=== PATIENT | male | born 1940 | race Caucasian/White ===

== ENCOUNTER 2017-10-12 12:00 | Outpatient (RCR) | payer MEDICARE, SELFPAY ==
--- NOTE | 2017-08-27 09:59 | HP.PTEVAL ---
Patient's Visit Information MAYRA DIETZ is a 77 year old M referred to Physical Therapy by LORENZO Guthrie with a diagnosis of debility, intracranial hemmorhage. Date of Evaluation: 08/27/17 Physical Therapist: Polo Bedolla DPT, OC - Visit Plan Frequency: 3x /Week Duration: 4-6 Weeks Plan: 3x/week for 3-6 weeks for. 1. foam balance and functional weight shift. 2. golf swing. 3. VOR and gait with head movements. 4. turns and bends - Subjective Subjective: Fall and hit L side of head. Operation to drain blood from brain late June, fall was early June. Out of hospital 3 weeks ago going to rehab in hospital and out one week ago. Been home since. No pain, no dizzy, no numbness. 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 Drop stuff with R hand and is R handed. R shoulder is arthritic and weak and hard to lift as it fatigues quickly. Balance is a major problem also. Doesn't trust self without cane. Uses it most of time. Didn't need cane before fall. Fall was in bedroom for unknown reason and was not a recurring problem. Will need speech to get the right word out. No weakness noted in legs but feels tired. Has steps to mancave and can do them with handrail. Enjoys golf and fishing when healthy. Basic ADLS mobility are OK. - Objective has pacemaker and defibrillator. Transfers I chair and bed. Gait is I with cane, somewhat unsteady without cane. Steps are reciprocal and I with rail. reflexes 2/3 patella and achilles. Sensation WNL in LE to gross light touch. Strength 4+/5 in LE. LE AROM WFL. UE AROM WFL except R shoulder ext rotation mildly limited and weak in ext rotation 3/5. coordination LE reciprocal tapping OK and heel to fernandez OK. Hamstring moderately tight. Gastroc min tight. - drop arm and - ext rotation lag test, no pain in shoulder, just very weak in ext rotation. - Balance Scores Functional Gait Assessment Score: 19 % Disability: 36.6700 CATSIB Score (Max score 120 seconds): 82 - Goals Goal 1:: 24/30 FGA to diminish fall risk. Goal Time Frame: 4-6 Weeks Goal 2:: Patient ready to swing golf club without imbalance. Goal Time Frame: 4-6 Weeks Goal 3:: I approp HEP to minimize fall risk. Goal Time Frame: 4-6 Weeks - Rehabilitation Potential Physical Therapy Diagnosis: imbalance. Ko has weakness in shoulder. IN discussion with OT, they will handle this while working on his UE. Rehabilitation Potential: Fair - Anticipated Interventions Patient/Client Instruction: Educate patient on: Condition, Plan of Care, Risk Factors For the Purpose of:: To improve safety with gait Therapeutic Exercise to Include: Balance training, Gait and locomotor training For the Purpose of:: To improve ability of physical actions for home/community/work/leisure, To improve safety Thank you for the opportunity to evaluate your patient. For Medicare and Medicare HMO plans, please review the plan of care and approve it. It will need to be FAXED BACK to us at [phone] for Medicare purposes. Please let me know if there are questions or concerns regarding this plan of care. Physician Signature: Date:
--- NOTE | 2017-08-27 14:00 | HP.OTEVAL_ITS ---
Patient's Visit Information MAYRA DIETZ is a 77 year old M, referred to Occupational Therapy by Krystal Smith , MICHIC,, with a diagnosis of fall-related intracranial hemorrhage s/pcraniotomy. Date of Evaluation: 08/27/17 Occupational Therapist: Ev Rahman - Subjective Subjective: Pt., Mayra, had fall july 03 and he was admitted into [facility]. present for evaluation and noted that while in hospital he has multiple seizures. HE was transferred up to [place] in which craniotomy was preformed to help decrease pressure on brain as is was continuing to swell. While in [place] [facility] after surgery he was intubated due to having a couple more seizures. He has not had seizure since per report and Pt. report. - Pain Right Shoulder 0 Pain Intensity Range: 0 - ROM Shoulder: flexion R 0-134, L 0-137; extentsion R 0-41, L 0-42; Forearm: WFL Wrist: WFL MP: WFL PIP: WFL DIP: WFL ROM Comments: abduction R 0-133, L 0-166 - Strength Shoulder: R 3+/5, L 4/5 Elbow: R 3+/5, L 4/5 Forearm: R 3+/5, L 4/5 Wrist: R 3+/5, L 4/5 Planer Setup Operator: R 75, L 79 Lateral Pinch: R 15, L 13 Tripod Pinch: R unable, L 12 Tip-to-Tip Pinch: R 6, L 8 - Sensation Thumb: R 3.22, L 3.22 Index: R 3.61, L 3.22 Middle: R3.22, L 2.83 Ring: R 3.84, L 3.61 Little: R 3.22, L 3.22 - In-Hand Manipulation Palm to Finger Translation: Severe - Right, Normal - Left, Mild - Left Shift: Moderate - Right, Mild - Left Rotation: Mild - Right, Normal - Left - Stroke Specific Quality of Life Total SS-QOL Score: 55 - DASH-Disabilities of Arm, Shoulder& Hand DASH Sum: 103 - Goals Goal:: Pt. to increase R sustain engineer strength by 15-20 lbs to promote increased strength in R dominant hand for ADl/IADls 4/5 trials 80% of the time by d/c. Goal:: Pt. to increase finger dexterity of R dominant hand through decreased time to that equal to L hand on 9 hole pegbaord test 2/3trials 75%of the time by d/c. Goal:: Pt. to demon understanding and completion of sensory re-integration program for R hand to increase touch sensation to that of L hand 4/5 trials 80% of the time by d/c. Goal:: Pt. to be mod I return to all ADL/IADLs 4/5 trials 8)5 of the time by d/ c. Goal:: Pt. to be mod I to write three sentences of choice to promote increased ( I) and ability to complete handwriting tasks 4/5 traisl 80% of the time by d/c. - Rehabilitation General Assessment: Pt., Mayra Walsh, presents with R UE weakness. He is R hand dominant and notes using R hand for most all tasks. He will recieve OT services to promote increasing B UE strength, sustain engineer and FMC strength, finger dexterity, B hand control and manipulation tasks to promote reutrning to PLOF and all ADl/IADls to increased (I) and safety with all daily tasks. Rehabilitation Potential: Excellent - Anticipated Interventions Anticipated Interventions: A/AAROM/PROM, Strengthening, Joint Protection/Energy Conservation, Ergonomic Education, Dynamic Sitting Balance, Fine Motor Coord/ Filiberto, Neuro Reeducation, Cognitive Skills, ADL Training, Caregiver Training, Home Program - Visit Plan Frequency: 2x /Week Duration: 4-6 Weeks TEXT: Thank you for the opportunity to evaluate your patient. For Medicare and Medicare HMO plans, please review the plan of care and approve it. It will need to be FAXED BACK to us at [phone] for Medicare purposes. Please let me know if there are questions or concerns regarding this plan of care. Physician Signature: Date:
--- NOTE | 2017-08-28 13:15 | HP.SP.AD ---
History - History Date of Eval: 08/27/17 Medical Diagnosis (from RX): debility s/p craniotomy Previous speech therapy: Yes Results: Pt received ST services in [facility] for primarily word finding deficits. Other Relevant Medical History/Diagnoses/Surgery: Pt had a fall which resulted in a craniectomy relieve pressure. Pt was at [facility], then [facility], back to [facility], and back to [facility]. Medications related to this diagnosis: Keppa, Tikosyn, Mexiletine, Atorvastatin, Bumex, Coreg, Isosorbide, Levothyroxine, Magox, Multivitamin, Ranexa, Ropinerole, Probiotic, aspirin, potassium Smoking Status: Never smoker Hx Smoking: No Hx Tobacco Use: No - Pain Is pain an issue with your current prescribed condition?: No - Personal Occupation: retired Right Hearing Abillity: Hard of Hearing Visual Assistive Devices: Glasses Patients Living Arrangements: With Significant Other Patient Allergies - Allergies Allergies amiodarone Allergy (Verified 07/04/17 16:12) Other meperidine [From Demerol] Allergy (Verified 07/04/17 16:12) Low blood pressure spironolactone Allergy (Verified 07/04/17 16:12) Nausea CLQT - CLQT CLQT Administered: Yes CLQT: Cognitive Linguistic Quick Test (CLQT) is a criterion - referenced assessment designed for adults between the ages of 18 and 89 with known or suspected neurological dysfuntions. The CLQT is to assess strength and weaknesses in five cognitive domains. Severity ratings are within normal limits, mild, moderate, severe deficits. The subtests are as follows: Date: 08/28/17 - Memory Memory: WNL - Language Language: WNL - Clock Drawing Severity Rating Clock Drawing Severity Rating: WNL - CLQT Comments Description Pt completed subtests of the assessment and will complete assessment during following session. Pt strengths were symbol cancellation, clock drawing, confrontation naming, personal information, and naming animals. Pt weaknesses were symbol design as pt made self-correction, recall of story, and naming words with /m/. Plan - Plan Plan: ST is warranted due to deficits in cognitive-linguistics specifically at this time memory, word finding, processing, and sequencing with additional deficits possible. - Frequency Frequency: 1x/Week Duration: 3 Months - Prognosis Prognosis: Excellent - Goal #1-5 Goal #1: Pt will use external vs internal memory strategies to address language deficits to enhance processing and recall of information. Prompts: Min Accuracy: 80% # Sessions: 3/4 Goal #2: Pt will utilize strategies (circumlocution) to assist with word finding for specific word or similar word for functional speech and joke telling. Prompts: Min Accuracy: 80% # Sessions: 3/4 Goal #3: Pt will sequence at least 4 steps in activites including joke telling for increased quality of life. Prompts: Min Accuracy: 80% # Sessions: 3/4 Goal #4: Pt will complete additional cognitive-linguistic assessments for goal addition or modification. G Codes - Type of Therapy Type of Therapy: Speech-Language Pathology - Spoken Language Expression Spoken Language Expression Current: CJ - 20-39% Spoken Language Expression Goal: CI - 1-19% Education - Patient has Indicated that the Following Identified Educational Needs: Cognitively Impaired - Patient Instruction Patient Education: Treatment Plan, Goals Person Taught: Patient, Significant Other Teaching Method: Discussion, Demonstration Response to teaching: Verbalize understanding, Has Prior Knowledge
--- NOTE | 2017-09-14 12:26 | HP.PTREVAL_ITS ---
Krystal Smith, CLARI-C, It has been my pleasure to treat MAYRA DIETZ over the last 10 visits for debility, intracranial hemmorhage. Please see the progress note below for an update on the physical therapy plan of care! Subjective: A lot better balance. Able to do things. Lifting utensils easier. No trouble anymore with steps. Basic ADLs are good. Able to swing gently at home a golf club. Activities are close to normal. Walking at home without cane , getting out of chair is still challenging at times. Cane is used stillaout and about as security. Wants to keep going with PT for balance. Stepping over items is still challenging. Objective/Function: foam balance ec still tough at 4 seconds. Golf swing is better but lacks weight shift on backswing adn is slow. FGA is +5 and improving nicely. VOR walking is going the right way. OVERALL MUCH IMPROVED BUT STILLS OME WORK TO DO ON UPPER LEVEL BALANCE AND WEIGHT SHIFTS. Plan Plan: 3x/week for 2-3 for. 1. foam balance. 2. wweight shifts functional with golf swing and step overs as well as narrow VENTURA. Progress to HEP. Continue steps and stand from low surface for balance and strength. Goals Goal 1:: FGA to diminish fall risk. Goal Time Frame: 4-6 Weeks Goal Progress: Goal Met Goal 2:: Patient ready to swing golf club without imbalance. Goal Time Frame: 4-6 Weeks Goal Progress: Progressing Goal 3:: I approp HEP to minimize fall risk. Goal Time Frame: 4-6 Weeks Goal Progress: Goal Met Goal 4:: FGA Goal Time Frame: 2-4 Weeks Goal Progress: NEW GOAL Goal 5:: Swing golf club in basement iwthout hesitation Goal Time Frame: 2-4 Weeks Goal Progress: NEW GOAL Anticipated Interventions Patient/Client Instruction: Educate patient on: Condition, Plan of Care, Risk Factors For the Purpose of:: To improve safety with gait Therapeutic Exercise to Include: Balance training, Gait and locomotor training For the Purpose of:: To improve ability of physical actions for home/community/ work/leisure, To improve safety Please do not hesitate to contact me at [phone] by phone or Fax: if you have questions or concerns regarding this new plan of care! Sincerely, Polo Bedolla, DPT, OC
--- NOTE | 2017-09-21 11:58 | HP.OTDCSUM_ITS ---
HP - OT D/C Summary It has been my pleasure to treat MAYRA DIETZ under orders from LORENZO Guthrie , for the diagnosis of fall-related intracranial hemorrhage s/pcraniotomy for a total of 8 visit(s). Please see the following information for a summary of their discharge status. - Objective Objective/Function: Pt. progressing towards goals. His ROM for shoulder is as follows: flexion R 0-135, L 0-148; extension R 0-48, L 0-60; abduction R 0-135, L 0-155. Pt. complete strength assessment of B UE scoring 4/5 on MMT. Additional strength assessments are as follows: business systems developer R 85, L 75; lateral R 15, L 15; three jaw R 13, L 14; tip pinch R 9, L 10. Sensation testing completed for touch on monofilament test R thumb-5th fingers 3.22; L thumb-5th fingers: 2nd 2.83, 3rd 2.83, and thumb, 4th, and 5th 3.22. He is progressing towards goals and will continue to progress with HEP. - Goals Patient Goals: Regain Mobility, Regain Strength, Improve Fine Motor Skills, Use Hand/Wrist/Arm Normally Again, Increase ROM, Be More Independent in ADLS, Improve Visual/Perceptual Skills, Resume Former Household Responsibilities ( Cooking,Cleaning,Yard, etc.), Resume Hobbies Goal:: Pt. to increase R business systems developer strength by 15-20 lbs to promote increased strength in R dominant hand for ADl/IADls 4/5 trials 80% of the time by d/c. Goal:: Pt. to increase finger dexterity of R dominant hand through decreased time to that equal to L hand on 9 hole pegbaord test 2/3trials 75%of the time by d/c. Goal:: Pt. to demo understanding and completion of sensory re-integration program for R hand to increase touch sensation to that of L hand 4/5 trials 80% of the time by d/c. Goal:: Pt. to be mod I to return to all ADL/IADLs 4/5 trials 80% of the time by d/c. Goal:: Pt. to be mod I to write three sentences of choice to promote increased ( I) and ability to complete handwriting tasks 4/5 traisl 80% of the time by d/c. - Plan Plan: Pt. will be d/c'd today. He is to continue HEP and add in additional exercises for shoulder. He is to call with questions concerns. - D/C Information If there are questions or concerns regarding this patient's occupational therapy , please fell free to call me at [phone]. Thank you for the referral of this patient. Sincerely, Ev Rahman
--- NOTE | 2017-09-24 14:24 | HP.SP.DC ---
ST Discharge Summary - Discharged: Discharge: Dong Ghosh is discharged from outpatient speech-language therapy effective 09/24/2017. Mr. Ghosh attended his initial evaluation followed by four therapy sessions focusing on functional internal and external memory strategies and word-finding strategies. He is able to effectively demonstrate memory and anomia strategies and reports no cognitive-linguistic issues that are affecting his quality of life. Please reconsult as necessary. G-Codes: G9162 CI. G9163 CI. G9164 CI
--- NOTE | 2017-10-12 12:54 | HP.PTDCSUM_ITS ---
HP - PT D/C Summary It has been my pleasure to treat MAYRA DIETZ under orders from MICHI GuthrieC , for the diagnosis of debility, intracranial hemmorhage for a total of 19 visit(s). Discharge Date: 10/12/17 Please see the following information for a summary of their discharge status. - Subjective Subjective: Does not feeling any changes to strength. Moves around the house better without cane 85% of time. No falls, no unsteadiness. Activities are normal. Making golf clubs without a problem. Steps are good. Sleep is good. Doing ex at home daily. - Objective Objective/Function: Met goals and above average on FGA. Walks well and I with HEP. Will also continue in gym here at . - Goals Goal 1:: FGA to diminish fall risk. Goal Progress: Goal Met Goal 2:: Patient ready to swing golf club without imbalance. Goal Progress: Goal Met Goal 3:: I approp HEP to minimize fall risk. Goal Progress: Goal Met Goal 4:: FGA Goal Progress: Goal Met Goal 5:: Swing golf club in basement iwthout hesitation Goal Progress: Goal Met - Plan Plan: D/C - D/C Information Discharge Comments: D/C to HEP, doing well. If there are questions or concerns regarding this patient's physical therapy, please feel free to call me at [phone]. Thank you for the referral of this patient. Sincerely, Polo Bedolla, DPT, OC
== END 2017-10-12 19:00 | disposition home or self-care (01) ==
LOC: PT 12:00
PROVIDERS: Family Provider Internal Medicine; PCP Internal Medicine; Visit Provider Nurse Practitioner Acute Care
DX: R53.81 Other malaise (principal); S06.309D Unspecified focal traumatic brain injury with loss of consciousness of unspecified duration, subsequent encounter; W19.XXXD Unspecified fall, subsequent encounter; Z98.890 Other specified postprocedural states; R47.89 Other speech disturbances
CPT/HCPCS: 92507 ×4; 92523; 97110 ×15; 97116; 97140; 97162; 97166 ×2; 97530 ×9; G8978; G8979; G8980; G8987; G8988; G9162; G9163

== ENCOUNTER 2017-12-24 14:00 | Outpatient (RCR) | payer MEDICARE, SELFPAY ==
--- NOTE | 2017-11-30 10:52 | HP.PTEVAL_ITS ---
Patient's Visit Information MAYRA DIETZ is a 77 year old M referred to Physical Therapy by Anabella ESPAÑA with a diagnosis of h/o subdural hematoma. Date of Evaluation: 11/30/17 Physical Therapist: Polo Bedolla DPT, OC - Visit Plan Frequency: 3x /Week Duration: 2-4 Weeks Plan: has pacemaker. 3x/week for 3-4 weeks for. foam ex. steps for volume. conditioning on Nustep. gait with VOR and bending and narrow VENTURA. - Subjective Subjective: Got flu three weeks ago and got weak. Was doing great prior to that. Now it is hard to go down steps without hanging on to both rails. No pain. Sleep is good. Feels weak on steps and after a simple job at home. Steps wear him out to get to the [employer] Normally works out at [employer] with balance ex. Feels like balance is worse now. Standing in place and is weaving now. Feels like he needs to hold on. No falls. Has to catch himself now. Uses cane away from home now but did not need prior. Used cane after craniotomy last year in June but did not need it regularly. Basic ADLs are OK, they just wear him out. Bending over makes him off balance. activities include working on golf swing and fishing gear but limited volume. - Objective Walks I with cane in r UE, transfers I in and out of chair. Steps require railing and very SOB after two flights. HS and gastroc min tight. reflexes LE 2/3 patella and achilles. Coordination LE min deficitis to reciprocal. Sensation seems diminished distally consistent with neuropathy to gross light touch. Strength is 4+/5 in LE. VOR walking shows mild deficits. Foam stance is hard and ec is 2 seconds. - Balance Scores Functional Gait Assessment Score: 23 % Disability: 23.3400 CATSIB Score (Max score 120 seconds): 82 - Goals Goal 1:: 2 flights steps without SOB Goal Time Frame: 2-4 Weeks Goal 2:: Balance back to 27/30 to minimize fall risk Goal Time Frame: 2-4 Weeks Goal 3:: Pt feel back to normal after sickness with balance. Goal Time Frame: 2-4 Weeks - Rehabilitation Potential Physical Therapy Diagnosis: balance deficits after recent sickness. - Anticipated Interventions Patient/Client Instruction: Educate patient on: Condition For the Purpose of:: To improve ability of physical actions for home/community/ work/leisure Therapeutic Exercise to Include: Endurance training, Balance training For the Purpose of:: To improve balance, To improve safety Thank you for the opportunity to evaluate your patient. For Medicare and Medicare HMO plans, please review the plan of care and approve it. It will need to be FAXED BACK to us at [phone] for Medicare purposes. Please let me know if there are questions or concerns regarding this plan of care. Physician Signature: Date:
--- NOTE | 2017-12-24 14:56 | HP.PTDCSUM_ITS ---
HP - PT D/C Summary It has been my pleasure to treat MAYRA DIETZ under orders from DR.DBONEZ Cassi for the diagnosis of h/o subdural hematoma for a total of 10 visit(s) . Discharge Date: 12/24/17 Please see the following information for a summary of their discharge status. - Subjective Subjective: Ready to be done, Feels good. Can drive and work out on own. Balance is better and no falls lately. Stronger. Has a bad day here and there but otherwise is good. Ready to work out on own. - Overall Improvement % Improvement: 85 - Objective Objective/Function: +2 on FGA. Steps reciprocal with one rail without fatigue after. - Goals Goal 1:: 2 flights steps without SOB Goal Progress: Goal Met Goal 2:: Balance back to to minimize fall risk Goal Progress: Goal Met Goal 3:: Pt feel back to normal after sickness with balance. Goal Progress: Progressing - Plan Plan: D/C to gym ex program. - D/C Information Discharge Comments: Pt doing well and will continue via I gym program. If there are questions or concerns regarding this patient's physical therapy, please feel free to call me at [phone]. Thank you for the referral of this patient. Sincerely, Polo Bedolla, DPT, OC
== END 2017-12-24 19:00 | disposition home or self-care (01) ==
LOC: PT 14:00
PROVIDERS: Family Provider Internal Medicine; PCP Internal Medicine; Visit Provider Internal Medicine
DX: I62.00 Nontraumatic subdural hemorrhage, unspecified (principal)
CPT/HCPCS: 97110; 97161; 97530

== ENCOUNTER 2018-01-03 10:59 | Outpatient (RCR) | payer MEDICARE, SELFPAY ==
--- NOTE | 2018-01-03 11:34 | HP.PTEVAL_ITS ---
Patient's Visit Information MAYRA DIETZ is a 77 year old M referred to Physical Therapy by MICHI Guthrie NP.NEO with a diagnosis of unsteady. Date of Evaluation: 01/03/18 Physical Therapist: Polo Bedolla, LINUS, OC - Visit Plan Plan: Pt doesn not want to undergo further balance or strength at this time as he can and will continue on his own as planned. He has no falls nor does he feel unsteady. 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 He understands doctors office has written a script for that and is awaiting their referral phone call. Otherwise he will continue ex as planned in previous discharge summary. - Subjective Subjective: Dizzyness and balance the same as last week. Not sure why he is here. Saw both doctors last week and said he was fine. Will workout at [employer] adn continue HEP of balance ex as taught to him. Does nto wish to have balance PT. Thought he was having security patrol driver evaluation. No other major changes since d/c last week. No falls, no dizzyness. Feels steady and wishes to wrok on it I as discussed in D/C summary last week. - Objective No dizzyness with oculomotor check. Balance is as it was last week at D/C - Balance Scores Functional Gait Assessment Score: 25 % Disability: 16.6700 CATSIB Score (Max score 120 seconds): 94 - Anticipated Interventions Thank you for the opportunity to evaluate your patient. For Medicare and Medicare HMO plans, please review the plan of care and approve it. It will need to be FAXED BACK to us at [phone] for Medicare purposes. Please let me know if there are questions or concerns regarding this plan of care. Physician Signature: Date:
== END 2018-01-03 19:00 | disposition home or self-care (01) ==
LOC: PT 10:59
PROVIDERS: Family Provider Internal Medicine; PCP Internal Medicine; Visit Provider Nurse Practitioner Acute Care
DX: R42 Dizziness and giddiness (principal); R26.89 Other abnormalities of gait and mobility

== ENCOUNTER → 2018-01-09 11:39 | Outpatient (CLI) | payer MEDICARE, SELFPAY ==
--- NOTE | 2018-01-09 11:42 | RAD_ITS ---
STUDY: X-RAY CHEST REASON FOR EXAM: Male, 77 years old. Shortness of breath. TECHNIQUE: PA and lateral views of the chest. COMPARISON: Comparison is made with prior examination dated November 11, 2017. FINDINGS: Stable mild increased linear markings at the lung bases suggestive of scarring. There is no demonstrated pleural abnormality. Sternal cerclage wires and vascular clips are present from a prior sternotomy and coronary artery bypass graft procedure (CABG). A left-sided ICD is seen. Normal mediastinum and jessy. Normal visualized pulmonary arteries. There is atherosclerotic calcification of the aortic arch with tortuosity. There is demineralization of the osseous structures. Normal visualized ribs, clavicles, and shoulders. There is no demonstrated abnormality of the visualized soft tissue structures of the upper abdomen. RAD/Chest PA and Lateral IMPRESSION: No acute abnormality is seen. Electronically Signed: Louis Leahy MD at 12:59 EDT Tel [phone], Service support ,
== END ==
PROVIDERS: Family Provider Internal Medicine; PCP Internal Medicine; Visit Provider Internal Medicine
DX: R06.02 Shortness of breath (principal)
CPT/HCPCS: 71046

== ENCOUNTER 2018-01-18 11:28 | Observation (INO) | payer MEDICARE, SELFPAY ==
[2018-01-18] VITALS (10 sets, daily range): BP systolic 118–144; BP diastolic 70–87; PULSE 62–81; RESP 16–18; TEMP 36.6–36.8; O2SAT 92–97; BMI 29.2; BMI 29.3; BMI 27.7
--- NOTE | 2018-01-18 12:42 | EKG12_ITS ---
Test Reason : CP Blood Pressure : / mmHG Vent. Rate : 063 BPM Atrial Rate : 258 BPM P-R Int : 172 ms QRS Dur : 170 ms QT Int : 558 ms P-R-T Axes : 079 -70 114 degrees QTc Int : 571 ms AV dual-paced rhythm Biventricular pacemaker detected Abnormal ECG Confirmed by AYO ROGERS, CORRINA ([id number]), gastroenterology technician YANG BARR ([id number]) on 01/22/2018 1:34:54 PM Referred By: AUBREE Confirmed By:CORRINA ROLLINS MD
--- NOTE | 2018-01-18 12:42 | RAD_ITS ---
STUDY: X-RAY CHEST REASON FOR EXAM: Male, 77 years old. CHEST PAIN, DIZZINESS, HIGH BLOOD SUGAR TECHNIQUE: Single AP portable view of the chest. COMPARISON: None. FINDINGS: Pacemaker is seen on the left side. The lungs are clear and expanded. There is no demonstrated pleural abnormality. Normal size heart. Normal mediastinum and jessy. Normal visualized pulmonary arteries. Normal visualized aortic arch and descending thoracic aorta. There are diffuse degenerative changes of the visualized thoracic spine. There is degenerative osteoarthritis of the bilateral shoulders. There is no demonstrated abnormality of the visualized soft tissue structures of the upper abdomen. RAD/Chest 1 View (Portable) IMPRESSION: Degenerative changes, as described above. No demonstrated acute cardiopulmonary process. Electronically Signed: Renae Coleman MD at 13:15 EDT Tel , Service support ,
[2018-01-18] MEDS: Aspirin 81 MG TAB.CHEW 324 MG PO (12:49)
[2018-01-18 12:58] LABS: Absolute Lymphocyte Count 1.11 X10^3/ul (0.83-4.51); Absolute Neutrophil Count 8.1 X10^3/uL (2.0-7.7); Hematocrit 40.4 % (40-54); Hemoglobin 14.1 g/dl (13.0-16.5); Lymphocyte # 1.11 X10^3/ul (4.0); Lymphocyte % 11.5 % (19-41); Mean Corp Hgb Conc 34.9 g/gl (32-36); Mean Corpuscular Hgb 32.6 pg (27.0-32.0); Mean Corpuscular Volume 93.5 fL (80-94); Mean Platelet Vol. 9.2 fl (6.2-12.0); Monocyte# 0.44 X10^3/uL; Monocyte% 4.6 % (0-10); Neutrophil # 8.07 X10^3/uL (2.7-7.7); Neutrophil % 83.4 % (47-70); Platelet Count 158 K/mm3 (150-450); RBC Distribution Width CV 13.7 % (11.6-14.6); RBC Distribution Width SD 46.4 fl (35.1-43.9); Red Blood Count 4.32 M/mm3 (4.6-6.2); White Blood Count 9.7 K/mm3 (4.4-11.0)
[2018-01-18 12:59] LABS: POSITIVE COUNT NO; POSITIVE DIFFERENTIAL NO; POSITIVE MORPHOLOGY NO
[2018-01-18 13:06] LABS: Bedside Glucose 381 mg/dL (70-110)
[2018-01-18 13:14] LABS: Anion Gap 9 (5-15); BUN 36 mg/dL (7-18); BUN/Creat Ratio 21.1 RATIO (10-20); Calcium,Total 8.6 mg/dL (8.5-10.1); Chloride 90 mmol/L (98-107); Creatinine, Serum 1.71 mg/dL (0.70-1.30); EST Glomerular Filtration Rate 41 mL/min (>60); Est Glom Filt Rate - Afr Amer 50 mL/min (>60); Estimated Creatinine Clearance 33.82 ml/min; Glucose 384 mg/dL (74-106); Potassium 3.9 mmol/L (3.5-5.1); Sodium Level 129 mmol/L (136-145)
[2018-01-18 13:24] LABS: BNP,B-Type NATRIURETIC PEPTIDE 386.1 pg/mL (0-100)
--- NOTE | 2018-01-18 14:21 | NURSING ---
CALLED DR NÚÑEZ ABOUT PATIENT FOR DR LEMON
--- NOTE | 2018-01-18 14:44 | NURSING ---
DR NÚÑEZ PAGED PYTHON DJANGO DEVELOPER
--- NOTE | 2018-01-18 14:59 | NURSING ---
DR NÚÑEZ FOR DR LEMON
--- NOTE | 2018-01-18 15:13 | NURSING ---
DR LR CALLED BACK
--- NOTE | 2018-01-18 15:18 | ED.VISSUMM ---
- ER Visit Summary Date of Service: 01/18/18 Chief Complaint: Bronchitis History of Present Illness: The patient is a 77 M with cough and sputum for 3 weeks. His PCP has been managing this and he has been on Cefdinir and doxycycline with minimal improvement. His weights have been fluctuating and they have been adjusting his diuretic. He has a history of CHF. He also has a history of type 2 diabetes and is on oral medication for this. His sugars have been in the upper 400s. He feels weak and tired. Patient has a history of V. tach and has a defibrillator. 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 Physical Examination: Patient is afebrile and vital signs are unremarkable. He appears nontoxic and in no acute distress. Heart is regular. Lungs are clear. Abdomen is soft. Skin appears normal alert and oriented. No focal neurologic abnormalities grossly. Test Results: EKG showed a paced rhythm at a rate of 63. Chest x-ray showed no acute findings. CBC normal. Sodium 129, chloride 90, glucose 384, BUN 36, creatinine 1.71. Troponin normal. BNP 386. Acetone negative. Emergency Department Course and Treatment: Patient has multiple comorbidities. He has bronchitis symptoms. His outpatient management has been difficult Workup shows a sugar of 384. Acetone negative. Cardiac testing appears normal. BNP is stable for him at 386. Creatinine is also stable from at 1.7. Patient will need management of his glucose. He will also likely need fluids. He has a history of CKD and CHF. He will need close monitoring. I spoke with his PCP who said that he could benefit from inpatient care. I spoke with the hospitalist who will admit for observation. Treatment Plan: As above Disposition: Admission Impression: 1. Hyperglycemia 2. CHF 3. CKD This note was generated with [employer] software. It may contain incorrect words, spelling, and punctuation that were not noted in review of the chart prior to signing ED Disposition - Plan for ED Patient: Chief Complaint: Dizziness Referrals: Anabella Lomax MD [Primary Care Provider] -
--- NOTE | 2018-01-18 15:22 | ED.DCSUM_ITS ---
- ER Visit Summary Date of Service: 01/18/18 Chief Complaint: Bronchitis History of Present Illness: The patient is a 77 M with cough and sputum for 3 weeks. His PCP has been managing this and he has been on Cefdinir and doxycycline with minimal improvement. His weights have been fluctuating and they have been adjusting his diuretic. He has a history of CHF. He also has a history of type 2 diabetes and is on oral medication for this. His sugars have been in the upper 400s. He feels weak and tired. Patient has a history of V. tach and has a defibrillator. 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 Physical Examination: Patient is afebrile and vital signs are unremarkable. He appears nontoxic and in no acute distress. Heart is regular. Lungs are clear. Abdomen is soft. Skin appears normal alert and oriented. No focal neurologic abnormalities grossly. Test Results: EKG showed a paced rhythm at a rate of 63. Chest x-ray showed no acute findings. CBC normal. Sodium 129, chloride 90, glucose 384, BUN 36, creatinine 1.71. Troponin normal. BNP 386. Acetone negative. Emergency Department Course and Treatment: Patient has multiple comorbidities. He has bronchitis symptoms. His outpatient management has been difficult Workup shows a sugar of 384. Acetone negative. Cardiac testing appears normal. BNP is stable for him at 386. Creatinine is also stable from at 1.7. Patient will need management of his glucose. He will also likely need fluids. He has a history of CKD and CHF. He will need close monitoring. I spoke with his PCP who said that he could benefit from inpatient care. I spoke with the hospitalist who will admit for observation. Treatment Plan: As above Disposition: Admission Impression: 1. Hyperglycemia 2. CHF 3. CKD This note was generated with [employer] software. It may contain incorrect words, spelling, and punctuation that were not noted in review of the chart prior to signing ED Disposition - Plan for ED Patient: Chief Complaint: Dizziness Referrals: Anabella Lomax MD [Primary Care Provider] -
--- NOTE | 2018-01-18 15:31 | NURSING ---
121 OBS CHF, WEAKNESS [place]
[2018-01-18 17:20] LABS: Bedside Glucose 442 mg/dL (70-110)
--- NOTE | 2018-01-18 18:39 | ECHOCS_ITS ---
Reason For Study: Congenital Heart Disease Procedure This was a 2D Doppler, Color Flow transthoracic echocardiogram. Exam performed portable in patient room. Left Ventricle Severely dilated left ventricle. The estimated ejection fraction is 30 %. Moderately severe segmental systolic dysfunction (see wall motion). Transmitral diastolic flow velocities suggest moderate (stage 2) diastolic dysfunction (pseudonormal pattern). Infero-Basal: Akinetic. Posterior- Basal: Akinetic. There is moderate to severe global hypokinesis of the left ventricle. Mid- Posterior: Akinetic. Mid-Inferior: Akinetic. Right Ventricle Normal RV size. ICD or pacer leads identified within the right ventricle. Normal systolic function. Atria The left atrium is moderately enlarged. Normal right atrium. Mitral Valve Normal mitral valve. Tricuspid Valve Normal tricuspid valve. Mild to moderate (1-2+) tricuspid valve insufficiency. Pulmonary artery systolic pressure is 28 mmHg. Aortic Valve Trisinus/trileaflet aortic valve. Pulmonic Valve Normal pulmonic valve. Great Vessels Normal aortic root. The pulmonary artery is normal size. Normal inferior vena cava. Pericardium/Pleural No pericardial effusion. Medication Definity0.4ml given slow IV push to enhance endocardial definition. MMode/2D Measurements & Calculations LVIDd: 6.3 cm IVSd: 1.1 cm Ao root diam: 3.5 cm LVIDs: 5.4 cm LVPWd: 1.1 cm LA dimension: 5.4 cm RVDd: 3.5 cm FS: 13.5 % LAV(MOD-bp): 77.2 ml LA A4 area: 24.9 cm2 RA A4 area: 14.7 cm2 LAV(MOD-bp) Indexed: 40.9 ml/m2 LAV(MOD-sp2): 75.7 ml LAV(MOD-sp4): 75.2 ml Doppler Measurements & Calculations MV E max wilfredo: 86.7 cm/sec Lat Peak E' Wilfredo: 6.0 cm/sec Med Peak E' Wilfredo: 3.4 cm/sec MV A max wilfredo: 87.7 cm/sec E/E' lat: 14.5 E/E' med: 25.4 MV E/A: 0.99 Ao V2 max: 131.8 cm/sec LV V1 max: 99.8 cm/sec PA V2 max: 101.5 cm/sec Ao max P.0 mmHg LV V1 max P.0 mmHg Ao V2 mean: 97.8 cm/sec Ao mean P.2 mmHg Ao V2 VTI: 27.4 cm TR max wilfredo: 244.5 cm/sec TR max P.9 mmHg Interpretation Summary Severely dilated left ventricle. The estimated ejection fraction is 30 %. Moderately severe segmental systolic dysfunction (see wall motion). Transmitral diastolic flow velocities suggest moderate (stage 2) diastolic dysfunction (pseudonormal pattern). Contrast injection was performed. Compared to prior study, there is no significant change. Ordering Physician: Marcin Franco Referring Physician: Anabella Lomax Performed By: Kristin Pascal, FAWN, RVT
--- NOTE | 2018-01-18 18:41 | HP.PCM_ITS ---
Problem List (1) Subdural hematoma Status: Resolved (2) Angina pectoris Status: Chronic (3) Atherosclerotic heart disease of [place] coronary artery without angina pectoris Status: Chronic Comment: CABG 1988; Reoperation CABG x3 SVG to LAD, SVG to Rt PDA, Radial artery to OM-2 10/08/02; VT ablation @[facility] 01/03/17 C 03/10/2016 (4) CAD (coronary artery disease) Status: Chronic Qualifiers: Coronary Disease-Associated Artery/Lesion type: bypass graft [place] vs. transplanted heart: [place] heart (5) CKD (chronic kidney disease), stage II Status: Chronic (6) Cardiomyopathy, ischemic Status: Chronic History of Present Illness Date of Admission: 01/18/18 Chief Complaint: Cough, Shortness of breath and dizziness The patient is a 77 year old M past medical history of coronary artery disease , XOCHITL, DM type II , CKD and congestive heart failure and presents to the emergency room by the recommendation of his primary care doctor due to cough, shortness of breath and dizziness. The patient has been treated for bronchitis for the past 3 weeks and he is not getting better. He is currently on Omnicef, he has also taken prednisone his blood sugar high up to 400s. He is complaining of dizziness and shortness of breath but did not denies any chest pain palpitations or rapid heartbeat. His chest X-ray did not reveal pneumonia or congestive heart failure. His BNP is mildly elevated. He was to be discharged from the emergency room and follow-up with the primary care doctor but his PCP did not feel comfortable with this patient go home he has failed outpatient management, so we are placing him in the hospital for further management. Past Medical History Past Medical History (Chronic Problems): Chronic Problems (Last Reviewed 11/14/17 @ 11:44 by Ana Cristina Cobos) HLD (hyperlipidemia) (Chronic) Non-ST elevation (NSTEMI) myocardial infarction (Chronic) Angina pectoris (Chronic) CAD (coronary artery disease) (Chronic) Edema (Chronic) Dyspnea (Chronic) Renal disease (Chronic) Fatigue (Chronic) XOCHITL (obstructive sleep apnea) (Chronic) Diabetes mellitus type 2, noninsulin dependent (Chronic) Old myocardial infarction (Chronic) Long-term use of high-risk medication (Chronic) Chronic renal failure (Chronic) Cardiac murmur (Chronic) Hypokalemia (Chronic) Atherosclerotic heart disease of [place] coronary artery without angina pectoris (Chronic) CABG 1988; Reoperation CABG x3 SVG to LAD, SVG to Rt PDA, Radial artery to OM- 2 10/08/02; VT ablation @[facility] 01/03/17 [facility] 03/10/2016 Ventricular tachycardia (paroxysmal) (Chronic) ICD (implantable cardioverter-defibrillator) in place (Chronic ~11/2001) Implant 12/10/2001 ICD replacement 06/10/2009, 06/05/2014, Systolic CHF, chronic (Chronic) Cardiomyopathy, ischemic (Chronic) CKD (chronic kidney disease), stage II (Chronic) Type II diabetes mellitus, uncontrolled (Chronic) Esophageal reflux (Chronic) HLD (hyperlipidemia) (Chronic) HTN (hypertension) (Chronic) Hypothyroidism (Chronic) Sleep apnea (Chronic) Allergies amiodarone Allergy (Verified 01/18/18 11:35) Other meperidine [From Demerol] Allergy (Verified 01/18/18 11:35) Low blood pressure spironolactone Allergy (Verified 01/18/18 11:35) Nausea simvastatin Adverse Reaction (Mild, Verified 01/18/18 11:35) Myalgias Home Medications: Ambulatory Orders Medication Instructions Recorded Isosorbide Mononitrate [Imdur] 60 mg PO BID 06/02/14 Nitroglycerin [Nitrostat] 0.4 mg SUBLINGUAL Q5M PRN 06/02/14 Ranolazine [Ranexa] 1,000 mg PO BID 06/02/14 Atorvastatin Calcium [Lipitor] 10 mg PO DAILY 08/20/14 Multivitamins,Therapeutic 1 tab PO DAILY 08/20/14 [Multivitamin] Dofetilide 250 mcg PO BID 03/14/17 Mexiletine [Mexitil] 150 mg PO BID 03/14/17 Magnesium Oxide [Magnesium] 400 mg PO DAILY 07/28/17 aspirin 81 mg tablet,delayed 81 mg PO DAILY 11/12/17 release bumetanide 1 mg tablet 1 mg PO BID 11/12/17 clonazepam 1 mg tablet 1 mg PO TID PRN 11/12/17 levetiracetam 1,000 mg tablet 1,500 mg PO BID tab 11/12/17 levothyroxine 100 mcg tablet 100 mcg PO DAILY tab 11/12/17 potassium chloride ER 20 mEq 20 meq PO MOWEFR tab 11/12/17 tablet,extended release(part/cryst) ropinirole 1 mg tablet 2 mg PO QHS tab 11/12/17 carvedilol 12.5 mg tablet 18.75 mg PO BID tab 11/14/17 clopidogrel 75 mg tablet 75 mg PO DAILY 11/14/17 metolazone 2.5 mg tablet 2.5 mg PO PRN PRN tab 11/14/17 Cefdinir [Cefdinir] 300 mg PO BID 01/18/18 L.acidoph,Paracasei, B.lactis 1 each PO DAILY 01/18/18 [Probiotic] Sitagliptin Phosphate [Januvia] 50 mg PO DAILY 01/18/18 Surgical History: cholecystectomy, coronary bypass surgery, - - ICD placement Psychiatric History: No pertinent psych hx Smoking Status: Former smoker - *Family History Paternal History Items: Diabetes, Heart Disease VTE Information - Inpt Only VTE Present on Admission: No VTE Mechan Device Prophylaxis: SCD's VTE Pharm Prophylaxis ordered?: Yes - Physical Exam General: Alert, Oriented x3 HEENT: Atraumatic Neck: Supple, No JVD Lungs: Wheezes Cardiovascular: Regular rate, Regular Rhythm, Normal S1, Normal S2 Abdomen: Bowel Sounds Present, Soft Extremities: No edema, Edema Neurological: Cranial nerves II-XII grossly intact, Motor Exam 5/5 strength throughout Vital Signs Temp Pulse Resp BP Pulse Ox 98.2 F 67 16 128/70 H 95 01/18/18 15:51 01/18/18 15:51 01/18/18 15:51 01/18/18 15:51 01/18/18 15:51 Oxygen Flow Rate (L/min) 2 Oxygen Delivery Method Nasal Cannula Weight: 80.3 kg Body Mass Index (BMI) 27.7 POC Glucose 01/18/18 17:12 POC Glucose 442 H Assessment/Plan 1. Acute bronchitis, failed outpatient management, the patient will be placed on IV steroids bronchodilators and will continue on his p.o. Omnicef. 2 chronic heart failure with incipient Acute exacerbation; will obtain echocardiogram the patient will be placed on gentle IV diuretics. 3. Stage III chronic kidney disease; his renal parameters are close to his baseline, will monitor closely and avoid potential nephrotoxic agents. 4. DM 2; Hyperglycemia worsened by steroids, the patient will be started on NovoLog [id number] mix will continue on his Januvia and we will place him on regular insulin sliding scale for glycemic spikes. We will obtain A1c. 5. CAD s/p CABG; continue his cardioprotective medications, he would benefit from further ischemic workup prior to discharge. 6. DVT prophylaxis with SCDs.
[2018-01-18 19:30] LABS: Thyroid Stim Hormone (TSH) 1.46 uIU/mL (0.358-3.74)
[2018-01-18] MEDS: Ranolazine 500 MG Tablet 1000 MG PO (21:46)
[2018-01-18] MEDS: Isosorbide Mononitrate 60 MG Tablet PO (21:46)
[2018-01-18] MEDS: levETIRAcetam 750 MG Tablet 1500 MG PO (21:46)
[2018-01-18] MEDS: Carvedilol 6.25 MG Tablet 18.75 MG PO (21:46)
[2018-01-18] MEDS: Mexiletine 150 MG Capsule PO (21:47)
[2018-01-18] MEDS: Pramipexole Di-HCl 1 MG Tablet PO (21:47)
[2018-01-18] MEDS: Dofetilide 250 MCG Capsule PO (21:47)
[2018-01-18] MEDS: Cefdinir 300 MG Capsule PO (22:20)
[2018-01-18 22:21] LABS: Bedside Glucose 359 mg/dL (70-110)
[2018-01-19] VITALS (13 sets, daily range): BP systolic 128–144; BP diastolic 70–82; PULSE 63–81; RESP 16–18; TEMP 36.5–36.9; O2SAT 90–94
[2018-01-19] MEDS: Ipratropium/Albuterol Sulfate 3 ML AMPUL.NEB INHALATION ×4 (01:04→18:52)
[2018-01-19 06:20] LABS: Absolute Lymphocyte Count 0.74 X10^3/ul (0.83-4.51); Absolute Neutrophil Count 10.5 X10^3/uL (2.0-7.7); Basophil# 0.01 X10^3/uL; Basophil% 0.1 % (0-1); Hematocrit 39.8 % (40-54); Lymphocyte # 0.74 X10^3/ul (4.0); Lymphocyte % 6.5 % (19-41); Mean Corp Hgb Conc 35.2 g/gl (32-36); Mean Corpuscular Hgb 32.9 pg (27.0-32.0); Mean Corpuscular Volume 93.6 fL (80-94); Mean Platelet Vol. 9.3 fl (6.2-12.0); Monocyte# 0.18 X10^3/uL; Monocyte% 1.6 % (0-10); Neutrophil # 10.48 X10^3/uL (2.7-7.7); Neutrophil % 91.4 % (47-70); Platelet Count 201 K/mm3 (150-450); RBC Distribution Width CV 13.3 % (11.6-14.6); RBC Distribution Width SD 44.7 fl (35.1-43.9); Red Blood Count 4.25 M/mm3 (4.6-6.2); White Blood Count 11.5 K/mm3 (4.4-11.0)
[2018-01-19 06:24] LABS: POSITIVE COUNT NO; POSITIVE DIFFERENTIAL NO; POSITIVE MORPHOLOGY NO
[2018-01-19] MEDS: Levothyroxine 100 MCG Tablet PO (06:33)
[2018-01-19 06:53] LABS: Anion Gap 11 (5-15); BUN 40 mg/dL (7-18); BUN/Creat Ratio 23.5 RATIO (10-20); Calcium,Total 8.3 mg/dL (8.5-10.1); Chloride 92 mmol/L (98-107); EST Glomerular Filtration Rate 42 mL/min (>60); Est Glom Filt Rate - Afr Amer 50 mL/min (>60); Estimated Creatinine Clearance 34.02 ml/min; Glucose 341 mg/dL (74-106); Potassium 4.2 mmol/L (3.5-5.1); Sodium Level 134 mmol/L (136-145)
[2018-01-19 06:55] LABS: Bedside Glucose 376 mg/dL (70-110)
[2018-01-19] MEDS: Budesonide Respules 0.5 MG/2 ML AMPUL.NEB. INHALATION ×2 (06:57→18:52)
[2018-01-19] MEDS: Insulin NPH Human 100 UNITS/ML PEN 10 UNITS SC (09:27)
[2018-01-19] MEDS: Aspirin E.C. 81 MG Tablet PO (09:30)
[2018-01-19] MEDS: Magnesium Oxide 400 MG Tablet PO (09:30)
[2018-01-19] MEDS: Furosemide 40 MG/4 ML Vial IV ×2 (09:30→18:22)
[2018-01-19] MEDS: Dofetilide 250 MCG Capsule PO ×2 (09:30→21:16)
[2018-01-19] MEDS: LINAGLIPTIN 5 MG TABLET PO (09:30)
[2018-01-19] MEDS: Clopidogrel Bisulfate 75 MG Tablet PO (09:31)
[2018-01-19] MEDS: Cefdinir 300 MG Capsule PO ×2 (09:31→21:15)
[2018-01-19] MEDS: Isosorbide Mononitrate 60 MG Tablet PO ×2 (09:31→21:12)
[2018-01-19] MEDS: Mexiletine 150 MG Capsule PO ×2 (09:31→21:13)
[2018-01-19] MEDS: levETIRAcetam 750 MG Tablet 1500 MG PO ×2 (09:31→21:12)
[2018-01-19] MEDS: Carvedilol 6.25 MG Tablet 18.75 MG PO ×2 (09:31→21:11)
[2018-01-19] MEDS: Ranolazine 500 MG Tablet 1000 MG PO ×2 (09:33→21:15)
[2018-01-19] MEDS: Atorvastatin Calcium 10 MG Tablet PO (09:40)
--- NOTE | 2018-01-19 11:28 | PN_ITS ---
Vitals/I&O's: Vital Signs Temp Pulse Resp BP Pulse Ox 97.8 F 73 16 144/75 H 92 01/19/18 09:10 01/19/18 09:10 01/19/18 09:10 01/19/18 09:10 01/19/18 09:10 Oxygen Flow Rate (L/min) 2 Oxygen Delivery Method Room Air Weight: 79.9 kg Body Mass Index (BMI) 27.7 Intake and Output for Last 24 Hours 01/17/18 01/18/18 01/19/18 23:59 23:59 23:59 Intake Total 240 / 240 240 / 240 Balance 240 / 240 240 / 240 Laboratory Results 01/18/18 17:12: POC Glucose 442 H 01/18/18 21:39: POC Glucose 359 H 01/19/18 05:55: WBC 11.5 H, RBC 4.25 L, Hgb 14.0, Hct 39.8 L, MCV 93.6, MCH 32.9 H, MCHC 35.2, RDW 13.3, RDW Differential 44.7 H, Plt Count 201, MPV 9.3, Immature Gran % (Auto) 0.400, Neut % (Auto) 91.4 H, Lymph % (Auto) 6.5 L, [place] % (Auto) 1.6, Eos % (Auto) 0.0, Baso % (Auto) 0.1, Absolute Neuts (auto) 10.5 H , Absolute Lymphs (auto) 0.74 L, Total Counted Not Reportable 01/19/18 05:55: Sodium 134 L, Potassium 4.2, Chloride 92 L, Carbon Dioxide 31.0 , Anion Gap 11, BUN 40 H, Creatinine 1.70 H, Estim Creat Clear Calc 34.02, Est GFR (MDRD) Af Amer 50 L, Est GFR (MDRD) Non-Af 42 L, BUN/Creatinine Ratio 23.5 H , Glucose 341 H, Calcium 8.3 L 01/19/18 06:39: POC Glucose 376 H Current Medications Albuterol/Ipratropium (Duoneb) 3 ml INHALATION Q6H.RT [facility] Last Admin: 01/19/18 06:57 Dose: 3 ml Aspirin (Ecotrin) 81 mg PO DAILY@0800 [facility] Last Admin: 01/19/18 09:30 Dose: 81 mg Atorvastatin Calcium (Lipitor) 10 mg PO DAILY [facility] Last Admin: 01/19/18 09:40 Dose: 10 mg Budesonide (Pulmicort Aerosol) 0.5 mg INHALATION Q12H.RT [facility] Last Admin: 01/19/18 06:57 Dose: 0.5 mg Carvedilol (Coreg) 18.75 mg PO BID [facility] Last Admin: 01/19/18 09:31 Dose: 18.75 mg Cefdinir (Omnicef [Equiv]) 300 mg PO BID [facility] Stop: 01/20/18 22:01 Last Admin: 01/19/18 09:31 Dose: 300 mg Clonazepam (Klonopin) 1 mg PO TID PRN PRN PRN Reason: ANXIETY Clopidogrel Bisulfate (Plavix) 75 mg PO DAILY [facility] Last Admin: 01/19/18 09:31 Dose: 75 mg Dofetilide (Tikosyn) 250 mcg PO BID [facility] Last Admin: 01/19/18 09:30 Dose: 250 mcg Furosemide (Lasix) 40 mg IV BIDLX [facility] Last Admin: 01/19/18 09:30 Dose: 40 mg Heparin Sodium (Porcine) (Heparin Na) 5,000 unit SC Q8 [facility] Last Admin: 01/19/18 06:33 Dose: 5,000 u Insulin Aspart (Novolog Flexpen ([facility])) 0 units SC ACHS [facility] PRN Reason: Protocol Last Admin: 01/19/18 09:26 Dose: 10 units Insulin Detemir (Levemir (Bkc)) 20 units SC DAILY [facility] Insulin Human NPH (Humulin N ([facility])) 15 units SC BIDAC [facility] Isosorbide Mononitrate (Imdur) 60 mg PO BID [facility] Last Admin: 01/19/18 09:31 Dose: 60 mg Lactobacillus Acidophilus (Acidophilus) 1 tablet PO DAILY [facility] Last Admin: 01/19/18 09:30 Dose: 1 tablet Levetiracetam (Keppra Tablet) 1,500 mg PO BID [facility] Last Admin: 01/19/18 09:31 Dose: 1,500 mg Levothyroxine Sodium (Synthroid) 100 mcg PO DAILY@0600 [facility] Last Admin: 01/19/18 06:33 Dose: 100 mcg Linagliptin (Tradjenta) 5 mg PO DAILY [facility] Last Admin: 03/24/18 09:30 Dose: 5 mg Magnesium Hydroxide (Milk Of Magnesia) 30 ml PO DAILY PRN PRN Reason: Constipation Magnesium Oxide (Mag-Ox 400) 400 mg PO DAILY [facility] Last Admin: 01/19/18 09:30 Dose: 400 mg Methylprednisolone (Solu-Medrol) 40 mg IV Q8 [facility] Last Admin: 01/19/18 06:33 Dose: 40 mg Metolazone (Zaroxolyn) 2.5 mg PO DAILY PRN PRN PRN Reason: FLUID RETENTION Mexiletine HCl (Mexitil) 150 mg PO BID [facility] Last Admin: 01/19/18 09:31 Dose: 150 mg Multivitamins (Multivitamin) 1 tablet PO DAILY@1200 [facility] Nitroglycerin (Nitrostat) 0.4 mg SUBLINGUAL Q5M PRN PRN Reason: Chest Pain Potassium Chloride (K-Dur) 20 meq PO MoWeFr@0800 [facility] Pramipexole Dihydrochloride (Mirapex) 1 mg PO QHS [facility] Last Admin: 01/18/18 21:47 Dose: 1 mg Ranolazine (Ranexa) 1,000 mg PO BID [facility] Last Admin: 01/19/18 09:33 Dose: 1,000 mg Medical Necessity - Tobacco Use Smoking Status: Former smoker
--- NOTE | 2018-01-19 11:28 | PCM.PN.HOSP ---
Vitals/I&O's: Vital Signs Temp Pulse Resp BP Pulse Ox 97.8 F 73 16 144/75 H 92 01/19/18 09:10 01/19/18 09:10 01/19/18 09:10 01/19/18 09:10 01/19/18 09:10 Oxygen Flow Rate (L/min) 2 Oxygen Delivery Method Room Air Weight: 79.9 kg Body Mass Index (BMI) 27.7 Intake and Output for Last 24 Hours 01/17/18 01/18/18 01/19/18 23:59 23:59 23:59 Intake Total 240 / 240 240 / 240 Balance 240 / 240 240 / 240 Laboratory Results 01/18/18 17:12: POC Glucose 442 H 01/18/18 21:39: POC Glucose 359 H 01/19/18 05:55: WBC 11.5 H, RBC 4.25 L, Hgb 14.0, Hct 39.8 L, MCV 93.6, MCH 32.9 H, MCHC 35.2, RDW 13.3, RDW Differential 44.7 H, Plt Count 201, MPV 9.3, Immature Gran % (Auto) 0.400, Neut % (Auto) 91.4 H, Lymph % (Auto) 6.5 L, [place] % (Auto) 1.6, Eos % (Auto) 0.0, Baso % (Auto) 0.1, Absolute Neuts (auto) 10.5 H, Absolute Lymphs (auto) 0.74 L, Total Counted Not Reportable 01/19/18 05:55: Sodium 134 L, Potassium 4.2, Chloride 92 L, Carbon Dioxide 31.0, Anion Gap 11, BUN 40 H, Creatinine 1.70 H, Estim Creat Clear Calc 34.02, Est GFR (MDRD) Af Amer 50 L, Est GFR (MDRD) Non-Af 42 L, BUN/Creatinine Ratio 23.5 H, Glucose 341 H, Calcium 8.3 L 01/19/18 06:39: POC Glucose 376 H Current Medications Albuterol/Ipratropium (Duoneb) 3 ml INHALATION Q6H.RT [facility] Last Admin: 01/19/18 06:57 Dose: 3 ml Aspirin (Ecotrin) 81 mg PO DAILY@0800 [facility] Last Admin: 01/19/18 09:30 Dose: 81 mg Atorvastatin Calcium (Lipitor) 10 mg PO DAILY [facility] Last Admin: 01/19/18 09:40 Dose: 10 mg Budesonide (Pulmicort Aerosol) 0.5 mg INHALATION Q12H.RT [facility] Last Admin: 01/19/18 06:57 Dose: 0.5 mg Carvedilol (Coreg) 18.75 mg PO BID [facility] Last Admin: 01/19/18 09:31 Dose: 18.75 mg Cefdinir (Omnicef [Equiv]) 300 mg PO BID [facility] Stop: 01/20/18 22:01 Last Admin: 01/19/18 09:31 Dose: 300 mg Clonazepam (Klonopin) 1 mg PO TID PRN PRN PRN Reason: ANXIETY Clopidogrel Bisulfate (Plavix) 75 mg PO DAILY [facility] Last Admin: 01/19/18 09:31 Dose: 75 mg Dofetilide (Tikosyn) 250 mcg PO BID [facility] Last Admin: 01/19/18 09:30 Dose: 250 mcg Furosemide (Lasix) 40 mg IV BIDLX [facility] Last Admin: 01/19/18 09:30 Dose: 40 mg Heparin Sodium (Porcine) (Heparin Na) 5,000 unit SC Q8 [facility] Last Admin: 01/19/18 06:33 Dose: 5,000 u Insulin Aspart (Novolog Flexpen ([facility])) 0 units SC ACHS [facility] PRN Reason: Protocol Last Admin: 01/19/18 09:26 Dose: 10 units Insulin Detemir (Levemir (Bkc)) 20 units SC DAILY [facility] Insulin Human NPH (Humulin N ([facility])) 15 units SC BIDAC [facility] Isosorbide Mononitrate (Imdur) 60 mg PO BID [facility] Last Admin: 01/19/18 09:31 Dose: 60 mg Lactobacillus Acidophilus (Acidophilus) 1 tablet PO DAILY [facility] Last Admin: 01/19/18 09:30 Dose: 1 tablet Levetiracetam (Keppra Tablet) 1,500 mg PO BID [facility] Last Admin: 01/19/18 09:31 Dose: 1,500 mg Levothyroxine Sodium (Synthroid) 100 mcg PO DAILY@0600 [facility] Last Admin: 01/19/18 06:33 Dose: 100 mcg Linagliptin (Tradjenta) 5 mg PO DAILY [facility] Last Admin: 03/24/18 09:30 Dose: 5 mg Magnesium Hydroxide (Milk Of Magnesia) 30 ml PO DAILY PRN PRN Reason: Constipation Magnesium Oxide (Mag-Ox 400) 400 mg PO DAILY [facility] Last Admin: 01/19/18 09:30 Dose: 400 mg Methylprednisolone (Solu-Medrol) 40 mg IV Q8 [facility] Last Admin: 01/19/18 06:33 Dose: 40 mg Metolazone (Zaroxolyn) 2.5 mg PO DAILY PRN PRN PRN Reason: FLUID RETENTION Mexiletine HCl (Mexitil) 150 mg PO BID [facility] Last Admin: 01/19/18 09:31 Dose: 150 mg Multivitamins (Multivitamin) 1 tablet PO DAILY@1200 [facility] Nitroglycerin (Nitrostat) 0.4 mg SUBLINGUAL Q5M PRN PRN Reason: Chest Pain Potassium Chloride (K-Dur) 20 meq PO MoWeFr@0800 [facility] Pramipexole Dihydrochloride (Mirapex) 1 mg PO QHS [facility] Last Admin: 01/18/18 21:47 Dose: 1 mg Ranolazine (Ranexa) 1,000 mg PO BID [facility] Last Admin: 01/19/18 09:33 Dose: 1,000 mg Medical Necessity - Tobacco Use Smoking Status: Former smoker
[2018-01-19] MEDS: Multivitamins,Therapeutic Tablet 1 TABLET PO (11:52)
[2018-01-19 12:04] LABS: Glucose 494 mg/dL (74-106)
[2018-01-19 13:56] LABS: Bedside Glucose > 500 mg/dL (70-110)
[2018-01-19 14:43] LABS: Hemoglobin A1c 8.1 % (4.2-6.3)
--- NOTE | 2018-01-19 14:50 | PCM.PN.HOSP ---
Subjective: CC: Shortness of breath and cough Objective: His breathing has improved, he still has wheezing, he denies any fever chills or purulent cough. Vitals/I&O's: Vital Signs Temp Pulse Resp BP Pulse Ox 97.8 F 77 16 144/75 H 92 01/19/18 09:10 01/19/18 13:20 01/19/18 13:20 01/19/18 09:10 01/19/18 09:10 Oxygen Flow Rate (L/min) 2 Oxygen Delivery Method Room Air Weight: 79.9 kg Body Mass Index (BMI) 27.7 Intake and Output for Last 24 Hours 01/17/18 01/18/18 01/19/18 23:59 23:59 23:59 Intake Total 240 / 240 480 / 480 Balance 240 / 240 480 / 480 General: Alert, Oriented x3 Laboratory Results 01/18/18 17:12: POC Glucose 442 H 01/18/18 21:39: POC Glucose 359 H 01/19/18 05:55: WBC 11.5 H, RBC 4.25 L, Hgb 14.0, Hct 39.8 L, MCV 93.6, MCH 32.9 H, MCHC 35.2, RDW 13.3, RDW Differential 44.7 H, Plt Count 201, MPV 9.3, Immature Gran % (Auto) 0.400, Neut % (Auto) 91.4 H, Lymph % (Auto) 6.5 L, [place] % (Auto) 1.6, Eos % (Auto) 0.0, Baso % (Auto) 0.1, Absolute Neuts (auto) 10.5 H, Absolute Lymphs (auto) 0.74 L, Total Counted Not Reportable 01/19/18 05:55: Sodium 134 L, Potassium 4.2, Chloride 92 L, Carbon Dioxide 31.0, Anion Gap 11, BUN 40 H, Creatinine 1.70 H, Estim Creat Clear Calc 34.02, Est GFR (MDRD) Af Amer 50 L, Est GFR (MDRD) Non-Af 42 L, BUN/Creatinine Ratio 23.5 H, Glucose 341 H, Calcium 8.3 L 01/19/18 05:55: Hemoglobin A1c 8.1 H 01/19/18 06:39: POC Glucose 376 H 01/19/18 11:39: Glucose 494 H* 01/19/18 13:39: POC Glucose > 500 H* Current Medications Albuterol/Ipratropium (Duoneb) 3 ml INHALATION Q6H.RT [facility] Last Admin: 01/19/18 13:20 Dose: 3 ml Aspirin (Ecotrin) 81 mg PO DAILY@0800 [facility] Last Admin: 01/19/18 09:30 Dose: 81 mg Atorvastatin Calcium (Lipitor) 10 mg PO DAILY [facility] Last Admin: 01/19/18 09:40 Dose: 10 mg Budesonide (Pulmicort Aerosol) 0.5 mg INHALATION Q12H.RT [facility] Last Admin: 01/19/18 06:57 Dose: 0.5 mg Carvedilol (Coreg) 18.75 mg PO BID [facility] Last Admin: 01/19/18 09:31 Dose: 18.75 mg Cefdinir (Omnicef [Equiv]) 300 mg PO BID [facility] Stop: 01/20/18 22:01 Last Admin: 01/19/18 09:31 Dose: 300 mg Clonazepam (Klonopin) 1 mg PO TID PRN PRN PRN Reason: ANXIETY Clopidogrel Bisulfate (Plavix) 75 mg PO DAILY [facility] Last Admin: 01/19/18 09:31 Dose: 75 mg Dofetilide (Tikosyn) 250 mcg PO BID [facility] Last Admin: 01/19/18 09:30 Dose: 250 mcg Furosemide (Lasix) 40 mg IV BIDLX [facility] Last Admin: 01/19/18 09:30 Dose: 40 mg Heparin Sodium (Porcine) (Heparin Na) 5,000 unit SC Q8 [facility] Last Admin: 01/19/18 13:43 Dose: 5,000 u Insulin Aspart (Novolog Flexpen (Bkc)) 0 units SC ACHS [facility] PRN Reason: Protocol Last Admin: 01/19/18 11:52 Dose: 15 units Insulin Detemir (Levemir (Bkc)) 20 units SC DAILY [facility] Last Admin: 01/19/18 13:48 Dose: 20 u Insulin Human NPH (Humulin N (Bk)) 15 units SC BIDAC [facility] Isosorbide Mononitrate (Imdur) 60 mg PO BID [facility] Last Admin: 01/19/18 09:31 Dose: 60 mg Lactobacillus Acidophilus (Acidophilus) 1 tablet PO DAILY [facility] Last Admin: 01/19/18 09:30 Dose: 1 tablet Levetiracetam (Keppra Tablet) 1,500 mg PO BID [facility] Last Admin: 01/19/18 09:31 Dose: 1,500 mg Levothyroxine Sodium (Synthroid) 100 mcg PO DAILY@0600 [facility] Last Admin: 01/19/18 06:33 Dose: 100 mcg Linagliptin (Tradjenta) 5 mg PO DAILY [facility] Last Admin: 01/19/18 09:30 Dose: 5 mg Magnesium Hydroxide (Milk Of Magnesia) 30 ml PO DAILY PRN PRN Reason: Constipation Magnesium Oxide (Mag-Ox 400) 400 mg PO DAILY [facility] Last Admin: 01/19/18 09:30 Dose: 400 mg Methylprednisolone (Solu-Medrol) 40 mg IV DAILY [facility] Metolazone (Zaroxolyn) 2.5 mg PO DAILY PRN PRN PRN Reason: FLUID RETENTION Mexiletine HCl (Mexitil) 150 mg PO BID [facility] Last Admin: 01/19/18 09:31 Dose: 150 mg Multivitamins (Multivitamin) 1 tablet PO DAILY@1200 [facility] Last Admin: 01/19/18 11:52 Dose: 1 tablet Nitroglycerin (Nitrostat) 0.4 mg SUBLINGUAL Q5M PRN PRN Reason: Chest Pain Potassium Chloride (K-Dur) 20 meq PO MoWeFr@0800 [facility] Pramipexole Dihydrochloride (Mirapex) 1 mg PO QHS [facility] Last Admin: 01/18/18 21:47 Dose: 1 mg Ranolazine (Ranexa) 1,000 mg PO BID [facility] Last Admin: 01/19/18 09:33 Dose: 1,000 mg Medical Necessity - Tobacco Use Smoking Status: Former smoker Assessment/Plan 1. Acute bronchitis, failed outpatient management, continue bronchodilators, will decrease IV Solu-Medrol to 40 mg daily. 2 chronic heart failure with incipient Acute exacerbation; will continue IV Lasix. 3. cardiomyopathy status post ICD; his echocardiogram today showed an ejection fraction of 30%. 4. Stage III chronic kidney disease; his renal parameters are close to his baseline, will monitor closely and avoid potential nephrotoxic agents. 4. DM 2; Hyperglycemia worsened by steroids, is on Novolin 70/30, Levemir and regular insulin sliding scale for now. 5. CAD s/p CABG; continue his cardioprotective medications, he would benefit from further ischemic workup prior to discharge. 6. DVT prophylaxis with SCDs. Code Visit Inpatient E&M: 48410 Subs Hosp L2
[2018-01-19 15:01] LABS: Bedside Glucose 493 mg/dL (70-110)
--- NOTE | 2018-01-19 15:01 | PN_ITS ---
Subjective: CC: Shortness of breath and cough Objective: His breathing has improved, he still has wheezing, he denies any fever chills or purulent cough. Vitals/I&O's: Vital Signs Temp Pulse Resp BP Pulse Ox 97.8 F 77 16 144/75 H 92 01/19/18 09:10 01/19/18 13:20 01/19/18 13:20 01/19/18 09:10 01/19/18 09:10 Oxygen Flow Rate (L/min) 2 Oxygen Delivery Method Room Air Weight: 79.9 kg Body Mass Index (BMI) 27.7 Intake and Output for Last 24 Hours 01/17/18 01/18/18 01/19/18 23:59 23:59 23:59 Intake Total 240 / 240 480 / 480 Balance 240 / 240 480 / 480 General: Alert, Oriented x3 Laboratory Results 01/18/18 17:12: POC Glucose 442 H 01/18/18 21:39: POC Glucose 359 H 01/19/18 05:55: WBC 11.5 H, RBC 4.25 L, Hgb 14.0, Hct 39.8 L, MCV 93.6, MCH 32.9 H, MCHC 35.2, RDW 13.3, RDW Differential 44.7 H, Plt Count 201, MPV 9.3, Immature Gran % (Auto) 0.400, Neut % (Auto) 91.4 H, Lymph % (Auto) 6.5 L, [place] % (Auto) 1.6, Eos % (Auto) 0.0, Baso % (Auto) 0.1, Absolute Neuts (auto) 10.5 H , Absolute Lymphs (auto) 0.74 L, Total Counted Not Reportable 01/19/18 05:55: Sodium 134 L, Potassium 4.2, Chloride 92 L, Carbon Dioxide 31.0 , Anion Gap 11, BUN 40 H, Creatinine 1.70 H, Estim Creat Clear Calc 34.02, Est GFR (MDRD) Af Amer 50 L, Est GFR (MDRD) Non-Af 42 L, BUN/Creatinine Ratio 23.5 H , Glucose 341 H, Calcium 8.3 L 01/19/18 05:55: Hemoglobin A1c 8.1 H 01/19/18 06:39: POC Glucose 376 H 01/19/18 11:39: Glucose 494 H* 01/19/18 13:39: POC Glucose > 500 H* Current Medications Albuterol/Ipratropium (Duoneb) 3 ml INHALATION Q6H.RT [facility] Last Admin: 01/19/18 13:20 Dose: 3 ml Aspirin (Ecotrin) 81 mg PO DAILY@0800 [facility] Last Admin: 01/19/18 09:30 Dose: 81 mg Atorvastatin Calcium (Lipitor) 10 mg PO DAILY [facility] Last Admin: 01/19/18 09:40 Dose: 10 mg Budesonide (Pulmicort Aerosol) 0.5 mg INHALATION Q12H.RT [facility] Last Admin: 01/19/18 06:57 Dose: 0.5 mg Carvedilol (Coreg) 18.75 mg PO BID [facility] Last Admin: 01/19/18 09:31 Dose: 18.75 mg Cefdinir (Omnicef [Equiv]) 300 mg PO BID [facility] Stop: 01/20/18 22:01 Last Admin: 01/19/18 09:31 Dose: 300 mg Clonazepam (Klonopin) 1 mg PO TID PRN PRN PRN Reason: ANXIETY Clopidogrel Bisulfate (Plavix) 75 mg PO DAILY [facility] Last Admin: 01/19/18 09:31 Dose: 75 mg Dofetilide (Tikosyn) 250 mcg PO BID [facility] Last Admin: 01/19/18 09:30 Dose: 250 mcg Furosemide (Lasix) 40 mg IV BIDLX [facility] Last Admin: 01/19/18 09:30 Dose: 40 mg Heparin Sodium (Porcine) (Heparin Na) 5,000 unit SC Q8 [facility] Last Admin: 01/19/18 13:43 Dose: 5,000 u Insulin Aspart (Novolog Flexpen (Bkc)) 0 units SC ACHS [facility] PRN Reason: Protocol Last Admin: 01/19/18 11:52 Dose: 15 units Insulin Detemir (Levemir (Bkc)) 20 units SC DAILY [facility] Last Admin: 01/19/18 13:48 Dose: 20 u Insulin Human NPH (Humulin N (Bk)) 15 units SC BIDAC [facility] Isosorbide Mononitrate (Imdur) 60 mg PO BID [facility] Last Admin: 01/19/18 09:31 Dose: 60 mg Lactobacillus Acidophilus (Acidophilus) 1 tablet PO DAILY [facility] Last Admin: 01/19/18 09:30 Dose: 1 tablet Levetiracetam (Keppra Tablet) 1,500 mg PO BID [facility] Last Admin: 01/19/18 09:31 Dose: 1,500 mg Levothyroxine Sodium (Synthroid) 100 mcg PO DAILY@0600 [facility] Last Admin: 01/19/18 06:33 Dose: 100 mcg Linagliptin (Tradjenta) 5 mg PO DAILY [facility] Last Admin: 01/19/18 09:30 Dose: 5 mg Magnesium Hydroxide (Milk Of Magnesia) 30 ml PO DAILY PRN PRN Reason: Constipation Magnesium Oxide (Mag-Ox 400) 400 mg PO DAILY [facility] Last Admin: 01/19/18 09:30 Dose: 400 mg Methylprednisolone (Solu-Medrol) 40 mg IV DAILY [facility] Metolazone (Zaroxolyn) 2.5 mg PO DAILY PRN PRN PRN Reason: FLUID RETENTION Mexiletine HCl (Mexitil) 150 mg PO BID [facility] Last Admin: 01/19/18 09:31 Dose: 150 mg Multivitamins (Multivitamin) 1 tablet PO DAILY@1200 [facility] Last Admin: 01/19/18 11:52 Dose: 1 tablet Nitroglycerin (Nitrostat) 0.4 mg SUBLINGUAL Q5M PRN PRN Reason: Chest Pain Potassium Chloride (K-Dur) 20 meq PO MoWeFr@0800 [facility] Pramipexole Dihydrochloride (Mirapex) 1 mg PO QHS [facility] Last Admin: 01/18/18 21:47 Dose: 1 mg Ranolazine (Ranexa) 1,000 mg PO BID [facility] Last Admin: 01/19/18 09:33 Dose: 1,000 mg Medical Necessity - Tobacco Use Smoking Status: Former smoker Assessment/Plan 1. Acute bronchitis, failed outpatient management, continue bronchodilators, will decrease IV Solu-Medrol to 40 mg daily. 2 chronic heart failure with incipient Acute exacerbation; will continue IV Lasix. 3. cardiomyopathy status post ICD; his echocardiogram today showed an ejection fraction of 30%. 4. Stage III chronic kidney disease; his renal parameters are close to his baseline, will monitor closely and avoid potential nephrotoxic agents. 4. DM 2; Hyperglycemia worsened by steroids, is on Novolin 70/30, Levemir and regular insulin sliding scale for now. 5. CAD s/p CABG; continue his cardioprotective medications, he would benefit from further ischemic workup prior to discharge. 6. DVT prophylaxis with SCDs. Code Visit Inpatient E&M: 74784 Subs Hosp L2
[2018-01-19 15:56] LABS: Bedside Glucose 488 mg/dL (70-110)
[2018-01-19 16:05] LABS: Glucose 458 mg/dL (74-106)
[2018-01-19] MEDS: Insulin NPH Human 100 UNITS/ML PEN 15 UNITS SC (16:08)
[2018-01-19 18:35] LABS: Bedside Glucose 423 mg/dL (70-110)
[2018-01-19] MEDS: Pramipexole Di-HCl 1 MG Tablet PO (21:14)
[2018-01-19 21:35] LABS: Bedside Glucose 406 mg/dL (70-110)
[2018-01-20] VITALS (14 sets, daily range): BP systolic 114–139; BP diastolic 67–76; PULSE 70–86; RESP 15–18; TEMP 35.9–37.2; O2SAT 92–98
[2018-01-20] MEDS: Ipratropium/Albuterol Sulfate 3 ML AMPUL.NEB INHALATION ×4 (01:18→19:05)
[2018-01-20 06:33] LABS: Hematocrit 40.7 % (40-54); Mean Corp Hgb Conc 34.4 g/gl (32-36); Mean Corpuscular Hgb 32.4 pg (27.0-32.0); Mean Corpuscular Volume 94.2 fL (80-94); Mean Platelet Vol. 9.5 fl (6.2-12.0); Platelet Count 178 K/mm3 (150-450); RBC Distribution Width CV 13.9 % (11.6-14.6); RBC Distribution Width SD 47.5 fl (35.1-43.9); Red Blood Count 4.32 M/mm3 (4.6-6.2); White Blood Count 16.5 K/mm3 (4.4-11.0)
[2018-01-20] MEDS: Levothyroxine 100 MCG Tablet PO (06:35)
[2018-01-20 06:47] LABS: Scan Indicated on CBC? Y/N NO
[2018-01-20 06:52] LABS: Anion Gap 10 (5-15); BUN 48 mg/dL (7-18); BUN/Creat Ratio 24.9 RATIO (10-20); Calcium,Total 8.6 mg/dL (8.5-10.1); Chloride 89 mmol/L (98-107); Creatinine, Serum 1.93 mg/dL (0.70-1.30); EST Glomerular Filtration Rate 36 mL/min (>60); Est Glom Filt Rate - Afr Amer 44 mL/min (>60); Estimated Creatinine Clearance 29.97 ml/min; Glucose 260 mg/dL (74-106); Potassium 3.3 mmol/L (3.5-5.1); Sodium Level 130 mmol/L (136-145)
[2018-01-20 07:00] LABS: Bedside Glucose > 500 mg/dL (70-110)
[2018-01-20 07:00] LABS: Bedside Glucose > 500 mg/dL (70-110)
[2018-01-20 07:00] LABS: Bedside Glucose 285 mg/dL (70-110)
[2018-01-20] MEDS: Budesonide Respules 0.5 MG/2 ML AMPUL.NEB. INHALATION ×2 (07:18→19:05)
[2018-01-20] MEDS: Insulin NPH Human 100 UNITS/ML PEN 15 UNITS SC ×2 (08:45→17:07)
[2018-01-20] MEDS: Aspirin E.C. 81 MG Tablet PO (08:46)
[2018-01-20] MEDS: Carvedilol 6.25 MG Tablet 18.75 MG PO ×2 (08:47→22:53)
[2018-01-20] MEDS: levETIRAcetam 750 MG Tablet 1500 MG PO ×2 (08:48→22:54)
[2018-01-20] MEDS: Furosemide 40 MG/4 ML Vial IV ×2 (08:48→18:10)
[2018-01-20] MEDS: Isosorbide Mononitrate 60 MG Tablet PO ×2 (08:48→22:54)
[2018-01-20] MEDS: Atorvastatin Calcium 10 MG Tablet PO (08:57)
[2018-01-20] MEDS: Magnesium Oxide 400 MG Tablet PO (08:57)
[2018-01-20] MEDS: Mexiletine 150 MG Capsule PO ×2 (08:58→22:54)
[2018-01-20] MEDS: Clopidogrel Bisulfate 75 MG Tablet PO (08:58)
[2018-01-20] MEDS: Cefdinir 300 MG Capsule PO ×2 (08:58→22:57)
[2018-01-20] MEDS: Ranolazine 500 MG Tablet 1000 MG PO ×2 (08:59→22:57)
[2018-01-20] MEDS: LINAGLIPTIN 5 MG TABLET PO (08:59)
[2018-01-20] MEDS: Dofetilide 250 MCG Capsule PO ×2 (08:59→22:58)
[2018-01-20 11:16] LABS: Bedside Glucose 350 mg/dL (70-110)
--- NOTE | 2018-01-20 11:41 | NURSING ---
RN entered patient's room to see if Dr. Franco was in the room. Patient noted laying in bed with a bath blanket behind him and his underware on. Patient states that when he was in the bathroom he became very dizzy and nauseas. Patient denies dizziness when asked by RN, but reports that he still feels nauseas. Patient doesn't want anything for nausea states I think it will pass. VSS. Dr. Franco returns to PCU and is updated on same.
[2018-01-20] MEDS: Multivitamins,Therapeutic Tablet 1 TABLET PO (12:25)
--- NOTE | 2018-01-20 12:40 | PCM.PN.HOSP ---
Subjective: CC: Shortness of breath and cough Objective: Interval history: The patient is a 77 year old M past medical history of coronary artery disease , XOCHITL, DM type II , CKD and congestive heart failure and presents to the emergency room by the recommendation of his primary care doctor due to cough, shortness of breath and dizziness. He had failed outpatient treatment for bronchitis with antibiotics and steroids. Was placed in the hospital for IV steroids bronchodilator therapy and antibiotics, significant hyperglycemia due to the steroids. He is much improved but he currently reports feels dizziness. Vitals/I&O's: Vital Signs Temp Pulse Resp BP Pulse Ox 97.8 F 70 15 139/67 H 98 01/20/18 11:41 01/20/18 11:41 01/20/18 11:41 01/20/18 11:41 01/20/18 11:41 Oxygen Flow Rate (L/min) 2 Oxygen Delivery Method Room Air Weight: 79.5 kg Body Mass Index (BMI) 27.7 Intake and Output for Last 24 Hours 01/18/18 01/19/18 01/20/18 23:59 23:59 23:59 Intake Total 240 / 240 840 / 840 360 / 360 Output Total 1250 / 1250 950 / 950 Balance 240 / 240 -410 / -410 -590 / -590 General: Alert, Oriented x3 Oral: Moist Mucosa Neck: Supple, No JVD Lungs: Rales Cardiovascular: Normal S1, Normal S2 Abdomen: Bowel Sounds Present, Soft, Non Tender Extremities: No edema Neurological: Deep Tendon Reflexes 2+/4 and Symmetrical, Motor Exam 5/5 strength throughout Laboratory Results 01/19/18 05:55: Hemoglobin A1c 8.1 H 01/19/18 11:16: POC Glucose > 500 H* 01/19/18 11:19: POC Glucose > 500 H* 01/19/18 13:39: POC Glucose > 500 H* 01/19/18 14:53: POC Glucose 493 H* 01/19/18 15:35: Glucose 458 H* 01/19/18 15:47: POC Glucose 488 H* 01/19/18 18:19: POC Glucose 423 H 01/19/18 21:08: POC Glucose 406 H 01/20/18 05:55: WBC 16.5 H, RBC 4.32 L, Hgb 14.0, Hct 40.7, MCV 94.2 H, MCH 32.4 H, MCHC 34.4, RDW 13.9, RDW Differential 47.5 H, Plt Count 178, MPV 9.5 01/20/18 05:55: Sodium 130 L, Potassium 3.3 L, Chloride 89 L, Carbon Dioxide 31.0, Anion Gap 10, BUN 48 H, Creatinine 1.93 H, Estim Creat Clear Calc 29.97, Est GFR (MDRD) Af Amer 44 L, Est GFR (MDRD) Non-Af 36 L, BUN/Creatinine Ratio 24.9 H, Glucose 260 H, Calcium 8.6 01/20/18 06:50: POC Glucose 285 H 01/20/18 11:09: POC Glucose 350 H Current Medications Albuterol/Ipratropium (Duoneb) 3 ml INHALATION Q6H.RT [facility] Last Admin: 01/20/18 07:18 Dose: 3 ml Aspirin (Ecotrin) 81 mg PO DAILY@0800 [facility] Last Admin: 01/20/18 08:46 Dose: 81 mg Atorvastatin Calcium (Lipitor) 10 mg PO DAILY [facility] Last Admin: 01/20/18 08:57 Dose: 10 mg Budesonide (Pulmicort Aerosol) 0.5 mg INHALATION Q12H.RT [facility] Last Admin: 01/20/18 07:18 Dose: 0.5 mg Carvedilol (Coreg) 18.75 mg PO BID [facility] Last Admin: 01/20/18 08:47 Dose: 18.75 mg Cefdinir (Omnicef [Equiv]) 300 mg PO BID [facility] Stop: 01/20/18 22:01 Last Admin: 01/20/18 08:58 Dose: 300 mg Clonazepam (Klonopin) 1 mg PO TID PRN PRN PRN Reason: ANXIETY Clopidogrel Bisulfate (Plavix) 75 mg PO DAILY [facility] Last Admin: 01/20/18 08:58 Dose: 75 mg Dofetilide (Tikosyn) 250 mcg PO BID [facility] Last Admin: 01/20/18 08:59 Dose: 250 mcg Furosemide (Lasix) 40 mg IV BIDLX [facility] Last Admin: 01/20/18 08:48 Dose: 40 mg Heparin Sodium (Porcine) (Heparin Na) 5,000 unit SC Q8 [facility] Last Admin: 01/20/18 06:35 Dose: 5,000 u Insulin Aspart (Novolog Flexpen ([facility])) 0 units SC ACHS [facility] PRN Reason: Protocol Last Admin: 01/20/18 12:26 Dose: 8 units Insulin Detemir (Levemir ([facility])) 20 units SC DAILY [facility] Last Admin: 01/20/18 10:35 Dose: 20 u Insulin Human NPH (Humulin N ([facility])) 15 units SC BIDAC [facility] Last Admin: 01/20/18 08:45 Dose: 15 unit Isosorbide Mononitrate (Imdur) 60 mg PO BID [facility] Last Admin: 01/20/18 08:48 Dose: 60 mg Lactobacillus Acidophilus (Acidophilus) 1 tablet PO DAILY [facility] Last Admin: 01/20/18 08:47 Dose: 1 tablet Levetiracetam (Keppra Tablet) 1,500 mg PO BID [facility] Last Admin: 01/20/18 08:48 Dose: 1,500 mg Levothyroxine Sodium (Synthroid) 100 mcg PO DAILY@0600 [facility] Last Admin: 01/20/18 06:35 Dose: 100 mcg Linagliptin (Tradjenta) 5 mg PO DAILY [facility] Last Admin: 01/20/18 08:59 Dose: 5 mg Magnesium Hydroxide (Milk Of Magnesia) 30 ml PO DAILY PRN PRN Reason: Constipation Magnesium Oxide (Mag-Ox 400) 400 mg PO DAILY [facility] Last Admin: 01/20/18 08:57 Dose: 400 mg Metolazone (Zaroxolyn) 2.5 mg PO DAILY PRN PRN PRN Reason: FLUID RETENTION Mexiletine HCl (Mexitil) 150 mg PO BID [facility] Last Admin: 01/20/18 08:58 Dose: 150 mg Multivitamins (Multivitamin) 1 tablet PO DAILY@1200 [facility] Last Admin: 01/20/18 12:25 Dose: 1 tablet Nitroglycerin (Nitrostat) 0.4 mg SUBLINGUAL Q5M PRN PRN Reason: Chest Pain Potassium Chloride (K-Dur) 20 meq PO MoWeFr@0800 [facility] Pramipexole Dihydrochloride (Mirapex) 1 mg PO QHS [facility] Last Admin: 01/19/18 21:14 Dose: 1 mg Ranolazine (Ranexa) 1,000 mg PO BID [facility] Last Admin: 01/20/18 08:59 Dose: 1,000 mg Medical Necessity - Tobacco Use Smoking Status: Former smoker Assessment/Plan 1. Acute bronchitis, failed outpatient management, continue bronchodilators, we will discontinue IV steroids today, continue on Pulmicort aerosols . 2 chronic systolic heart failure with incipient Acute exacerbation; he has improved with IV Lasix will change to oral Lasix today 3. cardiomyopathy status post ICD; his echocardiogram this admission showed an ejection fraction of 30%. 4. Stage III chronic kidney disease; his renal parameters remain stable, will continue to avoid potential nephrotoxic agents. 4. DM 2; Hyperglycemia worsened by steroids, he is on Novolin 70/30, Levemir and regular insulin sliding scale for now. 5. CAD s/p CABG; he would benefit from further ischemic workup prior to discharge, we consult cardiology. 6. DVT prophylaxis with SCDs.
[2018-01-20 16:30] LABS: Bedside Glucose 453 mg/dL (70-110)
[2018-01-20] MEDS: Furosemide 40 MG Tablet PO (17:05)
[2018-01-20 17:11] LABS: Glucose 395 mg/dL (74-106)
--- NOTE | 2018-01-20 17:46 | PCM.CONS.C ---
Reason for Consult Date of Consultation: 01/20/18 Reason for Consultation: Shortness of breath History of Present Illness: The patient is a 77 year old white male with a past cardiovascular history which is included underlying paroxysmal ventricular tachycardia, ICD placement, CAD, CABG, ischemic mediated cardiomyopathy, chronic systolic CHF, hyperlipidemia, hypertension, superimposed upon diabetes mellitus, thyroid disorder with a history of amiodarone-induced thyroid storm, hypothyroidism, and now a recent subdural hematoma . He presented this time with shortness of breath no chest pain no palpitations was noted to have a bronchitis was put on prednisone and his blood sugars were noted to be elevated. He was admitted and treated for hypoglycemia. He had an echocardiogram performed which demonstrated no change from before with a globally reduced ejection fraction of 25%. This morning he was noted to be somewhat short of breath and his requested cardiology evaluation. He does not recall having any concerning chest discomfort in or around the time of his event. He has not complained of any acute orthopnea or PND or peripheral pitting edema. He has had chronic shortness of breath and dyspnea and chronic waxing and waning peripheral pitting edema. There has been no report of syncope. He has no report of palpitations and states his ICD did not discharge. His ICD was interrogated at [facility] recently and it was functioning appropriately. There was a report that he had 2 episodes of slow ventricular tachycardia . However after EP evaluation, and discussing his case with his primary customer services supervisor Dr. Finch of [facility].He states overall he is feeling better. However he notes that he still does not feel as if he has his balance back. He still requires assistance with being up and ambulating. [] Past Medical History Allergies/Adverse Reactions: Allergies amiodarone Allergy (Verified 01/18/18 11:35) Other meperidine [From Demerol] Allergy (Verified 01/18/18 11:35) Low blood pressure spironolactone Allergy (Verified 01/18/18 11:35) Nausea simvastatin Adverse Reaction (Mild, Verified 01/18/18 11:35) Myalgias Home Medications: Ambulatory Orders Medication Instructions Recorded Isosorbide Mononitrate [Imdur] 60 mg PO BID 06/02/14 Nitroglycerin [Nitrostat] 0.4 mg SUBLINGUAL Q5M PRN 06/02/14 Ranolazine [Ranexa] 1,000 mg PO BID 06/02/14 Atorvastatin Calcium [Lipitor] 10 mg PO DAILY 08/20/14 Multivitamins,Therapeutic 1 tab PO DAILY 08/20/14 [Multivitamin] Dofetilide 250 mcg PO BID 03/14/17 Mexiletine [Mexitil] 150 mg PO BID 03/14/17 Magnesium Oxide [Magnesium] 400 mg PO DAILY 07/28/17 aspirin 81 mg tablet,delayed 81 mg PO DAILY 11/12/17 release bumetanide 1 mg tablet 1 mg PO BID 11/12/17 clonazepam 1 mg tablet 1 mg PO TID PRN 11/12/17 levetiracetam 1,000 mg tablet 1,500 mg PO BID tab 11/12/17 levothyroxine 100 mcg tablet 100 mcg PO DAILY tab 11/12/17 potassium chloride ER 20 mEq 20 meq PO MOWEFR tab 11/12/17 tablet,extended release(part/cryst) ropinirole 1 mg tablet 2 mg PO QHS tab 11/12/17 carvedilol 12.5 mg tablet 18.75 mg PO BID tab 11/14/17 clopidogrel 75 mg tablet 75 mg PO DAILY 11/14/17 metolazone 2.5 mg tablet 2.5 mg PO PRN PRN tab 11/14/17 Cefdinir [Cefdinir] 300 mg PO BID 01/18/18 L.acidoph,Paracasei, B.lactis 1 each PO DAILY 01/18/18 [Probiotic] Sitagliptin Phosphate [Januvia] 50 mg PO DAILY 01/18/18 Past Medical History (Chronic Problems): Chronic Problems (Last Reviewed 11/14/17 @ 11:44 by Ana Cristina Cobos) HLD (hyperlipidemia) (Chronic) Non-ST elevation (NSTEMI) myocardial infarction (Chronic) Angina pectoris (Chronic) CAD (coronary artery disease) (Chronic) Edema (Chronic) Dyspnea (Chronic) Renal disease (Chronic) Fatigue (Chronic) XOCHITL (obstructive sleep apnea) (Chronic) Diabetes mellitus type 2, noninsulin dependent (Chronic) Old myocardial infarction (Chronic) Long-term use of high-risk medication (Chronic) Chronic renal failure (Chronic) Cardiac murmur (Chronic) Hypokalemia (Chronic) Atherosclerotic heart disease of [place] coronary artery without angina pectoris (Chronic) CABG 1988; Reoperation CABG x3 SVG to LAD, SVG to Rt PDA, Radial artery to OM-2 10/08/02; VT ablation @[facility] 01/03/17 [facility] 03/10/2016 Ventricular tachycardia (paroxysmal) (Chronic) ICD (implantable cardioverter-defibrillator) in place (Chronic ~11/2001) Implant 12/10/2001 ICD replacement 06/10/2009, 06/05/2014, Systolic CHF, chronic (Chronic) Cardiomyopathy, ischemic (Chronic) CKD (chronic kidney disease), stage II (Chronic) Type II diabetes mellitus, uncontrolled (Chronic) Esophageal reflux (Chronic) HLD (hyperlipidemia) (Chronic) HTN (hypertension) (Chronic) Hypothyroidism (Chronic) Sleep apnea (Chronic) Surgical History: cholecystectomy, coronary bypass surgery, - - ICD placement Psychiatric History: No pertinent psych hx - *Family History Paternal Family History: Family History (Last Reviewed 11/14/17 @ 11:44 by Ana Cristina Cobos) Father CAD (coronary artery disease) Hypertension Myocardial infarction CHF (congestive heart failure) Mother CAD (coronary artery disease) Myocardial infarction Hypothyroid High cholesterol History Items: Diabetes, Heart Disease Smoking Status: Former smoker Objective: Vital Signs Temp Pulse Resp BP Pulse Ox 98.2 F 72 15 125/71 H 96 01/20/18 15:10 01/20/18 15:10 01/20/18 15:10 01/20/18 15:10 01/20/18 15:10 Oxygen Flow Rate (L/min) 2 Oxygen Delivery Method Room Air Weight: 175 lb 4.28 oz Body Mass Index (BMI) 27.7 Intake and Output for Last 24 Hours 01/18/18 01/19/18 01/20/18 23:59 23:59 23:59 Intake Total 240 / 240 840 / 840 840 / 840 Output Total 1250 / 1250 1300 / 1300 Balance 240 / 240 -410 / -410 -460 / -460 01/20/18 05:55: WBC 16.5 H, RBC 4.32 L, Hgb 14.0, Hct 40.7, MCV 94.2 H, MCH 32.4 H, MCHC 34.4, RDW 13.9, RDW Differential 47.5 H, Plt Count 178, MPV 9.5 01/20/18 05:55: Sodium 130 L, Potassium 3.3 L, Chloride 89 L, Carbon Dioxide 31.0, Anion Gap 10, BUN 48 H, Creatinine 1.93 H, Est GFR (MDRD) Af Amer 44 L, Est GFR (MDRD) Non-Af 36 L, BUN/Creatinine Ratio 24.9 H, Glucose 260 H, Calcium 8.6 01/20/18 16:47: Glucose 395 H Rhythm: EKG: ECHO: Stress Test: Cardiac Cath: PCI: CT Surgery: Holter monitor: EPS: PPM: CXR: Chest CT Scan: Assessment/Plan 1. Congestive heart failure-acute on chronic systolic He presents with shortness of breath and is noted to have an elevated natruretic peptide which has responded somewhat to intravenous Lasix. His echocardiogram demonstrated continued reduction in left ventricular systolic function. He appears to be getting close to baseline but I will suggest that we administer another dose of intravenous Lasix and I suspect that he would feel much better by morning. He may have a component of bronchitis on top of this as well. 2. Coronary artery disease status post carotid bypass surgery. He appears to be doing well with no evidence of angina and at this time there are no plans to perform any cardiac catheterization. He will remain on his nitrates Ranexa beta-jonathan and lipid-lowering therapy. 3. Status post ICD implantation. He had this interrogated recently at [facility] when he was admitted and it was reported to functioning appropriately he has not had any VT or VF episodes of ventricular defibrillator episodes. We will continue to monitor this closely. 4.Hypertension He does have a history of hypertension with his blood pressure being followed at this time he does not need any adjustments and will continue to follow him closely. 5. Ischemic cardiomyopathy He does have a history of ischemic cardiomyopathy with recent congestive heart failure. He also has some renal dysfunction and will continue to monitor him and adjust his diuretics as appropriate. I suspect that he will be stable to be discharged in a.m. on his bumetanide 1 mg twice a day. 6. Hyperlipidemia He will continue on lipid-lowering therapy. I discussed the above with him and his they understand and agreed to proceed with the current therapy. Thank you for allowing me to participate in the care of your patient. Please don't hesitate to call if any issues arise
[2018-01-20 18:59] LABS: Glucose 477 mg/dL (74-106)
--- NOTE | 2018-01-20 19:02 | NURSING ---
Lab phones with critical glucose level of 477. Dr. Franco paged. Returns call and updated on blood sugar levels. New order for Novolog 14 units sq x1 given
[2018-01-20 22:10] LABS: Glucose 397 mg/dL (74-106)
[2018-01-20] MEDS: Pramipexole Di-HCl 1 MG Tablet PO (22:55)
[2018-01-20] MEDS: guaiFENesin 1,200 MG Tablet 1200 MG PO (22:57)
[2018-01-21] VITALS (9 sets, daily range): BP systolic 114–121; BP diastolic 69–73; PULSE 67–78; RESP 12–18; TEMP 36.8–37.1; O2SAT 93–98
[2018-01-21] MEDS: Ipratropium/Albuterol Sulfate 3 ML AMPUL.NEB INHALATION ×2 (00:36→06:54)
[2018-01-21 02:54] LABS: Anion Gap 11 (5-15); BUN 58 mg/dL (7-18); BUN/Creat Ratio 29.1 RATIO (10-20); Calcium,Total 8.6 mg/dL (8.5-10.1); Chloride 93 mmol/L (98-107); Creatinine, Serum 1.99 mg/dL (0.70-1.30); EST Glomerular Filtration Rate 35 mL/min (>60); Est Glom Filt Rate - Afr Amer 42 mL/min (>60); Estimated Creatinine Clearance 29.06 ml/min; Glucose 167 mg/dL (74-106); Potassium 3.4 mmol/L (3.5-5.1); Sodium Level 134 mmol/L (136-145)
[2018-01-21 06:12] LABS: Hematocrit 40.7 % (40-54); Hemoglobin 14.3 g/dl (13.0-16.5); Mean Corp Hgb Conc 35.1 g/gl (32-36); Mean Corpuscular Hgb 32.9 pg (27.0-32.0); Mean Corpuscular Volume 93.8 fL (80-94); Mean Platelet Vol. 9.6 fl (6.2-12.0); Platelet Count 169 K/mm3 (150-450); RBC Distribution Width CV 14.1 % (11.6-14.6); RBC Distribution Width SD 47.9 fl (35.1-43.9); Red Blood Count 4.34 M/mm3 (4.6-6.2); White Blood Count 17.2 K/mm3 (4.4-11.0)
[2018-01-21 06:19] LABS: Anion Gap 9 (5-15); BUN 54 mg/dL (7-18); BUN/Creat Ratio 28.3 RATIO (10-20); Calcium,Total 8.3 mg/dL (8.5-10.1); Chloride 97 mmol/L (98-107); Creatinine, Serum 1.91 mg/dL (0.70-1.30); EST Glomerular Filtration Rate 36 mL/min (>60); Est Glom Filt Rate - Afr Amer 44 mL/min (>60); Estimated Creatinine Clearance 30.28 ml/min; Glucose 114 mg/dL (74-106); Potassium 3.6 mmol/L (3.5-5.1); Sodium Level 135 mmol/L (136-145)
[2018-01-21 06:32] LABS: Scan Indicated on CBC? Y/N NO
--- NOTE | 2018-01-21 06:48 | PCM.PN.CARD ---
Subjectve: Patient seen and evaluated and appears to be breathing much better today. Objective: Vital Signs Temp Pulse Resp BP Pulse Ox 98.7 F 72 18 114/73 98 01/21/18 03:10 01/21/18 03:10 01/21/18 03:10 01/21/18 03:10 01/21/18 03:10 Oxygen Flow Rate (L/min) 2 Oxygen Delivery Method Room Air Weight: 175 lb 14.862 oz Body Mass Index (BMI) 27.7 Intake and Output for Last 24 Hours 01/19/18 01/20/18 01/21/18 23:59 23:59 23:59 Intake Total 840 / 840 840 / 840 Output Total 1250 / 1250 2400 / 2400 Balance -410 / -410 -1560 / -1560 General: Awake, Alert, Oriented x 3 HEENT: PERRL, EOMI, Sclera Non Icteric Neck: Supple, Good ROM, No Lymph Node Enlargement Lungs: Clear to auscultation Cardiovascular: Regular Rhythm, Normal S1, Normal S2, No Murmurs, No Rubs, No Gallops Vascular: No Carotid Bruits, Normal Femoral Pulses, Normal Radial Pulses, Normal Dorsalis Pedal Pulse, Normal Posterior Tibial Pulses Abdomen: Bowel Sounds Present, Soft, Non Tender, No HSM, No Organomegaly Extremities: No Cyanosis, No Clubbing, No edema Neurological: No Focal Motor or Sensory Deficit 01/20/18 05:55: Sodium 130 L, Potassium 3.3 L, Chloride 89 L, Carbon Dioxide 31.0, Anion Gap 10, BUN 48 H, Creatinine 1.93 H, Est GFR (MDRD) Af Amer 44 L, Est GFR (MDRD) Non-Af 36 L, BUN/Creatinine Ratio 24.9 H, Glucose 260 H, Calcium 8.6 01/20/18 16:47: Glucose 395 H 01/20/18 18:35: Glucose 477 H* 01/20/18 21:47: Glucose 397 H 01/21/18 02:10: Sodium 134 L, Potassium 3.4 L, Chloride 93 L, Carbon Dioxide 30.0, Anion Gap 11, BUN 58 H, Creatinine 1.99 H, Est GFR (MDRD) Af Amer 42 L, Est GFR (MDRD) Non-Af 35 L, BUN/Creatinine Ratio 29.1 H, Glucose 167 H, Calcium 8.6 01/21/18 05:30: WBC 17.2 H, RBC 4.34 L, Hgb 14.3, Hct 40.7, MCV 93.8, MCH 32.9 H, MCHC 35.1, RDW 14.1, RDW Differential 47.9 H, Plt Count 169, MPV 9.6 01/21/18 05:30: Sodium 135 L, Potassium 3.6, Chloride 97 L, Carbon Dioxide 29.0, Anion Gap 9, BUN 54 H, Creatinine 1.91 H, Est GFR (MDRD) Af Amer 44 L, Est GFR (MDRD) Non-Af 36 L, BUN/Creatinine Ratio 28.3 H, Glucose 114 H, Calcium 8.3 L Rhythm: EKG: ECHO: Stress Test: Cardiac Cath: PCI: CT Surgery: Holter monitor: EPS: PPM: CXR: Chest CT Scan: Medical Necessity - Tobacco Use Smoking Status: Former smoker Assessment/Plan 1. Congestive heart failure-acute on chronic systolic He presents with shortness of breath and is noted to have an elevated natruretic peptide which has responded very well to intravenous Lasix. His echocardiogram demonstrated continued reduction in left ventricular systolic function. He may have a component of bronchitis on top of this as well. This morning he appears to be much clearer. He can probably be discharged on his bumetanide 1 mg twice daily as well as his metolazone once a week 2. Coronary artery disease status post carotid bypass surgery. He appears to be doing well with no evidence of angina and at this time there are no plans to perform any cardiac catheterization. He will remain on his nitrates Ranexa beta-jonathan and lipid-lowering therapy. 3. Status post ICD implantation. He had this interrogated recently at [facility] when he was admitted and it was reported to functioning appropriately he has not had any VT or VF episodes of ventricular defibrillator episodes. We will continue to monitor this closely. 4.Hypertension He does have a history of hypertension with his blood pressure being followed at this time he does not need any adjustments and will continue to follow him closely. 5. Ischemic cardiomyopathy He does have a history of ischemic cardiomyopathy with recent congestive heart failure. He also has some renal dysfunction and will continue to monitor him and adjust his diuretics as appropriate. 6. Hyperlipidemia He will continue on lipid-lowering therapy. I discussed the above with him and his they understand and agreed to proceed with the current therapy. He probably is stable to be discharged Thank you for allowing me to participate in the care of your patient. Please don't hesitate to call if any issues arise
[2018-01-21] MEDS: Levothyroxine 100 MCG Tablet PO (06:52)
[2018-01-21] MEDS: Budesonide Respules 0.5 MG/2 ML AMPUL.NEB. INHALATION (06:54)
[2018-01-21 07:05] LABS: Bedside Glucose 123 mg/dL (70-110)
[2018-01-21] MEDS: Insulin NPH Human 100 UNITS/ML PEN 15 UNITS SC (07:32)
[2018-01-21] MEDS: Aspirin E.C. 81 MG Tablet PO (07:33)
[2018-01-21] MEDS: Isosorbide Mononitrate 60 MG Tablet PO (09:14)
[2018-01-21] MEDS: levETIRAcetam 750 MG Tablet 1500 MG PO (09:14)
[2018-01-21] MEDS: Carvedilol 6.25 MG Tablet 18.75 MG PO (09:14)
[2018-01-21] MEDS: Atorvastatin Calcium 10 MG Tablet PO (09:15)
[2018-01-21] MEDS: Furosemide 40 MG Tablet PO (09:15)
[2018-01-21] MEDS: Magnesium Oxide 400 MG Tablet PO (09:15)
[2018-01-21] MEDS: Mexiletine 150 MG Capsule PO (09:16)
[2018-01-21] MEDS: guaiFENesin 1,200 MG Tablet 1200 MG PO (09:16)
[2018-01-21] MEDS: Clopidogrel Bisulfate 75 MG Tablet PO (09:16)
[2018-01-21] MEDS: Ranolazine 500 MG Tablet 1000 MG PO (09:17)
[2018-01-21] MEDS: LINAGLIPTIN 5 MG TABLET PO (09:17)
[2018-01-21] MEDS: Dofetilide 250 MCG Capsule PO (09:17)
[2018-01-21] MEDS: Multivitamins,Therapeutic Tablet 1 TABLET PO (11:20)
[2018-01-21 11:35] LABS: Bedside Glucose 232 mg/dL (70-110)
--- NOTE | 2018-01-21 13:29 | PCM.DC ---
You will use the following diet at home:: Calorie/Carbohydrate Controlled (specify 1200, 1400, etc) - 1800 DAWN ADA Your food should be the consistency of: Regular Your liquids should be the consistency of: Regular/Thin Discharge Activity: Return to Normal Activity Weight Bearing Status: Full weight bearing Additional Instructions: CHECK BLOOD SUGARS BEFORE EATING AND AT BEDTIME DAILY- CALL YOUR PHYSICIAN IF BLOOD SUGAR OVER 300 OR UNDER 70 Allergies/Adverse Reactions: Allergies amiodarone Allergy (Verified 01/18/18 11:35) Other meperidine [From Demerol] Allergy (Verified 01/18/18 11:35) Low blood pressure spironolactone Allergy (Verified 01/18/18 11:35) Nausea simvastatin Adverse Reaction (Mild, Verified 01/18/18 11:35) Myalgias Medications to take at Discharge Isosorbide Mononitrate [Imdur] 60 mg PO BID 06/02/14 Nitroglycerin [Nitrostat] 0.4 mg SUBLINGUAL Q5M PRN 06/02/14 Ranolazine [Ranexa] 1,000 mg PO BID 06/02/14 Atorvastatin Calcium [Lipitor] 10 mg PO DAILY 08/20/14 Multivitamins,Therapeutic [Multivitamin] 1 tab PO DAILY 08/20/14 Dofetilide 250 mcg PO BID 03/14/17 Mexiletine [Mexitil] 150 mg PO BID 03/14/17 Magnesium Oxide [Magnesium] 400 mg PO DAILY 07/28/17 aspirin 81 mg tablet,delayed release 81 mg PO DAILY 11/12/17 bumetanide 1 mg tablet 1 mg PO BID 11/12/17 clonazepam 1 mg tablet 1 mg PO TID PRN 11/12/17 levetiracetam 1,000 mg tablet 1,500 mg PO BID tab 11/12/17 levothyroxine 100 mcg tablet 100 mcg PO DAILY tab 11/12/17 potassium chloride ER 20 mEq tablet,extended release(part/cryst) 20 meq PO MOWEFR tab 11/12/17 ropinirole 1 mg tablet 2 mg PO QHS tab 11/12/17 carvedilol 12.5 mg tablet 18.75 mg PO BID tab 11/14/17 clopidogrel 75 mg tablet 75 mg PO DAILY 11/14/17 L.acidoph,Paracasei, B.lactis [Probiotic] 1 each PO DAILY 01/18/18 Sitagliptin Phosphate [Januvia] 50 mg PO DAILY 01/18/18 Budesonide Aerosol [Pulmicort Respules] 0.5 mg INHALATION Q12H.RT #60 ampul.neb. 01/21/18 Insulin Detemir [Levemir FlexPen] 35 units SC DAILY #5 insuln.pen 01/21/18 Ipratropium/Albuterol Sulfate [Duoneb] 3 ml INHALATION 4X/DAY #120 ampul.neb 01/21/18 Metolazone [Zaroxolyn] 2.5 mg PO QWEEK #1 tab 01/21/18 [place], Insulin Disposable [Novofine Autocover 30G Needle] 1 ea MISCELL. UD #1 box 01/21/18 The following prescriptions were given: Budesonide Aerosol [Pulmicort Respules] 0.5 mg INHALATION Q12H.RT #60 ampul.neb. Insulin Detemir [Levemir FlexPen] 35 units SC DAILY #5 insuln.pen Metolazone [Zaroxolyn] 2.5 mg PO QWEEK #1 tab [place], Insulin Disposable [Novofine Autocover 30G Needle] 1 ea MISCELL. UD #1 box Ipratropium/Albuterol Sulfate [Duoneb] 3 ml INHALATION 4X/DAY #120 ampul.neb Primary Care Physician: Anabella Lomax MD [Primary Care Provider] - Please follow up with your Primary Care Physician in: THIS WEEK Please Follow Up With: Mason King MD When: DIRECTED
--- NOTE | 2018-01-21 14:40 | CHAPLAIN ---
Type of Pastoral Visit _x__ Initial Visit ___ Follow-up Visit ___ On-call Visit ___ General Patient Visit ___ Spiritual Assessment ___ Family Conference ___ Bereavement ___ Rapid Response ___ Code Blue ___ Other (describe below) Pastoral Care Referral From _x__ Patient ___ Family ___ Nurse ___ Physician ___ Seo Associate ___ Manager [employer] ___ Other (describe below) Sacrament/Intervention _x__ Active listening ___ Anointing ___ Amish ___ Bereavement ___ Communion _x__ Evelyne exploration ___ _x__ Life review _x__ Prayer ___ Reconciliation ___ Sacrament of Sick ___ Supportive presence ___ Wedding ___ Other (describe below) Pastoral Comments
[2018-01-22 07:15] LABS: Bedside Glucose 452 mg/dL (70-110)
[2018-01-22 07:15] LABS: Bedside Glucose > 500 mg/dL (70-110)
[2018-01-22 07:15] LABS: Bedside Glucose 430 mg/dL (70-110)
[2018-01-22 07:15] LABS: Bedside Glucose 426 mg/dL (70-110)
[2018-01-22 07:15] LABS: Bedside Glucose 488 mg/dL (70-110)
--- NOTE | 2018-01-22 18:53 | PCM.DC.SUM ---
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 #4 tracheobronchitis #5 ischemic cardiomyopathy with reduced ejection fraction 36 hypokalemia - Secondary Discharge Diagnosis Chronic Problems (Last Reviewed 11/14/17 @ 11:44 by Ana Cristina Cobos) HLD (hyperlipidemia) (Chronic) Non-ST elevation (NSTEMI) myocardial infarction (Chronic) Angina pectoris (Chronic) CAD (coronary artery disease) (Chronic) Edema (Chronic) Dyspnea (Chronic) Renal disease (Chronic) Fatigue (Chronic) XOCHITL (obstructive sleep apnea) (Chronic) Diabetes mellitus type 2, noninsulin dependent (Chronic) Old myocardial infarction (Chronic) Long-term use of high-risk medication (Chronic) Chronic renal failure (Chronic) Cardiac murmur (Chronic) Hypokalemia (Chronic) Atherosclerotic heart disease of [place] coronary artery without angina pectoris (Chronic) CABG 1988; Reoperation CABG x3 SVG to LAD, SVG to Rt PDA, Radial artery to OM-2 10/08/02; VT ablation @[facility] 01/03/17 [facility] 03/10/2016 Ventricular tachycardia (paroxysmal) (Chronic) ICD (implantable cardioverter-defibrillator) in place (Chronic ~11/2001) Implant 12/10/2001 ICD replacement 06/10/2009, 06/05/2014, Systolic CHF, chronic (Chronic) Cardiomyopathy, ischemic (Chronic) CKD (chronic kidney disease), stage II (Chronic) Type II diabetes mellitus, uncontrolled (Chronic) Esophageal reflux (Chronic) HLD (hyperlipidemia) (Chronic) HTN (hypertension) (Chronic) Hypothyroidism (Chronic) Sleep apnea (Chronic) Hospital Course and Treatment Operations: None Procedures: 2-D Echocardiogram Summary of Care Provided: The patient is a 77 year old M was seen in the emergency room at [facility] chief complaint cough with yellow sputum production ?3 weeks. Patient had been placed on outpatient antibiotics with minimal improvement. Patient was also taking oral medications for type 2 diabetes, he complained of feeling weak and tired. Workup in the emergency room revealed a blood sugar of 384, beta natruretic peptide was elevated at 386, and he was 1.7, chest x-ray however was read out as no acute findings. EKG showed a paced rhythm at 63. Patient was placed in observation status for tracheobronchitis and acute on chronic systolic CHF, he was treated with IV antibiotics, IV diuretics, bronchodilators, IV steroids, and his blood sugars were controlled using basal insulin and sliding scale insulin. Patient was seen in consultation by cardiology and an echocardiogram was obtained which showed an ejection fraction of 30%. Patient was given potassium supplementation due to low potassium. On 01/21/18, patient was seen and examined felt to be in stable condition for discharge home Discharge Activity: Return to Normal Activity Weight Bearing Status: Full weight bearing Home Medications: Medications to take at Discharge Isosorbide Mononitrate [Imdur] 60 mg PO BID 06/02/14 Nitroglycerin [Nitrostat] 0.4 mg SUBLINGUAL Q5M PRN 06/02/14 Ranolazine [Ranexa] 1,000 mg PO BID 06/02/14 Atorvastatin Calcium [Lipitor] 10 mg PO DAILY 08/20/14 Multivitamins,Therapeutic [Multivitamin] 1 tab PO DAILY 08/20/14 Dofetilide 250 mcg PO BID 03/14/17 Mexiletine [Mexitil] 150 mg PO BID 03/14/17 Magnesium Oxide [Magnesium] 400 mg PO DAILY 07/28/17 aspirin 81 mg tablet,delayed release 81 mg PO DAILY 11/12/17 bumetanide 1 mg tablet 1 mg PO BID 11/12/17 clonazepam 1 mg tablet 1 mg PO TID PRN 11/12/17 levetiracetam 1,000 mg tablet 1,500 mg PO BID tab 11/12/17 levothyroxine 100 mcg tablet 100 mcg PO DAILY tab 11/12/17 potassium chloride ER 20 mEq tablet,extended release(part/cryst) 20 meq PO MOWEFR tab 11/12/17 ropinirole 1 mg tablet 2 mg PO QHS tab 11/12/17 carvedilol 12.5 mg tablet 18.75 mg PO BID tab 11/14/17 clopidogrel 75 mg tablet 75 mg PO DAILY 11/14/17 L.acidoph,Paracasei, B.lactis [Probiotic] 1 each PO DAILY 01/18/18 Sitagliptin Phosphate [Januvia] 50 mg PO DAILY 01/18/18 Budesonide Aerosol [Pulmicort Respules] 0.5 mg INHALATION Q12H.RT #60 ampul.neb. 01/21/18 Insulin Detemir [Levemir FlexPen] 35 units SC DAILY #5 insuln.pen 01/21/18 Ipratropium/Albuterol Sulfate [Duoneb] 3 ml INHALATION 4X/DAY #120 ampul.neb 01/21/18 Metolazone [Zaroxolyn] 2.5 mg PO QWEEK #1 tab 01/21/18 [place], Insulin Disposable [Novofine Autocover 30G Needle] 1 ea MISCELL. UD #1 box 01/21/18 Following Prescrptions Were Given to Patient: Budesonide Aerosol [Pulmicort Respules] 0.5 mg INHALATION Q12H.RT #60 ampul.neb. Insulin Detemir [Levemir FlexPen] 35 units SC DAILY #5 insuln.pen Metolazone [Zaroxolyn] 2.5 mg PO QWEEK #1 tab [place], Insulin Disposable [Novofine Autocover 30G Needle] 1 ea MISCELL. UD #1 box Ipratropium/Albuterol Sulfate [Duoneb] 3 ml INHALATION 4X/DAY #120 ampul.[facility] Primary Care Physician: Anabella Lomax MD [Primary Care Provider] - Please follow up with your Primary Care Physician in: THIS WEEK Please Follow Up With: Mason King MD When: DIRECTED Please Follow Up With: Anabella Lomax MD Disposition: Home Minutes spent on discharge:: 25 Patient Condition:: Stable Medical Necessity - Tobacco Use Smoking Status: Former smoker Meaningful Use Info Meaningful Use Diagnoses (Choose all that apply): CHF - CHF GIOVANNI/ARB ordered at discharge?: No Reason GIOVANNI/ARB not ordered?: Worsening renal disease Documented LVEF (%): 30 Code Visit OBSV E&M: 21475 Observation care discharge
--- NOTE | 2018-01-22 19:01 | DS.PCM_ITS ---
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 #4 tracheobronchitis #5 ischemic cardiomyopathy with reduced ejection fraction 36 hypokalemia - Secondary Discharge Diagnosis Chronic Problems (Last Reviewed 11/14/17 @ 11:44 by Ana Cristina Cobos) HLD (hyperlipidemia) (Chronic) Non-ST elevation (NSTEMI) myocardial infarction (Chronic) Angina pectoris (Chronic) CAD (coronary artery disease) (Chronic) Edema (Chronic) Dyspnea (Chronic) Renal disease (Chronic) Fatigue (Chronic) XOCHITL (obstructive sleep apnea) (Chronic) Diabetes mellitus type 2, noninsulin dependent (Chronic) Old myocardial infarction (Chronic) Long-term use of high-risk medication (Chronic) Chronic renal failure (Chronic) Cardiac murmur (Chronic) Hypokalemia (Chronic) Atherosclerotic heart disease of [place] coronary artery without angina pectoris (Chronic) CABG 1988; Reoperation CABG x3 SVG to LAD, SVG to Rt PDA, Radial artery to OM- 2 10/08/02; VT ablation @[facility] 01/03/17 [facility] 03/10/2016 Ventricular tachycardia (paroxysmal) (Chronic) ICD (implantable cardioverter-defibrillator) in place (Chronic ~11/2001) Implant 12/10/2001 ICD replacement 06/10/2009, 06/05/2014, Systolic CHF, chronic (Chronic) Cardiomyopathy, ischemic (Chronic) CKD (chronic kidney disease), stage II (Chronic) Type II diabetes mellitus, uncontrolled (Chronic) Esophageal reflux (Chronic) HLD (hyperlipidemia) (Chronic) HTN (hypertension) (Chronic) Hypothyroidism (Chronic) Sleep apnea (Chronic) Hospital Course and Treatment Operations: None Procedures: 2-D Echocardiogram Summary of Care Provided: The patient is a 77 year old M was seen in the emergency room at [facility] chief complaint cough with yellow sputum production ?3 weeks. Patient had been placed on outpatient antibiotics with minimal improvement. Patient was also taking oral medications for type 2 diabetes, he complained of feeling weak and tired. Workup in the emergency room revealed a blood sugar of 384, beta natruretic peptide was elevated at 386, and he was 1.7 , chest x-ray however was read out as no acute findings. EKG showed a paced rhythm at 63. Patient was placed in observation status for tracheobronchitis and acute on chronic systolic CHF, he was treated with IV antibiotics, IV diuretics, bronchodilators, IV steroids, and his blood sugars were controlled using basal insulin and sliding scale insulin. Patient was seen in consultation by cardiology and an echocardiogram was obtained which showed an ejection fraction of 30%. Patient was given potassium supplementation due to low potassium. On 01/21/18, patient was seen and examined felt to be in stable condition for discharge home Discharge Activity: Return to Normal Activity Weight Bearing Status: Full weight bearing Home Medications: Medications to take at Discharge Isosorbide Mononitrate [Imdur] 60 mg PO BID 06/02/14 Nitroglycerin [Nitrostat] 0.4 mg SUBLINGUAL Q5M PRN 06/02/14 Ranolazine [Ranexa] 1,000 mg PO BID 06/02/14 Atorvastatin Calcium [Lipitor] 10 mg PO DAILY 08/20/14 Multivitamins,Therapeutic [Multivitamin] 1 tab PO DAILY 08/20/14 Dofetilide 250 mcg PO BID 03/14/17 Mexiletine [Mexitil] 150 mg PO BID 03/14/17 Magnesium Oxide [Magnesium] 400 mg PO DAILY 07/28/17 aspirin 81 mg tablet,delayed release 81 mg PO DAILY 11/12/17 bumetanide 1 mg tablet 1 mg PO BID 11/12/17 clonazepam 1 mg tablet 1 mg PO TID PRN 11/12/17 levetiracetam 1,000 mg tablet 1,500 mg PO BID tab 11/12/17 levothyroxine 100 mcg tablet 100 mcg PO DAILY tab 11/12/17 potassium chloride ER 20 mEq tablet,extended release(part/cryst) 20 meq PO MOWEFR tab 11/12/17 ropinirole 1 mg tablet 2 mg PO QHS tab 11/12/17 carvedilol 12.5 mg tablet 18.75 mg PO BID tab 11/14/17 clopidogrel 75 mg tablet 75 mg PO DAILY 11/14/17 L.acidoph,Paracasei, B.lactis [Probiotic] 1 each PO DAILY 01/18/18 Sitagliptin Phosphate [Januvia] 50 mg PO DAILY 01/18/18 Budesonide Aerosol [Pulmicort Respules] 0.5 mg INHALATION Q12H.RT #60 ampul.neb. 01/21/18 Insulin Detemir [Levemir FlexPen] 35 units SC DAILY #5 insuln.pen 01/21/18 Ipratropium/Albuterol Sulfate [Duoneb] 3 ml INHALATION 4X/DAY #120 ampul.neb Metolazone [Zaroxolyn] 2.5 mg PO QWEEK #1 tab 01/21/18 Dutton, Insulin Disposable [Novofine Autocover 30G Needle] 1 ea MISCELL. UD #1 box 01/21/18 Following Prescrptions Were Given to Patient: Budesonide Aerosol [Pulmicort Respules] 0.5 mg INHALATION Q12H.RT #60 ampul.neb. Insulin Detemir [Levemir FlexPen] 35 units SC DAILY #5 insuln.pen Metolazone [Zaroxolyn] 2.5 mg PO QWEEK #1 tab Dutton, Insulin Disposable [Novofine Autocover 30G Needle] 1 ea MISCELL. UD #1 box Ipratropium/Albuterol Sulfate [Duoneb] 3 ml INHALATION 4X/DAY #120 ampul.[facility] Primary Care Physician: Anabella Lomax MD [Primary Care Provider] - Please follow up with your Primary Care Physician in: THIS WEEK Please Follow Up With: Mason King MD When: DIRECTED Please Follow Up With: Anabella Lomax MD Disposition: Home Minutes spent on discharge:: 25 Patient Condition:: Stable Medical Necessity - Tobacco Use Smoking Status: Former smoker Meaningful Use Info Meaningful Use Diagnoses (Choose all that apply): CHF - CHF GIOVANNI/ARB ordered at discharge?: No Reason GIOVANNI/ARB not ordered?: Worsening renal disease Documented LVEF (%): 30 Code Visit OBSV E&M: 17268 Observation care discharge
== END 2018-01-21 13:31 | disposition home or self-care (01) ==
LOC: ED 12:41 → PCU 15:42
PROVIDERS: Internal Medicine; Admitting Provider Internal Medicine; Emergency Provider Emergency Medicine; Family Provider Internal Medicine; PCP Internal Medicine; Visit Provider Internal Medicine
DX: I13.0 Hypertensive heart and chronic kidney disease with heart failure and stage 1 through stage 4 chronic kidney disease, or unspecified chronic kidney disease (principal); I50.23 Acute on chronic systolic (congestive) heart failure; N18.4 Chronic kidney disease, stage 4 (severe); E11.22 Type 2 diabetes mellitus with diabetic chronic kidney disease; J40 Bronchitis, not specified as acute or chronic; I25.5 Ischemic cardiomyopathy; E87.6 Hypokalemia; E78.5 Hyperlipidemia, unspecified; I25.2 Old myocardial infarction; I25.10 Atherosclerotic heart disease of native coronary artery without angina pectoris; G47.33 Obstructive sleep apnea (adult) (pediatric); E03.9 Hypothyroidism, unspecified; E11.65 Type 2 diabetes mellitus with hyperglycemia; Z87.891 Personal history of nicotine dependence; Z95.810 Presence of automatic (implantable) cardiac defibrillator; Z95.1 Presence of aortocoronary bypass graft; Z79.82 Long term (current) use of aspirin; Z79.02 Long term (current) use of antithrombotics/antiplatelets; Z79.899 Other long term (current) drug therapy; Z79.84 Long term (current) use of oral hypoglycemic drugs
CPT/HCPCS: 36415; 71045; 80048; 80069; 82009; 82947; 82962; 83036; 83880; 84443; 84484; 85025; 85027; 93005; 93306; 94640; 96365; 96366; 96372; 96375; 96376; 99218; 99285; J7040; Q9957; A4216; C8929; G0378; J1940

== ENCOUNTER → 2018-01-18 11:49 | Outpatient (CLI) | payer MEDICARE, SELFPAY ==
[2018-01-18 12:26] LABS: Albumin, Serum 4.1 g/dL (3.2-5.0); BUN 37 mg/dL (7-18); BUN/Creat Ratio 20.9 RATIO (10-20); Calcium,Total 8.7 mg/dL (8.5-10.1); Chloride 89 mmol/L (98-107); Creatinine, Serum 1.77 mg/dL (0.70-1.30); EST Glomerular Filtration Rate 40 mL/min (>60); Est Glom Filt Rate - Afr Amer 48 mL/min (>60); Glucose 398 mg/dL (74-106); Phosphorus 4.5 mg/dL (2.5-4.9); Potassium 4.2 mmol/L (3.5-5.1); Sodium Level 129 mmol/L (136-145)
== END ==
PROVIDERS: Family Provider Internal Medicine; PCP Internal Medicine; Visit Provider Internal Medicine
DX: I50.9 Heart failure, unspecified (principal)
CPT/HCPCS: 80069; 84484

== ENCOUNTER → 2018-02-20 07:44 | Outpatient (CLI) | payer MEDICARE, SELFPAY ==
[2018-02-20 08:57] LABS: AST(SGOT) 29 U/L (15-37); Alanine Aminotransfer ALT/SGPT 25 U/L (16-61); Albumin, Serum 3.5 g/dL (3.2-5.0); Alkaline Phosphatase 104 U/L (45-117); Anion Gap 13 (5-15); BUN 29 mg/dL (7-18); BUN/Creat Ratio 17.2 RATIO (10-20); Bilirubin, Direct 0.16 mg/dL (0.00-0.30); Calcium,Total 8.6 mg/dL (8.5-10.1); Chloride 99 mmol/L (98-107); Cholesterol 139 mg/dL (200); Creatinine, Serum 1.69 mg/dL (0.70-1.30); EST Glomerular Filtration Rate 42 mL/min (>60); Est Glom Filt Rate - Afr Amer 51 mL/min (>60); Glucose 176 mg/dL (74-106); High Density Lipoprotein 61 mg/dL; Potassium 3.9 mmol/L (3.5-5.1); Protein, Total 7.5 g/dL (6.4-8.2); Sodium Level 136 mmol/L (136-145); Triglycerides 203 mg/dL; Very Low Density Lipoprotein 41 mg/dL (5-40)
== END ==
PROVIDERS: Family Provider Internal Medicine; PCP Internal Medicine; Visit Provider Internal Medicine Cardiovascular Disease
DX: E78.5 Hyperlipidemia, unspecified (principal); N28.9 Disorder of kidney and ureter, unspecified
CPT/HCPCS: 36415; 80048; 80061; 80076

== ENCOUNTER → 2018-04-25 12:35 | Outpatient (CLI) | payer MEDICARE, SELFPAY ==
[2018-04-25 13:01] LABS: Absolute Lymphocyte Count 1.07 X10^3/ul (0.83-4.51); Absolute Neutrophil Count 6.1 X10^3/uL (2.0-7.7); Basophil# 0.03 X10^3/uL; Basophil% 0.4 % (0-1); Eosinophil# 0.13 X10^3/uL; Eosinophils% 1.7 % (0-5); Hemoglobin 12.6 g/dl (13.0-16.5); Lymphocyte # 1.07 X10^3/ul (4.0); Lymphocyte % 13.6 % (19-41); Mean Corp Hgb Conc 34.1 g/gl (32-36); Mean Corpuscular Hgb 33.4 pg (27.0-32.0); Mean Corpuscular Volume 98.1 fL (80-94); Mean Platelet Vol. 10.9 fl (6.2-12.0); Monocyte# 0.48 X10^3/uL; Monocyte% 6.1 % (0-10); Neutrophil # 6.14 X10^3/uL (2.7-7.7); Neutrophil % 77.9 % (47-70); POSITIVE COUNT NO; POSITIVE DIFFERENTIAL NO; POSITIVE MORPHOLOGY NO; Platelet Count 98 K/mm3 (150-450); RBC Distribution Width CV 13.4 % (11.6-14.6); Red Blood Count 3.77 M/mm3 (4.6-6.2); White Blood Count 7.9 K/mm3 (4.4-11.0)
[2018-04-25 13:23] LABS: Albumin, Serum 3.6 g/dL (3.2-5.0); BUN 29 mg/dL (7-18); BUN/Creat Ratio 14.6 RATIO (10-20); Calcium,Total 8.8 mg/dL (8.5-10.1); Chloride 97 mmol/L (98-107); Creatinine, Serum 1.98 mg/dL (0.70-1.30); EST Glomerular Filtration Rate 35 mL/min (>60); Est Glom Filt Rate - Afr Amer 42 mL/min (>60); Glucose 255 mg/dL (74-106); Magnesium 1.9 mg/dL (1.6-2.6); Phosphorus 3.4 mg/dL (2.5-4.9); Potassium 4.5 mmol/L (3.5-5.1); Sodium Level 134 mmol/L (136-145); T4 Free Direct 1.08 ng/dL (0.76-1.46); Thyroid Stim Hormone (TSH) 2.08 uIU/mL (0.358-3.74)
== END ==
PROVIDERS: Family Provider Internal Medicine; PCP Internal Medicine; Visit Provider Internal Medicine
DX: I95.1 Orthostatic hypotension (principal); E03.9 Hypothyroidism, unspecified
CPT/HCPCS: 80069; 83735; 84439; 84443; 84484; 85025

== ENCOUNTER → 2018-07-05 11:47 | Outpatient (CLI) | payer MEDICARE, SELFPAY ==
[2018-07-05 13:14] LABS: Anion Gap 12 (5-15); BUN 30 mg/dL (7-18); BUN/Creat Ratio 14.8 RATIO (10-20); Calcium,Total 8.6 mg/dL (8.5-10.1); Chloride 91 mmol/L (98-107); Creatinine, Serum 2.03 mg/dL (0.70-1.30); EST Glomerular Filtration Rate 34 mL/min (>60); Est Glom Filt Rate - Afr Amer 41 mL/min (>60); Glucose 294 mg/dL (74-106); Magnesium 1.8 mg/dL (1.6-2.6); Potassium 3.2 mmol/L (3.5-5.1); Sodium Level 130 mmol/L (136-145)
== END ==
PROVIDERS: Family Provider Internal Medicine; PCP Internal Medicine; Visit Provider Internal Medicine Cardiovascular Disease
DX: I25.10 Atherosclerotic heart disease of native coronary artery without angina pectoris (principal); I11.0 Hypertensive heart disease with heart failure; I50.22 Chronic systolic (congestive) heart failure; I47.2 Ventricular tachycardia; I25.5 Ischemic cardiomyopathy; I25.2 Old myocardial infarction; N28.9 Disorder of kidney and ureter, unspecified; Z95.1 Presence of aortocoronary bypass graft
CPT/HCPCS: 36415; 80048; 83735

== ENCOUNTER → 2018-08-26 10:59 | Outpatient (CLI) | payer MEDICARE, SELFPAY ==
[2018-08-26 12:01] LABS: AST(SGOT) 27 U/L (15-37); Alanine Aminotransfer ALT/SGPT 26 U/L (16-61); Albumin, Serum 3.4 g/dL (3.2-5.0); Alkaline Phosphatase 158 U/L (45-117); Bilirubin, Direct 0.35 mg/dL (0.00-0.30); Cholesterol 144 mg/dL (200); Globulin 4.8 g/dL (2.2-4.2); High Density Lipoprotein 75 mg/dL; Protein, Total 8.2 g/dL (6.4-8.2); Triglycerides 102 mg/dL; Very Low Density Lipoprotein 20 mg/dL (5-40)
== END ==
PROVIDERS: Family Provider Internal Medicine; PCP Internal Medicine; Referring Provider Internal Medicine Cardiovascular Disease; Visit Provider Internal Medicine Cardiovascular Disease
DX: E78.5 Hyperlipidemia, unspecified (principal); Z79.899 Other long term (current) drug therapy
CPT/HCPCS: 36415; 80061; 80076

== ENCOUNTER → 2018-09-17 11:04 | Outpatient (CLI) | payer MEDICARE, SELFPAY ==
[2018-08-30 13:41] VITALS: BMI 29.2
[2018-09-17 11:46] LABS: Hematocrit 36.3 % (40-54); Hemoglobin 12.3 g/dl (13.0-16.5); Mean Corp Hgb Conc 33.9 g/gl (32-36); Mean Corpuscular Hgb 33.6 pg (27.0-32.0); Mean Corpuscular Volume 99.2 fL (80-94); Mean Platelet Vol. 10.4 fl (6.2-12.0); Platelet Count 142 K/mm3 (150-450); RBC Distribution Width CV 13.5 % (11.6-14.6); RBC Distribution Width SD 47.1 fl (35.1-43.9); Red Blood Count 3.66 M/mm3 (4.6-6.2); White Blood Count 7.2 K/mm3 (4.4-11.0)
[2018-09-17 11:47] LABS: Scan Indicated on CBC? Y/N NO
[2018-09-17 12:01] LABS: BNP,B-Type NATRIURETIC PEPTIDE 734.1 pg/mL (0-100)
[2018-09-17 12:04] LABS: ALB/GLOB Ratio 0.9 RATIO (0.9-2.4); AST(SGOT) 27 U/L (15-37); Alanine Aminotransfer ALT/SGPT 25 U/L (16-61); Albumin, Serum 3.6 g/dL (3.2-5.0); Alkaline Phosphatase 136 U/L (45-117); Anion Gap 10 (5-15); BUN 28 mg/dL (7-18); BUN/Creat Ratio 13.1 RATIO (10-20); Calcium,Total 9.2 mg/dL (8.5-10.1); Chloride 94 mmol/L (98-107); Creatinine, Serum 2.14 mg/dL (0.70-1.30); EST Glomerular Filtration Rate 32 mL/min (>60); Est Glom Filt Rate - Afr Amer 39 mL/min (>60); Globulin 4.2 g/dL (2.2-4.2); Glucose 197 mg/dL (74-106); Potassium 4.5 mmol/L (3.5-5.1); Protein, Total 7.8 g/dL (6.4-8.2); Sodium Level 133 mmol/L (136-145); Thyroid Stim Hormone (TSH) 2.73 uIU/mL (0.358-3.74)
== END ==
PROVIDERS: PCP Internal Medicine; Visit Provider Internal Medicine
DX: R56.9 Unspecified convulsions (principal); R55 Syncope and collapse; I49.9 Cardiac arrhythmia, unspecified
CPT/HCPCS: 80053; 80177; 83880; 84443; 84484; 85027

== ENCOUNTER 2018-09-22 04:34 | Inpatient (IN) | payer MEDICARE, SELFPAY ==
[2018-09-22] VITALS (10 sets, daily range): BP systolic 105–141; BP diastolic 60–86; PULSE 59–84; RESP 15–18; TEMP 35.9–36.8; O2SAT 93–99; BMI 29.0; BMI 29.1
--- NOTE | 2018-09-22 04:57 | CT_ITS ---
STUDY: CT ABDOMEN AND PELVIS WITHOUT CONTRAST REASON FOR EXAM: Male, 78 years old. Nausea vomiting and abdominal pain RADIATION DOSAGE (If Supplied By Facility): CTDIvol = ( 20.43 ) mGy, DLP = ( 1023.52 ) mGycm TECHNIQUE: Transaxial images were obtained from the dome of the diaphragm to the symphysis pubis without oral contrast, and without intravenous contrast. Sagittal and coronal images were reconstructed. Individualized dose optimization techniques were used for this CT. COMPARISON: None. FINDINGS: The lung bases are clear. The liver is normal. No dilated intrahepatic biliary radicles. Previous cholecystectomy The spleen is normal. The pancreas is normal. There is a 1.8 cm right adrenal nodule and a curvilinear 2.9 x 1.4 cm density attached to the left adrenal. The kidneys are normal with no masses, calculi or hydronephrosis The stomach is normal. There is no bowel distention, acute appendicitis or diverticulitis. No constricting lesions are seen in large bowel. There is a mild degree of fecal stasis. The abdominal wall is intact with no hernias. There is no ascites or any free intraperitoneal air. There is a 1.0 cm area of epiploic appendagitis in the left lower quadrant. The aorta and iliac vessels are heavily calcified moreno. There is no retrocrural, retroperitoneal or mesenteric adenopathy. A a total right hip replacement The urinary bladder is normal. The prostate is normal--. There is no inguinal or pelvic adenopathy. There is no inguinal hernia. . CT/Abdomen/Pelvis without Cont IMPRESSION: No acute appendicitis or diverticulitis.. A 1 cm left lower quadrant epiploic appendagitis. Mild fecal stasis. Small benign looking adrenal densities Electronically Signed: Vernon Coronel MD at 5:51 EST Tel , Service support ,
[2018-09-22] MEDS: 0.9% Normal Saline 1,000 ML 1000 ML IV (05:03)
[2018-09-22] MEDS: Ondansetron 4 MG/2 ML Vial IV (05:03)
[2018-09-22 05:04] LABS: Absolute Lymphocyte Count 1.74 X10^3/ul (0.83-4.51); Absolute Neutrophil Count 5.1 X10^3/uL (2.0-7.7); Basophil# 0.02 X10^3/uL; Basophil% 0.3 % (0-1); Eosinophil# 0.06 X10^3/uL; Eosinophils% 0.8 % (0-5); Hematocrit 35.8 % (40-54); Hemoglobin 12.6 g/dl (13.0-16.5); Lymphocyte # 1.74 X10^3/ul (4.0); Mean Corp Hgb Conc 35.2 g/gl (32-36); Mean Corpuscular Hgb 33.9 pg (27.0-32.0); Mean Corpuscular Volume 96.2 fL (80-94); Mean Platelet Vol. 9.8 fl (6.2-12.0); Monocyte# 0.69 X10^3/uL; Monocyte% 9.1 % (0-10); Neutrophil # 5.05 X10^3/uL (2.7-7.7); Neutrophil % 66.5 % (47-70); Platelet Count 180 K/mm3 (150-450); RBC Distribution Width CV 13.2 % (11.6-14.6); Red Blood Count 3.72 M/mm3 (4.6-6.2); White Blood Count 7.6 K/mm3 (4.4-11.0)
--- NOTE | 2018-09-22 05:05 | EKG12_ITS ---
Test Reason : NAUSEA/VOMITING Blood Pressure : / mmHG Vent. Rate : 060 BPM Atrial Rate : 060 BPM P-R Int : 178 ms QRS Dur : 180 ms QT Int : 586 ms P-R-T Axes : 077 -50 129 degrees QTc Int : 586 ms AV dual-paced rhythm Biventricular pacemaker detected Abnormal ECG Confirmed by AYO ROGERS, CORRINA ([id number]), makeup editor YVES OLSEN ([id number]) on 09/24/2018 4:16:27 PM Referred By: ADONAY Confirmed By:CORRINA ROLLINS MD
[2018-09-22 05:06] LABS: POSITIVE COUNT NO; POSITIVE DIFFERENTIAL NO; POSITIVE MORPHOLOGY NO
[2018-09-22 05:17] LABS: ALB/GLOB Ratio 0.8 RATIO (0.9-2.4); AST(SGOT) 33 U/L (15-37); Alanine Aminotransfer ALT/SGPT 25 U/L (16-61); Albumin, Serum 3.5 g/dL (3.2-5.0); Alkaline Phosphatase 132 U/L (45-117); Anion Gap 13 (5-15); BUN 28 mg/dL (7-18); BUN/Creat Ratio 12.6 RATIO (10-20); Chloride 88 mmol/L (98-107); Creatinine, Serum 2.23 mg/dL (0.70-1.30); EST Glomerular Filtration Rate 30 mL/min (>60); Est Glom Filt Rate - Afr Amer 37 mL/min (>60); Estimated Creatinine Clearance 25.52 ml/min; Globulin 4.2 g/dL (2.2-4.2); Glucose 149 mg/dL (74-106); Lipase 114 U/L (73-393); Protein, Total 7.7 g/dL (6.4-8.2); Sodium Level 128 mmol/L (136-145)
--- NOTE | 2018-09-22 06:02 | PCM.HP.STD ---
Problem List (1) Epiploic appendagitis Status: Acute (2) CKD (chronic kidney disease) stage 4, GFR 15-29 ml/min Status: Chronic (3) HLD (hyperlipidemia) Status: Chronic Qualifiers: Hyperlipidemia type: unspecified Qualified Code(s): E78.5 - Hyperlipidemia, unspecified (4) Non-ST elevation (NSTEMI) myocardial infarction Status: Chronic (5) CAD (coronary artery disease) Status: Chronic Qualifiers: Coronary Disease-Associated Artery/Lesion type: bypass graft [place] vs. transplanted heart: [place] heart Associated angina: angina presence unspecified Qualified Code(s): I25.810 - Atherosclerosis of coronary artery bypass graft(s) without angina pectoris (6) XOCHITL (obstructive sleep apnea) Status: Chronic (7) Diabetes mellitus type 2, noninsulin dependent Status: Chronic (8) Atherosclerotic heart disease of [place] coronary artery without angina pectoris Status: Chronic Qualifiers: [place] vs. transplanted heart: [place] heart Qualified Code(s): I25.10 - Atherosclerotic heart disease of [place] coronary artery without angina pectoris Comment: CABG 1988; Reoperation CABG x3 SVG to LAD, SVG to Rt PDA, Radial artery to OM-2 10/08/02; VT ablation @[facility] 01/03/17 [facility] 03/10/2016 (9) Ventricular tachycardia (paroxysmal) Status: Chronic (10) ICD (implantable cardioverter-defibrillator) in place Status: Chronic Comment: Implant 12/10/2001 ICD replacement 06/10/2009, 06/05/2014, (11) Systolic CHF, chronic Status: Chronic (12) Cardiomyopathy, ischemic Status: Chronic (13) Subdural hematoma Status: Resolved (14) Esophageal reflux Status: Chronic Qualifiers: Esophagitis presence: esophagitis presence not specified Qualified Code(s): K21.9 - Gastro-esophageal reflux disease without esophagitis (15) HLD (hyperlipidemia) Status: Chronic Qualifiers: Hyperlipidemia type: unspecified Qualified Code(s): E78.5 - Hyperlipidemia, unspecified (16) HTN (hypertension) Status: Chronic Qualifiers: Hypertension type: essential hypertension Qualified Code(s): I10 - Essential (primary) hypertension (17) Hypothyroidism Status: Chronic Qualifiers: Hypothyroidism type: unspecified Qualified Code(s): E03.9 - Hypothyroidism, unspecified History of Present Illness Date of Admission: 09/22/18 Chief Complaint: Nausea, Emesis, Abdominal Pain The patient is a 78 y/o M w/ PMHx: CAD s/p CABG, HTN, HLD, PAF/Ventricular Arrhythmia, Chronic Systolic CHF/Ischemic Cardiomyopathy s/p AICD, Diabetes mellitus type II, XOCHITL who presents to the [facility] ED on 09/22/18 with history of nausea, emesis, inability to tolerate oral intake in addition to intermittent abdominal diffuse cramping x 24 hours, noted to be episode in nature, pain 10/10 severe when present. Work-up in the ED included T 96.7, heart rate 84, BP 141/86, respiratory rate 18, 99% on room air, CBC with WBC 7.6, hemoglobin 12.6, platelets 180 without shift, CMP with sodium 128, chloride 88, BUN/creatinine 28/2.23, glucose 149, lipase 114, CT abdomen pelvis with no acute appendicitis over diverticulitis, 1 cm left lower quadrant epiploic appendagitis, mild fecal stasis, small benign looking adrenal densities. In the ED patient administered normal saline, Zofran. Past Medical History Past Medical History (Chronic Problems): Chronic Problems (Last Reviewed 08/30/18 @ 13:48 by Ana Cristina Cobos) CKD (chronic kidney disease) stage 4, GFR 15-29 ml/min (Chronic) HLD (hyperlipidemia) (Chronic) Non-ST elevation (NSTEMI) myocardial infarction (Chronic) Angina pectoris (Chronic) CAD (coronary artery disease) (Chronic) Edema (Chronic) Dyspnea (Chronic) Renal disease (Chronic) Fatigue (Chronic) XOCHITL (obstructive sleep apnea) (Chronic) Diabetes mellitus type 2, noninsulin dependent (Chronic) Old myocardial infarction (Chronic) Long-term use of high-risk medication (Chronic) Chronic renal failure (Chronic) Cardiac murmur (Chronic) Hypokalemia (Chronic) Atherosclerotic heart disease of [place] coronary artery without angina pectoris (Chronic) CABG 1988; Reoperation CABG x3 SVG to LAD, SVG to Rt PDA, Radial artery to OM-2 10/08/02; VT ablation @[facility] 01/03/17 [facility] 03/10/2016 Ventricular tachycardia (paroxysmal) (Chronic) ICD (implantable cardioverter-defibrillator) in place (Chronic ~11/2001) Implant 12/10/2001 ICD replacement 06/10/2009, 06/05/2014, Systolic CHF, chronic (Chronic) Cardiomyopathy, ischemic (Chronic) CKD (chronic kidney disease), stage II (Chronic) Type II diabetes mellitus, uncontrolled (Chronic) Esophageal reflux (Chronic) HLD (hyperlipidemia) (Chronic) HTN (hypertension) (Chronic) Hypothyroidism (Chronic) Sleep apnea (Chronic) Medical History: Medical History (Last Reviewed 08/30/18 @ 13:48 by Ana Cristina Cobos) HLD (hyperlipidemia) (Chronic) E78.5 Non-ST elevation (NSTEMI) myocardial infarction (Chronic) I21.4 Angina pectoris (Chronic) I20.9 CAD (coronary artery disease) (Chronic) I25.10 Edema (Chronic) R60.9 Dyspnea (Chronic) R06.00 Renal disease (Chronic) N28.9 Fatigue (Chronic) R53.83 XOCHITL (obstructive sleep apnea) (Chronic) G47.33 Diabetes mellitus type 2, noninsulin dependent (Chronic) E11.9 Old myocardial infarction (Chronic) I25.2 Long-term use of high-risk medication (Chronic) Z79.899 Chronic renal failure (Chronic) N18.9 Cardiac murmur (Chronic) R01.1 Hypokalemia (Chronic) E87.6 Atherosclerotic heart disease of [place] coronary artery without angina pectoris (Chronic) I25.10 CABG 1988; Reoperation CABG x3 SVG to LAD, SVG to Rt PDA, Radial artery to OM-2 10/08/02; VT ablation @[facility] 01/03/17 [facility] 03/10/2016 Ventricular tachycardia (paroxysmal) (Chronic) I47.2 ICD (implantable cardioverter-defibrillator) in place (Chronic) Onset Date: ~11/2001 Z95.810 Implant 12/10/2001 ICD replacement 06/10/2009, 06/05/2014, Systolic CHF, chronic (Chronic) I50.22 Cardiomyopathy, ischemic (Chronic) I25.5 Subdural hematoma (Resolved) I62.00 CAD (coronary artery disease) (Inactive) I25.10 CHF (congestive heart failure) (Inactive) I50.9 Visual hallucination (Inactive) R44.1 Allergies amiodarone Allergy (Verified 09/22/18 04:37) Other meperidine [From Demerol] Allergy (Verified 09/22/18 04:37) Low blood pressure spironolactone Allergy (Verified 09/22/18 04:37) Nausea simvastatin Adverse Reaction (Mild, Verified 09/22/18 04:37) Myalgias Home Medications: Ambulatory Orders Medication Instructions Recorded Nitroglycerin [Nitrostat] 0.4 mg SUBLINGUAL Q5M PRN 06/02/14 Ranolazine [Ranexa] 1,000 mg PO BID 06/02/14 Atorvastatin Calcium [Lipitor] 10 mg PO DAILY 08/20/14 Dofetilide 250 mcg PO BID 03/14/17 aspirin 81 mg tablet,delayed 81 mg PO DAILY 11/12/17 release bumetanide 1 mg tablet 1 mg PO BID 11/12/17 levothyroxine 100 mcg tablet 100 mcg PO DAILY tab 11/12/17 carvedilol 12.5 mg tablet 18.75 mg PO BID tab 11/14/17 clopidogrel 75 mg tablet 75 mg PO DAILY 11/14/17 Sitagliptin Phosphate [Januvia] 50 mg PO DAILY 01/18/18 lactobacillus combination no.8 3 3,000 mmu cells PO QDAY 02/22/18 billion cell capsule clonazepam 1 mg tablet 1 mg PO BID PRN 08/30/18 isosorbide mononitrate ER 30 mg 30 mg PO DAILY 08/30/18 tablet,extended release 24 hr levetiracetam 1,000 mg tablet 500 mg PO BID tab 08/30/18 metolazone 2.5 mg tablet 2.5 mg PO .COMPLEX tab 08/30/18 mexiletine 150 mg capsule 150 mg PO TID cap 08/30/18 potassium chloride ER 20 mEq 20 meq PO .3xweek tab 08/30/18 tablet,extended release(part/cryst) ropinirole 1 mg tablet 2 mg PO .COMPLEX tab 08/30/18 Surgical History: Surgical History (Last Reviewed 08/30/18 @ 13:48 by Ana Cristina Cobos) Aortocoronary bypass status (Resolved) Z95.1 CABG 1988; Reoperation CABG x3 SVG to LAD, SVG to Rt PDA, Radial artery to OM-2 10/08/02; VT ablation @[facility] 01/03/17 H/O prior ablation treatment Onset Date: ~01/03/17 Z98.890 VT Ablation @ [facility] History of craniotomy Onset Date: ~06/2017 Z98.890 History of herniorrhaphy Z98.890, Z87.19 History of hip replacement Z96.649 RT History of knee surgery Z98.890 Rt S/P CABG (coronary artery bypass graft) (Inactive) Z95.1 Surgical History: cholecystectomy, coronary bypass surgery, - - ICD placement, CABG x 3, Cholecystectomy, RTHR, RTKR, Cardiac ablation, Craniotomy s/p SDH w/ fall. Psychiatric History: Anxiety, Depression Lives: Spouse/ Significant Other Smoking Status: Former smoker - Quit 1963. Tobacco Use: Non-smoker Alcohol: Rare Drugs: None - *Family History Paternal Family History: Family History (Last Reviewed 08/30/18 @ 13:48 by Ana Cristina Cobos) Father CAD (coronary artery disease) Hypertension Myocardial infarction CHF (congestive heart failure) Mother CAD (coronary artery disease) Myocardial infarction Hypothyroid High cholesterol History Items: Diabetes, Heart Disease, Hypertension Maternal Family History: Family History (Last Reviewed 08/30/18 @ 13:48 by Ana Cristina Cobos) Father CAD (coronary artery disease) Hypertension Myocardial infarction CHF (congestive heart failure) Mother CAD (coronary artery disease) Myocardial infarction Hypothyroid High cholesterol History Items: High Cholesterol, Heart Disease, Hypertension Review of Systems Constitutional: Reports: Anorexia, Malaise, Weakness, Fatigue. Denies: Chills, Fever, Weight Change HEENT: Denies: Head Aches, Sinus Congestion, Sinus Drainage Cardiovascular: Denies: Chest Pain, Palpitations Respiratory: Denies: Cough, Shortness of breath at rest, Sputum production Gastrointestinal: Reports: Abdominal Pain, Nausea, Vomiting Genitourinary: Denies: Dysuria Musculoskeletal: Denies: Joint Pain, Joint Tenderness Skin: Denies: Rash, Wounds Neurological: Denies: Numbness, Tingling, Focal weakness Psychiatric: Reports: Anxiety, Depression. Denies: Homicidal Ideations, Suicidal Ideations Hematologic/ Lymphatic: Reports: Anemia, Easy Bruising, Easy Bleeding VTE Information - Inpt Only VTE Present on Admission: No VTE Mechan Device Prophylaxis: SCD's VTE Pharm Prophylaxis ordered?: Yes Patient Problems: Active and Suspected Problems (Last Reviewed 08/30/18 @ 13:48 by Ana Cristina Cobos) Epiploic appendagitis (Acute) Subjective: Physical Examination: General: awake, alert, oriented x 3 and cooperative, seated upright in the ED bed in no apparent distress, notes stomach pain currently subsided. Skin: normal color, turgor, no icterus, cyanosis. HEENT: AT/NC, EOMI, PERRLA, moderately dry MM, no carotid bruits or JVD noted. Lungs: CTA bilaterally, moderate effort, mild decrease BL bases, no rales, ronchi or wheezing. Heart: Regular rate and rhythm (paced); no gallop, rub audible. Abdomen: soft, NTTP, ND, moderately hyperactive BS, no HSM. Extremities: no cyanosis, clubbing, or edema. Neurological: patient awake, alert, oriented x 3; cognitive function intact; pupils equally reactive to light and accomodation; cranial nerves II-XII grossly normal, moving all 4 extremities, no focal deficits, strength severely globally decreased. Psychiatric: affect appears fatigued, flat, no acute evidence of depressive or anxiety feelings. - Physical Exam Vital Signs Temp Pulse Resp BP Pulse Ox 96.7 F L 84 18 141/86 H 99 09/22/18 04:35 09/22/18 04:35 09/22/18 04:35 09/22/18 04:35 09/22/18 04:35 Weight: 185 lb 10.067 oz Body Mass Index (BMI) 29.0 Finger Stick Blood Glucose 249 Laboratory Tests Past 24 Hrs 09/22/18 09/22/18 04:40 04:40 WBC 7.6 RBC 3.72 L Hgb 12.6 L Hct 35.8 L MCV 96.2 H MCH 33.9 H MCHC 35.2 RDW 13.2 RDW Differential 44.0 H Plt Count 180 MPV 9.8 Immature Gran % (Auto) 0.300 Neut % (Auto) 66.5 Lymph % (Auto) 23.0 [place] % (Auto) 9.1 Eos % (Auto) 0.8 Baso % (Auto) 0.3 Absolute Neuts (auto) 5.1 Absolute Lymphs (auto) 1.74 Total Counted Not Reportable Sodium 128 L Potassium 4.0 Chloride 88 L Carbon Dioxide 27.0 Anion Gap 13 BUN 28 H Creatinine 2.23 H Estim Creat Clear Calc 25.52 Est GFR (MDRD) Af Amer 37 L Est GFR (MDRD) Non-Af 30 L BUN/Creatinine Ratio 12.6 Glucose 149 H Calcium 9.0 Total Bilirubin 0.80 AST 33 ALT 25 Alkaline Phosphatase 132 H Total Protein 7.7 Albumin 3.5 Globulin 4.2 Albumin/Globulin Ratio 0.8 L Lipase 114 Assessment/Plan All Active Problems (Last Reviewed 08/30/18 @ 13:48 by Ana Cristina Cobos) Epiploic appendagitis (Acute) Aortocoronary bypass status (Resolved) Subdural hematoma (Resolved) The patient is a 78 y/o M w/ PMHx: CAD s/p CABG, HTN, HLD, PAF/Ventricular Arrhythmia, Chronic Systolic CHF/Ischemic Cardiomyopathy s/p AICD, Diabetes mellitus type II, XOCHITL who presents to the [facility] ED on 09/22/18 with history of nausea, emesis, inability to tolerate oral intake in addition to intermittent abdominal diffuse cramping x 24 hours, noted to be episode in nature, pain 10/10 severe when present. (1) Acute Abdominal Pain, Nausea, Emesis secondary to epiploic appendagitis: ED included T 96.7, heart rate 84, BP 141/86, respiratory rate 18, 99% on room air, CBC with WBC 7.6, hemoglobin 12.6, platelets 180 without shift, CMP with sodium 128, chloride 88, BUN/creatinine 28/2.23, glucose 149, lipase 114, CT abdomen pelvis with no acute appendicitis over diverticulitis, 1 cm left lower quadrant epiploic appendagitis, mild fecal stasis, small benign looking adrenal densities. Will admit to MS, maintain on IVFs, allow clears and ADAT to ADA if improving, nausea and pain regimen PRN. (2) Hyponatremia, Suspected Hypovolemic, Acute on Chronic: Suspect acute on chronic given recent GI losses. Admission Na 128, baseline 130-135, gently hydrate given CHF history, temporarily hold nephrotoxic regimen, repeat BMP in AM. (3) History of SDH: Prior history of fall with intracranial hemorrhage 06/2017 with keppra seizure prophylaxis. (4) CAD: s/p CABG x 3 2001 [facility], SVG to the LAD; SVG to the PDA; radial artery to OM. Maintain on home regimen asa, plavix, statin, BB, imdur. (5) Hypertension: Maintain on home regimen coreg, imdur, holding metalozone temporarily, PRN hydralazine. (6) Hypothyroidism: Maintain on home synthroid regimen. (7) PAF/Ventricular Tachycardia/Arrhythmia: Maintain on home regimen BB, mexiletine, dofetilide. (8) Chronic Systolic CHF, Ischemic Cardiomyopathy: s/p AICD. Maintain on home regimen coreg, statin, ranexa, not on ACEI/ARB secondary to renal disease, noted spironolactone allergy, holding meolazone and bumex temporarily as noted. 01/18/18 MAGDALENA w/ severely dilated LV, EF 30%, moderate severe segmental systolic dysfunction, transmitral diastolic flow velocities suggestive of moderate stage II diastolic dysfunction. (9) CKD stage IV: Admission BUN/Cr 28/2.23, baseline Cr 1.7-2, near baseline but has steadily been increasing, gently hydrating as noted, repeat BMP in AM. (10) GERD: PPI. (11) Diabetes mellitus type II: Hold oral regimen, clears and ADAT to ADA diet, ISS, accu checks. (12) XOCHITL: CPAP qHS if tolerated recommended. (13) AOCD: Admission Hgb 12.6, baseline 12, stable, repeat CBC in AM. (13) DVT Prophylaxis: SCDs, heparin. Code Visit OBSV E&M: 67647 Initial observation care L3
--- NOTE | 2018-09-22 06:06 | HP.PCM_ITS ---
Problem List (1) Epiploic appendagitis Status: Acute (2) CKD (chronic kidney disease) stage 4, GFR 15-29 ml/min Status: Chronic (3) HLD (hyperlipidemia) Status: Chronic Qualifiers: Hyperlipidemia type: unspecified Qualified Code(s): E78.5 - Hyperlipidemia, unspecified (4) Non-ST elevation (NSTEMI) myocardial infarction Status: Chronic (5) CAD (coronary artery disease) Status: Chronic Qualifiers: Coronary Disease-Associated Artery/Lesion type: bypass graft Samish vs. transplanted heart: hopi heart Associated angina: angina presence unspecified Qualified Code(s): I25.810 - Atherosclerosis of coronary artery bypass graft(s) without angina pectoris (6) XOCHITL (obstructive sleep apnea) Status: Chronic (7) Diabetes mellitus type 2, noninsulin dependent Status: Chronic (8) Atherosclerotic heart disease of hopi coronary artery without angina pectoris Status: Chronic Qualifiers: Samish vs. transplanted heart: hopi heart Qualified Code(s): I25.10 - Atherosclerotic heart disease of hopi coronary artery without angina pectoris Comment: CABG 1988; Reoperation CABG x3 SVG to LAD, SVG to Rt PDA, Radial artery to OM-2 10/08/02; VT ablation @[facility] 01/03/[address] [facility] 03/10/2016 (9) Ventricular tachycardia (paroxysmal) Status: Chronic (10) ICD (implantable cardioverter-defibrillator) in place Status: Chronic Comment: Implant 12/10/2001 ICD replacement 06/10/2009, 06/05/2014, (11) Systolic CHF, chronic Status: Chronic (12) Cardiomyopathy, ischemic Status: Chronic (13) Subdural hematoma Status: Resolved (14) Esophageal reflux Status: Chronic Qualifiers: Esophagitis presence: esophagitis presence not specified Qualified Code(s): K21.9 - Gastro-esophageal reflux disease without esophagitis (15) HLD (hyperlipidemia) Status: Chronic Qualifiers: Hyperlipidemia type: unspecified Qualified Code(s): E78.5 - Hyperlipidemia, unspecified (16) HTN (hypertension) Status: Chronic Qualifiers: Hypertension type: essential hypertension Qualified Code(s): I10 - Essential (primary) hypertension (17) Hypothyroidism Status: Chronic Qualifiers: Hypothyroidism type: unspecified Qualified Code(s): E03.9 - Hypothyroidism, unspecified History of Present Illness Date of Admission: 09/22/18 Chief Complaint: Nausea, Emesis, Abdominal Pain The patient is a 78 y/o M w/ PMHx: CAD s/p CABG, HTN, HLD, PAF/Ventricular Arrhythmia, Chronic Systolic CHF/Ischemic Cardiomyopathy s/p AICD, Diabetes mellitus type II, XOCHITL who presents to the [facility] ED on 09/22/18 with history of nausea, emesis, inability to tolerate oral intake in addition to intermittent abdominal diffuse cramping x 24 hours, noted to be episode in nature, pain 10/10 severe when present. Work-up in the ED included T 96.7, heart rate 84, BP 141/86, respiratory rate 18, 99% on room air, CBC with WBC 7.6, hemoglobin 12.6, platelets 180 without shift, CMP with sodium 128, chloride 88, BUN/creatinine 28/2.23, glucose 149, lipase 114, CT abdomen pelvis with no acute appendicitis over diverticulitis, 1 cm left lower quadrant epiploic appendagitis, mild fecal stasis, small benign looking adrenal densities. In the ED patient administered normal saline, Zofran. Past Medical History Past Medical History (Chronic Problems): Chronic Problems (Last Reviewed 08/30/18 @ 13:48 by Ana Cristina Cobos) CKD (chronic kidney disease) stage 4, GFR 15-29 ml/min (Chronic) HLD (hyperlipidemia) (Chronic) Non-ST elevation (NSTEMI) myocardial infarction (Chronic) Angina pectoris (Chronic) CAD (coronary artery disease) (Chronic) Edema (Chronic) Dyspnea (Chronic) Renal disease (Chronic) Fatigue (Chronic) XOCHITL (obstructive sleep apnea) (Chronic) Diabetes mellitus type 2, noninsulin dependent (Chronic) Old myocardial infarction (Chronic) Long-term use of high-risk medication (Chronic) Chronic renal failure (Chronic) Cardiac murmur (Chronic) Hypokalemia (Chronic) Atherosclerotic heart disease of hopi coronary artery without angina pectoris (Chronic) CABG 1988; Reoperation CABG x3 SVG to LAD, SVG to Rt PDA, Radial artery to OM-2 10/08/02; VT ablation @[facility] 01/03/[address] [facility] 03/10/2016 Ventricular tachycardia (paroxysmal) (Chronic) ICD (implantable cardioverter-defibrillator) in place (Chronic ~11/2001) Implant 12/10/2001 ICD replacement 06/10/2009, 06/05/2014, Systolic CHF, chronic (Chronic) Cardiomyopathy, ischemic (Chronic) CKD (chronic kidney disease), stage II (Chronic) Type II diabetes mellitus, uncontrolled (Chronic) Esophageal reflux (Chronic) HLD (hyperlipidemia) (Chronic) HTN (hypertension) (Chronic) Hypothyroidism (Chronic) Sleep apnea (Chronic) Medical History: Medical History (Last Reviewed 08/30/18 @ 13:48 by Ana Cristina Cobos) HLD (hyperlipidemia) (Chronic) E78.5 Non-ST elevation (NSTEMI) myocardial infarction (Chronic) I21.4 Angina pectoris (Chronic) I20.9 CAD (coronary artery disease) (Chronic) I25.10 Edema (Chronic) R60.9 Dyspnea (Chronic) R06.00 Renal disease (Chronic) N28.9 Fatigue (Chronic) R53.83 XOCHITL (obstructive sleep apnea) (Chronic) G47.33 Diabetes mellitus type 2, noninsulin dependent (Chronic) E11.9 Old myocardial infarction (Chronic) I25.2 Long-term use of high-risk medication (Chronic) Z79.899 Chronic renal failure (Chronic) N18.9 Cardiac murmur (Chronic) R01.1 Hypokalemia (Chronic) E87.6 Atherosclerotic heart disease of hopi coronary artery without angina pectoris (Chronic) I25.10 CABG 1988; Reoperation CABG x3 SVG to LAD, SVG to Rt PDA, Radial artery to OM-2 10/08/02; VT ablation @[facility] 01/03/[address] [facility] 03/10/2016 Ventricular tachycardia (paroxysmal) (Chronic) I47.2 ICD (implantable cardioverter-defibrillator) in place (Chronic) Onset Date: ~11/2001 Z95.810 Implant 12/10/2001 ICD replacement 06/10/2009, 06/05/2014, Systolic CHF, chronic (Chronic) I50.22 Cardiomyopathy, ischemic (Chronic) I25.5 Subdural hematoma (Resolved) I62.00 CAD (coronary artery disease) (Inactive) I25.10 CHF (congestive heart failure) (Inactive) I50.9 Visual hallucination (Inactive) R44.1 Allergies amiodarone Allergy (Verified 09/22/18 04:37) Other meperidine [From Demerol] Allergy (Verified 09/22/18 04:37) Low blood pressure spironolactone Allergy (Verified 09/22/18 04:37) Nausea simvastatin Adverse Reaction (Mild, Verified 09/22/18 04:37) Myalgias Home Medications: Ambulatory Orders Medication Instructions Recorded Nitroglycerin [Nitrostat] 0.4 mg SUBLINGUAL Q5M PRN 06/02/14 Ranolazine [Ranexa] 1,000 mg PO BID 06/02/14 Atorvastatin Calcium [Lipitor] 10 mg PO DAILY 08/20/14 Dofetilide 250 mcg PO BID 03/14/17 aspirin 81 mg tablet,delayed 81 mg PO DAILY 11/12/17 release bumetanide 1 mg tablet 1 mg PO BID 11/12/17 levothyroxine 100 mcg tablet 100 mcg PO DAILY tab 11/12/17 carvedilol 12.5 mg tablet 18.75 mg PO BID tab 11/14/17 clopidogrel 75 mg tablet 75 mg PO DAILY 11/14/17 Sitagliptin Phosphate [Januvia] 50 mg PO DAILY 01/18/18 lactobacillus combination no.8 3 3,000 mmu cells PO QDAY 02/22/18 billion cell capsule clonazepam 1 mg tablet 1 mg PO BID PRN 08/30/18 isosorbide mononitrate ER 30 mg 30 mg PO DAILY 08/30/18 tablet,extended release 24 hr levetiracetam 1,000 mg tablet 500 mg PO BID tab 08/30/18 metolazone 2.5 mg tablet 2.5 mg PO .COMPLEX tab 08/30/18 mexiletine 150 mg capsule 150 mg PO TID cap 08/30/18 potassium chloride ER 20 mEq 20 meq PO .3xweek tab 08/30/18 tablet,extended release(part/cryst) ropinirole 1 mg tablet 2 mg PO .COMPLEX tab 08/30/18 Surgical History: Surgical History (Last Reviewed 08/30/18 @ 13:48 by Ana Cristina Cobos) Aortocoronary bypass status (Resolved) Z95.1 CABG 1988; Reoperation CABG x3 SVG to LAD, SVG to Rt PDA, Radial artery to OM-2 10/08/02; VT ablation @[facility] 01/03/17 H/O prior ablation treatment Onset Date: ~01/03/17 Z98.890 VT Ablation @ [facility] History of craniotomy Onset Date: ~06/2017 Z98.890 History of herniorrhaphy Z98.890, Z87.19 History of hip replacement Z96.649 RT History of knee surgery Z98.890 Rt S/P CABG (coronary artery bypass graft) (Inactive) Z95.1 Surgical History: cholecystectomy, coronary bypass surgery, - - ICD placement, CABG x 3, Cholecystectomy, RTHR, RTKR, Cardiac ablation, Craniotomy s/p SDH w/ fall. Psychiatric History: Anxiety, Depression Lives: Spouse/ Significant Other Smoking Status: Former smoker - Quit 1963. Tobacco Use: Non-smoker Alcohol: Rare Drugs: None - *Family History Paternal Family History: Family History (Last Reviewed 08/30/18 @ 13:48 by Ana Cristina Cobos) Father CAD (coronary artery disease) Hypertension Myocardial infarction CHF (congestive heart failure) Mother CAD (coronary artery disease) Myocardial infarction Hypothyroid High cholesterol History Items: Diabetes, Heart Disease, Hypertension Maternal Family History: Family History (Last Reviewed 08/30/18 @ 13:48 by Ana Cristina Cobos) Father CAD (coronary artery disease) Hypertension Myocardial infarction CHF (congestive heart failure) Mother CAD (coronary artery disease) Myocardial infarction Hypothyroid High cholesterol History Items: High Cholesterol, Heart Disease, Hypertension Review of Systems Constitutional: Reports: Anorexia, Malaise, Weakness, Fatigue. Denies: Chills, Fever, Weight Change HEENT: Denies: Head Aches, Sinus Congestion, Sinus Drainage Cardiovascular: Denies: Chest Pain, Palpitations Respiratory: Denies: Cough, Shortness of breath at rest, Sputum production Gastrointestinal: Reports: Abdominal Pain, Nausea, Vomiting Genitourinary: Denies: Dysuria Musculoskeletal: Denies: Joint Pain, Joint Tenderness Skin: Denies: Rash, Wounds Neurological: Denies: Numbness, Tingling, Focal weakness Psychiatric: Reports: Anxiety, Depression. Denies: Homicidal Ideations, Suicidal Ideations Hematologic/ Lymphatic: Reports: Anemia, Easy Bruising, Easy Bleeding VTE Information - Inpt Only VTE Present on Admission: No VTE Mechan Device Prophylaxis: SCD's VTE Pharm Prophylaxis ordered?: Yes Patient Problems: Active and Suspected Problems (Last Reviewed 08/30/18 @ 13:48 by Ana Cristina Cobos) Epiploic appendagitis (Acute) Subjective: Physical Examination: General: awake, alert, oriented x 3 and cooperative, seated upright in the ED bed in no apparent distress, notes stomach pain currently subsided. Skin: normal color, turgor, no icterus, cyanosis. HEENT: AT/NC, EOMI, PERRLA, moderately dry MM, no carotid bruits or JVD noted. Lungs: CTA bilaterally, moderate effort, mild decrease BL bases, no rales, ronchi or wheezing. Heart: Regular rate and rhythm (paced); no gallop, rub audible. Abdomen: soft, NTTP, ND, moderately hyperactive BS, no HSM. Extremities: no cyanosis, clubbing, or edema. Neurological: patient awake, alert, oriented x 3; cognitive function intact; pupils equally reactive to light and accomodation; cranial nerves II-XII grossly normal, moving all 4 extremities, no focal deficits, strength severely globally decreased. Psychiatric: affect appears fatigued, flat, no acute evidence of depressive or anxiety feelings. - Physical Exam Vital Signs Temp Pulse Resp BP Pulse Ox 96.7 F L 84 18 141/86 H 99 09/22/18 04:35 09/22/18 04:35 09/22/18 04:35 09/22/18 04:35 09/22/18 04:35 Weight: 185 lb 10.067 oz Body Mass Index (BMI) 29.0 Finger Stick Blood Glucose 249 Laboratory Tests Past 24 Hrs 09/22/18 09/22/18 04:40 04:40 WBC 7.6 RBC 3.72 L Hgb 12.6 L Hct 35.8 L MCV 96.2 H MCH 33.9 H MCHC 35.2 RDW 13.2 RDW Differential 44.0 H Plt Count 180 MPV 9.8 Immature Gran % (Auto) 0.300 Neut % (Auto) 66.5 Lymph % (Auto) 23.0 Frio % (Auto) 9.1 Eos % (Auto) 0.8 Baso % (Auto) 0.3 Absolute Neuts (auto) 5.1 Absolute Lymphs (auto) 1.74 Total Counted Not Reportable Sodium 128 L Potassium 4.0 Chloride 88 L Carbon Dioxide 27.0 Anion Gap 13 BUN 28 H Creatinine 2.23 H Estim Creat Clear Calc 25.52 Est GFR (MDRD) Af Amer 37 L Est GFR (MDRD) Non-Af 30 L BUN/Creatinine Ratio 12.6 Glucose 149 H Calcium 9.0 Total Bilirubin 0.80 AST 33 ALT 25 Alkaline Phosphatase 132 H Total Protein 7.7 Albumin 3.5 Globulin 4.2 Albumin/Globulin Ratio 0.8 L Lipase 114 Assessment/Plan All Active Problems (Last Reviewed 08/30/18 @ 13:48 by Ana Cristina Cobos) Epiploic appendagitis (Acute) Aortocoronary bypass status (Resolved) Subdural hematoma (Resolved) The patient is a 78 y/o M w/ PMHx: CAD s/p CABG, HTN, HLD, PAF/Ventricular Arrhythmia, Chronic Systolic CHF/Ischemic Cardiomyopathy s/p AICD, Diabetes mellitus type II, XOCHITL who presents to the [facility] ED on 09/22/18 with history of nausea, emesis, inability to tolerate oral intake in addition to intermittent abdominal diffuse cramping x 24 hours, noted to be episode in nature, pain 10/10 severe when present. (1) Acute Abdominal Pain, Nausea, Emesis secondary to epiploic appendagitis: ED included T 96.7, heart rate 84, BP 141/86, respiratory rate 18, 99% on room air, CBC with WBC 7.6, hemoglobin 12.6, platelets 180 without shift, CMP with sodium 128, chloride 88, BUN/creatinine 28/2.23, glucose 149, lipase 114, CT abdomen pelvis with no acute appendicitis over diverticulitis, 1 cm left lower quadrant epiploic appendagitis, mild fecal stasis, small benign looking adrenal densities. Will admit to MS, maintain on IVFs, allow clears and ADAT to ADA if improving, nausea and pain regimen PRN. (2) Hyponatremia, Suspected Hypovolemic, Acute on Chronic: Suspect acute on chronic given recent GI losses. Admission Na 128, baseline 130-135, gently hydrate given CHF history, temporarily hold nephrotoxic regimen, repeat BMP in AM. (3) History of SDH: Prior history of fall with intracranial hemorrhage 06/2017 with keppra seizure prophylaxis. (4) CAD: s/p CABG x 3 2001 [facility], SVG to the LAD; SVG to the PDA; radial artery to OM. Maintain on home regimen asa, plavix, statin, BB, imdur. (5) Hypertension: Maintain on home regimen coreg, imdur, holding metalozone temporarily, PRN hydralazine. (6) Hypothyroidism: Maintain on home synthroid regimen. (7) PAF/Ventricular Tachycardia/Arrhythmia: Maintain on home regimen BB, mexiletine, dofetilide. (8) Chronic Systolic CHF, Ischemic Cardiomyopathy: s/p AICD. Maintain on home regimen coreg, statin, ranexa, not on ACEI/ARB secondary to renal disease, noted spironolactone allergy, holding meolazone and bumex temporarily as noted. 01/18/18 MAG[place] w/ severely dilated LV, EF 30%, moderate severe segmental systolic dysfunction, transmitral diastolic flow velocities suggestive of moderate stage II diastolic dysfunction. (9) CKD stage IV: Admission BUN/Cr 28/2.23, baseline Cr 1.7-2, near baseline but has steadily been increasing, gently hydrating as noted, repeat BMP in AM. (10) GERD: PPI. (11) Diabetes mellitus type II: Hold oral regimen, clears and ADAT to ADA diet, ISS, accu checks. (12) XOCHITL: CPAP qHS if tolerated recommended. (13) AOCD: Admission Hgb 12.6, baseline 12, stable, repeat CBC in AM. (13) DVT Prophylaxis: SCDs, heparin. Code Visit OBSV E&M: 64951 Initial observation care L3
--- NOTE | 2018-09-22 06:19 | ED.VISSUMM ---
- ER Visit Summary Date of Service: 09/22/18 Chief Complaint: Abdominal pain nausea and vomiting. History of Present Illness: The patient is a 78 M who presents with abdominal pain nausea and vomiting. He initially developed abdominal pain about 12 hours ago. He states it was severe in all across the upper abdomen. He is unable to describe the character of the pain. Currently however his pain is resolved and he is pain-free. He also had nausea and vomiting last night. Had about 8 episodes. His last episode was about 8:30 PM last night. His last bowel movement was 1-1/2 days ago but he continues to have flatus. This morning he was more weak than usual and he was really unable on his own so EMS was called. No fevers. No chest pain or shortness of breath. Physical Examination: Afebrile vitals are unremarkable Moist mucous membranes Heart regular rate and rhythm Lungs are clear Abdomen soft nontender nondistended Alert Test Results: EKG shows an AV paced rhythm at 60. Labs notable for hemoglobin 12.6, BUN 28, creatinine 2.23. Hepatic function unremarkable and lipase normal. CT of the abdomen and pelvis shows epiploic appendagitis. Emergency Department Course and Treatment: Patient was pain-free at the time of my evaluation. Labs are consistent with a component of dehydration. He was treated here with IV fluids and Zofran. Given comorbidities and dehydration patient was discussed with hospitalist and admitted for observation and symptomatic control. Treatment Plan: [] Disposition: Admit Impression: Epiploic appendagitis This note was generated with Kamel[employer] dictation software. It may contain incorrect words, spelling, and punctuation that were not noted in review of the chart prior to signing ED Disposition - Plan for ED Patient: Chief Complaint: Nausea/Vomiting Referrals: Anabella Lomax MD [Primary Care Provider] -
--- NOTE | 2018-09-22 06:36 | NURSING ---
MED SURG N/V/ABD PAIN WHITE
[2018-09-22] MEDS: 0.9% Normal Saline 1,000 ML 100 ML IV ×2 (09:06→20:32)
[2018-09-22 09:16] LABS: Bedside Glucose 131 mg/dL (70-110)
--- NOTE | 2018-09-22 10:51 | PCM.PROGNOTE ---
Patient Problems: Active and Suspected Problems (Last Reviewed 08/30/18 @ 13:48 by Ana Cristina Cobos) Epiploic appendagitis (Acute) Subjective: The patient is a 78-year-old male with a past medical history of diabetes mellitus type 2, obstructive sleep apnea, seizure disorder on Keppra, coronary artery disease, hyperlipidemia chronic renal failure stage IV ventricular tachycardia with ICD placement, chronic systolic congestive heart failure secondary to ischemic cardiomyopathy, GERD, hypertension and hypothyroidism who presented to the emergency department at [facility] on 09/22/2018 complaining of nausea/vomiting and inability to keep any oral intake down. He additionally complained of abdominal cramping for the preceding 24 hours. Temp in the ER was 96.7 and vital signs were unremarkable and within normal limits. White blood cell count was 7.6. Sodium was mildly decreased at 128 and the chloride was 88. Creatinine was 2.23 up from 2.[address] scan of the abdomen and pelvis showed the lungs to be clear to auscultation, normal spleen, normal pancreas. There was a 1.8 cm right adrenal nodule and a 2.9 x 1.4 cm density on the left adrenal. Kidneys were unremarkable as was the stomach. There was no bowel distention, acute appendicitis or diverticulitis. There was fecal stasis present. There was a 1.0 cm area of epiploic appendagitis in the left lower quadrant. He was admitted to the hospital for observation due to inability to tolerate any oral intake and IV fluids were ordered. Antiemetics and pain medication was ordered. Afebrile since admission Heart rate and blood pressure are within normal limits and he is 93-99% saturated on room air. He tells me that recently he had multiple teeth extracted from the maxilla and he has not had the same oral intake. He is currently on a soft diet at home but is still having some pain in his mouth. Denies nausea today and has had no emesis. He denies diarrhea and in fact he states that he has been constipated with hard stool. He uses one spoonful of Metamucil daily and occasionally takes MiraLAX. His last bowel movement was a few days ago and it was hard. He denies abdominal pain today. He had a syncopal episode 7-10 days ago and at that time his pacemaker was interrogated and there was no ventricular tachycardia. He has had no significant ventricular ectopy since taking mexiletine and Tikosyn. - Physical Exam General: Alert, Oriented x3, Cooperative, No apparent distress, Well developed, Well nourished HEENT: Atraumatic, PERRLA Oral: Dry Mucosa Neck: Supple, Trachea Midline Lungs: Clear to auscultation, - - Good air exchange throughout Cardiovascular: Regular rate, Regular Rhythm, Normal S1, Normal S2, No murmurs, No rub noted, No Gallop Abdomen: Non Tender, Non-Distended, Hypoactive Bowel Sounds, - - The abdomen is firm to palpation and he does have some tympany. Extremities: No edema Skin: No rashes, No breakdown Neurological: Cranial nerves II-XII grossly intact, Neuro grossly intact Psych/Mental Status: Appropriate Vital Signs Temp Pulse Resp BP Pulse Ox 98.3 F 62 18 117/62 97 09/22/18 08:09 09/22/18 08:09 09/22/18 08:09 09/22/18 08:09 09/22/18 08:09 Oxygen Delivery Method Room Air Weight: 185 lb 10.067 oz Body Mass Index (BMI) 29.0 Finger Stick Blood Glucose 249 Laboratory Tests Past 24 Hrs 09/22/18 09/22/18 09/22/18 04:40 04:40 04:40 WBC 7.6 RBC 3.72 L Hgb 12.6 L Hct 35.8 L MCV 96.2 H MCH 33.9 H MCHC 35.2 RDW 13.2 RDW Differential 44.0 H Plt Count 180 MPV 9.8 Immature Gran % (Auto) 0.300 Neut % (Auto) 66.5 Lymph % (Auto) 23.0 [place] % (Auto) 9.1 Eos % (Auto) 0.8 Baso % (Auto) 0.3 Absolute Neuts (auto) 5.1 Absolute Lymphs (auto) 1.74 Total Counted Not Reportable Sodium 128 L Potassium 4.0 Chloride 88 L Carbon Dioxide 27.0 Anion Gap 13 BUN 28 H Creatinine 2.23 H Estim Creat Clear Calc 25.52 Est GFR (MDRD) Af Amer 37 L Est GFR (MDRD) Non-Af 30 L BUN/Creatinine Ratio 12.6 Glucose 149 H Calcium 9.0 Magnesium 2.0 Total Bilirubin 0.80 AST 33 ALT 25 Alkaline Phosphatase 132 H Total Protein 7.7 Albumin 3.5 Globulin 4.2 Albumin/Globulin Ratio 0.8 L Lipase 114 POC Glucose 09/22/18 09:01 POC Glucose 131 H Medical Necessity - Tobacco Use Smoking Status: Former smoker Tobacco Use: Non-smoker Assessment/Plan All Active Problems (Last Reviewed 08/30/18 @ 13:48 by Ana Cristina Cobos) Epiploic appendagitis (Acute) Aortocoronary bypass status (Resolved) Subdural hematoma (Resolved) Impressions 1. N/V/abdominal pain - resolved. I suspect this may be related to constipation/fecal stasis due to decreased oral intake since he had his teeth extracted and his mouth has been sore 2. constipation 3. hx of VT - has a pacemaker/AICD and is currently taking mexiletine and Tikosyn with good results 4. CAD 5. XOCHITL 6. History of subdural hematoma with seizures-on Keppra, recent Keppra level within normal limits 7. GERD 8. Diabetes mellitus type 2 9. Epiploic appendagitis - found on the CT scan - no abdominal pain now and the N/V have quickly resolved.......I think this is an incidental finding rather than the etiology of the abdominal pain 10. Hyponatremia 11. Stage IV chronic renal failure Miralax daily ADAT MOM 45 cc now DC normal saline after 2 L have infused Recheck lab in the a.m. Continue to hold metolazone today Discussed with Dr. Lomax on the phone who updated me on his recent history and I do appreciate her input.
[2018-09-22 11:10] LABS: Bedside Glucose 207 mg/dL (70-110)
[2018-09-22] MEDS: Carvedilol 12.5 MG Tablet 18.75 MG PO ×2 (11:26→22:59)
[2018-09-22] MEDS: Aspirin E.C. 81 MG Tablet PO (11:26)
[2018-09-22] MEDS: Ranolazine 500 MG Tablet 1000 MG PO ×2 (11:27→22:58)
[2018-09-22] MEDS: Clopidogrel Bisulfate 75 MG Tablet PO (11:27)
[2018-09-22] MEDS: levETIRAcetam 500 MG Tablet PO ×2 (11:27→22:59)
[2018-09-22] MEDS: Isosorbide Mononitrate 30 MG Tablet PO (11:27)
[2018-09-22] MEDS: Dofetilide 250 MCG Capsule PO ×2 (11:28→22:57)
[2018-09-22] MEDS: Heparin Injection (Vial) 5,000 UNIT/ML VIAL 5000 UNIT SC (11:28)
[2018-09-22] MEDS: Insulin Lispro 100 UNIT/ML INSULN.PEN SC ×3 (12:13→20:27)
[2018-09-22] MEDS: Magnesium Hydroxide 30 ML UDC 45 ML PO (13:41)
[2018-09-22] MEDS: Polyethylene Glycol 3350 17 GM PACKET PO (13:41)
[2018-09-22] MEDS: Mexiletine 150 MG Capsule PO ×2 (13:45→22:59)
[2018-09-22 17:35] LABS: Bedside Glucose 199 mg/dL (70-110)
[2018-09-22] MEDS: Pramipexole Di-HCl 1 MG Tablet PO ×2 (20:26→23:00)
[2018-09-22] MEDS: Magnesium Hydroxide 30 ML UDC PO (20:36)
[2018-09-22 20:45] LABS: Bedside Glucose 231 mg/dL (70-110)
[2018-09-22] MEDS: Menthol/Lanolin/Calamine/Znox 113 GM Tube 1 APPLIC TOPICAL (22:55)
[2018-09-22] MEDS: Atorvastatin Calcium 10 MG Tablet PO (22:59)
[2018-09-23] VITALS (11 sets, daily range): BP systolic 102–133; BP diastolic 65–77; PULSE 60–66; RESP 14–20; TEMP 36.3–36.6; O2SAT 94–100
[2018-09-23] MEDS: Mexiletine 150 MG Capsule PO ×2 (06:48→14:17)
[2018-09-23] MEDS: Levothyroxine 100 MCG Tablet PO (06:48)
[2018-09-23 06:49] LABS: Anion Gap 9 (5-15); BUN 25 mg/dL (7-18); BUN/Creat Ratio 13.8 RATIO (10-20); Calcium,Total 8.1 mg/dL (8.5-10.1); Chloride 94 mmol/L (98-107); Creatinine, Serum 1.81 mg/dL (0.70-1.30); EST Glomerular Filtration Rate 39 mL/min (>60); Est Glom Filt Rate - Afr Amer 47 mL/min (>60); Estimated Creatinine Clearance 31.45 ml/min; Glucose 174 mg/dL (74-106); Potassium 4.2 mmol/L (3.5-5.1); Sodium Level 128 mmol/L (136-145)
[2018-09-23] MEDS: Insulin Lispro 100 UNIT/ML INSULN.PEN SC ×4 (06:55→23:42)
[2018-09-23 06:57] LABS: Absolute Lymphocyte Count 1.23 X10^3/ul (0.83-4.51); Basophil# 0.01 X10^3/uL; Basophil% 0.1 % (0-1); Eosinophil# 0.04 X10^3/uL; Eosinophils% 0.4 % (0-5); Hemoglobin 11.6 g/dl (13.0-16.5); Lymphocyte # 1.23 X10^3/ul (4.0); Lymphocyte % 12.3 % (19-41); Mean Corp Hgb Conc 34.1 g/gl (32-36); Mean Corpuscular Volume 96.6 fL (80-94); Monocyte# 0.74 X10^3/uL; Monocyte% 7.4 % (0-10); Neutrophil # 7.98 X10^3/uL (2.7-7.7); Neutrophil % 79.5 % (47-70); Platelet Count 149 K/mm3 (150-450); RBC Distribution Width CV 13.9 % (11.6-14.6); RBC Distribution Width SD 48.9 fl (35.1-43.9); Red Blood Count 3.52 M/mm3 (4.6-6.2)
[2018-09-23 07:00] LABS: POSITIVE COUNT NO; POSITIVE DIFFERENTIAL NO; POSITIVE MORPHOLOGY NO
[2018-09-23 07:01] LABS: Bedside Glucose 170 mg/dL (70-110)
[2018-09-23] MEDS: Menthol/Lanolin/Calamine/Znox 113 GM Tube 1 APPLIC TOPICAL ×2 (10:57→14:17)
[2018-09-23] MEDS: Ranolazine 500 MG Tablet 1000 MG PO (10:57)
[2018-09-23] MEDS: Aspirin E.C. 81 MG Tablet PO (10:57)
[2018-09-23] MEDS: Dofetilide 250 MCG Capsule PO (10:58)
[2018-09-23] MEDS: levETIRAcetam 500 MG Tablet PO (10:58)
[2018-09-23] MEDS: Clopidogrel Bisulfate 75 MG Tablet PO (10:58)
[2018-09-23] MEDS: Carvedilol 12.5 MG Tablet 18.75 MG PO (10:58)
[2018-09-23] MEDS: Isosorbide Mononitrate 30 MG Tablet PO (10:59)
[2018-09-23] MEDS: Polyethylene Glycol 3350 17 GM PACKET PO (10:59)
[2018-09-23] MEDS: Heparin Injection (Vial) 5,000 UNIT/ML VIAL 5000 UNIT SC ×2 (10:59→23:38)
[2018-09-23 12:40] LABS: Bedside Glucose 178 mg/dL (70-110)
--- NOTE | 2018-09-23 15:13 | CHAPLAIN ---
Type of Pastoral Visit _x__ Initial Visit ___ Follow-up Visit ___ On-call Visit ___ General Patient Visit ___ Spiritual Assessment ___ Family Conference ___ Bereavement ___ Rapid Response ___ Code Blue ___ Other (describe below) Pastoral Care Referral From _x__ Patient _x__ Family ___ Nurse ___ Physician ___ International Account Executive ___ [place] [place] Sewer ___ Other (describe below) Sacrament/Intervention _x__ Active listening ___ Anointing ___ Yarsanism ___ Bereavement ___ Communion _x__ Evelyne exploration ___ _x__ Life review _x__ Prayer ___ Reconciliation ___ Sacrament of Sick _x__ Supportive presence ___ Wedding ___ Other (describe below) Pastoral Comments main concern presented is of answers and reasons for illness and then what to do about it; spouse mentions this and admits to some anxiety in front of patient and then again later in the hallway; pt and spouse both express desire for spiritual support; both express deep evelyne and hope in [place]; pt is of the [employer] evelyne; prayer
--- NOTE | 2018-09-23 15:16 | NURSING ---
This nurse called to room by Juliana ZABALA emergently. Patient is non responsive with Significant other and Juliana MACHINE FORMER at bedside. Patient does not initially respond when this nurse entered room. Juliana and patient's significant other indicate that patient was up to chair and then went suddenly unresponsive. A staff emergency and TEA ROOM MANAGER were called at this time as patient was assessed. He remained unresponsive for a few minutes even to sternal rub. Patient's significant other and Juliana described a jerking motion of the upper extremities. It was also noted at this time that the patient had been incontinent of urine. Additional staff members responded to situation and helped further assess the patient including vital signs, blood sugar, and focussed neurological assessment. See TEA ROOM MANAGER documentation for further elaboration. Dr Don and Dr Wyman also responded as well as Dr Michaud. New orders were provided for ativan, Keppra, and a CT of the head. Patient became more responsive and was able to communicate but was only alert to self. He was able to state month and date but was unable to recite the current year. Patient was transferred back to his bed from the recliner where the incident occurred. Basic hygiene care was provided, new orders initiated, including placing the patient on cardiac monitoring and patient transported to CT scan and will ultimately be transferred to the progressive care unit following CT scan.
--- NOTE | 2018-09-23 15:23 | CT_ITS ---
STUDY: CT BRAIN WITHOUT CONTRAST REASON FOR EXAM: Male, 78 years old. Subdural hematoma. RADIATION DOSAGE (If Supplied By Facility): CTDIvol = ( 60.81 ) mGy, DLP = ( 1089.89 ) mGycm TECHNIQUE: Transaxial CT imaging of the brain was performed without administration of intravenous contrast material. Individualized dose optimization techniques were used for this CT. COMPARISON: None. FINDINGS: Normal soft tissue structures. Surgical changes of left craniotomy. There is mild cerebral atrophy with widening of the extra-axial spaces and ventricular dilatation. There are areas of decreased attenuation within the white matter tracts of the supratentorial brain, consistent with microvascular disease changes. Normal basal ganglia and thalami. Normal brainstem. There is mild cerebellar atrophy. There is no intracranial hemorrhage. There are no findings of an acute ischemic infarction. Normal visualized paranasal sinuses. CT/Brain/Head without Contrast IMPRESSION: Chronic involutional changes of the brain. No definite acute abnormality.. Electronically Signed: Raymond Dawson MD at 16:59 EST , Service support ,
[2018-09-23 15:25] LABS: Bedside Glucose 213 mg/dL (70-110)
--- NOTE | 2018-09-23 15:34 | PCA ---
Patient called out and wanted to get up in chair. Went in and transferred to chair. Got patient to chair and patient was talking. Went to hook patient scds up when patient stopped talking and started to shake. Went out and grabbed help.
[2018-09-23] MEDS: LORazepam 2 MG/ML Syringe 1 MG IV (15:35)
[2018-09-23] MEDS: levETIRAcetam IV 1,000 MG/100 ML BAG 400 MG IV (15:35)
[2018-09-23] MEDS: 0.9% NaCl Peripheral Flush Adult/Peds IV (15:38)
--- NOTE | 2018-09-23 15:52 | PCM.PN.HOSP ---
Patient Problems: Active and Suspected Problems (Last Reviewed 08/30/18 @ 13:48 by Ana Cristina Cobos) Epiploic appendagitis (Acute) Subjective: Patient was seen and examined with by his bedside. He had no complaints and generally felt well. He denied any fever or chills, cough or chest pain, shortness of breath, abdominal pain, diarrhea vomiting. He does complain of constipation which was chronic. His was by his side and mentioned that he had had episodes of hallucinations which he said was usually when he was in the hospital. She had discussed this with his primary care doctor who according to the was not very concerned about it. Shortly after reviewing patient, rapid response was called on account of suspected seizure. Patient had been noted to be unresponsive and subsequently had urinary incontinence with jerking of his upper extremities. His blood sugar was in the 200s and blood pressure was slightly elevated with systolic in the 140s at time of our T. Upon response to the BUREAU DIRECTOR, patient came around and was able to answer questions but said he felt very weak and lethargic. He was noted to have jerking movements of his upper extremities. He was given 1 dose of IV Ativan 1 mg once and given a loading dose of Keppra thousand milligrams. Upon further discussion with his , she said he was on Keppra 500 mg twice daily. He had gotten his dose this morning. However she said his dosage had been reduced over the past few months by his neurologist and he had initially been on the thousand milligram and this was cut down to 750 mg and on thousand 500 mg. She could not give an exact timeline of further duration over which this dosage had been reduced. She said he had been compliant with his medication but she had been concerned because about a week ago, he blacked out in the car and she was worried that he could have had a possible seizure. They therefore had an upcoming appointment with his neurologist but that he was admitted for this current index admission. Patient was transferred to PCU and a stat CT scan of his head without contrast was ordered. Vitals/I&O's: Vital Signs Temp Pulse Resp BP Pulse Ox 97.9 F 60 20 H 102/65 94 09/23/18 14:15 09/23/18 14:15 09/23/18 14:15 09/23/18 14:15 09/23/18 14:15 Oxygen Delivery Method Room Air Weight: 185 lb 10.067 oz Body Mass Index (BMI) 29.0 Finger Stick Blood Glucose 249 Intake and Output for Last 24 Hours 09/21/18 09/22/18 09/23/18 23:59 23:59 23:59 Intake Total 1926 1662 / 1662 Output Total 101 / 101 Balance 1926 1561 / 1561 General: Alert, Confused, Lethargic HEENT: Atraumatic, PERRLA, EOMI, Normocephalic Oral: Moist Mucosa Neck: Supple, No JVD, Negative Carotid Bruits Lungs: Clear to auscultation, Normal air movement, No rhonchi, No wheeze, No rales Cardiovascular: Regular rate, Regular Rhythm, Normal S1, Normal S2, No murmurs Abdomen: Bowel Sounds Present, Soft, Non Tender, Non-Distended, No Hepato-splenomegaly Extremities: No clubbing, No cyanosis, No edema, Capillary Refill Less than 3 Seconds Skin: No rashes, No breakdown Musculoskeletal: No Tenderness to Palpation of Joints or Extremities Lymphatic: No Cervical, Supraclavicular, or Inguinal Adenopathy Neurological: Cranial nerves II-XII grossly intact, - - lethargic; jerky movements of his UEs noted, likely due to seizures. Psych/Mental Status: - - lethargic Microbiology Past 72 Hours 09/22/18 19:10 Stool Stool Occult Blood (DEBORAH) - Final Occult Blood Positive Laboratory Results 09/22/18 17:21: POC Glucose 199 H 09/22/18 20:24: POC Glucose 231 H 09/23/18 06:06: Sodium 128 L, Potassium 4.2, Chloride 94 L, Carbon Dioxide 25.0, Anion Gap 9, BUN 25 H, Creatinine 1.81 H, Estim Creat Clear Calc 31.45, Est GFR (MDRD) Af Amer 47 L, Est GFR (MDRD) Non-Af 39 L, BUN/Creatinine Ratio 13.8, Glucose 174 H, Calcium 8.1 L 09/23/18 06:06: WBC 10.0, RBC 3.52 L, Hgb 11.6 L, Hct 34.0 L, MCV 96.6 H, MCH 33.0 H, MCHC 34.1, RDW 13.9, RDW Differential 48.9 H, Plt Count 149 L, MPV 10.0, Immature Gran % (Auto) 0.300, Neut % (Auto) 79.5 H, Lymph % (Auto) 12.3 L, [place] % (Auto) 7.4, Eos % (Auto) 0.4, Baso % (Auto) 0.1, Absolute Neuts (auto) 8.0 H, Absolute Lymphs (auto) 1.23, Total Counted Not Reportable 09/23/18 06:46: POC Glucose 170 H 09/23/18 12:33: POC Glucose 178 H 09/23/18 15:19: POC Glucose 213 H Diagnostic Data Abdomen/Pelvis CT 09/22/18 04:57 IMPRESSION: No acute appendicitis or diverticulitis.. A 1 cm left lower quadrant epiploic appendagitis. Mild fecal stasis. Small benign looking adrenal densities Electronically Signed: Vernon Coronel MD at 5:51 EST Tel , Service support , Current Medications Acetaminophen (Tylenol) 650 mg PO Q6H PRN PRN PRN Reason: Non-cardiac pain (mod-severe) Hydrocodone Bitart/Acetaminophen ([place] 5mg-325mg) 1 - 2 tablet PO Q6H PRN PRN PRN Reason: Moderate-severe pain Al Hydroxide/Mg Hydroxide (Mylanta Ii) 30 ml PO Q6H PRN PRN PRN Reason: Gastric burning Aspirin (Ecotrin) 81 mg PO DAILY [facility] Last Admin: 09/23/18 10:57 Dose: 81 mg Atorvastatin Calcium (Lipitor) 10 mg PO QHS [facility] Last Admin: 09/22/18 22:59 Dose: 10 mg Calamine/Phenol (Calmoseptine Ointment) 1 applic TOPICAL 4X/DAY [facility]; Protocol Last Admin: 09/23/18 14:17 Dose: 1 applicatio Carvedilol (Coreg) 18.75 mg PO BID [facility] Last Admin: 09/23/18 10:58 Dose: 18.75 mg Clonazepam (Klonopin) 1 mg PO BID PRN PRN Reason: ANXIETY Clopidogrel Bisulfate (Plavix) 75 mg PO DAILY [facility] Last Admin: 09/23/18 10:58 Dose: 75 mg Dofetilide (Tikosyn) 250 mcg PO BID [facility] Last Admin: 09/23/18 10:58 Dose: 250 mcg Heparin Sodium (Porcine) (Heparin Na) 5,000 unit SC Q12 [facility] Last Admin: 09/23/18 10:59 Dose: 5,000 unit Hydralazine HCl (Apresoline Iv) 10 mg IV Q4H PRN PRN PRN Reason: SBP > 160 Insulin Human Lispro (Humalog Kwikpen (Bkc)) 0 unit SC ACHS [facility]; Protocol Last Admin: 09/23/18 12:34 Dose: 1 units Isosorbide Mononitrate (Imdur) 30 mg PO DAILY [facility] Last Admin: 09/23/18 10:59 Dose: 30 mg Levetiracetam (Keppra Tablet) 500 mg PO BID [facility] Last Admin: 09/23/18 10:58 Dose: 500 mg Levothyroxine Sodium (Synthroid) 100 mcg PO DAILY@0600 [facility] Last Admin: 09/23/18 06:48 Dose: 100 mcg Magnesium Hydroxide (Milk Of Magnesia) 30 ml PO DAILY PRN PRN PRN Reason: Constipation Last Admin: 09/22/18 20:36 Dose: 30 ml Mexiletine HCl (Mexitil) 150 mg PO TID [facility] Last Admin: 09/23/18 14:17 Dose: 150 mg Morphine Sulfate () 1 - 2 mg IV Q4H PRN PRN PRN Reason: PAIN Nitroglycerin (Nitrostat) 0.4 mg SUBLINGUAL Q5M PRN PRN Reason: Chest Pain Ondansetron HCl (Zofran) 4 mg IV Q8H PRN PRN PRN Reason: NAUSEA/VOMITING Polyethylene Glycol (Miralax) 17 gm PO DAILY [facility] Last Admin: 09/23/18 10:59 Dose: 17 gm Pramipexole Dihydrochloride (Mirapex) 1 mg PO 2000,2300 [facility] Last Admin: 09/22/18 23:00 Dose: 1 mg Promethazine HCl (Phenergan) 12.5 mg IV Q6H PRN PRN PRN Reason: NAUSEA/VOMITING Ranolazine (Ranexa) 1,000 mg PO BID [facility] Last Admin: 09/23/18 10:57 Dose: 1,000 mg Sodium Chloride () 5 - 30 ml IV UD PRN PRN Reason: SALINE FLUSH Last Admin: 09/23/18 15:38 Dose: 10 ml Medical Necessity - Tobacco Use Smoking Status: Former smoker Tobacco Use: Non-smoker Assessment/Plan All Active Problems (Last Reviewed 08/30/18 @ 13:48 by Ana Cristina Cobos) Epiploic appendagitis (Acute) Aortocoronary bypass status (Resolved) Subdural hematoma (Resolved) 1. Breakthrough seizure in a patient with known seizure disorder had a probable seizure this afternoon, which resulted in rapid response being called. Had associated urinary incontinence, and had post ictal lethargy received dose of Keppra 500mg PO this morning given one dose of IV ativan 1mg once, and IV Keppra loading dose of 1000mg says his dose of keppra has been gradually tapered recently, and he is now on keppra 500mg bid Suspect that he may have had a seizure recently as he blacked out. stat CT head without contrast; urgent neurology consult transfer to PCU for closer monitoring keep NPO for now keppra level ordered on 09.17.18 is pending seizure precautions 2. nausea, vomiting and abdominal pain likely due to constipation resolved. 3. Hyponatremia: Na is 128. Has chronic hyhponatremia, with baseline in 130s. Will hydrate with IVF and monitor 4. History of subdural hematoma: On Keppra. Is under 1. 5. CKD stage IV, stable. Creatinine is 1.8. Will monitor. 6. History of ventricular tachycardia status post pacemaker and ICD. On mexiletine and Tikosyn. 7. GERD: stable 8. CAD: stable. on statin, plavix and carvedilol as well as ranexa DVT prophylaxis; SCDs Code Visit Inpatient E&M: 43476 [facility] Hosp L[facility]
--- NOTE | 2018-09-23 16:04 | PN_ITS ---
Patient Problems: Active and Suspected Problems (Last Reviewed 08/30/18 @ 13:48 by Ana Cristina Cobos) Epiploic appendagitis (Acute) Subjective: Patient was seen and examined with by his bedside. He had no complaints and generally felt well. He denied any fever or chills, cough or chest pain, shortness of breath, abdominal pain, diarrhea vomiting. He does complain of constipation which was chronic. His was by his side and mentioned that he had had episodes of hallucinations which he said was usually when he was in the hospital. She had discussed this with his primary care doctor who according to the was not very concerned about it. Shortly after reviewing patient, rapid response was called on account of s uspected seizure. Patient had been noted to be unresponsive and subsequently had urinary incontinence with jerking of his upper extremities. His blood sugar was in the 200s and blood pressure was slightly elevated with systolic in the 140s at time of our T. Upon response to the WINDER CONTORT OPERATOR, patient came around and was able to answer questions but said he felt very weak and lethargic. He was noted to have jerking movements of his upper extremities. He was given 1 dose of IV Ativan 1 mg once and given a loading dose of Keppra thousand milligrams. Upon further discussion with his , she said he was on Keppra 500 mg twice daily. He had gotten his dose this morning. However she said his dosage had been reduced over the past few months by his neurologist and he had initially been on the thousand milligram and this was cut down to 750 mg and on thousand 500 mg. She could not give an exact timeline of further duration over which this dosage had been reduced. She said he had been compliant with his medication but she had been concerned because about a week ago, he blacked out in the car and she was worried that he could have had a possible seizure. They therefore had an upcoming appointment with his neurologist but that he was admitted for this current index admission. Patient was transferred to PCU and a stat CT scan of his head without contrast was ordered. Vitals/I&O's: Vital Signs Temp Pulse Resp BP Pulse Ox 97.9 F 60 20 H 102/65 94 09/23/18 14:15 09/23/18 14:15 09/23/18 14:15 09/23/18 14:15 09/23/18 14:15 Oxygen Delivery Method Room Air Weight: 185 lb 10.067 oz Body Mass Index (BMI) 29.0 Finger Stick Blood Glucose 249 Intake and Output for Last 24 Hours 09/21/18 09/22/18 09/23/18 23:59 23:59 23:59 Intake Total 1926 1662 / 1662 Output Total 101 / 101 Balance 1926 1561 / 1561 General: Alert, Confused, Lethargic HEENT: Atraumatic, PERRLA, EOMI, Normocephalic Oral: Moist Mucosa Neck: Supple, No JVD, Negative Carotid Bruits Lungs: Clear to auscultation, Normal air movement, No rhonchi, No wheeze, No rales Cardiovascular: Regular rate, Regular Rhythm, Normal S1, Normal S2, No murmurs Abdomen: Bowel Sounds Present, Soft, Non Tender, Non-Distended, No Hepato- splenomegaly Extremities: No clubbing, No cyanosis, No edema, Capillary Refill Less than 3 Seconds Skin: No rashes, No breakdown Musculoskeletal: No Tenderness to Palpation of Joints or Extremities Lymphatic: No Cervical, Supraclavicular, or Inguinal Adenopathy Neurological: Cranial nerves II-XII grossly intact, - - lethargic; jerky movements of his UEs noted, likely due to seizures. Psych/Mental Status: - - lethargic Microbiology Past 72 Hours 09/22/18 19:10 Stool Stool Occult Blood (DEBORAH) - Final Occult Blood Positive Laboratory Results 09/22/18 17:21: POC Glucose 199 H 09/22/18 20:24: POC Glucose 231 H 09/23/18 06:06: Sodium 128 L, Potassium 4.2, Chloride 94 L, Carbon Dioxide 25.0, Anion Gap 9, BUN 25 H, Creatinine 1.81 H, Estim Creat Clear Calc 31.45, Est GFR (MDRD) Af Amer 47 L, Est GFR (MDRD) Non-Af 39 L, BUN/Creatinine Ratio 13.8, Glucose 174 H, Calcium 8.1 L 09/23/18 06:06: WBC 10.0, RBC 3.52 L, Hgb 11.6 L, Hct 34.0 L, MCV 96.6 H, MCH 33.0 H, MCHC 34.1, RDW 13.9, RDW Differential 48.9 H, Plt Count 149 L, MPV 10.0, Immature Gran % (Auto) 0.300, Neut % (Auto) 79.5 H, Lymph % (Auto) 12.3 L, [place] % (Auto) 7.4, Eos % (Auto) 0.4, Baso % (Auto) 0.1, Absolute Neuts (auto) 8.0 H, Absolute Lymphs (auto) 1.23, Total Counted Not Reportable 09/23/18 06:46: POC Glucose 170 H 09/23/18 12:33: POC Glucose 178 H 09/23/18 15:19: POC Glucose 213 H Diagnostic Data Abdomen/Pelvis CT 09/22/18 04:57 IMPRESSION: No acute appendicitis or diverticulitis.. A 1 cm left lower quadrant epiploic appendagitis. Mild fecal stasis. Small benign looking adrenal densities Electronically Signed: Vernon Coronel MD at 5:51 EST Tel , Service support , Current Medications Acetaminophen (Tylenol) 650 mg PO Q6H PRN PRN PRN Reason: Non-cardiac pain (mod-severe) Hydrocodone Bitart/Acetaminophen ([place] 5mg-325mg) 1 - 2 tablet PO Q6H PRN PRN PRN Reason: Moderate-severe pain Al Hydroxide/Mg Hydroxide (Mylanta Ii) 30 ml PO Q6H PRN PRN PRN Reason: Gastric burning Aspirin (Ecotrin) 81 mg PO DAILY [facility] Last Admin: 09/23/18 10:57 Dose: 81 mg Atorvastatin Calcium (Lipitor) 10 mg PO QHS [facility] Last Admin: 09/22/18 22:59 Dose: 10 mg Calamine/Phenol (Calmoseptine Ointment) 1 applic TOPICAL 4X/DAY [facility]; Protocol Last Admin: 09/23/18 14:17 Dose: 1 applicatio Carvedilol (Coreg) 18.75 mg PO BID [facility] Last Admin: 09/23/18 10:58 Dose: 18.75 mg Clonazepam (Klonopin) 1 mg PO BID PRN PRN Reason: ANXIETY Clopidogrel Bisulfate (Plavix) 75 mg PO DAILY [facility] Last Admin: 09/23/18 10:58 Dose: 75 mg Dofetilide (Tikosyn) 250 mcg PO BID [facility] Last Admin: 09/23/18 10:58 Dose: 250 mcg Heparin Sodium (Porcine) (Heparin Na) 5,000 unit SC Q12 [facility] Last Admin: 09/23/18 10:59 Dose: 5,000 unit Hydralazine HCl (Apresoline Iv) 10 mg IV Q4H PRN PRN PRN Reason: SBP > 160 Insulin Human Lispro (Humalog Kwikpen (Bkc)) 0 unit SC ACHS [facility]; Protocol Last Admin: 09/23/18 12:34 Dose: 1 units Isosorbide Mononitrate (Imdur) 30 mg PO DAILY [facility] Last Admin: 09/23/18 10:59 Dose: 30 mg Levetiracetam (Keppra Tablet) 500 mg PO BID [facility] Last Admin: 09/23/18 10:58 Dose: 500 mg Levothyroxine Sodium (Synthroid) 100 mcg PO DAILY@0600 [facility] Last Admin: 09/23/18 06:48 Dose: 100 mcg Magnesium Hydroxide (Milk Of Magnesia) 30 ml PO DAILY PRN PRN PRN Reason: Constipation Last Admin: 09/22/18 20:36 Dose: 30 ml Mexiletine HCl (Mexitil) 150 mg PO TID [facility] Last Admin: 09/23/18 14:17 Dose: 150 mg Morphine Sulfate () 1 - 2 mg IV Q4H PRN PRN PRN Reason: PAIN Nitroglycerin (Nitrostat) 0.4 mg SUBLINGUAL Q5M PRN PRN Reason: Chest Pain Ondansetron HCl (Zofran) 4 mg IV Q8H PRN PRN PRN Reason: NAUSEA/VOMITING Polyethylene Glycol (Miralax) 17 gm PO DAILY [facility] Last Admin: 09/23/18 10:59 Dose: 17 gm Pramipexole Dihydrochloride (Mirapex) 1 mg PO 2000,2300 [facility] Last Admin: 09/22/18 23:00 Dose: 1 mg Promethazine HCl (Phenergan) 12.5 mg IV Q6H PRN PRN PRN Reason: NAUSEA/VOMITING Ranolazine (Ranexa) 1,000 mg PO BID [facility] Last Admin: 09/23/18 10:57 Dose: 1,000 mg Sodium Chloride () 5 - 30 ml IV UD PRN PRN Reason: SALINE FLUSH Last Admin: 09/23/18 15:38 Dose: 10 ml Medical Necessity - Tobacco Use Smoking Status: Former smoker Tobacco Use: Non-smoker Assessment/Plan All Active Problems (Last Reviewed 08/30/18 @ 13:48 by Ana Cristina Cobos) Epiploic appendagitis (Acute) Aortocoronary bypass status (Resolved) Subdural hematoma (Resolved) 1. Breakthrough seizure in a patient with known seizure disorder * had a probable seizure this afternoon, which resulted in rapid response being called. Had associated urinary incontinence, and had post ictal lethargy * received dose of Keppra 500mg PO this morning * given one dose of IV ativan 1mg once, and IV Keppra loading dose of 1000mg * says his dose of keppra has been gradually tapered recently, and he is now on keppra 500mg bid * Suspect that he may have had a seizure recently as he blacked out. * stat CT head without contrast; urgent neurology consult * transfer to PCU for closer monitoring * keep NPO for now * keppra level ordered on 09.17.18 is pending * seizure precautions 2. nausea, vomiting and abdominal pain likely due to constipation * resolved. * 3. Hyponatremia: Na is 128. Has chronic hyhponatremia, with baseline in 130s. Will hydrate with IVF and monitor 4. History of subdural hematoma: On Keppra. Is under 1. 5. CKD stage IV, stable. Creatinine is 1.8. Will monitor. 6. History of ventricular tachycardia status post pacemaker and ICD. * On mexiletine and Tikosyn. * 7. GERD: stable 8. CAD: stable. on statin, plavix and carvedilol as well as ranexa DVT prophylaxis; SCDs Code Visit Inpatient E&M: 45543 [facility] Hosp L3
[2018-09-23 17:00] LABS: Bedside Glucose 231 mg/dL (70-110)
--- NOTE | 2018-09-23 17:04 | CHAPLAIN ---
Type of Pastoral Visit ___ Initial Visit ___ Follow-up Visit ___ On-call Visit ___ General Patient Visit ___ Spiritual Assessment ___ Family Conference ___ Bereavement _x__ Rapid Response ___ Code Blue ___ Other (describe below) Pastoral Care Referral From ___ Patient _x__ Family ___ Nurse ___ Physician ___ Selenium Plant Operator ___ Horseshoer ___ Other (describe below) Sacrament/Intervention _x__ Active listening ___ Anointing ___ Church ___ Bereavement ___ Communion ___ Evelyne exploration ___ _x__ Life review _x__ Prayer ___ Reconciliation ___ Sacrament of Sick _x__ Supportive presence ___ Wedding ___ Other (describe below) Pastoral Comments
[2018-09-23] MEDS: 0.9% Normal Saline 1,000 ML 100 ML IV (19:06)
[2018-09-23 23:35] LABS: Bedside Glucose 169 mg/dL (70-110)
[2018-09-23] MEDS: levETIRAcetam IV 100 ML 400 MG IV (23:49)
[2018-09-24] VITALS (11 sets, daily range): BP systolic 100–119; BP diastolic 62–71; PULSE 60–63; RESP 12–18; TEMP 36.5–36.8; O2SAT 94–100
--- NOTE | 2018-09-24 00:24 | CPS ---
pt has his own cpap from home, bled in 2L o2 and added distilled water. machine is set up and ready to go.
[2018-09-24 00:41] LABS: Bedside Glucose 186 mg/dL (70-110)
[2018-09-24] MEDS: 0.9% Normal Saline 1,000 ML 100 ML IV ×2 (05:34→15:52)
[2018-09-24 05:55] LABS: Bedside Glucose 111 mg/dL (70-110)
[2018-09-24 06:27] LABS: Absolute Neutrophil Count 4.9 X10^3/uL (2.0-7.7); Basophil# 0.01 X10^3/uL; Basophil% 0.1 % (0-1); Eosinophils% 1.4 % (0-5); Hematocrit 34.2 % (40-54); Hemoglobin 11.4 g/dl (13.0-16.5); Lymphocyte % 18.6 % (19-41); Mean Corp Hgb Conc 33.3 g/gl (32-36); Mean Corpuscular Hgb 32.9 pg (27.0-32.0); Mean Corpuscular Volume 98.6 fL (80-94); Mean Platelet Vol. 9.8 fl (6.2-12.0); Monocyte# 0.63 X10^3/uL; Neutrophil # 4.92 X10^3/uL (2.7-7.7); Neutrophil % 70.5 % (47-70); Platelet Count 128 K/mm3 (150-450); RBC Distribution Width SD 50.3 fl (35.1-43.9); Red Blood Count 3.47 M/mm3 (4.6-6.2)
[2018-09-24 06:55] LABS: Anion Gap 12 (5-15); BUN 26 mg/dL (7-18); BUN/Creat Ratio 14.6 RATIO (10-20); Chloride 98 mmol/L (98-107); Creatinine, Serum 1.78 mg/dL (0.70-1.30); EST Glomerular Filtration Rate 39 mL/min (>60); Est Glom Filt Rate - Afr Amer 48 mL/min (>60); Estimated Creatinine Clearance 31.98 ml/min; Glucose 120 mg/dL (74-106); Sodium Level 134 mmol/L (136-145)
[2018-09-24 07:02] LABS: POSITIVE COUNT NO; POSITIVE DIFFERENTIAL NO; POSITIVE MORPHOLOGY NO
--- NOTE | 2018-09-24 09:42 | PCM.CONS.GEN ---
Reason for Consult Date of Consultation: 09/24/18 Reason for Consultation: seizure History of Present Illness: 78 yo white male presents after seizures. reports was feeling off balance and has had two reductions of keppra dosing over the past several months, resulting in improvement of balance however he has had two seizures, one of which was last night. came to hospital yesterday due to weakness, fell at home and couldnt get up but had been vomiting. also had oral surgery about one and one half weeks ago. reports had 6 teeth extracted and felt poorly again. took only one codeine, then tylenol. admits to poor po intake. was on keppra for over a year, doing well until recently. complicated by tooth extraction and gi issue. Per admit H&P: Nausea, Emesis, Abdominal Pain The patient is a 78 y/o M w/ PMHx: CAD s/p CABG, HTN, HLD, PAF/Ventricular Arrhythmia, Chronic Systolic CHF/Ischemic Cardiomyopathy s/p AICD, Diabetes mellitus type II, XOCHITL who presents to the [facility] ED on 09/22/18 with history of nausea, emesis, inability to tolerate oral intake in addition to intermittent abdominal diffuse cramping x 24 hours, noted to be episode in nature, pain 10/10 severe when present. Work-up in the ED included T 96.7, heart rate 84, BP 141/86, respiratory rate 18, 99% on room air, CBC with WBC 7.6, hemoglobin 12.6, platelets 180 without shift, CMP with sodium 128, chloride 88, BUN/creatinine 28/2.23, glucose 149, lipase 114, CT abdomen pelvis with no acute appendicitis over diverticulitis, 1 cm left lower quadrant epiploic appendagitis, mild fecal stasis, small benign looking adrenal densities. In the ED patient administered normal saline, Zofran. Progress note today indicates that the patient had a seizure in the hospital overnight. I discussed the patient yesterday with his primary care physician who indicated that the Keppra levels have been monitored as an outpatient and Keppra doses have written reduced due to untoward side effects as well as elevated levels. Past Medical History Past Medical History (Chronic Problems): Chronic Problems (Last Reviewed 09/24/18 @ 13:39 by Anthony Hyde MD) CKD (chronic kidney disease) stage 4, GFR 15-29 ml/min (Chronic) HLD (hyperlipidemia) (Chronic) Non-ST elevation (NSTEMI) myocardial infarction (Chronic) Angina pectoris (Chronic) CAD (coronary artery disease) (Chronic) Edema (Chronic) Dyspnea (Chronic) Renal disease (Chronic) Fatigue (Chronic) XOCHITL (obstructive sleep apnea) (Chronic) Diabetes mellitus type 2, noninsulin dependent (Chronic) Old myocardial infarction (Chronic) Long-term use of high-risk medication (Chronic) Chronic renal failure (Chronic) Cardiac murmur (Chronic) Hypokalemia (Chronic) Atherosclerotic heart disease of redding coronary artery without angina pectoris (Chronic) CABG 1988; Reoperation CABG x3 SVG to LAD, SVG to Rt PDA, Radial artery to OM-2 10/08/02; VT ablation @[facility] 01/03/17 [facility] 03/10/2016 Ventricular tachycardia (paroxysmal) (Chronic) ICD (implantable cardioverter-defibrillator) in place (Chronic ~11/2001) Implant 12/10/2001 ICD replacement 06/10/2009, 06/05/2014, Systolic CHF, chronic (Chronic) Cardiomyopathy, ischemic (Chronic) CKD (chronic kidney disease), stage II (Chronic) Type II diabetes mellitus, uncontrolled (Chronic) Esophageal reflux (Chronic) HLD (hyperlipidemia) (Chronic) HTN (hypertension) (Chronic) Hypothyroidism (Chronic) Sleep apnea (Chronic) Medical History: Medical History (Last Reviewed 09/24/18 @ 13:39 by Anthony Hyde MD) HLD (hyperlipidemia) (Chronic) E78.5 Non-ST elevation (NSTEMI) myocardial infarction (Chronic) I21.4 Angina pectoris (Chronic) I20.9 CAD (coronary artery disease) (Chronic) I25.10 Edema (Chronic) R60.9 Dyspnea (Chronic) R06.00 Renal disease (Chronic) N28.9 Fatigue (Chronic) R53.83 XOCHITL (obstructive sleep apnea) (Chronic) G47.33 Diabetes mellitus type 2, noninsulin dependent (Chronic) E11.9 Old myocardial infarction (Chronic) I25.2 Long-term use of high-risk medication (Chronic) Z79.899 Chronic renal failure (Chronic) N18.9 Cardiac murmur (Chronic) R01.1 Hypokalemia (Chronic) E87.6 Atherosclerotic heart disease of redding coronary artery without angina pectoris (Chronic) I25.10 CABG 1988; Reoperation CABG x3 SVG to LAD, SVG to Rt PDA, Radial artery to OM-2 10/08/02; VT ablation @[facility] 01/03/17 [facility] 03/10/2016 Ventricular tachycardia (paroxysmal) (Chronic) I47.2 ICD (implantable cardioverter-defibrillator) in place (Chronic) Onset Date: ~11/2001 Z95.810 Implant 12/10/2001 ICD replacement 06/10/2009, 06/05/2014, Systolic CHF, chronic (Chronic) I50.22 Cardiomyopathy, ischemic (Chronic) I25.5 Subdural hematoma (Resolved) I62.00 CAD (coronary artery disease) (Inactive) I25.10 CHF (congestive heart failure) (Inactive) I50.9 Visual hallucination (Inactive) R44.1 Allergies amiodarone Allergy (Verified 09/22/18 04:37) Other meperidine [From Demerol] Allergy (Verified 09/22/18 04:37) Low blood pressure spironolactone Allergy (Verified 09/22/18 04:37) Nausea simvastatin Adverse Reaction (Mild, Verified 09/22/18 04:37) Myalgias Home Medications: Ambulatory Orders Medication Instructions Recorded Nitroglycerin [Nitrostat] 0.4 mg SUBLINGUAL Q5M PRN 06/02/14 Ranolazine [Ranexa] 1,000 mg PO BID 06/02/14 Atorvastatin Calcium [Lipitor] 10 mg PO DAILY 08/20/14 Dofetilide 250 mcg PO BID 03/14/17 aspirin 81 mg tablet,delayed 81 mg PO DAILY 11/12/17 release bumetanide 1 mg tablet 1 mg PO BID 11/12/17 levothyroxine 100 mcg tablet 100 mcg PO DAILY tab 11/12/17 carvedilol 12.5 mg tablet 18.75 mg PO BID tab 11/14/17 clopidogrel 75 mg tablet 75 mg PO DAILY 11/14/17 Sitagliptin Phosphate [Januvia] 50 mg PO DAILY 01/18/18 lactobacillus combination no.8 3 3,000 mmu cells PO QDAY 02/22/18 billion cell capsule clonazepam 1 mg tablet 1 mg PO BID PRN 08/30/18 isosorbide mononitrate ER 30 mg 30 mg PO DAILY 08/30/18 tablet,extended release 24 hr levetiracetam 1,000 mg tablet 500 mg PO BID tab 08/30/18 metolazone 2.5 mg tablet 2.5 mg PO .COMPLEX tab 08/30/18 mexiletine 150 mg capsule 150 mg PO TID cap 08/30/18 potassium chloride ER 20 mEq 20 meq PO .3xweek tab 08/30/18 tablet,extended release(part/cryst) ropinirole 1 mg tablet 2 mg PO .COMPLEX tab 08/30/18 Surgical History: Surgical History (Last Reviewed 09/24/18 @ 13:40 by Anthony Hyde MD) Aortocoronary bypass status (Resolved) Z95.1 CABG 1988; Reoperation CABG x3 SVG to LAD, SVG to Rt PDA, Radial artery to OM-2 10/08/02; VT ablation @[facility] 01/03/17 H/O prior ablation treatment Onset Date: ~01/03/17 Z98.890 VT Ablation @ [facility] History of craniotomy Onset Date: ~06/2017 Z98.890 History of herniorrhaphy Z98.890, Z87.19 History of hip replacement Z96.649 RT History of knee surgery Z98.890 Rt S/P CABG (coronary artery bypass graft) (Inactive) Z95.1 Surgical History: cholecystectomy, coronary bypass surgery, - - ICD placement, CABG x 3, Cholecystectomy, RTHR, RTKR, Cardiac ablation, Craniotomy s/p SDH w/ fall. Psychiatric History: Anxiety, Depression Lives: Spouse/ Significant Other Smoking Status: Former smoker Tobacco Use: Non-smoker Alcohol: Rare Drugs: None - *Family History Paternal Family History: Family History (Last Reviewed 09/24/18 @ 13:40 by Anthony Hyde MD) Father CAD (coronary artery disease) Hypertension Myocardial infarction CHF (congestive heart failure) Mother CAD (coronary artery disease) Myocardial infarction Hypothyroid High cholesterol History Items: Diabetes, Heart Disease, Hypertension Maternal Family History: Family History (Last Reviewed 09/24/18 @ 13:40 by Anthony Hyde MD) Father CAD (coronary artery disease) Hypertension Myocardial infarction CHF (congestive heart failure) Mother CAD (coronary artery disease) Myocardial infarction Hypothyroid High cholesterol History Items: High Cholesterol, Heart Disease, Hypertension Patient Problems: Active and Suspected Problems (Last Reviewed 09/24/18 @ 13:39 by Anthony Hyde MD) Epiploic appendagitis (Acute) - Physical Exam General: Alert, Oriented x3, Cooperative, No apparent distress Neurological: Cranial nerves II-XII grossly intact, Neuro grossly intact Psych/Mental Status: Normal Affect Vital Signs Temp Pulse Resp BP Pulse Ox 36.5 C L 60 13 100/71 97 09/24/18 04:29 09/24/18 07:10 09/24/18 04:29 09/24/18 04:29 09/24/18 07:50 Oxygen Flow Rate (L/min) 2.5 Oxygen Delivery Method Nasal Cannula Weight: 84.2 kg Body Mass Index (BMI) 29.0 Finger Stick Blood Glucose 249 Intake and Output for Last 24 Hours 09/22/18 09/23/18 09/24/18 23:59 23:59 23:59 Intake Total 1926 / 1926 2265 / 2264 479 / 479 Output Total 101 / 101 880 / 880 Balance 1926 / 1926 2164 / 2164 -401 / -401 Microbiology Past 72 Hours 09/22/18 19:10 Stool Occult Blood (DEBORAH) - Final Stool Occult Blood Positive Laboratory Tests Past 24 Hrs 09/24/18 09/24/18 05:35 05:35 WBC 7.0 RBC 3.47 L Hgb 11.4 L Hct 34.2 L MCV 98.6 H MCH 32.9 H MCHC 33.3 RDW 14.0 RDW Differential 50.3 H Plt Count 128 L MPV 9.8 Immature Gran % (Auto) 0.400 Neut % (Auto) 70.5 H Lymph % (Auto) 18.6 L [place] % (Auto) 9.0 Eos % (Auto) 1.4 Baso % (Auto) 0.1 Absolute Neuts (auto) 4.9 Absolute Lymphs (auto) 1.30 Total Counted Not Reportable Sodium 134 L Potassium 4.0 Chloride 98 Carbon Dioxide 24.0 Anion Gap 12 BUN 26 H Creatinine 1.78 H Estim Creat Clear Calc 31.98 Est GFR (MDRD) Af Amer 48 L Est GFR (MDRD) Non-Af 39 L BUN/Creatinine Ratio 14.6 Glucose 120 H Calcium 8.0 L POC Glucose 09/24/18 09/23/18 09/23/18 05:47 23:42 22:38 POC Glucose 111 H 186 H 169 H 09/23/18 09/23/18 09/23/18 16:24 15:19 12:33 POC Glucose 231 H 213 H 178 H mri no acute Assessment/Plan All Active Problems (Last Reviewed 09/24/18 @ 13:39 by Anthony Hyde MD) Epiploic appendagitis (Acute) Aortocoronary bypass status (Resolved) Subdural hematoma (Resolved) seizure disorder, s/p ich about one year ago. seizures have worsened however he has intercurrent gi upset with n/v, likely missed doses of keppra as a result. restart keppra 750mg bid, monitor for dehydration, adjust doses on the basis of seizure and side effects. levels less pertinent
[2018-09-24] MEDS: Carvedilol 12.5 MG Tablet 18.75 MG PO ×2 (10:48→22:28)
[2018-09-24] MEDS: Polyethylene Glycol 3350 17 GM PACKET PO (10:49)
[2018-09-24] MEDS: Heparin Injection (Vial) 5,000 UNIT/ML VIAL 5000 UNIT SC ×2 (10:49→22:29)
[2018-09-24] MEDS: Dofetilide 250 MCG Capsule PO ×2 (10:49→22:31)
[2018-09-24] MEDS: Isosorbide Mononitrate 30 MG Tablet PO (10:50)
[2018-09-24] MEDS: levETIRAcetam IV 100 ML 400 MG IV (11:00)
[2018-09-24 12:01] LABS: Bedside Glucose 138 mg/dL (70-110)
--- NOTE | 2018-09-24 12:54 | CASEMGMT ---
RN RADHA said patient and his may be interested in the rehab unit. SW spoke with Kyra in rehab and she spoke with Dr Hyde who said he would be willing to take patient, but it will be up to insurance. SW to review therapy notes and talk with patient and . Ela RODRÍGUEZ [employer]
--- NOTE | 2018-09-24 14:09 | CASEMGMT ---
TAYLOR spoke with patient and his . Introduced self and role at [facility]. SW let them know that the rehab unit would be willing to take him. However, his insurance would have to approve it. TAYLOR explained if rehab is not approved would they want TCU. They would prefer rehab, but if insurance denies that they will go with TCU. TAYLOR spoke with Fabiola and she would have a bed for patient Sunday. Plan: [facility] 4th floor rehab pending insurance approval and if denied will try for [facility] TCU. Ela RODRÍGUEZ MSW
[2018-09-24] MEDS: Menthol/Lanolin/Calamine/Znox 113 GM Tube 1 APPLIC TOPICAL ×3 (14:39→22:33)
[2018-09-24] MEDS: Mexiletine 150 MG Capsule PO ×2 (14:40→22:31)
--- NOTE | 2018-09-24 17:10 | CASEMGMT ---
Addendum entered by Aleksey Shirley 09/24/18 17:18: Assessment completed @ 3505. Original Note: BEKA GARCIA INITIAL ASSESSMENT D/C PLAN: wishes for pt to go to on d/c. Pt agreeable. TAYLOR notified. Face to Face with patient for initial transition planning/care coordination assessment. BEKA GARCIA introduced self and role at [facility]. Pt resting quietly in bed. Awake/alert/oriented. and friend @ bedside. Pt agreeable to assessment with visitor present in room. All questions answered appropriately. Care providers, pharmacy, and demographics verified. PCP: Dami Shoemaker Pharmacy: [facility], [facility] Retail on day of d/c only Insurance: [employer] [facility] Prescription Benefit: Yes Living Will/HPOA: Has both LW and HCPOAl, who is his , [place]. Both found in e-chart. LNOK: Living Arrangements: Lives with in a 2-story home. Has 16 steps to enter into the home w/handrails. 12 steps to go to the basement where he spends a lot of time. Pt independent with dressing and bathing himself prior to admission. assists with compression socks. does the laundery DME: Pt has rails/grab bars, tub shower w/grab bars, cane, rollator, medical alert button, and CPAP. States does not have a shower chair but that he does not want one at this time. Denies needs for other DME. HHC/SNF: Has been to . states she is nervous about returning home and states she wishes for pt to go to upon discharge. Pt agreeable. Ela VAZQUEZ, notified. CM to follow for any further discharge planning needs that may arise. Brittny SHAVERN BEKA GARCIA
--- NOTE | 2018-09-24 17:16 | CHAPLAIN ---
Type of Pastoral Visit ___ Initial Visit _x__ Follow-up Visit ___ On-call Visit ___ General Patient Visit ___ Spiritual Assessment ___ Family Conference ___ Bereavement ___ Rapid Response ___ Code Blue ___ Other (describe below) Pastoral Care Referral From _x__ Patient _x__ Family ___ Nurse ___ Physician ___ Software Quality Automation Engineer ___ Blocker [employer] Forms ___ Other (describe below) Sacrament/Intervention _x__ Active listening ___ Anointing ___ Mormonism ___ Bereavement ___ Communion ___ Evelyne exploration ___ ___ Life review _x__ Prayer ___ Reconciliation ___ Sacrament of Sick ___ Supportive presence ___ Wedding ___ Other (describe below) Pastoral Comments patient has had a great turn around; pt and spouse are very pleased and express thanks to everyone
[2018-09-24] MEDS: Insulin Lispro 100 UNIT/ML INSULN.PEN SC ×2 (18:21→23:42)
[2018-09-24 18:30] LABS: Bedside Glucose 231 mg/dL (70-110)
--- NOTE | 2018-09-24 19:21 | PN_ITS ---
Patient Problems: Active and Suspected Problems (Last Reviewed 09/24/18 @ 13:39 by Anthony Hyde MD) Epiploic appendagitis (Acute) Subjective: Patient was seen and examined today, he appeared overall weak, I talked at length with his , his would like him to go to the rehab unit at [facility] if possible, if not, she understands he will have to go to a senior care facility for rehab. Patient was seen by neurology today who recommended continuing seizure medications. - Physical Exam General: Alert, Oriented x3, Cooperative, No apparent distress, Well developed, Lethargic HEENT: Atraumatic, PERRLA, EOMI, Normocephalic Oral: Moist Mucosa Neck: Supple, Trachea Midline, Thyroid Normal Size and Texture Lungs: Clear to auscultation, Normal air movement, No rhonchi, No wheeze, No rales Cardiovascular: Regular rate, Regular Rhythm, Normal S1, Normal S2, No murmurs, No Ectopic Activity Abdomen: Bowel Sounds Present, Soft, Non Tender, Non-Distended, No hernias noted Extremities: No clubbing, No cyanosis, No edema, Capillary Refill Less than 3 Seconds Skin: No rashes, No breakdown Musculoskeletal: No Tenderness to Palpation of Joints or Extremities Neurological: Cranial nerves II-XII grossly intact, Neuro grossly intact, Sensory exam intact to light touch and pain Psych/Mental Status: Appropriate, Flat Affect, Alert and oriented to time, place, person, mood and affect Vital Signs Temp Pulse Resp BP Pulse Ox 98.3 F 61 14 106/65 100 09/24/18 16:08 09/24/18 18:47 09/24/18 16:08 09/24/18 16:08 09/24/18 16:08 Oxygen Flow Rate (L/min) 2.5 Oxygen Delivery Method Room Air Weight: 84.2 kg Body Mass Index (BMI) 29.0 Finger Stick Blood Glucose 249 Intake and Output for Last 24 Hours 09/22/18 09/23/18 09/24/18 23:59 23:59 23:59 Intake Total 1926 2265 / 2265 2319 / 2319 Output Total 101 / 101 880 / 880 Balance 1926 / 1926 2164 / 2164 1439 / 1439 Microbiology Past 72 Hours 09/22/18 19:10 Stool Occult Blood (DEBORAH) - Final Stool Occult Blood Positive Laboratory Tests Past 24 Hrs 09/24/18 09/24/18 05:35 05:35 WBC 7.0 RBC 3.47 L Hgb 11.4 L Hct 34.2 L MCV 98.6 H MCH 32.9 H MCHC 33.3 RDW 14.0 RDW Differential 50.3 H Plt Count 128 L MPV 9.8 Immature Gran % (Auto) 0.400 Neut % (Auto) 70.5 H Lymph % (Auto) 18.6 L [place] % (Auto) 9.0 Eos % (Auto) 1.4 Baso % (Auto) 0.1 Absolute Neuts (auto) 4.9 Absolute Lymphs (auto) 1.30 Total Counted Not Reportable Sodium 134 L Potassium 4.0 Chloride 98 Carbon Dioxide 24.0 Anion Gap 12 BUN 26 H Creatinine 1.78 H Estim Creat Clear Calc 31.98 Est GFR (MDRD) Af Amer 48 L Est GFR (MDRD) Non-Af 39 L BUN/Creatinine Ratio 14.6 Glucose 120 H Calcium 8.0 L POC Glucose 09/24/18 09/24/18 09/24/18 18:15 11:08 05:47 POC Glucose 231 H 138 H 111 H 09/23/18 09/23/18 23:42 22:38 POC Glucose 186 H 169 H Medical Necessity - Tobacco Use Smoking Status: Former smoker Tobacco Use: Non-smoker Assessment/Plan All Active Problems (Last Reviewed 09/24/18 @ 13:39 by Anthony Hyde MD) Epiploic appendagitis (Acute) Aortocoronary bypass status (Resolved) Subdural hematoma (Resolved) #1 breakthrough seizures-patient is to remain on his present seizure medications per neurology #2 nausea and vomiting with abdominal pain-likely secondary to epiploic appendagitis, resolving #3 chronic hyponatremia-patient's sodium was 134 today #4 chronic kidney disease stage IV #5 history of ventricular tachycardia-on antiarrhythmics #6 coronary artery disease #7 debility-PT and OT will continue to see the patient, he will likely need temporary placement in a rehab facility or a senior care facility #8 Epiploic appendagitis Code Visit Inpatient E&M: 14906 Subs Hosp L2
[2018-09-24] MEDS: Pramipexole Di-HCl 1 MG Tablet PO (22:28)
[2018-09-24] MEDS: Atorvastatin Calcium 10 MG Tablet PO (22:30)
[2018-09-24] MEDS: levETIRAcetam 750 MG Tablet PO (22:33)
[2018-09-25] VITALS (12 sets, daily range): BP systolic 96–133; BP diastolic 57–76; PULSE 60–67; RESP 14–18; TEMP 36.6–36.8; O2SAT 96–99
[2018-09-25] MEDS: 0.9% Normal Saline 1,000 ML 100 ML IV ×3 (01:00→21:35)
[2018-09-25 02:11] LABS: Bedside Glucose 202 mg/dL (70-110)
--- NOTE | 2018-09-25 04:29 | NURSING ---
Vitals late in VSA as pt was in bathroom from approximately 04:05 to 04:35.
[2018-09-25] MEDS: Mexiletine 150 MG Capsule PO ×3 (06:22→21:39)
[2018-09-25] MEDS: Levothyroxine 100 MCG Tablet PO (06:22)
[2018-09-25 06:59] LABS: Anion Gap 9 (5-15); BUN 26 mg/dL (7-18); BUN/Creat Ratio 15.4 RATIO (10-20); Calcium,Total 7.6 mg/dL (8.5-10.1); Chloride 102 mmol/L (98-107); Creatinine, Serum 1.69 mg/dL (0.70-1.30); EST Glomerular Filtration Rate 42 mL/min (>60); Est Glom Filt Rate - Afr Amer 51 mL/min (>60); Estimated Creatinine Clearance 33.68 ml/min; Glucose 143 mg/dL (74-106); Magnesium 2.4 mg/dL (1.6-2.6); Potassium 3.8 mmol/L (3.5-5.1); Sodium Level 136 mmol/L (136-145)
[2018-09-25 07:11] LABS: Bedside Glucose 126 mg/dL (70-110)
[2018-09-25] MEDS: Carvedilol 12.5 MG Tablet 18.75 MG PO (09:34)
[2018-09-25] MEDS: Heparin Injection (Vial) 5,000 UNIT/ML VIAL 5000 UNIT SC ×2 (09:34→21:37)
[2018-09-25] MEDS: Polyethylene Glycol 3350 17 GM PACKET PO (09:35)
[2018-09-25] MEDS: Isosorbide Mononitrate 30 MG Tablet PO (09:35)
[2018-09-25] MEDS: Menthol/Lanolin/Calamine/Znox 113 GM Tube 1 APPLIC TOPICAL ×3 (09:36→21:36)
[2018-09-25] MEDS: Dofetilide 250 MCG Capsule PO ×2 (09:36→21:38)
[2018-09-25] MEDS: levETIRAcetam 750 MG Tablet PO ×2 (09:36→21:37)
[2018-09-25 11:26] LABS: Bedside Glucose 179 mg/dL (70-110)
[2018-09-25] MEDS: Insulin Lispro 100 UNIT/ML INSULN.PEN SC ×2 (11:31→21:37)
--- NOTE | 2018-09-25 12:57 | PCM.PN.HOSP ---
Patient Problems: Active and Suspected Problems (Last Reviewed 09/24/18 @ 13:39 by Anthony Hyde MD) Epiploic appendagitis (Acute) Subjective: Patient seen and examined. He is alert and has no complaints. He feels well and denies any fever or chills, cough or chest pain, any shortness of breath, abdominal pain, any diarrhea vomiting. Review of systems otherwise negative. Labs and vitals reviewed. His dose of Keppra has been increased to 750 mg twice daily and is awaiting discharge to rehab. Vitals/I&O's: Vital Signs Temp Pulse Resp BP Pulse Ox 98.3 F 60 14 110/66 96 09/25/18 09:30 09/25/18 11:00 09/25/18 09:30 09/25/18 09:30 09/25/18 09:30 Oxygen Flow Rate (L/min) 2 Oxygen Delivery Method Room Air Weight: 185 lb 10.067 oz Body Mass Index (BMI) 29.0 Finger Stick Blood Glucose 249 Intake and Output for Last 24 Hours 09/23/18 09/24/18 09/25/18 23:59 23:59 23:59 Intake Total 2265 / 2265 3456 / 3456 1659 / 1659 Output Total 101 / 101 880 / 880 550 / 550 Balance 2164 / 2164 2576 / 2576 1109 / 1109 General: Alert, Oriented x3, Cooperative, No apparent distress HEENT: Atraumatic, PERRLA, EOMI, Normocephalic Oral: Moist Mucosa Neck: Supple, No JVD, Negative Carotid Bruits Lungs: Clear to auscultation, Normal air movement, No rhonchi, No wheeze, No rales Cardiovascular: Regular rate, Regular Rhythm, Normal S1, Normal S2, No murmurs Abdomen: Bowel Sounds Present, Soft, Non Tender, Non-Distended, No Hepato-splenomegaly Extremities: No clubbing, No cyanosis, No edema, Capillary Refill Less than 3 Seconds Skin: No rashes, No breakdown Musculoskeletal: No Tenderness to Palpation of Joints or Extremities Lymphatic: No Cervical, Supraclavicular, or Inguinal Adenopathy Neurological: Cranial nerves II-XII grossly intact, Neuro grossly intact, Motor Exam 5/5 strength throughout Psych/Mental Status: Normal Affect, Appropriate, Alert and oriented to time, place, person, mood and affect Microbiology Past 72 Hours 09/22/18 19:10 Stool Stool Occult Blood (DEBORAH) - Final Occult Blood Positive Laboratory Results 09/24/18 18:15: POC Glucose 231 H 09/24/18 23:41: POC Glucose 202 H 09/25/18 06:05: Sodium 136, Potassium 3.8, Chloride 102, Carbon Dioxide 25.0, Anion Gap 9, BUN 26 H, Creatinine 1.69 H, Estim Creat Clear Calc 33.68, Est GFR (MDRD) Af Amer 51 L, Est GFR (MDRD) Non-Af 42 L, BUN/Creatinine Ratio 15.4, Glucose 143 H, Calcium 7.6 L, Magnesium 2.4 09/25/18 06:51: POC Glucose 126 H 09/25/18 11:22: POC Glucose 179 H Diagnostic Data Abdomen/Pelvis CT 09/22/18 04:57 IMPRESSION: No acute appendicitis or diverticulitis.. A 1 cm left lower quadrant epiploic appendagitis. Mild fecal stasis. Small benign looking adrenal densities Electronically Signed: Vernon Coronel MD at 5:51 EST Tel , Service support , Brain CT 09/23/18 15:23 IMPRESSION: Chronic involutional changes of the brain. No definite acute abnormality.. Electronically Signed: Raymond Dawson MD at 16:59 EST , Service support , Current Medications Acetaminophen (Tylenol) 650 mg PO Q6H PRN PRN PRN Reason: Non-cardiac pain (mod-severe) Hydrocodone Bitart/Acetaminophen ([place] 5mg-325mg) 1 - 2 tablet PO Q6H PRN PRN PRN Reason: Moderate-severe pain Al Hydroxide/Mg Hydroxide (Mylanta Ii) 30 ml PO Q6H PRN PRN PRN Reason: Gastric burning Atorvastatin Calcium (Lipitor) 10 mg PO QHS [facility] Last Admin: 09/24/18 22:30 Dose: 10 mg Calamine/Phenol (Calmoseptine Ointment) 1 applic TOPICAL 4X/DAY [facility]; Protocol Last Admin: 09/25/18 09:36 Dose: 1 applicatio Carvedilol (Coreg) 18.75 mg PO BID [facility] Last Admin: 09/25/18 09:34 Dose: 18.75 mg Clonazepam (Klonopin) 1 mg PO BID PRN PRN Reason: ANXIETY Dofetilide (Tikosyn) 250 mcg PO BID [facility] Last Admin: 09/25/18 09:36 Dose: 250 mcg Heparin Sodium (Porcine) (Heparin Na) 5,000 unit SC Q12 [facility] Last Admin: 09/25/18 09:34 Dose: 5,000 unit Hydralazine HCl (Apresoline Iv) 10 mg IV Q4H PRN PRN PRN Reason: SBP > 160 Sodium Chloride () 1,000 mls @ 100 mls/hr IV .Q10H [facility] Last Admin: 09/25/18 11:31 Dose: 100 mls/hr Insulin Human Lispro (Humalog Kwikpen (Bkc)) 0 unit SC ACHS [facility]; Protocol Last Admin: 09/25/18 11:31 Dose: 1 units Isosorbide Mononitrate (Imdur) 30 mg PO DAILY [facility] Last Admin: 09/25/18 09:35 Dose: 30 mg Levetiracetam (Keppra Tablet) 750 mg PO BID [facility] Last Admin: 09/25/18 09:36 Dose: 750 mg Levothyroxine Sodium (Synthroid) 100 mcg PO DAILY@0600 [facility] Last Admin: 09/25/18 06:22 Dose: 100 mcg Magnesium Hydroxide (Milk Of Magnesia) 30 ml PO DAILY PRN PRN PRN Reason: Constipation Last Admin: 09/22/18 20:36 Dose: 30 ml Mexiletine HCl (Mexitil) 150 mg PO TID [facility] Last Admin: 09/25/18 06:22 Dose: 150 mg Morphine Sulfate () 1 - 2 mg IV Q4H PRN PRN PRN Reason: PAIN Nitroglycerin (Nitrostat) 0.4 mg SUBLINGUAL Q5M PRN PRN Reason: Chest Pain Ondansetron HCl (Zofran) 4 mg IV Q8H PRN PRN PRN Reason: NAUSEA/VOMITING Polyethylene Glycol (Miralax) 17 gm PO DAILY [facility] Last Admin: 09/25/18 09:35 Dose: 17 gm Pramipexole Dihydrochloride (Mirapex) 1 mg PO 1999,0 [facility] Last Admin: 09/24/18 22:28 Dose: 1 mg Promethazine HCl (Phenergan) 12.5 mg IV Q6H PRN PRN PRN Reason: NAUSEA/VOMITING Sodium Chloride () 5 - 30 ml IV UD PRN PRN Reason: SALINE FLUSH Last Admin: 09/23/18 15:38 Dose: 10 ml Medical Necessity - Tobacco Use Smoking Status: Former smoker Tobacco Use: Non-smoker Assessment/Plan All Active Problems (Last Reviewed 09/24/18 @ 13:39 by Anthony Hyde MD) Epiploic appendagitis (Acute) Aortocoronary bypass status (Resolved) Subdural hematoma (Resolved) 1. Seizure disorder had a breakthrough seizure a couple of days ago; his keppra dose had been reduced neurology on board; now on PO keppra 750mg bid neurology on board seizure precautions 2. Nausea, vomiting and abdominal pain: resolved 3. Hyponatremia: resolved. Na is now 136. Will monitor 4. History of subdural hematoma with seizures: On Keppra. 5. CKD stage IV, stable. Creatinine is 1.69. Will monitor. 6. History of ventricular tachycardia status post pacemaker and ICD. On mexiletine and Tikosyn. 7. GERD: stable 8. CAD: stable. on statin, plavix and carvedilol as well as ranexa 9. Hypothyroidism: on synthroid 10. Hypertension: on carvedilol 11`. Diabetes mellitus: on sitagliptin. ISS. Accuchecks ACHS DVT prophylaxis; heparin Disposition: for placement Code Visit Inpatient E&M: 12598 Subs Hosp L2
--- NOTE | 2018-09-25 13:07 | PN_ITS ---
Patient Problems: Active and Suspected Problems (Last Reviewed 09/24/18 @ 13:39 by Anthony Hyde MD) Epiploic appendagitis (Acute) Subjective: Patient seen and examined. He is alert and has no complaints. He feels well and denies any fever or chills, cough or chest pain, any shortness of breath, abdominal pain, any diarrhea vomiting. Review of systems otherwise negative. Labs and vitals reviewed. His dose of Keppra has been increased to 750 mg twice daily and is awaiting discharge to rehab. Vitals/I&O's: Vital Signs Temp Pulse Resp BP Pulse Ox 98.3 F 60 14 110/66 96 09/25/18 09:30 09/25/18 11:00 09/25/18 09:30 09/25/18 09:30 09/25/18 09:30 Oxygen Flow Rate (L/min) 2 Oxygen Delivery Method Room Air Weight: 185 lb 10.067 oz Body Mass Index (BMI) 29.0 Finger Stick Blood Glucose 249 Intake and Output for Last 24 Hours 09/23/18 09/24/18 09/25/18 23:59 23:59 23:59 Intake Total 2265 / 2265 3456 / 3456 1659 / 1659 Output Total 101 / 101 880 / 880 550 / 550 Balance 2164 / 2164 2576 / 2576 1109 / 1109 General: Alert, Oriented x3, Cooperative, No apparent distress HEENT: Atraumatic, PERRLA, EOMI, Normocephalic Oral: Moist Mucosa Neck: Supple, No JVD, Negative Carotid Bruits Lungs: Clear to auscultation, Normal air movement, No rhonchi, No wheeze, No rales Cardiovascular: Regular rate, Regular Rhythm, Normal S1, Normal S2, No murmurs Abdomen: Bowel Sounds Present, Soft, Non Tender, Non-Distended, No Hepato-splenomegaly Extremities: No clubbing, No cyanosis, No edema, Capillary Refill Less than 3 Seconds Skin: No rashes, No breakdown Musculoskeletal: No Tenderness to Palpation of Joints or Extremities Lymphatic: No Cervical, Supraclavicular, or Inguinal Adenopathy Neurological: Cranial nerves II-XII grossly intact, Neuro grossly intact, Motor Exam 5/5 strength throughout Psych/Mental Status: Normal Affect, Appropriate, Alert and oriented to time, place, person, mood and affect Microbiology Past 72 Hours 09/22/18 19:10 Stool Stool Occult Blood (DEBORAH) - Final Occult Blood Positive Laboratory Results 09/24/18 18:15: POC Glucose 231 H 09/24/18 23:41: POC Glucose 202 H 09/25/18 06:05: Sodium 136, Potassium 3.8, Chloride 102, Carbon Dioxide 25.0, Anion Gap 9, BUN 26 H, Creatinine 1.69 H, Estim Creat Clear Calc 33.68, Est GFR (MDRD) Af Amer 51 L, Est GFR (MDRD) Non-Af 42 L, BUN/Creatinine Ratio 15.4, Glucose 143 H, Calcium 7.6 L, Magnesium 2.4 09/25/18 06:51: POC Glucose 126 H 09/25/18 11:22: POC Glucose 179 H Diagnostic Data Abdomen/Pelvis CT 09/22/18 04:57 IMPRESSION: No acute appendicitis or diverticulitis.. A 1 cm left lower quadrant epiploic appendagitis. Mild fecal stasis. Small benign looking adrenal densities Electronically Signed: Vernon Coronel MD at 5:51 EST Tel , Service support , Brain CT 09/23/18 15:23 IMPRESSION: Chronic involutional changes of the brain. No definite acute abnormality.. Electronically Signed: Raymond Dawson MD at 16:59 EST , Service support , Current Medications Acetaminophen (Tylenol) 650 mg PO Q6H PRN PRN PRN Reason: Non-cardiac pain (mod-severe) Hydrocodone Bitart/Acetaminophen ([place] 5mg-325mg) 1 - 2 tablet PO Q6H PRN PRN PRN Reason: Moderate-severe pain Al Hydroxide/Mg Hydroxide (Mylanta Ii) 30 ml PO Q6H PRN PRN PRN Reason: Gastric burning Atorvastatin Calcium (Lipitor) 10 mg PO QHS SUNG Last Admin: 09/24/18 22:30 Dose: 10 mg Calamine/Phenol (Calmoseptine Ointment) 1 applic TOPICAL 4X/DAY [facility]; Protocol Last Admin: 09/25/18 09:36 Dose: 1 applicatio Carvedilol (Coreg) 18.75 mg PO BID [facility] Last Admin: 09/25/18 09:34 Dose: 18.75 mg Clonazepam (Klonopin) 1 mg PO BID PRN PRN Reason: ANXIETY Dofetilide (Tikosyn) 250 mcg PO BID [facility] Last Admin: 09/25/18 09:36 Dose: 250 mcg Heparin Sodium (Porcine) (Heparin Na) 5,000 unit SC Q12 [facility] Last Admin: 09/25/18 09:34 Dose: 5,000 unit Hydralazine HCl (Apresoline Iv) 10 mg IV Q4H PRN PRN PRN Reason: SBP > 160 Sodium Chloride () 1,000 mls @ 100 mls/hr IV .Q10H [facility] Last Admin: 09/25/18 11:31 Dose: 100 mls/hr Insulin Human Lispro (Humalog Kwikpen (Bkc)) 0 unit SC ACHS [facility]; Protocol Last Admin: 09/25/18 11:31 Dose: 1 units Isosorbide Mononitrate (Imdur) 30 mg PO DAILY [facility] Last Admin: 09/25/18 09:35 Dose: 30 mg Levetiracetam (Keppra Tablet) 750 mg PO BID [facility] Last Admin: 09/25/18 09:36 Dose: 750 mg Levothyroxine Sodium (Synthroid) 100 mcg PO DAILY@0600 [facility] Last Admin: 09/25/18 06:22 Dose: 100 mcg Magnesium Hydroxide (Milk Of Magnesia) 30 ml PO DAILY PRN PRN PRN Reason: Constipation Last Admin: 09/22/18 20:36 Dose: 30 ml Mexiletine HCl (Mexitil) 150 mg PO TID [facility] Last Admin: 09/25/18 06:22 Dose: 150 mg Morphine Sulfate () 1 - 2 mg IV Q4H PRN PRN PRN Reason: PAIN Nitroglycerin (Nitrostat) 0.4 mg SUBLINGUAL Q5M PRN PRN Reason: Chest Pain Ondansetron HCl (Zofran) 4 mg IV Q8H PRN PRN PRN Reason: NAUSEA/VOMITING Polyethylene Glycol (Miralax) 17 gm PO DAILY [facility] Last Admin: 09/25/18 09:35 Dose: 17 gm Pramipexole Dihydrochloride (Mirapex) 1 mg PO 1999,2300 [facility] Last Admin: 09/24/18 22:28 Dose: 1 mg Promethazine HCl (Phenergan) 12.5 mg IV Q6H PRN PRN PRN Reason: NAUSEA/VOMITING Sodium Chloride () 5 - 30 ml IV UD PRN PRN Reason: SALINE FLUSH Last Admin: 09/23/18 15:38 Dose: 10 ml Medical Necessity - Tobacco Use Smoking Status: Former smoker Tobacco Use: Non-smoker Assessment/Plan All Active Problems (Last Reviewed 09/24/18 @ 13:39 by Anthony Hdye MD) Epiploic appendagitis (Acute) Aortocoronary bypass status (Resolved) Subdural hematoma (Resolved) 1. Seizure disorder * had a breakthrough seizure a couple of days ago; his keppra dose had been reduced * neurology on board; now on PO keppra 750mg bid * neurology on board * seizure precautions * 2. Nausea, vomiting and abdominal pain: resolved 3. Hyponatremia: resolved. Na is now 136. Will monitor 4. History of subdural hematoma with seizures: On Keppra. 5. CKD stage IV, stable. Creatinine is 1.69. Will monitor. 6. History of ventricular tachycardia status post pacemaker and ICD. * On mexiletine and Tikosyn. * 7. GERD: stable 8. CAD: stable. on statin, plavix and carvedilol as well as ranexa 9. Hypothyroidism: on synthroid 10. Hypertension: on carvedilol 11`. Diabetes mellitus: on sitagliptin. ISS. Accuchecks ACHS DVT prophylaxis; heparin Disposition: for placement Code Visit Inpatient E&M: 31636 Subs Hosp L2
--- NOTE | 2018-09-25 15:20 | CASEMGMT ---
Patient has been denied for the inpatient rehab unit. SW spoke with patient and his and they decided they do not want to try for TCU. Patient wants to go home with home health. They were okay with [facility]. TAYLOR called Ana Cristina with [facility] and made a referral. TAYLOR anticipates d/c tomorrow. Plan: Home with [facility] Ela LANDAVERDE
[2018-09-25 16:16] LABS: Bedside Glucose 178 mg/dL (70-110)
[2018-09-25] MEDS: Pramipexole Di-HCl 1 MG Tablet PO ×2 (21:36→23:51)
[2018-09-25] MEDS: Atorvastatin Calcium 10 MG Tablet PO (21:39)
[2018-09-25 21:50] LABS: Bedside Glucose 174 mg/dL (70-110)
[2018-09-26] VITALS (7 sets, daily range): BP systolic 109–126; BP diastolic 66–77; PULSE 73–88; RESP 17–18; TEMP 36.4–37; O2SAT 95–98
[2018-09-26 03:33] LABS: Amphetamine Urine VISTA NEGATIVE (<1000 ng/mL); Barbiturate Urine VISTA NEGATIVE (< 200 ng/mL); Benzodiazepine Urine VISTA NEGATIVE (< 200 ng/mL); Cocaine Urine VISTA NEGATIVE (< 300 ng/mL); Ecstacy Urine VISTA NEGATIVE (< 500 ng/mL); Methadone Urine VISTA NEGATIVE (< 300 ng/mL); PCP Urine VISTA NEGATIVE (< 25 ng/mL); THC Urine VISTA NEGATIVE (< 50 ng/mL); Vista UDS pH Range 5
[2018-09-26] MEDS: Levothyroxine 100 MCG Tablet PO (05:16)
[2018-09-26] MEDS: Mexiletine 150 MG Capsule PO ×2 (05:16→14:23)
--- NOTE | 2018-09-26 05:32 | NURSING ---
Patient states he does not want anymore blood sugar checks that his fingers are too sore. Will pass on to dayshift.
[2018-09-26 06:22] LABS: Absolute Lymphocyte Count 1.41 X10^3/ul (0.83-4.51); Absolute Neutrophil Count 4.4 X10^3/uL (2.0-7.7); Basophil# 0.03 X10^3/uL; Basophil% 0.5 % (0-1); Eosinophil# 0.25 X10^3/uL; Eosinophils% 3.8 % (0-5); Hemoglobin 10.6 g/dl (13.0-16.5); Lymphocyte # 1.41 X10^3/ul (4.0); Lymphocyte % 21.4 % (19-41); Mean Corp Hgb Conc 33.1 g/gl (32-36); Mean Corpuscular Hgb 33.7 pg (27.0-32.0); Mean Corpuscular Volume 101.6 fL (80-94); Mean Platelet Vol. 10.4 fl (6.2-12.0); Monocyte# 0.51 X10^3/uL; Monocyte% 7.7 % (0-10); Neutrophil # 4.37 X10^3/uL (2.7-7.7); Neutrophil % 66.1 % (47-70); Platelet Count 103 K/mm3 (150-450); RBC Distribution Width CV 13.6 % (11.6-14.6); RBC Distribution Width SD 48.4 fl (35.1-43.9); Red Blood Count 3.15 M/mm3 (4.6-6.2); White Blood Count 6.6 K/mm3 (4.4-11.0)
[2018-09-26] MEDS: 0.9% Normal Saline 1,000 ML 100 ML IV (06:29)
--- NOTE | 2018-09-26 06:31 | EKG12_ITS ---
Test Reason : Blood Pressure : / mmHG Vent. Rate : 078 BPM Atrial Rate : 065 BPM P-R Int : 000 ms QRS Dur : 160 ms QT Int : 474 ms P-R-T Axes : 000 -15 191 degrees QTc Int : 540 ms Atrial fibrillation with frequent ventricular-paced complexes Left bundle branch block Abnormal ECG Confirmed by PARIS ROGERS, DINORA ([id number]), content editor YANG BARR ([id number] on 10/03/2018 2:45:24 PM Referred By: CRISTOBAL Confirmed By:DINORA TOLEDO MD
[2018-09-26 06:33] LABS: Anion Gap 8 (5-15); BUN 20 mg/dL (7-18); BUN/Creat Ratio 13.5 RATIO (10-20); Calcium,Total 7.3 mg/dL (8.5-10.1); Chloride 105 mmol/L (98-107); Creatinine, Serum 1.48 mg/dL (0.70-1.30); EST Glomerular Filtration Rate 49 mL/min (>60); Est Glom Filt Rate - Afr Amer 59 mL/min (>60); Estimated Creatinine Clearance 38.46 ml/min; Glucose 152 mg/dL (74-106); Potassium 3.8 mmol/L (3.5-5.1); Sodium Level 138 mmol/L (136-145)
[2018-09-26 06:36] LABS: POSITIVE COUNT NO; POSITIVE DIFFERENTIAL NO; POSITIVE MORPHOLOGY NO
[2018-09-26] MEDS: Polyethylene Glycol 3350 17 GM PACKET PO (08:57)
[2018-09-26] MEDS: LINAGLIPTIN 5 MG TABLET PO (08:58)
[2018-09-26] MEDS: Insulin Lispro 100 UNIT/ML INSULN.PEN SC ×2 (08:58→12:06)
[2018-09-26] MEDS: Menthol/Lanolin/Calamine/Znox 113 GM Tube 1 APPLIC TOPICAL ×2 (08:59→14:23)
[2018-09-26] MEDS: Dofetilide 250 MCG Capsule PO (09:02)
[2018-09-26] MEDS: Isosorbide Mononitrate 30 MG Tablet PO (09:02)
[2018-09-26] MEDS: levETIRAcetam 750 MG Tablet PO (09:03)
[2018-09-26] MEDS: Heparin Injection (Vial) 5,000 UNIT/ML VIAL 5000 UNIT SC (09:08)
[2018-09-26 11:40] LABS: Bedside Glucose 160 mg/dL (70-110)
--- NOTE | 2018-09-26 11:51 | PCM.DC ---
- Discharge Diagnoses Current Active Problems: Current Active and Chronic Problems (Last Reviewed 09/24/18 @ 13:39 by Anthony Hyde MD) Epiploic appendagitis (Acute) CKD (chronic kidney disease) stage 4, GFR 15-29 ml/min (Chronic) Reason(s) for Visit for Discharge Instructions: Nausea, weakness You will use the following diet at home:: Calorie/Carbohydrate Controlled (specify 1200, 1400, etc), Cardiac Your food should be the consistency of: Regular Your liquids should be the consistency of: Regular/Thin Discharge Activity: Return to Normal Activity Additional Instructions: Take note of changes to your medications. You need to weigh yoursef everyday and let your doctor know if you gain more than 4 pounds in a couple of days. You will need repeat blood work in 3 days. Follow-up with your primary care doctor and [facility]. Continue to use your compression stockings. Allergies/Adverse Reactions: Allergies amiodarone Allergy (Verified 09/22/18 04:37) Other meperidine [From Demerol] Allergy (Verified 09/22/18 04:37) Low blood pressure spironolactone Allergy (Verified 09/22/18 04:37) Nausea simvastatin Adverse Reaction (Mild, Verified 09/22/18 04:37) Myalgias Medications to take at Discharge Nitroglycerin [Nitrostat] 0.4 mg SUBLINGUAL Q5M PRN 06/02/14 Ranolazine [Ranexa] 1,000 mg PO BID 06/02/14 Atorvastatin Calcium [Lipitor] 10 mg PO DAILY 08/20/14 Dofetilide 250 mcg PO BID 03/14/17 aspirin 81 mg tablet,delayed release 81 mg PO DAILY 11/12/17 bumetanide 1 mg tablet 1 mg PO BID 11/12/17 levothyroxine 100 mcg tablet 100 mcg PO DAILY tab 11/12/17 carvedilol 12.5 mg tablet 18.75 mg PO BID tab 11/14/17 clopidogrel 75 mg tablet 75 mg PO DAILY 11/14/17 Sitagliptin Phosphate [Januvia] 50 mg PO DAILY 01/18/18 clonazepam 1 mg tablet 1 mg PO BID PRN 08/30/18 isosorbide mononitrate ER 30 mg tablet,extended release 24 hr 30 mg PO DAILY 08/30/18 mexiletine 150 mg capsule 150 mg PO TID cap 08/30/18 potassium chloride ER 20 mEq tablet,extended release(part/cryst) 20 meq PO .3xweek tab 08/30/18 ropinirole 1 mg tablet 2 mg PO .COMPLEX tab 08/30/18 Menthol/Lanolin/Calamine/Znox [Calmoseptine Ointment] 1 applic TOPICAL 4X/DAY #1 tube 09/26/18 levETIRAcetam tablet [Keppra tablet] 750 mg PO BID #60 tablet 09/26/18 The following prescriptions were given: levETIRAcetam tablet [Keppra tablet] 750 mg PO BID #60 tablet Menthol/Lanolin/Calamine/Znox [Calmoseptine Ointment] 1 applic TOPICAL 4X/DAY #1 tube Orders to be completed after discharge: Basic Metabolic Profile (BMP) Time Frame: 4 Days, Location: Laboratory Primary Care Physician: Anabella Lomax MD [Primary Care Provider] - Please follow up with your Primary Care Physician in: within 2 weeks Test Results: Test results from this visit will be discussed in further detail at your follow-up appointment, if applicable. Please Follow Up With: Anthony Hyde MD When: as scheduled Please Follow Up With: Amando Hu MD When: within 2 weeks Proposed Discharge Date: 09/26/18
--- NOTE | 2018-09-26 12:02 | PCM.DC.SUM ---
Discharge Date and Diagnosis Date of Admission: 09/22/18 Date of Discharge: 09/26/18 - Primary Discharge Diagnosis Active and Suspected Problems (Last Reviewed 09/24/18 @ 13:39 by Anthony Hyde MD) Breakthrough seizure Hyponatremia, acute JASPER on CKD stage IV Acute Gastroenteritis, unclear etiology Constipation - Secondary Discharge Diagnosis Chronic Problems (Last Reviewed 09/24/18 @ 13:39 by Anthony Hyde MD) CKD (chronic kidney disease) stage 4, GFR 15-29 ml/min (Chronic) HLD (hyperlipidemia) (Chronic) Non-ST elevation (NSTEMI) myocardial infarction (Chronic) Angina pectoris (Chronic) XOCHITL (obstructive sleep apnea) (Chronic) Diabetes mellitus type 2, noninsulin dependent (Chronic) Long-term use of high-risk medication (Chronic) Chronic renal failure (Chronic) Cardiac murmur (Chronic) Atherosclerotic heart disease of [place] coronary artery without angina pectoris (Chronic) CABG 1988; Reoperation CABG x3 SVG to LAD, SVG to Rt PDA, Radial artery to OM-2 10/08/02; VT ablation @[facility] 01/03/17 [facility] 03/10/2016 Ventricular tachycardia (paroxysmal) (Chronic) ICD (implantable cardioverter-defibrillator) in place (Chronic ~11/2001) Implant 12/10/2001 ICD replacement 06/10/2009, 06/05/2014, Systolic CHF, chronic (Chronic) Cardiomyopathy, ischemic (Chronic) Type II diabetes mellitus, uncontrolled (Chronic) Esophageal reflux (Chronic) HTN (hypertension) (Chronic) Hypothyroidism (Chronic) Hospital Course and Treatment Imaging Results: Clinical Impression(s) from Imaging Studies Abdomen/Pelvis CT 09/22/18 04:57 IMPRESSION: No acute appendicitis or diverticulitis.. A 1 cm left lower quadrant epiploic appendagitis. Mild fecal stasis. Small benign looking adrenal densities Electronically Signed: Vernon Coronel MD at 5:51 EST Tel , Service support , Brain CT 09/23/18 15:23 IMPRESSION: Chronic involutional changes of the brain. No definite acute abnormality.. Electronically Signed: Raymond Dawson MD at 16:59 EST , Service support , Neurology Operations: None Procedures: None Summary of Care Provided: The patient is a 78 year old M with multiple comorbidities including CAD status post CABG x 2, type II DM, hypertension, status post pacemaker, CKD stage IV, history of subdural hematoma with seizures who comes seen with complaints of nausea and vomiting as well as abdominal pain. Patient was said to be lethargic prior to admission. Patient was started on IV fluids, his home Bumex and metolazone were held. His admitting creatinine was 2.23. On the second day of admission, a rapid response was called as patient was unresponsive and was noted to have jerking movements of his upper extremities. He was given 1 dose of IV Ativan and loaded with Keppra. Patient was seen by neurology and Keppra increased to [address] twice daily[address] scan of the head was negative for any acute abnormalities. Patient continued to remain stable, his nausea vomiting abdominal pain which he presented with on admission was resolved. He was noted to have hyponatremia on admission and that also resolved with IV fluids. Patient was resumed on his home Bumex but metolazone was held. He was asked to do a BMP in 3 days. He will be followed by home health. Strict CHF education was given. He will need to follow-up with his primary care doctor and cardiology closely to prevent CHF exacerbation. He knows to watch his fluid, weighing himself every day and watch his salt intake. Subjective: On the day of discharge, patient felt well. Has slight dyspnea on exertion. States this is not new. Denied any active chest pain. He had mild chest discomfort earlier at [facility]. No dizziness or palpitation. Discussed the plan of care during this hospitalization in depth with the . - Physical Exam General: Alert, Oriented x3, Cooperative, No apparent distress HEENT: Atraumatic, PERRLA, EOMI, Normocephalic Oral: Moist Mucosa Neck: Supple, No JVD, Negative Carotid Bruits Lungs: Normal air movement, Diminished - Especially the lung bases Cardiovascular: Regular rate, Regular Rhythm, Normal S1, Normal S2, No murmurs Abdomen: Bowel Sounds Present, Soft, Non Tender, Non-Distended, No Hepato-splenomegaly Extremities: Edema - Bilateral leg edema +3, chronic venous stasis dermatitis Skin: No rashes, No breakdown Musculoskeletal: No Tenderness to Palpation of Joints or Extremities Lymphatic: No Cervical, Supraclavicular, or Inguinal Adenopathy Neurological: Cranial nerves II-XII grossly intact, Neuro grossly intact Psych/Mental Status: Normal Affect, Appropriate Vital Signs Temp Pulse Resp BP Pulse Ox 98.3 F 80 18 109/66 95 09/26/18 08:49 09/26/18 11:09 09/26/18 08:49 09/26/18 08:49 09/26/18 08:49 Oxygen Flow Rate (L/min) 2 Oxygen Delivery Method Room Air Weight: 84.2 kg Body Mass Index (BMI) 29.0 Finger Stick Blood Glucose 249 Intake and Output for Last 24 Hours 09/24/18 09/25/18 09/26/18 23:59 23:59 23:59 Intake Total 3456 / 3456 3980 / 3980 1718 / 1718 Output Total 880 / 880 752 / 752 550 / 550 Balance 2576 / 2576 3228 / 3228 1168 / 1168 Laboratory Tests Past 24 Hrs 09/26/18 09/26/18 09/26/18 02:52 05:50 05:50 WBC 6.6 RBC 3.15 L Hgb 10.6 L Hct 32.0 L MCV 101.6 H MCH 33.7 H MCHC 33.1 RDW 13.6 RDW Differential 48.4 H Plt Count 103 L MPV 10.4 Immature Gran % (Auto) 0.500 Neut % (Auto) 66.1 Lymph % (Auto) 21.4 [place] % (Auto) 7.7 Eos % (Auto) 3.8 Baso % (Auto) 0.5 Absolute Neuts (auto) 4.4 Absolute Lymphs (auto) 1.41 Total Counted Not Reportable Sodium 138 Potassium 3.8 Chloride 105 Carbon Dioxide 25.0 Anion Gap 8 BUN 20 H Creatinine 1.48 H Estim Creat Clear Calc 38.46 Est GFR (MDRD) Af Amer 59 L Est GFR (MDRD) Non-Af 49 L BUN/Creatinine Ratio 13.5 Glucose 152 H Calcium 7.3 L Urine Opiates Screen NEGATIVE Urine Methadone Screen NEGATIVE Ur Barbiturates Screen NEGATIVE Ur Phencyclidine Scrn NEGATIVE Ur Amphetamines Screen NEGATIVE U Methamphetamin-MDMA NEGATIVE U Benzodiazepines Scrn NEGATIVE Urine Cocaine Screen NEGATIVE U Cannabinoids Screen NEGATIVE Ur Drug Screen Comment POC Glucose 09/26/18 09/25/18 09/25/18 11:34 21:34 16:12 POC Glucose 160 H 174 H 178 H Discharge Diet: Low fat/ Low Cholesterol, 2000 mg Sodium Diet, Carb Control Diet Discharge Activity: Return to Normal Activity Home Medications: Medications to take at Discharge Nitroglycerin [Nitrostat] 0.4 mg SUBLINGUAL Q5M PRN 06/02/14 Ranolazine [Ranexa] 1,000 mg PO BID 06/02/14 Atorvastatin Calcium [Lipitor] 10 mg PO DAILY 08/20/14 Dofetilide 250 mcg PO BID 03/14/17 aspirin 81 mg tablet,delayed release 81 mg PO DAILY 11/12/17 bumetanide 1 mg tablet 1 mg PO BID 11/12/17 levothyroxine 100 mcg tablet 100 mcg PO DAILY tab 11/12/17 carvedilol 12.5 mg tablet 18.75 mg PO BID tab 11/14/17 clopidogrel 75 mg tablet 75 mg PO DAILY 11/14/17 Sitagliptin Phosphate [Januvia] 50 mg PO DAILY 01/18/18 clonazepam 1 mg tablet 1 mg PO BID PRN 08/30/18 isosorbide mononitrate ER 30 mg tablet,extended release 24 hr 30 mg PO DAILY 08/30/18 mexiletine 150 mg capsule 150 mg PO TID cap 08/30/18 potassium chloride ER 20 mEq tablet,extended release(part/cryst) 20 meq PO .3xweek tab 08/30/18 ropinirole 1 mg tablet 2 mg PO .COMPLEX tab 08/30/18 Menthol/Lanolin/Calamine/Znox [Calmoseptine Ointment] 1 applic TOPICAL 4X/DAY #1 tube 09/26/18 levETIRAcetam tablet [Keppra tablet] 750 mg PO BID #60 tablet 09/26/18 Following Prescrptions Were Given to Patient: levETIRAcetam tablet [Keppra tablet] 750 mg PO BID #60 tablet Menthol/Lanolin/Calamine/Znox [Calmoseptine Ointment] 1 applic TOPICAL 4X/DAY #1 tube Other Amb Orders: Basic Metabolic Profile (BMP) Time Frame: 4 Days, Location: Laboratory Primary Care Physician: Anabella Lomax MD [Primary Care Provider] - Please follow up with your Primary Care Physician in: within 2 weeks Please Follow Up With: Anthony Hyde MD When: as scheduled Please Follow Up With: Amando Hu MD When: within 2 weeks Disposition: Home with Home Health Minutes spent on discharge:: 45 Patient Condition:: Stable Medical Necessity - Tobacco Use Smoking Status: Former smoker Tobacco Use: Non-smoker Meaningful Use Info Meaningful Use Diagnoses (Choose all that apply): None applicable Code Visit Inpatient E&M: 30822 Disch Hosp
--- NOTE | 2018-09-27 17:42 | CASEMGMT ---
RN CM Discharge Follow-up Phone Call: KANWAL: Ashley Strata: 3 Call Date: 09/27/18 Discharge Date: 09/26/18 Time of Call: 1872 Duration: 0 ? Admitting Diagnosis: Breakthrough seizure, gastroenteritis, JASPER, hyponatremia This RN RADHA attempted to contact pt via telephone for discharge follow-up. Voicemail received and message left requesting a return call if pt has questions or concerns. BEKA Barrera
== END 2018-09-26 14:58 | disposition home health service (06) | DRG 101 ==
LOC: ED 06:39 → MS3 07:18 → PCU 09-23 18:26
PROVIDERS: Hospitalist; Internal Medicine; Student in an Organized Health Care Education/Training Program; Admitting Provider Family Medicine; Emergency Provider Emergency Medicine; Family Provider Internal Medicine; PCP Internal Medicine; Visit Provider Internal Medicine
DX: G40.909 Epilepsy, unspecified, not intractable, without status epilepticus (principal); E87.1 Hypo-osmolality and hyponatremia; N17.9 Acute kidney failure, unspecified; N18.4 Chronic kidney disease, stage 4 (severe); I50.22 Chronic systolic (congestive) heart failure; I13.0 Hypertensive heart and chronic kidney disease with heart failure and stage 1 through stage 4 chronic kidney disease, or unspecified chronic kidney disease; K59.00 Constipation, unspecified; I25.10 Atherosclerotic heart disease of native coronary artery without angina pectoris; Z95.810 Presence of automatic (implantable) cardiac defibrillator; K63.89 Other specified diseases of intestine; E03.9 Hypothyroidism, unspecified; K52.9 Noninfective gastroenteritis and colitis, unspecified; G47.33 Obstructive sleep apnea (adult) (pediatric); E78.5 Hyperlipidemia, unspecified; Z79.84 Long term (current) use of oral hypoglycemic drugs; E11.22 Type 2 diabetes mellitus with diabetic chronic kidney disease
CPT/HCPCS: 36415; 70450; 74176; 80048; 80053; 80307; 82274; 82962; 83690; 83735; 85025; 92526; 93005; 97161; 97165; 97168; 97530; 97802; 99285; J7030; A4216; J2405

== ENCOUNTER 2018-09-30 07:04 | Observation (INO) | payer MEDICARE, SELFPAY ==
[2018-09-22 08:09] VITALS: BMI 29.0
[2018-09-30] VITALS (14 sets, daily range): BP systolic 93–138; BP diastolic 64–88; PULSE 65–104; RESP 16–27; TEMP 36.6–36.9; O2SAT 94–99; BMI 33.0; BMI 29.9
--- NOTE | 2018-09-30 07:38 | EKG12_ITS ---
Test Reason : SYNCOPE Blood Pressure : / mmHG Vent. Rate : 109 BPM Atrial Rate : 071 BPM P-R Int : 000 ms QRS Dur : 130 ms QT Int : 424 ms P-R-T Axes : 000 -17 164 degrees QTc Int : 570 ms Wide QRS rhythm with frequent ventricular-paced complexes Left bundle branch block Abnormal ECG Confirmed by PARIS ROGERS, DINORA ([id number]), make up editor YANG BARR ([id number]) on 10/03/2018 1:42:46 PM Referred By: SALLY Confirmed By:DINORA TOLEDO MD
--- NOTE | 2018-09-30 07:38 | RAD_ITS ---
STUDY: X-RAY CHEST REASON FOR EXAM: Male, 78 years old. Chest pain and syncope. TECHNIQUE: Single AP portable view of the chest. COMPARISON: January 18, 2018. FINDINGS: Patient has a sternotomy. Left-sided cardiac pacemaker is present. The lungs are expanded. There is no evidence for airspace consolidation, or pneumothorax. There is no demonstrated pleural abnormality. There is moderate cardiac enlargement. Normal mediastinum and jessy. There is prominence of the pulmonary hilar arteries with peripheral pulmonary vascular congestion. There is atherosclerotic calcification of the aortic arch with tortuosity. There are diffuse degenerative changes of the visualized thoracic spine. Normal visualized ribs, clavicles, and shoulders. There is no demonstrated abnormality of the visualized soft tissue structures of the upper abdomen. RAD/Chest 1 View (Portable) IMPRESSION: Moderate cardiomegaly and postoperative changes appear unchanged since the previous study. Electronically Signed: Nereyda Winter MD at 8:11 EST , Service support ,
--- NOTE | 2018-09-30 07:44 | ED.VISSUMM ---
- ER Visit Summary Date of Service: 09/30/18 Chief Complaint: [] Whole-body weakness trouble ambulating around the house History of Present Illness: The patient is a 78 M [] history of A. fib cardiac defibrillator, apparent CABG, who has had whole body weakness for over a week he was recently been to the hospital per the , discharged on he persisted having whole body weakness he went to bed with complete whole body weakness, he was able to get up this morning go to the bathroom or once he got to the bathroom he could not get back to the room. The states for a brief period of time she seems slightly unresponsive to her, there is no seizure activity no incontinence he simply could not get up and walk back to the room she called paramedics he could not be assisted by EMS he was brought to the hospital He denies fever cough chest pain abdominal pain numbness wounds or paresthesias but just complains of diffuse whole body weakness primarily when he tries to ambulate. He has had no vomiting normal bowel bladder habits no new meds Physical Examination: [] His blood pressure is 180/80 his heart rate is irregular he has paced rhythm part of the time he has a regularity other times his rate is about 100, General, no distress resting comfortably HEENT is generally unremarkable The neck is supple no adenopathy Cardiovascular, irregular as above Lungs, clear bilateral Abdomen, soft nontender Extremities, no clubbing cyanosis or edema Neurologic, awake alert answering questions appropriately moving all 4 extremities, however he cannot stand and bear weight he is able to move all 4 extremities his speech is clear and understandable his cranial nerves are normal the reports that his mental status baseline and his NIH is about 0 Whole body generalized weakness has persisted given all the above screening labs are obtained, his EKG shows a regular rhythm his monitor shows A. fib The patient's lab studies are all generally unremarkable please see those reports, spoke with his primary care providers indicate he is simply not progressing with outpatient management believe he will require admission, spoke with the spoke with the hospitalist service to by to see him shortly for further management he remains hemodynamically stable in the department neurologically normal awake alert answering questions Test Results: [] Emergency Department Course and Treatment: [] Treatment Plan: [] Disposition: [] Stable Impression: [] Generalized weakness unable to walk, A. fib with intermittent RVR, cardiomyopathy with cardiac defibrillator This note was generated with Dragon dictation software. It may contain incorrect words, spelling, and punctuation that were not noted in review of the chart prior to signing ED Disposition - Plan for ED Patient: Chief Complaint: Syncope Referrals: Anabella Lomax MD [Primary Care Provider] -
[2018-09-30 08:00] LABS: Absolute Neutrophil Count 4.9 X10^3/uL (2.0-7.7); Basophil# 0.02 X10^3/uL; Basophil% 0.3 % (0-1); Eosinophil# 0.22 X10^3/uL; Eosinophils% 3.1 % (0-5); Hematocrit 36.7 % (40-54); Hemoglobin 12.3 g/dl (13.0-16.5); Lymphocyte % 19.4 % (19-41); Mean Corp Hgb Conc 33.5 g/gl (32-36); Mean Corpuscular Hgb 33.7 pg (27.0-32.0); Mean Corpuscular Volume 100.5 fL (80-94); Mean Platelet Vol. 10.3 fl (6.2-12.0); Monocyte# 0.66 X10^3/uL; Monocyte% 9.2 % (0-10); Neutrophil # 4.87 X10^3/uL (2.7-7.7); Neutrophil % 67.4 % (47-70); Platelet Count 127 K/mm3 (150-450); RBC Distribution Width CV 14.4 % (11.6-14.6); RBC Distribution Width SD 51.1 fl (35.1-43.9); Red Blood Count 3.65 M/mm3 (4.6-6.2); White Blood Count 7.2 K/mm3 (4.4-11.0)
[2018-09-30 08:01] LABS: Anion Gap 12 (5-15); BUN 18 mg/dL (7-18); BUN/Creat Ratio 10.7 RATIO (10-20); Calcium,Total 8.4 mg/dL (8.5-10.1); Chloride 101 mmol/L (98-107); Creatinine, Serum 1.69 mg/dL (0.70-1.30); EST Glomerular Filtration Rate 42 mL/min (>60); Est Glom Filt Rate - Afr Amer 51 mL/min (>60); Estimated Creatinine Clearance 33.68 ml/min; Glucose 181 mg/dL (74-106); Potassium 4.6 mmol/L (3.5-5.1); Sodium Level 135 mmol/L (136-145)
[2018-09-30 08:22] LABS: POSITIVE COUNT NO; POSITIVE DIFFERENTIAL NO; POSITIVE MORPHOLOGY NO
[2018-09-30 09:12] LABS: Bacteria 0 SEEN /hpf (None Seen); Mucous, Urine 0 SEEN /hpf (<or=2+); Red Blood Cells-Urine 0 SEEN /hpf (0-5)
[2018-09-30 09:23] LABS: Color, Urine Yellow (Yellow); Glucose, Dipstick Normal (Normal); Ketone-Dipstick Negative (Negative); Leukocyte Esterase-Dipstick 25 /ul (Negative); Nitrite-Dipstick Negative (Negative); Occult Blood-Urine Negative /ul (Negative); Protein-Dipstick 30 mg/dl (Negative); Specific Gravity, Urine 1.015 (1.002-1.030); Urine Bilirubin Dipstick Negative (Negative); Urine Clarity Clear (Clear); Urine Urobilinogen Normal (Normal)
[2018-09-30 09:30] LABS: Squamous Epithelial Cells - UA 0-5 SEEN /hpf (0-5); White Blood Cells 0-5 SEEN /hpf (0-5)
--- NOTE | 2018-09-30 10:04 | NURSING ---
DR JON MONTES
--- NOTE | 2018-09-30 10:41 | NURSING ---
DR WEBB IN ER
[2018-09-30 11:23] LABS: BNP,B-Type NATRIURETIC PEPTIDE 665.6 pg/mL (0-100)
[2018-09-30] MEDS: Carvedilol 3.125 MG TABLET PO (14:17)
[2018-09-30] MEDS: Heparin Injection (Vial) 5,000 UNIT/ML VIAL 5000 UNIT SC ×2 (15:28→22:29)
[2018-09-30] MEDS: Mexiletine 150 MG Capsule PO ×2 (15:31→22:27)
--- NOTE | 2018-09-30 17:11 | NURSING ---
Dr. Lomax phones to speak with hospitalist. Informed physician to call back and page Dr. Friedman.
[2018-09-30 18:05] LABS: Bedside Glucose 236 mg/dL (70-110)
[2018-09-30] MEDS: Insulin Lispro 100 UNIT/ML INSULN.PEN SC ×2 (18:07→22:32)
--- NOTE | 2018-09-30 19:09 | PCM.HP.STD ---
Problem List (1) Generalized weakness Status: Acute (2) Episode of syncope Status: Acute Qualifiers: Syncope type: unspecified Qualified Code(s): R55 - Syncope and collapse History of Present Illness Date of Admission: 09/30/18 Chief Complaint: Presyncopal episode, generalized weakness The patient is a 78 year old M who was seen in the emergency room at [facility] after being brought in at the direction of his due to a brief episode of syncope while laying down at his home this morning, also states patient has been progressively weak since he was discharged from the hospital here last week. Patient's denies seeing any seizure activity-patient has a history of seizure disorder and is on medication. Patient denies any fever, chills, shortness of breath, chest pain, or focal weakness. Workup in the emergency room included labs which showed a normal white blood cell count, hemoglobin was slightly low at 12.3, creatinine was elevated at 1.69 which appears to be near the patient's baseline, patient's glucose was 181, beta natruretic peptide was elevated at 665. Patient's urinalysis was unremarkable. Chest x-ray was performed and showed moderate cardiomegaly and postoperative changes which appear to be unchanged since his previous chest x-ray on 01/18/18. Patient's room air pulse ox was 98%. 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 Patient will be placed in observation status on PCU for generalized weakness, it is unclear what caused the patient's brief syncopal episode at home-patient's stated this episode of unresponsiveness only lasted for less than a minute. Will be seen by PT and OT, he will be monitored on telemetry, he may need his pacemaker interrogated. Past Medical History Past Medical History (Chronic Problems): Chronic Problems (Last Reviewed 09/24/18 @ 13:39 by Anthony Hyde MD) CKD (chronic kidney disease) stage 4, GFR 15-29 ml/min (Chronic) HLD (hyperlipidemia) (Chronic) Non-ST elevation (NSTEMI) myocardial infarction (Chronic) Angina pectoris (Chronic) CAD (coronary artery disease) (Chronic) Edema (Chronic) Dyspnea (Chronic) Renal disease (Chronic) Fatigue (Chronic) XOCHITL (obstructive sleep apnea) (Chronic) Diabetes mellitus type 2, noninsulin dependent (Chronic) Old myocardial infarction (Chronic) Long-term use of high-risk medication (Chronic) Chronic renal failure (Chronic) Cardiac murmur (Chronic) Hypokalemia (Chronic) Atherosclerotic heart disease of [place] coronary artery without angina pectoris (Chronic) CABG 1988; Reoperation CABG x3 SVG to LAD, SVG to Rt PDA, Radial artery to OM-2 10/08/02; VT ablation @[facility] 01/03/17 [facility] 03/10/2016 Ventricular tachycardia (paroxysmal) (Chronic) ICD (implantable cardioverter-defibrillator) in place (Chronic ~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) Implant 12/10/2001 ICD replacement 06/10/2009, 06/05/2014, Systolic CHF, chronic (Chronic) Cardiomyopathy, ischemic (Chronic) CKD (chronic kidney disease), stage II (Chronic) Type II diabetes mellitus, uncontrolled (Chronic) Esophageal reflux (Chronic) HLD (hyperlipidemia) (Chronic) HTN (hypertension) (Chronic) Hypothyroidism (Chronic) Sleep apnea (Chronic) Medical History: Medical History (Last Reviewed 09/24/18 @ 13:39 by Anthony Hyde MD) HLD (hyperlipidemia) (Chronic) E78.5 Non-ST elevation (NSTEMI) myocardial infarction (Chronic) I21.4 Angina pectoris (Chronic) I20.9 CAD (coronary artery disease) (Chronic) I25.10 Edema (Chronic) R60.9 Dyspnea (Chronic) R06.00 Renal disease (Chronic) N28.9 Fatigue (Chronic) R53.83 XOCHITL (obstructive sleep apnea) (Chronic) G47.33 Diabetes mellitus type 2, noninsulin dependent (Chronic) E11.9 Old myocardial infarction (Chronic) I25.2 Long-term use of high-risk medication (Chronic) Z79.899 Chronic renal failure (Chronic) N18.9 Cardiac murmur (Chronic) R01.1 Hypokalemia (Chronic) E87.6 Atherosclerotic heart disease of [place] coronary artery without angina pectoris (Chronic) I25.10 CABG 1988; Reoperation CABG x3 SVG to LAD, SVG to Rt PDA, Radial artery to OM-2 10/08/02; VT ablation @[facility] 01/03/17 [facility] 03/10/2016 Ventricular tachycardia (paroxysmal) (Chronic) I47.2 ICD (implantable cardioverter-defibrillator) in place (Chronic) Onset Date: ~11/2001 Z95.810 Implant 12/10/2001 ICD replacement 06/10/2009, 06/05/2014, Systolic CHF, chronic (Chronic) I50.22 Cardiomyopathy, ischemic (Chronic) I25.5 Subdural hematoma (Resolved) I62.00 CAD (coronary artery disease) (Inactive) I25.10 CHF (congestive heart failure) (Inactive) I50.9 Visual hallucination (Inactive) R44.1 Allergies amiodarone Allergy (Verified 09/30/18 07:14) Other meperidine [From Demerol] Allergy (Verified 09/30/18 07:14) Low blood pressure spironolactone Allergy (Verified 09/30/18 07:14) Nausea simvastatin Adverse Reaction (Mild, Verified 09/30/18 07:14) Myalgias Home Medications: Ambulatory Orders Medication Instructions Recorded Nitroglycerin [Nitrostat] 0.4 mg SUBLINGUAL Q5M PRN 06/02/14 Ranolazine [Ranexa] 1,000 mg PO BID 06/02/14 Atorvastatin Calcium [Lipitor] 10 mg PO QHS 08/20/14 Dofetilide 250 mcg PO BID 03/14/17 aspirin 81 mg tablet,delayed 81 mg PO DAILY 11/12/17 release bumetanide 1 mg tablet 1 mg PO BID 11/12/17 levothyroxine 100 mcg tablet 100 mcg PO DAILY@0600 tab 11/12/17 carvedilol 12.5 mg tablet 18.75 mg PO BID tab 11/14/17 clopidogrel 75 mg tablet 75 mg PO DAILY 11/14/17 Sitagliptin Phosphate [Januvia] 50 mg PO DAILY 01/18/18 clonazepam 1 mg tablet 1 mg PO BID PRN 08/30/18 isosorbide mononitrate ER 30 mg 30 mg PO DAILY 08/30/18 tablet,extended release 24 hr mexiletine 150 mg capsule 150 mg PO TID cap 08/30/18 potassium chloride ER 20 mEq 20 meq PO DAILY tab 08/30/18 tablet,extended release(part/cryst) ropinirole 1 mg tablet 2 mg PO .COMPLEX tab 08/30/18 Menthol/Lanolin/Calamine/Znox 1 applic TOPICAL 4X/DAY #1 tube 09/26/18 [Calmoseptine Ointment] levETIRAcetam tablet [Keppra 750 mg PO BID #60 tablet 09/26/18 tablet] Escitalopram Oxalate [Lexapro] 5 mg PO DAILY 09/30/18 Surgical History: Surgical History (Last Reviewed 09/24/18 @ 13:40 by Anthony Hyde MD) Aortocoronary bypass status (Resolved) Z95.1 CABG 1988; Reoperation CABG x3 SVG to LAD, SVG to Rt PDA, Radial artery to OM-2 10/08/02; VT ablation @[facility] 01/03/17 H/O prior ablation treatment Onset Date: ~01/03/17 Z98.890 VT Ablation @ [facility] History of craniotomy Onset Date: ~06/2017 Z98.890 History of herniorrhaphy Z98.890, Z87.19 History of hip replacement Z96.649 RT History of knee surgery Z98.890 Rt S/P CABG (coronary artery bypass graft) (Inactive) Z95.1 Surgical History: cholecystectomy, coronary bypass surgery, - - ICD placement, CABG x 3, Cholecystectomy, RTHR, RTKR, Cardiac ablation, Craniotomy s/p SDH w/ fall. Psychiatric History: Anxiety, Depression Lives: Spouse/ Significant Other Smoking Status: Former smoker Tobacco Use: Non-smoker Alcohol: None Drugs: None - *Family History Paternal Family History: Family History (Last Reviewed 09/24/18 @ 13:40 by Anthony Hyde MD) Father CAD (coronary artery disease) Hypertension Myocardial infarction CHF (congestive heart failure) Mother CAD (coronary artery disease) Myocardial infarction Hypothyroid High cholesterol History Items: Diabetes, Heart Disease, Hypertension Maternal Family History: Family History (Last Reviewed 09/24/18 @ 13:40 by Anthony Hyde MD) Father CAD (coronary artery disease) Hypertension Myocardial infarction CHF (congestive heart failure) Mother CAD (coronary artery disease) Myocardial infarction Hypothyroid High cholesterol History Items: High Cholesterol, Heart Disease, Hypertension Review of Systems Constitutional: Reports: Weakness, Fatigue. Denies: Anorexia, Chills, Fever, Night Sweats, Malaise, Weight Change Eyes: Denies: Blurred vision, Cataracts, Conjunctivae Inflammation, Double vision, Drainage HEENT: Denies: Difficulty Hearing, Difficulty Swallowing, Dysphasia, Ear Pain, Eye Pain, Hearing Changes, Nasal bleeding, Nasal Congestion, Post Nasal Drip Cardiovascular: Reports: Syncope - Brief episode of syncope according to the today at his home, patient has no recollection of event. Denies: Chest Pain, Claudication, Chest Pressure, Chest Tightness, Edema, Heaviness, Palpitations Respiratory: Denies: Cough, Hemoptysis, Pleuritic Pain, Shortness of Breath, Shortness of breath at rest, Shortness of breath upon exertion Gastrointestinal: Denies: Abdominal Pain, Constipation, Diarrhea, Hematemesis, Hematochezia, Nausea, Melena, Vomiting Genitourinary: Denies: Dysuria, Frequency, Hematuria, Hesitancy, Incontinence, Nocturia, Urgency Musculoskeletal: Denies: Back Pain, Foot Pain, Hand Pain, Joint Pain, Joint stiffness, Joint swelling, Joint Tenderness, Leg Pain Skin: Denies: Dryness, Jaundice, Pruritis, Rash Neurological: Reports: Seizures - History of seizures. Denies: Blurred vision, Double vision, Change in Speech, Slurred speech, Difficulty swallowing, Focal weakness, Headaches, Incoordination, Numbness, Tingling Psychiatric: Denies: Anxiety, Depression, Homicidal Ideations, Suicidal Ideations Endocrine: Denies: Change in Body Habitus, Heat/ Cold Intolerance, Polydipsia, Polyuria Hematologic/ Lymphatic: Denies: Adenopathy, Anemia, Easy Bruising, Easy Bleeding, Petechiae, Purpura VTE Information - Inpt Only VTE Present on Admission: No VTE Mechan Device Prophylaxis: None VTE Pharm Prophylaxis ordered?: Yes Patient Problems: Active and Suspected Problems (Last Reviewed 09/24/18 @ 13:39 by Anthony Hyde MD) Generalized weakness (Acute) Episode of syncope (Acute) - Physical Exam General: Alert, Oriented x3, Cooperative, No apparent distress, Lethargic, - - Patient appears weak and unwell HEENT: Atraumatic, PERRLA, EOMI, Normocephalic Oral: Dry Mucosa Neck: Supple, No JVD, Negative Carotid Bruits, No Nuchal Rigidity, Trachea Midline, Thyroid Normal Size and Texture Lungs: Clear to auscultation, Normal air movement, No rhonchi, No wheeze, No rales Cardiovascular: No murmurs, PMI Normal, Irregular Rate, No rub noted Abdomen: Bowel Sounds Present, Soft, Non Tender, Non-Distended, No hernias noted Extremities: No clubbing, No cyanosis, Capillary Refill Less than 3 Seconds Skin: No rashes, No breakdown Musculoskeletal: No Tenderness to Palpation of Joints or Extremities Neurological: Cranial nerves II-XII grossly intact, Neuro grossly intact, Sensory exam intact to light touch and pain Psych/Mental Status: Appropriate, Flat Affect, Alert and oriented to time, place, person, mood and affect Vital Signs Temp Pulse Resp BP Pulse Ox 98.4 F 98 17 132/82 H 99 09/30/18 18:39 09/30/18 18:39 09/30/18 18:39 09/30/18 18:39 09/30/18 18:39 Oxygen Flow Rate (L/min) 2 Oxygen Delivery Method Nasal Cannula Weight: 86.9 kg Body Mass Index (BMI) 29.9 Finger Stick Blood Glucose 249 Intake and Output for Last 24 Hours 09/28/18 09/29/18 09/30/18 23:59 23:59 23:59 Intake Total 240 / 240 Output Total 100 / 100 Balance 140 / 140 Laboratory Tests Past 24 Hrs 09/30/18 09/30/18 09/30/18 07:00 07:13 07:13 WBC 7.2 RBC 3.65 L Hgb 12.3 L Hct 36.7 L MCV 100.5 H MCH 33.7 H MCHC 33.5 RDW 14.4 RDW Differential 51.1 H Plt Count 127 L MPV 10.3 Immature Gran % (Auto) 0.600 Neut % (Auto) 67.4 Lymph % (Auto) 19.4 Ferry % (Auto) 9.2 Eos % (Auto) 3.1 Baso % (Auto) 0.3 Absolute Neuts (auto) 4.9 Absolute Lymphs (auto) 1.40 Total Counted Not Reportable Sodium 135 L Potassium 4.6 Chloride 101 Carbon Dioxide 22.0 Anion Gap 12 BUN 18 Creatinine 1.69 H Estim Creat Clear Calc 33.68 Est GFR (MDRD) Af Amer 51 L Est GFR (MDRD) Non-Af 42 L BUN/Creatinine Ratio 10.7 Glucose 181 H Calcium 8.4 L Troponin I 0.030 B-Natriuretic Peptide Urine Color Yellow Urine Clarity Clear Urine pH 5.0 Ur Specific Emblem 1.015 Urine Protein 30 H Urine Glucose (UA) Normal Urine Ketones Negative Urine Occult Blood Negative Urine Nitrite Negative Urine Bilirubin Negative Urine Urobilinogen Normal Ur Leukocyte Esterase 25 H Urine RBC 0 SEEN Urine WBC 0-5 SEEN Ur Squamous Epith Cells 0-5 SEEN Urine Bacteria 0 SEEN Urine Mucus 0 SEEN 09/30/18 07:13 WBC RBC Hgb Hct MCV MCH MCHC RDW RDW Differential Plt Count MPV Immature Gran % (Auto) Neut % (Auto) Lymph % (Auto) Ferry % (Auto) Eos % (Auto) Baso % (Auto) Absolute Neuts (auto) Absolute Lymphs (auto) Total Counted Sodium Potassium Chloride Carbon Dioxide Anion Gap BUN Creatinine Estim Creat Clear Calc Est GFR (MDRD) Af Amer Est GFR (MDRD) Non-Af BUN/Creatinine Ratio Glucose Calcium Troponin I B-Natriuretic Peptide 665.6 H Urine Color Urine Clarity Urine pH Ur Specific Emblem Urine Protein Urine Glucose (UA) Urine Ketones Urine Occult Blood Urine Nitrite Urine Bilirubin Urine Urobilinogen Ur Leukocyte Esterase Urine RBC Urine WBC Ur Squamous Epith Cells Urine Bacteria Urine Mucus POC Glucose 09/30/18 17:59 POC Glucose 236 H Assessment/Plan All Active Problems (Last Reviewed 09/24/18 @ 13:39 by Anthony Hyde MD) Epiploic appendagitis (Acute) Generalized weakness (Acute) Episode of syncope (Acute) Aortocoronary bypass status (Resolved) Subdural hematoma (Resolved) #1 generalized weakness-probably secondary to underlying ischemic cardiomyopathy and generalized debility, patient will be seen by PT and OT, he will most certainly need short-term placement in a [facility] facility for strengthening #2 presyncopal episode at his home-etiology unclear, possibly secondary to orthostatic hypotension versus cardiac arrhythmia, patient's pacemaker will be interrogated #3 ischemic cardiomyopathy #4 type 2 diabetes-blood sugars will be monitored, sliding scale insulin will be used #5 chronic kidney disease stage III secondary to type 2 diabetes #6 chronic systolic congestive heart failure-patient does not appear to be in acute heart failure at this time, patient's medications will be continued #7 seizure disorder-patient will continue on his home medications #8 obstructive sleep apnea-patient will use his own CPAP machine in the hospital #9 hyperlipidemia #10 atherosclerotic heart disease #11 paroxysmal atrial fibrillation-patient is not a candidate for anticoagulation due to his fall risk and generalized debility #12 hypothyroidism Code Visit OBSV E&M: [id number] Initial observation care L3
[2018-09-30] MEDS: Pramipexole Di-HCl 1 MG Tablet 2 MG PO (22:24)
[2018-09-30] MEDS: Dofetilide 250 MCG Capsule PO (22:26)
[2018-09-30] MEDS: Carvedilol 25 MG Tablet PO (22:26)
[2018-09-30] MEDS: Ranolazine 500 MG Tablet 1000 MG PO (22:26)
[2018-09-30] MEDS: Bumetanide 0.5 MG Tablet 1 MG PO (22:26)
[2018-09-30] MEDS: levETIRAcetam 750 MG Tablet PO (22:28)
[2018-09-30] MEDS: Atorvastatin Calcium 10 MG Tablet PO (22:31)
[2018-09-30 23:31] LABS: Bedside Glucose 199 mg/dL (70-110)
[2018-10-01] VITALS (11 sets, daily range): BP systolic 94–113; BP diastolic 58–80; PULSE 88–99; RESP 14–20; TEMP 36.4–36.8; O2SAT 94–98
[2018-10-01] MEDS: Pramipexole Di-HCl 1 MG Tablet PO ×2 (00:15→22:43)
[2018-10-01] MEDS: Mexiletine 150 MG Capsule PO ×3 (05:27→21:41)
[2018-10-01] MEDS: Heparin Injection (Vial) 5,000 UNIT/ML VIAL 5000 UNIT SC ×3 (05:27→21:41)
[2018-10-01] MEDS: Levothyroxine 100 MCG Tablet PO (05:27)
[2018-10-01 06:20] LABS: Anion Gap 11 (5-15); BUN 20 mg/dL (7-18); BUN/Creat Ratio 10.8 RATIO (10-20); Calcium,Total 8.4 mg/dL (8.5-10.1); Chloride 100 mmol/L (98-107); Creatinine, Serum 1.85 mg/dL (0.70-1.30); EST Glomerular Filtration Rate 38 mL/min (>60); Est Glom Filt Rate - Afr Amer 46 mL/min (>60); Estimated Creatinine Clearance 30.77 ml/min; Glucose 156 mg/dL (74-106); Potassium 4.3 mmol/L (3.5-5.1); Sodium Level 138 mmol/L (136-145)
[2018-10-01 07:10] LABS: Bedside Glucose 180 mg/dL (70-110)
[2018-10-01] MEDS: Insulin Lispro 100 UNIT/ML INSULN.PEN SC ×3 (07:33→21:44)
[2018-10-01] MEDS: Isosorbide Mononitrate 30 MG Tablet PO (09:07)
[2018-10-01] MEDS: Aspirin E.C. 81 MG Tablet PO (09:07)
[2018-10-01] MEDS: Bumetanide 0.5 MG Tablet 1 MG PO ×2 (09:07→21:41)
[2018-10-01] MEDS: Ranolazine 500 MG Tablet 1000 MG PO ×2 (09:08→21:41)
[2018-10-01] MEDS: Clopidogrel Bisulfate 75 MG Tablet PO (09:08)
[2018-10-01] MEDS: levETIRAcetam 750 MG Tablet PO ×2 (09:08→21:44)
[2018-10-01] MEDS: Dofetilide 250 MCG Capsule PO ×2 (09:08→21:41)
--- NOTE | 2018-10-01 10:47 | CASEMGMT ---
TAYLOR spoke with patient and his . Discussed d/c plan and they would like [facility] TCU. TAYLOR spoke with [facility] and they could take patient and she will start the pre-cert. TAYLOR let patient and know this information. Plan: TCU pending insurance approval Ela LANDAVERDE
[2018-10-01] MEDS: Carvedilol 25 MG Tablet PO ×2 (10:55→21:43)
[2018-10-01 11:20] LABS: Bedside Glucose 210 mg/dL (70-110)
[2018-10-01 16:46] LABS: Bedside Glucose 149 mg/dL (70-110)
[2018-10-01] MEDS: 0.9% NaCl Peripheral Flush Adult/Peds IV (20:15)
[2018-10-01] MEDS: Pramipexole Di-HCl 1 MG Tablet 2 MG PO (20:15)
--- NOTE | 2018-10-01 20:16 | PCM.PROGNOTE ---
Patient Problems: Active and Suspected Problems (Last Reviewed 09/24/18 @ 13:39 by Anthony Hyde MD) Generalized weakness (Acute) Episode of syncope (Acute) Subjective: Patient was seen and examined today, his rate appears to be under good control while he is at rest, at times when he is up and around his rate increases. Patient has had no more syncopal episodes. Patient appears more alert today and talkative, I talked at length with his hat former Dr. Hu today, his pacemaker interrogation did not show any episodes of ventricular tachycardia but did show what appeared to be episodes of atrial flutter. For now, patient's rate appears to be adequately controlled on his medications. PT and OT are continuing to work with the patient, we are awaiting approval for patient to go to TCU at this time. Patient's creatinine was more elevated today, I will repeat his BMP tomorrow - Physical Exam General: Alert, Oriented x3, Cooperative, No apparent distress, Well developed HEENT: Atraumatic, PERRLA, EOMI, Normocephalic Oral: Moist Mucosa Neck: Supple, No JVD, No Nuchal Rigidity, Trachea Midline, Thyroid Normal Size and Texture Lungs: Clear to auscultation, Normal air movement, No rhonchi, No wheeze, No rales Cardiovascular: No murmurs, PMI Normal, Irregular Rate, No rub noted Abdomen: Bowel Sounds Present, Soft, Non Tender, Non-Distended, No hernias noted Extremities: No clubbing, No cyanosis, No edema, Capillary Refill Less than 3 Seconds Skin: No rashes, No breakdown Musculoskeletal: No Tenderness to Palpation of Joints or Extremities Neurological: Cranial nerves II-XII grossly intact, Neuro grossly intact, Sensory exam intact to light touch and pain, Coordination normal Psych/Mental Status: Normal Affect, Appropriate, Alert and oriented to time, place, person, mood and affect Vital Signs Temp Pulse Resp BP Pulse Ox 98.2 F 88 20 H 113/80 98 10/01/18 20:12 10/01/18 20:12 10/01/18 20:12 10/01/18 20:12 10/01/18 20:12 Oxygen Flow Rate (L/min) 2 Oxygen Delivery Method Room Air Weight: 86.9 kg Body Mass Index (BMI) 29.9 Finger Stick Blood Glucose 249 Intake and Output for Last 24 Hours 09/29/18 09/30/18 10/01/18 23:59 23:59 23:59 Intake Total 440 / 440 975 / 975 Output Total 475 / 475 1050 / 1050 Balance -35 / -35 -75 / -75 Microbiology Past 72 Hours 09/30/18 07:00 Urine Culture - Preliminary Urine, Clean Catch Culture exhibits no growth. Laboratory Tests Past 24 Hrs 10/01/18 05:45 Sodium 138 Potassium 4.3 Chloride 100 Carbon Dioxide 27.0 Anion Gap 11 BUN 20 H Creatinine 1.85 H Estim Creat Clear Calc 30.77 Est GFR (MDRD) Af Amer 46 L Est GFR (MDRD) Non-Af 38 L BUN/Creatinine Ratio 10.8 Glucose 156 H Calcium 8.4 L POC Glucose 10/01/18 10/01/18 10/01/18 16:29 10:54 07:04 POC Glucose 149 H 210 H 180 H 09/30/18 22:23 POC Glucose 199 H Medical Necessity - Tobacco Use Smoking Status: Former smoker Tobacco Use: Non-smoker Assessment/Plan All Active Problems (Last Reviewed 09/24/18 @ 13:39 by Anthony Hyde MD) Epiploic appendagitis (Acute) Generalized weakness (Acute) Episode of syncope (Acute) Aortocoronary bypass status (Resolved) Subdural hematoma (Resolved) #1 generalized weakness-probably secondary to underlying ischemic cardiomyopathy and generalized debility, patient will continue to be seen by PT and OT, he will most certainly need short-term placement in a senior living facility for strengthening, we are awaiting approval from his insurance carrier for placement in TCU #2 presyncopal episode at his home-etiology unclear, possibly secondary to orthostatic hypotension-interrogation of the patient's pacemaker today did not show any episodic ventricular tachycardia or any malignant arrhythmia that would cause syncope according to cardiology. #3 ischemic cardiomyopathy #4 type 2 diabetes-blood sugars will be monitored, sliding scale insulin will be used #5 chronic kidney disease stage III secondary to type 2 diabetes, BMP will be obtained tomorrow #6 chronic systolic congestive heart failure-patient does not appear to be in acute heart failure at this time, patient's medications will be continued #7 seizure disorder-patient will continue on his home medications #8 obstructive sleep apnea-patient will use his own CPAP machine in the hospital #9 hyperlipidemia #10 atherosclerotic heart disease #11 paroxysmal atrial fibrillation/flutter-patient is not a candidate for anticoagulation due to his fall risk and generalized debility #12 hypothyroidism Code Visit OBSV E&M: [id number] Subsequent observation care L3
[2018-10-01] MEDS: Atorvastatin Calcium 10 MG Tablet PO (21:41)
[2018-10-01 21:56] LABS: Bedside Glucose 173 mg/dL (70-110)
[2018-10-02] VITALS (9 sets, daily range): BP systolic 94–114; BP diastolic 56–74; PULSE 82–99; RESP 12–20; TEMP 36.3–36.9; O2SAT 95–100
[2018-10-02] MEDS: Levothyroxine 100 MCG Tablet PO (06:07)
[2018-10-02] MEDS: Heparin Injection (Vial) 5,000 UNIT/ML VIAL 5000 UNIT SC ×2 (06:07→14:14)
[2018-10-02] MEDS: Mexiletine 150 MG Capsule PO ×2 (06:09→14:14)
[2018-10-02 06:26] LABS: Anion Gap 9 (5-15); BUN 23 mg/dL (7-18); BUN/Creat Ratio 11.5 RATIO (10-20); Calcium,Total 8.2 mg/dL (8.5-10.1); Chloride 100 mmol/L (98-107); EST Glomerular Filtration Rate 35 mL/min (>60); Est Glom Filt Rate - Afr Amer 42 mL/min (>60); Estimated Creatinine Clearance 28.46 ml/min; Glucose 167 mg/dL (74-106); Potassium 3.9 mmol/L (3.5-5.1); Sodium Level 135 mmol/L (136-145)
[2018-10-02 06:41] LABS: Bedside Glucose 161 mg/dL (70-110)
[2018-10-02] MEDS: Insulin Lispro 100 UNIT/ML INSULN.PEN SC ×3 (08:06→16:58)
[2018-10-02] MEDS: Dofetilide 250 MCG Capsule PO (10:03)
[2018-10-02] MEDS: Ranolazine 500 MG Tablet 1000 MG PO (10:03)
[2018-10-02] MEDS: Clopidogrel Bisulfate 75 MG Tablet PO (10:03)
[2018-10-02] MEDS: Isosorbide Mononitrate 30 MG Tablet PO (10:03)
[2018-10-02] MEDS: Bumetanide 0.5 MG Tablet 1 MG PO (10:04)
[2018-10-02] MEDS: Carvedilol 25 MG Tablet PO (10:04)
[2018-10-02] MEDS: levETIRAcetam 750 MG Tablet PO (10:04)
[2018-10-02] MEDS: Aspirin E.C. 81 MG Tablet PO (10:04)
[2018-10-02 11:45] LABS: Bedside Glucose 158 mg/dL (70-110)
--- NOTE | 2018-10-02 13:45 | CASEMGMT ---
Received insurance approval for patient to go to TCU. However, per physician patient may need transferred to another hospital. TAYLOR let Felicitas in TCU know this information. SW also let patient and his know that he was approved for TCU. Ela RODRÍGUEZ MSW
--- NOTE | 2018-10-02 15:03 | CASEMGMT ---
Patient has a healthcare living will on file. He has a General Power of Supervisor Special Services on file, but no healthcare POA. Ela RODRÍGUEZ MSW
[2018-10-02 17:05] LABS: Bedside Glucose 204 mg/dL (70-110)
--- NOTE | 2018-10-02 17:07 | NURSING ---
called report to BEKA Simpson @ [facility]
--- NOTE | 2018-10-03 10:05 | PCM.DC.SUM ---
Discharge Date and Diagnosis Date of Admission: 09/30/18 Date of Discharge: 10/02/18 - Primary Discharge Diagnosis #1 generalized weakness-probably secondary to underlying ischemic cardiomyopathy and generalized debility #2 syncopal episode -etiology unclear #3 ischemic cardiomyopathy #4 type 2 diabetes #5 chronic kidney disease stage III secondary to type 2 diabetes #6 chronic systolic congestive heart failure-patient does not appear to be in acute heart failure #7 seizure disorder #8 obstructive sleep apnea #9 hyperlipidemia #10 atherosclerotic heart disease #11 paroxysmal atrial fibrillation #12 hypothyroidism - Secondary Discharge Diagnosis Chronic Problems (Last Reviewed 09/24/18 @ 13:39 by Anthony Hyde MD) CKD (chronic kidney disease) stage 4, GFR 15-29 ml/min (Chronic) HLD (hyperlipidemia) (Chronic) Non-ST elevation (NSTEMI) myocardial infarction (Chronic) Angina pectoris (Chronic) CAD (coronary artery disease) (Chronic) Edema (Chronic) Dyspnea (Chronic) Renal disease (Chronic) Fatigue (Chronic) XOCHITL (obstructive sleep apnea) (Chronic) Diabetes mellitus type 2, noninsulin dependent (Chronic) Old myocardial infarction (Chronic) Long-term use of high-risk medication (Chronic) Chronic renal failure (Chronic) Cardiac murmur (Chronic) Hypokalemia (Chronic) Atherosclerotic heart disease of [place] coronary artery without angina pectoris (Chronic) CABG 1988; Reoperation CABG x3 SVG to LAD, SVG to Rt PDA, Radial artery to OM-2 10/08/02; VT ablation @[facility] 01/03/17 [facility] 03/10/2016 Ventricular tachycardia (paroxysmal) (Chronic) ICD (implantable cardioverter-defibrillator) in place (Chronic ~11/2001) Implant 12/10/2001 ICD replacement 06/10/2009, 06/05/2014, Systolic CHF, chronic (Chronic) Cardiomyopathy, ischemic (Chronic) CKD (chronic kidney disease), stage II (Chronic) Type II diabetes mellitus, uncontrolled (Chronic) Esophageal reflux (Chronic) HLD (hyperlipidemia) (Chronic) HTN (hypertension) (Chronic) Hypothyroidism (Chronic) Sleep apnea (Chronic) Hospital Course and Treatment Operations: None Procedures: - - Pacemaker interrogation Summary of Care Provided: The patient is a 78 year old M seen in the emergency room at [facility] [place] after having an episode of syncope which was brief-less than a minute at home-according to his . Patient was lying down when this happened and briefly passed out. Patient is also been weak since his last hospitalization at [facility] [place] in August 2018, this is a generalized weakness. Workup in the emergency room included an EKG which appeared to show periods of atrial fibrillation along with paced rhythm, chest x-ray showed no evidence of acute heart failure, labs showed an elevated creatinine which was chronic for the patient, patient's hemoglobin was slightly low at 12.3. Patient was placed in observation status on PCU, his pacemaker was interrogated and showed periods of atrial fib with rates over 100. It showed no evidence of ventricular tachycardia. I had discussions with the patient's helpdesk specialist and his rate limiting medication was increased and his labs are monitored. Creatinine corey slightly during his hospitalization. Patient was seen by PT and OT, there were no more periods of syncope noted during his hospitalization. On 10/02/18, patient was seen and examined: General: Alert, Oriented x3, Cooperative, No apparent distress, Well developed HEENT: Atraumatic, PERRLA, EOMI, Normocephalic Oral: Moist Mucosa Neck: Supple, No JVD, No Nuchal Rigidity, Trachea Midline, Thyroid Normal Size and Texture Lungs: Clear to auscultation, Normal air movement, No rhonchi, No wheeze, No rales Cardiovascular: No murmurs, PMI Normal, Irregular Rate, No rub noted Abdomen: Bowel Sounds Present, Soft, Non Tender, Non-Distended, No hernias noted Extremities: No clubbing, No cyanosis, No edema, Capillary Refill Less than 3 Seconds Skin: No rashes, No breakdown Musculoskeletal: No Tenderness to Palpation of Joints or Extremities Neurological: Cranial nerves II-XII grossly intact, Neuro grossly intact, Sensory exam intact to light touch and pain, Coordination normal Psych/Mental Status: Normal Affect, Appropriate, Alert and oriented to time, place, person, mood and affect Vital Signs as noted in medical record On 10/02/18, patient was ambulated in the [facility] and it was noted that his heart rate croey into the 130s, patient was asymptomatic and this rhythm appeared to be atrial fibrillation. Patient was felt not to be a candidate for anticoagulation due to his intracranial hemorrhage approximately a year ago, discussions were carried out with the patient's and the patient as well as patient's son. Cardiology recommended that the patient be transferred to [facility] on the electrophysiology service for evaluation of his atrial fib, patient, patient's , and patient's son all agreed that that would be the best course and the patient was transferred to [facility] on that date in stable condition. - Physical Exam Vital Signs Temp Pulse Resp BP Pulse Ox 98.0 F 82 12 94/56 L 100 10/02/18 15:35 10/02/18 15:35 10/02/18 15:35 10/02/18 15:35 10/02/18 15:35 Oxygen Flow Rate (L/min) 2 Oxygen Delivery Method Room Air Weight: 86.9 kg Body Mass Index (BMI) 29.9 Finger Stick Blood Glucose 249 Intake and Output for Last 24 Hours 10/01/18 10/02/18 10/03/18 23:59 23:59 23:59 Intake Total 1075 / 1075 550 / 550 Output Total 1375 / 1375 600 / 600 Balance -300 / -300 -50 / -50 Microbiology Past 72 Hours 09/30/18 07:00 Urine Culture - Final Urine, Clean Catch Culture exhibits no growth. POC Glucose 10/02/18 10/02/18 16:57 11:30 POC Glucose 204 H 158 H Home Medications: Medications to take at Discharge Nitroglycerin [Nitrostat] 0.4 mg SUBLINGUAL Q5M PRN 06/02/14 Ranolazine [Ranexa] 1,000 mg PO BID 06/02/14 Atorvastatin Calcium [Lipitor] 10 mg PO QHS 08/20/14 Dofetilide 250 mcg PO BID 03/14/17 aspirin 81 mg tablet,delayed release 81 mg PO DAILY 11/12/17 bumetanide 1 mg tablet 1 mg PO BID 11/12/17 levothyroxine 100 mcg tablet 100 mcg PO DAILY@0600 tab 11/12/17 carvedilol 12.5 mg tablet 18.75 mg PO BID tab 11/14/17 clopidogrel 75 mg tablet 75 mg PO DAILY 11/14/17 Sitagliptin Phosphate [Januvia] 50 mg PO DAILY 01/18/18 clonazepam 1 mg tablet 1 mg PO BID PRN 08/30/18 isosorbide mononitrate ER 30 mg tablet,extended release 24 hr 30 mg PO DAILY 08/30/18 mexiletine 150 mg capsule 150 mg PO TID cap 08/30/18 potassium chloride ER 20 mEq tablet,extended release(part/cryst) 20 meq PO DAILY tab 08/30/18 ropinirole 1 mg tablet 2 mg PO .COMPLEX tab 08/30/18 Menthol/Lanolin/Calamine/Znox [Calmoseptine Ointment] 1 applic TOPICAL 4X/DAY #1 tube 09/26/18 levETIRAcetam tablet [Keppra tablet] 750 mg PO BID #60 tablet 09/26/18 Escitalopram Oxalate [Lexapro] 5 mg PO DAILY 09/30/18 Primary Care Physician: Anabella Lomax MD [Primary Care Provider] - Disposition: Acute care Hospital Minutes spent on discharge:: 32 Patient Condition:: Stable Medical Necessity - Tobacco Use Smoking Status: Former smoker Tobacco Use: Non-smoker Meaningful Use Info Meaningful Use Diagnoses (Choose all that apply): None applicable Code Visit OBSV E&M: 42697 Observation care discharge
--- NOTE | 2018-10-03 10:13 | DS.PCM_ITS ---
Discharge Date and Diagnosis Date of Admission: 09/30/18 Date of Discharge: 10/02/18 - Primary Discharge Diagnosis #1 generalized weakness-probably secondary to underlying ischemic cardiomyopathy and generalized debility #2 syncopal episode -etiology unclear #3 ischemic cardiomyopathy #4 type 2 diabetes #5 chronic kidney disease stage III secondary to type 2 diabetes #6 chronic systolic congestive heart failure-patient does not appear to be in acute heart failure #7 seizure disorder #8 obstructive sleep apnea #9 hyperlipidemia #10 atherosclerotic heart disease #11 paroxysmal atrial fibrillation #12 hypothyroidism - Secondary Discharge Diagnosis Chronic Problems (Last Reviewed 09/24/18 @ 13:39 by Anthony Hyde MD) CKD (chronic kidney disease) stage 4, GFR 15-29 ml/min (Chronic) HLD (hyperlipidemia) (Chronic) Non-ST elevation (NSTEMI) myocardial infarction (Chronic) Angina pectoris (Chronic) CAD (coronary artery disease) (Chronic) Edema (Chronic) Dyspnea (Chronic) Renal disease (Chronic) Fatigue (Chronic) XOCHITL (obstructive sleep apnea) (Chronic) Diabetes mellitus type 2, noninsulin dependent (Chronic) Old myocardial infarction (Chronic) Long-term use of high-risk medication (Chronic) Chronic renal failure (Chronic) Cardiac murmur (Chronic) Hypokalemia (Chronic) Atherosclerotic heart disease of [place] coronary artery without angina pectoris (Chronic) CABG 1988; Reoperation CABG x3 SVG to LAD, SVG to Rt PDA, Radial artery to OM-2 10/08/02; VT ablation @[facility] 01/03/17 [facility] 03/10/2016 Ventricular tachycardia (paroxysmal) (Chronic) ICD (implantable cardioverter-defibrillator) in place (Chronic ~11/2001) Implant 12/10/2001 ICD replacement 06/10/2009, 06/05/2014, Systolic CHF, chronic (Chronic) Cardiomyopathy, ischemic (Chronic) CKD (chronic kidney disease), stage II (Chronic) Type II diabetes mellitus, uncontrolled (Chronic) Esophageal reflux (Chronic) HLD (hyperlipidemia) (Chronic) HTN (hypertension) (Chronic) Hypothyroidism (Chronic) Sleep apnea (Chronic) Hospital Course and Treatment Operations: None Procedures: - - Pacemaker interrogation Summary of Care Provided: The patient is a 78 year old M seen in the emergency room at [facility] after having an episode of syncope which was brief-less than a minute at home-according to his . Patient was lying down when this happened and briefly passed out. Patient is also been weak since his last hospitalization at [facility] in August 2018, this is a generalized weakness. Workup in the emergency room included an EKG which appeared to show periods of atrial fibrillation along with paced rhythm, chest x-ray showed no evidence of acute heart failure, labs showed an elevated creatinine which was chronic for the patient, patient's hemoglobin was slightly low at 12.3. Patient was placed in observation status on PCU, his pacemaker was interrogated and showed periods of atrial fib with rates over 100. It showed no evidence of ventricular tachycardia. I had discussions with the patient's windows application packager and his rate limiting medication was increased and his labs are monitored. Creatinine corey slightly during his hospitalization. Patient was seen by PT and OT, there were no more periods of syncope noted during his hospitalization. On 10/02/18, patient was seen and examined: General: Alert, Oriented x3, Cooperative, No apparent distress, Well developed HEENT: Atraumatic, PERRLA, EOMI, Normocephalic Oral: Moist Mucosa Neck: Supple, No JVD, No Nuchal Rigidity, Trachea Midline, Thyroid Normal Size and Texture Lungs: Clear to auscultation, Normal air movement, No rhonchi, No wheeze, No r ales Cardiovascular: No murmurs, PMI Normal, Irregular Rate, No rub noted Abdomen: Bowel Sounds Present, Soft, Non Tender, Non-Distended, No hernias noted Extremities: No clubbing, No cyanosis, No edema, Capillary Refill Less than 3 Seconds Skin: No rashes, No breakdown Musculoskeletal: No Tenderness to Palpation of Joints or Extremities Neurological: Cranial nerves II-XII grossly intact, Neuro grossly intact, Sensory exam intact to light touch and pain, Coordination normal Psych/Mental Status: Normal Affect, Appropriate, Alert and oriented to time, place, person, mood and affect Vital Signs as noted in medical record On 10/02/18, patient was ambulated in the [facility] and it was noted that his heart rate corey into the 130s, patient was asymptomatic and this rhythm appeared to be atrial fibrillation. Patient was felt not to be a candidate for anticoagulation due to his intracranial hemorrhage approximately a year ago, discussions were carried out with the patient's and the patient as well as patient's son. Cardiology recommended that the patient be transferred to [facility] on the electrophysiology service for evaluation of his atrial fib, patient, patient's , and patient's son all agreed that that would be the best course and the patient was transferred to [facility] on that date in stable condition. - Physical Exam Vital Signs Temp Pulse Resp BP Pulse Ox 98.0 F 82 12 94/56 L 100 10/02/18 15:35 10/02/18 15:35 10/02/18 15:35 10/02/18 15:35 10/02/18 15:35 Oxygen Flow Rate (L/min) 2 Oxygen Delivery Method Room Air Weight: 86.9 kg Body Mass Index (BMI) 29.9 Finger Stick Blood Glucose 249 Intake and Output for Last 24 Hours 10/01/18 10/02/18 10/03/18 23:59 23:59 23:59 Intake Total 1075 / 1075 550 / 550 Output Total 1375 / 1375 600 / 600 Balance -300 / -300 -50 / -50 Microbiology Past 72 Hours 09/30/18 07:00 Urine Culture - Final Urine, Clean Catch Culture exhibits no growth. POC Glucose 10/02/18 10/02/18 16:57 11:30 POC Glucose 204 H 158 H Home Medications: Medications to take at Discharge Nitroglycerin [Nitrostat] 0.4 mg SUBLINGUAL Q5M PRN 06/02/14 Ranolazine [Ranexa] 1,000 mg PO BID 06/02/14 Atorvastatin Calcium [Lipitor] 10 mg PO QHS 08/20/14 Dofetilide 250 mcg PO BID 03/14/17 aspirin 81 mg tablet,delayed release 81 mg PO DAILY 11/12/17 bumetanide 1 mg tablet 1 mg PO BID 11/12/17 levothyroxine 100 mcg tablet 100 mcg PO DAILY@0600 tab 11/12/17 carvedilol 12.5 mg tablet 18.75 mg PO BID tab 11/14/17 clopidogrel 75 mg tablet 75 mg PO DAILY 11/14/17 Sitagliptin Phosphate [Januvia] 50 mg PO DAILY 01/18/18 clonazepam 1 mg tablet 1 mg PO BID PRN 08/30/18 isosorbide mononitrate ER 30 mg tablet,extended release 24 hr 30 mg PO DAILY 08/30/18 mexiletine 150 mg capsule 150 mg PO TID cap 08/30/18 potassium chloride ER 20 mEq tablet,extended release(part/cryst) 20 meq PO DAILY tab 08/30/18 ropinirole 1 mg tablet 2 mg PO .COMPLEX tab 08/30/18 Menthol/Lanolin/Calamine/Znox [Calmoseptine Ointment] 1 applic TOPICAL 4X/DAY #1 tube 09/26/18 levETIRAcetam tablet [Keppra tablet] 750 mg PO BID #60 tablet 09/26/18 Escitalopram Oxalate [Lexapro] 5 mg PO DAILY 09/30/18 Primary Care Physician: Anabella Lomax MD [Primary Care Provider] - Disposition: Acute care Hospital Minutes spent on discharge:: 32 Patient Condition:: Stable Medical Necessity - Tobacco Use Smoking Status: Former smoker Tobacco Use: Non-smoker Meaningful Use Info Meaningful Use Diagnoses (Choose all that apply): None applicable Code Visit OBSV E&M: 15850 Observation care discharge
== END 2018-10-02 17:22 | disposition short-term general hospital (02) ==
LOC: ED 08:16 → PCU 11:13
PROVIDERS: Admitting Provider Internal Medicine; Emergency Provider Emergency Medicine; Family Provider Internal Medicine; PCP Internal Medicine; Visit Provider Internal Medicine
DX: R53.1 Weakness (principal); R55 Syncope and collapse; I13.0 Hypertensive heart and chronic kidney disease with heart failure and stage 1 through stage 4 chronic kidney disease, or unspecified chronic kidney disease; I50.22 Chronic systolic (congestive) heart failure; N18.3 Chronic kidney disease, stage 3 (moderate); E11.22 Type 2 diabetes mellitus with diabetic chronic kidney disease; G40.909 Epilepsy, unspecified, not intractable, without status epilepticus; I25.5 Ischemic cardiomyopathy; G47.33 Obstructive sleep apnea (adult) (pediatric); I48.0 Paroxysmal atrial fibrillation; E03.9 Hypothyroidism, unspecified; E78.5 Hyperlipidemia, unspecified; I25.10 Atherosclerotic heart disease of native coronary artery without angina pectoris; I25.2 Old myocardial infarction; E11.65 Type 2 diabetes mellitus with hyperglycemia; K21.9 Gastro-esophageal reflux disease without esophagitis; Z95.1 Presence of aortocoronary bypass graft; Z79.899 Other long term (current) drug therapy; Z79.82 Long term (current) use of aspirin; Z79.02 Long term (current) use of antithrombotics/antiplatelets; Z95.810 Presence of automatic (implantable) cardiac defibrillator; Z87.891 Personal history of nicotine dependence
CPT/HCPCS: 36415; 71045; 80048; 81001; 82962; 83880; 84484; 85025; 87086; 93005; 97162; 97165; 97530; 97535; 99218; 99285; J7030; A4216; G0378

== ENCOUNTER 2018-10-16 13:03 | Inpatient (IN) | payer MEDICARE, SELFPAY ==
[2018-09-30 12:19] VITALS: BMI 29.9
[2018-10-16] VITALS (15 sets, daily range): BP systolic 103–123; BP diastolic 67–75; PULSE 80–85; RESP 15–28; TEMP 35.7–36.8; O2SAT 94–99; BMI 26.8; BMI 27.3
--- NOTE | 2018-10-16 13:43 | EKG12_ITS ---
Test Reason : SOB Blood Pressure : / mmHG Vent. Rate : 080 BPM Atrial Rate : 080 BPM P-R Int : 000 ms QRS Dur : 194 ms QT Int : 506 ms P-R-T Axes : 000 -80 111 degrees QTc Int : 583 ms Ventricular-paced rhythm Biventricular pacemaker detected Abnormal ECG Confirmed by AYO ROGERS, CORRINA ([id number]), news video editor YANG BARR ([id number]) on 10/18/2018 1:54:38 PM Referred By: ION/AUBREE Confirmed By:CORRINA ROLLINS MD
--- NOTE | 2018-10-16 13:43 | RAD_ITS ---
STUDY: X-RAY CHEST REASON FOR EXAM: Male, 78 years old. Chest pain TECHNIQUE: Single AP portable view of the chest. COMPARISON: 09/30/2018 FINDINGS: Lungs are hypoinflated. Lungs are clear. There is no demonstrated pleural abnormality. Sternal cerclage wires are present from a prior sternotomy. Mild cardiomegaly. Stable left chest wall pacing device. Normal mediastinum and jessy. Normal visualized pulmonary arteries. Normal visualized aortic arch and descending thoracic aorta. Normal visualized thoracic spine. Normal visualized ribs, clavicles, and shoulders. There is no demonstrated abnormality of the visualized soft tissue structures of the upper abdomen. RAD/Chest 1 View (Portable) IMPRESSION: Hypoinflated lungs which are clear. Electronically Signed: Gene Martell DO at 14:35 EST Tel , Service support ,
--- NOTE | 2018-10-16 13:48 | ED.VISSUMM ---
- ER Visit Summary Date of Service: 10/16/18 Chief Complaint: Cough and generalized weakness. History of Present Illness: The patient is a [address] of cardiomyopathy, V. tach, defibrillator, noncemented diabetes, renal insufficiency, CAD with prior double bypass. Recent ablation at [facility]. Prior intracranial bleed with surgical drainage. Patient was recently hospitalized for abnormal heart rhythm. This was ablated. States had a cough over at least 2 weeks. Worsening shortness of breath. Denies fever. Yellowish sputum. No hemoptysis. No significant chest pain. Physical Examination: Older male vital signs are stable. Afebrile. Does not look septic or toxic. H EENT exam unremarkable. Abdomen dry mucous membranes. Neck nontender. No lymphadenopathy. Lungs expiratory wheezing throughout worse in the bases. Cough. Heart paced rhythm at 80. Abdomen soft nontender. Normal bowel sounds no peritoneal signs. Moving all 4 extremities. Calves nontender without edema or cords. Neurologically motor deficits. Test Results: CBC normal white count of 9. Hemoglobin 14. Electrolytes sodium 130. BUN and creatinine 42 and 2.36 consistent with dehydration and worsening renal insufficiency. Troponin normal. EKG is paced rhythm. Portable 1 view chest x-ray shows no acute process. Prior sternotomy. Left-sided defibrillator pacemaker. No obvious pneumonia. Read both by myself and the radiologist. Emergency Department Course and Treatment: Treated with both DuoNeb and albuterol aerosols. A liter of normal saline. Repeat exams patient is doing better. His had significant concern he was discharged twice from [facility] and had to be readmitted. She is is concerned about his overall weakness. We did try to walk the patient and he had significant difficulty with his overall weakness. I will speak to the hospitalist about admission. Treatment Plan: [] Disposition: Observation admission Impression: Acute dyspnea and cough secondary to bronchitis and bronchospasm Mild dehydration renal insufficiency Acute generalized weakness with difficulty walking History of CAD and CABG and cardiomyopathy History of mvl-lhtpvyz-brocnvine diabetes History of renal insufficiency This note was generated with [employer] dictation software. It may contain incorrect words, spelling, and punctuation that were not noted in review of the chart prior to signing ED Disposition - Plan for ED Patient: Chief Complaint: Shortness of Breath Referrals: Anabella Lomax MD [Primary Care Provider] -
--- NOTE | 2018-10-16 13:51 | ED.DCSUM_ITS ---
- ER Visit Summary Date of Service: 10/16/18 Chief Complaint: Cough and generalized weakness. History of Present Illness: The patient is a [address] of cardiomyopathy, V. tach, defibrillator, noncemented diabetes, renal insufficiency, CAD with prior double bypass. Recent ablation at [facility]. Prior intracranial bleed with surgical drainage. Patient was recently hospitalized for abnormal heart rhythm. This was ablated. States had a cough over at least 2 weeks. Worsening shortness of breath. Denies fever. Yellowish sputum. No hemoptysis. No significant chest pain. Physical Examination: Older male vital signs are stable. Afebrile. Does not look septic or toxic. H EENT exam unremarkable. Abdomen dry mucous membranes. Neck nontender. No lymphadenopathy. Lungs expiratory wheezing throughout worse in the bases. Cough. Heart paced rhythm at 80. Abdomen soft nontender. Normal bowel sounds no peritoneal signs. Moving all 4 extremities. Calves nontender without edema or cords. Neurologically motor deficits. Test Results: CBC normal white count of 9. Hemoglobin 14. Electrolytes sodium 130. BUN and creatinine 42 and 2.36 consistent with dehydration and worsening renal insufficiency. Troponin normal. EKG is paced rhythm. Portable 1 view chest x-ray shows no acute process. Prior sternotomy. Left-sided defibrillator pacemaker. No obvious pneumonia. Read both by myself and the radiologist. Emergency Department Course and Treatment: Treated with both DuoNeb and albuterol aerosols. A liter of normal saline. Repeat exams patient is doing better. His had significant concern he was discharged twice from [facility] and had to be readmitted. She is is concerned about his overall weakness. We did try to walk the patient and he had significant difficulty with his overall weakness. I will speak to the hospitalist about admission. Treatment Plan: [] Disposition: Observation admission Impression: Acute dyspnea and cough secondary to bronchitis and bronchospasm Mild dehydration renal insufficiency Acute generalized weakness with difficulty walking History of CAD and CABG and cardiomyopathy History of eel-kkwbfar-omothkjly diabetes History of renal insufficiency This note was generated with [employer] dictation software. It may contain incorrect words, spelling, and punctuation that were not noted in review of the chart prior to signing ED Disposition - Plan for ED Patient: Chief Complaint: Shortness of Breath Referrals: Anabella Lomax MD [Primary Care Provider] -
[2018-10-16] MEDS: Albuterol 2.5 MG/3 ML VIAL.NEB. INHALATION ×2 (13:59→22:05)
[2018-10-16] MEDS: 0.9% Normal Saline 1,000 ML 1000 ML IV (13:59)
[2018-10-16] MEDS: Ipratropium/Albuterol Sulfate 3 ML AMPUL.NEB INHALATION ×2 (13:59→14:29)
[2018-10-16 14:16] LABS: Absolute Lymphocyte Count 1.37 X10^3/ul (0.83-4.51); Absolute Neutrophil Count 6.8 X10^3/uL (2.0-7.7); Basophil# 0.04 X10^3/uL; Basophil% 0.4 % (0-1); Eosinophil# 0.21 X10^3/uL; Eosinophils% 2.2 % (0-5); Hemoglobin 14.2 g/dl (13.0-16.5); Lymphocyte # 1.37 X10^3/ul (4.0); Lymphocyte % 14.6 % (19-41); Mean Corp Hgb Conc 33.8 g/gl (32-36); Mean Corpuscular Hgb 33.2 pg (27.0-32.0); Mean Corpuscular Volume 98.1 fL (80-94); Mean Platelet Vol. 9.7 fl (6.2-12.0); Monocyte# 0.92 X10^3/uL; Monocyte% 9.8 % (0-10); Neutrophil # 6.78 X10^3/uL (2.7-7.7); Neutrophil % 72.6 % (47-70); Platelet Count 192 K/mm3 (150-450); RBC Distribution Width CV 14.2 % (11.6-14.6); RBC Distribution Width SD 50.5 fl (35.1-43.9); Red Blood Count 4.28 M/mm3 (4.6-6.2); White Blood Count 9.4 K/mm3 (4.4-11.0)
[2018-10-16 14:17] LABS: POSITIVE COUNT NO; POSITIVE DIFFERENTIAL NO; POSITIVE MORPHOLOGY NO
[2018-10-16 15:27] LABS: Anion Gap 10 (5-15); BUN 42 mg/dL (7-18); BUN/Creat Ratio 17.8 RATIO (10-20); Calcium,Total 8.4 mg/dL (8.5-10.1); Chloride 94 mmol/L (98-107); Creatinine, Serum 2.36 mg/dL (0.70-1.30); EST Glomerular Filtration Rate 29 mL/min (>60); Est Glom Filt Rate - Afr Amer 34 mL/min (>60); Estimated Creatinine Clearance 24.12 ml/min; Glucose 150 mg/dL (74-106); Magnesium 2.1 mg/dL (1.6-2.6); Potassium 4.8 mmol/L (3.5-5.1); Sodium Level 130 mmol/L (136-145)
[2018-10-16] MEDS: Azithromycin 250 MG Tablet 500 MG PO (16:13)
[2018-10-16] MEDS: predniSONE 20 MG Tablet 40 MG PO (16:14)
--- NOTE | 2018-10-16 16:36 | HP.PCM_ITS ---
Problem List (1) Bronchitis Status: Acute (2) Pacemaker Status: Chronic (3) CKD (chronic kidney disease) stage 4, GFR 15-29 ml/min Status: Chronic (4) HLD (hyperlipidemia) Status: Chronic Qualifiers: (5) CAD (coronary artery disease) Status: Chronic Qualifiers: (6) XOCHITL (obstructive sleep apnea) Status: Chronic (7) Diabetes mellitus type 2, noninsulin dependent Status: Chronic (8) Old myocardial infarction Status: Chronic (9) ICD (implantable cardioverter-defibrillator) in place Status: Chronic Comment: Implant 12/10/2001 ICD replacement 06/10/2009, 06/05/2014, (10) Systolic CHF, chronic Status: Chronic (11) Cardiomyopathy, ischemic Status: Chronic (12) Subdural hematoma Status: Resolved (13) Type II diabetes mellitus, uncontrolled Status: Chronic (14) HLD (hyperlipidemia) Status: Chronic Qualifiers: (15) HTN (hypertension) Status: Chronic Qualifiers: (16) Hypothyroidism Status: Chronic Qualifiers: History of Present Illness Date of Admission: 10/16/18 Chief Complaint: cough The patient is a 78 year old M with pmhx of recent AV node ablation, s/p pacer/defib, pt of Dr. Hu, ischemic CM, systolic CHF, afib, CAD, DMt2, CKDIII, HLD, seizure disorder, who presents tot he ER with worsening of a productive cough that has been ongoing for several weeks. He states that this was going on since his admission at [facility] when he had his AV node ablation but it was not addressed. He has no SOB or hypoxia. He has increasing weakness. He is having frequent cough with yellow sputum. No fever. He is very wheezy. In the ER he has a negative CXR, no fever, no WBC elevation. He was given azithromycin, prednisone, duonebs, and fluids. He thinks the fluids helped significantly. His bumex was increased at [facility]. [] Past Medical History Past Medical History (Chronic Problems): Chronic Problems (Last Reviewed 09/24/18 @ 13:39 by Anthony Hyde MD) CKD (chronic kidney disease) stage 4, GFR 15-29 ml/min (Chronic) Pacemaker (Chronic) HLD (hyperlipidemia) (Chronic) Non-ST elevation (NSTEMI) myocardial infarction (Chronic) Angina pectoris (Chronic) CAD (coronary artery disease) (Chronic) Edema (Chronic) Dyspnea (Chronic) Renal disease (Chronic) Fatigue (Chronic) XOCHITL (obstructive sleep apnea) (Chronic) Diabetes mellitus type 2, noninsulin dependent (Chronic) Old myocardial infarction (Chronic) Long-term use of high-risk medication (Chronic) Chronic renal failure (Chronic) Cardiac murmur (Chronic) Hypokalemia (Chronic) Atherosclerotic heart disease of [place] coronary artery without angina pectoris (Chronic) CABG 1988; Reoperation CABG x3 SVG to LAD, SVG to Rt PDA, Radial artery to OM-2 10/08/02; VT ablation @[facility] 01/03/17 [facility] 03/10/2016 Ventricular tachycardia (paroxysmal) (Chronic) ICD (implantable cardioverter-defibrillator) in place (Chronic ~11/2001) Implant 12/10/2001 ICD replacement 06/10/2009, 06/05/2014, Systolic CHF, chronic (Chronic) Cardiomyopathy, ischemic (Chronic) CKD (chronic kidney disease), stage II (Chronic) Type II diabetes mellitus, uncontrolled (Chronic) Esophageal reflux (Chronic) HLD (hyperlipidemia) (Chronic) HTN (hypertension) (Chronic) Hypothyroidism (Chronic) Sleep apnea (Chronic) Medical History: Medical History (Last Reviewed 09/24/18 @ 13:39 by Anthony Hyde MD) HLD (hyperlipidemia) (Chronic) E78.5 Non-ST elevation (NSTEMI) myocardial infarction (Chronic) I21.4 Angina pectoris (Chronic) I20.9 CAD (coronary artery disease) (Chronic) I25.10 Edema (Chronic) R60.9 Dyspnea (Chronic) R06.00 Renal disease (Chronic) N28.9 Fatigue (Chronic) R53.83 XOCHITL (obstructive sleep apnea) (Chronic) G47.33 Diabetes mellitus type 2, noninsulin dependent (Chronic) E11.9 Old myocardial infarction (Chronic) I25.2 Long-term use of high-risk medication (Chronic) Z79.899 Chronic renal failure (Chronic) N18.9 Cardiac murmur (Chronic) R01.1 Hypokalemia (Chronic) E87.6 Atherosclerotic heart disease of [place] coronary artery without angina pectoris (Chronic) I25.10 CABG 1988; Reoperation CABG x3 SVG to LAD, SVG to Rt PDA, Radial artery to OM-2 10/08/02; VT ablation @[facility] 01/03/17 [facility] 03/10/2016 Ventricular tachycardia (paroxysmal) (Chronic) I47.2 ICD (implantable cardioverter-defibrillator) in place (Chronic) Onset Date: ~11/2001 Z95.810 Implant 12/10/2001 ICD replacement 06/10/2009, 06/05/2014, Systolic CHF, chronic (Chronic) I50.22 Cardiomyopathy, ischemic (Chronic) I25.5 Subdural hematoma (Resolved) I62.00 CAD (coronary artery disease) (Inactive) I25.10 CHF (congestive heart failure) (Inactive) I50.9 Visual hallucination (Inactive) R44.1 Allergies amiodarone Allergy (Verified 10/16/18 13:52) Other meperidine [From Demerol] Allergy (Verified 10/16/18 13:52) Low blood pressure spironolactone Allergy (Verified 10/16/18 13:52) Nausea simvastatin Adverse Reaction (Mild, Verified 10/16/18 13:52) Myalgias Home Medications: Ambulatory Orders Medication Instructions Recorded Nitroglycerin [Nitrostat] 0.4 mg SUBLINGUAL Q5M PRN 06/02/14 Ranolazine [Ranexa] 1,000 mg PO BID 06/02/14 Atorvastatin Calcium [Lipitor] 10 mg PO DAILY 08/20/14 aspirin 81 mg tablet,delayed 81 mg PO DAILY 11/12/17 release Sitagliptin Phosphate [Januvia] 50 mg PO DAILY 01/18/18 mexiletine 150 mg capsule 150 mg PO TID cap 08/30/18 bumetanide 1 mg tablet 1 mg PO QHS 10/14/18 bumetanide 2 mg tablet 2 mg PO DAILY 10/14/18 hydralazine 25 mg tablet 25 mg PO TID 10/14/18 isosorbide mononitrate ER 60 mg 60 mg PO DAILY 10/14/18 tablet,extended release 24 hr levothyroxine 50 mcg tablet 50 mcg PO DAILY 10/14/18 metoprolol succinate ER 25 mg 25 mg PO DAILY 10/14/18 tablet,extended release 24 hr Guaifenesin [Mucinex] 600 mg PO BID 10/16/18 Levetiracetam 1,000 mg PO BID 10/16/18 Magnesium Oxide [Mag-Ox 400] 400 mg PO DAILY 10/16/18 Potassium Chloride [Klor-Con M20] 20 meq PO DAILY 10/16/18 Ropinirole HCl 2 mg PO DAILY 10/16/18 Surgical History: Surgical History (Last Reviewed 09/24/18 @ 13:40 by Anthony Hyde MD) Aortocoronary bypass status (Resolved) Z95.1 CABG 1988; Reoperation CABG x3 SVG to LAD, SVG to Rt PDA, Radial artery to OM-2 10/08/02; VT ablation @[facility] 01/03/17 H/O prior ablation treatment Onset Date: ~01/03/17 Z98.890 VT Ablation @ [facility] History of craniotomy Onset Date: ~06/2017 Z98.890 History of herniorrhaphy Z98.890, Z87.19 History of hip replacement Z96.649 RT History of knee surgery Z98.890 Rt S/P CABG (coronary artery bypass graft) (Inactive) Z95.1 Surgical History: cholecystectomy, coronary bypass surgery, - - ICD placement, CABG x 3, Cholecystectomy, RTHR, RTKR, Cardiac ablation, Craniotomy s/p SDH w/ fall. Psychiatric History: Anxiety, Depression Smoking Status: Former smoker - *Family History Paternal Family History: Family History (Last Reviewed 09/24/18 @ 13:40 by Anthony Hyde MD) Father CAD (coronary artery disease) Hypertension Myocardial infarction CHF (congestive heart failure) Mother CAD (coronary artery disease) Myocardial infarction Hypothyroid High cholesterol History Items: Diabetes, Heart Disease, Hypertension Maternal Family History: Family History (Last Reviewed 09/24/18 @ 13:40 by Anthony Hyde MD) Father CAD (coronary artery disease) Hypertension Myocardial infarction CHF (congestive heart failure) Mother CAD (coronary artery disease) Myocardial infarction Hypothyroid High cholesterol History Items: High Cholesterol, Heart Disease, Hypertension Review of Systems Constitutional: Reports: Weakness, Fatigue. Denies: Chills, Fever, Weight Change HEENT: Denies: Head Aches, Sinus Congestion, Sinus Drainage Cardiovascular: Denies: Chest Pain, Heaviness, Light Headedness, Palpitations Respiratory: Reports: Cough, Sputum production. Denies: Shortness of breath at rest Gastrointestinal: Denies: Abdominal Pain, Nausea, Vomiting Genitourinary: Denies: Dysuria Musculoskeletal: Denies: Joint Pain, Joint Tenderness Skin: Denies: Rash, Wounds Neurological: Denies: Numbness, Tingling, Focal weakness Psychiatric: Denies: Anxiety, Depression, Homicidal Ideations, Suicidal Ideations Hematologic/ Lymphatic: Denies: Easy Bruising, Easy Bleeding VTE Information - Inpt Only VTE Present on Admission: No VTE Mechan Device Prophylaxis: None VTE Pharm Prophylaxis ordered?: Yes Patient Problems: Active and Suspected Problems (Last Reviewed 09/24/18 @ 13:39 by Anthony Hyde MD) Bronchitis (Acute) - Physical Exam General: Alert, Oriented x3, Cooperative HEENT: Atraumatic, PERRLA, EOMI, Normocephalic Neck: Supple, No JVD, Negative Carotid Bruits Lungs: Wheezes - diffuse severe wheezing Cardiovascular: Regular rate, No murmurs Abdomen: Bowel Sounds Present, Soft, Non Tender Extremities: No edema, Capillary Refill Less than 3 Seconds Skin: No rashes, No breakdown Musculoskeletal: No Tenderness to Palpation of Joints or Extremities Neurological: Cranial nerves II-XII grossly intact Psych/Mental Status: Normal Affect, Appropriate, Alert and oriented to time, place, person, mood and affect Vital Signs Temp Pulse Resp BP Pulse Ox 98.2 F 83 17 123/75 H 99 10/16/18 15:00 10/16/18 16:02 10/16/18 16:02 10/16/18 16:02 10/16/18 16:02 Oxygen Flow Rate (L/min) 2 Oxygen Delivery Method Room Air Weight: 171 lb 5.492 oz Body Mass Index (BMI) 26.8 Finger Stick Blood Glucose 249 Laboratory Tests Past 24 Hrs 10/16/18 10/16/18 10/16/18 14:00 14:00 15:00 WBC 9.4 RBC 4.28 L Hgb 14.2 Hct 42.0 MCV 98.1 H MCH 33.2 H MCHC 33.8 RDW 14.2 RDW Differential 50.5 H Plt Count 192 MPV 9.7 Immature Gran % (Auto) 0.400 Neut % (Auto) 72.6 H Lymph % (Auto) 14.6 L [place] % (Auto) 9.8 Eos % (Auto) 2.2 Baso % (Auto) 0.4 Absolute Neuts (auto) 6.8 Absolute Lymphs (auto) 1.37 Total Counted Not Reportable Sodium Cancelled 130 L Potassium Cancelled 4.8 Chloride Cancelled 94 L Carbon Dioxide Cancelled 26.0 Anion Gap Cancelled 10 BUN Cancelled 42 H Creatinine Cancelled 2.36 H Estim Creat Clear Calc Cancelled 24.12 Est GFR (MDRD) Af Amer Cancelled 34 L Est GFR (MDRD) Non-Af Cancelled 29 L BUN/Creatinine Ratio Cancelled 17.8 Glucose Cancelled 150 H Calcium Cancelled 8.4 L Magnesium 2.1 Troponin I Cancelled 0.022 Assessment/Plan All Active Problems (Last Reviewed 09/24/18 @ 13:39 by Anthony Hyde MD) Epiploic appendagitis (Acute) Generalized weakness (Acute) Episode of syncope (Acute) Bronchitis (Acute) Aortocoronary bypass status (Resolved) Subdural hematoma (Resolved) 1. Acute bronchitis - continue azithromycin, steroids, duonebs. Severely wheezing, negative WBC, afebrile, negative CXR. 2. CKDIII - appears dry. Cr somewhat above baseline. Will provide gentle hydration and hold fluids 3. Weakness - PTOT. Previously multiple denials for rehab/SNF. He is now weaker. 4. PAFib - recent AV ablation, V paced. Rate controlled. Not on OAC. Continue mexilitine, metoprolol 5. Chronic Systolic CHF, Ischemic CM - hold bumex. No evidence of acute HF. Cautious fluid administration 6. DMt2 - SSI, januvia 7. Seizure disorder, recent breakthrough seizure - continue keppra 8. Hypothyroidism - synthroid 9. CAD - trop neg. Continue statin, asa, BB, isosorbide, hydralazine, ranexa DVT ppx: heparin DC planning: PTOT This patient was seen by Mayito Cha PA-C under the supervision of Dr. Barraza.
[2018-10-16] MEDS: 0.9% Normal Saline 1,000 ML 75 ML IV (18:16)
[2018-10-16] MEDS: Mexiletine 150 MG Capsule PO ×2 (18:18→22:21)
[2018-10-16] MEDS: hydrALAZINE 25 MG Tablet PO (22:19)
[2018-10-16] MEDS: Heparin Injection (Vial) 5,000 UNIT/ML VIAL 5000 UNIT SC (22:19)
[2018-10-16] MEDS: Ranolazine 500 MG Tablet 1000 MG PO (22:20)
[2018-10-16] MEDS: levETIRAcetam 1,000 MG Tablet 1000 MG PO (22:20)
[2018-10-16] MEDS: guaiFENesin 600 MG Tablet PO (22:21)
[2018-10-16] MEDS: Pramipexole Di-HCl 1 MG Tablet PO (22:21)
[2018-10-16] MEDS: Bumetanide 0.5 MG Tablet 1 MG PO (22:22)
[2018-10-17] VITALS (12 sets, daily range): BP systolic 114–136; BP diastolic 69–93; PULSE 80–89; RESP 16–20; TEMP 36.4–36.7; O2SAT 94–98
[2018-10-17] MEDS: hydrALAZINE 25 MG Tablet PO ×3 (05:20→21:03)
[2018-10-17] MEDS: Heparin Injection (Vial) 5,000 UNIT/ML VIAL 5000 UNIT SC ×3 (05:21→21:04)
[2018-10-17] MEDS: Mexiletine 150 MG Capsule PO ×3 (05:21→21:04)
[2018-10-17] MEDS: Levothyroxine 50 MCG Tablet PO (05:21)
[2018-10-17 06:33] LABS: BUN 45 mg/dL (7-18); BUN/Creat Ratio 16.4 RATIO (10-20); Calcium,Total 8.3 mg/dL (8.5-10.1); Creatinine, Serum 2.75 mg/dL (0.70-1.30); EST Glomerular Filtration Rate 24 mL/min (>60); Est Glom Filt Rate - Afr Amer 29 mL/min (>60); Estimated Creatinine Clearance 19.98 ml/min; Glucose 243 mg/dL (74-106); Potassium 5.2 mmol/L (3.5-5.1); Sodium Level 130 mmol/L (136-145)
[2018-10-17 06:34] LABS: Anion Gap 14 (5-15); Chloride 95 mmol/L (98-107)
[2018-10-17] MEDS: Albuterol 2.5 MG/3 ML VIAL.NEB. INHALATION ×4 (07:26→22:59)
[2018-10-17] MEDS: 0.9% Normal Saline 1,000 ML 75 ML IV ×2 (08:03→21:09)
[2018-10-17] MEDS: Isosorbide Mononitrate 60 MG Tablet PO (08:05)
[2018-10-17] MEDS: Azithromycin 250 MG Tablet 500 MG PO (08:06)
[2018-10-17] MEDS: Aspirin E.C. 81 MG Tablet PO (08:06)
[2018-10-17] MEDS: Ranolazine 500 MG Tablet 1000 MG PO ×2 (08:06→21:09)
[2018-10-17] MEDS: guaiFENesin 600 MG Tablet PO ×2 (08:06→21:09)
[2018-10-17] MEDS: levETIRAcetam 1,000 MG Tablet 1000 MG PO ×2 (08:07→21:04)
[2018-10-17] MEDS: Magnesium Oxide 400 MG Tablet PO (08:07)
[2018-10-17] MEDS: Metoprolol(XL)Succ 25 MG Tablet PO (08:10)
--- NOTE | 2018-10-17 09:34 | PN_ITS ---
Patient Problems: Active and Suspected Problems (Last Reviewed 09/24/18 @ 13:39 by Anthony Hyde MD) Bronchitis (Acute) Subjective: Patient is a 78-year-old gentleman with history of paroxysmal A. fib with recent AV libby ablation at [facility] who presented with progressive shortness of breath and a productive cough and assessment of asthmatic bronchitis made admitted to regular nursing floor for further management Objective: GENERAL: cooperative HEENT: Atraumatic; EYES; Anicteric, Normal Conjunctiva NECK; supple, normal thyroid, RESPIRATORY: Diminished to auscultation bilaterally, CARDIOVASCULAR: Regular S1 S2, GI: soft, non-tender, normoactive bowel sounds, : No Renal angle tenderness; EXTREMITIES: no clubbing, no cyanosis. NEURO: Awake; no lateralizing signs. SKIN: No Rash PSYCH; Normal affect Vitals/I&O's: Vital Signs Temp Pulse Resp BP Pulse Ox 98.0 F 81 20 H 123/80 H 98 10/17/18 08:09 10/17/18 08:10 10/17/18 08:09 10/17/18 05:20 10/17/18 08:09 Oxygen Flow Rate (L/min) 2 Oxygen Delivery Method Room Air Weight: 78.925 kg Body Mass Index (BMI) 27.3 Finger Stick Blood Glucose 249 Intake and Output for Last 24 Hours 10/15/18 10/16/18 10/17/18 23:59 23:59 23:59 Intake Total 428 / 428 409 / 409 Output Total 300 / 300 400 / 400 Balance 128 / 128 9 / 9 Laboratory Results 10/16/18 14:00: WBC 9.4, RBC 4.28 L, Hgb 14.2, Hct 42.0, MCV 98.1 H, MCH 33.2 H, MCHC 33.8, RDW 14.2, RDW Differential 50.5 H, Plt Count 192, MPV 9.7, Immature Gran % (Auto) 0.400, Neut % (Auto) 72.6 H, Lymph % (Auto) 14.6 L, [place] % (Auto) 9.8, Eos % (Auto) 2.2, Baso % (Auto) 0.4, Absolute Neuts (auto) 6.8, Absolute Lymphs (auto) 1.37, Total Counted Not Reportable 10/16/18 14:00: Sodium Cancelled, Potassium Cancelled, Chloride Cancelled, Carbon Dioxide Cancelled, Anion Gap Cancelled, BUN Cancelled, Creatinine Cancelled, Estim Creat Clear Calc Cancelled, Est GFR (MDRD) Af Amer Cancelled, Est GFR (MDRD) Non-Af Cancelled, BUN/Creatinine Ratio Cancelled, Glucose Cancelled, Calcium Cancelled, Troponin I Cancelled 10/16/18 15:00: Sodium 130 L, Potassium 4.8, Chloride 94 L, Carbon Dioxide 26.0, Anion Gap 10, BUN 42 H, Creatinine 2.36 H, Estim Creat Clear Calc 24.12, Est GFR (MDRD) Af Amer 34 L, Est GFR (MDRD) Non-Af 29 L, BUN/Creatinine Ratio 17.8, Glucose 150 H, Calcium 8.4 L, Magnesium 2.1, Troponin I 0.022 10/17/18 05:50: Sodium 130 L, Potassium 5.2 H, Chloride 95 L, Carbon Dioxide 21.0, Anion Gap 14, BUN 45 H, Creatinine 2.75 H, Estim Creat Clear Calc 19.98, Est GFR (MDRD) Af Amer 29 L, Est GFR (MDRD) Non-Af 24 L, BUN/Creatinine Ratio 16.4, Glucose 243 H, Calcium 8.3 L Current Medications Acetaminophen (Tylenol) 650 mg PO Q6H PRN PRN PRN Reason: Mild Pain (1-3)/Temp > 100.7 F Albuterol Sulfate (Ventolin Aerosols) 2.5 mg INHALATION Q8H.RT [facility] Last Admin: 10/17/18 07:26 Dose: 2.5 mg Albuterol Sulfate (Ventolin Aerosols) 2.5 mg INHALATION Q2H PRN PRN PRN Reason: DYSPNEA Aspirin (Ecotrin) 81 mg PO DAILY [facility] Last Admin: 10/17/18 08:06 Dose: 81 mg Atorvastatin Calcium (Lipitor) 10 mg PO QHS [facility] Azithromycin (Zithromax) 500 mg PO Q24 [facility] Stop: 10/19/18 06:00 Last Admin: 10/17/18 08:06 Dose: 500 mg Bumetanide (Bumex) 1 mg PO QHS [facility] Last Admin: 10/16/18 22:22 Dose: 1 mg Guaifenesin (Mucinex) 600 mg PO BID [facility] Last Admin: 10/17/18 08:06 Dose: 600 mg Heparin Sodium (Porcine) (Heparin Na) 5,000 unit SC Q8 [facility] Last Admin: 10/17/18 05:21 Dose: 5,000 unit Hydralazine HCl (Apresoline) 25 mg PO TID [facility] Last Admin: 10/17/18 05:20 Dose: 25 mg Sodium Chloride () 1,000 mls @ 75 mls/hr IV .[id number] [facility] Last Admin: 10/17/18 08:03 Dose: 75 mls/hr Isosorbide Mononitrate (Imdur) 60 mg PO DAILY [facility] Last Admin: 10/17/18 08:05 Dose: 60 mg Levetiracetam (Keppra Tablet) 1,000 mg PO BID [facility] Last Admin: 10/17/18 08:07 Dose: 1,000 mg Levothyroxine Sodium (Synthroid) 50 mcg PO DAILY@0600 [facility] Last Admin: 10/17/18 05:21 Dose: 50 mcg Magnesium Oxide (Mag-Ox 400) 400 mg PO DAILY [facility] Last Admin: 10/17/18 08:07 Dose: 400 mg Methylprednisolone (Solu-Medrol) 40 mg IV Q8 [facility] Last Admin: 10/17/18 05:21 Dose: 40 mg Metoprolol Succinate (Toprol Xl (Beta [place])) 25 mg PO DAILY [facility] Last Admin: 10/17/18 08:10 Dose: 25 mg Mexiletine HCl (Mexitil) 150 mg PO TID [facility] Last Admin: 10/17/18 05:21 Dose: 150 mg Nitroglycerin (Nitrostat) 0.4 mg SUBLINGUAL Q5M PRN PRN Reason: Chest Pain Pramipexole Dihydrochloride (Mirapex) 1 mg PO QHS [facility] Last Admin: 10/16/18 22:21 Dose: 1 mg Ranolazine (Ranexa) 1,000 mg PO BID [facility] Last Admin: 10/17/18 08:06 Dose: 1,000 mg Sodium Chloride () 5 - 15 ml IV UD PRN PRN Reason: SALINE FLUSH Medical Necessity - Tobacco Use Smoking Status: Former smoker Tobacco Use: Cigarettes Assessment/Plan All Active Problems (Last Reviewed 09/24/18 @ 13:39 by Anthony Hyde MD) Epiploic appendagitis (Acute) Generalized weakness (Acute) Episode of syncope (Acute) Bronchitis (Acute) Aortocoronary bypass status (Resolved) Subdural hematoma (Resolved) Patient is a 78-year-old gentleman with history of paroxysmal A. fib with recent AV libby ablation at [facility] who presented with progressive shortness of breath and a productive cough and assessment of asthmatic bronchitis made admitted to regular nursing floor for further management 1. Asthmatic bronchitis admitted to regular nursing floor managed with systemic steroids bronchodilator treatment as well as Zithromax in addition to supplemental oxygenation titrated to keep oxygen sats greater than 90 2. Hyperkalemia patient on supplementation discontinued repeat labs ordered for a.m. 3. Hyponatremia chronic monitoring electrolytes 4. Seizure disorder with recent breakthrough seizure patient is on [facility] seizure precautions 5. Paroxysmal A. fib status post recent AV ablation 6. Conduction system disorder status post pacemaker placement 7. CAD status post CABG patient is followed by Dr. Hu 8. Ischemic cardiomyopathy status post AICD placement 9. Dyslipidemia-patient is on statin therapy, continued at home dose 10. Hypertension-blood pressure controlled, home medications continued with dose adjustment as needed 11. Hypothyroidism-patient is on levothyroxine home dose continued 12 Chronic systolic congestive heart failure 13. Obstructive sleep apnea 14. 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 Chronic kidney disease stage IV secondary to diabetic nephropathy 16. DVT prophylaxis SC heparin Active Medications Acetaminophen (Tylenol) 650 mg PO Q6H PRN PRN PRN Reason: Mild Pain (1-3)/Temp > 100.7 F Albuterol Sulfate (Ventolin Aerosols) 2.5 mg INHALATION Q8H.RT [facility] Last Admin: 10/17/18 14:43 Dose: 2.5 mg Albuterol Sulfate (Ventolin Aerosols) 2.5 mg INHALATION Q2H PRN PRN PRN Reason: DYSPNEA Last Admin: 10/17/18 10:09 Dose: 2.5 mg Aspirin (Ecotrin) 81 mg PO DAILY [facility] Last Admin: 10/17/18 08:06 Dose: 81 mg Atorvastatin Calcium (Lipitor) 10 mg PO QHS [facility] Azithromycin (Zithromax) 500 mg PO Q24 [facility] Stop: 10/19/18 06:00 Last Admin: 10/17/18 08:06 Dose: 500 mg Bumetanide (Bumex) 1 mg PO QHS [facility] Last Admin: 10/16/18 22:22 Dose: 1 mg Guaifenesin (Mucinex) 600 mg PO BID [facility] Last Admin: 10/17/18 08:06 Dose: 600 mg Heparin Sodium (Porcine) (Heparin Na) 5,000 unit SC Q8 [facility] Last Admin: 10/17/18 14:05 Dose: 5,000 unit Hydralazine HCl (Apresoline) 25 mg PO TID [facility] Last Admin: 10/17/18 14:04 Dose: 25 mg Sodium Chloride () 1,000 mls @ 75 mls/hr IV .[id number] [facility] Last Admin: 10/17/18 08:03 Dose: 75 mls/hr Isosorbide Mononitrate (Imdur) 60 mg PO DAILY [facility] Last Admin: 10/17/18 08:05 Dose: 60 mg Levetiracetam (Keppra Tablet) 1,000 mg PO BID [facility] Last Admin: 10/17/18 08:07 Dose: 1,000 mg Levothyroxine Sodium (Synthroid) 50 mcg PO DAILY@0600 [facility] Last Admin: 10/17/18 05:21 Dose: 50 mcg Magnesium Oxide (Mag-Ox 400) 400 mg PO DAILY [facility] Last Admin: 10/17/18 08:07 Dose: 400 mg Methylprednisolone (Solu-Medrol) 40 mg IV Q8 [facility] Last Admin: 10/17/18 14:04 Dose: 40 mg Metoprolol Succinate (Toprol Xl (Beta [place])) 25 mg PO DAILY [facility] Last Admin: 10/17/18 08:10 Dose: 25 mg Mexiletine HCl (Mexitil) 150 mg PO TID [facility] Last Admin: 10/17/18 14:04 Dose: 150 mg Nitroglycerin (Nitrostat) 0.4 mg SUBLINGUAL Q5M PRN PRN Reason: Chest Pain Pramipexole Dihydrochloride (Mirapex) 1 mg PO QHS [facility] Last Admin: 10/16/18 22:21 Dose: 1 mg Ranolazine (Ranexa) 1,000 mg PO BID [facility] Last Admin: 10/17/18 08:06 Dose: 1,000 mg Sodium Chloride () 5 - 15 ml IV UD PRN PRN Reason: SALINE FLUSH Clinical Impression(s) from Imaging Studies Chest X-Ray 10/16/18 13:43 IMPRESSION: Hypoinflated lungs which are clear. Electronically Signed: Gene Martell DO at 14:35 EST Tel , Service support , Code Visit OBSV E&M: [id number] Subsequent observation care L3
--- NOTE | 2018-10-17 11:40 | CASEMGMT ---
BEKA GARCIA Face to Face with patient for initial transition planning/care coordination assessment. RN RADHA introduced self and role at [facility]. Patient lying in bed, alert and oriented. Patient willing to participate in assessment and is able to answer all questions appropriately. Care providers, pharmacy, and demographics verified. Patient wishes to discharge to SNF with [facility] as his first choice. Patient states he has no further needs or concerns at this time. TAYLOR Valladares updated with patients request for placement Disposition Plan: SNF pending precert. Aleta RUSSELL, RN, CM
--- NOTE | 2018-10-17 12:27 | CASEMGMT ---
Social Work Note RN RADHA Olson updated this worker that pt is interested in [facility] at discharge. SW placed a call to Argentina Hughes, quality management, to fax referral to [facility]. Plan: [facility] pending acceptance and pre-cert Aleta Valladares AMBULATORY CARE, LEAD REFINERY SUPERVISOR
--- NOTE | 2018-10-17 12:38 | CASEMGMT ---
Per TAYLOR Zaragoza, referral needs sent to [facility] and facility can start pre-cert if able to accept. Call placed to Shaneka at [facility] informing her of same. Referral faxed, confirmation received. Constanza Hughes LPN Clinical Support
[2018-10-17] MEDS: Bumetanide 0.5 MG Tablet 1 MG PO (21:04)
[2018-10-17] MEDS: Atorvastatin Calcium 10 MG Tablet PO (21:04)
[2018-10-17] MEDS: Pramipexole Di-HCl 1 MG Tablet PO (21:09)
[2018-10-18] VITALS (13 sets, daily range): BP systolic 114–125; BP diastolic 72–86; PULSE 80–99; RESP 16–18; TEMP 36.5–37.1; O2SAT 95–100
[2018-10-18] MEDS: Heparin Injection (Vial) 5,000 UNIT/ML VIAL 5000 UNIT SC ×3 (05:01→21:25)
[2018-10-18] MEDS: hydrALAZINE 25 MG Tablet PO ×3 (05:01→21:24)
[2018-10-18] MEDS: Levothyroxine 50 MCG Tablet PO (05:01)
[2018-10-18] MEDS: Mexiletine 150 MG Capsule PO ×3 (05:01→21:27)
[2018-10-18] MEDS: Albuterol 2.5 MG/3 ML VIAL.NEB. INHALATION ×3 (06:39→22:36)
--- NOTE | 2018-10-18 09:08 | CASEMGMT ---
Addendum entered by Aleta Valladares 10/18/18 12:50: SW faxed updated clinicals to [facility]. Original Note: Addendum entered by Aleta Valladares 10/18/18 09:35: TAYLOR spoke with Shaneka at [facility]. Per Shaneka onsite is no longer needed as ELSY did make mistake regarding SI. Shaneka states she submitted for pre-cert yesterday. Original Note: Social Work Note Argentina Hughes, quality management, updated this worker that [facility] had left her a message stating DON had mentioned pt had suicidal ideations and [facility] was coming to do an onsite today. TAYLOR placed a call to Shaneka at [facility] and left her a message informing her that this worker had not been aware of pt having any suicidal ideations and this worker reviewed notes and didn't see any mention of suicidal ideations. also asked Shaneka if they will also be doing an onsite still with pt. SW waiting for call back. Plan: [facility] pending pre-cert Aleta Valladares CATTLE DEALER, ASSEMBLY LOADER
[2018-10-18] MEDS: 0.9% Normal Saline 1,000 ML 75 ML IV ×2 (10:30→23:30)
[2018-10-18] MEDS: levETIRAcetam 1,000 MG Tablet 1000 MG PO ×2 (10:30→21:26)
[2018-10-18] MEDS: Ranolazine 500 MG Tablet 1000 MG PO ×2 (10:31→21:27)
[2018-10-18] MEDS: Azithromycin 250 MG Tablet 500 MG PO (10:32)
[2018-10-18] MEDS: guaiFENesin 600 MG Tablet PO ×2 (10:32→21:27)
[2018-10-18] MEDS: Aspirin E.C. 81 MG Tablet PO (10:32)
[2018-10-18] MEDS: Magnesium Oxide 400 MG Tablet PO (10:32)
[2018-10-18] MEDS: Metoprolol(XL)Succ 25 MG Tablet PO (10:32)
[2018-10-18] MEDS: Isosorbide Mononitrate 60 MG Tablet PO (10:32)
--- NOTE | 2018-10-18 12:30 | PCM.PN.HOSP ---
Patient Problems: Active and Suspected Problems (Last Reviewed 09/24/18 @ 13:39 by Anthony Hyde MD) Bronchitis (Acute) Subjective: Patient seen admit to significant improvement in his generalized weakness which was present when he first presented to the hospital. Awaiting insurance precertification prior to transfer to a group home facility Objective: GENERAL: cooperative HEENT: Atraumatic; EYES; Anicteric, Normal Conjunctiva NECK; supple, normal thyroid, RESPIRATORY: Diminished to auscultation bilaterally, CARDIOVASCULAR: Regular S1 S2, GI: soft, non-tender, normoactive bowel sounds, : No Renal angle tenderness; EXTREMITIES: no clubbing, no cyanosis. NEURO: Awake; no lateralizing signs. SKIN: No Rash PSYCH; Normal affect Vitals/I&O's: Vital Signs Temp Pulse Resp BP Pulse Ox 98.0 F 80 16 116/84 H 99 10/18/18 10:19 10/18/18 10:32 10/18/18 10:21 10/18/18 10:19 10/18/18 10:19 Oxygen Flow Rate (L/min) 2 Oxygen Delivery Method Room Air Weight: 78.9 kg Body Mass Index (BMI) 27.3 Finger Stick Blood Glucose 249 Intake and Output for Last 24 Hours 10/16/18 10/17/18 10/18/18 23:59 23:59 23:59 Intake Total 428 / 428 2059 / 2059 859 / 859 Output Total 300 / 300 400 / 400 1275 / 1275 Balance 128 / 128 1659 / 1659 -416 / -416 Current Medications Acetaminophen (Tylenol) 650 mg PO Q6H PRN PRN PRN Reason: Mild Pain (1-3)/Temp > 100.7 F Albuterol Sulfate (Ventolin Aerosols) 2.5 mg INHALATION Q8H.RT [facility] Last Admin: 10/18/18 06:39 Dose: 2.5 mg Albuterol Sulfate (Ventolin Aerosols) 2.5 mg INHALATION Q2H PRN PRN PRN Reason: DYSPNEA Last Admin: 10/17/18 10:09 Dose: 2.5 mg Aspirin (Ecotrin) 81 mg PO DAILY [facility] Last Admin: 10/18/18 10:32 Dose: 81 mg Atorvastatin Calcium (Lipitor) 10 mg PO QHS [facility] Last Admin: 10/17/18 21:04 Dose: 10 mg Azithromycin (Zithromax) 500 mg PO Q24 [facility] Stop: 10/19/18 06:00 Last Admin: 10/18/18 10:32 Dose: 500 mg Bumetanide (Bumex) 1 mg PO QHS [facility] Last Admin: 10/17/18 21:04 Dose: 1 mg Guaifenesin (Mucinex) 600 mg PO BID [facility] Last Admin: 10/18/18 10:32 Dose: 600 mg Heparin Sodium (Porcine) (Heparin Na) 5,000 unit SC Q8 [facility] Last Admin: 10/18/18 05:01 Dose: 5,000 unit Hydralazine HCl (Apresoline) 25 mg PO TID [facility] Last Admin: 10/18/18 05:01 Dose: 25 mg Sodium Chloride () 1,000 mls @ 75 mls/hr IV .[id number] [facility] Last Admin: 10/18/18 10:30 Dose: 75 mls/hr Isosorbide Mononitrate (Imdur) 60 mg PO DAILY [facility] Last Admin: 10/18/18 10:32 Dose: 60 mg Levetiracetam (Keppra Tablet) 1,000 mg PO BID [facility] Last Admin: 10/18/18 10:30 Dose: 1,000 mg Levothyroxine Sodium (Synthroid) 50 mcg PO DAILY@0600 [facility] Last Admin: 10/18/18 05:01 Dose: 50 mcg Magnesium Oxide (Mag-Ox 400) 400 mg PO DAILY [facility] Last Admin: 10/18/18 10:32 Dose: 400 mg Methylprednisolone (Solu-Medrol) 40 mg IV Q8 [facility] Last Admin: 10/18/18 05:02 Dose: 40 mg Metoprolol Succinate (Toprol Xl (Beta Mahogany)) 25 mg PO DAILY [facility] Last Admin: 10/18/18 10:32 Dose: 25 mg Mexiletine HCl (Mexitil) 150 mg PO TID [facility] Last Admin: 10/18/18 05:01 Dose: 150 mg Nitroglycerin (Nitrostat) 0.4 mg SUBLINGUAL Q5M PRN PRN Reason: Chest Pain Pramipexole Dihydrochloride (Mirapex) 1 mg PO QHS [facility] Last Admin: 10/17/18 21:09 Dose: 1 mg Promethazine HCl (Phenergan) 12.5 mg IM Q6H PRN PRN PRN Reason: NAUSEA/VOMITING Ranolazine (Ranexa) 1,000 mg PO BID [facility] Last Admin: 10/18/18 10:31 Dose: 1,000 mg Sodium Chloride () 5 - 15 ml IV UD PRN PRN Reason: SALINE FLUSH Medical Necessity - Tobacco Use Smoking Status: Former smoker Tobacco Use: Cigarettes Assessment/Plan All Active Problems (Last Reviewed 09/24/18 @ 13:39 by Anthony Hyde MD) Epiploic appendagitis (Acute) Generalized weakness (Acute) Episode of syncope (Acute) Bronchitis (Acute) Aortocoronary bypass status (Resolved) Subdural hematoma (Resolved) Patient is a 78-year-old gentleman with history of paroxysmal A. fib with recent AV libby ablation at [facility] who presented with progressive shortness of breath and a productive cough and assessment of asthmatic bronchitis made admitted to regular nursing floor for further management 1. Asthmatic bronchitis admitted to regular nursing floor managed with systemic steroids bronchodilator treatment as well as Zithromax in addition to supplemental oxygenation titrated to keep oxygen sats greater than 90 patient improving clinically 2. Hyperkalemia patient on supplementation discontinued repeat labs ordered for a.m. 3. Hyponatremia chronic monitoring electrolytes 4. Seizure disorder with recent breakthrough seizure patient is on [facility] institute seizure precautions 5. Paroxysmal A. fib status post recent AV ablation 6. Conduction system disorder status post pacemaker placement 7. CAD status post CABG patient is followed by Dr. Hu 8. Ischemic cardiomyopathy status post AICD placement 9. Dyslipidemia-patient is on statin therapy, continued at home dose 10. Hypertension-blood pressure controlled, home medications continued with dose adjustment as needed 11. Hypothyroidism-patient is on levothyroxine home dose continued 12 Chronic systolic congestive heart failure 13. Obstructive sleep apnea 14. 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 Chronic kidney disease stage IV secondary to diabetic nephropathy 16. DVT prophylaxis SC heparin Code Visit Inpatient E&M: 07863 Subs Hosp L2
--- NOTE | 2018-10-18 12:33 | PN_ITS ---
Patient Problems: Active and Suspected Problems (Last Reviewed 09/24/18 @ 13:39 by Anthony Hyde MD) Bronchitis (Acute) Subjective: Patient seen admit to significant improvement in his generalized weakness which was present when he first presented to the hospital. Awaiting insurance precertification prior to transfer to a correction facility Objective: GENERAL: cooperative HEENT: Atraumatic; EYES; Anicteric, Normal Conjunctiva NECK; supple, normal thyroid, RESPIRATORY: Diminished to auscultation bilaterally, CARDIOVASCULAR: Regular S1 S2, GI: soft, non-tender, normoactive bowel sounds, : No Renal angle tenderness; EXTREMITIES: no clubbing, no cyanosis. NEURO: Awake; no lateralizing signs. SKIN: No Rash PSYCH; Normal affect Vitals/I&O's: Vital Signs Temp Pulse Resp BP Pulse Ox 98.0 F 80 16 116/84 H 99 10/18/18 10:19 10/18/18 10:32 10/18/18 10:21 10/18/18 10:19 10/18/18 10:19 Oxygen Flow Rate (L/min) 2 Oxygen Delivery Method Room Air Weight: 78.9 kg Body Mass Index (BMI) 27.3 Finger Stick Blood Glucose 249 Intake and Output for Last 24 Hours 10/16/18 10/17/18 10/18/18 23:59 23:59 23:59 Intake Total 428 / 428 2059 / 2059 859 / 859 Output Total 300 / 300 400 / 400 1275 / 1275 Balance 128 / 128 1659 / 1659 -416 / -416 Current Medications Acetaminophen (Tylenol) 650 mg PO Q6H PRN PRN PRN Reason: Mild Pain (1-3)/Temp > 100.7 F Albuterol Sulfate (Ventolin Aerosols) 2.5 mg INHALATION Q8H.RT [facility] Last Admin: 10/18/18 06:39 Dose: 2.5 mg Albuterol Sulfate (Ventolin Aerosols) 2.5 mg INHALATION Q2H PRN PRN PRN Reason: DYSPNEA Last Admin: 10/17/18 10:09 Dose: 2.5 mg Aspirin (Ecotrin) 81 mg PO DAILY [facility] Last Admin: 10/18/18 10:32 Dose: 81 mg Atorvastatin Calcium (Lipitor) 10 mg PO QHS [facility] Last Admin: 10/17/18 21:04 Dose: 10 mg Azithromycin (Zithromax) 500 mg PO Q24 [facility] Stop: 10/19/18 06:00 Last Admin: 10/18/18 10:32 Dose: 500 mg Bumetanide (Bumex) 1 mg PO QHS [facility] Last Admin: 10/17/18 21:04 Dose: 1 mg Guaifenesin (Mucinex) 600 mg PO BID [facility] Last Admin: 10/18/18 10:32 Dose: 600 mg Heparin Sodium (Porcine) (Heparin Na) 5,000 unit SC Q8 [facility] Last Admin: 10/18/18 05:01 Dose: 5,000 unit Hydralazine HCl (Apresoline) 25 mg PO TID [facility] Last Admin: 10/18/18 05:01 Dose: 25 mg Sodium Chloride () 1,000 mls @ 75 mls/hr IV .[id number] [facility] Last Admin: 10/18/18 10:30 Dose: 75 mls/hr Isosorbide Mononitrate (Imdur) 60 mg PO DAILY [facility] Last Admin: 10/18/18 10:32 Dose: 60 mg Levetiracetam (Keppra Tablet) 1,000 mg PO BID [facility] Last Admin: 10/18/18 10:30 Dose: 1,000 mg Levothyroxine Sodium (Synthroid) 50 mcg PO DAILY@0600 [facility] Last Admin: 10/18/18 05:01 Dose: 50 mcg Magnesium Oxide (Mag-Ox 400) 400 mg PO DAILY [facility] Last Admin: 10/18/18 10:32 Dose: 400 mg Methylprednisolone (Solu-Medrol) 40 mg IV Q8 [facility] Last Admin: 10/18/18 05:02 Dose: 40 mg Metoprolol Succinate (Toprol Xl (Beta Mahogany)) 25 mg PO DAILY [facility] Last Admin: 10/18/18 10:32 Dose: 25 mg Mexiletine HCl (Mexitil) 150 mg PO TID [facility] Last Admin: 10/18/18 05:01 Dose: 150 mg Nitroglycerin (Nitrostat) 0.4 mg SUBLINGUAL Q5M PRN PRN Reason: Chest Pain Pramipexole Dihydrochloride (Mirapex) 1 mg PO QHS [facility] Last Admin: 10/17/18 21:09 Dose: 1 mg Promethazine HCl (Phenergan) 12.5 mg IM Q6H PRN PRN PRN Reason: NAUSEA/VOMITING Ranolazine (Ranexa) 1,000 mg PO BID [facility] Last Admin: 10/18/18 10:31 Dose: 1,000 mg Sodium Chloride () 5 - 15 ml IV UD PRN PRN Reason: SALINE FLUSH Medical Necessity - Tobacco Use Smoking Status: Former smoker Tobacco Use: Cigarettes Assessment/Plan All Active Problems (Last Reviewed 09/24/18 @ 13:39 by Anthony Hyde MD) Epiploic appendagitis (Acute) Generalized weakness (Acute) Episode of syncope (Acute) Bronchitis (Acute) Aortocoronary bypass status (Resolved) Subdural hematoma (Resolved) Patient is a 78-year-old gentleman with history of paroxysmal A. fib with recent AV libby ablation at [facility] who presented with progressive shortness of breath and a productive cough and assessment of asthmatic bronchitis made admitted to regular nursing floor for further management 1. Asthmatic bronchitis admitted to regular nursing floor managed with systemic steroids bronchodilator treatment as well as Zithromax in addition to supplem ental oxygenation titrated to keep oxygen sats greater than 90 patient improving clinically 2. Hyperkalemia patient on supplementation discontinued repeat labs ordered for a.m. 3. Hyponatremia chronic monitoring electrolytes 4. Seizure disorder with recent breakthrough seizure patient is on [facility] institute seizure precautions 5. Paroxysmal A. fib status post recent AV ablation 6. Conduction system disorder status post pacemaker placement 7. CAD status post CABG patient is followed by Dr. Hu 8. Ischemic cardiomyopathy status post AICD placement 9. Dyslipidemia-patient is on statin therapy, continued at home dose 10. Hypertension-blood pressure controlled, home medications continued with dose adjustment as needed 11. Hypothyroidism-patient is on levothyroxine home dose continued 12 Chronic systolic congestive heart failure 13. Obstructive sleep apnea 14. 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 Chronic kidney disease stage IV secondary to diabetic nephropathy 16. DVT prophylaxis SC heparin Code Visit Inpatient E&M: 00739 Subs Hosp L2
[2018-10-18 14:00] LABS: Anion Gap 14 (5-15); BUN 53 mg/dL (7-18); BUN/Creat Ratio 22.3 RATIO (10-20); Calcium,Total 7.8 mg/dL (8.5-10.1); Chloride 100 mmol/L (98-107); Creatinine, Serum 2.38 mg/dL (0.70-1.30); EST Glomerular Filtration Rate 28 mL/min (>60); Est Glom Filt Rate - Afr Amer 34 mL/min (>60); Estimated Creatinine Clearance 23.08 ml/min; Glucose 441 mg/dL (74-106); Magnesium 2.3 mg/dL (1.6-2.6); Potassium 3.9 mmol/L (3.5-5.1); Sodium Level 131 mmol/L (136-145)
--- NOTE | 2018-10-18 14:15 | CASEMGMT ---
Addendum entered by Aleta Valladares 10/18/18 15:08: SW met with pt and pt's and updated on acceptance into [facility]. Per pt's , [facility] is there last choice and wanted to know additional choices. SW explained that RN RADHA met with pt yesterday and pt had mentioned that [facility] was his first choice and a referral was sent to [facility]. Pt's states pt was looney yesterday. SW explained that [facility] has already accepted and already submitted for pre-cert yesterday. SW explained that if pre-cert was to get cancelled and resubmitted, pt may get denied. Pt and pt's agreeable with staying with [facility]. SW explained that if pt goes to [facility] and doesn't like it, pt can always go to a different SNF from [facility]. Pt and pt's state understanding. SW explained that pre-cert is needing to be obtained. Original Note: Social Work Note SW spoke with Shaneka at [facility]. Per Sahneka she hasn't heard from pt's insurance yet. Plan: [facility] pending pre-cert Aleta Valladares CALL CENTER TRAINER, [employer]
[2018-10-18] MEDS: Bumetanide 0.5 MG Tablet 1 MG PO (21:25)
[2018-10-18] MEDS: Atorvastatin Calcium 10 MG Tablet PO (21:26)
[2018-10-18] MEDS: Pramipexole Di-HCl 1 MG Tablet PO (21:27)
[2018-10-19] VITALS (12 sets, daily range): BP systolic 118–140; BP diastolic 72–85; PULSE 79–84; RESP 16–26; TEMP 36.4–37.2; O2SAT 94–98
[2018-10-19] MEDS: Mexiletine 150 MG Capsule PO ×3 (05:50→21:46)
[2018-10-19] MEDS: hydrALAZINE 25 MG Tablet PO ×3 (05:50→21:45)
[2018-10-19] MEDS: Levothyroxine 50 MCG Tablet PO (05:50)
[2018-10-19] MEDS: Heparin Injection (Vial) 5,000 UNIT/ML VIAL 5000 UNIT SC ×3 (05:51→21:49)
[2018-10-19] MEDS: Albuterol 2.5 MG/3 ML VIAL.NEB. INHALATION ×4 (07:16→23:52)
--- NOTE | 2018-10-19 07:37 | PCM.PN.HOSP ---
Patient Problems: Active and Suspected Problems (Last Reviewed 09/24/18 @ 13:39 by Anthony Hyde MD) Bronchitis (Acute) Subjective: Patient seen, resting comfortably. His blood sugars markedly elevated. Did adjust patient steroid dose. Was also started on insulin sliding scale Objective: GENERAL: cooperative HEENT: Atraumatic; EYES; Anicteric, Normal Conjunctiva NECK; supple, normal thyroid, RESPIRATORY: Diminished to auscultation bilaterally, CARDIOVASCULAR: Regular S1 S2, GI: soft, non-tender, normoactive bowel sounds, : No Renal angle tenderness; EXTREMITIES: no clubbing, no cyanosis. NEURO: Awake; no lateralizing signs. SKIN: No Rash PSYCH; Normal affect Vitals/I&O's: Vital Signs Temp Pulse Resp BP Pulse Ox 97.8 F 82 16 118/81 H 98 10/19/18 04:20 10/19/18 07:16 10/19/18 07:16 10/19/18 04:20 10/19/18 04:20 Oxygen Flow Rate (L/min) 2 Oxygen Delivery Method CPAP Weight: 78.9 kg Body Mass Index (BMI) 27.3 Finger Stick Blood Glucose 249 Intake and Output for Last 24 Hours 10/17/18 10/18/18 10/19/18 23:59 23:59 23:59 Intake Total 2059 / 2059 859 / 859 2224 / 2224 Output Total 400 / 400 1275 / 1275 1130 / 1130 Balance 1659 / 1659 -416 / -416 1094 / 1094 Laboratory Results 10/18/18 13:23: Sodium 131 L, Potassium 3.9, Chloride 100, Carbon Dioxide 17.0 L, Anion Gap 14, BUN 53 H, Creatinine 2.38 H, Estim Creat Clear Calc 23.08, Est GFR (MDRD) Af Amer 34 L, Est GFR (MDRD) Non-Af 28 L, BUN/Creatinine Ratio 22.3 H, Glucose 441 H, Calcium 7.8 L, Magnesium 2.3 10/19/18 06:42: Sodium Pending, Potassium Pending, Chloride Pending, Carbon Dioxide Pending, Anion Gap Pending, BUN Pending, Creatinine Pending, Est GFR (MDRD) Af Amer Pending, Est GFR (MDRD) Non-Af Pending, BUN/Creatinine Ratio Pending, Glucose Pending, Calcium Pending Current Medications Acetaminophen (Tylenol) 650 mg PO Q6H PRN PRN PRN Reason: Mild Pain (1-3)/Temp > 100.7 F Albuterol Sulfate (Ventolin Aerosols) 2.5 mg INHALATION Q8H.RT COUNTS [facility]CLUDE 234 BEDS AT [facility] Last Admin: 10/19/18 07:16 Dose: 2.5 mg Albuterol Sulfate (Ventolin Aerosols) 2.5 mg INHALATION Q2H PRN PRN PRN Reason: DYSPNEA Last Admin: 10/17/18 10:09 Dose: 2.5 mg Aspirin (Ecotrin) 81 mg PO DAILY [facility] 234 BEDS AT [facility] Last Admin: 10/18/18 10:32 Dose: 81 mg Atorvastatin Calcium (Lipitor) 10 mg PO QHS [facility]S AT [facility] Last Admin: 10/18/18 21:26 Dose: 10 mg Bumetanide (Bumex) 1 mg PO QHS [facility]S [facility] Last Admin: 10/18/18 21:25 Dose: 1 mg Guaifenesin (Mucinex) 600 mg PO BID [facility]S [facility] Last Admin: 10/18/18 21:27 Dose: 600 mg Heparin Sodium (Porcine) (Heparin Na) 5,000 unit SC Q8 [facility]S [facility] Last Admin: 10/19/18 05:51 Dose: 5,000 unit Hydralazine HCl (Apresoline) 25 mg PO TID [facility]S [facility] Last Admin: 10/19/18 05:50 Dose: 25 mg Sodium Chloride () 1,000 mls @ 75 mls/hr IV .[id number] [facility] 234 BEDS [facility] Last Admin: 10/18/18 23:30 Dose: 75 mls/hr Isosorbide Mononitrate (Imdur) 60 mg PO DAILY [facility] 234 B[facility]S [facility] Last Admin: 10/18/18 10:32 Dose: 60 mg Levetiracetam (Keppra Tablet) 1,000 mg PO BID [facility] 234 [facility]S [facility] Last Admin: 10/18/18 21:26 Dose: 1,000 mg Levothyroxine Sodium (Synthroid) 50 mcg PO DAILY@0600 [facility] 234 BEDS AT [facility] Last Admin: 10/19/18 05:50 Dose: 50 mcg Magnesium Oxide (Mag-Ox 400) 400 mg PO DAILY [facility] 234 BEDS AT [facility] Last Admin: 10/18/18 10:32 Dose: 400 mg Metoprolol Succinate (Toprol Xl (Beta Mahogany)) 25 mg PO DAILY [facility] 234 BEDS AT [facility] Last Admin: 10/18/18 10:32 Dose: 25 mg Mexiletine HCl (Mexitil) 150 mg PO TID [facility] 234 BEDS AT [facility] Last Admin: 10/19/18 05:50 Dose: 150 mg Nitroglycerin (Nitrostat) 0.4 mg SUBLINGUAL Q5M PRN PRN Reason: Chest Pain Pramipexole Dihydrochloride (Mirapex) 1 mg PO QHS [facility] 234 BEDS AT [facility] Last Admin: 10/18/18 21:27 Dose: 1 mg Promethazine HCl (Phenergan) 12.5 mg IM Q6H PRN PRN PRN Reason: NAUSEA/VOMITING Ranolazine (Ranexa) 1,000 mg PO BID [facility] 234 BEDS AT [facility] Last Admin: 10/18/18 21:27 Dose: 1,000 mg Sodium Chloride () 5 - 15 ml IV UD PRN PRN Reason: SALINE FLUSH Medical Necessity - Tobacco Use Smoking Status: Former smoker Tobacco Use: Cigarettes Assessment/Plan All Active Problems (Last Reviewed 09/24/18 @ 13:39 by Anthony Hyde MD) Epiploic appendagitis (Acute) Generalized weakness (Acute) Episode of syncope (Acute) Bronchitis (Acute) Aortocoronary bypass status (Resolved) Subdural hematoma (Resolved) Patient is a 78-year-old gentleman with history of paroxysmal A. fib with recent AV libby ablation at [facility] who presented with progressive shortness of breath and a productive cough and assessment of asthmatic bronchitis made admitted to regular nursing floor for further management 1. Asthmatic bronchitis admitted to regular nursing floor managed with systemic steroids bronchodilator treatment as well as Zithromax in addition to supplemental oxygenation titrated to keep oxygen sats greater than 90 patient improving clinically did wean down patient steroid dose 2. 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 Hyponatremia chronic monitoring electrolytes 4. Seizure disorder with recent breakthrough seizure patient is on [facility] institute seizure precautions 5. Paroxysmal A. fib status post recent AV ablation 6. Conduction system disorder status post pacemaker placement 7. CAD status post CABG patient is followed by Dr. Hu 8. Ischemic cardiomyopathy status post AICD placement 9. Dyslipidemia-patient is on statin therapy, continued at home dose 10. Hypertension-blood pressure controlled, home medications continued with dose adjustment as needed 11. Hypothyroidism-patient is on levothyroxine home dose continued 12 Chronic systolic congestive heart failure 13. Obstructive sleep apnea uses CPAP at night 14. Hyperkalemia patient on supplementation discontinued repeat labs ordered for a.m. 15. Chronic kidney disease stage IV secondary to diabetic nephropathy 16. DVT prophylaxis SC heparin Advance planning; did discuss with the patient and family regarding his advanced directives as well as CODE STATUS. Did explain the various modalities involved ( FULL CODE, DNR CCA, DNR CCA with no intubation, and DNR CC ) patient elected to remain full code. Order was placed. Time spent on discussion 20 minutes. Code Visit Inpatient E&M: [id number] Subs Hosp L2 Procedures: 14445 Advncd Care Plan 30 Min
[2018-10-19 07:42] LABS: Anion Gap 13 (5-15); BUN 48 mg/dL (7-18); BUN/Creat Ratio 23.5 RATIO (10-20); Calcium,Total 8.1 mg/dL (8.5-10.1); Chloride 99 mmol/L (98-107); Creatinine, Serum 2.04 mg/dL (0.70-1.30); EST Glomerular Filtration Rate 34 mL/min (>60); Est Glom Filt Rate - Afr Amer 41 mL/min (>60); Estimated Creatinine Clearance 26.93 ml/min; Glucose 422 mg/dL (74-106); Potassium 3.7 mmol/L (3.5-5.1); Sodium Level 132 mmol/L (136-145)
[2018-10-19 09:02] LABS: Hemoglobin A1c 8.1 % (4.2-6.3)
[2018-10-19] MEDS: guaiFENesin 600 MG Tablet PO ×2 (10:18→21:46)
[2018-10-19] MEDS: Metoprolol(XL)Succ 25 MG Tablet PO (10:18)
[2018-10-19] MEDS: Ranolazine 500 MG Tablet 1000 MG PO ×2 (10:18→21:47)
[2018-10-19] MEDS: Isosorbide Mononitrate 60 MG Tablet PO (10:19)
[2018-10-19] MEDS: Magnesium Oxide 400 MG Tablet PO (10:19)
[2018-10-19] MEDS: levETIRAcetam 1,000 MG Tablet 1000 MG PO ×2 (10:20→21:46)
[2018-10-19] MEDS: Aspirin E.C. 81 MG Tablet PO (10:20)
--- NOTE | 2018-10-19 11:25 | NURSING ---
THIS NURSE IN TO GET BLOOD SUGAR PER ORDERS. GLUCOMETER IS READING THE WORDS HI. LAB CALLED FOR LAB BACK UP AND ORDER PUT IN. WAITING ON LAB TO GET HERE.
[2018-10-19] MEDS: predniSONE 20 MG Tablet PO ×2 (11:26→18:27)
[2018-10-19 11:40] LABS: Bedside Glucose > 500 mg/dL (70-110)
[2018-10-19 12:05] LABS: Glucose 602 mg/dL (74-106)
[2018-10-19] MEDS: 0.9% Normal Saline 1,000 ML 75 ML IV (13:18)
[2018-10-19] MEDS: Insulin Lispro 100 UNIT/ML INSULN.PEN 15 UNIT SC (13:19)
--- NOTE | 2018-10-19 15:36 | NURSING ---
Blood Sugar is 528. Will notify Dr. Rodriguez.
[2018-10-19 15:46] LABS: Bedside Glucose > 500 mg/dL (70-110)
--- NOTE | 2018-10-19 16:03 | NURSING ---
Checked Blood sugar and it was 528. Sliding Scale Coverage only goes up to 449. This nurse talked with Dr. Rodriguez and made aware. Order For Novolog 20 units x1 to be given.
[2018-10-19] MEDS: Insulin Lispro 100 UNIT/ML INSULN.PEN 20 UNIT SC (16:17)
[2018-10-19] MEDS: Magnesium Citrate 300 ML PO (18:27)
[2018-10-19] MEDS: Ondansetron 4 MG/2 ML Vial IV (18:27)
[2018-10-19 18:46] LABS: Bedside Glucose 379 mg/dL (70-110)
[2018-10-19] MEDS: Bumetanide 0.5 MG Tablet 1 MG PO (21:45)
[2018-10-19] MEDS: Pramipexole Di-HCl 1 MG Tablet PO (21:46)
[2018-10-19] MEDS: Atorvastatin Calcium 10 MG Tablet PO (21:46)
[2018-10-19] MEDS: Insulin Lispro 100 UNIT/ML INSULN.PEN SQ (21:50)
[2018-10-19 22:01] LABS: Bedside Glucose 277 mg/dL (70-110)
--- NOTE | 2018-10-20 01:05 | PCA ---
this DAY CAMP UNIT LEADER responded to patient's call light. this DAY CAMP UNIT LEADER found patient laying across the middle of the bed on his stomach, staff assist light turned on and this DAY CAMP UNIT LEADER called primer charger Carol. patient states he stood to try to wipe himself and got weak so he laid across the bed and placed his call light on. assisted patient with josette care and helped patient get into bed. patient states he did not fall but that he laid himself down across the bed when he could no longer stand to wipe self.
[2018-10-20] MEDS: 0.9% Normal Saline 1,000 ML 75 ML IV (01:26)
[2018-10-20 01:41] LABS: Bedside Glucose 209 mg/dL (70-110)
[2018-10-20 02:09] VITALS: BP 122/80; PULSE 81; RESP 18; TEMP 36.8; O2SAT 97
[2018-10-20 06:36] VITALS: BP 120/76; PULSE 81; PULSE 86; RESP 18; O2SAT 98
[2018-10-20] MEDS: Albuterol 2.5 MG/3 ML VIAL.NEB. INHALATION ×2 (06:36→11:23)
[2018-10-20 06:40] VITALS: BP 120/76; PULSE 86
[2018-10-20] MEDS: Levothyroxine 50 MCG Tablet PO (06:40)
[2018-10-20] MEDS: Mexiletine 150 MG Capsule PO (06:40)
[2018-10-20] MEDS: hydrALAZINE 25 MG Tablet PO (06:40)
[2018-10-20] MEDS: Insulin Lispro 100 UNIT/ML INSULN.PEN SQ ×2 (06:45→11:27)
[2018-10-20] MEDS: Heparin Injection (Vial) 5,000 UNIT/ML VIAL 5000 UNIT SC (06:47)
[2018-10-20 06:56] LABS: Bedside Glucose 254 mg/dL (70-110)
--- NOTE | 2018-10-20 07:30 | PN_ITS ---
Patient Problems: Active and Suspected Problems (Last Reviewed 09/24/18 @ 13:39 by Anthony Hyde MD) Bronchitis (Acute) Subjective: Patient seen complains of feeling tired. Patient has also not had any bowel movement since admission. Patient was placed on scheduled senna 1 tablet p.o. twice daily he was also administered with magnesium citrate. Creatinine significantly improved to 1.58 this a.m. from a level of 2.36 on admission. Patient however has a persistent cough his hyperglycemia which persisted the day prior has improved. His steroid dose subsequently decreased. Objective: GENERAL: cooperative HEENT: Atraumatic; EYES; Anicteric, Normal Conjunctiva NECK; supple, normal thyroid, RESPIRATORY: Diminished to auscultation bilaterally, occasional rhonchi CARDIOVASCULAR: Regular S1 S2, GI: soft, non-tender, normoactive bowel sounds, : No Renal angle tenderness; EXTREMITIES: no clubbing, no cyanosis. NEURO: Awake; no lateralizing signs. SKIN: No Rash PSYCH; Normal affect Vitals/I&O's: Vital Signs Temp Pulse Resp BP Pulse Ox 98.2 F 86 18 120/76 98 10/20/18 02:09 10/20/18 06:40 10/20/18 06:36 10/20/18 06:40 10/20/18 06:36 Oxygen Flow Rate (L/min) 2 Oxygen Delivery Method Room Air Weight: 78.9 kg Body Mass Index (BMI) 27.3 Finger Stick Blood Glucose 249 Intake and Output for Last 24 Hours 10/18/18 10/19/18 10/20/18 23:59 23:59 23:59 Intake Total 859 / 859 3805 / 3805 509 / 509 Output Total 1275 / 1275 2080 / 2080 200 / 200 Balance -416 / -416 1725 / 1725 309 / 309 Laboratory Results 10/19/18 06:42: Sodium 132 L, Potassium 3.7, Chloride 99, Carbon Dioxide 20.0 L, Anion Gap 13, BUN 48 H, Creatinine 2.04 H, Estim Creat Clear Calc 26.93, Est GFR (MDRD) Af Amer 41 L, Est GFR (MDRD) Non-Af 34 L, BUN/Creatinine Ratio 23.5 H, Glucose 422 H, Calcium 8.1 L 10/19/18 08:35: Hemoglobin A1c 8.1 H 10/19/18 11:23: POC Glucose > 500 H* 10/19/18 11:36: Glucose 602 H* 10/19/18 15:35: POC Glucose > 500 H* 10/19/18 18:30: POC Glucose 379 H 10/19/18 21:39: POC Glucose 277 H 10/20/18 01:32: POC Glucose 209 H 10/20/18 05:35: Sodium Pending, Potassium Pending, Chloride Pending, Carbon Dioxide Pending, Anion Gap Pending, BUN Pending, Creatinine Pending, Est GFR (MDRD) Af Amer Pending, Est GFR (MDRD) Non-Af Pending, BUN/Creatinine Ratio Pending, Glucose Pending, Calcium Pending 10/20/18 06:43: POC Glucose 254 H Current Medications Acetaminophen (Tylenol) 650 mg PO Q6H PRN PRN PRN Reason: Mild Pain (1-3)/Temp > 100.7 F Albuterol Sulfate (Ventolin Aerosols) 2.5 mg INHALATION Q8H.RT [facility] Last Admin: 10/20/18 06:36 Dose: 2.5 mg Albuterol Sulfate (Ventolin Aerosols) 2.5 mg INHALATION Q2H PRN PRN PRN Reason: DYSPNEA Last Admin: 10/19/18 18:41 Dose: 2.5 mg Aspirin (Ecotrin) 81 mg PO DAILY [facility] Last Admin: 10/19/18 10:20 Dose: 81 mg Atorvastatin Calcium (Lipitor) 10 mg PO QHS [facility] Last Admin: 10/19/18 21:46 Dose: 10 mg Bumetanide (Bumex) 1 mg PO QHS [facility] Last Admin: 10/19/18 21:45 Dose: 1 mg Dextrose (D50w Syringe) 0 gm IV X1 PRN; Protocol PRN Reason: Hypoglycemia Glucagon () 1 mg IM .X1 PRN PRN Reason: Hypoglycemia Guaifenesin (Mucinex) 600 mg PO BID [facility] Last Admin: 10/19/18 21:46 Dose: 600 mg Heparin Sodium (Porcine) (Heparin Na) 5,000 unit SC Q8 [facility] Last Admin: 10/20/18 06:47 Dose: 5,000 unit Hydralazine HCl (Apresoline) 25 mg PO TID [facility] Last Admin: 10/20/18 06:40 Dose: 25 mg Sodium Chloride () 1,000 mls @ 75 mls/hr IV .[id number] [facility] Last Admin: 10/20/18 01:26 Dose: 75 mls/hr Insulin Glargine (Lantus (Bk)) 20 units SC DAILY [facility] Insulin Human Lispro (Humalog Kwikpen ([facility])) 0 unit SQ ACHS [facility]; Protocol Last Admin: 10/20/18 06:45 Dose: 4 u Isosorbide Mononitrate (Imdur) 60 mg PO DAILY [facility] Last Admin: 10/19/18 10:19 Dose: 60 mg Levetiracetam (Keppra Tablet) 1,000 mg PO BID [facility] Last Admin: 10/19/18 21:46 Dose: 1,000 mg Levothyroxine Sodium (Synthroid) 50 mcg PO DAILY@0600 [facility] Last Admin: 10/20/18 06:40 Dose: 50 mcg Magnesium Oxide (Mag-Ox 400) 400 mg PO DAILY [facility] Last Admin: 10/19/18 10:19 Dose: 400 mg Metoprolol Succinate (Toprol Xl (Beta [place])) 25 mg PO DAILY [facility] Last Admin: 10/19/18 10:18 Dose: 25 mg Mexiletine HCl (Mexitil) 150 mg PO TID [facility] Last Admin: 10/20/18 06:40 Dose: 150 mg Nitroglycerin (Nitrostat) 0.4 mg SUBLINGUAL Q5M PRN PRN Reason: Chest Pain Pantoprazole Sodium (Protonix) 40 mg PO DAILY [facility] Pramipexole Dihydrochloride (Mirapex) 1 mg PO QHS [facility] Last Admin: 10/19/18 21:46 Dose: 1 mg [facility] () [facility] Last Admin: 10/19/18 18:27 Dose: 20 mg Promethazine HCl (Phenergan) 12.5 mg IM Q6H PRN PRN PRN Reason: NAUSEA/VOMITING Ranolazine (Ranexa) 1,000 mg PO BID [facility] Last Admin: 10/19/18 21:47 Dose: 1,000 mg Sodium Chloride () 5 - 15 ml IV UD PRN PRN Reason: SALINE FLUSH Medical Necessity - Tobacco Use Smoking Status: Former smoker Tobacco Use: Cigarettes Assessment/Plan All Active Problems (Last Reviewed 09/24/18 @ 13:39 by Anthony Hyde MD) Epiploic appendagitis (Acute) Generalized weakness (Acute) Episode of syncope (Acute) Bronchitis (Acute) Aortocoronary bypass status (Resolved) Subdural hematoma (Resolved) Patient is a 78-year-old gentleman with history of paroxysmal A. fib with recent AV libby ablation at [facility] who presented with progressive shortness of breath and a productive cough and assessment of asthmatic bronchitis made admitted to regular nursing floor for further management 1. Asthmatic bronchitis admitted to regular nursing floor managed with systemic steroids bronchodilator treatment as well as Zithromax in addition to supplemental oxygenation titrated to keep oxygen sats greater than 90 patient still has persistent cough however his steroid dose decreased in view of his hyperglycemia 2. 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 Hyponatremia chronic monitoring electrolytes 4. Seizure disorder with recent breakthrough seizure patient is on [facility] institute seizure precautions 5. Paroxysmal A. fib status post recent AV ablation 6. Conduction system disorder status post pacemaker placement 7. CAD status post CABG patient is followed by Dr. Hu 8. Ischemic cardiomyopathy status post AICD placement 9. Dyslipidemia-patient is on statin therapy, continued at home dose 10. Hypertension-blood pressure controlled, home medications continued with dose adjustment as needed 11. Hypothyroidism-patient is on levothyroxine home dose continued 12 Chronic systolic congestive heart failure 13. Obstructive sleep apnea uses CPAP at night 14. Hyperkalemia patient on supplementation discontinued repeat labs ordered for a.m. 15. Chronic kidney disease stage IV secondary to diabetic nephropathy 16. DVT prophylaxis SC heparin Code Visit Inpatient E&M: 94241 Subs Hosp L3
[2018-10-20 07:31] LABS: Anion Gap 11 (5-15); BUN 43 mg/dL (7-18); BUN/Creat Ratio 27.2 RATIO (10-20); Calcium,Total 7.8 mg/dL (8.5-10.1); Chloride 105 mmol/L (98-107); Creatinine, Serum 1.58 mg/dL (0.70-1.30); EST Glomerular Filtration Rate 45 mL/min (>60); Est Glom Filt Rate - Afr Amer 55 mL/min (>60); Estimated Creatinine Clearance 34.77 ml/min; Glucose 213 mg/dL (74-106); Potassium 4.7 mmol/L (3.5-5.1); Sodium Level 136 mmol/L (136-145)
[2018-10-20 08:10] VITALS: BP 138/88; PULSE 81; RESP 20; TEMP 36.8; O2SAT 99
--- NOTE | 2018-10-20 09:51 | NURSING ---
talked w/ admission coordinator from [facility], states they got precert for admission late last night, pt is ok with insurance to be discharged to them. informed.
[2018-10-20] MEDS: predniSONE 20 MG Tablet PO (09:56)
[2018-10-20] MEDS: guaiFENesin 600 MG Tablet PO (09:56)
[2018-10-20] MEDS: Pantoprazole Sodium 40 MG Tablet PO (09:56)
[2018-10-20] MEDS: Aspirin E.C. 81 MG Tablet PO (09:57)
[2018-10-20] MEDS: levETIRAcetam 1,000 MG Tablet 1000 MG PO (09:57)
[2018-10-20 09:59] VITALS: PULSE 81
[2018-10-20] MEDS: Metoprolol(XL)Succ 25 MG Tablet PO (09:59)
[2018-10-20] MEDS: Ranolazine 500 MG Tablet 1000 MG PO (09:59)
[2018-10-20] MEDS: Isosorbide Mononitrate 60 MG Tablet PO (09:59)
[2018-10-20] MEDS: Magnesium Oxide 400 MG Tablet PO (10:00)
--- NOTE | 2018-10-20 10:02 | PCM.TXEXTCAR ---
- Diet 10/16/18 17:14 Diet: Regular Diet Food consistency:: Regular Liquid Consistency:: Regular/Thin - Routine Orders/Code Status Code Status: Full Code - Therapies Physical Therapy: Eval and Treat Occupational Therapy: Eval and Treat Speech Therapy: Eval and Treat - Allergies/Procedures Done in Hospital Allergies/Adverse Reactions: Allergies amiodarone Allergy (Verified 10/16/18 13:52) Other meperidine [From Demerol] Allergy (Verified 10/16/18 13:52) Low blood pressure spironolactone Allergy (Verified 10/16/18 13:52) Nausea simvastatin Adverse Reaction (Mild, Verified 10/16/18 13:52) Myalgias - Type of Care/Length of Stay Estimated LOS: Convalescent Care Less Than 30 days Type of Care Needed: Skilled Rehab Potential: Fair Prognosis: Fair - Additional Orders/Day of Discharge Day of Discharge: 10/20/18 - Dietary and Speech Recommendations Dietitian Recommendations/Changes: Rec diet change to Cardiac/carb controlled diet. - Follow Up Care Primary Care Physician: Anabella Lomax MD [Primary Care Provider] - Please follow up with your Primary Care Physician in: IN 1-2 WEEKS
[2018-10-20] MEDS: Senna Tablet 1 TABLET PO (10:05)
--- NOTE | 2018-10-20 10:05 | PCM.DC.SUM ---
Discharge Date and Diagnosis - Problem List Patient Problems: Active and Suspected Problems (Last Reviewed 09/24/18 @ 13:39 by Anthony Hyde MD) Bronchitis (Acute) Date of Admission: 10/16/18 Date of Discharge: 10/20/18 - Primary Discharge Diagnosis Active and Suspected Problems (Last Reviewed 09/24/18 @ 13:39 by Anthony Hyde MD) Bronchitis (Acute) - Secondary Discharge Diagnosis Chronic Problems (Last Reviewed 09/24/18 @ 13:39 by Anthony Hyde MD) CKD (chronic kidney disease) stage 4, GFR 15-29 ml/min (Chronic) Pacemaker (Chronic) HLD (hyperlipidemia) (Chronic) Non-ST elevation (NSTEMI) myocardial infarction (Chronic) Angina pectoris (Chronic) CAD (coronary artery disease) (Chronic) Edema (Chronic) Dyspnea (Chronic) Renal disease (Chronic) Fatigue (Chronic) XOCHITL (obstructive sleep apnea) (Chronic) Diabetes mellitus type 2, noninsulin dependent (Chronic) Old myocardial infarction (Chronic) Long-term use of high-risk medication (Chronic) Chronic renal failure (Chronic) Cardiac murmur (Chronic) Hypokalemia (Chronic) Atherosclerotic heart disease of [place] coronary artery without angina pectoris (Chronic) CABG 1988; Reoperation CABG x3 SVG to LAD, SVG to Rt PDA, Radial artery to OM-2 10/08/02; VT ablation @[facility] 01/03/17 [facility] 03/10/2016 Ventricular tachycardia (paroxysmal) (Chronic) ICD (implantable cardioverter-defibrillator) in place (Chronic ~11/2001) Implant 12/10/2001 ICD replacement 06/10/2009, 06/05/2014, Systolic CHF, chronic (Chronic) Cardiomyopathy, ischemic (Chronic) CKD (chronic kidney disease), stage II (Chronic) Type II diabetes mellitus, uncontrolled (Chronic) Esophageal reflux (Chronic) HLD (hyperlipidemia) (Chronic) HTN (hypertension) (Chronic) Hypothyroidism (Chronic) Sleep apnea (Chronic) Hospital Course and Treatment Imaging Results: Clinical Impression(s) from Imaging Studies Chest X-Ray 10/16/18 13:43 IMPRESSION: Hypoinflated lungs which are clear. Electronically Signed: Gene Martell DO at 14:35 EST Tel , Service support , Operations: None Summary of Care Provided: Patient is a 78-year-old gentleman with history of paroxysmal A. fib with recent AV libby ablation at [facility] who presented with progressive shortness of breath and a productive cough and assessment of asthmatic bronchitis made admitted to regular nursing floor for further management 1. Asthmatic bronchitis admitted to regular nursing floor managed with systemic steroids bronchodilator treatment as well as Zithromax in addition to supplemental oxygenation titrated to keep oxygen sats greater than 90 patient still has persistent cough however his steroid dose decreased in view of his hyperglycemia 2. 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 Hyponatremia chronic monitoring electrolytes 4. Seizure disorder with recent breakthrough seizure patient is on Keppra did institute seizure precautions 5. Paroxysmal A. fib status post recent AV ablation 6. Conduction system disorder status post pacemaker placement 7. CAD status post CABG patient is followed by Dr. Hu 8. Ischemic cardiomyopathy status post AICD placement 9. Dyslipidemia-patient is on statin therapy, continued at home dose 10. Hypertension-blood pressure controlled, home medications continued with dose adjustment as needed 11. Hypothyroidism-patient is on levothyroxine home dose continued 12 Chronic systolic congestive heart failure 13. Obstructive sleep apnea uses CPAP at night 14. Hyperkalemia patient on supplementation discontinued repeat labs ordered for a.m. 15. Chronic kidney disease stage IV secondary to diabetic nephropathy 16. DVT prophylaxis SC heparin 17. Constipation treated symptomatically Patient Problems: Active and Suspected Problems (Last Reviewed 09/24/18 @ 13:39 by Anthony Hyde MD) Bronchitis (Acute) Objective: GENERAL: cooperative HEENT: Atraumatic; EYES; Anicteric, NECK; supple, normal thyroid, RESPIRATORY: Diminished to auscultation bilaterally, CARDIOVASCULAR: Regular S1 S2, GI: soft, non-tender, normoactive bowel sounds, : No Renal angle tenderness; EXTREMITIES: no clubbing, no cyanosis. NEURO: Awake; no lateralizing signs. SKIN: No Rash PSYCH; Normal affect - Physical Exam Vital Signs Temp Pulse Resp BP Pulse Ox 98.3 F 81 20 H 138/88 H 99 10/20/18 08:10 10/20/18 09:59 10/20/18 08:10 10/20/18 08:10 10/20/18 08:10 Oxygen Flow Rate (L/min) 2 Oxygen Delivery Method Room Air Weight: 78.9 kg Body Mass Index (BMI) 27.3 Finger Stick Blood Glucose 249 Intake and Output for Last 24 Hours 10/18/18 10/19/18 10/20/18 23:59 23:59 23:59 Intake Total 859 / 859 3805 / 3805 509 / 509 Output Total 1275 / 1275 2080 / 2080 200 / 200 Balance -416 / -416 1725 / 1725 309 / 309 Laboratory Tests Past 24 Hrs 10/19/18 10/20/18 11:36 05:35 Sodium 136 Potassium 4.7 Chloride 105 Carbon Dioxide 20.0 L Anion Gap 11 BUN 43 H Creatinine 1.58 H Estim Creat Clear Calc 34.77 Est GFR (MDRD) Af Amer 55 L Est GFR (MDRD) Non-Af 45 L BUN/Creatinine Ratio 27.2 H Glucose 602 H* 213 H Calcium 7.8 L POC Glucose 10/20/18 10/20/18 10/19/18 06:43 01:32 21:39 POC Glucose 254 H 209 H 277 H 10/19/18 10/19/18 10/19/18 18:30 15:35 11:23 POC Glucose 379 H > 500 H* > 500 H* Discharge Diet: 1800 Calorie Control Diet Discharge Activity: No Restrictions Home Medications: Medications to take at Discharge Nitroglycerin [Nitrostat] 0.4 mg SUBLINGUAL Q5M PRN 06/02/14 Ranolazine [Ranexa] 1,000 mg PO BID 06/02/14 Atorvastatin Calcium [Lipitor] 10 mg PO DAILY 08/20/14 aspirin 81 mg tablet,delayed release 81 mg PO DAILY 11/12/17 Sitagliptin Phosphate [Januvia] 50 mg PO DAILY 01/18/18 mexiletine 150 mg capsule 150 mg PO TID cap 08/30/18 bumetanide 1 mg tablet 1 mg PO QHS 10/14/18 hydralazine 25 mg tablet 25 mg PO TID 10/14/18 isosorbide mononitrate ER 60 mg tablet,extended release 24 hr 60 mg PO DAILY 10/14/18 levothyroxine 50 mcg tablet 50 mcg PO DAILY 10/14/18 metoprolol succinate ER 25 mg tablet,extended release 24 hr 25 mg PO DAILY 10/14/18 Guaifenesin [Mucinex] 600 mg PO BID 10/16/18 Levetiracetam 1,000 mg PO BID 10/16/18 Magnesium Oxide [Mag-Ox 400] 400 mg PO DAILY 10/16/18 Ropinirole HCl 2 mg PO DAILY 10/16/18 Acetaminophen [Tylenol Tablet] 650 mg PO Q6H PRN PRN tablet 10/20/18 Albuterol Aerosols [Ventolin Aerosols] 2.5 mg INHALATION Q2H PRN PRN vial.neb. 10/20/18 Insulin Glargine [Lantus SoloStar Pen] 10 units SC DAILY pen 10/20/18 Insulin Lispro [Humalog KwikPen] See Protocol SQ ACHS insuln.pen 10/20/18 Pantoprazole Sodium [Protonix] 40 mg PO DAILY tablet 10/20/18 Senna [Senokot] 1 tablet PO BID tablet 10/20/18 Primary Care Physician: Anabella Lomax MD [Primary Care Provider] - Please follow up with your Primary Care Physician in: IN 1-2 WEEKS Disposition: Intermediate facility Minutes spent on discharge:: 50 Medical Necessity - Tobacco Use Smoking Status: Former smoker Tobacco Use: Cigarettes Meaningful Use Info Meaningful Use Diagnoses (Choose all that apply): None applicable Code Visit Inpatient E&M: 10095 Disch Hosp
[2018-10-20 11:24] VITALS: PULSE 82; RESP 26
--- NOTE | 2018-10-20 11:37 | NURSING ---
Report given to Nanci at [facility] at this time. is aware that pt is being transferred to [facility].
[2018-10-20 12:15] LABS: Bedside Glucose 367 mg/dL (70-110)
== END 2018-10-20 11:41 | disposition skilled nursing facility (03) | DRG 202 ==
LOC: ED 14:06 → MS3 17:02 → ED 10-17 11:58
PROVIDERS: Admitting Provider Internal Medicine; Emergency Provider Emergency Medicine; Family Provider Internal Medicine; PCP Internal Medicine; Visit Provider Internal Medicine
DX: J45.909 Unspecified asthma, uncomplicated (principal); I50.22 Chronic systolic (congestive) heart failure; N18.4 Chronic kidney disease, stage 4 (severe); I13.0 Hypertensive heart and chronic kidney disease with heart failure and stage 1 through stage 4 chronic kidney disease, or unspecified chronic kidney disease; E87.1 Hypo-osmolality and hyponatremia; N17.9 Acute kidney failure, unspecified; E03.9 Hypothyroidism, unspecified; G40.909 Epilepsy, unspecified, not intractable, without status epilepticus; I25.10 Atherosclerotic heart disease of native coronary artery without angina pectoris; G47.33 Obstructive sleep apnea (adult) (pediatric); E11.65 Type 2 diabetes mellitus with hyperglycemia; E78.5 Hyperlipidemia, unspecified; K21.9 Gastro-esophageal reflux disease without esophagitis; I25.5 Ischemic cardiomyopathy; E87.5 Hyperkalemia; E11.22 Type 2 diabetes mellitus with diabetic chronic kidney disease; K59.00 Constipation, unspecified; Z87.891 Personal history of nicotine dependence; E86.0 Dehydration; Z79.899 Other long term (current) drug therapy; I25.2 Old myocardial infarction; Z95.810 Presence of automatic (implantable) cardiac defibrillator; Z95.1 Presence of aortocoronary bypass graft; I48.0 Paroxysmal atrial fibrillation
CPT/HCPCS: 36415; 71045; 80048; 82947; 82962; 83036; 83735; 84484; 85025; 93005; 94640; 97110; 97116; 97162; 97165; 97530; 97802; 99284; J7030; J7040; A4216; J2405

== ENCOUNTER 2018-11-12 20:44 | Observation (INO) | payer MEDICARE, SELFPAY ==
[2018-11-04 16:01] VITALS: BMI 27.3
[2018-11-12 20:45] VITALS: BP 99/76; PULSE 83; RESP 22; TEMP 36.5; O2SAT 97; BMI 30.8
[2018-11-12 20:53] VITALS: PULSE 80; RESP 15; O2SAT 97; O2SAT 98
--- NOTE | 2018-11-12 21:14 | EKG12_ITS ---
Test Reason : SOB Blood Pressure : / mmHG Vent. Rate : 080 BPM Atrial Rate : 082 BPM P-R Int : 000 ms QRS Dur : 194 ms QT Int : 504 ms P-R-T Axes : 000 -77 129 degrees QTc Int : 581 ms Ventricular-paced rhythm Biventricular pacemaker detected Abnormal ECG Reconfirmed by PARIS ROGERS, DINORA ([id number]), society editor YANG BARR ([id number] on 11/20/2018 1:54:31 PM Referred By: ANETTE PATHAK Confirmed By:DINORA TOLEDO MD
--- NOTE | 2018-11-12 21:20 | RAD_ITS ---
STUDY: X-RAY CHEST REASON FOR EXAM: Male, 78 years old. Substernal chest pain TECHNIQUE: Single AP portable view of the chest. COMPARISON: 10/16/2018 FINDINGS: EKG leads overlie the chest, stable appearance of a left subclavian pacemaker The lungs are clear and expanded. There is no demonstrated pleural abnormality. Sternal cerclage wires and vascular clips are present from a prior sternotomy and coronary artery bypass graft procedure (CABG). Normal mediastinum and jessy. Normal visualized pulmonary arteries. Normal visualized aortic arch and descending thoracic aorta. Normal visualized thoracic spine. Normal visualized ribs, clavicles, and shoulders. There is no demonstrated abnormality of the visualized soft tissue structures of the upper abdomen. RAD/Chest 1 View (Portable) IMPRESSION: No acute pulmonary process Electronically Signed: Nahid Caba MD at 21:35 EST , Service support ,
[2018-11-12 21:22] LABS: Absolute Lymphocyte Count 1.03 X10^3/ul (0.83-4.51); Absolute Neutrophil Count 4.5 X10^3/uL (2.0-7.7); Basophil# 0.03 X10^3/uL; Basophil% 0.5 % (0-1); Eosinophil# 0.04 X10^3/uL; Eosinophils% 0.6 % (0-5); Hematocrit 36.7 % (40-54); Hemoglobin 12.2 g/dl (13.0-16.5); Lymphocyte # 1.03 X10^3/ul (4.0); Lymphocyte % 16.3 % (19-41); Mean Corp Hgb Conc 33.2 g/gl (32-36); Mean Corpuscular Hgb 32.9 pg (27.0-32.0); Mean Corpuscular Volume 98.9 fL (80-94); Mean Platelet Vol. 10.2 fl (6.2-12.0); Monocyte# 0.62 X10^3/uL; Monocyte% 9.8 % (0-10); Neutrophil # 4.52 X10^3/uL (2.7-7.7); Neutrophil % 71.8 % (47-70); Platelet Count 166 K/mm3 (150-450); RBC Distribution Width SD 53.1 fl (35.1-43.9); Red Blood Count 3.71 M/mm3 (4.6-6.2); White Blood Count 6.3 K/mm3 (4.4-11.0)
[2018-11-12 21:23] LABS: POSITIVE COUNT NO; POSITIVE DIFFERENTIAL NO; POSITIVE MORPHOLOGY NO
[2018-11-12 21:26] LABS: International Normalized Ratio 1.2; Partial Thromboplast Time 27.4 Seconds (24.1-36.2); Prothrombin Time (Protime)PT. 15.6 SECONDS (11.7-14.9)
[2018-11-12 21:38] LABS: ALB/GLOB Ratio 0.8 RATIO (0.9-2.4); AST(SGOT) 26 U/L (15-37); Alanine Aminotransfer ALT/SGPT 23 U/L (16-61); Albumin, Serum 3.4 g/dL (3.2-5.0); Alkaline Phosphatase 176 U/L (45-117); Anion Gap 11 (5-15); BUN 45 mg/dL (7-18); BUN/Creat Ratio 20.7 RATIO (10-20); Calcium,Total 8.5 mg/dL (8.5-10.1); Chloride 94 mmol/L (98-107); Creatinine, Serum 2.17 mg/dL (0.70-1.30); EST Glomerular Filtration Rate 31 mL/min (>60); Est Glom Filt Rate - Afr Amer 38 mL/min (>60); Estimated Creatinine Clearance 26.23 ml/min; Glucose 214 mg/dL (74-106); Lipase 118 U/L (73-393); Potassium 5.2 mmol/L (3.5-5.1); Protein, Total 7.4 g/dL (6.4-8.2); Sodium Level 127 mmol/L (136-145)
[2018-11-12 21:46] LABS: Lactic Acid 2.3 mmol/L (0.4-2.0)
[2018-11-12 21:52] LABS: BNP,B-Type NATRIURETIC PEPTIDE 542.9 pg/mL (0-100)
[2018-11-12 21:56] LABS: Allen Test POS; Base Excess -3 mmol/L (-2 to +2); Bicarbonate 21.4 mmol/L (22-26); Blood Gas Specimen Type ART; O2 Delivery Device Room Air; PO2 44 mmHG (75-100); SITE R Radial; SO2 80 % (95-99); Time Given 2145; Total Carbon Dioxide 22 mmol/L; pCO2 34.3 mmHg (35-45)
--- NOTE | 2018-11-12 22:20 | CT_ITS ---
STUDY: CT ABDOMEN AND PELVIS WITHOUT CONTRAST REASON FOR EXAM: Male, 78 years old. Abdominal pain and weakness. Constipation. RADIATION DOSAGE (If Supplied By Facility): CTDIvol = ( 18.48 ) mGy, DLP = ( 1020.61 ) mGycm TECHNIQUE: Transaxial images were obtained from the dome of the diaphragm to the symphysis pubis without oral contrast, and without intravenous contrast. Sagittal and coronal images were reconstructed. Individualized dose optimization techniques were used for this CT. COMPARISON: 09/22/2018. FINDINGS: Since prior study patient has developed bilateral small pleural effusions. Liver is small nodular and heterogeneous suspicious for cirrhosis. No gross focal mass. There are surgical clips in the gallbladder fossa consistent with a prior cholecystectomy. Normal spleen. There is diffuse atrophy of the pancreas. Stable appearance of bilaterally enlarged adrenal glands. Normal right kidney. Normal left kidney. Evaluation of the GI tract is limited by absence of oral contrast. Cannot exclude stomach wall thickening. No dilated loops of bowel or evidence for obstruction. Cannot exclude segmental thickening of the [place] of the small or large bowel. Cannot exclude enteritis or colitis. Moderate diffuse fecal retention. Diverticulosis without definite diverticulitis. Appendix within normal limits. There is diffuse atherosclerotic calcification of the abdominal aorta, without a demonstrated aneurysm. Normal inferior vena cava. Normal retroperitoneum. There is a small amount of ascites. Normal urinary bladder. There is enlargement of the prostate gland. Normal abdominal wall. There are diffuse degenerative changes of the visualized lumbar spine. CT/Abdomen/Pelvis without Cont IMPRESSION: No definite acute abnormality in the abdomen or pelvis. Bilateral small pleural effusions which are new since prior study. Electronically Signed: Raymond Dawson MD at 23:23 EST , Service support ,
--- NOTE | 2018-11-12 22:20 | CT_ITS ---
STUDY: CT BRAIN WITHOUT CONTRAST REASON FOR EXAM: Male, 78 years old. Altered mental status. Previous surgery. RADIATION DOSAGE (If Supplied By Facility): CTDIvol = ( 44.99 ) mGy, DLP = ( 829.85 ) mGycm TECHNIQUE: Transaxial CT imaging of the brain was performed without administration of intravenous contrast material. Individualized dose optimization techniques were used for this CT. COMPARISON: None. FINDINGS: Normal soft tissue structures. Surgical changes of left craniotomy. There is mild cerebral atrophy with widening of the extra-axial spaces and ventricular dilatation. There are areas of decreased attenuation within the white matter tracts of the supratentorial brain, consistent with microvascular disease changes. Normal basal ganglia and thalami. Normal brainstem. There is mild cerebellar atrophy. There is no intracranial hemorrhage. There are no findings of an acute ischemic infarction. Since prior exam patient has developed right maxillary sinusitis. CT/Brain/Head without Contrast IMPRESSION: Chronic involutional changes of the brain. No definite acute abnormality.. Electronically Signed: Raymond Dawson MD at 23:18 EST , Service support ,
[2018-11-12 22:24] VITALS: BP 109/83; PULSE 80; RESP 18; O2SAT 100
[2018-11-12] MEDS: 0.9% Normal Saline 1,000 ML 150 ML IV (23:36)
[2018-11-12 23:37] VITALS: BP 118/81; PULSE 80; RESP 16; O2SAT 99
[2018-11-12 23:38] LABS: Bacteria 0 SEEN /hpf (None Seen); Mucous, Urine 0 SEEN /hpf (<or=2+); Squamous Epithelial Cells - UA 0 SEEN /hpf (0-5)
[2018-11-12 23:39] LABS: Color, Urine Amber (Yellow); Glucose, Dipstick Normal (Normal); Ketone-Dipstick Negative (Negative); Leukocyte Esterase-Dipstick 100 /ul (Negative); Nitrite-Dipstick Negative (Negative); Occult Blood-Urine Negative /ul (Negative); Protein-Dipstick 30 mg/dl (Negative); Specific Gravity, Urine 1.025 (1.002-1.030); Urine Clarity Clear (Clear); Urine Urobilinogen 1 mg/dl (Normal)
[2018-11-12 23:40] LABS: Urine Bilirubin Dipstick 1 mg/dL (Negative)
[2018-11-12 23:51] LABS: Hyaline Cast 10-25 SEEN /lpf (0-5); Red Blood Cells-Urine 0-5 SEEN /hpf (0-5); White Blood Cells 0-5 SEEN /hpf (0-5)
[2018-11-13] VITALS (11 sets, daily range): BP systolic 95–123; BP diastolic 65–82; PULSE 76–81; RESP 16–20; TEMP 36.4–36.7; O2SAT 96–99; BMI 29.5; BMI 29.6
--- NOTE | 2018-11-13 00:18 | PCM.HP.STD ---
Problem List (1) Dehydration Status: Acute (2) Acute encephalopathy Status: Acute (3) History of cardiac radiofrequency ablation Status: Resolved Comment: AVN Ablation @ [facility] 10/04/18 (4) Pacemaker Status: Chronic (5) HLD (hyperlipidemia) Status: Chronic Qualifiers: (6) CAD (coronary artery disease) Status: Chronic Qualifiers: Coronary Disease-Associated Artery/Lesion type: unspecified vessel or lesion type [place] vs. transplanted heart: unspecified whether [place] or transplanted heart Associated angina: angina presence unspecified Qualified Code(s): I25.10 - Atherosclerotic heart disease of [place] coronary artery without angina pectoris (7) XOCHITL (obstructive sleep apnea) Status: Chronic (8) Aortocoronary bypass status Status: Resolved Comment: CABG 1988; Reoperation CABG x3 SVG to LAD, SVG to Rt PDA, Radial artery to OM-2 10/08/02; VT ablation @[facility] 01/03/17 (9) Atherosclerotic heart disease of [place] coronary artery without angina pectoris Status: Chronic Qualifiers: [place] vs. transplanted heart: [place] heart Qualified Code(s): I25.10 - Atherosclerotic heart disease of [place] coronary artery without angina pectoris Comment: CABG 1988; Reoperation CABG x3 SVG to LAD, SVG to Rt PDA, Radial artery to OM-2 10/08/02; VT ablation @[facility] 01/03/17 [facility] 03/10/2016 (10) Ventricular tachycardia (paroxysmal) Status: Chronic (11) ICD (implantable cardioverter-defibrillator) in place Status: Chronic Comment: Implant 12/10/2001 ICD replacement 06/10/2009, 06/05/2014, (12) Systolic CHF, chronic Status: Chronic (13) Cardiomyopathy, ischemic Status: Chronic (14) Subdural hematoma Status: Resolved (15) CKD (chronic kidney disease), stage II Status: Chronic (16) Type II diabetes mellitus, uncontrolled Status: Chronic (17) Esophageal reflux Status: Chronic Qualifiers: Esophagitis presence: esophagitis presence not specified Qualified Code(s): K21.9 - Gastro-esophageal reflux disease without esophagitis (18) HLD (hyperlipidemia) Status: Chronic Qualifiers: Hyperlipidemia type: unspecified Qualified Code(s): E78.5 - Hyperlipidemia, unspecified (19) HTN (hypertension) Status: Chronic Qualifiers: Hypertension type: unspecified Qualified Code(s): I10 - Essential (primary) hypertension (20) Hypothyroidism Status: Chronic Qualifiers: (21) Sleep apnea Status: Chronic History of Present Illness Date of Admission: 11/13/18 Chief Complaint: Fatigue, lethargy, weakness, recent poor oral intake, dehydration. The patient is a 78 y/o M w/ PMHx: CAD s/p CABG, HTN, HLD, PAF/Ventricular Arrhythmia status post cardiac ablation, Chronic Systolic CHF/Ischemic Cardiomyopathy s/p AICD, Diabetes mellitus type II, XOCHITL who presents to the [facility] ED on 11/13/18 noted to have recently transition from assisted facility to home and following has had progressively worsened intake, noted to be dehydrated with recent nausea and emesis bout x1 at home prior to ED presentation with additionally worsening weakness, debility, prompting family to return to the ED for patient evaluation. They note that he has been more lethargic, less interactive and confused, worsening over the last 24-48 hours. They deny any recent cough, congestion, dyspnea, diarrhea or abdominal pain. does report that patient has had no bowel movement in the last 2-3 days but he has had minimal intake over these days. In the ED work-up included T 97.7, HR 83, BP 118/81, respiratory rate 15, 98% on room air, CBC with WBC 6.3, heme globin 12.2, platelet 166 with mild left shift, coags with PT 15.6 otherwise not marked, ABG suspected to be venous sample, poor sample, CMP with sodium 127, potassium 5.2, chloride 94, BUN/creatinine 45/2.17, glucose 214, lactic acid 2.3, alk phos 176, troponin 0 0.027, BNP 542.9, lipase 118, urinalysis with no obvious infection with noted elevated specific gravity consistent with dehydration, chest x-ray with no acute cardiopulmonary process, CT abdomen and pelvis with no definitive acute abnormality with bilateral small pleural effusion, P of the brain with chronic changes with no acute intracranial finding. Past Medical History Past Medical History (Chronic Problems): Chronic Problems (Last Reviewed 11/04/18 @ 15:55 by Ana Cristina Cobos) CKD (chronic kidney disease) stage 4, GFR 15-29 ml/min (Chronic) Pacemaker (Chronic) HLD (hyperlipidemia) (Chronic) Non-ST elevation (NSTEMI) myocardial infarction (Chronic) Angina pectoris (Chronic) CAD (coronary artery disease) (Chronic) Edema (Chronic) Dyspnea (Chronic) Renal disease (Chronic) Fatigue (Chronic) XOCHITL (obstructive sleep apnea) (Chronic) Diabetes mellitus type 2, noninsulin dependent (Chronic) Old myocardial infarction (Chronic) Long-term use of high-risk medication (Chronic) Chronic renal failure (Chronic) Cardiac murmur (Chronic) Hypokalemia (Chronic) Atherosclerotic heart disease of [place] coronary artery without angina pectoris (Chronic) CABG 1988; Reoperation CABG x3 SVG to LAD, SVG to Rt PDA, Radial artery to OM-2 10/08/02; VT ablation @[facility] 01/03/17 [facility] 03/10/2016 Ventricular tachycardia (paroxysmal) (Chronic) ICD (implantable cardioverter-defibrillator) in place (Chronic ~11/2001) Implant 12/10/2001 ICD replacement 06/10/2009, 06/05/2014, Systolic CHF, chronic (Chronic) Cardiomyopathy, ischemic (Chronic) CKD (chronic kidney disease), stage II (Chronic) Type II diabetes mellitus, uncontrolled (Chronic) Esophageal reflux (Chronic) HLD (hyperlipidemia) (Chronic) HTN (hypertension) (Chronic) Hypothyroidism (Chronic) Sleep apnea (Chronic) Medical History: Medical History (Last Reviewed 11/04/18 @ 15:55 by Ana Cristina Cobos) HLD (hyperlipidemia) (Chronic) E78.5 Non-ST elevation (NSTEMI) myocardial infarction (Chronic) I21.4 Angina pectoris (Chronic) I20.9 CAD (coronary artery disease) (Chronic) I25.10 Edema (Chronic) R60.9 Dyspnea (Chronic) R06.00 Renal disease (Chronic) N28.9 Fatigue (Chronic) R53.83 XOCHITL (obstructive sleep apnea) (Chronic) G47.33 Diabetes mellitus type 2, noninsulin dependent (Chronic) E11.9 Old myocardial infarction (Chronic) I25.2 Long-term use of high-risk medication (Chronic) Z79.899 Chronic renal failure (Chronic) N18.9 Cardiac murmur (Chronic) R01.1 Hypokalemia (Chronic) E87.6 Atherosclerotic heart disease of [place] coronary artery without angina pectoris (Chronic) I25.10 CABG 1988; Reoperation CABG x3 SVG to LAD, SVG to Rt PDA, Radial artery to OM-2 10/08/02; VT ablation @[facility] 01/03/17 [facility] 03/10/2016 Ventricular tachycardia (paroxysmal) (Chronic) I47.2 ICD (implantable cardioverter-defibrillator) in place (Chronic) Onset Date: ~11/2001 Z95.810 Implant 12/10/2001 ICD replacement 06/10/2009, 06/05/2014, Systolic CHF, chronic (Chronic) I50.22 Cardiomyopathy, ischemic (Chronic) I25.5 Subdural hematoma (Resolved) I62.00 CAD (coronary artery disease) (Inactive) I25.10 CHF (congestive heart failure) (Inactive) I50.9 Visual hallucination (Inactive) R44.1 Allergies amiodarone Allergy (Verified 11/12/18 20:50) Other meperidine [From Demerol] Allergy (Verified 11/12/18 20:50) Low blood pressure spironolactone Allergy (Verified 11/12/18 20:50) Nausea simvastatin Adverse Reaction (Mild, Verified 11/12/18 20:50) Myalgias Home Medications: Ambulatory Orders Medication Instructions Recorded Aspirin [Aspir 81] 81 mg PO DAILY 11/12/18 Atorvastatin Calcium [Lipitor] 10 mg PO QHS 11/12/18 Bumetanide [Bumex] 1 mg PO QHS 11/12/18 Bumetanide [Bumex] 2 mg PO DAILY 11/12/18 Isosorbide Mononitrate [Isosorbide 60 mg PO DAILY 11/12/18 Mononitrate ER] Levetiracetam [Keppra] 1,000 mg PO BID 11/12/18 Levothyroxine [Synthroid] 50 mcg PO DAILY 11/12/18 Magnesium Oxide [Mag-Ox 400] 400 mg PO DAILY 11/12/18 Metoprolol Succinate [Toprol Xl] 25 mg PO DAILY 11/12/18 Mexiletine [Mexitil] 150 mg PO Q8H 11/12/18 Nitroglycerin [Nitrostat] 0.4 mg SL PRN PRN 11/12/18 Potassium Chloride [Klor-Con] 20 meq PO DAILY 11/12/18 Ranolazine [Ranexa] 1,000 mg PO BID 11/12/18 Ropinirole HCl [Requip] 2 mg PO BID 11/12/18 Sitagliptin Phosphate [Januvia] 50 mg PO DAILY 11/12/18 hydrALAZINE [Apresoline] 25 mg PO TID 11/12/18 Surgical History: Surgical History (Last Reviewed 11/04/18 @ 15:55 by Ana Cristina Cobos) History of cardiac radiofrequency ablation (Resolved) Onset Date: ~10/04/18 Z98.890 AVN Ablation @ [facility] 10/04/18 Aortocoronary bypass status (Resolved) Z95.1 CABG 1988; Reoperation CABG x3 SVG to LAD, SVG to Rt PDA, Radial artery to OM-2 10/08/02; VT ablation @[facility] 01/03/17 H/O prior ablation treatment Onset Date: ~01/03/17 Z98.890 VT Ablation @ [facility] History of craniotomy Onset Date: ~06/2017 Z98.890 History of herniorrhaphy Z98.890, Z87.19 History of hip replacement Z96.649 RT History of knee surgery Z98.890 Rt S/P CABG (coronary artery bypass graft) (Inactive) Z95.1 Surgical History: cholecystectomy, coronary bypass surgery, - - ICD placement, CABG x 3, Cholecystectomy, RTHR, RTKR, Cardiac ablation, Craniotomy s/p SDH w/ fall. Psychiatric History: Anxiety, Depression Lives: Spouse/ Significant Other Smoking Status: Former smoker Tobacco Use: Non-smoker Alcohol: None Drugs: None - *Family History Paternal Family History: Family History (Last Reviewed 11/04/18 @ 15:55 by Ana Cristina Cobos) Father CAD (coronary artery disease) Hypertension Myocardial infarction CHF (congestive heart failure) Mother CAD (coronary artery disease) Myocardial infarction Hypothyroid High cholesterol History Items: Diabetes, Heart Disease, Hypertension Maternal Family History: Family History (Last Reviewed 11/04/18 @ 15:55 by Ana Cristina Cobos) Father CAD (coronary artery disease) Hypertension Myocardial infarction CHF (congestive heart failure) Mother CAD (coronary artery disease) Myocardial infarction Hypothyroid High cholesterol History Items: High Cholesterol, Heart Disease, Hypertension Review of Systems Constitutional: Reports: Anorexia, Malaise, Weakness, Fatigue. Denies: Chills, Fever, Weight Change HEENT: Denies: Head Aches, Sinus Congestion, Sinus Drainage Cardiovascular: Denies: Chest Pain, Palpitations Respiratory: Denies: Cough, Shortness of breath at rest, Sputum production Gastrointestinal: Reports: Nausea, Vomiting. Denies: Abdominal Pain Genitourinary: Denies: Dysuria Musculoskeletal: Reports: Back Pain. Denies: Joint Pain, Joint Tenderness Skin: Reports: Skin Changes. Denies: Rash, Wounds Neurological: Reports: Balance problems, Confusion. Denies: Focal weakness, Numbness, Tingling Psychiatric: Denies: Anxiety, Depression, Homicidal Ideations, Suicidal Ideations Hematologic/ Lymphatic: Reports: Anemia. Denies: Easy Bruising, Easy Bleeding VTE Information - Inpt Only VTE Present on Admission: No VTE Mechan Device Prophylaxis: SCD's VTE Pharm Prophylaxis ordered?: Yes Patient Problems: Active and Suspected Problems (Last Reviewed 11/04/18 @ 15:55 by Ana Cristina Cobos) Acute encephalopathy (Acute) Dehydration (Acute) Subjective: Laying in the ED bed, fatigued appearance, intermittently interactive but falling asleep quickly. Objective: Physical Examination: General: awakes currently to stimuli, not alert, not oriented, intermittently cooperative, laying in the ED bed, no acute distress currently. Skin: normal color, turgor, no icterus, cyanosis except occasional extremity ecchymoses very staged. HEENT: AT/NC, EOM unable to be assessed as patient easily falling back asleep, lethargic, PERRLA, dry MM, no carotid bruits or JVD noted. Lungs: Breath sounds bilateral bases, moderate effort, no rales, ronchi or wheezing. Heart: Regular rate and rhythm; no gallop, rub audible. Abdomen: soft, NTTP, ND, normal BS, no HSM. Extremities: no cyanosis, clubbing, bilateral lower extremity ankle to distal fernandez edema, severe. Neurological: awakes currently to stimuli, not alert, not oriented, intermittently cooperative, laying in the ED bed, no acute distress currently; cognitive function not baseline intact; pupils equally reactive to light and accomodation; cranial nerves II-XII grossly normal difficult to assess given lethargy and sedate presentation, moving all 4 extremities, difficult to assess for focal deficit, strength currently appears severely globally decreased. Psychiatric: affect appears lethargic, flat, no acute evidence of depressive or anxiety feelings. - Physical Exam Vital Signs Temp Pulse Resp BP Pulse Ox 97.7 F L 80 16 118/81 H 99 11/12/18 20:45 11/12/18 23:37 11/12/18 23:37 11/12/18 23:37 11/12/18 23:37 Oxygen Flow Rate (L/min) 2 Oxygen Delivery Method Nasal Cannula Weight: 196 lb 10.437 oz Body Mass Index (BMI) 30.8 Finger Stick Blood Glucose 249 Laboratory Tests Past 24 Hrs 11/12/18 11/12/18 11/12/18 21:03 21:03 21:03 WBC 6.3 RBC 3.71 L Hgb 12.2 L Hct 36.7 L MCV 98.9 H MCH 32.9 H MCHC 33.2 RDW 15.0 H RDW Differential 53.1 H Plt Count 166 MPV 10.2 Immature Gran % (Auto) 1.000 H Neut % (Auto) 71.8 H Lymph % (Auto) 16.3 L Mckenzie % (Auto) 9.8 Eos % (Auto) 0.6 Baso % (Auto) 0.5 Absolute Neuts (auto) 4.5 Absolute Lymphs (auto) 1.03 Total Counted Not Reportable PT 15.6 H INR 1.2 APTT 27.4 Specimen Type Sample Site pH Bicarbonate Actual POC Total CO2 Base Excess O2 Saturation ABG pCO2 ABG pO2 Kyle Test O2 Delivery Device Blood Gas Notified Whom Blood Gas Notified Time Sodium 127 L Potassium 5.2 H Chloride 94 L Carbon Dioxide 22.0 Anion Gap 11 BUN 45 H Creatinine 2.17 H Estim Creat Clear Calc 26.23 Est GFR (MDRD) Af Amer 38 L Est GFR (MDRD) Non-Af 31 L BUN/Creatinine Ratio 20.7 H Glucose 214 H Lactic Acid Calcium 8.5 Total Bilirubin 0.70 AST 26 ALT 23 Alkaline Phosphatase 176 H Troponin I 0.027 B-Natriuretic Peptide Total Protein 7.4 Albumin 3.4 Globulin 4.0 Albumin/Globulin Ratio 0.8 L Lipase 118 Urine Color Urine Clarity Urine pH Ur Specific [place] Urine Protein Urine Glucose (UA) Urine Ketones Urine Occult Blood Urine Nitrite Urine Bilirubin Urine Urobilinogen Ur Leukocyte Esterase Urine RBC Urine WBC Ur Squamous Epith Cells Urine Bacteria Hyaline Casts Urine Mucus 11/12/18 11/12/18 11/12/18 21:03 21:03 21:50 WBC RBC Hgb Hct MCV MCH MCHC RDW RDW Differential Plt Count MPV Immature Gran % (Auto) Neut % (Auto) Lymph % (Auto) Mckenzie % (Auto) Eos % (Auto) Baso % (Auto) Absolute Neuts (auto) Absolute Lymphs (auto) Total Counted PT INR APTT Specimen Type ART Sample Site R Radial pH 7.40 Bicarbonate Actual 21.4 L POC Total CO2 22 Base Excess -3 L O2 Saturation 80 L ABG pCO2 34.3 L ABG pO2 44 L Kyle Test POS O2 Delivery Device Room Air Blood Gas Notified Whom ED MD Blood Gas Notified Time 2145 Sodium Potassium Chloride Carbon Dioxide Anion Gap BUN Creatinine Estim Creat Clear Calc Est GFR (MDRD) Af Amer Est GFR (MDRD) Non-Af BUN/Creatinine Ratio Glucose Lactic Acid 2.3 H Calcium Total Bilirubin AST ALT Alkaline Phosphatase Troponin I B-Natriuretic Peptide 542.9 H Total Protein Albumin Globulin Albumin/Globulin Ratio Lipase Urine Color Urine Clarity Urine pH Ur Specific [place] Urine Protein Urine Glucose (UA) Urine Ketones Urine Occult Blood Urine Nitrite Urine Bilirubin Urine Urobilinogen Ur Leukocyte Esterase Urine RBC Urine WBC Ur Squamous Epith Cells Urine Bacteria Hyaline Casts Urine Mucus 11/12/18 23:30 WBC RBC Hgb Hct MCV MCH MCHC RDW RDW Differential Plt Count MPV Immature Gran % (Auto) Neut % (Auto) Lymph % (Auto) Mckenzie % (Auto) Eos % (Auto) Baso % (Auto) Absolute Neuts (auto) Absolute Lymphs (auto) Total Counted PT INR APTT Specimen Type Sample Site pH Bicarbonate Actual POC Total CO2 Base Excess O2 Saturation ABG pCO2 ABG pO2 Kyle Test O2 Delivery Device Blood Gas Notified Whom Blood Gas Notified Time Sodium Potassium Chloride Carbon Dioxide Anion Gap BUN Creatinine Estim Creat Clear Calc Est GFR (MDRD) Af Amer Est GFR (MDRD) Non-Af BUN/Creatinine Ratio Glucose Lactic Acid Calcium Total Bilirubin AST ALT Alkaline Phosphatase Troponin I B-Natriuretic Peptide Total Protein Albumin Globulin Albumin/Globulin Ratio Lipase Urine Color Jessie Urine Clarity Clear Urine pH 5.0 Ur Specific [place] 1.025 Urine Protein 30 H Urine Glucose (UA) Normal Urine Ketones Negative Urine Occult Blood Negative Urine Nitrite Negative Urine Bilirubin 1 H Urine Urobilinogen 1 H Ur Leukocyte Esterase 100 H Urine RBC 0-5 SEEN Urine WBC 0-5 SEEN Ur Squamous Epith Cells 0 SEEN Urine Bacteria 0 SEEN Hyaline Casts 10-25 SEEN Urine Mucus 0 SEEN Assessment/Plan All Active Problems (Last Reviewed 11/04/18 @ 15:55 by Ana Cristina Cobos) Acute encephalopathy (Acute) Dehydration (Acute) History of cardiac radiofrequency ablation (Resolved ~10/04/18) Epiploic appendagitis (Acute) Generalized weakness (Acute) Episode of syncope (Acute) Bronchitis (Acute) Aortocoronary bypass status (Resolved) Subdural hematoma (Resolved) The patient is a 78 y/o M w/ PMHx: CAD s/p CABG, HTN, HLD, PAF/Ventricular Arrhythmia status post cardiac ablation, Chronic Systolic CHF/Ischemic Cardiomyopathy s/p AICD, Diabetes mellitus type II, XOCHITL who presents to the [facility] ED on 11/13/18 noted to have recently transition from assisted facility to home and following has had progressively worsened intake, noted to be dehydrated with recent nausea and emesis bout x1 at home prior to ED presentation with additionally worsening weakness, debility, prompting family to return to the ED for patient evaluation. (1) Encephalopathy, acute, metabolic w/ Weakness, Debility, Adult Failure to Thrive: Patient w/ recent serial admissions with transition to assisted facilities and quick return secondary to debility and weakness. Suspect patient acute presentation secondary to dehydration coupled with poor reserve. Will admit to medical surgical floor, maintain on gentle hydration, maintain n.p.o. status as patient encephalopathic in the ED with fatigue and lethargy, restart oral home medication once improved, PT, OT, case management consultations for discharge planning. Given patient presentation best place likely assisted facility. (2) Hyponatremia, Suspected Hypovolemic, Acute on Chronic: Suspect acute on chronic given recent GI losses and recent poor intake. Admission Na 127, baseline 130-135, gently hydrate given CHF history, temporarily holding oral regimen given encephalopathy and fatigue, repeat BMP in AM. (3) CKD stage IV with insufficiency secondary to dehydration: Admission BUN/Cr 45/2.17, baseline Cr 1.7-2, near baseline, poor intake noted, will gently hydrate, repeat BMP in AM. (4) History of SDH: Prior history of fall with intracranial hemorrhage 06/2017 with keppra seizure prophylaxis, transitioned to IV while more lethargic, transition back to oral regimen once appropriate, ED CT Head without acute findings. (5) CAD: s/p CABG x 3 2001 [facility], SVG to the LAD; SVG to the PDA; radial artery to OM. Temporarily holding oral home regimen given lethargy, encephalopathic, restart once clinically improved. If not improved by a.m. for oral intake of medications will need to initiate MA ASA. (6) Hypertension: Temporarily holding home oral regimen, restart once clinically improved, PRN hydralazine. (7) Hypothyroidism: Temporarily holding home synthroid regimen, restart once clinically improved. (8) PAF/Ventricular Tachycardia/Arrhythmia: Temporarily holding home oral regimen, restart once clinically improved. (9) Chronic Systolic CHF, Ischemic Cardiomyopathy: s/p AICD. Encephalopathic, temporarily holding home oral regimen, restart once clinically improved, likely in a.m. 01/18/18 [place] w/ severely dilated LV, EF 30%, moderate severe segmental systolic dysfunction, transmitral diastolic flow velocities suggestive of moderate stage II diastolic dysfunction. (10) GERD: IV PPI. (11) Diabetes mellitus type II: Hold oral regimen, NPO status given encephalopathy, unsafe intake, ISS, accu checks. (12) XOCHITL: CPAP qHS. (13) AOCD: Admission Hgb 12.2, baseline 12, stable, repeat CBC in AM. (14) DVT Prophylaxis: SCDs, heparin. Code Visit OBSV E&M: 94143 Initial observation care L3
--- NOTE | 2018-11-13 00:23 | HP.PCM_ITS ---
Problem List (1) Dehydration Status: Acute (2) Acute encephalopathy Status: Acute (3) History of cardiac radiofrequency ablation Status: Resolved Comment: AVN Ablation @ [facility] 10/04/18 (4) Pacemaker Status: Chronic (5) HLD (hyperlipidemia) Status: Chronic Qualifiers: (6) CAD (coronary artery disease) Status: Chronic Qualifiers: Coronary Disease-Associated Artery/Lesion type: unspecified vessel or lesion type [place] vs. transplanted heart: unspecified whether three affiliated or transplanted heart Associated angina: angina presence unspecified Qualified Code(s): I25.10 - Atherosclerotic heart disease of three affiliated coronary artery without angina pectoris (7) XOCHTIL (obstructive sleep apnea) Status: Chronic (8) Aortocoronary bypass status Status: Resolved Comment: CABG 1988; Reoperation CABG x3 SVG to LAD, SVG to Rt PDA, Radial artery to OM-2 10/08/02; VT ablation @[facility] 01/03/17 (9) Atherosclerotic heart disease of three affiliated coronary artery without angina pectoris Status: Chronic Qualifiers: [place] vs. transplanted heart: three affiliated heart Qualified Code(s): I25.10 - Atherosclerotic heart disease of three affiliated coronary artery without angina pectoris Comment: CABG 1988; Reoperation CABG x3 SVG to LAD, SVG to Rt PDA, Radial artery to OM-2 10/08/02; VT ablation @[facility] 01/03/17 [facility] [place] 03/10/2016 (10) Ventricular tachycardia (paroxysmal) Status: Chronic (11) ICD (implantable cardioverter-defibrillator) in place Status: Chronic Comment: Implant 12/10/2001 ICD replacement 06/10/2009, 06/05/2014, (12) Systolic CHF, chronic Status: Chronic (13) Cardiomyopathy, ischemic Status: Chronic (14) Subdural hematoma Status: Resolved (15) CKD (chronic kidney disease), stage II Status: Chronic (16) Type II diabetes mellitus, uncontrolled Status: Chronic (17) Esophageal reflux Status: Chronic Qualifiers: Esophagitis presence: esophagitis presence not specified Qualified Code(s): K21.9 - Gastro-esophageal reflux disease without esophagitis (18) HLD (hyperlipidemia) Status: Chronic Qualifiers: Hyperlipidemia type: unspecified Qualified Code(s): E78.5 - Hyperlipidemia, unspecified (19) HTN (hypertension) Status: Chronic Qualifiers: Hypertension type: unspecified Qualified Code(s): I10 - Essential (primary) hypertension (20) Hypothyroidism Status: Chronic Qualifiers: (21) Sleep apnea Status: Chronic History of Present Illness Date of Admission: 11/13/18 Chief Complaint: Fatigue, lethargy, weakness, recent poor oral intake, dehydration. The patient is a 78 y/o M w/ PMHx: CAD s/p CABG, HTN, HLD, PAF/Ventricular Arrhythmia status post cardiac ablation, Chronic Systolic CHF/Ischemic Cardiomyopathy s/p AICD, Diabetes mellitus type II, XOCHITL who presents to the [facility] ED on 11/13/18 noted to have recently transition from senior care facility to home and following has had progressively worsened intake, noted to be dehydrated with recent nausea and emesis bout x1 at home prior to ED presentation with additionally worsening weakness, debility, prompting family to return to the ED for patient evaluation. They note that he has been more lethargic, less interactive and confused, worsening over the last 24-48 hours. They deny any recent cough, congestion, dyspnea, diarrhea or abdominal pain. does report that patient has had no bowel movement in the last 2-3 days but he has had minimal intake over these days. In the ED work-up included T 97.7, HR 83, BP 118/81, respiratory rate 15, 98% on room air, CBC with WBC 6.3, heme globin 12.2, platelet 166 with mild left shift, coags with PT 15.6 otherwise not marked, ABG suspected to be venous sample, poor sample, CMP with sodium 127, potassium 5.2, chloride 94, BUN/creatinine 45/2.17, glucose 214, lactic acid 2.3, alk phos 176, troponin 0 0.027, BNP 542.9, lipase 118, urinalysis with no obvious infection with noted elevated specific gravity consistent with dehydration, chest x-ray with no acute cardiopulmonary process, CT abdomen and pelvis with no definitive acute abnormality with bilateral small pleural effusion, P of the brain with chronic changes with no acute intracranial finding. Past Medical History Past Medical History (Chronic Problems): Chronic Problems (Last Reviewed 11/04/18 @ 15:55 by Ana Cristina Cobos) CKD (chronic kidney disease) stage 4, GFR 15-29 ml/min (Chronic) Pacemaker (Chronic) HLD (hyperlipidemia) (Chronic) Non-ST elevation (NSTEMI) myocardial infarction (Chronic) Angina pectoris (Chronic) CAD (coronary artery disease) (Chronic) Edema (Chronic) Dyspnea (Chronic) Renal disease (Chronic) Fatigue (Chronic) XOCHITL (obstructive sleep apnea) (Chronic) Diabetes mellitus type 2, noninsulin dependent (Chronic) Old myocardial infarction (Chronic) Long-term use of high-risk medication (Chronic) Chronic renal failure (Chronic) Cardiac murmur (Chronic) Hypokalemia (Chronic) Atherosclerotic heart disease of three affiliated coronary artery without angina pectoris (Chronic) CABG 1988; Reoperation CABG x3 SVG to LAD, SVG to Rt PDA, Radial artery to OM-2 10/08/02; VT ablation @[facility] 01/03/17 [facility] 03/10/2016 Ventricular tachycardia (paroxysmal) (Chronic) ICD (implantable cardioverter-defibrillator) in place (Chronic ~11/2001) Implant 12/10/2001 ICD replacement 06/10/2009, 06/05/2014, Systolic CHF, chronic (Chronic) Cardiomyopathy, ischemic (Chronic) CKD (chronic kidney disease), stage II (Chronic) Type II diabetes mellitus, uncontrolled (Chronic) Esophageal reflux (Chronic) HLD (hyperlipidemia) (Chronic) HTN (hypertension) (Chronic) Hypothyroidism (Chronic) Sleep apnea (Chronic) Medical History: Medical History (Last Reviewed 11/04/18 @ 15:55 by Ana Cristina Cobos) HLD (hyperlipidemia) (Chronic) E78.5 Non-ST elevation (NSTEMI) myocardial infarction (Chronic) I21.4 Angina pectoris (Chronic) I20.9 CAD (coronary artery disease) (Chronic) I25.10 Edema (Chronic) R60.9 Dyspnea (Chronic) R06.00 Renal disease (Chronic) N28.9 Fatigue (Chronic) R53.83 XOCHITL (obstructive sleep apnea) (Chronic) G47.33 Diabetes mellitus type 2, noninsulin dependent (Chronic) E11.9 Old myocardial infarction (Chronic) I25.2 Long-term use of high-risk medication (Chronic) Z79.899 Chronic renal failure (Chronic) N18.9 Cardiac murmur (Chronic) R01.1 Hypokalemia (Chronic) E87.6 Atherosclerotic heart disease of three affiliated coronary artery without angina pectoris (Chronic) I25.10 CABG 1988; Reoperation CABG x3 SVG to LAD, SVG to Rt PDA, Radial artery to OM-2 10/08/02; VT ablation @[facility] 01/03/17 [facility] [place] 03/10/2016 Ventricular tachycardia (paroxysmal) (Chronic) I47.2 ICD (implantable cardioverter-defibrillator) in place (Chronic) Onset Date: ~11/2001 Z95.810 Implant 12/10/2001 ICD replacement 06/10/2009, 06/05/2014, Systolic CHF, chronic (Chronic) I50.22 Cardiomyopathy, ischemic (Chronic) I25.5 Subdural hematoma (Resolved) I62.00 CAD (coronary artery disease) (Inactive) I25.10 CHF (congestive heart failure) (Inactive) I50.9 Visual hallucination (Inactive) R44.1 Allergies amiodarone Allergy (Verified 11/12/18 20:50) Other meperidine [From Demerol] Allergy (Verified 11/12/18 20:50) Low blood pressure spironolactone Allergy (Verified 11/12/18 20:50) Nausea simvastatin Adverse Reaction (Mild, Verified 11/12/18 20:50) Myalgias Home Medications: Ambulatory Orders Medication Instructions Recorded Aspirin [Aspir 81] 81 mg PO DAILY 11/12/18 Atorvastatin Calcium [Lipitor] 10 mg PO QHS 11/12/18 Bumetanide [Bumex] 1 mg PO QHS 11/12/18 Bumetanide [Bumex] 2 mg PO DAILY 11/12/18 Isosorbide Mononitrate [Isosorbide 60 mg PO DAILY 11/12/18 Mononitrate ER] Levetiracetam [Keppra] 1,000 mg PO BID 11/12/18 Levothyroxine [Synthroid] 50 mcg PO DAILY 11/12/18 Magnesium Oxide [Mag-Ox 400] 400 mg PO DAILY 11/12/18 Metoprolol Succinate [Toprol Xl] 25 mg PO DAILY 11/12/18 Mexiletine [Mexitil] 150 mg PO Q8H 11/12/18 Nitroglycerin [Nitrostat] 0.4 mg SL PRN PRN 11/12/18 Potassium Chloride [Klor-Con] 20 meq PO DAILY 11/12/18 Ranolazine [Ranexa] 1,000 mg PO BID 11/12/18 Ropinirole HCl [Requip] 2 mg PO BID 11/12/18 Sitagliptin Phosphate [Januvia] 50 mg PO DAILY 11/12/18 hydrALAZINE [Apresoline] 25 mg PO TID 11/12/18 Surgical History: Surgical History (Last Reviewed 11/04/18 @ 15:55 by Ana Cristina Cobos) History of cardiac radiofrequency ablation (Resolved) Onset Date: ~10/04/18 Z98.890 AVN Ablation @ [facility] 10/04/18 Aortocoronary bypass status (Resolved) Z95.1 CABG 1988; Reoperation CABG x3 SVG to LAD, SVG to Rt PDA, Radial artery to OM-2 10/08/02; VT ablation @[facility] 01/03/17 H/O prior ablation treatment Onset Date: ~01/03/17 Z98.890 VT Ablation @ [facility] History of craniotomy Onset Date: ~06/2017 Z98.890 History of herniorrhaphy Z98.890, Z87.19 History of hip replacement Z96.649 RT History of knee surgery Z98.890 Rt S/P CABG (coronary artery bypass graft) (Inactive) Z95.1 Surgical History: cholecystectomy, coronary bypass surgery, - - ICD placement, CABG x 3, Cholecystectomy, RTHR, RTKR, Cardiac ablation, Craniotomy s/p SDH w/ fall. Psychiatric History: Anxiety, Depression Lives: Spouse/ Significant Other Smoking Status: Former smoker Tobacco Use: Non-smoker Alcohol: None Drugs: None - *Family History Paternal Family History: Family History (Last Reviewed 11/04/18 @ 15:55 by Ana Cristina Cobos) Father CAD (coronary artery disease) Hypertension Myocardial infarction CHF (congestive heart failure) Mother CAD (coronary artery disease) Myocardial infarction Hypothyroid High cholesterol History Items: Diabetes, Heart Disease, Hypertension Maternal Family History: Family History (Last Reviewed 11/04/18 @ 15:55 by Ana Cristina Cobos) Father CAD (coronary artery disease) Hypertension Myocardial infarction CHF (congestive heart failure) Mother CAD (coronary artery disease) Myocardial infarction Hypothyroid High cholesterol History Items: High Cholesterol, Heart Disease, Hypertension Review of Systems Constitutional: Reports: Anorexia, Malaise, Weakness, Fatigue. Denies: Chills, Fever, Weight Change HEENT: Denies: Head Aches, Sinus Congestion, Sinus Drainage Cardiovascular: Denies: Chest Pain, Palpitations Respiratory: Denies: Cough, Shortness of breath at rest, Sputum production Gastrointestinal: Reports: Nausea, Vomiting. Denies: Abdominal Pain Genitourinary: Denies: Dysuria Musculoskeletal: Reports: Back Pain. Denies: Joint Pain, Joint Tenderness Skin: Reports: Skin Changes. Denies: Rash, Wounds Neurological: Reports: Balance problems, Confusion. Denies: Focal weakness, Numbness, Tingling Psychiatric: Denies: Anxiety, Depression, Homicidal Ideations, Suicidal Ideations Hematologic/ Lymphatic: Reports: Anemia. Denies: Easy Bruising, Easy Bleeding VTE Information - Inpt Only VTE Present on Admission: No VTE Mechan Device Prophylaxis: SCD's VTE Pharm Prophylaxis ordered?: Yes Patient Problems: Active and Suspected Problems (Last Reviewed 11/04/18 @ 15:55 by Ana Cristina Cobos) Acute encephalopathy (Acute) Dehydration (Acute) Subjective: Laying in the ED bed, fatigued appearance, intermittently interactive but falling asleep quickly. Objective: Physical Examination: General: awakes currently to stimuli, not alert, not oriented, intermittently cooperative, laying in the ED bed, no acute distress currently. Skin: normal color, turgor, no icterus, cyanosis except occasional extremity ecchymoses very staged. HEENT: AT/NC, EOM unable to be assessed as patient easily falling back asleep, lethargic, PERRLA, dry MM, no carotid bruits or JVD noted. Lungs: Breath sounds bilateral bases, moderate effort, no rales, ronchi or wheezing. Heart: Regular rate and rhythm; no gallop, rub audible. Abdomen: soft, NTTP, ND, normal BS, no HSM. Extremities: no cyanosis, clubbing, bilateral lower extremity ankle to distal fernandez edema, severe. Neurological: awakes currently to stimuli, not alert, not oriented, intermittently cooperative, laying in the ED bed, no acute distress currently; cognitive function not baseline intact; pupils equally reactive to light and accomodation; cranial nerves II-XII grossly normal difficult to assess given lethargy and sedate presentation, moving all 4 extremities, difficult to assess for focal deficit, strength currently appears severely globally decreased. Psychiatric: affect appears lethargic, flat, no acute evidence of depressive or anxiety feelings. - Physical Exam Vital Signs Temp Pulse Resp BP Pulse Ox 97.7 F L 80 16 118/81 H 99 11/12/18 20:45 11/12/18 23:37 11/12/18 23:37 11/12/18 23:37 11/12/18 23:37 Oxygen Flow Rate (L/min) 2 Oxygen Delivery Method Nasal Cannula Weight: 196 lb 10.437 oz Body Mass Index (BMI) 30.8 Finger Stick Blood Glucose 249 Laboratory Tests Past 24 Hrs 11/12/18 11/12/18 11/12/18 21:03 21:03 21:03 WBC 6.3 RBC 3.71 L Hgb 12.2 L Hct 36.7 L MCV 98.9 H MCH 32.9 H MCHC 33.2 RDW 15.0 H RDW Differential 53.1 H Plt Count 166 MPV 10.2 Immature Gran % (Auto) 1.000 H Neut % (Auto) 71.8 H Lymph % (Auto) 16.3 L Towner % (Auto) 9.8 Eos % (Auto) 0.6 Baso % (Auto) 0.5 Absolute Neuts (auto) 4.5 Absolute Lymphs (auto) 1.03 Total Counted Not Reportable PT 15.6 H INR 1.2 APTT 27.4 Specimen Type Sample Site pH Bicarbonate Actual POC Total CO2 Base Excess O2 Saturation ABG pCO2 ABG pO2 Kyle Test O2 Delivery Device Blood Gas Notified Whom Blood Gas Notified Time Sodium 127 L Potassium 5.2 H Chloride 94 L Carbon Dioxide 22.0 Anion Gap 11 BUN 45 H Creatinine 2.17 H Estim Creat Clear Calc 26.23 Est GFR (MDRD) Af Amer 38 L Est GFR (MDRD) Non-Af 31 L BUN/Creatinine Ratio 20.7 H Glucose 214 H Lactic Acid Calcium 8.5 Total Bilirubin 0.70 AST 26 ALT 23 Alkaline Phosphatase 176 H Troponin I 0.027 B-Natriuretic Peptide Total Protein 7.4 Albumin 3.4 Globulin 4.0 Albumin/Globulin Ratio 0.8 L Lipase 118 Urine Color Urine Clarity Urine pH Ur Specific Harleigh Urine Protein Urine Glucose (UA) Urine Ketones Urine Occult Blood Urine Nitrite Urine Bilirubin Urine Urobilinogen Ur Leukocyte Esterase Urine RBC Urine WBC Ur Squamous Epith Cells Urine Bacteria Hyaline Casts Urine Mucus 11/12/18 11/12/18 11/12/18 21:03 21:03 21:50 WBC RBC Hgb Hct MCV MCH MCHC RDW RDW Differential Plt Count MPV Immature Gran % (Auto) Neut % (Auto) Lymph % (Auto) Towner % (Auto) Eos % (Auto) Baso % (Auto) Absolute Neuts (auto) Absolute Lymphs (auto) Total Counted PT INR APTT Specimen Type ART Sample Site R Radial pH 7.40 Bicarbonate Actual 21.4 L POC Total CO2 22 Base Excess -3 L O2 Saturation 80 L ABG pCO2 34.3 L ABG pO2 44 L Kyle Test POS O2 Delivery Device Room Air Blood Gas Notified Whom ED MD Blood Gas Notified Time 2145 Sodium Potassium Chloride Carbon Dioxide Anion Gap BUN Creatinine Estim Creat Clear Calc Est GFR (MDRD) Af Amer Est GFR (MDRD) Non-Af BUN/Creatinine Ratio Glucose Lactic Acid 2.3 H Calcium Total Bilirubin AST ALT Alkaline Phosphatase Troponin I B-Natriuretic Peptide 542.9 H Total Protein Albumin Globulin Albumin/Globulin Ratio Lipase Urine Color Urine Clarity Urine pH Ur Specific Harleigh Urine Protein Urine Glucose (UA) Urine Ketones Urine Occult Blood Urine Nitrite Urine Bilirubin Urine Urobilinogen Ur Leukocyte Esterase Urine RBC Urine WBC Ur Squamous Epith Cells Urine Bacteria Hyaline Casts Urine Mucus 11/12/18 23:30 WBC RBC Hgb Hct MCV MCH MCHC RDW RDW Differential Plt Count MPV Immature Gran % (Auto) Neut % (Auto) Lymph % (Auto) Towner % (Auto) Eos % (Auto) Baso % (Auto) Absolute Neuts (auto) Absolute Lymphs (auto) Total Counted PT INR APTT Specimen Type Sample Site pH Bicarbonate Actual POC Total CO2 Base Excess O2 Saturation ABG pCO2 ABG pO2 Kyle Test O2 Delivery Device Blood Gas Notified Whom Blood Gas Notified Time Sodium Potassium Chloride Carbon Dioxide Anion Gap BUN Creatinine Estim Creat Clear Calc Est GFR (MDRD) Af Amer Est GFR (MDRD) Non-Af BUN/Creatinine Ratio Glucose Lactic Acid Calcium Total Bilirubin AST ALT Alkaline Phosphatase Troponin I B-Natriuretic Peptide Total Protein Albumin Globulin Albumin/Globulin Ratio Lipase Urine Color Jessie Urine Clarity Clear Urine pH 5.0 Ur Specific Harleigh 1.025 Urine Protein 30 H Urine Glucose (UA) Normal Urine Ketones Negative Urine Occult Blood Negative Urine Nitrite Negative Urine Bilirubin 1 H Urine Urobilinogen 1 H Ur Leukocyte Esterase 100 H Urine RBC 0-5 SEEN Urine WBC 0-5 SEEN Ur Squamous Epith Cells 0 SEEN Urine Bacteria 0 SEEN Hyaline Casts 10-25 SEEN Urine Mucus 0 SEEN Assessment/Plan All Active Problems (Last Reviewed 11/04/18 @ 15:55 by Ana Cristina Cobos) Acute encephalopathy (Acute) Dehydration (Acute) History of cardiac radiofrequency ablation (Resolved ~10/04/18) Epiploic appendagitis (Acute) Generalized weakness (Acute) Episode of syncope (Acute) Bronchitis (Acute) Aortocoronary bypass status (Resolved) Subdural hematoma (Resolved) The patient is a 78 y/o M w/ PMHx: CAD s/p CABG, HTN, HLD, PAF/Ventricular Arrhythmia status post cardiac ablation, Chronic Systolic CHF/Ischemic Cardiomyopathy s/p AICD, Diabetes mellitus type II, XOCHITL who presents to the [facility] ED on 11/13/18 noted to have recently transition from senior care facility to home and following has had progressively worsened intake, noted to be dehydrated with recent nausea and emesis bout x1 at home prior to ED presentation with additionally worsening weakness, debility, prompting family to return to the ED for patient evaluation. (1) Encephalopathy, acute, metabolic w/ Weakness, Debility, Adult Failure to Thrive: Patient w/ recent serial admissions with transition to senior care facilities and quick return secondary to debility and weakness. Suspect patient acute presentation secondary to dehydration coupled with poor reserve. Will admit to medical surgical floor, maintain on gentle hydration, maintain n.p.o. status as patient encephalopathic in the ED with fatigue and lethargy, restart oral home medication once improved, PT, OT, case management consultations for discharge planning. Given patient presentation best place likely senior care facility. (2) Hyponatremia, Suspected Hypovolemic, Acute on Chronic: Suspect acute on chronic given recent GI losses and recent poor intake. Admission Na 127, baseline 130-135, gently hydrate given CHF history, temporarily holding oral regimen given encephalopathy and fatigue, repeat BMP in AM. (3) CKD stage IV with insufficiency secondary to dehydration: Admission BUN/Cr 45/2.17, baseline Cr 1.7-2, near baseline, poor intake noted, will gently hydrate, repeat BMP in AM. (4) History of SDH: Prior history of fall with intracranial hemorrhage 06/2017 with keppra seizure prophylaxis, transitioned to IV while more lethargic, transition back to oral regimen once appropriate, ED CT Head without acute findings. (5) CAD: s/p CABG x 3 2001 [facility], SVG to the LAD; SVG to the PDA; radial artery to OM. Temporarily holding oral home regimen given lethargy, encephalopathic, restart once clinically improved. If not improved by a.m. for oral intake of medications will need to initiate CA ASA. (6) Hypertension: Temporarily holding home oral regimen, restart once clinically improved, PRN hydralazine. (7) Hypothyroidism: Temporarily holding home synthroid regimen, restart once clinically improved. (8) PAF/Ventricular Tachycardia/Arrhythmia: Temporarily holding home oral regimen, restart once clinically improved. (9) Chronic Systolic CHF, Ischemic Cardiomyopathy: s/p AICD. Encephalopathic, temporarily holding home oral regimen, restart once clinically improved, likely in a.m. 01/18/18 MAGDALENA w/ severely dilated LV, EF 30%, moderate severe segmental systolic dysfunction, transmitral diastolic flow velocities suggestive of moderate stage II diastolic dysfunction. (10) GERD: IV PPI. (11) Diabetes mellitus type II: Hold oral regimen, NPO status given encephalopathy, unsafe intake, ISS, accu checks. (12) XOCHITL: CPAP qHS. (13) AOCD: Admission Hgb 12.2, baseline 12, stable, repeat CBC in AM. (14) DVT Prophylaxis: SCDs, heparin. Code Visit OBSV E&M: [id number] Initial observation care L3
--- NOTE | 2018-11-13 00:39 | ED.VISSUMM ---
- ER Visit Summary Date of Service: 11/13/18 Chief Complaint: Altered mental status History of Present Illness: The patient is a 78 M who 1 week ago was discharged from [facility]. He was there following several stays in the hospital. The patient reportedly over the weekend started to decline and tonight could not even stand to transfer. Had an episode of vomiting at home and when he department. notes last bowel movement was 2-3 days ago. He has had a decreasing appetite. states that typically his weight is 181-183 today at home he weighed 186. The bed weight here in the department is 191. states that he is very lethargic and sometimes this happens when he becomes dehydrated. No reported fevers. Physical Examination: Afebrile vital signs are stable Gen: Well-nourished well-developed Head: Normocephalic atraumatic Eyes: Perrl EOMI ENT: TMs clear no rhinorrhea moist mucous membranes Neck: Supple no lymphadenopathy no JVD nontender CVS: Regular rate rhythm 4 out of 6 systolic murmur Respiratory: No distress clear to auscultation bilaterally chest nontender Abdomen: Soft nontender nondistended normal bowel sounds no masses Back: Nontender Extremity: Nontender stasis changes Skin: Normal color no rash Neuro: Patient is lethargic but will wake up and participate in exam he moves all 4 extremities Test Results: EKG is a paced rhythm. Chest x-ray showed no acute findings. CT the brain was negative for acute and CT the pelvis negative for acute. PH is 7.4 PCO2 normal. PaO2 was low however there was concern that this was a mixed specimen. White blood cell count 6.3 hemoglobin 12.2. Creatinine slightly elevated off its baseline 2.17 to BUN of 45 urinalysis negative. Natruretic peptide 542 lactic acid 2.3. Emergency Department Course and Treatment: Patient received small amounts of IV fluids. Because of his decline over the weekend and inability to function at home plan is admission Impression: 1. Acute kidney injury 2. Weakness 3. Encephalopathy This note was generated with [employer] dictation software. It may contain incorrect words, spelling, and punctuation that were not noted in review of the chart prior to signing ED Disposition - Plan for ED Patient: Chief Complaint: Alt LOC Referrals: Anabella Lomax MD [Primary Care Provider] -
[2018-11-13] MEDS: Pramipexole Di-HCl 1 MG Tablet PO ×3 (01:05→20:57)
[2018-11-13 01:18] LABS: Reflex Lactate? Y
[2018-11-13 02:39] LABS: Magnesium 2.3 mg/dL (1.6-2.6); Thyroid Stim Hormone (TSH) 2.45 uIU/mL (0.358-3.74)
[2018-11-13] MEDS: Heparin Injection (Vial) 5,000 UNIT/ML VIAL 5000 UNIT SC ×3 (05:05→20:58)
[2018-11-13] MEDS: Insulin Lispro 100 UNIT/ML INSULN.PEN SC ×4 (05:05→20:59)
[2018-11-13 05:16] LABS: Bedside Glucose 187 mg/dL (70-110)
[2018-11-13 06:06] LABS: Absolute Lymphocyte Count 1.26 X10^3/ul (0.83-4.51); Absolute Neutrophil Count 4.4 X10^3/uL (2.0-7.7); Basophil# 0.02 X10^3/uL; Basophil% 0.3 % (0-1); Eosinophil# 0.02 X10^3/uL; Eosinophils% 0.3 % (0-5); Hematocrit 34.8 % (40-54); Hemoglobin 11.6 g/dl (13.0-16.5); Lymphocyte # 1.26 X10^3/ul (4.0); Lymphocyte % 19.3 % (19-41); Mean Corp Hgb Conc 33.3 g/gl (32-36); Mean Corpuscular Volume 98.9 fL (80-94); Mean Platelet Vol. 10.2 fl (6.2-12.0); Monocyte# 0.73 X10^3/uL; Monocyte% 11.2 % (0-10); Neutrophil # 4.43 X10^3/uL (2.7-7.7); Neutrophil % 67.8 % (47-70); Platelet Count 148 K/mm3 (150-450); RBC Distribution Width CV 14.7 % (11.6-14.6); RBC Distribution Width SD 50.3 fl (35.1-43.9); Red Blood Count 3.52 M/mm3 (4.6-6.2); White Blood Count 6.5 K/mm3 (4.4-11.0)
[2018-11-13 06:18] LABS: POSITIVE COUNT NO; POSITIVE DIFFERENTIAL NO; POSITIVE MORPHOLOGY NO
[2018-11-13 06:24] LABS: Anion Gap 13 (5-15); BUN 49 mg/dL (7-18); BUN/Creat Ratio 23.8 RATIO (10-20); Calcium,Total 8.5 mg/dL (8.5-10.1); Chloride 97 mmol/L (98-107); Creatinine, Serum 2.06 mg/dL (0.70-1.30); EST Glomerular Filtration Rate 33 mL/min (>60); Est Glom Filt Rate - Afr Amer 40 mL/min (>60); Estimated Creatinine Clearance 27.63 ml/min; Glucose 169 mg/dL (74-106); Sodium Level 130 mmol/L (136-145)
--- NOTE | 2018-11-13 09:07 | NURSING ---
Dr Lomax called for pt update. informed pt that she called
[2018-11-13] MEDS: Lactulose 20 GM/30 ML UDC PO (09:47)
[2018-11-13] MEDS: levETIRAcetam IV 100 ML 400 MG IV (09:48)
--- NOTE | 2018-11-13 11:24 | CASEMGMT ---
Addendum entered by Aleta Valladares 11/13/18 12:16: Fabiola in TCU informed this worker that she has a bed and will review referral. SW updated pt and pt's and son that pt may be able to go TCU pending acceptance. Original Note: Social Work Note Physician informed this worker that pt and pt's family requesting pt go back to [facility] for [facility] if pt is unable to return home. SW attempted to meet with pt, pt soundly sleeping. Pt's [place] and pt's son Darrel present at [facility]. Pt's and son inquire about TCU. SW informed pt's and son that TCU doesn't have any beds at this time. Pt's and son agreeable to [facility] and agreeable to referral being sent. SW informed pt's and son that referral can be stopped if pt and pt's family want pt to return home instead of going to [facility]. Pt and pt's states understanding. TAYLOR placed a call to Shaneka at [facility] and left her a message informing her on referral for pt. SW faxed referral to [facility]. Plan: [facility] pending acceptance and pre-cert Aleta Valladares CLINICAL INFORMATICS SPECIALIST, SURGICAL TECHNICIAN
[2018-11-13 12:10] LABS: Bedside Glucose 165 mg/dL (70-110)
--- NOTE | 2018-11-13 12:20 | CASEMGMT ---
Social Work Note Healthcare Living Will on file, General Power of Supervisor Chlorine Liquefaction on file but no healthcare POA. Aleta Valladares OPEN HEARTH WORKER, PUNCH OPERATOR
[2018-11-13] MEDS: Lactulose 20 GM/30 ML UDC 30 GM PO (13:31)
[2018-11-13] MEDS: Magnesium Oxide 400 MG Tablet PO (13:31)
[2018-11-13] MEDS: Metoprolol(XL)Succ 25 MG Tablet PO (13:31)
[2018-11-13] MEDS: Aspirin E.C. 81 MG Tablet PO (13:31)
[2018-11-13] MEDS: hydrALAZINE 25 MG Tablet PO (13:32)
[2018-11-13] MEDS: Isosorbide Mononitrate 60 MG Tablet PO (13:32)
[2018-11-13] MEDS: Ranolazine 500 MG Tablet 1000 MG PO ×2 (13:32→20:57)
[2018-11-13] MEDS: Mexiletine 150 MG Capsule PO ×2 (13:33→20:57)
--- NOTE | 2018-11-13 14:09 | CHAPLAIN ---
Type of Pastoral Visit _x__ Initial Visit ___ Follow-up Visit ___ On-call Visit ___ General Patient Visit ___ Spiritual Assessment ___ Family Conference ___ Bereavement ___ Rapid Response ___ Code Blue ___ Other (describe below) Pastoral Care Referral From _x__ Patient _x__ Family ___ Nurse ___ Physician ___ Fish Peddler ___ Bilingual Branch Manager ___ Other (describe below) Sacrament/Intervention _x__ Active listening ___ Anointing ___ Confucianist ___ Bereavement ___ Communion _x__ Evelyne exploration ___ ___ Life review _x__ Prayer ___ Reconciliation ___ Sacrament of Sick _x__ Supportive presence ___ Wedding ___ Other (describe below) Pastoral Comments patient, spouse, and son in room; pt has been seen before by this adult crossing guard in previous admissions; spouse requested spiritual support and pt is welcoming of this visit; spouse indicates that they are in need of answers about pt's health and cause of problems; pt talks of his evelyne journey and gratitude for his family; pt asks for prayers; RN brings meds in for pt and time given to care for that; prayer and spiritual support offered
--- NOTE | 2018-11-13 15:54 | CASEMGMT ---
Social Work Note SW spoke with Fabiola in TCU who states she is able to accept pt and has submitted for pre-cert. Plan: TCU pending pre-cert Aleta Valladares AUGER MILL OPERATOR, LABEL PRESS OPERATOR
--- NOTE | 2018-11-13 17:36 | PCM.HOSP.N ---
Hospitalist Note Patient seen and examined briefly today, I talked with his son and who is in the room today, patient is not confused this morning but he appears lethargic. I am not sure what role his minimally elevated ammonia level place in his encephalopathy, I have decided to place him on daily lactulose. Patient will continue with PT and OT, wants the patient to go back to care home for a short period of time, this will have to be approved by his insurance.
[2018-11-13] MEDS: Bumetanide 0.5 MG Tablet 1 MG PO (18:25)
[2018-11-13] MEDS: Glucerna Shake 120 ML LIQUID PO ×2 (18:26→20:57)
[2018-11-13 18:41] LABS: Bedside Glucose 163 mg/dL (70-110)
[2018-11-13] MEDS: levETIRAcetam 1,000 MG Tablet 1000 MG PO (20:56)
[2018-11-13] MEDS: Atorvastatin Calcium 10 MG Tablet PO (20:57)
[2018-11-13] MEDS: Mirtazapine 15 MG Tablet PO (20:57)
[2018-11-13 22:50] LABS: Bedside Glucose 191 mg/dL (70-110)
[2018-11-14] VITALS (10 sets, daily range): BP systolic 97–114; BP diastolic 62–77; PULSE 79–98; RESP 14–17; TEMP 36.4–36.7; O2SAT 97–100
[2018-11-14 06:10] LABS: Absolute Lymphocyte Count 1.31 X10^3/ul (0.83-4.51); Absolute Neutrophil Count 3.7 X10^3/uL (2.0-7.7); Basophil# 0.01 X10^3/uL; Basophil% 0.2 % (0-1); Eosinophil# 0.14 X10^3/uL; Eosinophils% 2.3 % (0-5); Hematocrit 33.9 % (40-54); Hemoglobin 11.1 g/dl (13.0-16.5); Lymphocyte # 1.31 X10^3/ul (4.0); Lymphocyte % 21.9 % (19-41); Mean Corp Hgb Conc 32.7 g/gl (32-36); Mean Corpuscular Hgb 32.6 pg (27.0-32.0); Mean Corpuscular Volume 99.4 fL (80-94); Mean Platelet Vol. 9.6 fl (6.2-12.0); Monocyte# 0.71 X10^3/uL; Monocyte% 11.9 % (0-10); Neutrophil # 3.74 X10^3/uL (2.7-7.7); Neutrophil % 62.5 % (47-70); Platelet Count 131 K/mm3 (150-450); RBC Distribution Width CV 15.3 % (11.6-14.6); RBC Distribution Width SD 54.4 fl (35.1-43.9); Red Blood Count 3.41 M/mm3 (4.6-6.2)
[2018-11-14 06:13] LABS: POSITIVE COUNT NO; POSITIVE DIFFERENTIAL NO; POSITIVE MORPHOLOGY NO
[2018-11-14 06:27] LABS: Anion Gap 12 (5-15); BUN 43 mg/dL (7-18); BUN/Creat Ratio 21.2 RATIO (10-20); Calcium,Total 8.4 mg/dL (8.5-10.1); Chloride 100 mmol/L (98-107); Creatinine, Serum 2.03 mg/dL (0.70-1.30); EST Glomerular Filtration Rate 34 mL/min (>60); Est Glom Filt Rate - Afr Amer 41 mL/min (>60); Estimated Creatinine Clearance 28.04 ml/min; Glucose 132 mg/dL (74-106); Potassium 4.1 mmol/L (3.5-5.1); Sodium Level 134 mmol/L (136-145)
[2018-11-14] MEDS: Mexiletine 150 MG Capsule PO ×3 (06:28→22:05)
[2018-11-14] MEDS: Levothyroxine 50 MCG Tablet PO (06:28)
[2018-11-14] MEDS: Heparin Injection (Vial) 5,000 UNIT/ML VIAL 5000 UNIT SC ×3 (06:29→22:05)
[2018-11-14] MEDS: hydrALAZINE 25 MG Tablet PO ×3 (06:29→22:06)
[2018-11-14 06:45] LABS: Bedside Glucose 130 mg/dL (70-110)
[2018-11-14 07:08] LABS: HEPATITIS B SURFACE AG Negative (Negative); Hepatitis A AB, Total Negative (Negative); Hepatitis A IgM Antibody Negative (Negative); Hepatitis B Core AB IgM Negative (Negative); Hepatitis B Core Ab Total Negative (Negative); Hepatitis C Ab 0.1 s/co ratio (0.0-0.9)
[2018-11-14] MEDS: levETIRAcetam 1,000 MG Tablet 1000 MG PO ×2 (08:39→22:05)
[2018-11-14] MEDS: Aspirin E.C. 81 MG Tablet PO (08:39)
[2018-11-14] MEDS: Pramipexole Di-HCl 1 MG Tablet PO ×2 (08:39→22:06)
[2018-11-14] MEDS: Bumetanide 0.5 MG Tablet 1 MG PO ×2 (08:39→16:41)
[2018-11-14] MEDS: Isosorbide Mononitrate 60 MG Tablet PO (08:39)
[2018-11-14] MEDS: Magnesium Oxide 400 MG Tablet PO (08:39)
[2018-11-14] MEDS: Ranolazine 500 MG Tablet 1000 MG PO ×2 (08:39→22:05)
[2018-11-14] MEDS: Lactulose 20 GM/30 ML UDC PO (08:46)
[2018-11-14 09:39] LABS: Hep B Surface Antibodies Non Reactive (.)
[2018-11-14] MEDS: Metoprolol(XL)Succ 25 MG Tablet PO (10:07)
[2018-11-14] MEDS: 0.9% Normal Saline 1,000 ML 50 ML IV (10:44)
[2018-11-14] MEDS: 0.9% NaCl Peripheral Flush Adult/Peds IV (10:44)
[2018-11-14 12:35] LABS: Bedside Glucose 159 mg/dL (70-110)
--- NOTE | 2018-11-14 13:46 | PCM.PN.HOSP ---
Patient Problems: Active and Suspected Problems (Last Reviewed 11/04/18 @ 15:55 by Ana Cristina Cobos) Acute encephalopathy (Acute) Dehydration (Acute) Subjective: Patient was seen and examined. Much awake. No acute events overnight. at the bedside. Intermittently confused. Denied any complaints. No nausea or vomiting. Has had one bowel movement. Had 3 bowel movements yesterday. Review of systems was negative. Vitals/I&O's: Vital Signs Temp Pulse Resp BP Pulse Ox 97.7 F L 80 16 107/67 97 11/14/18 07:20 11/14/18 10:07 11/14/18 07:20 11/14/18 10:07 11/14/18 07:34 Oxygen Flow Rate (L/min) 2 Oxygen Delivery Method Room Air Weight: 84.9 kg Body Mass Index (BMI) 29.5 Finger Stick Blood Glucose 249 Intake and Output for Last 24 Hours 11/12/18 11/13/18 11/14/18 23:59 23:59 23:59 Intake Total 1744 / 1744 1580 / 1580 Output Total 150 / 150 550 / 550 Balance 1594 / 1594 1030 / 1030 General: Alert, Oriented x3, Cooperative, No apparent distress HEENT: Atraumatic, PERRLA, EOMI, Normocephalic Oral: Moist Mucosa Neck: Supple, No JVD, Negative Carotid Bruits Lungs: Clear to auscultation, Normal air movement Cardiovascular: Regular rate, Regular Rhythm, Normal S1, Normal S2, Murmur - 2/6 holosystolic murmur Abdomen: Bowel Sounds Present, Soft, Non Tender, Non-Distended, No Hepato-splenomegaly Extremities: No edema Skin: No rashes, No breakdown Musculoskeletal: No Tenderness to Palpation of Joints or Extremities Lymphatic: No Cervical, Supraclavicular, or Inguinal Adenopathy Neurological: Cranial nerves II-XII grossly intact, Neuro grossly intact Psych/Mental Status: Normal Affect, Appropriate Laboratory Results 11/13/18 10:45: Hepatitis A IgM Ab Negative, Hepatitis A Ab Total Negative, Hep Bs Antigen Negative, Hep B Core Total Ab Negative, Hep B Core IgM Ab Negative, Hepatitis C Ab Confirm 0.1, Hepatitis C Comment Comment 11/13/18 18:23: POC Glucose 163 H 11/13/18 20:56: POC Glucose 191 H 11/14/18 05:56: Ammonia 38.0 H 11/14/18 05:56: WBC 6.0, RBC 3.41 L, Hgb 11.1 L, Hct 33.9 L, MCV 99.4 H, MCH 32.6 H, MCHC 32.7, RDW 15.3 H, RDW Differential 54.4 H, Plt Count 131 L, MPV 9.6, Immature Gran % (Auto) 1.200 H, Neut % (Auto) 62.5, Lymph % (Auto) 21.9, [place] % (Auto) 11.9 H, Eos % (Auto) 2.3, Baso % (Auto) 0.2, Absolute Neuts (auto) 3.7, Absolute Lymphs (auto) 1.31, Total Counted Not Reportable 11/14/18 05:56: Sodium 134 L, Potassium 4.1, Chloride 100, Carbon Dioxide 22.0, Anion Gap 12, BUN 43 H, Creatinine 2.03 H, Estim Creat Clear Calc 28.04, Est GFR (MDRD) Af Amer 41 L, Est GFR (MDRD) Non-Af 34 L, BUN/Creatinine Ratio 21.2 H, Glucose 132 H, Calcium 8.4 L 11/14/18 06:27: POC Glucose 130 H 11/14/18 12:28: POC Glucose 159 H Current Medications Acetaminophen (Tylenol) 650 mg RECTAL Q4H PRN PRN PRN Reason: fever, pain Aspirin (Ecotrin) 81 mg PO DAILY@0800 [facility] Last Admin: 11/14/18 08:39 Dose: 81 mg Atorvastatin Calcium (Lipitor) 10 mg PO DAILY@2200 [facility] Last Admin: 11/13/18 20:57 Dose: 10 mg Bumetanide (Bumex) 1 mg PO BIDLX [facility] Last Admin: 11/14/18 08:39 Dose: 1 mg Heparin Sodium (Porcine) (Heparin Na) 5,000 unit SC Q8 [facility] Last Admin: 11/14/18 06:29 Dose: 5,000 unit Hydralazine HCl (Apresoline) 25 mg PO TID [facility] Last Admin: 11/14/18 06:29 Dose: 25 mg Sodium Chloride () 1,000 mls @ 50 mls/hr IV .Q20H [facility] Stop: 11/14/18 20:24 Last Admin: 11/14/18 10:44 Dose: 50 mls/hr Insulin Human Lispro (Humalog Kwikpen (Bkc)) 0 unit SC ACHS [facility]; Protocol Last Admin: 11/14/18 06:31 Dose: Not Given Isosorbide Mononitrate (Imdur) 60 mg PO DAILY [facility] Last Admin: 11/14/18 08:39 Dose: 60 mg Lactulose (Chronulac, Cephulac) 20 gm PO DAILY [facility] Last Admin: 11/14/18 08:46 Dose: 20 gm Levetiracetam (Keppra Tablet) 1,000 mg PO BID [facility] Last Admin: 11/14/18 08:39 Dose: 1,000 mg Levothyroxine Sodium (Synthroid) 50 mcg PO DAILY@0600 [facility] Last Admin: 11/14/18 06:28 Dose: 50 mcg Magnesium Hydroxide (Milk Of Magnesia) 30 ml PO DAILY PRN PRN PRN Reason: Constipation [facility]Ox 400) [facility] Last Admin: 11/14/18 08:39 Dose: 400 mg Metoprolol Succinate (Toprol Xl (Beta [place])) 25 mg PO DAILY [facility] Last Admin: 11/14/18 10:07 Dose: 25 mg Mexiletine HCl (Mexitil) 150 mg PO Q8H [facility] Last Admin: 11/14/18 06:28 Dose: 150 mg Mirtazapine (Remeron) 15 mg PO QHS [facility] Last Admin: 11/13/18 20:57 Dose: 15 mg Nitroglycerin (Nitrostat) 0.4 mg SUBLINGUAL Q5M PRN PRN Reason: CHEST PAIN Nutritional Formula (Lactose Free) (Glucerna Shake) 120 ml PO 4X/DAY [facility] Last Admin: 11/14/18 08:44 Dose: Not Given Ondansetron HCl (Zofran) 4 mg IV Q8H PRN PRN PRN Reason: NAUSEA Potassium Chloride (K-Dur) [facility] Last Admin: 11/14/18 08:39 Dose: 20 meq Pramipexole Dihydrochloride (Mirapex) 1 mg PO BID [facility] Last Admin: 11/14/18 08:39 Dose: 1 mg Ranolazine (Ranexa) 1,000 mg PO BID [facility] Last Admin: 11/14/18 08:39 Dose: 1,000 mg Sodium Chloride () 5 - 15 ml IV UD PRN PRN Reason: SALINE FLUSH Last Admin: 11/14/18 10:44 Dose: 10 ml Medical Necessity - Tobacco Use Smoking Status: Former smoker Tobacco Use: Non-smoker Assessment/Plan All Active Problems (Last Reviewed 11/04/18 @ 15:55 by Ana Cristina Cobos) Acute encephalopathy (Acute) Dehydration (Acute) History of cardiac radiofrequency ablation (Resolved ~10/04/18) Epiploic appendagitis (Acute) Generalized weakness (Acute) Episode of syncope (Acute) Bronchitis (Acute) Aortocoronary bypass status (Resolved) Subdural hematoma (Resolved) 78-year-old male with multiple comorbidities admitted with lethargy, poor p.o. intake and confusion. 1. Acute metabolic encephalopathy secondary to dehydration, hyperammonemia, improving, continue to monitor 2. Hyperammonemia, unclear etiology, hepatitis profile is negative, ammonia level decreased to 33 from 58, repeat ammonia in a.m. 3. Hyponatremia, hypovolemic, improving, will continue on gentle fluids, labs in am 4. CKD stage IV, cr is table at 2.03, will continue on fluids 5. Seizure disorder, history of SDH 6. CAD status post CABG, on aspirin and statin and beta-mahogany 7. Hypertension, controlled, on hydralazine, metoprolol 8. PAF/chronic systolic CHF/ischemic cardiomyopathy status post AICD, on aspirin, statin, Bumex, Imdur, metoprolol, hydralazine, no signs of acute exacerbation 9. Type 2 DM, blood sugars are stable, off Januvia, will continue on insulin sliding scale 11. XOCHITL on CPAP 12. DVT PPx- Heparin SC Code Visit Inpatient E&M: 86464 Subs Hosp L2
--- NOTE | 2018-11-14 13:57 | PN_ITS ---
Patient Problems: Active and Suspected Problems (Last Reviewed 11/04/18 @ 15:55 by Ana Cristina Cobos) Acute encephalopathy (Acute) Dehydration (Acute) Subjective: Patient was seen and examined. Much awake. No acute events overnight. at the bedside. Intermittently confused. Denied any complaints. No nausea or vomiting. Has had one bowel movement. Had 3 bowel movements yesterday. Review of systems was negative. Vitals/I&O's: Vital Signs Temp Pulse Resp BP Pulse Ox 97.7 F L 80 16 107/67 97 11/14/18 07:20 11/14/18 10:07 11/14/18 07:20 11/14/18 10:07 11/14/18 07:34 Oxygen Flow Rate (L/min) 2 Oxygen Delivery Method Room Air Weight: 84.9 kg Body Mass Index (BMI) 29.5 Finger Stick Blood Glucose 249 Intake and Output for Last 24 Hours 11/12/18 11/13/18 11/14/18 23:59 23:59 23:59 Intake Total 1744 / 1744 1580 / 1580 Output Total 150 / 150 550 / 550 Balance 1594 / 1594 1030 / 1030 General: Alert, Oriented x3, Cooperative, No apparent distress HEENT: Atraumatic, PERRLA, EOMI, Normocephalic Oral: Moist Mucosa Neck: Supple, No JVD, Negative Carotid Bruits Lungs: Clear to auscultation, Normal air movement Cardiovascular: Regular rate, Regular Rhythm, Normal S1, Normal S2, Murmur - 2/6 holosystolic murmur Abdomen: Bowel Sounds Present, Soft, Non Tender, Non-Distended, No Hepato- splenomegaly Extremities: No edema Skin: No rashes, No breakdown Musculoskeletal: No Tenderness to Palpation of Joints or Extremities Lymphatic: No Cervical, Supraclavicular, or Inguinal Adenopathy Neurological: Cranial nerves II-XII grossly intact, Neuro grossly intact Psych/Mental Status: Normal Affect, Appropriate Laboratory Results 11/13/18 10:45: Hepatitis A IgM Ab Negative, Hepatitis A Ab Total Negative, Hep Bs Antigen Negative, Hep B Core Total Ab Negative, Hep B Core IgM Ab Negative, Hepatitis C Ab Confirm 0.1, Hepatitis C Comment Comment 11/13/18 18:23: POC Glucose 163 H 11/13/18 20:56: POC Glucose 191 H 11/14/18 05:56: Ammonia 38.0 H 11/14/18 05:56: WBC 6.0, RBC 3.41 L, Hgb 11.1 L, Hct 33.9 L, MCV 99.4 H, MCH 32.6 H, MCHC 32.7, RDW 15.3 H, RDW Differential 54.4 H, Plt Count 131 L, MPV 9.6, Immature Gran % (Auto) 1.200 H, Neut % (Auto) 62.5, Lymph % (Auto) 21.9, [place] % (Auto) 11.9 H, Eos % (Auto) 2.3, Baso % (Auto) 0.2, Absolute Neuts (auto) 3.7, Absolute Lymphs (auto) 1.31, Total Counted Not Reportable 11/14/18 05:56: Sodium 134 L, Potassium 4.1, Chloride 100, Carbon Dioxide 22.0, Anion Gap 12, BUN 43 H, Creatinine 2.03 H, Estim Creat Clear Calc 28.04, Est GFR (MDRD) Af Amer 41 L, Est GFR (MDRD) Non-Af 34 L, BUN/Creatinine Ratio 21.2 H, Glucose 132 H, Calcium 8.4 L 11/14/18 06:27: POC Glucose 130 H 11/14/18 12:28: POC Glucose 159 H Current Medications Acetaminophen (Tylenol) 650 mg RECTAL Q4H PRN PRN PRN Reason: fever, pain Aspirin (Ecotrin) 81 mg PO DAILY@0800 [facility] Last Admin: 11/14/18 08:39 Dose: 81 mg Atorvastatin Calcium (Lipitor) 10 mg PO DAILY@2200 [facility] Last Admin: 11/13/18 20:57 Dose: 10 mg Bumetanide (Bumex) 1 mg PO BIDLX [facility] Last Admin: 11/14/18 08:39 Dose: 1 mg Heparin Sodium (Porcine) (Heparin Na) 5,000 unit SC Q8 [facility] Last Admin: 11/14/18 06:29 Dose: 5,000 unit Hydralazine HCl (Apresoline) 25 mg PO TID [facility] Last Admin: 11/14/18 06:29 Dose: 25 mg Sodium Chloride () 1,000 mls @ 50 mls/hr IV .Q20H [facility] Stop: 11/14/18 20:24 Last Admin: 11/14/18 10:44 Dose: 50 mls/hr Insulin Human Lispro (Humalog Kwikpen (Bkc)) 0 unit SC ACHS [facility]; Protocol Last Admin: 11/14/18 06:31 Dose: Not Given Isosorbide Mononitrate (Imdur) 60 mg PO DAILY [facility] Last Admin: 11/14/18 08:39 Dose: 60 mg Lactulose (Chronulac, Cephulac) 20 gm PO DAILY [facility] Last Admin: 11/14/18 08:46 Dose: 20 gm Levetiracetam (Keppra Tablet) 1,000 mg PO BID [facility] Last Admin: 11/14/18 08:39 Dose: 1,000 mg Levothyroxine Sodium (Synthroid) 50 mcg PO DAILY@0600 [facility] Last Admin: 11/14/18 06:28 Dose: 50 mcg Magnesium Hydroxide (Milk Of Magnesia) 30 ml PO DAILY PRN PRN PRN Reason: Constipation [facility] ([facility]Ox 400) [facility] Last Admin: 11/14/18 08:39 Dose: 400 mg Metoprolol Succinate (Toprol Xl (Beta [place])) 25 mg PO DAILY [facility] Last Admin: 11/14/18 10:07 Dose: 25 mg Mexiletine HCl (Mexitil) 150 mg PO Q8H [facility] Last Admin: 11/14/18 06:28 Dose: 150 mg Mirtazapine (Remeron) 15 mg PO QHS [facility] Last Admin: 11/13/18 20:57 Dose: 15 mg Nitroglycerin (Nitrostat) 0.4 mg SUBLINGUAL Q5M PRN PRN Reason: CHEST PAIN Nutritional Formula (Lactose Free) (Glucerna Shake) 120 ml PO 4X/DAY [facility] Last Admin: 11/14/18 08:44 Dose: Not Given Ondansetron HCl (Zofran) 4 mg IV Q8H PRN PRN PRN Reason: NAUSEA Potassium Chloride (K-Dur) [facility]q [facility] Last Admin: 11/14/18 08:39 Dose: 20 meq Pramipexole Dihydrochloride (Mirapex) 1 mg PO BID [facility] Last Admin: 11/14/18 08:39 Dose: 1 mg Ranolazine (Ranexa) 1,000 mg PO BID [facility] Last Admin: 11/14/18 08:39 Dose: 1,000 mg Sodium Chloride () 5 - 15 ml IV UD PRN PRN Reason: SALINE FLUSH Last Admin: 11/14/18 10:44 Dose: 10 ml Medical Necessity - Tobacco Use Smoking Status: Former smoker Tobacco Use: Non-smoker Assessment/Plan All Active Problems (Last Reviewed 11/04/18 @ 15:55 by Ana Cristina Cobos) Acute encephalopathy (Acute) Dehydration (Acute) History of cardiac radiofrequency ablation (Resolved ~10/04/18) Epiploic appendagitis (Acute) Generalized weakness (Acute) Episode of syncope (Acute) Bronchitis (Acute) Aortocoronary bypass status (Resolved) Subdural hematoma (Resolved) 78-year-old male with multiple comorbidities admitted with lethargy, poor p.o. intake and confusion. 1. Acute metabolic encephalopathy secondary to dehydration, hyperammonemia, improving, continue to monitor 2. Hyperammonemia, unclear etiology, hepatitis profile is negative, ammonia level decreased to 33 from 58, repeat ammonia in a.m. 3. Hyponatremia, hypovolemic, improving, will continue on gentle fluids, labs in am 4. CKD stage IV, cr is table at 2.03, will continue on fluids 5. Seizure disorder, history of SDH 6. CAD status post CABG, on aspirin and statin and beta-mahogany 7. Hypertension, controlled, on hydralazine, metoprolol 8. PAF/chronic systolic CHF/ischemic cardiomyopathy status post AICD, on aspirin, statin, Bumex, Imdur, metoprolol, hydralazine, no signs of acute exacerbation 9. Type 2 DM, blood sugars are stable, off Januvia, will continue on insulin sliding scale 11. XOCHITL on CPAP 12. DVT PPx- Heparin SC Code Visit Inpatient E&M: 06156 Subs Hosp L2
[2018-11-14] MEDS: Insulin Lispro 100 UNIT/ML INSULN.PEN SC ×3 (14:06→22:05)
[2018-11-14] MEDS: Glucerna Shake 120 ML LIQUID PO ×3 (14:09→22:04)
[2018-11-14 17:01] LABS: Bedside Glucose 174 mg/dL (70-110)
[2018-11-14] MEDS: Mirtazapine 15 MG Tablet PO (22:06)
[2018-11-14] MEDS: Atorvastatin Calcium 10 MG Tablet PO (22:06)
[2018-11-14 22:20] LABS: Bedside Glucose 168 mg/dL (70-110)
[2018-11-15 05:21] VITALS: BP 109/73; PULSE 79; RESP 14; TEMP 36.6; O2SAT 95
[2018-11-15 05:25] VITALS: PULSE 79
[2018-11-15] MEDS: Mexiletine 150 MG Capsule PO ×2 (05:25→14:30)
[2018-11-15] MEDS: Heparin Injection (Vial) 5,000 UNIT/ML VIAL 5000 UNIT SC ×2 (05:25→14:28)
[2018-11-15] MEDS: hydrALAZINE 25 MG Tablet PO ×2 (05:25→14:28)
[2018-11-15] MEDS: Levothyroxine 50 MCG Tablet PO (05:26)
[2018-11-15 06:21] LABS: Absolute Lymphocyte Count 1.46 X10^3/ul (0.83-4.51); Basophil# 0.04 X10^3/uL; Basophil% 0.5 % (0-1); Eosinophil# 0.18 X10^3/uL; Eosinophils% 2.4 % (0-5); Hematocrit 33.9 % (40-54); Hemoglobin 11.2 g/dl (13.0-16.5); Lymphocyte # 1.46 X10^3/ul (4.0); Lymphocyte % 19.3 % (19-41); Mean Platelet Vol. 10.3 fl (6.2-12.0); Monocyte# 0.78 X10^3/uL; Monocyte% 10.3 % (0-10); Platelet Count 135 K/mm3 (150-450); RBC Distribution Width SD 51.7 fl (35.1-43.9); Red Blood Count 3.39 M/mm3 (4.6-6.2); White Blood Count 7.6 K/mm3 (4.4-11.0)
[2018-11-15 06:28] LABS: POSITIVE COUNT NO; POSITIVE DIFFERENTIAL NO; POSITIVE MORPHOLOGY NO
[2018-11-15 06:41] LABS: ALB/GLOB Ratio 0.9 RATIO (0.9-2.4); AST(SGOT) 19 U/L (15-37); Alanine Aminotransfer ALT/SGPT 21 U/L (16-61); Alkaline Phosphatase 163 U/L (45-117); Anion Gap 10 (5-15); BUN 37 mg/dL (7-18); BUN/Creat Ratio 20.1 RATIO (10-20); Calcium,Total 8.3 mg/dL (8.5-10.1); Chloride 100 mmol/L (98-107); Creatinine, Serum 1.84 mg/dL (0.70-1.30); EST Glomerular Filtration Rate 38 mL/min (>60); Est Glom Filt Rate - Afr Amer 46 mL/min (>60); Estimated Creatinine Clearance 30.93 ml/min; Globulin 3.5 g/dL (2.2-4.2); Glucose 150 mg/dL (74-106); Potassium 4.3 mmol/L (3.5-5.1); Protein, Total 6.5 g/dL (6.4-8.2); Sodium Level 132 mmol/L (136-145)
[2018-11-15] MEDS: Insulin Lispro 100 UNIT/ML INSULN.PEN SC ×2 (06:54→11:40)
[2018-11-15 07:01] LABS: Bedside Glucose 169 mg/dL (70-110)
--- NOTE | 2018-11-15 08:32 | CASEMGMT ---
Addendum entered by Aleta Valladares 11/15/18 10:57: Pt's updated on approval to go to TCU. Plan: TCU today Original Note: Social Work Note SW received message from Fabiola in TCU stating pre-cert has been obtained and pt is able to discharge today. Plan: TCU today Aleta Valladares FRAME TENDER, CRYPTOGRAPHIC CLERK
[2018-11-15] MEDS: Isosorbide Mononitrate 60 MG Tablet PO (10:08)
[2018-11-15 10:09] VITALS: BP 122/73; PULSE 79
[2018-11-15] MEDS: Bumetanide 0.5 MG Tablet 1 MG PO (10:09)
[2018-11-15] MEDS: Glucerna Shake 120 ML LIQUID PO ×2 (10:09→14:27)
[2018-11-15] MEDS: Metoprolol(XL)Succ 25 MG Tablet PO (10:09)
--- NOTE | 2018-11-15 10:09 | PCM.TXEXTCAR ---
- Diet 11/13/18 09:32 Diet: Cardiac: Calorie-Controlled Is pt able to select menu?: Yes Diet Comments: eat when alert How many daily calories?: 1800 calorie - Routine Orders/Code Status Routine Lab Work: CBC - within 3 days, BMP - within 3 days, - - ammonia level daily x 3 days Code Status: Full Code - Wound(s) coccyx Wound Type: Pressure Injury - Therapies Weight Bearing: Weight bearing as tolerated Physical Therapy: Eval and Treat Occupational Therapy: Eval and Treat - Allergies/Procedures Done in Hospital Allergies/Adverse Reactions: Allergies amiodarone Allergy (Verified 11/13/18 01:51) dizziness meperidine [From Demerol] Allergy (Verified 11/12/18 20:50) Low blood pressure spironolactone Allergy (Verified 11/12/18 20:50) Nausea simvastatin Adverse Reaction (Mild, Verified 11/12/18 20:50) Myalgias Procedures: None - Type of Care/Length of Stay Estimated LOS: Convalescent Care Less Than 30 days Type of Care Needed: Skilled Rehab Potential: Good Prognosis: Good - Additional Orders/Day of Discharge Additional Orders: Daily weights, strict I & Os, chronic CHF patient, on Bumex, watch out for weight gain. Day of Discharge: 11/15/18 - Dietary and Speech Recommendations Dietitian Recommendations/Changes: Rec liberalize diet to CHO controlled, low sodium. Will offer Glucerna 120 mL 4x/day w/ medpass for additional calories/protein if consumed. Rec 1 packet Chase BID for wound healing. - Follow Up Care Primary Care Physician: Anabella Lomax MD [Primary Care Provider] - Please follow up with your Primary Care Physician in: within 2 weeks
[2018-11-15] MEDS: levETIRAcetam 1,000 MG Tablet 1000 MG PO (10:10)
[2018-11-15] MEDS: Magnesium Oxide 400 MG Tablet PO (10:10)
[2018-11-15] MEDS: Ranolazine 500 MG Tablet 1000 MG PO (10:10)
[2018-11-15] MEDS: Pramipexole Di-HCl 1 MG Tablet PO (10:11)
[2018-11-15] MEDS: Aspirin E.C. 81 MG Tablet PO (10:11)
[2018-11-15] MEDS: Lactulose 20 GM/30 ML UDC PO (10:11)
--- NOTE | 2018-11-15 10:16 | DS.PCM_ITS ---
Discharge Date and Diagnosis - Problem List Patient Problems: Active and Suspected Problems (Last Reviewed 11/04/18 @ 15:55 by Ana Cristina Cobos) Acute delirium (Acute) Hepatic encephalopathy (Acute) Acute on chronic kidney failure (Acute) Hyperammonemia (Acute) Date of Admission: 11/13/18 Date of Discharge: 11/15/18 - Primary Discharge Diagnosis Active and Suspected Problems (Last Reviewed 11/04/18 @ 15:55 by Ana Cristina Rosas t) Acute metabolic encephalopathy (Acute) Acute hepatric encephalopathy, POA Cirrhosis of liver, POA Dehydration (Acute) Hyperammonemia, POA Hyponatremia, hypovolemic - Secondary Discharge Diagnosis Chronic Problems (Last Reviewed 11/04/18 @ 15:55 by Ana Cristina Cobos) CKD (chronic kidney disease) stage 4, GFR 15-29 ml/min (Chronic) Pacemaker (Chronic) HLD (hyperlipidemia) (Chronic) Non-ST elevation (NSTEMI) myocardial infarction (Chronic) Angina pectoris (Chronic) CAD (coronary artery disease) (Chronic) Edema (Chronic) Dyspnea (Chronic) Renal disease (Chronic) Fatigue (Chronic) XOCHITL (obstructive sleep apnea) (Chronic) Diabetes mellitus type 2, noninsulin dependent (Chronic) Old myocardial infarction (Chronic) Long-term use of high-risk medication (Chronic) Chronic renal failure (Chronic) Cardiac murmur (Chronic) Hypokalemia (Chronic) Atherosclerotic heart disease of [place] coronary artery without angina pectoris (Chronic) CABG 1988; Reoperation CABG x3 SVG to LAD, SVG to Rt PDA, Radial artery to OM-2 10/08/02; VT ablation @[facility] 01/03/17 [facility] 03/10/2016 Ventricular tachycardia (paroxysmal) (Chronic) ICD (implantable cardioverter-defibrillator) in place (Chronic ~11/2001) Implant 12/10/2001 ICD replacement 06/10/2009, 06/05/2014, Systolic CHF, chronic (Chronic) Cardiomyopathy, ischemic (Chronic) CKD (chronic kidney disease), stage II (Chronic) Type II diabetes mellitus, uncontrolled (Chronic) Esophageal reflux (Chronic) HLD (hyperlipidemia) (Chronic) HTN (hypertension) (Chronic) Hypothyroidism (Chronic) Sleep apnea (Chronic) Hospital Course and Treatment Imaging Results: 11/15/18 09:57 US Liver [Liver] [US] Stat None Operations: None Procedures: None Summary of Care Provided: 78-year-old male with multiple comorbidities admitted with lethargy, poor p.o. intake and confusion. His management was as follows: 1. Acute metabolic encephalopathy/hepatic encephalopathy, POA, underlying cirrhosis of liver, POA, improved with lactulose and rifaximin. 2. Hyperammonemia secondary to hepatic encephalopathy, underlying cirrhosis of liver, improved with lactulose and rifaximin 3. Cirrhosis of liver, hepatitis profile is negative, needs to follow-up with button puncher in the outpatient 4. Hyponatremia, hypovolemic, improved with IV fluids. 4. CKD stage IV, stable, managed on fluids 5. Seizure disorder, history of SDH 6. CAD status post CABG, on aspirin and statin and beta-jonathan 7. Hypertension, controlled, on hydralazine, metoprolol 8. PAF/chronic systolic CHF/ischemic cardiomyopathy status post AICD, on aspirin, statin, Bumex, Imdur, metoprolol, hydralazine, no signs of acute exacerbation 9. Type 2 DM, blood sugars are stable, on Januvia, managed also on insulin sliding scale 11. XOCHITL on CPAP Patient Problems: Active and Suspected Problems (Last Reviewed 11/04/18 @ 15:55 by Ana Cristina Cobos) Acute delirium (Acute) Hepatic encephalopathy (Acute) Acute on chronic kidney failure (Acute) Hyperammonemia (Acute) Subjective: Patient was seen and examined on the day of admission. He felt well. No new complains. No acute events overnight previously. Objective: General: Alert, Oriented x3, Cooperative, No apparent distress HEENT: Atraumatic, PERRLA, EOMI, Normocephalic Oral: Moist Mucosa Neck: Supple, No JVD, Negative Carotid Bruits Lungs: Clear to auscultation, Normal air movement Cardiovascular: Regular rate, Regular Rhythm, Normal S1, Normal S2, Murmur - 2/6 holosystolic murmur Abdomen: Bowel Sounds Present, Soft, Non Tender, Non-Distended, No Hepato- splenomegaly Extremities: No edema Skin: No rashes, No breakdown Musculoskeletal: No Tenderness to Palpation of Joints or Extremities Lymphatic: No Cervical, Supraclavicular, or Inguinal Adenopathy Neurological: Cranial nerves II-XII grossly intact, Neuro grossly intact, mild flapping tremors of hands, more in the left hand Psych/Mental Status: Normal Affect, Appropriate - Physical Exam Vital Signs Temp Pulse Resp BP Pulse Ox 97.9 F 79 14 109/73 95 11/15/18 05:21 11/15/18 05:25 11/15/18 05:21 11/15/18 05:21 11/15/18 05:21 Oxygen Flow Rate (L/min) 2 Oxygen Delivery Method Room Air Weight: 86.3 kg Body Mass Index (BMI) 29.5 Finger Stick Blood Glucose 249 Intake and Output for Last 24 Hours 11/13/18 11/14/18 11/15/18 23:59 23:59 23:59 Intake Total 1744 / 1744 1580 / 1580 1130 / 1130 Output Total 150 / 150 550 / 550 900 / 900 Balance 1594 / 1594 1030 / 1030 230 / 230 Laboratory Tests Past 24 Hrs 11/15/18 11/15/18 11/15/18 06:02 06:02 09:04 WBC 7.6 RBC 3.39 L Hgb 11.2 L Hct 33.9 L MCV 100.0 H MCH 33.0 H MCHC 33.0 RDW 15.0 H RDW Differential 51.7 H Plt Count 135 L MPV 10.3 Immature Gran % (Auto) 1.500 H Neut % (Auto) 66.0 Lymph % (Auto) 19.3 Garden % (Auto) 10.3 H Eos % (Auto) 2.4 Baso % (Auto) 0.5 Absolute Neuts (auto) 5.0 Absolute Lymphs (auto) 1.46 Total Counted Not Reportable Sodium 132 L Potassium 4.3 Chloride 100 Carbon Dioxide 22.0 Anion Gap 10 BUN 37 H Creatinine 1.84 H Estim Creat Clear Calc 30.93 Est GFR (MDRD) Af Amer 46 L Est GFR (MDRD) Non-Af 38 L BUN/Creatinine Ratio 20.1 H Glucose 150 H Calcium 8.3 L Total Bilirubin 0.60 AST 19 ALT 21 Alkaline Phosphatase 163 H Ammonia 63.0 H Total Protein 6.5 Albumin 3.0 L Globulin 3.5 Albumin/Globulin Ratio 0.9 POC Glucose 11/15/18 11/14/18 11/14/18 06:53 22:03 16:32 POC Glucose 169 H 168 H 174 H 11/14/18 12:28 POC Glucose 159 H Discharge Diet: Low fat/ Low Cholesterol, 2000 mg Sodium Diet Discharge Activity: Return to Normal Activity Home Medications: Medications to take at Discharge Aspirin [Aspir 81] 81 mg PO DAILY 11/12/18 Atorvastatin Calcium [Lipitor] 10 mg PO DAILY 11/12/18 Bumetanide [Bumex] 1 mg PO BID 11/12/18 Isosorbide Mononitrate [Isosorbide Mononitrate ER] 60 mg PO DAILY 11/12/18 Levetiracetam [Keppra] 1,000 mg PO BID 11/12/18 Levothyroxine [Synthroid] 50 mcg PO DAILY 11/12/18 Magnesium Oxide [Mag-Ox 400] 400 mg PO DAILY 11/12/18 Metoprolol Succinate [Toprol Xl] 25 mg PO DAILY 11/12/18 Mexiletine [Mexitil] 150 mg PO Q8H 11/12/18 Nitroglycerin [Nitrostat] 0.4 mg SL PRN PRN 11/12/18 Potassium Chloride [Klor-Con] 20 meq PO DAILY 11/12/18 Ranolazine [Ranexa] 1,000 mg PO BID 11/12/18 Ropinirole HCl [Requip] 2 mg PO BID 11/12/18 Sitagliptin Phosphate [Januvia] 50 mg PO DAILY 11/12/18 hydrALAZINE [Apresoline] 25 mg PO TID 11/12/18 Glucerna Shake 120 ml PO 4X/DAY 11/15/18 Lactulose [Chronulac] 20 gm PO DAILY 11/15/18 Rifaximin [Xifaxan] 550 mg PO BID 11/15/18 Primary Care Physician: Anabella Lomax MD [Primary Care Provider] - Please follow up with your Primary Care Physician in: within 2 weeks Disposition[facility] Minutes spent on discharge:: 40 Patient Condition:: Stable Medical Necessity - Tobacco Use Smoking Status: Former smoker Tobacco Use: Non-smoker Meaningful Use Info Meaningful Use Diagnoses (Choose all that apply): None applicable Code Visit Inpatient E&M: 62973 Disch Hosp
[2018-11-15 10:18] VITALS: BP 122/73; PULSE 79; RESP 20; TEMP 36.7; O2SAT 96
--- NOTE | 2018-11-15 10:45 | CASEMGMT ---
BEKA GARCIA NOTE: Reviewed BORDEN form with pt and pt's . Questions answered. Form signed by pt. Copy made and placed on chart and pt given original. Pt and also provided with Are You a Hospital Inpatient or Outpatient Medicare information packet. Brittny RUSSELL RN CM
--- NOTE | 2018-11-15 11:22 | NURSING ---
THis nurse called and spoke to Carlie IRELAND in TCU to see when a good time to send pt over would be. States that they are full right now and not sure of the time that a bed will be available. She will call me with a time when she knows.
[2018-11-15 11:36] LABS: Bedside Glucose 214 mg/dL (70-110)
[2018-11-15] MEDS: rifAXIMin 550 MG Tablet PO (11:40)
[2018-11-15 14:28] VITALS: BP 139/102; PULSE 80
[2018-11-15 14:31] VITALS: BP 139/102; PULSE 80; RESP 16; TEMP 36.7; O2SAT 96
--- NOTE | 2018-11-15 15:26 | NURSING ---
Report given to Carlie in TCU at this time.
== END 2018-11-15 14:48 | disposition skilled nursing facility (03) ==
LOC: ED 21:16 → MS3 11-13 00:58
PROVIDERS: Internal Medicine; Admitting Provider Family Medicine; Emergency Provider Emergency Medicine; Family Provider Internal Medicine; PCP Internal Medicine; Visit Provider Internal Medicine
DX: G93.41 Metabolic encephalopathy (principal); K74.60 Unspecified cirrhosis of liver; E86.0 Dehydration; E78.5 Hyperlipidemia, unspecified; I25.10 Atherosclerotic heart disease of native coronary artery without angina pectoris; G47.33 Obstructive sleep apnea (adult) (pediatric); I13.0 Hypertensive heart and chronic kidney disease with heart failure and stage 1 through stage 4 chronic kidney disease, or unspecified chronic kidney disease; I50.22 Chronic systolic (congestive) heart failure; N18.4 Chronic kidney disease, stage 4 (severe); E11.22 Type 2 diabetes mellitus with diabetic chronic kidney disease; E11.65 Type 2 diabetes mellitus with hyperglycemia; K21.9 Gastro-esophageal reflux disease without esophagitis; E03.9 Hypothyroidism, unspecified; I25.2 Old myocardial infarction; F32.9 Major depressive disorder, single episode, unspecified; F41.9 Anxiety disorder, unspecified; I48.0 Paroxysmal atrial fibrillation; D63.8 Anemia in other chronic diseases classified elsewhere; N17.9 Acute kidney failure, unspecified; G40.909 Epilepsy, unspecified, not intractable, without status epilepticus; E72.20 Disorder of urea cycle metabolism, unspecified; E87.1 Hypo-osmolality and hyponatremia; R53.83 Other fatigue; Z95.1 Presence of aortocoronary bypass graft; Z79.899 Other long term (current) drug therapy; Z79.82 Long term (current) use of aspirin; Z95.810 Presence of automatic (implantable) cardiac defibrillator; Z87.891 Personal history of nicotine dependence; I25.5 Ischemic cardiomyopathy; I47.2 Ventricular tachycardia
CPT/HCPCS: 36415; 36600; 70450; 71045; 74176; 80048; 80053; 81001; 82140; 82803; 82962; 83605; 83690; 83735; 83880; 84443; 84484; 85025; 85610; 85730; 86704; 86705; 86706; 86708; 86709; 86803; 87340; 93005; 96361; 96372; 96374; 97162; 97165; 97530; 97535; 97802; 99218; 99285; J7030; J7040; A4216; G0378

== ENCOUNTER 2018-11-15 15:51 | Inpatient (IN) | payer MEDICARE, SELFPAY ==
[2018-11-13 01:39] VITALS: BMI 29.5
[2018-11-15 16:11] VITALS: BP 113/70; PULSE 80; RESP 18; TEMP 36.8; O2SAT 98; BMI 29.8
--- NOTE | 2018-11-15 16:18 | NURSING ---
Pt admitted to room 22 from [facility]3 via wheelchair. Oriented to room and call light system explained.
[2018-11-15] MEDS: Glucerna Shake 120 ML LIQUID PO (18:06)
[2018-11-15] MEDS: Bumetanide 0.5 MG Tablet 1 MG PO (18:10)
[2018-11-15] MEDS: levETIRAcetam 1,000 MG Tablet 1000 MG PO (18:10)
[2018-11-15] MEDS: Pramipexole Di-HCl 1 MG Tablet PO (18:10)
[2018-11-15] MEDS: rifAXIMin 550 MG Tablet PO (18:11)
[2018-11-15] MEDS: Ranolazine 500 MG Tablet 1000 MG PO (18:11)
--- NOTE | 2018-11-15 19:26 | PCM.HP.STD ---
Problem List (1) Acute delirium Status: Acute (2) Hepatic encephalopathy Status: Acute (3) Cirrhosis of liver Status: Chronic (4) Acute on chronic kidney failure Status: Acute (5) Hyperammonemia Status: Acute (6) Ventricular tachycardia Status: Chronic (7) Diabetes mellitus Status: Chronic (8) Seizure disorder Status: Chronic (9) Atrial fibrillation Status: Chronic (10) Dehydration Status: Acute (11) CAD (coronary artery disease) Status: Chronic Qualifiers: (12) Systolic CHF, chronic Status: Chronic (13) Subdural hematoma Status: Chronic (14) Esophageal reflux Status: Chronic Qualifiers: (15) HLD (hyperlipidemia) Status: Chronic Qualifiers: (16) HTN (hypertension) Status: Chronic Qualifiers: (17) Hypothyroidism Status: Chronic Qualifiers: (18) Sleep apnea Status: Chronic History of Present Illness Date of Admission: 11/15/18 Chief Complaint: Here for rehabilitation, strengthening, prior to discharge home with spouse. The patient is a 78 year old Male with below past medical history presented to [facility] Emergency Department 11/13/2018 with altered mental status. 11/12/2018 EKG ventricular paced rhythm. 11/12/2018 Chest X-ray negative. 11/12/2018 CT abdomen/pelvis new bilateral small pleural effusions, cirrhosis of liver. 11/12/2018 CT brain chronic involutional changes of brain. Discharged from [facility] 1 week prior. Could not stand to transfer, vomiting x 1. Last BM 2-3 days ago, appetite decreased. Lethargic. WBC 6.3, Hemoglobin 12.2, Cr 2.17, BUN 45. UA negative, BNP 542, Lactic acid 2.3. IV fluids given. 11/13/2018 Admit to Hospital. Gentle IV hydration, PT/OT. Gentle hydration for sodium 127. Gentle hydration for acute kidney injury. Lactulose added for elevated ammonia, hepatic encephalopathy. 11/14/2018 Encephalopathy secondary to dehydration, elevated ammonia level, stage 4 chronic kidney disease, improved with gentle IV hydration. 11/15/2018 Admit to TCU for rehabilitation, strengthening, prior to discharge home with spouse. I had discussion with resident, and spouse in their room. In 2017, resident fell, hit head, developed subdural hematoma requiring craniotomy, Keppra for seizure prophylaxis. Since then, is mental faculties have deteriorated. More recently, he developed weakness in his legs, thought due to dehydration, but recurrent over multiple hospital admissions. He now is found to have hepatic encephalopathy secondary to liver cirrhosis of unclear origin, he is not heavy alcohol user, hepatitis panel negative, no exposure to heavy metals. Being diabetic, I would think about fatty liver. Past Medical History Past Medical History (Chronic Problems): Chronic Problems (Last Reviewed 11/04/18 @ 15:55 by Ana Cristina Cobos) Cirrhosis of liver (Chronic) Ventricular tachycardia (Chronic) Diabetes mellitus (Chronic) Seizure disorder (Chronic) Atrial fibrillation (Chronic) CKD (chronic kidney disease) stage 4, GFR 15-29 ml/min (Chronic) Pacemaker (Chronic) HLD (hyperlipidemia) (Chronic) Non-ST elevation (NSTEMI) myocardial infarction (Chronic) Angina pectoris (Chronic) CAD (coronary artery disease) (Chronic) Edema (Chronic) Dyspnea (Chronic) Renal disease (Chronic) Fatigue (Chronic) XOCHITL (obstructive sleep apnea) (Chronic) Diabetes mellitus type 2, noninsulin dependent (Chronic) Old myocardial infarction (Chronic) Long-term use of high-risk medication (Chronic) Chronic renal failure (Chronic) Cardiac murmur (Chronic) Hypokalemia (Chronic) Atherosclerotic heart disease of [place] coronary artery without angina pectoris (Chronic) CABG 1988; Reoperation CABG x3 SVG to LAD, SVG to Rt PDA, Radial artery to OM-2 10/08/02; VT ablation @[facility] 01/03/17 [place] 03/10/2016 Ventricular tachycardia (paroxysmal) (Chronic) ICD (implantable cardioverter-defibrillator) in place (Chronic ~11/2001) Implant 12/10/2001 ICD replacement 06/10/2009, 06/05/2014, Systolic CHF, chronic (Chronic) Cardiomyopathy, ischemic (Chronic) Subdural hematoma (Chronic) CKD (chronic kidney disease), stage II (Chronic) Type II diabetes mellitus, uncontrolled (Chronic) Esophageal reflux (Chronic) HLD (hyperlipidemia) (Chronic) HTN (hypertension) (Chronic) Hypothyroidism (Chronic) Sleep apnea (Chronic) Medical History: Medical History (Last Reviewed 11/04/18 @ 15:55 by Ana Cristina Cobos) HLD (hyperlipidemia) (Chronic) E78.5 Non-ST elevation (NSTEMI) myocardial infarction (Chronic) I21.4 Angina pectoris (Chronic) I20.9 CAD (coronary artery disease) (Chronic) I25.10 Edema (Chronic) R60.9 Dyspnea (Chronic) R06.00 Renal disease (Chronic) N28.9 Fatigue (Chronic) R53.83 XOCHITL (obstructive sleep apnea) (Chronic) G47.33 Diabetes mellitus type 2, noninsulin dependent (Chronic) E11.9 Old myocardial infarction (Chronic) I25.2 Long-term use of high-risk medication (Chronic) Z79.899 Chronic renal failure (Chronic) N18.9 Cardiac murmur (Chronic) R01.1 Hypokalemia (Chronic) E87.6 Atherosclerotic heart disease of [place] coronary artery without angina pectoris (Chronic) I25.10 CABG 1988; Reoperation CABG x3 SVG to LAD, SVG to Rt PDA, Radial artery to OM-2 10/08/02; VT ablation @[facility] 01/03/17 [place] 03/10/2016 Ventricular tachycardia (paroxysmal) (Chronic) I47.2 ICD (implantable cardioverter-defibrillator) in place (Chronic) Onset Date: ~11/2001 Z95.810 Implant 12/10/2001 ICD replacement 06/10/2009, 06/05/2014, Systolic CHF, chronic (Chronic) I50.22 Cardiomyopathy, ischemic (Chronic) I25.5 Subdural hematoma (Resolved) I62.00 CAD (coronary artery disease) (Inactive) I25.10 CHF (congestive heart failure) (Inactive) I50.9 Visual hallucination (Inactive) R44.1 Allergies amiodarone Allergy (Verified 11/13/18 01:51) dizziness meperidine [From Demerol] Allergy (Verified 11/12/18 20:50) Low blood pressure spironolactone Allergy (Verified 11/12/18 20:50) Nausea simvastatin Adverse Reaction (Mild, Verified 11/12/18 20:50) Myalgias Home Medications: Ambulatory Orders Medication Instructions Recorded Aspirin [Aspir 81] 81 mg PO DAILY 11/12/18 Atorvastatin Calcium [Lipitor] 10 mg PO DAILY 11/12/18 Bumetanide [Bumex] 1 mg PO BID 11/12/18 Isosorbide Mononitrate [Isosorbide 60 mg PO DAILY 11/12/18 Mononitrate ER] Levetiracetam [Keppra] 1,000 mg PO BID 11/12/18 Levothyroxine [Synthroid] 50 mcg PO DAILY 11/12/18 Magnesium Oxide [Mag-Ox 400] 400 mg PO DAILY 11/12/18 Metoprolol Succinate [Toprol Xl] 25 mg PO DAILY 11/12/18 Mexiletine [Mexitil] 150 mg PO Q8H 11/12/18 Nitroglycerin [Nitrostat] 0.4 mg SL PRN PRN 11/12/18 Potassium Chloride [Klor-Con] 20 meq PO DAILY 11/12/18 Ranolazine [Ranexa] 1,000 mg PO BID 11/12/18 Ropinirole HCl [Requip] 2 mg PO BID 11/12/18 Sitagliptin Phosphate [Januvia] 50 mg PO DAILY 11/12/18 hydrALAZINE [Apresoline] 25 mg PO TID 11/12/18 Glucerna Shake 120 ml PO 4X/DAY 11/15/18 Lactulose [Chronulac] 20 gm PO DAILY 11/15/18 Rifaximin [Xifaxan] 550 mg PO BID 11/15/18 Surgical History: Surgical History (Last Reviewed 11/04/18 @ 15:55 by Ana Cristina Cobos) History of cardiac radiofrequency ablation (Resolved) Onset Date: ~10/04/18 Z98.890 AVN Ablation @ [facility] 10/04/18 Aortocoronary bypass status (Resolved) Z95.1 CABG 1988; Reoperation CABG x3 SVG to LAD, SVG to Rt PDA, Radial artery to OM-2 10/08/02; VT ablation @[facility] 01/03/17 H/O prior ablation treatment Onset Date: ~01/03/17 Z98.890 VT Ablation @ [facility] History of craniotomy Onset Date: ~06/2017 Z98.890 History of herniorrhaphy Z98.890, Z87.19 History of hip replacement Z96.649 RT History of knee surgery Z98.890 Rt S/P CABG (coronary artery bypass graft) (Inactive) Z95.1 Surgical History: cholecystectomy, coronary bypass surgery - x 3., herniorrhaphy, pacemaker implantation, total hip arthroplasty - Right., total knee arthroplasty - Right., - - ICD placement, RFA, Craniotomy s/p SDH w/ fall. Psychiatric History: Anxiety, Depression Lives: Spouse/ Significant Other Smoking Status: Former smoker Tobacco Use: Non-smoker Alcohol: None Drugs: None - *Family History Paternal Family History: Family History (Last Reviewed 11/04/18 @ 15:55 by Ana Cristina Cobos) Father CAD (coronary artery disease) Hypertension Myocardial infarction CHF (congestive heart failure) Mother CAD (coronary artery disease) Myocardial infarction Hypothyroid High cholesterol History Items: Diabetes, Heart Disease, Hypertension Maternal Family History: Family History (Last Reviewed 11/04/18 @ 15:55 by Ana Cristina Cobos) Father CAD (coronary artery disease) Hypertension Myocardial infarction CHF (congestive heart failure) Mother CAD (coronary artery disease) Myocardial infarction Hypothyroid High cholesterol History Items: High Cholesterol, Heart Disease, Hypertension Review of Systems Constitutional: Denies: Chills, Fever, Weight Change HEENT: Denies: Head Aches, Sinus Congestion, Sinus Drainage Cardiovascular: Denies: Chest Pain, Palpitations Respiratory: Denies: Cough, Shortness of breath at rest, Sputum production Gastrointestinal: Denies: Abdominal Pain, Nausea, Vomiting Genitourinary: Denies: Dysuria Musculoskeletal: Denies: Joint Pain, Joint Tenderness Skin: Denies: Rash, Wounds Neurological: Denies: Numbness, Tingling, Focal weakness Psychiatric: Denies: Anxiety, Depression, Homicidal Ideations, Suicidal Ideations Hematologic/ Lymphatic: Denies: Easy Bruising, Easy Bleeding VTE Information - Inpt Only VTE Present on Admission: No VTE Mechan Device Prophylaxis: Knee High GILBERTO Hose VTE Pharm Prophylaxis ordered?: Yes Patient Problems: Active and Suspected Problems (Last Reviewed 11/04/18 @ 15:55 by Ana Cristina Cobos) Acute delirium (Acute) Hepatic encephalopathy (Acute) Acute on chronic kidney failure (Acute) Hyperammonemia (Acute) - Physical Exam General: Alert, Oriented x3, Cooperative HEENT: Atraumatic, PERRLA, EOMI, Normocephalic Neck: Supple, No JVD, Negative Carotid Bruits Lungs: Clear to auscultation, Normal air movement Cardiovascular: Regular rate, No murmurs Abdomen: Bowel Sounds Present, Soft, Non Tender Extremities: No edema, Capillary Refill Less than 3 Seconds Skin: No rashes, No breakdown Musculoskeletal: No Tenderness to Palpation of Joints or Extremities Neurological: Cranial nerves II-XII grossly intact Psych/Mental Status: Normal Affect, Appropriate Vital Signs Temp Pulse Resp BP Pulse Ox 98.2 F 80 18 113/70 98 11/15/18 16:11 11/15/18 16:11 11/15/18 16:11 11/15/18 16:11 11/15/18 16:11 Oxygen Delivery Method Room Air Weight: 86.5 kg Body Mass Index (BMI) 29.8 Finger Stick Blood Glucose 249 Intake and Output for Last 24 Hours 11/13/18 11/14/18 11/15/18 23:59 23:59 23:59 Intake Total 390 / 390 Output Total 400 / 400 Balance - Assessment/Plan All Active Problems (Last Reviewed 11/04/18 @ 15:55 by Ana Cristina Cobos) Acute encephalopathy (Acute) Dehydration (Acute) Acute delirium (Acute) Hepatic encephalopathy (Acute) Acute on chronic kidney failure (Acute) Hyperammonemia (Acute) History of cardiac radiofrequency ablation (Resolved ~10/04/18) Epiploic appendagitis (Acute) Generalized weakness (Acute) Episode of syncope (Acute) Bronchitis (Acute) Aortocoronary bypass status (Resolved) 78 year old male with below past medical history hospitalized for acute delirium secondary to hepatic encephalopathy, complicated by weakness, dehydration, acute on chronic kidney failure, admitted to TCU with debility, here for rehabilitation, strengthening, prior to discharge home with spouse. Debility - PT/OT. Pain - Tylenol 650MG Q6H PRN mild pain. Bowel - Miralax 17GM daily, Senna/colace 1 tablet BID, Dulcolax 10MG po daily PRN. Pneumonia vaccination - Administer Prevnar 13 and/or Pneumovax 23 as necessary. DVT prophylaxis - Lovenox 30MG SC daily. Coronary Artery Disease - Metoprolol succinate 25MG daily, Ranexa 1000MG BID, Isosorbide MN 60MG daily, Aspirin 81MG daily, NTG 0.4MG Q5M PRN. Chronic systolic congestive heart failure - Metoprolol succinate 25MG daily, Isosorbide MN 60MG daily, Hydralazine 25MG TID, Bumex 1MG BID. I offered Entresto as therapeutic option to lower risk of , hospitalization from heart failure, resident and spouse will let me know. Hepatic encephalopathy - Lactulose 20GM daily, Xifaxan 550MG BID, check ammonia level tomorrow. Cirrhosis of liver - order liver ultrasound. Seizure disorder - Keppra 1000MG BID. Hypothyroidism - Levothyroxine 50MCG daily. Diabetes Mellitus II - Tradjenta 5MG daily. Hypomagnesemia - Mag Oxide 400MG daily. Atrial fibrillation - status post RFA, Mexiletine 150MG Q8H, Metoprolol succinate 25MG daily. Nutrition - Glucerna Shake 120ML 4x/day, Chase 1 packet BID. Hypokalemia - K-Dur 20MEQ daily. Restless Leg syndrome - Mirapex 1MG BID.
--- NOTE | 2018-11-15 19:30 | HP.PCM_ITS ---
Problem List (1) Acute delirium Status: Acute (2) Hepatic encephalopathy Status: Acute (3) Cirrhosis of liver Status: Chronic (4) Acute on chronic kidney failure Status: Acute (5) Hyperammonemia Status: Acute (6) Ventricular tachycardia Status: Chronic (7) Diabetes mellitus Status: Chronic (8) Seizure disorder Status: Chronic (9) Atrial fibrillation Status: Chronic (10) Dehydration Status: Acute (11) CAD (coronary artery disease) Status: Chronic Qualifiers: (12) Systolic CHF, chronic Status: Chronic (13) Subdural hematoma Status: Chronic (14) Esophageal reflux Status: Chronic Qualifiers: (15) HLD (hyperlipidemia) Status: Chronic Qualifiers: (16) HTN (hypertension) Status: Chronic Qualifiers: (17) Hypothyroidism Status: Chronic Qualifiers: (18) Sleep apnea Status: Chronic History of Present Illness Date of Admission: 11/15/18 Chief Complaint: Here for rehabilitation, strengthening, prior to discharge home with spouse. The patient is a 78 year old Male with below past medical history presented to [facility] Emergency Department 11/13/2018 with altered mental status. 11/12/2018 EKG ventricular paced rhythm. 11/12/2018 Chest X-ray negative. 11/12/2018 CT abdomen/pelvis new bilateral small pleural effusions, cirrhosis of liver. 11/12/2018 CT brain chronic involutional changes of brain. Discharged from [facility] 1 week prior. Could not stand to transfer, vomiting x 1. Last BM 2-3 days ago, appetite decreased. Lethargic. WBC 6.3, Hemoglobin 12.2, Cr 2.17, BUN 45. UA negative, BNP 542, Lactic acid 2.3. IV fluids given. 11/13/2018 Admit to Hospital. Gentle IV hydration, PT/OT. Gentle hydration for sodium 127. Gentle hydration for acute kidney injury. Lactulose added for elevated ammonia, hepatic encephalopathy. 11/14/2018 Encephalopathy secondary to dehydration, elevated ammonia level, stage 4 chronic kidney disease, improved with gentle IV hydration. 11/15/2018 Admit to TCU for rehabilitation, strengthening, prior to discharge home with spouse. I had discussion with resident, and spouse in their room. In 2017, resident fell, hit head, developed subdural hematoma requiring craniotomy, Keppra for seizure prophylaxis. Since then, is mental faculties have deteriorated. More recently, he developed weakness in his legs, thought due to dehydration, but recurrent over multiple hospital admissions. He now is found to have hepatic encephalopathy secondary to liver cirrhosis of unclear origin, he is not heavy alcohol user, hepatitis panel negative, no exposure to heavy metals. Being diabetic, I would think about fatty liver. Past Medical History Past Medical History (Chronic Problems): Chronic Problems (Last Reviewed 11/04/18 @ 15:55 by Ana Cristina Cobos) Cirrhosis of liver (Chronic) Ventricular tachycardia (Chronic) Diabetes mellitus (Chronic) Seizure disorder (Chronic) Atrial fibrillation (Chronic) CKD (chronic kidney disease) stage 4, GFR 15-29 ml/min (Chronic) Pacemaker (Chronic) HLD (hyperlipidemia) (Chronic) Non-ST elevation (NSTEMI) myocardial infarction (Chronic) Angina pectoris (Chronic) CAD (coronary artery disease) (Chronic) Edema (Chronic) Dyspnea (Chronic) Renal disease (Chronic) Fatigue (Chronic) XOCHITL (obstructive sleep apnea) (Chronic) Diabetes mellitus type 2, noninsulin dependent (Chronic) Old myocardial infarction (Chronic) Long-term use of high-risk medication (Chronic) Chronic renal failure (Chronic) Cardiac murmur (Chronic) Hypokalemia (Chronic) Atherosclerotic heart disease of [place] coronary artery without angina pectoris (Chronic) CABG 1988; Reoperation CABG x3 SVG to LAD, SVG to Rt PDA, Radial artery to OM-2 10/08/02; VT ablation @[facility] 01/03/17 [facility] 03/10/2016 Ventricular tachycardia (paroxysmal) (Chronic) ICD (implantable cardioverter-defibrillator) in place (Chronic ~11/2001) Implant 12/10/2001 ICD replacement 06/10/2009, 06/05/2014, Systolic CHF, chronic (Chronic) Cardiomyopathy, ischemic (Chronic) Subdural hematoma (Chronic) CKD (chronic kidney disease), stage II (Chronic) Type II diabetes mellitus, uncontrolled (Chronic) Esophageal reflux (Chronic) HLD (hyperlipidemia) (Chronic) HTN (hypertension) (Chronic) Hypothyroidism (Chronic) Sleep apnea (Chronic) Medical History: Medical History (Last Reviewed 11/04/18 @ 15:55 by Ana Cristina Cobos) HLD (hyperlipidemia) (Chronic) E78.5 Non-ST elevation (NSTEMI) myocardial infarction (Chronic) I21.4 Angina pectoris (Chronic) I20.9 CAD (coronary artery disease) (Chronic) I25.10 Edema (Chronic) R60.9 Dyspnea (Chronic) R06.00 Renal disease (Chronic) N28.9 Fatigue (Chronic) R53.83 XOCHITL (obstructive sleep apnea) (Chronic) G47.33 Diabetes mellitus type 2, noninsulin dependent (Chronic) E11.9 Old myocardial infarction (Chronic) I25.2 Long-term use of high-risk medication (Chronic) Z79.899 Chronic renal failure (Chronic) N18.9 Cardiac murmur (Chronic) R01.1 Hypokalemia (Chronic) E87.6 Atherosclerotic heart disease of [place] coronary artery without angina pectoris (Chronic) I25.10 CABG 1988; Reoperation CABG x3 SVG to LAD, SVG to Rt PDA, Radial artery to OM-2 10/08/02; VT ablation @[facility] 01/03/17 [facility] 03/10/2016 Ventricular tachycardia (paroxysmal) (Chronic) I47.2 ICD (implantable cardioverter-defibrillator) in place (Chronic) Onset Date: ~11/2001 Z95.810 Implant 12/10/2001 ICD replacement 06/10/2009, 06/05/2014, Systolic CHF, chronic (Chronic) I50.22 Cardiomyopathy, ischemic (Chronic) I25.5 Subdural hematoma (Resolved) I62.00 CAD (coronary artery disease) (Inactive) I25.10 CHF (congestive heart failure) (Inactive) I50.9 Visual hallucination (Inactive) R44.1 Allergies amiodarone Allergy (Verified 11/13/18 01:51) dizziness meperidine [From Demerol] Allergy (Verified 11/12/18 20:50) Low blood pressure spironolactone Allergy (Verified 11/12/18 20:50) Nausea simvastatin Adverse Reaction (Mild, Verified 11/12/18 20:50) Myalgias Home Medications: Ambulatory Orders Medication Instructions Recorded Aspirin [Aspir 81] 81 mg PO DAILY 11/12/18 Atorvastatin Calcium [Lipitor] 10 mg PO DAILY 11/12/18 Bumetanide [Bumex] 1 mg PO BID 11/12/18 Isosorbide Mononitrate [Isosorbide 60 mg PO DAILY 11/12/18 Mononitrate ER] Levetiracetam [Keppra] 1,000 mg PO BID 11/12/18 Levothyroxine [Synthroid] 50 mcg PO DAILY 11/12/18 Magnesium Oxide [Mag-Ox 400] 400 mg PO DAILY 11/12/18 Metoprolol Succinate [Toprol Xl] 25 mg PO DAILY 11/12/18 Mexiletine [Mexitil] 150 mg PO Q8H 11/12/18 Nitroglycerin [Nitrostat] 0.4 mg SL PRN PRN 11/12/18 Potassium Chloride [Klor-Con] 20 meq PO DAILY 11/12/18 Ranolazine [Ranexa] 1,000 mg PO BID 11/12/18 Ropinirole HCl [Requip] 2 mg PO BID 11/12/18 Sitagliptin Phosphate [Januvia] 50 mg PO DAILY 11/12/18 hydrALAZINE [Apresoline] 25 mg PO TID 11/12/18 Glucerna Shake 120 ml PO 4X/DAY 11/15/18 Lactulose [Chronulac] 20 gm PO DAILY 11/15/18 Rifaximin [Xifaxan] 550 mg PO BID 11/15/18 Surgical History: Surgical History (Last Reviewed 11/04/18 @ 15:55 by Ana Cristina Cobos) History of cardiac radiofrequency ablation (Resolved) Onset Date: ~10/04/18 Z98.890 AVN Ablation @ [facility] 10/04/18 Aortocoronary bypass status (Resolved) Z95.1 CABG 1988; Reoperation CABG x3 SVG to LAD, SVG to Rt PDA, Radial artery to OM-2 10/08/02; VT ablation @[facility] 01/03/17 H/O prior ablation treatment Onset Date: ~01/03/17 Z98.890 VT Ablation @ [facility] History of craniotomy Onset Date: ~06/2017 Z98.890 History of herniorrhaphy Z98.890, Z87.19 History of hip replacement Z96.649 RT History of knee surgery Z98.890 Rt S/P CABG (coronary artery bypass graft) (Inactive) Z95.1 Surgical History: cholecystectomy, coronary bypass surgery - x 3., herniorrhaphy, pacemaker implantation, total hip arthroplasty - Right., total knee arthroplasty - Right., - - ICD placement, RFA, Craniotomy s/p SDH w/ fall. Psychiatric History: Anxiety, Depression Lives: Spouse/ Significant Other Smoking Status: Former smoker Tobacco Use: Non-smoker Alcohol: None Drugs: None - *Family History Paternal Family History: Family History (Last Reviewed 11/04/18 @ 15:55 by Ana Cristina Cobos) Father CAD (coronary artery disease) Hypertension Myocardial infarction CHF (congestive heart failure) Mother CAD (coronary artery disease) Myocardial infarction Hypothyroid High cholesterol History Items: Diabetes, Heart Disease, Hypertension Maternal Family History: Family History (Last Reviewed 11/04/18 @ 15:55 by Ana Cristina Cobos) Father CAD (coronary artery disease) Hypertension Myocardial infarction CHF (congestive heart failure) Mother CAD (coronary artery disease) Myocardial infarction Hypothyroid High cholesterol History Items: High Cholesterol, Heart Disease, Hypertension Review of Systems Constitutional: Denies: Chills, Fever, Weight Change HEENT: Denies: Head Aches, Sinus Congestion, Sinus Drainage Cardiovascular: Denies: Chest Pain, Palpitations Respiratory: Denies: Cough, Shortness of breath at rest, Sputum production Gastrointestinal: Denies: Abdominal Pain, Nausea, Vomiting Genitourinary: Denies: Dysuria Musculoskeletal: Denies: Joint Pain, Joint Tenderness Skin: Denies: Rash, Wounds Neurological: Denies: Numbness, Tingling, Focal weakness Psychiatric: Denies: Anxiety, Depression, Homicidal Ideations, Suicidal Ideations Hematologic/ Lymphatic: Denies: Easy Bruising, Easy Bleeding VTE Information - Inpt Only VTE Present on Admission: No VTE Mechan Device Prophylaxis: Knee High GILBERTO Hose VTE Pharm Prophylaxis ordered?: Yes Patient Problems: Active and Suspected Problems (Last Reviewed 11/04/18 @ 15:55 by Ana Cristina Cobos) Acute delirium (Acute) Hepatic encephalopathy (Acute) Acute on chronic kidney failure (Acute) Hyperammonemia (Acute) - Physical Exam General: Alert, Oriented x3, Cooperative HEENT: Atraumatic, PERRLA, EOMI, Normocephalic Neck: Supple, No JVD, Negative Carotid Bruits Lungs: Clear to auscultation, Normal air movement Cardiovascular: Regular rate, No murmurs Abdomen: Bowel Sounds Present, Soft, Non Tender Extremities: No edema, Capillary Refill Less than 3 Seconds Skin: No rashes, No breakdown Musculoskeletal: No Tenderness to Palpation of Joints or Extremities Neurological: Cranial nerves II-XII grossly intact Psych/Mental Status: Normal Affect, Appropriate Vital Signs Temp Pulse Resp BP Pulse Ox 98.2 F 80 18 113/70 98 11/15/18 16:11 11/15/18 16:11 11/15/18 16:11 11/15/18 16:11 11/15/18 16:11 Oxygen Delivery Method Room Air Weight: 86.5 kg Body Mass Index (BMI) 29.8 Finger Stick Blood Glucose 249 Intake and Output for Last 24 Hours 11/13/18 11/14/18 11/15/18 23:59 23:59 23:59 Intake Total 390 / 390 Output Total 400 / 400 Balance - Assessment/Plan All Active Problems (Last Reviewed 11/04/18 @ 15:55 by Ana Cristina Cobos) Acute encephalopathy (Acute) Dehydration (Acute) Acute delirium (Acute) Hepatic encephalopathy (Acute) Acute on chronic kidney failure (Acute) Hyperammonemia (Acute) History of cardiac radiofrequency ablation (Resolved ~10/04/18) Epiploic appendagitis (Acute) Generalized weakness (Acute) Episode of syncope (Acute) Bronchitis (Acute) Aortocoronary bypass status (Resolved) 78 year old male with below past medical history hospitalized for acute delirium secondary to hepatic encephalopathy, complicated by weakness, dehydration, acute on chronic kidney failure, admitted to TCU with debility, here for rehabilitation, strengthening, prior to discharge home with spouse. * Debility - PT/OT. * Pain - Tylenol 650MG Q6H PRN mild pain. * Bowel - Miralax 17GM daily, Senna/colace 1 tablet BID, Dulcolax 10MG po daily PRN. * Pneumonia vaccination - Administer Prevnar 13 and/or Pneumovax 23 as necessary. * DVT prophylaxis - Lovenox 30MG SC daily. * Coronary Artery Disease - Metoprolol succinate 25MG daily, Ranexa 1000MG BID, Isosorbide MN 60MG daily, Aspirin 81MG daily, NTG 0.4MG Q5M PRN. * Chronic systolic congestive heart failure - Metoprolol succinate 25MG daily, Isosorbide MN 60MG daily, Hydralazine 25MG TID, Bumex 1MG BID. I offered Entresto as therapeutic option to lower risk of , hospitalization from heart failure, resident and spouse will let me know. * Hepatic encephalopathy - Lactulose 20GM daily, Xifaxan 550MG BID, check ammonia level tomorrow. * Cirrhosis of liver - order liver ultrasound. * Seizure disorder - Keppra 1000MG BID. * Hypothyroidism - Levothyroxine 50MCG daily. * Diabetes Mellitus II - Tradjenta 5MG daily. * Hypomagnesemia - Mag Oxide 400MG daily. * Atrial fibrillation - status post RFA, Mexiletine 150MG Q8H, Metoprolol succinate 25MG daily. * Nutrition - Glucerna Shake 120ML 4x/day, Chase 1 packet BID. * Hypokalemia - K-Dur 20MEQ daily. * Restless Leg syndrome - Mirapex 1MG BID.
[2018-11-15 21:37] VITALS: BP 119/75; PULSE 80
[2018-11-15] MEDS: Mexiletine 150 MG Capsule PO (21:37)
[2018-11-15] MEDS: Atorvastatin Calcium 10 MG Tablet PO (21:37)
[2018-11-15] MEDS: hydrALAZINE 25 MG Tablet PO (21:37)
[2018-11-15 21:41] LABS: Bedside Glucose 200 mg/dL (70-110)
[2018-11-16 06:31] LABS: Bedside Glucose 172 mg/dL (70-110)
[2018-11-16 07:04] LABS: Absolute Lymphocyte Count 1.13 X10^3/ul (0.83-4.51); Absolute Neutrophil Count 6.3 X10^3/uL (2.0-7.7); Basophil# 0.02 X10^3/uL; Basophil% 0.2 % (0-1); Eosinophil# 0.12 X10^3/uL; Eosinophils% 1.4 % (0-5); Hematocrit 36.5 % (40-54); Hemoglobin 11.9 g/dl (13.0-16.5); Lymphocyte # 1.13 X10^3/ul (4.0); Lymphocyte % 13.3 % (19-41); Mean Corp Hgb Conc 32.6 g/gl (32-36); Mean Corpuscular Hgb 32.8 pg (27.0-32.0); Mean Corpuscular Volume 100.6 fL (80-94); Mean Platelet Vol. 10.1 fl (6.2-12.0); Monocyte% 8.2 % (0-10); Neutrophil # 6.34 X10^3/uL (2.7-7.7); Neutrophil % 74.7 % (47-70); POSITIVE COUNT YES; POSITIVE DIFFERENTIAL NO; POSITIVE MORPHOLOGY YES; Platelet Count 151 K/mm3 (150-450); RBC Distribution Width CV 15.5 % (11.6-14.6); RBC Distribution Width SD 53.6 fl (35.1-43.9); Red Blood Count 3.63 M/mm3 (4.6-6.2); White Blood Count 8.5 K/mm3 (4.4-11.0)
[2018-11-16 07:07] LABS: Anion Gap 10 (5-15); BUN 37 mg/dL (7-18); BUN/Creat Ratio 18.1 RATIO (10-20); Calcium,Total 8.4 mg/dL (8.5-10.1); Chloride 98 mmol/L (98-107); Creatinine, Serum 2.04 mg/dL (0.70-1.30); EST Glomerular Filtration Rate 34 mL/min (>60); Est Glom Filt Rate - Afr Amer 41 mL/min (>60); Glucose 173 mg/dL (74-106); Potassium 4.4 mmol/L (3.5-5.1); Sodium Level 133 mmol/L (136-145)
--- NOTE | 2018-11-16 09:00 | US_ITS ---
STUDY: ABDOMINAL ULTRASOUND - RIGHT UPPER QUADRANT REASON FOR VISIT: Male, 78 years old. Abnormal labs TECHNIQUE: Ultrasound evaluation of the right upper quadrant was performed with real-time and static cortés-scale imaging. TECHNICAL QUALITY: Limited. Examination limited by bowel gas. COMPARISON: None. FINDINGS: Liver: The liver measures 14 cm. There is a heterogeneous echogenicity of the liver. The bile ducts are within normal limits. There is hepatic color flow. The direction of portal flow is hepatopetal. There is no demonstrated mass lesion. Gallbladder: The patient is status post cholecystectomy. Common Bile Duct (C.B.D.): The common bile duct measures 3.4 mm. Pancreas: There is diffuse atrophy of the pancreas. There is increased echogenicity of the pancreas. There is no demonstrated pancreatic mass or cyst. Right Kidney: Normal size of the right kidney. The right kidney measures 9.3 cm. Normal renal cortex. The right cortex measures 2.0 cm. There is no demonstrated renal mass or cyst. There is no right hydronephrosis. US/Liver IMPRESSION: Heterogeneous liver echotexture with lobulation. This could represent cirrhosis. Status post cholecystectomy. Mildly increased echogenicity of the pancreas, nonspecific. Electronically Signed: Gene Martell DO at 13:49 EST Tel , Service support ,
--- NOTE | 2018-11-16 11:05 | NURSING ---
US here to do liver ultrasound this AM, pt has been NPO since MN
[2018-11-16 11:06] LABS: Bedside Glucose 136 mg/dL (70-110)
[2018-11-16 11:37] VITALS: BP 108/66; PULSE 80
[2018-11-16 11:42] VITALS: PULSE 80
[2018-11-16] MEDS: LINAGLIPTIN 5 MG TABLET PO (11:42)
[2018-11-16] MEDS: Magnesium Oxide 400 MG Tablet PO (11:42)
[2018-11-16] MEDS: Aspirin E.C. 81 MG Tablet PO (11:42)
[2018-11-16] MEDS: Lactulose 20 GM/30 ML UDC PO (11:42)
[2018-11-16] MEDS: Ranolazine 500 MG Tablet 1000 MG PO ×2 (11:42→16:45)
[2018-11-16] MEDS: Metoprolol(XL)Succ 25 MG Tablet PO (11:42)
[2018-11-16] MEDS: Polyethylene Glycol 3350 17 GM PACKET PO (11:42)
[2018-11-16] MEDS: Levothyroxine 50 MCG Tablet PO (11:42)
[2018-11-16] MEDS: rifAXIMin 550 MG Tablet PO ×2 (11:42→16:46)
[2018-11-16] MEDS: Senna/Docusate Sodium 1 Tablet PO (11:42)
[2018-11-16 11:43] VITALS: PULSE 80
[2018-11-16] MEDS: Bumetanide 0.5 MG Tablet 1 MG PO ×2 (11:43→16:44)
[2018-11-16] MEDS: Isosorbide Mononitrate 60 MG Tablet PO (11:43)
[2018-11-16] MEDS: hydrALAZINE 25 MG Tablet PO ×3 (11:43→21:33)
[2018-11-16] MEDS: Pramipexole Di-HCl 1 MG Tablet PO ×2 (11:43→16:46)
[2018-11-16] MEDS: Mexiletine 150 MG Capsule PO ×3 (11:43→21:33)
[2018-11-16] MEDS: levETIRAcetam 1,000 MG Tablet 1000 MG PO ×2 (11:43→16:45)
[2018-11-16] MEDS: Enoxaparin 30 MG/0.3 ML Syringe SC (11:43)
[2018-11-16] MEDS: Tuberculin,Purif.prot.deriv. 50 TU/ML Vial 5 ML ID (11:52)
--- NOTE | 2018-11-16 15:37 | NURSING ---
Dr Ray updated on liver US results. new order AFP in AM.
[2018-11-16 16:00] VITALS: BP 101/65; PULSE 82; RESP 16; TEMP 36.3; O2SAT 98
[2018-11-16 16:43] VITALS: BP 101/65; PULSE 82
[2018-11-16] MEDS: Glucerna Shake 120 ML LIQUID PO (16:50)
[2018-11-16 17:01] LABS: Bedside Glucose 147 mg/dL (70-110)
[2018-11-16 20:56] LABS: Bedside Glucose 209 mg/dL (70-110)
[2018-11-16 21:33] VITALS: BP 129/74; PULSE 89
[2018-11-16] MEDS: Atorvastatin Calcium 10 MG Tablet PO (21:33)
[2018-11-17 06:17] VITALS: BP 115/76; PULSE 80
[2018-11-17] MEDS: Pramipexole Di-HCl 1 MG Tablet PO ×2 (06:17→16:59)
[2018-11-17] MEDS: Lactulose 20 GM/30 ML UDC PO (06:17)
[2018-11-17] MEDS: hydrALAZINE 25 MG Tablet PO ×3 (06:17→21:12)
[2018-11-17] MEDS: Bumetanide 0.5 MG Tablet 1 MG PO ×2 (06:17→16:59)
[2018-11-17] MEDS: Polyethylene Glycol 3350 17 GM PACKET PO (06:17)
[2018-11-17] MEDS: rifAXIMin 550 MG Tablet PO ×2 (06:17→16:59)
[2018-11-17] MEDS: Levothyroxine 50 MCG Tablet PO (06:17)
[2018-11-17] MEDS: Mexiletine 150 MG Capsule PO ×3 (06:17→21:12)
[2018-11-17] MEDS: Glucerna Shake 120 ML LIQUID PO ×3 (06:17→16:57)
[2018-11-17] MEDS: Isosorbide Mononitrate 60 MG Tablet PO (06:17)
[2018-11-17] MEDS: Metoprolol(XL)Succ 25 MG Tablet PO (06:17)
[2018-11-17] MEDS: Enoxaparin 30 MG/0.3 ML Syringe SC (06:17)
[2018-11-17] MEDS: LINAGLIPTIN 5 MG TABLET PO (06:17)
[2018-11-17] MEDS: Ranolazine 500 MG Tablet 1000 MG PO ×2 (06:18→16:59)
[2018-11-17] MEDS: levETIRAcetam 1,000 MG Tablet 1000 MG PO ×2 (06:19→16:59)
[2018-11-17 06:45] LABS: Bedside Glucose 128 mg/dL (70-110)
[2018-11-17] MEDS: Aspirin E.C. 81 MG Tablet PO (08:02)
[2018-11-17] MEDS: Magnesium Oxide 400 MG Tablet PO (08:02)
[2018-11-17 11:20] LABS: Bedside Glucose 206 mg/dL (70-110)
[2018-11-17 15:18] VITALS: BP 111/66; PULSE 82
[2018-11-17 15:20] VITALS: BP 111/68; PULSE 68; RESP 18; TEMP 36.7; O2SAT 97
[2018-11-17 16:50] LABS: Bedside Glucose 183 mg/dL (70-110)
--- NOTE | 2018-11-17 17:33 | NURSING ---
pt using call light appropriately, alarm removed. pt reminded to continue to use call light for assist. pt verbalized understanding
[2018-11-17 21:12] VITALS: BP 112/72; PULSE 80
[2018-11-17] MEDS: Atorvastatin Calcium 10 MG Tablet PO (21:12)
[2018-11-17 21:30] LABS: Bedside Glucose 272 mg/dL (70-110)
[2018-11-18 05:41] VITALS: BP 118/71; PULSE 82
[2018-11-18] MEDS: Bumetanide 0.5 MG Tablet 1 MG PO ×2 (05:41→17:56)
[2018-11-18] MEDS: levETIRAcetam 1,000 MG Tablet 1000 MG PO ×2 (05:41→17:56)
[2018-11-18] MEDS: LINAGLIPTIN 5 MG TABLET PO (05:41)
[2018-11-18] MEDS: hydrALAZINE 25 MG Tablet PO ×2 (05:41→15:32)
[2018-11-18] MEDS: Metoprolol(XL)Succ 25 MG Tablet PO (05:41)
[2018-11-18] MEDS: Pramipexole Di-HCl 1 MG Tablet PO ×2 (05:41→17:57)
[2018-11-18] MEDS: Ranolazine 500 MG Tablet 1000 MG PO ×2 (05:41→17:56)
[2018-11-18] MEDS: Isosorbide Mononitrate 60 MG Tablet PO (05:41)
[2018-11-18] MEDS: Levothyroxine 50 MCG Tablet PO (05:41)
[2018-11-18] MEDS: Enoxaparin 30 MG/0.3 ML Syringe SC (05:41)
[2018-11-18] MEDS: Mexiletine 150 MG Capsule PO ×3 (05:42→21:34)
[2018-11-18] MEDS: rifAXIMin 550 MG Tablet PO ×2 (05:42→17:57)
[2018-11-18] MEDS: Lactulose 20 GM/30 ML UDC PO (05:51)
[2018-11-18] MEDS: Aspirin E.C. 81 MG Tablet PO (08:15)
[2018-11-18] MEDS: Magnesium Oxide 400 MG Tablet PO (08:15)
[2018-11-18 09:01] LABS: Bedside Glucose 143 mg/dL (70-110)
[2018-11-18 11:15] LABS: Bedside Glucose 234 mg/dL (70-110)
[2018-11-18] MEDS: Glucerna Shake 120 ML LIQUID PO ×2 (11:50→17:55)
--- NOTE | 2018-11-18 12:05 | PCM.PN.RX ---
<Rajat Doe D - Last Filed: 11/18/18 12:28> Progress Note - Pharmacy Subjective: TCU Admission Objective: Allergies amiodarone Allergy (Verified 11/13/18 01:51) dizziness meperidine [From Demerol] Allergy (Verified 11/12/18 20:50) Low blood pressure spironolactone Allergy (Verified 11/12/18 20:50) Nausea simvastatin Adverse Reaction (Mild, Verified 11/12/18 20:50) Myalgias Current Medications Generic Name Dose Route Start Last Admin Trade Name Freq PRN Reason Stop Dose Admin Acetaminophen 650 mg 11/15/18 20:07 Tylenol PO Q6H PRN PRN MILD PAIN (1-310) Aspirin 81 mg 11/16/18 08:00 11/18/18 08:15 Ecotrin PO 81 mg DAILY@0800 SUNG Administration Atorvastatin Calcium 10 mg 11/15/18 22:00 11/17/18 21:12 Lipitor PO 10 mg DAILY@2200 SUNG Administration Bisacodyl 10 mg 11/15/18 20:08 Dulcolax PO DAILY PRN Constipation Bumetanide 1 mg 11/15/18 18:00 11/18/18 05:41 Bumex PO 1 mg BID SUNG Administration Enoxaparin Sodium 30 mg 11/16/18 06:00 11/18/18 05:41 Lovenox SC 30 mg DAILY@0600 SUNG Administration Hydralazine HCl 25 mg 11/15/18 22:00 11/18/18 05:41 Apresoline PO 25 mg TID SUNG Administration Isosorbide Mononitrate 60 mg 11/16/18 06:00 11/18/18 05:41 Imdur PO 60 mg DAILY SUNG Administration Lactulose 20 gm 11/16/18 06:00 11/18/18 05:51 Chronulac, Cephulac PO 20 gm DAILY SUNG Administration Levetiracetam 1,000 mg 11/15/18 18:00 11/18/18 05:41 Keppra Tablet PO 1,000 mg BID SUNG Administration Levothyroxine Sodium 50 mcg 11/16/18 06:00 11/18/18 05:41 Synthroid PO 50 mcg DAILY SUNG Administration Linagliptin 5 mg 11/16/18 06:00 11/18/18 05:41 Tradjenta PO 5 mg DAILY SUNG Administration Magnesium Oxide 400 mg 11/16/18 08:00 11/18/18 08:15 Mag-Ox 400 PO 400 mg DAILYCM SUNG Administration Metoprolol Succinate 25 mg 11/16/18 06:00 11/18/18 05:41 Toprol Xl (Beta [place]) PO 25 mg DAILY SUNG Administration Mexiletine HCl 150 mg 11/15/18 22:00 11/18/18 05:42 Mexitil PO 150 mg Q8H SUNG Administration Nitroglycerin 0.4 mg 11/15/18 16:29 Nitrostat SUBLINGUAL Q5M PRN CHEST PAIN Nutritional Formula 1 packet 11/15/18 17:00 11/18/18 08:15 Chase - [place] Flavor PO 1 packet BIDCM SUNG Administration Nutritional Formula (Lactose Free) 120 ml 11/15/18 17:00 11/18/18 11:50 Glucerna Shake PO 120 ml 4X/DAY SUNG Administration Polyethylene Glycol 17 gm 11/16/18 06:00 11/18/18 05:50 Miralax PO Not Given DAILY [facility] Potassium Chloride 20 meq 11/16/18 08:00 11/18/18 08:15 K-Dur PO 20 meq DAILYCM [facility] Administration Pramipexole Dihydrochloride 1 mg 11/15/18 18:00 11/18/18 05:41 Mirapex PO 1 mg BID SUNG Administration Ranolazine 1,000 mg 11/15/18 18:00 11/18/18 05:41 Ranexa PO 1,000 mg BID SUNG Administration Rifaximin 550 mg 11/15/18 18:00 11/18/18 05:42 Xifaxan PO 550 mg BID [facility] Administration Senna/Docusate Sodium 1 tablet 11/16/18 06:00 11/18/18 05:51 Senokot-S, Laura-Colace PO Not Given BID [facility] Tuberculin PPD 5 tu 11/23/18 10:00 Tubersol, Aplisol, Ppd ID 11/23/18 10:01 X1 ONE Problem List (Last Reviewed 11/04/18 @ 15:55 by Ana Cristina Cobos) Acute delirium (Acute) Hepatic encephalopathy (Acute) Cirrhosis of liver (Chronic) Acute on chronic kidney failure (Acute) Hyperammonemia (Acute) Ventricular tachycardia (Chronic) Diabetes mellitus (Chronic) Seizure disorder (Chronic) Atrial fibrillation (Chronic) Vital Signs Temp Pulse Resp BP Pulse Ox 98.1 F 82 18 118/71 97 11/17/18 15:20 11/18/18 05:41 11/17/18 15:20 11/18/18 05:41 11/17/18 15:20 Oxygen Delivery Method Room Air Weight: 86.353 kg Body Mass Index (BMI) 29.8 Finger Stick Blood Glucose 249 Sodium 133 mmol/L (136-145) L 11/16/18 06:34 Potassium 4.4 mmol/L (3.5-5.1) 11/16/18 06:34 Chloride 98 mmol/L (98-107) 11/16/18 06:34 Carbon Dioxide 25.0 mmol/L (21.0-32.0) 11/16/18 06:34 Anion Gap 10 (5-15) 11/16/18 06:34 BUN 37 mg/dL (7-18) H 11/16/18 06:34 Creatinine 2.04 mg/dL (0.70-1.30) H 11/16/18 06:34 Est GFR (MDRD) Af Amer 41 mL/min (>60) L 11/16/18 06:34 Est GFR (MDRD) Non-Af 34 mL/min (>60) L 11/16/18 06:34 BUN/Creatinine Ratio 18.1 RATIO (10-20) 11/16/18 06:34 Glucose 173 mg/dL (74-106) H 11/16/18 06:34 Assessment/Plan: 1) Pain APAP for mild pain. Continue to monitor daily pain scores, prn medication use. 2) CAD/AFib/CHF ASA, atorvastatin, ranolazine, metoprolol, bumetanide/KCl, mexiletine, isosorbide, hydralazine, prn ntg. Continue to monitor BP/HR, electrolytes, renal function, lipids, prn medication use, s/s chest pain. 3) DM2 Linagliptin daily. Continue to monitor BGT. 4) RLS Pramipexole. Continue to monitor for restless legs. 5) Seizure Disorder Levetiracetam. Continue to monitor for seizure. 6) Hypothyroidism Levothyroxine daily. Continue to monitor s/s hyper/hypothyroidism. 7) DVT PPx Enoxaparin daily. Continue to monitor for bleeding/clot. 8) Nutrition Chase, Mg, Glucerna. Continue to monitor electrolytes. Psychotropic Medications: None Unnecessary Medications: None Bowel Regimen: * 9) Senna/s, PEG, lactulose/rifaximin, prn bisacodyl. Continue to monitor prn medication use, for constipation/diarrhea. * Patient is having loose stools with lactulose/rifaximin and is refusing senna/s and PEG. Consider dc senna and PEG. Date of Note:: 11/18/18 - Provider Comments Provider responsibility: Provider responsible to enter orders to implement recommendations <Aristeo Ray Chi - Last Filed: 11/18/18 12:56> Progress Note - Pharmacy Subjective: [] Objective: Allergies amiodarone Allergy (Verified 11/13/18 01:51) dizziness meperidine [From Demerol] Allergy (Verified 11/12/18 20:50) Low blood pressure spironolactone Allergy (Verified 11/12/18 20:50) Nausea simvastatin Adverse Reaction (Mild, Verified 11/12/18 20:50) Myalgias Current Medications Generic Name Dose Route Start Last Admin Trade Name Freq PRN Reason Stop Dose Admin Acetaminophen 650 mg 11/15/18 20:07 Tylenol PO Q6H PRN PRN MILD PAIN (1-3/10) Aspirin 81 mg 11/16/18 08:00 11/18/18 08:15 Ecotrin PO 81 mg DAILY@0800 SUNG Administration Atorvastatin Calcium 10 mg 11/15/18 22:00 11/17/18 21:12 Lipitor PO 10 mg DAILY@2200 [facility] Administration Bisacodyl 10 mg 11/15/18 20:08 Dulcolax PO DAILY PRN Constipation Bumetanide 1 mg 11/15/18 18:00 11/18/18 05:41 Bumex PO 1 mg BID SUNG Administration Enoxaparin Sodium 30 mg 11/16/18 06:00 11/18/18 05:41 Lovenox SC 30 mg DAILY@0600 [facility] Administration Hydralazine HCl 25 mg 11/15/18 22:00 11/18/18 05:41 Apresoline PO 25 mg TID SUNG Administration Isosorbide Mononitrate 60 mg 11/16/18 06:00 11/18/18 05:41 Imdur PO 60 mg DAILY SUNG Administration Lactulose 20 gm 11/16/18 06:00 11/18/18 05:51 Chronulac, Cephulac PO 20 gm DAILY SUNG Administration Levetiracetam 1,000 mg 11/15/18 18:00 11/18/18 05:41 Keppra Tablet PO 1,000 mg BID SUNG Administration Levothyroxine Sodium 50 mcg 11/16/18 06:00 11/18/18 05:41 Synthroid PO 50 mcg DAILY SUNG Administration Linagliptin 5 mg 11/16/18 06:00 11/18/18 05:41 Tradjenta PO 5 mg DAILY SUNG Administration Magnesium Oxide 400 mg 11/16/18 08:00 11/18/18 08:15 Mag-Ox 400 PO 400 mg DAILYCM [facility] Administration Metoprolol Succinate 25 mg 11/16/18 06:00 11/18/18 05:41 Toprol Xl (Beta [place]) PO 25 mg DAILY SUNG Administration Mexiletine HCl 150 mg 11/15/18 22:00 11/18/18 05:42 Mexitil PO 150 mg Q8H SUNG Administration Nitroglycerin 0.4 mg 11/15/18 16:29 Nitrostat SUBLINGUAL Q5M PRN CHEST PAIN Nutritional Formula 1 packet 11/15/18 17:00 11/18/18 08:15 Chase - [place] Flavor PO 1 packet BIDCM SUNG Administration Nutritional Formula (Lactose Free) 120 ml 11/15/18 17:00 11/18/18 11:50 Glucerna Shake PO 120 ml 4X/DAY SUNG Administration Polyethylene Glycol 17 gm 11/16/18 06:00 11/18/18 05:50 Miralax PO Not Given DAILY [facility] Potassium Chloride 20 meq 11/16/18 08:00 11/18/18 08:15 K-Dur PO 20 meq DAILYCM [facility] Administration Pramipexole Dihydrochloride 1 mg 11/15/18 18:00 11/18/18 05:41 Mirapex PO 1 mg BID SUNG Administration Ranolazine 1,000 mg 11/15/18 18:00 11/18/18 05:41 Ranexa PO 1,000 mg BID SUNG Administration Rifaximin 550 mg 11/15/18 18:00 11/18/18 05:42 Xifaxan PO 550 mg BID SUNG Administration Senna/Docusate Sodium 1 tablet 11/16/18 06:00 11/18/18 05:51 Senokot-S, Laura-Colace PO Not Given BID [facility]G Tuberculin PPD 5 tu 11/23/18 10:00 Tubersol, Aplisol, Ppd ID 11/23/18 10:01 X1 ONE Problem List (Last Reviewed 11/04/18 @ 15:55 by Ana Cristina Cobos) Acute delirium (Acute) Hepatic encephalopathy (Acute) Cirrhosis of liver (Chronic) Acute on chronic kidney failure (Acute) Hyperammonemia (Acute) Ventricular tachycardia (Chronic) Diabetes mellitus (Chronic) Seizure disorder (Chronic) Atrial fibrillation (Chronic) Vital Signs Temp Pulse Resp BP Pulse Ox 98.1 F 82 18 118/71 97 11/17/18 15:20 11/18/18 05:41 11/17/18 15:20 11/18/18 05:41 11/17/18 15:20 Oxygen Delivery Method Room Air Weight: 86.353 kg Body Mass Index (BMI) 29.8 Finger Stick Blood Glucose 249 Sodium 133 mmol/L (136-145) L 11/16/18 06:34 Potassium 4.4 mmol/L (3.5-5.1) 11/16/18 06:34 Chloride 98 mmol/L (98-107) 11/16/18 06:34 Carbon Dioxide 25.0 mmol/L (21.0-32.0) 11/16/18 06:34 Anion Gap 10 (5-15) 11/16/18 06:34 BUN 37 mg/dL (7-18) H 11/16/18 06:34 Creatinine 2.04 mg/dL (0.70-1.30) H 11/16/18 06:34 Est GFR (MDRD) Af Amer 41 mL/min (>60) L 11/16/18 06:34 Est GFR (MDRD) Non-Af 34 mL/min (>60) L 11/16/18 06:34 BUN/Creatinine Ratio 18.1 RATIO (10-20) 11/16/18 06:34 Glucose 173 mg/dL (74-106) H 11/16/18 06:34 Assessment/Plan: Psychotropic Medications: Unnecessary Medications: Bowel Regimen: - Provider Comments Provider responsibility: Provider responsible to enter orders to implement recommendations Provider Comments to Recommendations by Pharmacy: Agree
--- NOTE | 2018-11-18 12:11 | PHA.CONS_ITS ---
<Rajat Doe D - Last Filed: 11/18/18 12:28> Progress Note - Pharmacy Subjective: TCU Admission Objective: Allergies amiodarone Allergy (Verified 11/13/18 01:51) dizziness meperidine [From Demerol] Allergy (Verified 11/12/18 20:50) Low blood pressure spironolactone Allergy (Verified 11/12/18 20:50) Nausea simvastatin Adverse Reaction (Mild, Verified 11/12/18 20:50) Myalgias Current Medications Generic Name Dose Route Start Last Admin Trade Name Freq PRN Reason Stop Dose Admin Acetaminophen 650 mg 11/15/18 20:07 Tylenol PO Q6H PRN PRN MILD PAIN (1-310) Aspirin 81 mg 11/16/18 08:00 11/18/18 08:15 Ecotrin PO 81 mg DAILY@0800 SUNG Administration Atorvastatin Calcium 10 mg 11/15/18 22:00 11/17/18 21:12 Lipitor PO 10 mg DAILY@2200 SUNG Administration Bisacodyl 10 mg 11/15/18 20:08 Dulcolax PO DAILY PRN Constipation Bumetanide 1 mg 11/15/18 18:00 11/18/18 05:41 Bumex PO 1 mg BID SUNG Administration Enoxaparin Sodium 30 mg 11/16/18 06:00 11/18/18 05:41 Lovenox SC 30 mg DAILY@0600 SUNG Administration Hydralazine HCl 25 mg 11/15/18 22:00 11/18/18 05:41 Apresoline PO 25 mg TID SUNG Administration Isosorbide Mononitrate 60 mg 11/16/18 06:00 11/18/18 05:41 Imdur PO 60 mg DAILY SUNG Administration Lactulose 20 gm 11/16/18 06:00 11/18/18 05:51 Chronulac, Cephulac PO 20 gm DAILY SUNG Administration Levetiracetam 1,000 mg 11/15/18 18:00 11/18/18 05:41 Keppra Tablet PO 1,000 mg BID SUNG Administration Levothyroxine Sodium 50 mcg 11/16/18 06:00 11/18/18 05:41 Synthroid PO 50 mcg DAILY SUNG Administration Linagliptin 5 mg 11/16/18 06:00 11/18/18 05:41 Tradjenta PO 5 mg DAILY SUNG Administration Magnesium Oxide 400 mg 11/16/18 08:00 11/18/18 08:15 Mag-Ox 400 PO 400 mg DAILYCM SUNG Administration Metoprolol Succinate 25 mg 11/16/18 06:00 11/18/18 05:41 Toprol Xl (Beta [place]) PO 25 mg DAILY SUNG Administration Mexiletine HCl 150 mg 11/15/18 22:00 11/18/18 05:42 Mexitil PO 150 mg Q8H SUNG Administration Nitroglycerin 0.4 mg 11/15/18 16:29 Nitrostat SUBLINGUAL Q5M PRN CHEST PAIN Nutritional Formula 1 packet 11/15/18 17:00 11/18/18 08:15 Chase - [place] Flavor PO 1 packet BIDCM SUNG Administration Nutritional Formula (Lactose Free) 120 ml 11/15/18 17:00 11/18/18 11:50 Glucerna Shake PO 120 ml 4X/DAY SUNG Administration Polyethylene Glycol 17 gm 11/16/18 06:00 11/18/18 05:50 Miralax PO Not Given DAILY [facility] Potassium Chloride 20 meq 11/16/18 08:00 11/18/18 08:15 K-Dur PO 20 meq DAILYCM [facility] Administration Pramipexole Dihydrochloride 1 mg 11/15/18 18:00 11/18/18 05:41 Mirapex PO 1 mg BID SUNG Administration Ranolazine 1,000 mg 11/15/18 18:00 11/18/18 05:41 Ranexa PO 1,000 mg BID SUNG Administration Rifaximin 550 mg 11/15/18 18:00 11/18/18 05:42 Xifaxan PO 550 mg BID [facility] Administration Senna/Docusate Sodium 1 tablet 11/16/18 06:00 11/18/18 05:51 Senokot-S, Laura-Colace PO Not Given BID [facility] Tuberculin PPD 5 tu 11/23/18 10:00 Tubersol, Aplisol, Ppd ID 11/23/18 10:01 X1 ONE Problem List (Last Reviewed 11/04/18 @ 15:55 by Ana Cristina Cobos) Acute delirium (Acute) Hepatic encephalopathy (Acute) Cirrhosis of liver (Chronic) Acute on chronic kidney failure (Acute) Hyperammonemia (Acute) Ventricular tachycardia (Chronic) Diabetes mellitus (Chronic) Seizure disorder (Chronic) Atrial fibrillation (Chronic) Vital Signs Temp Pulse Resp BP Pulse Ox 98.1 F 82 18 118/71 97 11/17/18 15:20 11/18/18 05:41 11/17/18 15:20 11/18/18 05:41 11/17/18 15:20 Oxygen Delivery Method Room Air Weight: 86.353 kg Body Mass Index (BMI) 29.8 Finger Stick Blood Glucose 249 Sodium 133 mmol/L (136-145) L 11/16/18 06:34 Potassium 4.4 mmol/L (3.5-5.1) 11/16/18 06:34 Chloride 98 mmol/L (98-107) 11/16/18 06:34 Carbon Dioxide 25.0 mmol/L (21.0-32.0) 11/16/18 06:34 Anion Gap 10 (5-15) 11/16/18 06:34 BUN 37 mg/dL (7-18) H 11/16/18 06:34 Creatinine 2.04 mg/dL (0.70-1.30) H 11/16/18 06:34 Est GFR (MDRD) Af Amer 41 mL/min (>60) L 11/16/18 06:34 Est GFR (MDRD) Non-Af 34 mL/min (>60) L 11/16/18 06:34 BUN/Creatinine Ratio 18.1 RATIO (10-20) 11/16/18 06:34 Glucose 173 mg/dL (74-106) H 11/16/18 06:34 Assessment/Plan: 1) Pain APAP for mild pain. Continue to monitor daily pain scores, prn medication use. 2) CAD/AFib/CHF ASA, atorvastatin, ranolazine, metoprolol, bumetanide/KCl, mexiletine, isosorbide, hydralazine, prn ntg. Continue to monitor BP/HR, electrolytes, renal function, lipids, prn medication use, s/s chest pain. 3) DM2 Linagliptin daily. Continue to monitor BGT. 4) RLS Pramipexole. Continue to monitor for restless legs. 5) Seizure Disorder Levetiracetam. Continue to monitor for seizure. 6) Hypothyroidism Levothyroxine daily. Continue to monitor s/s hyper/hypothyroidism. 7) DVT PPx Enoxaparin daily. Continue to monitor for bleeding/clot. 8) Nutrition Chase, Mg, Glucerna. Continue to monitor electrolytes. Psychotropic Medications: None Unnecessary Medications: None Bowel Regimen: * 9) Senna/s, PEG, lactulose/rifaximin, prn bisacodyl. Continue to monitor prn medication use, for constipation/diarrhea. * Patient is having loose stools with lactulose/rifaximin and is refusing senna/s and PEG. Consider dc senna and PEG. Date of Note:: 11/18/18 - Provider Comments Provider responsibility: Provider responsible to enter orders to implement recommendations <Aristeo Ray Chi - Last Filed: 11/18/18 12:56> Progress Note - Pharmacy Subjective: [] Objective: Allergies amiodarone Allergy (Verified 11/13/18 01:51) dizziness meperidine [From Demerol] Allergy (Verified 11/12/18 20:50) Low blood pressure spironolactone Allergy (Verified 11/12/18 20:50) Nausea simvastatin Adverse Reaction (Mild, Verified 11/12/18 20:50) Myalgias Current Medications Generic Name Dose Route Start Last Admin Trade Name Freq PRN Reason Stop Dose Admin Acetaminophen 650 mg 11/15/18 20:07 Tylenol PO Q6H PRN PRN MILD PAIN (1-3/10) Aspirin 81 mg 11/16/18 08:00 11/18/18 08:15 Ecotrin PO 81 mg DAILY@0800 SUNG Administration Atorvastatin Calcium 10 mg 11/15/18 22:00 11/17/18 21:12 Lipitor PO 10 mg DAILY@2200 [facility] Administration Bisacodyl 10 mg 11/15/18 20:08 Dulcolax PO DAILY PRN Constipation Bumetanide 1 mg 11/15/18 18:00 11/18/18 05:41 Bumex PO 1 mg BID SUNG Administration Enoxaparin Sodium 30 mg 11/16/18 06:00 11/18/18 05:41 Lovenox SC 30 mg DAILY@0600 [facility] Administration Hydralazine HCl 25 mg 11/15/18 22:00 11/18/18 05:41 Apresoline PO 25 mg TID SUNG Administration Isosorbide Mononitrate 60 mg 11/16/18 06:00 11/18/18 05:41 Imdur PO 60 mg DAILY SUNG Administration Lactulose 20 gm 11/16/18 06:00 11/18/18 05:51 Chronulac, Cephulac PO 20 gm DAILY SUNG Administration Levetiracetam 1,000 mg 11/15/18 18:00 11/18/18 05:41 Keppra Tablet PO 1,000 mg BID SUNG Administration Levothyroxine Sodium 50 mcg 11/16/18 06:00 11/18/18 05:41 Synthroid PO 50 mcg DAILY SUNG Administration Linagliptin 5 mg 11/16/18 06:00 11/18/18 05:41 Tradjenta PO 5 mg DAILY SUNG Administration Magnesium Oxide 400 mg 11/16/18 08:00 11/18/18 08:15 Mag-Ox 400 PO 400 mg DAILYCM [facility] Administration Metoprolol Succinate 25 mg 11/16/18 06:00 11/18/18 05:41 Toprol Xl (Beta [place]) PO 25 mg DAILY SUNG Administration Mexiletine HCl 150 mg 11/15/18 22:00 11/18/18 05:42 Mexitil PO 150 mg Q8H SUNG Administration Nitroglycerin 0.4 mg 11/15/18 16:29 Nitrostat SUBLINGUAL Q5M PRN CHEST PAIN Nutritional Formula 1 packet 11/15/18 17:00 11/18/18 08:15 [place] - [place] Flavor PO 1 packet BIDCM SUNG Administration Nutritional Formula (Lactose Free) 120 ml 11/15/18 17:00 11/18/18 11:50 Glucerna Shake PO 120 ml 4X/DAY SUNG Administration Polyethylene Glycol 17 gm 11/16/18 06:00 11/18/18 05:50 Miralax PO Not Given DAILY [facility] Potassium Chloride 20 meq 11/16/18 08:00 11/18/18 08:15 K-Dur PO 20 meq DAILYCM [facility] Administration Pramipexole Dihydrochloride 1 mg 11/15/18 18:00 11/18/18 05:41 Mirapex PO 1 mg BID SUNG Administration Ranolazine 1,000 mg 11/15/18 18:00 11/18/18 05:41 Ranexa PO 1,000 mg BID SUNG Administration Rifaximin 550 mg 11/15/18 18:00 11/18/18 05:42 Xifaxan PO 550 mg BID SUNG Administration Senna/Docusate Sodium 1 tablet 11/16/18 06:00 11/18/18 05:51 Senokot-S, Laura-Colace PO Not Given BID SUNG Tuberculin PPD 5 tu 11/23/18 10:00 Tubersol, Aplisol, Ppd ID 11/23/18 10:01 X1 ONE Problem List (Last Reviewed 11/04/18 @ 15:55 by Ana Cristina Cobos) Acute delirium (Acute) Hepatic encephalopathy (Acute) Cirrhosis of liver (Chronic) Acute on chronic kidney failure (Acute) Hyperammonemia (Acute) Ventricular tachycardia (Chronic) Diabetes mellitus (Chronic) Seizure disorder (Chronic) Atrial fibrillation (Chronic) Vital Signs Temp Pulse Resp BP Pulse Ox 98.1 F 82 18 118/71 97 11/17/18 15:20 11/18/18 05:41 11/17/18 15:20 11/18/18 05:41 11/17/18 15:20 Oxygen Delivery Method Room Air Weight: 86.353 kg Body Mass Index (BMI) 29.8 Finger Stick Blood Glucose 249 Sodium 133 mmol/L (136-145) L 11/16/18 06:34 Potassium 4.4 mmol/L (3.5-5.1) 11/16/18 06:34 Chloride 98 mmol/L (98-107) 11/16/18 06:34 Carbon Dioxide 25.0 mmol/L (21.0-32.0) 11/16/18 06:34 Anion Gap 10 (5-15) 11/16/18 06:34 BUN 37 mg/dL (7-18) H 11/16/18 06:34 Creatinine 2.04 mg/dL (0.70-1.30) H 11/16/18 06:34 Est GFR (MDRD) Af Amer 41 mL/min (>60) L 11/16/18 06:34 Est GFR (MDRD) Non-Af 34 mL/min (>60) L 11/16/18 06:34 BUN/Creatinine Ratio 18.1 RATIO (10-20) 11/16/18 06:34 Glucose 173 mg/dL (74-106) H 11/16/18 06:34 Assessment/Plan: Psychotropic Medications: Unnecessary Medications: Bowel Regimen: - Provider Comments Provider responsibility: Provider responsible to enter orders to implement recommendations Provider Comments to Recommendations by Pharmacy: Agree
[2018-11-18 15:32] VITALS: PULSE 60
[2018-11-18 15:34] VITALS: BP 105/64; PULSE 82; RESP 18; TEMP 35.8; O2SAT 98
[2018-11-18] MEDS: Atorvastatin Calcium 10 MG Tablet PO (21:19)
[2018-11-18 21:28] VITALS: BP 91/46; PULSE 80
--- NOTE | 2018-11-18 21:30 | NURSING ---
Pts BP tonight 97/52, HR 80. Rechecked BP 91/46, HR 80. Dr. Ray aware, and new order to DC hydralazine. Updated pt and will continue to monitor.
[2018-11-19 05:58] VITALS: BP 112/71; PULSE 82
[2018-11-19] MEDS: Metoprolol(XL)Succ 25 MG Tablet PO (05:58)
[2018-11-19] MEDS: LINAGLIPTIN 5 MG TABLET PO (05:58)
[2018-11-19] MEDS: Glucerna Shake 120 ML LIQUID PO ×3 (05:58→17:04)
[2018-11-19] MEDS: Levothyroxine 50 MCG Tablet PO (05:58)
[2018-11-19] MEDS: Enoxaparin 30 MG/0.3 ML Syringe SC (05:58)
[2018-11-19] MEDS: Pramipexole Di-HCl 1 MG Tablet PO ×2 (05:59→16:58)
[2018-11-19] MEDS: Mexiletine 150 MG Capsule PO ×3 (05:59→21:12)
[2018-11-19] MEDS: Isosorbide Mononitrate 60 MG Tablet PO (05:59)
[2018-11-19] MEDS: Lactulose 20 GM/30 ML UDC PO (05:59)
[2018-11-19] MEDS: levETIRAcetam 1,000 MG Tablet 1000 MG PO ×2 (05:59→16:57)
[2018-11-19] MEDS: Bumetanide 0.5 MG Tablet 1 MG PO ×2 (05:59→16:58)
[2018-11-19] MEDS: Ranolazine 500 MG Tablet 1000 MG PO ×2 (05:59→16:57)
[2018-11-19] MEDS: rifAXIMin 550 MG Tablet PO ×2 (05:59→16:59)
[2018-11-19 07:15] LABS: Bedside Glucose 157 mg/dL (70-110)
[2018-11-19] MEDS: Magnesium Oxide 400 MG Tablet PO (08:35)
[2018-11-19] MEDS: Aspirin E.C. 81 MG Tablet PO (08:35)
--- NOTE | 2018-11-19 09:46 | NURSING ---
wound photo: buttocks
[2018-11-19 10:22] LABS: Pathologist Review Reviewed
[2018-11-19 15:23] VITALS: BP 121/77; PULSE 78; RESP 18; TEMP 35.6; O2SAT 98
--- NOTE | 2018-11-19 15:50 | NURSING ---
Dr. Lomax in to see patient today. NNO.
[2018-11-19 16:55] LABS: AFP, Tumor Marker 6.5 ng/mL (0.0-8.3)
[2018-11-19] MEDS: Menthol/Lanolin/Calamine/Znox 113 GM Tube 1 APPLIC TOPICAL (16:58)
--- NOTE | 2018-11-19 17:47 | NURSING ---
Pt noted to have increased confusion, Dr. Ray updated. NO for ammonia level today.
[2018-11-19] MEDS: Atorvastatin Calcium 10 MG Tablet PO (21:12)
[2018-11-20] MEDS: Lactulose 20 GM/30 ML UDC PO (06:12)
[2018-11-20] MEDS: Glucerna Shake 120 ML LIQUID PO ×4 (06:12→21:18)
[2018-11-20 06:13] VITALS: BP 114/76; PULSE 80
[2018-11-20] MEDS: Bumetanide 0.5 MG Tablet 1 MG PO ×2 (06:13→16:39)
[2018-11-20] MEDS: Mexiletine 150 MG Capsule PO ×3 (06:13→21:18)
[2018-11-20] MEDS: Ranolazine 500 MG Tablet 1000 MG PO ×2 (06:13→16:39)
[2018-11-20] MEDS: Enoxaparin 30 MG/0.3 ML Syringe SC (06:13)
[2018-11-20] MEDS: Levothyroxine 50 MCG Tablet PO (06:13)
[2018-11-20] MEDS: levETIRAcetam 1,000 MG Tablet 1000 MG PO ×2 (06:13→16:39)
[2018-11-20] MEDS: rifAXIMin 550 MG Tablet PO ×2 (06:13→16:40)
[2018-11-20] MEDS: LINAGLIPTIN 5 MG TABLET PO (06:13)
[2018-11-20] MEDS: Metoprolol(XL)Succ 25 MG Tablet PO (06:13)
[2018-11-20] MEDS: Pramipexole Di-HCl 1 MG Tablet PO ×2 (06:13→16:39)
[2018-11-20] MEDS: Isosorbide Mononitrate 60 MG Tablet PO (06:13)
[2018-11-20] MEDS: Menthol/Lanolin/Calamine/Znox 113 GM Tube 1 APPLIC TOPICAL (06:24)
[2018-11-20 06:50] LABS: Bedside Glucose 152 mg/dL (70-110)
--- NOTE | 2018-11-20 08:40 | NURSING ---
Dr. Ray reviewed ammonia level, NNO.
[2018-11-20] MEDS: Magnesium Oxide 400 MG Tablet PO (09:46)
[2018-11-20] MEDS: Aspirin E.C. 81 MG Tablet PO (09:46)
--- NOTE | 2018-11-20 11:33 | CASEMGMT ---
Plan of care meeting held. Resident present as well as resident family. No discharge date set at this time. Resident to continue with further care and treatment on the Transitional Care Unit. Resident does have an insurance update due on this day and aware that continued stay approval is not guaranteed. Resident plans to discharge to home with spouse at time of discharge. Support given. Will continue to follow. Freeman RODRÍGUEZ, CAR CARDER
--- NOTE | 2018-11-20 15:01 | NURSING ---
Pt has c/o SOB, respirations labored at rest, oxygen 97% on RA, LSCTA. Denies cough. 1+ edema to BLLE. Weight stable at 190lbs. Dr. Ray updated, NO for albuterol 2.5mg aerosols [id number] PRN.
--- NOTE | 2018-11-20 15:03 | CASEMGMT ---
Insurance Clinical information sent. Pending continued stay approval at this time. Auth#[id number] SAIMA Lal
[2018-11-20 15:17] VITALS: BP 108/70; PULSE 80; RESP 20; TEMP 35.8; O2SAT 97
[2018-11-20 15:31] VITALS: PULSE 85; RESP 20; O2SAT 95
[2018-11-20] MEDS: Albuterol 2.5 MG/3 ML VIAL.NEB. INHALATION (15:31)
[2018-11-20] MEDS: Atorvastatin Calcium 10 MG Tablet PO (21:18)
[2018-11-21] MEDS: Lactulose 20 GM/30 ML UDC PO (05:57)
[2018-11-21] MEDS: Glucerna Shake 120 ML LIQUID PO ×4 (05:57→20:48)
[2018-11-21] MEDS: Bumetanide 0.5 MG Tablet 1 MG PO ×2 (05:57→17:35)
[2018-11-21] MEDS: Menthol/Lanolin/Calamine/Znox 113 GM Tube 1 APPLIC TOPICAL ×2 (05:57→17:39)
[2018-11-21 05:58] VITALS: BP 113/68; PULSE 80
[2018-11-21] MEDS: Pramipexole Di-HCl 1 MG Tablet PO ×2 (05:58→17:35)
[2018-11-21] MEDS: Mexiletine 150 MG Capsule PO ×3 (05:58→20:47)
[2018-11-21] MEDS: Enoxaparin 30 MG/0.3 ML Syringe SC (05:58)
[2018-11-21] MEDS: Ranolazine 500 MG Tablet 1000 MG PO ×2 (05:58→17:34)
[2018-11-21] MEDS: Isosorbide Mononitrate 60 MG Tablet PO (05:58)
[2018-11-21] MEDS: Metoprolol(XL)Succ 25 MG Tablet PO (05:58)
[2018-11-21] MEDS: levETIRAcetam 1,000 MG Tablet 1000 MG PO ×2 (05:58→17:35)
[2018-11-21] MEDS: Levothyroxine 50 MCG Tablet PO (05:58)
[2018-11-21] MEDS: LINAGLIPTIN 5 MG TABLET PO (05:59)
[2018-11-21] MEDS: rifAXIMin 550 MG Tablet PO ×2 (05:59→17:35)
[2018-11-21 06:26] LABS: Bedside Glucose 115 mg/dL (70-110)
[2018-11-21] MEDS: Aspirin E.C. 81 MG Tablet PO (08:37)
[2018-11-21] MEDS: Magnesium Oxide 400 MG Tablet PO (08:37)
--- NOTE | 2018-11-21 12:55 | CASEMGMT ---
Brief interview for mental status (BIMS) and resident mood interview (PHQ-9) completed on this day. BIMS score 15. PHQ-9 score 11/24
--- NOTE | 2018-11-21 13:23 | MDS.RN ---
Pain interview for lakisha 11/22/18 completed.
[2018-11-21 15:34] VITALS: BP 113/65; PULSE 80; RESP 18; TEMP 36.4; O2SAT 99
--- NOTE | 2018-11-21 15:56 | CHAPLAIN ---
Type of Pastoral Visit ___ Initial Visit _x__ Follow-up Visit ___ On-call Visit ___ General Patient Visit ___ Spiritual Assessment ___ Family Conference ___ Bereavement ___ Rapid Response ___ Code Blue ___ Other (describe below) Pastoral Care Referral From _x__ Patient _x__ Family ___ Nurse ___ Physician ___ Counselor Aide ___ Route Salesperson ___ Other (describe below) Sacrament/Intervention _x__ Active listening ___ Anointing ___ Denominational ___ Bereavement ___ Communion _x__ Evelyne exploration ___ ___ Life review _x__ Prayer ___ Reconciliation ___ Sacrament of Sick ___ Supportive presence ___ Wedding ___ Other (describe below) Pastoral Comments talked with spouse of pt and with patient but at different times; pt speaks about cooking today in OT; pt expresses thankfulness to God for improvement; family very open to spiritual support and care as this has been a journey over many weeks at hospital through several admissions
--- NOTE | 2018-11-21 16:38 | CASEMGMT ---
Social Work Spoke with resident and resident spouse. Resident spouse requesting for a referral to be made to Palliative Care, resident agrees. This psychiatric social worker supervisor inquiring appropriateness of Palliative Care referral to Dr. Ray. Dr. Ray reporting that Palliative Care referral is appropriate. Resident spouse requesting for referral to be made to [facility]. Support given. Will continue to follow. SAIMA Lal
--- NOTE | 2018-11-21 16:55 | CASEMGMT ---
Insurance Continued stay approved with next update due on 11/25/18 Auth#[id number] SAIMA Lal
[2018-11-21] MEDS: SACUBITRIL/VALSARTAN 24/26 MG TABLET 1 EACH PO (17:38)
[2018-11-21] MEDS: Atorvastatin Calcium 10 MG Tablet PO (20:47)
[2018-11-22 05:07] VITALS: BP 110/64; PULSE 83
[2018-11-22] MEDS: Lactulose 20 GM/30 ML UDC PO (05:07)
[2018-11-22] MEDS: rifAXIMin 550 MG Tablet PO ×2 (05:07→17:12)
[2018-11-22] MEDS: Enoxaparin 30 MG/0.3 ML Syringe SC (05:07)
[2018-11-22] MEDS: Metoprolol(XL)Succ 25 MG Tablet PO (05:07)
[2018-11-22] MEDS: LINAGLIPTIN 5 MG TABLET PO (05:07)
[2018-11-22] MEDS: levETIRAcetam 1,000 MG Tablet 1000 MG PO ×2 (05:08→17:12)
[2018-11-22] MEDS: Bumetanide 0.5 MG Tablet 1 MG PO ×2 (05:08→17:11)
[2018-11-22] MEDS: Levothyroxine 50 MCG Tablet PO (05:08)
[2018-11-22] MEDS: Isosorbide Mononitrate 60 MG Tablet PO (05:08)
[2018-11-22] MEDS: Pramipexole Di-HCl 1 MG Tablet PO ×2 (05:08→17:12)
[2018-11-22] MEDS: Mexiletine 150 MG Capsule PO ×3 (05:08→21:37)
[2018-11-22] MEDS: Ranolazine 500 MG Tablet 1000 MG PO ×2 (05:08→17:11)
[2018-11-22] MEDS: SACUBITRIL/VALSARTAN 24/26 MG TABLET 1 EACH PO ×2 (05:08→17:12)
[2018-11-22] MEDS: Glucerna Shake 120 ML LIQUID PO ×4 (05:10→21:37)
[2018-11-22] MEDS: Menthol/Lanolin/Calamine/Znox 113 GM Tube 1 APPLIC TOPICAL ×2 (05:14→17:15)
[2018-11-22 05:17] VITALS: O2SAT 96
[2018-11-22 06:51] LABS: Bedside Glucose 120 mg/dL (70-110)
[2018-11-22] MEDS: Aspirin E.C. 81 MG Tablet PO (07:49)
[2018-11-22] MEDS: Magnesium Oxide 400 MG Tablet PO (07:50)
[2018-11-22 16:00] VITALS: BP 92/58; PULSE 67; RESP 20; TEMP 36.7; O2SAT 98
--- NOTE | 2018-11-22 16:27 | NURSING ---
Addendum entered by Daria Matute 11/25/18 11:12: here and updated on BP's. Original Note: PT BP low this evening, Dr Cory razo'simone Imdur.
[2018-11-22] MEDS: Atorvastatin Calcium 10 MG Tablet PO (21:37)
[2018-11-23] MEDS: Enoxaparin 30 MG/0.3 ML Syringe SC (04:39)
[2018-11-23] MEDS: Glucerna Shake 120 ML LIQUID PO ×4 (04:39→21:12)
[2018-11-23] MEDS: Lactulose 20 GM/30 ML UDC PO (04:40)
[2018-11-23] MEDS: LINAGLIPTIN 5 MG TABLET PO (04:40)
[2018-11-23] MEDS: Levothyroxine 50 MCG Tablet PO (04:40)
[2018-11-23] MEDS: levETIRAcetam 1,000 MG Tablet 1000 MG PO ×2 (04:40→17:19)
[2018-11-23] MEDS: Ranolazine 500 MG Tablet 1000 MG PO ×2 (04:40→17:20)
[2018-11-23] MEDS: rifAXIMin 550 MG Tablet PO ×2 (04:40→17:19)
[2018-11-23] MEDS: SACUBITRIL/VALSARTAN 24/26 MG TABLET 1 EACH PO ×2 (04:40→04:43)
[2018-11-23] MEDS: Pramipexole Di-HCl 1 MG Tablet PO ×2 (04:42→17:19)
[2018-11-23] MEDS: Bumetanide 0.5 MG Tablet 1 MG PO ×2 (04:42→17:19)
[2018-11-23] MEDS: Mexiletine 150 MG Capsule PO ×3 (04:43→21:12)
[2018-11-23 04:44] VITALS: BP 115/72; PULSE 89
[2018-11-23] MEDS: Metoprolol(XL)Succ 25 MG Tablet PO (04:44)
[2018-11-23] MEDS: Menthol/Lanolin/Calamine/Znox 113 GM Tube 1 APPLIC TOPICAL ×2 (04:50→17:19)
[2018-11-23 06:51] LABS: Bedside Glucose 106 mg/dL (70-110)
[2018-11-23] MEDS: Magnesium Oxide 400 MG Tablet PO (07:47)
[2018-11-23] MEDS: Aspirin E.C. 81 MG Tablet PO (07:47)
[2018-11-23 07:56] LABS: Absolute Lymphocyte Count 1.66 X10^3/ul (0.83-4.51); Absolute Neutrophil Count 5.8 X10^3/uL (2.0-7.7); Basophil# 0.03 X10^3/uL; Basophil% 0.4 % (0-1); Eosinophils% 1.2 % (0-5); Hematocrit 37.6 % (40-54); Hemoglobin 12.4 g/dl (13.0-16.5); Lymphocyte # 1.66 X10^3/ul (4.0); Mean Corpuscular Hgb 33.4 pg (27.0-32.0); Mean Corpuscular Volume 101.3 fL (80-94); Mean Platelet Vol. 9.7 fl (6.2-12.0); Monocyte# 0.67 X10^3/uL; Monocyte% 8.1 % (0-10); Neutrophil # 5.77 X10^3/uL (2.7-7.7); Neutrophil % 69.7 % (47-70); Platelet Count 184 K/mm3 (150-450); RBC Distribution Width CV 15.5 % (11.6-14.6); Red Blood Count 3.71 M/mm3 (4.6-6.2); White Blood Count 8.3 K/mm3 (4.4-11.0)
[2018-11-23 08:00] LABS: POSITIVE COUNT NO; POSITIVE DIFFERENTIAL NO; POSITIVE MORPHOLOGY NO
[2018-11-23 08:11] LABS: Anion Gap 10 (5-15); BUN 42 mg/dL (7-18); BUN/Creat Ratio 24.6 RATIO (10-20); Calcium,Total 8.9 mg/dL (8.5-10.1); Chloride 100 mmol/L (98-107); Creatinine, Serum 1.71 mg/dL (0.70-1.30); EST Glomerular Filtration Rate 41 mL/min (>60); Est Glom Filt Rate - Afr Amer 50 mL/min (>60); Estimated Creatinine Clearance 33.29 ml/min; Glucose 113 mg/dL (74-106); Potassium 4.3 mmol/L (3.5-5.1); Sodium Level 136 mmol/L (136-145)
[2018-11-23] MEDS: Tuberculin,Purif.prot.deriv. 50 TU/ML Vial 5 ML ID (11:02)
[2018-11-23 15:19] VITALS: BP 114/69; PULSE 80; RESP 18; TEMP 36.1; O2SAT 98
[2018-11-23 20:04] VITALS: PULSE 80; O2SAT 97
[2018-11-23] MEDS: Atorvastatin Calcium 10 MG Tablet PO (21:12)
[2018-11-24] MEDS: Glucerna Shake 120 ML LIQUID PO ×4 (04:51→22:21)
[2018-11-24] MEDS: Menthol/Lanolin/Calamine/Znox 113 GM Tube 1 APPLIC TOPICAL ×2 (04:51→18:14)
[2018-11-24] MEDS: SACUBITRIL/VALSARTAN 24/26 MG TABLET 1 EACH PO ×2 (04:53→18:14)
[2018-11-24] MEDS: Enoxaparin 30 MG/0.3 ML Syringe SC (04:53)
[2018-11-24] MEDS: Bumetanide 0.5 MG Tablet 1 MG PO ×2 (04:53→18:14)
[2018-11-24] MEDS: levETIRAcetam 1,000 MG Tablet 1000 MG PO ×2 (04:53→18:14)
[2018-11-24] MEDS: Lactulose 20 GM/30 ML UDC PO (04:53)
[2018-11-24] MEDS: Mexiletine 150 MG Capsule PO ×3 (04:54→22:21)
[2018-11-24] MEDS: Ranolazine 500 MG Tablet 1000 MG PO ×2 (04:54→18:13)
[2018-11-24] MEDS: Pramipexole Di-HCl 1 MG Tablet PO ×2 (04:54→18:16)
[2018-11-24] MEDS: Levothyroxine 50 MCG Tablet PO (04:54)
[2018-11-24] MEDS: LINAGLIPTIN 5 MG TABLET PO (04:55)
[2018-11-24] MEDS: rifAXIMin 550 MG Tablet PO ×2 (04:55→18:13)
[2018-11-24 07:01] LABS: Bedside Glucose 114 mg/dL (70-110)
[2018-11-24 07:13] VITALS: BP 118/70; PULSE 76
[2018-11-24] MEDS: Aspirin E.C. 81 MG Tablet PO (07:13)
[2018-11-24] MEDS: Metoprolol(XL)Succ 25 MG Tablet PO (07:13)
[2018-11-24] MEDS: Magnesium Oxide 400 MG Tablet PO (07:13)
[2018-11-24 15:40] VITALS: BP 98/50; PULSE 80; RESP 18; TEMP 36.2; O2SAT 97
[2018-11-24] MEDS: Atorvastatin Calcium 10 MG Tablet PO (22:21)
[2018-11-25] MEDS: Glucerna Shake 120 ML LIQUID PO ×4 (04:44→22:09)
[2018-11-25 04:45] VITALS: BP 119/70; PULSE 80
[2018-11-25] MEDS: SACUBITRIL/VALSARTAN 24/26 MG TABLET 1 EACH PO ×2 (04:45→17:32)
[2018-11-25] MEDS: LINAGLIPTIN 5 MG TABLET PO (04:45)
[2018-11-25] MEDS: Pramipexole Di-HCl 1 MG Tablet PO ×2 (04:45→17:33)
[2018-11-25] MEDS: levETIRAcetam 1,000 MG Tablet 1000 MG PO ×2 (04:45→17:33)
[2018-11-25] MEDS: Ranolazine 500 MG Tablet 1000 MG PO ×2 (04:45→17:33)
[2018-11-25] MEDS: Levothyroxine 50 MCG Tablet PO (04:45)
[2018-11-25] MEDS: Metoprolol(XL)Succ 25 MG Tablet PO (04:45)
[2018-11-25] MEDS: Bumetanide 0.5 MG Tablet 1 MG PO ×2 (04:45→17:32)
[2018-11-25] MEDS: Mexiletine 150 MG Capsule PO ×3 (04:45→22:11)
[2018-11-25] MEDS: rifAXIMin 550 MG Tablet PO ×2 (04:46→17:34)
[2018-11-25] MEDS: Lactulose 20 GM/30 ML UDC PO (04:46)
[2018-11-25] MEDS: Menthol/Lanolin/Calamine/Znox 113 GM Tube 1 APPLIC TOPICAL ×2 (04:46→17:32)
[2018-11-25] MEDS: Enoxaparin 30 MG/0.3 ML Syringe SC (04:48)
[2018-11-25 06:45] LABS: Bedside Glucose 144 mg/dL (70-110)
[2018-11-25] MEDS: Aspirin E.C. 81 MG Tablet PO (07:44)
[2018-11-25] MEDS: Magnesium Oxide 400 MG Tablet PO (07:44)
--- NOTE | 2018-11-25 10:57 | CASEMGMT ---
Social Work Palliative Care came and met with resident and resident spouse. Resident signing paperwork for Palliative Care. SAIMA Lal
--- NOTE | 2018-11-25 14:10 | CASEMGMT ---
Insurance Clinical information sent. Pending continued stay approval at this time. Auth#[id number] SAIMA Lal
--- NOTE | 2018-11-25 14:58 | NURSING ---
WOUND PHOTO: BUTTOCKS
[2018-11-25 15:10] VITALS: BP 117/69; PULSE 82; RESP 20; TEMP 36.5; O2SAT 98
[2018-11-25] MEDS: Atorvastatin Calcium 10 MG Tablet PO (22:10)
[2018-11-26] MEDS: SACUBITRIL/VALSARTAN 24/26 MG TABLET 1 EACH PO ×2 (05:56→17:36)
[2018-11-26] MEDS: Bumetanide 0.5 MG Tablet 1 MG PO ×2 (05:56→17:36)
[2018-11-26] MEDS: Lactulose 20 GM/30 ML UDC PO (05:56)
[2018-11-26] MEDS: Mexiletine 150 MG Capsule PO ×3 (05:56→22:15)
[2018-11-26] MEDS: levETIRAcetam 1,000 MG Tablet 1000 MG PO ×2 (05:56→17:36)
[2018-11-26] MEDS: Levothyroxine 50 MCG Tablet PO (05:56)
[2018-11-26 05:57] VITALS: BP 127/58; PULSE 79
[2018-11-26] MEDS: Pramipexole Di-HCl 1 MG Tablet PO ×2 (05:57→17:35)
[2018-11-26] MEDS: Metoprolol(XL)Succ 25 MG Tablet PO (05:57)
[2018-11-26] MEDS: Ranolazine 500 MG Tablet 1000 MG PO ×2 (05:57→17:35)
[2018-11-26] MEDS: LINAGLIPTIN 5 MG TABLET PO (05:57)
[2018-11-26] MEDS: rifAXIMin 550 MG Tablet PO ×2 (05:57→17:35)
[2018-11-26] MEDS: Enoxaparin 30 MG/0.3 ML Syringe SC (05:57)
[2018-11-26] MEDS: Glucerna Shake 120 ML LIQUID PO ×4 (05:57→22:15)
[2018-11-26] MEDS: Menthol/Lanolin/Calamine/Znox 113 GM Tube 1 APPLIC TOPICAL ×2 (06:03→15:15)
[2018-11-26 07:11] LABS: Bedside Glucose 122 mg/dL (70-110)
[2018-11-26] MEDS: Magnesium Oxide 400 MG Tablet PO (08:03)
[2018-11-26] MEDS: Aspirin E.C. 81 MG Tablet PO (08:03)
--- NOTE | 2018-11-26 10:55 | CASEMGMT ---
Insurance Continued stay denied with last cover day begin 11/28/18 and resident to discharge or financial responsibility to begin on 11/29/18. Auth#[id number] SAIMA Lal
--- NOTE | 2018-11-26 12:49 | CASEMGMT ---
Reviewed and approved LAST [employer] student MDS documentation. SAIMA Lal
--- NOTE | 2018-11-26 12:55 | CASEMGMT ---
Addendum entered by Shonna Monk 11/26/18 13:16: Also, resident provided with information about appeal process. Resident has not initiated appeal at this time and wants to speak with spouse first. Social work to continue to follow. Original Note: Addendum entered by Shonna Monk 11/26/18 13:15: Reviewed and approved social work student documentation. Of note: Proposed discharge is: 11/29/18 with plan to discharge to home with spouse and home health care. Freeman RODRÍGUEZ MSW Original Note: Social Work Social work student spoke with patient in room about proposed discharge date. Explained the last covered day being 11/28 with a discharge on 11/29. Patient voicing to wanting to appeal the discharge date. Patient is going to talk with today. Talked with patient about discharge plan in the event he does not win the appeal. Patient will return home with . The team is recommending home PT, OT, and nursing and DME: walker. Patient is agreeable to home therapy with the [facility] and states already owning a walker. Contacted and spoke with Ana Cristina, from the [facility] and set up home therapy. [facility] Second will continue to follow. Proposed discharge date: 11/29 Pending- appeal Discharge plan: Home with spouse Rhys Wheeler social work student
[2018-11-26 15:18] VITALS: BP 97/60; PULSE 80; RESP 18; TEMP 35.8; O2SAT 98
--- NOTE | 2018-11-26 15:59 | CASEMGMT ---
Social Work Spoke with resident and resident spouse in room. Resident is confirming to plan to initiate appeal and family is currently contacting [facility]. Resident also reporting to have a rollaider at home but not a front wheeled walker. Therapy recommending for resident to have a front wheeled walker at time of discharge. Resident is agreeable to recommendation and requesting for walker to be set up through [employer], in the event that the appeal is lost. Support given. Will fax orders to [facility] when obtained. Proposed discharge date: 11/29/18 pending appeal. PLAN: Discharge to home with spouse and home health care, pending appeal. Freeman RODRÍGUEZ, COMMERCIAL CONSTRUCTION ESTIMATOR
--- NOTE | 2018-11-26 17:04 | CASEMGMT ---
Social Work Resident Case I.D. Number for appeal is: [id number]. Processing appeal at this time. SAIMA Lal
[2018-11-26] MEDS: Atorvastatin Calcium 10 MG Tablet PO (22:15)
--- NOTE | 2018-11-26 22:15 | DCINST_ITS ---
- Discharge Diagnoses Current Active Problems: Current Active and Chronic Problems (Last Reviewed 11/04/18 @ 15:55 by Ana Cristina Cobos) Acute delirium (Acute) Hepatic encephalopathy (Acute) Cirrhosis of liver (Chronic) Acute on chronic kidney failure (Acute) Hyperammonemia (Acute) Ventricular tachycardia (Chronic) Diabetes mellitus (Chronic) Seizure disorder (Chronic) Atrial fibrillation (Chronic) You will use the following diet at home:: No restrictions, Regular Your food should be the consistency of: Regular Your liquids should be the consistency of: Regular/Thin Discharge Activity: Return to Normal Activity, May Shower, Use Walker May resume sexual activity in: No Restrictions Weight Bearing Status: Weight bearing as tolerated Call your doctor if you observe: Fever of 101 or Higher, Inability to urinate, Inability to have a bowel movement, Shortness of breath, Chest pain, Uncontrolled pain Allergies/Adverse Reactions: Allergies amiodarone Allergy (Verified 11/13/18 01:51) dizziness meperidine [From Demerol] Allergy (Verified 11/12/18 20:50) Low blood pressure spironolactone Allergy (Verified 11/12/18 20:50) Nausea simvastatin Adverse Reaction (Mild, Verified 11/12/18 20:50) Myalgias Medications to take at Discharge Aspirin [Aspir 81] 81 mg PO DAILY 11/12/18 Atorvastatin Calcium [Lipitor] 10 mg PO DAILY 11/12/18 Bumetanide [Bumex] 1 mg PO BID 11/12/18 Levetiracetam [Keppra] 1,000 mg PO BID 11/12/18 Levothyroxine [Synthroid] 50 mcg PO DAILY 11/12/18 Magnesium Oxide [Mag-Ox 400] 400 mg PO DAILY 11/12/18 Metoprolol Succinate [Toprol Xl] 25 mg PO DAILY 11/12/18 Mexiletine [Mexitil] 150 mg PO Q8H 11/12/18 Nitroglycerin [Nitrostat] 0.4 mg SL PRN PRN 11/12/18 Potassium Chloride [Klor-Con] 20 meq PO DAILY 11/12/18 Ranolazine [Ranexa] 1,000 mg PO BID 11/12/18 Ropinirole HCl [Requip] 2 mg PO BID 11/12/18 Sitagliptin Phosphate [Januvia] 50 mg PO DAILY 11/12/18 Acetaminophen [Tylenol Tablet] 650 mg PO Q6H PRN PRN tablet 11/26/18 Lactulose [Chronulac] 20 gm PO DAILY #900 ml 11/26/18 Menthol/Lanolin/Calamine/Znox [Calmoseptine Ointment] 1 applic TOPICAL BID tube 11/26/18 Mineral Oil/Petrolatum,White [Eucerin] 1 applic TOPICAL 0600,2200 jar 11/26/18 Nutritional Supplement [Chase - ORANGE FLAVOR] 1 packet PO BIDCM #60 packet 11/26/18 Rifaximin [Xifaxan] 550 mg PO BID #60 tab 11/26/18 Sacubitril/Valsartan 24/26 mg [Entresto 24 mg-26 mg Tablet] 1 ea PO BID #28 tab 11/26/18 The following prescriptions were given: Lactulose [Chronulac] 20 gm PO DAILY #900 ml Nutritional Supplement [Chase - [place]ANGE FLAVOR] 1 packet PO BIDCM #60 packet Rifaximin [Xifaxan] 550 mg PO BID #60 tab Sacubitril/Valsartan 24/26 mg [Entresto 24 mg-26 mg Tablet] 1 ea PO BID #28 tab Primary Care Physician: Anabella Lomax MD [Primary Care Provider] - Please follow up with your Primary Care Physician in: 1 week. Test Results: Test results from this visit will be discussed in further detail at your follow- up appointment, if applicable. Please Follow Up With: Anabella Lomax MD When: after discharge Proposed Discharge Date: 11/29/18
--- NOTE | 2018-11-26 22:15 | PCM.DC.SUM ---
Discharge Date and Diagnosis - Problem List Patient Problems: Active and Suspected Problems (Last Reviewed 11/04/18 @ 15:55 by Ana Cristina Cobos) Acute delirium (Acute) Hepatic encephalopathy (Acute) Acute on chronic kidney failure (Acute) Hyperammonemia (Acute) Date of Admission: 11/15/18 Date of Discharge: 11/29/18 - Primary Discharge Diagnosis Active and Suspected Problems (Last Reviewed 11/04/18 @ 15:55 by Ana Cristina Cobos) Acute delirium (Acute) Hepatic encephalopathy (Acute) Acute on chronic kidney failure (Acute) Hyperammonemia (Acute) - Secondary Discharge Diagnosis Chronic Problems (Last Reviewed 11/04/18 @ 15:55 by Ana Cristina Cobos) Cirrhosis of liver (Chronic) Ventricular tachycardia (Chronic) Diabetes mellitus (Chronic) Seizure disorder (Chronic) Atrial fibrillation (Chronic) CKD (chronic kidney disease) stage 4, GFR 15-29 ml/min (Chronic) Pacemaker (Chronic) HLD (hyperlipidemia) (Chronic) Non-ST elevation (NSTEMI) myocardial infarction (Chronic) Angina pectoris (Chronic) CAD (coronary artery disease) (Chronic) Edema (Chronic) Dyspnea (Chronic) Renal disease (Chronic) Fatigue (Chronic) XOCHITL (obstructive sleep apnea) (Chronic) Diabetes mellitus type 2, noninsulin dependent (Chronic) Old myocardial infarction (Chronic) Long-term use of high-risk medication (Chronic) Chronic renal failure (Chronic) Cardiac murmur (Chronic) Hypokalemia (Chronic) Atherosclerotic heart disease of [place] coronary artery without angina pectoris (Chronic) CABG 1988; Reoperation CABG x3 SVG to LAD, SVG to Rt PDA, Radial artery to OM-2 10/08/02; VT ablation @[facility] 01/03/17 [facility] 03/10/2016 Ventricular tachycardia (paroxysmal) (Chronic) ICD (implantable cardioverter-defibrillator) in place (Chronic ~11/2001) Implant 12/10/2001 ICD replacement 06/10/2009, 06/05/2014, Systolic CHF, chronic (Chronic) Cardiomyopathy, ischemic (Chronic) Subdural hematoma (Chronic) CKD (chronic kidney disease), stage II (Chronic) Type II diabetes mellitus, uncontrolled (Chronic) Esophageal reflux (Chronic) HLD (hyperlipidemia) (Chronic) HTN (hypertension) (Chronic) Hypothyroidism (Chronic) Sleep apnea (Chronic) Hospital Course and Treatment Imaging Results: 11/15/18 16:34 Diet: Cardiac/Low Cholesterol Diet Comments: low NA, CHO, 1800 calorie restriction Clinical Impression(s) from Imaging Studies Liver Ultrasound 11/16/18 09:00 IMPRESSION: Heterogeneous liver echotexture with lobulation. This could represent cirrhosis. Status post cholecystectomy. Mildly increased echogenicity of the pancreas, nonspecific. Electronically Signed: Gene AraizaDO riaz at 13:49 EST Tel , Service support , Labs (Last 48 Hours) 11/25/18 11/26/18 06:23 07:06 POC Glucose 144 H 122 H Operations: None Procedures: None Summary of Care Provided: The patient is a 78 year old Male with below past medical history hospitalized for acute delirium secondary to hepatic encephalopathy, complicated by weakness, dehydration, acute on chronic kidney failure, admitted to TCU with debility, here for rehabilitation, strengthening, prior to discharge home with spouse. On TCU, resident started on Entresto 24/26MG twice daily for chronic systolic heart failure, hypotension prevented by stopping Isosorbide, Hydralazine. Recommend increasing Entresto to 49/51MG twice daily on 12/05/2018, then 97/103MG twice daily 2 weeks later. Monitor CBCD, BMP during Entresto titration. Recommend stopping Bumex if resident develops hypotension. Discharge home with spouse, and home health care, pending appeal. Patient Problems: Active and Suspected Problems (Last Reviewed 11/04/18 @ 15:55 by Ana Cristina Cobos) Acute delirium (Acute) Hepatic encephalopathy (Acute) Acute on chronic kidney failure (Acute) Hyperammonemia (Acute) - Physical Exam Vital Signs Temp Pulse Resp BP Pulse Ox 96.4 F L 80 18 97/60 98 11/26/18 15:18 11/26/18 15:18 11/26/18 15:18 11/26/18 15:18 11/26/18 15:18 Oxygen Delivery Method Room Air Weight: 86.324 kg Body Mass Index (BMI) 29.8 Finger Stick Blood Glucose 249 Intake and Output for Last 24 Hours 11/24/18 11/25/18 11/26/18 23:59 23:59 23:59 Intake Total 720 / 720 1120 / 1120 480 / 480 Output Total 350 / 350 900 / 900 Balance 370 / 370 220 / 220 480 / 480 POC Glucose 11/26/18 07:06 POC Glucose 122 H Discharge Diet: No Restrictions Discharge Activity: Return to Normal Activity, May Shower, Use Walker May resume sexual activity in: No Restrictions Weight Bearing Status: Weight bearing as tolerated Call your doctor if you observe: Fever of 101 or Higher, Inability to urinate, Inability to have a bowel movement, Shortness of breath, Chest pain, Uncontrolled pain Home Medications: Medications to take at Discharge Aspirin [Aspir 81] 81 mg PO DAILY 11/12/18 Atorvastatin Calcium [Lipitor] 10 mg PO DAILY 11/12/18 Bumetanide [Bumex] 1 mg PO BID 11/12/18 Levetiracetam [Keppra] 1,000 mg PO BID 11/12/18 Levothyroxine [Synthroid] 50 mcg PO DAILY 11/12/18 Magnesium Oxide [Mag-Ox 400] 400 mg PO DAILY 11/12/18 Metoprolol Succinate [Toprol Xl] 25 mg PO DAILY 11/12/18 Mexiletine [Mexitil] 150 mg PO Q8H 11/12/18 Nitroglycerin [Nitrostat] 0.4 mg SL PRN PRN 11/12/18 Potassium Chloride [Klor-Con] 20 meq PO DAILY 11/12/18 Ranolazine [Ranexa] 1,000 mg PO BID 11/12/18 Ropinirole HCl [Requip] 2 mg PO BID 11/12/18 Sitagliptin Phosphate [Januvia] 50 mg PO DAILY 11/12/18 Acetaminophen [Tylenol Tablet] 650 mg PO Q6H PRN PRN tablet 11/26/18 Lactulose [Chronulac] 20 gm PO DAILY #900 ml 11/26/18 Menthol/Lanolin/Calamine/Znox [Calmoseptine Ointment] 1 applic TOPICAL BID tube 11/26/18 Mineral Oil/Petrolatum,White [Eucerin] 1 applic TOPICAL 0600,2200 jar 11/26/18 Nutritional Supplement [Chase - ORANGE FLAVOR] 1 packet PO BIDCM #60 packet 11/26/18 Rifaximin [Xifaxan] 550 mg PO BID #60 tab 11/26/18 Sacubitril/Valsartan 24/26 mg [Entresto 24 mg-26 mg Tablet] 1 ea PO BID #28 tab 11/26/18 Following Prescrptions Were Given to Patient: Lactulose [Chronulac] 20 gm PO DAILY #900 ml Nutritional Supplement [Chase - ORANGE FLAVOR] 1 packet PO BIDCM #60 packet Rifaximin [Xifaxan] 550 mg PO BID #60 tab Sacubitril/Valsartan 24/26 mg [Entresto 24 mg-26 mg Tablet] 1 ea PO BID #28 tab Primary Care Physician: Anabella Lomax MD [Primary Care Provider] - Please follow up with your Primary Care Physician in: 1 week. Please Follow Up With: Anabella Lomax MD When: after discharge Disposition: Home with Home Health Minutes spent on discharge:: 35 Patient Condition:: Stable Medical Necessity - Tobacco Use Smoking Status: Former smoker Tobacco Use: Non-smoker Meaningful Use Info Meaningful Use Diagnoses (Choose all that apply): None applicable
--- NOTE | 2018-11-26 22:19 | DS.PCM_ITS ---
Discharge Date and Diagnosis - Problem List Patient Problems: Active and Suspected Problems (Last Reviewed 11/04/18 @ 15:55 by Ana Cristina Cobos) Acute delirium (Acute) Hepatic encephalopathy (Acute) Acute on chronic kidney failure (Acute) Hyperammonemia (Acute) Date of Admission: 11/15/18 Date of Discharge: 11/29/18 - Primary Discharge Diagnosis Active and Suspected Problems (Last Reviewed 11/04/18 @ 15:55 by Ana Cristina Rosas t) Acute delirium (Acute) Hepatic encephalopathy (Acute) Acute on chronic kidney failure (Acute) Hyperammonemia (Acute) - Secondary Discharge Diagnosis Chronic Problems (Last Reviewed 11/04/18 @ 15:55 by Ana Cristina Cobos) Cirrhosis of liver (Chronic) Ventricular tachycardia (Chronic) Diabetes mellitus (Chronic) Seizure disorder (Chronic) Atrial fibrillation (Chronic) CKD (chronic kidney disease) stage 4, GFR 15-29 ml/min (Chronic) Pacemaker (Chronic) HLD (hyperlipidemia) (Chronic) Non-ST elevation (NSTEMI) myocardial infarction (Chronic) Angina pectoris (Chronic) CAD (coronary artery disease) (Chronic) Edema (Chronic) Dyspnea (Chronic) Renal disease (Chronic) Fatigue (Chronic) XOCHITL (obstructive sleep apnea) (Chronic) Diabetes mellitus type 2, noninsulin dependent (Chronic) Old myocardial infarction (Chronic) Long-term use of high-risk medication (Chronic) Chronic renal failure (Chronic) Cardiac murmur (Chronic) Hypokalemia (Chronic) Atherosclerotic heart disease of [place] coronary artery without angina pectoris (Chronic) CABG 1988; Reoperation CABG x3 SVG to LAD, SVG to Rt PDA, Radial artery to OM-2 10/08/02; [facility] ablation [facility] 01[facility]17 [facility] 03/10/2016 Ventricular tachycardia (paroxysmal) (Chronic) ICD (implantable cardioverter-defibrillator) in place (Chronic ~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) Implant 12/10/2001 ICD replacement 06/10/2009, 06/05/2014, Systolic CHF, chronic (Chronic) Cardiomyopathy, ischemic (Chronic) Subdural hematoma (Chronic) CKD (chronic kidney disease), stage II (Chronic) Type II diabetes mellitus, uncontrolled (Chronic) Esophageal reflux (Chronic) HLD (hyperlipidemia) (Chronic) HTN (hypertension) (Chronic) Hypothyroidism (Chronic) Sleep apnea (Chronic) Hospital Course and Treatment Imaging Results: 11/15/18 16:34 Diet: Cardiac/Low Cholesterol Diet Comments: low NA, CHO, 1800 calorie restriction Clinical Impression(s) from Imaging Studies Liver Ultrasound 11/16/18 09:00 IMPRESSION: Heterogeneous liver echotexture with lobulation. This could represent cirrhosis. Status post cholecystectomy. Mildly increased echogenicity of the pancreas, nonspecific. Electronically Signed: Gene AraizaDO riaz at 13:49 EST Tel , Service support , Labs (Last 48 Hours) 11/25/18 11/26/18 06:23 07:06 POC Glucose 144 H 122 H Operations: None Procedures: None Summary of Care Provided: The patient is a 78 year old Male with below past medical history hospitalized for acute delirium secondary to hepatic encephalopathy, complicated by weakness, dehydration, acute on chronic kidney failure, admitted to TCU with debility, here for rehabilitation, strengthening, prior to discharge home with spouse. On TCU, resident started on Entresto 24/26MG twice daily for chronic systolic heart failure, hypotension prevented by stopping Isosorbide, Hydralazine. Recommend increasing Entresto to 49/51MG twice daily on 12/05/2018, then 97/103MG twice daily 2 weeks later. Monitor CBCD, BMP during Entresto titration. Recommend stopping Bumex if resident develops hypotension. Discharge home with spouse, and home health care, pending appeal. Patient Problems: Active and Suspected Problems (Last Reviewed 11/04/18 @ 15:55 by Ana Cristina Cobos) Acute delirium (Acute) Hepatic encephalopathy (Acute) Acute on chronic kidney failure (Acute) Hyperammonemia (Acute) - Physical Exam Vital Signs Temp Pulse Resp BP Pulse Ox 96.4 F L 80 18 97/60 98 11/26/18 15:18 11/26/18 15:18 11/26/18 15:18 11/26/18 15:18 11/26/18 15:18 Oxygen Delivery Method Room Air Weight: 86.324 kg Body Mass Index (BMI) 29.8 Finger Stick Blood Glucose 249 Intake and Output for Last 24 Hours 11/24/18 11/25/18 11/26/18 23:59 23:59 23:59 Intake Total 720 / 720 1120 / 1120 480 / 480 Output Total 350 / 350 900 / 900 Balance 370 / 370 220 / 220 480 / 480 POC Glucose 11/26/18 07:06 POC Glucose 122 H Discharge Diet: No Restrictions Discharge Activity: Return to Normal Activity, May Shower, Use Walker May resume sexual activity in: No Restrictions Weight Bearing Status: Weight bearing as tolerated Call your doctor if you observe: Fever of 101 or Higher, Inability to urinate, Inability to have a bowel movement, Shortness of breath, Chest pain, Uncontrolled pain Home Medications: Medications to take at Discharge Aspirin [Aspir 81] 81 mg PO DAILY 11/12/18 Atorvastatin Calcium [Lipitor] 10 mg PO DAILY 11/12/18 Bumetanide [Bumex] 1 mg PO BID 11/12/18 Levetiracetam [Keppra] 1,000 mg PO BID 11/12/18 Levothyroxine [Synthroid] 50 mcg PO DAILY 11/12/18 Magnesium Oxide [Mag-Ox 400] 400 mg PO DAILY 11/12/18 Metoprolol Succinate [Toprol Xl] 25 mg PO DAILY 11/12/18 Mexiletine [Mexitil] 150 mg PO Q8H 11/12/18 Nitroglycerin [Nitrostat] 0.4 mg SL PRN PRN 11/12/18 Potassium Chloride [Klor-Con] 20 meq PO DAILY 11/12/18 Ranolazine [Ranexa] 1,000 mg PO BID 11/12/18 Ropinirole HCl [Requip] 2 mg PO BID 11/12/18 Sitagliptin Phosphate [Januvia] 50 mg PO DAILY 11/12/18 Acetaminophen [Tylenol Tablet] 650 mg PO Q6H PRN PRN tablet 11/26/18 Lactulose [Chronulac] 20 gm PO DAILY #900 ml 11/26/18 Menthol/Lanolin/Calamine/Znox [Calmoseptine Ointment] 1 applic TOPICAL BID tube 11/26/18 Mineral Oil/Petrolatum,White [Eucerin] 1 applic TOPICAL 0600,2200 jar 11/26/18 Nutritional Supplement [Chase - ORANGE FLAVOR] 1 packet PO BIDCM #60 packet 11/26/18 Rifaximin [Xifaxan] 550 mg PO BID #60 tab 11/26/18 Sacubitril/Valsartan 24/26 mg [Entresto 24 mg-26 mg Tablet] 1 ea PO BID #28 tab 11/26/18 Following Prescrptions Were Given to Patient: Lactulose [Chronulac] 20 gm PO DAILY #900 ml Nutritional Supplement [Chase - ORANGE FLAVOR] 1 packet PO BIDCM #60 packet Rifaximin [Xifaxan] 550 mg PO BID #60 tab Sacubitril/Valsartan 24/26 mg [Entresto 24 mg-26 mg Tablet] 1 ea PO BID #28 tab Primary Care Physician: Anabella Lomax MD [Primary Care Provider] - Please follow up with your Primary Care Physician in: 1 week. Please Follow Up With: Anabella Lomax MD When: after discharge Disposition: Home with Home Health Minutes spent on discharge:: 35 Patient Condition:: Stable Medical Necessity - Tobacco Use Smoking Status: Former smoker Tobacco Use: Non-smoker Meaningful Use Info Meaningful Use Diagnoses (Choose all that apply): None applicable
--- NOTE | 2018-11-26 22:20 | HHNOTE_ITS ---
Home Health Note - Plan Overview of reason of hospitalization: The patient is a 78 year old Male with below past medical history hospitalized for acute delirium secondary to hepatic encephalopathy, complicated by weakness, dehydration, acute on chronic kidney failure, admitted to TCU with debility, here for rehabilitation, strengthening, prior to discharge home with spouse. On TCU, resident started on Entresto 24/26MG twice daily for chronic systolic heart failure, hypotension prevented by stopping Isosorbide, Hydralazine. Recommend increasing Entresto to 49/51MG twice daily on 12/05/2018, then 97/103MG twice daily 2 weeks later. Monitor CBCD, BMP during Entresto titration. Recommend stopping Bumex if resident develops hypotension. Discharge home with spouse, and home health care, pending appeal. Problems: Patient was seen for (Last Reviewed 11/04/18 @ 15:55 by Ana Cristina Cobos) Acute delirium (Acute) Hepatic encephalopathy (Acute) Cirrhosis of liver (Chronic) Acute on chronic kidney failure (Acute) Hyperammonemia (Acute) Ventricular tachycardia (Chronic) Diabetes mellitus (Chronic) Seizure disorder (Chronic) Atrial fibrillation (Chronic) Complete List of Medical Problems (Last Reviewed 11/04/18 @ 15:55 by Ana Cristina Cobos) Acute encephalopathy (Acute) Dehydration (Acute) Acute delirium (Acute) Hepatic encephalopathy (Acute) Cirrhosis of liver (Chronic) Acute on chronic kidney failure (Acute) Hyperammonemia (Acute) Ventricular tachycardia (Chronic) Diabetes mellitus (Chronic) Seizure disorder (Chronic) Atrial fibrillation (Chronic) Epiploic appendagitis (Acute) CKD (chronic kidney disease) stage 4, GFR 15-29 ml/min (Chronic) Generalized weakness (Acute) Episode of syncope (Acute) Pacemaker (Chronic) Bronchitis (Acute) HLD (hyperlipidemia) (Chronic) Non-ST elevation (NSTEMI) myocardial infarction (Chronic) Angina pectoris (Chronic) CAD (coronary artery disease) (Chronic) Edema (Chronic) Dyspnea (Chronic) Renal disease (Chronic) Fatigue (Chronic) XOCHITL (obstructive sleep apnea) (Chronic) Diabetes mellitus type 2, noninsulin dependent (Chronic) Old myocardial infarction (Chronic) Long-term use of high-risk medication (Chronic) Chronic renal failure (Chronic) Cardiac murmur (Chronic) Hypokalemia (Chronic) Atherosclerotic heart disease of [place] coronary artery without angina pectoris (Chronic) Ventricular tachycardia (paroxysmal) (Chronic) ICD (implantable cardioverter-defibrillator) in place (Chronic ~11/2001) Systolic CHF, chronic (Chronic) Cardiomyopathy, ischemic (Chronic) Subdural hematoma (Chronic) CKD (chronic kidney disease), stage II (Chronic) Type II diabetes mellitus, uncontrolled (Chronic) Esophageal reflux (Chronic) HLD (hyperlipidemia) (Chronic) HTN (hypertension) (Chronic) Hypothyroidism (Chronic) Sleep apnea (Chronic) - Requirements and Reasons Disciplines Needed/Ordered: Shelter, Physical Therapy Reason for Disciplines: Disease Specific Monitoring/education, Medication Management/Knowledge Deficit, Gait Training, Stair Training, Fall Prevention, Home Safety/Equipment Instruction, Balance and/or Posture Training, Transfer Training Related To: Limited/Poor Endurance, Shortness of Breath with Activity, Unsteady Gait/Balance, Fall Risk Patient is unable to leave the home: Without Aid of Supportive Devices (crutches, cane, wheelchair, walker), Without the assistance of another person - Additional Disciplines Additional Disciplines Needed/Ordered: Occupational Therapy
[2018-11-27 05:39] VITALS: BP 121/74; PULSE 79
[2018-11-27] MEDS: Pramipexole Di-HCl 1 MG Tablet PO ×2 (05:39→16:44)
[2018-11-27] MEDS: LINAGLIPTIN 5 MG TABLET PO (05:39)
[2018-11-27] MEDS: Bumetanide 0.5 MG Tablet 1 MG PO ×2 (05:39→16:44)
[2018-11-27] MEDS: levETIRAcetam 1,000 MG Tablet 1000 MG PO ×2 (05:39→16:44)
[2018-11-27] MEDS: Lactulose 20 GM/30 ML UDC PO (05:39)
[2018-11-27] MEDS: SACUBITRIL/VALSARTAN 24/26 MG TABLET 1 EACH PO ×2 (05:39→16:45)
[2018-11-27] MEDS: Ranolazine 500 MG Tablet 1000 MG PO ×2 (05:39→16:44)
[2018-11-27] MEDS: Metoprolol(XL)Succ 25 MG Tablet PO (05:39)
[2018-11-27] MEDS: Levothyroxine 50 MCG Tablet PO (05:39)
[2018-11-27] MEDS: Mexiletine 150 MG Capsule PO ×3 (05:39→21:10)
[2018-11-27] MEDS: Menthol/Lanolin/Calamine/Znox 113 GM Tube 1 APPLIC TOPICAL ×2 (05:40→16:48)
[2018-11-27] MEDS: Glucerna Shake 120 ML LIQUID PO ×4 (05:40→21:09)
[2018-11-27] MEDS: rifAXIMin 550 MG Tablet PO ×2 (05:40→16:45)
[2018-11-27] MEDS: Enoxaparin 30 MG/0.3 ML Syringe SC (05:41)
[2018-11-27 06:50] LABS: Bedside Glucose 128 mg/dL (70-110)
[2018-11-27] MEDS: Aspirin E.C. 81 MG Tablet PO (07:59)
[2018-11-27] MEDS: Magnesium Oxide 400 MG Tablet PO (07:59)
[2018-11-27 15:48] VITALS: BP 105/60; PULSE 80; RESP 18; TEMP 36.3; O2SAT 96
[2018-11-27] MEDS: Atorvastatin Calcium 10 MG Tablet PO (21:09)
[2018-11-28] MEDS: Glucerna Shake 120 ML LIQUID PO ×4 (04:52→20:37)
[2018-11-28] MEDS: Lactulose 20 GM/30 ML UDC PO (04:52)
[2018-11-28] MEDS: Levothyroxine 50 MCG Tablet PO (04:53)
[2018-11-28] MEDS: Bumetanide 0.5 MG Tablet 1 MG PO ×2 (04:53→17:11)
[2018-11-28] MEDS: SACUBITRIL/VALSARTAN 24/26 MG TABLET 1 EACH PO ×2 (04:53→17:11)
[2018-11-28] MEDS: Ranolazine 500 MG Tablet 1000 MG PO ×2 (04:53→17:11)
[2018-11-28] MEDS: rifAXIMin 550 MG Tablet PO ×2 (04:53→17:11)
[2018-11-28] MEDS: LINAGLIPTIN 5 MG TABLET PO (04:53)
[2018-11-28] MEDS: Pramipexole Di-HCl 1 MG Tablet PO ×2 (04:53→17:11)
[2018-11-28] MEDS: Mexiletine 150 MG Capsule PO ×3 (04:53→20:37)
[2018-11-28] MEDS: Menthol/Lanolin/Calamine/Znox 113 GM Tube 1 APPLIC TOPICAL ×2 (04:54→17:14)
[2018-11-28] MEDS: Enoxaparin 30 MG/0.3 ML Syringe SC (04:55)
[2018-11-28 04:56] VITALS: BP 101/64; PULSE 79
[2018-11-28] MEDS: levETIRAcetam 1,000 MG Tablet 1000 MG PO ×2 (04:56→17:11)
[2018-11-28] MEDS: Metoprolol(XL)Succ 25 MG Tablet PO (04:56)
[2018-11-28 06:50] LABS: Bedside Glucose 116 mg/dL (70-110)
--- NOTE | 2018-11-28 07:52 | MDS.RN ---
Information for the mds was obtained from review of the clinical record, interview of resident, staff, and direct observation of resident's care.
--- NOTE | 2018-11-28 10:22 | CASEMGMT ---
Social Work Continue to be pending appeal. This social work faculty member did fax order for wheeled walker to [facility]. [facility] to deliver walker to resident room prior to resident discharge, if appeal is lost. Proposed discharge date: 11/29/18 pending appeal. PLAN: Discharge to home with spouse and home health care pending appeal. SAIMA Lal
[2018-11-28] MEDS: Aspirin E.C. 81 MG Tablet PO (11:02)
[2018-11-28] MEDS: Magnesium Oxide 400 MG Tablet PO (11:03)
--- NOTE | 2018-11-28 13:26 | CASEMGMT ---
Social Work Telephone call from lucio Cali overturned. Telephone call from Isaac Rouse is not issuing a last cover day of 11/30/18 with discharge or last cover day being 12/01/18. Will follow up with resident in room. SAIMA Lal
--- NOTE | 2018-11-28 14:55 | CASEMGMT ---
Social Work Spoke with resident and resident family in room. This oncology social worker communicating that Last cover day by insurance is now 11/30/18 with resident to discharge or financial responsibility to begin on 12/01/18. Resident and resident family voicing understanding and plan for resident to discharge to home with spouse on 12/01/18 with home health care and a walker as planned prior. Resident not wanting to appeal. Resident family to provide transportation home for resident at time of discharge. Support given. Telephone miguel angel to [facility] Ana Cristina REICH. This oncology social worker updating Ana Cristina on discharge date change. Telephone call to Joanna Brewer. This oncology social worker updated Joanna on discharge date change. Proposed discharge date: 12/01/18 PLAN: Discharge to home with spouse and home health care. SAIMA Lal
[2018-11-28 16:00] VITALS: BP 100/58; PULSE 80; RESP 16; TEMP 36.7; O2SAT 95
[2018-11-28] MEDS: Atorvastatin Calcium 10 MG Tablet PO (20:37)
[2018-11-29] MEDS: Ranolazine 500 MG Tablet 1000 MG PO ×2 (05:50→16:46)
[2018-11-29] MEDS: Lactulose 20 GM/30 ML UDC PO (05:50)
[2018-11-29 05:51] VITALS: BP 108/66; PULSE 80
[2018-11-29] MEDS: levETIRAcetam 1,000 MG Tablet 1000 MG PO ×2 (05:51→16:47)
[2018-11-29] MEDS: LINAGLIPTIN 5 MG TABLET PO (05:51)
[2018-11-29] MEDS: SACUBITRIL/VALSARTAN 24/26 MG TABLET 1 EACH PO ×2 (05:51→16:46)
[2018-11-29] MEDS: rifAXIMin 550 MG Tablet PO ×2 (05:51→16:48)
[2018-11-29] MEDS: Levothyroxine 50 MCG Tablet PO (05:51)
[2018-11-29] MEDS: Metoprolol(XL)Succ 25 MG Tablet PO (05:51)
[2018-11-29] MEDS: Pramipexole Di-HCl 1 MG Tablet PO ×2 (05:51→16:47)
[2018-11-29] MEDS: Enoxaparin 30 MG/0.3 ML Syringe SC (05:51)
[2018-11-29] MEDS: Glucerna Shake 120 ML LIQUID PO ×4 (05:52→21:05)
[2018-11-29] MEDS: Menthol/Lanolin/Calamine/Znox 113 GM Tube 1 APPLIC TOPICAL ×2 (05:52→16:46)
[2018-11-29] MEDS: Mexiletine 150 MG Capsule PO ×3 (05:52→21:05)
[2018-11-29] MEDS: Bumetanide 0.5 MG Tablet 1 MG PO ×2 (06:03→16:47)
[2018-11-29 06:50] LABS: Bedside Glucose 115 mg/dL (70-110)
[2018-11-29] MEDS: Aspirin E.C. 81 MG Tablet PO (08:03)
[2018-11-29] MEDS: Magnesium Oxide 400 MG Tablet PO (08:03)
--- NOTE | 2018-11-29 10:15 | CASEMGMT ---
Brief interview for mental status (BIMS) and resident mood interview (PHQ-9) completed on this day. BIMS score 15. PHQ-9 score 11/24
[2018-11-29 15:56] VITALS: BP 114/73; PULSE 87; RESP 20; TEMP 36.5; O2SAT 98
[2018-11-29] MEDS: Atorvastatin Calcium 10 MG Tablet PO (21:05)
[2018-11-30] MEDS: levETIRAcetam 1,000 MG Tablet 1000 MG PO ×2 (06:34→17:01)
[2018-11-30] MEDS: Levothyroxine 50 MCG Tablet PO (06:34)
[2018-11-30] MEDS: Ranolazine 500 MG Tablet 1000 MG PO ×2 (06:34→17:02)
[2018-11-30] MEDS: Glucerna Shake 120 ML LIQUID PO ×4 (06:34→20:10)
[2018-11-30] MEDS: LINAGLIPTIN 5 MG TABLET PO (06:34)
[2018-11-30] MEDS: Lactulose 20 GM/30 ML UDC PO ×2 (06:34→11:13)
[2018-11-30] MEDS: SACUBITRIL/VALSARTAN 24/26 MG TABLET 1 EACH PO ×2 (06:34→17:02)
[2018-11-30] MEDS: Pramipexole Di-HCl 1 MG Tablet PO ×2 (06:34→17:02)
[2018-11-30] MEDS: Enoxaparin 30 MG/0.3 ML Syringe SC (06:35)
[2018-11-30] MEDS: Menthol/Lanolin/Calamine/Znox 113 GM Tube 1 APPLIC TOPICAL ×2 (06:35→17:04)
[2018-11-30] MEDS: Bumetanide 0.5 MG Tablet 1 MG PO ×2 (06:35→17:01)
[2018-11-30] MEDS: Mexiletine 150 MG Capsule PO ×3 (06:35→20:18)
[2018-11-30] MEDS: rifAXIMin 550 MG Tablet PO ×2 (06:35→17:02)
[2018-11-30 06:36] VITALS: PULSE 76
[2018-11-30] MEDS: Metoprolol(XL)Succ 25 MG Tablet PO (06:36)
[2018-11-30 07:11] LABS: Bedside Glucose 127 mg/dL (70-110)
[2018-11-30 07:43] LABS: Absolute Lymphocyte Count 1.65 X10^3/ul (0.83-4.51); Absolute Neutrophil Count 4.8 X10^3/uL (2.0-7.7); Basophil# 0.03 X10^3/uL; Basophil% 0.4 % (0-1); Eosinophil# 0.18 X10^3/uL; Eosinophils% 2.5 % (0-5); Hematocrit 40.2 % (40-54); Lymphocyte # 1.65 X10^3/ul (4.0); Lymphocyte % 23.1 % (19-41); Mean Corp Hgb Conc 32.3 g/gl (32-36); Mean Corpuscular Hgb 33.2 pg (27.0-32.0); Mean Corpuscular Volume 102.6 fL (80-94); Mean Platelet Vol. 10.4 fl (6.2-12.0); Monocyte# 0.46 X10^3/uL; Monocyte% 6.4 % (0-10); Neutrophil # 4.81 X10^3/uL (2.7-7.7); Neutrophil % 67.3 % (47-70); Platelet Count 174 K/mm3 (150-450); RBC Distribution Width CV 15.8 % (11.6-14.6); RBC Distribution Width SD 58.5 fl (35.1-43.9); Red Blood Count 3.92 M/mm3 (4.6-6.2); White Blood Count 7.2 K/mm3 (4.4-11.0)
[2018-11-30 07:47] LABS: POSITIVE COUNT NO; POSITIVE DIFFERENTIAL NO; POSITIVE MORPHOLOGY NO
[2018-11-30] MEDS: Magnesium Oxide 400 MG Tablet PO (08:13)
[2018-11-30] MEDS: Aspirin E.C. 81 MG Tablet PO (08:13)
[2018-11-30 08:23] LABS: Anion Gap 11 (5-15); BUN 41 mg/dL (7-18); BUN/Creat Ratio 25.8 RATIO (10-20); Calcium,Total 8.8 mg/dL (8.5-10.1); Chloride 103 mmol/L (98-107); Creatinine, Serum 1.59 mg/dL (0.70-1.30); EST Glomerular Filtration Rate 45 mL/min (>60); Est Glom Filt Rate - Afr Amer 54 mL/min (>60); Glucose 133 mg/dL (74-106); Potassium 4.4 mmol/L (3.5-5.1); Sodium Level 139 mmol/L (136-145)
--- NOTE | 2018-11-30 10:22 | NURSING ---
Dr. Ray reviewed labs, NO for lactulose x1 now.
[2018-11-30 15:39] VITALS: BP 119/76; PULSE 81; RESP 20; TEMP 36.4; O2SAT 98
[2018-11-30] MEDS: Atorvastatin Calcium 10 MG Tablet PO (20:12)
[2018-12-01] MEDS: Glucerna Shake 120 ML LIQUID PO (05:29)
[2018-12-01] MEDS: Bumetanide 0.5 MG Tablet 1 MG PO (05:29)
[2018-12-01] MEDS: Lactulose 20 GM/30 ML UDC PO (05:29)
[2018-12-01] MEDS: Enoxaparin 30 MG/0.3 ML Syringe SC (05:29)
[2018-12-01] MEDS: Levothyroxine 50 MCG Tablet PO (05:30)
[2018-12-01] MEDS: SACUBITRIL/VALSARTAN 24/26 MG TABLET 1 EACH PO (05:30)
[2018-12-01] MEDS: Pramipexole Di-HCl 1 MG Tablet PO (05:30)
[2018-12-01] MEDS: LINAGLIPTIN 5 MG TABLET PO (05:30)
[2018-12-01] MEDS: rifAXIMin 550 MG Tablet PO (05:30)
[2018-12-01] MEDS: levETIRAcetam 1,000 MG Tablet 1000 MG PO (05:30)
[2018-12-01] MEDS: Ranolazine 500 MG Tablet 1000 MG PO (05:30)
[2018-12-01] MEDS: Mexiletine 150 MG Capsule PO (05:30)
[2018-12-01 05:39] VITALS: BP 104/65; PULSE 80
[2018-12-01] MEDS: Metoprolol(XL)Succ 25 MG Tablet PO (05:39)
[2018-12-01] MEDS: Menthol/Lanolin/Calamine/Znox 113 GM Tube 1 APPLIC TOPICAL (05:44)
[2018-12-01 07:06] LABS: Bedside Glucose 127 mg/dL (70-110)
[2018-12-01] MEDS: Aspirin E.C. 81 MG Tablet PO (07:49)
[2018-12-01] MEDS: Magnesium Oxide 400 MG Tablet PO (07:49)
--- NOTE | 2018-12-01 10:33 | NURSING ---
Dr. Ray notified on ammonia level, NNO. Ensure patient has f/u appt scheduled with PCP.
[2018-12-01 11:23] VITALS: BP 122/70; PULSE 82; RESP 18; TEMP 36.6; O2SAT 98
--- NOTE | 2018-12-02 12:24 | CASEMGMT ---
Insurance Notified insurance of resident discharge on 12/01/18 to home with spouse and home health care. Auth#[id number] Freeman LANDAVERDE, MARCOS
--- NOTE | 2018-12-12 08:09 | MDS.RN ---
Information for the mds was obtained from review of the clinical record, interview of resident, staff, and direct observation of resident's care.
--- OUTSIDE RECORDS SUMMARY | 2019-01-20 05:48 | XMS RPT_ITS | Summary of Care ---
:1940 Author Organization [facility] Address [address] [place] [address] Phone Care Team Providers Name Role Phone Anabella Lomax MD Primary Care Provider Amando Hu MD Referring 1 Abe Finch MD Referring 2 Reason for Referral Consultation (Routine) Status Reason Specialty Diagnoses / Referred By Referred To Procedures Contact Contact New Request Neurologic Surgery Diagnoses Subdural hematoma Sulma Reese MD [address] [place] [address] MRI/CAT Scan (Routine) Status Reason Specialty Diagnoses / Referred By Referred To Procedures Contact Contact New Request Diagnoses Subdural hematoma Sulma Reese, Procedures CT HEAD WITHOUT CONTRAST WA CT SCAN,HEAD/BRAIN,W/O CONTRAST PATRICIA ROGERS [address] [place] [address] Consultation (Routine) Status Reason Specialty Diagnoses / Referred By Referred To Procedures Contact Contact New Request Palliative Diagnoses Palliative care by specialist Sulma Reese MD [address] [place] [address] Scheduling Instructions Contact the [facility] to schedule the appointment: [facility]: [phone] or [facility]: [phone] (Routine) Status Reason Specialty Diagnoses / Procedures Referred By Contact Referred To Contact Humza Becerra, DO [address] [place] [address] (Routine) Status Reason Specialty Diagnoses / Procedures Referred By Contact Referred To Contact MariamHumza da silva, DO [address] [place] [address] (Routine) Status Reason Specialty Diagnoses / Procedures Referred By Contact Referred To Contact Humza Becerra, DO [address] [place] [address] (Routine) Status Reason Specialty Diagnoses / Procedures Referred By Contact Referred To Contact Humza Becerra, DO [address] [place] [phone] Adjunctive Therapy (Routine) Status Reason Specialty Diagnoses / Referred By Referred To Procedures Contact Contact New Request Cardiac Diagnoses Acute on chronic systolic congestive heart failure Sulma Reese MD [address] [place] [phone] (Routine) Status Reason Specialty Diagnoses / Procedures Referred By Contact Referred To Contact [facility] [address] [place] [phone] (Routine) Status Reason Specialty Diagnoses / Procedures Referred By Contact Referred To Contact [facility] [address] [place] [phone] Transfer of Care (Routine) Status Reason Specialty Diagnoses / Referred By Referred To Procedures Contact Contact New Request Social Work Diagnoses Acute on chronic systolic congestive heart failure Sulma Reese MD [address] [place] [phone] Radiology (Emergency) Status Reason Specialty Diagnoses / Referred By Referred To Procedures Contact Contact New Request Procedures Barrett Calle MD [address] [place] [phone] (Routine) Status Reason Specialty Diagnoses / Procedures Referred By Contact Referred To Contact [facility] [address] [place] [phone] (Routine) Status Reason Specialty Diagnoses / Procedures Referred By Contact Referred To Contact [facility] [address] [place] [phone] (Routine) Status Reason Specialty Diagnoses / Procedures Referred By Contact Referred To Contact [facility] [address] [place] [phone] (Routine) Status Reason Specialty Diagnoses / Procedures Referred By Contact Referred To Contact [facility] [address] [place] [phone] Radiology (Routine) Status Reason Specialty Diagnoses / Referred By Referred To Procedures Contact Contact New Request Procedures Barrett Calle MD [address] [place] [phone] Radiology (Routine) Status Reason Specialty Diagnoses / Referred By Referred To Procedures Contact Contact New Request Procedures Barrett Calle MD [address] [place] [phone] Radiology (Emergency) Status Reason Specialty Diagnoses / Referred By Referred To Procedures Contact Contact New Request Procedures Ema Mar ECG MD [address] [place] [phone] Radiology (Emergency) Status Reason Specialty Diagnoses / Referred By Referred To Procedures Contact Contact New Request Procedures Ema Mar ECG MD [address] [place] [phone] (Routine) Status Reason Specialty Diagnoses / Procedures Referred By Contact Referred To Contact Eren Peña MD [address] [place] [phone] (Routine) Status Reason Specialty Diagnoses / Procedures Referred By Contact Referred To Contact Eren Peña MD [address] [place] [phone] (Routine) Status Reason Specialty Diagnoses / Procedures Referred By Contact Referred To Contact Eren Peña MD [address] [place] [address] (Routine) Status Reason Specialty Diagnoses / Procedures Referred By Contact Referred To Contact Eren Peña MD [address] [place] [address] Radiology (Routine) Status Reason Specialty Diagnoses / Procedures Referred By Referred To Contact Contact New Request Procedures Eren Peña MD PACEMAKER/ICD [address] [place] [address] Radiology (Routine) Status Reason Specialty Diagnoses / Procedures Referred By Referred To Contact Contact New Request Procedures Eren Peña MD PACEMAKER/ICD [address] [place] [address] Radiology (Emergency) Status Reason Specialty Diagnoses / Referred By Referred To Procedures Contact Contact New Request Procedures Ema Mar, ECG MD [address] [phone] (Routine) Status Reason Specialty Diagnoses / Referred By Referred To Procedures Contact Contact New Request Procedures Ema Mar, PLATELET MONITORING PER PROTOCOL [address] [phone] (Routine) Status Reason Specialty Diagnoses / Referred By Referred To Procedures Contact Contact New Request Procedures Ema Mar, DVT/VTE RISK MD ASSESSMENT [address] [address] (Routine) Status Reason Specialty Diagnoses / Referred By Referred To Procedures Contact Contact New Request Procedures Ema Mar, PLATELET MONITORING PER PROTOCOL [address] [phone] (Routine) Status Reason Specialty Diagnoses / Referred By Referred To Procedures Contact Contact New Request Procedures Ema Mar, DVT/VTE RISK MD ASSESSMENT [address] [place] [address] Radiology (Emergency) Status Reason Specialty Diagnoses / Referred By Referred To Procedures Contact Contact New Request Procedures Ema Mar, ECG MD [address] [place] [address] Reason for Visit Auth/Cert Status Reason Specialty Diagnoses / Procedures Referred By Contact Referred To Contact Diagnoses a fib Encounter Details Date Type Department Care Team Description 10/02/2018 - Hospital Encounter H6 Eren Peña MD [address] [place] [phone] Diastolic 10/11/[address] [place] [address] Sulma Reese MD [address] [place] [phone] dysfunction with [place] chronic heart [phone] failure [phone] Allergies Active Allergy Reactions Severity Noted Date Comments Amiodarone 05/18/2014 Thyroid storm Demerol Hypotension 07/13/2011 Spironolactone Dizzy/Vertigo, Dyspepsia 07/06/2016 as of this encounter Medications Prescription Sig. Disp. Refills Start End Date Status Date Ranolazine 1000 MG take 1 Tab by Active PO tab SR mouth 2 times daily. Magnesium Oxide take 1 tablet by Active (MAG-OX 400 PO) mouth daily.. atorvastatin 10 MG take 10 mg by Active Tab mouth daily.. aspirin 81 MG Chew take 1 tablet by Active Tab mouth daily.. 7 rOPINIRole 1 MG take 2 mg by mouth Active Tab 2 times daily.. 8pm and 11pm LevETIRAcetam Take 750 mg by Active (KEPPRA PO) mouth 2 times daily. Verified with and med list from [facility] that dose is 750mg BID sitaGLIPtin 50 MG Take 50 mg by Active Tab tablet mouth daily. levothyroxine 50 Take 100 mcg by Active MCG Tab tablet mouth daily. rOPINIRole 4 MG Take 4 mg by mouth Active Tab at bedtime. At 8pm escitalopram Take 5 mg by mouth Active (LEXAPRO) 5 MG Tab at bedtime. tablet TRIAMCINOLONE Apply topically. Active ACETONIDE, TOP, 0.05 % Ointment mexiletine 150 MG Take 150 mg by Active Cap capsule mouth 3 times daily. potassium chloride Take 20 mEq by Active 20 MEQ Tab CR mouth daily. tablet isosorbide Take 1 tablet by 30 tablet 1 12/11/19 Active mononitrate 60 MG mouth daily. 8 19 Tab SR 24 HR tablet XL mexiletine 150 MG Take 1 capsule by 90 capsule 1 12/10/19 Active Cap capsule mouth every 8 8 19 hours. hydrALAzine 25 MG Take 1 tablet by 90 tablet 1 12/10/19 Active Tab mouth every 8 8 19 hours. metoprolol Take 1 tablet by 30 tablet 1 12/11/19 Active succinate 25 MG mouth daily. 8 19 tablet XL bumetanide 2 MG Take 1 tablet by 30 tablet 1 12/10/19 Active Tab tablet mouth daily every 8 19 morning. bumetanide 1 MG Take 1 tablet by 30 tablet 1 12/10/19 Active Tab mouth every 8 19 evening. levothyroxine 50 Take 1 tablet by 30 tablet 1 12/11/19 Active MCG Tab tablet mouth daily. 8 19 CUSTOM MEDICATION Please draw chem6, 1 Each 0 Active magnesium on 8 approximately 10/16/2018 and have results faxed to heart failure clinic at [phone]. clopidogrel take 1 Tab by 10/08/20 Discontinued (PLAVIX) 75 MG PO mouth daily every 18 TABS morning. nitroGLYCERIN 1 Tab by 10/08/20 Discontinued (NITROSTAT) 0.4 MG Sublingual route 18 SL tablet as needed. levothyroxine 25 Take 100 mcg by 10/08/20 Discontinued MCG PO TABS mouth daily. 18 multivitamin w/ take 1 Tab by 10/08/20 Discontinued minerals PO TABS mouth daily. 18 Lactobacillus take 1 tablet by 10/08/20 Discontinued (PROBIOTIC mouth daily.. 18 ACIDOPHILUS PO) metolazone 2.5 MG take 2.5 mg by 10/11/20 Discontinued Tab mouth as needed 18 (Taking 2-3 times per week alternating with potassium per PCP).. isosorbide Take 30 mg by 10/11/20 Discontinued mononitrate 60 MG mouth daily every 18 Tab SR 24 HR morning. carveDILOL 12.5 MG take 18.75 mg by 10/11/20 Discontinued Tab mouth 2 times 18 daily.. bumetanide 1 MG take 1 mg by mouth 10/11/20 Discontinued TabIndications: 2 times daily.. 18 NSVT (nonsustained ventricular tachycardia) Potassium Chloride take 1 tablet by 10/08/20 Discontinued ER 20 MEQ Tab CR mouth three times 18 a week.. clonazePAM 1 MG take 1 mg by mouth 10/08/20 Discontinued Tab 2 times daily as 18 needed.. dofetilide 250 MCG take 1 capsule by 180 capsule 0 10/11/20 Discontinued capsuleIndications mouth every 12 7 18 : VT (ventricular hours.. If 3 doses tachycardia) are missed, contact the prescribing senior hydrogeologist as soon as possible. mexiletine 150 MG take 1 capsule by 180 capsule 1 10/08/20 Discontinued CapIndications: VT mouth every 12 7 18 (ventricular hours.. tachycardia) as of this encounter Active Problems Problem Noted Date Goals of care, counseling/discussion 10/07/2018 Palliative care by specialist 10/07/2018 Obesity: body mass index of 30.0-34.9 10/02/2018 A-fib 10/02/2018 Diastolic dysfunction with chronic heart failure 10/02/2018 Overview: Added automatically from request for surgery [id number] Persistent atrial fibrillation 10/02/2018 Overview: Added automatically from request for surgery [id number] Dyspnea 01/06/2017 Last Assessment & Plan: Dyspnea improved today. Metolazone given yesterday. Patient takes prn at home up to three times per week if feels fluid accumulation. Pseudoaneurysm following procedure 01/06/2017 Last Assessment & Plan: VT ablation 01/03/17. H/H continues to drop. Bruit right groin. Small hematoma present. Doppler reveals pseudoaneurysm. Vascular surgery consulted. CT abd/pelvis ordered for RP bleed Chronic kidney disease (CKD) 07/07/2016 Last Assessment & Plan: Creat much improved today at 1.60and BUN 41. Back to below baseline. Drinking fluid. Call PCP, most recent creatinine was a couple of weeks ago at 1.85. DCd ramipril after one dose. Held AM dose of Bumex 01/04, continued today. Patient feels like he gets fluid over loaded if misses too many - gave metolazone 01/05 High risk medication use 07/06/2016 Last Assessment & Plan: Antiarrhythmia appointment arranged. Will keep appointment in [address] Finch then as well to see how the VT is on Mexitil and Tikosyn. Type 2 diabetes mellitus without complication 07/06/2016 Last Assessment & Plan: Patient states he is controlled with diet only; no oral agents or insulin A1C monitored by PCP and 6.1 most recently per patient report Carb controlled diet Obstructive sleep apnea 07/06/2016 Last Assessment & Plan: Continue CPAP Acute on chronic systolic congestive heart failure 06/03/2014 Last Assessment & Plan: Transferred from [place] 06/02/14 with increasing GUERIN, LE edema and fatigue EF 30% per echo last month Device upgrade 06/05/2014 from single chamber ICD to HADOOP INFRASTRUCTURE ARCHITECT-D Post procedure CXR demonstrated no pneumothorax. Post procedure device interrogation demonstrated appropriate settings. Continue Lasix, Spironolactone, Coreg and Ramipril Single ICD (implantable cardiac defibrillator) in place 06/02/2014 ICD (implantable cardiac defibrillator) discharge 05/19/2014 VT (ventricular tachycardia) 05/19/2014 Last Assessment & Plan: S/p VT ablation but suspicious for epicardial VT as well. Likelihood for successful epicardial VT secondary to prior CABG. Tikosyn restarted at higher dose of 375 mcg Q 12 hours with reduction of Mexitil to 150 mg BID to prevent GI effects Had about 1 minute of NSVT 01/04 PM with rates in the 120s. Device interrogated 01/05 showing no events but no detection or monitoring set for rates less than 146 BPM. A monitor zone was turned on at 125 BPM. Endo consulted for consideration of ablation before Amio challenge -appreciate input. Had prior thyroid storm on Amio in past back in 2007. Endo felt may consider radioactive iodine. Would not be abl e to be on Amiodarone prior to procedure. Saw again 01/05 but felt that radioactive iodine may not be effective and thyroidectomy may be a better option but also high risk. Had a OH in past after a chol ecystectomy but still may be a better option to prevent possible thyroid storm if Amio needed in the future. 01/06 Creatinine back below baseline, Tikosyn increased to 250 mcg Q 12 hours on 01/05. QT/QTc stable after 5 th dose - 480/500. S/P hip replacement 10/30/2012 Chronic systolic heart failure 11/07/2011 Last Assessment & Plan: Patient with long-standing CHF most recent EF 37% during cath Repeat echo (latest echo 2013) Consult heart failure team for adjustment of diuretics / heart failure regimen while inpatient (currently managed by PCP) Holding GIOVANNI for kidney function Heart failure education Appreciate team recommendations Type II or unspecified type diabetes mellitus without mention of 11/07/2011 complication, not stated as uncontrolled Hypothyroidism 11/07/2011 Last Assessment & Plan: Continue synthroid. Endo following. Risks associated with radioactive iodine and thyroidectomy but after talking with the team and Dr. Bowling who reviewed with Dr. Hu if needed a thyroidectomy may be a better option. Endo recommended an outpatient referral to ENT for possible thyroidectomy just to be prepared in case surgery is needed. Referral is in. Other and unspecified hyperlipidemia 11/07/2011 Anemia 11/07/2011 Last Assessment & Plan: Started on Iron. H/h dropped 2 gm post procedure and having an increase in restless legs. 01/06 - further drop in H/H today. Bruit right groin - doppler ordered Hypertension Last Assessment & Plan: BP stable and well controlled. CAD (coronary artery disease) Last Assessment & Plan: Continue plavix, coreg, asa and lipitor Immunizations Name Dates Previously Given Next Due Influenza Vaccine 07/22/2016 as of this encounter Social History Tobacco Use Types Packs/Day Years Used Date Former Smoker Cigarettes 0.5 5 Quit: 10/29/1963 Smokeless Tobacco: Never Used Alcohol Use Drinks/Week oz/Week Comments Yes 7 Standard drinks or equivalent 3.5 Occasional Sex Assigned at Date Recorded Not on file as of this encounter Last Filed Vital Signs Vital Sign Reading Time Taken Blood Pressure 120/65 10/11/2018 12:13 PM EST Pulse 79 10/11/2018 2:00 PM EST Temperature 36.4 ??C (97.6 ??F) 10/11/2018 12:13 PM EST Respiratory Rate 17 10/11/2018 12:13 PM EST Oxygen Saturation 98% 10/11/2018 12:13 PM EST Inhaled Oxygen Concentration - - Weight 77.9 kg (171 lb 12.8 oz) 10/11/2018 9:50 AM EST Height 170.2 cm (5' 7.01) 10/03/2018 8:01 AM EST Body Mass Index 26.9 10/11/2018 9:50 AM EST in this encounter Functional Status Functional Status Response Date of Assessment Are you deaf or do you have serious difficulty hearing? Yes 10/02/2018 Are you blind or do you have serious difficulty seeing, No 10/02/2018 even when wearing glasses? Do you have serious difficulty walking or climbing stairs No 10/02/2018 (5 years or older)? Do you have difficulty dressing or bathing (5 yrs or No 10/02/2018 older)? Because of a physical, mental, or emotional condition, do No 10/02/2018 you have difficulty doing errands alone such as visiting a doctor's office or shopping (5 yrs or older)? Cognitive Status Response Date of Assessment Because of a physical, mental, or emotional condition, do No 10/02/2018 you have serious difficulty concentrating, remembering, or making decisions (5 yrs or older)? as of this encounter Discharge Summaries Humza Becerra, DO - 10/11/2018 4:18 PM ESTFormatting of this note may be different from the original. Discharge Summary Name: Dong Marcano Age: 78 y.o. Birthday: 1940 Admit Date: 10/02/2018 7:13 PM Discharge Date: 10/11/2018 DISCHARGE LETTER: Dear Doctors, I recently had the opportunity to care for Dong Marcano during his recent hospital stay at [facility] from 10/02/2018 to 10/11/2018. As you may know, Dong Marcano, is a 78 y.o. male with a past medical history significant for HFrEF 2/2 ICM s/p HADOOP INFRASTRUCTURE ARCHITECT-D, Afib with RVR (ASA, clopidogrel), amiodarone-induced thyroiditis, recurrent VT/atrial arrhythmias (S/p mexilitine, sotalol) who presented at the time of admission with acute on chronic decompensated heart failure. The following describes his hospital course. Acute on chronic systolic and diastolic heart failure complicated by WHO type 2 pulmonary hypertension, Afib with RVR: He initially presented with acute heart failure in the setting of atrial fibrillation with rapid ventricular response. He underwent right heart catheterization, which showed RA 15, PA63/33 (46), PCWP 27, and [place] CO/CI 2.6/1.3. He was started on dobutamine for support, and he underwent AVN node ablation with EP (as the atrial fibrillation remained uncontrolled despite his home Tikosyn + mexilitine). Since the AVN ablation, he has remained hemodynamically stable and continuously improving. He was gradually weaned off the dobutamine and diuresed effectively. He was transitioned to Bumex 2 mg qam / 1 mg at bedtime. Other medication changes during this admission included: - Transitioned carvedilol 18.75 mg BID to Toprol XL 25 mg daily with goal of titrating based upon BP. - Stopped dofetilide due to JASPER that improved to 2.0 - Continued mexilitine due to VT history in addition to SVT - Stopped metolazone (Due to cross interaction with AAD - Imdur-XL 30 mg daily to 60 mg daily - Started hydralazine 25 mg TID. - Continue ASA, hold Plavix ?? Complicated cystitis: As he was found to have a dirty UA, he was empirically treated with a 7-day course of Ceftriaxone 1 g every day. ?? Concern for subacute subdural hematoma in setting of seizure history: With a recent history of new-onset seizure discovered by history a week prior to admission, he underwent CT head for further monitoring. He was found to have a subdural hematoma, which was thought most likely nt acute. His aspirin was continued, but his Plavix was held as he has not had any cardiac stents and his last graft was placed ~10 years ago. Active Hospital Problems Diagnosis ??? Diastolic dysfunction with chronic heart failure ??? Goals of care, counseling/discussion ??? Palliative care by specialist ??? Obesity: body mass index of 30.0-34.9 ??? A-fib ??? Persistent atrial fibrillation ??? Acute on chronic systolic congestive heart failure Resolved Hospital Problems Diagnosis Date Resolved No resolved problems to display. Physical Exam on the Date of Discharge: Vitals: 10/11/18 1400 BP: Pulse: 79 Resp: Temp: Wt Readings from Last 1 Encounters: 12/14/18 77.9 kg (171 lb 12.8 oz) General: somewhat tired appearing, but alert, appears stated age, pleasant and cooperative, NAD, sitting in bedside chair HEENT: Normocephalic and atraumatic Neck: Neck with full range of motion Cardio: RRR, + systolic murmur, head best at apex. JVD to clavicle Resp: Lungs clear to ausculation bilaterally, no w/r/r, no increased work of breathing, no use of accessory muscles Abdomen: Soft, non-tender, non-distended Ext: No cyanosis, no clubbing or cyanosis, no peripheral edema, extremities are warm and dry Neuro: A&O, no focal deficits, moving all extremities spontaneously, appropriate responses to questions Skin: No rashes or lesions, no jaundice At the time of discharge the patient's mental status was alert and appropriate. Upon discharge the patient's code status was FULL It has been my pleasure participating in this patient's care. Please contact me with any questions or concerns regarding his hospital stay. Sincerely, Humza Becerra, DO Dictated under attending physician Sulma Reese MD Division of Hospital Medicine p: [phone] f: [phone] CONSULTS DURING ADMISSION: IP CONSULT TO CARDIOLOGY - EP IP CONSULT TO SURGERY - NEURO IP CONSULT TO CARDIOLOGY - HEART FAILURE IP CONSULT TO NEUROLOGY IP CONSULT TO PALLIATIVE MEDICINE IP CONSULT TO PHYSICAL THERAPY IP CONSULT TO PHYSICAL THERAPY IP CONSULT TO OCCUPATIONAL THERAPY IP CONSULT TO OCCUPATIONAL THERAPY IP CONSULT TO WOUND / OSTOMY NURSING TEAM IP CONSULT TO PERIPHERAL IV TEAM IP CONSULT TO CARDIAC REHAB IMAGING / PROCEDURES / RESULTS: CT HEAD WITHOUT CONTRAST Final Result IMPRESSION: No significant interval change from the prior exam. Stable 3-4 mm extra-axial soft tissue thickening/collection underlying the craniotomy site extending along the left frontal convexity. No significant mass effect or midline shift. I personally viewed and interpreted these images and I have reviewed and approved this report. HEAD WITHOUT CONTRAST Final Result IMPRESSION: Small mildly hyperdense extra-axial collection/soft tissue overlying the left anterior frontal lobe. It is unclear whether this represents a small subdural hematoma versus chronic dural thickening. If clinically indicated, short-term follow-up is suggested to ensure stability. Postoperative changes related to prior left-sided craniotomy. No acute intraparenchymal hemorrhage. No significant mass effect or midline shift. Findings communicated to EREN PEÑA on 10/04/2018 at 1:35 PM. CARDIOGRAM Final Result CT HEAD WITHOUT CONTRAST (Results Pending) Should you require further information or copies of results or reports please contact [employer] @ [phone] LABS AT TIME OF DISCHARGE: Lab Results Component Value Date SODIUM 132 (L) 10/11/2018 SODIUM 133 (L) 11/07/2011 POTASSIUM 3.7 10/11/2018 POTASSIUM 3.8 11/07/2011 MAGNESIUM 2.0 10/11/2018 BUN 39 (H) 10/11/2018 CREATSERUM 2.03 (H) 10/11/2018 Lab Results Component Value Date WBC 6.35 10/11/2018 HGB 13.0 (L) 10/11/2018 PLATELET 184 10/11/2018 INR 1.1 10/03/2018 Lab Results Component Value Date HGBA1C 6.7 (H) 11/25/2007 RESULTS / STUDIES PENDING AT DISCHARGE: None FURTHER RECOMMENDATIONS: - WATCHMAN eval as an outpatient with EP - Continue ASA. Stop Plavix. PATIENT'S MEDICAL HOME AT DISCHARGE: Anabella Lomax [address] / [facility] [address] Anabella Lomax MD [address] [address] [facility] [address] Go on 10/30/2018 Your appointment is at 11:30 am Amando Hu MD [address] [facility] [address] [facility] [id number] Go on 10/17/2018 Your cardiology appointment is at 1:30 pm Other [facility]- Pulmonary & Cardiac Re[facility] [address] [address] Go to You have been referred to your local cardiac rehab facility. Please call them if you have not been contacted in the next 3-4 weeks. DREW Harry, RN - ACS/HF Transition Nurse Navigator [phone] Call Call for any questions or concerns related to medications and symptoms of increasing shortness of breath, lower extremity edema, or weight gain related to Heart Failure until you are seen by your Primary Care Provider or Engineering Assistant. [place] PH: [phone] Call [employer] supplying your walker after you discharge from the hospital Dr Calle or EP Partner PH: [phone] The EP Clinic will call and give you a date and time for your clinic appointment in regards to the [facility] Evaluation CT of your head [facility] Location [address], [place] PH: [phone] Go on 11/04/2018 Your appointment is at 1:30pm-PLEASE BE NPO 4 HOURS PRIOR TO YOUR SCAN-You can have liquids in smallamounts Dr [facility] ph: [phone] Go on 11/06/2018 Your appointment is at 3:30 pm [facility] You will discharge to this facility. [facility] will continue wojciech your [facility] agency. Phone - [phone] Fax - [phone] [facility] MEDICATIONS: Medication List START taking these medications CUSTOM MEDICATION Please draw chem6, magnesium on approximately 10/16/2018 and have results faxed to heart failure clinic at [phone]. hydrALAzine 25 MG TABS Commonly known as: APRESOLINE Take 1 tablet by mouth every 8 hours. metoprolol succinate 25 MG tablet XL Commonly known as: TOPROL-XL Take 1 tablet by mouth daily. Start taking on: 10/12/2018 CHANGE how you take these medications * bumetanide 2 MG TABS tablet Commonly known as: BUMEX Take 1 tablet by mouth daily every morning. What changed: ?? medication strength ?? how much to take ?? when to take this * bumetanide 1 MG TABS Commonly known as: BUMEX Take 1 tablet by mouth every evening. What changed: You were already taking a medication with the same name, and this prescription was added. Make sure you understand how and when to take each. isosorbide mononitrate 60 MG tab XL tablet XL Commonly known as: IMDUR Take 1 tablet by mouth daily. Start taking on: 10/12/2018 What changed: ?? how much to take ?? when to take this * levothyroxine 50 MCG TABS tablet Commonly known as: SYNTHROID What changed: Another medication with the same name was changed. Make sure you understand how and when to take each. * levothyroxine 50 MCG TABS tablet Commonly known as: SYNTHROID Take 1 tablet by mouth daily. Start taking on: 10/12/2018 What changed: ?? medication strength ?? how much to take * This list has 4 medication(s) that are the same as other medications prescribed for you. Read the directions carefully, and ask your doctor or other care provider to review them with you. CONTINUE taking these medications aspirin 81 MG CHEW chewable tablet take 1 tablet by mouth daily.. atorvastatin 10 MG TABS tablet Commonly known as: LIPITOR KEPPRA PO LEXAPRO 5 MG TABS tablet Generic drug: escitalopram MAG-OX 400 PO * mexiletine 150 MG CAPS capsule Commonly known as: MEXITIL * mexiletine 150 MG CAPS capsule Commonly known as: MEXITIL Take 1 capsule by mouth every 8 hours. potassium chloride 20 MEQ tab ER tablet Commonly known as: K-DUR, KLOR-CON M20 Ranolazine 1000 MG tab SR tablet Commonly known as: RANEXA * rOPINIRole 1 MG TABS Commonly known as: REQUIP * rOPINIRole 4 MG TABS Commonly known as: REQUIP sitaGLIPtin 50 MG TABS tablet Commonly known as: JANUVIA TRIAMCINOLONE ACETONIDE (TOP) 0.05 % OINT * This list has 4 medication(s) that are the same as other medications prescribed for you. Read the directions carefully, and ask your doctor or other care provider to review them with you. STOP taking these medications carveDILOL 12.5 MG TABS tablet Commonly known as: COREG dofetilide 250 MCG capsule Commonly known as: TIKOSYN metolazone 2.5 MG TABS Commonly known as: ZAROXOLYN Medication Instructions: Medications . ? Your medicines were changed during your hospital stay. Review your list of medicines and only takethose medicines on the list (be aware of the medications you are to STOP taking). Do not take any other medicines unless you first check with your doctor. ? As a person with heart failure, you should avoid taking NSAIDS (Non-Steroidal Anti-Inflammatory) medicines. These include medicine like Ibuprofen, sold under the brand names as Advil or Motrin or Naproxen Sodium, sold as Aleve brand. Contact your doctor's office if you have questions about over the counter medicines and other options for pain relief. Please see your Primary Care Physician or Engineering Assistant for refills for your medications. Where to Get Your Medications These medications were sent to [facility] [phone] - [address] [id number] ?? bumetanide 1 MG TABS ?? bumetanide 2 MG TABS tablet ?? hydrALAzine 25 MG TABS ?? isosorbide mononitrate 60 MG tab XL tablet XL ?? levothyroxine 50 MCG TABS tablet ?? metoprolol succinate 25 MG tablet XL ?? mexiletine 150 MG CAPS capsule You can get these medications from any pharmacy Bring a paper prescription for each of these medications ?? CUSTOM MEDICATION Associated attestation - Sulma Reese MD - 10/11/2018 5:32 PM ESTAttending Physician Note I saw and personally examined the patient today with the resident and fellow on heart failure roundson 10/11/18 at 1000. I discussed the symptoms and exam findings, results of testing and therapeutic plan with the resident. I agree with the history, physical examination, and medical decisions as outlined in the progress note, and I have edited the note in its essential parts to reflect my plan for this patient. Sulma Reese M.D. Professor of Clinical Internal Medicine Advanced Heart Failure and Transplant Program [facility] [email or web address] ph [phone] fax [phone] in this encounter Discharge Instructions Discharge Instr - Wound Care - Ama Hannah RN - 10/08/2018 12:21 PM EST Wound Recommendation: Buttocks: Please apply Critic Aid moisture barrier ointment twice daily and as needed to coccyx and buttocks.Discharge Instr - Notify - Ama Hannah RN - 10/07/2018 6:13 AM ESTNotify Your Doctor or Nurse if you have any of the following: ? Respiratory Changes- Call your doctor or nurse if you have more shortness of breath ? Unrelieved Pain - Call your doctor or nurse if your pain gets worse or is not eased 1 hour after taking your pain medicine. ? Symptoms of Stroke- Call for medical help right away if you have any signs of a stroke such as numbness or muscle weakness, confusion, memory problems or problems speaking. ? Signs of Infection- Call your doctor or nurse if you have a fever, chills, nausea, vomiting or diarrhea. Weight Monitoring ? Weigh yourself every morning wearing similar clothes. Record your weight on the weight calendar found in your Living with Heart Failure binder. Call your healthcare provider if you gain 2 pounds in one day or 5 pounds in one week. Discharge Instr - James - Ama Hannah RN - 10/07/2018 6:13 AM ESTDiet: Your doctor has recommended that you follow these diet instructions at home. Refer to the patient education materials you received during your hospital stay. If you would like more nutrition counseling, ask your doctor about making an appointment with an outpatient dietitian. Heart Healthy Diet to promote heart health. Choose healthy fats and oils such as canola or olive oil. Limit high cholesterol foods. Avoid added salt and caffeine in your foods. ?? Controlled Carbohydrate Diet This diet controls carbohydrate intake to help manage and maintain consistent blood glucose levels.Simple sugars are limited and carbohydrate intake is balanced throughout the day. Avoid adding saltto your food and use heart healthy fats such as canola or olive oil. ? Cardiac-Very Low Sodium -Limit your salt or sodium intake each day to between 1500 and 2000 mg to help manage high blood pressure and limit fluid build up if you have heart failure. Your doctor has recommended that you follow these diet instructions at home. Refer to the patient education materials you received during your hospital stay. If you would like more nutrition counseling, ask your doctor about making an appointment with an outpatient dietitian. ? Continue to maintain a diet low in fat and cholesterol. Fluid Restriction ? Your doctor has ordered a fluid restriction to prevent fluid build up in your body because of heart or kidney problems. You should limit your fluids to no more than 2 liters (2000ml) daily, unless otherwise directed by your Engineering Assistant. Be sure to include all fluids in your daily total. Daily Weights ? Contact your senior hydrogeologist with a weight gain of 2 lbs in a 24 hr period or 5 lbs in one week Discharge Instr - Activity - Ama Hannah RN - 10/07/2018 6:13 AM EST Activity ? Advance your activity as you are able. Space your activities throughout the day and allow for restperiods to limit feeling tired or short of breath. Call your doctor and seek medical help right away if you have chest pain, shortness of breath that gets worse, a cough that gets worse or you cough up blood. ? Follow Cardiac Rehab guidelines for activity progression. We encourage your take part in out-patient cardiac rehab program. Discharge Instr - Meds - Ama Hannah RN - 10/07/2018 6:13 AM EST Medications . ? Your medicines were changed during your hospital stay. Review your list of medicines and only takethose medicines on the list (be aware of the medications you are to STOP taking). Do not take any other medicines unless you first check with your doctor. ? As a person with heart failure, you should avoid taking NSAIDS (Non-Steroidal Anti-Inflammatory) medicines. These include medicine like Ibuprofen, sold under the brand names as Advil or Motrin or Naproxen Sodium, sold as Aleve brand. Contact your doctor's office if you have questions about over the counter medicines and other options for pain relief. Please see your Primary Care Physician or Engineering Assistant for refills for your medications. Ama Hannah RN - 10/07/2018Appointments ? You will find your scheduled appointments within your discharge instructions, it is very importantthat you keep these appointments or reschedule as soon as possible if you are unable to make the appointment that has been scheduled for you. ?? Follow Up Appointment It is your responsibility to check that this appointment is covered by your insurance carrier. If the appointment requires pre-authorization or doctor referral, you must bring that paperwork to your visit. You can verify if the doctor you are scheduled to see is a participant in your insurance plan by calling your carrier. If your insurance will not cover this visit or you have no insurance coverage,you will be required to make a down payment at the time of service. Additional Contacts: Cardiology Service Follow-Up -Please call to schedule or reschedule an appointment or procedure: -Cardiology Central Scheduling at [phone] or [phone] -Please call with questions, concerns, or medical problems: -Cardiology Central Scheduling at [phone] or [phone] Please refer to the information about your follow-up care that was given to you at the hospital. Evening and Weekend Contacts If you have questions or concerns during evening, weekend, or holiday hours, please call: -[facility] locomotive crane operator at [phone]. -[facility] locomotive crane operator at [phone] Ask the locomotive crane operator to page the on-call doctor for HEART 1, the service that was responsible for your care while you were in the hospital. If you having an emergency, call [phone]. Miscellaneous Education ? New Depression Warning Sign - The rate of clinical depression is higher in individuals with a serious medical illness, such as heart disease and stroke, than in the general population. Because of this you should be aware of the warning signs for depression. They include problems concentrating and rem embering details or making decisions, fatigue, decreased energy, feeling guilty, worthless, helpless, pessimistic or hopeless, insomnia, early-morning waking or excessive sleeping, irritability, restlessness, loss of interest in favorite activities or hobbies, loss of libido, overeating or appetite loss, persistent aches or pains, headaches, cramps and/or digestive problems that do not ease with treatment, persistent sad, anxious or empty feelings, thoughts of suicide and suicide attempts. People treated for depression often have improvement in their overall medical condition and have a better quality of life. If you have any of the symptoms above please contact your primary care doctor. ?? Falls Prevention Many falls can be prevented. Here are some things you can do. First, tell your doctor or nurse if you have fallen or nearly fallen. Ask if you could see a physical therapist (PT) to help you improve your strength and balance. Check with your doctor or pharmacist to see if any of the medicines that youtake may increase your risk for falls. Have your vision checked each year. See your doctor if you are dizzy or weak with any illness. Wear comfortable shoes with low, broad heels and soles that grooming salon manager. Drink enough liquid each day. Ask your doctor how much is enough. Consider using an emergency personalmedical alert system. Get up slowly after sitting or lying down. Remove throw rugs, improve lighting, use reflective tape on stairs. If you get a prescription for PT, call the [facility] at [phone] to schedule an appointment. If you don't have a primary doctor, call [phone] or your local hospital to get one. ?? Discharge Instructions You will be given two copies of this discharge instruction. Keep one copy with you. This document has a copy of your current medicines. Take one copy to all of your doctor appointments. If medicines are added or deleted at your doctor visits, update this document. If you are readmitted to the hospitalgive a copy to the admitting doctor so he or she will know your current medicines. Contact Information Sunday ??? Sunday 8 am- 4:30 pm: [facility] Making Department: [phone] Celia Wilson ??? Clinical Nurse Leader: Please call with questions, concerns, medical problems or to reschedule your follow up appointment. Evening, Weekend and Holiday: [phone] Ask the locomotive crane operator to page the on-call doctor for Cardiology, the service that was responsible for your care while you were in the hospital. If you are having an emergency, call [phone]. in this encounter Progress Notes Elvia Watson, RD - 10/11/2018 4:01 PM ESTFormatting of this note may be different from the original. NUTRITION FOLLOW-UP Current Diet Orders Procedures ??? DIET CARDIAC - VERY LOW SODIUM Soft; Carb Controlled Pt with dental appliance, needs soft foods. Standing Status: Standing Number of Occurrences: 1 Order Specific Question: Additional Modifier: Answer: Soft Order Specific Question: Additional Modifier: Answer: Carb Controlled Appetite: good % PO intake: ranges 0-100% and averages 67% over 19 meals documented. Admit wt:89.5 kg Last recorded : Weight: 77.9 kg (171 lb 12.8 oz) (standing) Height: 170.2 cm (5' 7.01) BMI (Calculated): 31 11% wt change since admit 8 days ago noting pt is -11.9L this admit. Wt Readings from Last 3 Encounters: 10/11/18 77.9 kg (171 lb 12.8 oz) 01/30/17 88.5 kg (195 lb) 01/30/17 88.5 kg (195 lb) (Retired/Read Only) Skin (Adult) Skin Color/Characteristics: bruised (ecchymotic) Skin Temperature: warm Skin Moisture: dry Skin Integrity: bruise(s) Sensory Perception: 4-->no impairment Moisture: 4-->rarely moist Activity: 3-->walks occasionally Mobility: 4-->no limitation Nutrition: 3-->adequate Friction and Shear: 3-->no apparent problem Steve Score: 21 Summary : Pt with few nutrition risk factors at this time. Noted pending discharge. Nutrition Plan of Care: 1. Will continue daily meal selections as able. 2. Monitor for significant weight changes outside of fluid removal - met 3. Monitor/encourage po intake with goal to average >50%-met 4. Rate Analyst will continue to follow NGA Rojo Laura, LISWS - 10/11/2018 3:18 PM ESTSW updated by [facility] that patient's precert was denied by his insurance. TAYLOR updated team, met with patient, his , and their son at bedside to provide update. Family state theyneed time to discuss what they would like to do; SW then received call from patient's son inquiring if there was an appeal that could be done or if the family could talk to the insurance company to explain why they feel patient needs SNF placement. TAYLOR contacted [facility] Medicare, transferred to peer to peer line patient access representative who states they recommend our physician complete a peer to peer first. Theystate if the peer to peer is denied, then there is an opportunity for family to submit an appeal or dispute of the claim. TAYLOR submitted information to request peer to peer; [employer] states they have days to complete this and they may call today but also may not call until Sunday or Sunday. SW met with patient/family to provide this update; states she is embarrassed by requesting us to do this and SW provided her reassurance, that this does happen, and we want to ensure she and patient feel comfortable with any discharge plan. appreciative. TAYLOR then received message from patient's stating they have decided to take patient home with thesupport of home health, and their son will be driving them home which has provided them some reassurance. Team and bedside RN aware. Kalli Khanh Magallanes, [phone] Hannah RN - 10/11/2018 1:35 PM ESTPt denied pre-cert to SNF. SW and CM met with patient, and son. very distressed about the denial but I assured her that [facility] can accept them back and can provide nsg, PT and OT services. Team is agreeable to allow patient to discharge home tomorrow so can go home and get things in order. Ama Hannah, BEKA Clinical Hack Saw Operator [place] [id number] Humza Becerra, - 10/11/2018 12:52 PM ESTFormatting of this note may be different from the original. CHF/ACS/HRT1 PROGRESS NOTE IDENTIFYING INFORMATION PATIENT: Dong Marcano ADMIT DATE: 10/02/2018 TIME OF EVALUATION: 10/11/2018 12:52 PM INTERVAL HISTORY Past 24 hours reviewed, RICCARDO events. - Continues to do well. Telling jokes. Unfortunately, was denied precert at SNF today. Family to decide home going plan (either home with [facility] vs self pay SNF). Denies chest pain, dyspnea, fever, chills. PAST MEDICAL, SURGICAL, FAMILY, AND SOCIAL HISTORY Past Medical History: Diagnosis Date ??? Anemia ??? Anemia ??? Arrhythmia ??? Atrial arrhythmia ??? CAD (coronary artery disease) ??? Chronic kidney disease (CKD) 07/07/2016 ??? Congestive heart failure, unspecified (HCC) ??? Diabetes ??? GERD (gastroesophageal reflux disease) ??? Heart attack x 2 ??? Hyperlipidemia ??? Hypertension ??? Hypothyroidism ??? Ischemic cardiomyopathy ??? OA (osteoarthritis) ??? XOCHITL (obstructive sleep apnea) ??? Pacemaker ??? Restless leg syndrome ??? Vascular disease ??? VT (ventricular tachycardia) (HCC) Past Surgical History: Procedure Laterality Date ??? INTERCARDIAC VT ABLATION N/A 01/03/2017 Laterality: N/A; Surgeon: Abe Finch MD; Location: [facility] ??? CARDIAC VEIN ELECTRODE PLACEMENT FOR LV PACING N/A 06/05/2014 Laterality: N/A; Surgeon: Saturnino Oquendo MD; Location: [facility] ??? ICD PLACEMENT N/A 06/05/2014 Laterality: N/A; Surgeon: Saturnino Oquendo MD; Location: [facility] ??? ARTHROPLASTY HIP TOTAL 11/07/2011 Laterality: Right; Surgeon: Sudarshan Carr MD;; Location: [facility] ??? HEART CATHETERIZATION 03/31/2011 ??? AICD, DUAL CHAMBER 2009 ??? CORONARY ARTERY BYPASS GRAFT 2009 ??? CHOLECYSTECTOMY 2008 ??? AICD, DUAL CHAMBER 2004 ??? CORONARY ARTERY BYPASS GRAFT 1988 ??? COLONOSCOPY ??? HEART CATHETERIZATION ??? KNEE CARTILAGE SURGERY ??? KNEE SURGERY medial collteral Family History Problem Relation Age of Onset ??? Myocardial Infarction Mother ??? Hypertension Mother ??? Diabetes Mother ??? Myocardial Infarction Father ??? Hypertension Father ??? Diabetes Maternal Grandmother ??? Anesth Problems Neg Hx Social History Social History ??? Marital status: Spouse name: N/A ??? Number of children: N/A ??? Years of education: N/A Social History Main Topics ??? Smoking status: Former Smoker Packs/day: 0.50 Years: 5.00 Types: Cigarettes Quit date: 10/29/1963 ??? Smokeless tobacco: Never Used ??? Alcohol use 3.5 oz/week 7 Standard drinks or equivalent per week Comment: Occasional ??? Drug use: No ??? Sexual activity: Yes Partners: Female Other Topics Concern ??? Not on file Social History Narrative ??? No narrative on file MEDICATIONS SCHEDULED: aspirin 81 mg Daily atorvastatin 10 mg Daily bumetanide 1 mg Q24H bumetanide 2 mg Daily heparin 5,000 Units Q8H hydrALAzine 25 mg Q8H insulin lispro 4x daily w/meals, HS isosorbide mononitrate 60 mg Daily levetiracetam 1,000 mg Q12H levothyroxine 50 mcg Daily metoprolol succinate 25 mg Daily mexiletine 150 mg Q8H Ranolazine 1,000 mg Q12H rOPINIRole 2 mg QHS FLUIDS/DRIPS: PRNs: dextrose 7.5-25 g As directed PRN And glucose 1-2 Tube As directed PRN docusate 100 mg BID PRN magnesium oxide 800 mg As directed PRN magnesium oxide 800 mg As directed PRN nitroGLYCERIN 0.4 mg PRN ondansetron 4mg/2ml 4 mg Q6H PRN Or ondansetron 4 mg Q6H PRN potassium chloride 40-60 mEq As directed PRN sodium chloride 0.9% 250 mL PRN sodium chloride 0.9% 500 mL As directed PRN ALLERGIES: He is allergic to amiodarone; demerol; and spironolactone. PRIOR TO ARRIVAL MEDS: Prior to Admission Medications Prescriptions Last Dose Informant Patient Reported? Taking? Lactobacillus (PROBIOTIC ACIDOPHILUS PO) More than a month at Unknown time Yes No Sig: take 1 tablet by mouth daily.. LevETIRAcetam (KEPPRA PO) 10/02/2018 at Unknown time Significant Other Yes Yes Sig: Take 750 mg by mouth 2 times daily. Verified with and med list from [facility] that dose is 750mg BID Magnesium Oxide (MAG-OX 400 PO) 10/02/2018 at Unknown time Yes Yes Sig: take 1 tablet by mouth daily.. Potassium Chloride ER 20 MEQ Tab CR 10/02/2018 at Unknown time Yes Yes Sig: take 1 tablet by mouth three times a week.. Ranolazine 1000 MG PO tab SR 10/02/2018 at Unknown time Yes Yes Sig: take 1 Tab by mouth 2 times daily. aspirin 81 MG Chew Tab 10/02/2018 at Unknown time No Yes Sig: take 1 tablet by mouth daily.. atorvastatin 10 MG Tab 10/02/2018 at Unknown time Yes Yes Sig: take 10 mg by mouth daily.. bumetanide 1 MG Tab 10/02/2018 at Unknown time Yes Yes Sig: take 1 mg by mouth 2 times daily.. carveDILOL 12.5 MG Tab 10/02/2018 at Unknown time Yes Yes Sig: take 18.75 mg by mouth 2 times daily.. clonazePAM 1 MG Tab More than a month at Unknown time Yes No Sig: take 1 mg by mouth 2 times daily as needed.. clopidogrel (PLAVIX) 75 MG PO TABS 10/02/2018 at Unknown time Yes Yes Sig: take 1 Tab by mouth daily every morning. dofetilide 250 MCG capsule 10/02/2018 at Unknown time No Yes Sig: take 1 capsule by mouth every 12 hours.. If 3 doses are missed, contact the prescribing senior hydrogeologist as soon as possible. isosorbide mononitrate 60 MG Tab SR 24 HR 10/02/2018 at Unknown time Self Yes Yes Sig: Take 30 mg by mouth daily every morning. levothyroxine 25 MCG PO TABS 10/02/2018 at Unknown time Self Yes Yes Sig: Take 100 mcg by mouth daily. metolazone 2.5 MG Tab Past Week at Unknown time Yes Yes Sig: take 2.5 mg by mouth as needed (Taking 2-3 times per week alternating with potassium per PCP).. mexiletine 150 MG Cap 10/02/2018 at Unknown time No Yes Sig: take 1 capsule by mouth every 12 hours.. Patient taking differently: Take 150 mg by mouth every 8 hours. Verified with med list from [facility] patient that dose is 150mg TID multivitamin w/ minerals PO TABS More than a month at Unknown time Yes No Sig: take 1 Tab by mouth daily. nitroGLYCERIN (NITROSTAT) 0.4 MG SL tablet Unknown at Unknown time Yes No Si Tab by Sublingual route as needed. rOPINIRole 1 MG Tab 10/01/2018 at Unknown time Yes Yes Sig: take 2 mg by mouth 2 times daily.. 8pm and 11pm sitaGLIPtin 50 MG Tab tablet Yes Yes Sig: Take 50 mg by mouth daily. Facility-Administered Medications: None REVIEW OF SYSTEMS ROS As per HPI OBJECTIVE FINDINGS Vital Signs (24hrs): Temp: [97.4 ??F (36.3 ??C)-97.9 ??F (36.6 ??C)] 97.6 ??F (36.4 ??C) Pulse (Heart Rate): [79-85] 80 Resp Rate: [16-19] 17 BP: (105-135)/(58-78) 120/65 O2 Sat (%): [96 %-100 %] 98 % Weight: [77.9 kg (171 lb 12.8 oz)-81.6 kg (179 lb 14.3 oz)] 77.9 kg (171 lb 12.8 oz) Hemodynamic/Invasive Device Data (24 hrs): Pulmonary/Cardiac Hemodynamics Pulse (Heart Rate): 80 Neuro ICP/CPP Monitoring MAP (mmHg): 86 mmHg Neuro ICP/CPP Monitoring 2 MAP (mmHg): 86 mmHg Ventilation/Oxygen Therapy (24hrs): Oxygen Therapy O2 Sat (%): 98 % O2 Device: room air Oxygen Concentration (%): 21 Lines/Drains/Airways/Wounds: Patient Lines/Drains/Airways Status Active Lines, Drains, Airways, & Wound Overview Name: Placement date: Placement time: Site: Days: Peripheral IV Line - Single Lumen 10/04/181944 cephalic vein (lateral side of arm), right 20 gauge;1 1/4 in length 10/04/181944 6 Peripheral IV Line - Single Lumen 10/04/181947 cephalic vein (lateral side of arm), right 20 gauge;1 1/4 in length 10/04/181947 6 Incision 1126 Right hip 1126 Wound 06/05/14 1400 Left shoulder 06/05/14 1400 1588 Wound (Adult, Pediatric) 10/08/18 1101 coccyx dermatitis 10/08/18 1101 3 Fluid Management (24hrs): -Intake/Output last 3 shifts: I/O last 3 completed shifts: In: 740 [P.O.:740] Out: 1625 [Urine:1625] PHYSICAL EXAM General: somewhat tired appearing, but alert, appears stated age, pleasant and cooperative, NAD, sitting in bedside chair HEENT: Normocephalic and atraumatic Neck: Neck with full range of motion Cardio: RRR, + systolic murmur, head best at apex. JVD to clavicle Resp: Lungs clear to ausculation bilaterally, no w/r/r, no increased work of breathing, no use of accessory muscles Abdomen: Soft, non-tender, non-distended Ext: No cyanosis, no clubbing or cyanosis, no peripheral edema, extremities are warm and dry Neuro: A&O, no focal deficits, moving all extremities spontaneously, appropriate responses to questions Skin: No rashes or lesions, no jaundice DIAGNOSTIC RESULTS/PROCEDURES ABGs CBC WBC/Hgb/Hct/Plts: 6.35/13.0/38.6/184 (10/11 455) Chem 7(PMC) Bun/Creat/Cl/CO2/Glucose: 39/2.03/96/24/121 (10/11 455-10/11 611) Na/K+/Phos/Mg/Ca: 132/3.7/--/2.0/-- (10/11 7588) Coags Additional Labs Lab Results Component Value Date BNP 525 (H) 10/03/2018 BNP 109 (H) 07/06/2016 BNP 577 (H) 06/03/2014 Lab Results Component Value Date TROP 0.06 10/04/2018 TROP 0.06 10/03/2018 TROP 0.06 10/02/2018 Lab Results Component Value Date CHOLESTEROL 150 03/30/2011 TRIG 107 03/30/2011 HDL 43 (L) 03/30/[address] head 10/04/2018: Small mildly hyperdense extra-axial collection/soft tissue overlying the left anterior frontal lobe. It is unclear whether this represents a small subdural hematoma versus chronic dural thickening. If clinically indicated, short-term follow-up is suggested to ensure stability. Last echocardiogram (TTE): 10/03/2018: LVEF 30-35%. Grade II diastolic dysfunction. RVSP 49. Mild to mod MR, mild TR. Last ischemic eval: 03/15/2016: Unchanged from prior, widely patent vein grafts to LAD and right PDA ASSESSMENT AND PLAN Dong Marcano is a 78 y.o. 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 Continue hydralazine 25 mg TID - GDMT: - Beta blockade: Continue Toprol-XL 25 mg daily (changing from coreg due to some hypotension). - ACEi / ARB: None - Statin: Atorvastatin 10 mg daily - ASA: 81 mg daily - ICD: HADOOP INFRASTRUCTURE ARCHITECT-D - Etiology workup: - Ischemia: EKG, trops, TTE - Arrhythmia: Pacer interrogation - Cardiac rehab consult - Palliative c/s to help with goals and disease expectations. Appreciate help. Paroxysmal A fib: [id number] 5. - s/p AVN ablation on 10/04/2018 - Consider outpatient WATCHMAN eval per EP - Continue ASA. Hold Plavix for now - Hold dofetilide with worsened renal funciton - Continue mexilitine. Complicated cystitis: Dirty UA in male patient. Pt denies any urinary symptoms and no hematuria on 10/06 after starting therapy. No fevers/chills. - Urine culture pending - Ceftriaxone 1g q24h Acute respiratory insufficiency: Resolved. Suspect due to pulmonary edema. Monitor with diuresis. Concern for subacute subdural hematoma in setting of seizure history: No acute bleeding process, butwill defer further anticoagulation based on NSGY recs. NSGY recommending f/u in clinic in 2 weeks w/repeat CT head if restarting plavix - [id number], but continue holding plavix - Continue keppra - seizure precautions in place JASPER on CKD III c/b hyperkalemia: Suspect due to cardiorenal syndrome, improving with diuresis. - diuresis as above - Avoid nephrotoxins, renally dose meds, trend chem H/o VT: Continue mexilitine Amiodarone-induced hypothyroidism: TSH WNL H/o seizures: Continue Keppra 500 mg BID, seizure precautions HTN: Continue Imdur XL 30 mg daily Echo diagnoses: Mild to mod MR. Mild TR. Mild protein calorie malnutrition: Lab Results Component Value Date ALBUMIN 3.3 (L) 10/03/2018 ASPEN: Decreased muscle mass, decreased subcutaneous tissue FEN/GI: DIET CARDIAC - VERY LOW SODIUM Soft; Carb Controlled PPX: sqh ACCESS: PIV CODE: FULL DISPO: pending SNF placement (denied by insurance but family hopes to appeal). This plan was discussed with the attending director special education for heart failure. Humza Becerra, DO Associated attestation - Sulma Reese MD - 10/11/2018 2:27 PM ESTAttending Physician Note I saw and personally examined the patient today with the resident and fellow on heart failure roundson 10/11/18 at 1000. I discussed the symptoms and exam findings, results of testing and therapeutic plan with the resident. I agree with the history, physical examination, and medical decisions as outlined in the progress note, and I have edited the note in its essential parts to reflect my plan for this patient. Sulma Reese M.D. Professor of Clinical Internal Medicine Advanced Heart Failure and Transplant Program [facility] [email or web address] [phone] fax [phone] Rachell Mansfield - 10/11/2018 10:18 AM ESTFormatting of this note may be different from the original. Inpatient Cardiac Rehab Follow Up Visit AND Activity Session Completed. RN approved, as tolerated, and patient agreeable to visit. Patient reports feeling well this morning, without complaints. Activity/Level of Assistance amb in jennings/SBA/4ww Ambulation Distance (feet) 400-- 1 standing break Symptoms Noted During/After Activity fatigue Positioning Sitting in chair, call light within reach RN notified/aware. Encouraged continued ambulation and discussed appropriate activity progression. Discharge education reviewed with the patient. Patient???s questions/concerns addressed. Rachell Mansfield, MS [phone] IP Cardiopulmonary and Vascular Rehab Segun HayesDARRYN - 10/11/2018 9:48 AM ESTFormatting of this note may be different from the original. Acute Care Physical Therapy Treatment Note Per the supervising therapist, the current therapy frequency and discharge recommendations are as follows: Recommendations: Dong Marcano is safe to return to their prior environment from a mobility aspect with initial increased supervision from spouse and home health PT. ?? Frequency: 5x/wk 10/11/18 0948 Subjective RN Approved Intervention as tolerated Existing Precautions/Restrictions fall Subjective Reports Patient denied pain and agreed to treatment. Reported he just completed walking 400 feet with cardiac rehab. Cognitive Status Examination Orientation Status (Cognition) oriented x 4 Level of Consciousness alert;cooperative Able to Follow Commands (Communication) WNL Personal Safety and Judgment intact Vision corrective lenses needed General Pain Documentation (Adult, OB, Peds) Presence of Pain denies pain/discomfort Objective Therapeutic Interventions Patient seated in chair. Sit to stand with supervision. Ambulated 300 feet with a two wheeled walker and standby assist. No losses of balance or shortness of breath noted.During ambulation, ascended and descended 4 stairs with bilateral handrails and contact guard assist. Used a step to pattern. Upon room entry, stand to sit with supervision. Sit to stand with supervision. Performed standing bilateral lower extremity exercises in all planes x 20 repetitions. Standto sit with supervision. Remained seated in chair with call light in reach. Assessment VTE Prevention/Management (ambulation promoted) Progress toward goals Worked towards progressing sit to stand, ambulation, stair, and exercise goals. Plan Plan for next visit Home exercise program. Charges: Gait x 1 TP x 1 Time in: 48 Time out: 1012 Segun (Rexamrita) TRAE [place] License # [id number] Yen Hobbs LISW-Diana - 10/11/2018 9:36 AM ESTPlacement Plan Expected Discharge Date: 10/11/2018 Referred Level of Care: SNF Barriers: Precert Current Referrals and Status 1. [facility] - Accepted; Awaiting precert - spoke with Zahida in admissions ([phone]) to check on status of precert. Zahida reports they have not yet heard anything and she will contact them after her morning meeting to check on status. CCM updated. will continue to follow. HUMERA Gonzalez (covering for service ) Cardiothoracic Transplant #[id number] Michael Sanders MD - 10/10/2018 9:28 PM BREN plan of care. Patient symptomatic improving as is renal function. Restart Tikosyn when renal function stabilized. Please arrange for outpatient follow up with Dr. Calel or available partners of EP for outpatientconsideration of Watchman (information provider to patient about YARA TOO trial yesterday). Will sign off. Please call with any questions. Michael Sanders MD Fellow, Cardiovascular Medicine Pager: [phone] Humza Becerra, - 10/10/2018 12:37 PM ESTFormatting of this note may be different from the original. CHF/ACS/HRT1 PROGRESS NOTE IDENTIFYING INFORMATION PATIENT: Dong Marcano ADMIT DATE: 10/02/2018 TIME OF EVALUATION: 10/10/2018 12:37 PM INTERVAL HISTORY Past 24 hours reviewed, RICCARDO events. - Continues to do well off dobutamine. Ambulating halls with physical therapy. Feeling great. Denies chest pain, dyspnea, fever, chills. Agreeable to SNF placement, waiting on precert. PAST MEDICAL, SURGICAL, FAMILY, AND SOCIAL HISTORY Past Medical History: Diagnosis Date ??? Anemia ??? Anemia ??? Arrhythmia ??? Atrial arrhythmia ??? CAD (coronary artery disease) ??? Chronic kidney disease (CKD) 07/07/2016 ??? Congestive heart failure, unspecified (HCC) ??? Diabetes ??? GERD (gastroesophageal reflux disease) ??? Heart attack x 2 ??? Hyperlipidemia ??? Hypertension ??? Hypothyroidism ??? Ischemic cardiomyopathy ??? OA (osteoarthritis) ??? XOCHITL (obstructive sleep apnea) ??? Pacemaker ??? Restless leg syndrome ??? Vascular disease ??? VT (ventricular tachycardia) (HCC) Past Surgical History: Procedure Laterality Date ??? INTERCARDIAC VT ABLATION N/A 01/03/2017 Laterality: N/A; Surgeon: Abe Finch MD; Location: [facility] EP ??? CARDIAC VEIN ELECTRODE PLACEMENT FOR LV PACING N/A 06/05/2014 Laterality: N/A; Surgeon: Saturnino Oquendo MD; Location: [facility] ??? ICD PLACEMENT N/A 06/05/2014 Laterality: N/A; Surgeon: Saturnino Oquendo MD; Location: [facility] ??? ARTHROPLASTY HIP TOTAL 11/07/2011 Laterality: Right; Surgeon: Sudarshan Carr MD;; Location: [facility] ??? HEART CATHETERIZATION 03/31/2011 ??? AICD, DUAL CHAMBER 2009 ??? CORONARY ARTERY BYPASS GRAFT 2009 ??? CHOLECYSTECTOMY 2008 ??? AICD, DUAL CHAMBER 2005 ??? CORONARY ARTERY BYPASS GRAFT 1988 ??? COLONOSCOPY ??? HEART CATHETERIZATION ??? KNEE CARTILAGE SURGERY ??? KNEE SURGERY medial collteral Family History Problem Relation Age of Onset ??? Myocardial Infarction Mother ??? Hypertension Mother ??? Diabetes Mother ??? Myocardial Infarction Father ??? Hypertension Father ??? Diabetes Maternal Grandmother ??? Anesth Problems Neg Hx Social History Social History ??? Marital status: Spouse name: N/A ??? Number of children: N/A ??? Years of education: N/A Social History Main Topics ??? Smoking status: Former Smoker Packs/day: 0.50 Years: 5.00 Types: Cigarettes Quit date: 10/29/1963 ??? Smokeless tobacco: Never Used ??? Alcohol use 3.5 oz/week 7 Standard drinks or equivalent per week Comment: Occasional ??? Drug use: No ??? Sexual activity: Yes Partners: Female Other Topics Concern ??? Not on file Social History Narrative ??? No narrative on file MEDICATIONS SCHEDULED: aspirin 81 mg Daily atorvastatin 10 mg Daily bumetanide 1 mg Q24H bumetanide 2 mg Daily cefTRIAXone (ROCEPHIN) IVPB 1 g Q24H heparin 5,000 Units Q8H hydrALAzine 25 mg Q8H insulin lispro 4x daily w/meals, HS isosorbide mononitrate 60 mg Daily levetiracetam 1,000 mg Q12H levothyroxine 50 mcg Daily metoprolol succinate 25 mg Daily mexiletine 150 mg Q8H Ranolazine 1,000 mg Q12H rOPINIRole 2 mg QHS FLUIDS/DRIPS: PRNs: dextrose 7.5-25 g As directed PRN And glucose 1-2 Tube As directed PRN docusate 100 mg BID PRN magnesium oxide 800 mg As directed PRN magnesium oxide 800 mg As directed PRN nitroGLYCERIN 0.4 mg PRN ondansetron 4mg/2ml 4 mg Q6H PRN Or ondansetron 4 mg Q6H PRN potassium chloride 40-60 mEq As directed PRN sodium chloride 0.9% 250 mL PRN sodium chloride 0.9% 500 mL As directed PRN ALLERGIES: He is allergic to amiodarone; demerol; and spironolactone. PRIOR TO ARRIVAL MEDS: Prior to Admission Medications Prescriptions Last Dose Informant Patient Reported? Taking? Lactobacillus (PROBIOTIC ACIDOPHILUS PO) More than a month at Unknown time Yes No Sig: take 1 tablet by mouth daily.. LevETIRAcetam (KEPPRA PO) 10/02/2018 at Unknown time Significant Other Yes Yes Sig: Take 750 mg by mouth 2 times daily. Verified with and med list from [facility] that dose is 750mg BID Magnesium Oxide (MAG-OX 400 PO) 10/02/2018 at Unknown time Yes Yes Sig: take 1 tablet by mouth daily.. Potassium Chloride ER 20 MEQ Tab CR 10/02/2018 at Unknown time Yes Yes Sig: take 1 tablet by mouth three times a week.. Ranolazine 1000 MG PO tab SR 10/02/2018 at Unknown time Yes Yes Sig: take 1 Tab by mouth 2 times daily. aspirin 81 MG Chew Tab 10/02/2018 at Unknown time No Yes Sig: take 1 tablet by mouth daily.. atorvastatin 10 MG Tab 10/02/2018 at Unknown time Yes Yes Sig: take 10 mg by mouth daily.. bumetanide 1 MG Tab 10/02/2018 at Unknown time Yes Yes Sig: take 1 mg by mouth 2 times daily.. carveDILOL 12.5 MG Tab 10/02/2018 at Unknown time Yes Yes Sig: take 18.75 mg by mouth 2 times daily.. clonazePAM 1 MG Tab More than a month at Unknown time Yes No Sig: take 1 mg by mouth 2 times daily as needed.. clopidogrel (PLAVIX) 75 MG PO TABS 10/02/2018 at Unknown time Yes Yes Sig: take 1 Tab by mouth daily every morning. dofetilide 250 MCG capsule 10/02/2018 at Unknown time No Yes Sig: take 1 capsule by mouth every 12 hours.. If 3 doses are missed, contact the prescribing senior hydrogeologist as soon as possible. isosorbide mononitrate 60 MG Tab SR 24 HR 10/02/2018 at Unknown time Self Yes Yes Sig: Take 30 mg by mouth daily every morning. levothyroxine 25 MCG PO TABS 10/02/2018 at Unknown time Self Yes Yes Sig: Take 100 mcg by mouth daily. metolazone 2.5 MG Tab Past Week at Unknown time Yes Yes Sig: take 2.5 mg by mouth as needed (Taking 2-3 times per week alternating with potassium per PCP).. mexiletine 150 MG Cap 10/02/2018 at Unknown time No Yes Sig: take 1 capsule by mouth every 12 hours.. Patient taking differently: Take 150 mg by mouth every 8 hours. Verified with med list from [facility] patient that dose is 150mg TID multivitamin w/ minerals PO TABS More than a month at Unknown time Yes No Sig: take 1 Tab by mouth daily. nitroGLYCERIN (NITROSTAT) 0.4 MG SL tablet Unknown at Unknown time Yes No Si Tab by Sublingual route as needed. rOPINIRole 1 MG Tab 10/01/2018 at Unknown time Yes Yes Sig: take 2 mg by mouth 2 times daily.. 8pm and 11pm sitaGLIPtin 50 MG Tab tablet Yes Yes Sig: Take 50 mg by mouth daily. Facility-Administered Medications: None REVIEW OF SYSTEMS ROS As per HPI OBJECTIVE FINDINGS Vital Signs (24hrs): Temp: [96 ??F (35.6 ??C)-98 ??F (36.7 ??C)] 97.6 ??F (36.4 ??C) Pulse (Heart Rate): [80-82] 80 Resp Rate: [15-20] 16 BP: (108-131)/(57-72) 108/57 O2 Sat (%): [96 %-100 %] 97 % Weight: [79.7 kg (175 lb 9.6 oz)] 79.7 kg (175 lb 9.6 oz) Hemodynamic/Invasive Device Data (24 hrs): Pulmonary/Cardiac Hemodynamics Pulse (Heart Rate): 80 Neuro ICP/CPP Monitoring MAP (mmHg): 74 mmHg Neuro ICP/CPP Monitoring 2 MAP (mmHg): 74 mmHg Ventilation/Oxygen Therapy (24hrs): Oxygen Therapy O2 Sat (%): 97 % O2 Device: CPAP CPAP (cm H2O): (home machine) CPAP/BiPAP Review of Appropriate Use: no contraindications identified Oxygen Concentration (%): 21 Lines/Drains/Airways/Wounds: Patient Lines/Drains/Airways Status Active Lines, Drains, Airways, & Wound Overview Name: Placement date: Placement time: Site: Days: Peripheral IV Line - Single Lumen 10/04/181944 cephalic vein (lateral side of arm), right 20 gauge;1 1/4 in length 10/04/181944 5 Peripheral IV Line - Single Lumen 10/04/181947 cephalic vein (lateral side of arm), right 20 gauge;1 1/4 in length 10/04/181947 5 Incision 1126 Right hip 1126 Wound 06/05/14 1400 Left shoulder 06/05/14 1400 1587 Wound (Adult, Pediatric) 10/08/18 1101 coccyx dermatitis 10/08/18 1101 2 Fluid Management (24hrs): -Intake/Output last 3 shifts: I/O last 3 completed shifts: In: 1460 [P.O.:1460] Out: 1650 [Urine:1650] PHYSICAL EXAM General: somewhat tired appearing, but alert, appears stated age, pleasant and cooperative, NAD, sitting in bedside chair HEENT: Normocephalic and atraumatic Neck: Neck with full range of motion Cardio: RRR, + systolic murmur, head best at apex. JVD to clavicle Resp: Lungs clear to ausculation bilaterally, no w/r/r, no increased work of breathing, no use of accessory muscles Abdomen: Soft, non-tender, non-distended Ext: No cyanosis, no clubbing or cyanosis, no peripheral edema, extremities are warm and dry Neuro: A&O, no focal deficits, moving all extremities spontaneously, appropriate responses to questions Skin: No rashes or lesions, no jaundice DIAGNOSTIC RESULTS/PROCEDURES ABGs CBC WBC/Hgb/Hct/Plts: 7.42/13.3/38.8/176 (10/10 150) Chem 7(PMC) Bun/Creat/Cl/CO2/Glucose: 39/2.26/93/27/230 (10/10 150-10/10 1059) Na/K+/Phos/Mg/Ca: 132/3.9/--/2.3/-- (10/10 150) Coags Additional Labs Lab Results Component Value Date BNP 525 (H) 10/03/2018 BNP 109 (H) 07/06/2016 BNP 577 (H) 06/03/2014 Lab Results Component Value Date TROP 0.06 10/04/2018 TROP 0.06 10/03/2018 TROP 0.06 10/02/2018 Lab Results Component Value Date CHOLESTEROL 150 03/30/2011 TRIG 107 03/30/2011 HDL 43 (L) 03/30/[address] head 10/04/2018: Small mildly hyperdense extra-axial collection/soft tissue overlying the left anterior frontal lobe. It is unclear whether this represents a small subdural hematoma versus chronic dural thickening. If clinically indicated, short-term follow-up is suggested to ensure stability. Last echocardiogram (TTE): 10/03/2018: LVEF 30-35%. Grade II diastolic dysfunction. RVSP 49. Mild to mod MR, mild TR. Last ischemic eval: 03/15/2016: Unchanged from prior, widely patent vein grafts to LAD and right PDA ASSESSMENT AND PLAN Dong Marcano is a 78 y.o. 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 Continue hydralazine 25 mg TID - GDMT: - Beta blockade: Continue Toprol-XL 25 mg daily (changing from coreg due to some hypotension). - ACEi / ARB: None - Statin: Atorvastatin 10 mg daily - ASA: 81 mg daily - ICD: HADOOP INFRASTRUCTURE ARCHITECT-D - Etiology workup: - Ischemia: EKG, trops, TTE - Arrhythmia: Pacer interrogation - Cardiac rehab consult - Palliative c/s to help with goals and disease expectations. Appreciate help. Paroxysmal A fib: [id number] 5. - s/p AVN ablation on 10/04/2018 - Consider outpatient WATCHMAN eval per EP - Continue ASA. Hold Plavix for now - Hold dofetilide with worsened renal funciton - Continue mexilitine. Complicated cystitis: Dirty UA in male patient. Pt denies any urinary symptoms and no hematuria on 10/06 after starting therapy. No fevers/chills. - Urine culture pending - Ceftriaxone 1g q24h Acute respiratory insufficiency: Resolved. Suspect due to pulmonary edema. Monitor with diuresis. Concern for subacute subdural hematoma in setting of seizure history: No acute bleeding process, butwill defer further anticoagulation based on NSGY recs. NSGY recommending f/u in clinic in 2 weeks w/repeat CT head if restarting plavix - [id number], but continue holding plavix - Continue keppra - seizure precautions in place JASPER on CKD III c/b hyperkalemia: Suspect due to cardiorenal syndrome, improving with diuresis. - diuresis as above - Avoid nephrotoxins, renally dose meds, trend chem H/o VT: Continue mexilitine Amiodarone-induced hypothyroidism: TSH WNL H/o seizures: Continue Keppra 500 mg BID, seizure precautions HTN: Continue Imdur XL 30 mg daily Echo diagnoses: Mild to mod MR. Mild TR. Mild protein calorie malnutrition: Lab Results Component Value Date ALBUMIN 3.3 (L) 10/03/2018 ASPEN: Decreased muscle mass, decreased subcutaneous tissue FEN/GI: DIET CARDIAC - VERY LOW SODIUM Soft; Carb Controlled PPX: sqh ACCESS: PIV CODE: FULL DISPO: pending SNF placement This plan was discussed with the attending director special education for heart failure. Humza Becerra, DO Associated attestation - Sulma Reese MD - 10/10/2018 3:43 PM ESTAttending Physician Note I saw and personally examined the patient today with the resident and fellow on heart failure roundson 10/10/18 at 1000. I discussed the symptoms and exam findings, results of testing and therapeutic plan with the resident. I agree with the history, physical examination, and medical decisions as outlined in the progress note, and I have edited the note in its essential parts to reflect my plan for this patient. Sulma Reese M.D. Professor of Clinical Internal Medicine Advanced Heart Failure and Transplant Program [facility] [email or web address] ph [phone] fax [phone] Ama Hannah RN - 10/10/2018 11:01 AM ESTFinal Discharge Planning and Transportation Final Discharge Planning Patient Discharged To: (Facility LOC/Home Service(s): Shelter Facility Community Agency Name(s): [employer] Supplies Name: [place] Plan Patient/Family In Agreement With Plan: yes Plan Comments: Pt plans to discharge to SNF for rehab-PT/OT. and family in agreement. F/U appointments made as indicated by team Transportation Transfer Mode: wheelchair Mode of Transfer: private vehicle Accompanied By: family member Ama Hannah RN Clinical Hack Saw [place] [address] Kalli Cassidy LISWS - 10/10/2018 9:05 AM ESTSW received message from patient's that she has selected [facility] as her first choice for SNF, with [facility] as second choice. SW initiated referral to [facility] ([phone], [phone]) and awaiting response; per team patient likely will be medically ready tomorrow so SW will inform [facility] to start precert (if they can accept). Kalli RODRÍGUEZkadie, [phone] Update 1200: SW received call from [facility], they have accepted patient and will start precert; they are aware patient will likely be medically ready for discharge tomorrow. Update 1400: SW met with patient's and updated her that [facility] has accepted patient and started precert; we discussed the possibility (in all cases) that precert can be denied and if so, a homegoing plan will be devised. Patient's tearful today as patient was experiencing some mental status changes (bedside RN aware and evaluated patient, reported incident to team), and she worries what would happen if patient would have to discharge home (versus SNF). SW provided support and assured her we would develop and safe plan together. Hopefully precert will be obtained and patient will ableto discharge to SNF.Jamar Hung APRN-CNP - 10/09/2018 4:17 PM ESTPalliative Note Dong Willams Davina??is a 78 y.o.??male??with a history of HFrEF (EF 30-35%) 2/2 ICM s/p HADOOP INFRASTRUCTURE ARCHITECT-D; Afib with RVR (s/p AV node ablation); CKD; and seizures secondary to prior L SDH. He is on an inotrope with hope to wean prior to discharge. Palliative Medicine has been consulted for goals of care. Goals were discussed on initial palliative consult on 10/07. Please see note of Dr. Lanier and Dr. Gerardo. Current goals are clearly defined for disease- directed therapy. Recommend follow up in Palliative Cardiology Clinic with Dr. Carlo White for ongoing goals discussion as condition and treatment evolve. Palliative Medicine will sign off case for now. Please reconsult if additional palliative issues come up during this inpatient stay. Case discussed with Palliative Attending Dr. Lanier and with Dr. Christi Todd of 1. JESSICA Madison 10/09/2018 Carmen Gentile 10/09/2018 2:30 PM ESTFormatting of this note may be different from the original. Inpatient Cardiac Rehab Follow Up Visit AND Activity Session Completed. RN approved, as tolerated, and patient agreeable to visit. Patient reports feeling well without complaints. Activity Session: Activity/Level of Assistance amb in jennings/assistX1/gait belt/2ww/chair follow Ambulation Distance (feet) 250 Symptoms Noted During/After Activity none Positioning Sitting in chair, call light within reach RN notified/aware. Encouraged continued ambulation and discussed appropriate activity progression. Discharge education reviewed with the patient. Patient???s questions/concerns addressed. Carmen Gentile, MS IP Cardiovascular and Pulmonary Rehab Donald Tello LISW - 10/09/2018 11:45 AM ESTPalliative SW met patient and family in room for continued support. Patient was eating lunch and wasbeing visited by his spouse, brother in law and sister in law. Patient endorses feeling much better than a week ago and being ready to go to a SNF to build strength. Patient's spouse, Lyly reports being overwhelmed with having to choose a SNF, (although reports an inability to care for patient at home at this moment), especially due to the fact that the facilitiesthat she would normally choose in [facility] are not on list provided by Sw within patient's insurance network. Sw validated her feelings and encouraged soliciting assistance from her family. Lyly states her son will be looking in to SNF's available and SW discussed the subjective nature of the review process and how people are more likely to leave a poor review if they are unhappy than a good review when they are satisfied. Sw encouraged self care and discussed the impact of visitors on patient's rehab and possibly the facilities staff attentiveness. Discussed the different level of care to manage expectations. Lyly has a good support system of family who will continue to be helpful in the future. Family thanked TAYLOR for visit and SW wish all well. SW normalized and validated feelings, provided active listening and emotional support. MARCOS Johnson-S, [phone] duran, PIO - 10/09/2018 11:07 AM EST Formatting of this note may be different from the original. Occupational Therapy Treatment Note Frequency: 5x/week Discharge Recommendations: Dong Willams Davina would benefit from continued OT services with 24 hour supervision needed for self care and safety needs. 10/09/18 1107 Subjective RN Approved Intervention as tolerated Existing Precautions/Restrictions cardiac;fall Subjective Reports Pt agreeable to OT session Cognitive Status Examination Orientation Status (Cognition) oriented x 4 Level of Consciousness alert;cooperative Able to Follow Commands (Communication) WFL Personal Safety and Judgment impaired;other (see comments) (mild safety deficits noted) General Pain Documentation (Adult, OB, Peds) Presence of Pain denies pain/discomfort Balance Skills Assessment, Rehab Eval Sitting Balance: Static good balance Sitting Balance: Dynamic good balance Ags-Py-Zhisf Balance fair balance Standing Balance: Static (fair +) Standing Balance: Dynamic fair balance Bed Mobility Skill: Supine to Sit, Rehab Eval Level of [place]: Supine/Sit stand-by assist Physical Assist/Nonphysical Assist: Supine/Sit 1 person assist Transfer Skill: Sit To Stand, Rehab Eval [place] (Sit-Stand Transfers) (SBA) Physical Assist/Nonphysical Assist: Sit/Stand 1 person assist;set-up required;supervision Bathing Level of [place] contact guard Physical Assist/Nonphysical Assist 1 person assist;supervision;set-up required Grooming [place] Level (Grooming) contact guard assist Physical Assist/Nonphysical Assist 1 person assist;supervision;set-up required Lower Body Dressing Level of [place] stand-by assist Physical Assist/Nonphysical Assist 1 person assist;supervision;set-up required CURRENT -[facility] Daily Activity Inpatient Short Form Putting on/Taking Off Lower Body Clothing 3 - A Little Assistance Bathing 3 - A Little Assistance Toileting 3 - A Little Assistance Putting on/Taking Off Upper Body Clothing 3 - A Little Assistance Grooming 3 - A Little Assistance Eating 4 - No Assistance CURRENT AM-[facility] Activity Raw Score 19 CURRENT AM-[facility] Activity Functional Limitation/Modifier 42.80% Currently Impaired in Daily Activity -CK Assessment VTE Prevention/Management (ambulation promoted) Assessment Narrative Pt making good progress towards goals. Increased activity tolerance with functional mobility this date. Completes self-care regimen with contact guard assist and fair balance this date. Discharge Recommendations OT role, plan of care Clinical Impression Patient Instruction OT role, plan of care Rehab Potential (OT Eval) good, to achieve stated therapy goals Therapy Frequency 5 times a week OT Therapy Completed Yes Today's Treatment Included Pt presents seated agreeable to OT Performed sit to stand transfer with SBA and 2WW plus verbal cues for safety with transfer Pt completed functional mobility task household distance throughout halls to simulate navigating home environment for ADL needs with SBA to contact guard and 2WW. Pt with short standing rest breaks/verbal cues to listen to body. Upon return, transferred to sinkside SBA Performed modified bathing regimen with contact guard assist for tasks challenging dynamic standing balance (reaching, bending) Pt grooms in standing position (oral care, hair washing) with SBA Returned to recliner following session with SBA and 2WW. Cues for safe management of device. Left all needs met call light in reach Continue care plan yes Goals Discussed risk / benefits with patient Therapist Recommendations At Discharge Recommendations OT Services recommended at Discharge Plan Plan Narrative OT to follow [id number] Charges: SCx1, TAx1 Wendy Ninodelorissusana, OTR/L Pager #[phone] License #[id number] Upon discontinuation of Acute Care Occupational Therapy Services or patient discharge from the hospital this note represents the current Occupational Therapy Discharge Summary. Kalli Cassidy LISWS - 10/09/2018 10:53 AM ESTSW met with patient and family in room to discuss SNF placement at discharge; family torn about taking patient home versus SNF and want to know team's recommendation. SW advised family that per teamSNF is indicated to continue medical monitoring as well as improve rehabilitation. Patient states hedoes feel he is below his baseline when it comes to physical conditioning, and appears agreeable to going to SNF. Patient's states the last time they went home it was too soon and he ended up back in the hospital; SW explained going to SNF as a transition may help with preventing readmission. SW provided patient an in network list of SNFs in their area as well as information about our close provider facilities; family are going to review lists and notify SW of their facility choice. Will follow. Kalli ortiz, [phone], - 10/09/2018 9:29 AM ESTFormatting of this note may be different from the original. CHF/ACS/HRT1 PROGRESS NOTE IDENTIFYING INFORMATION PATIENT: Dong Marcano ADMIT DATE: 10/02/2018 TIME OF EVALUATION: 10/09/2018 9:29 AM INTERVAL HISTORY Past 24 hours reviewed, RICCARDO events. - Weaned off dobutamine yesterday, continues to do well. Ambulating halls with physical therapy. Feeling much improved and telling jokes in room. Denies chest pain, dyspnea, fever, chills. Agreeable toSNF placement. PAST MEDICAL, SURGICAL, FAMILY, AND SOCIAL HISTORY Past Medical History: Diagnosis Date ??? Anemia ??? Anemia ??? Arrhythmia ??? Atrial arrhythmia ??? CAD (coronary artery disease) ??? Chronic kidney disease (CKD) 07/07/2016 ??? Congestive heart failure, unspecified (HCC) ??? Diabetes ??? GERD (gastroesophageal reflux disease) ??? Heart attack x 2 ??? Hyperlipidemia ??? Hypertension ??? Hypothyroidism ??? Ischemic cardiomyopathy ??? OA (osteoarthritis) ??? XOCHITL (obstructive sleep apnea) ??? Pacemaker ??? Restless leg syndrome ??? Vascular disease ??? VT (ventricular tachycardia) (HCC) Past Surgical History: Procedure Laterality Date ??? INTERCARDIAC VT ABLATION N/A 01/03/2017 Laterality: N/A; Surgeon: Abe Finch MD; Location: [facility] EP ??? CARDIAC VEIN ELECTRODE PLACEMENT FOR LV PACING N/A 06/05/2014 Laterality: N/A; Surgeon: Saturnino Oquendo MD; Location: [facility] ??? ICD PLACEMENT N/A 06/05/2014 Laterality: N/A; Surgeon: Saturnino Oquendo MD; Location: [facility] ??? ARTHROPLASTY HIP TOTAL 11/07/2011 Laterality: Right; Surgeon: Sudarshan Carr MD;; Location: [facility] ??? HEART CATHETERIZATION 03/31/2011 ??? AICD, DUAL CHAMBER 2009 ??? CORONARY ARTERY BYPASS GRAFT 2009 ??? CHOLECYSTECTOMY 2008 ??? AICD, DUAL CHAMBER 2004 ??? CORONARY ARTERY BYPASS GRAFT 1988 ??? COLONOSCOPY ??? HEART CATHETERIZATION ??? KNEE CARTILAGE SURGERY ??? KNEE SURGERY medial collteral Family History Problem Relation Age of Onset ??? Myocardial Infarction Mother ??? Hypertension Mother ??? Diabetes Mother ??? Myocardial Infarction Father ??? Hypertension Father ??? Diabetes Maternal Grandmother ??? Anesth Problems Neg Hx Social History Social History ??? Marital status: Spouse name: N/A ??? Number of children: N/A ??? Years of education: N/A Social History Main Topics ??? Smoking status: Former Smoker Packs/day: 0.50 Years: 5.00 Types: Cigarettes Quit date: 10/29/1963 ??? Smokeless tobacco: Never Used ??? Alcohol use 3.5 oz/week 7 Standard drinks or equivalent per week Comment: Occasional ??? Drug use: No ??? Sexual activity: Yes Partners: Female Other Topics Concern ??? Not on file Social History Narrative ??? No narrative on file MEDICATIONS SCHEDULED: aspirin 81 mg Daily atorvastatin 10 mg Daily bumetanide 1 mg Daily cefTRIAXone (ROCEPHIN) IVPB 1 g Q24H heparin 5,000 Units Q8H hydrALAzine 25 mg Q8H insulin lispro 4x daily w/meals, HS isosorbide mononitrate 60 mg Daily levetiracetam 1,000 mg Q12H levothyroxine 100 mcg Daily metoprolol succinate 25 mg Daily Ranolazine 1,000 mg Q12H rOPINIRole 2 mg QHS FLUIDS/DRIPS: PRNs: dextrose 7.5-25 g As directed PRN And glucose 1-2 Tube As directed PRN docusate 100 mg BID PRN magnesium oxide 800 mg As directed PRN magnesium oxide 800 mg As directed PRN nitroGLYCERIN 0.4 mg PRN ondansetron 4mg/2ml 4 mg Q6H PRN Or ondansetron 4 mg Q6H PRN potassium chloride 40-60 mEq As directed PRN sodium chloride 0.9% 250 mL PRN sodium chloride 0.9% 500 mL As directed PRN ALLERGIES: He is allergic to amiodarone; demerol; and spironolactone. PRIOR TO ARRIVAL MEDS: Prior to Admission Medications Prescriptions Last Dose Informant Patient Reported? Taking? Lactobacillus (PROBIOTIC ACIDOPHILUS PO) More than a month at Unknown time Yes No Sig: take 1 tablet by mouth daily.. LevETIRAcetam (KEPPRA PO) 10/02/2018 at Unknown time Significant Other Yes Yes Sig: Take 750 mg by mouth 2 times daily. Verified with and med list from [facility] that dose is 750mg BID Magnesium Oxide (MAG-OX 400 PO) 10/02/2018 at Unknown time Yes Yes Sig: take 1 tablet by mouth daily.. Potassium Chloride ER 20 MEQ Tab CR 10/02/2018 at Unknown time Yes Yes Sig: take 1 tablet by mouth three times a week.. Ranolazine 1000 MG PO tab SR 10/02/2018 at Unknown time Yes Yes Sig: take 1 Tab by mouth 2 times daily. aspirin 81 MG Chew Tab 10/02/2018 at Unknown time No Yes Sig: take 1 tablet by mouth daily.. atorvastatin 10 MG Tab 10/02/2018 at Unknown time Yes Yes Sig: take 10 mg by mouth daily.. bumetanide 1 MG Tab 10/02/2018 at Unknown time Yes Yes Sig: take 1 mg by mouth 2 times daily.. carveDILOL 12.5 MG Tab 10/02/2018 at Unknown time Yes Yes Sig: take 18.75 mg by mouth 2 times daily.. clonazePAM 1 MG Tab More than a month at Unknown time Yes No Sig: take 1 mg by mouth 2 times daily as needed.. clopidogrel (PLAVIX) 75 MG PO TABS 10/02/2018 at Unknown time Yes Yes Sig: take 1 Tab by mouth daily every morning. dofetilide 250 MCG capsule 10/02/2018 at Unknown time No Yes Sig: take 1 capsule by mouth every 12 hours.. If 3 doses are missed, contact the prescribing senior hydrogeologist as soon as possible. isosorbide mononitrate 60 MG Tab SR 24 HR 10/02/2018 at Unknown time Self Yes Yes Sig: Take 30 mg by mouth daily every morning. levothyroxine 25 MCG PO TABS 10/02/2018 at Unknown time Self Yes Yes Sig: Take 100 mcg by mouth daily. metolazone 2.5 MG Tab Past Week at Unknown time Yes Yes Sig: take 2.5 mg by mouth as needed (Taking 2-3 times per week alternating with potassium per PCP).. mexiletine 150 MG Cap 10/02/2018 at Unknown time No Yes Sig: take 1 capsule by mouth every 12 hours.. Patient taking differently: Take 150 mg by mouth every 8 hours. Verified with med list from [facility] patient that dose is 150mg TID multivitamin w/ minerals PO TABS More than a month at Unknown time Yes No Sig: take 1 Tab by mouth daily. nitroGLYCERIN (NITROSTAT) 0.4 MG SL tablet Unknown at Unknown time Yes No Si Tab by Sublingual route as needed. rOPINIRole 1 MG Tab 10/01/2018 at Unknown time Yes Yes Sig: take 2 mg by mouth 2 times daily.. 8pm and 11pm sitaGLIPtin 50 MG Tab tablet Yes Yes Sig: Take 50 mg by mouth daily. Facility-Administered Medications: None REVIEW OF SYSTEMS ROS As per HPI OBJECTIVE FINDINGS Vital Signs (24hrs): Temp: [96.4 ??F (35.8 ??C)-97.8 ??F (36.6 ??C)] 96.4 ??F (35.8 ??C) Pulse (Heart Rate): [79-81] 80 Resp Rate: [15-18] 16 BP: (101-125)/(56-66) 112/57 O2 Sat (%): [95 %-98 %] 95 % Weight: [79.3 kg (174 lb 13.2 oz)] 79.3 kg (174 lb 13.2 oz) Hemodynamic/Invasive Device Data (24 hrs): Pulmonary/Cardiac Hemodynamics Pulse (Heart Rate): 80 Neuro ICP/CPP Monitoring MAP (mmHg): 78 mmHg Neuro ICP/CPP Monitoring 2 MAP (mmHg): 78 mmHg Ventilation/Oxygen Therapy (24hrs): Oxygen Therapy O2 Sat (%): 95 % O2 Device: room air Lines/Drains/Airways/Wounds: Patient Lines/Drains/Airways Status Active Lines, Drains, Airways, & Wound Overview Name: Placement date: Placement time: Site: Days: Peripheral IV Line - Single Lumen 10/04/181944 cephalic vein (lateral side of arm), right 20 gauge;1 1/4 in length 10/04/181944 4 Peripheral IV Line - Single Lumen 10/04/181947 cephalic vein (lateral side of arm), right 20 gauge;1 1/4 in length 10/04/181947 4 Incision 1126 Right hip 1126 Wound 06/05/14 1400 Left shoulder 06/05/14 1400 1586 Wound (Adult, Pediatric) 10/08/18 1101 coccyx dermatitis 10/08/18 1101 less than 1 Sheath (CV Access Device) 10/04/18 1713 Venous 8 Fr 11 cm Right femoral Label 1 10/04/18 1713 femoral 4 Fluid Management (24hrs): -Intake/Output last 3 shifts: I/O last 3 completed shifts: In: 1275.3 [P.O.:1180; I.V.:9.9; IV Piggyback:85.4] Out: 875 [Urine:875] PHYSICAL EXAM General: somewhat tired appearing, but alert, appears stated age, pleasant and cooperative, NAD, sitting in bedside chair HEENT: Normocephalic and atraumatic Neck: Neck with full range of motion Cardio: RRR, + systolic murmur, head best at apex. JVD to clavicle Resp: Lungs clear to ausculation bilaterally, no w/r/r, no increased work of breathing, no use of accessory muscles Abdomen: Soft, non-tender, non-distended Ext: No cyanosis, no clubbing or cyanosis, no peripheral edema, extremities are warm and dry Neuro: A&O, no focal deficits, moving all extremities spontaneously, appropriate responses to questions Skin: No rashes or lesions, no jaundice DIAGNOSTIC RESULTS/PROCEDURES ABGs CBC WBC/Hgb/Hct/Plts: 7.05/13.0/37.9/166 (10/08 2302) Chem 7(PMC) Bun/Creat/Cl/CO2/Glucose: 42/2.14/93/28/124 (10/09 443-10/09 615) Na/K+/Phos/Mg/Ca: 131/4.1/--/2.3/-- (10/08 2302-10/09 443) Coags Additional Labs Lab Results Component Value Date BNP 525 (H) 10/03/2018 BNP 109 (H) 07/06/2016 BNP 577 (H) 06/03/2014 Lab Results Component Value Date TROP 0.06 10/04/2018 TROP 0.06 10/03/2018 TROP 0.06 10/02/2018 Lab Results Component Value Date CHOLESTEROL 150 03/30/2011 TRIG 107 03/30/2011 HDL 43 (L) 03/30/[address] head 10/04/2018: Small mildly hyperdense extra-axial collection/soft tissue overlying the left anterior frontal lobe. It is unclear whether this represents a small subdural hematoma versus chronic dural thickening. If clinically indicated, short-term follow-up is suggested to ensure stability. Last echocardiogram (TTE): 10/03/2018: LVEF 30-35%. Grade II diastolic dysfunction. RVSP 49. Mild to mod MR, mild TR. Last ischemic eval: 03/15/2016: Unchanged from prior, widely patent vein grafts to LAD and right PDA ASSESSMENT AND PLAN Dong Marcano is a 78 y.o. male with a history of HFrEF 2/2 ICM s/p HADOOP INFRASTRUCTURE ARCHITECT-D, Afib with RVR (ASA, clopidogrel), amiodarone-induced thyroiditis, recurrent VT/atrial arrhythmias (S/p mexilitine, sotalol) whopresents with the following: Acute on chronic systolic and diastolic heart failure, c/b volume overload: etiology of acute failure: atrial fibrillation; etiology of chronic failure: ICM; volume status: hypervolemic - NYHA FC 4 - ACC Stage C - Diuresis: Bumex 1 mg BID - Inotropes: Off dobutamine - Vasodilation / Afterload reduction: Imdur XL 60 mg daily. Continue hydralazine 25 mg TID - GDMT: - Beta blockade: Start Toprol-XL 25 mg daily (changing from coreg due to some hypotension). - ACEi / ARB: None - Statin: Atorvastatin 10 mg daily - ASA: 81 mg daily - ICD: HADOOP INFRASTRUCTURE ARCHITECT-D - Etiology workup: - Ischemia: EKG, trops, TTE - Arrhythmia: Pacer interrogation - Cardiac rehab consult - Palliative c/s to help with goals and disease expectations. Appreciate help. Paroxysmal A fib: [id number] 5. - s/p AVN ablation on 10/04/2018 - Consider outpatient WATCHMAN eval per EP - Continue ASA. Hold Plavix for now - Hold dofetilide with worsened renal funciton - Continue mexilitine. Complicated cystitis: Dirty UA in male patient. Pt denies any urinary symptoms and no hematuria on 10/06 after starting therapy. No fevers/chills. - Urine culture pending - Ceftriaxone 1g q24h Acute respiratory insufficiency: Resolved. Suspect due to pulmonary edema. Monitor with diuresis. Concern for subacute subdural hematoma in setting of seizure history: No acute bleeding process, butwill defer further anticoagulation based on NSGY recs. NSGY recommending f/u in clinic in 2 weeks w/repeat CT head if restarting plavix - CLC19do, but continue holding plavix - Continue keppra - seizure precautions in place JASPER on CKD III c/b hyperkalemia: Suspect due to cardiorenal syndrome, improving with diuresis. - diuresis as above - Avoid nephrotoxins, renally dose meds, trend chem H/o VT: Continue mexilitine Amiodarone-induced hypothyroidism: TSH WNL H/o seizures: Continue Keppra 500 mg BID, seizure precautions HTN: Continue Imdur XL 30 mg daily Echo diagnoses - Mild to mod MR. Mild TR. Mild protein calorie malnutrition - Lab Results Component Value Date ALBUMIN 3.3 (L) 10/03/2018 ASPEN: Decreased muscle mass, decreased subcutaneous tissue FEN/GI: DIET CARDIAC - VERY LOW SODIUM Soft PPX: sqh ACCESS: PIV CODE: FULL DISPO: pending SNF placement This plan was discussed with the attending director special education for heart failure. Humza Becerra, DO Associated attestation - Sulma Reese MD - 10/09/2018 12:47 PM ESTAttending Physician Note I saw and personally examined the patient today with the resident and fellow on heart failure roundson 10/09/18 at 0900. I discussed the symptoms and exam findings, results of testing and therapeutic plan with the resident. I agree with the history, physical examination, and medical decisions as outlined in the progress note, and I have edited the note in its essential parts to reflect my plan for this patient. Sulma Reese M.D. Professor of Clinical Internal Medicine Advanced Heart Failure and Transplant Program [facility] [email or web address] ph [phone] fax [phone] Gal Posey, PT - 10/09/2018 8:43 AM ESTFormatting of this note may be different from the original. Acute Care Physical Therapy Treatment Note Recommendations: Dong Willams Davina would benefit at this time from continued PT services with 24 hour supervision needed for mobility needs. Frequency: 5x/wk 10/09/18 0843 Subjective RN Approved Intervention as tolerated Existing Precautions/Restrictions cardiac;fall Subjective Reports Pt agreeable to therapy Cognitive Status Examination Orientation Status (Cognition) oriented x 4 Level of Consciousness alert;cooperative Able to Follow Commands (Communication) WFL Personal Safety and Judgment impaired (mild safety deficits) General Pain Documentation (Adult, OB, Peds) Presence of Pain denies pain/discomfort Objective Therapeutic Interventions Pt received supine in bed and agreeable to therapy. Supine to sit with SBA and use of bed features. Pt performed sit to stand with SBA and cueing on hand placement. Pt ambulated 175 ft initially with CGA then progressing to SBA and use of the ww. Initially, pt demonstrated a flexed posture with increased distance from the front of the ww. Following cueing on ww positioning, pt demonstrated improved gait quality and balance but still demonstrates decreased step length.Pt also ascended/descended 4 steps with contact guard assist and use of bilat handrails. Pt ambulated back to the room and sat for a seated rest break. Pt performed sit to stands from the chair with SBA and use of the armrests for LE strengthening and endurance training. Pt performed 7 stands in 30sec and 5x sit to stand test in 19 sec. Sit to stands 5x3 repetitions also performed for strengthening. Concluded session in the chair with call light in reach and all needs met. Balance Skills Assessment, Rehab Eval Sitting Balance: Static good balance Sitting Balance: Dynamic good balance [id number] Balance fair balance Standing Balance: Static (fair +) Standing Balance: Dynamic fair balance Bed Mobility Skill: Supine to Sit, Rehab Eval Level of [place]: Supine/Sit stand-by assist Physical Assist/Nonphysical Assist: Supine/Sit 1 person assist;verbal cues;set- up required Transfer Skill: Sit To Stand, Rehab Eval [place] (Sit-Stand Transfers) (SBA) Physical Assist/Nonphysical Assist: Sit/Stand 1 person assist;verbal cues;set-up required Weight-Bearing Restrictions: Sit/Stand full weight-bearing Gait Skills, PT Eval Level of [place]: Gait stand-by assist Physical Assist/Nonphysical Assist: Gait 1 person assist;verbal cues;set-up required Weight-Bearing Restrictions: Gait full weight-bearing Assistive Device For Transfer: Gait 2 wheeled walker Gait Distance (175 ft) Gait Analysis, PT Eval Gait Pattern Used (step-through) Gait Deviations Identified (Gait) decreased dulce;decreased gait speed;decreased step length;festinating/shuffling;decreased heel strike Impairments Contributing To Gait Deviations impaired balance;decreased strength (decreased endurance) Stair Negotiation Level of [place]: Stair Negotiation contact guard Physical Assist/Nonphysical Assist: Stair Negotiation 1 person assist;verbal cues;set-up required Weight-Bearing Restrictions: Stair Negotiation full weight-bearing Assistive Device for Transfer: Stair Negotiation rails Number of stairs 4 Stair Railings present on both sides CURRENT AM-PAC Basic Mobility Inpatient Short Form Turning over in bed 4 - No Assistance Sitting/standing from chair 3 - A Little Assistance Moving from lying on back to sitting 3 - A Little Assistance Moving to and from bed to chair 3 - A Little Assistance Walk in hospital room 3 - A Little Assistance Climbing 3-5 steps with a railing 3 - A Little Assistance CURRENT [facility] Mobility Raw Score 19 CURRENT [facility] Mobility Functional Limitation/Modifier 41.77% Currently Impaired in Basic Mobility -CK [facility] Functional Limitation/Modifier 0.00% Projected Functional Impairment in Basic Mobility - CH Clinical Impression Criteria for Skilled Therapeutic Interventions Met (PT Eval) yes;treatment indicated PT Therapy Completed Yes Continue care plan yes Today's Treatment Included gait, transfer, and stair training; LE ther ex Assessment VTE Prevention/Management (ambulation promoted) Factors that modified this intervention Impaired dynamic balance, impaired gait quality; functional weakness Progress toward goals Significant improvement in gait distance and activity tolerance Plan Plan for next visit Progress gait quality and distance Maintain frequency yes Charges: Gtx1, TPx1 Time In: 0843 Time Out: 09 Upon discontinuation of Acute Care Physical Therapy Services or patient discharge from the hospitalthis note represents the current Physical Therapy Discharge Summary. Jerome Posey PT, DPT License Number # [id number] Pager # [phone] Ama Hannah RN - 10/09/2018 7:25 AM [id number] Progress Note Anticipated Discharge Plan as of 10/09/2018 7:25 AM Expected Discharge Date: 10/11/2018 Anticipated discharge disposition: Home with Assistance, Shelter Facility (discharge dispo remains undetermined at this time) Barriers to Discharge Barriers to Discharge: Complex Disposition Barriers to Discharge Comment : Medical stability Medical Milestone Medical Milestone : Team plans to re-initiate with Toprol around 10/09/2018 PT/OT recommending 24 hour supervision and PT/OT services 5x/week-will work w/ SW To see if SNF placement is needed. Will continue to follow for any discharge needs as admission progresses. Ama Hannah RN Clinical Hack Saw Operator [place] [address] Gabo Morgan MD - 10/08/2018 11:01 PM ESTBrief Progress Note Notified of asymptomatic runs of VT. Progressively longer and had up to 7-10 beats on last, 3 x while I was on the floor. Patient reports no symptoms. Will draw STAT labs to check electrolytes. Patientwith anaphylaxis to amiodarone. Will consider lidocaine if continues. 11:55 PM K at 3.4. Replacing, monitor clinically. Gabo Morgan MD IM/Peds PGY-2 Pager: [phone] Kalli Cassidy LISWS - 10/08/2018 3:44 PM ESTSW updated by team/immigration case worker patient may need SNF at discharge. Per PT/OT notes, patient requiring 24 hour supervision (which does not always mean SNF placement) at discharge but is also progressing well with goals today. Patient remains on dobutamine (team planning on weaning), so likely will behere a few more days. SW will discuss with team/immigration case worker on rounds tomorrow to determine if patient will need SNF placement. If he does, and patient agreeable to placement, he will require precert through [employer]. Kalli RODRÍGUEZ-diana, [id number], - 10/08/2018 2:10 PM ESTFormatting of this note may be different from the original. CHF/ACS/HRT1 PROGRESS NOTE IDENTIFYING INFORMATION PATIENT: Dong Marcano ADMIT DATE: 10/02/2018 TIME OF EVALUATION: 10/08/2018 2:10 PM INTERVAL HISTORY Past 24 hours reviewed, RICCARDO events. - Had two seizures yesterday evening, loaded with Keppra. Now feels much improved. No dyspnea, chestpain, fever, chills. - NN -2.2 L yesterday on Lasix gtt + dobutamine 2.5 mcg/kg/min. Recorded weights show he has lost 21lbs during admission. Reports his dry weight is around 181- 182 lbs, down to 176 lbs today. PAST MEDICAL, SURGICAL, FAMILY, AND SOCIAL HISTORY Past Medical History: Diagnosis Date ??? Anemia ??? Anemia ??? Arrhythmia ??? Atrial arrhythmia ??? CAD (coronary artery disease) ??? Chronic kidney disease (CKD) 07/07/2016 ??? Congestive heart failure, unspecified (HCC) ??? Diabetes ??? GERD (gastroesophageal reflux disease) ??? Heart attack x 2 ??? Hyperlipidemia ??? Hypertension ??? Hypothyroidism ??? Ischemic cardiomyopathy ??? OA (osteoarthritis) ??? XOCHITL (obstructive sleep apnea) ??? Pacemaker ??? Restless leg syndrome ??? Vascular disease ??? VT (ventricular tachycardia) (HCC) Past Surgical History: Procedure Laterality Date ??? INTERCARDIAC VT ABLATION N/A 01/03/2017 Laterality: N/A; Surgeon: Abe Finch MD; Location: [facility] ??? CARDIAC VEIN ELECTRODE PLACEMENT FOR LV PACING N/A 06/05/2014 Laterality: N/A; Surgeon: Saturnino Oquendo MD; Location: [facility] ??? ICD PLACEMENT N/A 06/05/2014 Laterality: N/A; Surgeon: Saturnino Oquendo MD; Location: [facility] ??? ARTHROPLASTY HIP TOTAL 11/07/2011 Laterality: Right; Surgeon: Sudarshan Carr MD;; Location: [facility] ??? HEART CATHETERIZATION 03/31/2011 ??? AICD, DUAL CHAMBER 2009 ??? CORONARY ARTERY BYPASS GRAFT 2009 ??? CHOLECYSTECTOMY 2008 ??? AICD, DUAL CHAMBER 2005 ??? CORONARY ARTERY BYPASS GRAFT 1988 ??? COLONOSCOPY ??? HEART CATHETERIZATION ??? KNEE CARTILAGE SURGERY ??? KNEE SURGERY medial collteral Family History Problem Relation Age of Onset ??? Myocardial Infarction Mother ??? Hypertension Mother ??? Diabetes Mother ??? Myocardial Infarction Father ??? Hypertension Father ??? Diabetes Maternal Grandmother ??? Anesth Problems Neg Hx Social History Social History ??? Marital status: Spouse name: N/A ??? Number of children: N/A ??? Years of education: N/A Social History Main Topics ??? Smoking status: Former Smoker Packs/day: 0.50 Years: 5.00 Types: Cigarettes Quit date: 10/29/1963 ??? Smokeless tobacco: Never Used ??? Alcohol use 3.5 oz/week 7 Standard drinks or equivalent per week Comment: Occasional ??? Drug use: No ??? Sexual activity: Yes Partners: Female Other Topics Concern ??? Not on file Social History Narrative ??? No narrative on file MEDICATIONS SCHEDULED: aspirin 81 mg Daily atorvastatin 10 mg Daily bumetanide 1 mg Daily cefTRIAXone (ROCEPHIN) IVPB 1 g Q24H heparin 5,000 Units Q8H hydrALAzine 25 mg Q8H isosorbide mononitrate 60 mg Daily levetiracetam 1,000 mg Q12H levothyroxine 100 mcg Daily Ranolazine 1,000 mg Q12H rOPINIRole 2 mg QHS FLUIDS/DRIPS: ??? DOBUTamine (DOBUTREX) Infusion 1 mcg/kg/min (10/08/18 8328) PRNs: docusate 100 mg BID PRN magnesium oxide 800 mg As directed PRN magnesium oxide 800 mg As directed PRN nitroGLYCERIN 0.4 mg PRN ondansetron 4mg/2ml 4 mg Q6H PRN Or ondansetron 4 mg Q6H PRN potassium chloride 40-60 mEq As directed PRN sodium chloride 0.9% 250 mL PRN sodium chloride 0.9% 500 mL As directed PRN ALLERGIES: He is allergic to amiodarone; demerol; meperidine and related; and spironolactone. PRIOR TO ARRIVAL MEDS: Prior to Admission Medications Prescriptions Last Dose Informant Patient Reported? Taking? Lactobacillus (PROBIOTIC ACIDOPHILUS PO) More than a month at Unknown time Yes No Sig: take 1 tablet by mouth daily.. LevETIRAcetam (KEPPRA PO) 10/02/2018 at Unknown time Significant Other Yes Yes Sig: Take 750 mg by mouth 2 times daily. Verified with and med list from [facility] that dose is 750mg BID Magnesium Oxide (MAG-OX 400 PO) 10/02/2018 at Unknown time Yes Yes Sig: take 1 tablet by mouth daily.. Potassium Chloride ER 20 MEQ Tab CR 10/02/2018 at Unknown time Yes Yes Sig: take 1 tablet by mouth three times a week.. Ranolazine 1000 MG PO tab SR 10/02/2018 at Unknown time Yes Yes Sig: take 1 Tab by mouth 2 times daily. aspirin 81 MG Chew Tab 10/02/2018 at Unknown time No Yes Sig: take 1 tablet by mouth daily.. atorvastatin 10 MG Tab 10/02/2018 at Unknown time Yes Yes Sig: take 10 mg by mouth daily.. bumetanide 1 MG Tab 10/02/2018 at Unknown time Yes Yes Sig: take 1 mg by mouth 2 times daily.. carveDILOL 12.5 MG Tab 10/02/2018 at Unknown time Yes Yes Sig: take 18.75 mg by mouth 2 times daily.. clonazePAM 1 MG Tab More than a month at Unknown time Yes No Sig: take 1 mg by mouth 2 times daily as needed.. clopidogrel (PLAVIX) 75 MG PO TABS 10/02/2018 at Unknown time Yes Yes Sig: take 1 Tab by mouth daily every morning. dofetilide 250 MCG capsule 10/02/2018 at Unknown time No Yes Sig: take 1 capsule by mouth every 12 hours.. If 3 doses are missed, contact the prescribing senior hydrogeologist as soon as possible. isosorbide mononitrate 60 MG Tab SR 24 HR 10/02/2018 at Unknown time Self Yes Yes Sig: Take 30 mg by mouth daily every morning. levothyroxine 25 MCG PO TABS 10/02/2018 at Unknown time Self Yes Yes Sig: Take 100 mcg by mouth daily. metolazone 2.5 MG Tab Past Week at Unknown time Yes Yes Sig: take 2.5 mg by mouth as needed (Taking 2-3 times per week alternating with potassium per PCP).. mexiletine 150 MG Cap 10/02/2018 at Unknown time No Yes Sig: take 1 capsule by mouth every 12 hours.. Patient taking differently: Take 150 mg by mouth every 8 hours. Verified with med list from [facility] patient that dose is 150mg TID multivitamin w/ minerals PO TABS More than a month at Unknown time Yes No Sig: take 1 Tab by mouth daily. nitroGLYCERIN (NITROSTAT) 0.4 MG SL tablet Unknown at Unknown time Yes No Si Tab by Sublingual route as needed. rOPINIRole 1 MG Tab 10/01/2018 at Unknown time Yes Yes Sig: take 2 mg by mouth 2 times daily.. 8pm and 11pm sitaGLIPtin 50 MG Tab tablet Yes Yes Sig: Take 50 mg by mouth daily. Facility-Administered Medications: None REVIEW OF SYSTEMS ROS As per HPI OBJECTIVE FINDINGS Vital Signs (24hrs): Temp: [97.5 ??F (36.4 ??C)-98 ??F (36.7 ??C)] 97.6 ??F (36.4 ??C) Pulse (Heart Rate): [80] 80 Resp Rate: [17-20] 18 BP: (101-144)/(59-73) 101/59 O2 Sat (%): [95 %-98 %] 98 % Hemodynamic/Invasive Device Data (24 hrs): Pulmonary/Cardiac Hemodynamics Pulse (Heart Rate): 80 Neuro ICP/CPP Monitoring MAP (mmHg): 75 mmHg Neuro ICP/CPP Monitoring 2 MAP (mmHg): 75 mmHg Ventilation/Oxygen Therapy (24hrs): Oxygen Therapy O2 Sat (%): 98 % O2 Device: room air CPAP/BiPAP Review of Appropriate Use: no contraindications identified Oxygen Concentration (%): 21 Lines/Drains/Airways/Wounds: Patient Lines/Drains/Airways Status Active Lines, Drains, Airways, & Wound Overview Name: Placement date: Placement time: Site: Days: Peripheral IV Line - Single Lumen 10/04/181944 cephalic vein (lateral side of arm), right 20 gauge;1 1/4 in length 10/04/181944 3 Peripheral IV Line - Single Lumen 10/04/181947 cephalic vein (lateral side of arm), right 20 gauge;1 1/4 in length 10/04/181947 3 Incision 1126 Right hip 1126 Wound 06/05/14 1400 Left shoulder 06/05/14 1400 1586 Wound (Adult, Pediatric) 10/08/18 1101 coccyx dermatitis 10/08/18 1101 less than 1 Sheath (CV Access Device) 10/04/18 1713 Venous 8 Fr 11 cm Right femoral Label 1 10/04/18 1713 femoral 3 Fluid Management (24hrs): -Intake/Output last 3 shifts: I/O last 3 completed shifts: In: 909.6 [P.O.:830; I.V.:79.6] Out: 1500 [Urine:1500] PHYSICAL EXAM General: somewhat tired appearing, but alert, appears stated age, pleasant and cooperative, NAD, sitting in bedside chair HEENT: Normocephalic and atraumatic Neck: Neck with full range of motion Cardio: RRR, + systolic murmur, head best at apex. JVD to clavicle Resp: Lungs clear to ausculation bilaterally, no w/r/r, no increased work of breathing, no use of accessory muscles Abdomen: Soft, non-tender, non-distended Ext: No cyanosis, no clubbing or cyanosis, no peripheral edema, extremities are warm and dry Neuro: A&O, no focal deficits, moving all extremities spontaneously, appropriate responses to questions Skin: No rashes or lesions, no jaundice DIAGNOSTIC RESULTS/PROCEDURES ABGs CBC WBC/Hgb/Hct/Plts: 7.53/13.7/40.1/176 (10/08 436) Chem 7(PMC) Bun/Creat/Cl/CO2/Glucose: 44/2.37/89/34/166 (10/08 436-10/08 608) Na/K+/Phos/Mg/Ca: 132/4.1/--/2.2/-- (10/08 436) Coags Additional Labs Lab Results Component Value Date BNP 525 (H) 10/03/2018 BNP 109 (H) 07/06/2016 BNP 577 (H) 06/03/2014 Lab Results Component Value Date TROP 0.06 10/04/2018 TROP 0.06 10/03/2018 TROP 0.06 10/02/2018 Lab Results Component Value Date CHOLESTEROL 150 03/30/2011 TRIG 107 03/30/2011 HDL 43 (L) 03/30/[address] head 10/04/2018: Small mildly hyperdense extra-axial collection/soft tissue overlying the left anterior frontal lobe. It is unclear whether this represents a small subdural hematoma versus chronic dural thickening. If clinically indicated, short-term follow-up is suggested to ensure stability. Last echocardiogram (TTE): 10/03/2018: LVEF 30-35%. Grade II diastolic dysfunction. RVSP 49. Mild to mod MR, mild TR. Last ischemic eval: 03/15/2016: Unchanged from prior, widely patent vein grafts to LAD and right PDA ASSESSMENT AND PLAN Dong Marcano is a 78 y.o. male with a history of HFrEF 2/2 ICM s/p HADOOP INFRASTRUCTURE ARCHITECT-D, Afib with RVR (ASA, clopidogrel), amiodarone-induced thyroiditis, recurrent VT/atrial arrhythmias (S/p mexilitine, sotalol) whopresents with the following: Acute on chronic systolic and diastolic heart failure, c/b volume overload: etiology of acute failure: atrial fibrillation; etiology of chronic failure: ICM; volume status: hypervolemic - NYHA FC 4 - ACC Stage C - Diuresis: Restart Bumex, start at 1 mg qd - Inotropes: Continue Dobutamine at 1 mcg/kg/min, wean as able - Vasodilation / Afterload reduction: Imdur XL 60 mg daily. Continue hydralazine 25 mg TID - GDMT: - Beta blockade: Hold carvedilol while on dobutamine, plan to re-initiate with Toprol around 10/09/2018 - ACEi / ARB: None - Statin: Atorvastatin 10 mg daily - ASA: 81 mg daily - ICD: HADOOP INFRASTRUCTURE ARCHITECT-D - Etiology workup: - Ischemia: EKG, trops, TTE - Arrhythmia: Pacer interrogation - Cardiac rehab consult - Palliative c/s to help with goals and disease expectations. Appreciate help. Paroxysmal A fib: [id number] 5. - s/p AVN ablation on 10/04/2018 - Consider outpatient WATCHMAN eval per EP - Continue ASA. Hold Plavix for now - Hold dofetilide with worsened renal funciton - Continue mexilitine. Complicated cystitis: Dirty UA in male patient. Pt denies any urinary symptoms and no hematuria on 10/06 after starting therapy. No fevers/chills. - Urine culture pending - Ceftriaxone 1g q24h Acute respiratory insufficiency: Resolved. Suspect due to pulmonary edema. Monitor with diuresis. Concern for subacute subdural hematoma in setting of seizure history: No acute bleeding process, butwill defer further anticoagulation based on NSGY recs. NSGY recommending f/u in clinic in 2 weeks w/repeat CT head if restarting plavix - [id number], but continue holding plavix - Continue keppra - seizure precautions in place JASPER on CKD III c/b hyperkalemia: Suspect due to cardiorenal syndrome, improving with diuresis. - diuresis as above - Avoid nephrotoxins, renally dose meds, trend chem H/o VT: Continue mexilitine Amiodarone-induced hypothyroidism: TSH WNL H/o seizures: Continue Keppra 500 mg BID, seizure precautions HTN: Continue Imdur XL 30 mg daily - Hold coreg while on dobut Echo diagnoses - Mild to mod MR. Mild TR. Mild protein calorie malnutrition - Lab Results Component Value Date ALBUMIN 3.3 (L) 10/03/2018 ASPEN: Decreased muscle mass, decreased subcutaneous tissue FEN/GI: DIET CARDIAC - VERY LOW SODIUM Soft PPX: sqh ACCESS: PIV CODE: FULL DISPO: HF1 This plan was discussed with the attending director special education for heart failure. Humza Becerra, DO Associated attestation - Sulma Reese MD - 10/08/2018 2:30 PM ESTAttending Physician Note I saw and personally examined the patient today with the resident and fellow on heart failure roundson 10/08/18 at 1330. I discussed the symptoms and exam findings, results of testing and therapeutic plan with the resident. I agree with the history, physical examination, and medical decisions as outlined in the progress note, and I have edited the note in its essential parts to reflect my plan for this patient. Sulma eRese M.D. Professor of Clinical Internal Medicine Advanced Heart Failure and Transplant Program [facility] [email or web address] ph [phone] fax [phone] Jihan Ham, Pharm Student - 10/08/2018 1:30 PM ESTFormatting of this note may be different from the original. Department of Pharmacy Admission Medication Reconciliation Note Patient: Dong Marcano Room/Bed: 6034/A I have reviewed the patient's home medication list and allergies with the following sources Contacted [facility] pharmacy ( ) and Patient recall without prompting. I have also reviewed this list with the pharmacist. All changes to the home medication list have been updated in [facility]. 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 Verified with and med list from [facility] that dose is 750mg BID Magnesium Oxide (MAG-OX 400 PO) Sig: take 1 tablet by mouth daily.. Ranolazine 1000 MG PO tab SR Sig: take 1 Tab by mouth 2 times daily. TRIAMCINOLONE ACETONIDE, TOP, 0.05 % Ointment Sig: Apply topically. aspirin 81 MG Chew Tab Sig: take 1 tablet by mouth daily.. atorvastatin 10 MG Tab Sig: take 10 mg by mouth daily.. bumetanide 1 MG Tab Sig: take 1 mg by mouth 2 times daily.. carveDILOL 12.5 MG Tab Sig: take 18.75 mg by mouth 2 times daily.. dofetilide 250 MCG capsule Sig: take 1 capsule by mouth every 12 hours.. If 3 doses are missed, contact the prescribing senior hydrogeologist as soon as possible. escitalopram (LEXAPRO) 5 MG Tab tablet Sig: Take 5 mg by mouth at bedtime. isosorbide mononitrate 60 MG Tab SR 24 HR Sig: Take 30 mg by mouth daily every morning. levothyroxine 50 MCG Tab tablet Sig: Take 100 mcg by mouth daily. metolazone 2.5 MG Tab Sig: take 2.5 mg by mouth as needed (Taking 2-3 times per week alternating with potassium per PCP).. mexiletine 150 MG Cap capsule Sig: Take 150 mg by mouth 3 times daily. potassium chloride 20 MEQ Tab CR tablet Sig: Take 20 mEq by mouth daily. rOPINIRole 1 MG Tab Sig: take 2 mg by mouth 2 times daily.. 8pm and 11pm rOPINIRole 4 MG Tab Sig: Take 4 mg by mouth at bedtime. At 8pm sitaGLIPtin 50 MG Tab tablet Sig: Take 50 mg by mouth daily. Facility-Administered Medications: None Added to Home Medications: - Levothyroxine 50 mcg: Take 100 mcg po daily. - Patient reports taking only 1 tablet (50 mcg) daily- has not filled since - Ropinirole 4 mg. Take 1 tablet po at 8 pm. Patient states that he takes 2 mg po twice daily at 8pmand 11pm. However Pharmacy has states that patient filled 4 mg tab in July and directions should 1 tablet daily at 8 pm. - Escitalopram 5mg: Take 1 at bedtime. ( Patient does not recall taking med. Pharmacy states patientfirst filled in August. ) - Triamcinolone Acetonide Top, 0.05% ointment. Deleted from Home Medications: - Clonazepam 1 mg tab: Take 1 mg po BID as needed. - Clopidogrel 75 mg: Take 1 tab po daily - Lactobacillus (Probiotic): Take 1 tablet by mouth daily - Levothyroxine 25 mcg - Multivitamin Tabs - Ropinirole 1 mg: Take 2 mg biy mouth 2 times daily. 8pm and 11 pm. Edits to Home Medications: N/A Other Comments: - Carvedilol 12.5 Mg Tab: Patient states he takes 1 Tab po BID not 1.5 tablets - Levetiracetam 750mg: Dose was recently increased from 500 mg to 750 mg. Pharmacy stated that patient has not picked up new prescription. (Patient is aware of dose increase but currently has 500 mg tablets at home. He plans to waste picker new medication as soon as possible.) - Magnesium Oxide 400 mg. Pt takes 1 tablet 3 times a week. - Mexiletine 150 mg Cap. Verified with pharmacist and patient. Directions should be TID. - Nitroglycerin 0.4 mg sl tablet. Patient has not used in a while. Needs new rx. - Verified Allergies - Entered Preferred Pharmacy Information. - Verified Adherence to medication (patient uses a pill box and has a nurse who stops by to help with refilling medications). Please feel free to contact me with any further questions. Name: Jihan Ham, PharmD Student Preceptor: Flex Nuñez PharmD Phone #: [phone] Date/Time: 10/08/2018 3:27 PM Time Spent: 45 minutes Joel Estrada PTA - 10/08/2018 10:55 AM ESTFormatting of this note may be different from the original. Acute Care Physical Therapy Treatment Note Per the supervising therapist, the current therapy frequency and discharge recommendations are as follows: Dong Willams Davina would benefit at this time from continued PT services with 24 hour supervision needed for mobility needs. ?? Frequency: 5x/wk 10/08/18 1055 Subjective RN Approved Intervention as tolerated Existing Precautions/Restrictions fall;cardiac Subjective Reports Pt up in bedside chair and agreeable to therapy Cognitive Status Examination Orientation Status (Cognition) oriented x 3 Level of Consciousness alert;cooperative Able to Follow Commands (Communication) WFL Personal Safety and Judgment impaired (decreased insight into deficits) General Pain Documentation (Adult, OB, Peds) Presence of Pain denies pain/discomfort Objective Therapeutic Interventions Patient encountered sitting in bedside chair with anti-skid socks donned and agreeable to therapy. Sit to stand from bedside chair to 4ww with stand-by assist and verbal cues for anterior weight shifting. Pt then ambulated 50' with 4ww, contact guard assist, extra time secondary to slow dulce and decreased toe-floor clearance and verbal cues for upright posture. Pt required a seated rest break on 4ww at this time secondary to SOB, fatigue and complaint of dizziness. Stand to sit on 4ww seat with minAx1. Rest break taken. Sit to stand from 4ww seat with Belkis x1. Pt then ambulated an additional 10' with same assist but with increased unsteadiness on feet and lateral LOB that required Belkis x1 from therapist to correct. Pt once more sat on 4ww seat with same assist. Pt taken back to room on 4ww. Pt then performed sit to stand and pivot back to bedside chair with contact guard to Belkis x1 and verbal cues for sequencing. Patient performed seated bilat LE active ROM exercises 1x10 in all available planes to improve strength necessary for ambulation and transfer efficiency. Therapist provided demonstration and verbal cues for technique. Left patient seated in bedside chair with all lines attached and intact, call light and all needs within reach upon PT departure. Notified RN of patient complaints, performance and positioning post session. Balance Skills Assessment, Rehab Eval Sitting Balance: Static good balance Sitting Balance: Dynamic good balance [place]-Hf-Jxe[place] Balance fair balance Standing Balance: Static fair balance (with 4ww) Standing Balance: Dynamic fair balance (with 4ww) Transfer Skill: Sit To Stand, Rehab Eval [place] (Sit-Stand Transfers) (stand-by assist) Physical Assist/Nonphysical Assist: Sit/Stand supervision;verbal cues;1 person assist Weight-Bearing Restrictions: Sit/Stand full weight-bearing Assistive Device For Transfer: Sit/Stand armed chair Transfer Skill: Stand To Sit, Rehab Eval Physical Assist/Nonphysical Assist: Stand/Sit verbal cues;supervision;1 person assist Gait Skills, PT Eval Level of [place]: Gait (contact guard to [place] x1) Physical Assist/Nonphysical Assist: Gait supervision;verbal cues;1 person assist Weight-Bearing Restrictions: Gait full weight-bearing Assistive Device For Transfer: Gait 4 wheeled walker Gait Distance (50 feet + 10 feet) Gait Analysis, PT Eval Gait Pattern Used (step-through) Gait Deviations Identified (Gait) decreased dulce;decreased gait speed;decreased heel strike;decreased step length;decreased stride length;decreased weight shifting;festinating/shuffling Impairments Contributing To Gait Deviations impaired balance;impaired postural control;decreased strength;impaired coordination (decreased endurance, SOB) CURRENT AM-PAC Basic Mobility Inpatient Short Form Turning over in bed 3 - A Little Assistance Sitting/standing from chair 3 - A Little Assistance Moving from lying on back to sitting 3 - A Little Assistance Moving to and from bed to chair 3 - A Little Assistance Walk in hospital room 3 - A Little Assistance Climbing 3-5 steps with a railing 2 - A Lot of Assistance CURRENT AM-[facility] Mobility Raw Score 17 CURRENT AM-[facility] Mobility Functional Limitation/Modifier 50.57% Currently Impaired in Basic Mobility -CK Projected AM-[facility] Mobility Raw Score 24 Projected AM-[facility] Mobility Functional Limitation/Modifier 0.00% Projected Functional Impairment in Basic Mobility - CH Clinical Impression PT Therapy Completed Yes Continue care plan yes Today's Treatment Included transfers, gait training, active ROM Assessment VTE Prevention/Management (ambulated, active ROM) Factors that modified this intervention decreased strength/endurance, impaired balance, dizziness Progress toward goals fair progress toward PT goals Plan Plan for next visit continue per PT plan of care as tolerated Charges: TP x1 GT x1 In: 1055 Out: 1120 Joel Estrada PTA License #[id number] Pager: [phone] Upon discontinuation of Acute Care Physical Therapy Services or patient discharge from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 mg BID FLUIDS/DRIPS: ??? DOBUTamine (DOBUTREX) Infusion 2 mcg/kg/min (10/06/18 0600) ??? furosemide (LASIX) infusion 10 mg/hr (10/06/18 06) PRNs: docusate 100 mg BID PRN magnesium oxide 800 mg As directed PRN magnesium oxide 800 mg As directed PRN metolazone 2.5 mg PRN nitroGLYCERIN 0.4 mg PRN ondansetron 4mg/2ml 4 mg Q6H PRN Or ondansetron 4 mg Q6H PRN potassium chloride 40-60 mEq As directed PRN sodium chloride 0.9% 250 mL PRN sodium chloride 0.9% 500 mL As directed PRN ALLERGIES: He is allergic to amiodarone; demerol; meperidine and related; and spironolactone. PRIOR TO ARRIVAL MEDS: Prior to Admission Medications Prescriptions Last Dose Informant Patient Reported? Taking? Lactobacillus (PROBIOTIC ACIDOPHILUS PO) More than a month at Unknown time Yes No Sig: take 1 tablet by mouth daily.. LevETIRAcetam (KEPPRA PO) 10/02/2018 at Unknown time Significant Other Yes Yes Sig: Take 750 mg by mouth 2 times daily. Verified with and med list from [place] that dose is 750mg BID Magnesium Oxide (MAG-OX 400 PO) 10/02/2018 at Unknown time Yes Yes Sig: take 1 tablet by mouth daily.. Potassium Chloride ER 20 MEQ Tab CR 10/02/2018 at Unknown time Yes Yes Sig: take 1 tablet by mouth three times a week.. Ranolazine 1000 MG PO tab SR 10/02/2018 at Unknown time Yes Yes Sig: take 1 Tab by mouth 2 times daily. aspirin 81 MG Chew Tab 10/02/2018 at Unknown time No Yes Sig: take 1 tablet by mouth daily.. atorvastatin 10 MG Tab 10/02/2018 at Unknown time Yes Yes Sig: take 10 mg by mouth daily.. bumetanide 1 MG Tab 10/02/2018 at Unknown time Yes Yes Sig: take 1 mg by mouth 2 times daily.. carveDILOL 12.5 MG Tab 10/02/2018 at Unknown time Yes Yes Sig: take 18.75 mg by mouth 2 times daily.. clonazePAM 1 MG Tab More than a month at Unknown time Yes No Sig: take 1 mg by mouth 2 times daily as needed.. clopidogrel (PLAVIX) 75 MG PO TABS 10/02/2018 at Unknown time Yes Yes Sig: take 1 Tab by mouth daily every morning. dofetilide 250 MCG capsule 10/02/2018 at Unknown time No Yes Sig: take 1 capsule by mouth every 12 hours.. If 3 doses are missed, contact the prescribing senior hydrogeologist as soon as possible. isosorbide mononitrate 60 MG Tab SR 24 HR 10/02/2018 at Unknown time Self Yes Yes Sig: Take 30 mg by mouth daily every morning. levothyroxine 25 MCG PO TABS 10/02/2018 at Unknown time Self Yes Yes Sig: Take 100 mcg by mouth daily. metolazone 2.5 MG Tab Past Week at Unknown time Yes Yes Sig: take 2.5 mg by mouth as needed (Taking 2-3 times per week alternating with potassium per PCP).. mexiletine 150 MG Cap 10/02/2018 at Unknown time No Yes Sig: take 1 capsule by mouth every 12 hours.. Patient taking differently: Take 150 mg by mouth every 8 hours. Verified with med list from [facility] patient that dose is 150mg TID multivitamin w/ minerals PO TABS More than a month at Unknown time Yes No Sig: take 1 Tab by mouth daily. nitroGLYCERIN (NITROSTAT) 0.4 MG SL tablet Unknown at Unknown time Yes No Si Tab by Sublingual route as needed. rOPINIRole 1 MG Tab 10/01/2018 at Unknown time Yes Yes Sig: take 2 mg by mouth 2 times daily.. 8pm and 11pm sitaGLIPtin 50 MG Tab tablet Yes Yes Sig: Take 50 mg by mouth daily. Facility-Administered Medications: None REVIEW OF SYSTEMS ROS As per HPI OBJECTIVE FINDINGS Vital Signs (24hrs): Temp: [97.5 ??F (36.4 ??C)-98.2 ??F (36.8 ??C)] 97.6 ??F (36.4 ??C) Pulse (Heart Rate): [80-99] 80 Resp Rate: [13-20] 19 BP: (103-136)/(55-76) 115/63 O2 Sat (%): [92 %-98 %] 92 % Weight: [80.9 kg (178 lb 5.6 oz)] 80.9 kg (178 lb 5.6 oz) Hemodynamic/Invasive Device Data (24 hrs): Pulmonary/Cardiac Hemodynamics Pulse (Heart Rate): 80 Neuro ICP/CPP Monitoring MAP (mmHg): 83 mmHg Neuro ICP/CPP Monitoring 2 MAP (mmHg): 83 mmHg Ventilation/Oxygen Therapy (24hrs): Oxygen Therapy O2 Sat (%): 92 % O2 Device: room air Flow (L/min): 2 Lines/Drains/Airways/Wounds: Patient Lines/Drains/Airways Status Active Lines, Drains, Airways, & Wound Overview Name: Placement date: Placement time: Site: Days: Peripheral IV Line - Single Lumen 10/04/181944 cephalic vein (lateral side of arm), right 20 gauge;1 1/4 in length 10/04/181944 1 Peripheral IV Line - Single Lumen 10/04/181947 cephalic vein (lateral side of arm), right 20 gauge;1 1/4 in length 10/04/181947 1 Incision 1126 Right hip 1126 Wound 06/05/14 1400 Left shoulder 06/05/14 1400 1583 Sheath (CV Access Device) 10/04/18 1713 Venous 8 Fr 11 cm Right femoral Label 1 12/07/18 1713 femoral 1 Fluid Management (24hrs): -Intake/Output last 3 shifts: I/O last 3 completed shifts: In: 1171.9 [P.O.:760; I.V.:369.7; IV Piggyback:42.3] Out: 4375 [Urine:4375] PHYSICAL EXAM General: somewhat tired appearing, but alert, appears stated age, pleasant and cooperative, NAD, sitting in bedside chair HEENT: Normocephalic and atraumatic Neck: Neck with full range of motion Cardio: RRR, + systolic murmur, head best at apex. + JVD decreased but still intermittently visible just below jawline Resp: Lungs clear to ausculation bilaterally, no w/r/r, no increased work of breathing, no use of accessory muscles Abdomen: Soft, non-tender, non-distended Ext: No cyanosis, no clubbing or cyanosis, Trace peripheral edema, extremities are warm and dry Neuro: A&O, no focal deficits, moving all extremities spontaneously, appropriate responses to questions Skin: No rashes or lesions, no jaundice DIAGNOSTIC RESULTS/PROCEDURES ABGs CBC WBC/Hgb/Hct/Plts: 9.79/12.4/37.0/135 (10/06 305) Chem 7(PMC) Bun/Creat/Cl/CO2/Glucose: 42/2.41/90/33/183 (10/06 305) Na/K+/Phos/Mg/Ca: 135/3.7/--/1.8/-- (10/06 305) Coags Additional Labs Lab Results Component Value Date BNP 525 (H) 10/03/2018 BNP 109 (H) 07/06/2016 BNP 577 (H) 06/03/2014 Lab Results Component Value Date TROP 0.06 10/04/2018 TROP 0.06 10/03/2018 TROP 0.06 10/02/2018 Lab Results Component Value Date CHOLESTEROL 150 03/30/2011 TRIG 107 03/30/2011 HDL 43 (L) 03/30/[address] head 10/04/2018: Small mildly hyperdense extra-axial collection/soft tissue overlying the left anterior frontal lobe. It is unclear whether this represents a small subdural hematoma versus chronic dural thickening. If clinically indicated, short-term follow-up is suggested to ensure stability. Last echocardiogram (TTE): 10/03/2018: LVEF 30-35%. Grade II diastolic dysfunction. RVSP 49. Mild to mod MR, mild TR. Last ischemic eval: 03/15/2016: Unchanged from prior, widely patent vein grafts to LAD and right PDA ASSESSMENT AND PLAN Dong Marcano is a 78 y.o. male with a history of HFrEF 2/2 ICM s/p HADOOP INFRASTRUCTURE ARCHITECT-D, Afib with RVR (ASA, clopidogrel), amiodarone-induced thyroiditis, recurrent VT/atrial arrhythmias (S/p mexilitine, sotalol) whopresents with the following: Acute on chronic systolic and diastolic heart failure, c/b volume overload: etiology of acute failure: atrial fibrillation; etiology of chronic failure: ICM; volume status: hypervolemic - NYHA FC 4 - ACC Stage C - Diuresis: Continue Lasix 10 mg/hr gtt, bolus as needed, goal net negative 1.5- 2L daily, 2L fluid restriction - Inotropes: Continue Dobutamine at 2 mcg/kg/min, can uptitrate as needed for improved UOP - Vasodilation / Afterload reduction: Imdur XL 30 mg daily, consider hydralazine, but will hold off today - GDMT: - Beta blockade: Hold carvedilol while on dobutamine - ACEi / ARB: None - Statin: Atorvastatin 10 mg daily - ASA: 81 mg daily - ICD: HADOOP INFRASTRUCTURE ARCHITECT-D - Etiology workup: - Ischemia: EKG, trops, TTE - Arrhythmia: Pacer interrogation - Cardiac rehab consult Paroxysmal A fib: [id number]. - s/p AVN ablation on 10/04/2018 - Consider outpatient WATCHMAN eval per EP - Continue ASA. Hold Plavix for now - Hold dofetilide with worsened renal funciton - Continue mexilitine. Complicated cystitis: Dirty UA in male patient. Pt denies any urinary symptoms and no hematuria on 10/06 after starting therapy. No fevers/chills. - Urine culture pending - Ceftriaxone 1g q24h Acute respiratory insufficiency: Resolved. Suspect due to pulmonary edema. Monitor with diuresis. Concern for subacute subdural hematoma in setting of seizure history: No acute bleeding process, butwill defer further anticoagulation based on NSGY recs. NSGY recommending f/u in clinic in 2 weeks w/repeat CT head if restarting plavix - [id number], but continue holding plavix - Continue keppra - seizure precautions in place JASPER on CKD III c/b hyperkalemia: Suspect due to cardiorenal syndrome, improving with diuresis. - diuresis as above - Avoid nephrotoxins, renally dose meds, trend chem H/o VT: Continue mexilitine Amiodarone-induced hypothyroidism: TSH WNL H/o seizures: Continue Keppra 500 mg BID, seizure precautions HTN: Continue Imdur XL 30 mg daily - Hold coreg while on dobut Echo diagnoses - Mild to mod MR. Mild TR. Mild protein calorie malnutrition - Lab Results Component Value Date ALBUMIN 3.3 (L) 10/03/2018 ASPEN: Decreased muscle mass, decreased subcutaneous tissue FEN/GI: DIET CARDIAC - VERY LOW SODIUM Soft PPX: sqh ACCESS: PIV CODE: FULL DISPO: HF1 This plan was discussed with the attending director special education for heart failure. Blayne Cartwright MD Associated attestation - Sulma Reese MD - 10/06/2018 12:50 PM ESTAttending Physician Note I saw and personally examined the patient today with the resident and fellow on heart failure roundson 10/06/18 at 0930. I discussed the symptoms and exam findings, results of testing and therapeutic plan with the resident. I agree with the history, physical examination, and medical decisions as outlined in the progress note, and I have edited the note in its essential parts to reflect my plan for this patient. Sulma Reese M.D. Professor of Clinical Internal Medicine Advanced Heart Failure and Transplant Program [facility] [email or web address] ph [phone] fax [phone] Saleem Snow MD - 10/05/2018 4:11 PM ESTFormatting of this note may be different from the original. EP FOLLOW-UP NOTE IDENTIFYING DATA PATIENT: Dong Marcano ADMIT DATE: 10/02/2018 HOSPITAL STAY: LOS: 3 days SUBJECTIVE Telemetry and ECGs were reviewed and revealed AF with NSVT. Over the last 24 hours the patient stated that he felt much better. Yesterday, he had a RHC that showed low CI, he is now on Dobutamine with improved diuresis. He also underwent AV ablation and appears to be bi-v pacing more. ASSESSMENT AND PLAN Dong Marcano is a 78 y.o. male with a past medical history of ischemic cardiomyopathy, HADOOP INFRASTRUCTURE ARCHITECT-D device,CABG X 2, HTN, ??recurrent heart failure, amiodarone-related thyroiditis, and has had recurrent episodes of VT as well as atrial arrhythmias. He is currently on Mexitil and Tikosyn. He is currently bein g treated for ADHF, EP is following for management of AF. He has the following active issues that are listed below: 1. AF with RVR 2. ADHF ?? Recommendations Overnight patient's creatinine bumped and them improved some and he has diureses 5 liters. He appears to be doing much better with inotrope on board and AV libby ablation. Agree with continued HF management. This consult was discussed with Dr. Calle, the attending physician. If you have any questions orneed any further information, please feel free to contact the EP Consult Service. Thank you for allowing us to participate in the care of Dong Marcano. Saleem Snow MD Electrophysiology Fellow Pager OBJECTIVE DATA Temp: [97.4 ??F (36.3 ??C)-97.8 ??F (36.6 ??C)] 97.6 ??F (36.4 ??C) Pulse (Heart Rate): [48-102] 80 Resp Rate: [13-20] 20 BP: (84-122)/(45-87) 114/60 O2 Sat (%): [95 %-100 %] 98 % Weight: [85.7 kg (188 lb 15 oz)] 85.7 kg (188 lb 15 oz) I/O last 3 completed shifts: In: 1581.3 [P.O.:1240; I.V.:305.7; IV Piggyback:35.7] Out: 6325 [Urine:6325] Oxygen Therapy: Oxygen Therapy O2 Sat (%): 98 % O2 Device: room air CPAP (cm H2O): (Home Settings) Flow (L/min): 2 Oxygen Concentration (%): 21 Physical Exam: General appearance - NAD Mental status - Alert and oriented x 4 Eyes - EOMI; sclera anicteric Mouth - MMM Neck - Supple; no thyromegaly or adenopathy; mild JVD detected Chest - mild crackles in bases Heart - tachycardic; no m/c/g/r; Nl S1 and S2 Abdomen - NT/ND; +BS Neurological - Moves all extremities spontaneously Extremities - 1+ edema Skin - Intact; no rashes or lesions noted LABS AND IMAGING Labs-CBC WBC/Hgb/Hct/Plts: 8.43/11.5/34.4/141 (10/05 1111) Labs-Chem 7 Bun/Creat/Cl/CO2/Glucose: 46/2.69/91/31/263 (10/05 1227) Na/K+/Phos/Mg/Ca: 131/5.1/--/2.1/-- (10/05 1227-10/05 1419) Labs-Liver Lab Results Component Value Date ALT 12 10/03/2018 AST 14 10/03/2018 ALKPHOS 108 10/03/2018 BILITOTAL 0.5 10/03/2018 BILIDIRECT 0.2 10/03/2018 Lab Results Component Value Date INR 1.1 10/03/2018 Associated attestation - Barrett Calle MD - 10/06/2018 7:14 AM EST Attending Physician Note I have personally interviewed and examined this patient with the EP Fellow on 10/05/18. I have reviewed the history and examination and edited these in the note above. I agree with the medical decision and components of the note as edited by me. Patient is alert and oriented and VS stable. He is feeling much better with significant diuresis overnight. The rhythm remains AF with complete AV block. Occasionally, we are observing a regular, accelerated junctional rhythm over the PPM which is likely related to use of dobutamine. When renal dysfunction improved, would resume the Tikosyn and mexiletine. Barrett Calle MD, [facility], [place] Theresa Chen Chair in Cardiac Electrophysiology Deputy Director Of Nursing of Clinical Medicine [phone] Favian Francis MD - 10/05/2018 3:15 PM ESTNeurosurgery Update No further neurosurgical intervention is needed at this time. Please have the patient follow up withDr. Miller in clinic in 2 weeks with a repeat non contrast Head CT prior to appointment if plavix isrestarted. Please feel free to page or call with questions. [facility] Neurosurgery [id number] Becerra, DO - 10/05/2018 11:49 AM ESTFormatting of this note may be different from the original. CHF/ACS/HRT1 PROGRESS NOTE IDENTIFYING INFORMATION PATIENT: Dong Marcano ADMIT DATE: 10/02/2018 TIME OF EVALUATION: 10/05/2018 11:49 AM INTERVAL HISTORY Past 24 hours reviewed. Underwent AVN ablation yesterday, and he has since been feeling much much better. No chest pain, dyspnea, fever, chills. Appetite normal, and he has been sleeping reasonably well. NN -4 L yesterday with dobutamine and Lasix bolus + gtt. Creatinine slightly improving. Will remove jones in setting of complicated UTI PAST MEDICAL, SURGICAL, FAMILY, AND SOCIAL HISTORY Past Medical History: Diagnosis Date ??? Anemia ??? Anemia ??? Arrhythmia ??? Atrial arrhythmia ??? CAD (coronary artery disease) ??? Chronic kidney disease (CKD) 07/07/2016 ??? Congestive heart failure, unspecified (HCC) ??? Diabetes ??? GERD (gastroesophageal reflux disease) ??? Heart attack x 2 ??? Hyperlipidemia ??? Hypertension ??? Hypothyroidism ??? Ischemic cardiomyopathy ??? OA (osteoarthritis) ??? XOCHITL (obstructive sleep apnea) ??? Pacemaker ??? Restless leg syndrome ??? Vascular disease ??? VT (ventricular tachycardia) (HCC) Past Surgical History: Procedure Laterality Date ??? INTERCARDIAC VT ABLATION N/A 01/03/2017 Laterality: N/A; Surgeon: Abe Finch MD; Location: [facility] ??? CARDIAC VEIN ELECTRODE PLACEMENT FOR LV PACING N/A 06/05/2014 Laterality: N/A; Surgeon: Saturnino Oquendo MD; Location: [facility] ??? ICD PLACEMENT N/A 06/05/2014 Laterality: N/A; Surgeon: Saturnino Oquendo MD; Location: [facility] ??? ARTHROPLASTY HIP TOTAL 11/07/2011 Laterality: Right; Surgeon: Sudarshan Carr MD;; Location: [facility] ??? HEART CATHETERIZATION 03/31/2011 ??? AICD, DUAL CHAMBER 2009 ??? CORONARY ARTERY BYPASS GRAFT 2009 ??? CHOLECYSTECTOMY 2008 ??? AICD, DUAL CHAMBER 2004 ??? CORONARY ARTERY BYPASS GRAFT 1988 ??? COLONOSCOPY ??? HEART CATHETERIZATION ??? KNEE CARTILAGE SURGERY ??? KNEE SURGERY medial collteral Family History Problem Relation Age of Onset ??? Myocardial Infarction Mother ??? Hypertension Mother ??? Diabetes Mother ??? Myocardial Infarction Father ??? Hypertension Father ??? Diabetes Maternal Grandmother ??? Anesth Problems Neg Hx Social History Social History ??? Marital status: Spouse name: N/A ??? Number of children: N/A ??? Years of education: N/A Social History Main Topics ??? Smoking status: Former Smoker Packs/day: 0.50 Years: 5.00 Types: Cigarettes Quit date: 10/29/1963 ??? Smokeless tobacco: Never Used ??? Alcohol use 3.5 oz/week 7 Standard drinks or equivalent per week Comment: Occasional ??? Drug use: No ??? Sexual activity: Yes Partners: Female Other Topics Concern ??? Not on file Social History Narrative ??? No narrative on file MEDICATIONS SCHEDULED: aspirin 81 mg Daily atorvastatin 10 mg Daily cefTRIAXone (ROCEPHIN) IVPB 1 g Q24H heparin 5,000 Units Q8H isosorbide mononitrate 30 mg Daily levetiracetam 500 mg Q12H levothyroxine 100 mcg Daily mexiletine 150 mg Q8H Ranolazine 1,000 mg Q12H rOPINIRole 2 mg BID FLUIDS/DRIPS: ??? DOBUTamine (DOBUTREX) Infusion 2 mcg/kg/min (10/05/18 1100) ??? furosemide (LASIX) infusion 10 mg/hr (10/05/18 1100) PRNs: docusate 100 mg BID PRN magnesium oxide 800 mg As directed PRN magnesium oxide 800 mg As directed PRN metolazone 2.5 mg PRN nitroGLYCERIN 0.4 mg PRN ondansetron 4mg/2ml 4 mg Q6H PRN Or ondansetron 4 mg Q6H PRN potassium chloride 40-60 mEq As directed PRN sodium chloride 0.9% 250 mL PRN sodium chloride 0.9% 500 mL As directed PRN ALLERGIES: He is allergic to amiodarone; demerol; meperidine and related; and spironolactone. PRIOR TO ARRIVAL MEDS: Prior to Admission Medications Prescriptions Last Dose Informant Patient Reported? Taking? Lactobacillus (PROBIOTIC ACIDOPHILUS PO) More than a month at Unknown time Yes No Sig: take 1 tablet by mouth daily.. LevETIRAcetam (KEPPRA PO) 10/02/2018 at Unknown time Significant Other Yes Yes Sig: Take 750 mg by mouth 2 times daily. Verified with and med list from [place] that dose is 750mg BID Magnesium Oxide (MAG-OX 400 PO) 10/02/2018 at Unknown time Yes Yes Sig: take 1 tablet by mouth daily.. Potassium Chloride ER 20 MEQ Tab CR 10/02/2018 at Unknown time Yes Yes Sig: take 1 tablet by mouth three times a week.. Ranolazine 1000 MG PO tab SR 10/02/2018 at Unknown time Yes Yes Sig: take 1 Tab by mouth 2 times daily. aspirin 81 MG Chew Tab 10/02/2018 at Unknown time No Yes Sig: take 1 tablet by mouth daily.. atorvastatin 10 MG Tab 10/02/2018 at Unknown time Yes Yes Sig: take 10 mg by mouth daily.. bumetanide 1 MG Tab 10/02/2018 at Unknown time Yes Yes Sig: take 1 mg by mouth 2 times daily.. carveDILOL 12.5 MG Tab 10/02/2018 at Unknown time Yes Yes Sig: take 18.75 mg by mouth 2 times daily.. clonazePAM 1 MG Tab More than a month at Unknown time Yes No Sig: take 1 mg by mouth 2 times daily as needed.. clopidogrel (PLAVIX) 75 MG PO TABS 10/02/2018 at Unknown time Yes Yes Sig: take 1 Tab by mouth daily every morning. dofetilide 250 MCG capsule 10/02/2018 at Unknown time No Yes Sig: take 1 capsule by mouth every 12 hours.. If 3 doses are missed, contact the prescribing senior hydrogeologist as soon as possible. isosorbide mononitrate 60 MG Tab SR 24 HR 10/02/2018 at Unknown time Self Yes Yes Sig: Take 30 mg by mouth daily every morning. levothyroxine 25 MCG PO TABS 10/02/2018 at Unknown time Self Yes Yes Sig: Take 100 mcg by mouth daily. metolazone 2.5 MG Tab Past Week at Unknown time Yes Yes Sig: take 2.5 mg by mouth as needed (Taking 2-3 times per week alternating with potassium per PCP).. mexiletine 150 MG Cap 10/02/2018 at Unknown time No Yes Sig: take 1 capsule by mouth every 12 hours.. Patient taking differently: Take 150 mg by mouth every 8 hours. Verified with med list from [facility] patient that dose is 150mg TID multivitamin w/ minerals PO TABS More than a month at Unknown time Yes No Sig: take 1 Tab by mouth daily. nitroGLYCERIN (NITROSTAT) 0.4 MG SL tablet Unknown at Unknown time Yes No Si Tab by Sublingual route as needed. rOPINIRole 1 MG Tab 10/01/2018 at Unknown time Yes Yes Sig: take 2 mg by mouth 2 times daily.. 8pm and 11pm sitaGLIPtin 50 MG Tab tablet Yes Yes Sig: Take 50 mg by mouth daily. Facility-Administered Medications: None REVIEW OF SYSTEMS ROS As per HPI OBJECTIVE FINDINGS Vital Signs (24hrs): Temp: [97.4 ??F (36.3 ??C)-97.8 ??F (36.6 ??C)] 97.5 ??F (36.4 ??C) Pulse (Heart Rate): [48-205] 82 Resp Rate: [12-25] 20 BP: (84-122)/(45-87) 103/55 O2 Sat (%): [93 %-100 %] 95 % Weight: [85.7 kg (188 lb 15 oz)] 85.7 kg (188 lb 15 oz) Hemodynamic/Invasive Device Data (24 hrs): Pulmonary/Cardiac Hemodynamics Pulse (Heart Rate): 82 Neuro ICP/CPP Monitoring MAP (mmHg): 71 mmHg Neuro ICP/CPP Monitoring 2 MAP (mmHg): 71 mmHg Ventilation/Oxygen Therapy (24hrs): Oxygen Therapy O2 Sat (%): 95 % O2 Device: nasal cannula CPAP (cm H2O): (Home Settings) Flow (L/min): 2 Oxygen Concentration (%): 21 Lines/Drains/Airways/Wounds: Patient Lines/Drains/Airways Status Active Lines, Drains, Airways, & Wound Overview Name: Placement date: Placement time: Site: Days: Peripheral IV Line - Single Lumen 10/04/181944 cephalic vein (lateral side of arm), right 20 gauge;1 1/4 in length 10/04/181944 less than 1 Peripheral IV Line - Single Lumen 10/04/18 194 cephalic vein (lateral side of arm), right 20 gauge;1 1/4 in length 10/04/181947 less than 1 Indwelling Urethral Catheter 10/03/18 1211 100% silicone 16 10/03/18 1211 1 Incision 1126 Right hip 1126 Wound 06/05/14 1400 Left shoulder 06/05/14 1400 1582 Sheath (CV Access Device) 10/04/18 1713 Venous 8 Fr 11 cm Right femoral Label 1 10/04/18 1713 femoral less than 1 Fluid Management (24hrs): -Intake/Output last 3 shifts: I/O last 3 completed shifts: In: 1044 [P.O.:800; I.V.:208.4; IV Piggyback:35.7] Out: 4975 [Urine:4975] PHYSICAL EXAM General: Awake, alert, appears stated age, pleasant and cooperative, NAD HEENT: Normocephalic and atraumatic, clear oropharynx without exudates or erythema Neck: Neck with full range of motion,supple Cardio: V-paced appearing regular rhythm. + systolic murmur, head best at apex. + JVD up to near jawline Resp: Lungs clear to ausculation bilaterally, no w/r/r, no increased work of breathing, no use of accessory muscles Abdomen: Soft, non-tender, non-distended, no pulsatile masses, +BS Ext: No cyanosis, no clubbing or cyanosis, 2+ peripheral edema, extremities are cold and dry Neuro: A&O x4, appropriate responses to questions Skin: No rashes or lesions, no jaundice DIAGNOSTIC RESULTS/PROCEDURES ABGs CBC Chem 7(PMC) Bun/Creat/Cl/CO2/Glucose: 45/2.81/93/29/257 (10/05 309) Na/K+/Phos/Mg/Ca: 134/3.5/--/1.9/-- (10/05 309) Coags Additional Labs Lab Results Component Value Date BNP 525 (H) 10/03/2018 BNP 109 (H) 07/06/2016 BNP 577 (H) 06/03/2014 Lab Results Component Value Date TROP 0.06 10/04/2018 TROP 0.06 10/03/2018 TROP 0.06 10/02/2018 Lab Results Component Value Date CHOLESTEROL 150 03/30/2011 TRIG 107 03/30/2011 HDL 43 (L) 03/30/[address] head 10/04/2018: Small mildly hyperdense extra-axial collection/soft tissue overlying the left anterior frontal lobe. It is unclear whether this represents a small subdural hematoma versus chronic dural thickening. If clinically indicated, short-term follow-up is suggested to ensure stability. Last echocardiogram (TTE): 10/03/2018: LVEF 30-35%. Grade II diastolic dysfunction. RVSP 49. Mild to mod MR, mild TR. Last ischemic eval: 03/15/2016: Unchanged from prior, widely patent vein grafts to LAD and right PDA ASSESSMENT AND PLAN Dong Marcano is a 78 y.o. male with a history of HFrEF 2/2 ICM s/p HADOOP INFRASTRUCTURE ARCHITECT-D, Afib with RVR (ASA, clopidogrel), amiodarone-induced thyroiditis, recurrent VT/atrial arrhythmias (S/p mexilitine, sotalol) whopresents with the following: Acute on chronic systolic and diastolic heart failure, c/b volume overload: etiology of acute failure: atrial fibrillation; etiology of chronic failure: ICM; volume status: hypervolemic - NYHA FC 4 - ACC Stage C - Diuresis: Continue Lasix 10 mg/hr gtt, bolus as needed, goal net negative 1.5- 2L daily, 2L fluid restriction - Inotropes: Dobutamine at 2 mcg/kg/min, can uptitrate as needed for improved UOP - Vasodilation / Afterload reduction: Imdur XL 30 mg daily - GDMT: - Beta blockade: Hold carvedilol while on dobutamine - ACEi / ARB: None - Statin: Atorvastatin 10 mg daily - ASA: 81 mg daily - ICD: HADOOP INFRASTRUCTURE ARCHITECT-D - Etiology workup: - Ischemia: EKG, trops, TTE - Arrhythmia: Pacer interrogation - Cardiac rehab consult Paroxysmal A fib: [id number] 5. - s/p AVN ablation on 10/04/2018 - Consider outpatient WATCHMAN eval per EP - Continue ASA. Hold Plavix for now - Hold dofetilide with worsened renal funciton - Continue mexilitine. Complicated cystitis: Dirty UA in male patient. - Urine culture pending - Ceftriaxone Acute respiratory insufficiency: Suspect due to pulmonary edema. Monitor with diuresis. Concern for subacute subdural hematoma in setting of seizure history: No acute bleeding process, butwill defer further anticoagulation based on NSGY recs. - AC as above - Continue keppra JASPER on CKD III c/b hyperkalemia: Suspect due to cardiorenal syndrome - diuresis as above - Avoid nephrotoxins, renally dose meds, trend chem H/o VT: Continue mexilitine Amiodarone-induced hypothyroidism: TSH WNL H/o seizures: Continue Keppra 500 mg BID HTN: Continue Imdur XL 30 mg daily - Hold coreg while on dobut Echo diagnoses - Mild to mod MR. Mild TR. Mild protein calorie malnutrition - Lab Results Component Value Date ALBUMIN 3.3 (L) 10/03/2018 ASPEN: Decreased muscle mass, decreased subcutaneous tissue FEN/GI: DIET CARDIAC - VERY LOW SODIUM PPX: sqh ACCESS: PIV CODE: FULL DISPO: HF1 This plan was discussed with the attending director special education for heart failure. Humza Becerra, DO Associated attestation - Sulma Reese MD - 10/05/2018 3:17 PM ESTAttending Physician Note I saw and personally examined the patient today with the resident and fellow on heart failure roundson 10/05/18 at 1230. I discussed the symptoms and exam findings, results of testing and therapeutic plan with the resident. I agree with the history, physical examination, and medical decisions as outlined in the progress note, and I have edited the note in its essential parts to reflect my plan for this patient. Sulma Reese M.D. Professor of Clinical Internal Medicine Advanced Heart Failure and Transplant Program [facility] [email or web address] ph [phone] fax [phone] China Linda RN - 10/04/2018 4:15 PM ESTDischarge Note/[id number]: Discussed discharge plan with family; currently has [facility] (for fpc; discussed possibility of transitioning to preferred providers for specialty heart failure management. Family discussing and open to considering closer to discharge. Dobutamine started and planning for AVN RFA today per EP. Will continue to follow for discharge planning needs.Humza Becerra, DO - 10/04/2018 3:57 PM ESTFormatting of this note may be different from the original. CHF/ACS/HRT1 HISTORY AND PHYSICAL IDENTIFYING INFORMATION PATIENT: Dong Marcano ADMIT DATE: 10/02/2018 TIME OF EVALUATION: 10/04/2018 3:58 PM HISTORY OF PRESENT ILLNESS Dong Marcano is a 78 y.o. male with a past medical history of HFrEF 2/2 ICM (CABG 1988, 2001) s/p HADOOP INFRASTRUCTURE ARCHITECT-D, Afib with RVR (ASA, clopidogrel), amiodarone- induced thyroiditis, h/o recurrent VT/atrial arrhythmias (S/p mexilitine, sotalol), HTN, T2DM who presented with uncontrolled atrial fibrillation. He was found to be in acutely decompensated heart failure via physical exam, TTE, and labs. Diuresis initially attempted with Lasix boluses and metolazone. RHC performed to determine volume status, and it showed RA 15, RV 56/13, PA 63/33 (46), PCWP 27. CO/CI via [place] was 2.6/1.3. SVR ~2000. CHF was consulted, and it was recommended he be transitioned to the heart failure service for further management. He was also placed on dobutamine 2.5 mcg/kg/min. Today, he has been hemodynamically stable with SBPs in 90-110s, HR in 90s. Saturating well on 2LNC. Afebrile. He was started on dobutamine 2.5 mcg/kg/min around 3pm. UOP has picked up (no Lasix). UA from 10/04 demonstrates infection, pending culture. Potassium has been improving with diuresis. Generally feeling stable. He reports at baseline he is able to generally perform IADLs. Often ascends and descends ~13 stairs each day to get to and from his man cave. No change in amount of pillows used at night. Has chronicswelling, uses compression stockings. Does not wake up with leg swelling. No nausea, vomiting. HEART FAILURE HISTORY PCP Anabella Lomax Etiology of HF ICM Dry Weight Wt Readings from Last 3 Encounters: 10/04/18 89.6 kg (197 lb 8.5 oz) 01/30/17 88.5 kg (195 lb) 01/30/17 88.5 kg (195 lb) Home GDMT ASA, atorvastatin 10 mg daily, carvedilol 18.75 mg BID, Home Diuresis Bumetanide 1 mg BID, metolazone 2.5 mg PRN Home Vasodilator Imdur 30 mg daily Home Ionotrope None Advanced Therapy None Last Ischemic Eval 03/15/2016: Unchanged from prior, widely patent vein grafts to LAD and right PDA Last RHC 10/04/2018: RA 15, RV 56/13, PA 63/33 (46), PCWP 27. CO/CI via [place] was 2.6/1.3. SVR ~2000. Last Echo/MRI 10/03/2018: LVEF 30-35%. Grade II diastolic dysfunction. RVSP 49. Mild to mod MR, mild TR. Device HADOOP INFRASTRUCTURE ARCHITECT-D PAST MEDICAL, SURGICAL, FAMILY, AND SOCIAL HISTORY Past Medical History: Diagnosis Date ??? Anemia ??? Anemia ??? Arrhythmia ??? Atrial arrhythmia ??? CAD (coronary artery disease) ??? Chronic kidney disease (CKD) 07/07/2016 ??? Congestive heart failure, unspecified (HCC) ??? Diabetes ??? GERD (gastroesophageal reflux disease) ??? Heart attack x 2 ??? Hyperlipidemia ??? Hypertension ??? Hypothyroidism ??? Ischemic cardiomyopathy ??? OA (osteoarthritis) ??? XOCHITL (obstructive sleep apnea) ??? Pacemaker ??? Restless leg syndrome ??? Vascular disease ??? VT (ventricular tachycardia) (HCC) Past Surgical History: Procedure Laterality Date ??? INTERCARDIAC VT ABLATION N/A 01/03/2017 Laterality: N/A; Surgeon: Abe Finch MD; Location: [facility] EP ??? CARDIAC VEIN ELECTRODE PLACEMENT FOR LV PACING N/A 06/05/2014 Laterality: N/A; Surgeon: Saturnino Oquendo MD; Location: [facility] EP ??? ICD PLACEMENT N/A 06/05/2014 Laterality: N/A; Surgeon: Saturnino Oquendo MD; Location: [facility] EP ??? ARTHROPLASTY HIP TOTAL 11/07/2011 Laterality: Right; Surgeon: Sudarshan Carr MD;; Location: [facility] ??? HEART CATHETERIZATION 03/31/2011 ??? AICD, DUAL CHAMBER 2009 ??? CORONARY ARTERY BYPASS GRAFT 2009 ??? CHOLECYSTECTOMY 2008 ??? AICD, DUAL CHAMBER 2004 ??? CORONARY ARTERY BYPASS GRAFT 1988 ??? COLONOSCOPY ??? HEART CATHETERIZATION ??? KNEE CARTILAGE SURGERY ??? KNEE SURGERY medial collteral Family History Problem Relation Age of Onset ??? Myocardial Infarction Mother ??? Hypertension Mother ??? Diabetes Mother ??? Myocardial Infarction Father ??? Hypertension Father ??? Diabetes Maternal Grandmother ??? Anesth Problems Neg Hx Social History Social History ??? Marital status: Spouse name: N/A ??? Number of children: N/A ??? Years of education: N/A Social History Main Topics ??? Smoking status: Former Smoker Packs/day: 0.50 Years: 5.00 Types: Cigarettes Quit date: 10/29/1963 ??? Smokeless tobacco: Never Used ??? Alcohol use 3.5 oz/week 7 Standard drinks or equivalent per week Comment: Occasional ??? Drug use: No ??? Sexual activity: Yes Partners: Female Other Topics Concern ??? Not on file Social History Narrative ??? No narrative on file MEDICATIONS SCHEDULED: aspirin 81 mg Daily atorvastatin 10 mg Daily carveDILOL 18.75 mg BID clopidogrel 75 mg QAM heparin 5,000 Units Q8H isosorbide mononitrate 30 mg Daily levetiracetam 500 mg Q12H levothyroxine 100 mcg Daily mexiletine 150 mg Q8H Ranolazine 1,000 mg Q12H rOPINIRole 2 mg BID FLUIDS/DRIPS: ??? DOBUTamine (DOBUTREX) Infusion 2.5 mcg/kg/min (10/04/18 1552) PRNs: docusate 100 mg BID PRN magnesium oxide 800 mg As directed PRN magnesium oxide 800 mg As directed PRN metolazone 2.5 mg PRN nitroGLYCERIN 0.4 mg PRN ondansetron 4mg/2ml 4 mg Q6H PRN Or ondansetron 4 mg Q6H PRN potassium chloride 40-60 mEq As directed PRN sodium chloride 0.9% 250 mL PRN sodium chloride 0.9% 500 mL As directed PRN ALLERGIES: He is allergic to amiodarone; demerol; meperidine and related; and spironolactone. PRIOR TO ARRIVAL MEDS: Prior to Admission Medications Prescriptions Last Dose Informant Patient Reported? Taking? Lactobacillus (PROBIOTIC ACIDOPHILUS PO) More than a month at Unknown time Yes No Sig: take 1 tablet by mouth daily.. LevETIRAcetam (KEPPRA PO) 10/02/2018 at Unknown time Significant Other Yes Yes Sig: Take 750 mg by mouth 2 times daily. Verified with and med list from [facility] that dose is 750mg BID Magnesium Oxide (MAG-OX 400 PO) 10/02/2018 at Unknown time Yes Yes Sig: take 1 tablet by mouth daily.. Potassium Chloride ER 20 MEQ Tab CR 10/02/2018 at Unknown time Yes Yes Sig: take 1 tablet by mouth three times a week.. Ranolazine 1000 MG PO tab SR 10/02/2018 at Unknown time Yes Yes Sig: take 1 Tab by mouth 2 times daily. aspirin 81 MG Chew Tab 10/02/2018 at Unknown time No Yes Sig: take 1 tablet by mouth daily.. atorvastatin 10 MG Tab 10/02/2018 at Unknown time Yes Yes Sig: take 10 mg by mouth daily.. bumetanide 1 MG Tab 10/02/2018 at Unknown time Yes Yes Sig: take 1 mg by mouth 2 times daily.. carveDILOL 12.5 MG Tab 10/02/2018 at Unknown time Yes Yes Sig: take 18.75 mg by mouth 2 times daily.. clonazePAM 1 MG Tab More than a month at Unknown time Yes No Sig: take 1 mg by mouth 2 times daily as needed.. clopidogrel (PLAVIX) 75 MG PO TABS 10/02/2018 at Unknown time Yes Yes Sig: take 1 Tab by mouth daily every morning. dofetilide 250 MCG capsule 10/02/2018 at Unknown time No Yes Sig: take 1 capsule by mouth every 12 hours.. If 3 doses are missed, contact the prescribing senior hydrogeologist as soon as possible. isosorbide mononitrate 60 MG Tab SR 24 HR 10/02/2018 at Unknown time Self Yes Yes Sig: Take 30 mg by mouth daily every morning. levothyroxine 25 MCG PO TABS 10/02/2018 at Unknown time Self Yes Yes Sig: Take 100 mcg by mouth daily. metolazone 2.5 MG Tab Past Week at Unknown time Yes Yes Sig: take 2.5 mg by mouth as needed (Taking 2-3 times per week alternating with potassium per PCP).. mexiletine 150 MG Cap 10/02/2018 at Unknown time No Yes Sig: take 1 capsule by mouth every 12 hours.. Patient taking differently: Take 150 mg by mouth every 8 hours. Verified with med list from [facility] patient that dose is 150mg TID multivitamin w/ minerals PO TABS More than a month at Unknown time Yes No Sig: take 1 Tab by mouth daily. nitroGLYCERIN (NITROSTAT) 0.4 MG SL tablet Unknown at Unknown time Yes No Si Tab by Sublingual route as needed. rOPINIRole 1 MG Tab 10/01/2018 at Unknown time Yes Yes Sig: take 2 mg by mouth 2 times daily.. 8pm and 11pm sitaGLIPtin 50 MG Tab tablet Yes Yes Sig: Take 50 mg by mouth daily. Facility-Administered Medications: None REVIEW OF SYSTEMS ROS As per HPI OBJECTIVE FINDINGS Vital Signs (24hrs): Temp: [97.2 ??F (36.2 ??C)-98.4 ??F (36.9 ??C)] 98 ??F (36.7 ??C) Pulse (Heart Rate): [78-205] 94 Resp Rate: [12-33] 23 BP: (86-119)/(60-84) 109/72 O2 Sat (%): [93 %-100 %] 99 % Weight: [89.6 kg (197 lb 8.5 oz)] 89.6 kg (197 lb 8.5 oz) Hemodynamic/Invasive Device Data (24 hrs): Pulmonary/Cardiac Hemodynamics Pulse (Heart Rate): 94 Neuro ICP/CPP Monitoring MAP (mmHg): 86 mmHg Neuro ICP/CPP Monitoring 2 MAP (mmHg): 86 mmHg Ventilation/Oxygen Therapy (24hrs): Oxygen Therapy O2 Sat (%): 99 % O2 Device: nasal cannula Flow (L/min): 2 Lines/Drains/Airways/Wounds: Patient Lines/Drains/Airways Status Active Lines, Drains, Airways, & Wound Overview Name: Placement date: Placement time: Site: Days: Peripheral IV Line - Single Lumen 10/02/18 1920 metacarpal vein (top of hand), left 20 gauge 10/02/18 192 1 Peripheral IV Line - Single Lumen 10/04/18 0454 basilic vein (medial side of arm), left 20 gauge;1 1/4 in length 10/04/18 0454 less than 1 Indwelling Urethral Catheter 10/03/18 1211 100% silicone 16 10/03/18 1211 1 Sheath Site Assessment (Wound) Right internal jugular 10/04/18 internal jugular less than 1 Incision 1126 Right hip 1126 Wound 06/05/14 1400 Left shoulder 06/05/14 1400 1582 Fluid Management (24hrs): -Intake/Output last 3 shifts: I/O last 3 completed shifts: In: 577 [P.O.:550; I.V.:27] Out: 950 [Urine:350; Emesis:600] PHYSICAL EXAM General: Awake, alert, appears stated age, pleasant and cooperative, NAD HEENT: Normocephalic and atraumatic, clear oropharynx without exudates or erythema Neck: Neck with full range of motion,supple Cardio: Alternating irregularly irregular rhythm and V-paced appearing regular rhythm. + systolic murmur, head best at apex. + JVD up to near jawline Resp: Lungs clear to ausculation bilaterally, no w/r/r, no increased work of breathing, no use of accessory muscles Abdomen: Soft, non-tender, non-distended, no pulsatile masses, +BS Ext: No cyanosis, no clubbing or cyanosis, 2+ peripheral edema, extremities are cold and dry Neuro: A&O x4, appropriate responses to questions Skin: No rashes or lesions, no jaundice DIAGNOSTIC RESULTS/PROCEDURES ABGs CBC Chem 7(PMC) Bun/Creat/Cl/CO2/Glucose: 36/2.49/98/22/221 (10/04 255) Na/K+/Phos/Mg/Ca: 132/4.6/--/2.0/-- (10/04 0255-10/04 1143) Coags Additional Labs Lab Results Component Value Date BNP 525 (H) 10/03/2018 BNP 109 (H) 07/06/2016 BNP 577 (H) 06/03/2014 Lab Results Component Value Date TROP 0.06 10/04/2018 TROP 0.06 10/03/2018 TROP 0.06 10/02/2018 Lab Results Component Value Date CHOLESTEROL 150 03/30/2011 TRIG 107 03/30/2011 HDL 43 (L) 03/30/[address] head 10/04/2018: Small mildly hyperdense extra-axial collection/soft tissue overlying the left anterior frontal lobe. It is unclear whether this represents a small subdural hematoma versus chronic dural thickening. If clinically indicated, short-term follow-up is suggested to ensure stability. Last echocardiogram (TTE): 10/03/2018: LVEF 30-35%. Grade II diastolic dysfunction. RVSP 49. Mild to mod MR, mild TR. Last ischemic eval: 03/15/2016: Unchanged from prior, widely patent vein grafts to LAD and right PDA ASSESSMENT AND PLAN Dong Marcano is a 78 y.o. male with a history of HFrEF 2/2 ICM s/p HADOOP INFRASTRUCTURE ARCHITECT-D, Afib with RVR (ASA, clopidogrel), amiodarone-induced thyroiditis, recurrent VT/atrial arrhythmias (S/p mexilitine, sotalol) whopresents with the following: Acute on chronic systolic and diastolic heart failure, c/b volume overload: etiology of acute failure: atrial fibrillation; etiology of chronic failure: ICM; volume status: hypervolemic - NYHA FC 4 - ACC Stage C - Diuresis: Lasix 80 mg IV bolus + 10 mg/hr gtt, goal net negative 1.5-2L daily, 2L fluid restriction - Inotropes: None - Vasodilation / Afterload reduction: Imdur XL 30 mg daily - GDMT: - Beta blockade: Hold carvedilol while on dobutamine - ACEi / ARB: None - Statin: Atorvastatin 10 mg daily - ASA: 81 mg daily - ICD: HADOOP INFRASTRUCTURE ARCHITECT-D - Etiology workup: - Ischemia: EKG, trops, TTE - Arrhythmia: Pacer interrogation - Cardiac rehab consult Paroxysmal A fib: [id number]. - EP on board, plan for AVN ablation to avoid anticoagulation (atraumatic SDH noted on CT head. Per NSGY, avoid anticoagulation). - Consider outpatient WATCHMAN eval - Continue ASA. Hold Plavix - Hold dofetilide with worsened renal funciton - Continue mexilitine. Complicated cystitis: Dirty UA in male patient. - Urine culture - Ceftriaxone Acute respiratory insufficiency: Suspect due to pulmonary edema. Monitor with diuresis. Concern for subacute subdural hematoma in setting of seizure history: No acute bleeding process, butwill defer further anticoagulation based on NSGY recs. - Continue ASA - Hold Plavix - Continue keppra JASPER on CKD III c/b hyperkalemia: Suspect due to cardiorenal syndrome - diuresis as above - Avoid nephrotoxins, renally dose meds, trend chem H/o VT: Continue mexilitine Amiodarone-induced hypothyroidism: TSH WNL H/o seizures: Continue Keppra 500 mg BID HTN: Continue Imdur XL 30 mg daily - Hold coreg while on dobut Echo diagnoses - Mild to mod MR. Mild TR. Mild protein calorie malnutrition - Lab Results Component Value Date ALBUMIN 3.3 (L) 10/03/2018 ASPEN: Decreased muscle mass, decreased subcutaneous tissue Class I obesity - Body mass index is 30.93 kg/m??. on admission. Encourage diet/exercise. FEN/GI: DIET NPO with meds PPX: ACCESS: CODE: DISPO: This plan was discussed with the fellow director special education for heart failure. Humza Becerra, DO Associated attestation - Sulma Reese MD - 10/04/2018 8:50 PM ESTAttending Physician Note I saw and personally examined the patient today with the resident and fellow on heart failure roundson 10/04/18 at 1700. I discussed the symptoms and exam findings, results of testing and therapeutic plan with the resident. I agree with the history, physical examination, and medical decisions as outlined in the progress note, and I have edited the note in its essential parts to reflect my plan for this patient. Sulma Reese M.D. Professor of Clinical Internal Medicine Advanced Heart Failure and Transplant Program [facility] [email or web address] ph [phone] fax [phone] Eren Peña MD - 10/04/2018 3:29 PM ESTFormatting of this note may be different from the original. [facility] Medicine Daily Progress Note Patient: Dong Marcano, 1940, [id number] Physician: Eren Peña MD, Attending Physician, Pager #[phone], [place] [facility] Length of stay: 2 days. IMPRESSION/PLAN Principal Problem: Diastolic dysfunction with chronic heart failure Active Problems: Acute on chronic systolic congestive heart failure Obesity: body mass index of 30.0-34.9 A-fib Persistent atrial fibrillation Nico Marcano is a 78 y/o with h/o chronic systolic CHF with HADOOP INFRASTRUCTURE ARCHITECT-D, CABG x 2, CKD stageIII, HTN, amiodarone related thyroiditis, and recurrent VT who presents with atrial flutter and acute systolic CHF ?? # Paroxysmal A fib: EKG appears like atrial fib, per report atrial flutter on device check. Tachycardic today, possibly d/t CHF - continue home medications, - on tele - TTE completed - EP following. Management complicated by prior atraumatic severe SDH (See [facility] notes in care everywhere 07/2017). [facility] here with likely subacute SDH which is not from old SDH on discussion with NSG. EP to discuss with neurosurgery, if AC is prohibitively risky they plan for AV node ablation. NPO pending plan from them - dofetilide held with worsening renal function ?? # Acute on chornic CHF: Hypervolemic here, was very orthopneic and dyspneic /. Had mild diuresisand is far better today symptomatically but now with JASPER - CHF following. - RHC done with low CO and high PCWP. Plan to start 2.5 mcg/kg/min [facility] - coreg, imdur. No GIOVANNI, ARB, or entresto - likely d/t renal failure. - hold on diuresis today # JASPER: d/t cardiorenal syndrome - see above # Hyperkalemia: improved with kayexalate, bicarb, insulin. D/t JASPER - monitoring. # Vomiting: d/t kayexalate ?? # h/o VT: mexiletine ??# Hypothyroidism TSH wnl ?? # Sezizures. Had seizure in last few weeks: cont AED with dose adjustment for renal function ?? #CKD : daily chem, avoid nephrotoxins ?? #HTN ; cont home meds ? DVT prophylaxis with heparin ?? Disposition: 24 hour supervision recommended by PT suspects may progress to going home ?? Code status is full INTERVAL HISTORY/SUBJECTIVE CC: breathing Breathing better today. Able to lay flat today (couldn't yesterday). No chest pain. No headaches. OBJECTIVE Vitals: [range] current Temp: [97.2 ??F (36.2 ??C)-98.4 ??F (36.9 ??C)] 98 ??F (36.7 ??C) Pulse (Heart Rate): [78-205] 92 Resp Rate: [12-33] 25 BP: (86-119)/(60-84) 99/68 O2 Sat (%): [93 %-100 %] 97 % Weight: [89.6 kg (197 lb 8.5 oz)] 89.6 kg (197 lb 8.5 oz) O2 Device: nasal cannula (10/04/18 1500) Flow (L/min): 2 (10/04/18 1408) Intake/Output last 3 shifts: I/O last 3 completed shifts: In: 577 [P.O.:550; I.V.:27] Out: 950 [Urine:350; Emesis:600] Gen: ??Alert, Awake, NAD Resp: ??CTA &??P, normal respiratory effort Cardio: ??Tachycardia , abnormal rhythum, no M/R/G. 2+ANA. GI: ??S/NT/ND, NABS MS: ??No joint effusions or erythema: Skin: No jaundice or rash DATA REVIEW Na/K+/Phos/Mg/Ca: 132/4.6/--/2.0/-- (10/04 255-10/04 114) Bun/Creat/Cl/CO2/Glucose: 36/2.49/98/22/221 (10/04 255) Body mass index is 30.93 kg/m??. Signed, MD Edy Vazquez, Saleem Cunningham MD - 10/04/2018 2:22 PM ESTFormatting of this note may be different from the original. EP FOLLOW-UP NOTE IDENTIFYING DATA PATIENT: Dong Marcano ADMIT DATE: 10/02/2018 HOSPITAL STAY: LOS: 2 days SUBJECTIVE Telemetry and ECGs were reviewed and revealed AF. Over the last 24 hours the patient stated that he felt better. However overnight he vomited about 600 cc of liquid. ASSESSMENT AND PLAN Dong Marcano is a 78 y.o. male with a past medical history of ischemic cardiomyopathy, HADOOP INFRASTRUCTURE ARCHITECT-D device,CABG X 2, HTN, ??recurrent heart failure, amiodarone-related thyroiditis, and has had recurrent episodes of VT as well as atrial arrhythmias. He is currently on Mexitil and Tikosyn. He is currently bein g treated for ADHF, EP is following for management of AF. He has the following active issues that are listed below: 1. AF with RVR 2. ADHF ?? Recommendations Overnight patient's creatinine bumped, unclear if this is due to intravascular depletion with diuresis or the episode of nausea and vomiting or some other cause. Would recommend urine electrolytes (FE urea given on diuretics) to further delineate . HF on board and planning for RHC to assess fluid status. Additionally, the patient had a non-contrasted head CT that showed small mildly hyperdense extra-axial collection/soft tissue overlying the left anterior frontal lobe. It is unclear whether this represents a small subdural hematoma versus chronic dural thickening. After speaking with neurosurgery, they believe this lesion likely represents a subacute hemorrhage and collectively we have decided thebest course of action would be to avoid anticoagulation if possible. Therefore, we will proceed withAVN ablation given that the patient already has a biventricular device. We are also considering bringing him back as an outpatient for WATCHMAN device. This consult was discussed with Dr. Calle, the attending physician. If you have any questions orneed any further information, please feel free to contact the EP Consult Service. Thank you for allowing us to participate in the care of Dong Marcano. Saleem Snow MD Electrophysiology Fellow Pager OBJECTIVE DATA Temp: [97.2 ??F (36.2 ??C)-98.4 ??F (36.9 ??C)] 98 ??F (36.7 ??C) Pulse (Heart Rate): [82-126] 97 Resp Rate: [18-33] 18 BP: (93-116)/(60-77) 93/60 O2 Sat (%): [97 %-100 %] 99 % Weight: [89.6 kg (197 lb 8.5 oz)] 89.6 kg (197 lb 8.5 oz) I/O last 3 completed shifts: In: 577 [P.O.:550; I.V.:27] Out: 1650 [Urine:1050; Emesis:600] Oxygen Therapy: Oxygen Therapy O2 Sat (%): 99 % O2 Device: nasal cannula Flow (L/min): 2 Physical Exam: General appearance - NAD Mental status - Alert and oriented x 4 Eyes - EOMI; sclera anicteric Mouth - MMM Neck - Supple; no thyromegaly or adenopathy; mild JVD detected Chest - mild crackles in bases Heart - tachycardic; no m/c/g/r; Nl S1 and S2 Abdomen - NT/ND; +BS Neurological - Moves all extremities spontaneously Extremities - 2+ edema Skin - Intact; no rashes or lesions noted LABS AND IMAGING Labs-CBC Labs-Chem 7 Bun/Creat/Cl/CO2/Glucose: 36/2.49/98/22/221 (10/04 255) Na/K+/Phos/Mg/Ca: 132/4.6/--/2.0/-- (10/04 255-10/04 114) Labs-Liver Lab Results Component Value Date ALT 12 10/03/2018 AST 14 10/03/2018 ALKPHOS 108 10/03/2018 BILITOTAL 0.5 10/03/2018 BILIDIRECT 0.2 10/03/2018 Lab Results Component Value Date INR 1.1 10/03/2018 Associated attestation - Barrett Calle MD - 10/04/2018 3:04 PM EST Attending Physician Note I have personally interviewed and examined this patient with the EP Fellow on 10/04/18. I have reviewed the history and examination and edited these in the note above. I agree with the medical decision and components of the note as edited by me. Patient is alert and oriented and VS stable. He has had reduced urine output overnight but breathing is significantly better. Await head CT to assess subdural and decide if anticoagulation is an option. We plan MAGDALENA/DCC if able to anticoagulate or AVJ ablation if unable to start anticoagulation. Watchman could be considered later if able to anticoagulate for short term. Barrett Calle MD, [facility], [place] Theresa Chen Chair in Cardiac Electrophysiology Deputy Director Of Nursing of Clinical Medicine [phone] China Linda RN - 10/04/2018 12:03 PM [id number] Progress Note Anticipated Discharge Plan as of 10/04/2018 12:03 PM Expected Discharge Date: 10/07/2018 Anticipated discharge disposition: Home with Assistance, Home with Home Health Barriers to Discharge Barriers to Discharge: Complex Disposition, Physician Decision Barriers to Discharge Comment : a-fib; JASPER (K.8); for possible RFA vs DCCV and Watchman (previous intracranial hemorrhag from fall) Medical Milestone Medical Milestone : RHC today; Leah Knutson - 10/04/2018 11:07 AM ESTFormatting of this note may be different from the original. Acute Care Occupational Therapy Evaluation Note Frequency: 5x per week Discharge Recommendations: Dong Marcano is able to return to prior home environment from an OT perspective with initial supervision and assist in self care and functional mobility PRN. 10/04/18 1107 General Information RN Approved Intervention as tolerated Surgical Procedure PERIOPERATIVE SURGICAL HISTORY AND PHYSICAL UPDATE Pre-op Diagnoses: Diastolic dysfunction with chronic heart failure [I50.32] Procedure(s): Right Heart Catheterization Surgeon(s): Surgeon(s) and Role: * Cath All Ihisschedule - Primary Existing Precautions/Restrictions oxygen therapy device and L/min;fall (hx of seizures (seizure pads in bed); chair alarm; 1.5 L O2) General Pain Documentation (Adult, OB, Peds) Presence of Pain denies pain/discomfort Home Setting Residence Home Lives With spouse (can provide supervision and assist PRN) First floor bed/bathroom yes;walk-in shower;grab bars Second floor bed/bathroom yes (to basement) Number of Stairs to Enter Home 2 (in front) Number of Stairs Within Home 12 (to basement) Equipment Available straight cane;rollator Cognitive Status Examination Orientation Status (Cognition) oriented x 3 Level of Consciousness alert;cooperative Able to Follow Commands (Communication) WFL Personal Safety and Judgment intact Vision (check all that apply) Vision prescription glasses Range of Motion (ROM) Range of Motion Examination bilateral upper extremity ROM was WFL (active ROM of right shoulder flexion 120 degrees) Manual Muscle Testing (MMT) Hand Cripple Chaser, Right strong Hand Cripple Chaser, Left strong Manual Muscle Testing Results no strength deficits were identified Bed Mobility Skill: Supine to Sit, Rehab Eval Level of [place]: Supine/Sit minimum assist (75% patients effort) Physical Assist/Nonphysical Assist: Supine/Sit 1 person assist;supervision Transfer Skill: Sit to Stand, Rehab Eval Level of [place]: Sit/Stand stand-by assist Physical Assist/Nonphysical Assist: Sit/Stand 1 person assist;supervision Assistive Device for Transfer: Sit/Stand (2ww) Transfer Skill: Stand to Sit, Rehab Eval Level of [place]: Stand/Sit (stand by assist) Physical Assist/Nonphysical Assist: Stand/Sit 1 person assist;supervision Balance Skills Assessment, Rehab Eval Sitting Balance: Static good balance Sitting Balance: Dynamic good balance Aiw-Av-Sluni Balance fair balance Standing Balance: Static Fair plus balance Standing Balance: Dynamic fair balance Bathing Level of [place] contact guard Physical Assist/Nonphysical Assist 1 person assist;supervision Upper Body Dressing Level of [place] stand-by assist Physical Assist/Nonphysical Assist 1 person assist;supervision Lower Body Dressing Level of [place] stand-by assist Physical Assist/Nonphysical Assist 1 person assist;supervision Assistive Device local company hazmat driver;sock-aid;long-handled shoe horn (utilizes at home) Toileting Level of [place] contact guard Physical Assist/Nonphysical Assist 1 person assist;supervision Grooming [place] Level (Grooming) (stand by assist) Physical Assist/Nonphysical Assist 1 person assist;supervision General Therapy Interventions Planned Therapy Interventions (OT Eval) ADL retraining;balance training PRIOR LEVEL AM-PAC Activity Inpatient Short Form Putting on/Taking Off Lower Body Clothing 4 - No Assistance Bathing 4 - No Assistance Toileting 4 - No Assistance Putting on/Taking Off Upper Body Clothing 4 - No Assistance Grooming 4 - No Assistance Eating 4 - No Assistance PRIOR LEVEL AM-PAC Activity Raw Score 24 PRIOR LEVEL AM-PAC Activity Functional Limitation/Modifier 0.00% Prior Functional Impairment in Daily Activity - CH CURRENT AM-PAC Daily Activity Inpatient Short Form Putting on/Taking Off Lower Body Clothing 3 - A Little Assistance Bathing 3 - A Little Assistance Toileting 3 - A Little Assistance Putting on/Taking Off Upper Body Clothing 3 - A Little Assistance Grooming 3 - A Little Assistance Eating 4 - No Assistance CURRENT AM-PAC Activity Raw Score 19 CURRENT AM-PAC Activity Functional Limitation/Modifier 42.80% Currently Impaired in Daily Activity -CK PROJECTED AM-PAC Activity Raw Score 22 PROJECTED AM-PAC Activity Functional Limitation/Modifier 25.80% - Assessment VTE Prevention/Management (ambulated) Assessment Narrative This patient???s OT evaluation is of Moderate Complexity due to the following: ? Occupational Profile and Medical History: The pt was admitted to the hospital for diastolic dysfunction with chronic heart failure. Pt has a expanded history relating to the present problem and their occupational profile has changed minimally compared to their baseline. The pt reports utilizing DME such as cane and rollator to ambulate and reports being independent with all ADLs prior to hospitalization. Pt now requires contact guard assist to SBA for ambulation/functional transfers/ADLs/IADLs. ? Assessment of Occupational Performance: Pt has 1-3 performance deficits relating to physical, cognitive, and/or psychosocial skills. These deficits include: -Physical: increased SOB, decreased endurance, and decreased dynamic standing balance ? Clinical Decision Making: In regards to appropriate treatment options available, modifications of tasks required, and co-morbidities present, the pt is considered Moderate complexity. Based on the information above pt is safe to return home at discharge with initial supervision and assist in self-careand functional mobility PRN. ? Clinical Impression Patient Instruction (Role of OT and plan of care) Rehab Potential (OT Eval) good, to achieve stated therapy goals Therapy Frequency 5 times a week OT Therapy Completed Yes Initial Evaluation Completed yes Today's Treatment Included Upon entering the room, pt was lying supine in bed. Pt completed bed mobility onto EOB with minAx1 to push self into an upright position and weight shift forward. Pt dependent for donning socks (utilizes local company hazmat driver/sock aid/shoe horn at home). Pt then completed sit to stand transfer, utilizing a 2ww, with SBA. Pt proceeded to ambulate through hallway with SBA. Upon returning to room, pt completed a stand to sit transfer onto room chair with SBA. Pt left in room chair with family in room, call light in reach, chair alarm on, all needs met. Continue care plan yes Goals Goals For Discharge 1. Pt will perform toileting/bathing ADLs with supervision assist. 2. Pt will perform grooming/upper body dressing/lower body dressing ADLs with supervision assist. 3. Pt will safely complete functional transfers on/off various surfaces with supervision assist in prep for ambulation and performing ADLs/IADLs. 4. Pt will improve activity tolerance by ambulating and performing OOB ADLs/IADLs lasting 4-6 minutes with no more than one rest break. 5. Pt will display fair plus dynamic standing balance when ambulating and performing ADLs/IADLs. Discussed risk / benefits with patient;patient's family Plan Plan Narrative (OT to follow) Time in: 10:36AM Time out: 11:04AM Charges: PIOE Bernabe Shawna Kj Student Occupational Therapist I have read/edited and agree with the above note for Dong Marcano Juliana Valentino, OTR/L License #: [id number] Pager#: [phone] Upon discontinuation of Acute Care Occupational Therapy Services or patient discharge from the hospital this note represents the current Occupational Therapy Discharge Summary. Gal Posey, PT - 10/04/2018 10:36 AM ESTFormatting of this note may be different from the original. Acute Care Physical Therapy Evaluation Recommendations: Dong Marcano would benefit at this time from continued PT services with 24 hour supervision needed for mobility needs. Pt likely to progress to home. Frequency: 5x/wk 10/04/18 1036 General Information RN Approved Intervention as tolerated Diagnosis a fib Surgical Procedure PERIOPERATIVE SURGICAL HISTORY AND PHYSICAL UPDATE Pre-op Diagnoses: Diastolic dysfunction with chronic heart failure [I50.32] Procedure(s): Right Heart Catheterization Surgeon(s): Surgeon(s) and Role: * Cath All Ihisschedule - Primary Past Medical History Past Medical History: Diagnosis Date ??? Anemia ??? Anemia ??? Arrhythmia ??? Atrial arrhythmia ??? CAD (coronary artery disease) ??? Chronic kidney disease (CKD) 07/07/2016 ??? Congestive heart failure, unspecified (HCC) ??? Diabetes ??? GERD (gastroesophageal reflux disease) ??? Heart attack x 2 ??? Hyperlipidemia ??? Hypertension ??? Hypothyroidism ??? Ischemic cardiomyopathy ??? OA (osteoarthritis) ??? XOCHITL (obstructive sleep apnea) ??? Pacemaker ??? Restless leg syndrome ??? Vascular disease ??? VT (ventricular tachycardia) (HCC) Past Surgical History Past Surgical History: Procedure Laterality Date ??? INTERCARDIAC VT ABLATION N/A 01/03/2017 Laterality: N/A; Surgeon: Abe Finch MD; Location: [facility] ??? CARDIAC VEIN ELECTRODE PLACEMENT FOR LV PACING N/A 06/05/2014 Laterality: N/A; Surgeon: Saturnino Oquendo MD; Location: [facility] ??? ICD PLACEMENT N/A 06/05/2014 Laterality: N/A; Surgeon: Saturnino Oquendo MD; Location: [facility] ??? ARTHROPLASTY HIP TOTAL 11/07/2011 Laterality: Right; Surgeon: Sudarshan Carr MD;; Location: [facility] ??? HEART CATHETERIZATION 03/31/2011 ??? AICD, DUAL CHAMBER 2008 ??? CORONARY ARTERY BYPASS GRAFT 2008 ??? CHOLECYSTECTOMY 2007 ??? AICD, DUAL CHAMBER 2004 ??? CORONARY ARTERY BYPASS GRAFT 1988 ??? COLONOSCOPY ??? HEART CATHETERIZATION ??? KNEE CARTILAGE SURGERY ??? KNEE SURGERY medial collteral Existing Precautions/Restrictions cardiac;fall;oxygen therapy device and L/min Left Upper Extremity (Weight Bearing Status) full weight bearing Weight-Bearing Status-RUE full weight-bearing Left Lower Extremity (Weight Bearing Status) full weight bearing Right Lower Extremity (Weight Bearing Status) full weight bearing Home Setting Residence Home (1-story with basement) Lives With spouse (can assist as needed) First floor bed/bathroom yes;walk-in shower;grab bars Second floor bed/bathroom no Number of Stairs to Enter Home (2 from front, 4 from garage) Number of Stairs Within Home (12 to basement - doesn't need to use) Stair Railings at Home with rail Equipment Available straight cane;grab bars;wheeled walker Previous Level of Function Ambulation Skills needs device Assistive Device wheeled Walker - rollator;straight cane (varied use) Level of Ambulation community (recently limited) General Pain Documentation (Adult, OB, Peds) Presence of Pain denies pain/discomfort Cognitive Status Examination Orientation Status (Cognition) oriented x 4 Level of Consciousness alert;cooperative Able to Follow Commands (Communication) WFL Personal Safety and Judgment intact Vision no gross deficit noted;corrective lenses needed Hearing no gross deficit noted Speech no gross deficit noted Range of Motion (ROM) Range of Motion Examination bilateral upper extremity ROM was WFL;bilateral lower extremity ROM was WFL (rigth shoulder flexion limited to 110 deg) Manual Muscle Testing (MMT) Manual Muscle Testing Results bilateral lower extremity MMT was WFL Skin Integrity Skin integrity WFL Edema Edema present (generalized) Bed Mobility Skill: Supine to Sit, Rehab Eval Level of [place]: Supine/Sit minimum assist (75% patients effort) Physical Assist/Nonphysical Assist: Supine/Sit 1 person assist;verbal cues;set- up required Transfer Skill: Sit To Stand, Rehab Eval [place] (Sit-Stand Transfers) (SBA) Physical Assist/Nonphysical Assist: Sit/Stand 1 person assist;verbal cues;set-up required Weight-Bearing Restrictions: Sit/Stand full weight-bearing Assistive Device For Transfer: Sit/Stand 2 wheeled walker Gait Skills, PT Eval Level of [place]: Gait stand-by assist Physical Assist/Nonphysical Assist: Gait 1 person assist;verbal cues;set-up required Weight-Bearing Restrictions: Gait full weight-bearing Assistive Device For Transfer: Gait 2 wheeled walker Gait Distance (125 ft) Gait Analysis, PT Eval Gait Pattern Used (step-through) Gait Deviations Identified (Gait) decreased dulce;decreased gait speed;decreased step length;decreased stride length (shuffling when fatigued) Impairments Contributing To Gait Deviations impaired balance;decreased strength (decreased endurance) Balance Skills Assessment, Rehab Eval Sitting Balance: Static good balance Sitting Balance: Dynamic good balance Mia-Wk-Drpec Balance (fair +) Standing Balance: Static (fair +) Standing Balance: Dynamic fair balance Sensory Examination Sensory Examination (Reports burning at the heels) General Interventions Planned Therapy Interventions balance training;edema control;endurance;gait training;neuromuscular re-education;postural re- education;ROM;strengthening;transfer training PRIOR LEVEL [facility] Basic Mobility Inpatient Short Form Turning over in bed 4 - No Assistance Sitting/standing from chair 4 - No Assistance Moving from lying on back to sitting 4 - No Assistance Moving to and from bed to chair 4 - No Assistance Walk in hospital room 4 - No Assistance Climbing 3-5 steps with a railing 4 - No Assistance PRIOR LEVEL [facility] Mobility Raw Score 24 PRIOR LEVEL [facility] Mobility Functional Limitation/Modifier 0.00% Prior Functional Impairment in Basic Mobility - CH CURRENT [facility] Basic Mobility Inpatient Short Form Turning over in bed 3 - A Little Assistance Sitting/standing from chair 3 - A Little Assistance Moving from lying on back to sitting 3 - A Little Assistance Moving to and from bed to chair 3 - A Little Assistance Walk in hospital room 3 - A Little Assistance Climbing 3-5 steps with a railing 2 - A Lot of Assistance CURRENT [facility] Mobility Raw Score 17 CURRENT [facility] Mobility Functional Limitation/Modifier 50.57% Currently Impaired in Basic Mobility -CK Projected [facility] Mobility Raw Score 24 Projected [facility] Mobility Functional Limitation/Modifier 0.00% Projected Functional Impairment in Basic Mobility - CH Assessment VTE Prevention/Management (ambulation promoted) Assessment Narrative Patient's physical therapy evaluation is moderately complex. History: Patient exhibits 1-2 personal factors and/or comorbidities that impact the plan of care Pt is a 78 y/o male presenting with an admitting diagnosis of a fib . Prior to admission, pt was living with his in a 1-story home with 2-4 TRUPTI. At baseline, pt reports independence with all ADL's, ambulation with use of a cane or rollator, and stair negotiation. Pt reports recently decreased activity tolerance due to weakness, fatigue, and SOB. Pt denies any recent falls - last one, 1 year ago approximately. Examination: included body system(s) using standardized tests and measures addressing 3 or more elements from any of the following: body structures and functions, activity limitations, and/or participation restrictions Pt currently presents with impairments in activity tolerance, dynamic balance, functional strength, and cardiopulmonary endurance. Pt will benefit from skilled PT now and at discharge to address limitations, progress towards goals, and maximize safe functional mobility. Presentation: Evolving clinical presentation with changing clinical characteristics Clinical Decision making: Moderate level- Using standardized assessment. See [facility] Clinical Impression Criteria for Skilled Therapeutic Interventions Met (PT Eval) yes;treatment indicated Impairments Found (PT Eval) aerobic capacity/endurance;gait, locomotion, and balance;motor function;muscle performance;posture;ROM (range of motion) Rehab Potential (PT Eval) good, to achieve stated therapy goals Therapy Frequency 5 times a week PT Therapy Completed Yes PT Therapies Still to Complete 4 Anticipated Equipment Needs at Discharge (PT Eval) (will recommend closer to discharge) Initial Evaluation Completed yes Continue care plan yes Today's Treatment Included Pt ambulated 125 ft with SBA and use of a ww with min cueing on position within the ww. Pt demonstrated a shuffling gait with fatigue. Gait distance limited by weakness andSOB. Concluded session in the chair with call light in reach and all needs met. Goals Risk / Benefits - additional information yes Discussed risk / benefits with patient;patient's family Goals Goal 1 Pt will perform supine<>sit transfer independently Goal 2 Pt will perform all sit<>stand transfers from varying heights and surfaces independently Goal 3 Pt will ambulate 200 ft with modified independence and use of the least restrictive assistivedevice Goal 4 Pt will ascend/descend 2-4 steps with modified independence and use of hand rail as needed Goal 5 Pt will perform and demonstrate compliance with bilat LE/UE strengthening exercises x15 repetitions Therapist Recommendations At Discharge Recommendations PT Services recommended at Discharge Plan Plan Narrative PT will follow and progress as indicated Charges: PT eval - mod Time In: 1036 Time Out: 1101 Upon discontinuation of Acute Care Physical Therapy Services or patient discharge from the hospitalthis note represents the current Physical Therapy Discharge Summary. Jerome Posey, PT, DPT License Number # [id number] Pager # [phone] China Linda RN - 10/03/2018 1:51 PM ESTInitial Assessment Reason for Admission: 78 y.o. male that has been admitted to [facility]; hx of ischemic CMP, s/p HADOOP INFRASTRUCTURE ARCHITECT-D device , CABGx 2 , HTN and recurrent HF , and amio- related thyroiditis, recurrent VT and atrial arrhythmias , admitted to us as transfer from OSH with recurrent uncontrolled Afib Contact Information Hack Saw Operator Name: china linda CM Hack Saw Operator's Information Source Information Source: patient Information Source Name: patient - dong marcano Advanced Care Planning Advanced Directives: living will, HCPOA HCPOA Contact: spouse Legal NOK Contact: same PCP and Specialty Physicians PCP: tomas Date last see: unknown Specialist Physician Name: pcp - tomas Specialist Physician Phone: cardiology - amando finch Medication Management [facility] Prescription Coverage: yes Able to pay for medications: yes Anticoagulation management: plavix Living Environment Lives With: spouse Living Arrangements: house Provides Primary Care For: no one Primary Care Provided By: spouse/significant other Support System: Immediate family Able to Return to Prior Arrangements: other (see comments) (tbd - pending PT/OT recs) Employment/Financial Employed?: Retired Source Of Income: pension/half-way Financial Concerns: none Instrumental ADLs Mental Status Current Mental Status/Cognitive Functioning: no deficits noted Recent Changes in Mental Status/Cognitive Functioning: no changes Values and Beliefs Cultural, Spiritual, Jehovah'S Witness Practices: not indicated (I) Influence Impact: not indicated Patient Coping and Stress Caregiver Coping and Stress Services Prior to Admission Home Care Services (SNATH HANDLE ASSEMBLER): No Additional Home Care Services (SNATH HANDLE ASSEMBLER): no DME (SNATH HANDLE ASSEMBLER): Straight cane, CPAP Medical Supplies (SNATH HANDLE ASSEMBLER): None Intelligence Clerk: na Affiliated Program: na Transportation Transportation Available: car, family or friend will provide Person who will be providing transportation: family Availability: tbd Initial Discharge Planning Anticipated discharge disposition: Home with Assistance, Home with Home Health Readmission Within The Last 30 Days: no previous admission in last 30 days Current Discharge Risk: high risk diagnoses (i.e., CHF, Stroke, DM, chronic pain, abdominal pain, nausea and vomiting), >65 years of age Transportation Available: car, family or friend will provide Concerns to be Addressed Case Management Plan - Problems and Interventions 1. Met with patient to introduce self and role of clinical immigration case worker. Contact information provided on white board. 2. Will assist with scheduling follow up appointments as needed. 3. Will continue to follow for discharge planning and care coordination. 4. Discharge disposition tbd closer to discharge pending medical progression of care; patient fatigued; awaiting PT/OT recs; independent prior without C prior to hospitalization. Eren Peña MD - 10/03/2018 11:01 AM ESTFormatting of this note may be different from the original. [facility] Medicine Daily Progress Note Patient: Dong Marcano, 1940, [id number] Physician: Eren Peña MD, Attending Physician, Pager #[phone], [place] [facility] Length of stay: 1 days. IMPRESSION/PLAN Active Problems: Acute on chronic systolic congestive heart failure Obesity: body mass index of 30.0-34.9 A-fib Nico Marcano is a 78 y/o with h/o chronic systolic CHF with HADOOP INFRASTRUCTURE ARCHITECT-D, CABG x 2, CKD stageIII, HTN, amiodarone related thyroiditis, and recurrent VT who presents with atrial flutter # Paroxysmal A fib: EKG appears like atrial fib, per report atrial flutter on device check. - currently Vss, will cont home meds - on tele - TTE - serial trop - EP consult for possible ablation - not on AC d/t prior intracranial hemorrhage. Neurosurgery consulted to discuss safety of anticoagulation. ?? # Acute on chornic CHF: Seems mildly hypervolemic - will gently diurese - coreg, imdur. No GIOVANNI, ARB, or entresto - likely d/t renal failure. # h/o VT: mexiletine # Hypothyroidism TSH wnl ?? # Sezizures : cont AED ?? #CKD : daily chem, avoid nephrotoxins ?? #HTN ; cont home meds ? DVT prophylaxis with heparin ?? Disposition: PT and OT to see, per patient more weak than baseline ?? Code status is full INTERVAL HISTORY/SUBJECTIVE CC: weakness Weak yesterday leading to admission. In A Fib. Has edema which isn't bad for him. Has been dyspneic. Had recent admit before this in [place] with fall and later seizure. OBJECTIVE Vitals: [range] current Temp: [98 ??F (36.7 ??C)-98.8 ??F (37.1 ??C)] 98 ??F (36.7 ??C) Pulse (Heart Rate): [86-101] 94 Resp Rate: [18] 18 BP: (111-121)/(65-79) 116/78 O2 Sat (%): [95 %-98 %] 98 % Weight: [89.5 kg (197 lb 4.8 oz)-89.6 kg (197 lb 8.5 oz)] 89.6 kg (197 lb 8.5 oz) O2 Device: room air (10/03/18 0727) Intake/Output last 3 shifts: I/O last 3 completed shifts: In: 750 [P.O.:750] Out: 950 [Urine:950] Gen: ??Alert, Awake, NAD Resp: ??CTA & P, normal respiratory effort Cardio: Tachycardia , abnormal rhythum, no M/R/G. 1+ANA. GI: ??S/NT/ND, NABS MS: ??No joint effusions or erythema: Skin: No jaundice or rash DATA REVIEW WBC/Hgb/Hct/Plts: 6.72/11.1/33.1/104 (10/03 307) Na/K+/Phos/Mg/Ca: 134/3.6/3.5/1.7/8.5 (10/02 2124-10/03 307) Bun/Creat/Cl/CO2/Glucose: 23/1.63/100/25/151 (10/03 307) Ptt/Pt/Inr: 33.9/14.6/1.1 (10/03 307) Body mass index is 30.93 kg/m??. Signed, Eren Peña MD in this encounter Plan of Treatment Upcoming Encounters Date Type Specialty Care Team Description 10/23/2018 Office Visit Palliative Medicine Carlo White MD [address] [place] [phone] 10/25/2018 Office Visit Cardiovascular Medicine Anabella Lomax MD [address] [facility] [address] [place] [address] 11/04/2018 Appointment Computerized Tomography Sulma Reese MD Scan [address] [place] [address] 11/11/2018 Office Visit Neurologic Surgery Prachi Miller MD, PhD [address] [place] [address] 02/13/2019 Office Visit Cardiovascular Medicine Sulma Reese MD [address] [place] [address] Scheduled Tests Name Priority Associated Diagnoses Order Schedule ECG STAT Needed until discontinued starting 10/02/2018, 3 completed PLATELET COUNT Routine Every 3 days in the AM Lab until discontinued starting 10/03/2018 POTASSIUM Routine UD PRN until discontinued starting 10/03/2018, 1 completed MAGNESIUM Routine UD PRN until discontinued starting 10/03/2018, 1 completed MAGNESIUM Routine Every morning Lab until discontinued starting 10/04/2018, 6 completed ECG STAT Needed until discontinued starting 10/04/2018 CHEM 7 Routine Every morning Lab until (LYTES,BUN,CREA,GLUC) discontinued starting 10/05/2018, 6 completed CBC,PLATELETS Routine Every morning Lab until discontinued starting 10/06/2018, [address] HEAD WITHOUT CONTRAST Routine Subdural hematoma Expected: 10/23/2018, Expires: 10/10/2019 Scheduled Referrals Name Priority Associated Diagnoses Order Schedule IP CONSULT TO PHYSICAL Routine One Time for 1 THERAPY Occurrences starting 10/03/2018 until 10/03/2018 IP CONSULT TO OCCUPATIONAL Routine One Time for 1 THERAPY Occurrences starting 10/03/2018 until 10/03/2018 IP CONSULT TO WOUND / Routine One Time for 1 OSTOMY NURSING TEAM Occurrences starting 10/04/2018 until 10/04/2018 AMB REFERRAL TO HOME HEALTH Routine Acute on chronic Ordered: 10/08/2018 - INPATIENT DISCHARGE RICHARD systolic congestive heart failure AMB REFERRAL TO CARDIAC Routine Acute on chronic Ordered: 10/08/2018 REHAB systolic congestive heart failure IP CONSULT TO PHYSICAL Routine One Time for 1 THERAPY Occurrences starting 10/08/2018 until 10/08/2018 IP CONSULT TO OCCUPATIONAL Routine One Time for 1 THERAPY Occurrences starting 10/08/2018 until 10/08/2018 AMB REFERRAL TO PALLIATIVE Routine Palliative care by 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: 10/08/2018 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 AMB REFERRAL TO Routine Subdural hematoma Ordered: 10/10/2018 NEUROSURGERY Health Maintenance Due Date Last Done Comments TETANUS 1958 TDAP (ADULT) 1959 COLON CANCER SCREENING DISCUSSION 1990 PNEUMOCOCCAL VACCINE SERIES (1 of 2005 2 - PCV13) TSH 10/03/2019 10/03/2018, 01/04/2017, 07/06/2016, Additional history exists POTASSIUM 10/10/2019 10/10/2018, 10/10/2018, 10/09/2018, Additional history exists INFLUENZA VACCINE Completed 09/02/2018, 07/29/2017, 07/22/2016, Additional history exists as of this encounter Implants Implanted Type Area Counter Top Maker Device Expiration Model / Identifier Date Serial / Lot Leatha Trilogy Cup 58mm Right: LEATHA [id number] / Implanted: Qty: 1 on 11/07/2011 by Sudarshan Carr MD [employer] / [id number] Bone Screw Right: LEATHA [id number] / Implanted: Qty: 1 on 11/07/2011 by Sudarshan Carr MD [employer] / [id number] Leatha Liner Right: LEATHA [id number] / Implanted: Qty: 1 on 11/07/2011 by Sudarshan Carr MD [employer] / [id number] Leatha Versys Epoch Fullcoat Hip Prosthesis Size 16 Right: Femur 03/29/2018 [id number] / Implanted: Qty: 1 on 11/07/2011 by Sudarshan Carr MD / [id number] Leatha Femeral Head +0 Right: Femur LEATHA [id number] / Implanted: Qty: 1 on 11/07/2011 by Sudarshan Carr MD / [id number] Implanted - Type Area Counter Top Maker Device Expiration Date Model / Out of Service Identifier Serial / Lot Lead Pace [facility] [employer] [id number]/75 - [id number] Lead N/A: Heart [employer] 01/26/2017 [id number] / Implanted: Qty: 1 on 06/05/2014 by Saturnino Oquendo MD [id number] / as of this encounter Procedures Procedure Name Priority Date/Time Associated Diagnosis Comments GLUCOSE POC Routine 10/11/2018 12:15 Results for this PM EST procedure are in the results section. GLUCOSE POC Routine 10/11/2018 6:11 Results for this AM EST procedure are in the results section. CBC,PLATELETS Routine 10/11/2018 4:55 Results for this AM EST procedure are in the results section. CHEM 7 Routine 10/11/2018 4:55 Results for this (LYTES,BUN,CREA,GLUC) AM EST procedure are in the results section. MAGNESIUM Routine 10/11/2018 4:55 Results for this AM EST procedure are in the results section. GLUCOSE POC Routine 10/10/2018 8:51 Results for this PM EST procedure are in the results section. CHEM 7 Routine 10/10/2018 3:24 Results for this (LYTES,BUN,CREA,GLUC) PM EST procedure are in the results section. GLUCOSE POC Routine 10/10/2018 10:59 Results for this AM EST procedure are in the results section. GLUCOSE POC Routine 10/10/2018 5:58 Results for this AM EST procedure are in the results section. CBC,PLATELETS Routine 10/10/2018 1:50 Results for this AM EST procedure are in the results section. CHEM 7 Routine 10/10/2018 1:50 Results for this (LYTES,BUN,CREA,GLUC) AM EST procedure are in the results section. MAGNESIUM Routine 10/10/2018 1:50 Results for this AM EST procedure are in the results section. GLUCOSE POC Routine 10/09/2018 9:17 Results for this PM EST procedure are in the results section. GLUCOSE POC Routine 10/09/2018 4:23 Results for this PM EST procedure are in the results section. CHEM 7 Routine 10/09/2018 1:45 Results for this (LYTES,BUN,CREA,GLUC) PM EST procedure are in the results section. GLUCOSE POC Routine 10/09/2018 11:11 Results for this AM EST procedure are in the results section. GLUCOSE POC Routine 10/09/2018 6:15 Results for this AM EST procedure are in the results section. CHEM 7 Routine 10/09/2018 4:43 Results for this (LYTES,BUN,CREA,GLUC) AM EST procedure are in the results section. GLUCOSE POC Routine 10/09/2018 12:25 Results for this AM EST procedure are in the results section. CBC,PLATELETS Routine 10/08/2018 11:02 Results for this PM EST procedure are in the results section. CHEM 7 STAT 10/08/2018 11:02 Results for this (LYTES,BUN,CREA,GLUC) PM EST procedure are in the results section. MAGNESIUM STAT 10/08/2018 11:02 Results for this PM EST procedure are in the results section. GLUCOSE POC Routine 10/08/2018 8:50 Results for this PM EST procedure are in the results section. GLUCOSE POC Routine 10/08/2018 8:43 Results for this PM EST procedure are in the results section. GLUCOSE POC Routine 10/08/2018 4:48 Results for this PM EST procedure are in the results section. CHEM 7 Routine 10/08/2018 4:16 Results for this (LYTES,BUN,CREA,GLUC) PM EST procedure are in the results section. GLUCOSE POC Routine 10/08/2018 11:27 Results for this AM EST procedure are in the results section. GLUCOSE POC Routine 10/08/2018 6:08 Results for this AM EST procedure are in the results section. CBC,PLATELETS Routine 10/08/2018 4:36 Results for this AM EST procedure are in the results section. CHEM 7 Routine 10/08/2018 4:36 Results for this (LYTES,BUN,CREA,GLUC) AM EST procedure are in the results section. MAGNESIUM Routine 10/08/2018 4:36 Results for this AM EST procedure are in the results section. GLUCOSE POC Routine 10/07/2018 9:07 Results for this PM EST procedure are in the results section. GLUCOSE POC Routine 10/07/2018 4:00 Results for this PM EST procedure are in the results section. CHEM 7 Routine 10/07/2018 2:06 Results for this (LYTES,BUN,CREA,GLUC) PM EST procedure are in the results section. GLUCOSE POC Routine 10/07/2018 11:41 Results for this AM EST procedure are in the results section. GLUCOSE POC Routine 10/07/2018 5:46 Results for this AM EST procedure are in the results section. CBC,PLATELETS Routine 10/07/2018 3:57 Results for this AM EST procedure are in the results section. CHEM 7 Routine 10/07/2018 3:57 Results for this (LYTES,BUN,CREA,GLUC) AM EST procedure are in the results section. MAGNESIUM Routine 10/07/2018 3:57 Results for this AM EST procedure are in the results section. CT HEAD WITHOUT STAT 10/06/2018 10:40 Results for this CONTRAST PM EST procedure are in the results section. GLUCOSE POC Routine 10/06/2018 8:16 Results for this PM EST procedure are in the results section. CHEM 7 STAT 10/06/2018 8:13 Results for this (LYTES,BUN,CREA,GLUC) PM EST procedure are in the results section. MAGNESIUM STAT 10/06/2018 8:13 Results for this PM EST procedure are in the results section. CHEM 7 Routine 10/06/2018 1:51 Results for this (LYTES,BUN,CREA,GLUC) PM EST procedure are in the results section. GLUCOSE POC Routine 10/06/2018 12:18 Results for this PM EST procedure are in the results section. CBC,PLATELETS Routine 10/06/2018 3:05 Results for this AM EST procedure are in the results section. CHEM 7 Routine 10/06/2018 3:05 Results for this (LYTES,BUN,CREA,GLUC) AM EST procedure are in the results section. MAGNESIUM Routine 10/06/2018 3:05 Results for this AM EST procedure are in the results section. GLUCOSE POC Routine 10/05/2018 5:25 Results for this PM EST procedure are in the results section. POTASSIUM Routine 10/05/2018 2:19 Results for this PM EST procedure are in the results section. MAGNESIUM Routine 10/05/2018 2:19 Results for this PM EST procedure are in the results section. CHEM 7 Routine 10/05/2018 12:27 Results for this (LYTES,BUN,CREA,GLUC) PM EST procedure are in the results section. MAGNESIUM Routine 10/05/2018 12:27 Results for this PM EST procedure are in the results section. CBC, EDIF, PLATELET Routine 10/05/2018 11:11 Results for this AM EST procedure are in the results section. CHEM 7 Routine 10/05/2018 3:09 Results for this (LYTES,BUN,CREA,GLUC) AM EST procedure are in the results section. MAGNESIUM Routine 10/05/2018 3:09 Results for this AM EST procedure are in the results section. GLUCOSE POC Routine 10/04/2018 6:15 Results for this PM EST procedure are in the results section. CHEM 7 Routine 10/04/2018 6:05 Results for this (LYTES,BUN,CREA,GLUC) PM EST procedure are in the results section. URINE CULTURE Routine 10/04/2018 6:05 Results for this PM EST procedure are in the results section. MAGNESIUM Routine 10/04/2018 6:05 Results for this PM EST procedure are in the results section. AV NODE ABLATION Routine 10/04/2018 5:40 Persistent atrial Results for this PM EST fibrillation procedure are in the results section. GLUCOSE POC Routine 10/04/2018 4:44 Results for this PM EST procedure are in the results section. CASE REQUEST - EP PROC Routine 10/04/2018 2:40 (EPS, ABLATION, DEVICE) PM EST RIGHT HEART Routine 10/04/2018 2:31 Diastolic Results for this CATHETERIZATION PM EST dysfunction with procedure are in chronic heart the results failure section. POTASSIUM Routine 10/04/2018 11:43 Results for this AM EST procedure are in the results section. GLUCOSE POC Routine 10/04/2018 11:27 Results for this AM EST procedure are in the results section. ECG STAT 10/04/2018 11:[address] HEAD WITHOUT Routine 10/04/2018 10:24 Results for this CONTRAST AM EST procedure are in the results section. CASE REQUEST - CARDIAC Routine 10/04/2018 10:08 CATH AM EST GLUCOSE POC Routine 10/04/2018 7:25 Results for this AM EST procedure are in the results section. ECG Routine 10/04/2018 6:08 AM EST POTASSIUM Routine 10/04/2018 5:59 Results for this AM EST procedure are in the results section. U/A WITH MICROSCOPIC Routine 10/04/2018 5:55 Results for this AM EST procedure are in the results section. ECG STAT 10/04/2018 3:26 AM EST CHEM 7 STAT 10/04/2018 2:55 Results for this (LYTES,BUN,CREA,GLUC) AM EST procedure are in the results section. MAGNESIUM STAT 10/04/2018 2:55 Results for this AM EST procedure are in the results section. CHEM 6 (LYTES, BUN Routine 10/04/2018 1:47 Results for this CREA) AM EST procedure are in the results section. TROPONIN Routine 10/04/2018 1:47 Results for this AM EST procedure are in the results section. MAGNESIUM Routine 10/04/2018 1:47 Results for this AM EST procedure are in the results section. GLUCOSE POC Routine 10/03/2018 11:06 Results for this AM EST procedure are in the results section. DEVICE EVALUATION Routine 10/03/2018 11:06 AM EST ECHOCARDIOGRAM W/O 3D Routine 10/03/2018 9:41 Results for this W/CONTRAST AM EST procedure are in the results section. GLUCOSE POC Routine 10/03/2018 7:33 Results for this AM EST procedure are in the results section. PACEMAKER/ICD Routine 10/03/2018 7:05 INTERROGATION AM EST PT,INR,PTT Routine 10/03/2018 3:07 Results for this AM EST procedure are in the results section. CBC,PLATELETS Routine 10/03/2018 3:07 Results for this AM EST procedure are in the results section. CHEM 7 Routine 10/03/2018 3:07 Results for this (LYTES,BUN,CREA,GLUC) AM EST procedure are in the results section. TROPONIN Routine 10/03/2018 3:07 Results for this AM EST procedure are in the results section. TSH Routine 10/03/2018 3:07 Results for this AM EST procedure are in the results section. B-TYPE NATRIURETIC Routine 10/03/2018 3:07 Results for this PEPTIDE (BRAIN) AM EST procedure are in the results section. MAGNESIUM Routine 10/03/2018 3:07 Results for this AM EST procedure are in the results section. HEPATIC FUNCTION PANEL Routine 10/03/2018 3:07 Results for this AM EST procedure are in the results section. LEVETIRACETAM LEVEL Routine 10/02/2018 9:42 Results for this PM EST procedure are in the results section. PT,INR,PTT Routine 10/02/2018 9:24 Results for this PM EST procedure are in the results section. CALCIUM Routine 10/02/2018 9:24 Results for this PM EST procedure are in the results section. CHEM 7 Routine 10/02/2018 9:24 Results for this (LYTES,BUN,CREA,GLUC) PM EST procedure are in the results section. CBC, EDIF, PLATELET Routine 10/02/2018 9:24 Results for this PM EST procedure are in the results section. TROPONIN Routine 10/02/2018 9:24 Results for this PM EST procedure are in the results section. PHOSPHATE, INORGANIC Routine 10/02/2018 9:24 Results for this PM EST procedure are in the results section. MAGNESIUM Routine 10/02/2018 9:24 Results for this PM EST procedure are in the results section. HEPATIC FUNCTION PANEL Routine 10/02/2018 9:24 Results for this PM EST procedure are in the results section. GLUCOSE POC Routine 10/02/2018 7:26 Results for this PM EST procedure are in the results section. ECG STAT 10/02/2018 7:21 PM EST in this encounter Results GLUCOSE POC (10/11/2018 12:15 PM) GLUCOSE, POINT OF CARE 166 (H) 70 - 99 mg/dL LAB, PO Comment: Notified RNread back No BRAVE per RN: PATIENT TYPE sample type for POC testing Capillary Blood LAB, PO Performing Organization Address [facility] [place] LAB, PO LAB, PO Point of Care Testing, Test performed at the address of, the patient encounter GLUCOSE POC (10/11/2018 6:11 AM) GLUCOSE, POINT OF CARE 121 (H) 70 - 99 mg/dL LAB, PO Comment: Notified RNread back No BRAVE per RN: PATIENT TYPE sample type for POC testing Capillary Blood LAB, PO Performing Organization Address [facility] [place] Phone Number LAB, PO LAB, PO Point of Care Testing, Test performed at the address of, the patient encounter MAGNESIUM (10/11/2018 4:55 AM) MAGNESIUM 2.0 1.6 - 2.6 mg/dL LAB, [facility] Performing Organization Address City/[facility] Phone Number LAB, [facility], [address] [place] [address] CBC,PLATELETS (10/11/2018 4:55 AM) WBC (WHITE BLOOD COUNT) 6.35 3.73 - 10.10 K/uL LAB, [facility] RBC 3.95 (L) 4.38 - 5.83 M/uL LAB, [facility] HEMOGLOBIN (HGB) 13.0 (L) 13.4 - 16.8 g/dL LAB, [facility] HEMATOCRIT (HCT) 38.6 (L) 39.6 - 48.8 % LAB, [facility] MEAN CELL VOLUME 97.7 (H) 79.0 - 94.5 fL LAB, [facility] Mean Cell HGB 32.9 26.1 - 33.3 pg LAB, [facility] MEAN CELL HGB CONCENTRATION 33.7 31.9 - 36.5 g/dL LAB, [facility] RBC DISTRIBUTION 13.4 10.9 - 14.3 % LAB, [facility] PLATELET COUNT 184 146 - 337 K/uL LAB, [facility] MEAN PLATELET VOLUME 9.9 8.7 - 12.3 fL LAB, [facility] RBC, NUCLEATED 0.0 0.0 - 0.2 /100 WBC LAB, [facility] Performing Organization Address [facility] [place] LAB, [facility], [address] [place] [address] CHEM 7 (LYTES,BUN,CREA,GLUC) (10/11/2018 4:55 AM) BUN 39 (H) 7 - 22 mg/dL LAB, [facility] SODIUM 132 (L) 133 - 143 mmol/L LAB, [facility] POTASSIUM 3.7 3.5 - 5.0 mmol/L LAB, [facility] CHLORIDE 96 (L) 98 - 108 mmol/L LAB, [facility] CARBON DIOXIDE (CO2) 24 22 - 30 mmol/L LAB, [facility] GLUCOSE 119 (H) 70 - 99 mg/dL LAB, [facility] CREATININE SERUM 2.03 (H) 0.70 - 1.30 mg/dL LAB, [facility] ANION GAP 16 7 - 17 mmol/L LAB, [facility] BUN/CREA RATIO 19 LAB, [facility] OSMOLALITY (CALC) 288 278 - 305 mOsm/kg LAB, [facility] ESTIMATED GFR, NON AMER 32 (L) >60 mL/min/1.73sqM LAB, [facility] ESTIMATED GFR, 39 (L) >60 mL/min/1.73sqM LAB, [facility] Performing Organization Address [facility] [place] LAB, [facility], [address] [place] [address] GLUCOSE POC (10/10/2018 8:51 PM) GLUCOSE, POINT OF CARE 167 (H) 70 - 99 mg/dL LAB, PO Comment: Notified RNread back No BRAVE per RN: PATIENT TYPE sample type for POC testing Capillary Blood LAB, PO Performing Organization Address [facility] [place] Phone Number LAB, PO LAB, PO Point of Care Testing, Test performed at the address of, the patient encounter CHEM 7 (LYTES,BUN,CREA,GLUC) (10/10/2018 3:24 PM) BUN 40 (H) 7 - 22 mg/dL LAB, [facility] SODIUM 131 (L) 133 - 143 mmol/L LAB, [facility] POTASSIUM 4.0 3.5 - 5.0 mmol/L LAB, [facility] CHLORIDE 93 (L) 98 - 108 mmol/L LAB, [facility] CARBON DIOXIDE (CO2) 28 22 - 30 mmol/L LAB, [facility] GLUCOSE 154 (H) 70 - 99 mg/dL LAB, [facility] CREATININE SERUM 2.33 (H) 0.70 - 1.30 mg/dL LAB, [facility] ANION GAP 14 7 - 17 mmol/L LAB, [facility] BUN/CREA RATIO 17 LAB, [facility] OSMOLALITY (CALC) 289 278 - 305 mOsm/kg LAB, [facility] ESTIMATED GFR, NON AMER 27 (L) >60 mL/min/1.73sqM LAB, [facility] ESTIMATED GFR, 33 (L) >60 mL/min/1.73sqM LAB, [facility] Performing Organization Address [facility] [place] Phone [place] LAB, [facility], [address] [place] [address] GLUCOSE POC (10/10/2018 10:59 AM) GLUCOSE, POINT OF CARE 230 (H)Comment: No BRAVE per 70 - 99 mg/dL LAB, PO RN: PATIENT TYPE sample type for POC testing Capillary Blood LAB, PO Performing Organization Address [facility] [place] Phone Number LAB, PO LAB, PO Point of Care Testing, Test performed at the address of, the patient encounter GLUCOSE POC (10/10/2018 5:58 AM) GLUCOSE, POINT OF CARE 139 (H) 70 - 99 mg/dL LAB, PO Comment: Notified RNread back No BRAVE per RN: PATIENT TYPE sample type for POC testing Capillary Blood LAB, PO Performing Organization Address [place]/[facility] [place] Phone Number LAB, PO LAB, PO Point of Care Testing, Test performed at the address of, the patient encounter CBC,PLATELETS (10/10/2018 1:50 AM) WBC (WHITE BLOOD COUNT) 7.42 3.73 - 10.10 K/uL LAB, [facility] RBC 3.96 (L) 4.38 - 5.83 M/uL LAB, [facility] HEMOGLOBIN (HGB) 13.3 (L) 13.4 - 16.8 g/dL LAB, [facility] HEMATOCRIT (HCT) 38.8 (L) 39.6 - 48.8 % LAB, [facility] MEAN CELL VOLUME 98.0 (H) 79.0 - 94.5 fL LAB, [facility] Mean Cell HGB 33.6 (H) 26.1 - 33.3 pg LAB, [facility] MEAN CELL HGB CONCENTRATION 34.3 31.9 - 36.5 g/dL LAB, [facility] RBC DISTRIBUTION 13.4 10.9 - 14.3 % LAB, [facility] PLATELET COUNT 176 146 - 337 K/uL LAB, [facility] MEAN PLATELET VOLUME 9.6 8.7 - 12.3 fL LAB, [facility] RBC, NUCLEATED 0.0 0.0 - 0.2 /100 WBC LAB, [facility] Performing Organization Address City/State/Zipcode Phone Number LAB, [facility], [address] [place] [address] [address] [facility] [address] CHEM 7 (LYTES,BUN,CREA,GLUC) (10/10/2018 1:50 AM) BUN 39 (H) 7 - 22 mg/dL LAB, [facility] SODIUM 132 (L) 133 - 143 mmol/L LAB, [facility] POTASSIUM 3.9 3.5 - 5.0 mmol/L LAB, [facility] CHLORIDE 93 (L) 98 - 108 mmol/L LAB, [facility] CARBON DIOXIDE (CO2) 27 22 - 30 mmol/L LAB, [facility] GLUCOSE 195 (H) 70 - 99 mg/dL LAB, [facility] CREATININE SERUM 2.26 (H) 0.70 - 1.30 mg/dL LAB, [facility] ANION GAP 16 7 - 17 mmol/L LAB, [facility] BUN/CREA RATIO 17 LAB, [facility] OSMOLALITY (CALC) 293 278 - 305 mOsm/kg LAB, [facility] ESTIMATED GFR, NON AMER 28 (L) >60 mL/min/1.73sqM LAB, [facility] ESTIMATED GFR, 34 (L) >60 mL/min/1.73sqM LAB, [facility] Performing Organization Address [facility] [place] LAB, [facility], [address] [place] [address] MAGNESIUM (10/10/2018 1:50 AM) MAGNESIUM 2.3 1.6 - 2.6 mg/dL LAB, [facility] Performing Organization Address [facility] [place] Phone Number LAB, [facility], [address] [place] [address] GLUCOSE POC (10/09/2018 9:17 PM) GLUCOSE, POINT OF CARE 162 (H) 70 - 99 mg/dL LAB, PO Comment: Notified RNread back No BRAVE per RN: PATIENT TYPE sample type for POC testing Capillary Blood LAB, PO Performing Organization Address [facility] [place] LAB, PO LAB, PO Point of Care Testing, Test performed at the address of, the patient encounter GLUCOSE POC (10/09/2018 4:23 PM) GLUCOSE, POINT OF CARE 146 (H)Comment: No BRAVE per 70 - 99 mg/dL LAB, PO RN: PATIENT TYPE sample type for POC testing Capillary Blood LAB, PO Performing Organization Address [facility] [place] [facility] [place] Phone Number LAB, PO LAB, PO Point of Care Testing, Test performed at the address of, the patient encounter CHEM 7 (LYTES,BUN,CREA,GLUC) (10/09/2018 1:45 PM) BUN 41 (H) 7 - 22 mg/dL LAB, [facility] SODIUM 133 133 - 143 mmol/L [facility], [facility] POTASSIUM 3.9 3.5 - 5.0 mmol/L LAB, [facility] CHLORIDE 94 (L) 98 - 108 mmol/L LAB, [facility] CARBON DIOXIDE (CO2) 27 22 - 30 mmol/L LAB, [facility] GLUCOSE 171 (H) 70 - 99 mg/dL LAB, [facility] CREATININE SERUM 2.24 (H) 0.70 - 1.30 mg/dL LAB, [facility] ANION GAP 16 7 - 17 mmol/L LAB, [facility] BUN/CREA RATIO 18 LAB, [facility] OSMOLALITY (CALC) 294 278 - 305 mOsm/kg LAB, [facility] ESTIMATED GFR, NON AMER 28 (L) >60 mL/min/1.73sqM LAB, [facility] ESTIMATED GFR, 34 (L) >60 mL/min/1.73sqM LAB, [facility] Performing Organization Address City/[facility] [place] [facility] [place] Number LAB, [facility], [address] [place] [address] GLUCOSE POC (10/09/2018 11:11 AM) GLUCOSE, POINT OF CARE 250 (H) 70 - 99 mg/dL LAB, PO Comment: Notified RNread back No BRAVE per RN: PATIENT TYPE sample type for POC testing Capillary Blood LAB, PO Performing Organization Address [facility] [place] [facility] [place] Phone Number LAB, PO LAB, PO Point of Care Testing, Test performed at the address of, the patient encounter GLUCOSE POC (10/09/2018 6:15 AM) GLUCOSE, POINT OF CARE 124 (H) 70 - 99 mg/dL LAB, PO Comment: Notified RNread back No BRAVE per RN: PATIENT TYPE sample type for POC testing Capillary Blood LAB, PO Performing Organization Address [facility] [place] [facility] [place] Number LAB, PO LAB, PO Point of Care Testing, Test performed at the address of, the patient encounter CHEM 7 (LYTES,BUN,CREA,GLUC) (10/09/2018 4:43 AM) BUN 42 (H) 7 - 22 mg/dL LAB, [facility] SODIUM 131 (L) 133 - 143 mmol/L LAB, [facility] POTASSIUM 4.1 3.5 - 5.0 mmol/L LAB, [facility] CHLORIDE 93 (L) 98 - 108 mmol/L LAB, [facility] CARBON DIOXIDE (CO2) 28 22 - 30 mmol/L LAB, [facility] GLUCOSE 125 (H) 70 - 99 mg/dL LAB, [facility] CREATININE SERUM 2.14 (H) 0.70 - 1.30 mg/dL LAB, [facility] ANION GAP 14 7 - 17 mmol/L LAB, [facility] BUN/CREA RATIO 20 LAB, [facility] OSMOLALITY (CALC) 288 278 - 305 mOsm/kg LAB, [facility] ESTIMATED GFR, NON AMER 30 (L) >60 mL/min/1.73sqM LAB, [facility] ESTIMATED GFR, 36 (L) >60 mL/min/1.73sqM LAB, [facility] Performing Organization Address [facility] [place] [facility] [place] Phone Number LAB, [facility], [address] [place] [address] GLUCOSE POC (10/09/2018 12:25 AM) GLUCOSE, POINT OF CARE 221 (H) 70 - 99 mg/dL LAB, PO Comment: Notified RNread back No BRAVE per RN: PATIENT TYPE sample type for POC testing Capillary Blood LAB, PO Performing Organization Address [facility] Number LAB, PO LAB, PO Point of Care Testing, Test performed at the address of, the patient encounter MAGNESIUM (10/08/2018 11:02 PM) MAGNESIUM 2.3 1.6 - 2.6 mg/dL LAB, [facility] Performing Organization Address [facility] Number LAB, [facility], [address] [place] [address] CHEM 7 (LYTES,BUN,CREA,GLUC) (10/08/2018 11:02 PM) BUN 44 (H) 7 - 22 mg/dL LAB, [facility] SODIUM 125 (L) 133 - 143 mmol/L LAB, [facility] POTASSIUM 3.4 (L) 3.5 - 5.0 mmol/L LAB, [facility] CHLORIDE 86 (L) 98 - 108 mmol/L LAB, [facility] CARBON DIOXIDE (CO2) 28 22 - 30 mmol/L LAB, [facility] GLUCOSE 289 (H) 70 - 99 mg/dL LAB, [facility] CREATININE SERUM 2.25 (H) 0.70 - 1.30 mg/dL LAB, [facility] ANION GAP 14 7 - 17 mmol/L LAB, [facility] BUN/CREA RATIO 20 LAB, [facility] OSMOLALITY (CALC) 287 278 - 305 mOsm/kg LAB, [facility] ESTIMATED GFR, NON AMER 28 (L) >60 mL/min/1.73sqM LAB, [facility] ESTIMATED GFR, 34 (L) >60 mL/min/1.73sqM LAB, [facility] Performing Organization Address [facility] [place] [facility] [place] Phone Number LAB, [facility], [address] [place] [address] CBC,PLATELETS (10/08/2018 11:02 PM) WBC (WHITE BLOOD COUNT) 7.05 3.73 - 10.10 K/uL LAB, [facility] RBC 3.88 (L) 4.38 - 5.83 M/uL LAB, [facility] HEMOGLOBIN (HGB) 13.0 (L) 13.4 - 16.8 g/dL LAB, [facility] HEMATOCRIT (HCT) 37.9 (L) 39.6 - 48.8 % LAB, [facility] MEAN CELL VOLUME 97.7 (H) 79.0 - 94.5 fL LAB, [facility] Mean Cell HGB 33.5 (H) 26.1 - 33.3 pg LAB, [facility] MEAN CELL HGB CONCENTRATION 34.3 31.9 - 36.5 g/dL LAB, [facility] RBC DISTRIBUTION 13.4 10.9 - 14.3 % LAB, [facility] PLATELET COUNT 166 146 - 337 K/uL LAB, [facility] MEAN PLATELET VOLUME 9.6 8.7 - 12.3 fL LAB, [facility] RBC, NUCLEATED 0.0 0.0 - 0.2 /100 WBC LAB, [facility] Performing Organization Address [facility] [place] [facility] [place] Phone Number LAB, [facility], [address] [place] [address] GLUCOSE POC (10/08/2018 8:50 PM) GLUCOSE, POINT OF CARE 332 (H) 70 - 99 mg/dL LAB, PO Comment: Notified RNread back No BRAVE per RN: PATIENT TYPE sample type for POC testing Capillary Blood LAB, PO Performing Organization Address [facility] LAB, PO LAB, PO Point of Care Testing, Test performed at the address of, the patient encounter GLUCOSE POC (10/08/2018 8:43 PM) GLUCOSE, POINT OF CARE 310 (H) 70 - 99 mg/dL LAB, PO Comment: Notified RNread back No BRAVE per RN: PATIENT TYPE sample type for POC testing Capillary Blood LAB, PO Performing Organization Address [facility] [place] [facility] [place] Phone Number LAB, PO LAB, PO Point of Care Testing, Test performed at the address of, the patient encounter GLUCOSE POC (10/08/2018 4:48 PM) GLUCOSE, POINT OF CARE 192 (H)Comment: No BRAVE per 70 - 99 mg/dL LAB, PO RN: PATIENT TYPE sample type for POC testing Venous LAB, PO Performing Organization Address [facility] [place] [facility] [place] Phone Number LAB, PO LAB, PO Point of Care Testing, Test performed at the address of, the patient encounter CHEM 7 (LYTES,BUN,CREA,GLUC) (10/08/2018 4:16 PM) BUN 46 (H) 7 - 22 mg/dL LAB, [facility] SODIUM 129 (L) 133 - 143 mmol/L LAB, [facility] POTASSIUM 4.4Comment: SLIGHTLY 3.5 - 5.0 mmol/L LAB, [facility] HEMOLYZED CHLORIDE 87 (L) 98 - 108 mmol/L LAB, [facility] CARBON DIOXIDE (CO2) 30 22 - 30 mmol/L LAB, [facility] GLUCOSE 203 (H) 70 - 99 mg/dL LAB, [facility] CREATININE SERUM 2.44 (H) 0.70 - 1.30 mg/dL LAB, [facility] ANION GAP 16 7 - 17 mmol/L LAB, [facility] BUN/CREA RATIO 19 LAB, [facility] OSMOLALITY (CALC) 292 278 - 305 mOsm/kg LAB, [facility] ESTIMATED GFR, NON 26 (L) >60 mL/min/1.73sqM LAB, [facility] AMER ESTIMATED GFR, 31 (L) >60 mL/min/1.73sqM LAB, [facility] MALAYSIAN Performing Organization Address [facility] Number LAB, [facility], [address] [place] [address] GLUCOSE POC (10/08/2018 11:27 AM) GLUCOSE, POINT OF CARE 196 (H)Comment: No BRAVE per 70 - 99 mg/dL LAB, PO RN: PATIENT TYPE sample type for POC testing Capillary Blood LAB, PO Performing Organization Address [facility] [place] [facility] [place] Phone Number LAB, PO LAB, PO Point of Care Testing, Test performed at the address of, the patient encounter GLUCOSE POC (10/08/2018 6:08 AM) GLUCOSE, POINT OF CARE 166 (H) 70 - 99 mg/dL LAB, PO Comment: Notified RNread back No BRAVE per RN: PATIENT TYPE sample type for POC testing Capillary Blood LAB, PO Performing Organization Address [facility] [place] [facility] [place] Phone Number LAB, PO LAB, PO Point of Care Testing, Test performed at the address of, the patient encounter CBC,PLATELETS (10/08/2018 4:36 AM) WBC (WHITE BLOOD COUNT) 7.53 3.73 - 10.10 K/uL LAB, [facility] RBC 4.13 (L) 4.38 - 5.83 M/uL LAB, [facility] HEMOGLOBIN (HGB) 13.7 13.4 - 16.8 g/dL LAB, [facility] HEMATOCRIT (HCT) 40.1 39.6 - 48.8 % LAB, [facility] MEAN CELL VOLUME 97.1 (H) 79.0 - 94.5 fL LAB, [facility] Mean Cell HGB 33.2 26.1 - 33.3 pg LAB, [facility] MEAN CELL HGB CONCENTRATION 34.2 31.9 - 36.5 g/dL LAB, [facility] RBC DISTRIBUTION 13.7 10.9 - 14.3 % LAB, [facility] PLATELET COUNT 176 146 - 337 K/uL LAB, [facility] MEAN PLATELET VOLUME 10.1 8.7 - 12.3 fL LAB, [facility] RBC, NUCLEATED 0.0 0.0 - 0.2 /100 WBC LAB, [facility] Performing Organization Address City/State/Zipcode Phone Number LAB, [facility], [address] [place] [address] CHEM 7 (LYTES,BUN,CREA,GLUC) (10/08/2018 4:36 AM) BUN 44 (H) 7 - 22 mg/dL LAB, [facility] SODIUM 132 (L) 133 - 143 mmol/L LAB, [facility] POTASSIUM 4.1 3.5 - 5.0 mmol/L LAB, [facility] CHLORIDE 89 (L) 98 - 108 mmol/L LAB, [facility] CARBON DIOXIDE (CO2) 34 (H) 22 - 30 mmol/L LAB, [facility] GLUCOSE 157 (H) 70 - 99 mg/dL LAB, [facility] CREATININE SERUM 2.37 (H) 0.70 - 1.30 mg/dL LAB, [facility] ANION GAP 13 7 - 17 mmol/L LAB, [facility] BUN/CREA RATIO 19 LAB, [facility] OSMOLALITY (CALC) 293 278 - 305 mOsm/kg LAB, [facility] ESTIMATED GFR, NON AMER 27 (L) >60 mL/min/1.73sqM LAB, [facility] ESTIMATED GFR, 32 (L) >60 mL/min/1.73sqM LAB, [facility] Performing Organization Address [facility] [place] [facility] [place] Phone Number LAB, [facility], [address] [place] [address] MAGNESIUM (10/08/2018 4:36 AM) MAGNESIUM 2.2 1.6 - 2.6 mg/dL LAB, [facility] Performing Organization Address [facility] [place] [facility] [place] Phone Number LAB, [facility], [address] [place] [address] GLUCOSE POC (10/07/2018 9:07 PM) GLUCOSE, POINT OF CARE 282 (H) 70 - 99 mg/dL LAB, PO Comment: Notified RNread back No BRAVE per RN: PATIENT TYPE sample type for POC testing Capillary Blood LAB, PO Performing Organization Address [facility] [place] [facility] [place] Phone Number LAB, PO LAB, PO Point of Care Testing, Test performed at the address of, the patient encounter GLUCOSE POC (10/07/2018 4:00 PM) GLUCOSE, POINT OF CARE 310 (H)Comment: No BRAVE per 70 - 99 mg/dL LAB, PO RN: PATIENT TYPE sample type for POC testing Capillary Blood LAB, PO Performing Organization Address [facility] [place] [facility] [place] Phone Number LAB, PO LAB, PO Point of Care Testing, Test performed at the address of, the patient encounter CHEM 7 (LYTES,BUN,CREA,GLUC) (10/07/2018 2:06 PM) BUN 47 (H) 7 - 22 mg/dL LAB, [facility] SODIUM 134 133 - 143 mmol/L LAB, [facility] POTASSIUM 4.2 3.5 - 5.0 mmol/L LAB, [facility] CHLORIDE 86 (L) 98 - 108 mmol/L LAB, [facility] CARBON DIOXIDE (CO2) 36 (H) 22 - 30 mmol/L LAB, [facility] GLUCOSE 193 (H) 70 - 99 mg/dL LAB, [facility] CREATININE SERUM 2.71 (H) 0.70 - 1.30 mg/dL LAB, [facility] ANION GAP 16 7 - 17 mmol/L LAB, [facility] BUN/CREA RATIO 17 LAB, [facility] OSMOLALITY (CALC) 300 278 - 305 mOsm/kg LAB, [facility] ESTIMATED GFR, NON AMER 23 (L) >60 mL/min/1.73sqM LAB, [facility] ESTIMATED GFR, 28 (L) >60 mL/min/1.73sqM LAB, [facility] Performing Organization Address [facility] [place] [facility] [place] Phone Number LAB, [facility], [address] [place] [address] GLUCOSE POC (10/07/2018 11:41 AM) GLUCOSE, POINT OF CARE 245 (H)Comment: No BRAVE per 70 - 99 mg/dL LAB, PO RN: PATIENT TYPE sample type for POC testing Capillary Blood LAB, PO Performing Organization Address [facility] [place] [facility] [place] Phone Number LAB, PO LAB, PO Point of Care Testing, Test performed at the address of, the patient encounter GLUCOSE POC (10/07/2018 5:46 AM) GLUCOSE, POINT OF CARE 160 (H)Comment: No BRAVE per 70 - 99 mg/dL LAB, PO RN: PATIENT TYPE sample type for POC testing Capillary Blood LAB, PO Performing Organization Address [facility] Number LAB, PO LAB, PO Point of Care Testing, Test performed at the address of, the patient encounter CBC,PLATELETS (10/07/2018 3:57 AM) WBC (WHITE BLOOD COUNT) 7.95 3.73 - 10.10 K/uL LAB, [facility] RBC 3.95 (L) 4.38 - 5.83 M/uL LAB, [facility] HEMOGLOBIN (HGB) 13.2 (L) 13.4 - 16.8 g/dL LAB, [facility] HEMATOCRIT (HCT) 38.6 (L) 39.6 - 48.8 % LAB, [facility] MEAN CELL VOLUME 97.7 (H) 79.0 - 94.5 fL LAB, [facility] Mean Cell HGB 33.4 (H) 26.1 - 33.3 pg LAB, [facility] MEAN CELL HGB CONCENTRATION 34.2 31.9 - 36.5 g/dL LAB, [facility] RBC DISTRIBUTION 13.5 10.9 - 14.3 % LAB, [facility] PLATELET COUNT 164 146 - 337 K/uL LAB, [facility] MEAN PLATELET VOLUME 9.8 8.7 - 12.3 fL LAB, [facility] RBC, NUCLEATED 0.0 0.0 - 0.2 /100 WBC LAB, [facility] Performing Organization Address [facility] [place] [facility] [place] Phone Number LAB, [facility], [address] [place] [address] CHEM 7 (LYTES,BUN,CREA,GLUC) (10/07/2018 3:57 AM) BUN 45 (H) 7 - 22 mg/dL LAB, [facility] SODIUM 135 133 - 143 mmol/L LAB, [facility] POTASSIUM 3.7 3.5 - 5.0 mmol/L LAB, [facility] CHLORIDE 87 (L) 98 - 108 mmol/L LAB, [facility] CARBON DIOXIDE (CO2) 36 (H) 22 - 30 mmol/L LAB, [facility] GLUCOSE 148 (H) 70 - 99 mg/dL LAB, [facility] CREATININE SERUM 2.66 (H) 0.70 - 1.30 mg/dL LAB, [facility] ANION GAP 16 7 - 17 mmol/L LAB, [facility] BUN/CREA RATIO 17 LAB, [facility] OSMOLALITY (CALC) 298 278 - 305 mOsm/kg LAB, [facility] ESTIMATED GFR, NON AMER 23 (L) >60 mL/min/1.73sqM LAB, [facility] ESTIMATED GFR, 28 (L) >60 mL/min/1.73sqM LAB, [facility] Performing Organization Address City/[facility] [place] [facility] [place] Phone Number LAB, [facility], [address] [place] [address] MAGNESIUM (10/07/2018 3:57 AM) MAGNESIUM 2.3 1.6 - 2.6 mg/dL LAB, [facility] Performing Organization Address City/[facility] [place] [facility] [place] Phone Number LAB, [facility], [address] [place] [address] HEAD WITHOUT CONTRAST (10/06/2018 10:40 PM) Impressions Performed At IMPRESSION: RADIOLOGY No significant interval change from the prior exam. Stable 3-4 mm extra-axial soft tissue thickening/collection underlying the craniotomy site extending along the left frontal convexity. No significant mass effect or midline shift. I personally viewed and interpreted these images and I have reviewed and approved this report. Narrative Performed At EXAM:?CT HEAD WITHOUT CONTRAST, 10/06/2018 10:40 PM RADIOLOGY COMPARISON: CT head, 10/04/2018 CLINICAL INDICATIONS: 78 years Male Breakthrough seizure, known bleed; evaluate; TECHNIQUE: A series of transaxial computerized tomographic images are obtained from base of skull to vertex without intravenous contrast. Axial whole-head and thin section posterior fossa slices are provided. Reformats: Sagittal and coronal. FINDINGS: There are some postsurgical changes consistent with left frontoparietal craniotomy. There is a stable appearing 3 mm extra-axial soft tissue thickening/collection underlying the craniotomy site, extending along the left frontal convexity, previously 3 mm in thickness. There is no significant mass effect or midline shift. There are patchy areas of low attenuation in the periventricular and subcortical white matter, which are nonspecific but compatible with small vessel ischemic disease.?Scattered atherosclerotic calcifications within the intracranial carotid and vertebral arteries at the level of the skull base. Stable mild ex vacuo dilatation of the left lateral ventricle. Posterior fossa is within normal limits. Calvarium and skull base appear otherwise intact.?Visualized sinuses show no air fluid levels. Bilateral cataract surgery. Procedure Note User, Interfaces - 10/07/2018 12:33 PM EST EXAM: CT HEAD WITHOUT CONTRAST, 10/06/2018 10:40 PM COMPARISON: CT head, 10/04/2018 CLINICAL INDICATIONS: 78 years Male Breakthrough seizure, known bleed; evaluate; TECHNIQUE: A series of transaxial computerized tomographic images are obtained from base of skull to vertex without intravenous contrast. Axial whole-head and thin section posterior fossa slices are provided. Reformats: Sagittal and coronal. FINDINGS: There are some postsurgical changes consistent with left frontoparietal craniotomy. There is a stable appearing 3 mm extra-axial soft tissue thickening/collection underlying the craniotomy site, extending along the left frontal convexity, previously 3 mm in thickness. There is no significant mass effect or midline shift. There are patchy areas of low attenuation in the periventricular and subcortical white matter, which are nonspecific but compatible with small vessel ischemic disease. Scattered atherosclerotic calcifications within the intracranial carotid and vertebral arteries at the level of the skull base. Stable mild ex vacuo dilatation of the left lateral ventricle. Posterior fossa is within normal limits. Calvarium and skull base appear otherwise intact. Visualized sinuses show no air fluid levels. Bilateral cataract surgery. IMPRESSION IMPRESSION: No significant interval change from the prior exam. Stable 3-4 mm extra-axial soft tissue thickening/collection underlying the craniotomy site extending along the left frontal convexity. No significant mass effect or midline shift. I personally viewed and interpreted these images and I have reviewed and approved this report. Performing Organization Address City/[facility] Phone Number RADIOLOGY GLUCOSE POC (10/06/2018 8:16 PM) GLUCOSE, POINT OF CARE 238 (H)Comment: No BRAVE per 70 - 99 mg/dL LAB, PO RN: PATIENT TYPE sample type for POC testing Venous LAB, PO Performing Organization Address [facility] Phone Number LAB, PO LAB, PO Point of Care Testing, Test performed at the address of, the patient encounter MAGNESIUM (10/06/2018 8:13 PM) MAGNESIUM 2.1 1.6 - 2.6 mg/dL LAB, [facility] Performing Organization Address City/[facility] Phone Number LAB, [facility], [address] [place] [address] CHEM 7 (LYTES,BUN,CREA,GLUC) (10/06/2018 8:13 PM) BUN 45 (H) 7 - 22 mg/dL LAB, [facility] SODIUM 132 (L) 133 - 143 mmol/L LAB, [facility] POTASSIUM 3.8 3.5 - 5.0 mmol/L LAB, [facility] CHLORIDE 85 (L) 98 - 108 mmol/L LAB, [facility] CARBON DIOXIDE (CO2) 29 22 - 30 mmol/L LAB, [facility] GLUCOSE 248 (H) 70 - 99 mg/dL LAB, [facility] CREATININE SERUM 2.58 (H) 0.70 - 1.30 mg/dL LAB, [facility] ANION GAP 22 (H) 7 - 17 mmol/L LAB, [facility] BUN/CREA RATIO 17 LAB, [facility] OSMOLALITY (CALC) 299 278 - 305 mOsm/kg LAB, [facility] ESTIMATED GFR, NON AMER 24 (L) >60 mL/min/1.73sqM LAB, [facility] ESTIMATED GFR, 29 (L) >60 mL/min/1.73sqM LAB, [facility] Performing Organization Address City/[facility]/Zipcode Phone Number LAB, [facility], [address] [place] [address] CHEM 7 (LYTES,BUN,CREA,GLUC) (10/06/2018 1:51 PM) BUN 46 (H) 7 - 22 mg/dL LAB, [facility] SODIUM 131 (L) 133 - 143 mmol/L LAB, [facility] POTASSIUM 4.0 3.5 - 5.0 mmol/L LAB, [facility] CHLORIDE 86 (L) 98 - 108 mmol/L LAB, [facility] CARBON DIOXIDE (CO2) 35 (H) 22 - 30 mmol/L LAB, [facility] GLUCOSE 260 (H) 70 - 99 mg/dL LAB, [facility] CREATININE SERUM 2.69 (H) 0.70 - 1.30 mg/dL LAB, [facility] ANION GAP 14 7 - 17 mmol/L LAB, [facility] BUN/CREA RATIO 17 LAB, [facility] OSMOLALITY (CALC) 298 278 - 305 mOsm/kg LAB, [facility] ESTIMATED GFR, NON AMER 23 (L) >60 mL/min/1.73sqM LAB, [facility] ESTIMATED GFR, 28 (L) >60 mL/min/1.73sqM LAB, [facility] Performing Organization Address [facility] Number LAB, [facility], [address] [place] [address] GLUCOSE POC (10/06/2018 12:18 PM) GLUCOSE, POINT OF CARE 182 (H)Comment: No BRAVE per 70 - 99 mg/dL LAB, PO RN: PATIENT TYPE sample type for POC testing Capillary Blood LAB, PO Performing Organization Address [facility] Number LAB, PO LAB, PO Point of Care Testing, Test performed at the address of, the patient encounter CBC,PLATELETS (10/06/2018 3:05 AM) WBC (WHITE BLOOD COUNT) 9.79 3.73 - 10.10 K/uL LAB, [facility] RBC 3.75 (L) 4.38 - 5.83 M/uL LAB, [facility] HEMOGLOBIN (HGB) 12.4 (L) 13.4 - 16.8 g/dL LAB, [facility] HEMATOCRIT (HCT) 37.0 (L) 39.6 - 48.8 % LAB, [facility] MEAN CELL VOLUME 98.7 (H) 79.0 - 94.5 fL LAB, [facility] Mean Cell HGB 33.1 26.1 - 33.3 pg LAB, [facility] MEAN CELL HGB CONCENTRATION 33.5 31.9 - 36.5 g/dL LAB, [facility] RBC DISTRIBUTION 13.8 10.9 - 14.3 % LAB, [facility] PLATELET COUNT 135 (L) 146 - 337 K/uL LAB, [facility] MEAN PLATELET VOLUME NOT MEASURED 8.7 - 12.3 fL LAB, [facility] RBC, NUCLEATED 0.0 0.0 - 0.2 /100 WBC LAB, [facility] Performing Organization Address [facility] [place] Phone Number LAB, [facility], [address] [place] [address] CHEM 7 (LYTES,BUN,CREA,GLUC) (10/06/2018 3:05 AM) BUN 42 (H) 7 - 22 mg/dL LAB, [facility] SODIUM 135 133 - 143 mmol/L LAB, [facility] POTASSIUM 3.7 3.5 - 5.0 mmol/L LAB, [facility] CHLORIDE 90 (L) 98 - 108 mmol/L LAB, [facility] CARBON DIOXIDE (CO2) 33 (H) 22 - 30 mmol/L LAB, [facility] GLUCOSE 183 (H) 70 - 99 mg/dL LAB, [facility] CREATININE SERUM 2.41 (H) 0.70 - 1.30 mg/dL LAB, [facility] ANION GAP 16 7 - 17 mmol/L LAB, [facility] BUN/CREA RATIO 17 LAB, [facility] OSMOLALITY (CALC) 299 278 - 305 mOsm/kg LAB, [facility] ESTIMATED GFR, NON AMER 26 (L) >60 mL/min/1.73sqM LAB, [facility] ESTIMATED GFR, 32 (L) >60 mL/min/1.73sqM LAB, [facility] Performing Organization Address [facility] [place] [facility] [place] Phone Number LAB, [facility], [address] [place] [address] MAGNESIUM (10/06/2018 3:05 AM) MAGNESIUM 1.8 1.6 - 2.6 mg/dL LAB, [facility] Performing Organization Address [facility] [place] [facility] [place] Phone [facility], [facility] [facility], [address] [place] [address] GLUCOSE POC (10/05/2018 5:25 PM) GLUCOSE, POINT OF CARE 237 (H)Comment: No BRAVE per 70 - 99 mg/dL LAB, PO RN: PATIENT TYPE sample type for POC testing Capillary Blood LAB, PO Performing Organization Address [facility] [place] Phone Number LAB, PO LAB, PO Point of Care Testing, Test performed at the address of, the patient encounter MAGNESIUM (10/05/2018 2:19 PM) MAGNESIUM 2.1Comment: SLIGHTLY HEMOLYZED 1.6 - 2.6 mg/dL LAB, [facility] Performing Organization Address [facility] [place] Phone Number LAB, [facility], [address] [place] [address] POTASSIUM (10/05/2018 2:19 PM) POTASSIUM 5.1 (H)Comment: SLIGHTLY HEMOLYZED 3.5 - 5.0 mmol/L LAB, [facility] Performing Organization [facility] Number LAB, [facility], [address] [place] [address] MAGNESIUM (10/05/2018 12:27 PM) MAGNESIUM 2.0Comment: MODERATE HEMOLYSIS 1.6 - 2.6 mg/dL LAB, [facility] Performing Organization [facility] Number LAB, [facility], [address] [place] [address] CHEM 7 (LYTES,BUN,CREA,GLUC) (10/05/2018 12:27 PM) BUN 46 (H) 7 - 22 mg/dL LAB, [facility] SODIUM 131 (L) 133 - 143 mmol/L LAB, [facility] POTASSIUM 5.4 (H) 3.5 - 5.0 mmol/L LAB, [facility] Comment: MODERATE HEMOLYSIS Results inconsistent with the patient's previous results CHLORIDE 91 (L) 98 - 108 mmol/L LAB, [facility] CARBON DIOXIDE (CO2) 31 (H) 22 - 30 mmol/L LAB, [facility] GLUCOSE 263 (H) 70 - 99 mg/dL LAB, [facility] CREATININE SERUM 2.69 (H) 0.70 - 1.30 mg/dL LAB, [facility] ANION GAP 14 7 - 17 mmol/L LAB, [facility] BUN/CREA RATIO 17 LAB, [facility] OSMOLALITY (CALC) 301 278 - 305 mOsm/kg LAB, [facility] ESTIMATED GFR, NON 23 (L) >60 mL/min/1.73sqM LAB, [facility] AMER ESTIMATED GFR, 28 (L) >60 mL/min/1.73sqM LAB, [facility] MALAYSIAN Performing Organization Address City/State/Zipcode Phone Number LAB, [facility], [address] [place] [address] CBC, EDIF, PLATELET (10/05/2018 11:11 AM) WBC (WHITE BLOOD COUNT) 8.43 3.73 - 10.10 K/uL LAB, [facility] RBC 3.46 (L) 4.38 - 5.83 M/uL LAB, [facility] HEMOGLOBIN (HGB) 11.5 (L) 13.4 - 16.8 g/dL LAB, [facility] HEMATOCRIT (HCT) 34.4 (L) 39.6 - 48.8 % LAB, [facility] MEAN CELL VOLUME 99.4 (H) 79.0 - 94.5 fL LAB, [facility] Mean Cell HGB 33.2 26.1 - 33.3 pg LAB, [facility] MEAN CELL HGB CONCENTRATION 33.4 31.9 - 36.5 g/dL LAB, [facility] RBC DISTRIBUTION 14.1 10.9 - 14.3 % LAB, [facility] PLATELET COUNT 141 (L) 146 - 337 K/uL LAB, [facility] MEAN PLATELET VOLUME 11.4 8.7 - 12.3 fL LAB, [facility] RBC, NUCLEATED 0.0 0.0 - 0.2 /100 WBC LAB, [facility] DIFFERENTIAL TYPE Electronic Differential LAB, [facility] IMMATURE GRANS% 0.5 % LAB, [facility] NEUTROPHIL SEGMENTED 82.8 % LAB, [facility] LYMPHOCYTES 9.8 % LAB, [facility] MONOCYTE 5.0 % LAB, [facility] EOSINOPHIL 1.4 % LAB, [facility] BASOPHIL 0.5 % LAB, [facility] IMMATURE GRANS ABSOLUTE 0.04 0.00 - 0.07 K/uL LAB, [facility] SEGS + Bands, Absolute 6.98 (H) 1.57 - 6.19 K/uL LAB, [facility] LYMPHOCYTES, ABSOLUTE 0.83 0.83 - 3.57 K/uL LAB, [facility] MONOCYTES, ABSOLUTE 0.42 0.24 - 0.93 K/uL LAB, [facility] EOSINOPHILS, ABSOLUTE 0.12 0.00 - 0.48 K/uL LAB, [facility] BASOPHILS, ABSOLUTE 0.04 0.00 - 0.09 K/uL LAB, [facility] Performing Organization Address [facility] Number LAB, [facility], [address] [place] [address] CHEM 7 (LYTES,BUN,CREA,GLUC) (10/05/2018 3:09 AM) BUN 45 (H) 7 - 22 mg/dL LAB, [facility] SODIUM 134 133 - 143 mmol/L LAB, [facility] POTASSIUM 3.5 3.5 - 5.0 mmol/L LAB, [facility] CHLORIDE 93 (L) 98 - 108 mmol/L LAB, [facility] CARBON DIOXIDE (CO2) 29 22 - 30 mmol/L LAB, [facility] GLUCOSE 257 (H) 70 - 99 mg/dL LAB, [facility] CREATININE SERUM 2.81 (H) 0.70 - 1.30 mg/dL LAB, [facility] ANION GAP 16 7 - 17 mmol/L LAB, [facility] BUN/CREA RATIO 16 LAB, [facility] OSMOLALITY (CALC) 302 278 - 305 mOsm/kg LAB, [facility] ESTIMATED GFR, NON AMER 22 (L) >60 mL/min/1.73sqM LAB, [facility] ESTIMATED GFR, 27 (L) >60 mL/min/1.73sqM LAB, [facility] Performing Organization Address [facility] LAB, [facility], [address] [place] [address] MAGNESIUM (10/05/2018 3:09 AM) MAGNESIUM 1.9 1.6 - 2.6 mg/dL LAB, [facility] Performing Organization Address [facility] Number LAB, [facility], [address] [place] [address] GLUCOSE POC (10/04/2018 6:15 PM) GLUCOSE, POINT OF CARE 182 (H)Comment: No BRAVE per 70 - 99 mg/dL LAB, PO RN: PATIENT TYPE sample type for POC testing Capillary Blood LAB, PO Performing Organization Address [facility] LAB, PO LAB, PO Point of Care Testing, Test performed at the address of, the patient encounter MAGNESIUM (10/04/2018 6:05 PM) MAGNESIUM 1.9 1.6 - 2.6 mg/dL LAB, [facility] Performing Organization Address [facility] [place] Phone Number LAB, [facility], [address] [place] [address] CHEM 7 (LYTES,BUN,CREA,GLUC) (10/04/2018 6:05 PM) BUN 45 (H) 7 - 22 mg/dL LAB, [facility] SODIUM 137 133 - 143 mmol/L LAB, [facility] POTASSIUM 4.2 3.5 - 5.0 mmol/L LAB, [facility] CHLORIDE 98 98 - 108 mmol/L LAB, [facility] CARBON DIOXIDE (CO2) 29 22 - 30 mmol/L LAB, [facility] GLUCOSE 190 (H) 70 - 99 mg/dL LAB, [facility] CREATININE SERUM 2.90 (H) 0.70 - 1.30 mg/dL LAB, [facility] ANION GAP 14 7 - 17 mmol/L LAB, [facility] BUN/CREA RATIO 16 LAB, [facility] OSMOLALITY (CALC) 305 278 - 305 mOsm/kg LAB, [facility] ESTIMATED GFR, NON AMER 21 (L) >60 mL/min/1.73sqM LAB, [facility] ESTIMATED GFR, 26 (L) >60 mL/min/1.73sqM LAB, [facility] Performing Organization Address [facility] [place] Phone Number LAB, [facility], [address] [place] [address] URINE CULTURE (10/04/2018 6:05 PM) MICRO ACCESSION NUMBER [id number] LAB, MICRO SOURCE URINE-CATHETERIZED: [facility] LAB, MICRO RESULT-CULT NO GROWTH LAB, MICRO REPORT STATUS 10/06/2018 FINAL LAB, MICRO Specimen URINE - JONES CATH Performing Organization Address [facility] [place] Phone Number LAB, MICRO LAB, MICRO [facility], [address] [place] [address], Blood Cultures processed at:, [facility], [address], [place] [address] EP PROCEDURE - EPS/ABLATION/DEVICE (10/04/2018 5:40 PM) BSA 2.01 m2 Narrative Performed At ?? Successful AVN RFA 78 y.o. male with PMH significant for HFrEF (EF30-35%) and Permanent Atrial Fibrillation who comes for AVN Ablation Findings: - Access was obtained with US guidance, [address], advanced ablation catheter to the AVN in the RUBINA view, the patient received 2 applications with a total of 120seconds of 55 jain energy delivered at 52C. - Patient had successful ablation with Complete AVB with a baseline HR of 39bpm, and waited a period of 20 minutes to evaluate to any reconnection. - His MDT device was checked and interrogated during and after the procedure and was left on VVIR 80-120. Recommendations: - Right femoral sheath care per protocol - Continue with HR > 80bpm for at least 1 month then decrease progressively since lower heart rates puts him at risk for Polymorphic VT - Return to floor for care per primary and EP consult service - Anticoagulation on hold due to concern for subdural hematoma ? GLUCOSE POC (10/04/2018 4:44 PM) GLUCOSE, POINT OF CARE 196 (H)Comment: No BRAVE per 70 - 99 mg/dL LAB, PO RN: PATIENT TYPE sample type for POC testing Capillary Blood LAB, PO Performing Organization Address City/[facility] [place] Phone Number LAB, PO LAB, PO Point of Care Testing, Test performed at the address of, the patient encounter INVASIVE CARDIOLOGY CATH PROCEDURE (10/04/2018 2:31 PM) BSA 2.01 m2 Narrative Performed At Right Heart Catheterization: 1) Cardiac output/index is 2.4/1.2 by [place] and 2.6/1.3 by thermodilution; pulmonary artery oxygen saturation is 43%. 2) PCWP is severely elevated with mean ~ 27 mmHg. 3) Pulmonary artery pressure is severely elevated at 63/33/46 mmHg. 4) Please see table below for further values. Recommendations: 1) Final recommendations per primary team. POTASSIUM (10/04/2018 11:43 AM) POTASSIUM 4.6 3.5 - 5.0 mmol/L LAB, [facility] Performing Organization Address City/[facility] Phone Number LAB, [facility], [address] [place] [address] GLUCOSE POC (10/04/2018 11:27 AM) GLUCOSE, POINT OF CARE 216 (H) 70 - 99 mg/dL LAB, PO Comment: Notified RNread back No BRAVE per RN: PATIENT TYPE sample type for POC testing Capillary Blood LAB, PO Performing Organization Address City/State/Zipcode Phone Number LAB, PO LAB, PO Point of Care Testing, Test performed at the address of, the patient encounter ECG (10/04/2018 11:24 AM) Performing Organization Address City/State/[facility] Phone Number RADIOLOGY CT HEAD WITHOUT CONTRAST (10/04/2018 10:24 AM) Impressions Performed At IMPRESSION: RADIOLOGY Small mildly hyperdense extra-axial collection/soft tissue overlying the left anterior frontal lobe. It is unclear whether this represents a small subdural hematoma versus chronic dural thickening. If clinically indicated, short-term follow-up is suggested to ensure stability. Postoperative changes related to prior left-sided craniotomy. No acute intraparenchymal hemorrhage. No significant mass effect or midline shift. Findings communicated to EREN PEÑA on 10/04/2018 at 1:35 PM. Narrative Performed At EXAM:?CT HEAD WITHOUT CONTRAST, 10/04/2018 10:24 AM RADIOLOGY COMPARISON: None. CLINICAL INDICATIONS: 78 years Male Head trauma, persistent deficits, follow up; TECHNIQUE: A series of transaxial computerized tomographic images are obtained from base of skull to vertex without intravenous contrast. Axial whole-head and thin section posterior fossa slices are provided. Reformats: Sagittal and coronal. FINDINGS: Motion artifact mildly degrading image quality. The patient status post left-sided craniotomy. There is a small mildly hyperdense soft tissue/collection measuring 4 mm in thickness overlying the left frontal lobe and best seen on image 16 of series 2. A subtle mild hyperdense collection or soft tissue is also noted subjacent to the craniotomy site measuring approximately 3 mm in maximal thickness. No significant mass effect or midline shift. There is overall prominence of the ventricles and cerebral sulci in keeping with residual volume loss. Basal cisterns are patent. No acute intraparenchymal hemorrhage is identified. No obvious CT abnormality involving the posterior fossa structures. There is mild mucosal thickening in the bilateral maxillary sinuses. No air-fluid level is noted. No orbital mass is identified. The mastoids are generally clear with minimal mucosal thickening in the left mastoid tip. Calcified atherosclerotic plaques are noted involving the bilateral cavernous ICAs and intracranial vertebral arteries. Procedure Note User, Interfaces - 10/04/2018 1:39 PM EST EXAM: CT HEAD WITHOUT CONTRAST, 10/04/2018 10:24 AM COMPARISON: None. CLINICAL INDICATIONS: 78 years Male Head trauma, persistent deficits, follow up; TECHNIQUE: A series of transaxial computerized tomographic images are obtained from base of skull to vertex without intravenous contrast. Axial whole-head and thin section posterior fossa slices are provided. Reformats: Sagittal and coronal. FINDINGS: Motion artifact mildly degrading image quality. The patient status post left-sided craniotomy. There is a small mildly hyperdense soft tissue/collection measuring 4 mm in thickness overlying the left frontal lobe and best seen on image 16 of series 2. A subtle mild hyperdense collection or soft tissue is also noted subjacent to the craniotomy site measuring approximately 3 mm in maximal thickness. No significant mass effect or midline shift. There is overall prominence of the ventricles and cerebral sulci in keeping with residual volume loss. Basal cisterns are patent. No acute intraparenchymal hemorrhage is identified. No obvious CT abnormality involving the posterior fossa structures. There is mild mucosal thickening in the bilateral maxillary sinuses. No air-fluid level is noted. No orbital mass is identified. The mastoids are generally clear with minimal mucosal thickening in the left mastoid tip. Calcified atherosclerotic plaques are noted involving the bilateral cavernous ICAs and intracranial vertebral arteries. IMPRESSION IMPRESSION: Small mildly hyperdense extra-axial collection/soft tissue overlying the left anterior frontal lobe. It is unclear whether this represents a small subdural hematoma versus chronic dural thickening. If clinically indicated, short-term follow-up is suggested to ensure stability. Postoperative changes related to prior left-sided craniotomy. No acute intraparenchymal hemorrhage. No significant mass effect or midline shift. Findings communicated to EREN PEÑA on 10/04/2018 at 1:35 PM. Performing Organization Address City/State/Zipcode Phone Number RADIOLOGY GLUCOSE POC (10/04/2018 7:25 AM) GLUCOSE, POINT OF CARE 236 (H) 70 - 99 mg/dL LAB, PO Comment: Notified RNread back No BRAVE per RN: PATIENT TYPE sample type for POC testing Capillary Blood LAB, PO Performing Organization Address [facility] Phone Number LAB, PO LAB, PO Point of Care Testing, Test performed at the address of, the patient encounter ECG (10/04/2018 6:08 AM) Performing Organization Address [facility] [place] Phone Number RADIOLOGY POTASSIUM (10/04/2018 5:59 AM) POTASSIUM 4.9Comment: Results inconsistent with the 3.5 - 5.0 mmol/L LAB, [facility] patient's previous results Performing Organization Address [facility] [place] Phone Number LAB, [facility], [address] [place] [address] U/A WITH MICROSCOPIC (10/04/2018 5:55 AM) APPEARANCE, URINE Cloudy (A) Clear LAB, [facility] SPECIFIC GRAVITY, URINE 1.025 1.001 - 1.035 LAB, [facility] GLUCOSE, URINE 100 (A) Negative mg/dL LAB, [facility] KETONES, URINE Small (A) Negative LAB, [facility] BLOOD, URINE Large (A) Negative LAB, [facility] PH URINE 7.0 5.0 - 7.0 LAB, [facility] PROTEIN, URINE 100 (A) Negative mg/dL LAB, [facility] NITRITES, URINE POSITIVE (A) Negative LAB, [facility] LEUKOCYTE ESTERASE, URINE Moderate (A) Negative LAB, [facility] COLOR, URINE Red - Result of urine Yellow LAB, [facility] dipstick analysis may be inaccurate due to color interference. Clinical correlation is recommended. (A) UROBILINOGEN, URINE 4.0 (H) <2.0 EU/dL LAB, [facility] WBC, URINE 6-9 (A) 0 - 5 /HPF LAB, [facility] RBC, URINE >20 (A) 0 - 2 /HPF LAB, [facility] BACTERIA, URINE Trace (A) Absent LAB, [facility] COMMENT, URINE None LAB, [facility] SQUAMOUS EPITHELIAL CELLS, 1+ /HPF LAB, [facility] URINE AMORPHOUS MATERIAL, URINE Moderate LAB, [facility] Performing Organization Address [facility] Phone Number LAB, [facility], [address] [place] [address] ECG (10/04/2018 3:26 AM) Performing Organization Address [facility] [place] Phone Number RADIOLOGY MAGNESIUM (10/04/2018 2:55 AM) MAGNESIUM 2.0 1.6 - 2.6 mg/dL LAB, [facility] Performing Organization Address [facility] [place] Phone Number LAB, [facility], [address] [place] [address] CHEM 7 (LYTES,BUN,CREA,GLUC) (10/04/2018 2:55 AM) BUN 36 (H) 7 - 22 mg/dL LAB, [facility] SODIUM 132 (L) 133 - 143 mmol/L LAB, [facility] POTASSIUM 6.8 (HH)Comment: Critical 3.5 - 5.0 mmol/L LAB, [facility] K result called to and read back by: BEKA SHI at: 10/04/2018 03:47:29 by : [id number] CHLORIDE 98 98 - 108 mmol/L LAB, [facility] CARBON DIOXIDE (CO2) 22 22 - 30 mmol/L LAB, [facility] GLUCOSE 221 (H) 70 - 99 mg/dL LAB, [facility] CREATININE SERUM 2.49 (H) 0.70 - 1.30 mg/dL LAB[facility] ANION GAP 19 (H) 7 - 17 mmol/L LAB, [facility] BUN/CREA RATIO 14 LAB, [facility] OSMOLALITY (CALC) 299 278 - 305 mOsm/kg LAB, [facility] ESTIMATED GFR, NON 25 (L) >60 mL/min/1.73sqM LAB, [facility] AMER ESTIMATED GFR, 31 (L) >60 mL/min/1.73sqM LAB, [facility] MALAYSIAN Performing Organization Address [facility] [place] Phone Number LAB, [facility], [address] [place] [address] CHEM 6 (LYTES, BUN CREA) (10/04/2018 1:47 AM) BUN 35 (H) 7 - 22 mg/dL LAB, [facility] SODIUM 133 133 - 143 mmol/L LAB, [facility] POTASSIUM 6.6 (HH) 3.5 - 5.0 mmol/L LAB, [facility] Comment: Critical K result called to and read back by: BEKA SHI at: 10/04/2018 02:48:09 by : [id number] Repeated and verified Results inconsistent with the patient's previous results Clinical correlation is recommended. CHLORIDE 99 98 - 108 mmol/L LAB, [facility] CARBON DIOXIDE (CO2) 21 (L) 22 - 30 mmol/L LAB, [facility] CREATININE SERUM 2.43 (H) 0.70 - 1.30 mg/dL LAB, [facility] ANION GAP 20 (H) 7 - 17 mmol/L LAB, [facility] BUN/CREA RATIO 14 LAB, [facility] ESTIMATED GFR, NON 26 (L) >60 mL/min/1.73sqM LAB, [facility] AMER ESTIMATED GFR, 31 (L) >60 mL/min/1.73sqM LAB, [facility]AYSIAN Performing Organization Address [facility] [place] Phone Number LAB, [facility], [address] [place] [address] MAGNESIUM (10/04/2018 1:47 AM) MAGNESIUM 2.0 1.6 - 2.6 mg/dL LAB, [facility] Performing Organization Address [facility] Number LAB, [facility], [address] [place] [address] TROPONIN (10/04/2018 1:47 AM) TROPONIN 0.06 <0.11 ng/mL LAB, [facility] Performing Organization Address [facility] Number LAB, [facility], [address] [place] [address] GLUCOSE POC (10/03/2018 11:06 AM) GLUCOSE, POINT OF CARE 174 (H) 70 - 99 mg/dL LAB, PO Comment: Notified RNread back No BRAVE per RN: PATIENT TYPE sample type for POC testing Capillary Blood LAB, PO Performing Organization Address [facility] [place] Phone Number LAB, PO LAB, PO Point of Care Testing, Test performed at the address of, the patient encounter ECHOCARDIOGRAM (10/03/2018 9:41 AM) BSA 2.01 m2 KATHRYN (continuity Vmax) 2.80 cm2 KATHRYN index (continuity Vmax) 1.39 m/s LA ESV SP 4CH (MOD) 119 mL LA ESV BP (MOD) 130 mL LA ESV SP 2CH (MOD) 134 mL LA ESV BP (MOD) index 65 mL/m2 E/e' lateral ratio 36.00 e' septal pk kat 0.04 m/s e' lateral pk kat 0.04 m/s Average e' pk kat 0.04 m/s TAPSE 0.53 LA AREA 2CH 35.20 cm2 LV RWT 0.35 LV EDV BP 177 mL LV ESV BP 108 mL BP EF 39 % TR pk kat 2.92 m/s MR VTI 98.30 cm MR vol 10 mL PV PK KAT 0.62 m/s RV S' 4.80 cm/s TR pk grad 34 mmHg EST RAP 15.00 mmHg EST RVSP 49 mmHg RVOT peak gradient 1 mmHg Right atrium volume 4 chamber method of disks 102 mL RA vol index 4CH (MOD) 50.75 mL/m2 DI (Vmax) 0.67 E/e' septal ratio 36.00 [facility] ECHO LV BP DIASTOLIC VOLUME INDEX 88.06 mL/m2 [facility] ECHO LV BIPLANE SYSTOLIC VOLUME INDEX 53.73 mL/m2 RV basal diam 5.35 cm LV stroke volume BP (ml) 69 mL LV stroke volume index BP 34.33 mL/m2 LVIDD 5.52 3.5 - 6.0 cm IVS 1.07 0.6 - 1.1 cm PW 0.97 0.6 - 1.1 cm LVIDS 4.89 (A) 2.1 - 4.0 cm IVC ostium 2.45 cm Sinus 3.76 cm STJ 3.69 cm Ascending aorta 3.60 cm LV mass 220.15 g AV Velocity Ratio 0.67 AV LVOT peak gradient 1 mmHg MV vena contracta 0.17 cm PV peak gradient 2 mmHg E wave decelartion time 203.00 msec LVOT diameter 2.30 cm LVOT area 4.15 cm2 LVOT peak kat 0.58 m/s Ao peak kat 0.86 m/s RVOT peak kat 0.50 m/s Vn Nyquist 0.39 m/s Radius 0.40 cm Mr max kat 3.73 m/s AV peak gradient 3 mmHG Avg E/e' ratio 36.00 MV Peak E Kat 1.44 m/s MR PISA EROA 0.11 cm2 LV Mass Index 109.5 g/m2 FS 11 28 - 44 % Narrative Performed At ?? Normal LV size.?Ejection fraction is moderately reduced (30 - 35%). ?? Diastolic function is abnormal consistent with pseudonormalization (grade II). ?? RV not well visualized, likely at least moderate dysfunction. ?? Bi-atrial enlargement. ?? Mild to moderate MR. Mild TR. ?? RVSP 49 mmHg. GLUCOSE POC (10/03/2018 7:33 AM) GLUCOSE, POINT OF CARE 148 (H) 70 - 99 mg/dL LAB, PO Comment: Notified RNread back No BRAVE per RN: PATIENT TYPE sample type for POC testing Capillary Blood LAB, PO Performing Organization Address [facility] Number LAB, PO LAB, PO Point of Care Testing, Test performed at the address of, the patient encounter B-TYPE NATRIURETIC PEPTIDE (BRAIN) (10/03/2018 3:07 AM) BRAIN NATRIURETIC PEPTIDE 525 (H) 0 - 100 pg/mL LAB, [facility] Performing [facility] LAB, [facility], [address] [place] [address] TSH (10/03/2018 3:07 AM) TSH, HIGH-SENSITIVITY 1.796 0.550 - 4.780 uIU/mL LAB, [facility] LAB, [facility], [address] [place] [address] TROPONIN (10/03/2018 3:07 AM) TROPONIN 0.06 <0.11 ng/mL LAB, [facility] Per[facility] LAB, [facility], [address] [place] [address] PT,INR,PTT (10/03/2018 3:07 AM) PT 14.6 (H) 11.9 - 14.2 sec LAB, [facility] INR 1.1 0.9 - 1.1 LAB, [facility] PTT 33.9 24.0 - 34.3 sec LAB, [facility] Performing Organization [facility] Phone Number LAB, [facility], [address] [place] [address] HEPATIC FUNCTION PANEL (10/03/2018 3:07 AM) ALBUMIN 3.3 (L) 3.5 - 5.0 g/dL LAB, [facility] BILIRUBIN, DIRECT 0.2 <0.3 mg/dL LAB, [facility] BILIRUBIN, TOTAL 0.5 <1.5 mg/dL LAB, [facility] ALKALINE PHOSPHATASE 108 32 - 126 U/L LAB, [facility] ALT 12 10 - 52 U/L LAB, [facility] AST 14 14 - 40 U/L LAB, [facility] PROTEIN, TOTAL 6.0 (L) 6.4 - 8.3 g/dL LAB, [facility] Performing Organization Address [facility] Number LAB, [facility], [address] [place] [address] MAGNESIUM (10/03/2018 3:07 AM) MAGNESIUM 1.7 1.6 - 2.6 mg/dL LAB, [facility] Performing Organization Address [facility] Number LAB, [facility], [address] [place] [address] CHEM 7 (LYTES,BUN,CREA,GLUC) (10/03/2018 3:07 AM) BUN 23 (H) 7 - 22 mg/dL LAB, [facility] SODIUM 134 133 - 143 mmol/L LAB, [facility] POTASSIUM 3.6 3.5 - 5.0 mmol/L LAB, [facility] CHLORIDE 100 98 - 108 mmol/L LAB, [facility] CARBON DIOXIDE (CO2) 25 22 - 30 mmol/L LAB, [facility] GLUCOSE 151 (H) 70 - 99 mg/dL LAB, [facility] CREATININE SERUM 1.63 (H) 0.70 - 1.30 mg/dL LAB, [facility] ANION GAP 13 7 - 17 mmol/L LAB, [facility] BUN/CREA RATIO 14 LAB, [facility] OSMOLALITY (CALC) 288 278 - 305 mOsm/kg LAB, [facility] ESTIMATED GFR, NON AMER 41 (L) >60 mL/min/1.73sqM LAB, [facility] ESTIMATED GFR, 50 (L) >60 mL/min/1.73sqM LAB, [facility] Performing Organization Address [facility] [place], [facility], [address] [place] [address] CBC,PLATELETS (10/03/2018 3:07 AM) WBC (WHITE BLOOD COUNT) 6.72 3.73 - 10.10 K/uL LAB, [facility] RBC 3.33 (L) 4.38 - 5.83 M/uL LAB, [facility] HEMOGLOBIN (HGB) 11.1 (L) 13.4 - 16.8 g/dL LAB, [facility] HEMATOCRIT (HCT) 33.1 (L) 39.6 - 48.8 % LAB, [facility] MEAN CELL VOLUME 99.4 (H) 79.0 - 94.5 fL LAB, [facility] Mean Cell HGB 33.3 26.1 - 33.3 pg LAB, [facility] MEAN CELL HGB CONCENTRATION 33.5 31.9 - 36.5 g/dL LAB, [facility] RBC DISTRIBUTION 14.3 10.9 - 14.3 % [facility], [facility] PLATELET COUNT 104 (L) 146 - 337 K/uL LAB, [facility] MEAN PLATELET VOLUME 9.8 8.7 - 12.3 fL LAB, [facility] RBC, NUCLEATED 0.0 0.0 - 0.2 /100 WBC LAB, [facility] Performing Organization Address City/[facility] [place] [facility] [place] Number [place], [facility], [address] [place] [address] LEVETIRACETAM LEVEL (10/02/2018 9:42 PM) LEVETIRACETAM LEVEL 37.1 12.0 - 46.0 mcg/mL LAB, [facility] Comment: (NOTE) ADDITIONAL INFORMATION This test was developed and its performance characteristics determined by [facility] in a manner consistent with CLIA requirements. This test has not been cleared or approved by the U.S. Food and Drug Administration. Test performed by [facility] Dpt of Lab & Pathology^[address]^[place]^[address]^[id number] Performing Organization Address City/[facility] Phone Number LAB, SO LAB, SO Reference lab information reported with result TROPONIN (10/02/2018 9:24 PM) TROPONIN 0.06 <0.11 ng/mL [facility], [facility] Performing Organization Address City/[facility] Phone Number LAB, [facility], [address] [place] [phone] HEPATIC FUNCTION PANEL (10/02/2018 9:24 PM) ALBUMIN 3.6 3.5 - 5.0 g/dL [facility], [facility] BILIRUBIN, DIRECT 0.2 <0.3 mg/dL LAB, [facility] BILIRUBIN, TOTAL 0.6 <1.5 mg/dL LAB, [facility] ALKALINE PHOSPHATASE 122 32 - 126 U/L [facility], [facility] ALT 14 10 - 52 U/L [facility], [facility] AST 15 14 - 40 U/L LAB, [facility] PROTEIN, TOTAL 6.5 6.4 - 8.3 g/dL LAB, [facility] Performing Organization Address City/[facility] Phone Number LAB, [facility], [address] [place] [address] PT,INR,PTT (10/02/2018 9:24 PM) PT 14.3 (H) 11.9 - 14.2 sec [facility], [facility] INR 1.1 0.9 - 1.1 [facility], [facility] PTT 30.1 24.0 - 34.3 sec LAB, [facility] Performing Organization Address City/[facility] Phone Number LAB, [facility], [address] [place] [address] PHOSPHATE, INORGANIC (10/02/2018 9:24 PM) PHOSPHATE, INORGANIC 3.5 2.2 - 4.6 mg/dL [facility], [facility] Performing Organization Address City/[facility] [place] LAB, [facility], [address] [place] [id number] MAGNESIUM (10/02/2018 9:24 PM) MAGNESIUM 1.7 1.6 - 2.6 mg/dL [facility], [facility] Performing Organization Address City/[facility] Phone Number LAB, [facility], [address] [place] [phone] CALCIUM (10/02/2018 9:24 PM) CALCIUM 8.5 (L) 8.6 - 10.5 mg/dL LAB, [facility] Performing Organization Address City/[facility] Phone Number LAB, [facility], [address] [place] [phone] CHEM 7 (LYTES,BUN,CREA,GLUC) (10/02/2018 9:24 PM) BUN 25 (H) 7 - 22 mg/dL [facility], [facility] SODIUM 135 133 - 143 mmol/L [facility], [facility] POTASSIUM 3.8 3.5 - 5.0 mmol/L [facility], [facility] CHLORIDE 100 98 - 108 mmol/L [facility], [facility] CARBON DIOXIDE (CO2) 26 22 - 30 mmol/L [facility], [facility] GLUCOSE 150 (H) 70 - 99 mg/dL [facility], [facility] CREATININE SERUM 1.78 (H) 0.70 - 1.30 mg/dL [facility], [facility] ANION GAP 13 7 - 17 mmol/L [facility], [facility] BUN/CREA RATIO 14 [facility], [facility] OSMOLALITY (CALC) 291 278 - 305 mOsm/kg LAB, [facility] ESTIMATED GFR, NON AMER 37 (L) >60 mL/min/1.73sqM LAB, [facility] ESTIMATED GFR, 45 (L) >60 mL/min/1.73sqM LAB, [facility] Performing Organization Address City/State/Zipcode Phone Number LAB, [facility], [address] [place] [address] CBC, EDIF, PLATELET (10/02/2018 9:24 PM) WBC (WHITE BLOOD COUNT) 7.37 3.73 - 10.10 K/uL LAB, [facility] RBC 3.54 (L) 4.38 - 5.83 M/uL LAB, [facility] HEMOGLOBIN (HGB) 11.7 (L) 13.4 - 16.8 g/dL LAB, [facility] HEMATOCRIT (HCT) 35.5 (L) 39.6 - 48.8 % LAB, [facility] MEAN CELL VOLUME 100.3 (H) 79.0 - 94.5 fL LAB, [facility] Mean Cell HGB 33.1 26.1 - 33.3 pg LAB, [facility] MEAN CELL HGB CONCENTRATION 33.0 31.9 - 36.5 g/dL LAB, [facility] RBC DISTRIBUTION 14.4 (H) 10.9 - 14.3 % LAB, [facility] PLATELET COUNT 110 (L) 146 - 337 K/uL LAB, [facility] MEAN PLATELET VOLUME 10.0 8.7 - 12.3 fL LAB, [facility] RBC, NUCLEATED 0.0 0.0 - 0.2 /100 WBC LAB, [facility] DIFFERENTIAL TYPE Electronic Differential LAB, [facility] IMMATURE GRANS% 0.3 % LAB, [facility] NEUTROPHIL SEGMENTED 73.4 % [facility], [facility] LYMPHOCYTES 14.9 % [facility], [facility] MONOCYTE 7.5 % LAB, [facility] EOSINOPHIL 3.4 % [facility], [facility] BASOPHIL 0.5 % [facility], [facility] IMMATURE GRANS ABSOLUTE <0.04 0.00 - 0.07 K/uL LAB, [facility] SEGS + Bands, Absolute 5.41 1.57 - 6.19 K/uL LAB, [facility] LYMPHOCYTES, ABSOLUTE 1.10 0.83 - 3.57 K/uL LAB, [facility] MONOCYTES, ABSOLUTE 0.55 0.24 - 0.93 K/uL LAB, [facility] EOSINOPHILS, ABSOLUTE 0.25 0.00 - 0.48 K/uL LAB, [facility] BASOPHILS, ABSOLUTE 0.04 0.00 - 0.09 K/uL LAB, [facility] Performing Organization Address City/[facility] Phone Number LAB, [facility], [address] [place] [address] GLUCOSE POC (10/02/2018 7:26 PM) GLUCOSE, POINT OF CARE 162 (H)Comment: No BRAVE per 70 - 99 mg/dL LAB, PO RN: PATIENT TYPE sample type for POC testing Capillary Blood LAB, PO Performing Organization Address City/[facility] Phone Number LAB, PO LAB, PO Point of Care Testing, Test performed at the address of, the patient encounter ECG (10/02/2018 7:21 PM) Performing Organization Address [facility] Phone Number RADIOLOGY in this encounter Visit Diagnoses Diagnosis Diastolic dysfunction with chronic heart failure - Primary Atrial fibrillation, unspecified type Persistent atrial fibrillation Atrial fibrillation Acute on chronic systolic congestive heart failure Acute on chronic systolic heart failure Palliative care by specialist Subdural hematoma Subdural hemorrhage Obesity: body mass index of 30.0-34.9 Obesity, unspecified Goals of care, counseling/discussion Other specified counseling Administered Medications Active Administered Medications - up to 3 most recent administrations Medication Order MAR Action Action Date Dose Rate Site aspirin chewable tablet 81 mg Given 10/09/2018 09:22 EST 81 mg 81 mg, Oral, DAILY, First dose on Vandana 10/03/18 at 0900, Until Discontinued Given 10/10/2018 08:41 EST 81 mg Given 10/11/2018 09:29 EST 81 mg atorvastatin (LIPITOR) tablet 10 mg Given 10/09/2018 09:22 EST 10 mg 10 mg, Oral, DAILY, First dose on Vandana 10/03/18 at 0900, Until Discontinued Given 10/10/2018 08:41 EST 10 mg Given 10/11/2018 09:29 EST 10 mg bumetanide (BUMEX) tablet 1 mg Given 10/10/2018 17:46 EST 1 mg 1 mg, Oral, EVERY 24 HOURS, First dose on Vandana 10/10/18 at 1600, Until Discontinued Given 10/11/2018 17:20 EST 1 mg bumetanide (BUMEX) tablet 2 mg Given 10/10/2018 08:40 EST 2 mg 2 mg, Oral, DAILY, First dose on Vandana 10/10/18 at 0900, Until Discontinued Given 10/11/2018 09:29 EST 2 mg dextrose 50% injection 7.5-25 g 7.5-25 g, Intravenous, ADMINISTER DIRECTED, Starting Sun10/08/18 at 2053, Until Discontinued, Blood glucose <80 mg/dL, For patients who are not alert, are NPO, or are on IV insulin infusion administer as directed per Hypoglycemia in Non- Adults Clinical Practice Guideline. For Blood Glucose: 60-79 mg/dL administer 7.5 gm (15ml); 45-59 mg/dL administer 12.5 gm (25ml); less than 45mg/dL administer 25gm (50ml). docusate (COLACE) capsule 100 mg Given 10/05/2018 21:24 EST 100 mg 100 mg, Oral, 2 TIMES DAILY NEEDED, Starting Sun10/02/18 at 2036, Until Discontinued, Constipation 1st Line glucose (GLUTOSE) 40 % oral gel 1-2 Tube 1-2 Tube, Oral, ADMINISTER DIRECTED, Starting e 10/08/18 at 2053, Until Discontinued, Blood glucose <80 mg/dL, For patients who are alert, able to tolerate PO intake and with intact cognitive status administer as directed per Hypoglycemia in Non- Adults Clinical Practice Guideline. For Blood Glucose: 60-79 mg/dL administer 1 tube; 45-59 mg/dl administer 1.5 tubes; less than 45 mg/dL administer 2 tubes. Each tube of 37.5g delivers 15g of carbohydrate. heparin injection 5,000 Units Given 10/10/2018 17:46 EST 5,000 Units Abdomen 5,000 Units, Subcutaneous, EVERY 8 HOURS (0800/1600/2200), First dose on Sun10/02/18 at 2200, Until Discontinued Given 10/10/2018 21:18 EST 5,000 Units Abdomen Given 10/11/2018 09:29 EST 5,000 Units Abdomen hydrALAzine (APRESOLINE) tablet 25 mg Given 10/10/2018 21:18 EST 25 mg 25 mg, Oral, EVERY 8 HOURS, First dose on Sun10/07/18 at 1045, Until Discontinued Given 10/11/2018 05:53 EST 25 mg Given 10/11/2018 12:46 EST 25 mg insulin lispro (HumaLOG) injection Given 10/10/2018 21:21 EST 3 Units Abdomen Subcutaneous, 4 TIMES DAILY WITH MEALS & AT BEDTIME, First dose on Sun10/08/18 at 2100, Until Discontinued, Insulin to carb ratio: Standard: 10 grams carbs = 1 unit insulin every meal and at bedtime immediately before or after meals and at bedtime Sliding Scale/Correction Factor: 151-200 = 1 unit; 201-250 = 2 units; 251-300 = 3 units; 301-350 = 4 units; 351-400 = 5 units; Kwikpen: Prime pen before each injection; refer to Pen Priming and Care Handout for further details. Given 10/11/2018 09:29 EST 3 Units Left Arm Given 10/11/2018 12:46 EST 3 Units Left Arm isosorbide mononitrate (IMDUR) tablet XL 60 mg Given 10/09/2018 09:22 EST 60 mg 60 mg, Oral, DAILY, First dose on Sun10/08/18 at 0900, Until Discontinued, Do not crush or chew. May be divided in half. Given 10/10/2018 08:41 EST 60 mg Given 10/11/2018 09:29 EST 60 mg levetiracetam (KEPPRA) tablet 1,000 mg Given 10/10/2018 08:40 EST 1,000 mg 1,000 mg, Oral, EVERY 12 HOURS, First dose on Sun10/07/18 at 0900, Until Discontinued Given 10/10/2018 21:18 EST 1,000 mg Given 10/11/2018 09:32 EST 1,000 mg levothyroxine (SYNTHROID) tablet 50 mcg Given 10/10/2018 08:40 EST 50 mcg 50 mcg, Oral, DAILY, First dose on Vandana 10/10/18 at 0900, Until Discontinued Given 10/11/2018 09:29 EST 50 mcg magnesium oxide (MAX-OX) tablet 800 mg Given 10/06/2018 06:26 EST 800 mg 800 mg, Oral, ADMINISTER DIRECTED, Starting Vandana 10/03/18 at 0708, Until Discontinued, See admin instructions, For Magnesium 1.6 - 2.0, give 800 mg of Magnesium oxide. Recheck level in am. NOT APPROPRIATE for Dialysis Patients, those with CrCl <30, weight <50kg; or for renal transplant recipients. magnesium oxide (MAX-OX) tablet 800 mg Given 10/03/2018 08:24 EST 800 mg 800 mg, Oral, ADMINISTER DIRECTED, Starting Vandana 10/03/18 at 0708, Until Discontinued, See admin instructions, Occludes small-bore tubes For Mg < 1.6 give 800 mg every 4 hours x 2 Given 10/05/2018 06:42 EST 800 mg Given 10/11/2018 06:59 EST 800 mg metoprolol succinate (TOPROL-XL) tablet XL 25 mg Given 10/09/2018 09:22 EST 25 mg 25 mg, Oral, DAILY, First dose on Sun10/09/18 at 0900, Until Discontinued, Slow release product.?? Do not crush. Extended release can be cut in half. Given 10/10/2018 08:40 EST 25 mg Given 10/11/2018 09:29 EST 25 mg mexiletine (MEXITIL) capsule 150 mg Given 10/10/2018 21:18 EST 150 mg 150 mg, Oral, EVERY 8 HOURS, First dose on Sun10/09/18 at 1200, Until Discontinued Given 10/11/2018 05:53 EST 150 mg Given 10/11/2018 12:46 EST 150 mg ondansetron (ZOFRAN) tablet 4 mg 4 mg, Oral, EVERY 6 HOURS NEEDED, Starting Sun10/02/18 at 2036, Until Discontinued, Nausea / Vomiting ondansetron 4mg/2ml (ZOFRAN) injection 4 mg Given 10/03/2018 16:20 EST 4 mg 4 mg, Intravenous, EVERY 6 HOURS NEEDED, Starting Sun10/02/18 at 2036, Until Discontinued, Nausea / Vomiting Given 10/03/2018 20:56 EST 4 mg Given 10/04/2018 04:57 EST 4 mg potassium chloride (K-DUR, KLOR-CON M20) tablet Given 10/05/2018 06:42 EST 60 mEq ER 40-60 mEq 40-60 mEq, Oral, ADMINISTER DIRECTED, Starting Vandana 10/03/18 at 0708, Until Discontinued, See admin instructions, 1. For Potassium 3.6-4.0, give 40 mEq Potassium Chloride orally, recheck in AM 2. For Potassium LESS THAN 3.6, give 60mEq Potassium Chloride orally, recheck level in 8 hours. 3. If Potassium is LESS THAN 3.0 give 60mEq Potassium Chloride orally, recheck level in 8 hours. Draw magnesium level and administer magnesium prior to giving potassium, if indicated. NOT APPROPRIATE for Dialysis Patients, those with CrCl <30, weight <50kg; or for renal transplant recipients. Given 10/08/2018 23:44 EST 60 mEq Given 10/11/2018 06:59 EST 40 mEq Ranolazine (RANEXA) tablet SR 1,000 mg Given 10/10/2018 08:41 EST 1,000 mg 1,000 mg, Oral, EVERY 12 HOURS, First dose on Sun10/02/18 at 2215, Until Discontinued, Sustained release dosage form. Swallow tablet whole; do not crush, break, or chew. Given 10/10/2018 21:18 EST 1,000 mg Given 10/11/2018 09:29 EST 1,000 mg rOPINIRole (REQUIP) tablet 2 mg Given 10/08/2018 21:42 EST 2 mg 2 mg, Oral, DAILY AT BEDTIME, First dose on 10/06/18 at 2100, Until Discontinued Given 10/09/2018 21:52 EST 2 mg Given 10/10/2018 21:18 EST 2 mg sodium chloride 0.9% IV solution 500 mL Intravenous, at 10 mL/hr, ADMINISTER DIRECTED, Starting Sun10/04/18 at 1436, Until Discontinued, Per treatment plan, Start the morning of procedure. Inactive Administered Medications - up to 3 most recent administrations Medication Order MAR Action Action Date Dose Rate Site bumetanide (BUMEX) tablet 1 mg Given 10/08/2018 09:36 EST 1 mg 1 mg, Oral, DAILY, First dose on Sun10/08/18 at 0800, Until Discontinued Given 10/09/2018 09:22 EST 1 mg bumetanide (BUMEX) tablet 1 mg Given 10/09/2018 16:35 EST 1 mg 1 mg, Oral, 2 TIMES DAILY BEFORE MEALS, First dose on Sun10/09/18 at 1600, Until Discontinued calcium gluconate 10 % injection 1 g Given 10/04/2018 04:37 EST 1 g 1 g, Intravenous, ONCE, 1 dose, Sun10/04/18 at 0430, Administer no faster than 2 mL/minute carveDILOL (COREG) tablet 18.75 mg Given 10/03/2018 08:23 EST 18.75 mg 18.75 mg, Oral, 2 TIMES DAILY, First dose on Sun10/02/18 at 2130, Until Discontinued Given 10/03/2018 16:56 EST 18.75 mg Given 10/04/2018 09:02 EST 18.75 mg cefTRIAXone (ROCEPHIN) 1 g in dextrose Restarted 10/08/2018 17:00 EST 100 mL/hr 50ml premix IVPB 1 g, Intravenous, Administer over 30 Minutes, EVERY 24 HOURS, 7 doses, First dose on Sun10/04/18 at 1730, Last dose on Sun10/10/18 at 1730 $$New Bag$$ 10/09/2018 16:43 EST 1 g 100 mL/hr $$New Bag$$ 10/10/2018 17:52 EST 1 g 100 mL/hr clopidogrel (PLAVIX) tablet 75 mg Given 10/03/2018 08:23 EST 75 mg 75 mg, Oral, DAILY EVERY MORNING, First dose on Sun10/03/18 at 0900, Until Discontinued Given 10/04/2018 09:02 EST 75 mg dextrose 50% injection 25 g Given 10/04/2018 04:09 EST 25 g 25 g, Intravenous, ONCE, 1 dose, Sun10/04/18 at 0430, With insulin 8u iv DOBUTamine (DOBUTREX) Rate/Dose Verify 10/08/2018 12:00 EST 1 mcg/kg/min 1.3 mL/hr 1,000 mg in sodium chloride 0.9% 250 mL IV infusion 1 mcg/kg/min ? 89.5 kg Dosing weight (1.3425 mL/hr, rounded to 1.3 mL/hr), Intravenous, CONTINUOUS, Starting Sun /9/18 at 1800, Until Sun10/08/18 at 1553, Initiate at ordered dose. Do not titrate. Notify prescriber forSBP less than 80 mmHg or for change in clinical condition. Rate/Dose Verify 10/08/2018 13:00 EST 1 mcg/kg/min 1.3 mL/hr Rate/Dose Verify 10/08/2018 14:00 EST 1 mcg/kg/min 1.3 mL/hr DOBUTamine in dextrose Rate/Dose Verify 10/06/2018 12:00 EST 2 mcg/kg/min 5.4 mL/hr 5% (DOBUTREX) 500 mg/250 ml premix infusion 2 mcg/kg/min ? 89.5 kg Dosing weight (5.37 mL/hr, rounded to 5.4 mL/hr), Intravenous, CONTINUOUS, Starting Sun10/04/18 at 1500, Until Sun10/06/18 at 1758, Initiate at ordered dose. Do not titrate. Notify prescriber forSBP less than 80 mmHg or for change in clinical condition. Rate/Dose Verify 10/06/2018 14:00 EST 2 mcg/kg/min 5.4 mL/hr Rate/Dose Verify 10/06/2018 18:06 EST 2 mcg/kg/min 5.4 mL/hr dofetilide (TIKOSYN) capsule 125 mcg Given 10/03/2018 08:23 EST 125 mcg 125 mcg, Oral, EVERY 12 HOURS NON-STANDARD, First dose on Sun10/02/18 at 2130, Until Discontinued Given 10/03/2018 21:30 EST 125 mcg Given 10/04/2018 09:02 EST 125 mcg furOSEmide (LASIX) 100 mg in Rate/Dose Change 10/07/2018 10:10 EST 10 mg/hr 5 mL/hr sodium chloride 0.9% 100 mL IV infusion 10 mg/hr (10 mL/hr), Intravenous, CONTINUOUS, Starting Sun10/04/18 at 1645, Until 10/07/18 at 1042 Rate/Dose Change 10/07/2018 10:12 EST 10 mg/hr 10 mL/hr $$New Bag$$ 10/07/2018 10:13 EST 10 mg/hr 10 mL/hr furOSEmide (LASIX) injection 40 mg Given 10/03/2018 10:02 EST 40 mg 40 mg, Intravenous, ONCE, 1 dose, Vandana 10/03/18 at 0900, Administer by slow IV push at a rate not exceeding 40mg/min furOSEmide (LASIX) injection 80 mg Given 10/03/2018 12:13 EST 80 mg 80 mg, Intravenous, ONCE, 1 dose, Vandana 10/03/18 at 1230, Administer by slow IV push at a rate not exceeding 40mg/min furOSEmide (LASIX) injection 80 mg Given 10/03/2018 16:50 EST 80 mg 80 mg, Intravenous, ONCE, 1 dose, Vandana 10/03/18 at 1545, Administer by slow IV push at a rate not exceeding 40mg/min furOSEmide (LASIX) injection 80 mg Given 10/04/2018 18:36 EST 80 mg 80 mg, Intravenous, ONCE, 1 dose, Sun10/04/18 at 1715, Administer by slow IV push at a rate not exceeding 40mg/min furOSEmide (LASIX) injection 80 mg Given 10/05/2018 17:21 EST 80 mg 80 mg, Intravenous, ONCE, 1 dose, 10/05/18 at 1700, Administer by slow IV push at a rate not exceeding 40mg/min furOSEmide (LASIX) injection 1 dose, Starting Vandana 10/03/18 at 1155, Until Vandana 10/03/18 at 1213, Created by cabinet override Administer by slow IV push at a rate not exceeding 40mg/min insulin regular (HumuLIN R;NovoLIN R) injection Given 10/04/2018 04:08 EST 8 Units 8 Units 8 Units, Intravenous, ONCE, 1 dose, Sun10/04/18 at 0430, Give before meal or with first bite of food. An initial vial will be sent from the pharmacy without prompting. Replacement vials require a MAR request when needed. Pyxis has a vial for emergent doses only. isosorbide mononitrate (IMDUR) tablet XL 30 mg Given 10/05/2018 08:07 EST 30 mg 30 mg, Oral, DAILY, First dose on Vandana 10/03/18 at 0900, Until Discontinued, Do not crush or chew. May be divided in half. Given 10/06/2018 07:46 EST 30 mg Given 10/07/2018 09:05 EST 30 mg levetiracetam (KEPPRA) 1,500 mg $$New Bag$$ 10/06/2018 22:25 EST 1,500 mg 500 mL/hr in sodium chloride 0.9%, with overfill 125 mL (total volume) IVPB 1,500 mg, Intravenous, at 500 mL/hr, Administer over 15 Minutes, ONCE, 1 dose, 10/06/18 at 2100 Rate/Dose Verify 10/06/2018 22:25 EST 500 mL/hr levetiracetam (KEPPRA) tablet 500 mg Given 10/05/2018 08:07 EST 500 mg 500 mg, Oral, EVERY 12 HOURS, First dose on Sun10/04/18 at 2100, Until Discontinued Given 10/05/2018 21:24 EST 500 mg Given 10/06/2018 07:46 EST 500 mg levetiracetam (KEPPRA) tablet 750 mg Given 10/03/2018 08:23 EST 750 mg 750 mg, Oral, EVERY 12 HOURS, First dose on Vandana 10/03/18 at 0900, Until Discontinued Given 10/03/2018 21:30 EST 750 mg Given 10/04/2018 09:02 EST 750 mg levothyroxine (SYNTHROID) tablet 100 mcg Given 10/07/2018 09:05 EST 100 mcg 100 mcg, Oral, DAILY, First dose on Vandana 10/03/18 at 0900, Until Discontinued Given 10/08/2018 09:36 EST 100 mcg Given 10/09/2018 09:22 EST 100 mcg metolazone (ZAROXOLYN) tablet 2.5 mg Given 10/03/2018 16:17 EST 2.5 mg 2.5 mg, Oral, NEEDED, Starting Sun10/02/18 at 2036, Until Sun10/08/18 at 1022, Taking 2-3 times per week alternating with potassium per PCP Given 10/03/2018 21:30 EST 2.5 mg mexiletine (MEXITIL) capsule 150 mg Given 10/07/2018 05:46 EST 150 mg 150 mg, Oral, EVERY 8 HOURS, First dose on Vandana 10/03/18 at 0000, Until Discontinued Given 10/07/2018 14:13 EST 150 mg Given 10/07/2018 21:59 EST 150 mg Perflutren Lipid Microsphere Given - Radiology 10/03/2018 09:26 EST 2 mL (DEFINITY) 1.5 mL in sodium chloride (PF) 0.9% 8.5 mL 10 mL, Intravenous, ONCE, 1 dose, [facility] 10/03/18 at 1000, Dilute 1.3 mL of Definity with 8.7 mL of 0.9% sodium chloride and draw up in a 10 mL syringe. Administration during procedure as directed by physician. Recorded MAR dose is cumulative amount given during procedure. potassium chloride (K-DUR, KLOR-CON M20) tablet Given 10/07/2018 09:05 EST 40 mEq ER 40 mEq 40 mEq, Oral, ONCE, 1 dose, 10/07/18 at 0730, Swallow tablets whole; do not crush, chew, or suck on tablet. Tablet may also be broken in half and each half swallowed separately. rOPINIRole (REQUIP) tablet 2 mg Given 10/03/2018 16:56 EST 2 mg 2 mg, Oral, 2 TIMES DAILY, First dose on Sun10/02/18 at 2130, Until Discontinued Given 10/04/2018 18:42 EST 2 mg Given 10/05/2018 21:24 EST 2 mg sodium bicarbonate injection 50 mEq Given 10/04/2018 04:16 EST 50 mEq 50 mEq, Intravenous, ONCE, 1 dose, Sun10/04/18 at 0445 sodium polystyrene (KAYEXALATE) oral suspension 45 Given 10/04/2018 04:32 EST 45 g g 45 g, Oral, ONCE, 1 dose, Sun10/04/18 at 0430, Administer first dose without regard to timing of other oral medications. For subsequent doses, separate oral medications by at least 3 hours before or after administration of sodium polystyrene sulfonate. in this encounter
--- OUTSIDE RECORDS SUMMARY | 2019-01-20 05:52 | XMS RPT_ITS | Continuity of Care Document ---
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 they are considering him for watchman but righ tndarrius on asa and plavix wouldhav to do through study. right now no antigcoag until stronger and [facility] neuro clear. Status: Active Autonomic instability (G90.9, 337.9) Status: Active Benign prostatic hypertrophy without lower urinary tract symptoms (N40.0, 600.00) Status: Active BMI 29.0-29.9,adult (Z68.29, V85.25) Status: Active BMI 29.0-29.9,adult (Z68.29, V85.25) Status: Active BMI 30.0-30.9,adult (Z68.30, V85.30) Status: Active Cardiac dysrhythmia (I49.9, 427.9) Comments: see Dr. johnson concepcion. VT is pace terminated. some atrial arrthymias. they put him on max tikosyn and are watching his rhythym and signs and symptoms doing well not need to deal with amio and thryioecto my. will follow up with eladiapaw reviewed with patient specialist's note Status: Active Cardiomyopathy (I42.9, 425.4) Comments: MAGDALENA -16 30% 3-18 30% Status: Active CKD (chronic kidney disease), stage 3 (moderate) (N18.3, 585.3) Comments: crcl 62 at 1.4 on 02-11 had cath - up to 1.9 now trend down 1.8 [facility] stop ACEI while in hospital for tikosyn. help some Status: Active COPD (chronic obstructive pulmonary disease) (J44.9, 496) Comments: he is doing well now. all cleared will now sto the steriod inhaler and will do duoneb bid for one more week. he hadn ot needed any scheduled inhalers prior to getting sick. Status: Active Coronary artery disease (I25.10, 414.00) Comments: cath 14, -16. see cardio Status: Active Current drinker of alcohol (Z78.9, V49.89) Comments: right now drink 3 times a week one mixed drink. Status: Active Debilitated (R53.81, 799.3) Comments: finaly able to get into NH and get rehabbed Status: Active Dental abscess (K04.7, 522.5) Comments: ? 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 grieve loss of what could do. not able to golf. nto able to do as much outside. he will exercis enow at , go with golf buddies. will see how allthis works then in next 1-2 months if not better modd conseling. last resort meds wbc interactions. 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 Status: Active Encounter for health maintenance examination with abnormal findings (Z00.01, V70.0) Comments: 06-16-16 [facility] 02[facility]12 [facility] reviewed with patient all questions. up to date on immunizations, PSA colonoscopy 06-12-17 (rpt 10 years) talk about exercise start on bike 5 days a week 20 min, BMI=30.0, 6CIT=, PHQ-9=1 (minimal depression) dentist and eye exm yearly Status: Active Erectile dysfunction (N52.9, 607.84) Comments: not able to take viagra ask about l arginine. look up literature about in medical journals. look like swiss study that it did help. no side effects gave pt abstract. talk about muse ther apy or penil e implant. only way for viagra is if cardio okays coming off idorbibe Status: Active Generally unsteady (R26.81, 781.2) Comments: ? keppra, ? dry ? hydrocephalus ? new issue like parkinsonison see neuro in next month check labs will increase oral fliuds he gained 5 pounds recently so not want to lower duiretcs. moist mm. if labs and atb treatment for infectio nnow help then image brain for hydrocephalus. keep neuro appt willcall or go to ER if new or worsening neuro signs and symptoms Status: Active History of CHF (congestive heart failure) (Z86.79, V12.59) Comments: systolic and diastolic. EF 30% Status: Active History of tobacco abuse (Z87.891, V15.82) Status: Active Hyperplasia, prostate (N40.0, 600.90) Comments: urination okay Status: Active Hypertension (I10, 401.9) Comments: BP even better with weight loss. Status: Active Hypomagnesemia (E83.42, 275.2) Comments: stable Status: Active Hypothyroid (E03.9, 244.9) Comments: good now Status: Active Itching (L29.9, 698.9) Status: Active Leg weakness (R29.898, 729.89) Comments: better with lower meds. Status: Active Macrocytosis (D75.89, 289.89) Comments: no anemai new over last 6 months. will check vit B12 and reticulocyte folate RDW okay. no etoh. tsh good Status: Active Memory loss (R41.3, 780.93) Comments: stable not notice owrsen. mild pt not get lost able to remember conversation Status: Active Mixed hyperlipidemia (E78.2, 272.2) Comments: reveiwed with patient recent tests and good LDL-p and small LDL and mpo good. trig up some need tighten sugars. Status: Active Nonsmoker (Z78.9, V49.89) Status: Active Obesity (E66.9, 278.00) Comments: starting to get back off. Status: Active Obstructive sleep apnea, adult (G47.33, 327.23) Comments: being good with cpap hard with restless leg Status: Active Peripheral vascular disease (I73.9, 443.9) Status: Active RLS (restless legs syndrome) (G25.81, 333.94) Comments: better after ablatio and with new heart medication mexilitine Status: Active Seizure (R56.9, 780.39) Comments: had another seizure in [facility] seen neuro and javon leslie again. CT scan of head 10-15 no change will see [facility] neurology 02-[address] then Status: Active Sensorineural hearing loss (SNHL) of both ears (H90.3, 389.18) Comments: use hearing aides as need not like irritation Status: Active Shortness of breath (R06.02, 786.05) Comments: more now ? extra fluid. ? related to weakness in legs and overall exercise intolerance. 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: Active Thrombocytopenia (D69.6, 287.5) Status: Active Vitamin D insufficiency (E55.9, 268.9) Status: Active Medications Name Dates Details Aspirin EC 81 MG Oral Tablet Delayed Release [address] daily for 0 days Quantity: 30 {Tablet} Refills: 0 Ordered:13-Mar-2017 Anabella Núñez MD, MD, Dana M Start : 08-Jan-2017 Active Atorvastatin Calcium 10 MG Oral Tablet 1 (one) Tablet qd for 0 days Quantity: 30 {Tablet} Refills: 6 Ordered:08-Feb-2018 Anabella Núñez MD, MD, Dana M Start : 08-Feb-2018 Active Bumex 2 MG Oral Tablet 1 (one) tablet bid for 0 days Quantity: 120 {Tablet} Refills: 0 Ordered:11-Nov-2018 Anabella Núñez MD, MD, Dana M Start : 11-Nov-2018 Active HydrALAZINE HCl 25 MG Oral Tablet tid (25 MG) Active Isosorbide Mononitrate ER 60 MG Oral Tablet Extended Release 24 Hour 1 (one) Tablet in am for 0 days Quantity: 30 {Tablet} Refills: 5 Ordered:28-May-2018 Anabella Núñez MD, MD, Dana M Start : 28-May-2018 Active Januvia 50 MG Oral Tablet 1 Tablet QD for 0 days Quantity: 90 {Tablet} Refills: 3 Ordered:28-Sep-2017 Anabella Núñez MD, MD, Dana M Start : 28-Sep-2017 Active LevETIRAcetam 1000 MG Oral Tablet 1 Tablet bid for 0 days Quantity: 60 {Tablet} Refills: 3 Ordered:08-Oct-2018 Anabella Núñez MD, MD, Dana M Start : 08-Oct-2018 Active Comments:easy open top Levothyroxine Sodium 50 MCG Oral Tablet 1 (one) Tablet daily for 0 days Quantity: 90 {Tablet} Refills: 3 Ordered:17-Aug-2017 Anabella Núñez MD, MD, Dana M Start : 17-Aug-2017 Active Comments:changed from [facility] dc summary MagOx 400 400 (241.3 Mg) MG Oral Tablet 1 (one) Tablet qd for 0 days Quantity: 90 {Tablet} Refills: 3 Ordered:19-Aug-2018 Anabella Núñez MD, MD, Dana M Start : 19-Aug-2018 Active Metoprolol Succinate ER 25 MG Oral Tablet Extended Release 24 Hour in am (25 MG) Active Mexiletine HCl 150 MG Oral Capsule 1 (one) Capsule tid for 0 days Quantity: 90 {Capsule} Refills: 6 Ordered:01-Aug-2018 Anabella Núñez MD, MD, Dana M Start : 01-Aug-2018 Active MiraLax Oral Powder 1 (one) Gram 17 grams in am for 0 days Quantity: 1 {Bottle} Refills: 0 Ordered:11-Nov-2018 Anabella Núñez MD, MD, Dana M Start : 11-Nov-2018 Active NITROSTAT, 0.4MG (Sublingual Tablet Sublingual) 1 (one) Tab Sublingual tid/prn for 0 days Quantity: 30 {Tab_Sublingual} Refills: 4 Ordered:15-Nov-2015 Anabella Núñez MD, MD, Dana M Start : 15-Nov-2015 Active Potassium Chloride Oksana ER 20 MEQ Oral Tablet Extended Release 1 (one) Tablet ER qd for 0 days Quantity: 60 {Tablet} Refills: 6 Ordered:11-Nov-2018 Anabella Núñez MD, MD, Dana M Start : 11-Nov-2018 Active Ranexa 1000 MG Oral Tablet Extended Release 12 Hour 1 Tablet bid for 0 days Quantity: 180 {Tablet} Refills: 3 Ordered:29-May-2018 Anabella Núñez MD, MD, Dana M Start : 29-May-2018 Active Requip 2 MG Oral Tablet 2 (two) Tablet bid for 0 days Quantity: 90 {Tablet} Refills: 3 Ordered:11-Nov-2018 Anabella Núñez MD, MD, Dana M Start : 11-Nov-2018 Active Triamcinolone Acetonide 0.5 % External Cream uad Application apply thin layer to inner portion of lower legs qd for 0 days Quantity: 30 {Gram} Refills: 1 Ordered:11-Nov-2018 Anabella Núñez MD, MD, Dana M Start : 11-Nov-2018 Active Comments:mix with Sarna ACIPHEX, 20MG (Oral Tablet Delayed Release) [address] qd for 0 days Quantity: 30 {Tablet_DR} Refills: 3 Ordered:13-Oct-2010 MATILDA Hernandez Start : 19-Jun-2008 End : 13-Oct-2010 Inactive Altace 10 MG Oral Capsule 1 Capsule qd for 0 days Quantity: 90 {Capsule} Refills: 3 Ordered:10-Jul-2016 MATILDA Hernandez Start : 26-Oct-2015 End : 10-Jul-2016 Inactive AMARYL, 2MG (Oral Tablet) 1 (one) Tablet qhs for 0 days Quantity: 360 {Tablet} Refills: 3 Ordered:02-Nov-2011 MATILDA Hernandez Start : 15-Aug-2011 End : 02-Nov-2011 Inactive AMLODIPINE BESYLATE, 5MG (Oral Tablet) 1 qd for 0 days Refills: 0 Ordered:07-Apr-2011 MATILDA Hernandez End : 07-Apr-2011 Inactive ASPIRIN (325MG) W/ALUM/MAG (PO Tab) 1 qd (325 MG) Inactive Augmentin 875-125 MG Oral Tablet 1 Tablet bid for 14 days Quantity: 28 {Tablet} Refills: 0 Ordered:13-Aug-2018 Dami ROGERS, Anabella Bowie MD, Anabella Miller Start : 13-Aug-2018 End : 27-Aug-2018 Inactive Basaglar KwikPen 100 UNIT/ML Subcutaneous Solution Pen-injector 10 units daily (100 UNIT/ML) Inactive BIAXIN XL, 500MG (Oral Tablet Extended Release 24 Hour) 2 (two) Tablet ER 24HR daily for 0 days Quantity: 20 {Tablet_ER_24HR} Refills: 0 Ordered:16-Jan-2011 MATILDA Hernandez Start : 13-Oct-2010 End : 16-Jan-2011 Inactive Budesonide 0.5 MG/2ML Inhalation Suspension 2 (two) Milliliter Milliliter q 12 hours prn for 0 days Quantity: 1 {Box} Refills: 0 Ordered:22-Feb-2018 MATILDA Hernandez Start : 21-Jan-2018 End : 22-Feb-2018 Inactive Cefdinir 300 MG Oral Capsule 1 (one) Capsule bid for 0 days Quantity: 20 {Capsule} Refills: 0 Ordered:14-Jan-2018 MATILDA Hernandez Start : 10-Jan-2018 End : 14-Jan-2018 Inactive CHERATUSSIN AC, 100-10MG/5ML (Oral Syrup) 1 Teaspoon(s) qhs prn for 0 days Quantity: 6 {Ounce(s)} Refills: 0 Ordered:10-Jul-2013 MATILDA Hernandez Start : 11-Dec-2012 End : 10-Jul-2013 Inactive Comments:six CIPRO, 500MG (Oral Tablet) 1 Tablet bid for 5 days Quantity: 10 {Tablet} Refills: 0 Ordered:12-May-2010 Radha Salgado Start : 09-May-2010 Inactive ClonazePAM 1 MG Oral Tablet 1 (one) Tablet tid prn for 0 days Quantity: 60 {Tablet} Refills: 0 Ordered:31-Jan-2018 MATILDA Hernandez Start : 21-Jan-2018 End : 31-Jan-2018 Inactive CLOTRIMAZOLE, 10MG (Mouth/Throat Juan) 1 (one) Juan 5x daily for 10 days Quantity: 50 {Juan} Refills: 0 Ordered:16-Sep-2015 MATILDA Hernandez Start : 13-Sep-2015 End : 16-Sep-2015 Inactive Coreg 12.5 MG Oral Tablet 1 1/2 Tablet bid for 0 days Quantity: 270 {Tablet} Refills: 3 Ordered:11-Nov-2018 MATILDA Hernandez Start : 31-May-2018 End : 11-Nov-2018 Inactive CRESTOR, 5MG (Oral Tablet) 1 qd (5 MG) Inactive DIFLUCAN, 150MG (Oral Tablet) 1 (one) Tablet in am when done with levaquin for 0 days Quantity: 1 {Tablet} Refills: 0 Ordered:26-Oct-2015 Olesya Mcelroy Start : 21-Sep-2015 End : 26-Oct-2015 Inactive Doxycycline Hyclate 100 MG Oral Capsule 1 Capsule bid for 10 days Quantity: 20 {Capsule} Refills: 0 Ordered:21-Jan-2018 MATILDA Hernandez Start : 14-Jan-2018 End : 21-Jan-2018 Inactive Ferrous Sulfate 325 (65 Fe) MG Oral Tablet Delayed Release 1 (one) Tablet DR Tablet DR qd-bid as directed for 0 days Quantity: 60 {Tablet} Refills: 0 Ordered:11-Jun-2017 Rola Walker Start : 09-Jan-2017 End : 11-Jun-2017 Inactive HumaLOG 100 UNIT/ML Subcutaneous Solution start 150 BS before meals SS (100 UNIT/ML) Inactive Ipratropium-Albuterol 0.5-2.5 (3) MG/3ML Inhalation Solution 3 (three) Milliliter Milliliter qid prn for 0 days Quantity: 2 {Box} Refills: 0 Ordered:22-Feb-2018 MATILDA Hernandez Start : 21-Jan-2018 End : 22-Feb-2018 Inactive K-DUR, 20MEQ (Oral Tablet Extended Release) 1 (one) Tablet ER QD for 0 days Quantity: 30 {Tablet_ER} Refills: 6 Ordered:25-Jun-2008 MATILDA Hernandez Start : 25-Jun-2008 End : 23-Apr-2009 Inactive LASIX, 40MG (Oral Tablet) 1 (one) Tablet daily for 0 days Quantity: 90 {Tablet} Refills: 3 Ordered:17-Mar-2016 MATILDA Hernandez Start : 17-Mar-2016 End : 17-Mar-2016 Inactive Levaquin 500 MG Oral Tablet 1 Tablet Tablet qd for 0 days Quantity: 10 {Tablet} Refills: 0 Ordered:10-Oct-2016 Dami ROGERS, Anabella Bowie MD, Anabella Miller Start : 10-Oct-2016 End : 10-Oct-2016 Inactive Levemir FlexTouch 100 UNIT/ML Subcutaneous Solution Pen-injector 20 Unit Unit SC qd for 0 days Quantity: 1 {Pre-filled_Pen_Syringe} Refills: 0 Ordered:28-May-2018 MATILDA Hernandez Start : 22-Jan-2018 End : 28-May-2018 Inactive LOPRESSOR, 50MG (Oral Tablet) 1 Tablet bid for 0 days Quantity: 60 {Tablet} Refills: 6 Ordered:07-Apr-2011 MATILDA Hernandez Start : 02-Nov-2009 End : 07-Apr-2011 Inactive Milk of Magnesia Concentrate 2400 MG/10ML Oral Suspension 1 (one) Milliliter after 5 days without BM take 30 cc and may repeat in 4 hours for 0 days Quantity: 1 {Milliliter} Refills: 0 Ordered:28-May-2018 MATILDA Hernandez Start : 02-May-2018 End : 28-May-2018 Inactive NASACORT AQ, 55MCG/ACT (Nasal Aerosol Solution) 1 Aerosol Soln spray each nostril daily for 0 days Quantity: 1 {Aerosol_Soln} Refills: 0 Ordered:07-Apr-2011 MATILDA Hernandez Start : 13-Oct-2010 End : 07-Apr-2011 Inactive NYSTATIN, [id number]/GM (External Powder) 1 Powder bid for 0 days Quantity: 1 {Powder} Refills: 0 Ordered:05-Feb-2012 MATILDA Hernandez Start : 24-Nov-2011 End : 05-Feb-2012 Inactive OneTouch Ultra Blue In Vitro Strip 1 (one) Strip test qid for 30 days Quantity: 150 {Strip} Refills: 11 Ordered:28-May-2018 MATILDA Hernandez Start : 03-Apr-2018 End : 28-May-2018 Inactive Comments:E11.22 OneTouch UltraSoft Lancets Miscellaneous 1 (one) Misc Misc test qid for 30 days Quantity: 120 {Each} Refills: 11 Ordered:28-May-2018 MATILDA Hernandez Start : 28-Jan-2018 End : 28-May-2018 Inactive Comments:E11.2 PRAVASTATIN SODIUM, 40MG (Oral Tablet) Tablet QD for 0 days Quantity: 90 {Tablet} Refills: 3 Ordered:03-Feb-2010 MATILDA Hernandez Start : 26-Jul-2009 Inactive PredniSONE 1 MG Oral Tablet 3 (three) Tablet for 3 days 2 for 3 days 1 for 3 days with food for 0 days Quantity: 18 {Tablet} Refills: 0 Ordered:14-Jan-2018 MATILDA Hernandez Start : 10-Jan-2018 End : 14-Jan-2018 Inactive Comments:natalie eievi am PredniSONE 20 MG Oral Tablet 1 Tablet uad for 9 days Refills: 0 Ordered:29-Aug-2016 Dami ROGERS, Anabella Bowie MD, Anabella Miller Start : 29-Aug-2016 End : 07-Sep-2016 Inactive Comments:2 a d for 3 d, 1 a d for 3d, 1/2 a d for 3 d PROAIR HFA, 108 (90 Base)MCG/ACT (Inhalation Aerosol Solution) 1 (one) Aerosol Soln Aerosol Soln 1-2 puffs every 6 horus prn for 0 days Quantity: 1 {Each} Refills: 0 Ordered:17-Mar-2016 MATILDA Hernandez Start : 07-Sep-2015 End : 17-Mar-2016 Inactive PROPYLTHIOURACIL, 50MG (Oral Tablet) 4 tid for 0 days Refills: 0 Ordered:21-Sep-2008 MATILDA Hernandez End : 21-Sep-2008 Inactive PROVENTIL HFA, 108 (90 Base)MCG/ACT (Inhalation Aerosol Solution) 1 (one) Aerosol Soln Aerosol Soln 2 puffs every 6 hrous prn for 0 days Quantity: 1 {Container} Refills: 0 Ordered:16-Oct-2014 MATILDA Hernandez Start : 20-Jan-2014 End : 16-Oct-2014 Inactive PYRIDIUM, 100MG (Oral Tablet) 1 Tablet tid for 2 days Quantity: 6 {Tablet} Refills: 0 Ordered:11-May-2010 Daria Lowe CNP Start : 09-May-2010 End : 11-May-2010 Inactive SCOPOLAMINE BASE, 1.5MG (Transdermal Patch 72 Hour) uad Patch 72HR as directed for 0 days Quantity: 4 {Patch_72HR} Refills: 0 Ordered:23-Apr-2009 MATILDA Hernandez End : 26-Jul-2009 Inactive Comments:apply one patch behind ear atleast 4 hours before travel, remove after 72 hours and repeat if needed SILVADENE, 1% (External Cream) uad Cream bid to affected area(s) for 0 days Quantity: 1 {Cream} Refills: 1 Ordered:06-May-2012 MATILDA Hernandez Start : 20-Feb-2012 End : 06-May-2012 Inactive Comments:dispense large tube if possible Skelaxin 800 MG Oral Tablet 1 (one) Tablet tid prn for 0 days Quantity: 20 {Tablet} Refills: 0 Ordered:10-Jul-2016 MATILDA Hernandez Start : 16-Jun-2016 End : 10-Jul-2016 Inactive TRAMADOL HCL, 50MG (Oral Tablet) 1 Tablet qd/prn for 0 days Quantity: 30 {Tablet} Refills: 2 Ordered:21-Nov-2012 MATILDA Hernandez Start : 26-Jun-2011 End : 21-Nov-2012 Inactive TRILIPIX, 135MG (Oral Capsule Delayed Release) [address] qd for 0 days Quantity: 30 {Capsule_DR} Refills: 0 Ordered:08-Jan-2014 MATILDA Hernandez Start : 15-Aug-2011 End : 08-Jan-2014 Inactive TRILIPIX, 135MG (Oral Capsule Delayed Release) 1 qd for 0 days Refills: 0 Ordered:17-Apr-2011 MATILDA Hernandez End : 17-Apr-2011 Inactive VICODIN ES, 7.5-750MG (Oral Tablet) 1 (one) Tablet 4-6 hrs prn pain for 0 days Quantity: 30 {Tablet} Refills: 0 Ordered:13-Oct-2010 MATILDA Hernandez Start : 09-May-2010 End : 13-Oct-2010 Inactive VICODIN, 5-500MG (Oral Tablet) 1-2 Tablet every 6 hours prn for 0 days Quantity: 30 {Tablet} Refills: 1 Ordered:15-Aug-2011 MATILDA Hernandez Start : 09-Mar-2011 End : 15-Aug-2011 Inactive ZOSTAVAX, 47634XGS/0.65ML (Subcutaneous Solution Reconstituted) 1 For Solution once for 0 days Quantity: 1 {For_Solution} Refills: 0 Ordered:02-Nov-2009 MATILDA Hernandez Start : 07-Sep-2009 Inactive ACTOS, 45MG (Oral Tablet) 1 Daily for 0 days Refills: 0 Ordered:03-Sep-2007 Shonda Tello End : 06-Jul-2006 Discontinued ALBUTEROL SULFATE HFA, 108 (90 Base)MCG/ACT (Inhalation Aerosol Solution) 1 (one) Aerosol Soln QID/PRN for 0 days Quantity: 1 {box} Refills: 1 Ordered:31-Jan-2007 Shonda Tello Start : 31-Jan-2007 End : 18-Feb-2007 Discontinued ALBUTEROL SULFATE HFA, 108MCG/ACT (Inhalation Aerosol Soln) 2 (two) Aerosol Soln qid prn for 0 days Quantity: 1 {Aerosol_Soln} Refills: 2 Ordered:31-Jan-2007 Shonda Tello Start : 31-Jan-2007 End : 03-Sep-2007 Discontinued ALTACE, 10MG (Oral Capsule) 1 Capsule Daily for 0 days Quantity: 90 {Capsule} Refills: 3 Ordered:14-Nov-2006 MATILDA Hernandez Start : 14-Nov-2006 End : 05-Dec-2007 Discontinued ASMANEX 120 METERED DOSES, 220MCG/INH (Inhalation Aerosol Powder Breath Activated) 2 (two) Aero Pow Br Act Daily for 0 days Refills: 0 Ordered:18-Feb-2007 Shonda Tello Start : 18-Feb-2007 End : 03-Sep-2007 Discontinued Comments:rinse mouth after use BYETTA 10 MCG PEN, 10MCG/0.04ML (Subcutaneous Solution) 10 mcg Solution Twice daily for 0 days Quantity: 30 {Solution} Refills: 5 Ordered:03-Jul-2006 Shonda Tello Start : 03-Jul-2006 End : 06-Jul-2006 Discontinued CEFTIN, 500MG (Oral Tablet) 1 (one) Tablet Twice daily for 0 days Quantity: 28 {Tablet} Refills: 0 Ordered:31-Jan-2007 Shonda Tello Start : 31-Jan-2007 End : 18-Feb-2007 Discontinued Clopidogrel Bisulfate 75 MG Oral Tablet 1 Tablet daily for 0 days Quantity: 90 {Tablet} Refills: 3 Ordered:04-Oct-2017 Anabella Núñez MD, MD, Dana M Start : 04-Oct-2017 End : 28-Oct-2018 Discontinued COREG, 25MG (Oral Tablet) 1 Tablet Twice daily for 0 days Quantity: 180 {Tablet} Refills: 3 Ordered:06-May-2007 MATILDA Hernandez Start : 06-May-2007 End : 05-Dec-2007 Discontinued Dofetilide 250 MCG Oral Capsule 1 (one) Capsule Capsule bid for 0 days Quantity: 180 {Capsule} Refills: 3 Ordered:28-Sep-2017 Anabella Núñez MD, MD, Dana M Start : 28-Sep-2017 End : 28-Oct-2018 Discontinued DOXY-CAPS, 100MG (Oral Capsule) 1 (one) Capsule Twice daily for 14 days Quantity: 28 {Capsule} Refills: 0 Ordered:02-Oct-2007 Anabella Núñez MD, MD, Dana M Start : 02-Oct-2007 End : 16-Jan-2011 Discontinued Comments:This order discontinued per [facility]. Escitalopram Oxalate 5 MG Oral Tablet 1 (one) Tablet Tablet qd for 0 days Quantity: 30 {Tablet} Refills: 0 Ordered:28-Oct-2018 Anabella Núñez MD, MD, Dana M Start : 27-Sep-2018 End : 28-Oct-2018 Discontinued FLONASE, 50MCG/ACT (Nasal Suspension) 1 (one) Suspension Suspension 2 sprays each nostril daily for 0 days Quantity: 1 {Container} Refills: 1 Ordered:15-Feb-2016 MATILDA Hernandez Start : 15-Feb-2016 End : 17-Mar-2016 Discontinued Comments:This order discontinued per [facility]. GLUCOPHAGE, 500MG (Oral Tablet) Tablet QD for 0 days Refills: 0 Ordered:03-Sep-2007 Anabella Núñez MD, MD, Dana M Start : 11-Jan-2007 End : 03-Sep-2007 Discontinued HYDRALAZINE HCL, 25MG (Oral Tablet) 1 Twice daily for 0 days Refills: 0 Ordered:06-Jul-2006 Shonda Tello Start : 06-Jul-2006 End : 03-Sep-2007 Discontinued ISOSORBIDE MONONITRATE, 30MG (Oral Tablet Extended Release 24 Hour) 3 Tablet ER 24HR qd for 0 days Quantity: 90 {Tablet_ER_24HR} Refills: 6 Ordered:07-Dec-2008 MATILDA Hernandez Start : 07-Dec-2008 End : 15-Sep-2010 Discontinued Comments:This order discontinued per [facility]. KlonoPIN 1 MG Oral Tablet 1 (one) Tablet Tablet qhs prn for 0 days Quantity: 30 {Tablet} Refills: 2 Ordered:09-Jan-2017 Anabella Núñez MD, MD, Dana M Start : 09-Jan-2017 End : 25-Jun-2017 Discontinued LevETIRAcetam 500 MG Oral Tablet 1 (one) Tablet bid for 0 days Quantity: 60 {Tablet} Refills: 4 Ordered:04-Feb-2018 Anabella Núñez MD, MD, Dana M Start : 04-Feb-2018 End : 02-Apr-2018 Discontinued Comments:easy open top just stoping 04-03-18 MetOLazone 2.5 MG Oral Tablet uad Tablet on sunday will take second does on sunday if weight and ss deem for 0 days Quantity: 30 {Tablet} Refills: 3 Ordered:16-Sep-2018 Anabella Núñez MD, MD, Dana M Start : 16-Sep-2018 End : 28-Oct-2018 Discontinued NEBULIZER (Device) Device for 0 days Refills: 0 Ordered:31-Jan-2007 Shonda Tello Start : 31-Jan-2007 End : 18-Feb-2007 Discontinued Comments:DX Acute Bronchitis NITRO, 2.5MG (PO Cap CR) PRN for 0 days Refills: 0 Ordered:07-Feb-2007 Shonda Tello Start : 07-Feb-2007 End : 07-Feb-2007 Discontinued Comments:This order discontinued per [facility]. NORVASC, 10MG (Oral Tablet) 1 Tablet qd for 0 days Quantity: 180 {Tablet} Refills: 3 Ordered:06-May-2007 MATILDA Hernandez Start : 06-May-2007 End : 05-Dec-2007 Discontinued PACERONE, 200MG (Oral Tablet) 1 Daily for 0 days Refills: 0 Ordered:06-Jul-2006 Rolanda Morse Start : 06-Jul-2006 End : 20-Nov-2007 Discontinued PREDNISONE, 10MG (Oral Tablet) 1 Tablet for 0 days Refills: 0 Ordered:31-Jan-2007 Shonda Tello Start : 31-Jan-2007 End : 18-Feb-2007 Discontinued PROPYLTHIOURACIL, 50MG (Oral Tablet) 4 Tablet tid for 0 days Refills: 0 Ordered:02-Jan-2008 MATILDA Hernandez Start : 02-Jan-2008 End : 02-Jan-2008 Discontinued Tikosyn 250 MCG Oral Capsule 1 (one) Capsule bid for 0 days Quantity: 180 {Capsule} Refills: 3 Ordered:24-Aug-2017 Anabella Núñez MD, MD, Dana M Start : 24-Aug-2017 End : 24-Aug-2017 Discontinued Vitamin D3 High Potency 1000 UNIT Oral Capsule 1 (one) Capsule Capsule in am for 0 days Quantity: 30 {Capsule} Refills: 0 Ordered:11-Nov-2018 MATILDA Hernandez Start : 25-Jun-2017 End : 11-Nov-2018 Discontinued Comments:This order discontinued per [facility]. ZOCOR, 40MG (Oral Tablet) 1 Tablet Daily for 0 days Quantity: 30 {Tablet} Refills: 5 Ordered:26-Jul-2009 Anabella Núñez MD, MD, Dana M Start : 26-Jul-2009 End : 26-Jul-2009 Discontinued Comments:muscle cramps Allergies and Adverse Reactions Name Dates Details Amiodarone HCl *ANTIARRHYTHMICS* (Allergy) Status: Active Comments: Thyroid storm Demerol *ANALGESICS - OPIOID* (Allergy) Status: Active Comments: Rash Spironolactone *DIURETICS* (Allergy) Status: Active Comments: nausea and dry heaves Past Medical History Name Dates Details Abdominal pain, acute, right lower quadrant (R10.31, 789.03) 06-Aug-2012 Comments: had scope, CT scan good. Status: Inactive as of 06-Aug-2012 Abnormal blood chemistry (R79.9, 790.6) Comments: think because sick. bicarb low wbc up will recheck. AG 16 slightly pu not much will just recheck labs first Status: Inactive as of 08-Jan-2014 Acute back pain, unspecified back location, unspecified back pain laterality (M54.9, 724.5) Comments: acute related to unload soil. tylenol rest gentle strecthing add muscle rleaxnat Status: Resolved as of 25-Dec-2017 Acute bacterial bronchitis (J20.8, 466.0) Comments: was in hospital and better quickly with atb, steriods and aerosols. he was given zithromax for 5 days in hospital therefore not dc on any atb. doing better Status: Resolved as of 05-Nov-2018 Acute CHF (I50.9, 428.0) Comments: 06-11 [facility]f and pacemaker discharge with svt Status: Inactive as of 16-Sep-2015 Acute delirium (R41.0, 780.09) Comments: had as was initiating sleep was reall dry at time labs showed not have repeat and better Status: Resolved as of 16-Nov-2017 Acute renal failure, unspecified acute renal failure type (N17.9, 584.9) Status: Inactive as of 26-Jul-2009 Acute sinusitis, unspecified (J01.90, 461.9) 24-Feb-2010 Status: Inactive as of 21-Nov-2012 AMI NEC, SUBSEQUENT EPISODE (410.82) Comments: NSTEMI, 6-11 at [facility]. change ASA at night and higher, change lopressor to coreg, try again statin low dose. cath 6-11 med treatment consider PCI to RPDA Status: Inactive as of 06-Aug-2012 Anemia, unspecified (D64.9, 285.9) Comments: secondary to hip surgery had 3 units prbc. on iron now. will recheck Status: Inactive as of 08-Jan-2017 Anxiety (F41.9, 300.00) Status: Resolved as of 25-May-2018 Asthmatic bronchitis with acute exacerbation (J45.901, 493.92) Comments: better wtih duiresis. CXR good sputum cx good lungs sound good. still residual cough with some yellow. few days ago malaise. urinate alot will check BS. 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) Status: Inactive as of 14-Jul-2010 BMI 28.0-28.9,adult (Z68.28, V85.24) Status: Resolved as of 25-May-2018 BMI 29.0-29.9,adult (Z68.29, V85.25) Status: Resolved as of 19-Aug-2018 BMI 29.0-29.9,adult (Z68.29, V85.25) Status: Resolved as of 10-Jun-2018 BMI 30.0-30.9,adult (Z68.30, V85.30) Comments: 30.38 Status: Resolved as of 28-Sep-2017 BMI 31.0-31.9,adult (Z68.31, V85.31) Status: Resolved as of 25-Dec-2017 Bronchitis (J40, 490) 16-Jan-2011 Status: Resolved as of 25-May-2018 BURN, ABDOMINAL WALL, 2ND DEGREE (942.23) Status: Inactive as of 21-Nov-2012 Calculus of gallbladder with acute cholecystitis, with obstruction (574.01) 06-Aug-2012 Comments: stent [facility] and now planning gb removal Status: Inactive as of 06-Aug-2012 Change in vision (H53.9, 368.9) Comments: spots when dry Status: Resolved as of 25-Dec-2017 Constipation (K59.00, 564.00) Comments: metamusil and prune juice help but stillhard stools will add miralax daily Status: Resolved as of 25-May-2018 Corns and callosities (L84, 700) Comments: in hospital Dr. curiel remove some callous will follow up up with him mona with DM Status: Inactive as of 21-Nov-2012 Cough (R05, 786.2) Comments: wheezing still yellow on cefdininr and prednisone Status: Resolved as of 25-May-2018 Cough (R05, 786.2) 13-Oct-2010 Comments: had bronchitis treated over the phone treated better than was warned may take weeks to get stamina back. Status: Resolved as of 25-Dec-2017 Cramp in limb (R25.2, 729.82) Status: Resolved as of 15-Aug-2011 Cystitis, acute (N30.00, 595.0) Status: Inactive as of 21-Nov-2012 Dehydration (E86.0, 276.51) Status: Resolved as of 25-May-2018 Diabetes mellitus type II, controlled (E11.9, 250.00) Status: Inactive as of 06-Aug-2012 Diabetic nephropathy (E11.21, 250.40) Comments: on altace. creat up some. Status: Inactive as of 16-Sep-2015 DIABETIC NEPHROPATHY (250.4) Comments: stable, mild Status: Inactive as of 16-Sep-2015 Diverticulosis of colon (K57.30, 562.10) Status: Inactive as of 14-Jul-2010 Dizziness (R42, 780.4) Status: Resolved as of 25-May-2018 Dysphagia (R13.10, 787.2) 06-Aug-2012 Status: Inactive as of 06-Aug-2012 Episode of syncope (R55, 780.2) Comments: this episode sound like seizure. willcheck labs. interigate the pacer. flaco parker status looks good. will talk to cardiology now. Status: Resolved as of 05-Nov-2018 GERD (gastroesophageal reflux disease) (K21.9, 530.81) Comments: need to get back on vegan diet. will change diet or get zantac bid Status: Inactive as of 28-Jan-2016 Gum hyperplasia (K06.1, 523.8) Comments: at site of tooth extraction Plan to go back to dentist Status: Inactive as of 22-Feb-2017 Hemorrhoids (K64.9, 455.6) Status: Inactive as of 05-May-2009 HERNIA, UNILATERAL INGUINAL, W/O OBST/GNGR (550.90) Status: Inactive as of 06-Aug-2012 HYDROCELE NOS (603.9) Status: Inactive as of 06-Aug-2012 Hyperthyroidism (E05.90, 242.90) Status: Inactive as of 06-Aug-2012 Hyposmolality and/or hyponatremia (E87.1, 276.1) Status: Inactive as of 06-Aug-2012 Hypotension, postural (I95.1, 458.0) Comments: n ot had alot steriods not think adrenal insuff. ? infection check labs and urine. seem to be overduiresised. will give 250cc IV fliuds see how do and recheck orthostatics. check stat labs Status: Resolved as of 10-Jun-2018 IT band syndrome, right (M76.31, 728.89) Comments: very tight and knots sent through [facility] portial stretches Status: Resolved as of 28-Sep-2017 Leg swelling (M79.89, 729.81) Status: Resolved as of 25-Dec-2017 NH (myocardial infarction) (I21.9, 410.90) Comments: talk about get records. see what cath showed talk about fish oil await doing biomarker sn inflammatory markers ? [place] related since [facility] [place] had rafa st pain radiated down arm, and squad took him to hospital, told had NH, took off lasix, and put on bumex. did cardiac cath, cardio spoke with Dr. 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 will do steriods. will watch BS for increase. Status: Inactive as of 08-Jan-2017 Renal insufficiency (N28.9, 593.9) Comments: up some Status: Inactive as of 16-Sep-2015 Right anterior shoulder pain (M25.511, 719.41) Comments: will give exrecises tylenol. not ehlp in few weeks xray PT adn injections Status: Inactive as of 16-Sep-2015 Right lower lobe pneumonia (J18.1, 486) Comments: improved Status: Resolved as of 25-Dec-2017 Screening for prostate cancer (Z12.5, V76.44) Status: Resolved as of 28-Sep-2017 SOB (shortness of breath) on exertion (R06.02, 786.05) 06-Aug-2012 Comments: will continue bid lasix x 2 more days then back to daily Status: Inactive as of 17-Mar-2016 Sore throat (J02.9, 462) Comments: with yellow sputumand tooth infection will treat with atb. Status: Resolved as of 05-Nov-2018 Subdural hemorrhage (I62.00, 432.1) Status: Resolved as of 28-May-2018 Thrush (B37.0, 112.0) Status: Inactive as of 28-Jan-2016 Thyroid storm 06-Aug-2012 Comments: seeing shewman--off prednisone. still hyper, continue on PTU consider if need surgery remove in 1 year Status: Inactive as of 06-Aug-2012 Uncoordinated movements (R27.0, 781.3) Comments: really seems like he was dehydrated. not sound like thiamine def. not sound like etoh. could stillhave been a small TIA. he is on the asa and plavix willsend a note to Dr. hu about the ? of af ib and anticoagulation. CTA arteries good echo stable. talked to him about adjusting duiretic. Status: Resolved as of 28-Sep-2017 Unspecified bacterial pneumonia (J15.9, 482.9) Status: Inactive as of 10-Jul-2013 Unspecified Diagnosis Status: Inactive as of 21-Nov-2012 Unspecified Diagnosis Status: Resolved as of 25-May-2018 URI (upper respiratory infection) (J06.9, 465.9) Comments: continue levaquin Status: Inactive as of 17-Mar-2016 Well Male Status: Inactive as of 21-Nov-2012 Wheeze (R06.2, 786.07) Status: Inactive as of 17-Mar-2016 Wheezing (R06.2, 786.07) 13-Oct-2010 Status: Inactive as of 21-Nov-2012 Procedures Procedure Dates Details CABG, USING 3 VENOUS GRAFTS (71997) Completed Comments: 1988, 10-08-02 (SVG to to LAD, SVG to right PDA, radial artery to OM-2) CARDIAC ABLATION (08929) Completed Comments: [facility] , [facility]DA [facility] 10-04-18 cholecytectomy 10-04 Completed CRANIOTOMY, EMERGENT, FOR SUBDURAL Completed HEMATOMA EVACUATION (01633) Comments: [facility] Completed Comments: stent 10-04 Left heart cath Completed Comments: [facility] Right and left coronary angiography, Saphenous vein with angiography hemostatsis with Mynx Dr. [id number] Left Heart Cath [facility] DX: moderate to severe elevated LVEDP pacemaker Completed Comments: 2001, ICD, replaced 06-11 Total right hip replacement Completed Comments: [facility] 11-07-11 rec. 3 units PRBC's Date Value Details 04-Nov-2018 Cardiology Visit Report Result: Comments: See Note; NOTES: [facility] [address] [place] [address] OFFICE VISIT Date of Service: 11/04/18 MR#: [id number] Acct: [id number] Name: MAYRA GHOSH Rep #: [id number] : 1940 Provider: Amando Hu MD Age/Sex: 78/M Location: [facility] Status: Signed HPI HPI Details: MAYRA GHOSH, is a 78 M who presents to the office today for outpatient cardiovascular follow-up. He has recently been at [facility] as well as subsequently at [facility]. He had both noncardiac and cardiovascular issues in progress . From a cardiac standpoint there were concerns of atrial fibrillation which she has not been noted to have in the past. This was despite the patient being on dual antiarrhythmic therapy. He was not fel t to be an ideal candidate for anticoagulation based upon his underlying non-Cardiologic issue with respect to concerns of seizures as well as his previous subdural hematoma requiring surgical evacuatio n. He was subsequently transferred to [facility] for further evaluation. There he underwent AV node ablation. He was left with an underlying electronic ventricular paced rhythm from his underlying ICD. His IC D was not upgraded to a biventricular ICD at the time. He then returned to [facility] because of weakness. There were concerns of the need for additional OT/PT. He is now at an extended care facility being prepared to be released home. Overall he states he is much improved. His volume status is come under better control again. He is up with a cane and/or walker with OT and PT. He de nies any ongoing chest discomfort nor has he had any acute orthopnea or PND. His lower extremities are without obvious edema at this time with his support stockings. There is been no near syncope or syn cope or ICD discharge. His medications have been altered. He is no longer on dual antiarrhythmic therapy. He is now on mexiletine alone. He still is without anticoagulant therapy. His ECG today demons trated somatic/motion artifact with an underlying electronic ventricular paced rhythm Intake Vital Signs11/04/18 Body Mass Index (BMI) 27.3 11/04/18 Height 5 ft 7 in 11/04/18 Weight: 180 lb 11/04/18 B apolinar Mass Index (BMI) 28.1 11/04/18 Blood Pressure 118/60 Intake Visit Reasons: post [facility] Allergies amiodarone Allergy (Verified 11/04/18 15:44) Other meperidine [From Demerol] Allergy (Verified 15:44) Low blood pressure spironolactone Allergy (Verified 11/04/18 15:44) Nausea simvastatin Adverse Reaction (Mild, Verified 11/04/18 15:44) Myalgias Medications Nitroglycerin [Nitrostat] 0.4 mg SUBLINGUAL Q5M PRN 06/02/14 [History Confirmed 11/04/18] Ranolazine [Ranexa] 1,000 mg PO BID 06/02/14 [History Confirmed 11/04/18] Atorvastatin Calcium [Lipitor] 10 mg PO DAILY 08/20/14 [History Confir med 11/04/18] aspirin 81 mg tablet,delayed release 81 mg PO DAILY 11/12/17 [History Confirmed 11/04/18] mexiletine 150 mg capsule 150 mg PO TID cap 08/30/18 [History Confirmed 11/04/18] hydralazine 25 m g tablet 25 mg PO TID 10/14/18 [History Confirmed 11/04/18] isosorbide mononitrate ER 60 mg tablet,extended release 24 hr 60 mg PO DAILY 10/14/18 [History Confirmed 11/04/18] levothyroxine 50 mcg tablet 50 mcg PO DAILY 10/14/18 [History Confirmed 11/04/18] metoprolol succinate ER 25 mg tablet,extended release 24 hr 25 mg PO DAILY 10/14/18 [History Confirmed 11/04/18] Guaifenesin [Mucinex] 600 mg PO BI D 10/16/18 [History Confirmed 11/04/18] Magnesium Oxide [Mag-Ox 400] 400 mg PO DAILY 10/16/18 [History Confirmed 11/04/18] Ropinirole HCl 2 mg PO DAILY 10/16/18 [History Confirmed 11/04/18] Acetaminophe n [Tylenol Tablet] 650 mg PO Q6H PRN PRN tab 10/20/18 [Rx Confirmed 11/04/18] Albuterol Aerosols [Ventolin Aerosols] 2.5 mg INHALATION Q2H PRN PRN vial.neb. 10/20/18 [Rx Confirmed 11/04/18] Insulin Glar gine [Lantus SoloStar Pen] 10 units SUBCUT DAILY pen 10/20/18 [Rx Confirmed 11/04/18] Insulin Lispro [Humalog KwikPen] See Protocol SQ ACHS insuln.pen 10/20/18 [Rx Confirmed 11/04/18] Pantoprazole Sodiu m [Protonix] 40 mg PO DAILY tab 10/20/18 [Rx Confirmed 11/04/18] Senna [Senokot] 1 tab PO BID tab 10/20/18 [Rx Confirmed 11/04/18] aluminum-magnesium hydroxide 225 mg-200 mg/5 mL oral suspension 30 ml P O Q4H PRN 11/04/18 [History Confirmed 11/04/18] bisacodyl 10 mg rectal suppository 10 mg RC DAILY PRN 11/04/18 [History Confirmed 11/04/18] bumetanide 1 mg tablet 2 mg PO BID tab 11/04/18 [History Confi rmed 11/04/18] calcium carbonate 600 mg calcium (1,500 mg) tablet 600 mg PO DAILY tab 11/04/18 [History Confirmed 11/04/18] dextrose 40 % oral gel 15 g PO Q15M PRN 11/04/18 [History Confirmed 11/04/18] glucagon (human recombinant) 1 mg/mL solution for injection 1 mg IM ONCE PRN 11/04/18 [History Confirmed 11/04/18] levetiracetam 1,000 mg tablet 1,000 mg PO DAILY tab 11/04/18 [History Confirmed 9] linagliptin 5 mg tablet 5 mg PO DAILY 11/04/18 [History Confirmed 11/04/18] magnesium hydroxide 400 mg/5 mL oral suspension 30 ml PO DAILY PRN ml 11/04/18 [History Confirmed 11/04/18] potassium chlor dulce ER 20 mEq tablet,extended release 20 meq PO BID 11/04/18 [History Confirmed 11/04/18] [facility] Medical History HLD (hyperlipidemia) (Chronic) Non-ST e levation (NSTEMI) myocardial infarction (Chronic) Angina pectoris (Chronic) CAD (coronary artery disease) (Chronic) Edema (Chronic) Dyspnea (Chronic) Renal disease (Chronic) Fatigue (Chronic) XOCHITL (obstr uctive sleep apnea) (Chronic) Diabetes mellitus type 2, noninsulin dependent (Chronic) Old myocardial infarction (Chronic) Long-term use of high-risk medication (Chronic) Chronic renal failure (Chronic) Cardiac murmur (Chronic) Hypokalemia (Chronic) Atherosclerotic heart disease of [place] coronary artery without angina pectoris (Chronic) Ventricular tachycardia (paroxysmal) (Chronic) ICD (implantable cardioverter-defibrillator) in place (Chronic 11/2001) Systolic CHF, chronic (Chronic) Cardiomyopathy, ischemic (Chronic) Subdural hematoma (Resolved) CAD (coronary artery disease) (Inactive) CHF (bing estive heart failure) (Inactive) Visual hallucination (Inactive) Surgical History History of cardiac radiofrequency ablation (Resolved 10/04/18) Aorto coronary bypass status (Resolved) H/O prior ablation treatment (Resolved 01/03/17) History of craniotomy (Resolved 06/2017) History of herniorrhaphy (Resolved) History of hip replacement (Resolved) Hi story of knee surgery (Resolved) S/P CABG (coronary artery bypass graft) (Inactive) Family History Father , age 91 of CHF CAD (coronary art yeni disease) Hypertension Myocardial infarction CHF (congestive heart failure) Mother , age 68 CAD (coronary artery disease) Myocardial infarction Hypothyroid High cholesterol Social Hist ory Smoking Status: Former smoker how long ago did patient quit smokin alcohol intake: current substance use type: does not use diet: diabetic caffeine: Yes seatbelt use: always ROS Const Con st: Positive for fatigue (improving) and weakness (getting strength); negative for weight gain, weight loss, frequent falls or excessive sweating Eyes Eyes: Negative for change in vision, blurry vision or transient loss of vision ENT ENT: Positive for balance problems (ambulating with walker, had PT ); negative for dizziness Cardio Chest Pain: No Palpitations: No Edema: Bilateral (wearing compression stockings) Muscle aches with walking: None Resp Respiratory: Positive for SOB with activity (improving); negative for SOB at rest GI GI: Negative vomiting or vomiting blood/hematemesis : Negative f or hematuria Musc Musc: Positive for balance problems (ambulating with walker, had PT ); negative for muscle aches/ myalgia, muscle weakness or joint pain Skin Skin: Negative non-healing lesions or rash Neuro Neuro: Positive for weakness (getting strength); negative for blurry vision, dizziness, lightheadedness, frequent falls or orthostatic symptoms Prosper Hematologic/Lymphatic: Negative for easy bleed ing Endo Endo: Positive for fatigue (improving); negative for excessive sweating Psych Psych: Negative for anxiety or depression Allergy Allergy/Immunology: Negative for hives, Negative for rash Cardi ology Exam Const Appearance: cooperative, healthy appearing, comfortable, no acute distress, well developed, well groomed and other (Examined in the wheelchair) Nutritional Appearance: overweight [place] ation: alert, awake and oriented x3 Head Head: normal to inspection, normocephalic and atraumatic Ears: hearing grossly normal bilaterally Nose: external nose normal Mouth: oral mucosae normal Teeth and gingiva: fair dentition Eyes Eyelids: eyelids normal Conjunctivae: conjunctivae normal Pupils: PERRL EOM: EOM intact bilaterally Neck Neck: normal visual inspection and full ROM Carotids: normal caroti d upstroke Chest Chest inspection: normal inspection of the chest, symmetric chest movement and Pacemaker/ICD Auscultation: Bilateral: Clear to Auscultation Cardio Palpation: normal PMI Rate: regular ra te Rhythm: regular rhythm Heart sounds: S1 normal and S2 normal Murmur: Grade 2/6, mid systolic, LLSB, LVOT, apex and high pitched GI GI: normal to inspection, soft and bowel sounds present Neuro Genera l: alert, awake, oriented x3 and other (walks with a cane) Skin Skin: no rashes or lesions noted Extremities Pulses: Normal: Right Radial Pulse, Left Radial Pulse Lower Extremity Edema: Trace: Bilateral (Wearing bilateral support) wearing bilateral support stockings Psych Psychological: normal affect Assessment AND Plan 1. Atrial fibrillation I48.91 Plan At the present time he remains in atrial fibr illation. He is not anticoagulated based on the aforementioned concerns. He does have a follow-up at [facility] with respect to a repeat head/brain CT as well as a follow-up with [facility] neurology. Following that evaluation care consideration may be given as to whether or not he may become a candidate for anticoagulant therapy 2. History of cardiac radiofrequency ablation (RFA) Z98.890 AVN Ablation @ [facility] 10/04 Plan He is now undergone AV node ablation. He remains in an underlying electronic ventricular paced rhythm 3. Automatic implantable cardiac defibrillator in situ Z95.810 Implant 12/10/2001 ICD repl acement 06/10/2009, 06/05/2014, Plan He does have an ICD in place. It has been functioning appropriately past. He is due to have it interrogated later this month 4. Coronary artery disease involving eva nary bypass graft of [place] heart, angina presence unspecified I25.10 Plan He does have a history of underlying CAD and is status post CABG. At the moment he appears without ongoing symptoms of angina p ectoris. He will continue combined medical management Orders Orders: 5. Postsurgical aortocoronary bypass status Z95.1 CABG 1988; Reoperation CABG x3 SVG to LAD, SVG to Rt PDA, Radial artery to OM-2 ; VT ablation @[facility] 01/03/17 Plan Again he has a history of CABG and redo CABG. Again he will continue medical therapy Orders Orders: 6. Cardiomyopathy, ischemic I25.5 Plan He does have an under lying ischemic mediated cardiomyopathy. He does not appear with acute on chronic systolic CHF at the time. Once he is home he will need to monitor his volume status and his weights. There is concerned that he could become volume overloaded and may require alteration of his diuretic therapy or potentially volume deplete and hypotensive and may require alteration in his diuretic therapy This was discu ssed at length with the patient and his spouse 7. Paroxysmal ventricular tachycardia I47.2 Plan He does have a history of paroxysmal ventricular tachycardia. He has been on medical management. He is un dergone EPS/RFA for this. He will continue his current medical therapy and follow up. 8. Hyperlipidemia, unspecified hyperlipidemia type E78.5 Plan He will continue medical management and follow-up 9. Hypertension, unspecified type I10 Plan His blood pressure appears to be well controlled at this time. Again he needs to monitor for any fluctuations up or down for further adjustment of medication Pl an Detail Additional Comments He does have follow-up appointments at [facility] with neurology. He also has a follow-up appointment at [facility] with their CHF team. He was advised to keep these appointments for con tinuity of care He will be scheduled for an outpatient cardiovascular follow- up as well locally. Thank you for allowing me to participate in the care of your patient. Please don't hesitate to call if any issues arise. This note was generated using a voice recognition system and there may be incorrect words, spelling or punctuation that were not noted when reviewing the office note prior to saving. Follow Up 3 Months (with PFM) 11/04/18 (copy of [facility] labs) Coding Level of Care Code Off vis,est,level 4 Diagnoses Atrial fibrillation I48.91 History of cardiac radiofrequency ablation (RFA) Z98.890 A utomatic implantable cardiac defibrillator in situ Z95.810 Coronary artery disease involving coronary bypass graft of [place] heart, angina presence unspecified I25.10 Postsurgical aortocoronary bypass s tatus Z95.1 Cardiomyopathy, ischemic I25.5 Paroxysmal ventricular tachycardia I47.2 Hyperlipidemia, unspecified hyperlipidemia type E78.5 Hyperlipidemia type: unspecified Hypertension, unspecified type I10 Hypertension type: unspecified Coding Level of Care Code Off vis,est,level 4 Diagnoses Atrial fibrillation I48.91 History of cardiac radiofrequency ablation (RFA) Z98.890 Automatic implantable ca rdiac defibrillator in situ Z95.810 Coronary artery disease involving coronary bypass graft of [place] heart, angina presence unspecified I25.10 Postsurgical aortocoronary bypass status Z95.1 Cardiomyopa thy, ischemic I25.5 Paroxysmal ventricular tachycardia I47.2 Hyperlipidemia, unspecified hyperlipidemia type E78.5 Hyperlipidemia type: unspecified Hypertension, unspecified type I10 Hypertension type: unspecified Supplemental Info Supplemental Information Labs LDL Cholesterol 49 mg/dL (0-130) 08/26/18 HDL Cholesterol 75 mg/dL (40-) 08/26/18 Triglycerides 102 mg/dL (-199) 08/26/18 VLDL Cholesterol 2 0 mg/dL (5-40) 08/26/18 Diagnostics Electrocardiogram 11/04/18 Echocardiogram 01/18/18 Stress Test Nuclear Medicine 09/02/13 Pacemaker Check 08/14/18 Chest X- Ray 10/16/18 11/04/18 1744 <Elect ronically signed by Amando Hu MD> Date Amando Hu MD Cosigner Signature: Date (if applicable) CC: Anabella Núeñz MD 04-Nov-2018 12 Lead EKG performed [place] [facility] [place] Result: Comments: See Note; NOTES: [facility] [address] [place] [address] 12 Lead EKG performed by [facility] [place] 11/04/18 1605 MR#: [id number] Acct: [id number] Name: MAYRA GHOSH Екатерина Rep #: [id number] : 1940 78 From: Amando Hu MD Attending Dr: Amando Hu MD Status: DEP [facility] Ordering Dr: Amando Hu MD Date: 11/04/18 [place] [facility] [place] C Admitted: O RDER #: [id number] [facility] [place]12 Lead EKG performed by [facility] [place] ECG Report Interpretation Somatic / motion artifactElectronic ventricular pacemakerPacemaker ECG, No further analysis Electro nically signed on 11/04/2018 at 17:50 by Amando Hu Software Version [id number] 11/04/18 1755 Date Amando Hu MD CC: Anabella Núñez MD Da te Dictated: 11/04/18 1605 Date Transcribed: 11/04/181604 Sprinkler Installer: PM Signed 16-Oct-2018 Emergency Department Summary Result: Comments: See Note; NOTES: [facility] Medical Records Department [address] [place] [address] Emergency Department Summary 10/16/18 1348 MR#: [id number] Acct: [id number] Name: MAYRA GHOSH Rep #: [id number] : 1940 78 From: Darrel Bean MD PCP: Anabella Núñez MD Status: REG ER - ER Visit Summary Date of Service: 10/16/18 Chief Complaint: Cough and generalized weakn ess. History of Present Illness: The patient is a [address] of cardiomyopathy, V. tach, defibrillator, noncemented diabetes, renal insufficiency, CAD with prior double bypass. Recent ablation at [facility]. Prior intracranial bleed with surgical drainage. Patient was recently hospitalized for abnormal heart rhythm. This was ablated. States had a cough over at least 2 weeks. Worsening shortness of b reath. Denies fever. Yellowish sputum. No hemoptysis. No significant chest pain. Physical Examination: Older male vital signs are stable. Afebrile. Does not look septic or toxic. H EENT exam unremarkab le. Abdomen dry mucous membranes. Neck nontender. No lymphadenopathy. Lungs expiratory wheezing throughout worse in the bases. Cough. Heart paced rhythm at 80. Abdomen soft nontender. Normal bowel sound s no peritoneal signs. Moving all 4 extremities. Calves nontender without edema or cords. Neurologically motor deficits. Test Results: CBC normal white count of 9. Hemoglobin 14. Electrolytes sodium 13 0. BUN and creatinine 42 and 2.36 consistent with dehydration and worsening renal insufficiency. Troponin normal. EKG is paced rhythm. Portable 1 view chest x- ray shows no acute process. Prior sternotom y. Left-sided defibrillator pacemaker. No obvious pneumonia. Read both by myself and the radiologist. Emergency Department Course and Treatment: Treated with both DuoNeb and albuterol aerosols. A liter of normal saline. Repeat exams patient is doing better. His had significant concern he was discharged twice from [facility] and had to be readmitted. She is is concerned about his overall weakness . We did try to walk the patient and he had significant difficulty with his overall weakness. I will speak to the hospitalist about admission. Treatment Plan: [] Disposition: Observation admission Im pression: Acute dyspnea and cough secondary to bronchitis and bronchospasm Mild dehydration renal insufficiency Acute generalized weakness with difficulty walking History of CAD and CABG and cardiomyopa thy History of wsi-cqnruwn-rmcjheazy diabetes History of renal insufficiency This note was generated with J. Hilburn dictation software. It may contain incorrect words, spelling, and punctuation that wer e not noted in review of the chart prior to signing ED Disposition - Plan for ED Patient: Chief Complaint: Shortness of Breath Referrals: Anabella Núñez MD [Primary Care Provider] - What to do if y ou have Problems For any increased pain, shortness of breath, bleeding, nausea or vomiting, chest pain, or any unexpected problems, contact your Primary Care Provider. Call [facility] ) or report to the closest Emergency Room. Call 911 if necessary. 10/16/18 9717 <Electronically signed by Darrel Bean MD> Date Star Bean MD Cosigner Signature (If Indicated): Date CC: Anabella Núñez MD 16-Oct-2018 Chest 1 View (Portable) Result: Comments: See Note; NOTES: [facility] Imaging Services [address] [place] [address] Chest 1 View (Portable) MR#: [id number] Acct: [id number] Name: MIRELAMAYRA Екатерина Rep #: [id number] : 1940 M 78 From: Gene Jayshree BARFIELD PCP: Anabella Núñez MD Status: REG ER Study: Chest 1 View (Portable) Date of Exam: 10/16/18 Exam# [id number] Ordering Dr: Darrel Bean MD STUDY: X-RAY CHES T REASON FOR EXAM: Male, 78 years old. Chest pain TECHNIQUE: Single AP portable view of the chest. COMPARISON: 09/30/2018 FINDINGS: Lungs are hypoinflated. Lungs are clear. There is no demonstrated pleural abnormality. Sternal cerclage wires are present from a prior sternotomy. Mild cardiomegaly. Stable left chest wall pacing device. Normal mediastinum and jessy . Normal visualized pulmonary arteries. Normal visualized aortic arch and descending thoracic aorta. Normal visualized thoracic spine. Normal visualized ribs, clavicles, and shoulders. There is no dem onstrated abnormality of the visualized soft tissue structures of the upper abdomen. RAD/Chest 1 View (Portable) IMPRESSION: Hypoinflated lungs w hich are clear. Electronically Signed: Gene Martell DO at 14:35 EST Tel , Service support , CC: Anabella Núñez MD; Darrel Bean MD Sprinkler Installer: Signed 30-Sep-2018 Chest 1 View (Portable) Result: Comments: See Note; NOTES: [facility] Imaging Services [address] [place] [address] Chest 1 View (Portable) MR#: [id number] Acct: [id number] Name: MAYRA GHOSH Rep #: [id number] : 1940 78 From: Nereyda Barr MD PCP: Anabella Núñez MD Status: REG ER Study: Chest 1 View (Portable) Date of Exam: 09/30/18 Exam# [id number] Ordering Dr: Jennifer Sibley MD STUDY: X-RAY CHEST REASON FOR EXAM: Male, 78 years old. Chest pain and syncope. TECHNIQUE: Single AP portable view of the chest. COMPARISON: January 18, 2018. FINDINGS: Patient has a sternotomy. Left-sided cardiac pacemaker is present. The lungs are expanded. There is no evidence for airspace consolidation, or pneumothorax. There is no demonstrated pleural abnormality. There is moderate cardiac enlargement. Normal mediastinum and jessy. There is prominence of the pulmonary hilar arteries with peripheral pulmonary vascular congestion. There is atherosclerotic calcification o f the aortic arch with tortuosity. There are diffuse degenerative changes of the visualized thoracic spine. Normal visualized ribs, clavicles, and shoulders. There is no demonstrated abnormality of th e visualized soft tissue structures of the upper abdomen. RAD/Chest 1 View (Portable) IMPRESSION: Moderate cardiomegaly and postoperative changes appear unchanged since the previous study. Electronically Signed: Nereyda Barr MD at 8:11 EST , Service support , CC: MD Zelalem palma; Anabella Núñez MD Sprinkler Installer: Signed 22-Sep-2018 History and Physical Exam Result: Comments: See Note; NOTES: [facility] Medical Records Department [address] [place] [address] History and Physical 09/22/18 0602 MR#: [id number] Acct: [id number] Name: JETHRO GHOSH Rep #: [id number] : 1940 78 From: Etta Grey PCP: Anabella Núñez MD Status: REG ER Y Location: ED Problem List (1) Epiploic appendagitis Status: Acute (2) CKD (chronic kidney disease) stage 4, GFR 15-29 ml/min Status: Chronic (3) HLD (hyperlipidemia) Status: Chronic Qualifiers: Hyperlipidemia type: unspecified Qualified Code(s): E78.5 - Hyperlipidemia, unspecified (4) Non-ST eleva tion (NSTEMI) myocardial infarction Status: Chronic (5) CAD (coronary artery disease) Status: Chronic Qualifiers: Coronary Disease-Associated Artery/Lesion type: bypass graft [place] vs. transplanted he art: [place] heart Associated angina: angina presence unspecified Qualified Code(s): I25.810 - Atherosclerosis of coronary artery bypass graft(s) without angina pectoris (6) XOCHITL (obstructive sleep apnea ) Status: Chronic (7) Diabetes mellitus type 2, noninsulin dependent Status: Chronic (8) Atherosclerotic heart disease of [place] coronary artery without angina pectoris Status: Chronic Qualifiers: [place] vs. transplanted heart: [place] heart Qualified Code(s): I25.10 - Atherosclerotic heart disease of [place] coronary artery without angina pectoris Comment: CABG 1988; Reoperation CABG x3 SVG to LAD, S VG to Rt PDA, Radial artery to OM-2 10/08/02; VT ablation @[facility] 01/03/17 C 03/10/2016 (9) Ventricular tachycardia (paroxysmal) Status: Chronic (10) ICD (implantable cardioverter-defibrillator) in plac e Status: Chronic Comment: Implant 12/10/2001 ICD replacement 06/10/2009, 06/05/2014, (11) Systolic CHF, chronic Status: Chronic (12) Cardiomyopathy, ischemic Status: Chronic (13) Subdural hematoma Statu s: Resolved (14) Esophageal reflux Status: Chronic Qualifiers: Esophagitis presence: esophagitis presence not specified Qualified Code(s): K21.9 - Gastro-esophageal reflux disease without esophagitis (15) HLD (hyperlipidemia) Status: Chronic Qualifiers: Hyperlipidemia type: unspecified Qualified Code(s): E78.5 - Hyperlipidemia, unspecified (16) HTN (hypertension) Status: Chronic Qualifiers: Hyperte nsion type: essential hypertension Qualified Code(s): I10 - Essential (primary) hypertension (17) Hypothyroidism Status: Chronic Qualifiers: Hypothyroidism type: unspecified Qualified Code(s): E03.9 - Hypothyroidism, unspecified History of Present Illness Date of Admission: 09/22/18 Chief Complaint: Nausea, Emesis, Abdominal Pain The patient is a 78 y/o M w/ PMHx: CAD s/p CABG, HTN, HLD, PAF/Ventric ular Arrhythmia, Chronic Systolic CHF/Ischemic Cardiomyopathy s/p AICD, Diabetes mellitus type II, XOCHITL who presents to the [facility] ED on 09/22/18 with history of nausea, emesis, inability to tolerate oral i ntake in addition to intermittent abdominal diffuse cramping x 24 hours, noted to be episode in nature, pain 10/10 severe when present. Work-up in the ED included T 96.7, heart rate 84, BP 141/86, respi ratory rate 18, 99% on room air, CBC with WBC 7.6, hemoglobin 12.6, platelets 180 without shift, CMP with sodium 128, chloride 88, BUN/creatinine 28/2.23, glucose 149, lipase 114, CT abdomen pelvis with no acute appendicitis over diverticulitis, 1 cm left lower quadrant epiploic appendagitis, mild fecal stasis, small benign looking adrenal densities. In the ED patient administered normal saline, Zofra n. Past Medical History Past Medical History (Chronic Problems): Chronic Problems (Last Reviewed 08/30/18 @ 13:48 by Ollie Cobos) CKD (chronic kidney disease) stage 4, GFR 15-29 ml/min (Chronic ) HLD (hyperlipidemia) (Chronic) Non-ST elevation (NSTEMI) myocardial infarction (Chronic) Angina pectoris (Chronic) CAD (coronary artery disease) (Chronic) Edema (Chronic) Dyspnea (Chronic) Renal disea se (Chronic) Fatigue (Chronic) XOCHITL (obstructive sleep apnea) (Chronic) Diabetes mellitus type 2, noninsulin dependent (Chronic) Old myocardial infarction (Chronic) Long-term use of high-risk medication (Chronic) Chronic renal failure (Chronic) Cardiac murmur (Chronic) Hypokalemia (Chronic) Atherosclerotic heart disease of [place] coronary artery without angina pectoris (Chronic) CABG 1988; Reoperation CABG x3 SVG to LAD, SVG to Rt PDA, Radial artery to OM-2 10/08/02; VT ablation @[facility] 01/03/17 [facility] 03/10/2016 Ventricular tachycardia (paroxysmal) (Chronic) ICD (implantable cardioverter-defibrillator) in place (Chronic 11/2001) Implant 12/10/2001 ICD replacement 06/10/2009, 06/05/2014, Systolic CHF, chronic (Chronic) Cardiomyopathy, ischemic (Chronic) CKD (chronic kidney disease), stage II (Chronic) Type I I diabetes mellitus, uncontrolled (Chronic) Esophageal reflux (Chronic) HLD (hyperlipidemia) (Chronic) HTN (hypertension) (Chronic) Hypothyroidism (Chronic) Sleep apnea (Chronic) Medical History: [facility] History (Last Reviewed 08/30/18 @ 13:48 by Ollie Cobos) HLD (hyperlipidemia) (Chronic) E78.5 Non-ST elevation (NSTEMI) myocardial infarction (Chronic) I21.4 Angina pectoris (Chronic) I20.9 CAD (coronary artery disease) (Chronic) I25.10 Edema (Chronic) R60.9 Dyspnea (Chronic) R06.00 Renal disease (Chronic) N28.9 Fatigue (Chronic) R53.83 XOCHITL (obstructive sleep apnea) (Chronic) G47.33 Diabetes m ellitus type 2, noninsulin dependent (Chronic) E11.9 Old myocardial infarction (Chronic) I25.2 Long-term use of high-risk medication (Chronic) Z79.899 Chronic renal failure (Chronic) N18.9 Cardiac murmu r (Chronic) R01.1 Hypokalemia (Chronic) E87.6 Atherosclerotic heart disease of [place] coronary artery without angina pectoris (Chronic) I25.10 CABG 1988; Reoperation CABG x3 SVG to LAD, SVG to Rt PDA, R adial artery to OM-2 10/08/02; [facility] ablation @[facility] 01/03/17 [facility] 03/10/2016 Ventricular tachycardia (paroxysmal) (Chronic) I47.2 ICD (implantable cardioverter- defibrillator) in place (Chronic) Onset Date: 0 11/2001 Z95.810 Implant 12/10/2001 ICD replacement 06/10/2009, 06/05/2014, Systolic CHF, chronic (Chronic) I50.22 Cardiomyopathy, ischemic (Chronic) I25.5 Subdural hematoma (Resolved) I62.00 CAD (coronary ar sebastian disease) (Inactive) I25.10 CHF (congestive heart failure) (Inactive) I50.9 Visual hallucination (Inactive) R44.1 Allergies amiodarone Allergy (Verified 09/22/18 04:37) Other meperidine [From Dem kodi] Allergy (Verified 09/22/18 04:37) Low blood pressure spironolactone Allergy (Verified 09/22/18 04:37) Nausea simvastatin Adverse Reaction (Mild, Verified 09/22/18 04:37) Myalgias Home Medication s: Ambulatory Orders Medication Instructions Recorded Nitroglycerin [Nitrostat] 0.4 mg SUBLINGUAL Q5M PRN 06/02/14 Ranolazine [Ranexa] 1,000 mg PO BID 06/02/14 Atorvastatin Calcium [Lipitor] 10 mg PO D AILY 08/20/14 Surgical History: Surgical History (Last Reviewed 08/30/18 @ 13:48 by Ollie Cobos) Aortocoronary bypass status (Resolved) Z95.1 CABG 1988; Reoperation CABG x3 SVG to LAD, SVG to Rt PDA, Radial artery to OM-2 10/08/02; VT ablation @[facility] 01/03/17 H/O prior ablation treatment Onset Date: 01/03/17 Z98.890 VT Ablation @ [facility] History of craniotomy Onset Date: 06/2017 Z98.890 History of herniorrhaphy Z98.890, Z87.19 History of hip replacement Z96.649 RT History of knee surgery Z98.890 Rt S/P CABG (coronary artery bypass graft) (Inactive) Z95.1 Surgical History: cholecystectomy, coron min bypass surgery, - - ICD placement, CABG x 3, Cholecystectomy, RTHR, RTKR, Cardiac ablation, Craniotomy s/p SDH w/ fall. Psychiatric History: Anxiety, Depression Lives: Spouse/ Significant Other Smok ing Status: Former smoker - Quit 1963. Tobacco Use: Non-smoker Alcohol: Rare Drugs: None - *Family History Paternal Family History: Family History (Last Reviewed 08/30/18 @ 13:48 by Ollie Cobos ) Father CAD (coronary artery disease) Hypertension Myocardial infarction CHF (congestive heart failure) Mother CAD (coronary artery disease) Myocardial infarction Hypothyroid High cho lesterol History Items: Diabetes, Heart Disease, Hypertension Maternal Family History: Family History (Last Reviewed 08/30/18 @ 13:48 by Ollie Cobos) Father CAD (coronary artery dise ase) Hypertension Myocardial infarction CHF (congestive heart failure) Mother CAD (coronary artery disease) Myocardial infarction Hypothyroid High cholesterol History Items: High Cholesterol, Heart Disease, Hypertension Review of Systems Constitutional: Reports: Anorexia, Malaise, Weakness, Fatigue. Denies: Chills, Fever, Weight Change HEENT: Denies: Head Aches, Sinus Congestion, Sinus Taryn inage Cardiovascular: Denies: Chest Pain, Palpitations Respiratory: Denies: Cough, Shortness of breath at rest, Sputum production Gastrointestinal: Reports: Abdominal Pain, Nausea, Vomiting Genitourinar y: Denies: Dysuria Musculoskeletal: Denies: Joint Pain, Joint Tenderness Skin: Denies: Rash, Wounds Neurological: Denies: Numbness, Tingling, Focal weakness Psychiatric: Reports: Anxiety, Depression. De nies: Homicidal Ideations, Suicidal Ideations Hematologic/ Lymphatic: Reports: Anemia, Easy Bruising, Easy Bleeding VTE Information - Inpt Only VTE Present on Admission: No VTE Mechan Device Prophylaxi s: SCD's VTE Pharm Prophylaxis ordered?: Yes Patient Problems: Active and Suspected Problems (Last Reviewed 08/30/18 @ 13:48 by Ollie Cobos) Epiploic appendagitis (Acute) Subjective: Physical E xamination: General: awake, alert, oriented x 3 and cooperative, seated upright in the ED bed in no apparent distress, notes stomach pain currently subsided. Skin: normal color, turgor, no icterus, cyan osis. HEENT: AT/NC, EOMI, PERRLA, moderately dry MM, no carotid bruits or JVD noted. Lungs: CTA bilaterally, moderate effort, mild decrease BL bases, no rales, ronchi or wheezing. Heart: Regular rate an d rhythm (paced); no gallop, rub audible. Abdomen: soft, NTTP, ND, moderately hyperactive BS, no HSM. Extremities: no cyanosis, clubbing, or edema. Neurological: patient awake, alert, oriented x 3; cogn itive function intact; pupils equally reactive to light and accomodation; cranial nerves II-XII grossly normal, moving all 4 extremities, no focal deficits, strength severely globally decreased. Psychia tric: affect appears fatigued, flat, no acute evidence of depressive or anxiety feelings. - Physical Exam Vital Signs Temp Pulse Resp BP Pulse Ox 96.7 F L 84 18 141/86 H 99 09/22/18 04:35 09/22/18 04: 35 09/22/18 04:35 09/22/18 04:35 09/22/18 04:35 Weight: 185 lb 10.067 oz Body Mass Index (BMI) 29.0 Finger Stick Blood Glucose 249 Laboratory Tests Past 24 Hrs WBC 7.6 RBC 3.72 L Hgb 12.6 L Hct 35. 8 L MCV 96.2 H MCH 33.9 H Assessment/Plan All Active Problems (Last Reviewed 08/30/18 @ 13:48 by Ollie Cobos) Epiploic appendagitis (Acute) Aortocoronary bypass status (Resolved) Subdural hemat colleen (Resolved) The patient is a 78 y/o M w/ PMHx: CAD s/p CABG, HTN, HLD, PAF/Ventricular Arrhythmia, Chronic Systolic CHF/Ischemic Cardiomyopathy s/p AICD, Diabetes mellitus type II, XOCHITL who present s to the [facility] ED on 09/22/18 with history of nausea, emesis, inability to tolerate oral intake in addition to intermittent abdominal diffuse cramping x 24 hours, noted to be episode in nature, pain 10/10 severe when present. (1) Acute Abdominal Pain, Nausea, Emesis secondary to epiploic appendagitis: ED included T 96.7, heart rate 84, BP 141/86, respiratory rate 18, 99% on room air, CBC with WBC 7.6, hemoglobin 12.6, platelets 180 without shift, CMP with sodium 128, chloride 88, BUN/creatinine 28/2.23, glucose 149, lipase 114, CT abdomen pelvis with no acute appendicitis over diverticulitis, 1 cm le ft lower quadrant epiploic appendagitis, mild fecal stasis, small benign looking adrenal densities. Will admit to MS, maintain on IVFs, allow clears and ADAT to ADA if improving, nausea and pain regimen PRN. (2) Hyponatremia, Suspected Hypovolemic, Acute on Chronic: Suspect acute on chronic given recent GI losses. Admission Na 128, baseline 130-135, gently hydrate given CHF history, temporarily hold nephrotoxic regimen, repeat BMP in AM. (3) History of SDH: Prior history of fall with intracranial hemorrhage 06/2017 with keppra seizure prophylaxis. (4) CAD: s/p CABG x 3 2001 [facility], SVG to the LAD; SV G to the PDA; radial artery to OM. Maintain on home regimen asa, plavix, statin, BB, imdur. (5) Hypertension: Maintain on home regimen coreg, imdur, holding metalozone temporarily, PRN hydralazine. (6 ) Hypothyroidism: Maintain on home synthroid regimen. (7) PAF/Ventricular Tachycardia/Arrhythmia: Maintain on home regimen BB, mexiletine, dofetilide. (8) Chronic Systolic CHF, Ischemic Cardiomyopathy : s/p AICD. Maintain on home regimen coreg, statin, ranexa, not on ACEI/ARB secondary to renal disease, noted spironolactone allergy, holding meolazone and bumex temporarily as noted. 01/18/18 MAGDALENA w/ sev erely dilated LV, EF 30%, moderate severe segmental systolic dysfunction, transmitral diastolic flow velocities suggestive of moderate stage II diastolic dysfunction. (9) CKD stage IV: Admission BUN/Cr 28/2.23, baseline Cr 1.7-2, near baseline but has steadily been increasing, gently hydrating as noted, repeat BMP in AM. (10) GERD: PPI. (11) Diabetes mellitus type II: Hold oral regimen, clears and ADAT to ADA diet, ISS, accu checks. (12) XOCHITL: CPAP qHS if tolerated recommended. (13) AOCD: Admission Hgb 12.6, baseline 12, stable, repeat CBC in AM. (13) DVT Prophylaxis: SCDs, heparin. Code Visit OBSV E AND M: [id number] Initial observation care L3 09/22/18 0634 <Electronically signed by Etta Grey > Date Etta Grey Cosign er Signature: Date (if applicable) CC: Etta Grey; Anabella Núñez MD Signed 22-Sep-2018 Emergency Department Summary Result: Comments: See Note; NOTES: [facility] Medical Records Department [address] [place] [address] Emergency Department Summary 09/22/18 0619 MR#: [id number] Acct: [id number] Name: MAYRA GHOSH Rep #: [id number] : 1940 78 From: Juan C Winston MD PCP: Anabella Núñez MD Status: REG ER - ER Visit Summary Date of Service: 09/22/18 Chief Complaint: Abdominal pain nausea and v omiting. History of Present Illness: The patient is a 78 M who presents with abdominal pain nausea and vomiting. He initially developed abdominal pain about 12 hours ago. He states it was severe in all across the upper abdomen. He is unable to describe the character of the pain. Currently however his pain is resolved and he is pain-free. He also had nausea and vomiting last night. Had about 8 episode s. His last episode was about 8:30 PM last night. His last bowel movement was 1-1/2 days ago but he continues to have flatus. This morning he was more weak than usual and he was really unable on his own so EMS was called. No fevers. No chest pain or shortness of breath. Physical Examination: Afebrile vitals are unremarkable Moist mucous membranes Heart regular rate and rhythm Lungs are clear Abdomen soft nontender nondistended Alert Test Results: EKG shows an AV paced rhythm at 60. Labs notable for hemoglobin 12.6, BUN 28, creatinine 2.23. Hepatic function unremarkable and lipase normal. CT of the abdomen and pelvis shows epiploic appendagitis. Emergency Department Course and Treatment: Patient was pain-free at the time of my evaluation. Labs are consistent with a component of dehydration. He w as treated here with IV fluids and Zofran. Given comorbidities and dehydration patient was discussed with hospitalist and admitted for observation and symptomatic control. Treatment Plan: [] Dispositi on: Admit Impression: Epiploic appendagitis This note was generated with J. Hilburn dictation software. It may contain incorrect words, spelling, and punctuation that were not noted in review of the [facility] rt prior to signing ED Disposition - Plan for ED Patient: Chief Complaint: Nausea/Vomiting Referrals: Anabella Núñez MD [Primary Care Provider] - What to do if you have Problems For any increased pain, shortness of breath, bleeding, nausea or vomiting, chest pain, or any unexpected problems, contact your Primary Care Provider. Call [facility] ([phone]) or report to the closest Emergen cy Room. Call 911 if necessary. 09/22/18 0621 <Electronically signed by Juan C Winston MD> Date Juan C Bethigner Signpauletteur e (If Indicated): Date CC: Anabella Núñez MD 22-Sep-2018 Abdomen/Pelvis without Cont Result: Comments: See Note; NOTES: [facility] Imaging Services [address] [place] [address] Abdomen/Pelvis without Cont MR#: [id number] Acct: [id number] Name: MAYRA GHOSH Rep #: [id number] : 1940 M 78 From: [place] Coronel MD PCP: Anabella Núñez MD Status: REG ER Study: Abdomen/Pelvis without Cont Date of Exam: 09/22/18 Exam# [id number] Ordering Dr: Juan C Winston MD STUDY: CT ABDOMEN AND PELVIS WITHOUT CONTRAST REASON FOR EXAM: Male, 78 years old. Nausea vomiting and abdominal pain RADIATION DOSAGE (If Supplied By Facility): CTDIvol = ( 20.43 ) mGy, DLP = ( 102 3.52 ) mGycm TECHNIQUE: Transaxial images were obtained from the dome of the diaphragm to the symphysis pubis without oral contrast, and without intravenous contrast. Sagittal and coronal images were r econstructed. Individualized dose optimization techniques were used for this CT. COMPARISON: None. FINDINGS: The lung bases are clear. The liver is normal. No dil ated intrahepatic biliary radicles. Previous cholecystectomy The spleen is normal. The pancreas is normal. There is a 1.8 cm right adrenal nodule and a curvilinear 2.9 x 1.4 cm density attached to the left adrenal. The kidneys are normal with no masses, calculi or hydronephrosis The stomach is normal. There is no bowel distention, acute appendicitis or diverticulitis. No constricting lesions are se en in large bowel. There is a mild degree of fecal stasis. The abdominal wall is intact with no hernias. There is no ascites or any free intraperitoneal air. There is a 1.0 cm area of epiploic appendag itis in the left lower quadrant. The aorta and iliac vessels are heavily calcified moreno. There is no retrocrural, retroperitoneal or mesenteric adenopathy. A a total right hip replacement The urina ry bladder is normal. The prostate is normal--. There is no inguinal or pelvic adenopathy. There is no inguinal hernia. . CT/Abdomen/Pelvis with out Cont IMPRESSION: No acute appendicitis or diverticulitis.. A 1 cm left lower quadrant epiploic appendagitis. Mild fecal stasis. 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 [address] [place] [address] OFFICE VISIT Date of Service: 08/30/18 MR#: [id number] Acct: [id number] Name: MAYRA GHOSH Re p #: [id number] : 1940 Provider: Amando Hu MD Age/Sex: 78/M Location[place] [facility] [place] Status: Signed HPI HPI Details: MAYRA GHOSH, is a 78 M who presents to the office today for outpatient cardiova scular follow-up. Overall he states he is doing reasonably well. He does note that he has some evidence of chronic shortness of breath with exertion and fatigue. He has not been complaining of acute ort hopnea or PND. He has had peripheral edema in the past. He notes based on his medications and his support stockings this appears to be under good control at the moment. On examination, with his support stockings, he does not appear to have any significant lower extremity edema at this time. He has not complained of palpitations or rapid rates. There has been no ICD discharge since his most recent IC D interrogation. There has been no issues with ongoing chest discomfort. He has not had use nitroglycerin sublingual. He states he had laboratory work performed recently for 2 different physicians. He believes a BMP was performed. He had an ECG in the office today. He is in an underlying electronic ventricular paced rhythm. His QT and QTC intervals appear to be within normal ranges. Intake Vital Signs08/30/18 Height 5 ft 7 in 08/30/18 Weight: 187 lb 08/30/18 Body Mass Index (BMI) 29.2 08/30/18 Blood Pressure 122/70 H Intake Visit Reasons: f/up (pt r/s from -) Allergies amiodarone Allergy (Verified 08/30/18 13:42) Other meperidine [From Demerol] Allergy (Verified 08/30/18 13:42) Low blood pressure spironolactone Allergy (Verified 08/30/18 13:42) Nausea simvastatin Adverse Reaction (Mild, Verified 08/30/18 13:42) Myalgias Medications Nitroglycerin [Nitrostat] 0.4 mg SUBLINGUAL Q5M PRN 06/02/14 [History Confirmed 08/30/18] Ranolazine [Ranexa] 1,000 mg PO BID 06/02/14 [History Confirme d 08/30/18] Atorvastatin Calcium [Lipitor] 10 mg PO DAILY 08/20/14 [History Confirmed 08/30/18] Dofetilide 250 mcg PO BID 03/14/17 [History Confirmed 08/30/18] Magnesium Oxide [Magnesium] 400 mg PO NELL Y 07/28/17 [History Confirmed 08/30/18] aspirin 81 mg tablet,delayed release 81 mg PO DAILY 11/12/17 [History Confirmed 08/30/18] bumetanide 1 mg tablet 1 mg PO BID 11/12/17 [History Confirmed 08/30/18] levothyroxine 100 mcg tablet 100 mcg PO DAILY tab 11/12/17 [History Confirmed 08/30/18] carvedilol 12.5 mg tablet 18.75 mg PO BID tab 11/14/17 [History Confirmed 08/30/18] clopidogrel 75 mg tablet 75 m g PO DAILY 11/14/17 [History Confirmed 08/30/18] Sitagliptin Phosphate [Januvia] 50 mg PO DAILY 01/18/18 [History Confirmed 08/30/18] lactobacillus combination no.8 3 billion cell capsule 3,000 mmu cell s PO QDAY 02/22/18 [History Confirmed 08/30/18] clonazepam 1 mg tablet 1 mg PO BID PRN 08/30/18 [History Confirmed 08/30/18] isosorbide mononitrate ER 30 mg tablet,extended release 24 hr 30 mg PO DAILY 08/30/18 [History Confirmed 08/30/18] levetiracetam 1,000 mg tablet 500 mg PO BID tab 08/30/18 [History Confirmed 08/30/18] metolazone 2.5 mg tablet 2.5 mg PO .COMPLEX tab 08/30/18 [History Confirmed ] mexiletine 150 mg capsule 150 mg PO TID cap 08/30/18 [History Confirmed 08/30/18] potassium chloride ER 20 mEq tablet,extended release(part/cryst) 20 meq PO .3xweek tab 08/30/18 [History Confirm ed 08/30/18] ropinirole 1 mg tablet 2 mg PO .COMPLEX tab 08/30/18 [History Confirmed 08/30/18] [facility] Medical History HLD (hyperlipidemia) (Chronic) Non -ST elevation (NSTEMI) myocardial infarction (Chronic) Angina pectoris (Chronic) CAD (coronary artery disease) (Chronic) Edema (Chronic) Dyspnea (Chronic) Renal disease (Chronic) Fatigue (Chronic) XOCHITL ( obstructive sleep apnea) (Chronic) Diabetes mellitus type 2, noninsulin dependent (Chronic) Old myocardial infarction (Chronic) Long-term use of high-risk medication (Chronic) Chronic renal failure (Chr onic) Cardiac murmur (Chronic) Hypokalemia (Chronic) Atherosclerotic heart disease of [place] coronary artery without angina pectoris (Chronic) Ventricular tachycardia (paroxysmal) (Chronic) ICD (implant able cardioverter-defibrillator) in place (Chronic 11/2001) Systolic CHF, chronic (Chronic) Cardiomyopathy, ischemic (Chronic) Subdural hematoma (Resolved) CAD (coronary artery disease) (Inactive) CHF (congestive heart failure) (Inactive) Visual hallucination (Inactive) Surgical History Aortocoronary bypass status (Resolved) H/O prior ablation treatm ent (Resolved 01/03/17) History of craniotomy (Resolved 06/2017) History of herniorrhaphy (Resolved) History of hip replacement (Resolved) History of knee surgery (Resolved) S/P CABG (coronary artery bypass graft) (Inactive) Family History Father , age 91 of CHF CAD (coronary artery disease) Hypertension Myocardial infarction CHF (conges tive heart failure) Mother , age 68 CAD (coronary artery disease) Myocardial infarction Hypothyroid High cholesterol Social History Smoking Status: Former smoker how long ago did patient quit smokin alcohol intake: current substance use type: does not use diet: diabetic caffeine: Yes seatbelt use: always ROS Const Const: Positive for fatigue (increased); negative for weakness , weight gain, weight loss, frequent falls or excessive sweating Eyes Eyes: Negative for change in vision, blurry vision or transient loss of vision ENT ENT: Positive for balance problems (unsteady with ambulation); negative for dizziness Cardio Chest Pain: No Palpitations: No Edema: None (wears compression socks) Muscle aches with walking: None Resp Respiratory: Positive for SOB with activity (increa sed; and when Im outside in the cold air); negative for SOB at rest GI GI: Negative vomiting or vomiting blood/hematemesis : Negative for hematuria Musc Musc: Positive for balanc e problems (unsteady with ambulation) and muscle weakness (i've lost alot of strength"); negative for muscle aches/ myalgia or joint pain Skin Skin: Negative non-healing lesions or rash Neuro Neuro: Negative for weakness, blurry vision, lightheadedness, frequent falls, orthostatic symptoms or dizziness Prosper Hematologic/Lymphatic: Negative for easy bleeding Endo Endo: Positive for fati mariella (increased); negative for excessive sweating Psych Psych: Negative for anxiety or depression Allergy Allergy/Immunology: Negative for hives, Negative for rash Cardiology Exam Const Appearance: 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 coordinator 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, healthy appearing, comfortable, no acute distress, well developed and well groomed Nutritional Appearance: overweight Orientation: alert, awake and oriented x3 Head Head: normal to inspection, normocephalic and atraumatic Ears: hearing grossly normal bilaterally Nose: external nose normal Mouth: oral mucosae normal Teeth and gingiva: fair dentition Eyes General: appearance normal, both eyes and all related structures Eyelids: eyelids normal Conjunctivae: conjunctivae normal Pupils: PERRL EOM: EOM intact bilaterally Neck Neck: normal visual inspection and full ROM Carotids: normal carotid u pstroke Chest Chest inspection: normal inspection of the chest, symmetric chest movement and Pacemaker/ICD Auscultation: Bilateral: Clear to Auscultation Cardio Palpation: normal PMI Rate: regular rate Rhythm: regular rhythm Heart sounds: S1 normal and S2 normal Murmur: Grade 2/6, mid systolic, LLSB, LVOT, apex and high pitched GI GI: normal to inspection, soft, no hepatosplenomegaly and bowel sounds present Neuro General: alert, awake, oriented x3 and other (walks with a cane) Skin Skin: no rashes or lesions noted Extremities Pulses: Normal: Right Radial Pulse, Left Radial Pulse Lower Extremity Shiv ma: Trace: Bilateral (Wearing bilateral support) wearing bilateral support stockings Psych Psychological: normal affect Supplemental Info Transthoracic echocardiogram: 03/15/2017 Interpretation Summar y The study was technically difficult. Contrast injection was [id number]. Mildly dilated left ventricle. Moderately severe segmental systolic dysfunction (see wall motion). The estimated ejection fractio n is3 5 %. The left atrium is moderately enlarged. The right atrium is mildly enlarged. There is mild mitral annular calcification. Moderate (2+) mitral valve insufficiency. Trivial tricuspid valve insu fficiency. Mild focal aortic valve calcification. 8ubble contrast study negative for right to left interatrial shunt. Right ventricular systolic pressure estimated to be 33 mmHg. Transrmitral diastolic flow velocities suggest diastolic dysfunction (pseudonormal pattern). lCD or pacer leads identified within the right atrium lCD or pacer leads identified within the right ventricle. Transthoracic echoc ardiogram: 01/18/2018 Interpretation Summary Severely dilated left ventricle. The estimated ejection fraction is 30 %. Moderately severe segmental systolic dysfunction (see wall motion). Transmitral di astolic flow velocities suggest moderate (stage 2) diastolic dysfunction (pseudonormal pattern). Contrast injection was performed. Compared to prior study, there is no significant change. Stress test: 09/02/2013 The patient underwent pharmacologic (Regadenoson) evaluation with a peak heart rate of 83 beats per minute (56% predicted maximal heart rate) and a peak blood pressure of 116/66 mmHg. The [facility] ECG demonstrated normal sinus rhythm with a left bundle branch block pattern. The peak pharmacologic ECG continued with a left bundle branch block patter. There was a rare PVC in recovery. The pat ient had no complaint of chest discomfort during pharmacologic infusion or recovery. The examination was discontinued secondary to completion of protocol. IMPRESSION: 1. Pharmacologic (Regadenoson) joshua luation. 2 Peak pharmacologic ECG considered indeterminant secondary to underlying left bundle branch block pattern. 3. Rare PVC during recovery. 4. Nuclear images pending. MYOCARDIAL PERFUSION IMAGING STUDY TECHNIQUE: The patient was injected with 11.2 mCi of Technetium-99m Cardiolite. Subsequently rest SPECT cardiac nuclear imaging was obtained in the horizontal long, vertical long and short axis views. The patient underwent pharmacologic (Regadenoson) evaluation with a peak heart rate of 83 beats per minute (56% predicted maximal heart rate) and a peak blood pressure of 116/66 mmHg. The patient was injected with 36.0 mCi of Technetium-99m Cardiolite and subsequently stress SPECT cardiac nuclear imaging was obtained in the horizontal long, vertical long and short axis views. A gated Cardiolite study at peak stress was obtained. INTERPRETATION: Rest and stress SPECT cardiac nuclear imaging demonstrate areas of diminished to absence of myocardial perfusion/tracer uptake in portions of the bas al anteroseptal, basal anterior, basal anterolateral segments extending to the mid anterior and anterolateral segments and the distal lateral/lateral apical segments as well as an area of diminished to absence of tracer uptake in the basal inferolateral segments extending to the mid inferolateral segments. The aforementioned changes appear to be similar at rest and stress with respect to the basal tow lakisha mid inferolateral segments, however, more prominent follovvThg stress as opposed to rest in the basal anteroseptal, basal anterior, basal anterolateral segments extending into the mid anterior and a nterolateral segments as well as the distal lateral and lateral apical segments. There are similar -type changes on the resting and stress polar map images. There is notation of diminished to absence of end-systolic thickening and brightening in portions of the basal anteroseptal, basal anterior, basal anterolateral segments as well as the mid anterior and anterolateral segments and the basal inferola teral segments. The gated Cardiolite study demonstrates diminished myocardial thickening and inward wall motion in portions of the mid anterior segments as well as the basal inferolateral segments. The reported LVEF is 26%, The aforementioned iThdings appear compatible with concerns of previous myocardial injury/infarction involving portions of the basal toward mid inferolateral segments as well as st ress-induced myocardial ischemia involving portions of the basal anteroseptal, basal anterior, basal anterolateral segments extending into the mid anterior and anterolateral segments as well as the dist al lateral and lateral apical segments. IMPRESSION: 1. Rest and stress SPECT cardiac nuclear imaging demonstrate myocardial perfusion changes compatible with previous myocardial injury/infarction invol ving portions of the basal toward mid inferolateral segments and being suggestive of stress-induced myocardial ischemia involving portions of the basal anteroseptal, basal anterior, basal anterolateral segments extending into the mid anterior and anterolateral segments as well as the distal lateral and lateral apical segments. 2. The gated Cardiolite study reports an LVEF of 26%. Cardiac cath: 016: [place], [place] II. SELECTIVE CORONARY ANGIOGRAPHY: A. The left main is severely diseased with a proximal 80% narrowing followed by a total occlusion. B. The left anter ior descending fills via a saphenous vein graft, which appears widely patent with only minimal luminal irregularity. The left anterior descending distal to the insertion point has only minimal luminal i rregularity. Faint collaterals are seen from the left anterior descending filling a very small caliber circumflex marginal vessel. C. The circumflex system is not visualized on [place] left coronary inj ection, but rather faint bridging collaterals from the distal left anterior descending as well as from the distal right coronary is seen to fill a portion of the circumflex. This appears to be small in caliber. D. The right coronary artery is totally occluded in the proximal portion. The saphenous vein graft to the right posterior descending branch is widely patent. Flow is seen both proximal and di stal to the insertion point. The visualized portion of the posterior descending as well as an additional posterolateral branch have only minimal luminal irregularity. III. LEFT VENTRICULAR ANGIOGRAPHY: The left ventricle is mildly enlarged. There is severe hypokinesis of the basal and mid anterior wall as well as the basal and mid inferior wall. The apex is moderately hypokinetic. The overall ejectio n fraction is reduced at 30%. CAB10/08/2002: [facility] Reoperation: Coronary artery bypass x3: SVG to the LAD; SVG to the PDA; radial artery to OM Electrophysiology study: 01/03/2017 Conclusion EPS via R FV and RFA for PMVT Normal SA AV and HV Inducible into AT. Mapped RA and LA with pacing in RA and LA, but not reproducible induction so did not pursue ablation Completed retrograde aortic approach to LV and completed scar map/3D map - very little scar present endocardially. He had recurrent PVC that was RB/IA and was successfully ablated Completed programmed stimulation of ventricle and inducible into sustained but tolerated and self-terminating VT with also RB/IA and quite broad QRS morphology (in the absence of AAD) and is suspicious for epicardial source (broad and multiple morphologies) PLAN - the likelihood for successful epicardial ablation (if indeed the VT is epicardial) is low since access will be limited due to prior sternotomy and CABG - will consider if AAD fails - pt had side effects of amiodarone related to hyperthyroid. 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 CAD in [place] artery I25.10 Plan At the present time he appears without symptoms of ongoing acute coronary syndrome. He will continue risk factor evaluation and care. 2. Postsurgical aortocoronary bypass status Z95.1 CABG 1988; Reoperation CABG x3 SVG to LAD, SVG to Rt PDA, Radial artery to OM-2 10/08/02; VT ablation @[facility] 01/03/17 Plan He has had 2 open heart surgery procedures. He is undergone diagnostic cardiac catheteriza tion as noted above. He has not required additional revascularization therapy. He will continue medical management 3. Cardiomyopathy, ischemic I25.5 Plan He has an underlying ischemic mediated cardiomy opathy with diminished LVEF. He has been on medical therapy, has undergone revascularization, has undergone electrophysiologic evaluation and care including ICD placement. 4. Chronic systolic CHF (bing estive heart failure) I50.22 Plan He has chronic systolic mediated CHF. At the moment he appears to be without any acute symptoms. Thus he will continue his current medical management. 5. Paroxysmal ve ntricular tachycardia I47.2 Plan He does have underlying ventricular ectopy. 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 He appears to be tolerating the medications well. A copy o f his recent BMP would be appreciated to monitor his renal function noting he is on dofetilide therapy. Orders Orders: 6. Automatic implantable cardiac defibrillator in situ Z95.810 Implant 12/10/2001 I CD replacement 06/10/2009, 06/05/2014, Plan His ICD has been interrogated. His been functioning appropriately. He will be followed. 7. Hyperlipidemia, unspecified hyperlipidemia type E78.5 Plan His lipid labs have been reviewed. His labs from 08/26/2018 demonstrated cholesterol 144 with an LDL of 49 and an HDL of 75 and a triglyceride level of 102. His AST and ALT were within normal ranges. He will co ntinue medical management and follow-up. 8. Essential hypertension I10 Plan His blood pressure appears to be within normal range at this time. He will continue his medical therapy 9. Dyspnea R06.00 Pl an He does have chronic dyspnea as well as fatigue. This may be related to his cardiovascular issues with respect to diminished LV systolic function/LVEF. However at the moment he appears to be without acute symptoms or adverse events. Thus he will continue his current medical management and follow-up. 10. Localized edema R60.0 Plan His edema appears to be under reasonably good control at this time w ith his diuretic therapy and his support stockings. Plan Detail Additional Comments Thank you for allowing me to participate in the care of your patient. Please don't hesitate to call if any issues amy se. This note was generated using a voice recognition system and there may be incorrect words, spelling or punctuation that were not noted when reviewing the office note prior to saving. Follow Up 6 Mo nths (PF) 08/30/18 (Copy of BMP from PCP and Nephrology) Coding Level of Care Code Off vis,est,level 4 Diagnoses CAD in [place] artery I25.10 Postsurgical aortocoronary bypass status Z95.1 Cardiomyop athy, ischemic I25.5 Chronic systolic CHF (congestive heart failure) I50.22 Paroxysmal ventricular tachycardia I47.2 Automatic implantable cardiac defibrillator in situ Z95.810 Hyperlipidemia, unspecifi ed hyperlipidemia type E78.5 Hyperlipidemia type: unspecified Essential hypertension I10 Hypertension type: essential hypertension Dyspnea R06.00 Localized edema R60.0 Edema type: localized Coding Lev el of Care Code Off vis,est,level 4 Diagnoses CAD in [place] artery I25.10 Postsurgical aortocoronary bypass status Z95.1 Cardiomyopathy, ischemic I25.5 Chronic systolic CHF (congestive heart failure) I 50.22 Paroxysmal ventricular tachycardia I47.2 Automatic implantable cardiac defibrillator in situ Z95.810 Hyperlipidemia, unspecified hyperlipidemia type E78.5 Hyperlipidemia type: unspecified Essentia l hypertension I10 Hypertension type: essential hypertension Dyspnea R06.00 Localized edema R60.0 Edema type: localized 08/30/18 1513 <Electronically signed by Amando Hu MD> Date Amando Hu MD Cosigner Signature: Date (if applicable) CC: Anabella Núñez MD; Alpesh Murcia M.D. 30-Aug-2018 12 Lead EKG performed [place] [facility] [place] Result: Comments: See Note; NOTES: [facility] [address] [place] [address] 12 Lead EKG performed by [facility] [place] 08/30/18 1425 MR#: [id number] Acct: [id number] Name: MAYAR GHOSH Rep #: [id number] : 1940 78 From: Amando Hu MD Attending Dr: Amando Hu MD Status: DEP AMB Ordering Dr: Amando Hu MD Date: 08/30/18 [place] [facility] [place] M C Admitted: O RDER #: [id number] [facility] [place]12 Lead EKG performed by [facility] [place] ECG Report Interpretation Electronic ventricular pacemaker Pacemaker ECG, No further analysis Electronically signed on 2017 at 15:23 by Amando Hu Software Version [id number] 08/30/18 1524 Date Amando Hu MD CC: Anabella Núñez MD Date Dictated: 08/30/18 Date Transcribed: 08/30/181424 Sprinkler Installer: PM Signed 14-Aug-2018 Pacemaker Check Result: Comments: See Note; NOTES: [facility] [address] [place] [address] Pacemaker Check Date of Service: 08/14/18 162 MR#: [id number] Acct: [id number] Name: CLARE GHOSH W Rep #: [id number] : 1940 From: Kristie Perry Age/Sex: 78/M Location[place] [facility] [place] Status: Signed Billing Codes ICD Device Billing: ICD Dev Interrogate (Rmt) 08/14/18 1623 <Electroni jacque signed by Kristie Perry > Date Kristie Perry 08/14/18 164<Electronically signed by Amando Hu MD> Wei Rodney e: Date (if applicable) Amando Hu MD CC: 30-Jul-2018 Pacemaker Check Result: Comments: See Note; NOTES: [facility] [address] [place] [address] Pacemaker Check Date of Service: 07/30/18 0949 MR#: [id number] Acct: [id number] Name: CLARE GHOSH W Rep #: [id number] : 1940 From: Kristie Perry Age/Sex: 78/M Location: [facility] Status: Signed Billing Codes ICD Device Billing: ICD Dev Interrogate (Rmt) 07/30/18 0951 <Electroni jacque signed by Kristie Perry > Date Kristie Perry 07/30/18 1047<Electronically signed by Amando Hu MD> Wei Signsanaz e: Date (if applicable) Amando Hu MD CC: 07-May-2018 Pacemaker Check Result: Comments: See Note; NOTES: [facility] [address] [place] [address] [address] [place] [address] Pacemaker Check Date of Service: 05/07/181649 MR#: [id number] Acct: [id number] Name: CLARE GHOSH Rep #: [id number] : 1940 From: Kristie Perry Age/Sex: 78/M Location: [facility] Status: Signed Billing Codes ICD Device Billing: ICD Dev Interrogate ([facility]) 05/07/18 1654 <Electroni jacque signed by Kristie Perry > Date Kristie Perry 05/07/18 175<Electronically signed by Amando Hu MD> Wei Signsanaz e: Date (if applicable) Amando Hu MD CC: 22-Feb-2018 Cardiology Visit Report Result: Comments: See Note; NOTES: [facility] [place] [address] OFFICE VISIT Date of Service: 02/22/18 MR#: [id number] Acct: [id number] Name: MAYRA GHOSH Re p #: [id number] : 1940 Provider: Amando Hu MD Age/Sex: 77/M Location: [facility] Status: Signed HPI HPI Details: MAYRA GHOSH, is a 77 M who presents to the office today for for outpatient card iovascular follow-up. He has been hospitalized at [facility] in December of this year for concerns of acute on chronic systolic CHF. According to the patient he states he was being treated for tracheobronchitis which included corticosteroid therapy. He states on corticosteroid therapy his glucose levels elevated and his fluid levels elevated. He was subsequently hospitalized for further e valuation and care. During his hospitalization he was treated with IV diuretics. He underwent evaluation with a transthoracic echocardiogram. At that time his left ventricle was considered severely dil ated with moderately severe segmental left ventricular systolic dysfunction with an estimated LVEF of 30%. Since returning home he states overall he has felt better. He notes no ongoing chest discomfor t. He has not had used nitroglycerin sublingual. He has denied any ongoing issues of obvious CHF or pulmonary edema. This is based on lack of orthopnea PND or at the moment peripheral pitting edema. Luz Elena otto continues to wear his support stockings. He has had no near syncope or syncope. His ICD has not discharged. He states he walks with a cane on occasion. However he does not necessarily need it every day. Intake Vital Signs02/22/18 Height 5 ft 7 in 02/22/18 Weight: 188 lb 02/22/18 Body Mass Index (BMI) 29.4 02/22/18 Blood Pressure 120/68 Intake Visit Reasons: Congestive heart failure Allergies amiodarone Allergy (Verified 02/22/18 11:16) Other meperidine [From Demerol] Allergy (Verified 02/22/18 11:16) Low blood pressure spironolactone Allergy (Verified 02/22/18 11:16) Nausea simvastatin Adve rse Reaction (Mild, Verified 02/22/18 11:16) Myalgias Medications Isosorbide Mononitrate [Imdur] 60 mg PO BID 06/02/14 [History Confirmed 02/22/18] Nitroglycerin [Nitrostat] 0.4 mg SUBLINGUAL Q5M PRN 06/02/14 [History Confirmed 02/22/18] Ranolazine [Ranexa] 1,000 mg PO BID 06/02/14 [History Confirmed 02/22/18] Atorvastatin Calcium [Lipitor] 10 mg PO DAILY 08/20/14 [History Confirmed 02/22/18] Multi vitamins,Therapeutic [Multivitamin] 1 tab PO DAILY 08/20/14 [History Confirmed 02/22/18] Dofetilide 250 mcg PO BID 03/14/17 [History Confirmed 02/22/18] Mexiletine [Mexitil] 150 mg PO BID 03/14/17 [Hist ory Confirmed 02/22/18] Magnesium Oxide [Magnesium] 400 mg PO DAILY 07/28/17 [History Confirmed 02/22/18] aspirin 81 mg tablet,delayed release 81 mg PO DAILY 11/12/17 [History Confirmed 02/22/18] bumeta nide 1 mg tablet 1 mg PO BID 11/12/17 [History Confirmed 02/22/18] levothyroxine 100 mcg tablet 100 mcg PO DAILY tab 11/12/17 [History Confirmed 02/22/18] potassium chloride ER 20 mEq tablet,extended re lease(part/cryst) 20 meq PO MOWEFR tab 11/12/17 [History Confirmed 02/22/18] ropinirole 1 mg tablet 2 mg PO QHS tab 11/12/17 [History Confirmed 02/22/18] carvedilol 12.5 mg tablet 18.75 mg PO BID tab [History Confirmed 02/22/18] clopidogrel 75 mg tablet 75 mg PO DAILY 11/14/17 [History Confirmed 02/22/18] L.acidoph,Paracasei, B.lactis [Probiotic] 1 ea PO DAILY 01/18/18 [History Confirmed 01/28 05/15] Sitagliptin Phosphate [Januvia] 50 mg PO DAILY 01/18/18 [History Confirmed 02/22/18] Budesonide Aerosol [Pulmicort Respules] 0.5 mg INHALATION Q12H.RT #60 ampul.neb. 01/21/18 [Rx Confirmed 8] Ipratropium/Albuterol Sulfate [Duoneb] 3 ml INHALATION 4X/DAY #120 ampul.neb 01/21/18 [Rx Confirmed 02/22/18] lactobacillus combination no.8 3 billion cell capsule 3,000 mmu cells PO QDAY 02/22/18 [H istory Confirmed 02/22/18] levetiracetam 1,000 mg tablet 1,500 mg PO BID tab 02/22/18 [History Confirmed 02/22/18] metolazone 2.5 mg tablet 2.5 mg PO QWEEK PRN tab 02/22/18 [History] [facility] Medical His tory HLD (hyperlipidemia) (Chronic) Non-ST elevation (NSTEMI) myocardial infarction (Chronic) Angina pectoris (Chronic) CAD (coronary artery disease) (Ch ronic) Edema (Chronic) Dyspnea (Chronic) Renal disease (Chronic) Fatigue (Chronic) XOCHITL (obstructive sleep apnea) (Chronic) Diabetes mellitus type 2, noninsulin dependent (Chronic) Old myocardial infarct ion (Chronic) Long-term use of high-risk medication (Chronic) Chronic renal failure (Chronic) Cardiac murmur (Chronic) Hypokalemia (Chronic) Atherosclerotic heart disease of [place] coronary artery witho ut angina pectoris (Chronic) Ventricular tachycardia (paroxysmal) (Chronic) ICD (implantable cardioverter-defibrillator) in place (Chronic 11/2001) Systolic CHF, chronic (Chronic) Cardiomyopathy, ische kalin (Chronic) Subdural hematoma (Resolved) CAD (coronary artery disease) (Inactive) CHF (congestive heart failure) (Inactive) Visual hallucination (Inactive) Surgical History (Reviewed 02/22/18 @ 11:2 2 by Ollie Cobos) Aortocoronary bypass status (Resolved) H/O prior ablation treatment (Resolved 01/03/17) History of craniotomy (Resolved 06/2017) History of herniorrhaphy (Resolved) History of hip replacement (Resolved) History of knee surgery (Resolved) S/P CABG (coronary artery bypass graft) (Inactive) Family History Father , ag e 91 of CHF CAD (coronary artery disease) Hypertension Myocardial infarction CHF (congestive heart failure) Mother , age 68 CAD (coronary artery disease) Myocardial infarction Hypothyroid H igh cholesterol Social History Smoking Status: Former smoker how long ago did patient quit smokin alcohol intake: current substance use type: does not use diet: diabetic caffeine: Yes sea tbelt use: always ROS Const Const: Positive for fatigue (generalized); negative for weakness, weight gain, weight loss, frequent falls or excessive sweating Eyes Eyes: Negative for change in vision , blurry vision or transient loss of vision ENT ENT: Positive for balance problems (occasional); negative for dizziness Cardio Chest Pain: No Edema: Bilateral Muscle aches with walking: None Resp Respir atory: Positive for SOB with activity (breathing at baseline); negative for SOB at rest GI GI: Negative vomiting or vomiting blood/hematemesis : Negative for hematuria Musc Musc: Positive for edbora ce problems (occasional); negative for muscle aches/ myalgia, muscle weakness or joint pain Skin Skin: Negative non-healing lesions or rash Neuro Neuro: Negative for weakness, blurry vision, dizziness, lightheadedness, frequent falls or orthostatic symptoms Prosper Hematologic/Lymphatic: Negative for easy bleeding Endo Endo: Positive for fatigue (generalized); negative for excessive sweating Psych Psych: Negative for anxiety or depression Allergy Allergy/Immunology: Negative for hives, Negative for rash Cardiology Exam Const Appearance: cooperative, healthy appearing, comfortable, no acute distress, well developed and well groomed Nutritional Appearance: overweight Orientation: alert, awake and oriented x3 Head Head: normal to inspection, normocephalic and atraumatic Ears: hearing grossly normal bi laterally Nose: external nose normal Mouth: oral mucosae normal Teeth and gingiva: fair dentition Eyes General: appearance normal, both eyes and all related structures Eyelids: eyelids normal Conjunctiv ae: conjunctivae normal Pupils: PERRL EOM: EOM intact bilaterally Neck Neck: normal visual inspection and full ROM Carotids: normal carotid upstroke Chest Chest inspection: normal inspection of the ches t, symmetric chest movement and Pacemaker/ICD Auscultation: Bilateral: Clear to Auscultation Cardio Palpation: normal PMI Rate: regular rate Rhythm: regular rhythm Heart sounds: S1 normal and S2 normal Murmur: Grade 2/6, mid systolic, LLSB, LVOT and apex GI GI: normal to inspection, soft, no hepatosplenomegaly and bowel sounds present Neuro General: alert, awake, oriented x3 and other (walks with a ca ne) Skin Skin: no rashes or lesions noted Extremities Pulses: Normal: Right Radial Pulse, Left Radial Pulse Lower Extremity Edema: Trace: Bilateral wearing bilateral support stockings Psych Psychologica l: normal affect Assessment AND Plan 1. Systolic CHF, chronic I50.22 Plan At the present time he appears to be doing well with respect to his underlying chronic systolic CHF. He appears to be back tow ards his baseline. His recent exacerbation may have been related to his corticosteroid use and increased volume status. He is going to continue his current medical management. He will continue with hi s metolazone therapy on a as needed basis. He is rates he does use this approximately every 3 days. He recently had a BMP. His BUN and creatinine were somewhat elevated however not necessarily unexpect ed for his cardiovascular condition. He states he will be following up with nephrology to assist in monitoring his underlying renal status. 2. Atherosclerosis of [place] coronary artery of [place] heart without angina pectoris I25.10 CABG 1988; Reoperation CABG x3 SVG to LAD, SVG to Rt PDA, Radial artery to OM-2 10/08/02; VT ablation @[facility] 01/03/17 [facility] 03/10/2016 Plan He does have a long-standing histor y of underage lying CAD. He has gone through 2 separate CABG surgeries. At the moment he is without acute symptoms. He will continue risk factor evaluation and care as deemed appropriate. It was not fe lt he required further cardiac diagnostic studies or therapeutic intervention at this time. 3. Postsurgical aortocoronary bypass status Z95.1 CABG 1988; Reoperation CABG x3 SVG to LAD, SVG to Rt PDA, R adial artery to OM-2 10/08/02; VT ablation @[facility] 01/03/17 Plan Again he has a history of previous CABG 2 separate surgeries. He will continue risk factor modification and medical management. 4. Cardio myopathy, ischemic I25.5 Plan He does have a underlying ischemic mediated cardia myopathy. He has had chronically low LV systolic function. He is undergone extensive noninvasive and invasive evaluation in the past. He has continued medical management. He does have an ICD in place. 5. Paroxysmal ventricular tachycardia I47.2 Plan He does have a history of paroxysmal ventricular tachycardia. He has bee n evaluated by electrophysiology. He has been on medical management and has gone through ablative procedures. He continues on dual antiarrhythmic therapy at this time. 6. Automatic implantable cardiac defibrillator in situ Z95.810 Implant 12/10/2001 ICD replacement 06/10/2009, 06/05/2014, Plan He does have an ICD in place. It has been functioning appropriately. 7. Hyperlipidemia, unspecified hyperlipid emia type E78.5 Plan He will continue risk factor modification and medical management. 8. Essential hypertension I10 Plan His blood pressure appears to be recently well controlled at this time. He will continue medical therapy and follow-up. 9. Diabetes mellitus type 2, noninsulin dependent E11.9 Plan He is continuing to follow with his primary care physician for his diabetes mellitus. 10. Chronic renal failure, unspecified CKD stage N18.9 Plan He does have an upcoming appointment with nephrology to help monitor his underlying chronic renal insufficiency. Plan Detail Other Medications Discontinu ed: insulin detemir (U-100) Discontinued Reason: P35 multiple units (0.35 mL) Sub-Q DAILY t no longer taking Additional Comments He will be scheduled for future outpatient cardiovascular follow-up. He will notify the office or present back to the hospital in the interim as needed. Follow Up 6 Months (PFM) Coding Level of Care Code Off vis,est,level 3 Diagnoses Systolic CHF, chronic I50.22 Atherosc lerosis of [place] coronary artery of [place] heart without angina pectoris I25.10 [place] vs. transplanted heart: [place] heart Postsurgical aortocoronary bypass status Z95.1 Cardiomyopathy, ischemic I25.5 Paroxysmal ventricular tachycardia I47.2 Automatic implantable cardiac defibrillator in situ Z95.810 Hyperlipidemia, unspecified hyperlipidemia type E78.5 Hyperlipidemia type: unspecified Essential hyp ertension I10 Hypertension type: essential hypertension Diabetes mellitus type 2, noninsulin dependent E11.9 Chronic renal failure, unspecified CKD stage N18.9 Chronic kidney disease stage: unspecified stage Coding Level of Care Code Off vis,est,level 3 Diagnoses Systolic CHF, chronic I50.22 Atherosclerosis of [place] coronary artery of [place] heart without angina pectoris I25.10 [place] vs. transpla nted heart: [place] heart Postsurgical aortocoronary bypass status Z95.1 Cardiomyopathy, ischemic I25.5 Paroxysmal ventricular tachycardia I47.2 Automatic implantable cardiac defibrillator in situ Z95.81 0 Hyperlipidemia, unspecified hyperlipidemia type E78.5 Hyperlipidemia type: unspecified Essential hypertension I10 Hypertension type: essential hypertension Diabetes mellitus type 2, noninsulin depende nt E11.9 Chronic renal failure, unspecified CKD stage N18.9 Chronic kidney disease stage: unspecified stage 02/22/18 1221 <Electronically signed by Amando Hu MD> Date Amando Hu MD Cosigner Signature: Date (if applicable) CC: Anabella Núñez MD 12-Feb-2018 Pacemaker Check Result: Comments: See Note; NOTES: [facility] [address] [place] [address] Pacemaker Check Date of Service: 02/11/181907 MR#: [id number] Acct: [id number] Name: CLARE GOHSH Rep #: [id number] : 1940 From: Kristie Perry Age/Sex: 77/M Location: [facility] Status: Signed Comments Summary Comments: Remote Bi-VICD Evaluation: Remote interrogation shows 1 NSVT episode and no AT/AF episodes since 11/09/17. Stored e-gram for NSVT episode shows on 01/30/18 @ 17:22 MVT @ 130 to 150 bpm (AV dissociated) x 12 beats. Presenting rhythm shows P synchronous Bi-Vpaced @ 65 ppm. B i-Vpaced=99.6%. battery longevity approx 4.7 yrs. Lead impedances, sensing and adaptive pace/sense thresholds remain stable. Normal remote Bi-VICD function. Next f/u appt scheduled for in 3 mos. Devic e Device Date Interviewed: 02/01/18 Follow-up Location: remote Interview Reason: scheduled follow up Retail Buyer: [employer] Name: Viva S FAST FOOD SHIFT SUPERVISOR-D Model: [id number] Serial #: [id number] Implant Date: 06/05/14 Year(s): 3 Implant Physician: Dr. Saturnino Oq[facility]undo/[facility] Patient Characteristics Ventricular Indication: Nonsustained VT, Sustaned VT Patient Substrate: Ischemic cardiomyopathy Ejection fraction %: 35 to 39 ( 02/2017) By: Echo Pacemaker Dependent: No Device Characteristics Device: Biventricular Type: Implantable defibrillator Remote Follow-Up: [employer] Leads Lead #1 Retail Buyer Lead 1: [employer] [employer] Model Lead 1: [id number] Serial# Lead 1: [id number] Date Implanted Lead 1: 06/05/14 Position Lead 1: RA Lead #2 Retail Buyer Lead 2: [employer] Model Lead 2: [id number] Serial# Lead 2: [id number] Date Implanted Lead 2: 11/09 Lead #3 Retail Buyer Lead 3: [employer] [place] Model Lead 3: [id number] Serial# Lead 3: [id number] Date Implanted Lead 3: 06/05/14 Position Lead 3: LV Diagnostics Pacing % RA Pacin.4 % RV Pacin.6 % LV Pacin.6 Mode Switching Total # Episodes: 0 % Mode switched: 0 Arrhythmias VF Episodes: 0 Fast VT Episodes: 0 Slow VT Episodes: 0 Non-Sust Episodes: 1 Measurements Battery Voltage (V): 2.98 Charge Time (Sec): 3.9 ROJELIO Voltage: 2.73 Predicted Remaining Longevity (months or years): 4.7 years RA Measurements Signal Amplitude (mV): 4.3 Impedance (Ohms): 513 Threshold Voltage: 0.62 @ PW(ms): 0.4 RV Me asurements Signal Amplitude (mV): 11.1 Impedance (Ohms): 399 Threshold Voltage: 0.75 @ PW(ms): 0.4 Shock Impedance (Ohms): 44 LV Measurements Impedance (Ohms): 1,007 Threshold Voltage: 0.62 @ PW(ms): 0. 4 Tachy Settings VF Therapies VF Therapy Status On On On On On On Energy 35 35 35 35 35 35 Pathway B>AX B>AX AX>B B>AX AX>B B>AX ATP: During charging FVT Therapies FVT Therapy Status Off Off Off Off Off Off VT Therapies FVT Therapy Status On On On On On On Comments: Laz Settings Laz Settings Pacemaker Mode DDDR Output/Sensing V/P W (ms) adaptive1.5/0.4 adaptive2.0/0.4 adaptive1.75/0.4 Sensitivity RA RV LV Comments: Billing Codes ICD Device Billing: ICD Dev Interrogate (Rmt) Assessment AND Plan Problems 1. ICD (implantab le cardioverter-defibrillator) in place Z95.810 Implant 12/10/2001 ICD replacement 06/10/2009, 06/05/2014, 2. Cardiomyopathy, ischemic I25.5 3. Ventricular tachycardia (paroxysmal) I47.2 02/11/18 1941 & amp;#60;Electronically signed by Kristie Perry > Date Kristie Perry 02/12/18 0933<Electronically signed by Amando Hu MD> Cosigner Signature: Date (if applicable) Amando Hu MD CC: 18-Jan-2018 Chest 1 View (Portable) Result: Comments: See Note; NOTES: [facility] Imaging Services [address] [place] [id number] Chest 1 View (Portable) MR#: [id number] Acct: [id number] Name: MAYRA GHOSH Rep #: [id number] : 1940 77 From: Renae Coleman MD PCP: Anabella Núñez MD Status: [facility] ER Study: Chest 1 View (Portable) Date of Exam: 01/18/18 Exam# [id number] Ordering Dr: Bennie Hernandez MD STUDY: X-RAY [facility] REASON FOR EXAM: Male, 77 years old. CHEST PAIN, DIZZINESS, HIGH BLOOD SUGAR TECHNIQUE: Single AP portable view of the chest. COMPARISON: None. FINDINGS: Pacem melonie is seen on the left side. The lungs are clear and expanded. There is no demonstrated pleural abnormality. Normal size heart. Normal mediastinum and jessy. Normal visualized pulmonary arteries. Nor mal visualized aortic arch and descending thoracic aorta. There are diffuse degenerative changes of the visualized thoracic spine. There is degenerative osteoarthritis of the bilateral shoulders. Ther e is no demonstrated abnormality of the visualized soft tissue structures of the upper abdomen. RAD/Chest 1 View (Portable) IMPRESSION: Degenerat mary changes, as described above. No demonstrated acute cardiopulmonary process. Electronically Signed: Renae Coleman MD at 13:15 EDT Tel , Service support , CC: Anabella Núñez MD; Bennie Hernandez MD Sprinkler Installer: Signed 09-Jan-2018 Chest PA and Lateral Result: Comments: See Note; NOTES: [facility] Imaging Services [address] [place] [address] Chest PA and Lateral MR#: [id number] Acct: [id number] Name: MAYRA GHOSH Rep #: [id number] : 1940 [facility] From: Louis Sue MD PCP: Anabella Núñez MD Status: REG CLI Study: Chest PA and Lateral Date of Exam: 01/09/18 Exam# [id number] Ordering Dr: Delisa Gordon DO STUDY: X-RAY CHEST REASON FOR EXAM: Male, 77 years old. Shortness of breath. TECHNIQUE: PA and lateral views of the chest. COMPARISON: Comparison is made with prior examination dated November 11, 2017. FINDINGS: Stable mild increased linear markings at the lung bases suggestive of scarring. There is no demonstrated pleural abnormality. Sternal cerclage wires and vascular clips a re present from a prior sternotomy and coronary artery bypass graft procedure (CABG). A left-sided ICD is seen. Normal mediastinum and jessy. Normal visualized pulmonary arteries. There is atheroscleroti c calcification of the aortic arch with tortuosity. There is demineralization of the osseous structures. Normal visualized ribs, clavicles, and shoulders. There is no demonstrated abnormality of the v isualized soft tissue structures of the upper abdomen. RAD/Chest PA and Lateral IMPRESSION: No acute abnormality is seen. Electronically Signed: Louis Sue MD at 12:59 EDT Tel [phone], Service support , CC: Anabella Núñez MD; Delsia Gordon DO Sprinkler Installer: Signed 07-Jan-2018 Inital Evaluation (1) - PT Result: Comments: See Note; NOTES: [facility] Physical Therapy [facility] [facility] [place], [place] [id number] Fax REHABILITATION SERVICES INITIAL EVALUATION MR#: [id number] Acct: [id number] Name: MAYRA GHOHS Rep #: [id number] : 1940 77 From: Polo Bedolla DPT, OCS, CSCS Referring Dr.: CLARI Smith Status: REG RCR Insurance: [facility] SELF PAY INSURANCE Patient's Visit Information MAYRA GHOSH is a 77 year old M referred to Physical Therapy by Krystal Smith NP-C SPOT FACER.ODY with a diagnosis of unsteady. Date of Evaluation: 01/03/18 P hysical Therapist: Polo Bedolla DPT, OC - Visit Plan Plan: Pt doesn not want to undergo further balance or strength at this time as he can and will continue on his own as planned. He has no falls nor does he feel unsteady. He does wihs to undergo driver/guide evaluation and he understands that we do not do that at [facility] and the closest place to my knowledge is in [place]. He understands doctors offic e has written a script for that and is awaiting their referral phone call. Otherwise he will continue ex as planned in previous discharge summary. - Subjective Subjective: Dizzyness and balance the jagdish e as last week. Not sure why he is here. Saw both doctors last week and said he was fine. Will workout at [facility] I adn continue HEP of balance ex as taught to him. Does nto wish to have balance PT. Thought he was having driver/guide evaluation. No other major changes since d/c last week. No falls, no dizzyness. Feels steady and wishes to wrok on it I as discussed in D/C summary last week. - Objective No dizzyness with oculomotor check. Balance is as it was last week at D/C - Balance Scores Functional Gait Assessment Score: 25 % Disability: 16.6700 CATSIB Score (Max score 120 seconds): 94 - Anticip ated Interventions Thank you for the opportunity to evaluate your patient. For Medicare and Medicare HMO plans, please review the plan of care and approve it. It will need to be FAXED BACK to us at [phone] for Medicare purposes. Please let me know if there are questions or concerns regarding this plan of care. Physician Signature: Date:____ <Electronically signed by Polo Bedolla DPT, JEREMI, CSCS> 01/07/18 0643 CC: CLARI Smiht; Anabella Núñez MD EBG Signed For Medicare only, by signing this I certify the plan of care. Physicians Signature Date 25-Dec-2017 PT D/C Summary (1) Result: Comments: See Note; NOTES: [facility] Physical Therapy [facility] [address] [place] [address] Fax REHABILITATION SERVICES RICARDO CONTRERAS SUMMARY MR#: [id number] Acct: [id number] Name: MAYRA GHOSH Rep #: [id number] : 1940 77 From: Polo Bedolla DPT, OCS, CSCS Referring Dr.: Anabella Núñez MD Status: REG RCR Insurance: [facility] SELF PAY INSURANCE HP - PT D/C Summary It has been my pleasure to treat MAYRA GHOSH under orders from Anabella Núñez, for the diagnosis of h/o subdural hematoma for a total of 10 visit(s). Discharge Date: 12/24/17 Please see the following information for a summary of their discharge status. - Subjective Subjective: Ready to be done, Feels good. Can drive and work out on own. Balance is better and no falls lately. Stronger. Has a bad day here and there but otherwise is good. Ready to work out on own. - Overall Improvement % Improvement: 85 - Objective Objective/Function: +2 on FGA . Steps reciprocal with one rail without fatigue after. - Goals Goal 1:: 2 flights steps without SOB Goal Progress: Goal Met Goal 2:: Balance back to to minimize fall risk Goal Progress: Goal Met Goal 3:: Pt feel back to normal after sickness with balance. Goal Progress: Progressing - Plan Plan: D/C to gym ex program. - D/C Information Discharge Comments: Pt doing well and will continue via I gym program. If there are questions or concerns regarding this patient's physical therapy, please feel free to call me at [phone]. Thank you for the referral of this patient. Sincerely, Polo Jewell am, DPT, OC <Electronically signed by Polo Bedolla DPT, OCS, CSCS> 12/25/17 0906 CC: Anabella Núñez MD EBG Signed 10-Dec-2017 Office Visit Report Result: Comments: See Note; NOTES: [facility] [address] [address] OFFICE VISIT Date of Service: 10/25/17 MR#: [id number] Acct: [id number] Patient: MAYRA GHOSH Rep #: [id number] : 1940 Provider: Kristie Perry Age/Sex: 77/M Location: [facility] Status: Signed Device Device Date Interviewed: 10/25/17 Follow-up Location: remote Interview Reason: scheduled follow up Man ufacturer: Medtronic Name: Viva S FAST FOOD SHIFT SUPERVISOR-D Model: [id number] Serial #: [id number] Implant Date: 06/05/14 Year(s): 3 Implant Physician: Dr. Saturnino Oquendo/[facility] Patient Characteristics Ventricular Indication: Nonsu stained VT, Sustaned VT Patient Substrate: Ischemic cardiomyopathy Ejection fraction %: 35 to 39 (02/2017) By: Echo Underlying rhythm: Sinus rhythm (1st degree AVB and frequent PVC's) Pacemaker Dependen t: No Device Characteristics Device: Biventricular Type: Implantable defibrillator Remote Follow-Up: [employer] Leads Lead #1 Retail Buyer Lead 1: [place] Model Lead 1: [id number] Serial# Lead 1: [id number] Date Implanted Lead 1: 06/05/14 Position Lead 1: RA Lead #2 Retail Buyer Lead 2: Medtronic Model Lead 2: [id number] Serial# Lead 2: [id number] Date Implanted Lead 2: 11/09/01 Lead #3 Retail Buyer Lead 3: [employer] [place] Model Lead 3: [id number] Serial# Lead 3: [id number] Date Implanted Lead 3: 06/05/14 Position Lead 3: LV Diagnostics Pacing % RA Pacin.3 % RV Pacin.6 % LV Pacin.6 Mode Switching Total # Episodes: 0 % Mode switched: 0 Arrhythmias VF Episodes: 0 Fast VT Episodes: 0 Slow VT Episodes: 0 Non-Sust Episodes: 0 Measurements Battery Voltage (V): 2.98 Charge Time (Sec): 3.9 ROJELIO Voltage: 2.73 R A Measurements Signal Amplitude (mV): 3.8 Impedance (Ohms): 475 Threshold Voltage: 0.75 @ PW(ms): 0.4 RV Measurements Signal Amplitude (mV): 9.5 Impedance (Ohms): 361 Threshold Voltage: 0.75 @ PW(ms): 0 .4 Shock Impedance (Ohms): 42 LV Measurements Impedance (Ohms): 1,064 Threshold Voltage: 0.62 @ PW(ms): 0.4 Tachy Settings VF Therapies VF Therapy Status On On On On On On Energy 35 35 35 35 35 35 Pathway B>AX B>AX AX>B B>AX AX>B B>AX ATP: During charging FVT Therapies FVT Therapy Status Off Off Off Off Off Off VT Therapies FVT Therapy Status On On On On On On Comments: Laz Settings Laz Settings Pacemaker Mode DDDR Output/Sensing V/PW (ms) adaptive1.5/0.4 adaptive2.0/0.4 adaptive1.75/0.4 Sensitivity RA RV LV Comments: Co mments Summary Comments: Remote Bi-VICD Evaluation: Remote interrogation shows no VT/VF episodes and no AT/AF episodes since 07/15. Presenting rhythm shows P synchronous Bi-Vpaced @ 84 ppm. Bi-Vpaced=99 .6%. Battery longevity approx. 4.9 yrs. Lead impedances, sensing and adaptive pace/sense thresholds remain stable. Normal remote Bi-VICD function. Pt notified remote transmission received and next f/u a ppt scheduled for in 3 mos. 12/10/17 1306 <Electronically signed by Ollie HERNANDEZ> Date Kristie Bethigner Signature : Date (if applicable) CC: 03-Dec-2017 Inital Evaluation (1) - PT Result: Comments: See Note; NOTES: [facility] [address] [place] [address]. [address] [place], [place] [address] Fax REHABILITATION SERVICES INITIAL EVALUATION MR#: [id number] Acct: [id number] Name: MAYRA GHOSH Rep #: [id number] : 1940 77 From: Polo Bedolla DPT, OCS, CSCS Referring Dr.: Anabella Núñez MD Status: REG R Insurance: [facility] Patient's Visit Information MAYRA GHOSH is a 77 year old M referred to Physical Therapy by Anabella ESPAÑA with a diagnosis of h/o subdural hematoma. Date of Evaluation : 11/30/17 Physical Therapist: Polo Bedolla DPT, OC - Visit Plan Frequency: 3x /Week Duration: 2-4 Weeks Plan: has pacemaker. 3x/week for 3-4 weeks for. foam ex. steps for volume. conditio gareth on Nustep. gait with VOR and bending and narrow VENTURA. - Subjective Subjective: Got flu three weeks ago and got weak. Was doing great prior to that. Now it is hard to go down steps without hanging o n to both rails. No pain. Sleep is good. Feels weak on steps and after a simple job at home. Steps wear him out to get to the [employer]. Normally works out at [employer] with balance ex. Feels like vik jane is worse now. Standing in place and is weaving now. Feels like he needs to hold on. No falls. Has to catch himself now. Uses cane away from home now but did not need prior. Used cane after craniotom y last year in June but did not need it regularly. Basic ADLs are OK, they just wear him out. Bending over makes him off balance. activities include working on golf swing and fishing gear but limit ed volume. - Objective Walks I with cane in r UE, transfers I in and out of chair. Steps require railing and very SOB after two flights. HS and gastroc min tight. reflexes LE 2/3 patella and achilles. Coordination LE min deficitis to reciprocal. Sensation seems diminished distally consistent with neuropathy to gross light touch. Strength is 4+/5 in LE. VOR walking shows mild deficits. Foam stance is hard and ec is 2 seconds. - Balance Scores Functional Gait Assessment Score: 23 % Disability: 23.3400 CATSIB Score (Max score 120 seconds): 82 - Goals Goal 1:: 2 flights steps without SOB Goal Time Fr minerva: 2-4 Weeks Goal 2:: Balance back to 27/30 to minimize fall risk Goal Time Frame: 2-4 Weeks Goal 3:: Pt feel back to normal after sickness with balance. Goal Time Frame: 2-4 Weeks - Rehabilitation P otential Physical Therapy Diagnosis: balance deficits after recent sickness. - Anticipated Interventions Patient/Client Instruction: Educate patient on: Condition For the Purpose of:: To improve abilit y of physical actions for home/community/work/leisure Therapeutic Exercise to Include: Endurance training, Balance training For the Purpose of:: To improve balance, To improve safety Thank you for t he opportunity to evaluate your patient. For Medicare and Medicare HMO plans, please review the plan of care and approve it. It will need to be FAXED BACK to us at [phone] for Medicare purposes. Please let me know if there are questions or concerns regarding this plan of care. Physician Signature: Date: <Electronically sig favian by Polo Bedolla DPT, OCS, CSCS> 12/03/17 0942 CC: Anabella Núñez MD EBG Signed For Medicare only, by signing this I certify the plan of care. Physicians Signature Date 14-Nov-2017 Cardiology Visit Report Result: Comments: See Note; NOTES: [facility] [address] [place] [address] OFFICE VISIT Date of Service: 11/14/17 MR#: [id number] Acct: [id number] Name: MAYRA GHOSH Varsha p #: [id number] : 1940 Provider: Amando Hu MD Age/Sex: 77/M Location: [facility] Status: Signed HPI 3 M FU: Details: MAYRA GHOSH, is a 77 M who presents to the office today for outpatient card iovascular follow-up of his complex cardiovascular disease process. As you recall he has a history of underlying atherosclerotic coronary artery disease status post CABG and redo CABG, ischemic mediated cardiomyopathy, chronic systolic CHF, ventricular tachycardia, ICD placement, hyperlipidemia, hypertension, superimposed upon concerns of underlying diabetes mellitus, thyroid disorder, chronic renal i nsufficiency, and more recently concerns of his [employer] ARC related issues with respect to subdural hematoma eventually requiring craniotomy and hematoma evacuation. At the present time he believes his heart i s doing well. He is not complaining of his angina pectoris or use of nitroglycerin sublingual tablets. He has not had acute CHF with orthopnea or PND. He does have waxing and waning lower extremity josette pheral pitting edema for which she has been evaluated and treated for and still requires intermittent adjustment of his diuretic therapy. He has not been experiencing palpitations. There has been no ICD discharge. More recently he has been evaluated by his primary care physician for an upper respiratory tract related issue. He has denied fevers. He has had cough with yellow sputum production. He is c urrently on antibiotic therapy. During this time his volume status changed as did his diuretic use. He had labs performed recently by his primary care physician. His creatinine level is somewhat elevat ed. It has waxed and waned over time based upon his volume shifts and changes in diuretic therapy. As you recall his last transthoracic echocardiogram was performed on 03/15/2017. At that time his left ventricle was mildly dilated with moderately severe segmental systolic dysfunction with an estimated LVEF of 35% with moderate left atrial enlargement and mild right atrial enlargement. He had mild mitr al calcification with moderate MR and trivial TR. He had mild focal aortic valve calcification. He had a negative agitated saline contrast study for right to left interatrial shunt. His estimated RV sys tolic pressure was 33 mmHg. He had decreased diastolic compliance. His ICD wire was noted in the right atrium and right ventricle. He had a previous pharmacologic stress nuclear imaging study performed at [facility] on 09/02/2013. At that time he had findings compatible with myocardial injury/infarction involving portions of the basal towards mid inferolateral segments and being sugges tive of stress-induced myocardial ischemia involving portions of the basal anteroseptal, basal anterior, basal anterolateral segments extending to the mid anterior and anterolateral segments as well as the distal lateral and lateral apical segments. His gated LVEF was 26%. His last diagnostic cardiac catheterization was performed at [facility] in [place], [place] on 03/08/2016. At that ti me according to the report the left main coronary artery was severely diseased with 80% stenosis and subsequent total occlusion, the LAD was reported as going from an SVG graft. The LCx was not visualiz ed but rather faint bridging collaterals from the distal LAD and the distal RCA system filled a portion of the LCx. The RCA was occluded. The SVG graft to the LAD was patent. The SVG graft to the RCA sy stem was patent. The left ventricle was considered mildly enlarged with severe hypokinesis of the basal mid anterior wall as well as the basal and mid inferior wall and the apex. The overall LVEF was 30 %. His most recent CABG was performed on 10/08/2002 at the [facility]. At that time he had an S to the LAD, and SVG to the RCA, and a radial artery to OM 2. He did have an EP study performed at [facility] on 01/04/20. At that time he had EPS with RF V and RFA for paroxysmal monomorphic ventricular tachycardia. He was reported as having recurrent PVC that was RB/IA and was successfully ablated. He also had program med stimulation of the ventricle with inducible sustained but tolerated and self terminating VT and was suspicious for an epicardial source. The recommendation was for continued medical management. 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 He has been tolerating these medications well thus far. Intake Vital Signs11/14/17 Height 5 ft 7 in 11/14/17 Weight: 188 lb 8 oz 11/14/17 Body Mass Index (BMI) 29.5 11/14/17 Blood Pressure 124/70 Intake Visit Reasons: 3 M FU All ergies amiodarone Allergy (Verified 11/14/17 11:39) Other meperidine [From Demerol] Allergy (Verified 11/14/17 11:39) Low blood pressure spironolactone Allergy (Verified 11/14/17 11:39) Nausea simvasta tin Adverse Reaction (Mild, Verified 11/14/17 11:39) Myalgias Medications Isosorbide Mononitrate [Imdur] 60 mg PO BID 06/02/14 [History Confirmed 11/14/17] Nitroglycerin [Nitrostat] 0.4 mg SUBLINGUAL Q5M PRN 06/02/14 [History Confirmed 11/14/17] Ranolazine [Ranexa] 1,000 mg PO BID 06/02/14 [History Confirmed 11/14/17] Atorvastatin Calcium [Lipitor] 10 mg PO DAILY 08/20/14 [History Confirmed 8] Multivitamins,Therapeutic [Multivitamin] 1 tab PO DAILY 08/20/14 [History Confirmed 11/14/17] Dofetilide 250 mcg PO BID 03/14/17 [History Confirmed 11/14/17] Mexiletine [Mexitil] 150 mg PO BID [History Confirmed 11/14/17] Magnesium Oxide [Magnesium] 400 mg PO DAILY 07/28/17 [History Confirmed 11/14/17] aspirin 81 mg tablet,delayed release 81 mg PO QDAY 11/12/17 [History Confirmed 11/14/17] bumetanide 1 mg tablet 1 mg PO BID 11/12/17 [History Confirmed 11/14/17] clonazepam 1 mg tablet 1 mg PO TID PRN 11/12/17 [History Confirmed 11/14/17] levetiracetam 1,000 mg tablet 1,500 mg PO BID tab 0 11/12/17 [History Confirmed 11/14/17] levothyroxine 100 mcg tablet 100 mcg PO QDAY tab 11/12/17 [History Confirmed 11/14/17] melatonin-pyridoxine HCl (vitamin B6) 3 mg-10 mg tablet See Label Instructions PO QHS ea 11/12/17 [History Confirmed 11/12/17] potassium chloride ER 20 mEq tablet,extended release(part/cryst) 40 meq PO BID tab 11/12/17 [History Confirmed 11/14/17] ropinirole 1 mg tablet 2 mg PO B ID tab 11/12/17 [History Confirmed 11/14/17] carvedilol 12.5 mg tablet 18.75 mg PO BID tab 11/14/17 [History Confirmed 11/14/17] clopidogrel 75 mg tablet 75 mg PO QDAY 11/14/17 [History Confirmed ] lactobacillus combination no.8 3 billion cell capsule 3,000 mmu cells PO QDAY 11/14/17 [History Confirmed 11/14/17] metolazone 2.5 mg tablet 2.5 mg PO .q3days PRN tab 11/14/17 [History Confirmed ] Ejection fraction %: 35 to 39 [facility] Medical History HLD (hyperlipidemia) (Chronic) Non-ST elevation (NSTEMI) myocardial infarction (Chronic) Ang rosi pectoris (Chronic) CAD (coronary artery disease) (Chronic) Edema (Chronic) Dyspnea (Chronic) Renal disease (Chronic) Fatigue (Chronic) XOCHITL (obstructive sleep apnea) (Chronic) Diabetes mellitus type 2, noninsulin dependent (Chronic) Old myocardial infarction (Chronic) Long-term use of high-risk medication (Chronic) Chronic renal failure (Chronic) Cardiac murmur (Chronic) Hypokalemia (Chronic) Ather osclerotic heart disease of [place] coronary artery without angina pectoris (Chronic) Ventricular tachycardia (paroxysmal) (Chronic) ICD (implantable cardioverter- defibrillator) in place (Chronic 2) Systolic CHF, chronic (Chronic) Cardiomyopathy, ischemic (Chronic) Subdural hematoma (Acute) CAD (coronary artery disease) (Inactive) CHF (congestive heart failure) (Inactive) Visual hallucination (I nactive) Surgical History Aortocoronary bypass status (Resolved) H/O prior ablation treatment (Resolved 01/03/17) History of craniotomy (Resolved 2016) History of herniorrhaphy (Resolved) History of hip replacement (Resolved) History of knee surgery (Resolved) S/P CABG (coronary artery bypass graft) (Inactive) Family History Father , age 91 of CHF CAD (coronary artery disease) Hypertension Myocardial infarction CHF (congestive heart failure) Mother , age 68 CAD (coronar y artery disease) Myocardial infarction Hypothyroid High cholesterol Social History Smoking Status: Former smoker how long ago did patient quit smokin alcohol intake: current substance use t ype: does not use diet: diabetic caffeine: Yes seatbelt use: always ROS Const Const: Negative for fatigue, weakness, weight gain, weight loss, frequent falls or excessive sweating Eyes Eyes: Neg ative for change in vision, blurry vision or transient loss of vision ENT ENT: Negative for dizziness, Positive for balance problems (patient ambulating with cane) Cardio Chest Pain: No Palpitations: Po sitive for No Edema: Bilateral (ankle edema, increased metolazone couple days per Dr. Núñez) Muscle aches with walking: None Additional Details: Patient currently has a cold Resp Respiratory: Positive for SOB with activity (due to current cold); negative for SOB at rest Additional Details: Patient currently has a cold and productive cough with yellow green sputum. Currently on ATB GI GI: Negative vo miting or vomiting blood/hematemesis : Negative for hematuria Musc Musc: Positive for balance problems (patient ambulating with cane); negative for muscle aches/ myalgia, muscle weakness or joint p ain Skin Skin: Negative non-healing lesions or rash Neuro Neuro: Negative for weakness, Negative for blurry vision, Negative for dizziness, Negative for lightheadedness, Negative for frequent falls, Neg ative for orthostatic symptoms Prosper Hematologic/Lymphatic: Negative for easy bleeding Endo Endo: Negative for fatigue or excessive sweating Psych Psych: Negative for anxiety or depression Allergy Allerg y/Immunology: Negative for hives, Negative for rash Cardiology Exam Const Appearance: cooperative, healthy appearing, comfortable, no acute distress, well developed and well groomed Nutritional Appear ance: overweight Orientation: alert, awake and oriented x3 Head Head: normal to inspection, normocephalic and atraumatic Ears: hearing grossly normal bilaterally Nose: external nose normal Mouth: oral m ucosae normal Eyes General: appearance normal, both eyes and all related structures Eyelids: eyelids normal Conjunctivae: conjunctivae normal Pupils: PERRL EOM: EOM intact bilaterally Neck Neck: normal visual inspection and full ROM Carotids: normal carotid upstroke Chest Chest inspection: normal inspection of the chest, symmetric chest movement and Pacemaker/ICD Auscultation: Bilateral: Inspiratory W heezes, Expiratory Wheezes, Rhonchi Cardio Palpation: normal PMI Rate: regular rate Rhythm: regular rhythm Heart sounds: S1 normal and S2 normal Murmur: Grade 2/6, mid systolic, LLSB, LVOT and apex GI G I: normal to inspection, soft, no hepatosplenomegaly and bowel sounds present Neuro General: alert, awake, oriented x3 and other (walks with a cane) Skin Skin: no rashes or lesions noted Extremities Pul ses: Normal: Right Radial Pulse, Left Radial Pulse Lower Extremity Edema: +1: Bilateral wearing bilateral support stockings Psych Psychological: normal affect Assessment AND Plan 1. CAD (coronary charles ry disease) I25.10 Plan At the present time he appears to be doing well with respect in no acute symptoms related to his underlying CAD process. He will continue risk factor modification and medical man agement as deemed appropriate. 2. Postsurgical aortocoronary bypass status Z95.1 CABG 1988; Reoperation CABG x3 SVG to LAD, SVG to Rt PDA, Radial artery to OM-2 10/08/02; VT ablation @[facility] 01/03/17 Pl an His history of CABG and redo CABG is as noted above. Again he is continuing medical therapy and follow-up. 3. Cardiomyopathy, ischemic I25.5 Plan He does have a history of ischemic mediated cardiomy opathy. He appears to be without significant clinical change at this time. He will continue combined medical therapy. 4. Chronic systolic CHF (congestive heart failure) I50.22 Plan He does have a histo ry of chronic systolic mediated CHF. He is without acute symptoms at this time. Again he will continue medical management with adjustment as needed. 5. Paroxysmal ventricular tachycardia I47.2 Plan He has not been experiencing any symptomatic ventricular dysrhythmias. He will continue his combined antiarrhythmic therapy. Based upon his antiarrhythmic agents he will have follow-up of his BMP with resp ect to his renal function. Depending upon his future renal function his medications may need to be adjusted. 6. Automatic implantable cardiac defibrillator in situ Z95.810 Implant 12/10/2001 ICD replace ment 06/10/2009, 06/05/2014, Plan He does have an ICD in place. He will continue follow-up of this with respect to his device interrogations. 7. Localized edema R60.0 Plan He does have waxing and waning lower extremity edema. His diuretics have had to be adjusted over time. At the moment he appears to be stable. He will continue his current medical management and follow-up. 8. Hyperlipidemia, unspecif ied hyperlipidemia type E78.5 Plan His lipid labs history is been reviewed. He will be scheduled for future lipid and hepatic profile follow-up. Orders Orders: 9. Essential hypertension I10 Plan His bl ood pressure appears to be stable at this time. He will continue medical management and follow-up. 10. Chronic renal failure, unspecified CKD stage N18.9 Plan His renal function does wax and wane. Agai n he will continue medical management and follow-up. However, depending upon his future renal function, this could impact his medications. Plan Detail Other Orders Orders: Other Medications New: Change d: Discontinued: insulin aspart (Novolog Flexpen) Discontinued Reasliding scale SC QDAY Ollie Cobos son: Pt no longer taking Additional Comments Otherwise she will continue to follow with his [facility] especially with respect to his recent upper respiratory tract related illness. He will be scheduled for future outpatient cardiovascular follow-up and laboratory studies. The above w as discussed with the patient and his spouse. They were agreeable to this approach. Thank you for allowing me to participate in the care of your patient. Please don't hesitate to call if any issues amy se. This note was generated using a voice recognition system and there may be incorrect words, spelling or punctuation that were not noted when reviewing the office note prior to saving. Follow Up 4 Mo nths (PFM) Coding Level of Care Code Off vis,est,level 4 Diagnoses CAD (coronary artery disease) I25.10 Coronary Disease-Associated Artery/Lesion type: bypass graft [place] vs. transplanted heart: justin mary heart Postsurgical aortocoronary bypass status Z95.1 Cardiomyopathy, ischemic I25.5 Chronic systolic CHF (congestive heart failure) I50.22 Paroxysmal ventricular tachycardia I47.2 Automatic implanta ble cardiac defibrillator in situ Z95.810 Localized edema R60.0 Edema type: localized Hyperlipidemia, unspecified hyperlipidemia type E78.5 Hyperlipidemia type: unspecified Essential hypertension I10 Hy pertension type: essential hypertension Chronic renal failure, unspecified CKD stage N18.9 Chronic kidney disease stage: unspecified stage Time Spent (min) 30 11/14/17 1243 <Electronically si gned by Amando Hu MD> Date Amando Hu MD Cosigner Signature: Date (if applicable) CC: Anabella Núñez MD 11-Nov-2017 Chest PA and Lateral Result: Comments: See Note; NOTES: [facility] Imaging Services [address] [place] [address] Chest PA and Lateral MR#: [id number] Acct: [id number] Name: MIRELAMAYRA Willams Rep #: [id number] : 1940 77 From: Nereyda Barr MD PCP: Anabella Núñez MD Status: REG CLI Study: Chest PA and Lateral Date of Exam: 11/11/17 Exam# [id number] Ordering Dr: Anabella Núñez MD STUDY: X-RAY CHEST ALICIA SON FOR EXAM: Male, 77 years old. Wheezing and cough. TECHNIQUE: PA and lateral views of the chest. COMPARISON: November 11, 2017. FINDINGS: Patient has left-sided intracardiac pacemaker. Patient has had a sternotomy. The lungs are expanded. There is interstitial thickening present in both lungs. There is no demonstrated pleural abnormality. There is borderline cardiomegaly. Normal mediastinum and jessy. Normal visualized pulmonary arteries. There is atherosclerotic calcification of the aortic arch with tortuosity. There is demineralization of the osseous stru ctures. There are degenerative changes of both shoulders. There is no demonstrated abnormality of the visualized soft tissue structures of the upper abdomen. RAD/Chest PA and Lateral IMPRESSION: Postoperative changes and borderline cardiomegaly without evidence of acute cardiopulmonary disease. Electronically Signed: Nereyda Barr MD at 11:22 EST , Service support , CC: Anabella Núñez MD Sprinkler Installer: Signed 30-Oct-2017 Office Visit Report Result: Comments: See Note; NOTES: [facility] [address] [place] [address] [place] [address] OFFICE VISIT Date of Service: 10/25/17 MR#: [id number] Acct: [id number] Patient: MAYRA GHOSH Rep #: [id number] : 1940 Provider: Kristie Perry Age/Sex: 77/M [place] [facility] [place] Signed Device Device Date Interviewed: 10/25/17 Follow-up Location: remote Interview Reason: scheduled follow up Man ufacturer: [employer]tronic Name: Viva S FAST FOOD SHIFT SUPERVISOR-D Model: [id number] Serial #: [id number] Implant Date: 06/05/14 Year(s): 3 Implant Physician: Dr. Saturnino Oquendo/OSBrayan Patient Characteristics Ventricular Indication: Nonsu stained VT, Sustaned VT Patient Substrate: Ischemic cardiomyopathy Ejection fraction %: 35 to 39 (02/2017) By: Echo Underlying rhythm: Sinus rhythm (1st degree AVB and frequent PVC's) Pacemaker Dependen t: No Device Characteristics Device: Biventricular Type: Implantable defibrillator Remote Follow-Up: [employer] Leads Lead #1 Retail Buyer Lead 1: [place] Model Lead 1: [id number] Serial# Lead 1: [id number] Date Implanted Lead 1: 06/05/14 Position Lead 1: RA Lead #2 Retail Buyer Lead 2: Xero Model Lead 2: [id number] Serial# Lead 2: [id number] Date Implanted Lead 2: 11/09/01 Lead #3 Retail Buyer Lead 3: [employer] [place] Model Lead 3: [id number] Serial# Lead 3: [id number] Date Implanted Lead 3: 06/05/14 Position Lead 3: LV Diagnostics Pacing % RA Pacin.3 % RV Pacin.6 % LV Pacin.6 Mode Switching Total # Episodes: 0 % Mode switched: 0 Arrhythmias VF Episodes: 0 Fast VT Episodes: 0 Slow VT Episodes: 0 Non-Sust Episodes: 0 Measurements Battery Voltage (V): 2.98 Charge Time (Sec): 3.9 ROJELIO Voltage: 2.73 R A Measurements Signal Amplitude (mV): 3.8 Impedance (Ohms): 475 Threshold Voltage: 0.75 @ PW(ms): 0.4 RV Measurements Signal Amplitude (mV): 9.5 Impedance (Ohms): 361 Threshold Voltage: 0.75 @ PW(ms): 0 .4 Shock Impedance (Ohms): 42 LV Measurements Impedance (Ohms): 1,064 Threshold Voltage: 0.62 @ PW(ms): 0.4 Tachy Settings VF Therapies VF Therapy Status On On On On On On Energy 35 35 35 35 35 35 Pathway B>AX B>AX AX>B B>AX AX>B B>AX ATP: During charging FVT Therapies FVT Therapy Status Off Off Off Off Off Off VT Therapies FVT Therapy Status On On On On On On Comments: Laz Settings Laz Settings Pacemaker Mode DDDR Output/Sensing V/PW (ms) adaptive1.5/0.4 adaptive2.0/0.4 adaptive1.75/0.4 Sensitivity RA RV LV Comments: Co mments Summary Comments: Remote Bi-VICD Evaluation: Remote interrogation shows no VT/VF episodes and no AT/AF episodes since 07/15. Presenting rhythm shows P synchronous Bi-Vpaced @ 84 ppm. Bi-Vpaced=99 .6%. Battery longevity approx. 4.9 yrs. Lead impedances, sensing and adaptive pace/sense thresholds remain stable. Normal remote Bi-VICD function. Pt notified remote transmission received and next f/u a ppt scheduled for in 3 mos. 10/27/17 1050 <Electronically signed by Kristie Perry > Date Kristie Perry 10/30/17 0925<Electr onically signed by Ollie HERNANDEZ> Cosigner Signature: Date (if applicable) Ollie Sanchez CC: 15-Oct-2017 PT D/C Summary (1) Result: Comments: See Note; NOTES: [facility] [address] [place] [address]. [address] [place] [address] Fax REHABILITATION SERVICES DISCHAR SUMMARY MR#: [id number] Acct: [id number] Name: MAYRA GHOSH Rep #: [id number] : 1940 77 From: Polo Bedolla DPT, OCS, CSCS Referring DrDusty: CLARI Smith Status: REG RCR [facility] [place] - PT D/C Summary It has been my pleasure to treat MAYRA GHOSH under orders from Krystal Smith, SPOT FACER-C, for the diagnosis of debility, intracranial hemmorhage for a total of 19 visit(s). Discharge Da te: 10/12/17 Please see the following information for a summary of their discharge status. - Subjective Subjective: Does not feeling any changes to strength. Moves around the house better without can e 85% of time. No falls, no unsteadiness. Activities are normal. Making golf clubs without a problem. Steps are good. Sleep is good. Doing ex at home daily. - Objective Objective/Function: Met goals an d above average on FGA. Walks well and I with HEP. Will also continue in gym here at . - Goals Goal 1:: FGA to diminish fall risk. Goal Progress: Goal Met Goal 2:: Patient ready to swing golf c lub without imbalance. Goal Progress: Goal Met Goal 3:: I approp HEP to minimize fall risk. Goal Progress: Goal Met Goal 4:: FGA Goal Progress: Goal Met Goal 5:: Swing golf club in basement iwthou t hesitation Goal Progress: Goal Met - Plan Plan: D/C - D/C Information Discharge Comments: D/C to HEP, doing well. If there are questions or concerns regarding this patient's physical therapy, please feel free to call me at [phone]. Thank you for the referral of this patient. Sincerely, Polo Bedolla, DPT, OC <Electronically signed by Polo WILSONT, OCS, CSCS> 10/15/17 0645 CC: CLARI Smith; Anabella Núñez MD EBG Signed 24-Sep-2017 D/C Summary- SP Result: Comments: See Note; NOTES: [facility]ology [facility] [address] [place] [address] Rd. [address] [place] [address] Fax REHABILITATION SERVICES DISCHAR GE SUMMARY MR#: [id number] Acct: [id number] Name: MAYRA GHOSH Rep #: [id number] : 1940 77 From: Darlin Wilson M.S., CCC-GROUND INTELLIGENCE OFFICER Referring DrDusty: CLARI Smith Status: REG RCR Insurance: [facility] Discharge Summary - Discharged: Discharge: Mayra Ghosh is discharged from outpatient speech-language therapy effective 09/24/2017. Mr. Ghosh attended his initial evaluation followed by four therapy sessions focusing on functional internal and external memory strategies and word-finding strategies. He is able to effectively demonstrate memory and anomia strategies and reports no cognitive- linguistic issues that are affecting his quality of life. Please reconsult as necessary. G-Codes: G9162 CI. G9163 CI. G9164 CI <Electronically signed by Darlin Wilson M.S., CCC-GROUND INTELLIGENCE OFFICER&#6 2; 09/24/17 1428 CC: CLARI Smith; Anabella Núñez MD MO Signed 21-Sep-2017 OT D/C Summary Result: Comments: See Note; NOTES: [facility] Occupational Therapy [facility] [address] [facility] [place], [place] [address] Fax REHABILITATION SERVICES DIS CHARGE SUMMARY MR#: [id number] Acct: [id number] Name: MAYRA GHOSH Rep #: [id number] : 1940 77 From: Ev Rahman Referring Dr.: CLARI Smith Status: REG RCR Eval Date: Discharge Date : HP - OT D/C Summary It has been my pleasure to treat MAYRA GHOSH under orders from LORENZO Guthrie, for the diagnosis of fall-related intracranial hemorrhage s/pcraniotomy for a total of 8 visit (s). Please see the following information for a summary of their discharge status. - Objective Objective/Function: Pt. progressing towards goals. His ROM for shoulder is as follows: flexion R 0-135, L 0-148; extension R 0-48, L 0-60; abduction R 0-135, L 0-155. Pt. complete strength assessment of B UE scoring 4/5 on MMT. Additional strength assessments are as follows: washateria attendant R 85, L 75; lateral R 15, L 15; three jaw R 13, L 14; tip pinch R 9, L 10. Sensation testing completed for touch on monofilament test R thumb-5th fingers 3.22; L thumb-5th fingers: 2nd 2.83, 3rd 2.83, and thumb, 4th, and 5th 3. 22. He is progressing towards goals and will continue to progress with HEP. - Goals Patient Goals: Regain Mobility, Regain Strength, Improve Fine Motor Skills, Use Hand/Wrist/Arm Normally Again, Increa se ROM, Be More Independent in ADLS, Improve Visual/Perceptual Skills, Resume Former Household Responsibilities (Cooking,Cleaning,Yard, etc.), Resume Hobbies Goal:: Pt. to increase R washateria attendant strength by 15 -20 lbs to promote increased strength in R dominant hand for ADl/IADls 4/5 trials 80% of the time by d/c. Goal:: Pt. to increase finger dexterity of R dominant hand through decreased time to that equal to L hand on 9 hole pegbaord test 2/3trials 75%of the time by d/c. Goal:: Pt. to demo understanding and completion of sensory re-integration program for R hand to increase touch sensation to that of L h and 4/5 trials 80% of the time by d/c. Goal:: Pt. to be mod I to return to all ADL/IADLs 4/5 trials 80% of the time by d/c. Goal:: Pt. to be mod I to write three sentences of choice to promote increased (I) and ability to complete handwriting tasks 4/5 traisl 80% of the time by d/c. - Plan Plan: Pt. will be d/c'd today. He is to continue HEP and add in additional exercises for shoulder. He is to call with questions concerns. - D/C Information If there are questions or concerns regarding this patient's occupational therapy, please fell free to call me at [phone]. Thank you for the referral of this patient. Sincerely, Ev Rahman <Electronically signed by Ev Rahman > 09/21/17 1203 CC: CLARI Smith; Anabella Núñez MD KMB Signed 18-Sep-2017 Re-Evaluation - PT (1) Result: Comments: See Note; NOTES: [facility] [address] [place] [address]. [address] [place] [address] Fax REEVALUATION / MEDICARE RECERTI [facility] PHYSICAL THERAPY MR#: [id number] Acct: [id number] Name: MAYRA GHOSH Rep #: [id number] : 1940 77 From: Polo Bedolla DPT, OCS, CSCS Referring DrDusty: CLARI Smith Status: REG RCR Insura nce: [facility] Krystal Smith, SPOT FACER-C, It has been my pleasure to treat MAYRA GHOSH over the last 10 visits for debility, intracranial hemmorhage. Please see the progress note below for an update on e physical therapy plan of care! Subjective: A lot better balance. Able to do things. Lifting utensils easier. No trouble anymore with steps. Basic ADLs are good. Able to swing gently at home a golf cl ub. Activities are close to normal. Walking at home without cane, getting out of chair is still challenging at times. Cane is used stillaout and about as security. Wants to keep going with PT for balanc e. Stepping over items is still challenging. Objective/Function: foam balance ec still tough at 4 seconds. Golf swing is better but lacks weight shift on backswing adn is slow. FGA is +5 and improving n icely. VOR walking is going the right way. OVERALL MUCH IMPROVED BUT STILLS OME WORK TO DO ON UPPER LEVEL BALANCE AND WEIGHT SHIFTS. Plan Plan: 3x/week for 2- 3 for. 1. foam balance. 2. wweight shifts f unctional with golf swing and step overs as well as narrow VENTURA. Progress to HEP. Continue steps and stand from low surface for balance and strength. Goals Goal 1:: FGA to diminish fall risk. Goal Time Frame: 4-6 Weeks Goal Progress: Goal Met Goal 2:: Patient ready to swing golf club without imbalance. Goal Time Frame: 4-6 Weeks Goal Progress: Progressing Goal 3:: I approp HEP to minimize fall r isk. Goal Time Frame: 4-6 Weeks Goal Progress: Goal Met Goal 4:: FGA Goal Time Frame: 2-4 Weeks Goal Progress: NEW GOAL Goal 5:: Swing golf club in basement iwthout hesitation Goal Time Frame: 2-4 Weeks Goal Progress: NEW GOAL Anticipated Interventions Patient/Client Instruction: Educate patient on: Condition, Plan of Care, Risk Factors For the Purpose of:: To improve safety with gait Therapeut ic Exercise to Include: Balance training, Gait and locomotor training For the Purpose of:: To improve ability of physical actions for home/community/work/leisure, To improve safety Please do not hesitat e to contact me at [phone] by phone or if you have questions or concerns regarding this new plan of care! Sincerely, Polo Bedolla, DPT, OC <Electronically signed by Pk Bedolla DPT, OCS, CSCS> 09/18/17 0922 CC: CLARI Smith; Anabella Núñez MD EBG Signed For Medicare only, by signing this I certify the plan of care. Physicians Signature Date 03-Sep-2017 OT General Evaluation Result: Comments: See Note; NOTES: [facility] [place] [address] Fax REHABILITATION SERVICES IN TIA EVALUATION MR#: [id number] Acct: [id number] Name: MAYRA GHOSH Rep #: [id number] : 1940 77 From: Ev Rahman Referring Dr.: CLARI Smith Status: REG [facility]: Patient's Visit Information MAYRA GHOSH is a 77 year old M, referred to Occupational Therapy by Krystal Smith NP-C,, with a diagnosis of fall-related intracranial hemorrhage s/pcraniotomy. D ate of Evaluation: 08/27/17 Occupational Therapist: Ev Rahman - Subjective Subjective: Pt., Mayra, had fall july 03 and he was admitted into [facility]. present for evaluation and no johnathan that while in hospital he has multiple seizures. HE was transferred up to [place] in which craniotomy was preformed to help decrease pressure on brain as is was continuing to swell. While in [facility] after surgery he was intubated due to having a couple more seizures. He has not had seizure since per report and Pt. report. - Pain Right Shoulder 0 Pain Intensity Range: 0 - R OM Shoulder: flexion R 0-134, L 0-137; extentsion R 0-41, L 0-42; Forearm: WFL Wrist: WFL MP: WFL PIP: WFL DIP: WFL ROM Comments: abduction R 0-133, L 0-166 - Strength Shoulder: R 3+/5, L 4/5 Elbow: R 3+/5, L 4/5 Forearm: R 3+/5, L 4/5 Wrist: R 3+/5, L 4/5 Medical Technical Writer: R 75, L 79 Lateral Pinch: R 15, L 13 Tripod Pinch: R unable, L 12 Tip-to-Tip Pinch: R 6, L 8 - Sensation Thumb: R 3.22, L 3.22 Index: R 3.6 1, L 3.22 Middle: R3.22, L 2.83 Ring: R 3.84, L 3.61 Little: R 3.22, L 3.22 - In-Hand Manipulation Palm to Finger Translation: Severe - Right, Normal - Left, Mild - Left Shift: Moderate - Right, Mild - Left Rotation: Mild - Right, Normal - Left - Stroke Specific Quality of Life Total SS-QOL Score: 55 - DASH-Disabilities of Arm, Shoulder AND Hand DASH Sum: 103 - Goals Goal:: Pt. to increase R washateria attendant strength by 15-20 lbs to promote increased strength in R dominant hand for ADl/IADls 4/5 trials 80% of the time by d/c. Goal:: Pt. to increase finger dexterity of R dominant hand through decreased time to that equal to L hand on 9 hole pegbaord test 2/3trials 75%of the time by d/c. Goal:: Pt. to demon understanding and completion of sensory re-integration program for R hand to increase touch sensation to that of L hand 4/5 trials 80% of the time by d/c. Goal:: Pt. to be mod I return to all ADL/IADLs 4/5 trials 8)5 of the time by d/c. Goal:: Pt. to be mod I to write three sentences of choice to promo te increased (I) and ability to complete handwriting tasks 4/5 traisl 80% of the time by d/c. - Rehabilitation General Assessment: Pt., Mayra or Nico, presents with R UE weakness. He is R hand dominant and notes using R hand for most all tasks. He will recieve OT services to promote increasing B UE strength, washateria attendant and FMC strength, finger dexterity, B hand control and manipulation tasks to promote reut rning to PLOF and all ADl/IADls to increased (I) and safety with all daily tasks. Rehabilitation Potential: Excellent - Anticipated Interventions Anticipated Interventions: A/AAROM/PROM, Strengthening, Joint Protection/Energy Conservation, Ergonomic Education, Dynamic Sitting Balance, Fine Motor Coord/Filiberto, Neuro Reeducation, Cognitive Skills, ADL Training, Caregiver Training, Home Program - Visit Plan Frequency: 2x /Week Duration: 4-6 Weeks TEXT: Thank you for the opportunity to evaluate your patient. For Medicare and Medicare HMO plans, please review the plan of care and approve it. It wi ll need to be FAXED BACK to us at [phone] for Medicare purposes. Please let me know if there are questions or concerns regarding this plan of care. Physician Signature: Date: <Electronically signed by Ev Rahman > 09/03/17 1032 CC: CLARI Smith; Anabella Núñez MD KMWoody Signed For Medicare only, by signing this I certify the plan of care. Physicians Signature Date 29-Aug-2017 Inital Evaluation (1) - PT Result: Comments: See Note; NOTES: [facility] [address] [facility] [place] [address] Fax REHABILITATION SERVICES INITIAL EVALUATION MR#: [id number] Acct: [id number] Name: MAYRA GHOSH Rep #: [id number] : 1940 77 From: Polo Bedolla DPT, OCS, CSCS Referring Dr.: CLARI Smith Status: REG R Insurance: [facility] Patient's Visit Information MAYRA GHOSH is a 77 year old M referred to Physical Therapy by Krystal Smith NP-Vandana with a diagnosis of debility, intracranial hemmorhage. Date of Evaluation: 08/27/17 [facility] sical Therapist: Polo Bedolla, LINUS, OC - Visit Plan Frequency: 3x /Week Duration: 4-6 Weeks Plan: 3x/week for 3-6 weeks for. 1. foam balance and functional weight shift. 2. golf swing. 3. VOR and gait with head movements. 4. turns and bends - Subjective Subjective: Fall and hit L side of head. Operation to drain blood from brain late June, fall was early June. Out of hospital 3 weeks ago g oing to rehab in hospital and out one week ago. Been home since. No pain, no dizzy, no numbness. 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 Drop stuff with R edgar nd and is R handed. R shoulder is arthritic and weak and hard to lift as it fatigues quickly. Balance is a major problem also. Doesn't trust self without cane. Uses it most of time. Didn't need cane bef ore fall. Fall was in bedroom for unknown reason and was not a recurring problem. Will need speech to get the right word out. No weakness noted in legs but feels tired. Has steps to mancave and can do t hem with handrail. Enjoys golf and fishing when healthy. Basic ADLS mobility are OK. - Objective has pacemaker and defibrillator. Transfers I chair and bed. Gait is I with cane, some what unsteady without cane. Steps are reciprocal and I with rail. reflexes 2/3 patella and achilles. Sensation WNL in LE to gross light touch. Strength 4+/5 in LE. LE AROM WFL. UE AROM WFL except R shou lder ext rotation mildly limited and weak in ext rotation 3/5. coordination LE reciprocal tapping OK and heel to fernandez OK. Hamstring moderately tight. Gastroc min tight. - drop arm and - ext rotation lag test, no pain in shoulder, just very weak in ext rotation. - Balance Scores Functional Gait Assessment Score: 19 % Disability: 36.6700 CATSIB Score (Max score 120 seconds): 82 - Goals Goal 1:: FGA to diminish fall risk. Goal Time Frame: 4-6 Weeks Goal 2:: Patient ready to swing golf club without imbalance. Goal Time Frame: 4-6 Weeks Goal 3:: I approp HEP to minimize fall risk. Goal Time Frame : 4-6 Weeks - Rehabilitation Potential Physical Therapy Diagnosis: imbalance. Ko has weakness in shoulder. IN discussion with OT, they will handle this while working on his UE. Rehabilitation Potenti al: Fair - Anticipated Interventions Patient/Client Instruction: Educate patient on: Condition, Plan of Care, Risk Factors For the Purpose of:: To improve safety with gait Therapeutic Exercise to Inclu de: Balance training, Gait and locomotor training For the Purpose of:: To improve ability of physical actions for home/community/work/leisure, To improve safety Thank you for the opportunity to eval uate your patient. For Medicare and Medicare HMO plans, please review the plan of care and approve it. It will need to be FAXED BACK to us at [phone] for Medicare purposes. Please let me know if there are questions or concerns regarding this plan of care. Physician Signature: Date: <Electronically signed by Polo Bedolla DPT , OCS, CSCS> 08/29/17 0735 CC: CLARI Smith; Anabella Núñez MD EBG Signed For Medicare only, by signing this I certify the plan of care. ___ Physicians Signature Date 28-Aug-2017 Adult Evaluation - SP Result: Comments: See Note; NOTES: [facility] Speech [facility]ology [facility] [address] [place] [address] Fax REHABILITATION SERVICES INITIAL EVALUATION MR#: [id number] Acct: [id number] Name: MAYRA GHOSH Rep #: [id number] : 1940 77 From: Tracy Hartman Referring DrDusty: CLARI Smith Status: REG R Insurance: [employer] - History Date of Eval: 08/27/17 Medical Diagnosis (from RX): debility s/p craniotomy Previous speech therapy: Yes Results: Pt received ST services in [facility] for primarily word finding deficits. Oth er Relevant Medical History/Diagnoses/Surgery: Pt had a fall which resulted in a craniectomy relieve pressure. Pt was at [facility], then [facility], back to [facility], and back to [facility]. Medications related to this diagno sis: Keppa, Tikosyn, Mexiletine, Atorvastatin, Bumex, Coreg, Isosorbide, Levothyroxine, Magox, Multivitamin, Ranexa, Ropinerole, Probiotic, aspirin, potassium Smoking Status: Never smoker Hx Smoking: No Hx Tobacco Use: No - Pain Is pain an issue with your current prescribed condition?: No - Personal Occupation: retired Right Hearing Abillity: Hard of Hearing Visual Assistive Devices: Glasses Patient s Living Arrangements: With Significant Other Patient Allergies - Allergies Allergies amiodarone Allergy (Verified 07/04/17 16:12) Other meperidine [From Demerol] Allergy (Verified 07/04/17 16:12) Lo w blood pressure spironolactone Allergy (Verified 07/04/17 16:12) Nausea CLQT - CLQT CLQT Administered: Yes CLQT: Cognitive Linguistic Quick Test (CLQT) is a criterion - referenced assessment design ed for adults between the ages of 18 and 89 with known or suspected neurological dysfuntions. The CLQT is to assess strength and weaknesses in five cognitive domains. Severity ratings are within normal limits, mild, moderate, severe deficits. The subtests are as follows: Date: 08/28/17 - Memory Memory: WNL - Language Language: WNL - Clock Drawing Severity Rating Clock Drawing Severity Rating: WNL - CLQT Comments Description Pt completed subtests of the assessment and will complete assessment during following session. Pt strengths were symbol cancellation, clock drawing, confrontation naming, personal information, and naming animals. Pt weaknesses were symbol design as pt made self-correction, recall of story, and naming words with /m/. Plan - Plan Plan: ST is warranted due to deficits in cognitive-linguistics specifically at this time memory, word finding, processing, and sequencing with additional deficits possible. - Frequency Frequency: 1x/Week Duration: 3 Months - Prognosis Progno sis: Excellent - Goal #1-5 Goal #1: Pt will use external vs internal memory strategies to address language deficits to enhance processing and recall of information. Prompts: Min Accuracy: 80% # Session s: 3/4 Goal #2: Pt will utilize strategies (circumlocution) to assist with word finding for specific word or similar word for functional speech and joke telling. Prompts: Min Accuracy: 80% # Sessions: 3 /4 Goal #3: Pt will sequence at least 4 steps in activites including joke telling for increased quality of life. Prompts: Min Accuracy: 80% # Sessions: 3/4 Goal #4: Pt will complete additional cognitive -linguistic assessments for goal addition or modification. G Codes - Type of Therapy Type of Therapy: Speech-Language Pathology - Spoken Language Expression Spoken Language Expression Current: CJ - 2 0-39% Spoken Language Expression Goal: CI - 1-19% Education - Patient has Indicated that the Following Identified Educational Needs: Cognitively Impaired - Patient Instruction Patient Education: Hansa tan Plan, Goals Person Taught: Patient, Significant Other Teaching Method: Discussion, Demonstration Response to teaching: Verbalize understanding, Has Prior Knowledge <Electronically signed by Tracy Hartman > 08/28/17 1316 CC: CLARI Smith; Anabella Núñez MD ELZBIETA Signed For Medicare only, by signing this I certify the plan of care. Physicians Signature Date 06-Jul-2017 12 Lead Electrocardiogram Result: Comments: See Note; NOTES: [facility] Cardiovascular Services [address] [place] [address] 12 Lead EKG 07/04/171649 MR#: [id number] Acct: [id number] Name: MAYRA GHOSH Rep # : [id number] : 1940 77 From: Bennie Ray MD Attending Dr: Status: DEP ER Ordering Dr: Juan C Winston MD Date: 07/04/17 Location: ED Sex: M C Admitted: Test Reason : Blood Pressure : / mmHG Vent. Rate : 070 BPM Atrial Rate : 070 BPM P-R Int : 152 ms QRS Dur : 170 ms QT Int : 546 ms P-R-T Axes : 087 -74 124 degrees QTc Int : 589 ms Atrial- sensed ventricular-paced rhythm Biventricular pacemaker detected Abnormal ECG Confirmed by BENNIE RAY ([id number]), communications editor YANG BARR ([id number]) on 07/06/2017 10:58:37 AM Referred By: ADONAY Confirmed By:BENINE RAY 07/06/17 1058 Date Bennie Ray MD CC: Anabella Núñez MD Date Dictated: 07/04/171649 Date Transcribed: 07/04/171649 Sprinkler Installer: Signed 04-Jul-2017 Emergency Department Summary Result: Comments: See Note; NOTES: [facility] Medical Records Department [address] [place] [address] Emergency Department Summary 07/04/171655 MR#: [id number] Acct: [id number] Name: MAYRA GHOSH Rep #: [id number] : 1940 77 From: Juan C Winston MD PCP: Anabella Núñez MD Status: REG ER - ER Visit Summary Date of Service: 07/04/17 Chief Complaint: [Syncope versus seizure] H istory of Present Illness: The patient is a 77 M who presents with a syncopal event versus seizure. He had been feeling well. He was unloading the car. states that his head jerked to the left and h e fell to the floor. He had shaking of his arms and legs that lasted very briefly only 10-15 seconds. He was confused afterwards. He did begin to speak and answer some questions after arrival here to [facility] emergency department. notes that he did fall 2 days ago onto a carpeted floor. He is on aspirin and Plavix. She believes that this fall was mechanical as it was early in the morning and he had no other complaints. Further history limited as the patient had a recurrent seizure at the time of taking history. Physical Examination: Initial vitals afebrile vitals stable vitals unremarkable Pupils a re equal round reactive to light Heart regular rate and rhythm Lungs are clear Abdomen soft Initially alert and oriented to person place moving all 4 extremities during history patient began to have gen eralized tonic clonic seizure activity which terminated spontaneously Test Results: EKG shows a paced rhythm at a rate of 70. CT of the head shows a left subdural hemorrhage with midline shift. Sherrie lori studies CT C-spine chest x-ray all pending. Emergency Department Course and Treatment: Patient seized during my history. He did have spontaneous termination of the seizure activity. He was placed o n nasal cannula. He was given IV Ativan. I completed the patient a CT which does show a subdural hemorrhage with midline shift. At this point I spoke to family regarding transfer. Patient will be transf erred to [facility] and was accepted by the emergency physician. They requested IV Keppra over IV Dilantin. At this time the patient's GCS is 11. He is showing some purposeful movement and localizing to pain. He is protecting his airway and gag reflex is intact. He is maintaining oxygen saturation on nasal cannula. However I was concerned for the possibility of decompensation. Patient will be trans ferred via helicopter. Treatment Plan: [] Disposition: Transfer [facility] Impression: Subdural hemorrhage with midline shift Seizures ED Disposition - Plan for ED Patient: Chief Complaint: i taryn Referrals: Anabella Núñez MD [Primary Care Provider] - What to do if you have Problems For any increased pain, shortness of breath, bleeding, nausea or vomiting, chest pain, or any unexpected pr oblems, contact your Primary Care Provider. Call [facility] ([phone]) or report to the closest Emergency Room. Call 911 if necessary. 07/04/17 1700 <Electronically signed by Juan C Winston MD> Date Juan C Winston MD Cosigner Signature (If Indicated): Date CC: Anabella Núñez MD 04-Jul-2017 Brain/Head without Contrast Result: Comments: See Note; NOTES: [facility] Imaging Services [address] [place] [address] Brain/Head without Contrast MR#: [id number] Acct: [id number] Name: MAYRA GHOSH Rep #: [id number] : 1940 [facility] From: Darrel Lopez MD PCP: Anabella Núñez MD Status: DEP ER Study: Brain/Head without Contrast Date of Exam: 07/04/17 Exam# [id number] Ordering Dr: Juan C Winston MD STUDY : CT BRAIN WITHOUT CONTRAST REASON FOR EXAM: Male, 77 years old. Seizures RADIATION DOSAGE (If Supplied By Facility): CTDIvol = ( 44.99 ) mGy, DLP = ( 796.11 ) mGycm TECHNIQUE: Transaxial CT imaging of the brain was performed without administration of intravenous contrast material. Individualized dose optimization techniques were used for this CT. COMPARISON: None. ____ FINDINGS: Normal soft tissue structures. Normal calvarium. Calcification of the cavernous carotids. Mild atrophy and periventricular white matter ischemic changes.. Normal basal ganglia and thalam i. Normal brainstem. Normal cerebellum. Moderate sized acute subdural hematoma in left cerebral hemisphere effacing the cortical sulci of the left frontal and parietal lobes without appreciable mass ef fect upon the lateral ventricles or midline shift.. There are no findings of an acute ischemic infarction. Postop changes are seen involving the orbits Normal visualized paranasal sinuses. CT/Brain/Head without Contrast IMPRESSION: Moderate sized acute subdural hematoma in the left cerebral hemisphere with effacement of the cortical sulci but no mass effect upon the lateral ventricle or midline shift. Electronically Signed: Darrel Lopez MD at 17:03 EDT , Service support , CC : Anabella Núñez MD; Juan C Winston MD Sprinkler Installer: Signed 04-Jul-2017 Chest 1 View (Portable) Result: Comments: See Note; NOTES: [facility] Imaging Services [address] [place] [address] Chest 1 View (Portable) MR#: [id number] Acct: [id number] Name: MAYRA GHOSH Rep #: [id number] : 1940 77 From: Nadira Pedersen MD PCP: Anabella Núñez MD Status: REG ER Study: Chest 1 View (Portable) Date of Exam: 07/04/17 Exam# [id number] Ordering Dr: Juan C Winston MD STUDY: X-RAY CHEST REASON FOR EXAM: Male, 77 years old. Seizure TECHNIQUE: Single frontal view of the chest. COMPARISON: June 06, 2015 FINDINGS: The lungs are under aerated . There is no focal airspace disease. There is stable minimal bibasilar scarring. There is no demonstrated pleural abnormality. There is moderate enlargement of the cardiac silhouette. Sternotomy wires are present. A pacing device is stable in the left chest. Normal mediastinum and jessy. Normal visualized pulmonary arteries. There is atherosclerotic calcification of the aortic arch with tortuosity. There are diffuse degenerative changes of the visualized thoracic spine. Normal visualized ribs, clavicles, and shoulders. There is no demonstrated abnormality of the visualized soft tissue structures of the upper abdomen. RAD/Chest 1 View (Portable) IMPRESSION: No acute cardiopulmonary abnormalities or changes. There is stable moderate enlarg ement of the cardiac silhouette without evidence of edema or effusion. Electronically Signed: Nadira Pedersen MD at 17:14 EDT Tel [phone], Service support , Fax CC: Anabella Núñez MD; Juan C Winsotn MD Sprinkler Installer: Signed 04-Jul-2017 Spine Cervical without Contras Result: Comments: See Note; NOTES: [facility] Imaging Services [address] [place] [address] Spine Cervical without Contras MR#: [id number] Acct: [id number] Name: MAYRA GHOSH Rep #: [id number] : 1940 [facility] From: Nadira Pedersen MD PCP: Anabella Núñez MD Status: REG ER Study: Spine Cervical without Contras Date of Exam: 07/04/17 Exam# [id number] Ordering Dr: Juan C Winston MD STUDY: CT CERVICAL SPINE WITHOUT CONTRAST REASON FOR EXAM: Male, 77 years old. Seizure RADIATION DOSAGE (If Supplied By Facility): CTDIvol = ( 22.74 ) mGy, DLP = ( 934.29 ) mGycm TECHNIQUE: High re solution transaxial imaging was performed without contrast material. Sagittal and coronal images were reconstructed. Individualized dose optimization techniques were used for this CT. COMPARISON: None FINDINGS: Normal craniovertebral junction. There are degenerative changes of the anterior atlantoaxial articulation. Normal odontoid process. Normal cervical lordo sis. Osteophytes are scattered throughout the cervical spine. C2-3: Normal endplates. Normal disc height and morphology. Normal central canal and intervertebral neuroforamina. C3-4: There is mild disc space narrowing. There is mild canal narrowing. There is mild foraminal narrowing bilaterally. C4-5: There is no disc space narrowing or canal narrowing. There is mild foraminal narrowing on the right and moderate narrowing on the left. C5-6: There is mild disc space narrowing. There is no canal narrowing. There is mild foraminal narrowing bilaterally. C6-7: There is mild disc space narrowing. The re is no canal narrowing. There is mild foraminal narrowing bilaterally. C7-T1: Normal endplates. Normal disc height and morphology. Normal central canal and intervertebral neuroforamina. The lung api leonel are clear. There are no acute soft tissue abnormalities. CT/Spine Cervical without Contras IMPRESSION: No acute abnormalities are seen in the cervical spine. There are mild to moderate degenerative changes, described above. Electronically Signed: Nadira Pedersen MD at 17:19 EDT Tel [phone], Service support , Fa x [phone] CC: Anabella Núñez MD; Juan C Winston MD Sprinkler Installer: Signed 12-Jun-2017 Operative Report Result: Comments: See Note; NOTES: [facility] Medical Records Department [address] [place] [address] Operative Report 06/12/17 0804 MR#: [id number] Acct: [id number] Name: MAYRA GHOSH Rep #: [id number] : 1940 77 From: Pool Chávez MD PCP: Anabella Núñez MD Status: REG CLI Y Location: [place] [address] Report of Operation Date of Procedure: 06/12/17 Pre-Operative Diagnosis: Screen ing examination Post-Operative Diagnosis: Quinn-colonic diverticulosis Surgery/Procedure Performed:: Colonoscopy Description of Surgical Findings:: Timeout and informed consent was obtained. 77-year-old gentleman was taken to the endoscopy suite. He was placed on the left of the scope was positioned. I did confirm with Dr. Hu cardiology preintervention that the patient would not require a magnet for his pacemaker defibrillator if electric current was required. The patient received 75 mcg of fentanyl and 3 mg of Versed is intravenous sedation. Digital rectal exam demonstrated grade 2 to grade 3 internal and external hemorrhoids. 2-3+ enlarged prostate but no focal mass. The flexible CF-140, scope inserted in the rectum and with transabdominal pressure it was advanced through the colon. Bowel prep was fair there was still some liquidy stool with some solid component located throughout the colon. The cecum ileocecal valve area was achieved. The scope was carefully withdrawn from the cecum an d ascending colon transverse descending and sigmoid colon. Significant diverticulosis was noted throughout the colon with very concentrated diverticulosis of the sigmoid colon. There is no evidence of a ny inflammatory change. The scope was retroflexed within the rectum and anorectal verge inspected hemorrhoidal changes noted no active bleeding. Excess fluid and air was aspirated free the procedure was completed with the patient tolerating it well. Impression pancolonic diverticulosis. Previous colonoscopy 2006. Next screening examination in 10 years. CC: Dr. Gordon Start time 0748, cecal time 0752 , completion time 0759 06/12/17 0826 <Electronically signed by Pool Chávez MD> Date Pool Chávez MD CC: Anabella Núñez MD; Pool Chávez MD Signed 06-Jun-2017 Chest PA and Lateral Result: Comments: See Note; NOTES: [facility] Imaging Services [address] [place] [address] Chest PA and Lateral MR#: [id number] Acct: [id number] Name: MAYRA GHOSH Rep #: [id number] : 1940 M 77 From: Louis Sue MD PCP: Anabella Núñez MD Status: REG CLI Study: Chest PA and Lateral Date of Exam: 06/06/17 Exam# [id number] Ordering Dr: Delisa Gordon DO STUDY: X-RAY CHEST REASON FOR EXAM: Male, 77 years old. Right lower lobe pneumonia. TECHNIQUE: PA and lateral views of the chest. COMPARISON: Comparison is made with prior study dated March 14, 2017. FINDINGS: No acute infiltration is seen. There is no demonstrated pleural abnormality. Sternal cerclage wires and vascular clips are present from a prior sternotomy and coronary charles ry bypass graft procedure (CABG). A left-sided ICD is seen. Normal mediastinum and jessy. Normal visualized pulmonary arteries. There is atherosclerotic calcification of the aortic arch with tortuosity. There is demineralization of the osseous structures. Normal visualized ribs, clavicles, and shoulders. There is no demonstrated abnormality of the visualized soft tissue structures of the upper abdome n. RAD/Chest PA and Lateral IMPRESSION: No acute abnormality is seen. Electronically Signed: Louis Sue MD at 13:58 EDT Tel [phone], Service support , CC: Anabella Núñez MD; Delisa Gordon DO Sprinkler Installer: Signed 14-Mar-2017 CTA Head W/WO Contrast Result: Comments: See Note; NOTES: [facility] Imaging Services [address] [place] [address] Verda 4d CTA Head W/WO Contrast MR#: [id number] Acct: [id number] Name: MAYRA GHOSH Rep #: [id number] : 1940 [facility] From: Kalli Lowery MD PCP: Anabella Núñez MD Status: REG ER Study: CTA Head W/WO Contrast Date of Exam: 03/14/17 Exam# [id number] Ordering Dr: Gal Glasgow MD [facility] DY: CTA OF THE BRAIN REASON FOR EXAM: Male, 77 years old. DIZZINESS SINCE 8AM HX-HTN,NH,PACER,CABG,CHF RADIATION DOSAGE (If Supplied By Facility): CTDIvol = ( 38.18 ) mGy, DLP = ( 1570.82 ) mGycm GENIE HNIQUE: CT angiography was performed with a multi-detector CT scanner. Data acquisition was obtained from the skull base through the vertex following intravenous administration of ml of . MIP images wer e reconstructed from the axial data set. Post-processing of the angiographic images was performed, with multiplanar reformation and 3D reconstruction. Individualized dose optimization techniques were u sed for this CT. COMPARISON: None. FINDINGS: Normal soft tissue structures. Normal calvarium. There is mild cerebral atrophy with widening of the extra-axial spac es and ventricular dilatation. Normal white matter tracts of the cerebral hemispheres. Normal basal ganglia and thalami. Normal brainstem. Normal cerebellum. There is no intracranial hemorrhage. There are no findings of an acute ischemic infarction. Cavernous carotid artery calcifications noted. Mild mucoperiosteal thickening of the maxillary antra noted. Normal bilateral petrous carotid arteries. There is calcified plaque formation of the right cavernous carotid artery, with a mild stenosis (less than 50%). There is calcified plaque formation of the left cavernous carotid artery, with a mild ajay nosis (less than 50%). Normal right A1 segments of the anterior cerebral artery. Normal left A1 segments of the anterior cerebral artery. Normal intact anterior communicating artery (ACOM). Normal bila teral A2 segments of the anterior cerebral arteries. Normal right M1 and M2 segments of the middle cerebral arteries, with a normal M1 bifurcation. Normal left M1 and M2 segments of the middle cerebral arteries, with a normal M1 bifurcation. There is non-visualization of the right posterior communicating artery (PCOM). There is non-visualization of the left posterior communicating artery (PCOM). Th ere is a a dominant left vertebral artery. Bilateral atherosclerosis noted. Normal basilar artery with a normal basilar bifurcation. The visualized bilateral superior cerebellar (SCA) arteries are jose eduardo l. Normal bilateral P1, P2 and visualized P3 segments of the posterior cerebral arteries. There is no demonstrated aneurysm of the hopi of Donis. There is no demonstrated abnormality of the visuali zed brain. CT/CTA Head W/WO Contrast IMPRESSION: No evidence of significant stenosis or occlusion of the intracranial arteries. See above. Elect ronically Signed: Kalli Lowery MD at 17:56 EDT Tel , Service support , CC: Anabella Núñez MD; Gal Glasgow MD Sprinkler Installer: Signed 14-Mar-2017 CTA Neck W/WO Contrast Result: Comments: See Note; NOTES: [facility] Imaging Services [address] [place] [address] Verdana 4d CTA Neck W/WO Contrast MR#: [id number] Acct: [id number] Name: MAYRA GHOSH Rep #: [id number] : 1940 M 77 From: Kalli Lowery MD PCP: Anabella Núñez MD Status: REG ER Study: CTA Neck W/WO Contrast Date of Exam: 03/14/17 Exam# [id number] Ordering Dr: Gal Glasgow MD DHAVAL DY: CTA NECK WITH CONTRAST REASON FOR EXAM: Male, 77 years old. DIZZINESS SINCE 8AM HX-HTN,NH,PACER,CABG,CHF RADIATION DOSAGE (If Supplied By Facility): CTDIvol = ( 38.18 ) mGy, DLP = ( 1570.82 ) mGyc m TECHNIQUE: CT angiography with multi-detector data acquisition was performed from the aortic arch to the skull base following intravenous administration of 75CC ml of Isovue 370 contrast. MIP images were reconstructed from the axial data set. Post-processing of the angiographic images was performed, with multiplanar reformation and 3D reconstruction. Individualized dose optimization techniques wer e used for this CT. COMPARISON: None. FINDINGS: AORTIC ARCH: Mild atherosclerosis of the aortic arch noted. There is tortuosity of the origin of the left common ca rotid artery. There is mild atherosclerotic plaque in association with the branch arteries originating from the aorta. RIGHT CAROTID ARTERIES: Normal right common carotid artery (CCA). There is mild at herosclerotic plaque formation with minimal narrowing of the right carotid bulb. Normal origin of the right internal carotid (ICA) artery without a hemodynamically significant stenosis. Normal visualiz ed cervical portion of the right internal carotid artery. Normal origin of the right external carotid artery (ECA). LEFT CAROTID ARTERIES: Normal left common carotid artery (CCA). Tortuosity of the or igin of the left common carotid artery noted. There is mild to moderate moderate atherosclerotic plaque formation with mild narrowing of the carotid bulb. Normal origin of the left internal carotid (IC A) artery without a hemodynamically significant stenosis. Normal visualized cervical portion of the left internal carotid artery. Normal origin of the left external carotid artery (ECA). VERTEBRAL ART ERIES: Normal bilateral vertebral arteries. CT/CTA Neck W/WO Contrast IMPRESSION: There is atherosclerosis predominantly associated with the orig ins of the cerebral arteries and in association with the carotid bulbs but no significant stenosis of the carotid arteries or vertebral arteries noted. Less than 50% stenosis of the ICA origins by NASCE T criteria. Electronically Signed: Kalli Lowery MD at 18:00 EDT Tel , Service support , CC: Anabella Núñez MD; Gal Glasgow MD Sprinkler Installer: Signed 14-Mar-2017 Chest PA and Lateral Result: Comments: See Note; NOTES: [facility] Imaging Services [address] [place] [address] Verdana 4d Chest PA and Lateral MR#: [id number] Acct: [id number] Name: MAYRA GHOSH Екатерина Rep #: [id number] : 1940 77 From: Kalli Lowery MD PCP: Anabella Núñez MD Status: REG ER Study: Chest PA and Lateral Date of Exam: 03/14/17 Exam# [id number] Ordering Dr: Gal Glasgow MD STUDY: X-RAY CHEST REASON FOR EXAM: Male, 77 years old. Dizzy, short of breath TECHNIQUE: PA and lateral views of the chest. COMPARISON: September 13, 2015 FINDINGS: Trip le lead pacer defibrillator device present. Cardiac monitoring leads are present. The lungs are clear and expanded. There is no demonstrated pleural abnormality. There is mild cardiac enlargement. The re is been prior thoracic surgery with sternal wire sutures. No sign to suggest mediastinal or hilar adenopathy. Normal visualized pulmonary arteries. There is atherosclerotic tortuosity of the aortic a rch and descending thoracic aorta. There are diffuse degenerative changes of the visualized thoracic spine. Normal visualized ribs, clavicles, and shoulders. There is no demonstrated abnormality of th e visualized soft tissue structures of the upper abdomen. RAD/Chest PA and Lateral IMPRESSION: Chronic mild cardiomegaly and postsurgical changes . No acute failure or focal infiltrate. Electronically Signed: Kalli Lowery MD at 18:36 EDT Tel , Service support , CC: Anabella Núñez MD; Gal Glasgow MD Sprinkler Installer: Signed 02-Nov-2016 Chest PA and Lateral Result: Comments: See Note; NOTES: [facility] Imaging Services [address] [place] [address] Verdana 4d Chest PA and Lateral MR#: [id number] Acct: [id number] Name: MAYRA GHOSH Rep #: [id number] : 1940 M 76 From: Tyshawn Gayle DO PCP: Anabella Núñez MD Status: REG CLI Study: Chest PA and Lateral Date of Exam: 11/02/16 Exam# [id number] Ordering Dr: Amando Hu MD STUDY: X-R AY CHEST REASON FOR EXAM: Male, 76 years old. Sternal bruising after fall. TECHNIQUE: PA and lateral views of the chest. COMPARISON: September 15, 2016. FINDINGS: The lungs are clear and expanded. No infiltrate or mass. There is no pneumothorax. There is no demonstrated pleural abnormality. Sternal cerclage wires are present from a prior sternotomy. The heart r emains mildly enlarged. There is a stable cardiac pacemaker/ICD. Normal mediastinum and jessy. Normal visualized pulmonary arteries. There is atherosclerotic calcification of the aortic arch with tortuos ity. There are diffuse degenerative changes of the visualized thoracic spine. There is degenerative osteoarthritis of the bilateral shoulders. There is no demonstrated abnormality of the visualized so ft tissue structures of the upper abdomen. RAD/Chest PA and Lateral IMPRESSION: No acute cardiopulmonary disease or interval change. Electronica lly Signed: Tyshawn Gayle DO at 12:16 EST Tel [phone], Service support [phone], CC: Anabella Núñez MD; Amando Hu MD Sprinkler Installer: Signed 08-Sep-2016 Kidney and Bladder Result: Comments: See Note; NOTES: [facility] Imaging Services [address] [place] [address] Verdana 4d Kidney and Bladder MR#: [id number] Acct: [id number] Name: MAYRA GHOSH Rep #: [id number] : 1940 76 From: Louis Sue MD PCP: Anabella Núñez MD Status: REG CLI Study: Kidney and Bladder Date of Exam: 09/08/16 Exam# [id number] Ordering Dr: Anabella Núñez MD STUDY: RENAL ULTRASOUND - COMPLETE REASON FOR EXAM: Male, 76 years old. Stage III chronic renal disease. TECHNIQUE: Ultrasound evaluation of the kidneys was performed with real-time and static correa-scale anita ging. COMPARISON: None. FINDINGS: RIGHT KIDNEY: Normal location of the right kidney, which is normal in size. The right kidney measures 10.1 cm x 5.9 cm x 6.6 cm. There is a normal cortex of the right kidney. The renal cortex measures 1.6 cm. There is no right renal mass or cyst. There are no right renal calculi. There is no right hydronephrosis. DISTAL RIGHT UR ETER: There is non-visualization of the distal right ureter. There is no demonstrated right ureterovesical junction calculus. There is a visualized right ureteral jet. LEFT KIDNEY: Normal location of t he left kidney, which is normal in size. The left kidney measures 10.4 cm x 5.1 cm x 5.2 cm. There is a normal cortex of the left kidney. The renal cortex measures 1.2 cm. There is no left renal mass or cyst. There are no left renal calculi. There is no left hydronephrosis. DISTAL LEFT URETER: There is non-visualization of the distal left ureter. There is no demonstrated left ureterovesical junction calculus. There is a visualized left ureteral jet. BLADDER: The distended urinary bladder has a volume of 57 ml. There is a normal wall thickness of the distended urinary bladder. There is no demonstra johnathan mass within the urinary bladder. There are no demonstrated bladder calculi. US/Kidney and Bladder IMPRESSION: Normal ultrasound of the kidne ys and urinary bladder. Electronically Signed: Louis Sue MD at 15:05 EST Tel [phone], Service support [phone], CC: Anabella Núñez MD Sprinkler Installer: Signed 13-Sep-2015 Chest PA and Lateral Result: Comments: See Note; NOTES: [facility] Imaging Services [address] [place] [id number] [address] 4d Chest PA and Lateral MR#: [id number] Acct: [id number] Name: Lula GHOSH Rep #: [id number] : 1940 M 75 From: Louis Sue MD PCP: Anabella Núñez MD Status: REG CLI Study: Chest PA and Lateral Date of Exam: 09/13/15 Exam# [id number] Ordering Dr: Daria Lowe STUDY: X-RAY CHEST REASON FOR EXAM: Male, 75 years old. History of bronchitis. TECHNIQUE: PA and lateral views of the chest. COMPARISON: Comparison is made with prior study dated August 20, 2014. FINDINGS: The lungs are clear and expanded. There is no demonstrated pleural abnormality. Sternal cerclage wires and vascular clips are present from a prior sternotomy and coronary artery bypass graft procedure (CABG). A left- sided ICD is seen. Moderate cardiomegaly. Normal mediastinum and jessy. Normal visualized pulmonary arteries. There is ath erosclerotic calcification of the aortic arch with tortuosity. There are diffuse degenerative changes of the visualized thoracic spine. Normal visualized ribs, clavicles, and shoulders. There is n o demonstrated abnormality of the visualized soft tissue structures of the upper abdomen. IMPRESSION: No acute abnormality is seen. Cardiomegaly. Electronical ly Signed: Louis Sue MD at 12:55 EST Tel [phone], Service support [phone], RAD/Chest PA and Lateral IMPRESSION: No acute abnorma lity is seen. Cardiomegaly. Electronically Signed: Louis Sue MD at 12:55 EST Tel [phone], Service support [phone], CC: Daria Lowe; Anabella Núñez MD Sprinkler Installer: Signed 13-Sep-2015 Spirometry ([id number]) Comments: normal Result: 23-Apr-2014 Echocardiogram Complete Result: Comments: See Note; NOTES: [facility] Cardiovascular Services [address] [place] [address] Echo Complete 04/23/14 0954 MR#: [id number] Acct: [id number] Name: CORNELIA GHOSH Rep #: [id number] : 1940 74 From: Amando Hu MD Attending Dr: Amando Hu MD Status: REG CLI Ordering Dr: Amando Hu MD Date: 04/23/14 Location: [facility] Sex: M C Admitted: Procedure This was a 2D Doppler, Color Flow transthoracic echocardiogram. The exam was of fair technical quality due to body habitus. The study was technically difficult. Exam performed in department . Left Ventricle Mildly dilated left ventricle. Mild concentric left ventricular hypertrophy. Moderate segmental systolic dysfunction (see wall motion). The estimated ejection fraction is 30 % . Tr ansmitral diastolic flow velocities suggest moderate (stage 2) diastolic dysfunction ( pseudonormal pattern). Anterio-Basal: Hypokinetic. Lateral-Basal: Hypokinetic. Posterior-Basal: Akinetic. Infero -Basal: Akinetic. Basal inferoseptal: Akinetic. Basal anteroseptal: Hypokinetic. Mid- Anterior : Hypokinetic. Mid-Lateral : Severely Hypokinetic. Mid- Posterior: Akinetic. Mid-Inferior: Akinetic. Mid- inferoseptal : Akinetic. Mid-anteroseptal : Akinetic. [place] : Hypokinetic. Right Ventricle Normal RV size. ICD or pacer leads identified within the right ventricle. Normal systolic function. Atri a The left atrium is moderately enlarged. The right atrium is mildly enlarged. ICD or pacer leads identified within the right atrium. No doppler evidence for ASD. Mitral Valve There is mild mitral annular calcification. Normal mitral valve. Moderate (2+) mitral valve insufficiency. Tricuspid Valve Normal tricuspid valve. Mild tricuspid valve insufficiency. Right ventricular systolic pressu re estimated to be 52 mmHg. Aortic Valve Trisinus/trileaflet aortic valve. Mild diffuse aortic valve thickening. Mild focal aortic valve calcification. Aortic sclerosis, no stenosis. Pulmonic Va lve The pulmonic valve is not well visualized. Trivial pulmonic valve insufficiency. Great Vessels Normal sized aortic root. Pericardium/Pleural No pericardial effusion. Medication Did not us e Definity RVSP > 50 mm/hg. LVIDd: 5.2 cm IVSd: 1.5 cm Ao root diam: 3.3 cm LAV(MOD-bp): 90.3 ml LVIDs: 4.4 cm LVPWd: 1.4 cm Ao root area: 8.8 cm2 LAV(MOD-bp) Indexed: 45.1 ml/m2 FS: 15.9 % LA dimension: 5.8 cm LAV(MOD-sp2): 73.3 ml LAV(MOD-sp4): 97.3 ml LA A4 area: 29.0 cm2 RA A4 area: 21.1 cm2 M V E max kat: Lat Peak E' Kat: Med Peak E' Kat: Ao V2 max: 128.7 cm/sec 3.5 cm/sec 3.6 cm/sec 118.2 cm/sec MV A max kat: 53.6 cm/sec Ao max P.6 mmHg MV E/A: 2.4 LV V1 max: 84.8 cm/sec PA V2 max: 82.3 cm/sec TR max kat: 344.2 cm/sec E /E' lat: 36.7 LV V1 max P.9 mmHg PA max P.7 mmHg TR max P.4 m [facility] [place] E/E' med: 36.0 Interpretation Summary The study was technically difficult. Mildly dilated left ventricle. M oderate segmental systolic dysfunction (see wall motion). The estimated ejection fraction is 30 %. Mild concentric left ventricular hypertrophy. The left atrium is moderately enlarged. The right atr ium is mildly enlarged. There is mild mitral annular calcification. Moderate (2+) mitral valve insufficiency. Mild tricuspid valve insufficiency. Aortic sclerosis, no stenosis. Trivial pulmonic reji ve insufficiency. Right ventricular systolic pressure estimated to be 52 mmHg. Transmitral diastolic flow velocities suggest diastolic dysfunction ( pseudonormal pattern). ICD or pacer leads identifi ed within the right atrium ICD or pacer leads identified within the right ventricle. Ordering Physician: Amando Hu Referring Physician: Anabella Núñez M.D. Performed By: Rajwinder Aleman, ROMERO : Anabella Núñez MD; Molly Hu MD Date Dictated: 04/23/1454 Date Transcribed: 04/23/142135 Sprinkler Installer: Signed 21-Jan-2014 Chest PA and Lateral Result: Comments: See Note; NOTES: [facility] Imaging Services [address] [place] [address] Radiology Report MR#: [id number] Acct: [id number] Name: MAYRA GHOSH Rep #: [id number] : 1940 M 73 From: Louis Sue MD PCP: Anabella Núñez MD Status: REG CLI Study: Chest PA and Lateral Date of Exam: 01/21/14 Exam# [id number] Ordering Dr: Anabella Núñez MD STUDY: X -RAY CHEST REASON FOR EXAM: Male, 73 years old. 3 week history of bronchitis. TECHNIQUE: PA and lateral views of the chest. COMPARISON: Comparison is made with prior examination dated December 11, 2012. FINDINGS: Hyperinflation. There is blunting of the costophrenic angles posteriorly. Sternal cerclage wires and vascular clips are present from a prior sternotomy and coronary artery bypass graft procedure (CABG). Moderate cardiomegaly. A left-sided ICD is seen. Normal mediastinum and jessy. Normal visualized pulmonary arteries. There is atherosclero tic tortuosity of the aortic arch and descending thoracic aorta. Normal visualized thoracic spine. Normal visualized ribs, clavicles, and shoulders. There is no demonstrated abnormality of the vis ualized soft tissue structures of the upper abdomen. IMPRESSION: Blunting of the costophrenic angles posteriorly. Hyperinflation. Electronically Signed: Daniella Sue M.D. at 15:48 EDT , Service support [phone], CC: Anabella Núñez MD Sprinkler Installer: Signed Immunization Name Dates Details Influenza (3 years and up) on: 26-Jul-2009 Family History Unknown Family Member Name Dates Details Family Members In General Comments: Heart Disease, High Blood Pressure Status: Active Father Comments: CAD start at 60's lived into 90's Status: Active father side all aunts and aunts CAD Status: Active Maternal Grandfather Comments: CAD Status: Active Maternal Grandmother Comments: cancer ? type Status: Active Mother Comments: CAD start at 70's, Status: Active Paternal Grandfather Comments: early ?ause Status: Active Sister 1 Comments: pancreatic cancer 66 yo . 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 Comments: 50 years ago Status: Active Tobacco use: Former smoker. Status: Inactive Smoking Status Name Dates Details Former smoker Vital Signs Date Test Result Details [id number] Temperature 97.6 f Comments: Method: Temporal Pulse 82 /min Comments: Pattern: Regular Respiration Rate 16 /min Comments: Pattern: Unlabored O2 SAT 98 % Comments: Room air BP Systolic 90 mm[Hg] Comments: Patient Position: Sitting; Cuff Location: Left Arm; Cuff Size: Standard BP Diastolic 60 mm[Hg] Comments: Patient Position: Sitting; Cuff Location: Left Arm; Cuff Size: Standard Weight 185 lb Height 67 in Body Mass Index Calculated 28.97 kg/m2 Body Surface Area Calculated 1.96 m2 :12 Comments: BS 136 this am Temperature 98 f Comments: Method: Oral Pulse 79 /min Comments: Pattern: Regular Respiration Rate 16 /min O2 SAT 97 % Comments: Room air BP Systolic 121 mm[Hg] Comments: Patient Position: Sitting BP Diastolic 71 mm[Hg] Comments: Patient Position: Sitting Weight 181 lb :49 Pulse 64 /min Comments: Pattern: Regular BP Systolic 110 mm[Hg] Comments: Patient Position: Standing; Cuff Location: Left Arm; Cuff Size: Standard BP Diastolic 70 mm[Hg] Comments: Patient Position: Standing; Cuff Location: Left Arm; Cuff Size: Standard :49 Pulse 64 /min Comments: Pattern: Regular BP Systolic 114 mm[Hg] Comments: Patient Position: Sitting; Cuff Location: Left Arm; Cuff Size: Standard BP Diastolic 74 mm[Hg] Comments: Patient Position: Sitting; Cuff Location: Left Arm; Cuff Size: Standard :48 Temperature 97.8 f Comments: Method: Temporal Pulse 64 /min Comments: Pattern: Regular Respiration Rate 20 /min Comments: Pattern: Unlabored O2 SAT 97 % Comments: Room air BP Systolic 120 mm[Hg] Comments: Patient Position: Supine; Cuff Location: Left Arm; Cuff Size: Standard BP Diastolic 80 mm[Hg] Comments: Patient Position: Supine; Cuff Location: Left Arm; Cuff Size: Standard Weight 188 lb Height 67 in Body Mass Index Calculated 29.44 kg/m2 Body Surface Area Calculated 1.97 m2 :15 Temperature 97.9 f Comments: Method: Temporal Pulse 72 /min Comments: Pattern: Regular Respiration Rate 20 /min Comments: Pattern: Unlabored O2 SAT 98 % Comments: Room air BP Systolic 90 mm[Hg] Comments: Patient Position: Sitting; Cuff Location: Left Arm; Cuff Size: Standard BP Diastolic 60 mm[Hg] Comments: Patient Position: Sitting; Cuff Location: Left Arm; Cuff Size: Standard Weight 188 lb Height 67 in Body Mass Index Calculated 29.44 kg/m2 Body Surface Area Calculated 1.97 m2 :32 Temperature 97.9 f Comments: Method: Temporal Pulse 80 /min Comments: Pattern: Regular Respiration Rate 24 /min Comments: Pattern: Unlabored O2 SAT 97 % Comments: Room air BP Systolic 94 mm[Hg] Comments: Patient Position: Sitting; Cuff Location: Left Arm; Cuff Size: Standard BP Diastolic 60 mm[Hg] Comments: Patient Position: Sitting; Cuff Location: Left Arm; Cuff Size: Standard Weight 194 lb Height 67 in Body Mass Index Calculated 30.38 kg/m2 Body Surface Area Calculated 2 m2 :18 Temperature 97.7 f Comments: Method: Temporal Pulse 79 /min Comments: Pattern: Regular Respiration Rate 17 /min Comments: Pattern: Unlabored O2 SAT 98 % Comments: Room air BP Systolic 114 mm[Hg] Comments: Patient Position: Sitting; Cuff Location: Left Arm; Cuff Size: Standard BP Diastolic 62 mm[Hg] Comments: Patient Position: Sitting; Cuff Location: Left Arm; Cuff Size: Standard Weight 187.5 lb Height 67 in Body Mass Index Calculated 29.37 kg/m2 Body Surface Area Calculated 1.97 m2 :06 Temperature 98.1 f Comments: Method: Temporal Pulse 82 /min Comments: Pattern: Regular Respiration Rate 16 /min Comments: Pattern: Unlabored O2 SAT 98 % Comments: Room air BP Systolic 106 mm[Hg] Comments: Patient Position: Sitting; Cuff Location: Left Arm; Cuff Size: Standard BP Diastolic 68 mm[Hg] Comments: Patient Position: Sitting; Cuff Location: Left Arm; Cuff Size: Standard Weight 187.5 lb Height 67 in Body Mass Index Calculated 29.37 kg/m2 Body Surface Area Calculated 1.97 m2 :51 Temperature 97.6 f Comments: Method: Temporal Pulse 68 /min Comments: Pattern: Regular Respiration Rate 20 /min Comments: Pattern: Unlabored O2 SAT 98 % Comments: Room air BP Systolic 120 mm[Hg] Comments: Patient Position: Sitting; Cuff Location: Left Arm; Cuff Size: Standard BP Diastolic 80 mm[Hg] Comments: Patient Position: Sitting; Cuff Location: Left Arm; Cuff Size: Standard Weight 192 lb Height 67 in Body Mass Index Calculated 30.07 kg/m2 Body Surface Area Calculated 1.99 m2 :43 Temperature 97.4 f Comments: Method: Oral Pulse 86 /min Comments: Pattern: Regular Respiration Rate 18 /min O2 SAT 98 % Comments: Room air BP Systolic 120 mm[Hg] Comments: Patient Position: Sitting BP Diastolic 68 mm[Hg] Comments: Patient Position: Sitting Weight 192 lb :16 Pulse 70 /min Comments: Pattern: Regular BP Systolic 104 mm[Hg] Comments: Patient Position: Supine; Cuff Location: Left Arm; Cuff Size: Standard BP Diastolic 68 mm[Hg] Comments: Patient Position: Supine; Cuff Location: Left Arm; Cuff Size: Standard :15 Pulse 74 /min Comments: Pattern: Regular BP Systolic 94 mm[Hg] Comments: Patient Position: Sitting; Cuff Location: Left Arm; Cuff Size: Standard BP Diastolic 64 mm[Hg] Comments: Patient Position: Sitting; Cuff Location: Left Arm; Cuff Size: Standard :03 Temperature 97.8 f Comments: Method: Temporal Pulse 68 /min Comments: Pattern: Regular Respiration Rate 26 /min Comments: Pattern: Labored O2 SAT 94 % Comments: Room air BP Systolic 86 mm[Hg] Comments: Patient Position: Standing; Cuff Location: Left Arm; Cuff Size: Standard BP Diastolic 60 mm[Hg] Comments: Patient Position: Standing; Cuff Location: Left Arm; Cuff Size: Standard Weight 195 lb Height 67 in Body Mass Index Calculated 30.54 kg/m2 Body Surface Area Calculated 2 m2 :15 Pulse 64 /min Comments: Pattern: Regular Respiration Rate 16 /min Comments: Pattern: Unlabored O2 SAT 98 % Comments: Room air BP Systolic 122 mm[Hg] Comments: Patient Position: Sitting; Cuff Location: Left Arm; Cuff Size: Standard BP Diastolic 74 mm[Hg] Comments: Patient Position: Sitting; Cuff Location: Left Arm; Cuff Size: Standard Weight 196.375 lb Height 67 in Body Mass Index Calculated 30.76 kg/m2 Body Surface Area Calculated 2.01 m2 :35 Temperature 97.6 f Comments: Method: Temporal Pulse 70 /min Comments: Pattern: Regular Respiration Rate 20 /min Comments: Pattern: Unlabored O2 SAT 99 % Comments: Room air BP Systolic 114 mm[Hg] Comments: Patient Position: Sitting; Cuff Location: Left Arm; Cuff Size: Standard BP Diastolic 74 mm[Hg] Comments: Patient Position: Sitting; Cuff Location: Left Arm; Cuff Size: Standard Weight 183 lb Height 67 in Body Mass Index Calculated 28.66 kg/m2 Body Surface Area Calculated 1.95 m2 :18 Temperature 97.8 f Comments: Method: Temporal Pulse 76 /min Comments: Pattern: Regular Respiration Rate 97 /min Comments: Pattern: Unlabored O2 SAT 97 % Comments: Room air BP Systolic 106 mm[Hg] Comments: Patient Position: Sitting; Cuff Location: Left Arm; Cuff Size: Standard BP Diastolic 74 mm[Hg] Comments: Patient Position: Sitting; Cuff Location: Left Arm; Cuff Size: Standard Weight 178 lb Height 67 in Body Mass Index Calculated 27.88 kg/m2 Body Surface Area Calculated 1.92 m2 :51 Temperature 97.4 f Comments: Method: Temporal Pulse 80 /min Comments: Pattern: Regular Respiration Rate 24 /min Comments: Pattern: Wheezing O2 SAT 98 % Comments: Room air BP Systolic 108 mm[Hg] Comments: Patient Position: Sitting; Cuff Location: Left Arm; Cuff Size: Standard BP Diastolic 76 mm[Hg] Comments: Patient Position: Sitting; Cuff Location: Left Arm; Cuff Size: Standard Weight 194 lb Height 67 in Body Mass Index Calculated 30.38 kg/m2 Body Surface Area Calculated 2 m2 :56 Temperature 98 f Comments: Method: Temporal Pulse 80 /min Comments: Pattern: Regular Respiration Rate 16 /min Comments: Pattern: Unlabored O2 SAT 97 % Comments: Room air BP Systolic 118 mm[Hg] Comments: Patient Position: Sitting; Cuff Location: Left Arm; Cuff Size: Standard BP Diastolic 70 mm[Hg] Comments: Patient Position: Sitting; Cuff Location: Left Arm; Cuff Size: Standard Weight 191 lb Height 67 in Body Mass Index Calculated 29.91 kg/m2 Body Surface Area Calculated 1.98 m2 :07 Temperature 97.6 f Comments: Method: Temporal Pulse 78 /min Comments: Pattern: Regular Respiration Rate 20 /min Comments: Pattern: Unlabored O2 SAT 98 % Comments: Room air BP Systolic 118 mm[Hg] Comments: Patient Position: Sitting; Cuff Location: Left Arm; Cuff Size: Standard BP Diastolic 78 mm[Hg] Comments: Patient Position: Sitting; Cuff Location: Left Arm; Cuff Size: Standard Weight 191 lb Height 67 in Body Mass Index Calculated 29.91 kg/m2 Body Surface Area Calculated 1.98 m2 :36 Temperature 97.9 f Comments: Method: Temporal Pulse 86 /min Comments: Pattern: Regular Respiration Rate 20 /min Comments: Pattern: Unlabored O2 SAT 97 % Comments: Room air BP Systolic 108 mm[Hg] Comments: Patient Position: Sitting; Cuff Location: Left Arm; Cuff Size: Standard BP Diastolic 68 mm[Hg] Comments: Patient Position: Sitting; Cuff Location: Left Arm; Cuff Size: Standard Weight 190 lb Height 67 in Body Mass Index Calculated 29.76 kg/m2 Body Surface Area Calculated 1.98 m2 :34 Temperature 97.6 f Comments: Method: Temporal Pulse 74 /min Comments: Pattern: Regular Respiration Rate 20 /min Comments: Pattern: Unlabored O2 SAT 97 % Comments: Room air BP Systolic 114 mm[Hg] Comments: Patient Position: Sitting; Cuff Location: Left Arm; Cuff Size: Standard BP Diastolic 76 mm[Hg] Comments: Patient Position: Sitting; Cuff Location: Left Arm; Cuff Size: Standard Weight 188 lb Height 67 in Body Mass Index Calculated 29.44 kg/m2 Body Surface Area Calculated 1.97 m2 :06 Temperature 97.2 f Comments: Method: Temporal Pulse 65 /min Comments: Pattern: Regular Respiration Rate 16 /min Comments: Pattern: Unlabored O2 SAT 96 % Comments: Room air BP Systolic 118 mm[Hg] Comments: Patient Position: Sitting; Cuff Location: Left Arm; Cuff Size: Standard BP Diastolic 72 mm[Hg] Comments: Patient Position: Sitting; Cuff Location: Left Arm; Cuff Size: Standard Weight 183 lb Height 67 in Body Mass Index Calculated 28.66 kg/m2 Body Surface Area Calculated 1.95 m2 :13 Temperature 97.6 f Comments: Method: Temporal Pulse 86 /min Comments: Pattern: Regular Respiration Rate 20 /min Comments: Pattern: Unlabored O2 SAT 98 % Comments: Room air BP Systolic 116 mm[Hg] Comments: Patient Position: Sitting; Cuff Location: Left Arm; Cuff Size: Standard BP Diastolic 70 mm[Hg] Comments: Patient Position: Sitting; Cuff Location: Left Arm; Cuff Size: Standard Weight 191 lb Height 67 in Body Mass Index Calculated 29.91 kg/m2 Body Surface Area Calculated 1.98 m2 :23 Temperature 97.8 f Comments: Method: Tympanic Pulse 92 /min Comments: Pattern: Regular Respiration Rate 18 /min Comments: Pattern: Unlabored O2 SAT 98 % Comments: Room air BP Systolic 118 mm[Hg] Comments: Patient Position: Sitting; Cuff Location: Left Arm; Cuff Size: Standard BP Diastolic 68 mm[Hg] Comments: Patient Position: Sitting; Cuff Location: Left Arm; Cuff Size: Standard Weight 192 lb Height 67 in Body Mass Index Calculated 30.07 kg/m2 Body Surface Area Calculated 1.99 m2 :22 Temperature 96.9 f Comments: Method: Temporal Pulse 70 /min Comments: Pattern: Regular Respiration Rate 16 /min Comments: Pattern: Unlabored O2 SAT 97 % Comments: Room air BP Systolic 120 mm[Hg] Comments: Patient Position: Sitting; Cuff Location: Left Arm; Cuff Size: Standard BP Diastolic 74 mm[Hg] Comments: Patient Position: Sitting; Cuff Location: Left Arm; Cuff Size: Standard Weight 190 lb Height 67 in Body Mass Index Calculated 29.76 kg/m2 Body Surface Area Calculated 1.98 m2 :25 Temperature 97.6 f Comments: Method: Temporal Pulse 72 /min Comments: Pattern: Regular Respiration Rate 16 /min Comments: Pattern: Unlabored O2 SAT 98 % Comments: Room air BP Systolic 100 mm[Hg] Comments: Patient Position: Sitting; Cuff Location: Left Arm; Cuff Size: Standard BP Diastolic 52 mm[Hg] Comments: Patient Position: Sitting; Cuff Location: Left Arm; Cuff Size: Standard Weight 196 lb Height 67 in Body Mass Index Calculated 30.7 kg/m2 Body Surface Area Calculated 2 m2 :02 Pulse 66 /min Comments: Pattern: Regular O2 SAT 96 % Comments: Room air BP Systolic 124 mm[Hg] Comments: Patient Position: Sitting; Cuff Location: Left Arm; Cuff Size: Standard BP Diastolic 64 mm[Hg] Comments: Patient Position: Sitting; Cuff Location: Left Arm; Cuff Size: Standard Weight 196 lb Height 67 in Body Mass Index Calculated 30.7 kg/m2 Body Surface Area Calculated 2 m2 :49 Temperature 97.6 f Pulse 84 /min Comments: Pattern: Regular Respiration Rate 18 /min Comments: Pattern: Unlabored O2 SAT 99 % Comments: Room air BP Systolic 120 mm[Hg] Comments: Patient Position: Sitting; Cuff Location: Left Arm; Cuff Size: Standard BP Diastolic 76 mm[Hg] Comments: Patient Position: Sitting; Cuff Location: Left Arm; Cuff Size: Standard Weight 196 lb Height 67 in Body Mass Index Calculated 30.7 kg/m2 Body Surface Area Calculated 2 m2 :38 Temperature 97.6 f Comments: Method: Temporal Pulse 90 /min Comments: Pattern: Regular Respiration Rate 20 /min Comments: Pattern: Unlabored O2 SAT 97 % Comments: Room air BP Systolic 120 mm[Hg] Comments: Patient Position: Sitting; Cuff Location: Left Arm; Cuff Size: Standard BP Diastolic 70 mm[Hg] Comments: Patient Position: Sitting; Cuff Location: Left Arm; Cuff Size: Standard Weight 194 lb Height 67 in Body Mass Index Calculated 30.38 kg/m2 Body Surface Area Calculated 2 m2 :17 Temperature 97.6 f Comments: Method: Temporal Pulse 80 /min Comments: Pattern: Regular Respiration Rate 20 /min Comments: Pattern: Unlabored O2 SAT 98 % Comments: Room air BP Systolic 108 mm[Hg] Comments: Patient Position: Sitting; Cuff Location: Left Arm; Cuff Size: Standard BP Diastolic 70 mm[Hg] Comments: Patient Position: Sitting; Cuff Location: Left Arm; Cuff Size: Standard Weight 186 lb Height 67 in Body Mass Index Calculated 29.13 kg/m2 Body Surface Area Calculated 1.96 m2 :54 Temperature 97.6 f Comments: Method: Temporal Pulse 74 /min Comments: Pattern: Regular Respiration Rate 20 /min Comments: Pattern: Unlabored O2 SAT 98 % Comments: Room air BP Systolic 140 mm[Hg] Comments: Patient Position: Sitting; Cuff Location: Left Arm; Cuff Size: Large BP Diastolic 74 mm[Hg] Comments: Patient Position: Sitting; Cuff Location: Left Arm; Cuff Size: Large Weight 192 lb Height 67 in Body Mass Index Calculated 30.07 kg/m2 Body Surface Area Calculated 1.99 m2 :15 Temperature 97.2 f Comments: Method: Temporal Pulse 70 /min Comments: Pattern: Regular Respiration Rate 20 /min Comments: Pattern: Unlabored O2 SAT 98 % Comments: Room air BP Systolic 110 mm[Hg] Comments: Patient Position: Sitting; Cuff Location: Left Arm; Cuff Size: Standard BP Diastolic 74 mm[Hg] Comments: Patient Position: Sitting; Cuff Location: Left Arm; Cuff Size: Standard Weight 192 lb Height 67 in Body Mass Index Calculated 30.07 kg/m2 Body Surface Area Calculated 1.99 m2 :40 Temperature 97.6 f Comments: Method: Temporal Pulse 64 /min Comments: Pattern: Regular Respiration Rate 20 /min Comments: Pattern: Unlabored O2 SAT 97 % Comments: Room air BP Systolic 120 mm[Hg] Comments: Patient Position: Sitting; Cuff Location: Left Arm; Cuff Size: Standard BP Diastolic 80 mm[Hg] Comments: Patient Position: Sitting; Cuff Location: Left Arm; Cuff Size: Standard Weight 192 lb Height 67 in Body Mass Index Calculated 30.07 kg/m2 Body Surface Area Calculated 1.99 m2 :04 Temperature 97.6 f Comments: Method: Temporal Pulse 84 /min Comments: Pattern: Regular Respiration Rate 20 /min Comments: Pattern: Unlabored O2 SAT 98 % Comments: Room air BP Systolic 116 mm[Hg] Comments: Patient Position: Sitting; Cuff Location: Left Arm; Cuff Size: Standard BP Diastolic 74 mm[Hg] Comments: Patient Position: Sitting; Cuff Location: Left Arm; Cuff Size: Standard Weight 192 lb Height 67 in Body Mass Index Calculated 30.07 kg/m2 Body Surface Area Calculated 1.99 m2 :32 Temperature 97.6 f Pulse 74 /min Comments: Pattern: Regular Respiration Rate 18 /min Comments: Pattern: Unlabored O2 SAT 96 % Comments: Room air BP Systolic 116 mm[Hg] Comments: Patient Position: Sitting; Cuff Location: Left Arm; Cuff Size: Standard BP Diastolic 68 mm[Hg] Comments: Patient Position: Sitting; Cuff Location: Left Arm; Cuff Size: Standard Weight 196.375 lb :02 Weight 199.5 lb :51 Temperature 97.4 f Pulse 77 /min Comments: Pattern: Regular Respiration Rate 18 /min Comments: Pattern: Unlabored O2 SAT 98 % Comments: Room air BP Systolic 122 mm[Hg] Comments: Patient Position: Sitting; Cuff Location: Left Arm; Cuff Size: Standard BP Diastolic 74 mm[Hg] Comments: Patient Position: Sitting; Cuff Location: Left Arm; Cuff Size: Standard Weight 200 lb Height 67 in Body Mass Index Calculated 31.32 kg/m2 Body Surface Area Calculated 2.02 m2 :59 Pulse 74 /min Comments: Pattern: Regular BP Systolic 110 mm[Hg] Comments: Patient Position: Standing; Cuff Location: Left Arm; Cuff Size: Standard BP Diastolic 68 mm[Hg] Comments: Patient Position: Standing; Cuff Location: Left Arm; Cuff Size: Standard :59 Pulse 68 /min Comments: Pattern: Regular BP Systolic 110 mm[Hg] Comments: Patient Position: Sitting; Cuff Location: Left Arm; Cuff Size: Standard BP Diastolic 80 mm[Hg] Comments: Patient Position: Sitting; Cuff Location: Left Arm; Cuff Size: Standard :52 Temperature 97.6 f Comments: Method: Temporal Pulse 74 /min Comments: Pattern: Regular Respiration Rate 20 /min Comments: Pattern: Unlabored O2 SAT 97 % Comments: Room air BP Systolic 120 mm[Hg] Comments: Patient Position: Supine; Cuff Location: Left Arm; Cuff Size: Standard BP Diastolic 74 mm[Hg] Comments: Patient Position: Supine; Cuff Location: Left Arm; Cuff Size: Standard Weight 200 lb Height 67 in Body Mass Index Calculated 31.32 kg/m2 Body Surface Area Calculated 2.02 m2 :03 Pulse 68 /min Comments: Pattern: Regular BP Systolic 112 mm[Hg] Comments: Patient Position: Sitting; Cuff Location: Left Arm; Cuff Size: Standard BP Diastolic 68 mm[Hg] Comments: Patient Position: Sitting; Cuff Location: Left Arm; Cuff Size: Standard :03 Pulse 68 /min Comments: Pattern: Regular BP Systolic 116 mm[Hg] Comments: Patient Position: Sitting; Cuff Location: Left Arm; Cuff Size: Standard BP Diastolic 76 mm[Hg] Comments: Patient Position: Sitting; Cuff Location: Left Arm; Cuff Size: Standard :01 Pulse 81 /min Comments: Pattern: Regular BP Systolic 118 mm[Hg] Comments: Patient Position: Supine; Cuff Location: Left Arm; Cuff Size: Standard BP Diastolic 72 mm[Hg] Comments: Patient Position: Supine; Cuff Location: Left Arm; Cuff Size: Standard :01 Temperature 97.2 f Comments: Method: Oral Pulse 85 /min Comments: Pattern: Regular Respiration Rate 16 /min Comments: Pattern: Unlabored O2 SAT 98 % Comments: Room air BP Systolic 118 mm[Hg] Comments: Patient Position: Sitting; Cuff Location: Left Arm; Cuff Size: Standard BP Diastolic 62 mm[Hg] Comments: Patient Position: Sitting; Cuff Location: Left Arm; Cuff Size: Standard Weight 193.4375 lb Height 67 in Body Mass Index Calculated 30.3 kg/m2 Body Surface Area Calculated 1.99 m2 :07 Temperature 97.1 f Comments: Method: Oral Pulse 89 /min Comments: Pattern: Regular Respiration Rate 16 /min Comments: Pattern: Unlabored O2 SAT 98 % Comments: Room air BP Systolic 120 mm[Hg] Comments: Patient Position: Sitting; Cuff Location: Left Arm; Cuff Size: Standard BP Diastolic 62 mm[Hg] Comments: Patient Position: Sitting; Cuff Location: Left Arm; Cuff Size: Standard Weight 185.4375 lb Height 67 in Body Mass Index Calculated 29.04 kg/m2 Body Surface Area Calculated 1.96 m2 :34 Temperature 97.8 f Comments: Method: Temporal Pulse 82 /min Comments: Pattern: Regular Respiration Rate 20 /min Comments: Pattern: Unlabored O2 SAT 97 % Comments: Room air BP Systolic 126 mm[Hg] Comments: Patient Position: Sitting; Cuff Location: Left Arm; Cuff Size: Standard BP Diastolic 74 mm[Hg] Comments: Patient Position: Sitting; Cuff Location: Left Arm; Cuff Size: Standard Weight 184 lb Height 67 in Body Mass Index Calculated 28.82 kg/m2 Body Surface Area Calculated 1.95 m2 :50 Temperature 97.8 f Pulse 82 /min Comments: Pattern: Regular Respiration Rate 18 /min Comments: Pattern: Unlabored O2 SAT 98 % Comments: Room air BP Systolic 136 mm[Hg] Comments: Patient Position: Sitting; Cuff Location: Left Arm; Cuff Size: Standard BP Diastolic 82 mm[Hg] Comments: Patient Position: Sitting; Cuff Location: Left Arm; Cuff Size: Standard Weight 204 lb Height 67 in Body Mass Index Calculated 31.95 kg/m2 Body Surface Area Calculated 2.04 m2 :13 Temperature 98 f Comments: Method: Oral Pulse 78 /min Comments: Pattern: Regular Respiration Rate 18 /min O2 SAT 98 % Comments: Room air BP Systolic 122 mm[Hg] Comments: Patient Position: Sitting; Cuff Location: Left Arm; Cuff Size: Standard BP Diastolic 70 mm[Hg] Comments: Patient Position: Sitting; Cuff Location: Left Arm; Cuff Size: Standard Weight 204 lb Height 67 in Body Mass Index Calculated 31.95 kg/m2 Body Surface Area Calculated 2.04 m2 :23 Temperature 97.6 f Comments: Method: Temporal Pulse 78 /min Comments: Pattern: Regular Respiration Rate 24 /min Comments: Pattern: Unlabored O2 SAT 98 % Comments: Room air BP Systolic 124 mm[Hg] Comments: Patient Position: Sitting; Cuff Location: Left Arm; Cuff Size: Standard BP Diastolic 78 mm[Hg] Comments: Patient Position: Sitting; Cuff Location: Left Arm; Cuff Size: Standard Weight 204 lb Height 67 in Body Mass Index Calculated 31.95 kg/m2 Body Surface Area Calculated 2.04 m2 :06 Temperature 97.6 f Comments: Method: Temporal Pulse 76 /min Comments: Pattern: Regular Respiration Rate 20 /min Comments: Pattern: Unlabored O2 SAT 98 % Comments: Room air BP Systolic 110 mm[Hg] Comments: Patient Position: Sitting; Cuff Location: Left Arm; Cuff Size: Standard BP Diastolic 70 mm[Hg] Comments: Patient Position: Sitting; Cuff Location: Left Arm; Cuff Size: Standard Weight 199 lb Height 67 in Body Mass Index Calculated 31.17 kg/m2 Body Surface Area Calculated 2.02 m2 :39 Temperature 97.6 f Comments: Method: Temporal Pulse 90 /min Comments: Pattern: Regular Respiration Rate 24 /min Comments: Pattern: Unlabored O2 SAT 98 % Comments: Room air BP Systolic 118 mm[Hg] Comments: Patient Position: Sitting; Cuff Location: Left Arm; Cuff Size: Standard BP Diastolic 76 mm[Hg] Comments: Patient Position: Sitting; Cuff Location: Left Arm; Cuff Size: Standard Weight 203 lb Height 67 in Body Mass Index Calculated 31.79 kg/m2 Body Surface Area Calculated 2.04 m2 :30 Temperature 97.6 f Comments: Method: Temporal Pulse 90 /min Comments: Pattern: Regular Respiration Rate 20 /min Comments: Pattern: Unlabored O2 SAT 99 % Comments: Room air BP Systolic 120 mm[Hg] Comments: Patient Position: Sitting; Cuff Location: Left Arm; Cuff Size: Standard BP Diastolic 74 mm[Hg] Comments: Patient Position: Sitting; Cuff Location: Left Arm; Cuff Size: Standard Weight 202 lb Height 67 in Body Mass Index Calculated 31.64 kg/m2 Body Surface Area Calculated 2.03 m2 :27 Temperature 96.6 f Comments: Method: Temporal Pulse 72 /min Comments: Pattern: Regular Respiration Rate 16 /min Comments: Pattern: Unlabored O2 SAT 97 % Comments: Room air BP Systolic 140 mm[Hg] Comments: Patient Position: Sitting; Cuff Location: Left Arm; Cuff Size: Standard BP Diastolic 76 mm[Hg] Comments: Patient Position: Sitting; Cuff Location: Left Arm; Cuff Size: Standard Weight 192 lb Height 67 in Body Mass Index Calculated 30.07 kg/m2 Body Surface Area Calculated 1.99 m2 :27 Temperature 97.4 f Comments: Method: Temporal Pulse 43 /min Comments: Pattern: Regular Respiration Rate 18 /min Comments: Pattern: Unlabored O2 SAT 98 % Comments: Room air BP Systolic 130 mm[Hg] Comments: Patient Position: Sitting; Cuff Location: Left Arm; Cuff Size: Standard BP Diastolic 62 mm[Hg] Comments: Patient Position: Sitting; Cuff Location: Left Arm; Cuff Size: Standard Weight 200 lb Height 67 in Body Mass Index Calculated 31.32 kg/m2 Body Surface Area Calculated 2.02 m2 :31 Temperature 97.6 f Comments: Method: Oral Pulse 78 /min Comments: Pattern: Regular Respiration Rate 20 /min Comments: Pattern: Unlabored O2 SAT 98 % Comments: Room air BP Systolic 128 mm[Hg] Comments: Patient Position: Sitting; Cuff Location: Left Arm; Cuff Size: Standard BP Diastolic 84 mm[Hg] Comments: Patient Position: Sitting; Cuff Location: Left Arm; Cuff Size: Standard Weight 200 lb Height 67 in Body Mass Index Calculated 31.32 kg/m2 Body Surface Area Calculated 2.02 m2 :36 Temperature 97.6 f Comments: Method: Oral Pulse 62 /min Comments: Pattern: Regular Respiration Rate 20 /min Comments: Pattern: Unlabored BP Systolic 114 mm[Hg] Comments: Patient Position: Sitting; Cuff Location: Left Arm; Cuff Size: Standard BP Diastolic 64 mm[Hg] Comments: Patient Position: Sitting; Cuff Location: Left Arm; Cuff Size: Standard Weight 191 lb Height 67 in Body Mass Index Calculated 29.91 kg/m2 Body Surface Area Calculated 1.98 m2 :51 Temperature 97.9 f Comments: Method: Oral Pulse 64 /min Comments: Pattern: Regular Respiration Rate 16 /min Comments: Pattern: Unlabored BP Systolic 112 mm[Hg] Comments: Patient Position: Sitting; Cuff Location: Left Arm; Cuff Size: Standard BP Diastolic 64 mm[Hg] Comments: Patient Position: Sitting; Cuff Location: Left Arm; Cuff Size: Standard Weight 190 lb Height 67 in Body Mass Index Calculated 29.76 kg/m2 Body Surface Area Calculated 1.98 m2 :55 Temperature 97.8 f Comments: Method: Oral Pulse 68 /min Comments: Pattern: Regular Respiration Rate 18 /min Comments: Pattern: Unlabored BP Systolic 104 mm[Hg] Comments: Patient Position: Sitting; Cuff Location: Left Arm; Cuff Size: Standard BP Diastolic 60 mm[Hg] Comments: Patient Position: Sitting; Cuff Location: Left Arm; Cuff Size: Standard Weight 190 lb Height 67 in Body Mass Index Calculated 29.76 kg/m2 Body Surface Area Calculated 1.98 m2 :17 Temperature 97.8 f Comments: Method: Oral Pulse 80 /min Comments: Pattern: Regular Respiration Rate 18 /min Comments: Pattern: Unlabored BP Systolic 118 mm[Hg] Comments: Patient Position: Sitting; Cuff Location: Right Arm; Cuff Size: Large BP Diastolic 78 mm[Hg] Comments: Patient Position: Sitting; Cuff Location: Right Arm; Cuff Size: Large Weight 183 lb Height 67 in Body Mass Index Calculated 28.66 kg/m2 Body Surface Area Calculated 1.95 m2 :14 Temperature 97.9 f Comments: Method: Oral Pulse 68 /min Comments: Pattern: Regular Respiration Rate 16 /min Comments: Pattern: Unlabored BP Systolic 114 mm[Hg] Comments: Patient Position: Sitting; Cuff Location: Left Arm; Cuff Size: Standard BP Diastolic 66 mm[Hg] Comments: Patient Position: Sitting; Cuff Location: Left Arm; Cuff Size: Standard Weight 183 lb Height 67 in Body Mass Index Calculated 28.66 kg/m2 Body Surface Area Calculated 1.95 m2 :09 Temperature 97.9 f Comments: Method: Oral Pulse 74 /min Comments: Pattern: Regular Respiration Rate 20 /min Comments: Pattern: Unlabored BP Systolic 110 mm[Hg] Comments: Patient Position: Sitting; Cuff Location: Left Arm; Cuff Size: Standard BP Diastolic 70 mm[Hg] Comments: Patient Position: Sitting; Cuff Location: Left Arm; Cuff Size: Standard Weight 177 lb Height 67 in Body Mass Index Calculated 27.72 kg/m2 Body Surface Area Calculated 1.92 m2 :49 Temperature 97.8 f Comments: Method: Oral Pulse 68 /min Comments: Pattern: Regular Respiration Rate 20 /min Comments: Pattern: Unlabored BP Systolic 108 mm[Hg] Comments: Patient Position: Sitting; Cuff Location: Left Arm; Cuff Size: Standard BP Diastolic 70 mm[Hg] Comments: Patient Position: Sitting; Cuff Location: Left Arm; Cuff Size: Standard Weight 175 lb Height 67 in Body Mass Index Calculated 27.41 kg/m2 Body Surface Area Calculated 1.91 m2 :33 Temperature 97.7 f Comments: Method: Oral Pulse 64 /min Comments: Pattern: Regular Respiration Rate 18 /min Comments: Pattern: Unlabored BP Systolic 100 mm[Hg] Comments: Patient Position: Sitting; Cuff Location: Left Arm; Cuff Size: Standard BP Diastolic 60 mm[Hg] Comments: Patient Position: Sitting; Cuff Location: Left Arm; Cuff Size: Standard Weight 175 lb Height 67 in Body Mass Index Calculated 27.41 kg/m2 Body Surface Area Calculated 1.91 m2 :05 Temperature 98.4 f Comments: Method: Oral Pulse 62 /min Comments: Pattern: Regular Respiration Rate 16 /min BP Systolic 102 mm[Hg] Comments: Patient Position: Sitting; Cuff Location: Left Arm; Cuff Size: Standard BP Diastolic 62 mm[Hg] Comments: Patient Position: Sitting; Cuff Location: Left Arm; Cuff Size: Standard Weight 175 lb Height 67 in Body Mass Index Calculated 27.41 kg/m2 Body Surface Area Calculated 1.91 m2 :36 Temperature 97.7 f Comments: Method: Oral Pulse 64 /min Comments: Pattern: Regular Respiration Rate 20 /min Comments: Pattern: Unlabored BP Systolic 94 mm[Hg] Comments: Patient Position: Sitting; Cuff Location: Left Arm; Cuff Size: Standard BP Diastolic 60 mm[Hg] Comments: Patient Position: Sitting; Cuff Location: Left Arm; Cuff Size: Standard Weight 175 lb Height 67 in Body Mass Index Calculated 27.41 kg/m2 Body Surface Area Calculated 1.91 m2 :24 Temperature 97.9 f Comments: Method: Oral Pulse 64 /min Comments: Pattern: Regular Respiration Rate 18 /min Comments: Pattern: Unlabored BP Systolic 102 mm[Hg] Comments: Patient Position: Sitting; Cuff Location: Left Arm; Cuff Size: Standard BP Diastolic 60 mm[Hg] Comments: Patient Position: Sitting; Cuff Location: Left Arm; Cuff Size: Standard Weight 181 lb Height 67 in Body Mass Index Calculated 28.35 kg/m2 Body Surface Area Calculated 1.94 m2 :06 Temperature 97.9 f Comments: Method: Oral Pulse 68 /min Comments: Pattern: Regular Respiration Rate 20 /min Comments: Pattern: Unlabored BP Systolic 110 mm[Hg] Comments: Patient Position: Sitting; Cuff Location: Left Arm; Cuff Size: Standard BP Diastolic 70 mm[Hg] Comments: Patient Position: Sitting; Cuff Location: Left Arm; Cuff Size: Standard Weight 180 lb Height 67 in Body Mass Index Calculated 28.19 kg/m2 Body Surface Area Calculated 1.93 m2 :57 Temperature 96.6 f Comments: Method: Oral Pulse 74 /min Comments: Pattern: Regular Respiration Rate 18 /min O2 SAT 99 % Comments: Room air BP Systolic 100 mm[Hg] Comments: Patient Position: Sitting; Cuff Location: Left Arm; Cuff Size: Standard BP Diastolic 72 mm[Hg] Comments: Patient Position: Sitting; Cuff Location: Left Arm; Cuff Size: Standard Weight 184 lb Height 67 in Body Mass Index Calculated 28.82 kg/m2 Body Surface Area Calculated 1.95 m2 :29 Temperature 97.9 f Comments: Method: Oral Pulse 64 /min Comments: Pattern: Regular Respiration Rate 20 /min Comments: Pattern: Unlabored BP Systolic 98 mm[Hg] Comments: Patient Position: Sitting; Cuff Location: Left Arm; Cuff Size: Standard BP Diastolic 60 mm[Hg] Comments: Patient Position: Sitting; Cuff Location: Left Arm; Cuff Size: Standard Weight 184 lb Height 67 in Body Mass Index Calculated 28.82 kg/m2 Body Surface Area Calculated 1.95 m2 :22 Temperature 97.6 f Comments: Method: Oral Pulse 64 /min Comments: Pattern: Regular Respiration Rate 18 /min Comments: Pattern: Unlabored BP Systolic 118 mm[Hg] Comments: Patient Position: Sitting; Cuff Location: Left Arm; Cuff Size: Standard BP Diastolic 70 mm[Hg] Comments: Patient Position: Sitting; Cuff Location: Left Arm; Cuff Size: Standard Weight 197 lb Height 67 in Body Mass Index Calculated 30.85 kg/m2 Body Surface Area Calculated 2.01 m2 :59 Temperature 98.2 f Comments: Method: Oral Pulse 72 /min Comments: Pattern: Regular Respiration Rate 20 /min Comments: Pattern: Unlabored BP Systolic 122 mm[Hg] Comments: Patient Position: Sitting; Cuff Location: Left Arm; Cuff Size: Large BP Diastolic 62 mm[Hg] Comments: Patient Position: Sitting; Cuff Location: Left Arm; Cuff Size: Large Weight 202.0625 lb Height 67 in Body Mass Index Calculated 31.65 kg/m2 Body Surface Area Calculated 2.03 m2 :14 Temperature 97.6 f Comments: Method: Oral Pulse 64 /min Comments: Pattern: Regular Respiration Rate 18 /min Comments: Pattern: Unlabored BP Systolic 120 mm[Hg] Comments: Patient Position: Sitting; Cuff Location: Left Arm; Cuff Size: Standard BP Diastolic 78 mm[Hg] Comments: Patient Position: Sitting; Cuff Location: Left Arm; Cuff Size: Standard Weight 208 lb Height 67 in Body Mass Index Calculated 32.58 kg/m2 Body Surface Area Calculated 2.06 m2 :31 Temperature 98.1 f Comments: Method: Oral Pulse 68 /min Comments: Pattern: Regular Respiration Rate 20 /min Comments: Pattern: Unlabored BP Systolic 122 mm[Hg] Comments: Patient Position: Sitting; Cuff Location: Left Arm; Cuff Size: Standard BP Diastolic 78 mm[Hg] Comments: Patient Position: Sitting; Cuff Location: Left Arm; Cuff Size: Standard Weight 208 lb Height 67 in Body Mass Index Calculated 32.58 kg/m2 Body Surface Area Calculated 2.06 m2 :49 Temperature 98.2 f Comments: Method: Oral Pulse 64 /min Comments: Pattern: Regular Respiration Rate 18 /min Comments: Pattern: Unlabored BP Systolic 104 mm[Hg] Comments: Patient Position: Sitting; Cuff Location: Left Arm; Cuff Size: Standard BP Diastolic 70 mm[Hg] Comments: Patient Position: Sitting; Cuff Location: Left Arm; Cuff Size: Standard Weight 218 lb Height 67 in Body Mass Index Calculated 34.14 kg/m2 Body Surface Area Calculated 2.1 m2 :16 Temperature 97.9 f Comments: Method: Oral Pulse 68 /min Comments: Pattern: Regular Respiration Rate 20 /min Comments: Pattern: Unlabored BP Systolic 120 mm[Hg] Comments: Patient Position: Sitting; Cuff Location: Left Arm; Cuff Size: Standard BP Diastolic 74 mm[Hg] Comments: Patient Position: Sitting; Cuff Location: Left Arm; Cuff Size: Standard Weight 218 lb Height 67 in Body Mass Index Calculated 34.14 kg/m2 Body Surface Area Calculated 2.1 m2 :31 O2 SAT 96 % Comments: Room air :51 Temperature 97.7 f Comments: Method: Oral Pulse 64 /min Comments: Pattern: Regular Respiration Rate 20 /min Comments: Pattern: Unlabored BP Systolic 118 mm[Hg] Comments: Patient Position: Sitting; Cuff Location: Left Arm; Cuff Size: Standard BP Diastolic 76 mm[Hg] Comments: Patient Position: Sitting; Cuff Location: Left Arm; Cuff Size: Standard Weight 218 lb Height 67 in Body Mass Index Calculated 34.14 kg/m2 Body Surface Area Calculated 2.1 m2 :52 Temperature 98.5 f Pulse 64 /min Comments: Pattern: Regular Respiration Rate 18 /min Comments: Pattern: Unlabored BP Systolic 112 mm[Hg] Comments: Patient Position: Sitting; Cuff Location: Left Arm; Cuff Size: Standard BP Diastolic 62 mm[Hg] Comments: Patient Position: Sitting; Cuff Location: Left Arm; Cuff Size: Standard Weight 212 lb :48 Pulse 60 /min Comments: Pattern: Regular Respiration Rate 18 /min Comments: Pattern: Unlabored BP Systolic 122 mm[Hg] Comments: Patient Position: Sitting; Cuff Location: Left Arm; Cuff Size: Standard BP Diastolic 74 mm[Hg] Comments: Patient Position: Sitting; Cuff Location: Left Arm; Cuff Size: Standard Weight 207 lb :48 Weight 207.25 lb :07 Pulse 80 /min Comments: Pattern: Regular Respiration Rate 18 /min Comments: Pattern: Unlabored BP Systolic 112 mm[Hg] Comments: Patient Position: Sitting; Cuff Location: Right Arm; Cuff Size: Standard BP Diastolic 62 mm[Hg] Comments: Patient Position: Sitting; Cuff Location: Right Arm; Cuff Size: Standard Weight 274 lb :55 Temperature 97.1 f Comments: Method: Oral Pulse 76 /min Comments: Pattern: Regular Respiration Rate 18 /min Comments: Pattern: Unlabored BP Systolic 128 mm[Hg] Comments: Patient Position: Sitting; Cuff Location: Left Arm; Cuff Size: Standard BP Diastolic 84 mm[Hg] Comments: Patient Position: Sitting; Cuff Location: Left Arm; Cuff Size: Standard Weight 219 lb :55 Temperature 98.3 f Comments: Method: Oral Pulse 70 /min Comments: Pattern: Regular Respiration Rate 18 /min Comments: Pattern: Unlabored BP Systolic 134 mm[Hg] Comments: Patient Position: Sitting; Cuff Location: Left Arm; Cuff Size: Standard BP Diastolic 80 mm[Hg] Comments: Patient Position: Sitting; Cuff Location: Left Arm; Cuff Size: Standard :06 Pulse 70 /min Comments: Pattern: Irregular Respiration Rate 18 /min Comments: Pattern: Unlabored BP Systolic 148 mm[Hg] Comments: Patient Position: Sitting; Cuff Location: Left Arm; Cuff Size: Standard BP Diastolic 80 mm[Hg] Comments: Patient Position: Sitting; Cuff Location: Left Arm; Cuff Size: Standard Weight 219 lb :13 Pulse 60 /min Comments: Pattern: Regular Respiration Rate 18 /min Comments: Pattern: Unlabored BP Systolic 116 mm[Hg] Comments: Patient Position: Sitting; Cuff Location: Left Arm; Cuff Size: Standard BP Diastolic 78 mm[Hg] Comments: Patient Position: Sitting; Cuff Location: Left Arm; Cuff Size: Standard Weight 221 lb :36 Pulse 74 /min Comments: Pattern: Regular Respiration Rate 18 /min Comments: Pattern: Unlabored BP Systolic 120 mm[Hg] Comments: Patient Position: Sitting; Cuff Location: Left Arm; Cuff Size: Standard BP Diastolic 76 mm[Hg] Comments: Patient Position: Sitting; Cuff Location: Left Arm; Cuff Size: Standard Weight 211 lb Height 0 in Head Circumference 0.00 cm :02 Pulse 68 /min Comments: Pattern: Regular Respiration Rate 16 /min Comments: Pattern: Unlabored BP Systolic 114 mm[Hg] Comments: Patient Position: Sitting; Cuff Location: Left Arm; Cuff Size: Standard BP Diastolic 78 mm[Hg] Comments: Patient Position: Sitting; Cuff Location: Left Arm; Cuff Size: Standard Weight 209 lb Height 0 in Head Circumference 0.00 cm :09 Temperature 98.2 f Comments: Method: Oral Pulse 74 /min Comments: Pattern: Regular Respiration Rate 16 /min Comments: Pattern: Unlabored BP Systolic 116 mm[Hg] Comments: Patient Position: Sitting; Cuff Location: Left Arm; Cuff Size: Standard BP Diastolic 78 mm[Hg] Comments: Patient Position: Sitting; Cuff Location: Left Arm; Cuff Size: Standard Weight 217.0125 lb Height 0 in Head Circumference 0.00 cm :56 Pulse 66 /min Comments: Pattern: Regular Respiration Rate 16 /min Comments: Pattern: Unlabored BP Systolic 104 mm[Hg] Comments: Patient Position: Sitting; Cuff Location: Left Arm; Cuff Size: Standard BP Diastolic 78 mm[Hg] Comments: Patient Position: Sitting; Cuff Location: Left Arm; Cuff Size: Standard Weight 213.125 lb Height 67 in Body Mass Index Calculated 33.38 kg/m2 Body Surface Area Calculated 2.08 m2 Head Circumference 0.00 cm :17 Temperature 98.2 f Comments: Method: Oral Pulse 60 /min Comments: Pattern: Regular Respiration Rate 18 /min Comments: Pattern: Unlabored BP Systolic 120 mm[Hg] Comments: Patient Position: Sitting; Cuff Location: Left Arm; Cuff Size: Standard BP Diastolic 78 mm[Hg] Comments: Patient Position: Sitting; Cuff Location: Left Arm; Cuff Size: Standard Weight 205 lb Height 0 in Head Circumference 0.00 cm :30 Temperature 98.4 f Comments: Method: Oral Pulse 60 /min Comments: Pattern: Regular Respiration Rate 18 /min Comments: Pattern: Unlabored BP Systolic 110 mm[Hg] Comments: Patient Position: Sitting; Cuff Location: Left Arm; Cuff Size: Standard BP Diastolic 64 mm[Hg] Comments: Patient Position: Sitting; Cuff Location: Left Arm; Cuff Size: Standard Weight 177 lb Height 67 in Body Mass Index Calculated 27.72 kg/m2 Body Surface Area Calculated 1.92 m2 Head Circumference 0.00 cm :09 Pulse 78 /min Comments: Pattern: Regular Respiration Rate 18 /min Comments: Pattern: Unlabored O2 SAT 97 % Comments: Room air BP Systolic 118 mm[Hg] Comments: Patient Position: Sitting; Cuff Location: Left Arm; Cuff Size: Standard BP Diastolic 62 mm[Hg] Comments: Patient Position: Sitting; Cuff Location: Left Arm; Cuff Size: Standard Weight 191.5 lb Height 0 in Head Circumference 0.00 cm :04 Temperature 97.8 f Comments: Method: Oral Pulse 64 /min Comments: Pattern: Regular Respiration Rate 20 /min Comments: Pattern: Unlabored BP Systolic 128 mm[Hg] Comments: Patient Position: Sitting; Cuff Location: Left Arm; Cuff Size: Standard BP Diastolic 68 mm[Hg] Comments: Patient Position: Sitting; Cuff Location: Left Arm; Cuff Size: Standard Weight 214.5 lb Height 0 in Head Circumference 0.00 cm :39 Temperature 97.8 f Comments: Method: Oral Pulse 60 /min Comments: Pattern: Regular Respiration Rate 18 /min Comments: Pattern: Unlabored BP Systolic 122 mm[Hg] Comments: Patient Position: Sitting; Cuff Location: Right Arm; Cuff Size: Large BP Diastolic 56 mm[Hg] Comments: Patient Position: Sitting; Cuff Location: Right Arm; Cuff Size: Large Weight 214.5 lb Height 0 in Head Circumference 0.00 cm :51 Pulse 70 /min Comments: Pattern: Regular Respiration Rate 22 /min Comments: Pattern: Undefined BP Systolic 110 mm[Hg] Comments: Patient Position: Sitting; Cuff Location: Undefined; Cuff Size: Undefined BP Diastolic 70 mm[Hg] Comments: Patient Position: Sitting; Cuff Location: Undefined; Cuff Size: Undefined Weight 0 lb Height 0 in Head Circumference 0.00 cm :01 Temperature 97.9 f Comments: Method: Oral Pulse 57 /min Comments: Pattern: Regular Respiration Rate 17 /min Comments: Pattern: Unlabored O2 SAT 94 % Comments: Room air BP Systolic 118 mm[Hg] Comments: Patient Position: Sitting; Cuff Location: Left Arm; Cuff Size: Standard BP Diastolic 64 mm[Hg] Comments: Patient Position: Sitting; Cuff Location: Left Arm; Cuff Size: Standard Weight 227 lb Height 0 in Head Circumference 0.00 cm :43 Temperature 97.9 f Comments: Method: Oral Pulse 56 /min Comments: Pattern: Regular Respiration Rate 20 /min Comments: Pattern: Unlabored BP Systolic 120 mm[Hg] Comments: Patient Position: Sitting; Cuff Location: Right Arm; Cuff Size: Standard BP Diastolic 64 mm[Hg] Comments: Patient Position: Sitting; Cuff Location: Right Arm; Cuff Size: Standard Weight 0 lb Height 0 in Head Circumference 0.00 cm :10 Temperature 98.6 f Comments: Method: Oral Pulse 60 /min Comments: Pattern: Regular Respiration Rate 22 /min Comments: Pattern: Unlabored O2 SAT 97 % Comments: Room air BP Systolic 120 mm[Hg] Comments: Patient Position: Sitting; Cuff Location: Left Arm; Cuff Size: Standard BP Diastolic 76 mm[Hg] Comments: Patient Position: Sitting; Cuff Location: Left Arm; Cuff Size: Standard Weight 227 lb Height 0 in Head Circumference 0.00 cm :44 Temperature 97.7 f Comments: Method: Oral Pulse 58 /min Comments: Pattern: Regular Respiration Rate 18 /min Comments: Pattern: Unlabored BP Systolic 114 mm[Hg] Comments: Patient Position: Sitting; Cuff Location: Left Arm; Cuff Size: Standard BP Diastolic 62 mm[Hg] Comments: Patient Position: Sitting; Cuff Location: Left Arm; Cuff Size: Standard Weight 226 lb Height 66.5 in Body Mass Index Calculated 35.93 kg/m2 Body Surface Area Calculated 2.12 m2 Head Circumference 0.00 cm :03 Temperature 98.7 f Comments: Method: Oral Pulse 58 /min Comments: Pattern: Regular Respiration Rate 18 /min Comments: Pattern: Unlabored O2 SAT 93 % Comments: Room air BP Systolic 124 mm[Hg] Comments: Patient Position: Sitting; Cuff Location: Left Arm; Cuff Size: Standard BP Diastolic 72 mm[Hg] Comments: Patient Position: Sitting; Cuff Location: Left Arm; Cuff Size: Standard Weight 226 lb Height 66.5 in Body Mass Index Calculated 35.93 kg/m2 Body Surface Area Calculated 2.12 m2 Head Circumference 0.00 cm :43 Temperature 97.1 f Comments: Method: Oral Pulse 60 /min Comments: Pattern: Regular Respiration Rate 20 /min Comments: Pattern: Undefined BP Systolic 110 mm[Hg] Comments: Patient Position: Sitting; Cuff Location: Undefined; Cuff Size: Undefined BP Diastolic 62 mm[Hg] Comments: Patient Position: Sitting; Cuff Location: Undefined; Cuff Size: Undefined Weight 0 lb Height 0 in Head Circumference 0.00 cm :19 Pulse 60 /min Comments: Pattern: Regular Respiration Rate 20 /min Comments: Pattern: Undefined BP Systolic 102 mm[Hg] Comments: Patient Position: Sitting; Cuff Location: Left Arm; Cuff Size: Standard BP Diastolic 66 mm[Hg] Comments: Patient Position: Sitting; Cuff Location: Left Arm; Cuff Size: Standard Weight 226 lb Height 66.5 in Body Mass Index Calculated 35.93 kg/m2 Body Surface Area Calculated 2.12 m2 Head Circumference 0.00 cm :32 Pulse 56 /min Comments: Pattern: Regular Respiration Rate 16 /min Comments: Pattern: Unlabored BP Systolic 104 mm[Hg] Comments: Patient Position: Sitting; Cuff Location: Left Arm; Cuff Size: Standard BP Diastolic 58 mm[Hg] Comments: Patient Position: Sitting; Cuff Location: Left Arm; Cuff Size: Standard Weight 216.4375 lb Height 68 in Body Mass Index Calculated 32.91 kg/m2 Body Surface Area Calculated 2.11 m2 Head Circumference 0.00 cm Results Date Description Value Details [id number] HEPATIC FUNCTION PANEL Comments: PATIENT NOT FASTINGPERFORMED BY: Nimbit Mcupfl6961 [facility] [id number] ([id number]) ALT (SGPT) 14 [iU]/L (Normal) Range: 0-44 AST (SGOT) 22 [iU]/L (Normal) Range: 0-40 Alkaline Phosphatase 158 [iU]/L (Abnormal) Range: 39-117 Bilirubin, Direct 0.35 mg/dL (Normal) Range: 0.00-0.40 Bilirubin, Total 0.7 mg/dL (Normal) Range: 0.0-1.2 Protein, Total 7.0 g/dL (Normal) Range: 6.0-8.5 :09 CBC WITH MANUAL DIFF ([id number]) Comments: standing order q 3 months; PATIENT NOT FASTINGPERFORMED BY: [employer] [id number] [facility] [id number] Hematology Comments: Note: (Normal) Comments: Verified by microscopic examination. Immature Grans (Abs) 0.0 {x10E3/uL} (Normal) Range: 0.0-0.1 Immature Granulocytes 0 % (Normal) Baso (Absolute) 0.0 {x10E3/uL} (Normal) Range: 0.0-0.2 Eos (Absolute) 0.1 {x10E3/uL} (Normal) Range: 0.0-0.4 Monocytes(Absolute) 0.5 {x10E3/uL} (Normal) Range: 0.1-0.9 Lymphs (Absolute) 1.2 {x10E3/uL} (Normal) Range: 0.7-3.1 Neutrophils (Absolute) 3.6 {x10E3/uL} (Normal) Range: 1.4-7.0 Basos 0 % (Normal) Eos 2 % (Normal) Monocytes 10 % (Normal) Lymphs 22 % (Normal) Neutrophils 66 % (Normal) Platelets 180 {x10E3/uL} (Normal) Range: 150-379 RDW 15.1 % (Normal) Range: 12.3-15.4 MCHC 33.4 g/dL (Normal) Range: 31.5-35.7 MCH 32.5 pg (Normal) Range: 26.6-33.0 MCV 97 fL (Normal) Range: 79-97 Hematocrit 36.5 % (Abnormal) Range: 37.5-51.0 Hemoglobin 12.2 g/dL (Abnormal) Range: 13.0-17.7 RBC 3.75 {x10E6/uL} (Abnormal) Range: 4.14-5.80 WBC 5.6 {x10E3/uL} (Normal) Range: 3.4-10.8 26-Fga-324566:09 MAGNESIUM (31072) Comments: standing order q 3 months; PATIENT NOT FASTINGPERFORMED BY: [employer] CommunicationsAstra Health CenterFtxzug2140 [facility] [id number] Magnesium 2.2 mg/dL (Normal) Range: 1.6-2.3 41-Hza-809494:09 Renal function Panel (81210) Comments: standing order q 3 months; PATIENT NOT FASTINGPERFORMED BY: [employer] CommunicationsAstra Health CenterCbimpt4795 [facility] [id number] Albumin 4.0 g/dL (Normal) Range: 3.5-4.8 Phosphorus 3.9 mg/dL (Normal) Range: 2.5-4.5 Calcium 9.1 mg/dL (Normal) Range: 8.6-10.2 Carbon Dioxide, Total 23 mmol/L (Normal) Range: 20-29 Chloride 93 mmol/L (Abnormal) Range: 96-106 Potassium 4.1 mmol/L (Normal) Range: 3.5-5.2 Sodium 134 mmol/L (Normal) Range: 134-144 BUN/Creatinine Ratio 20 (Normal) Range: 10-24 eGFR If Africn Am 35 mL/min/1.73 (Abnormal) eGFR If NonAfricn Am 30 mL/min/1.73 (Abnormal) Creatinine 2.05 mg/dL (Abnormal) Range: 0.76-1.27 BUN 41 mg/dL (Abnormal) Range: 8-27 Glucose 184 mg/dL (Abnormal) Range: 65-99 20-Lle-408559:09 PREALBUMIN (78711) Comments: PATIENT NOT FASTINGPERFORMED BY: [facility] [id number] Patel [facility] [id number] Prealbumin 23 mg/dL (Normal) Range: 9-32 61-Eul-186048:00 Basic Metabolic Profile (BMP) Comments: REDRAW. PREVIOUS SPECIMEN REJECTED DUE TOHEMOLYSIS. 10/16/181430 Cinthia Mcneal.'TROP' Serial specimen #1, #2, #3, or #4: 1[facility] [address] [place], [place], [id number] GAP 10 (Normal) Range: 5-15 CO2 26.0 mmol/L (Normal) Range: 21.0-32.0 CL 94 mmol/L (Abnormal) Range: 98-107 K 4.8 mmol/L (Normal) Range: 3.5-5.1 NA 130 mmol/L (Abnormal) Range: 136-145 CA 8.4 mg/dL (Abnormal) Range: 8.5-10.1 BUN/CRE 17.8 {RATIO} (Normal) Range: 10-20 Estimated CRCL 24.12 ml/min (Normal) EST GFR - AA 34 mL/min (Abnormal) Comments: GFR Calc EST GFR 29 mL/min (Abnormal) Comments: Non- GFR Calc CREAT,SERUM 2.36 mg/dL (Abnormal) Range: 0.70-1.30 Comments: The validity of the calculated GFR AND GFRAA in patients over70 years has not been determined. Clinical correlation isessential. BUN 42 mg/dL (Abnormal) Range: 7-18 GLU 150 mg/dL (Abnormal) Range: 74-106 Comments: Fasting Glucose result greater than or equal to 126 mg/dLsuggests DIABETES MELLITUS per A.D.A. criteria.Please note revised GLUCOSE reference range pxbxynzhw83/02/2018. 13-Cnr-423625:00 Magnesium Comments: REDRAW. PREVIOUS SPECIMEN REJECTED DUE TOHEMOLYSIS. 10/16/181430 Cinthia Mcneal.'TROP' Serial specimen #1, #2, #3, or #4: [address] [place] [address] [id number] [place], [place], [phone]) MG 2.1 mg/dL (Normal) Range: 1.6-2.6 52-Afe-015702:00 Troponin-I Comments: REDRAW. PREVIOUS SPECIMEN REJECTED DUE TOHEMOLYSIS. 10/16/18 1431 Cinthia Mcneal.'TROP' Serial specimen #1, #2, #3, or #4: [address] [place] [address] [id number] [place], [place], [address] TROPONIN-I 0.022 ng/mL (Normal) Comments: TROPONIN-I EXPECTED VALUES <0.045 Negative 0.045 - 0.590 Consistent with Cardiac Damage > OR = 0.600 Critical Value Not every elevated troponin is indicative of NH. T hesevalues should be used with clinical judgement in examiningthe patient's clinical picture for diagnosis. To establisha diagnosis of NH versus myocardial injury, there must be ademonstrated rise and/ or fall in the troponin values, inaddition to ischemic symptoms, EKG changes, new regionalwall motion abnormality, and/or angiographical evidence. PLEASE NOTE: REFERENCE RANGES EDITED 03/11/1816-Oct-201881-Bwl-408699:00 CBC W/Diff, Automated Comments: [facility] [address] [place], [place], [address](352) Absolute Lymph 1.37 {X10_3/ul} (Normal) Range: 0.83-4.51 Absolute Neut 6.8 {X10_3/uL} (Normal) Range: 2.0-7.7 IM GRAN % 0.400 % (Normal) Range: 0.0-0.9 Comments: IG% - Immature Granulocytes (promyelocytes, myelocytes andmetamyelocytes) > 1% indicates that a LEFT SHIFT is Present. BASO% 0.4 % (Normal) Range: 0-1 EO% 2.2 % (Normal) Range: 0-5 MONO% 9.8 % (Normal) Range: 0-10 LY% 14.6 % (Abnormal) Range: 19-41 NEUT% 72.6 % (Abnormal) Range: 47-70 MPV 9.7 fL (Normal) Range: 6.2-12.0 PLT 192 K/mm3 (Normal) Range: 150-450 RDW SD 50.5 fL (Abnormal) Range: 35.1-43.9 RDW CV 14.2 % (Normal) Range: 11.6-14.6 MCHC 33.8 {g/gl} (Normal) Range: 32-36 MCH 33.2 pg (Abnormal) Range: 27.0-32.0 MCV 98.1 fL (Abnormal) Range: 80-94 HCT 42.0 % (Normal) Range: 40-54 HGB 14.2 g/dL (Normal) Range: 13.0-16.5 RBC 4.28 {M/mm3} (Abnormal) Range: 4.6-6.2 WBC 9.4 K/mm3 (Normal) Range: 4.4-11.0 :13 Basic Metabolic Profile (BMP) Comments: [facility] [address] [place], [place], [phone] GAP 12 (Normal) Range: 5-15 CO2 22.0 mmol/L (Normal) Range: 21.0-32.0 CL 101 mmol/L (Normal) Range: 98-107 K 4.6 mmol/L (Normal) Range: 3.5-5.1 NA 135 mmol/L (Abnormal) Range: 136-145 CA 8.4 mg/dL (Abnormal) Range: 8.5-10.1 BUN/CRE 10.7 {RATIO} (Normal) Range: 10-20 Estimated CRCL 33.68 ml/min (Normal) EST GFR - AA 51 mL/min (Abnormal) Comments: GFR Calc EST GFR 42 mL/min (Abnormal) Comments: Non- GFR Calc CREAT,SERUM 1.69 mg/dL (Abnormal) Range: 0.70-1.30 Comments: The validity of the calculated GFR AND GFRAA in patients over70 years has not been determined. Clinical correlation isessential. BUN 18 mg/dL (Normal) Range: 7-18 GLU 181 mg/dL (Abnormal) Range: 74-106 Comments: Fasting Glucose result greater than or equal to 126 mg/dLsuggests DIABETES MELLITUS per A.D.A. criteria.Please note revised GLUCOSE reference range drbxfefnb53/02/2018. :13 CBC W/Diff, Automated Comments: [facility] [address] [place], [address] Absolute Lymph 1.40 {X10_3/ul} (Normal) Range: 0.83-4.51 Absolute Neut 4.9 {X10_3/uL} (Normal) Range: 2.0-7.7 IM GRAN % 0.600 % (Normal) Range: 0.0-0.9 Comments: IG% - Immature Granulocytes (promyelocytes, myelocytes andmetamyelocytes) > 1% indicates that a LEFT SHIFT is Present. BASO% 0.3 % (Normal) Range: 0-1 EO% 3.1 % (Normal) Range: 0-5 MONO% 9.2 % (Normal) Range: 0-10 LY% 19.4 % (Normal) Range: 19-41 NEUT% 67.4 % (Normal) Range: 47-70 MPV 10.3 fL (Normal) Range: 6.2-12.0 PLT 127 K/mm3 (Abnormal) Range: 150-450 RDW SD 51.1 fL (Abnormal) Range: 35.1-43.9 RDW CV 14.4 % (Normal) Range: 11.6-14.6 MCHC 33.5 {g/gl} (Normal) Range: 32-36 MCH 33.7 pg (Abnormal) Range: 27.0-32.0 MCV 100.5 fL (Abnormal) Range: 80-94 HCT 36.7 % (Abnormal) Range: 40-54 HGB 12.3 g/dL (Abnormal) Range: 13.0-16.5 RBC 3.65 {M/mm3} (Abnormal) Range: 4.6-6.2 WBC 7.2 K/mm3 (Normal) Range: 4.4-11.0 :13 Troponin-I Comments: [facility] [address] [place], [address] TROPONIN-I 0.030 ng/mL (Normal) Comments: TROPONIN-I EXPECTED VALUES <0.045 Negative 0.045 - 0.590 Consistent with Cardiac Damage > OR = 0.600 Critical Value Not every elevated troponin is indicative of NH. T hesevalues should be used with clinical judgement in examiningthe patient's clinical picture for diagnosis. To establisha diagnosis of NH versus myocardial injury, there must be ademonstrated rise and/ or fall in the troponin values, inaddition to ischemic symptoms, EKG changes, new regionalwall motion abnormality, and/or angiographical evidence. PLEASE NOTE: REFERENCE RANGES EDITED 03/11/1830-Sep-20187:00 Urinalysis, Complete Comments: Order Date: 09/30/18Has pt arrived? YHow was Urine Obtained? 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 [place], [place], [id number] MUCUS, URINE 0 SEEN {/hpf} (Normal) BACTERIA 0 SEEN {/hpf} (Normal) SQUAM EPI 0-5 SEEN {/hpf} (Normal) Range: 0-5 RBC-UA 0 SEEN {/hpf} (Normal) Range: 0-5 WBC 0-5 SEEN {/hpf} (Normal) Range: 0-5 LEUK ESTERASE 25 /ul (Abnormal) OCCULT BLOOD-UR Negative /ul (Normal) NITRITE UR Negative (Normal) UROBILI Normal mg/dL (Normal) PROT DIPSTX 30 mg/dL (Abnormal) pH UR 5.0 (Normal) Range: 5.0 - 8.0 SP.GR. DIPSTX 1.015 (Normal) Range: 1.002-1.030 KETONE UR Negative mg/dL (Normal) BILIRUBIN URINE Negative mg/dL (Normal) GLUCOSE, UR Normal mg/dL (Normal) CLARITY Clear (Normal) COLOR Yellow (Normal) 03-Iut-97453:40 CBC W/Diff, Automated Comments: [facility] Xvcmxwdtoi1465 [facility] [address] [place], [place], [id number] Absolute Lymph 1.74 {X10_3/ul} (Normal) Range: 0.83-4.51 Absolute Neut 5.1 {X10_3/uL} (Normal) Range: 2.0-7.7 IM GRAN % 0.300 % (Normal) Range: 0.0-0.9 Comments: IG% - Immature Granulocytes (promyelocytes, myelocytes andmetamyelocytes) > 1% indicates that a LEFT SHIFT is Present. BASO% 0.3 % (Normal) Range: 0-1 EO% 0.8 % (Normal) Range: 0-5 MONO% 9.1 % (Normal) Range: 0-10 LY% 23.0 % (Normal) Range: 19-41 NEUT% 66.5 % (Normal) Range: 47-70 MPV 9.8 fL (Normal) Range: 6.2-12.0 PLT 180 K/mm3 (Normal) Range: 150-450 RDW SD 44.0 fL (Abnormal) Range: 35.1-43.9 RDW CV 13.2 % (Normal) Range: 11.6-14.6 MCHC 35.2 {g/gl} (Normal) Range: 32-36 MCH 33.9 pg (Abnormal) Range: 27.0-32.0 MCV 96.2 fL (Abnormal) Range: 80-94 HCT 35.8 % (Abnormal) Range: 40-54 HGB 12.6 g/dL (Abnormal) Range: 13.0-16.5 RBC 3.72 {M/mm3} (Abnormal) Range: 4.6-6.2 WBC 7.6 K/mm3 (Normal) Range: 4.4-11.0 53-Ldc-49732:40 Comprehensive Metabolic Profil Comments: [facility] [address] [place], [place], [phone] GAP 13 (Normal) Range: 5-15 CO2 27.0 mmol/L (Normal) Range: 21.0-32.0 CL 88 mmol/L (Abnormal) Range: 98-107 K 4.0 mmol/L (Normal) Range: 3.5-5.1 NA 128 mmol/L (Abnormal) Range: 136-145 T BILI 0.80 mg/dL (Normal) Range: 0.20-1.00 ALT 25 U/L (Normal) Range: 16-61 ALK P 132 U/L (Abnormal) Range: 45-117 AST 33 U/L (Normal) Range: 15-37 CA 9.0 mg/dL (Normal) Range: 8.5-10.1 A/G 0.8 {RATIO} (Abnormal) Range: 0.9-2.4 GLOB 4.2 g/dL (Normal) Range: 2.2-4.2 ALB 3.5 g/dL (Normal) Range: 3.2-5.0 T PROT 7.7 g/dL (Normal) Range: 6.4-8.2 BUN/CRE 12.6 {RATIO} (Normal) Range: 10-20 Estimated CRCL 25.52 ml/min (Normal) EST GFR - AA 37 mL/min (Abnormal) Comments: GFR Calc EST GFR 30 mL/min (Abnormal) Comments: Non- GFR Calc CREAT,SERUM 2.23 mg/dL (Abnormal) Range: 0.70-1.30 Comments: The validity of the calculated GFR AND GFRAA in patients over70 years has not been determined. Clinical correlation isessential. BUN 28 mg/dL (Abnormal) Range: 7-18 GLU 149 mg/dL (Abnormal) Range: 74-106 Comments: Fasting Glucose result greater than or equal to 126 mg/dLsuggests DIABETES MELLITUS per A.D.A. criteria.Please note revised GLUCOSE reference range fdfvefdus38/02/2018. 76-Stx-11278:40 Lipase Comments: [facility] [address] [place], [place], [address] LIPASE 114 U/L (Normal) Range: 73-393 09-Ffe-666537:18 BNP,B-Type NATRIURETIC PEPTIDE Comments: [facility] [address] [place], [place], [id number] B-TYPE JUSTIN PEP 734.1 pg/mL (Abnormal) Range: 0-100 61-Zqt-183331:18 CBC-Complete Blood Cnt No Diff Comments: [facility] [address] [place], [place], [phone] MPV 10.4 fL (Normal) Range: 6.2-12.0 PLT 142 K/mm3 (Abnormal) Range: 150-450 RDW SD 47.1 fL (Abnormal) Range: 35.1-43.9 RDW CV 13.5 % (Normal) Range: 11.6-14.6 MCHC 33.9 {g/gl} (Normal) Range: 32-36 MCH 33.6 pg (Abnormal) Range: 27.0-32.0 MCV 99.2 fL (Abnormal) Range: 80-94 HCT 36.3 % (Abnormal) Range: 40-54 HGB 12.3 g/dL (Abnormal) Range: 13.0-16.5 RBC 3.66 {M/mm3} (Abnormal) Range: 4.6-6.2 WBC 7.2 K/mm3 (Normal) Range: 4.4-11.0 89-Dxz-788744:18 Comprehensive Metabolic Profil Comments: 'TROP' Serial specimen #1, #2, #3, or #4: [address] [place] [address] [address] [place], [address] GAP 10 (Normal) Range: 5-15 CO2 29.0 mmol/L (Normal) Range: 21.0-32.0 CL 94 mmol/L (Abnormal) Range: 98-107 K 4.5 mmol/L (Normal) Range: 3.5-5.1 NA 133 mmol/L (Abnormal) Range: 136-145 T BILI 0.70 mg/dL (Normal) Range: 0.20-1.00 ALT 25 U/L (Normal) Range: 16-61 ALK P 136 U/L (Abnormal) Range: 45-117 AST 27 U/L (Normal) Range: 15-37 CA 9.2 mg/dL (Normal) Range: 8.5-10.1 A/G 0.9 {RATIO} (Normal) Range: 0.9-2.4 GLOB 4.2 g/dL (Normal) Range: 2.2-4.2 ALB 3.6 g/dL (Normal) Range: 3.2-5.0 T PROT 7.8 g/dL (Normal) Range: 6.4-8.2 BUN/CRE 13.1 {RATIO} (Normal) Range: 10-20 EST GFR - AA 39 mL/min (Abnormal) Comments: GFR Calc EST GFR 32 mL/min (Abnormal) Comments: Non- GFR Calc CREAT,SERUM 2.14 mg/dL (Abnormal) Range: 0.70-1.30 Comments: The validity of the calculated GFR AND GFRAA in patients over70 years has not been determined. Clinical correlation isessential. BUN 28 mg/dL (Abnormal) Range: 7-18 GLU 197 mg/dL (Abnormal) Range: 74-106 Comments: Fasting Glucose result greater than or equal to 126 mg/dLsuggests DIABETES MELLITUS per A.D.A. criteria.Please note revised GLUCOSE reference range mqijhfkgh61/02/2018. 04-Odp-474710:18 KEPPRA (LEVETIRACETAM) Comments: [facility] (refer to report for specific site)refer to report for address and phone number TANNER Comments: TEST RESULT LIMITSLevetiracetam (Keppra), Ulyssesacetam, S 29.6 ug/mL 10.0 - 40.0 TESTING PERFO (Normal) [facility]MED AT [facility]. ORIGINAL REPORT ON FILE IN LAB CONTAINS ADDITIONAL TEST SITE INFORMATION. 02-Jeq-284729:18 Thyroid Stim Hormone (TSH) Comments: 'TROP' Serial specimen #1, #2, #3, or #4: [address] [place] [address] [address] [facility] [place], [address] TSH 2.73 {uIU/mL} (Normal) Range: 0.358-3.74 28-Gxn-315005:18 Troponin-I Comments: 'TROP' Serial specimen #1, #2, #3, or #4: [address] [place] [address] [address] [facility] [place], [place], [phone] TROPONIN-I 0.027 ng/mL (Normal) Comments: TROPONIN-I EXPECTED VALUES <0.045 Negative 0.045 - 0.590 Consistent with Cardiac Damage > OR = 0.600 Critical Value Not every elevated troponin is indicative of NH. T hesevalues should be used with clinical judgement in examiningthe patient's clinical picture for diagnosis. To establisha diagnosis of NH versus myocardial injury, there must be ademonstrated rise and/ or fall in the troponin values, inaddition to ischemic symptoms, EKG changes, new regionalwall motion abnormality, and/or angiographical evidence. PLEASE NOTE: REFERENCE RANGES EDITED 18 91-Rad-615386:59 Metabolic Panel, Basic Comments: PATIENT NOT FASTINGPERFORMED BY: [facility] [id number] [place] [id number] ([id number]) Calcium 9.0 mg/dL (Normal) Range: 8.6-10.2 Carbon Dioxide, Total 23 mmol/L (Normal) Range: 20-29 Chloride 96 mmol/L (Normal) Range: 96-106 Potassium 4.1 mmol/L (Normal) Range: 3.5-5.2 Sodium 137 mmol/L (Normal) Range: 134-144 BUN/Creatinine Ratio 14 (Normal) Range: 10-24 eGFR If Africn Am 45 mL/min/1.73 (Abnormal) eGFR If NonAfricn Am 39 mL/min/1.73 (Abnormal) Creatinine 1.66 mg/dL (Abnormal) Range: 0.76-1.27 BUN 23 mg/dL (Normal) Range: 8-27 Glucose 177 mg/dL (Abnormal) Range: 65-99 52-Qyp-603749:06 Lipid Profile Comments: [facility] [address] [place], [place], [address] VLDL 20 mg/dL (Normal) Range: 5-40 LDL 49 mg/dL (Normal) Range: 0-130 HDL 75 mg/dL (Normal) Comments: The drugs N-Acetylcysteine and Metamizole may falselydepress this assay. Reference Range HDL <40 mg/dL Low HDL Cholesterol HDL >or= 60 mg/dL High HDL Cholesterol TRIG 102 mg/dL (Normal) Comments: The drugs N-Acetylcysteine and Metamizole may falselydepress this assay.Serum Triglycerides Reference Interval Normal <150 mg/dL Borderline high 150 - 199 mg/dL High 200 - 499 mg/dL Very High > or = 500 mg/dL CHOL 144 mg/dL (Normal) Comments: <200 mg/dL Desirable 200-240 mg/dL Borderline >240 mg/dL High Risk 20-Oss-245937:06 Liver Profile Comments: [facility] [address] [place], [place], [address] D BILI 0.35 mg/dL (Abnormal) Range: 0.00-0.30 T BILI 0.90 mg/dL (Normal) Range: 0.20-1.00 ALT 26 U/L (Normal) Range: 16-61 ALK P 158 U/L (Abnormal) Range: 45-117 AST 27 U/L (Normal) Range: 15-37 GLOB 4.8 g/dL (Abnormal) Range: 2.2-4.2 ALB 3.4 g/dL (Normal) Range: 3.2-5.0 T PROT 8.2 g/dL (Normal) Range: 6.4-8.2 :25 Tanner ([id number]) Comments: PATIENT WAS FASTINGPERFORMED BY: [employer] [facility] [id number] BY: [employer] [id number] Levetiracetam, S 41.3 ug/mL (Abnormal) Range: 10.0-40.0 :25 METABOLIC PANEL, BASIC Comments: PATIENT WAS FASTINGPERFORMED BY: [employer] [facility] [id number] BY: [employer] [id number] ([id number]) Calcium 9.0 mg/dL (Normal) Range: 8.6-10.2 Carbon Dioxide, Total 24 mmol/L (Normal) Range: 20-29 Chloride 90 mmol/L (Abnormal) Range: 96-106 Potassium 3.9 mmol/L (Normal) Range: 3.5-5.2 Sodium 133 mmol/L (Abnormal) Range: 134-144 BUN/Creatinine Ratio 17 (Normal) Range: 10-24 eGFR If Africn Am 48 mL/min/1.73 (Abnormal) eGFR If NonAfricn Am 42 mL/min/1.73 (Abnormal) Creatinine 1.56 mg/dL (Abnormal) Range: 0.76-1.27 BUN 26 mg/dL (Normal) Range: 8-27 Glucose 171 mg/dL (Abnormal) Range: 65-99 :25 Platelet Count, Citrated Comments: PATIENT WAS FASTINGPERFORMED BY: [employer] [facility] [id number] BY: [place] [id number] [facility] [id number] ([id number]) Plt Count, Citrated Bld 119 {X10E3/uL} (Abnormal) Range: 150-379 :54 HGB A1C (28408) Comments: PATIENT NOT FASTINGPERFORMED BY: [place] [id number] [facility] [id number] Hemoglobin A1c 9.0 % (Abnormal) Range: 4.8-5.6 Comments: . Prediabetes: 5.7 - 6.4 Diabetes: >6.4 Glycemic control for adults with diabetes: <7.0 :54 T4, FREE (THYROXINE) (01848) Comments: PATIENT NOT FASTINGPERFORMED BY: [facility] [id number] T4,Free(Direct) 1.15 ng/dL (Normal) Range: 0.82-1.77 99-Byn-044610:54 TSH (29677) Comments: PATIENT NOT FASTINGPERFORMED BY: [facility] [id number]; appt 08/19 TSH 2.130 {uIU/mL} (Normal) Range: 0.450-4.500 99-Yir-864852:20 Rapid Strep Test, Office (84531) Rapid Strep Test, Office Negative (Normal) 16-Gwq-818921:46 Metabolic Panel, Basic Comments: PATIENT NOT FASTINGPERFORMED BY: [facility] [place] [id number] [facility] [id number]; fu today DB (25063) Calcium 9.1 mg/dL (Normal) Range: 8.6-10.2 Carbon Dioxide, Total 29 mmol/L (Normal) Range: 20-29 Chloride 90 mmol/L (Abnormal) Range: 96-106 Potassium 3.6 mmol/L (Normal) Range: 3.5-5.2 Sodium 133 mmol/L (Abnormal) Range: 134-144 BUN/Creatinine Ratio 16 (Normal) Range: 10-24 eGFR If Africn Am 38 mL/min/1.73 (Abnormal) eGFR If NonAfricn Am 33 mL/min/1.73 (Abnormal) Creatinine 1.92 mg/dL (Abnormal) Range: 0.76-1.27 BUN 31 mg/dL (Abnormal) Range: 8-27 Glucose 227 mg/dL (Abnormal) Range: 65-99 4-Hlq-466260:53 Basic Metabolic Profile (BMP) Comments: [facility] Nl[address]vpt[address] [place], [place], [id number](025) GAP 12 (Normal) Range: 5-15 CO2 27.0 mmol/L (Normal) Range: 21.0-32.0 CL 91 mmol/L (Abnormal) Range: 98-107 K 3.2 mmol/L (Abnormal) Range: 3.5-5.1 NA 130 mmol/L (Abnormal) Range: 136-145 CA 8.6 mg/dL (Normal) Range: 8.5-10.1 BUN/CRE 14.8 {RATIO} (Normal) Range: 10-20 EST GFR - AA 41 mL/min (Abnormal) Comments: GFR Calc EST GFR 34 mL/min (Abnormal) Comments: Non- GFR Calc CREAT,SERUM 2.03 mg/dL (Abnormal) Range: 0.70-1.30 Comments: The validity of the calculated GFR AND GFRAA in patients over70 years has not been determined. Clinical correlation isessential. BUN 30 mg/dL (Abnormal) Range: 7-18 GLU 294 mg/dL (Abnormal) Range: 74-106 Comments: Glucose result greater than or equal to 200 mg/dLsuggests DIABETES MELLITUS per A.D.A. criteria.Please note revised GLUCOSE reference range mjunxzego45/02/2018. 2-Ryo-188466:53 Magnesium Comments: [facility] Bleovkcshd[address] [place], [place], [address](080) MG 1.8 mg/dL (Normal) Range: 1.6-2.6 13-Fbd-288248:10 Basic Metabolic Panel (8) Comments: PATIENT NOT FASTINGPERFORMED BY: CB [facility] Fttsrj0713 [facility] [id number] BY: BN [facility] [address] [id number] Calcium 9.3 mg/dL (Normal) Range: 8.6-10.2 Carbon Dioxide, Total 26 mmol/L (Normal) Range: 20-29 Chloride 92 mmol/L (Abnormal) Range: 96-106 Potassium 4.3 mmol/L (Normal) Range: 3.5-5.2 Sodium 135 mmol/L (Normal) Range: 134-144 BUN/Creatinine Ratio 14 (Normal) Range: 10-24 eGFR If Africn Am 39 mL/min/1.73 (Abnormal) eGFR If NonAfricn Am 34 mL/min/1.73 (Abnormal) Creatinine 1.85 mg/dL (Abnormal) Range: 0.76-1.27 BUN 26 mg/dL (Normal) Range: 8-27 Glucose 325 mg/dL (Abnormal) Range: 65-99 47-Khp-344076:10 Levetiracetam (Keppra), S Comments: PATIENT NOT FASTINGPERFORMED BY: [employer] [facility] [id number] BY: [address] [id number] Levetiracetam, S 66.3 ug/mL (Abnormal) Range: 10.0-40.0 :10 Platelet Count on Comments: PATIENT NOT FASTINGPERFORMED BY: [employer] [facility] [id number] BY: [address] [id number] Citrated Bld Plt Count, Citrated 85 {X10E3/uL} Range: 150-379 Bld (Abnormal) Comments: Platelet count verified by examination of peripheral blood smear. FDP, Plasma 5 ug/mL (Abnormal) Comments: PATIENT NOT FASTINGPERFORMED BY: [employer] Kraahw7234 [facility] [id number] BY: [address] [id number] :49 LDH 220 [iU]/L (Normal) Comments: PATIENT NOT FASTINGPERFORMED BY: [employer] Zyukff1863 [facility] [id number] BY: [address] [id number] :49 Range: 121-224 3-Geg-491789:49 Methylmalonic Acid, Serum Comments: PATIENT NOT FASTINGPERFORMED BY: [place] 7459470 [facility] [id number] BY: [address] [id number] Disclaimer: SPRCS (Normal) Comments: This test was developed and its performance characteristicsdetermined by [employer]. It has not been cleared or approvedby the Food and Drug Administration. Methylmalonic Acid, Serum 195 nmol/L (Normal) Range: 0-378 2-Oyy-215862:49 Platelet Count on Comments: PATIENT NOT FASTINGPERFORMED BY: [place] [id number] [facility] [id number] BY: [address] [id number] Citrated Bld Plt Count, Citrated 108 {X10E3/uL} Range: 150-379 Bld (Abnormal) Vitamin B12 780 pg/mL (Normal) Comments: PATIENT NOT FASTINGPERFORMED BY: [address] [id number] BY: [address] [id number] :49 Range: 232-1245 7-Eha-847862:49 Renal function Panel Comments: standing order q 3 months; PATIENT NOT FASTINGPERFORMED BY: [place] [id number] [facility] [id number] BY: [address] [id number] ([address]) Albumin 4.3 g/dL (Normal) Range: 3.5-4.8 Phosphorus 2.7 mg/dL (Normal) Range: 2.5-4.5 Calcium 8.9 mg/dL (Normal) Range: 8.6-10.2 Carbon Dioxide, Total 23 mmol/L (Normal) Range: 20-29 Comments: Please note reference interval change Chloride 96 mmol/L (Normal) Range: 96-106 Potassium 4.5 mmol/L (Normal) Range: 3.5-5.2 Sodium 135 mmol/L (Normal) Range: 134-144 BUN/Creatinine Ratio 13 (Normal) Range: 10-24 eGFR If Africn Am 42 mL/min/1.73 (Abnormal) eGFR If NonAfricn Am 36 mL/min/1.73 (Abnormal) Creatinine 1.75 mg/dL (Abnormal) Range: 0.76-1.27 BUN 22 mg/dL (Normal) Range: 8-27 Glucose 244 mg/dL (Abnormal) Range: 65-99 10-Eum-247362:48 Urinalysis, Office (09259) UA - LEUKOCYTE ESTERASE Trace (Normal) UA - NITRITE Negative (Normal) URINE UROBILINGN CASPER TIMED 2 mg/dL (Normal) UA - PROTEIN Trace mg/dL (Normal) UA - PH 6 (Abnormal) UA - BLOOD Negative (Normal) UA - SPECIFIC GRAVITY 1.020 (Normal) UA - KETONES Negative mg/dL (Normal) UA - BILIRUBIN Negative (Normal) UA - GLUCOSE Negative (Normal) 41-Rps-309134:47 CBC W/Diff, Automated Comments: Order Date: 04/25/18Order Info: [id number] - [facility] Bqmznieeof7488 [place], [address] Absolute Lymph 1.07 {X10_3/ul} (Normal) Range: 0.83-4.51 Absolute Neut 6.1 {X10_3/uL} (Normal) Range: 2.0-7.7 IM GRAN % 0.300 % (Normal) Range: 0.0-0.9 Comments: IG% - Immature Granulocytes (promyelocytes, myelocytes andmetamyelocytes) > 1% indicates that a LEFT SHIFT is Present. BASO% 0.4 % (Normal) Range: 0-1 EO% 1.7 % (Normal) Range: 0-5 MONO% 6.1 % (Normal) Range: 0-10 LY% 13.6 % (Abnormal) Range: 19-41 NEUT% 77.9 % (Abnormal) Range: 47-70 MPV 10.9 fL (Normal) Range: 6.2-12.0 PLT 98 K/mm3 (Abnormal) Range: 150-450 RDW SD 46.0 fL (Abnormal) Range: 35.1-43.9 RDW CV 13.4 % (Normal) Range: 11.6-14.6 MCHC 34.1 {g/gl} (Normal) Range: 32-36 MCH 33.4 pg (Abnormal) Range: 27.0-32.0 MCV 98.1 fL (Abnormal) Range: 80-94 HCT 37.0 % (Abnormal) Range: 40-54 HGB 12.6 g/dL (Abnormal) Range: 13.0-16.5 RBC 3.77 {M/mm3} (Abnormal) Range: 4.6-6.2 WBC 7.9 K/mm3 (Normal) Range: 4.4-11.0 59-Qzz-748180:47 Renal Profile Comments: Order Date: 04/25/18Order Info: [id number]- [id number] - RENALOrder Info: [id number] - TROPOrder Info: [id number] - MGOrder Info: [id number] - TSHOrder Info: 3024-7 - T4F'TROP' Serial specimen #1, #2, #3, or #4: 1[facility] Truksbhqkh6494 [address] [place], [place], [id number] CO2 27.0 mmol/L (Normal) Range: 21.0-32.0 CL 97 mmol/L (Abnormal) Range: 98-107 K 4.5 mmol/L (Normal) Range: 3.5-5.1 NA 134 mmol/L (Abnormal) Range: 136-145 PHOS 3.4 mg/dL (Normal) Range: 2.5-4.9 CA 8.8 mg/dL (Normal) Range: 8.5-10.1 ALB 3.6 g/dL (Normal) Range: 3.2-5.0 BUN/CRE 14.6 {RATIO} (Normal) Range: 10-20 EST GFR - AA 42 mL/min (Abnormal) Comments: GFR Calc EST GFR 35 mL/min (Abnormal) Comments: Non- GFR Calc CREAT,SERUM 1.98 mg/dL (Abnormal) Range: 0.70-1.30 Comments: The validity of the calculated GFR AND GFRAA in patients over70 years has not been determined. Clinical correlation isessential. BUN 29 mg/dL (Abnormal) Range: 7-18 GLU 255 mg/dL (Abnormal) Range: 74-106 Comments: Glucose result greater than or equal to 200 mg/dLsuggests DIABETES MELLITUS per A.D.A. criteria.Please note revised GLUCOSE reference range rfkeayuzq79/02/2018. 21-Zsb-753128:47 Thyroid Stim Hormone (TSH) Comments: Order Date: 04/25/18Order Info: 0790- - RENALOrder Info: [id number] - TROPOrder Info: [id number] - MGOrder Info: 6-3 - TSHOrder Info: [id number] - T4F'TROP' Serial specimen #1, #2, #3, or #4: [address] [place] [address] Dlohjjeoom6037 [facility]. [place], [place], [id number] TSH 2.08 {uIU/mL} (Normal) Range: 0.358-3.74 :47 Troponin-I Comments: Order Date: 04/25/18Order Info: [id number]- - RENALOrder Info: [id number] - TROPOrder Info: [id number] - MGOrder Info: 6-3 - TSHOrder Info: 3023-7 - T4F'TROP' Serial specimen #1, #2, #3, or #4: [address] [place] [address] Hgsvptuiec9847 [facility]. [place], [place], [address] TROPONIN-I < 0.015 ng/mL (Normal) Comments: TROPONIN-I EXPECTED VALUES <0.045 Negative 0.045 - 0.590 Consistent with Cardiac Damage > OR = 0.600 Critical Value Not every elevated troponin is indicative of NH. T hesevalues should be used with clinical judgement in examiningthe patient's clinical picture for diagnosis. To establisha diagnosis of NH versus myocardial injury, there must be ademonstrated rise and/ or fall in the troponin values, inaddition to ischemic symptoms, EKG changes, new regionalwall motion abnormality, and/or angiographical evidence. PLEASE NOTE: REFERENCE RANGES EDITED 18:47 T4, FREE (THYROXINE) (31557) Comments: Order Date: 04/25/18Order Info: 0790- - RENALOrder Info: [id number] - TROPOrder Info: [id number] - MGOrder Info: 301-3 - TSHOrder Info: 302-7 - T4F'TROP' Serial specimen #1, #2, #3, or #4: [address] [place] [address] [address] [place], [address] T4 FREE DIRECT 1.08 ng/dL (Normal) Range: 0.76-1.46 13-Kuw-754467:47 Magnesium (94351) Comments: Order Date: 04/25/18Order Info: 0790- - RENALOrder Info: [id number] - TROPOrder Info: [id number] - MGOrder Info: [id number] - TSHOrder Info: 3027 - T4F'TROP' Serial specimen #1, #2, #3, or #4: [address] [place] [address] Cpxt[address] [place], [address] MG 1.9 mg/dL (Normal) Range: 1.6-2.6 34-Org-106840:00 CBC WITH MANUAL DIFF (93009) Comments: standing order q 3 months; PATIENT NOT FASTINGPERFORMED BY: [facility] Ghlbhl4805 [facility] [id number] Immature Grans (Abs) 0.0 {x10E3/uL} (Normal) Range: 0.0-0.1 Immature Granulocytes 0 % (Normal) Baso (Absolute) 0.0 {x10E3/uL} (Normal) Range: 0.0-0.2 Eos (Absolute) 0.2 {x10E3/uL} (Normal) Range: 0.0-0.4 Monocytes(Absolute) 0.6 {x10E3/uL} (Normal) Range: 0.1-0.9 Lymphs (Absolute) 1.3 {x10E3/uL} (Normal) Range: 0.7-3.1 Neutrophils (Absolute) 6.9 {x10E3/uL} (Normal) Range: 1.4-7.0 Basos 0 % (Normal) Eos 2 % (Normal) Monocytes 6 % (Normal) Lymphs 15 % (Normal) Neutrophils 77 % (Normal) Platelets 140 {x10E3/uL} (Abnormal) Range: 150-379 RDW 14.1 % (Normal) Range: 12.3-15.4 MCHC 33.6 g/dL (Normal) Range: 31.5-35.7 MCH 32.9 pg (Normal) Range: 26.6-33.0 MCV 98 fL (Abnormal) Range: 79-97 Hematocrit 36.9 % (Abnormal) Range: 37.5-51.0 Hemoglobin 12.4 g/dL (Abnormal) Range: 13.0-17.7 RBC 3.77 {x10E6/uL} (Abnormal) Range: 4.14-5.80 WBC 9.0 {x10E3/uL} (Normal) Range: 3.4-10.8 28-Rom-984396:00 MAGNESIUM (88153) Comments: standing order q 3 months; PATIENT NOT FASTINGPERFORMED BY: [facility] [place] [id number] Magnesium 1.7 mg/dL (Normal) Range: 1.6-2.3 45-Quf-722774:00 PARATHORMONE (88164) Comments: standing order q 3 months; PATIENT NOT FASTINGPERFORMED BY: [facility] [place] [id number] PTH, Intact 73 pg/mL (Abnormal) Range: 15-65 94-Qxd-628045:00 Renal function Panel (24987) Comments: standing order q 3 months; PATIENT NOT FASTINGPERFORMED BY: [facility] [place] [id number] Albumin 4.1 g/dL (Normal) Range: 3.5-4.8 Phosphorus 2.7 mg/dL (Normal) Range: 2.5-4.5 Calcium 9.0 mg/dL (Normal) Range: 8.6-10.2 Carbon Dioxide, Total 24 mmol/L (Normal) Range: 20-29 Chloride 93 mmol/L (Abnormal) Range: 96-106 Potassium 4.4 mmol/L (Normal) Range: 3.5-5.2 Sodium 132 mmol/L (Abnormal) Range: 134-144 BUN/Creatinine Ratio 13 (Normal) Range: 10-24 eGFR If Africn Am 44 mL/min/1.73 (Abnormal) eGFR If NonAfricn Am 38 mL/min/1.73 (Abnormal) Creatinine 1.69 mg/dL (Abnormal) Range: 0.76-1.27 BUN 22 mg/dL (Normal) Range: 8-27 Glucose 276 mg/dL (Abnormal) Range: 65-99 58-Kgs-591081:29 Renal function Panel (04308) Comments: PATIENT WAS FASTINGPERFORMED BY: [facility] Tdnsjj5710 [facility] [id number]; fu 04-25 Albumin 4.4 g/dL (Normal) Range: 3.5-4.8 Phosphorus 3.7 mg/dL (Normal) Range: 2.5-4.5 Calcium 9.4 mg/dL (Normal) Range: 8.6-10.2 Carbon Dioxide, Total 27 mmol/L (Normal) Range: 20-29 Comments: Please note reference interval change Chloride 96 mmol/L (Normal) Range: 96-106 Potassium 4.3 mmol/L (Normal) Range: 3.5-5.2 Sodium 138 mmol/L (Normal) Range: 134-144 BUN/Creatinine Ratio 15 (Normal) Range: 10-24 eGFR If Africn Am 46 mL/min/1.73 (Abnormal) eGFR If NonAfricn Am 40 mL/min/1.73 (Abnormal) Creatinine 1.62 mg/dL (Abnormal) Range: 0.76-1.27 BUN 24 mg/dL (Normal) Range: 8-27 Glucose 198 mg/dL (Abnormal) Range: 65-99 6-Lrw-129357:18 HgA1C , Office (98081) HgA1C , Office 7.0 % (Normal) Range: 4.6 - 7.1 49-Aox-36923:46 Basic Metabolic Profile Comments: Comments: Renal InsufficiencyComments: [facility]WMer[facility] [address]avxkyzpaj[address] [place], [address] (BMP) GAP 13 (Normal) Range: 5-15 CO2 24.0 mmol/L (Normal) Range: 21.0-32.0 CL 99 mmol/L (Normal) Range: 98-107 K 3.9 mmol/L (Normal) Range: 3.5-5.1 NA 136 mmol/L (Normal) Range: 136-145 CA 8.6 mg/dL (Normal) Range: 8.5-10.1 BUN/CRE 17.2 {RATIO} (Normal) Range: 10-20 EST GFR - AA 51 mL/min (Abnormal) Comments: GFR Calc EST GFR 42 mL/min (Abnormal) Comments: Non- GFR Calc CREAT,SERUM 1.69 mg/dL (Abnormal) Range: 0.70-1.30 Comments: The validity of the calculated GFR AND GFRAA in patients over70 years has not been determined. Clinical correlation isessential. BUN 29 mg/dL (Abnormal) Range: 7-18 GLU 176 mg/dL (Abnormal) Range: 74-106 Comments: Fasting Glucose result greater than or equal to 126 mg/dLsuggests DIABETES MELLITUS per A.D.A. criteria.Please note revised GLUCOSE reference range oltoylcas53/02/2018. 56-Poj-88724:46 Lipid Profile Comments: Comments: Renal InsufficiencyComments: [facility]fficiencyOhio[facility] Xogdfyhqbk4213 [facility] [address]. [place], [place], [id number] VLDL 41 mg/dL (Abnormal) Range: 5-40 LDL 37 mg/dL (Normal) Range: 0-130 HDL 61 mg/dL (Normal) Comments: The drugs N-Acetylcysteine and Metamizole may falselydepress this assay. Reference Range HDL <40 mg/dL Low HDL Cholesterol HDL >or= 60 mg/dL High HDL Cholesterol TRIG 203 mg/dL (Abnormal) Comments: The drugs N-Acetylcysteine and Metamizole may falselydepress this assay.Serum Triglycerides Reference Interval Normal <150 mg/dL Borderline high 150 - 199 mg/dL High 200 - 499 mg/dL Very High > or = 500 mg/dL CHOL 139 mg/dL (Normal) Comments: <200 mg/dL Desirable 200-240 mg/dL Borderline >240 mg/dL High Risk :46 Liver Profile Comments: Comments: Renal InsufficiencyComments: Renal InsufficiencyOhio[facility] Lidblurmqy4711 [address] G[address] [place], [place], [address] D BILI 0.16 mg/dL (Normal) Range: 0.00-0.30 T BILI 0.50 mg/dL (Normal) Range: 0.20-1.00 ALT 25 U/L (Normal) Range: 16-61 ALK P 104 U/L (Normal) Range: 45-117 AST 29 U/L (Normal) Range: 15-37 GLOB 4.0 g/dL (Normal) Range: 2.2-4.2 ALB 3.5 g/dL (Normal) Range: 3.2-5.0 T PROT 7.5 g/dL (Normal) Range: 6.4-8.2 :37 Magnesium (31036) Comments: PATIENT NOT FASTINGPERFORMED BY: [facility] CenterWzmsbx4173 [facility] [id number] Magnesium 2.1 mg/dL (Normal) Range: 1.6-2.3 :37 Metabolic Panel, Basic (07862) Comments: PATIENT NOT FASTINGPERFORMED BY: [facility]CoAstra [facility] CenterSjucwd8160 [facility] [id number] Calcium 9.0 mg/dL (Normal) Range: 8.6-10.2 Carbon Dioxide, Total 25 mmol/L (Normal) Range: 18-29 Chloride 89 mmol/L (Abnormal) Range: 96-106 Potassium 4.5 mmol/L (Normal) Range: 3.5-5.2 Sodium 133 mmol/L (Abnormal) Range: 134-144 BUN/Creatinine Ratio 15 (Normal) Range: 10-24 eGFR If Africn Am 51 mL/min/1.73 (Abnormal) eGFR If NonAfricn Am 44 mL/min/1.73 (Abnormal) Creatinine 1.51 mg/dL (Abnormal) Range: 0.76-1.27 BUN 23 mg/dL (Normal) Range: 8-27 Glucose 284 mg/dL (Abnormal) Range: 65-99 13-Tio-247935:57 Bedside Glucose Comments: [facility] LaboratoryPoint of Rumm[address] [place] [address] BEDSIDE GLU 381 mg/dL (Abnormal) Range: 70-110 Comments: MANAGEMENT OF PATIENT CARE PER NURSING PROTOCOL 85-Ciu-198404:50 Acetone Serum Comments: [facility] Bmiibnfqmq[address] [place], [address] ACETONE SERUM NEGATIVE (Normal) 26-Ztt-255523:50 Basic Metabolic Profile (BMP) Comments: 'TROP' Serial specimen #1, #2, #3, or #4: 1[facility] Ysqycxezqq0628 [address] [place], [address] GAP 9 (Normal) Range: 5-15 CO2 30.0 mmol/L (Normal) Range: 21.0-32.0 CL 90 mmol/L (Abnormal) Range: 98-107 K 3.9 mmol/L (Normal) Range: 3.5-5.1 NA 129 mmol/L (Abnormal) Range: 136-145 CA 8.6 mg/dL (Normal) Range: 8.5-10.1 BUN/CRE 21.1 {RATIO} (Abnormal) Range: 10-20 Estimated CRCL 33.82 ml/min (Normal) EST GFR - AA 50 mL/min (Abnormal) Comments: GFR Calc EST GFR 41 mL/min (Abnormal) Comments: Non- GFR Calc CREAT,SERUM 1.71 mg/dL (Abnormal) Range: 0.70-1.30 Comments: The validity of the calculated GFR AND GFRAA in patients over70 years has not been determined. Clinical correlation isessential. BUN 36 mg/dL (Abnormal) Range: 7-18 GLU 384 mg/dL (Abnormal) Range: 74-106 Comments: Glucose result greater than or equal to 200 mg/dLsuggests DIABETES MELLITUS per A.D.A. criteria.Please note revised GLUCOSE reference range /02/2018. 29-Tqq-691778:50 BNP,B-Type NATRIURETIC PEPTIDE Comments: [facility] Atpsvjixyb2617 [address]. [place], [place], [id number] B-TYPE JUSTIN PEP 386.1 pg/mL (Abnormal) Range: 0-100 97-Hzu-919064:50 CBC W/Diff, Automated Comments: [facility] Fbkdwnfypj63[address] [place], [place], [address] Absolute Lymph 1.11 {X10_3/ul} (Normal) Range: 0.83-4.51 Absolute Neut 8.1 {X10_3/uL} (Abnormal) Range: 2.0-7.7 IM GRAN % 0.500 % (Normal) Range: 0.0-0.9 Comments: IG% - Immature Granulocytes (promyelocytes, myelocytes andmetamyelocytes) > 1% indicates that a LEFT SHIFT is Present. BASO% 0.0 % (Normal) Range: 0-1 EO% 0.0 % (Normal) Range: 0-5 MONO% 4.6 % (Normal) Range: 0-10 LY% 11.5 % (Abnormal) Range: 19-41 NEUT% 83.4 % (Abnormal) Range: 47-70 MPV 9.2 fL (Normal) Range: 6.2-12.0 PLT 158 K/mm3 (Normal) Range: 150-450 RDW SD 46.4 fL (Abnormal) Range: 35.1-43.9 RDW CV 13.7 % (Normal) Range: 11.6-14.6 MCHC 34.9 {g/gl} (Normal) Range: 32-36 MCH 32.6 pg (Abnormal) Range: 27.0-32.0 MCV 93.5 fL (Normal) Range: 80-94 HCT 40.4 % (Normal) Range: 40-54 HGB 14.1 g/dL (Normal) Range: 13.0-16.5 RBC 4.32 {M/mm3} (Abnormal) Range: 4.6-6.2 WBC 9.7 K/mm3 (Normal) Range: 4.4-11.0 95-Xqb-123072:50 Troponin-I Comments: 'TROP' Serial specimen #1, #2, #3, or #4: [address] [place] [address] Sbjddsxsos8818 [facility]. [place], [place], [address] TROPONIN-I 0.03 ng/mL (Normal) Comments: TROPONIN-I EXPECTED VALUES <0.05 NEGATIVE 0.06 - 0.59 AT RISK OF NH > OR = 0.60 SUGGEST NH 40-Fxg-162778:51 Renal Profile Comments: Order Date: 01/18/18Order Info: [id number]- 1 - RENALOrder Info: [id number] - TROP'TROP' Serial specimen #1, #2, #3, or #4: [address] [place] [address] [place], [phone] CO2 29.0 mmol/L (Normal) Range: 21.0-32.0 CL 89 mmol/L (Abnormal) Range: 98-107 K 4.2 mmol/L (Normal) Range: 3.5-5.1 NA 129 mmol/L (Abnormal) Range: 136-145 PHOS 4.5 mg/dL (Normal) Range: 2.5-4.9 CA 8.7 mg/dL (Normal) Range: 8.5-10.1 ALB 4.1 g/dL (Normal) Range: 3.2-5.0 BUN/CRE 20.9 {RATIO} (Abnormal) Range: 10-20 EST GFR - AA 48 mL/min (Abnormal) Comments: GFR Calc EST GFR 40 mL/min (Abnormal) Comments: Non- GFR Calc CREAT,SERUM 1.77 mg/dL (Abnormal) Range: 0.70-1.30 Comments: The validity of the calculated GFR AND GFRAA in patients over70 years has not been determined. Clinical correlation isessential. BUN 37 mg/dL (Abnormal) Range: 7-18 GLU 398 mg/dL (Abnormal) Range: 74-106 Comments: Glucose result greater than or equal to 200 mg/dLsuggests DIABETES MELLITUS per A.D.A. criteria.Please note revised GLUCOSE reference range dcrvknynd93/02/2018. 88-Eef-245224:51 Troponin-I Comments: Order Date: 01/18/18Order Info: [id number] - RENALOrder Info: [id number] - TROP'TROP' Serial specimen #1, #2, #3, or #4: [facility] Hxlkhhrtmr2259 [facility] [place], [phone] TROPONIN-I 0.02 ng/mL (Normal) Comments: TROPONIN-I EXPECTED VALUES <0.05 NEGATIVE 0.06 - 0.59 AT RISK OF NH > OR = 0.60 SUGGEST NH 05-Jzx-576173:16 HgA1C , Office (68087) HgA1C , Office 7.7 % (Abnormal) Range: 4.6 - 7.1 59-Njr-514181:47 Basic Metabolic Profile (BMP) Comments: CALL RESULTS TO [phone] Hardin Memorial Hospital [address]ogabql[address] [place], [address] GAP 8 (Normal) Range: 5-15 CO2 30.0 mmol/L (Normal) Range: 21.0-32.0 CL 95 mmol/L (Abnormal) Range: 98-107 K 4.0 mmol/L (Normal) Range: 3.5-5.1 NA 133 mmol/L (Abnormal) Range: 136-145 CA 8.5 mg/dL (Normal) Range: 8.5-10.1 BUN/CRE 12.7 {RATIO} (Normal) Range: 10-20 EST GFR - AA 41 mL/min (Abnormal) Comments: GFR Calc EST GFR 34 mL/min (Abnormal) Comments: Non- GFR Calc CREAT,SERUM 2.05 mg/dL (Abnormal) Range: 0.70-1.30 Comments: The validity of the calculated GFR AND GFRAA in patients over70 years has not been determined. Clinical correlation isessential. BUN 26 mg/dL (Abnormal) Range: 7-18 GLU 220 mg/dL (Abnormal) Range: 70-110 Comments: Glucose result greater than or equal to 200 mg/dLsuggests DIABETES MELLITUS per A.D.A. criteria. 01-Tkn-362502:47 BNP,B-Type NATRIURETIC PEPTIDE Comments: CALL RESULTS TO [phone] [facility]in [facility] Hospital [address]fudrkwldk4[address] [place], [address] B-TYPE JUSTIN PEP 580.2 pg/mL (Abnormal) Range: 0-100 94-Ksy-851163:47 CBC W/Diff, Automated Comments: CALL RESULTS TO [phone] Hardin Memorial Hospital [address]lhnvtwc[address], [address] Absolute Lymph 0.67 {X10_3/ul} (Abnormal) Range: 0.83-4.51 Absolute Neut 4.0 {X10_3/uL} (Normal) Range: 2.0-7.7 IM GRAN % 0.200 % (Normal) Range: 0.0-0.9 Comments: IG% - Immature Granulocytes (promyelocytes, myelocytes andmetamyelocytes) > 1% indicates that a LEFT SHIFT is Present. BASO% 0.5 % (Normal) Range: 0-1 EO% 5.4 % (Abnormal) Range: 0-5 MONO% 11.1 % (Abnormal) Range: 0-10 LY% 12.0 % (Abnormal) Range: 19-41 NEUT% 70.8 % (Abnormal) Range: 47-70 MPV 9.6 fL (Normal) Range: 6.2-12.0 PLT 100 K/mm3 (Abnormal) Range: 150-450 RDW SD 52.9 fL (Abnormal) Range: 35.1-43.9 RDW CV 15.1 % (Abnormal) Range: 11.6-14.6 MCHC 33.3 {g/gl} (Normal) Range: 32-36 MCH 32.2 pg (Abnormal) Range: 27.0-32.0 MCV 96.7 fL (Abnormal) Range: 80-94 HCT 37.8 % (Abnormal) Range: 40-54 HGB 12.6 g/dL (Abnormal) Range: 13.0-16.5 RBC 3.91 {M/mm3} (Abnormal) Range: 4.6-6.2 WBC 5.6 K/mm3 (Normal) Range: 4.4-11.0 [id number] Thyroid Stim Hormone (TSH) Comments: CALL RESULTS TO [phone] [facility]in [facility] [address] [facility] [place], [address] TSH 2.08 {uIU/mL} (Normal) Range: 0.358-3.74 58-Eux-[id number]:51 CBC, Platelets & Auto Diff Comments: PATIENT WAS FASTINGPERFORMED BY: [facility] [id number] [facility] [id number] ([id number]) Immature Grans (Abs) 0.0 {x10E3/uL} (Normal) Range: 0.0-0.1 Immature Granulocytes 0 % (Normal) Baso (Absolute) 0.0 {x10E3/uL} (Normal) Range: 0.0-0.2 Eos (Absolute) 0.3 {x10E3/uL} (Normal) Range: 0.0-0.4 Monocytes(Absolute) 0.6 {x10E3/uL} (Normal) Range: 0.1-0.9 Lymphs (Absolute) 1.7 {x10E3/uL} (Normal) Range: 0.7-3.1 Neutrophils (Absolute) 5.9 {x10E3/uL} (Normal) Range: 1.4-7.0 Basos 0 % (Normal) Eos 3 % (Normal) Monocytes 7 % (Normal) Lymphs 20 % (Normal) Neutrophils 70 % (Normal) Platelets 130 {x10E3/uL} (Abnormal) Range: 150-379 RDW 14.7 % (Normal) Range: 12.3-15.4 MCHC 32.9 g/dL (Normal) Range: 31.5-35.7 MCH 32.9 pg (Normal) Range: 26.6-33.0 MCV 100 fL (Abnormal) Range: 79-97 Hematocrit 37.7 % (Normal) Range: 37.5-51.0 Hemoglobin 12.4 g/dL (Abnormal) Range: 13.0-17.7 RBC 3.77 {x10E6/uL} (Abnormal) Range: 4.14-5.80 WBC 8.6 {x10E3/uL} (Normal) Range: 3.4-10.8 [id number]-[id number]:51 Metabolic Panel, Comprehensive Comments: PATIENT WAS FASTINGPERFORMED BY: [facility]CoA[facility] CenterSlaygu[facility]2 [facility] [id number] ([id number]) ALT (SGPT) 16 [iU]/L (Normal) Range: 0-44 AST (SGOT) 18 [iU]/L (Normal) Range: 0-40 Alkaline Phosphatase 121 [iU]/L (Abnormal) Range: 39-117 Bilirubin, Total 0.6 mg/dL (Normal) Range: 0.0-1.2 A/G Ratio 1.5 (Normal) Range: 1.2-2.2 Globulin, Total 2.7 g/dL (Normal) Range: 1.5-4.5 Albumin 4.1 g/dL (Normal) Range: 3.5-4.8 Protein, Total 6.8 g/dL (Normal) Range: 6.0-8.5 Calcium 9.1 mg/dL (Normal) Range: 8.6-10.2 Carbon Dioxide, Total 25 mmol/L (Normal) Range: 18-29 Comments: Effective April 08, 2018 Carbon Dioxide, Total reference interval will be changing to: Age Male Female 0 days - 30 days 16 - 29 16 - 29 31 days - 1 year 15 - 25 15 - 25 2 years - 5 years 17 - 26 17 - 26 6 y ears - 12 years 19 - 27 19 - 27 >12 years 20 - 29 20 - 29 Chloride 93 mmol/L (Abnormal) Range: 96-106 Potassium 4.0 mmol/L (Normal) Range: 3.5-5.2 Sodium 138 mmol/L (Normal) Range: 134-144 BUN/Creatinine Ratio 18 (Normal) Range: 10-24 eGFR If Africn Am 44 mL/min/1.73 (Abnormal) eGFR If NonAfricn Am 38 mL/min/1.73 (Abnormal) Creatinine 1.69 mg/dL (Abnormal) Range: 0.76-1.27 BUN 30 mg/dL (Abnormal) Range: 8-27 Glucose 122 mg/dL (Abnormal) Range: 65-99 36-Mqw-40138:51 TSH (60321) Comments: PATIENT WAS FASTINGPERFORMED BY: [facility]E[employer] Messenger Iawtjk9744 [facility] [id number] TSH 5.070 {uIU/mL} (Abnormal) Range: 0.450-4.500 68-Qfa-18469:51 CALCIFIDIOL (81034) VIT D 25 Comments: PATIENT WAS FASTINGPERFORMED BY: [facility] Sjgimc3567 [facility] [id number] Vitamin D, 25-Hydroxy 27.8 ng/mL (Abnormal) Range: 30.0-100.0 Comments: Vitamin D deficiency has been defined by the [place] [facility] and an Endocrine Society practice guideline as alevel of serum 25-OH vitamin D less than 20 ng/mL (1,2).The Endocrine Society went on to further define vitamin Dinsufficiency as a level between 21 and 29 ng/mL (2).1. IOM ([place] of Medicine). 2010. Dietary reference intakes for calcium and D. [place]: The National Academies Press.2. Yanna MF, Maral CALDERON, Xander EDGAR, et al. Evaluation, treatment, and prevention of vitamin D deficiency: an Endocrine Society clinical practice guideline. JCEM. 2010; 96(7):1911-30. 66-Oar-19310:51 Magnesium (50858) Comments: PATIENT WAS FASTINGPERFORMED BY: [facility]6370 [facility] [id number] Magnesium 1.9 mg/dL (Normal) Range: 1.6-2.3 4-Cqr-091406:43 HgA1C , Office (89063) HgA1C , Office 7.3 % (Abnormal) Range: 4.6 - 7.1 :27 MICROALBUMIN: CREATININE Comments: PATIENT NOT FASTINGPERFORMED BY: [facility]Asc[facility]6370 [facility] [id number] Information: NURSE DRAW RATIO (41327) AND (98783) Microalb/Creat Ratio 89.4 {mg/g_creat} (Abnormal) Range: 0.0-30.0 Microalbumin, Urine 142.2 ug/mL (Normal) Creatinine, Urine 159.1 mg/dL (Normal) :27 PARATHORMONE (26689) Comments: PATIENT NOT FASTINGPERFORMED BY: [facility]Asc[facility]6370 [facility] [id number] PTH, Intact 53 pg/mL (Normal) Range: 15-65 12-Ggo-192335:15 TSH (71138) Comments: PATIENT NOT FASTINGPERFORMED BY: LabAsc[facility] Hospital6370 [facility] [id number] TSH 4.310 {uIU/mL} (Normal) Range: 0.450-4.500 90-Zge-860535:15 METABOLIC PANEL, COMPREHENSIVE Comments: PATIENT NOT FASTINGPERFORMED BY: Plures TechnologiesAscension Standish Hospital6370 [facility] [id number] (49009) ALT (SGPT) 17 [iU]/L (Normal) Range: 0-44 AST (SGOT) 22 [iU]/L (Normal) Range: 0-40 Alkaline Phosphatase, S 117 [iU]/L (Normal) Range: 39-117 Bilirubin, Total 0.5 mg/dL (Normal) Range: 0.0-1.2 A/G Ratio 1.3 (Normal) Range: 1.2-2.2 Globulin, Total 3.0 g/dL (Normal) Range: 1.5-4.5 Albumin, Serum 3.9 g/dL (Normal) Range: 3.5-4.8 Protein, Total, Serum 6.9 g/dL (Normal) Range: 6.0-8.5 Calcium, Serum 8.9 mg/dL (Normal) Range: 8.6-10.2 Carbon Dioxide, Total 24 mmol/L (Normal) Range: 18-29 Chloride, Serum 97 mmol/L (Normal) Range: 96-106 Potassium, Serum 4.1 mmol/L (Normal) Range: 3.5-5.2 Sodium, Serum 139 mmol/L (Normal) Range: 134-144 BUN/Creatinine Ratio 10 (Normal) Range: 10-24 eGFR If Africn Am 61 mL/min/1.73 (Normal) eGFR If NonAfricn Am 53 mL/min/1.73 (Abnormal) Creatinine, Serum 1.30 mg/dL (Abnormal) Range: 0.76-1.27 BUN 13 mg/dL (Normal) Range: 8-27 Glucose, Serum 231 mg/dL (Abnormal) Range: 65-99 25-Lwd-985410:15 CBC with auto diff (90378) Comments: PATIENT NOT FASTINGPERFORMED BY: LabCoAstra Health CenterVezmsk0876 [facility] [id number] Immature Grans (Abs) 0.0 {x10E3/uL} (Normal) Range: 0.0-0.1 Immature Granulocytes 0 % (Normal) Baso (Absolute) 0.0 {x10E3/uL} (Normal) Range: 0.0-0.2 Eos (Absolute) 0.3 {x10E3/uL} (Normal) Range: 0.0-0.4 Monocytes(Absolute) 0.5 {x10E3/uL} (Normal) Range: 0.1-0.9 Lymphs (Absolute) 1.8 {x10E3/uL} (Normal) Range: 0.7-3.1 Neutrophils (Absolute) 5.1 {x10E3/uL} (Normal) Range: 1.4-7.0 Basos 0 % (Normal) Eos 3 % (Normal) Monocytes 7 % (Normal) Lymphs 23 % (Normal) Neutrophils 67 % (Normal) Platelets 161 {x10E3/uL} (Normal) Range: 150-379 RDW 15.5 % (Abnormal) Range: 12.3-15.4 MCHC 32.8 g/dL (Normal) Range: 31.5-35.7 MCH 31.6 pg (Normal) Range: 26.6-33.0 MCV 97 fL (Normal) Range: 79-97 Hematocrit 35.4 % (Abnormal) Range: 37.5-51.0 Hemoglobin 11.6 g/dL (Abnormal) Range: 12.6-17.7 RBC 3.67 {x10E6/uL} (Abnormal) Range: 4.14-5.80 WBC 7.7 {x10E3/uL} (Normal) Range: 3.4-10.8 83-Hni-880520:15 CALCIFIDIOL (79905) VIT D 25 Comments: PATIENT NOT FASTINGPERFORMED BY: [facility] Bmjxin6019 [facility] [id number] Vitamin D, 25-Hydroxy 28.8 ng/mL (Abnormal) Range: 30.0-100.0 Comments: Vitamin D deficiency has been defined by the [place] ofMedicine and an Endocrine Society practice guideline as alevel of serum 25-OH vitamin D less than 20 ng/mL (1,2).The Endocrine Society went on to further define vitamin Dinsufficiency as a level between 21 and 29 ng/mL (2).1. IOM ([place] of Medicine). 2010. Dietary reference intakes for calcium and D. [place]: The National Academies Press.2. Yanna MF, Maral NC, Xander EDGAR, et al. Evaluation, treatment, and prevention of vitamin D deficiency: an Endocrine Society clinical practice guideline. JCEM. 2010; 96(7):1911-30. 20-Kvd-183457:34 Blood Glucose , Office (97115) Blood Glucose , Office 221 (Normal) 45-Shy-656190:34 HgA1C , Office (01222) HgA1C , Office 6.3 % (Normal) Range: 4.6 - 7.1 9-Kjy-680637:10 CBC W/Diff, Automated Comments: [facility] [address] [place], [place], [address] Absolute Lymph 1.60 {X10_3/ul} (Normal) Range: 0.83-4.51 Absolute Neut 5.2 {X10_3/uL} (Normal) Range: 2.0-7.7 IM GRAN % 0.300 % (Normal) Range: 0.0-0.9 Comments: IG% - Immature Granulocytes (promyelocytes, myelocytes andmetamyelocytes) > 1% indicates that a LEFT SHIFT is Present. BASO% 0.3 % (Normal) Range: 0-1 EO% 1.7 % (Normal) Range: 0-5 MONO% 7.0 % (Normal) Range: 0-10 LY% 21.4 % (Normal) Range: 19-41 NEUT% 69.3 % (Normal) Range: 47-70 MPV 9.8 fL (Normal) Range: 6.2-12.0 PLT 138 K/mm3 (Abnormal) Range: 150-450 RDW SD 47.1 fL (Abnormal) Range: 35.1-43.9 RDW CV 13.5 % (Normal) Range: 11.6-14.6 MCHC 34.5 {g/gl} (Normal) Range: 32-36 MCH 33.1 pg (Abnormal) Range: 27.0-32.0 MCV 95.8 fL (Abnormal) Range: 80-94 HCT 36.5 % (Abnormal) Range: 40-54 HGB 12.6 g/dL (Abnormal) Range: 13.0-16.5 RBC 3.81 {M/mm3} (Abnormal) Range: 4.6-6.2 WBC 7.5 K/mm3 (Normal) Range: 4.4-11.0 5-Nzl-450919:10 Comprehensive Metabolic Profil Comments: [facility] Xwkiedbenn[address] [place], [place], [id number] GAP 8 (Normal) Range: 5-15 CO2 29.0 mmol/L (Normal) Range: 21.0-32.0 CL 94 mmol/L (Abnormal) Range: 98-107 K 3.9 mmol/L (Normal) Range: 3.5-5.1 Comments: Slight Hemolysis, Result may be falsely increased. NA 131 mmol/L (Abnormal) Range: 136-145 T BILI 0.40 mg/dL (Normal) Range: 0.20-1.00 ALT 28 U/L (Normal) Range: 12-78 ALK P 101 U/L (Normal) Range: 45-117 AST 28 U/L (Normal) Range: 15-37 Comments: Slight Hemolysis, Result may be falsely increased. CA 8.3 mg/dL (Abnormal) Range: 8.5-10.1 A/G 0.9 {RATIO} (Normal) Range: 0.9-2.4 GLOB 4.0 g/dL (Abnormal) Range: 2.3-3.5 ALB 3.5 g/dL (Normal) Range: 3.4-5.0 T PROT 7.5 g/dL (Normal) Range: 6.4-8.2 BUN/CRE 14.9 {RATIO} (Normal) Range: 10-20 Estimated CRCL 27.81 ml/min (Normal) EST GFR - AA 40 mL/min (Abnormal) Comments: GFR Calc EST GFR 33 mL/min (Abnormal) Comments: Non- GFR Calc CREAT,SERUM 2.08 mg/dL (Abnormal) Range: 0.70-1.30 Comments: The validity of the calculated GFR AND GFRAA in patients over70 years has not been determined. Clinical correlation isessential. BUN 31 mg/dL (Abnormal) Range: 7-18 GLU 241 mg/dL (Abnormal) Range: 70-110 Comments: Glucose result greater than or equal to 200 mg/dLsuggests DIABETES MELLITUS per A.D.A. criteria. 4-Zba-244793:10 Prothrombin Time w/INR Comments: [facility] V[address]xrzfng[address] [place], [address] INR 1.0 (Normal) PROTIME 13.1 s (Normal) Range: 11.7-14.9 9-Jjm-978610:09 Bedside Glucose Comments: [facility] LaboratoryPoint of Zuha[address] [place], [place] [address] BEDSIDE GLU 249 mg/dL (Abnormal) Range: 70-110 Comments: MANAGEMENT OF PATIENT CARE PER NURSING PROTOCOL 89-Ryt-63066:55 Magnesium (74716) Comments: PATIENT WAS FASTINGPERFORMED BY: BN [facility] [address] [id number] BY: CB [facility] Mfreqk1991 [facility] [id number] Magnesium, Serum 2.1 mg/dL (Normal) Range: 1.6-2.3 :55 METABOLIC PANEL, Comments: PATIENT WAS FASTINGPERFORMED BY: [employer] [id number] BY: [facility]6370 [facility] [id number] COMPREHENSIVE (25504) ALT (SGPT) 13 [iU]/L (Normal) Range: 0-44 AST (SGOT) 20 [iU]/L (Normal) Range: 0-40 Alkaline Phosphatase, S 141 [iU]/L (Abnormal) Range: 39-117 Bilirubin, Total 0.8 mg/dL (Normal) Range: 0.0-1.2 A/G Ratio 1.5 (Normal) Range: 1.2-2.2 Globulin, Total 2.8 g/dL (Normal) Range: 1.5-4.5 Albumin, Serum 4.3 g/dL (Normal) Range: 3.5-4.8 Protein, Total, Serum 7.1 g/dL (Normal) Range: 6.0-8.5 Calcium, Serum 9.5 mg/dL (Normal) Range: 8.6-10.2 Carbon Dioxide, Total 26 mmol/L (Normal) Range: 18-29 Chloride, Serum 94 mmol/L (Abnormal) Range: 96-106 Potassium, Serum 4.4 mmol/L (Normal) Range: 3.5-5.2 Sodium, Serum 138 mmol/L (Normal) Range: 134-144 BUN/Creatinine Ratio 12 (Normal) Range: 10-24 eGFR If Africn Am 45 mL/min/1.73 (Abnormal) eGFR If NonAfricn Am 39 mL/min/1.73 (Abnormal) Creatinine, Serum 1.68 mg/dL (Abnormal) Range: 0.76-1.27 BUN 20 mg/dL (Normal) Range: 8-27 Glucose, Serum 120 mg/dL (Abnormal) Range: 65-99 :55 LIPOPROTEIN, BLD, BY NMR Comments: PATIENT WAS FASTINGPERFORMED BY: [employer] [id number] BY: Plures TechnologiesAscension Standish Hospital6370 [facility] [id number] (00502) LP-IR Score <25 (Normal) Comments: INSULIN RESISTANCE MARKER <--Insulin Sensitive Insulin Resistant--> Percentile in Reference PopulationInsulin Resistance ScoreLP-IR Score Low 25th 50th 75th High <27 27 45 63 >63LP-IR Score is inaccurate if patient is non-fasting. .The LP-IR score is a laboratory developed i [facility] that has beenassociated with insulin resistance and diabetes risk and should beused as one component of a physician's clinical assessment. TheLP-IR score listed above has not been cleared by the US Food andDrug Administration. Small LDL-P <90 nmol/L (Normal) HDL-P (Total) 28.3 umol/L (Abnormal) Cholesterol, Total 105 mg/dL (Normal) Range: 100-199 Triglycerides 98 mg/dL (Normal) Range: 0-149 HDL-C 50 mg/dL (Normal) LDL-C 35 mg/dL (Normal) Range: 0-99 Comments: . Optimal < 100 Above optimal 100 - 129 Borderline 1 30 - 159 High 160 - 189 Very high > 189 .LDL-C is inaccurate if patient is non-fasting. LDL-P <300 nmol/L (Normal) Comments: Low < 1000 Moderate 1000 - 1299 Borderline-High 1300 - 1599 High 1600 - 2000 Very High > 2000 29-Elz-63194:55 CALCIFIDIOL (64801) VIT D Comments: PATIENT WAS FASTINGPERFORMED BY: [address] [id number] BY: [facility]6370 [facility] [id number] 25 Vitamin D, 25-Hydroxy 35.2 ng/mL (Normal) Range: 30.0-100.0 Comments: Vitamin D deficiency has been defined by the [place] ofMedicine and an Endocrine Society practice guideline as alevel of serum 25-OH vitamin D less than 20 ng/mL (1,2).The Endocrine Society went on to further define vitamin Dinsufficiency as a level between 21 and 29 ng/mL (2).1. IOM ([place] of Medicine). 2010. Dietary reference intakes for calcium and D. [place]: The National Academies Press.2. Yanna MF, Maral NC, Xander EDGAR, et al. Evaluation, treatment, and prevention of vitamin D deficiency: an Endocrine Society clinical practice guideline. JCEM. 2010; 96(7):1911-30. 67-Dux-53324:55 PSA (Prostate Specific Comments: PATIENT WAS FASTINGPERFORMED BY: [employer] [id number] BY: [employer] Zhhbri0795 [facility] [id number] Antigen), Screening (53835) Prostate Specific Ag, 1.2 ng/mL (Normal) Range: 0.0-4.0 Serum Comments: ClickSquaredIA methodology. .According to the [place] U[employer] Association, Serum PSA shoulddecrease and remain at undetectable levels after radicalprostatectomy. The AUA defines biochemical recurrence as an initialPSA value 0.2 ng/mL or greater followed by a subsequent confirmatoryPSA value 0.2 ng/mL or greater.Values obtained with d ifferent assay methods or kits cannot be usedinterchangeably. Results cannot be interpreted as absolute evidenceof the presence or absence of malignant disease. 75-Kpe-704806:38 Blood Glucose , Office (74343) Blood Glucose , Office 160 (Normal) 85-Hzv-644200:00 CBC WITH MANUAL DIFF Comments: PATIENT NOT FASTINGPERFORMED BY: Charter CommunicationsAstra Health CenterXpjhme0355 [facility] [id number] BY: [employer] [id number] Inf ormation: NURSE DRAW (80703) Immature Grans (Abs) 0.0 {x10E3/uL} (Normal) Range: 0.0-0.1 Immature Granulocytes 0 % (Normal) Baso (Absolute) 0.0 {x10E3/uL} (Normal) Range: 0.0-0.2 Eos (Absolute) 0.2 {x10E3/uL} (Normal) Range: 0.0-0.4 Monocytes(Absolute) 0.3 {x10E3/uL} (Normal) Range: 0.1-0.9 Lymphs (Absolute) 1.5 {x10E3/uL} (Normal) Range: 0.7-3.1 Neutrophils (Absolute) 3.8 {x10E3/uL} (Normal) Range: 1.4-7.0 Basos 1 % (Normal) Eos 3 % (Normal) Monocytes 6 % (Normal) Lymphs 25 % (Normal) Neutrophils 65 % (Normal) Platelets 151 {x10E3/uL} (Normal) Range: 150-379 RDW 14.8 % (Normal) Range: 12.3-15.4 MCHC 33.4 g/dL (Normal) Range: 31.5-35.7 MCH 32.7 pg (Normal) Range: 26.6-33.0 MCV 98 fL (Abnormal) Range: 79-97 Hematocrit 38.0 % (Normal) Range: 37.5-51.0 Hemoglobin 12.7 g/dL (Normal) Range: 12.6-17.7 RBC 3.88 {x10E6/uL} (Abnormal) Range: 4.14-5.80 WBC 5.9 {x10E3/uL} (Normal) Range: 3.4-10.8 48-Rsz-428071:00 Vitamin B-12 Comments: PATIENT NOT FASTINGPERFORMED BY: NimbitAstra Health CenterSdpvvt5749 [facility] [id number] BY: [employer] [id number] (cyanocobalamin) (71860) Vitamin B12 529 pg/mL (Normal) Range: 211-946 20-Euk-996691:00 Methymalonic Acid, Serum Comments: PATIENT NOT FASTINGPERFORMED BY: Nimbit[address] [id number] BY: [employer] [id number] (36417) Methylmalonic Acid, Serum 284 nmol/L (Normal) Range: 0-378 11-Sig-573550:59 ANCA-C (ANTI NEUTROPHIL Comments: copy to Dr. [id number] all these now; PATIENT WAS FASTINGPERFORMED BY: [employer] [address] [id number] BY: Plures TechnologiesAscension Standish Hospital6370 [place] [facility] [id number] CYTOPLASMIC ANTIBODY) Atypical pANCA <1:20 {titer} Comments: The atypical pANCA pattern has been observed in a significantpercentage of patients with ulcerative colitis, primary sclerosingcholangitis and autoimmune hepatitis. (Normal) Perinuclear (P-ANCA) <1:20 {titer} Comments: The presence of positive fluorescence exhibiting P-ANCA or C-ANCApatterns alone is not specific for the diagnosis of Santana'sGranulomatosis (WG) or microscopic polyangiitis. Decisions about treatment sh (Normal) ould not be based solely on ANCA IFA results. TheInternational ANCA Group Consensus recommends follow up testing ofpositive sera with both TX-3 and MPO-ANCA enzyme immunoassays. Asmany as 5% serum samp les are positive only by EIA.Ref. AM J Clin Pathol 1999;111:507-513. Cytoplasmic (C-ANCA) <1:20 {titer} (Normal) Antiproteinase 3 (TX-3) Abs <3.5 U/mL (Normal) Range: 0.0-3.5 Antimyeloperoxidase (MPO) Abs <9.0 U/mL (Normal) Range: 0.0-9.0 17-Yjy-637222:59 Renal function Panel Comments: now; PATIENT WAS FASTINGPERFORMED BY: LabEmu MessengerJulie [place]ille 682247 [facility] [id number] BY: [facility]6370 [facility] [id number] (86146) Albumin, Serum 4.1 g/dL (Normal) Range: 3.5-4.8 Phosphorus, Serum 2.9 mg/dL (Normal) Range: 2.5-4.5 Calcium, Serum 8.8 mg/dL (Normal) Range: 8.6-10.2 Carbon Dioxide, Total 23 mmol/L (Normal) Range: 18-29 Chloride, Serum 96 mmol/L (Normal) Range: 96-106 Potassium, Serum 4.0 mmol/L (Normal) Range: 3.5-5.2 Sodium, Serum 138 mmol/L (Normal) Range: 134-144 BUN/Creatinine Ratio 12 (Normal) Range: 10-24 eGFR If Africn Am 54 mL/min/1.73 (Abnormal) eGFR If NonAfricn Am 47 mL/min/1.73 (Abnormal) Creatinine, Serum 1.44 mg/dL (Abnormal) Range: 0.76-1.27 BUN 17 mg/dL (Normal) Range: 8-27 Glucose, Serum 166 mg/dL (Abnormal) Range: 65-99 91-Zcs-052099:59 LIPOPROTEIN, BLD, BY NMR Comments: now; PATIENT WAS FASTINGPERFORMED BY: BN [facility] Vbnlubujyv3940 [facility] [id number] BY: CB [facility] Ycjens6352 [facility] [id number] (33416) LP-IR Score 39 (Normal) Comments: INSULIN RESISTANCE MARKER <--Insulin Sensitive Insulin Resistant--> Percentile in Reference PopulationInsulin Resistance ScoreLP-IR Score Low 25th 50th 75th High <27 27 45 63 >63LP-IR Score is inaccurate if patient is non-fasting. .The LP-IR score is a laboratory developed i [facility] that has beenassociated with insulin resistance and diabetes risk and should beused as one component of a physician's clinical assessment. TheLP-IR score listed above has not been cleared by the US Food andDrug Administration. LDL Size 20.0 nm (Normal) Comments: INTERPRETATIVE INFORMATION PARTICLE CONCENTRATION AND SIZE <--Lower CVD Risk Highe r CVD Risk--> LDL AND HDL PARTICLES Percentile in Reference Population HDL-P (total) High 75th 50th 25th Low >34.9 34.9 30.5 26.7 <26.7 . Small LDL-P Low 25th 50th 75th High <117 117 527 839 >839 . LDL Size <-Large (Pattern A)-> <-Small (Pattern B)-> 23.0 20.6 20.5 19.0 Small LDL-P and LDL Size are associated with CVD risk, but not afterLDL-P is taken into account. .These assays were developed and their performance characteristicsdetermined by [employer]. These assays have not been cleared by [place] Food and Drug Administration. The clinical utility of theselaboratory values have not been fully established. Small LDL-P 213 nmol/L (Normal) HDL-P (Total) 38.8 umol/L (Normal) Cholesterol, Total 127 mg/dL (Normal) Range: 100-199 Triglycerides 104 mg/dL (Normal) Range: 0-149 HDL-C 69 mg/dL (Normal) LDL-C 37 mg/dL (Normal) Range: 0-99 Comments: . Optimal < 100 Above optimal 100 - 129 Borderline 1 30 - 159 High 160 - 189 Very high > 189 .LDL-C is inaccurate if patient is non-fasting. LDL-P 394 nmol/L (Normal) Comments: Low < 1000 Moderate 1000 - 1299 Borderline-High 1300 - 1599 High 1600 - 2000 Very High > 2000 43-Lib-844427:59 TSH (57691) Comments: PATIENT WAS FASTINGPERFORMED BY: Stagend[employer]comrp [address] [id number] BY: [employer] Xqzbxk2705 [facility] [id number] TSH 2.960 {uIU/mL} (Normal) Range: 0.450-4.500 16-Cgg-280056:59 COMPLEMENT C4 (40504) Comments: PATIENT WAS FASTINGPERFORMED BY: [employer] LabEmu Messengerrp [address] [id number] BY: [employer] LabCoVoalte Ibgyko22[address] [facility]in [place] [id number] Complement C4, Serum 32 mg/dL (Normal) Range: 14-44 10-Rxe-799964:59 COMPLEMENT C3 (89170) Comments: PATIENT WAS FASTINGPERFORMED BY: [employer] [facility] [address] [id number] BY: [employer] LabCo Hyoalu6645 [address] [facility] [place] [id number] Complement C3, Serum 137 mg/dL (Normal) Range: 82-167 :59 MICROALBUMIN: CREATININE Comments: PATIENT WAS FASTINGPERFORMED BY: [employer] [id number] BY: Charter CommunicationsAstra Health CenterEvilqq3445 [facility] [id number] RATIO (65312) AND (28956) Microalb/Creat Ratio 118.3 {mg/g_creat} (Abnormal) Range: 0.0-30.0 Microalbumin, Urine 52.3 ug/mL (Normal) Creatinine, Urine 44.2 mg/dL (Normal) :59 SPEP (13191) Comments: PATIENT WAS FASTINGPERFORMED BY: [employer]com[address] [id number] BY: NimbitAstra Health CenterBfklci39[address] [place] [address] [id number] Please note: SPRCS (Normal) Comments: Protein electrophoresis scan will follow via computer, mail, orcourier delivery. A/G Ratio 1.2 (Normal) Range: 0.7-1.7 Globulin, Total 3.1 g/dL (Normal) Range: 2.2-3.9 M-Maxime Not Observed g/dL (Normal) Gamma Globulin 0.9 g/dL (Normal) Range: 0.4-1.8 Beta Globulin 1.1 g/dL (Normal) Range: 0.7-1.3 Easxh-8-Hzbmqfip 0.9 g/dL (Normal) Range: 0.4-1.0 Gjmgo-6-Iajhkknz 0.2 g/dL (Normal) Range: 0.0-0.4 Albumin 3.7 g/dL (Normal) Range: 2.9-4.4 Protein, Total, Serum 6.8 g/dL (Normal) Range: 6.0-8.5 :59 DNA ANTIBODY-NATV/DBL ST Comments: PATIENT WAS FASTINGPERFORMED BY: [employer] [id number] BY: Charter CommunicationsTodd Ville 7347070 [facility] [id number] (04438) test code 183111 Anti-DNA (DS) Ab Qn <1 {IU/mL} (Normal) Range: 0-9 Comments: Negative <5 Equivocal 5 - 9 Positive >9 23-Heg-325920:28 Alcohol, Blood (Medical)-Serum Comments: [facility] [address] [place], [address] SERUM ETOH < 3.0 mg/dL (Normal) Comments: The serum:whole blood ethanol ratio is approximately 1.14and varies slightly with hematocrit.Medical Alcohol reference interval and critical value innon-tolerant individuals; 50 - 100 Impairment 100 Intoxication 100 - 250 Severe Poisoning 250 - 400 Deep/possible fatal coma 19-Gsd-902769:28 CBC W/Diff, Automated Comments: [facility] Wlqxqfkqaj5269 [facility] [address] [place], [place], [id number] Absolute Lymph 1.85 {X10_3/ul} (Normal) Range: 0.83-4.51 Absolute Neut 4.5 {X10_3/uL} (Normal) Range: 2.0-7.7 IM GRAN % 0.100 % (Normal) Range: 0.0-0.9 Comments: IG% - Immature Granulocytes (promyelocytes, myelocytes andmetamyelocytes) > 1% indicates that a LEFT SHIFT is Present. BASO% 0.3 % (Normal) Range: 0-1 EO% 1.4 % (Normal) Range: 0-5 MONO% 7.8 % (Normal) Range: 0-10 LY% 26.2 % (Normal) Range: 19-41 NEUT% 64.2 % (Normal) Range: 47-70 MPV 10.4 fL (Normal) Range: 6.2-12.0 PLT 128 K/mm3 (Abnormal) Range: 150-450 RDW SD 46.4 fL (Abnormal) Range: 35.1-43.9 RDW CV 13.4 % (Normal) Range: 11.6-14.6 MCHC 34.5 {g/gl} (Normal) Range: 32-36 MCH 33.9 pg (Abnormal) Range: 27.0-32.0 MCV 98.2 fL (Abnormal) Range: 80-94 HCT 37.4 % (Abnormal) Range: 40-54 HGB 12.9 g/dL (Abnormal) Range: 13.0-16.5 RBC 3.81 {M/mm3} (Abnormal) Range: 4.6-6.2 WBC 7.1 K/mm3 (Normal) Range: 4.4-11.0 [id number] Comprehensive Metabolic Profil Comments: [facility] [id number] [place], [place], [id number] GAP 10 (Normal) Range: 5-15 CO2 29.0 mmol/L (Normal) Range: 21.0-32.0 CL 95 mmol/L (Abnormal) Range: 98-107 K 3.7 mmol/L (Normal) Range: 3.5-5.1 NA 134 mmol/L (Abnormal) Range: 136-145 T BILI 0.70 mg/dL (Normal) Range: 0.20-1.00 ALT 27 U/L (Normal) Range: 12-78 ALK P 92 U/L (Normal) Range: 45-117 AST 23 U/L (Normal) Range: 15-37 CA 8.4 mg/dL (Abnormal) Range: 8.5-10.1 A/G 1.0 {RATIO} (Normal) Range: 0.9-2.4 GLOB 3.6 g/dL (Abnormal) Range: 2.3-3.5 ALB 3.7 g/dL (Normal) Range: 3.4-5.0 T PROT 7.3 g/dL (Normal) Range: 6.4-8.2 BUN/CRE 14.4 {RATIO} (Normal) Range: 10-20 Estimated CRCL 33.24 ml/min (Normal) EST GFR - AA 49 mL/min (Abnormal) Comments: GFR Calc EST GFR 41 mL/min (Abnormal) Comments: Non- GFR Calc CREAT,SERUM 1.74 mg/dL (Abnormal) Range: 0.70-1.30 Comments: The validity of the calculated GFR AND GFRAA in patients over70 years has not been determined. Clinical correlation isessential. BUN 25 mg/dL (Abnormal) Range: 7-18 GLU 153 mg/dL (Abnormal) Range: 70-110 Comments: Fasting Glucose result greater than or equal to 126 mg/dLsuggests DIABETES MELLITUS per A.D.A. criteria. 40-Pey-259022:28 Troponin-I Comments: 'TROP' Serial specimen #1, #2, #3, or #4: 1[facility] [address] [place], [address] TROPONIN-I 0.03 ng/mL (Normal) Comments: TROPONIN-I EXPECTED VALUES <0.05 NEGATIVE 0.06 - 0.59 AT RISK OF NH > OR = 0.60 SUGGEST NH 46-Xwn-576402:08 HgA1C , Office (23739) HgA1C , Office 6.8 % (Normal) Range: 4.6 - 7.1 :59 Metabolic Panel, Basic (86962) Comments: recheck in one week; PATIENT WAS FASTINGPERFORMED BY: [employer] LabCoRe.MuBzoibq9230 [facility] [id number] Calcium, Serum 8.5 mg/dL (Abnormal) Range: 8.6-10.2 Carbon Dioxide, Total 20 mmol/L (Normal) Range: 18-29 Chloride, Serum 97 mmol/L (Normal) Range: 96-106 Potassium, Serum 4.1 mmol/L (Normal) Range: 3.5-5.2 Sodium, Serum 136 mmol/L (Normal) Range: 134-144 BUN/Creatinine Ratio 10 (Normal) Range: 10-22 eGFR If Africn Am 62 mL/min/1.73 (Normal) eGFR If NonAfricn Am 53 mL/min/1.73 (Abnormal) Creatinine, Serum 1.29 mg/dL (Abnormal) Range: 0.76-1.27 BUN 13 mg/dL (Normal) Range: 8-27 Glucose, Serum 136 mg/dL (Abnormal) Range: 65-99 61-Yjb-726315:20 CBC (Auto) (29211) Comments: PATIENT NOT FASTINGPERFORMED BY: [facility] [id number] Platelets 183 {x10E3/uL} (Normal) Range: 150-379 RDW 13.6 % (Normal) Range: 12.3-15.4 MCHC 34.8 g/dL (Normal) Range: 31.5-35.7 MCH 34.1 pg (Abnormal) Range: 26.6-33.0 MCV 98 fL (Abnormal) Range: 79-97 Hematocrit 40.5 % (Normal) Range: 37.5-51.0 Hemoglobin 14.1 g/dL (Normal) Range: 12.6-17.7 RBC 4.13 {x10E6/uL} (Abnormal) Range: 4.14-5.80 WBC 7.9 {x10E3/uL} (Normal) Range: 3.4-10.8 37-Qmh-115069:20 Magnesium (15757) Comments: PATIENT NOT FASTINGPERFORMED BY: [facility]6370 [facility] [id number] Magnesium, Serum 2.2 mg/dL (Normal) Range: 1.6-2.3 :20 Renal function Panel (49833) Comments: PATIENT NOT FASTINGPERFORMED BY: LabCoAstra Health CenterMtbkav0161 [facility] [id number] Albumin, Serum 4.2 g/dL (Normal) Range: 3.5-4.8 Phosphorus, Serum 4.5 mg/dL (Normal) Range: 2.5-4.5 Calcium, Serum 9.2 mg/dL (Normal) Range: 8.6-10.2 Carbon Dioxide, Total 23 mmol/L (Normal) Range: 18-29 Chloride, Serum 86 mmol/L (Abnormal) Range: 96-106 Potassium, Serum 4.5 mmol/L (Normal) Range: 3.5-5.2 Sodium, Serum 131 mmol/L (Abnormal) Range: 134-144 BUN/Creatinine Ratio 19 (Normal) Range: 10-22 eGFR If Africn Am 30 mL/min/1.73 (Abnormal) eGFR If NonAfricn Am 26 mL/min/1.73 (Abnormal) Creatinine, Serum 2.35 mg/dL (Abnormal) Range: 0.76-1.27 BUN 44 mg/dL (Abnormal) Range: 8-27 Glucose, Serum 266 mg/dL (Abnormal) Range: 65-99 56-Mxg-224080:54 Basic Metabolic Profile (BMP) Comments: Order Date: 12/25/16Order Info: 0667-1 - *BMPOrder Info: 53752-3 - *MagnesiumOrder Date: 12/25/16Order Info: - *MagnesiumComments: Reason:[facility] [address] [place], [place], [phone] GAP 11 (Normal) Range: 5-15 CO2 30.0 mmol/L (Normal) Range: 21.0-32.0 CL 94 mmol/L (Abnormal) Range: 98-107 K 3.9 mmol/L (Normal) Range: 3.5-5.1 NA 135 mmol/L (Abnormal) Range: 136-145 CA 8.9 mg/dL (Normal) Range: 8.5-10.1 BUN/CRE 16.2 {RATIO} (Normal) Range: 10-20 EST GFR - AA 46 mL/min (Abnormal) Comments: GFR Calc EST GFR 38 mL/min (Abnormal) Comments: Non- GFR Calc CREAT,SERUM 1.85 mg/dL (Abnormal) Range: 0.70-1.30 Comments: The validity of the calculated GFR AND GFRAA in patients over70 years has not been determined. Clinical correlation isessential. BUN 30 mg/dL (Abnormal) Range: 7-18 GLU 221 mg/dL (Abnormal) Range: 70-110 Comments: Glucose result greater than or equal to 200 mg/dLsuggests DIABETES MELLITUS per A.D.A. criteria. 88-Pmp-892497:54 Magnesium Comments: Order Date: 12/25/16Order Info: 0667-1 - *BMPOrder Info: - *MagnesiumOrder Date: 12/25/16Order Info: - *MagnesiumComments: Reason:[facility] [address] [place], [place], [address] MG 2.0 mg/dL (Normal) Range: 1.8-2.4 51-Gux-503181:35 Basic Metabolic Profile (BMP) Comments: Order Date: 12/18/16Order Info: 0667-1 - *BMPOrder Info: - *MagnesiumComments: For [place] episodeOrder Info: 3026-2 - *T4 (Total)Comments: Reason: For [place] episoeOrder Info: 3016-3 - *TSHComments: Verner son: For [place] episodeOrder Date: 12/18/16Order Info: 3016-3 - *TSHComments: Reason: For [facility] [address] [place], [address] GAP 12 (Normal) Range: 5-15 CO2 31.0 mmol/L (Normal) Range: 21.0-32.0 CL 89 mmol/L (Abnormal) Range: 98-107 K 3.5 mmol/L (Normal) Range: 3.5-5.1 NA 132 mmol/L (Abnormal) Range: 136-145 CA 8.4 mg/dL (Abnormal) Range: 8.5-10.1 BUN/CRE 15.3 {RATIO} (Normal) Range: 10-20 EST GFR - AA 45 mL/min (Abnormal) Comments: GFR Calc EST GFR 37 mL/min (Abnormal) Comments: Non- GFR Calc CREAT,SERUM 1.89 mg/dL (Abnormal) Range: 0.70-1.30 Comments: The validity of the calculated GFR AND GFRAA in patients over70 years has not been determined. Clinical correlation isessential. BUN 29 mg/dL (Abnormal) Range: 7-18 GLU 200 mg/dL (Abnormal) Range: 70-110 Comments: Glucose result greater than or equal to 200 mg/dLsuggests DIABETES MELLITUS per A.D.A. criteria. 38-Atx-983706:35 CBC-Complete Blood Cnt No Diff Comments: Order Date: 12/18/16Order Info: 3016-3 - *TSHComments: Reason: For [facility] [address] [place], [address] MPV 10.7 fL (Normal) Range: 6.2-12.0 PLT 145 K/mm3 (Abnormal) Range: 150-450 RDW SD 43.8 fL (Normal) Range: 35.1-43.9 RDW CV 12.9 % (Normal) Range: 11.6-14.6 MCHC 35.6 {g/gl} (Normal) Range: 32-36 MCH 34.2 pg (Abnormal) Range: 27.0-32.0 MCV 96.1 fL (Abnormal) Range: 80-94 HCT 39.0 % (Abnormal) Range: 40-54 HGB 13.9 g/dL (Normal) Range: 13.0-16.5 RBC 4.06 {M/mm3} (Abnormal) Range: 4.6-6.2 WBC 8.1 K/mm3 (Normal) Range: 4.4-11.0 30-Rvi-329469:35 Magnesium Comments: Order Date: 12/18/16Order Info: 666-1 - *BMPOrder Info: - *MagnesiumComments: For [place] episodeOrder Info: 3026-2 - *T4 (Total)Comments: Reason: For [place] episoeOrder Info: 3015-3 - *TSHComments: Verner son: For [place] episodeOrder Date: 12/18/16Order Info: 3015-3 - *TSHComments: Reason: For [place] episode[facility] [address] [place], [place], [phone]) MG 2.0 mg/dL (Normal) Range: 1.8-2.4 30-Zzs-628510:35 T4 Total, Thyroxin Comments: Order Date: 12/18/16Order Info: 666-10 - *BMPOrder Info: - *MagnesiumComments: For [place] episodeOrder Info: 3026-2 - *T4 (Total)Comments: Reason: For [place] episoeOrder Info: 3015-3 - *TSHC omments: Alicia son: For [place] episodeOrder Date: 12/18/16Order Info: 301-3 - *TSHComments: Reason: [facility] [place] [facility] [address] [place], [place], [phone] T4 THYROXIN 11.3 ug/dL (Normal) Range: 4.5-12.1 30-Vjy-795661:35 Thyroid Stim Hormone (TSH) Comments: Order Date: 12/18/16Order Info: 666-1 - *BMPOrder Info: - *MagnesiumComments: For [place] episodeOrder Info: 3026-2 - *T4 (Total)Comments: Reason: For [place] episoeOrder Info: 3016-3 - *TSHComments: Verner son: For [place] episodeOrder Date: 12/18/16Order Info: 3 - *TSHComments: Reason: [facility] [place] [facility]WM[facility] [address] [place], [address] TSH 0.86 {uIU/mL} (Normal) Range: 0.358-3.74 4-Hfj-006398:05 PSA (Prostate Specific Comments: PATIENT NOT FASTINGPERFORMED BY: LabCoAstra Health CenterTzzohi0601 [facility] [id number] Information: [id number] NURSE DRAW Antigen), Screening (00383) Prostate Specific Ag, 1.0 ng/mL (Normal) Range: 0.0-4.0 Serum Comments: ClickSquaredIA methodology. .According to the [place] [employer], Serum PSA shoulddecrease and remain at undetectable levels after radicalprostatectomy. The AUA defines biochemical recurrence as an initialPSA value 0.2 ng/mL or greater followed by a subsequent confirmatoryPSA value 0.2 ng/mL or greater.Values obtained with d ifferent assay methods or kits cannot be usedinterchangeably. Results cannot be interpreted as absolute evidenceof the presence or absence of malignant disease. 75-Bka-324166:01 Metabolic Panel, Basic Comments: copy to Dr. hu; PATIENT NOT FASTINGPERFORMED BY: LabCoAstra Health CenterEaxdvd7131 [facility] [id number] Information: [id number] (95040) Calcium, Serum 9.3 mg/dL (Normal) Range: 8.6-10.2 Carbon Dioxide, Total 25 mmol/L (Normal) Range: 18-29 Chloride, Serum 89 mmol/L (Abnormal) Range: 97-108 Potassium, Serum 4.3 mmol/L (Normal) Range: 3.5-5.2 Sodium, Serum 133 mmol/L (Abnormal) Range: 134-144 BUN/Creatinine Ratio 15 (Normal) Range: 10-22 eGFR If Africn Am 37 mL/min/1.73 (Abnormal) eGFR If NonAfricn Am 32 mL/min/1.73 (Abnormal) Creatinine, Serum 1.96 mg/dL (Abnormal) Range: 0.76-1.27 BUN 30 mg/dL (Abnormal) Range: 8-27 Glucose, Serum 192 mg/dL (Abnormal) Range: 65-99 99-Cph-420871:49 BNTP (92521) Comments: PATIENT NOT FASTINGPERFORMED BY: [facility] Yqqfpc4441 [facility] [id number] Information: [id number] B-Type Natriuretic Peptide 273.9 pg/mL (Abnormal) Range: 0.0-100.0 4-Nzn-012726:01 HgA1C , Office (87714) HgA1C , Office 6.1 % (Normal) Range: 4.6 - 7.1 38-Ajo-660882:02 Basic Metabolic Profile (BMP) Comments: [facility] [address] [place], [place], [phone] GAP 6 (Normal) Range: 5-15 CO2 26.0 mmol/L (Normal) Range: 21.0-32.0 CL 106 mmol/L (Normal) Range: 98-107 K 4.5 mmol/L (Normal) Range: 3.5-5.1 NA 138 mmol/L (Normal) Range: 136-145 CA 8.4 mg/dL (Abnormal) Range: 8.5-10.1 BUN/CRE 14.1 {RATIO} (Normal) Range: 10-20 EST GFR - AA 66 mL/min (Normal) Comments: GFR Calc EST GFR 55 mL/min (Abnormal) Comments: Non- GFR Calc CREAT,SERUM 1.35 mg/dL (Abnormal) Range: 0.70-1.30 Comments: The validity of the calculated GFR AND GFRAA in patients over70 years has not been determined. Clinical correlation isessential. BUN 19 mg/dL (Abnormal) Range: 7-18 GLU 157 mg/dL (Abnormal) Range: 70-110 Comments: Fasting Glucose result greater than or equal to 126 mg/dLsuggests DIABETES MELLITUS per A.D.A. criteria. 52-Chh-595396:02 BNP,B-Type NATRIURETIC PEPTIDE Comments: [facility] [address] [place], [place], [address] B-TYPE JUSTIN PEP 261.3 pg/mL (Abnormal) Range: 0-100 26-Nqv-685028:22 TSH (77367) Comments: PATIENT NOT FASTINGPERFORMED BY: [facility] Lozeym7570 [facility] [id number] TSH 3.740 {uIU/mL} (Normal) Range: 0.450-4.500 14-Jts-642052:22 METABOLIC PANEL, COMPREHENSIVE Comments: PATIENT NOT FASTINGPERFORMED BY: Plures TechnologiesAscension Standish Hospital6370 [facility] [id number] (25575) ALT (SGPT) 19 [iU]/L (Normal) Range: 0-44 AST (SGOT) 25 [iU]/L (Normal) Range: 0-40 Alkaline Phosphatase, S 85 [iU]/L (Normal) Range: 39-117 Bilirubin, Total 0.6 mg/dL (Normal) Range: 0.0-1.2 A/G Ratio 1.7 (Normal) Range: 1.1-2.5 Globulin, Total 2.6 g/dL (Normal) Range: 1.5-4.5 Albumin, Serum 4.3 g/dL (Normal) Range: 3.5-4.8 Protein, Total, Serum 6.9 g/dL (Normal) Range: 6.0-8.5 Calcium, Serum 8.8 mg/dL (Normal) Range: 8.6-10.2 Carbon Dioxide, Total 22 mmol/L (Normal) Range: 18-29 Chloride, Serum 93 mmol/L (Abnormal) Range: 97-108 Potassium, Serum 4.0 mmol/L (Normal) Range: 3.5-5.2 Sodium, Serum 136 mmol/L (Normal) Range: 134-144 BUN/Creatinine Ratio 19 (Normal) Range: 10-22 eGFR If Africn Am 56 mL/min/1.73 (Abnormal) eGFR If NonAfricn Am 49 mL/min/1.73 (Abnormal) Creatinine, Serum 1.40 mg/dL (Abnormal) Range: 0.76-1.27 BUN 27 mg/dL (Normal) Range: 8-27 Glucose, Serum 155 mg/dL (Abnormal) Range: 65-99 23-Seu-556494:22 CBC W/AUTO DIFF WBC Comments: PATIENT NOT FASTINGPERFORMED BY: [facility]6370 [facility] [id number] Information: [id number]; [address] (51750) Immature Grans (Abs) 0.0 {x10E3/uL} (Normal) Range: 0.0-0.1 Immature Granulocytes 0 % (Normal) Baso (Absolute) 0.0 {x10E3/uL} (Normal) Range: 0.0-0.2 Eos (Absolute) 0.3 {x10E3/uL} (Normal) Range: 0.0-0.4 Monocytes(Absolute) 0.7 {x10E3/uL} (Normal) Range: 0.1-0.9 Lymphs (Absolute) 1.9 {x10E3/uL} (Normal) Range: 0.7-3.1 Neutrophils (Absolute) 4.7 {x10E3/uL} (Normal) Range: 1.4-7.0 Basos 0 % (Normal) Eos 4 % (Normal) Monocytes 9 % (Normal) Lymphs 25 % (Normal) Neutrophils 62 % (Normal) Platelets 144 {x10E3/uL} (Abnormal) Range: 150-379 RDW 13.3 % (Normal) Range: 12.3-15.4 MCHC 34.1 g/dL (Normal) Range: 31.5-35.7 MCH 32.9 pg (Normal) Range: 26.6-33.0 MCV 97 fL (Normal) Range: 79-97 Hematocrit 41.6 % (Normal) Range: 37.5-51.0 Hemoglobin 14.2 g/dL (Normal) Range: 12.6-17.7 RBC 4.31 {x10E6/uL} (Normal) Range: 4.14-5.80 WBC 7.6 {x10E3/uL} (Normal) Range: 3.4-10.8 :57 HgA1C , Office (38227) HgA1C , Office 7.1 % (Normal) Range: 4.6 - 7.1 :13 Lipid Profile Comments: [facility] [address] [place], [place], [id number] VLDL 78 mg/dL (Abnormal) Range: 5-40 LDL 36 mg/dL (Normal) Range: 0-130 HDL 51 mg/dL (Normal) Comments: Reference Range HDL <40 mg/dL Low HDL Cholesterol HDL >or= 60 mg/dL High HDL Cholesterol TRIG 390 mg/dL (Abnormal) Comments: Serum Triglycerides Reference Interval Normal <150 mg/dL Borderline high 150 - 199 mg/dL High 200 - 499 mg/dL Very High > or = 500 mg/dL CHOL 165 mg/dL (Normal) Comments: <200 mg/dL Desirable 200-240 mg/dL Borderline >240 mg/dL High Risk :13 Liver Profile Comments: [facility] [address] [place], [address] D BILI 0.10 mg/dL (Normal) Range: 0.00-0.30 T BILI 0.40 mg/dL (Normal) Range: 0.20-1.00 ALT 30 U/L (Normal) Range: 12-78 ALK P 99 U/L (Normal) Range: 50-136 AST 23 U/L (Normal) Range: 15-37 GLOB 3.6 g/dL (Abnormal) Range: 2.3-3.5 ALB 3.3 g/dL (Abnormal) Range: 3.4-5.0 T PROT 6.9 g/dL (Normal) Range: 6.4-8.2 01-Aso-261561:33 Blood Glucose , Office (72772) Blood Glucose , Office 184 (Normal) Comments: told to stop juices and tighten diet :25 METABOLIC PANEL, BASIC Comments: PATIENT NOT FASTINGPERFORMED BY: [facility] Tnkulk6967 [facility] [id number] Information: [id number]; apt. 10-26-15 creat stayed same (05442) Calcium, Serum 9.0 mg/dL (Normal) Range: 8.6-10.2 Carbon Dioxide, Total 24 mmol/L (Normal) Range: 18-29 Chloride, Serum 96 mmol/L (Abnormal) Range: 97-108 Potassium, Serum 4.2 mmol/L (Normal) Range: 3.5-5.2 Sodium, Serum 135 mmol/L (Normal) Range: 134-144 BUN/Creatinine Ratio 12 (Normal) Range: 10-22 eGFR If Africn Am 58 mL/min/1.73 (Abnormal) eGFR If NonAfricn Am 50 mL/min/1.73 (Abnormal) Creatinine, Serum 1.37 mg/dL (Abnormal) Range: 0.76-1.27 BUN 17 mg/dL (Normal) Range: 8-27 Glucose, Serum 127 mg/dL (Abnormal) Range: 65-99 29-Jgh-043559:26 Metabolic Panel, Basic Comments: standing order; PATIENT NOT FASTINGPERFORMED BY: [employer] Wearlin6370 [facility] [id number] Information: [id number] (82288) Calcium, Serum 9.1 mg/dL (Normal) Range: 8.6-10.2 Carbon Dioxide, Total 25 mmol/L (Normal) Range: 18-29 Chloride, Serum 84 mmol/L (Abnormal) Range: 97-108 Potassium, Serum 4.4 mmol/L (Normal) Range: 3.5-5.2 Sodium, Serum 129 mmol/L (Abnormal) Range: 134-144 BUN/Creatinine Ratio 27 (Abnormal) Range: 10-22 eGFR If Africn Am 58 mL/min/1.73 (Abnormal) eGFR If NonAfricn Am 50 mL/min/1.73 (Abnormal) Creatinine, Serum 1.37 mg/dL (Abnormal) Range: 0.76-1.27 BUN 37 mg/dL (Abnormal) Range: 8-27 Glucose, Serum 338 mg/dL (Abnormal) Range: 65-99 :36 CULTURE, SPUTUM (76711) Comments: PATIENT NOT FASTINGPERFORMED BY: [employer] Nfeltp7342 [facility] [id number] Information: SRC:[facility] [id number] Result 1 RRF (Normal) Comments: Routine respiratory liu Lower Respiratory Culture Final report (Normal) :31 HgA1C , Office (49552) HgA1C , Office 6.4 % (Normal) Range: 4.6 - 7.1 :31 Blood Glucose , Office (18094) Blood Glucose , Office 282 (Normal) :38 PSA (PROSTATE SPECIFIC Comments: PATIENT NOT FASTINGPERFORMED BY: Charter CommunicationsTodd [place] 7347070 [facility] [id number] ANTIGEN) (V76.44) Prostate Specific Ag, 1.0 ng/mL (Normal) Range: 0.0-4.0 Serum Comments: Erik ECLIA methodology. .According to the [place] [employer], Serum PSA shoulddecrease and remain at undetectable levels after radicalprostatectomy. The AUA defines biochemical recurrence as an initialPSA value 0.2 ng/mL or greater followed by a subsequent confirmatoryPSA value 0.2 ng/mL or greater.Values obtained with d ifferent assay methods or kits cannot be usedinterchangeably. Results cannot be interpreted as absolute evidenceof the presence or absence of malignant disease. :38 TSH (31317) Comments: PATIENT NOT FASTINGPERFORMED BY: [employer] [facility] [address]nsv[address] MoverDublin [place] [id number] TSH 4.310 {uIU/mL} (Normal) Range: 0.450-4.500 :38 Magnesium (12280) Comments: PATIENT NOT FASTINGPERFORMED BY: [employer] [facility] Wmazty57[address] Sweeney RoadDublin [place] [id number] Magnesium, Serum 1.9 mg/dL (Normal) Range: 1.6-2.6 :38 Metabolic Panel, Comments: PATIENT NOT FASTINGPERFORMED BY: [facility] Nxgnpz4696 [address] [facility] [place] [id number] Information: [id number]; [address] [facility] (11415) ALT (SGPT) 28 [iU]/L (Normal) Range: 0-44 AST (SGOT) 26 [iU]/L (Normal) Range: 0-40 Alkaline Phosphatase, S 85 [iU]/L (Normal) Range: 39-117 Bilirubin, Total 0.6 mg/dL (Normal) Range: 0.0-1.2 A/G Ratio 1.6 (Normal) Range: 1.1-2.5 Globulin, Total 2.5 g/dL (Normal) Range: 1.5-4.5 Albumin, Serum 4.1 g/dL (Normal) Range: 3.5-4.8 Protein, Total, Serum 6.6 g/dL (Normal) Range: 6.0-8.5 Calcium, Serum 9.1 mg/dL (Normal) Range: 8.6-10.2 Carbon Dioxide, Total 23 mmol/L (Normal) Range: 18-29 Chloride, Serum 96 mmol/L (Abnormal) Range: 97-108 Potassium, Serum 4.3 mmol/L (Normal) Range: 3.5-5.2 Sodium, Serum 137 mmol/L (Normal) Range: 134-144 BUN/Creatinine Ratio 13 (Normal) Range: 10-22 eGFR If Africn Am 59 mL/min/1.73 (Abnormal) eGFR If NonAfricn Am 51 mL/min/1.73 (Abnormal) Creatinine, Serum 1.35 mg/dL (Abnormal) Range: 0.76-1.27 BUN 18 mg/dL (Normal) Range: 8-27 Glucose, Serum 163 mg/dL (Abnormal) Range: 65-99 :08 HgA1C , Office (79695) HgA1C , Office 6.5 % (Normal) Range: 4.6 - 7.1 :08 Blood Glucose , Office (94035) Blood Glucose , Office 277 (Normal) :52 CBC, Platelet, No Differential Comments: PATIENT WAS FASTINGPERFORMED BY: [employer] [facility] [id number] Platelets 184 {x10E3/uL} (Normal) Range: 150-379 RDW 14.1 % (Normal) Range: 12.3-15.4 MCHC 34.2 g/dL (Normal) Range: 31.5-35.7 MCH 33.7 pg (Abnormal) Range: 26.6-33.0 MCV 99 fL (Abnormal) Range: 79-97 Hematocrit 40.3 % (Normal) Range: 37.5-51.0 Hemoglobin 13.8 g/dL (Normal) Range: 12.6-17.7 RBC 4.09 {x10E6/uL} (Abnormal) Range: 4.14-5.80 WBC 8.2 {x10E3/uL} (Normal) Range: 3.4-10.8 :52 Renal Panel (10) Comments: PATIENT WAS FASTINGPERFORMED BY: NimbitAstra Health CenterYczxgu1829 [facility] [id number] Information: [id number] Albumin, Serum 4.1 g/dL (Normal) Range: 3.5-4.8 Phosphorus, Serum 3.1 mg/dL (Normal) Range: 2.5-4.5 Calcium, Serum 9.2 mg/dL (Normal) Range: 8.6-10.2 Carbon Dioxide, Total 24 mmol/L (Normal) Range: 18-29 Chloride, Serum 92 mmol/L (Abnormal) Range: 97-108 Potassium, Serum 4.2 mmol/L (Normal) Range: 3.5-5.2 Sodium, Serum 135 mmol/L (Normal) Range: 134-144 BUN/Creatinine Ratio 17 (Normal) Range: 10-22 eGFR If Africn Am 48 mL/min/1.73 (Abnormal) eGFR If NonAfricn Am 41 mL/min/1.73 (Abnormal) Creatinine, Serum 1.61 mg/dL (Abnormal) Range: 0.76-1.27 BUN 28 mg/dL (Abnormal) Range: 8-27 Glucose, Serum 153 mg/dL (Abnormal) Range: 65-99 :05 Lipid Profile Comments: Test performed at:[facility] [address] [place], [place] [id number] VLDL 35 mg/dL (Normal) Range: 5-40 LDL 32 mg/dL (Normal) Range: 0-130 HDL 52 mg/dL (Normal) Comments: Reference Range HDL <40 mg/dL Low HDL Cholesterol HDL >or= 60 mg/dL High HDL Cholesterol TRIG 174 mg/dL (Normal) Range: 0-199 Comments: Serum Triglycerides Reference Interval Normal <150 mg/dL Borderline high 150 - 199 mg/dL High 200 - 499 mg/dL Very High > or = 500 mg/dL CHOL 119 mg/dL (Normal) Comments: <200 mg/dL Desirable 200-240 mg/dL Borderline >240 mg/dL High Risk :05 Liver Profile Comments: Test performed at:[facility] Zmdxzkcddh2709 [facility] [address] [place], [place] [address] D BILI 0.20 mg/dL (Normal) Range: 0.00-0.30 T BILI 0.70 mg/dL (Normal) Range: 0.00-4.00 ALT 27 U/L (Normal) Range: 12-78 ALK P 80 U/L (Normal) Range: 50-136 AST 26 U/L (Normal) Range: 15-37 GLOB 3.4 g/dL (Normal) Range: 2.7-4.2 ALB 3.7 g/dL (Normal) Range: 3.4-5.0 T PROT 7.1 g/dL (Normal) Range: 6.4-8.2 67-Eoo-573771:47 Vitamin B-12 Comments: these today; PATIENT NOT FASTINGPERFORMED BY: [employer] Rlnsvp9317 [address] [facility]in [place] [id number] BY: [employer] [id number] (cyanocobalamin) (37225) Vitamin B12 526 pg/mL (Normal) Range: 211-946 73-Nlm-207337:47 RETICULOCYTE COUNT (54392) Comments: PATIENT NOT FASTINGPERFORMED BY: [employer]70 [facility] [id number] BY: [employer] [id number] Reticulocyte Count 2.1 % (Normal) Range: 0.6-2.6 15-Uhu-043477:47 Folic Acid Serum (64945) Comments: PATIENT NOT FASTINGPERFORMED BY: [employer] [address] [facility] [id number] BY: [employer] [id number] Information: [id number] Folate (Folic Acid), Serum >20.0 ng/mL (Normal) Comments: A serum folate concentration of less than 3.1 ng/mL isconsidered to represent clinical deficiency. 10-Ovx-178824:47 Methymalonic Acid, Serum Comments: PATIENT NOT FASTINGPERFORMED BY: [employer]7195 [facility] [id number] BY: [employer] [id number] ([id number]) Methylmalonic Acid, Serum 219 nmol/L (Normal) Range: 0-378 14-Awg-84909:42 HgA1C , Office (27555) HgA1C , Office 6.5 % (Normal) Range: 4.6 - 7.1 :42 Blood Glucose , Office (34270) Blood Glucose , Office 194 (Normal) 84-Cov-101122:13 Basic Metabolic Profile (BMP) Comments: Test performed at:[facility] [id number] [facility] [place] [address] GAP 8 (Normal) Range: 5-15 CO2 28.0 mmol/L (Normal) Range: 21.0-32.0 CL 96 mmol/L (Abnormal) Range: 98-107 K 3.8 mmol/L (Normal) Range: 3.5-5.1 NA 132 mmol/L (Abnormal) Range: 136-145 CA 8.7 mg/dL (Normal) Range: 8.5-10.1 BUN/CRE 13.8 {RATIO} (Normal) Range: 10-20 CREAT,SERUM 1.6 mg/dL (Abnormal) Range: 0.8-1.3 BUN 22 mg/dL (Abnormal) Range: 7-18 GLU 160 mg/dL (Abnormal) Range: 70-110 Comments: Fasting Glucose result greater than or equal to 126 mg/dLsuggests DIABETES MELLITUS per A.D.A. criteria. 43-Unn-19312:22 Basic Metabolic Profile (BMP) Comments: Test performed at:[facility] [id number] [facility] [place] [address] GAP 6 (Normal) Range: 5-15 CO2 29.0 mmol/L (Normal) Range: 21.0-32.0 CL 96 mmol/L (Abnormal) Range: 98-107 K 4.1 mmol/L (Normal) Range: 3.5-5.1 NA 131 mmol/L (Abnormal) Range: 136-145 CA 8.6 mg/dL (Normal) Range: 8.5-10.1 BUN/CRE 15.6 {RATIO} (Normal) Range: 10-20 CREAT,SERUM 1.8 mg/dL (Abnormal) Range: 0.8-1.3 BUN 28 mg/dL (Abnormal) Range: 7-18 GLU 155 mg/dL (Abnormal) Range: 70-110 Comments: Fasting Glucose result greater than or equal to 126 mg/dLsuggests DIABETES MELLITUS per A.D.A. criteria. 50-Bcx-66453:22 BNP,B-Type NATRIURETIC PEPTIDE Comments: Test performed at:[facility] [address] [place], [place] [address] B-TYPE JUSTIN PEP 337.5 pg/mL (Abnormal) Range: 0-100 02-Sla-910217:19 Magnesium (12469) Comments: 2 weeks and in three months (approximately); PATIENT WAS FASTINGPERFORMED BY: [facility] Lsfjez1626 [facility] [id number] Magnesium, Serum 1.9 mg/dL (Normal) Range: 1.6-2.6 56-Sjf-700423:19 Renal function Panel (39882) Comments: 2 weeks; PATIENT WAS FASTINGPERFORMED BY: [facility]CoCarrie [facility]ingley HospitalXdkmyb0909 [facility] [id number] Phosphorus, Serum 3.2 mg/dL (Normal) Range: 2.5-4.5 67-Rdy-093362:19 TSH (66302) Comments: PATIENT WAS FASTINGPERFORMED BY: [facility] Evijxx0179 [facility] [id number] TSH 2.460 {uIU/mL} (Normal) Range: 0.450-4.500 02-Mni-714682:19 METABOLIC PANEL, COMPREHENSIVE Comments: PATIENT WAS FASTINGPERFORMED BY: [facility] Mhtoxu1144 [facility] [id number] (17196) ALT (SGPT) 21 [iU]/L (Normal) Range: 0-44 AST (SGOT) 24 [iU]/L (Normal) Range: 0-40 Alkaline Phosphatase, S 77 [iU]/L (Normal) Range: 39-117 Bilirubin, Total 0.9 mg/dL (Normal) Range: 0.0-1.2 A/G Ratio 1.7 (Normal) Range: 1.1-2.5 Globulin, Total 2.5 g/dL (Normal) Range: 1.5-4.5 Albumin, Serum 4.2 g/dL (Normal) Range: 3.5-4.8 Protein, Total, Serum 6.7 g/dL (Normal) Range: 6.0-8.5 Calcium, Serum 8.5 mg/dL (Abnormal) Range: 8.6-10.2 Carbon Dioxide, Total 24 mmol/L (Normal) Range: 18-29 Chloride, Serum 97 mmol/L (Normal) Range: 97-108 Potassium, Serum 4.3 mmol/L (Normal) Range: 3.5-5.2 Sodium, Serum 138 mmol/L (Normal) Range: 134-144 BUN/Creatinine Ratio 13 (Normal) Range: 10-22 eGFR If Africn Am 49 mL/min/1.73 (Abnormal) eGFR If NonAfricn Am 42 mL/min/1.73 (Abnormal) Creatinine, Serum 1.59 mg/dL (Abnormal) Range: 0.76-1.27 BUN 21 mg/dL (Normal) Range: 8-27 Glucose, Serum 131 mg/dL (Abnormal) Range: 65-99 64-Zzd-170703:19 LIPID PANEL (81680) Comments: PATIENT WAS FASTINGPERFORMED BY: [employer]70 [facility] [id number] LDL/HDL Ratio 0.7 {ratio_units} (Normal) Range: 0.0-3.6 Comments: LDL/HDL Ratio Men Women 1/2 Avg.Risk 1.0 1.5 Av g.Risk 3.6 3.2 2X Avg.Risk 6.2 5.0 3X Avg.Risk 8.0 6.1 LDL Cholesterol Calc 39 mg/dL (Normal) Range: 0-99 VLDL Cholesterol Mike 25 mg/dL (Normal) Range: 5-40 HDL Cholesterol 54 mg/dL (Normal) Comments: According to ATP-III Guidelines, HDL-C >59 mg/dL is considered anegative risk factor for CHD. Triglycerides 123 mg/dL (Normal) Range: 0-149 Cholesterol, Total 118 mg/dL (Normal) Range: 100-199 32-Ayo-899132:19 CBC W/AUTO DIFF WBC Comments: PATIENT WAS FASTINGPERFORMED BY: [employer]70 [facility] [id number] Information: [id number] (17775) Immature Grans (Abs) 0.0 {x10E3/uL} (Normal) Range: 0.0-0.1 Immature Granulocytes 0 % (Normal) Baso (Absolute) 0.0 {x10E3/uL} (Normal) Range: 0.0-0.2 Eos (Absolute) 0.3 {x10E3/uL} (Normal) Range: 0.0-0.4 Monocytes(Absolute) 0.7 {x10E3/uL} (Normal) Range: 0.1-0.9 Lymphs (Absolute) 1.9 {x10E3/uL} (Normal) Range: 0.7-3.1 Neutrophils (Absolute) 5.8 {x10E3/uL} (Normal) Range: 1.4-7.0 Basos 0 % (Normal) Eos 3 % (Normal) Monocytes 8 % (Normal) Lymphs 22 % (Normal) Neutrophils 67 % (Normal) Platelets 159 {x10E3/uL} (Normal) Range: 150-379 RDW 14.5 % (Normal) Range: 12.3-15.4 MCHC 33.4 g/dL (Normal) Range: 31.5-35.7 MCH 33.6 pg (Abnormal) Range: 26.6-33.0 MCV 101 fL (Abnormal) Range: 79-97 Hematocrit 41.6 % (Normal) Range: 37.5-51.0 Hemoglobin 13.9 g/dL (Normal) Range: 12.6-17.7 RBC 4.14 {x10E6/uL} (Normal) Range: 4.14-5.80 WBC 8.7 {x10E3/uL} (Normal) Range: 3.4-10.8 :38 Blood Glucose , Office (75515) Blood Glucose , Office 229 (Normal) :38 HgA1C , Office (37820) HgA1C , Office 6.7 % (Normal) Range: 4.6 - 7.1 :23 Basic Metabolic Profile (BMP) Comments: Test performed at:[facility] [address] [place], [place] [id number] GAP 6 (Normal) Range: 5-15 CO2 28.0 mmol/L (Normal) Range: 21.0-32.0 CL 99 mmol/L (Normal) Range: 98-107 K 4.0 mmol/L (Normal) Range: 3.5-5.1 NA 133 mmol/L (Abnormal) Range: 136-145 CA 8.8 mg/dL (Normal) Range: 8.5-10.1 BUN/CRE 8.0 {RATIO} (Abnormal) Range: 10-20 CREAT,SERUM 1.5 mg/dL (Abnormal) Range: 0.8-1.3 BUN 12 mg/dL (Normal) Range: 7-18 GLU 142 mg/dL (Abnormal) Range: 70-110 Comments: Fasting Glucose result greater than or equal to 126 mg/dLsuggests DIABETES MELLITUS per A.D.A. criteria. 95-Xwp-907707:23 BNP,B-Type NATRIURETIC PEPTIDE Comments: Test performed at:[facility] [address] [place], [place] [id number] B-TYPE JUSTIN PEP 348.7 pg/mL (Abnormal) Range: 0-100 :58 BMP GAP 7 (Normal) Range: 5-15 CO2 28.0 mmol/L (Normal) Range: 21.0-32.0 CL 98 mmol/L (Normal) Range: 98-107 K 4.0 mmol/L (Normal) Range: 3.5-5.1 NA 133 mmol/L (Abnormal) Range: 136-145 CA 9.6 mg/dL (Normal) Range: 8.5-10.1 BC 17.5 {RATIO} (Normal) Range: 10-20 CREAT 1.6 mg/dL (Abnormal) Range: 0.8-1.3 BUN 28 mg/dL (Abnormal) Range: 7-18 GLU 138 mg/dL (Abnormal) Range: 70-110 Comments: Fasting Glucose result greater than or equal to 126 mg/dLsuggests DIABETES MELLITUS per A.D.A. criteria. :58 BTNP 261.6 pg/mL (Abnormal) Range: 0-100 06-Pks-842085:47 CBC (Auto) (44152) Comments: PATIENT NOT FASTINGPERFORMED BY: [facility] Dkinfn1994 [facility] [id number] Platelets 165 {x10E3/uL} (Normal) Range: 150-379 RDW 13.9 % (Normal) Range: 12.3-15.4 MCHC 34.3 g/dL (Normal) Range: 31.5-35.7 MCH 33.8 pg (Abnormal) Range: 26.6-33.0 MCV 99 fL (Abnormal) Range: 79-97 Hematocrit 38.5 % (Normal) Range: 37.5-51.0 Hemoglobin 13.2 g/dL (Normal) Range: 12.6-17.7 RBC 3.91 {x10E6/uL} (Abnormal) Range: 4.14-5.80 WBC 6.7 {x10E3/uL} (Normal) Range: 3.4-10.8 25-Eiq-433202:47 Renal function Panel Comments: PATIENT NOT FASTINGPERFORMED BY: Charter CommunicationsAstra Health CenterSbfcrr5317 [facility] [id number] Information: [id number] (23895) Albumin, Serum 4.0 g/dL (Normal) Range: 3.5-4.8 Phosphorus, Serum 3.6 mg/dL (Normal) Range: 2.5-4.5 Calcium, Serum 8.8 mg/dL (Normal) Range: 8.6-10.2 Carbon Dioxide, Total 22 mmol/L (Normal) Range: 18-29 Chloride, Serum 96 mmol/L (Abnormal) Range: 97-108 Potassium, Serum 4.1 mmol/L (Normal) Range: 3.5-5.2 Sodium, Serum 136 mmol/L (Normal) Range: 134-144 BUN/Creatinine Ratio 9 (Abnormal) Range: 10-22 eGFR If Africn Am 58 mL/min/1.73 (Abnormal) eGFR If NonAfricn Am 50 mL/min/1.73 (Abnormal) Creatinine, Serum 1.38 mg/dL (Abnormal) Range: 0.76-1.27 BUN 12 mg/dL (Normal) Range: 8-27 Glucose, Serum 144 mg/dL (Abnormal) Range: 65-99 99-Bwh-822256:47 MAGNESIUM (28603) Comments: PATIENT NOT FASTINGPERFORMED BY: LabCoAstra Health CenterCpnbhw3040 [facility] [id number] Magnesium, Serum 1.7 mg/dL (Normal) Range: 1.6-2.6 :28 HgA1C , Office (60897) HgA1C , Office 6.6 % (Normal) Range: 4.6 - 7.1 :28 Blood Glucose , Office (62005) Blood Glucose , Office 148 (Normal) :54 CBCD Comments: OLLIE ANDREW ORDERED CBCD TSH T4DR BONEZZI ORDERED PSA TSH CBCD LIPID CMP KATELYN ALC 1.43 {X10_3/ul} (Normal) Range: 0.83-4.51 ANC 4.2 {X10_3/uL} (Normal) Range: 2.0-7.7 IG% 0.200 % (Normal) Range: 0.0-0.9 Comments: IG% - Immature Granulocytes (promyelocytes, myelocytes andmetamyelocytes) > 1% indicates that a LEFT SHIFT is Present. B% 0.5 % (Normal) Range: 0-1 E% 3.3 % (Normal) Range: 0-5 M% 10.3 % (Abnormal) Range: 0-10 L% 21.7 % (Normal) Range: 19-41 N% 64.0 % (Normal) Range: 47-70 MPV 10.0 fL (Normal) Range: 6.2-12.0 PLT 168 K/mm3 (Normal) Range: 150-450 RDWSD 43.0 fL (Normal) Range: 35.1-43.9 RDWCV 12.8 % (Normal) Range: 11.6-14.6 MCHC 34.8 {g/gl} (Normal) Range: 32-36 MCH 32.9 pg (Abnormal) Range: 27.0-32.0 MCV 94.5 fL (Abnormal) Range: 80-94 HCT 41.1 % (Normal) Range: 40-54 HGB 14.3 g/dL (Normal) Range: 13.0-16.5 RBC 4.35 {M/mm3} (Abnormal) Range: 4.6-6.2 WBC 6.6 K/mm3 (Normal) Range: 4.4-11.0 :54 CMP Comments: DR HU ORDERED SHAYY ANDREW ORDERED CBCD TSH T4DR BONEZZI ORDERED PSA TSH CBCD LIPID CMP MIAMAG ADDED PER REQUEST GAP 7 (Normal) Range: 5-15 CO2 27.0 mmol/L (Normal) Range: 21.0-32.0 CL 98 mmol/L (Normal) Range: 98-107 K 4.3 mmol/L (Normal) Range: 3.5-5.1 NA 132 mmol/L (Abnormal) Range: 136-145 BIT 0.60 mg/dL (Normal) Range: 0.00-1.00 ALK 77 U/L (Normal) Range: 45-117 ALT 31 U/L (Normal) Range: 12-78 AST 26 U/L (Normal) Range: 15-37 CA 8.5 mg/dL (Normal) Range: 8.5-10.1 AG 1.1 {RATIO} (Normal) Range: 0.9-2.4 ALB 3.8 g/dL (Normal) Range: 3.4-5.0 GLOB 3.5 g/dL (Normal) Range: 2.7-4.2 TPROT 7.3 g/dL (Normal) Range: 6.4-8.2 BC 15.0 {RATIO} (Normal) Range: 10-20 CREAT 1.6 mg/dL (Abnormal) Range: 0.8-1.3 BUN 24 mg/dL (Abnormal) Range: 7-18 GLU 126 mg/dL (Abnormal) Range: 70-110 Comments: Fasting Glucose result greater than or equal to 126 mg/dLsuggests DIABETES MELLITUS per A.D.A. criteria. :54 LIPID Comments: DR HU ORDERED SHAYY ANDREW ORDERED CBCD TSH T4DR BONEZZI ORDERED PSA TSH CBCD LIPID CMP MIAMAG ADDED PER REQUEST LDL 43 mg/dL (Normal) Range: 0-130 VLDL 25 mg/dL (Normal) Range: 5-40 CHOL 130 mg/dL (Normal) Comments: <200 mg/dL Tifnlmnou827-531 mg/dL Borderline>240 mg/dL High Risk HDL 62 mg/dL (Normal) Comments: Reference RangeHDL <40 mg/dL Low HDL CholesterolHDL >or= 60 mg/dL High HDL Cholesterol TRIG 126 mg/dL (Normal) Range: 0-199 Comments: Serum Triglycerides Reference IntervalNormal <150 mg/dLBorderline high 150 - 199 mg/dLHigh 200 - 499 mg/ dLVery High > or = 500 mg/dL :54 MG 1.9 mg/dL (Normal) Comments: DR HU ORDERED SHAYY ANDREW ORDERED CBCD TSH T4DR BONEZZI ORDERED PSA TSH CBCD LIPID CMP MIAMAG ADDED PER REQUEST Range: 1.8-2.4 :54 MIACRE MIALB 34.3 mg/L (Normal) tMICROCREAT 17.5 {mg/g_CRE} (Normal) CREU 195.6 mg/dL (Normal) :54 PSA 1.30 ng/mL (Normal) Comments: DR HU ORDERED SHAYY ANDREW ORDERED CBCD TSH T4DR BONEZZI ORDERED PSA TSH CBCD LIPID CMP MIAMAG ADDED PER REQUEST Range: 0.00-4.00 Comments: This test was performed using the TPSA assay method for [employer] chemistry system. Values obtained with differentassay methods cannot be used interchangably.When changing PSA assays in the course of monitoring apatient, additional sequential testing should be carriedout to confirm baseline values. :54 T4 8.3 ug/dL (Normal) Comments: DR HU ORDERED SHAYY ANDREW ORDERED CBCD TSH T4DR BONEZZI ORDERED PSA TSH CBCD LIPID CMP MIAMAG ADDED PER REQUEST Range: 4.5-12.1 :54 TSH 2.50 {uIU/mL} (Normal) Comments: DR HU ORDERED SHAYY ANDREW ORDERED CBCD TSH T4DR BONEZZI ORDERED PSA TSH CBCD LIPID CMP MIAMAG ADDED PER REQUEST Range: 0.358-3.74 36-Eiw-117234:13 BMP GAP 7 (Normal) Range: 5-15 CO2 26.0 mmol/L (Normal) Range: 21.0-32.0 CL 100 mmol/L (Normal) Range: 98-107 K 4.2 mmol/L (Normal) Range: 3.5-5.1 NA 133 mmol/L (Abnormal) Range: 136-145 BC 18.2 {RATIO} (Normal) Range: 10-20 CA 9.0 mg/dL (Normal) Range: 8.5-10.1 CREAT 1.7 mg/dL (Abnormal) Range: 0.8-1.3 BUN 31 mg/dL (Abnormal) Range: 7-18 GLU 136 mg/dL (Abnormal) Range: 70-110 Comments: Fasting Glucose result greater than or equal to 126 mg/dLsuggests DIABETES MELLITUS per A.D.A. criteria. 28-Yok-19782:37 Metabolic Panel, Basic Comments: recheck in 1-2 weeks; PATIENT NOT FASTINGPERFORMED BY: [place] [id number] [facility] [id number] Information: [id number] (77993) Calcium, Serum 8.7 mg/dL (Normal) Range: 8.6-10.2 Carbon Dioxide, Total 22 mmol/L (Normal) Range: 19-28 Chloride, Serum 97 mmol/L (Normal) Range: 97-108 Potassium, Serum 4.0 mmol/L (Normal) Range: 3.5-5.2 Sodium, Serum 135 mmol/L (Normal) Range: 134-144 BUN/Creatinine Ratio 17 (Normal) Range: 10-22 eGFR If Africn Am 61 mL/min/1.73 (Normal) eGFR If NonAfricn Am 53 mL/min/1.73 (Abnormal) Creatinine, Serum 1.33 mg/dL (Abnormal) Range: 0.76-1.27 BUN 23 mg/dL (Normal) Range: 8-27 Glucose, Serum 161 mg/dL (Abnormal) Range: 65-99 95-Qtv-694950:00 BNTP (70994) Comments: PATIENT NOT FASTINGPERFORMED BY: [address] [id number] Information: [id number] ORDER NO DRAW F EE B-Type Natriuretic Peptide 899.8 pg/mL (Abnormal) Range: 0.0-100.0 22-Luc-132701:14 CULTURE, SPUTUM (65235) Comments: PATIENT NOT FASTINGPERFORMED BY: [address] [id number] Result 1 RRF (Normal) Comments: Routine respiratory liu Lower Respiratory Culture Final report (Normal) 34-Kdv-152284:00 Metabolic Panel, Basic Comments: PATIENT NOT FASTINGPERFORMED BY: [place] [id number] [facility] [id number] Information: [id number] (29473) Calcium, Serum 8.6 mg/dL (Normal) Range: 8.6-10.2 Carbon Dioxide, Total 23 mmol/L (Normal) Range: 19-28 Chloride, Serum 101 mmol/L (Normal) Range: 97-108 Potassium, Serum 4.2 mmol/L (Normal) Range: 3.5-5.2 BUN/Creatinine Ratio 17 (Normal) Range: 10-22 Sodium, Serum 136 mmol/L (Normal) Range: 134-144 eGFR If Africn Am 79 mL/min/1.73 (Normal) eGFR If NonAfricn Am 68 mL/min/1.73 (Normal) Creatinine, Serum 1.07 mg/dL (Normal) Range: 0.76-1.27 BUN 18 mg/dL (Normal) Range: 8-27 Glucose, Serum 129 mg/dL (Abnormal) Range: 65-99 95-Hje-380450:22 CBC WITH MANUAL DIFF Comments: all copies of labs to Dr. hu; PATIENT WAS FASTINGPERFORMED BY: LabCoAstra [facility] CenterTrxcrp4214 [facility] [id number] Information: [id number] (05557) Immature Grans (Abs) 0.0 {x10E3/uL} (Normal) Range: 0.0-0.1 Immature Granulocytes 0 % (Normal) Range: 0-2 Baso (Absolute) 0.0 {x10E3/uL} (Normal) Range: 0.0-0.2 Eos (Absolute) 0.2 {x10E3/uL} (Normal) Range: 0.0-0.4 Monocytes(Absolute) 0.5 {x10E3/uL} (Normal) Range: 0.1-0.9 Lymphs (Absolute) 1.2 {x10E3/uL} (Normal) Range: 0.7-3.1 Neutrophils (Absolute) 5.8 {x10E3/uL} (Normal) Range: 1.4-7.0 Basos 0 % (Normal) Range: 0-3 Eos 2 % (Normal) Range: 0-5 Monocytes 6 % (Normal) Range: 4-12 Lymphs 16 % (Normal) Range: 14-46 Neutrophils 76 % (Abnormal) Range: 40-74 Platelets 142 {x10E3/uL} (Abnormal) Range: 155-379 RDW 14.6 % (Normal) Range: 12.3-15.4 MCHC 33.5 g/dL (Normal) Range: 31.5-35.7 MCH 32.9 pg (Normal) Range: 26.6-33.0 MCV 98 fL (Abnormal) Range: 79-97 Hematocrit 41.8 % (Normal) Range: 37.5-51.0 Hemoglobin 14.0 g/dL (Normal) Range: 12.6-17.7 RBC 4.25 {x10E6/uL} (Normal) Range: 4.14-5.80 WBC 7.7 {x10E3/uL} (Normal) Range: 3.4-10.8 24-Jwv-079280:22 MICROALBUMIN: CREATININE RATIO Comments: PATIENT WAS FASTINGPERFORMED BY: [facility]bitAstra Health CenterLqpnqg9225 [facility] [id number] (16065) AND (34547) Microalb/Creat Ratio 135.4 {mg/g_creat} (Abnormal) Range: 0.0-30.0 Creatinine, Urine 126.0 mg/dL (Normal) Range: 22.0-328.0 Microalbumin, Urine 170.6 ug/mL (Abnormal) Range: 0.0-17.0 09-Zli-537928:22 METABOLIC PANEL, COMPREHENSIVE Comments: PATIENT WAS FASTINGPERFORMED BY: [facility]bitAstra [facility] CenterPceatx0660 [facility] [id number] (76485) ALT (SGPT) 14 [iU]/L (Normal) Range: 0-44 Alkaline Phosphatase, S 74 [iU]/L (Normal) Range: 39-117 AST (SGOT) 19 [iU]/L (Normal) Range: 0-40 Bilirubin, Total 0.6 mg/dL (Normal) Range: 0.0-1.2 A/G Ratio 1.7 (Normal) Range: 1.1-2.5 Globulin, Total 2.5 g/dL (Normal) Range: 1.5-4.5 Albumin, Serum 4.3 g/dL (Normal) Range: 3.5-4.8 Protein, Total, Serum 6.8 g/dL (Normal) Range: 6.0-8.5 Calcium, Serum 9.3 mg/dL (Normal) Range: 8.6-10.2 Carbon Dioxide, Total 20 mmol/L (Normal) Range: 19-28 Chloride, Serum 101 mmol/L (Normal) Range: 97-108 Potassium, Serum 4.2 mmol/L (Normal) Range: 3.5-5.2 Sodium, Serum 139 mmol/L (Normal) Range: 134-144 BUN/Creatinine Ratio 11 (Normal) Range: 10-22 eGFR If Africn Am 58 mL/min/1.73 (Abnormal) eGFR If NonAfricn Am 50 mL/min/1.73 (Abnormal) Creatinine, Serum 1.38 mg/dL (Abnormal) Range: 0.76-1.27 BUN 15 mg/dL (Normal) Range: 8-27 Glucose, Serum 140 mg/dL (Abnormal) Range: 65-99 :22 LIPID PANEL (58228) Comments: PATIENT WAS FASTINGPERFORMED BY: [employer] [facility] [id number] LDL/HDL Ratio 0.8 {ratio_units} (Normal) Range: 0.0-3.6 LDL Cholesterol Calc 40 mg/dL (Normal) Range: 0-99 VLDL Cholesterol Mike 27 mg/dL (Normal) Range: 5-40 HDL Cholesterol 53 mg/dL (Normal) Comments: According to ATP-III Guidelines, HDL-C >59 mg/dL is considered anegative risk factor for CHD. Triglycerides 134 mg/dL (Normal) Range: 0-149 Cholesterol, Total 120 mg/dL (Normal) Range: 100-199 :22 TSH (51130) Comments: PATIENT WAS FASTINGPERFORMED BY: [employer] [facility] [id number] TSH 3.630 {uIU/mL} (Normal) Range: 0.450-4.500 :34 Blood Glucose , Office (72626) Blood Glucose , Office 164 (Normal) :34 HgA1C , Office (69494) HgA1C , Office 6.4 % (Normal) Range: 4.6 - 7.1 :31 LIPID PANEL (15962) Comments: [facility]; PATIENT WAS FASTINGPERFORMED BY: [employer] [facility] [id number] LDL/HDL Ratio 0.9 {ratio_units} (Normal) Range: 0.0-3.6 LDL Cholesterol Calc 62 mg/dL (Normal) Range: 0-99 VLDL Cholesterol Mike 19 mg/dL (Normal) Range: 5-40 HDL Cholesterol 66 mg/dL (Normal) Comments: According to ATP-III Guidelines, HDL-C >59 mg/dL is considered anegative risk factor for CHD. Triglycerides 97 mg/dL (Normal) Range: 0-149 Cholesterol, Total 147 mg/dL (Normal) Range: 100-199 :31 PSA (PROSTATE SPECIFIC Comments: PATIENT WAS FASTINGPERFORMED BY: [employer]70 [facility] [id number] ANTIGEN) (V76.44) Prostate Specific Ag, 1.3 ng/mL (Normal) Range: 0.0-4.0 Serum Comments: [employer] ECLIA methodology. .According to the [place] [employer], Serum PSA shoulddecrease and remain at undetectable levels after radicalprostatectomy. The AUA defines biochemical recurrence as an initialPSA value 0.2 ng/mL or greater followed by a subsequent confirmatoryPSA value 0.2 ng/mL or greater.Values obtained with d ifferent assay methods or kits cannot be usedinterchangeably. Results cannot be interpreted as absolute evidenceof the presence or absence of malignant disease. :31 TSH (78015) Comments: PATIENT WAS FASTINGPERFORMED BY: [employer]6370 [facility] [id number] TSH 3.240 {uIU/mL} (Normal) Range: 0.450-4.500 :31 MICROALBUMIN: CREATININE RATIO Comments: PATIENT WAS FASTINGPERFORMED BY: [employer] Otelth8348 [facility] [id number] (87922) AND (69371) Microalb/Creat Ratio 51.5 {mg/g_creat} (Abnormal) Range: 0.0-30.0 Microalbumin, Urine 104.3 ug/mL (Abnormal) Range: 0.0-17.0 Creatinine, Urine 202.4 mg/dL (Normal) Range: 22.0-328.0 :31 METABOLIC PANEL, COMPREHENSIVE Comments: PATIENT WAS FASTINGPERFORMED BY: Charter CommunicationsAstra Health CenterSvrnol8497 [facility] [id number] (18317) ALT (SGPT) 13 [iU]/L (Normal) Range: 0-44 AST (SGOT) 21 [iU]/L (Normal) Range: 0-40 Alkaline Phosphatase, S 39 [iU]/L (Abnormal) Range: 44-105 Bilirubin, Total 0.8 mg/dL (Normal) Range: 0.0-1.2 A/G Ratio 1.8 (Normal) Range: 1.1-2.5 Globulin, Total 2.5 g/dL (Normal) Range: 1.5-4.5 Albumin, Serum 4.4 g/dL (Normal) Range: 3.5-4.8 Protein, Total, Serum 6.9 g/dL (Normal) Range: 6.0-8.5 Calcium, Serum 9.0 mg/dL (Normal) Range: 8.6-10.2 Carbon Dioxide, Total 21 mmol/L (Normal) Range: 19-28 Chloride, Serum 99 mmol/L (Normal) Range: 97-108 Potassium, Serum 4.2 mmol/L (Normal) Range: 3.5-5.2 Sodium, Serum 135 mmol/L (Normal) Range: 134-144 BUN/Creatinine Ratio 11 (Normal) Range: 10-22 eGFR If Africn Am 49 mL/min/1.73 (Abnormal) eGFR If NonAfricn Am 43 mL/min/1.73 (Abnormal) Creatinine, Serum 1.58 mg/dL (Abnormal) Range: 0.76-1.27 BUN 18 mg/dL (Normal) Range: 8-27 Glucose, Serum 122 mg/dL (Abnormal) Range: 65-99 :31 CBC WITH MANUAL DIFF Comments: PATIENT WAS FASTINGPERFORMED BY: Charter CommunicationsAstra Health CenterNxyure6570 [facility] [id number] Information: ADD [id number] AND DRAW FEE [id number] (84622) Immature Grans (Abs) 0.0 {x10E3/uL} (Normal) Range: 0.0-0.1 Immature Granulocytes 0 % (Normal) Range: 0-2 Baso (Absolute) 0.0 {x10E3/uL} (Normal) Range: 0.0-0.2 Eos (Absolute) 0.3 {x10E3/uL} (Normal) Range: 0.0-0.4 Comments: Please note reference interval change Monocytes(Absolute) 0.5 {x10E3/uL} (Normal) Range: 0.1-0.9 Comments: Please note reference interval change Lymphs (Absolute) 1.7 {x10E3/uL} (Normal) Range: 0.7-3.1 Comments: Please note reference interval change Neutrophils (Absolute) 4.8 {x10E3/uL} (Normal) Range: 1.4-7.0 Comments: Please note reference interval change Basos 1 % (Normal) Range: 0-3 Eos 5 % (Normal) Range: 0-5 Comments: Please note reference interval change Monocytes 7 % (Normal) Range: 4-12 Comments: Please note reference interval change Lymphs 23 % (Normal) Range: 14-46 Comments: Please note reference interval change Neutrophils 64 % (Normal) Range: 40-74 Comments: Please note reference interval change Platelets 192 {x10E3/uL} (Normal) Range: 155-379 Comments: Please note reference interval change RDW 14.2 % (Normal) Range: 12.3-15.4 MCHC 34.0 g/dL (Normal) Range: 31.5-35.7 MCH 31.8 pg (Normal) Range: 26.6-33.0 MCV 94 fL (Normal) Range: 79-97 Hematocrit 42.9 % (Normal) Range: 37.5-51.0 Hemoglobin 14.6 g/dL (Normal) Range: 12.6-17.7 RBC 4.59 {x10E6/uL} (Normal) Range: 4.14-5.80 WBC 7.5 {x10E3/uL} (Normal) Range: 3.4-10.8 Comments: Please note reference interval change :42 Blood Glucose , Office (61688) Blood Glucose , Office 171 (Normal) :41 HgA1C , Office (59366) HgA1C , Office 6.1 % (Normal) Range: 4.6 - 7.1 95-Vbi-793834:36 CHEST, PA AND LATERAL Radiology Report See Note (Normal) Comments: PROCEDURE: X-RAY CHEST REASON FOR EXAM: Male, 72 years old. Chest congestion and shortness ofbreath. TECHNIQUE: PA and lateral views of the chest. COMPARISON: Comparison is made with prior stud y dated March 30, 2011. FINDINGS: The lungs are expanded. There is no demonstrated parenchymalabnormality.There is no demonstrated pleural abnormality. There is mild cardiac enlargement. 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 Normal mediastinum and jessy. Normal visualized pulmonary arteri es.Thereis atherosclerotic tortuosity of the aortic arch and descending thoracicaorta. There are diffuse degenerative changes of the visualized thoracic spine.Normal visualized ribs, clavicles, and shou lders. There is no demonstrated abnormality of the visualized soft tissuestructures of the upper abdomen. IMPRESSION:Cardiomegaly. Signed:Louis Sue M.D.December 11, 2012 at 4:00:01 PM [id number] Signed GP/GP If you are the referring physician and would like to consult with theradiologist who provided this interpretation, please contact James Trejo at . If this radiologist is unavailable, youwill be directed to another radiologist to assist. If you are a patient with a question regarding this report, pleasecontactyour referring physician directly. Professional Interpretation Provided By: [employer], Phone , These documents contain legally protected and confidential healthinformation intended only for the use of the individual or entity namedabove. If you are not the intended recipient, you are hereby notifiedthatany disclosure, copying, distribution, or other use of these documents isstrictly prohibited. If you edgar ve received this information in error,pleasenotify the sender immediately and arrange for the return or destructionofthese documents. Dictated on 12/11/12 1533 by Tosin ROGERS,Rafyranscribed on 12/11/12 1604 by ITS IMPORTSign by Tosin ROGERS,Louis on 12/11/12 1605 Sign by: Louis Sue MD [id number] CBC, Platelets & Auto Diff Comments: PATIENT NOT FASTINGPERFORMED BY: [facility] [id number] Information: [id number] ([id number]) Immature Grans (Abs) 0.0 {x10E3/uL} (Normal) Range: 0.0-0.1 Immature Granulocytes 0 % (Normal) Range: 0-2 Baso (Absolute) 0.0 {x10E3/uL} (Normal) Range: 0.0-0.2 Eos (Absolute) 0.4 {x10E3/uL} (Normal) Range: 0.0-0.4 Monocytes(Absolute) 0.5 {x10E3/uL} (Normal) Range: 0.1-1.0 Lymphs (Absolute) 1.6 {x10E3/uL} (Normal) Range: 0.7-4.5 Neutrophils (Absolute) 4.3 {x10E3/uL} (Normal) Range: 1.8-7.8 Basos 1 % (Normal) Range: 0-3 Eos 6 % (Normal) Range: 0-7 Monocytes 7 % (Normal) Range: 4-13 Lymphs 23 % (Normal) Range: 14-46 Neutrophils 63 % (Normal) Range: 40-74 Platelets 190 {x10E3/uL} (Normal) Range: 140-415 MCHC 33.8 g/dL (Normal) Range: 31.5-35.7 RDW 13.8 % (Normal) Range: 12.3-15.4 MCH 31.4 pg (Normal) Range: 26.6-33.0 MCV 93 fL (Normal) Range: 79-97 Hematocrit 42.0 % (Normal) Range: 37.5-51.0 Hemoglobin 14.2 g/dL (Normal) Range: 12.6-17.7 RBC 4.52 {x10E6/uL} (Normal) Range: 4.14-5.80 WBC 6.8 {x10E3/uL} (Normal) Range: 4.0-10.5 :56 Metabolic Panel, Basic (26426) Comments: PATIENT NOT FASTINGPERFORMED BY: [facility] [facility] [id number] Calcium, Serum 9.5 mg/dL (Normal) Range: 8.6-10.2 Carbon Dioxide, Total 19 mmol/L (Abnormal) Range: 20-32 Chloride, Serum 100 mmol/L (Normal) Range: 97-108 Potassium, Serum 4.1 mmol/L (Normal) Range: 3.5-5.2 BUN/Creatinine Ratio 10 (Normal) Range: 10-22 Sodium, Serum 136 mmol/L (Normal) Range: 134-144 eGFR If Africn Am 56 mL/min/1.73 (Abnormal) eGFR If NonAfricn Am 49 mL/min/1.73 (Abnormal) Creatinine, Serum 1.43 mg/dL (Abnormal) Range: 0.76-1.27 BUN 15 mg/dL (Normal) Range: 8-27 Glucose, Serum 179 mg/dL (Abnormal) Range: 65-99 :03 Blood Glucose , Office (64961) Blood Glucose , Office 185 (Normal) :03 HgA1C , Office (95014) HgA1C , Office 5.6 % (Normal) Range: 4.6 - 7.1 4-Wtt-158602:36 CBC WITH MANUAL DIFF Comments: send cardiology Dr. hu; PATIENT WAS FASTINGPERFORMED BY: [facility] [facility] [id number] Information: [id number] ([id number]) Immature Grans (Abs) 0.0 {x10E3/uL} (Normal) Range: 0.0-0.1 Immature Granulocytes 0 % (Normal) Range: 0-2 Baso (Absolute) 0.0 {x10E3/uL} (Normal) Range: 0.0-0.2 Eos (Absolute) 0.3 {x10E3/uL} (Normal) Range: 0.0-0.4 Monocytes(Absolute) 0.8 {x10E3/uL} (Normal) Range: 0.1-1.0 Lymphs (Absolute) 1.5 {x10E3/uL} (Normal) Range: 0.7-4.5 Neutrophils (Absolute) 8.1 {x10E3/uL} (Abnormal) Range: 1.8-7.8 Basos 0 % (Normal) Range: 0-3 Eos 3 % (Normal) Range: 0-7 Monocytes 8 % (Normal) Range: 4-13 Lymphs 14 % (Normal) Range: 14-46 Neutrophils 75 % (Abnormal) Range: 40-74 Platelets 179 {x10E3/uL} (Normal) Range: 140-415 RDW 14.1 % (Normal) Range: 12.3-15.4 MCHC 33.4 g/dL (Normal) Range: 31.5-35.7 MCH 31.2 pg (Normal) Range: 26.6-33.0 MCV 93 fL (Normal) Range: 79-97 Hematocrit 41.6 % (Normal) Range: 37.5-51.0 Hemoglobin 13.9 g/dL (Normal) Range: 12.6-17.7 RBC 4.46 {x10E6/uL} (Normal) Range: 4.14-5.80 WBC 10.9 {x10E3/uL} (Abnormal) Range: 4.0-10.5 3-Scs-984150:36 MICROALBUMIN: CREATININE RATIO Comments: PATIENT WAS FASTINGPERFORMED BY: Charter CommunicationsAstra Health CenterZeqcyt9088 [facility] [id number] ([id number]) AND (77853) Microalb/Creat Ratio 37.8 {mg/g_creat} (Abnormal) Range: 0.0-30.0 Creatinine, Urine 138.0 mg/dL (Normal) Range: 22.0-328.0 Microalbumin, Urine 52.1 ug/mL (Abnormal) Range: 0.0-17.0 :36 METABOLIC PANEL, COMPREHENSIVE Comments: PATIENT WAS FASTINGPERFORMED BY: [facility] [id number] ([id number]) ALT (SGPT) 17 [iU]/L (Normal) Range: 0-44 AST (SGOT) 25 [iU]/L (Normal) Range: 0-40 Alkaline Phosphatase, S 50 [iU]/L (Normal) Range: 25-160 Bilirubin, Total 0.8 mg/dL (Normal) Range: 0.0-1.2 A/G Ratio 2.1 (Normal) Range: 1.1-2.5 Globulin, Total 2.1 g/dL (Normal) Range: 1.5-4.5 Albumin, Serum 4.5 g/dL (Normal) Range: 3.5-4.8 Protein, Total, Serum 6.6 g/dL (Normal) Range: 6.0-8.5 Calcium, Serum 8.9 mg/dL (Normal) Range: 8.6-10.2 Carbon Dioxide, Total 18 mmol/L (Abnormal) Range: 20-32 Chloride, Serum 102 mmol/L (Normal) Range: 97-108 Potassium, Serum 4.2 mmol/L (Normal) Range: 3.5-5.2 Sodium, Serum 136 mmol/L (Normal) Range: 134-144 BUN/Creatinine Ratio 10 (Normal) Range: 10-22 eGFR If Africn Am 55 mL/min/1.73 (Abnormal) eGFR If NonAfricn Am 48 mL/min/1.73 (Abnormal) Creatinine, Serum 1.45 mg/dL (Abnormal) Range: 0.76-1.27 BUN 15 mg/dL (Normal) Range: 8-27 Glucose, Serum 109 mg/dL (Abnormal) Range: 65-99 6-Teq-120764:36 LIPID PANEL (76953) Comments: PATIENT WAS FASTINGPERFORMED BY: LabCoAstra Health CenterHddatn3707 [facility] [id number] LDL Cholesterol Calc 52 mg/dL (Normal) Range: 0-99 LDL/HDL Ratio 0.9 {ratio_units} (Normal) Range: 0.0-3.6 HDL Cholesterol 58 mg/dL (Normal) Comments: According to ATP-III Guidelines, HDL-C >59 mg/dL is considered anegative risk factor for CHD. VLDL Cholesterol Mike 21 mg/dL (Normal) Range: 5-40 Cholesterol, Total 131 mg/dL (Normal) Range: 100-199 Triglycerides 103 mg/dL (Normal) Range: 0-149 9-Jgu-680420:14 Blood Glucose , Office (00799) Blood Glucose , Office 171 (Normal) Comments: had toast for breakfast :07 HgA1C , Office (61933) HgA1C , Office 6.0 % (Normal) Range: 4.6 - 7.1 :07 Blood Glucose , Office (17011) Blood Glucose , Office 192 (Normal) :45 MICROALBUMIN: CREATININE RATIO Comments: PATIENT WAS FASTINGPERFORMED BY: Charter CommunicationsCarrie Tingley HospitalHuvbcm0816 [facility] [id number] ([id number]) AND (43573) Microalb/Creat Ratio 218.7 {mg/g_creat} (Abnormal) Range: 0.0-30.0 Microalbumin, Urine 359.3 ug/mL (Abnormal) Range: 0.0-17.0 Creatinine, Urine 164.3 mg/dL (Normal) Range: 22.0-328.0 :45 METABOLIC PANEL, COMPREHENSIVE Comments: PATIENT WAS FASTINGPERFORMED BY: [employer] [facility] [id number] ([id number]) ALT (SGPT) 11 [iU]/L (Normal) Range: 0-55 AST (SGOT) 22 [iU]/L (Normal) Range: 0-40 Alkaline Phosphatase, S 60 [iU]/L (Normal) Range: 25-160 Bilirubin, Total 0.4 mg/dL (Normal) Range: 0.0-1.2 A/G Ratio 1.6 (Normal) Range: 1.1-2.5 Globulin, Total 2.5 g/dL (Normal) Range: 1.5-4.5 Albumin, Serum 4.1 g/dL (Normal) Range: 3.5-4.8 Protein, Total, Serum 6.6 g/dL (Normal) Range: 6.0-8.5 Calcium, Serum 8.9 mg/dL (Normal) Range: 8.6-10.2 Carbon Dioxide, Total 21 mmol/L (Normal) Range: 20-32 Chloride, Serum 103 mmol/L (Normal) Range: 97-108 Potassium, Serum 4.3 mmol/L (Normal) Range: 3.5-5.2 Sodium, Serum 138 mmol/L (Normal) Range: 134-144 BUN/Creatinine Ratio 13 (Normal) Range: 10-22 eGFR If Africn Am 65 mL/min/1.73 (Normal) eGFR If NonAfricn Am 57 mL/min/1.73 (Abnormal) Creatinine, Serum 1.26 mg/dL (Normal) Range: 0.76-1.27 BUN 17 mg/dL (Normal) Range: 8-27 Glucose, Serum 125 mg/dL (Abnormal) Range: 65-99 6-Pmy-210936:45 LIPID PANEL (62574) Comments: PATIENT WAS FASTINGPERFORMED BY: [facility] [facility] [id number] LDL/HDL Ratio 0.6 {ratio_units} (Normal) Range: 0.0-3.6 LDL Cholesterol Calc 40 mg/dL (Normal) Range: 0-99 VLDL Cholesterol Mike 12 mg/dL (Normal) Range: 5-40 HDL Cholesterol 62 mg/dL (Normal) Comments: According to ATP-III Guidelines, HDL-C >59 mg/dL is considered anegative risk factor for CHD. Triglycerides 58 mg/dL (Normal) Range: 0-149 Cholesterol, Total 114 mg/dL (Normal) Range: 100-199 8-Ccj-654529:45 CBC WITH MANUAL DIFF Comments: PATIENT WAS FASTINGPERFORMED BY: [employer] [facility] [id number] Information: [id number] (85978) Immature Grans (Abs) 0.0 {x10E3/uL} (Normal) Range: 0.0-0.1 Immature Granulocytes 0 % (Normal) Range: 0-2 Baso (Absolute) 0.0 {x10E3/uL} (Normal) Range: 0.0-0.2 Eos (Absolute) 0.2 {x10E3/uL} (Normal) Range: 0.0-0.4 Monocytes(Absolute) 0.4 {x10E3/uL} (Normal) Range: 0.1-1.0 Lymphs (Absolute) 1.4 {x10E3/uL} (Normal) Range: 0.7-4.5 Neutrophils (Absolute) 4.1 {x10E3/uL} (Normal) Range: 1.8-7.8 Basos 1 % (Normal) Range: 0-3 Eos 3 % (Normal) Range: 0-7 Monocytes 6 % (Normal) Range: 4-13 Lymphs 23 % (Normal) Range: 14-46 Neutrophils 67 % (Normal) Range: 40-74 Platelets 186 {x10E3/uL} (Normal) Range: 140-415 RDW 14.1 % (Normal) Range: 12.3-15.4 MCHC 33.5 g/dL (Normal) Range: 31.5-35.7 MCH 31.5 pg (Normal) Range: 26.6-33.0 MCV 94 fL (Normal) Range: 79-97 Hematocrit 40.3 % (Normal) Range: 37.5-51.0 Hemoglobin 13.5 g/dL (Normal) Range: 12.6-17.7 RBC 4.29 {x10E6/uL} (Normal) Range: 4.14-5.80 WBC 6.1 {x10E3/uL} (Normal) Range: 4.0-10.5 :41 HgA1C , Office (41406) HgA1C , Office 5.5 % (Normal) Range: 4.6 - 7.1 :41 Blood Glucose , Office (35892) Blood Glucose , Office 148 (Normal) 17-Igu-32102:00 CBC (Auto) (81387) Comments: PATIENT NOT FASTINGPERFORMED BY: [facility] Wbqcrk3447 [facility] [id number] Information: [id number] Platelets 215 {x10E3/uL} (Normal) Range: 140-415 RDW 15.4 % (Abnormal) Range: 11.7-15.0 MCHC 32.3 g/dL (Normal) Range: 32.0-36.0 MCH 30.5 pg (Normal) Range: 27.0-34.0 MCV 94 fL (Normal) Range: 80-98 Hematocrit 39.0 % (Normal) Range: 36.0-50.0 Hemoglobin 12.6 g/dL (Normal) Range: 12.5-17.0 RBC 4.13 {x10E6/uL} (Normal) Range: 4.10-5.60 WBC 7.2 {x10E3/uL} (Normal) Range: 4.0-10.5 :13 HgA1C , Office (76821) HgA1C , Office 5.3 % (Normal) Range: 4.6 - 7.1 :13 Blood Glucose , Office (92076) Blood Glucose , Office 146 (Normal) :12 Microscopic Examination Comments: PATIENT WAS FASTINGPERFORMED BY: [employer]70 [facility].tvFormerly [facility] [id number] Bacteria None seen (Normal) Mucus Threads Present (Normal) Epithelial Cells (non renal) 0-10 {/hpf} (Normal) Range: 0 - 10 RBC 0-3 {/hpf} (Normal) Range: 0 - 3 WBC 0-5 {/hpf} (Normal) Range: 0 - 5 :12 PSA (PROSTATE SPECIFIC Comments: PATIENT WAS FASTINGPERFORMED BY: [employer]70 [facility]tvFormerly [facility] [id number] ANTIGEN) (V76.44) Prostate Specific Ag, 1.0 ng/mL (Normal) Range: 0.0-4.0 Serum Comments: [employer] ECLIA methodology. .According to the [place] [employer], Serum PSA shoulddecrease and remain at undetectable levels after radicalprostatectomy. The AUA defines biochemical recurrence as an initialPSA value 0.2 ng/mL or greater followed by a subsequent confirmatoryPSA value 0.2 ng/mL or greater.Values obtained with d ifferent assay methods or kits cannot be usedinterchangeably. Results cannot be interpreted as absolute evidenceof the presence or absence of malignant disease. :12 URINALYSIS, W/ MICRO (39849) Comments: PATIENT WAS FASTINGPERFORMED BY: [facility]6370 [facility]tvFormerly [facility] [id number] Microscopic Examination See below: (Normal) Microscopic Examination MICRON (Normal) Comments: Microscopic follows if indicated. Nitrite, Urine Negative (Normal) Urobilinogen,Semi-Qn 0.2 mg/dL (Normal) Range: 0.0-1.9 Bilirubin Negative (Normal) Ketones Negative (Normal) Occult Blood Negative (Normal) Glucose Negative (Normal) Protein Negative (Normal) WBC Esterase Negative (Normal) Appearance Clear (Normal) pH 7.5 (Normal) Range: 5.0-7.5 Urine-Color Yellow (Normal) Specific Orange 1.013 (Normal) Range: 1.005-1.030 31-Oct-20119:12 METABOLIC PANEL, COMPREHENSIVE Comments: PATIENT WAS FASTINGPERFORMED BY: LabCoAstra [facility] CenterLemqlj5776 [facility] [id number] ([id number]) ALT (SGPT) 13 [iU]/L (Normal) Range: 0-55 AST (SGOT) 23 [iU]/L (Normal) Range: 0-40 Alkaline Phosphatase, S 43 [iU]/L (Normal) Range: 25-160 Bilirubin, Total 0.5 mg/dL (Normal) Range: 0.0-1.2 A/G Ratio 1.8 (Normal) Range: 1.1-2.5 Globulin, Total 2.2 g/dL (Normal) Range: 1.5-4.5 Albumin, Serum 3.9 g/dL (Normal) Range: 3.5-4.8 Protein, Total, Serum 6.1 g/dL (Normal) Range: 6.0-8.5 Calcium, Serum 8.5 mg/dL (Abnormal) Range: 8.6-10.2 Carbon Dioxide, Total 24 mmol/L (Normal) Range: 20-32 Chloride, Serum 103 mmol/L (Normal) Range: 97-108 Potassium, Serum 4.0 mmol/L (Normal) Range: 3.5-5.2 Sodium, Serum 137 mmol/L (Normal) Range: 134-144 Comments: Please note reference interval change BUN/Creatinine Ratio 7 (Abnormal) Range: 10-22 eGFR If Africn Am 78 mL/min/1.73 (Normal) Comments: Note: A persistent eGFR <60 mL/min/1.73 m2 (3 months or more) mayindicate chronic kidney disease. An eGFR >59 mL/min/1.73 m2 with anelevated urine protein also may indicate chronic kidney disease.Calculated using CKD-EPI formula. eGFR If NonAfricn Am 67 mL/min/1.73 (Normal) Creatinine, Serum 1.10 mg/dL (Normal) Range: 0.76-1.27 BUN 8 mg/dL (Normal) Range: 8-27 Glucose, Serum 102 mg/dL (Abnormal) Range: 65-99 :12 CBC WITH MANUAL DIFF Comments: PATIENT WAS FASTINGPERFORMED BY: Charter CommunicationsAstra Health CenterNfsypb0751 [facility] [id number] Information: [id number] (75040) Immature Grans (Abs) 0.0 {x10E3/uL} (Normal) Range: 0.0-0.1 Immature Granulocytes 0 % (Normal) Range: 0-2 Baso (Absolute) 0.0 {x10E3/uL} (Normal) Range: 0.0-0.2 Eos (Absolute) 0.1 {x10E3/uL} (Normal) Range: 0.0-0.4 Monocytes(Absolute) 0.5 {x10E3/uL} (Normal) Range: 0.1-1.0 Lymphs (Absolute) 1.4 {x10E3/uL} (Normal) Range: 0.7-4.5 Neutrophils (Absolute) 5.1 {x10E3/uL} (Normal) Range: 1.8-7.8 Basos 0 % (Normal) Range: 0-3 Eos 1 % (Normal) Range: 0-7 Monocytes 7 % (Normal) Range: 4-13 Lymphs 19 % (Normal) Range: 14-46 Neutrophils 73 % (Normal) Range: 40-74 Platelets 233 {x10E3/uL} (Normal) Range: 140-415 RDW 13.8 % (Normal) Range: 11.7-15.0 MCHC 33.2 g/dL (Normal) Range: 32.0-36.0 MCH 31.6 pg (Normal) Range: 27.0-34.0 MCV 95 fL (Normal) Range: 80-98 Hematocrit 39.2 % (Normal) Range: 36.0-50.0 Hemoglobin 13.0 g/dL (Normal) Range: 12.5-17.0 RBC 4.11 {x10E6/uL} (Normal) Range: 4.10-5.60 WBC 7.1 {x10E3/uL} (Normal) Range: 4.0-10.5 :12 LIPID PANEL (21585) Comments: PATIENT WAS FASTINGPERFORMED BY: Charter CommunicationsAstra Health CenterHtmcbg8763 [facility] [id number] LDL/HDL Ratio 0.9 {ratio_units} (Normal) Range: 0.0-3.6 LDL Cholesterol Calc 52 mg/dL (Normal) Range: 0-99 VLDL Cholesterol Mike 18 mg/dL (Normal) Range: 5-40 HDL Cholesterol 60 mg/dL (Normal) Comments: According to ATP-III Guidelines, HDL-C >59 mg/dL is considered anegative risk factor for CHD. Cholesterol, Total 130 mg/dL (Normal) Range: 100-199 Triglycerides 92 mg/dL (Normal) Range: 0-149 :32 HgA1C , Office (65006) HgA1C , Office 6.0 % (Normal) Range: 4.6 - 7.1 :32 Blood Glucose , Office (10976) Blood Glucose , Office 128 (Normal) :24 LIPID PANEL (16877) Comments: PATIENT NOT FASTINGPERFORMED BY: [employer] Lskevt6653 [facility] [id number] Information: [id number] LDL Cholesterol Calc 33 mg/dL (Normal) Range: 0-99 LDL/HDL Ratio 0.7 {ratio_units} (Normal) Range: 0.0-3.6 VLDL Cholesterol Mike 38 mg/dL (Normal) Range: 5-40 HDL Cholesterol 45 mg/dL (Normal) Comments: According to ATP-III Guidelines, HDL-C >59 mg/dL is considered anegative risk factor for CHD. Triglycerides 190 mg/dL (Abnormal) Range: 0-149 Cholesterol, Total 116 mg/dL (Normal) Range: 100-199 :56 Metabolic Panel, Basic Comments: PATIENT NOT FASTINGPERFORMED BY: LabCoAstra [facility] CenterSlvjwp5247 [facility] [id number] Information: [id number] (62183) Calcium, Serum 9.0 mg/dL (Normal) Range: 8.6-10.2 Carbon Dioxide, Total 21 mmol/L (Normal) Range: 20-32 Chloride, Serum 100 mmol/L (Normal) Range: 97-108 Potassium, Serum 3.8 mmol/L (Normal) Range: 3.5-5.2 Sodium, Serum 134 mmol/L (Abnormal) Range: 135-145 BUN/Creatinine Ratio 10 (Normal) Range: 10-22 eGFR If Africn Am 47 mL/min/1.73 (Abnormal) Comments: Note: A persistent eGFR <60 mL/min/1.73 m2 (3 months or more) mayindicate chronic kidney disease. An eGFR >59 mL/min/1.73 m2 with anelevated urine protein also may indicate chronic kidney disease.Calculated using CKD-EPI formula. eGFR If NonAfricn Am 40 mL/min/1.73 (Abnormal) Creatinine, Serum 1.68 mg/dL (Abnormal) Range: 0.76-1.27 BUN 17 mg/dL (Normal) Range: 8-27 Glucose, Serum 149 mg/dL (Abnormal) Range: 65-99 :56 Ferritin (23119) Comments: PATIENT NOT FASTINGPERFORMED BY: [facility] Jbwklk2087 [facility] [id number] Ferritin, Serum 221 ng/mL (Normal) Range: 30-400 10-Cjs-59282:19 Blood Glucose , Office (74314) Blood Glucose , Office 134 (Normal) 7-Trp-715267:00 LIPID HDL 61 mg/dL (Normal) Comments: Reference Range HDL <40 mg/dL Low HDL Cholesterol HDL >or= 60 mg/dL High HDL Cholesterol LDL 66 mg/dL (Normal) Range: 0-130 TRIG 82 mg/dL (Normal) Comments: Serum Triglycerides Reference Interval Normal <150 mg/dL Borderline high 150 - 199 mg/dL High 200 - 499 mg/dL Very High > or = 500 mg/dL VLDL 16 mg/dL (Normal) Range: 5-40 CHOL 143 mg/dL (Normal) Comments: <200 mg/dL Desirable 200-240 mg/dL Borderline >240 mg/dL High Risk 8-Cpk-356916:00 LIVER D BILI 0.13 mg/dL (Normal) Range: 0.00-0.30 T BILI 0.40 mg/dL (Normal) Range: 0.00-1.00 ALT 29 U/L (Normal) Range: 12-78 ALK P 43 U/L (Abnormal) Range: 50-136 ALB 4.1 g/dL (Normal) Range: 3.4-5.0 AST 12 U/L (Abnormal) Range: 15-37 T PROT 7.4 g/dL (Normal) Range: 6.4-8.2 3-Ryc-722801:00 BMP CL 102 mmol/L (Normal) Range: 98-107 CO2 25.0 mmol/L (Normal) Range: 21.0-32.0 GAP 10 (Normal) Range: 5-15 K 4.8 mmol/L (Normal) Range: 3.5-5.1 NA 137 mmol/L (Normal) Range: 136-145 BUN/CRE 14.4 {RATIO} (Normal) Range: 10-20 CA 9.5 mg/dL (Normal) Range: 8.5-10.1 BUN 23 mg/dL (Abnormal) Range: 7-18 CREAT,SERUM 1.6 mg/dL (Abnormal) Range: 0.8-1.3 GLU 67 mg/dL (Abnormal) Range: 70-110 22-Zgg-589392:29 HIP, MIN 2 VIEWS Radiology Report See Note (Normal) Comments: CLINICAL:70 year old male with left hip pain. X-RAY EXAMINATION: LEFT HIP TECHNIQUE:Two views of the hip. COMPARISON:None. FINDINGS:There is moderate articular joint space narrowing, subchondral scleros isand osteophytes compatible with degenerative arthrosis. Normal visualized superior and inferior pubic rami and ischialtuberosities. Normal visualized soft tissue structures of the hip. IMPRESSION:Dege nerative changes, as noted above. Dictated on 10/13/10 1038 by Serge Calderónranscribed on 10/13/10 1038 by INTERFACE,MCKESSONSign by King Calderón on 10/14/10 1005 Sign by: King Calderón 72-Yva-028208:28 HIP, MIN 2 VIEWS Radiology Report See Note (Normal) Comments: CLINICAL:70-year-old male with right hip pain X-RAY EXAMINATION: RIGHT HIP TECHNIQUE:Two views of the hip. COMPARISON:None. FINDINGS:There is moderate articular joint space narrowing, with osteophytes a ndsubchondral sclerosis compatible with moderate degenerative arthrosis. Normal visualized superior and inferior pubic rami and ischialtuberosities. Normal visualized soft tissue structures of the hip. There areatherosclerotic vascular calcifications. IMPRESSION:Degenerative changes, as noted above. Dictated on 10/13/10 1028 by Serge Nguyenranscribed on 10/13/10 1028 by Mark COOPER n by King Calderón on 10/14/10 1005 Sign by: King Calderón :01 HgA1C , Office (69641) HgA1C , Office 6.7 % (Normal) Range: 4.6 - 7.1 :01 Blood Glucose , Office (80798) Blood Glucose , Office 163 (Normal) :39 CBCD,SMEAR DIFF RED CELL MORPH SeeNote {NORMAL} (Normal) Comments: Result: NORM C+C EOS 5 % (Normal) Range: 0-5 PLT EST SeeNote (Normal) Comments: Result: ADEQUATE LYMPH 35 % (Normal) Range: 19-41 MONOCYTE 2 % (Normal) Range: 0-10 SEGS 58 % (Normal) Range: 47-70 ABSOLUTE NEUT 4.8 3/uL (Normal) Range: 2.0-7.7 CELLS COUNTED 100 (Normal) MCH 30.8 pg (Normal) Range: 27.0-32.0 MCHC 34.7 g/dL (Normal) Range: 32-36 PLT 251 K/mm3 (Normal) Range: 150-450 RDW 14.0 % (Normal) Range: 11.6-14.6 HCT 43.4 % (Normal) Range: 40-54 HGB 15.1 g/dL (Normal) Range: 14.0-18.0 MCV 88.8 fL (Normal) Range: 80-94 RBC 4.89 {M/mm3} (Normal) Range: 4.6-6.2 WBC 8.4 K/mm3 (Normal) Range: 4.4-11.0 :39 COMP METABOLIC CL 102 mmol/L (Normal) Range: 98-107 CO2 24.0 mmol/L (Normal) Range: 21.0-32.0 GAP 12 (Normal) Range: 5-15 K 4.2 mmol/L (Normal) Range: 3.5-5.1 NA 138 mmol/L (Normal) Range: 136-145 T BILI 0.40 mg/dL (Normal) Range: 0.00-1.00 ALK P 44 U/L (Abnormal) Range: 50-136 ALT 24 U/L (Normal) Range: 12-78 AST 18 U/L (Normal) Range: 15-37 A/G 0.9 {RATIO} (Normal) Range: 0.9-2.4 CA 8.6 mg/dL (Normal) Range: 8.5-10.1 GLOB 4.0 g/dL (Normal) Range: 2.7-4.2 ALB 3.6 g/dL (Normal) Range: 3.4-5.0 T PROT 7.6 g/dL (Normal) Range: 6.4-8.2 BUN/CRE 10.6 {RATIO} (Normal) Range: 10-20 EST GFR 46 mL/min (Abnormal) EST GFR - AA 56 mL/min (Abnormal) CREAT,SERUM 1.6 mg/dL (Abnormal) Range: 0.8-1.3 BUN 17 mg/dL (Normal) Range: 7-18 GLU 114 mg/dL (Abnormal) Range: 70-110 Comments: Fasting Glucose result from 110 to <126 mg/dL suggests IMPAIRED HOMEOSTASIS per A.D.A. criteria. :39 LIPID LDL 69 mg/dL (Normal) Range: 0-130 VLDL 40 mg/dL (Normal) Range: 5-40 HDL 41 mg/dL (Normal) Comments: Reference Range HDL <40 mg/dL Low HDL Cholesterol HDL >or= 60 mg/dL High HDL Cholesterol TRIG 199 mg/dL (Normal) Comments: Serum Triglycerides Reference Interval Normal <150 mg/dL Borderline high 150 - 199 mg/dL High 200 - 499 mg/dL Very High > or = 500 mg/dL CHOL 150 mg/dL (Normal) Comments: <200 mg/dL Desirable 200-240 mg/dL Borderline >240 mg/dL High Risk :57 HgA1C , Office (52542) HgA1C , Office 6.5 % (Normal) Range: 4.6 - 7.1 :57 Blood Glucose , Office (97277) Blood Glucose , Office 155 (Normal) :58 CREAT CLR 24H U Comments: STARTED URINE @8AM NDED URINE @8AM 07/07 CREAT CLEARANCE 62 ml/min (Abnormal) Range: 100-200 EST GFR 46 mL/min (Abnormal) SERUM CREAT 1.6 mg/dL (Abnormal) Range: 0.8-1.3 URINE CREAT 98.2 mg/dL (Normal) UR TOTAL VOLUME 1475 mL (Normal) UR COLLECT TIME 24.0 {HOURS} (Normal) :58 PROU 24HR Comments: STARTED URINE @8AM NDED URINE @8AM 07/07 24hr UR PROTEIN 177 {MG/24HR} (Abnormal) UR COLLECT TIME 24.0 {HOURS} (Normal) UR TOTAL VOLUME 1475 mL (Normal) URINE PROTEIN 12.0 mg/dL (Abnormal) :17 BMP CL 101 mmol/L (Normal) Range: 98-107 CO2 24.0 mmol/L (Normal) Range: 21.0-32.0 GAP 9 (Normal) Range: 5-15 K 3.9 mmol/L (Normal) Range: 3.5-5.1 BUN 20 mg/dL (Abnormal) Range: 7-18 BUN/CRE 12.5 {RATIO} (Normal) Range: 10-20 CA 9.2 mg/dL (Normal) Range: 8.5-10.1 CREAT,SERUM 1.6 mg/dL (Abnormal) Range: 0.8-1.3 EST GFR 46 mL/min (Abnormal) EST GFR - AA 56 mL/min (Abnormal) NA 134 mmol/L (Abnormal) Range: 136-145 GLU 107 mg/dL (Normal) Range: 70-110 :27 BMP CL 97 mmol/L (Abnormal) Range: 98-107 CO2 25.0 mmol/L (Normal) Range: 21.0-32.0 GAP 13 (Normal) Range: 5-15 K 3.7 mmol/L (Normal) Range: 3.5-5.1 BUN 22 mg/dL (Abnormal) Range: 7-18 BUN/CRE 12.2 {RATIO} (Normal) Range: 10-20 CA 8.6 mg/dL (Normal) Range: 8.5-10.1 CREAT,SERUM 1.8 mg/dL (Abnormal) Range: 0.8-1.3 EST GFR 40 mL/min (Abnormal) EST GFR - AA 48 mL/min (Abnormal) NA 135 mmol/L (Abnormal) Range: 136-145 GLU 88 mg/dL (Normal) Range: 70-110 [id number] TESTICULAR (HP) Radiology Report See Note (Normal) Comments: Exam Number: [id number] CLINICAL:This is a 70-year-old male patient with history of right-sidedhydrocele. EXAMINATION:ULTRASOUND OF THE SCROTUM TECHNIQUE:Multiple views of the scrotum were obtained. COMP ARISON:None. FINDINGS:This evidence of a large hydrocele in the right hemiscrotum. Aseptation is seen within it. The testicle is of homogeneousechotexture. No focal abnormality is seen. On Doppler e xamination,there is good blood flow. The left testicle is of homogeneous echotexture. No focal lesion isseen. No significant hydrocele is seen. On Doppler examination,there is normal flow. IMPRESSION :Large right hydrocele. The testicles are unremarkable. Reported By: LOUIS SUE [id number] Urinalysis, Office ([id number]) UA - LEUKOCYTE ESTERASE Negative (Normal) UA - NITRITE Negative (Normal) URINE UROBILINGN CASPER TIMED Normal mg/dL (Normal) UA - PROTEIN 30 mg/dL (Normal) UA - PH 6.0 (Normal) Comments: 5.5 UA - BLOOD Negative (Normal) UA - SPECIFIC GRAVITY 1.025 (Normal) UA - KETONES Negative mg/dL (Normal) UA - BILIRUBIN Negative (Normal) UA - GLUCOSE Negative (Normal) [id number]-Apq-[id number]:10 HgA1C , Office (75260) HgA1C , Office 5.5 % (Normal) Range: 4.6 - 7.1 [id number]:10 Blood Glucose , Office (01390) Blood Glucose , Office 176 (Normal) [id number]-[id number]:38 ABDOMEN/PELVIS WITH CONTRAST Radiology Report See Note (Normal) Comments: Exam Number: [id number] CLINICAL:70-year-old male with abdominal pain CT ABDOMEN AND PELVIS WITH CONTRAST TECHNIQUE:Transaxial images were obtained from the dome of the diaphragm tothe symphysis pubis w ith oral contrast. 100 ml of Isovue-300contrast was administered intravenously. COMPARISON:CT of the abdomen and pelvis dated 07/30/2007 FINDINGS:There is bibasal atelectasis. Normal enhanced liver. The re are surgical clips in the gallbladder fossa consistent with aprior cholecystectomy. Normal enhanced spleen. Normal pancreas. There is an unchanged, indeterminant nodule of the right adrenalgland (ser ies 2 image 39). There is unchanged prominence of thelateral limb of the left adrenal gland (series 2 image 44). Normal size of the right kidney. Normal excretion of contrastmaterial of the right kidn ey. There is no right renal mass. Thereare no right renal calculi. There is no right hydronephrosis.Normal visualized right ureter. Normal size of the left kidney. Normal excretion of contrastmateri al of the left kidney. There is no left renal mass. Thereare no left renal calculi. There is no left hydronephrosis. Normalvisualized left ureter. Normal visualized stomach. Normal small intestine. There aremultiple colonic diverticula consistent with diverticulosis. The region of the appendix is normal. Normal mesentery and peritoneum. There is no free fluid in the abdomen. There is no free ai r in theabdomen. Normal retroperitoneum. There is diffuse atherosclerotic calcification of the abdominalaorta. Normal visualized pelvic arteries. Normal inferior venacava. Normal opacified urinary bl adder. There is no pelvic mass lesion. There is no pelvic fluid. There isno pelvic lymphadenopathy. Normal abdominal wall. There are diffuse degenerative changes ofthe visualized lumbar spine. IMPRES WILIAN:Patient post cholecystectomy. Colonic diverticulosis. Unchanged, indeterminant nodule of the right internal gland. Unchanged prominence of the lateral limb of the left adrenal gland. Reported By: KING CALDERÓN M.D. 11-Adn-[id number]:00 CBCD ABSOLUTE NEUT 7.8 3/uL (Abnormal) Range: 2.0-7.7 BASO% 0.4 % (Normal) Range: 0-1 EO% 2.6 % (Normal) Range: 0-5 HCT 46.5 % (Normal) Range: 40-54 LY% 19.2 % (Normal) Range: 19-41 MCH 30.4 pg (Normal) Range: 27.0-32.0 MCHC 34.0 g/dL (Normal) Range: 32-36 MCV 89.2 fL (Normal) Range: 80-94 MONO% 5.9 % (Normal) Range: 0-10 MPV 7.9 fL (Normal) Range: 6.5-12.0 NEUT% 71.9 % (Abnormal) Range: 47-70 PLT 268 K/mm3 (Normal) Range: 150-450 RDW 14.0 % (Normal) Range: 11.6-14.6 HGB 15.8 g/dL (Normal) Range: 14.0-18.0 RBC 5.22 {M/mm3} (Normal) Range: 4.6-6.2 WBC 10.9 K/mm3 (Normal) Range: 4.4-11.0 66-Qzf-322327:00 COMP METABOLIC ALK P 57 U/L (Normal) Range: 50-136 ALT 27 U/L (Normal) Range: 12-78 CL 97 mmol/L (Abnormal) Range: 98-107 CO2 27.0 mmol/L (Normal) Range: 21.0-32.0 GAP 6 (Normal) Range: 5-15 K 4.3 mmol/L (Normal) Range: 3.5-5.1 NA 130 mmol/L (Abnormal) Range: 136-145 T BILI 0.50 mg/dL (Normal) Range: 0.00-1.00 A/G 1.1 {RATIO} (Normal) Range: 0.9-2.4 ALB 4.3 g/dL (Normal) Range: 3.4-5.0 AST 18 U/L (Normal) Range: 15-37 BUN 20 mg/dL (Abnormal) Range: 7-18 BUN/CRE 11.8 {RATIO} (Normal) Range: 10-20 CA 9.1 mg/dL (Normal) Range: 8.5-10.1 CREAT,SERUM 1.7 mg/dL (Abnormal) Range: 0.8-1.3 EST GFR 43 mL/min (Abnormal) EST GFR - AA 52 mL/min (Abnormal) GLOB 3.8 g/dL (Normal) Range: 2.7-4.2 GLU 174 mg/dL (Abnormal) Range: 70-110 Comments: Fasting Glucose result greater than or equal to 126 mg/dLsuggests DIABETES MELLITUS per A.D.A. criteria. T PROT 8.1 g/dL (Normal) Range: 6.4-8.2 10-Ewz-[id number]:0 VITAMIN B12 541 pg/mL (Normal) Range: 254-1320 0 Comments: There is a low frequency possibility that high titers ofintrinsic blocking antibodies may not be completelyinactivated during the reaction pretreatment stepof this testing method. If test results are in conflictwith the clinical diagnosis, patient should be testedfor the presence of intrinsic factor blocking antibodies. :33 LIPID HDL 37 mg/dL (Normal) Comments: Reference RangeHDL <40 mg/dL Low HDL CholesterolHDL >or= 60 mg/dL High HDL Cholesterol LDL 62 mg/dL (Normal) Range: 0-130 VLDL 42 mg/dL (Abnormal) Range: 5-40 TRIG 208 mg/dL (Abnormal) Comments: Serum Triglycerides Reference IntervalNormal <150 mg/dLBorderline high 150 - 199 mg/dLHigh 200 - 499 mg/ dLVery High > or = 500 mg/dL CHOL 141 mg/dL (Normal) Comments: <200 mg/dL Oohgvcmxl028-537 mg/dL Borderline>240 mg/dL High Risk :33 LIVER ALK P 53 U/L (Normal) Range: 50-136 ALT 25 U/L (Normal) Range: 12-78 D BILI 0.09 mg/dL (Normal) Range: 0.00-0.30 T BILI 0.30 mg/dL (Normal) Range: 0.00-1.00 ALB 3.9 g/dL (Normal) Range: 3.4-5.0 AST 23 U/L (Normal) Range: 15-37 T PROT 7.8 g/dL (Normal) Range: 6.4-8.2 :09 HgA1C , Office (84474) HgA1C , Office 6.6 % (Normal) Range: 4.6 - 7.1 :09 Blood Glucose , Office (94656) Blood Glucose , Office 243 (Normal) :38 BMP Comments: DR HU ORDERED LIPID LIVERDR BONEZZI ORDERED BMP MICROALB CREATININE, CBCMD, PSA BUN 17 mg/dL (Normal) Range: 7-18 BUN/CRE 12.1 {RATIO} (Normal) Range: 10-20 CA 8.0 mg/dL (Abnormal) Range: 8.5-10.1 CL 104 mmol/L (Normal) Range: 98-107 CO2 27.0 mmol/L (Normal) Range: 21.0-32.0 CREAT,SERUM 1.4 mg/dL (Abnormal) Range: 0.8-1.3 EST GFR 53 mL/min (Abnormal) EST GFR - AA 64 mL/min (Normal) GAP 4 (Abnormal) Range: 5-15 K 3.9 mmol/L (Normal) Range: 3.5-5.1 NA 135 mmol/L (Abnormal) Range: 136-145 GLU 135 mg/dL (Abnormal) Range: 70-110 Comments: Fasting Glucose result greater than or equal to 126 mg/dLsuggests DIABETES MELLITUS per A.D.A. criteria. :38 CBCD,SMEAR DIFF Comments: DR HU ORDERED LIPID LIVERDR BONEZZI ORDERED BMP MICROALB CREATININE, CBCMD, PSA PLT EST SeeNote (Normal) Comments: Result: ADEQUATE RED CELL MORPH SeeNote {NORMAL} (Normal) Comments: Result: NORM C+C BAND 1 % (Normal) Range: 0-5 CELLS COUNTED 100 (Normal) EOS 6 % (Abnormal) Range: 0-5 LYMPH 24 % (Normal) Range: 19-41 MONOCYTE 2 % (Normal) Range: 0-10 PLT 175 K/mm3 (Normal) Range: 150-450 RDW 14.2 % (Normal) Range: 11.6-14.6 SEGS 67 % (Normal) Range: 47-70 HCT 45.2 % (Normal) Range: 40-54 HGB 15.2 g/dL (Normal) Range: 14.0-18.0 MCH 30.0 pg (Normal) Range: 27.0-32.0 MCHC 33.5 g/dL (Normal) Range: 32-36 MCV 89.4 fL (Normal) Range: 80-94 RBC 5.06 {M/mm3} (Normal) Range: 4.6-6.2 WBC 9.4 K/mm3 (Normal) Range: 4.4-11.0 :38 LIPID Comments: DR HU ORDERED LIPID LIVERDR BONEZZI ORDERED BMP MICROALB CREATININE, CBCMD, PSA HDL 35 mg/dL (Normal) Comments: Reference RangeHDL <40 mg/dL Low HDL CholesterolHDL >or= 60 mg/dL High HDL Cholesterol LDL <TEST NOT PERFORMED> mg/dL (Normal) Range: 0-130 TRIG 409 mg/dL (Abnormal) Comments: TRIGLYCERIDE IS GREATER THAN 400 mg/dL.LDL RESULT IS INVALID AND WILL NOT BE REPORTED.Serum Triglycerides Reference IntervalNormal <150 mg/dLBorderline high 150 - 199 mg/dLHigh 200 - 499 mg/dLVery High > or = 500 mg/dL VLDL 82 mg/dL (Abnormal) Range: 5-40 CHOL 132 mg/dL (Normal) Comments: <200 mg/dL Iswriutge634-163 mg/dL Borderline>240 mg/dL High Risk :38 LIVER Comments: DR HU ORDERED LIPID LIVERDR BONEZZI ORDERED BMP MICROALB CREATININE, CBCMD, PSA ALK P 90 U/L (Normal) Range: 50-136 ALT 30 U/L (Normal) Range: 12-78 AST 20 U/L (Normal) Range: 15-37 D BILI 0.11 mg/dL (Normal) Range: 0.00-0.30 T BILI 0.50 mg/dL (Normal) Range: 0.00-1.00 ALB 3.8 g/dL (Normal) Range: 3.4-5.0 T PROT 8.1 g/dL (Normal) Range: 6.4-8.2 :38 MICROALB:CRE UR Comments: DR HU ORDERED LIPID LIVERDR BONEZZI ORDERED BMP MICROALB CREATININE, CBCMD, PSA MALB:CREAT 255.2 {mg/g_CRE} (Abnormal) MICROALBUMIN,UR 488.0 mg/L (Normal) UR CREAT 191.2 mg/dL (Normal) :38 PSA, SCREEN 0.6 ng/mL (Normal) Comments: DR HU ORDERED LIPID LIVERDR BONEZZI ORDERED BMP MICROALB CREATININE, CBCMD, PSA Range: 0.0-4.0 :10 HgA1C , Office (26380) HgA1C , Office 6.1 % (Normal) Range: 4.6 - 7.1 :10 Blood Glucose , Office (61552) Blood Glucose , Office 172 (Normal) [id number]:00 LIPID CHOL 150 mg/dL (Normal) Comments: <200 mg/dL Desirable 200-240 mg/dL Borderline >240 mg/dL High Risk HDL 44 mg/dL (Normal) Comments: Reference Range HDL <40 mg/dL Low HDL Cholesterol HDL >or= 60 mg/dL High HDL Cholesterol LDL 48 mg/dL (Normal) Range: 0-130 TRIG 291 mg/dL (Abnormal) Comments: Serum Triglycerides Reference Interval Normal <150 mg/dL Borderline high 150 - 199 mg/dL High 200 - 499 mg/dL Very High > or = 500 mg/dL VLDL 58 mg/dL (Abnormal) Range: 5-40 99-Nok-555778:00 LIVER ALB 4.0 g/dL (Normal) Range: 3.4-5.0 ALK P 50 U/L (Normal) Range: 50-136 ALT 25 U/L (Normal) Range: 12-78 Comments: Please Note: Revised Reference Range effective 09 AST 19 U/L (Normal) Range: 15-37 D BILI 0.12 mg/dL (Normal) Range: 0.00-0.30 T BILI 0.50 mg/dL (Normal) Range: 0.00-1.00 T PROT 7.7 g/dL (Normal) Range: 6.4-8.2 :33 CBCD,SMEAR DIFF Comments: ORDERED CBCMD LIPID CMP MICROCREATRATIO URINE ORDERED LIPID LIVER BAND 1 % (Normal) Range: 0-5 BASOPHIL 1 % (Normal) Range: 0-1 CELLS COUNTED 100 (Normal) EOS 4 % (Normal) Range: 0-5 HCT 44.9 % (Normal) Range: 40-54 HGB 15.3 g/dL (Normal) Range: 14.0-18.0 LYMPH 20 % (Normal) Range: 19-41 MCH 31.2 pg (Normal) Range: 27.0-32.0 MCHC 34.1 g/dL (Normal) Range: 32-36 MCV 91.6 fL (Normal) Range: 80-94 MONOCYTE 4 % (Normal) Range: 0-10 PLT 173 K/mm3 (Normal) Range: 150-450 PLT EST SeeNote (Normal) Comments: Result: ADEQUATE RBC 4.90 {M/mm3} (Normal) Range: 4.6-6.2 RDW 14.3 % (Normal) Range: 11.6-14.6 RED CELL MORPH SeeNote {NORMAL} (Normal) Comments: Result: NORM C+C SEGS 70 % (Normal) Range: 47-70 WBC 9.3 K/mm3 (Normal) Range: 4.4-11.0 :33 COMP METABOLIC Comments: ORDERED CBCMD LIPID CMP MICROCREATRATIO URINE ORDERED LIPID LIVER A/G 0.9 {RATIO} (Normal) Range: 0.9-2.4 ALB 3.4 g/dL (Normal) Range: 3.4-5.0 ALK P 70 U/L (Normal) Range: 50-136 ALT 31 U/L (Normal) Range: 30-65 AST 19 U/L (Normal) Range: 15-37 BUN 17 mg/dL (Normal) Range: 7-18 BUN/CRE 14.2 {RATIO} (Normal) Range: 10-20 CA 8.4 mg/dL (Abnormal) Range: 8.5-10.1 CL 101 mmol/L (Normal) Range: 98-107 CO2 25.0 mmol/L (Normal) Range: 21.0-32.0 CREAT,SERUM 1.2 mg/dL (Normal) Range: 0.8-1.3 EST GFR 64 mL/min (Normal) EST GFR - AA 78 mL/min (Normal) GAP 8 (Normal) Range: 5-15 GLOB 3.9 g/dL (Normal) Range: 2.7-4.2 GLU 143 mg/dL (Abnormal) Range: 70-110 Comments: Fasting Glucose result greater than or equal to 126 mg/dL suggests DIABETES MELLITUS per A.D.A. criteria. K 3.5 mmol/L (Normal) Range: 3.5-5.1 NA 134 mmol/L (Abnormal) Range: 136-145 T BILI 0.80 mg/dL (Normal) Range: 0.00-1.00 T PROT 7.3 g/dL (Normal) Range: 6.4-8.2 :33 D BILI 0.13 mg/dL (Normal) Comments: ORDERED CBCMD LIPID CMP MICROCREATRATIO URINE ORDERED LIPID LIVER Range: 0.00-0.30 :33 LIPID Comments: ORDERED CBCMD LIPID CMP MICROCREATRATIO URINE ORDERED LIPID LIVER CHOL 223 mg/dL (Abnormal) Comments: <200 mg/dL Desirable 200-240 mg/dL Borderline >240 mg/dL High Risk HDL 29 mg/dL (Abnormal) Comments: Reference Range HDL <40 mg/dL Low HDL Cholesterol HDL >or= 60 mg/dL High HDL Cholesterol LDL <TEST NOT PERFORMED> mg/dL (Normal) Range: 0-130 TRIG 709 mg/dL (Abnormal) Comments: TRIGLYCERIDE IS GREATER THAN 400 mg/dL. LDL RESULT IS INVALID AND WILL NOT BE REPORTED.Serum Triglycerides Reference Interval Normal <150 mg/dL Bor derline high 150 - 199 mg/dL High 200 - 499 mg/dL Very High > or = 500 mg/dL VLDL 142 mg/dL (Abnormal) Range: 5-40 :33 MICROALB:CRE UR Comments: ORDERED CBCMD LIPID CMP MICROCREATRATIO URINE ORDERED LIPID LIVER MALB:CREAT 421.7 {mg/g_CRE} (Abnormal) MICROALBUMIN,UR 927.0 mg/L (Normal) UR CREAT 219.8 mg/dL (Normal) [id number]-[id number]:38 Blood Glucose , Office (12702) Blood Glucose , Office 163 (Normal) :38 HgA1C , Office (52921) HgA1C , Office 6.0 % (Normal) Range: 4.6 - 7.1 :47 CBCD,SMEAR DIFF PLT EST SeeNote (Normal) Comments: Result: ADEQUATE RED CELL MORPH SeeNote {NORMAL} (Normal) Comments: Result: NORM C+C BAND 5 % (Normal) Range: 0-5 BASOPHIL 1 % (Normal) Range: 0-1 CELLS COUNTED 100 (Normal) EOS 6 % (Abnormal) Range: 0-5 HCT 42.9 % (Normal) Range: 40-54 HGB 15.0 g/dL (Normal) Range: 14.0-18.0 LYMPH 26 % (Normal) Range: 19-41 MCH 31.4 pg (Normal) Range: 27.0-32.0 MCHC 34.9 g/dL (Normal) Range: 32-36 MCV 90.0 fL (Normal) Range: 80-94 MONOCYTE 5 % (Normal) Range: 0-10 PLT 180 K/mm3 (Normal) Range: 150-450 RBC 4.76 {M/mm3} (Normal) Range: 4.6-6.2 RDW 13.9 % (Normal) Range: 11.6-14.6 SEGS 57 % (Normal) Range: 47-70 WBC 9.4 K/mm3 (Normal) Range: 4.4-11.0 :47 COMP METABOLIC A/G 1.0 {RATIO} (Normal) Range: 0.9-2.4 ALB 3.7 g/dL (Normal) Range: 3.4-5.0 ALK P 99 U/L (Normal) Range: 50-136 ALT 24 U/L (Abnormal) Range: 30-65 AST 18 U/L (Normal) Range: 15-37 BUN 12 mg/dL (Normal) Range: 7-18 BUN/CRE 9.2 {RATIO} (Abnormal) Range: 10-20 CA 8.1 mg/dL (Abnormal) Range: 8.5-10.1 CL 102 mmol/L (Normal) Range: 98-107 CO2 22.0 mmol/L (Normal) Range: 21.0-32.0 CREAT,SERUM 1.3 mg/dL (Normal) Range: 0.8-1.3 EST GFR 58 mL/min (Abnormal) EST GFR - AA 70 mL/min (Normal) GAP 9 (Normal) Range: 5-15 GLOB 3.7 g/dL (Normal) Range: 2.7-4.2 GLU 141 mg/dL (Abnormal) Range: 70-110 Comments: Fasting Glucose result greater than or equal to 126 mg/dL suggests DIABETES MELLITUS per A.D.A. criteria. K 3.7 mmol/L (Normal) Range: 3.5-5.1 NA 133 mmol/L (Abnormal) Range: 136-145 T BILI 0.50 mg/dL (Normal) Range: 0.00-1.00 T PROT 7.4 g/dL (Normal) Range: 6.4-8.2 :47 LIPID CHOL 119 mg/dL (Normal) Comments: <200 mg/dL Desirable 200-240 mg/dL Borderline >240 mg/dL High Risk HDL 31 mg/dL (Abnormal) Comments: Reference Range HDL <40 mg/dL Low HDL Cholesterol HDL >or= 60 mg/dL High HDL Cholesterol LDL <TEST NOT PERFORMED> mg/dL (Normal) Range: 0-130 TRIG 411 mg/dL (Abnormal) Comments: TRIGLYCERIDE IS GREATER THAN 400 mg/dL. LDL RESULT IS INVALID AND WILL NOT BE REPORTED.Serum Triglycerides Reference Interval Normal <150 mg/dL Bor derline high 150 - 199 mg/dL High 200 - 499 mg/dL Very High > or = 500 mg/dL VLDL 82 mg/dL (Abnormal) Range: 5-40 :47 MICROALB:CRE UR MALB:CREAT 114.0 {mg/g_CRE} (Abnormal) MICROALBUMIN,UR 240.0 mg/L (Normal) UR CREAT 210.4 mg/dL (Normal) :47 PSA, SCREEN 0.7 ng/mL (Normal) Range: 0.0-4.0 :06 HgA1C , Office (88131) HgA1C , Office 5.9 % (Normal) Range: 4.6 - 7.1 :06 Blood Glucose , Office (81630) Blood Glucose , Office 157 (Normal) [id number]:50 METABOLIC PANEL, COMPREHENSIVE Comments: PATIENT NOT FASTINGPERFORMED BY: [facility] [id number] [facility] [id number] ([id number]) A/G Ratio 1.6 (Normal) Range: 1.1-2.5 Albumin, Serum 4.6 g/dL (Normal) Range: 3.6-4.8 Alkaline Phosphatase, S 110 [iU]/L (Normal) Range: 25-160 ALT (SGPT) 24 [iU]/L (Normal) Range: 0-55 AST (SGOT) 23 [iU]/L (Normal) Range: 0-40 Bilirubin, Total 0.5 mg/dL (Normal) Range: 0.1-1.2 BUN 17 mg/dL (Normal) Range: 5-26 BUN/Creatinine Ratio 12 (Normal) Range: 8-27 Calcium, Serum 9.3 mg/dL (Normal) Range: 8.5-10.6 Carbon Dioxide, Total 23 mmol/L (Normal) Range: 20-32 Chloride, Serum 105 mmol/L (Normal) Range: 97-108 Creatinine, Serum 1.40 mg/dL (Abnormal) Range: 0.76-1.27 Globulin, Total 2.8 g/dL (Normal) Range: 1.5-4.5 Glom Filt Rate, Est 50 mL/min/1.73 (Abnormal) Glucose, Serum 102 mg/dL (Abnormal) Range: 65-99 If -Brazilian >59 mL/min/1.73 Comments: Note: Persistent reduction for 3 months or more in an eGFR<60 mL/min/1.73 m2 defines CKD. Patients with eGFR values>/=60 mL/min/1.73 m2 may also have CKD if evidence of persistentproteinur ia is (Normal) present. Additional information may be found [email or web address]. Potassium, Serum 4.0 mmol/L (Normal) Range: 3.5-5.2 Protein, Total, Serum 7.4 g/dL (Normal) Range: 6.0-8.5 Sodium, Serum 143 mmol/L (Normal) Range: 135-145 34-Epo-123651:50 CBC WITH MANUAL DIFF (26884) Comments: PATIENT NOT FASTINGClinical Information: ADD DRAW FEE [id number] ADD J [id number] PERFORMED BY: [facility] [id number] Baso (Absolute) 0.0 {x10E3/uL} (Normal) Range: 0.0-0.2 Basos 0 % (Normal) Range: 0-3 Eos 3 % (Normal) Range: 0-7 Eos (Absolute) 0.3 {x10E3/uL} (Normal) Range: 0.0-0.4 Hematocrit 44.2 % (Normal) Range: 36.0-50.0 Hemoglobin 15.4 g/dL (Normal) Range: 12.5-17.0 Lymphs 27 % (Normal) Range: 14-46 Lymphs (Absolute) 2.7 {x10E3/uL} (Normal) Range: 0.7-4.5 MCH 31.3 pg (Normal) Range: 27.0-34.0 MCHC 34.9 g/dL (Normal) Range: 32.0-36.0 MCV 90 fL (Normal) Range: 80-98 Monocytes 7 % (Normal) Range: 4-13 Monocytes(Absolute) 0.7 {x10E3/uL} (Normal) Range: 0.1-1.0 Neutrophils 63 % (Normal) Range: 40-74 Neutrophils (Absolute) 6.2 {x10E3/uL} (Normal) Range: 1.8-7.8 Platelets 227 {x10E3/uL} (Normal) Range: 140-415 RBC 4.94 {x10E6/uL} (Normal) Range: 4.10-5.60 RDW 14.7 % (Normal) Range: 11.7-15.0 WBC 9.9 {x10E3/uL} (Normal) Range: 4.0-10.5 :11 HgA1C , Office (19758) HgA1C , Office 5.6 % (Normal) Range: 4.6 - 7.1 :11 Blood Glucose , Office (54119) Blood Glucose , Office 101 (Normal) :55 HgA1C , Office (35075) HgA1C , Office 5.9 % (Normal) Range: 4.6 - 7.1 :55 Blood Glucose , Office (31628) Blood Glucose , Office 104 (Normal) :23 Billing Information Required Comments: TEST(S) ORDERED: [id number]-Ilawpqsh-Lzlzuvet Ag, SerumPATIENT NOT FASTINGPERFORMED BY: [facility]Mymphg[facility]10 [facility] [id number] Highest Level of SPRCS Comments: Information Submitted: NOT GIVENPlease Provide: Diagnosis Code, Signs or Symptoms in ICD9 format at the highest level of specificity.Updated/Corrected Information: Specificity (Normal) __Physician/Designee Signature: Date: 7-Hir-059671:23 Billing Information Required Comments: TEST(S) ORDERED: [id number]-Scrshimp-Lawytyuh Ag, SerumPATIENT NOT FASTINGClinical Information: ADD DRAW FEE [id number] ADD J [id number] PERFORMED BY: [employer] [place] [facility] [id number] SPRCS SPRCS (Normal) Comments: To enable [facility] to file an insurance claim on behalf of yourpatient, please provide or update as indicated the required billinginformation listed below. The HIPAA Privacy regulation at 45 VSB170.506 (c) (3) provides that a covered entity (Physician's Office/Referring Provider) may disclose PHI to another covered entity([facility]) for purposes of payment without patient authorization. .Please provide requested information and return via your servicerepresentative or fax to [phone] within 3 days. :23 PSA (PROSTATE SPECIFIC Comments: PATIENT NOT FASTINGClinical Information: ADD DRAW FEE [id number] ADD J [id number] PERFORMED BY: [facility] [id number] [facility] [id number] ANTIGEN) (V76.44) Prostate Specific Ag, Serum 1.1 ng/mL (Normal) Range: 0.0-4.0 Comments: [employer] (formerly [employer]) ICMA methodology. .EFFECTIVE March 30, 2008, PSA will be changing to the Erik ECLIA methodology. R ebaselining will be offered for 90 days using panel [id number]. The second result, provided by the [employer] ICMA methodology will be provided at no charge. [id number]-Hfv-[id number]:19 HgA1C , Office (31744) HgA1C , Office 6.1 % (Normal) Range: 4.6 - 7.1 :19 Blood Glucose , Office (52168) Blood Glucose , Office 248 (Normal) :23 CBCD BASO% 0.6 % (Normal) Range: 0-1 EO% 2.9 % (Normal) Range: 0-5 HCT 41.7 % (Normal) Range: 40-54 HGB 14.3 g/dL (Normal) Range: 14.0-18.0 LY% 23.8 % (Normal) Range: 19-41 MCH 29.3 pg (Normal) Range: 27.0-32.0 MCHC 34.2 g/dL (Normal) Range: 32-36 MCV 85.5 fL (Normal) Range: 80-94 MONO% 12.5 % (Abnormal) Range: 0-10 MPV 7.7 fL (Normal) Range: 6.5-12.0 NEUT% 60.2 % (Normal) Range: 47-70 PLT 221 K/mm3 (Normal) Range: 150-450 RBC 4.88 {M/mm3} (Normal) Range: 4.6-6.2 RDW 15.6 % (Abnormal) Range: 11.6-14.6 WBC 7.1 K/mm3 (Normal) Range: 4.4-11.0 :23 COMP METABOLIC A/G 1.1 {RATIO} (Normal) Range: 0.9-2.4 ALB 3.6 g/dL (Normal) Range: 3.4-5.0 ALK P 83 U/L (Normal) Range: 50-136 ALT 40 [iU]/L (Normal) Range: 30-65 AST 25 U/L (Normal) Range: 15-37 BUN 17 mg/dL (Normal) Range: 7-18 BUN/CRE 13.1 {RATIO} (Normal) Range: 10-20 CA 8.8 mg/dL (Normal) Range: 8.5-10.1 CL 101 mmol/L (Normal) Range: 98-107 CO2 25.4 mmol/L (Normal) Range: 21.0-32.0 CREAT,SERUM 1.3 mg/dL (Normal) Range: 0.8-1.3 GAP 9 (Normal) Range: 5-15 GLOB 3.3 g/dL (Normal) Range: 2.7-4.2 GLU 107 mg/dL (Normal) Range: 70-110 K 3.5 mmol/L (Normal) Range: 3.5-5.1 NA 135 mmol/L (Abnormal) Range: 136-145 T BILI 0.39 mg/dL (Normal) Range: 0.00-1.00 T PROT 6.9 g/dL (Normal) Range: 6.4-8.2 :50 CBCD,SMEAR DIFF CELLS COUNTED 100 (Normal) EOS 3 % (Normal) Range: 0-5 LYMPH 36 % (Normal) Range: 19-41 MCHC 34.3 g/dL (Normal) Range: 32-36 PLT 215 K/mm3 (Normal) Range: 150-450 PLT EST SeeNote (Normal) Comments: Result: ADEQUATE RDW 15.9 % (Abnormal) Range: 11.6-14.6 RED CELL MORPH SeeNote {NORMAL} (Normal) Comments: Result: NORM C+C SEGS 61 % (Normal) Range: 47-70 HCT 43.1 % (Normal) Range: 40-54 HGB 14.8 g/dL (Normal) Range: 14.0-18.0 MCH 29.4 pg (Normal) Range: 27.0-32.0 MCV 85.6 fL (Normal) Range: 80-94 RBC 5.04 {M/mm3} (Normal) Range: 4.6-6.2 WBC 10.9 K/mm3 (Normal) Range: 4.4-11.0 05-Feb-20087:50 COMP METABOLIC A/G 1.0 {RATIO} (Normal) Range: 0.9-2.4 ALB 3.5 g/dL (Normal) Range: 3.4-5.0 ALK P 74 U/L (Normal) Range: 50-136 ALT 51 [iU]/L (Normal) Range: 30-65 AST 22 U/L (Normal) Range: 15-37 BUN 17 mg/dL (Normal) Range: 7-18 BUN/CRE 15.5 {RATIO} (Normal) Range: 10-20 CA 8.2 mg/dL (Abnormal) Range: 8.5-10.1 CL 101 mmol/L (Normal) Range: 98-107 CO2 26.8 mmol/L (Normal) Range: 21.0-32.0 CREAT,SERUM 1.1 mg/dL (Normal) Range: 0.8-1.3 GAP 11 (Normal) Range: 5-15 GLOB 3.4 g/dL (Normal) Range: 2.7-4.2 GLU 95 mg/dL (Normal) Range: 70-110 K 3.4 mmol/L (Abnormal) Range: 3.5-5.1 NA 139 mmol/L (Normal) Range: 136-145 T BILI 0.34 mg/dL (Normal) Range: 0.00-1.00 T PROT 6.9 g/dL (Normal) Range: 6.4-8.2 :50 MICROALB:CRE UR MALB:CREAT 31.6 {mg/g_CRE} (Abnormal) MICROALBUMIN,UR 72.3 mg/L (Normal) UR CREAT 228.3 mg/dL (Normal) :51 HgA1C , Office (57121) HgA1C , Office 5.7 % (Normal) Range: 4.6 - 7.1 Comments: :51 Blood Glucose , Office (88634) Blood Glucose , Office 197 (Normal) Comments: aw :41 TROPONIN-I 0.04 ng/mL (Normal) Comments: TROPONIN-I EXPECTED VALUES < 0.50 NEGATIVE 0.50 - 1.49 INDETERMINANT > OR = 1.50 SUGGEST [place] :40 BMP Comments: COMMENTS: BONEZZIINDICATE CK '1', '2', '3', OR 'R' FOR RANDOM: 1 BUN 23 mg/dL (Abnormal) Range: 7-18 BUN/CRE 16.4 {RATIO} (Normal) Range: 10-20 CA 8.6 mg/dL (Normal) Range: 8.5-10.1 CL 103 mmol/L (Normal) Range: 98-107 CO2 23.0 mmol/L (Normal) Range: 21.0-32.0 Comments: Please Note Reference Interval Change CREAT,SERUM 1.4 mg/dL (Abnormal) Range: 0.8-1.3 GAP 12 (Normal) Range: 5-15 GLU 202 mg/dL (Abnormal) Range: 70-110 Comments: Glucose result greater than or equal to 200 mg/dLsuggests DIABETES MELLITUS per A.D.A. criteria. K 3.7 mmol/L (Normal) Range: 3.5-5.1 NA 138 mmol/L (Normal) Range: 136-145 :40 CBCD Comments: COMMENTS: BONEZZI BASO% 0.3 % (Normal) Range: 0-1 EO% 1.1 % (Normal) Range: 0-5 HCT 41.7 % (Normal) Range: 40-54 HGB 14.4 g/dL (Normal) Range: 14.0-18.0 LY% 11.9 % (Abnormal) Range: 19-41 MCH 29.6 pg (Normal) Range: 27.0-32.0 MCHC 34.5 g/dL (Normal) Range: 32-36 MCV 85.6 fL (Normal) Range: 80-94 MONO% 3.3 % (Normal) Range: 0-10 MPV 8.1 fL (Normal) Range: 6.5-12.0 NEUT% 83.4 % (Abnormal) Range: 47-70 PLT 228 K/mm3 (Normal) Range: 150-450 RBC 4.87 {M/mm3} (Normal) Range: 4.6-6.2 RDW 14.1 % (Normal) Range: 11.6-14.6 WBC 11.2 K/mm3 (Abnormal) Range: 4.4-11.0 :40 CPK TOTAL 97 U/L (Normal) Comments: COMMENTS: BONEZZIINDICATE CK '1', '2', '3', OR 'R' FOR RANDOM: 1 Range: 35-232 :40 CPKMB 0.8 ng/mL (Normal) Comments: COMMENTS: BONEZZIINDICATE CK '1', '2', '3', OR 'R' FOR RANDOM: 1 Range: 0.0-5.0 Comments: CK-MB and RI Interpretation MB Relative Index Non-AMI <or= 5 NA Indeterminate > 5 <or= 4 AMI > 5 > 4 :40 LIPASE 189 U/L (Normal) Range: 114-286 :40 LIVER ALB 4.3 g/dL (Normal) Range: 3.4-5.0 ALK P 128 U/L (Normal) Range: 50-136 ALT 43 [iU]/L (Normal) Range: 30-65 AST 23 U/L (Normal) Range: 15-37 D BILI 0.14 mg/dL (Normal) Range: 0.00-0.30 T BILI 0.54 mg/dL (Normal) Range: 0.00-1.00 T PROT 7.8 g/dL (Normal) Range: 6.4-8.2 :40 PRO TIME Comments: COMMENTS: ADD TO PTT INR 1.1 (Normal) PROTIME 12.5 s (Normal) Range: 10.6-13.2 :40 PTT 24.8 s (Normal) Range: 24.6-36.6 :40 TROPONIN-I 0.08 ng/mL (Normal) Comments: COMMENTS: BONEZZIINDICATE CK '1', '2', '3', OR 'R' FOR RANDOM: 1 Comments: TROPONIN-I EXPECTED VALUES < 0.50 NEGATIVE 0.50 - 1.49 INDETERMINANT > OR = 1.50 SUGGEST [place] :41 BMP BUN 19 mg/dL (Abnormal) Range: 7-18 BUN/CRE 14.6 {RATIO} (Normal) Range: 10-20 CA 8.3 mg/dL (Abnormal) Range: 8.5-10.1 CL 97 mmol/L (Abnormal) Range: 98-107 CO2 28.0 mmol/L (Normal) Range: 21.0-32.0 Comments: Please Note Reference Interval Change CREAT,SERUM 1.3 mg/dL (Normal) Range: 0.8-1.3 GAP 10 (Normal) Range: 5-15 GLU 123 mg/dL (Abnormal) Range: 70-110 Comments: Fasting Glucose result from 110 to <126 mg/dL suggests IMPAIRED HOMEOSTASIS per A.D.A. criteria. K 3.4 mmol/L (Abnormal) Range: 3.5-5.1 NA 135 mmol/L (Abnormal) Range: 136-145 :41 CPK TOTAL 39 U/L (Normal) Comments: INDICATE CK '1', '2', '3', OR 'R' FOR RANDOM: 3 Range: 35-232 :41 CPKMB < 0.5 ng/mL (Normal) Comments: INDICATE CK '1', '2', '3', OR 'R' FOR RANDOM: 3 Range: 0.0-5.0 Comments: CK-MB and RI Interpretation MB Relative Index Non-AMI <or= 5 NA Indeterminate > 5 <or= 4 AMI > 5 > 4 :41 LIPID CHOL 146 mg/dL (Normal) Comments: <200 mg/dL Desirable 200-240 mg/dL Borderline >240 mg/dL High Risk HDL 32 mg/dL (Abnormal) Comments: Reference Range HDL <40 mg/dL Low HDL Cholesterol HDL >or= 60 mg/dL High HDL Cholesterol LDL <TEST NOT PERFORMED> mg/dL (Normal) Range: 0-130 TRIG 403 mg/dL (Abnormal) Comments: TRIGLYCERIDE IS GREATER THAN 400 mg/dL. LDL RESULT IS INVALID AND WILL NOT BE REPORTED.Serum Triglycerides Reference Interval Normal <150 mg/dL Bor derline high 150 - 199 mg/dL High 200 - 499 mg/dL Very High > or = 500 mg/dL VLDL 81 mg/dL (Abnormal) Range: 5-40 :41 LIVER ALB 3.7 g/dL (Normal) Range: 3.4-5.0 ALK P 102 U/L (Normal) Range: 50-136 ALT 39 [iU]/L (Normal) Range: 30-65 AST 22 U/L (Normal) Range: 15-37 D BILI 0.08 mg/dL (Normal) Range: 0.00-0.30 T BILI 0.33 mg/dL (Normal) Range: 0.00-1.00 T PROT 7.4 g/dL (Normal) Range: 6.4-8.2 :41 TROPONIN-I 0.05 ng/mL (Normal) Comments: INDICATE CK '1', '2', '3', OR 'R' FOR RANDOM: 3 Comments: TROPONIN-I EXPECTED VALUES < 0.50 NEGATIVE 0.50 - 1.49 INDETERMINANT > OR = 1.50 SUGGEST [place] :30 PROTEIN,UR.RAN. 22.8 mg/dL (Abnormal) Comments: HOLD IN OE UNTIL SPECIMEN COLLECTED? (Y/N)* N :30 ROUTINE UA Comments: HOLD IN OE UNTIL SPECIMEN COLLECTED? (Y/N)* N BILIRUBIN URINE SeeNote (Normal) Comments: Result: NEGATIVE CLARITY CLEAR (Normal) COLOR YELLOW (Normal) GLUCOSE, UR SeeNote (Normal) Comments: Result: NEGATIVE KETONE UR SeeNote mg/dL (Normal) Comments: Result: NEGATIVE LEUK ESTERASE SeeNote (Normal) Comments: Result: NEGATIVE NITRITE UR SeeNote (Normal) Comments: Result: NEGATIVE OCCULT BLOOD-UR SeeNote (Normal) Comments: Result: NEGATIVE pH UR 6.5 (Normal) Range: 5.0-8.0 PROT DIPSTX SeeNote (Normal) Comments: Result: NEGATIVE SP.GR. DIPSTX 1.020 (Normal) Range: 1.002-1.030 UROBILI 0.2 EU/dl (Normal) Range: 0.2 - 1.0 :30 UR CREAT 158.4 mg/dL (Normal) Comments: HOLD IN OE UNTIL SPECIMEN COLLECTED? (Y/N)* N :10 CPK TOTAL 47 U/L (Normal) Comments: INDICATE CK '1', '2', '3', OR 'R' FOR RANDOM: 2 Range: 35-232 :10 CPKMB < 0.5 ng/mL (Normal) Comments: INDICATE CK '1', '2', '3', OR 'R' FOR RANDOM: 2 Range: 0.0-5.0 Comments: CK-MB and RI Interpretation MB Relative Index Non-AMI <or= 5 NA Indeterminate > 5 <or= 4 AMI > 5 > 4 :10 SPE [id number] A/G RATIO 1.2 (Normal) Range: 0.7-2.0 ALBUMIN 3.8 g/dL (Normal) Range: 3.2-5.6 ALPHA-1 GLOBUL 0.2 g/dL (Normal) Range: 0.1-0.4 ALPHA-2 GLOBUL 1.0 g/dL (Normal) Range: 0.4-1.2 BETA GLOBULIN 1.0 g/dL (Normal) Range: 0.6-1.3 GAMMA GLOBULIN 0.9 g/dL (Normal) Range: 0.5-1.6 GLOBULIN, TOTAL 3.1 g/dL (Normal) Range: 2.0-4.5 INTERPRETATION Comment (Normal) Comments: The SPE pattern appears essentially unremarkable. Evidenceof monoclonal protein is not apparent.Performed At: [facility] [place], [place] [id number] M-SPIKE SeeNote g/dL (Normal) Comments: Result: Not Observed NOTE: Comment (Normal) Comments: Protein electrophoresis scan will follow via mail orcourier. PROTEIN,TOTAL 6.9 g/dL (Normal) Range: 6.0-8.5 :10 TROPONIN-I < 0.04 ng/mL (Normal) Comments: INDICATE CK '1', '2', '3', OR 'R' FOR RANDOM: 2 Comments: TROPONIN-I EXPECTED VALUES < 0.50 NEGATIVE 0.50 - 1.49 INDETERMINANT > OR = 1.50 SUGGEST [place] :50 PRO TIME INR 1.0 (Normal) PROTIME 12.2 s (Normal) Range: 10.6-13.2 :50 TROPONIN-I < 0.04 ng/mL (Normal) Comments: TROPONIN-I EXPECTED VALUES < 0.50 NEGATIVE 0.50 - 1.49 INDETERMINANT > OR = 1.50 SUGGEST NH :08 SHONDA 38 U/L (Normal) Comments: COMMENTS: 6 DR NÚÑEZ Range: 25-115 :08 B-TYPE JUSTIN PEP 143.0 pg/mL (Abnormal) Comments: COMMENTS: 6 DR NÚÑEZ :08 CBCD Comments: COMMENTS: 6 DR NÚÑEZ BASO% 0.4 % (Normal) Range: 0-1 EO% 1.8 % (Normal) Range: 0-5 HCT 45.2 % (Normal) Range: 40-54 HGB 15.7 g/dL (Normal) Range: 14.0-18.0 LY% 16.6 % (Abnormal) Range: 19-41 MCH 29.6 pg (Normal) Range: 27.0-32.0 MCHC 34.8 g/dL (Normal) Range: 32-36 MCV 85.1 fL (Normal) Range: 80-94 MONO% 7.4 % (Normal) Range: 0-10 MPV 8.0 fL (Normal) Range: 6.5-12.0 NEUT% 73.8 % (Abnormal) Range: 47-70 PLT 258 K/mm3 (Normal) Range: 150-450 RBC 5.30 {M/mm3} (Normal) Range: 4.6-6.2 RDW 13.5 % (Normal) Range: 11.6-14.6 WBC 9.7 K/mm3 (Normal) Range: 4.4-11.0 :08 COMP METABOLIC Comments: COMMENTS: 6 DR NÚÑEZ A/G 1.0 {RATIO} (Normal) Range: 0.9-2.4 ALB 4.4 g/dL (Normal) Range: 3.4-5.0 ALK P 127 U/L (Normal) Range: 50-136 ALT 46 [iU]/L (Normal) Range: 30-65 AST 24 U/L (Normal) Range: 15-37 BUN 20 mg/dL (Abnormal) Range: 7-18 BUN/CRE 14.3 {RATIO} (Normal) Range: 10-20 CA 9.3 mg/dL (Normal) Range: 8.5-10.1 CL 95 mmol/L (Abnormal) Range: 98-107 CO2 25.9 mmol/L (Normal) Range: 21.0-32.0 Comments: Please Note Reference Interval Change CREAT,SERUM 1.4 mg/dL (Abnormal) Range: 0.8-1.3 GAP 12 (Normal) Range: 5-15 GLOB 4.3 g/dL (Abnormal) Range: 2.7-4.2 Comments: Please Note Reference Interval Change GLU 148 mg/dL (Abnormal) Range: 70-110 Comments: Fasting Glucose result greater than or equal to 126 mg/dL suggests DIABETES MELLITUS per A.D.A. criteria. K 3.9 mmol/L (Normal) Range: 3.5-5.1 NA 133 mmol/L (Abnormal) Range: 136-145 T BILI 0.44 mg/dL (Normal) Range: 0.00-1.00 T PROT 8.7 g/dL (Abnormal) Range: 6.4-8.2 :08 D BILI 0.10 mg/dL (Normal) Comments: COMMENTS: 6 DR NÚÑEZ Range: 0.00-0.30 :08 LIPASE 205 U/L (Normal) Comments: COMMENTS: 6 DR NÚÑEZ Range: 114-286 :08 TROPONIN-I < 0.04 ng/mL (Normal) Comments: COMMENTS: 6 DR NÚÑEZ Comments: TROPONIN-I EXPECTED VALUES < 0.50 NEGATIVE 0.50 - 1.49 INDETERMINANT > OR = 1.50 SUGGEST NH :30 CHEST WITHOUT CONTRAST Radiology Report See Note (Normal) Comments: Exam Number: [id number] CT HIGH RESOLUTION OF CHEST WITHOUT CONTRAST CLINICAL STATEMENTCough and shortness of breath. COMPARISONChest radiograph of January 29, 2007 High resolution noncontrast enhanced CT o f the chest was performedwith the patient in a prone position. FINDINGSLung parenchyma is clear. There is no evidence for chronicinterstitial pulmonary fibrosis. There is no consolidation,infiltrate o r pleural effusion. There is no bronchiectasis orperipheral honeycombing. The trachea and main bronchi are patent. Evaluation of the mediastinum is limited by lack of contrast. Thepatient is status p ost median sternotomy and cardiac pacer insertion. IMPRESSIONNegative high resolution of the thorax. No evidence for chronicinterstitial lung disease or acute parenchymal consolidation. Reported By: DENISSE URIAS M.D. :13 HgA1C , Office ([id number]) HgA1C , Office 6.5 % (Normal) Range: 4.6 - 7.1 :13 Blood Glucose , Office ([id number]) Blood Glucose , Office 124 (Normal) :59 COMP METABOLIC A/G 1.0 {RATIO} (Normal) Range: 0.9-2.4 ALB 3.9 g/dL (Normal) Range: 3.4-5.0 ALK P 109 U/L (Normal) Range: 50-136 ALT 43 [iU]/L (Normal) Range: 30-65 AST 17 U/L (Normal) Range: 15-37 BUN 28 mg/dL (Abnormal) Range: 7-18 BUN/CRE 21.5 {RATIO} (Abnormal) Range: 10-20 CA 8.9 mg/dL (Normal) Range: 8.5-10.1 CL 102 mmol/L (Normal) Range: 98-107 CO2 21.3 mmol/L (Abnormal) Range: 22.0-29.0 CREAT,SERUM 1.3 mg/dL (Normal) Range: 0.8-1.3 GAP 13 (Normal) Range: 5-15 GLOB 3.9 g/dL (Abnormal) Range: 2.3-3.5 GLU 181 mg/dL (Abnormal) Range: 70-110 Comments: Fasting Glucose result greater than or equal to 126 mg/dL suggests DIABETES MELLITUS per A.D.A. criteria. K 3.8 mmol/L (Normal) Range: 3.5-5.1 NA 136 mmol/L (Normal) Range: 136-145 T BILI 0.38 mg/dL (Normal) Range: 0.00-1.00 T PROT 7.8 g/dL (Normal) Range: 6.4-8.2 :59 LIPID CHOL 125 mg/dL (Normal) Comments: <200 mg/dL Desirable 200-240 mg/dL Borderline >240 mg/dL High Risk HDL 42 mg/dL (Normal) Comments: Reference Range HDL <40 mg/dL Low HDL Cholesterol HDL >or= 60 mg/dL High HDL Cholesterol LDL 66 mg/dL (Normal) Range: 0-130 TRIG 86 mg/dL (Normal) Comments: Serum Triglycerides Reference Interval Normal <150 mg/dL Borderline high 150 - 199 mg/dL High 200 - 499 mg/dL Very High > or = 500 mg/dL VLDL 17 mg/dL (Normal) Range: 5-40 :38 CHEST, PA AND LATERAL Radiology Report See Note (Normal) Comments: Exam Number: [id number] PA AND LATERAL CHEST HISTORY Being done for cough. FINDINGSCardiac configuration is normal. No acute infiltrate, effusion, orpneumothorax is identified. There is a pacema ker noted in the leftanterior chest. No abnormality is noted in the leads as demonstrated. IMPRESSION1. No acute change noted in the lungs. 2. Little if any change from 09/04/06. Reported By: AMANDO NANCE M.D. 0-Zhn-[id number]:00 C DIF See Note (Normal) Comments: C. DIFF TOXINS A&B NEGATIVE :19 LIVER ALB 3.7 g/dL (Normal) Range: 3.4-5.0 ALK P 119 U/L (Normal) Range: 50-136 ALT 43 [iU]/L (Normal) Range: 30-65 AST 26 U/L (Normal) Range: 15-37 D BILI 0.07 mg/dL (Normal) Range: 0.00-0.30 T BILI 0.33 mg/dL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 27-Nov-2018 10:00 [facility] Anabella Núñez MD, MD, Dana M Planned Procedures ELECTROCARDIOGRAM, COMPLETE (ECG) On: 17-Sep-2018 Intent (30956)By: Anabella Núñez MD Comments: see scanned document of test done to see results reviewed today with patient Anabella ROGERS INFUSION OF 0.9% SODIUM CHLORIDE On: 25-Apr-2018 Intent SOLUTION ([id number])By: Anabella Núñez MD Comments: lot:[id number]:IV right anticub dose:250ccgiven by:aaliyah valdovinosERASAD MD, Dana M ELECTROCARDIOGRAM, COMPLETE (ECG) On: 25-Apr-2018 Intent ([id number])By: Anabella Núñez MD Comments: see scanned document of test done to see results reviewed today with patient Anabella ROGERS INFUSION, NORMAL SALINE SOLUTION , On: 18-Jan-2018 Intent 1000 CC (Special Coverage Instructions Comments: lot:[id number]/15rte:IV dose: 500ml sodium chloride given by: aaliyah left fore arm ABN signedER, SOCK TURNER Apply. See MCM: 2049) (J7030)By: Anabella Núñez MD, MD, Dana M Radiology - Chest- PA and LatBy: Fast On: 09-Jan-2018 Delisa Pittman DO Comments: stat call results Spirometry (18931)By: Delisa Gordon DO On: 06-Jun-2017 Intent Lavell Comments: good effort and curve with decrease in small airways Radiology - Chest- PA and LatBy: Fast On: 06-Jun-2017 Delisa Pittman DO Comments: stat call rsutls Ultrasound - RenalBy: Anabella Núñez MD On: 06-Sep-2016 Intent Anabella Tirado MD Aerosol Treatment ([id number])By: Mynor On: 15-Feb-2016 Intent Daria LION Radiology - ChestBy: Daria Lowe CNP On: 13-Sep-2015 Intent Solu -Medrol Injection, 125 mg On: 13-Sep-2015 Intent (J2930)By: Daria Lowe CNP Comments: lot:[id number]:12/2017route:IMdose:125mgsite:R hipDSMA Carmela Aerosol Treatment (77452)By: Mynor On: 13-Sep-2015 Intent Daria LION Comments: patient tolerated well Aerosol Treatment (31746)By: Dami On: 07-Sep-2015 Anabella Pittman MD, MD, Dana M Prevnar 13 (88825)By: Dami ROGERS, On: 16-Oct-2014 Intent Anabella Turcios MD ADMINISTRATION OF INFLUENZA VIRUS On: 04-Aug-2014 Intent VACCINE (G0008)By: Visit, Nurse Comments: Lot #[id number]-L dltd, IMDose prefilled syringegiven by:jmVIS and ABN signed FLU VAC, SPLIT, >3 YEARS, INTRAMUSC On: 04-Aug-2014 Intent (07733)By: Visit, Nurse Radiology - ChestBy: Anabella Núñez MD On: 20-Jan-2014 Anabella Nation MD Aerosol Treatment ([id number])By: Dami On: 20-Jan-2014 Anabella Pittman MD, MD, Dana M Eprescribed prescriptions ([id number])By: On: 20-Jan-2014 Intent Anabella Núñez MD, MD, Dana M FLU VAC, SPLIT, >3 YEARS, INTRAMUSC On: 10-Jul-2013 Intent (84432)By: MATILDA Hernandez Comments: Lot #:[id number] date:6.14Amount given:0.5mlRoute: IMSite given:L DltdGiven by: VIS and ABN signed ADMINISTRATION OF INFLUENZA VIRUS On: 10-Jul-2013 Intent VACCINE (G0008)By: MATILDA Hernandez Eprescribed prescriptions ([id number])By: On: 11-Dec-2012 Intent Delisa Gordon DO Pulse Oximetry (77914)By: Evan BARFIELD, On: 11-Dec-2012 Intent Delisa oMnte Comments: 98 Spirometry (10375)By: Delisa Gordon DO On: 11-Dec-2012 Intent Lavell Comments: good effort and curve normal Radiology - Chest- PA and LatBy: Fast On: 11-Dec-2012 Delisa Pittman DO Comments: call wet read Eprescribed prescriptions (G8553)By: On: 18-Nov-2012 Intent Bonnie La [place]ena TDAP VACCINE >7 IM (80223)By: David, On: 20-Feb-2012 Intent MATILDA Comments: Lot #:[id number] date:21-16-27Ktuqef given:0.5mlRoute: IMSite given:right deltoid Given by: aaliyah mallory Pulse Oximetry (55615)By: Mynor LION, On: 17-Oct-2011 Intent Simona Aerosol Treatment (70607)By: Mynor On: 17-Oct-2011 Intent AYAD Simona FLU VAC, SPLIT, >3 YEARS, INTRAMUSC On: 08-Aug-2011 Intent (19714)By: Diana Caballero RN Comments: Lot #: [id number] date: 04/09Amount given: 0.5 mlRoute: IMSite given: left deltoidGiven by: BEKA Dc ADMINISTRATION OF INFLUENZA VIRUS On: 08-Aug-2011 Intent VACCINE (G0008)By: Diana Caballero RN Radiology - Hip - BilateralBy: Dami On: 13-Oct-2010 Intent Anabella ROGERS MD, Dana M Spirometry (50992)By: Dami ROGERS, On: 13-Oct-2010 Intent Anabella Turcios MD Pulse Oximetry (99000)By: Dami ROGERS, On: 13-Oct-2010 Intent Anabella Turcios MD FLU VAC, SPLIT, >3 YEARS, INTRAMUSC On: 05-Sep-2010 Intent (99201)By: Dasha Ramirez LPN Comments: Lot #[id number]/06site-right deltoidgiven by:[facility] ADMINISTRATION OF INFLUENZA VIRUS On: 05-Sep-2010 Intent VACCINE (G0008)By: Dasha Ramirez LPN Renal DopplerBy: Anabella Núñez MD On: 23-May-2010 Intent Anabella Núñez MD Ultrasound - TesticularBy: Mynor LION, On: 10-May-[address] - Abdomen & Pelvis (IV Contrast On: 09-May-2010 Intent Needed)By: Daria Lowe CNP Comments: today call wet read to [facility] ADMINISTRATION OF INFLUENZA VIRUS On: 26-Jul-2009 Intent VACCINE (G0008)By: Anabella Núñez MD Comments: lot # [id number] 02/20108021dget-ZXLNyuajo-SUyxac- 0.5ML Tolerated well Anabella Da Silva MA, MD FLU VAC, SPLIT, >3 YEARS, INTRAMUSC On: 26-Jul-2009 Intent (28459)By: Anabella Núñez MD, MD, Dana M EKG (67301)By: Gabriela Douglas On: 19-Jun-2008 Intent EsophagramBy: Anabella Núñez MD On: 20-Nov-2007 Intent Anabella Núñez MD Inhaler Demonstration (12689)By: On: 02-Oct-2007 Intent Daria Lowe CNP Pulse Oximetry (07136)By: Mynor LION, On: 02-Oct-2007 Intent Daria Otto Aerosol Treatment (84727)By: Mynor On: 02-Oct-2007 Intent Daria LION Six Minute Walk Assessment (35609)By: On: 27-Feb-2007 Intent Tj Oquendo LPNsie Comments: ABN signed Inhaler Demo (71169)By: Delisa Gordon DO On: 18-Feb-2007 Intent A Pulse Oximetry (53922)By: DILSHAD LION, On: 31-Jan-2007 Intent MARIO Comments: 96% Aerosol Treatment (85623)By: DILSHAD On: 31-Jan-2007 Intent MARIO LION Solu- Medrol Injection, 125mg On: 31-Jan-2007 Intent (J2930)By: MARIO YUNG CNP Aerosol Treatment (37707)By: Evan BARFIELD, On: 28-Jan-2007 Intent Delisa A Inhaler Demo (06872)By: Delisa Gordon DO On: 28-Jan-2007 Intent A Radiology - Chest- PA and LatBy: Evan On: 28-Jan-2007 Delisa Pittman DO Spirometry (41376)By: Delisa Gordon DO On: 28-Jan-2007 Intent A Comments: good effort and curve- mild obstruction Pulse Oximetry (52372)By: Gene, On: 28-Jan-2007 Intent Rolanda Comments: ins waiver initially - after tx was 95 Planned Medications INFUSION, NORMAL SALINE SOLUTION , 1000 CC Ordered: 18-Jan-2018 Pending Dami ROGERS, Anabella Núñez MD, Anabella Miller INJECTION, METHYLPREDNISOLONE SODIUM SUCCINATE, UP TO 125 MG Ordered: 13-Sep-2015 Pending Daria Lowe CNP Instructions Name Dates Details Atrial fibrillation and flutter : How to access health information online Indication: Atrial fibrillation and flutter Atrial fibrillation and flutter : How to access health information online - Detail Indication: Atrial fibrillation and flutter Atrial fibrillation and flutter : Patient Instructions Indication: Atrial fibrillation and flutter BMI 30.0-30.9,adult : How to access health information online Indication: BMI 30.0-30.9,adult BMI 30.0-30.9,adult : How to access health information online - Detail Indication: BMI 30.0-30.9,adult BMI 30.0-30.9,adult : Patient Instructions Indication: BMI 30.0-30.9,adult Nonsmoker : How to access health information online Indication: Nonsmoker Nonsmoker : How to access health information online - Detail Indication: Nonsmoker Nonsmoker : Patient Instructions Indication: Nonsmoker History of CHF (congestive heart failure) : How to access health information online Indication: History of CHF (congestive heart failure) History of CHF (congestive heart failure) : How to access health information online - Detail Indication: History of CHF (congestive heart failure) History of CHF (congestive heart failure) : Patient Instructions Indication: History of CHF (congestive heart failure) BMI 30.0-30.9,adult : How to access health information online Indication: BMI 30.0-30.9,adult BMI 30.0-30.9,adult : How to access health information online - Detail Indication: BMI 30.0-30.9,adult BMI 30.0-30.9,adult : Patient Instructions Indication: BMI 30.0-30.9,adult BMI 30.0-30.9,adult : How to access health information online Indication: BMI 30.0-30.9,adult BMI 30.0-30.9,adult : How to access health information online - Detail Indication: BMI 30.0-30.9,adult BMI 30.0-30.9,adult : Patient Instructions Indication: BMI 30.0-30.9,adult COPD (chronic obstructive pulmonary disease) : How to access health information online Indication: COPD (chronic obstructive pulmonary disease) COPD (chronic obstructive pulmonary disease) : How to access health information online - Detail Indication: COPD (chronic obstructive pulmonary disease) COPD (chronic obstructive pulmonary disease) : Patient Instructions Indication: COPD (chronic obstructive pulmonary disease) BMI 28.0-28.9,adult : How to access health information online Indication: BMI 28.0-28.9,adult BMI 28.0-28.9,adult : How to access health information online - Detail Indication: BMI 28.0-28.9,adult BMI 28.0-28.9,adult : Patient Instructions Indication: BMI 28.0-28.9,adult BMI 29.0-29.9,adult : How to access health information online Indication: BMI 29.0-29.9,adult BMI 29.0-29.9,adult : How to access health information online - Detail Indication: BMI 29.0-29.9,adult BMI 29.0-29.9,adult : Patient Instructions Indication: BMI 29.0-29.9,adult Shortness of breath : How to access health information online Indication: Shortness of breath Shortness of breath : How to access health information online - Detail Indication: Shortness of breath Shortness of breath : Patient Instructions Indication: Shortness of breath BMI 29.0-29.9,adult : How to access health information online Indication: BMI 29.0-29.9,adult BMI 29.0-29.9,adult : How to access health information online - Detail Indication: BMI 29.0-29.9,adult BMI 29.0-29.9,adult : Patient Instructions Indication: BMI 29.0-29.9,adult Cough : How to access health information online Indication: Cough Cough : How to access health information online - Detail Indication: Cough Cough : Patient Instructions Indication: Cough BMI 29.0-29.9,adult : How to access health information online Indication: BMI 29.0-29.9,adult BMI 29.0-29.9,adult : How to access health information online - Detail Indication: BMI 29.0-29.9,adult BMI 29.0-29.9,adult : Patient Instructions Indication: BMI 29.0-29.9,adult BMI 28.0-28.9,adult : How to access health information online Indication: BMI 28.0-28.9,adult BMI 28.0-28.9,adult : How to access health information online - Detail Indication: BMI 28.0-28.9,adult BMI 28.0-28.9,adult : Patient Instructions Indication: BMI 28.0-28.9,adult Right lower lobe pneumonia : Patient Instructions Indication: Right lower lobe pneumonia Right lower lobe pneumonia : How to access health information online Indication: Right lower lobe pneumonia Right lower lobe pneumonia : How to access health information online - Detail Indication: Right lower lobe pneumonia Right lower lobe pneumonia : Patient Instructions Indication: Right lower lobe pneumonia History of tobacco abuse : How to access health information online Indication: History of tobacco abuse History of tobacco abuse : How to access health information online - Detail Indication: History of tobacco abuse History of tobacco abuse : Patient Instructions Indication: History of tobacco abuse Current drinker of alcohol : How to access health information online Indication: Current drinker of alcohol Current drinker of alcohol : How to access health information online - Detail Indication: Current drinker of alcohol Current drinker of alcohol : Patient Instructions Indication: Current drinker of alcohol BMI 30.0-30.9,adult : How to access health information online Indication: BMI 30.0-30.9,adult BMI 30.0-30.9,adult : How to access health information online - Detail Indication: BMI 30.0-30.9,adult BMI 30.0-30.9,adult : Patient Instructions Indication: BMI 30.0-30.9,adult BMI 30.0-30.9,adult : How to access health information online Indication: BMI 30.0-30.9,adult BMI 30.0-30.9,adult : How to access health information online - Detail Indication: BMI 30.0-30.9,adult BMI 30.0-30.9,adult : Patient Instructions Indication: BMI 30.0-30.9,adult BMI 29.0-29.9,adult : How to access health information online Indication: BMI 29.0-29.9,adult BMI 29.0-29.9,adult : How to access health information online - Detail Indication: BMI 29.0-29.9,adult BMI 29.0-29.9,adult : Patient Instructions Indication: BMI 29.0-29.9,adult Acute bacterial bronchitis : How to access health information online - Detail Indication: Acute bacterial bronchitis Acute bacterial bronchitis : Patient Instructions Indication: Acute bacterial bronchitis Rash : How to access health information online Indication: Rash Rash : How to access health information online - Detail Indication: Rash Rash : Patient Instructions Indication: Rash Encounter for health maintenance examination with abnormal findings : How to access health information online Indication: Encounter for health maintenance examination with abnormal findings Encounter for health maintenance examination with abnormal findings : How to access health information online - Detail Indication: Encounter for health maintenance examination with abnormal findings Encounter for health maintenance examination with abnormal findings : Patient Instructions Indication: Encounter for health maintenance examination with abnormal findings NH (myocardial infarction) : How to access health information online Indication: NH (myocardial infarction) NH (myocardial infarction) : How to access health information online - Detail Indication: NH (myocardial infarction) NH (myocardial infarction) : Patient Instructions Indication: NH (myocardial infarction) Allergic rhinitis : Patient Instructions Indication: Allergic rhinitis Diabetes mellitus with chronic kidney disease : How to access health information online Indication: Diabetes mellitus with chronic kidney disease Diabetes mellitus with chronic kidney disease : How to access health information online - Detail Indication: Diabetes mellitus with chronic kidney disease Diabetes mellitus with chronic kidney disease : Patient Instructions Indication: Diabetes mellitus with chronic kidney disease Hypothyroid : How to access health information online Indication: Hypothyroid Hypothyroid : How to access health information online - Detail Indication: Hypothyroid Hypothyroid : Patient Instructions Indication: Hypothyroid Asthmatic bronchitis with acute exacerbation : How to access health information online Indication: Asthmatic bronchitis with acute exacerbation Asthmatic bronchitis with acute exacerbation : How to access health information online - Detail Indication: Asthmatic bronchitis with acute exacerbation Asthmatic bronchitis with acute exacerbation : Patient Instructions Indication: Asthmatic bronchitis with acute exacerbation Asthmatic bronchitis with acute exacerbation : How to access health information online Indication: Asthmatic bronchitis with acute exacerbation Asthmatic bronchitis with acute exacerbation : How to access health information online - Detail Indication: Asthmatic bronchitis with acute exacerbation Asthmatic bronchitis with acute exacerbation : Patient Instructions Indication: Asthmatic bronchitis with acute exacerbation Diabetes mellitus with chronic kidney disease : How to access health information online Indication: Diabetes mellitus with chronic kidney disease Diabetes mellitus with chronic kidney disease : How to access health information online - Detail Indication: Diabetes mellitus with chronic kidney disease Diabetes mellitus with chronic kidney disease : Patient Instructions Indication: Diabetes mellitus with chronic kidney disease Diabetes mellitus with chronic kidney disease : How to access health information online - Detail Indication: Diabetes mellitus with chronic kidney disease Diabetes mellitus with chronic kidney disease : Patient Instructions Indication: Diabetes mellitus with chronic kidney disease Diabetes mellitus with chronic kidney disease : Patient Instructions Indication: Diabetes mellitus with chronic kidney disease Acute bacterial bronchitis : Patient Instructions Indication: Acute bacterial bronchitis Need for prophylactic vaccination and inoculation against influenza : Patient Instructions Indication: Need for prophylactic vaccination and inoculation against influenza Unspecified bacterial pneumonia : Patient Instructions Indication: Unspecified bacterial pneumonia Diabetes mellitus with chronic kidney disease : Patient Instructions Indication: Diabetes mellitus with chronic kidney disease Acute sinusitis, unspecified : Patient Instructions Indication: Acute sinusitis, unspecified Encounters Office Visit On: 11-Nov-2018 12:45 Encounter Reason: Follow up hospital - Reason for ER visit: note: (cardiac issues). The patient feels well with minor complaints and has decreased energy level. Patient has been compliant with instructions. Current medic End: 12-Nov-2018 11:10 ation use: no side effects and compliant with dosing regimen. Patient sleeps 8 hours per night. Impact of disease: emotional impact-moderate. Nutrition: balanced diet and supplemental vitamins.Encounter Diagnosis: BMI 29.0-29.9,adult, History of tobacco abuse, Atrial fibrillation and flutter, Hypertension, Hyperplasia, prostate, Allergic rhinitis, Vitamin D insufficiency, Peripheral vascular disease, RLS (restless legs syndrome), Testicular hypofunction, Coronary artery disease, Hypothyroid, Mixed hyperlipidemia, Obesity, Macrocytosis, COPD (chronic obstructive pulmonary disease), Autonomic instability, Thrombocytopenia, Cardiomyopathy, Erectile dysfunction, Sensorineural hearing loss (SNHL) of both ears, Shortness of breath , Cardiac dysrhythmia, Hypomagnesemia, Generally unsteady, Obstructive sleep apnea, adult, CKD (chronic kidney disease), stage 3 (moderate), Abnormal platelet aggregation, Diabetes mellitus with chronic kidney disease, History of CHF (congestive heart failure), Depression, Debilitated, Leg weakness, Memory loss, Seizure, Nonsmoker, Abnormal laboratory test, Dental abscess, BMI 30.0-30.9,adult, Itching, Anorexia [facility] Phone Encounter On: 05-Nov-2018 17:07 [facility] End: 05-Nov-2018 17:18 Phone Encounter On: 05-Nov-2018 17:00 [facility] End: 05-Nov-2018 17:06 Review On: 01-Nov-2018 12:02 [facility] Office Visit On: 23-Oct-2018 8:09 Encounter Diagnosis: Atrial fibrillation and flutter, Acute bacterial bronchitis, Debilitated, Seizure, Diabetes mellitus with chronic kidney disease, History of CHF (congestive heart failure) End: 28-Oct-2018 13:25 [facility] Phone Encounter On: 27-Sep-2018 13:55 Encounter Diagnosis: Depression End: 27-Sep-2018 13:56 [facility] Office Visit On: 17-Sep-2018 8:35 Encounter Diagnosis: Episode of syncope, Seizure, Cardiac dysrhythmia End: 20-Sep-2018 9:07 [facility] Office Visit On: 16-Sep-2018 13:13 Encounter Reason: Follow up acute care visit - The patient feeling better since last seen and improving. Patient has been compliant with instructions. Current medication use: no side effects and compliant with dosing reg End: 16-Sep-2018 17:01 imen. Patient sleeps 7 hours per night. Impact of disease: emotional impact-mild. Nutrition: balanced diet and supplemental vitamins. The medical issues the patient is following up for include other (dizzy light headed).Encounter Diagnosis: History of CHF (congestive heart failure), Itching, Seizure, Leg weakness [facility] Lab Order On: 10-Sep-2018 10:03 Encounter Diagnosis: CKD (chronic kidney disease), stage 3 (moderate) End: 10-Sep-2018 10:06 [facility] Office Visit On: 19-Aug-2018 11:31 Encounter Reason: Follow up acute care visit - The patient feels the same. Patient has been compliant with instructions. Current medication use: no side effects and compliant with dosing regimen. Patient sleeps 7 hours p End: 19-Aug-2018 12:00 er night. Impact of disease: emotional impact-mild. Nutrition: balanced diet and supplemental vitamins. The medical issues the patient is following up for include URI.Encounter Diagnosis: BMI 30.0-30.9,adult, Shortness of breath, CKD (chronic kidney disease), stage 3 (moderate), History of CHF (congestive heart failure), Seizure [facility] Lab Order On: 13-Aug-2018 12:24 Encounter Diagnosis: CKD (chronic kidney disease), stage 3 (moderate) End: 13-Aug-2018 12:26 [facility] Office Visit On: 13-Aug-2018 11:16 Encounter Diagnosis: BMI 29.0-29.9,adult, Nonsmoker, Sore throat, Generally unsteady, Dental abscess, Diabetes mellitus with chronic kidney disease End: 13-Aug-2018 11:53 [facility] Office Visit On: 09-Jul-2018 11:04 Encounter Reason: Follow up tests - Date: (06/2018 blood work).Encounter Diagnosis: Nonsmoker, BMI 29.0-29.9,adult, History of CHF (congestive heart failure), Leg weakness, Diabetes mellitus with chronic kidney disease, Seizure End: 09-Jul-2018 12:04 [facility] Lab Order On: 08-Jul-2018 10:37 Encounter Diagnosis: CKD (chronic kidney disease), stage 3 (moderate) End: 08-Jul-2018 10:38 [facility] Phone Encounter On: 10-Jun-2018 11:46 Encounter Diagnosis: Autonomic instability, Leg weakness End: 10-Jun-2018 12:05 [facility] Office Visit On: 28-May-2018 14:49 Encounter Reason: Follow up acute care visit - The patient feels the same. Patient has been compliant with instructions. Current medication use: compliant with dosing regimen. Patient sleeps 7 hours per night. Impact of End: 28-May-2018 15:43 disease: emotional impact-mild. Nutrition: balanced diet and supplemental vitamins. The medical issues the patient is following up for include other (RLS, weakness, lower extrem. edema).Encounter Diagnosis: BMI 30.0-30.9,adult, History of tobacco abuse, Generally unsteady, Hyperplasia, prostate, Vitamin D insufficiency, RLS (restless legs syndrome), Testicular hypofunction, Hypertension, Coronary artery disease, Peripheral vascular disease, Obesity, Cardiomyopathy, Diabetes mellitus with chronic kidney disease, Mixed hyperlipidemia, Shortness of breath, Macrocytosis, COPD (chronic obstructive pulmonary disease), Hypothyroid, Allergic rhinitis, Depression, reactive, Hypomagnesemia, Cardiac dysrhythmia, Subdural hemorrhage, Memory loss, Sensorineural hearing loss (SNHL) of both ears, History of CHF (congestive heart failure), Hypotension, postural, Obstructive sleep apnea, adult, Abnormal platelet aggregation, Erectile dysfunction, Seizure, CKD (chronic kidney disease), stage 3 (moderate), BMI 29.0-29.9,adult, Abnormal laboratory test, Nonsmoker, Thrombocytopenia [facility] Phone Encounter On: 25-May-2018 18:55 Encounter Diagnosis: History of tobacco abuse End: 25-May-2018 19:05 [facility] Office Visit On: 02-May-2018 9:34 Encounter Diagnosis: Constipation, Hypotension, postural, History of CHF (congestive heart failure) End: 02-May-2018 9:59 [facility] Office Visit On: 30-Apr-2018 10:15 [facility] End: 03-May-2018 9:19 Annotation/Addendum On: 30-Apr-2018 10:07 Encounter Diagnosis: CKD (chronic kidney disease), stage 3 (moderate) End: 30-Apr-2018 10:09 [facility] Lab Order On: 26-Apr-2018 8:32 Encounter Diagnosis: CKD (chronic kidney disease), stage 3 (moderate) End: 26-Apr-2018 8:35 [facility] Lab Order On: 26-Apr-2018 7:11 Encounter Diagnosis: Abnormal platelet aggregation End: 26-Apr-2018 7:21 [facility] Office Visit On: 25-Apr-2018 11:02 Encounter Diagnosis: BMI 30.0-30.9,adult, History of tobacco abuse, Dizziness, Hypotension, postural, Dehydration End: 26-Apr-2018 7:56 [facility] Lab Order On: 18-Apr-2018 15:19 Encounter Diagnosis: CKD (chronic kidney disease), stage 3 (moderate) End: 18-Apr-2018 15:25 [facility] Office Visit On: 02-Apr-2018 13:12 Encounter Reason: Follow up for chronic medical issues - The patient feels well with minor complaints and has decreased energy level. Patient has been compliant with instructions. Current medication use: no side effects End: 04-Apr-2018 8:53 and compliant with dosing regimen. Patient sleeps 8 hours per night. Impact of disease: emotional impact-mild. Nutrition: balanced diet and supplemental vitamins. The medical issues the patient is follo wing up for include blood sugar issues, cardiac issues, high blood pressure, high cholesterol, hypothyroid, kidney problems, other (RLS, vitamin d def., macrocytosis, XOCHITL, testicular hypofunction, seziu re, hearing loss) and peripheral vascular disease.Encounter Diagnosis: COPD (chronic obstructive pulmonary disease), Cardiomyopathy, Diabetes mellitus with chronic kidney disease, Hypothyroid, Mixed hyperlipidemia, CKD (chronic kidney disease), stage 3 (moderate), History of tobacco abuse, BMI 30.0-30.9,adult, RLS (restless legs syndrome), Macrocytosis, Vitamin D insufficiency, Hyperplasia, prostate, Obesity, Peripheral vascular disease, Testicular hypofunction , Coronary artery disease, Hypertension, Erectile dysfunction, Cardiac dysrhythmia, Hypomagnesemia, Seizure, Memory loss, Obstructive sleep apnea, adult, History of CHF (congestive heart failure), Abnormal laboratory test, NH (myocardial infarction) , Sensorineural hearing loss (SNHL) of both ears, Vasovagal near syncope, Subdural hemorrhage, Anxiety, Nonsmoker, Shortness of breath, Allergic rhinitis, BMI 29.0-29.9,adult, Dehydration, Cough, Depression, reactive [facility] Office Visit On: 31-Jan-2018 12:35 Encounter Reason: Follow up hospital - Reason for ER visit: note: (SOB cough). The patient feels well with minor complaints, has decreased energy level and is sleeping well. Patient has been compliant with instructions. End: 31-Jan-2018 13:30 Current medication use: no side effects and compliant with dosing regimen. Patient sleeps 7 hours per night. Impact of disease: emotional impact-mild. Nutrition: balanced diet and supplemental vitamins.Encounter Diagnosis: BMI 28.0-28.9,adult, History of tobacco abuse, Diabetes mellitus with chronic kidney disease, History of CHF (congestive heart failure), Cardiomyopathy, COPD (chronic obstructive pulmonary disease) [facility] Phone Encounter On: 28-Jan-2018 10:35 Encounter Diagnosis: Unspecified Diagnosis End: 28-Jan-2018 10:38 [facility] Phone Encounter On: 22-Jan-2018 9:35 Encounter Diagnosis: COPD (chronic obstructive pulmonary disease) End: 22-Jan-2018 9:40 [facility] Phone Encounter On: 21-Jan-2018 13:56 Encounter Diagnosis: Diabetes mellitus with chronic kidney disease, Bronchitis, Anxiety End: 21-Jan-2018 14:07 [facility] Office Visit On: 18-Jan-2018 10:17 Encounter Diagnosis: Cough, History of CHF (congestive heart failure), Encounter for health maintenance examination with abnormal findings, Dehydration End: 18-Jan-2018 14:43 [facility] Office Visit On: 14-Jan-2018 12:51 Encounter Reason: Follow up acute care visit - The patient feels the same. Patient has been compliant with instructions. Current medication use: no side effects and compliant with dosing regimen. Patient sleeps 7 hours p End: 14-Jan-2018 21:54 er night. Impact of disease: emotional impact-mild. Nutrition: balanced diet and supplemental vitamins. The medical issues the patient is following up for include URI.Encounter Diagnosis: BMI 29.0-29.9,adult, Cough, History of tobacco abuse [facility] Office Visit On: 09-Jan-2018 10:50 Encounter Reason: Cold Symptoms - Symptoms include nasal congestion, runny nose, sore throat, productive cough (yellow) and facial pressure. Onset was day(s) ago. The patient describes this as worsening. Associated sympt End: 10-Jan-2018 19:29 oms include wheezing and shortness of breath, while associated symptoms do not include ear pain, nausea, vomiting, diarrhea, fever or chills. Current treatment includes non-prescription cold medication. Note for Cold symptoms: symptoms progressing into chest- afraid getting pneumonia- Encounter Diagnosis: Nonsmoker, BMI 29.0-29.9,adult, Cough, Shortness of breath [facility] Office Visit On: 25-Dec-2017 13:07 Encounter Reason: Follow up for chronic medical issues - The patient feels well with minor complaints and has decreased energy level. Patient has been compliant with instructions. Current medication use: no side effects End: 25-Dec-2017 13:52 and compliant with dosing regimen. Patient sleeps 10 hours per night. Impact of disease: emotional impact-mild. Nutrition: balanced diet and supplemental vitamins. The medical issues the patient is foll owing up for include blood sugar issues, cardiac issues, high blood pressure, high cholesterol, hypothyroid, kidney problems, other (RLS, vitamin d def., macrocytosis, XOCHITL, testicular hypofunction, sezi ure, hearing loss) and peripheral vascular disease.Encounter Diagnosis: BMI 29.0- 29.9,adult, History of tobacco abuse, Diabetes mellitus with chronic kidney disease, Macrocytosis, Seizure, Vitamin D insufficiency, Obesity, Coronary artery disease, Hypomagnesemia, Allergic rhinitis (477.9), Hypertension, Allergic rhinitis, Benign prostatic hypertrophy without lower urinary tract symptoms, Hyperplasia, prostate, Testicular hypofunction, Cardiomyopathy, Cardiac dysrhythmia, Mixed hyperlipidemia, Erectile dysfunction, Memory loss, Subdural hemorrhage, Nonsmoker, NH (myocardial infarction), Peripheral vascular disease, CKD (chronic kidney disease), stage 3 (moderate), Vasovagal near syncope, Obstructive sleep apnea, adult, RLS (restless legs syndrome), Sensorineural hearing loss (SNHL) of both ears, Hypothyroid, History of CHF (congestive heart failure), Abnormal laboratory test [facility] Office Visit On: 16-Nov-2017 10:36 Encounter Reason: Follow up acute care visit - The patient feeling better since last seen and improving. Patient has been compliant with instructions. Current medication use: no side effects, compliant with dosing regime End: 16-Nov-2017 11:13 n and considered effective by patient. Patient sleeps 7 hours per night. Impact of disease: emotional impact-moderate. Nutrition: balanced diet and supplemental vitamins. The medical issues the patient is following up for include URI. Encounter Diagnosis: BMI 29.0-29.9,adult, Cough (786.2), Nonsmoker, Acute delirium [facility] Office Visit On: 28-Sep-2017 14:34 Encounter Reason: Follow up for chronic medical issues - The patient feels well with minor complaints and has decreased energy level. Patient has been compliant with instructions. Current medication use: no side effects End: 28-Sep-2017 16:08 and compliant with dosing regimen. Patient sleeps 7 hours per night. Impact of disease: emotional impact-mild. Nutrition: balanced diet and supplemental vitamins. The medical issues the patient is follo wing up for include blood sugar issues, cardiac issues, high blood pressure, high cholesterol, hypothyroid, kidney problems, other (seziure, XOCHITL, hx. prostate cancer) and peripheral vascular disease.Encounter Diagnosis: BMI 29.0-29.9,adult, History of tobacco abuse, Diabetes mellitus with chronic kidney disease, Allergic rhinitis (477.9), Hypomagnesemia, RLS (restless legs syndrome), Obstructive sleep apnea, adult, Coronary artery disease, Mixed hyperlipidemia, IT band syndrome, right, Cardiac dysrhythmia, Cardiomyopathy, Hypertension, Hyperplasia, prostate, Testicular hypofunction, Macrocytosis, Obesity, Vitamin D insufficiency, Seizure, Nonsmoker, CKD (chronic kidney disease), stage 3 (moderate), Subdural hemorrhage, Hypothyroid , History of CHF (congestive heart failure), Sensorineural hearing loss (SNHL) of both ears, Memory loss, Abnormal laboratory test, NH (myocardial infarction), Erectile dysfunction, Peripheral vascular disease, Change in vision, Acute back pain, unspecified back location, unspecified back pain laterality, BMI 31.0-31.9,adult, Leg swelling, BMI 28.0-28.9,adult, Vasovagal near syncope, Right lower lobe pneumonia [facility] Lab Order On: 30-Aug-2017 16:04 Encounter Diagnosis: CKD (chronic kidney disease), stage 3 (moderate) End: 30-Aug-2017 16:06 [facility] Lab Order On: 30-Aug-2017 14:03 Encounter Diagnosis: CKD (chronic kidney disease), stage 3 (moderate) End: 30-Aug-2017 14:41 [facility] Office Visit On: 24-Aug-2017 9:51 Encounter Reason: Transition into care - The patient is transitioning into care from a hospital., [ADDITIONAL REASON] Follow up hospital - Reason for ER visit: note: (brain bleed). The patient feels End: 24-Aug-2017 11:08 well with minor complaints, has decreased energy level and is sleeping well. Patient has been compliant with instructions. Current medication use: no side effects and compliant with dosing regimen. The hospital results of the CT scan of brain and other were Encounter Diagnosis: BMI 28.0-28.9,adult, Nonsmoker, Seizure, Vitamin D insufficiency, Diabetes mellitus with chronic kidney disease, Hypothyroid, Subdural hemorrhage [facility] Phone Encounter On: 17-Aug-2017 14:35 Encounter Diagnosis: Seizure End: 17-Aug-2017 14:59 [facility] Office Visit On: 25-Jun-2017 11:40 Encounter Diagnosis: History of CHF (congestive heart failure), Obstructive sleep apnea, adult, Cardiac dysrhythmia, Cardiomyopathy, Hypertension, History of tobacco abuse, RLS (restless legs syndrome), Allergic rhinitis (477.9), Hypomagnesemia, End: 26-Jun-2017 7:42 Pseudoaneurysm following procedure, Coronary artery disease, Mixed hyperlipidemia, CKD (chronic kidney disease), stage 3 (moderate), Macrocytosis, Peripheral vascular disease, Erectile dysfunction, Hypothyroid, Current drinker of alcohol, Diabetes mellitus with chronic kidney disease, NH (myocardial infarction), Uncoordinated movements, Memory loss, Obesity, Hyperplasia, prostate, Testicular hypofunction, BMI 30.0-30.9,adult, Encounter for health maintenance examination with abnormal findings, Screening for prostate cancer, Abnormal laboratory test, Vitamin D insufficiency, Sensorineural hearing loss (SNHL) of both ears [facility] Office Visit On: 11-Jun-2017 10:17 Encounter Reason: Follow up acute care visit - The patient feels the same. Patient has been compliant with instructions. Current medication use: no side effects and compliant with dosing regimen. Note for Follow up acut End: 11-Jun-2017 10:45 e care visit: he is feeling alot rob coughing less and no fever not sob and hasnt been checking sugars- didnt have any strips- she gave him monitor-Encounter Diagnosis: Right lower lobe pneumonia, Diabetes mellitus with chronic kidney disease [facility] Lab Order On: 08-Jun-2017 11:17 Encounter Diagnosis: Memory loss End: 08-Jun-2017 11:25 [facility] Office Visit On: 06-Jun-2017 10:59 Encounter Reason: Follow up acute care visit - The patient feeling better since last seen (except the cough continues with white to light yellow sputum. Coughs a lot throughout the day. Dr. Thornton doesnt want to do the co End: 06-Jun-2017 11:50 lonoscopy until he is clear of pneumonia.) and has decreased energy level. Patient has been compliant with instructions. Current medication use: no side effects and compliant with dosing regimen. Patien t sleeps 8 hours per night. The medical issues the patient is following up for include All identified problems below and URI. Note for Follow up acute care visit: did improve cough still there- occ ju nk cough- but often white not sob- can feel still something right lower not tight up- no fever - weak and fatigue supposed to have colonosocpy Moniecounter Diagnosis: Right lower lobe pneumonia, BMI 29.0-29.9,adult, History of tobacco abuse [facility] Office Visit On: 02-May-2017 11:22 Encounter Reason: Cough - The onset of the cough has been 3 days ago. The cough is characterized as productive of mucoid sputum and productive of mucopurulent sputum. The amount of sputum produced is scanty. The cough o End: 02-May-2017 11:50 ccurs all the time. The symptoms have been associated with hoarseness, runny nose, sore throat and wheezing, while the symptoms have not been associated with dyspnea, fever or headache. the color of the sputum is clear and yellowish. Note for Cough : he is on pen vk for tooth that infected - cough started sunday - exposed to ??pnemonia- no fever- no change in breathing- wheezing though- cxr noted ok in mayEncounter Diagnosis: BMI 29.0-29.9,adult , History of tobacco abuse, Right lower lobe pneumonia [facility] Historical Summary On: 18-Apr-2017 9:33 Encounter Diagnosis: NH (myocardial infarction) End: 18-Apr-2017 9:36 [facility] Office Visit On: 12-Apr-2017 7:59 Encounter Reason: Follow up acute care visit - The patient feeling better since last seen and improving. Patient has been compliant with instructions. Current medication use: no side effects and compliant with dosing reg End: 12-Apr-2017 8:52 imen. Patient sleeps 8 hours per night. Nutrition: balanced diet.Encounter Diagnosis: BMI 30.0-30.9,adult, Current drinker of alcohol, Cardiac dysrhythmia, Acute back pain, unspecified back location, unspecified back pain laterality, IT band syndrome, right, History of CHF (congestive heart failure), Obstructive sleep apnea, adult, Cardiomyopathy, Vasovagal near syncope, Diabetes mellitus with chronic kidney disease, Hypomagnesemia, Coronary artery disease, Mixed hyperlipidemia, Peripheral vascular disease, CKD (chronic kidney disease), stage 3 (moderate), Benign prostatic hypertrophy without lower urinary tract symptoms, Pseudoaneurysm following procedure, Obesity, Testicular hypofunction, History of tobacco abuse, Change in vision, RLS (restless legs syndrome), Uncoordinated movements, Hyperplasia, prostate, Macrocytosis, Hypertension, NH (myocardial infarction), Hypothyroid, Erectile dysfunction, Allergic rhinitis, BMI 31.0-31.9,adult, BMI 29.0-29.9,adult, Leg swelling, Allergic rhinitis (477.9) [facility] Office Visit On: 22-Mar-2017 8:49 Encounter Reason: Follow up hospital - Reason for ER visit: note: (vertigo ). The patient feels well with minor complaints, has good energy level and is sleeping well. Patient has been compliant with instructions. Curren End: 22-Mar-2017 9:51 t medication use: no side effects, compliant with dosing regimen and considered effective by patient. Patient sleeps 7 hours per night. Impact of disease: emotional impact-mild. Nutrition: balanced diet and supplemental vitamins. Hospital procedures performed were other (echo, CTA ).Encounter Diagnosis: BMI 30.0-30.9,adult, Dizziness, RLS (restless legs syndrome), Change in vision, Uncoordinated movements, Current drinker of alcohol [facility] Office Visit On: 22-Feb-2017 9:38 Encounter Reason: Follow up acute care visit - The patient feeling better since last seen and improving. Patient has been compliant with instructions. Current medication use: no side effects and compliant with dosing reg End: 22-Feb-2017 14:42 imen. Patient sleeps 7 hours per night. Impact of disease: emotional impact-mild. Nutrition: balanced diet and supplemental vitamins. The medical issues the patient is following up for include other (fu after cardiac procedure )., [ADDITIONAL REASON] Annual Medicare Exam - Yes the patient did have () a mini mental status exam done today. The activities of daily living the patient needs help with are none. The patient has dr rossi in past 6 months and put handrails in bathroom, but the patient has not had fecal incontinence, had urinary incontinence, missed or ran out of medications to soon, fallen in the past 6 months, altagracia en lost, has a medalert necklace or bracelet or put area rugs through house. The patient has completed the following preventative measures: PSA testing and colonoscopy (10 years ago). The patient does h ave durable power of director recreation and living will. The patient has noticed thinking most people are better off than them (due to heart concerns) and nothing from the geriatic depression scale. Other provide rs contributing to the patient's care are sewer separation designer (fritz) and other: (Divina, kidney). Encounter Diagnosis: BMI 30.0-30.9,adult, Hyperplasia, prostate, NH (myocardial infarction), Allergic rhinitis, Macrocytosis, Cardiomyopathy, Obstructive sleep apnea, adult, Hypertension, RLS (restless legs syndrome), Pseudoaneurysm following procedure, History of tobacco abuse, Obesity, Erectile dysfunction, Hypothyroid, Testicular hypofunction, History of CHF (congestive heart failure), Vasovagal near syncope, Benign prostatic hypertrophy without lower urinary tract symptoms, CKD (chronic kidney disease), stage 3 (moderate), Cardiac dysrhythmia, Peripheral vascular disease, Mixed hyperlipidemia, Coronary artery disease, Hypomagnesemia, Diabetes mellitus with chronic kidney disease, Leg swelling, BMI 29.0-29.9,adult, Acute back pain, unspecified back location, unspecified back pain laterality, BMI 31.0-31.9,adult, Allergic rhinitis (477.9), IT band syndrome, right, Encounter for health maintenance examination with abnormal findings, Screening for prostate cancer [facility] Lab Order On: 11-Jan-2017 8:17 Encounter Diagnosis: CKD (chronic kidney disease), stage 3 (moderate) End: 11-Jan-2017 8:19 [facility] Office Visit On: 09-Jan-2017 10:15 Encounter Reason: Follow up hospital - Reason for ER visit: note: (irregular heartbeat ). The patient feels well with minor complaints and has decreased energy level. Current medication use: no side effects and compliant End: 09-Jan-2017 11:32 with dosing regimen. Patient sleeps 7 hours per night. Impact of disease: emotional impact-mild. Nutrition: balanced diet and supplemental vitamins. Hospital procedures performed were other (EP study ).Encounter Diagnosis: BMI 29.0-29.9,adult, History of tobacco abuse, Constipation, Pseudoaneurysm following procedure, RLS (restless legs syndrome), Obesity, Testicular hypofunction, Hypothyroid, Erectile dysfunction, Allergic rhinitis, NH (myocardial infarction), Hyperplasia, prostate, Macrocytosis, Gum hyperplasia, CKD (chronic kidney disease), stage 3 (moderate), Hypertension, Obstructive sleep apnea, adult, Cardiomyopathy, History of CHF (congestive heart failure), Coronary artery disease, Mixed hyperlipidemia, Cardiac dysrhythmia, Diabetes mellitus with chronic kidney disease, Hypomagnesemia, Peripheral vascular disease, Benign prostatic hypertrophy without lower urinary tract symptoms, BMI 31.0-31.9,adult, Allergic rhinitis (477.9), Leg swelling, Acute back pain, unspecified back location, unspecified back pain laterality, Vasovagal near syncope [facility] Historical Summary On: 08-Jan-2017 16:08 Encounter Diagnosis: Mixed hyperlipidemia, Anemia, unspecified, Coronary artery disease End: 08-Jan-2017 16:17 [facility] Office Visit On: 09-Oct-2016 13:54 Encounter Reason: Sinusitis/ - The duration of the symptoms are 1 week The course has been gradually worsening. The sinusitis/ has no relieving factors. Associated features include The symptoms have been associated with End: 09-Oct-2016 15:02 cough, nasal discharge/stuffy nose and sinus pain. Note for Sinusitis/: for 10 days using mucinex down into lungs yellow mucous now. sob and some wheeze. use robitussin.Encounter Diagnosis: History of tobacco abuse, Acute bacterial bronchitis [facility] Phone Encounter On: 06-Sep-2016 15:13 Encounter Diagnosis: CKD (chronic kidney disease), stage 3 (moderate) End: 06-Sep-2016 16:07 [facility] Office Visit On: 29-Aug-2016 15:14 Encounter Diagnosis: Rash (782.1), History of tobacco abuse End: 29-Aug-2016 15:36 [facility] Refill Request On: 10-Jul-2016 12:46 Encounter Diagnosis: Cardiomyopathy End: 10-Jul-2016 12:47 [facility] Office Visit On: 16-Jun-2016 7:39 Encounter Diagnosis: Well adult exam, History of tobacco abuse, Mixed hyperlipidemia, Erectile dysfunction, Hypertension, Hyperplasia, prostate, Obstructive sleep apnea, adult, Hypothyroid, Hypomagnesemia, Peripheral vascular disease, End: 19-Jun-2016 8:10 Chronic kidney disease, stage II (mild), Allergic rhinitis, Cardiomyopathy, Cardiac dysrhythmia, Diabetes mellitus with chronic kidney disease, Coronary artery disease, History of CHF (congestive heart failure), Obesity, RLS (restless legs syndrome) , NH (myocardial infarction), Testicular hypofunction, Gum hyperplasia, BMI 31.0- 31.9,adult, Allergic rhinitis (477.9), Vasovagal near syncope, Macrocytosis, Leg swelling, Acute back pain, unspecified back location, unspecified back pain laterality, Benign prostatic hypertrophy without lower urinary tract symptoms [facility] Lab Order On: 29-May-2016 15:11 Encounter Diagnosis: Screening for prostate cancer End: 29-May-2016 15:13 [facility] Phone Encounter On: 21-Mar-2016 16:04 Encounter Diagnosis: Diabetes mellitus with chronic kidney disease End: 21-Mar-2016 16:05 [facility] Office Visit On: 17-Mar-2016 12:04 Encounter Reason: Follow up hospital - Reason for ER visit: note: (had NH in [place] ). The patient feels well with no complaints and has good energy level. Patient has been compliant with instructions. Current medicati End: 17-Mar-2016 13:29 on use: no side effects, compliant with dosing regimen and considered effective by patient. Patient sleeps 7 hours per night. Impact of disease: emotional impact-mild. Nutrition: balanced diet and suppl emental vitamins. Hospital procedures performed were heart catherization.Encounter Diagnosis: NH (myocardial infarction), History of tobacco abuse, Cardiac dysrhythmia, History of CHF (congestive heart failure), Cardiomyopathy, Coronary artery disease, Diabetes mellitus with chronic kidney disease [facility] Office Visit On: 18-Feb-2016 9:20 Encounter Reason: Follow up acute care visit - The patient feeling better since last seen (Does still have cough, but improving. ). Patient has been compliant with instructions. Current medication use: no side effects. P End: 18-Feb-2016 10:00 atient sleeps 8 hours per night.Encounter Diagnosis: SOB (shortness of breath) on exertion, URI (upper respiratory infection) [facility] Office Visit On: 15-Feb-2016 9:43 Encounter Reason: Cough - Symptoms include cough, dyspnea, wheezing and fever. The cough is described as productive (yellow). Cough onset was sudden 2 week(s) ago. There is no known event that preceded symptom onset. The End: 15-Feb-2016 10:46 cough occurs constantly. The episodes last for 14 days. Symptoms are described as moderate in severity and worsening. Symptoms are exacerbated by lying down. Symptoms are not relieved by air conditioni ng, humidified air, warm drinks, warm weather, avoiding irritants, resting, lying down, sitting up, cough drops, cough medicine, acetaminophen, nonsteroidal anti-inflammatory drugs or inhaled bronchodil ator use. Associated symptoms include postnasal drainage. Current treatment includes non-opioid cough medications and mucolytics. By report there is good compliance with treatment and poor symptom contr ol. Pertinent medical history includes congestive heart failure. Risk factors do not include exposure to an ill person, air pollution exposure, passive smoke exposure, smoking, pets in the home, GIOVANNI inh ibitor use, alcohol abuse, drug abuse, impaired immunity or missed immunizations. Previous presentation included a cough, a runny nose and dyspnea.Encounter Diagnosis: Cough (786.2), Wheeze, Gum hyperplasia, Leg swelling, Allergic rhinitis, History of CHF (congestive heart failure) [facility] Office Visit On: 28-Jan-2016 10:52 Encounter Reason: Follow up for chronic medical issues - The patient feels well with minor complaints and has good energy level. Patient has been compliant with instructions. Current medication use: no side effects, comp End: 28-Jan-2016 12:02 liant with dosing regimen and considered effective by patient. Patient sleeps 7 hours per night. Impact of disease: emotional impact-mild. Nutrition: balanced diet and supplemental vitamins. The medical issues the patient is following up for include blood sugar issues, cardiac issues, high blood pressure, high cholesterol, hypothyroid, other (XOCHITL, erectile dysfunction, obesity, RLS, testicular hypofunction ) and peripheral vascular disease. Encounter Diagnosis: Diabetes mellitus with chronic kidney disease, RLS (restless legs syndrome), Allergic rhinitis (477.9), Hypomagnesemia, Hyperplasia, prostate, Macrocytosis, Cardiomyopathy, Coronary artery disease, Hypertension, Hypothyroid, Mixed hyperlipidemia, Chronic kidney disease, stage II (mild), Obesity, Vasovagal near syncope, Peripheral vascular disease, Testicular hypofunction, Cardiac dysrhythmia, History of tobacco abuse, Obstructive sleep apnea, adult, Erectile dysfunction , BMI 31.0-31.9,adult [facility] Office Visit On: 26-Oct-2015 13:56 Encounter Reason: Follow up for chronic medical issues - The patient feels well with minor complaints (edema), has good energy level (improving) and is sleeping well. Patient has been compliant with instructions. Current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 patient feels well with minor complaints, has good energy level and is sleeping well. Patient has been compliant with instructions. Current medication use: no End: 05-Feb-2012 11:17 side effects, compliant with dosing regimen and considered effective by patient. Patient sleeps 7 hours per night. Impact of disease: emotional impact-mild. Nutrition: balanced diet and supplemental vit amins. 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 The patient feels well with minor complaints and has decreased energy level. Patient has been compliant with instructions. Current med End: 24-Nov-2011 15:58 ication use: no side effects, compliant with dosing regimen and considered effective by patient. Patient sleeps 7 hours per night. Impact of disease: emotional impact-mild. Nutrition: balanced diet and supplemental vitamins.Encounter Diagnosis: Anemia(285.9), Constipation(564.00), Diabetes, Type II, controlled (250.00), CORNS AND CALLOSITIES (700.), Rash (782.1) [facility] Office Visit On: 02-Nov-2011 13:05 Encounter Reason: Follow up for chronic medical issues - The patient feels well with minor complaints, has good energy level and is sleeping well. Patient has been compliant with instructions. Current medication use: no End: 02-Nov-2011 13:52 side effects, compliant with dosing regimen and considered effective by patient. Patient sleeps 7 hours per night. Impact of disease: emotional impact-mild. Nutrition: balanced diet and supplemental vit amins. The medical issues the patient is following up for include blood sugar issues, cardiac issues, high blood pressure, high cholesterol, kidney problems and other (XOCHITL, testicular hypofunction, anemia, RLS, hyperthyroidism ).Encounter Diagnosis: Diabetes, Type II, controlled (250.00), Hypertension 401.1 (Renamed from Hypertension (401.0)), Coronary Artery Disease (414.00), Pelvis/Thigh/Hip Pain (719.45), Cardiomyopathies (425.4), GERD (530.81), Chronic Kidney Disease, Stage II (Mild)(585.2) , Well Male Exam (V70.0) [facility] Lab Order On: 31-Oct-2011 9:00 Encounter Diagnosis: Diabetes, Type II, controlled (250.00), Well Male Exam (V70.0) End: 31-Oct-2011 9:02 [facility] Office Visit On: 17-Oct-2011 13:50 Encounter Reason: Sinusitis/ - The duration of the symptoms are 3 days The course has been worsening. The sinusitis/ has no relieving factors. Associated features include The symptoms have been associated with cough (pro End: 17-Oct-2011 14:15 ductive of green sputum), nasal discharge/stuffy nose, sinus pain and sore throat, while the symptoms have not been associated with ear pain, swollen lymph glands or teeth pain. No previous evaluations were reported.Encounter Diagnosis: Cough (786.2), Wheezing (786.07), Acute sinusitis, unspecified (461.9) [facility] Office Visit On: 15-Aug-2011 8:29 Encounter Reason: Follow up for chronic medical issues - The patient feels well with minor complaints, has good energy level and is sleeping well (with cpap ). Patient has been compliant with instructions. Current medica End: 15-Aug-2011 8:59 tion use: no side effects, compliant with dosing regimen and considered effective by patient. Patient sleeps 8 hours per night. Impact of disease: emotional impact-mild. Nutrition: balanced diet and sup plemental vitamins. The medical issues the patient is following up for include blood sugar issues, cardiac issues, high blood pressure, high cholesterol, hypothyroid, kidney problems, other (testicular hypofunction, RLS, XOCHITL ) and peripheral vascular disease.Encounter Diagnosis: Diabetes, Type II, controlled (250.00), Hyperlipidemia, Mixed (272.2), Pelvis/Thigh/Hip Pain (719.45), Coronary Artery Disease (414.00), Cramp in limb (729.82), Hypertension 401.1 (Renamed from Hypertension (401.0)), Well Male Exam (V70.0) [facility] Erroneous Entry On: 09-Aug-2011 8:19 Encounter Diagnosis: Hyperlipidemia, Mixed (272.2) End: 09-Aug-2011 8:24 [facility] Office Visit On: 08-Aug-2011 15:02 Encounter Reason: Injections - The medication the patient is here to receive is other (flu shot).Encounter Diagnosis: Need for prophylactic vaccination and inoculation against influenza (V04.81) End: 10-Aug-2011 14:20 [facility] Office Visit On: 26-Jun-2011 11:21 Encounter Reason: Follow up acute care visit - The patient feeling better since last seen and improving. Patient has been compliant with instructions. Current medication use: no side effects, compliant with dosing regime End: 26-Jun-2011 12:05 n and considered effective by patient. Patient sleeps 8 hours per night. Impact of disease: emotional impact-mild. Nutrition: balanced diet and supplemental vitamins. The medical issues the patient is following up for include blood sugar issues. Encounter Diagnosis: Diabetes, Type II, controlled (250.00) [facility] Office Visit On: 09-Jun-2011 12:59 Encounter Reason: Diabetes Type II, Follow Up - Symptoms include fatigue and change in vision, while symptoms do not include increased appetite. Onset was 7 day(s) ago.Encounter Diagnosis: Unspecified Diagnosis, Diabetes, Type II, controlled (250.00) End: 09-Jun-2011 13:45 , Hyperlipidemia, Mixed (272.2) [facility] Office Visit On: 16-May-2011 8:13 Encounter Diagnosis: Diabetes, Type II, controlled (250.00), Restless legs syndrome (RLS) (333.94), Obstructive sleep apnea (327.23), Hypertension 401.1 (Renamed from Hypertension (401.0)), Cardiomyopathies (425.4) End: 16-May-2011 8:37 [facility] Office Visit On: 07-Apr-2011 8:30 Encounter Reason: Follow up hospital - Reason for ER visit: heart attack. The patient feels well with no complaints, has good energy level and is sleeping well. Patient has been compliant with instructions. Current medic End: 07-Apr-2011 9:11 ation use: no side effects and compliant with dosing regimen. Patient sleeps 7 hours per night. Impact of disease: emotional impact-mild. Nutrition: balanced diet and supplemental vitamins. Hospital procedures performed were heart catherization. Encounter Diagnosis: Coronary Artery Disease (414.00), AMI NEC, SUBSEQUENT EPISODE (410.82), Cardiomyopathies (425.4), Chronic Kidney Disease, Stage II (Mild)(585.2), Diabetes, Type II, controlled (250.00), Pelvis/Thigh/Hip Pain (719.45) [facility] Office Visit On: 09-Mar-2011 11:49 Encounter Reason: Hip Pain - The onset of the hip pain has been gradual and has been occurring in a persistent pattern for 6 months. The course has been gradually worsening. The hip pain is described as a moderate sharp End: 09-Mar-2011 12:54 stabbing (dull ache sometimes also ). The hip pain is described as being located in the groin (right ), hip (right ) and buttocks (right ). The pain is aggravated by any movement. There are no relievi ng factors. The symptoms have been associated with limping, stiffness, decreased range of motion, difficulty arising from chair, difficulty arising from a kneeling position and difficulty donning shoes and socks. Previous diagnostic tests have included plain radiographs.Encounter Diagnosis: Pelvis/Thigh/Hip Pain (719.45), Hyperlipidemia, Mixed (272.2) [facility] Office Visit On: 16-Jan-2011 8:16 Encounter Reason: Cough - The onset of the cough has been acute and has been occurring in a persistent pattern for 4 days. The course has been constant. The cough is characterized as productive of mucoid sputum. The amou End: 16-Jan-2011 8:42 nt of sputum produced is scanty. The cough occurs all the time. The symptoms have been associated with headache, hoarseness and runny nose. Note for Cough: yellow sputum. Encounter Diagnosis: BRONCHITIS, NOT SPECIFIED ACUTE OR CHRONIC (490.) [facility] Annotation/Addendum On: 13-Oct-2010 9:31 [facility] End: 17-Oct-2010 21:25 Office Visit On: 13-Oct-2010 8:50 Encounter Diagnosis: Diabetes, Type II, controlled (250.00), Wheezing (786.07), Allergic rhinitis (477.9), Cough (786.2), Pelvis/Thigh/Hip Pain (719.45) End: 13-Oct-2010 9:29 [facility] Phone Encounter On: 15-Sep-2010 13:32 [facility] End: 15-Sep-2010 13:32 Office Visit On: 05-Sep-2010 9:28 Encounter Reason: Injections - The medication the patient is here to receive is other (flu).Encounter Diagnosis: Need for prophylactic vaccination and inoculation against influenza (V04.81) End: 05-Sep-2010 10:12 [facility] Office Visit On: 14-Jul-2010 8:47 Encounter Reason: Follow up for chronic medical issues - The patient feels well with minor complaints (just a little coughy) and is sleeping poorly (RLS). Patient has been compliant with instructions. Current medicatio End: 14-Jul-2010 9:34 n use: no side effects. Patient sleeps 6 hours per night. Nutrition: balanced diet and supplemental vitamins. The medical issues the patient is following up for include blood sugar issues ,cardiac issue s ,high blood pressure and high cholesterol. blood pressure range : ,evening sugars : and weight :. 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), Diverticulosis (562.10), Hyposmolality and/or hyponatremia (276.1), Peripheral vascular disease (443.9), Cardiac dysrhythmia, unspecified (427.9), GERD (530.81) , Obesity (278.00), Coronary Artery Disease (414.00), HYDROCELE NOS (603.9), Cystitis,Acute (595.0), Cramp in limb (729.82), Other testicular dysfunction (257.8), HERNIA, UNILATERAL INGUINAL, W/O OBST/GNGR (550.90), Well Male, Allergic rhinitis (477.9), Obstructive sleep apnea (327.23), Hyperthyroidism (242.90), Cardiomyopathies (425.4), DIABETIC NEPHROPATHY (250.4), Chronic Kidney Disease, Stage II (Mild)(585.2), Diabetic nephropathy(583.81) [facility] Office Visit On: 23-May-2010 8:48 Encounter Reason: Follow up, Laboratory Test Results - Lab results: abnormal blood chemistry. Date: (05-20-10). Current symptoms/reason for visit include/s Symptoms include other (intermittent testicular pain). Encounter Diagnosis: End: 23-May-2010 9:09 Abdominal Pain,RLQ (789.03), Renal insufficiency (593.9) [facility] Office Visit On: 12-May-2010 9:01 Encounter Reason: Follow up for chronic medical issues - The patient feels well with minor complaints (still problems with the hernia and leg cramps also have hand and foot cramps). Patient has been compliant with instru End: 12-May-2010 10:03 ctions. Current medication use: no side effects. Patient sleeps 6 hours per night. Nutrition: balanced diet. , [ADDITIONAL REASON] Follow up, Diagnostic Procedure Results - Diagnostic tests include CT scan (abd/pelvis). Date: (05/09). , [ADDITIONAL REASON] Follow up, Laboratory Test Results - Date: (05/10). Encounter Diagnosis: Diabetes, Type II, controlled (250.00), HYDROCELE NOS (603.9), Abdominal Pain,RLQ (789.03), Renal insufficiency (593.9) [facility] Annotation/Addendum On: 10-May-2010 16:13 Encounter Diagnosis: HYDROCELE NOS (603.9) End: 10-May-2010 16:17 [facility] Error Encounter On: 09-May-2010 16:26 Encounter Diagnosis: Cystitis,Acute (595.0) End: 09-May-2010 16:43 [facility] Office Visit On: 09-May-2010 11:51 Encounter Reason: Hernia - The onset of the hernia has been sudden and has been occurring in a persistent pattern for 1 days. The course has been increasing. The hernia is described as moderate. Encounter Diagnosis: Abdominal Pain,RLQ (789.03), End: 09-May-2010 12:50 HERNIA, UNILATERAL INGUINAL, W/O OBST/GNGR (550.90), Other testicular dysfunction (257.8), Cramp in limb (729.82) [facility] Office Visit On: 24-Feb-2010 12:55 Encounter Reason: Sinusitis/ - The duration of the symptoms are 3 days The course has been constant. The sinusitis/ has no relieving factors. Associated features include The symptoms have been associated with cough ,nasa End: 24-Feb-2010 13:27 l discharge/stuffy nose and sinus pain. diabetes and heart disease. Encounter Diagnosis: Acute sinusitis, unspecified (461.9) [facility] Office Visit On: 03-Feb-2010 10:06 Encounter Reason: Follow up for chronic medical issues - The patient feels well with minor complaints ,has decreased energy level and is sleeping poorly. Patient has been compliant with instructions. Current medication u End: 03-Feb-2010 10:57 se: no side effects ,compliant with dosing regimen and considered effective by patient. Patient sleeps 5 hours per night. Impact of disease: emotional impact-mild. Nutrition: balanced diet and supplemen fabian vitamins. The medical issues the patient is following up for include blood sugar issues ,cardiac issues ,gastric reflux ,high blood pressure ,high cholesterol ,hypothyroid ,other (XOCHITL, RLS, testicul ar hypofunction) and peripheral vascular disease. 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 Patient has been compliant with instructions. Current medication use: no side effects End: 02-Nov-2009 8:31 ,compliant with dosing regimen and considered effective by patient. Patient sleeps 5 hours per night. Impact of disease: emotional impact-mild. Nutrition: balanced diet and supplemental vitamins. The mn dical issues the patient is following up for include blood sugar issues ,cardiac issues ,gastric reflux ,high blood pressure ,high cholesterol ,hypothyroid ,other (obesity, testicular hypofunction, XOCHITL,RLS) and peripheral vascular disease. 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), Cardiomyopathies (425.4), DIABETIC NEPHROPATHY (250.4), Diverticulosis (562.10), Hyposmolality and/or hyponatremia (276.1), GERD (530.81), Peripheral vascular disease (443.9), Obesity (278.00), Cardiac dysrhythmia, unspecified (427.9), Allergic rhinitis (477.9) [facility] Annotation/Addendum On: 07-Sep-2009 14:00 Encounter Diagnosis: Well Male End: 07-Sep-2009 14:01 [facility] Phone Encounter On: 17-Aug-2009 12:12 [facility] End: 17-Aug-2009 12:12 Office Visit On: 26-Jul-2009 10:34 Encounter Reason: Follow up for chronic medical issues - The patient feels well with minor complaints ,has decreased energy level and is sleeping poorly. Patient has been compliant with instructions. Current medication u End: 27-Jul-2009 20:00 se: experiencing side effects (zocor caused muscle aches ). Patient sleeps 5 hours per night. Impact of disease: emotional impact-mild. Nutrition: balanced diet and supplemental vitamins. The medical is sues the patient is following up for include blood sugar issues ,cardiac issues ,gastric reflux ,high blood pressure ,high cholesterol ,hypothyroid ,other (testicular hypofunction, RLS, obstructive sleep apnea) and peripheral vascular disease. 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), Hyperthyroidism (242.90), Diverticulosis (562.10), Hyposmolality and/or hyponatremia (276.1), GERD (530.81), Peripheral vascular disease (443.9), Obesity (278.00), Cardiac dysrhythmia, unspecified (427.9), Cardiomyopathies (425.4), DIABETIC NEPHROPATHY (250.4), Hyperlipidemia, Mixed (272.2), Coronary Artery Disease (414.00), 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 Patient has been compliant with instructions. Current medication use: no End: 23-Apr-2009 13:36 side effects ,compliant with dosing regimen and considered effective by patient. Patient sleeps 7 hours per night. Impact of disease: emotional impact-mild. Nutrition: balanced diet and supplemental vit amins. The medical issues the patient is following up for include blood sugar issues ,cardiac issues ,gastric reflux ,high blood pressure ,high cholesterol ,hypothyroid ,other (obesity, RLS, testicular hypofunction ) and peripheral vascular disease. 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 Patient has been compliant with instructions. Current medication use: no End: 21-Sep-2008 13:29 side effects ,compliant with dosing regimen and considered effective by patient. Patient sleeps 7 hours per night. Impact of disease: emotional impact-mild. Nutrition: balanced diet. The medical issues the patient is following up for include blood sugar issues ,cardiac issues ,gastric reflux ,high blood pressure ,high cholesterol ,hypothyroid and other (RLS, obstructive sleep apnea ). 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 Patient has been compliant with instructions. Current medication use: no arlene End: 19-Jun-2008 14:15 e effects and compliant with dosing regimen. Patient sleeps 8 hours per night. Nutrition: balanced diet and supplemental vitamins. The medical issues the patient is following up for include All identifi ed problems below and blood sugar issues (diabetes). 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 Patient has been compliant with instru End: 05-Mar-2008 11:18 ctions. Current medication use: no side effects ,compliant with dosing regimen and considered effective by patient. Patient sleeps 6 hours per night. Impact of disease: emotional impact-mild. Nutrition: balanced diet and supplemental vitamins. The medical issues the patient is following up for include blood sugar issues ,cardiac issues ,high blood pressure ,high cholesterol and hypothyroid (hx thyroid storm ). 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), Diverticulosis (562.10), Peripheral vascular disease (443.9), Cardiac dysrhythmia, unspecified (427.9), GERD (530.81), Hyperlipidemia, Mixed (272.2), Hyperthyroidism (242.90), Dysphagia (787.2), Obstructive sleep apnea (327.23), BRONCHITIS, NOT SPECIFIED ACUTE OR CHRONIC (490.), Acute sinusitis, unspecified (461.9), SOB (786.05), Well Male, DIABETIC NEPHROPATHY (250.4), Calculus of gallbladder with acute cholecystitis, with obstruction (574.01) [facility] Nurse Visit (Non-[place]) On: 11-Feb-2008 8:16 Encounter Diagnosis: Hypertension (401.0) End: 11-Feb-2008 8:18 [facility] Phone Encounter On: 02-Jan-2008 6:56 [facility] End: 02-Jan-2008 7:00 Office Visit On: 05-Dec-2007 11:08 Encounter Diagnosis: Diabetes, Type II, controlled (250.00) End: 05-Dec-2007 11:10 [facility] Office Visit On: 05-Dec-2007 10:30 Encounter Reason: Follow up hospital - Reason for ER visit: note: (thyroid storm ). The patient feels well with minor complaints ,has decreased energy level and is sleeping well. Patient has been compliant with instructi End: 05-Dec-2007 10:59 ons. Current medication use: no side effects ,compliant with dosing regimen and considered effective by patient. Patient sleeps 7 hours per night. Impact of disease: emotional impact-mild. Nutrition: ba lanced diet. Note for Follow up hospital: after see him had CP--did thyroid storm--give morphine, swan--toprol and PTU and prednisone. had pulmonary edema. at [facility] release sunday. had chest pain. weak but feel good. breathing better. still on prednisone. sugars 120's. was waiting for ptu to come into pharmacy before start when went into thyroid stormEncounter Diagnosis: Diabetes, Type II, controlled (250.00), Cardiomyopathies (425.4), Acute renal failure, unspecified (584.9), Thyroid storm [facility] Office Visit On: 20-Nov-2007 8:01 Encounter Reason: Follow up hospital - Reason for ER visit: note: (chest pain). The patient does not feel well ,has decreased energy level and is sleeping poorly. Patient has been compliant with instructions. Current med End: 20-Nov-2007 8:42 ication use: no side effects. Patient sleeps 6 hours per night. Impact of disease: no emotional impact. Nutrition: inadequate caloric intake. Hospital procedures performed were heart catherization (norm al, no changes). The hospital results of the chest X-ray and CT scan chest were Note for Follow up hospital: chest pain and hyperthyroidism pt was in and out hospital. hyperthyroid off amiodarone. cat h med only. [address] but distal blockage. in [facility] adjust meds, stress negative. saw shewman yesteray--depending on test iodine uptake if will use methizole vs prednisone or both. having dysphagia --things get stuck up in throat no choke. use acif]phex if reflux not been alot. on nexium in hospital ? help. eating okay less nausea than had but not eating as was. 30 pound lost. no chest pain now. n oe echo ef 30% down fro 55% no chest pain now. sob still. weak with exertion. also note irregular breathing in sleep and note apnea. use cpap at night in hospital. help sleep betterEncounter Diagnosis: Coronary Artery Disease (414.00), Hyperthyroidism (242.90), Dysphagia (787.2), GERD (530.81), Obstructive sleep apnea (327.23), Cardiac dysrhythmia, unspecified (427.9), Diabetes, Type II, controlled (250.00), Cardiomyopathies (425.4) [facility] Office Visit On: 02-Oct-2007 8:03 Encounter Reason: Cough - The onset of the cough has been sudden (4 days ago). The cough is characterized as productive of mucoid sputum. The amount of sputum produced is copious. The cough occurs all the time. The sympt End: 02-Oct-2007 8:43 oms are aggravated by supine posture and particular position, but not by meals. The symptoms have been associated with headache ,hoarseness ,runny nose ,sore throat and wheezing, while the symptoms have not been associated with fever. the color of the sputum is yellowish. Encounter Diagnosis: BRONCHITIS, NOT SPECIFIED ACUTE OR CHRONIC (490.), Acute sinusitis, unspecified (461.9) [facility] Historical Summary On: 23-Sep-2007 11:27 [facility] End: 23-Sep-2007 11:28 Office Visit On: 03-Sep-2007 13:35 Encounter Reason: Follow up for chronic medical issues - The patient feels well with no complaints ,has good energy level and is sleeping well. Patient has been compliant with instructions. Current medication use: no arlene End: 03-Sep-2007 14:14 e effects and compliant with dosing regimen. Patient sleeps 8 hours per night. Impact of disease: no overall impact. Nutrition: balanced diet and no supplemental vitamins & iron. The medical issues the patient is following up for include All identified problems below ,blood sugar issues ,cardiac issues ,gastric reflux ,high blood pressure ,high cholesterol ,other (Diverticulosis) and peripheral va scular disease. fasting blood sugars : (higher than normal--not able take byetta, 140). Note for Follow up for chronic medical issues: admitted to hospital with adb upset--went [facility]--got ERCP into sten t--going to see surgeon up at [facility]--plan gb removal. signs and symptoms better with clearing of duct. echo done.moodispaw cleared surgery, [ADDITIONAL REASON] Follow up, Laboratory Test Results - Date: (07/30/07). 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), HYPERPLASIA OF PROSTATE, UNSPECIFIED, WITHOUT URINARY OBSTRUCTION (600.90), Wheezing (786.07), Bronchitis,Acute (466.0), Well Male, DIABETIC NEPHROPATHY (250.4), Calculus of gallbladder with acute cholecystitis, with obstruction (574.01) [facility] Refill Request On: 06-May-2007 10:40 [facility] End: 06-May-2007 10:46 Office Visit On: 28-Feb-2007 13:38 Encounter Diagnosis: Coronary Artery Disease (414.00), Cough (786.2) End: 28-Feb-2007 13:53 [facility] Office Visit On: 27-Feb-2007 11:58 Encounter Diagnosis: SOB (786.05) End: 28-Feb-2007 13:36 [facility] Office Visit On: 18-Feb-2007 17:43 Encounter Reason: Cough - The onset of the cough has been 3 weeks ago. The cough is characterized as productive of mucoid sputum. The amount of sputum produced is scanty. The cough occurs mainly at night. The symptoms ar End: 18-Feb-2007 18:36 e aggravated by supine posture. The symptoms have been associated with runny nose, while the symptoms have not been associated with dysphagia ,fever ,headache ,hoarseness or sore throat. the color of th e sputum is clear. Note for Cough: got better then almost completely resolved - now back starting agin with cough and congestionEncounter Diagnosis: Cough (786.2), SOB (786.05) [facility] Office Visit On: 07-Feb-2007 8:10 Encounter Reason: Follow up for chronic medical issues - The patient feels well with minor complaints ,has good energy level and is sleeping well. Patient has been compliant with instructions. Current medication use: no End: 07-Feb-2007 8:29 side effects ,compliant with dosing regimen and considered effective by patient. Patient sleeps 7 hours per night. Impact of disease: no overall impact. Nutrition: balanced diet and supplemental vitamin s. The medical issues the patient is following up for include blood sugar issues ,cardiac issues ,gastric reflux ,high blood pressure ,high cholesterol and peripheral vascular disease. fasting blood sug ars : (100-125). 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 The sinusitis/ has no relieving factors. Associated features include The symptoms have been associated with End: 31-Jan-2007 9:28 cough ,nasal discharge/stuffy nose and purulent nasal discharge. diabetes and heart disease. Note for Sinusitis/: Pt was here on Sunday and was instructed to return today if no improvement. States he is 10% better however he still is coughing a lot and can't sleep because of the coughing.Encounter Diagnosis: Bronchitis,Acute (466.0), SOB (786.05), Wheezing (786.07) [facility] Office Visit On: 28-Jan-2007 18:01 Encounter Reason: Sinusitis/ - The duration of the symptoms are 4 days The course has been worsening. The sinusitis/ has no relieving factors. Associated features include The symptoms have been associated with cough ,cem End: 29-Jan-2007 6:43 al discharge/stuffy nose ,sinus pain and sore throat. diabetes and heart disease. Note for Sinusitis/: had pnemonia- in the recent past and got rid of sx- but was exposed to someone last week and now coughing wheezing and sobEncounter Diagnosis: Bronchitis,Acute (466.0), Wheezing (786.07) [facility] Office Visit On: 28-Dec-2006 9:43 [facility] End: 28-Dec-2006 9:44 Historical Summary On: 16-Oct-2006 10:20 Encounter Diagnosis: Unspecified Diagnosis End: 16-Oct-2006 10:21 [facility] Office Visit On: 03-Oct-2006 13:19 Encounter Reason: Follow up for chronic medical issues - The patient feels well with no complaints ,has good energy level and is sleeping well. Patient has been compliant with instructions. Current medication use: not co End: 04-Oct-2006 8:26 nsidered effective by patient (metformin not as effective as actos). Patient sleeps 8 hours per night. Nutrition: balanced diet. The medical issues the patient is following up for include blood sugar is sues ,cardiac issues ,high blood pressure ,high cholesterol ,kidney problems and peripheral vascular disease. fasting blood sugars : (actos 113, now 137, better off actos no swelling, better off). 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 Patient has been compliant with instructions. Current medication use: experiencing side eff End: 06-Jul-2006 14:02 ects (stopped Byetta d/t nausea). Nutrition: balanced diet. fasting blood sugars : (136-144 not as good). , [ADDITIONAL REASON] Follow up Hypertension - The patient has experienced follow up hypertension for years. The symptoms have been associated with family history of hypertension and obesity. blood pressure range : (110/65). 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
--- OUTSIDE RECORDS SUMMARY | 2019-01-20 05:55 | XMS RPT_ITS | Continuity of Care Document ---
:1940 Author Organization [facility] Address [address] [place] [address] Phone Care Team Providers Name Role Phone [...] literature about in medical journals. look like panamanian study that it did help. no side [...] M Start : 17-Aug-2017 Active Comments:changed from [facility] dc summary MagOx 400 400 (241.3 [...] : 13-Oct-2010 End : 07-Apr-2011 Inactive NYSTATIN, [id number] (External Powder) 1 Powder bid for 0 [...] : 09-Mar-2011 End : 15-Aug-2011 Inactive ZOSTAVAX, [id number]/0.65ML (Subcutaneous Solution Reconstituted) 1 For Solution once [...] (M79.89, 729.81) Status: Resolved as of 25-Dec-2017 MA (myocardial infarction) (I21.9, 410.90) Comments: talk about get records. see what cath showed talk about fish oil await doing biomarker sn inflammatory markers ? VT related since cath no blockage. [facility] [place] had rafa st pain radiated down arm, and squad took him to hospital, told had MA, took off lasix, and put on bumex. [...] Dates Details CABG, USING 3 VENOUS GRAFTS (32800) Completed Comments: 1988, 10-08-02 (SVG to to LAD, SVG to right PDA, radial artery to OM-2) CARDIAC ABLATION (32122) Completed Comments: [facility] , [facility] 10-04-18 cholecytectomy 10-04 Completed CRANIOTOMY, EMERGENT, FOR SUBDURAL Completed HEMATOMA EVACUATION (70035) Comments: [facility] Completed Comments: stent 10-04 Left heart cath Completed Comments: [facility] Right and left coronary angiography, Saphenous vein with angiography hemostatsis with Mynx Dr. [id number] Left Heart Cath [facility] DX: moderate to severe elevated LVEDP pacemaker Completed Comments: 2001, ICD, replaced 06-11 Total right hip replacement Completed Comments: [facility] 11-07-11 rec. 3 units PRBC's Date Value Details 04-Nov-2018 Cardiology Visit Report Result: Comments: See Note; NOTES: [facility] [address] [place] [address] OFFICE VISIT Date of Service: 11/04/18 MR#: [id number] Acct: [id number] Name: MAYRA GHOSH Rep #: [id number] : 1940 Provider: Amando Hu MD Age/Sex: 78/M Location: [facility] Status: Signed HPI HPI Details: MAYRA GHOSH, is a 78 M who presents to the office today for outpatient cardiovascular follow-up. He has recently been at [facility] as well as subsequently at [facility]. [...] at the time. He then returned to [facility] because of weakness. There were concerns [...] meq PO BID 11/04/18 [History Confirmed 11/04/18] [facility] Medical History HLD (hyperlipidemia) (Chronic) Non-ST e [...] (Chronic) Hypokalemia (Chronic) Atherosclerotic heart disease of [place] coronary artery without angina pectoris (Chronic) Ventricular [...] (Examined in the wheelchair) Nutritional Appearance: overweight [place] ation: alert, awake and oriented x3 Head [...] disease involving eva nary bypass graft of [place] heart, angina presence unspecified I25.10 Plan He [...] 3 Months (with PFM) 11/04/18 (copy of [facility] labs) Coding Level of Care Code Off vis,est,level 4 Diagnoses Atrial fibrillation I48.91 History of cardiac radiofrequency ablation (RFA) Z98.890 A utomatic implantable cardiac defibrillator in situ Z95.810 Coronary artery disease involving coronary bypass graft of [place] heart, angina presence unspecified I25.10 Postsurgical aortocoronary [...] artery disease involving coronary bypass graft of [place] heart, angina presence unspecified I25.10 Postsurgical aortocoronary [...] Date (if applicable) CC: Anabella Núñez MD 04-Nov-2018 12 Lead EKG performed by [facility] Result: Comments: See Note; NOTES: [facility] [address] [place] [address] 12 Lead EKG performed by [facility] 11/04/18 1605 MR#: [id number] Acct: [id number] Name: MAYRA GHOSH Екатерина Rep #: [id number] : 1940 78 From: Amando Hu MD Attending Dr: Amando Hu MD Status: DEP [facility] Ordering Dr: Amando Hu MD Date: 11/04/18 Location: [facility] Sex: M C Admitted: O RDER #: [id number] [facility]/12 Lead EKG performed by [facility] ECG Report Interpretation Somatic / motion artifactElectronic ventricular pacemakerPacemaker ECG, No further analysis Electro nically signed on 11/04/2018 at 17:50 by Amando Hu Software Version 8610 11/04/18 1755 Date Amando Hu MD CC: Anabella Núñez MD Da te Dictated: 11/04/18 1605 Date Transcribed: 11/04/181604 Asphalt Mixing Machine Operator: PM Signed 16-Oct-2018 Emergency Department Summary Result: Comments: See Note; NOTES: [facility] Medical Records Department [address] [place] [address] Emergency Department Summary 10/16/18 1348 MR#: [id number] Acct: [id number] Name: MAYRA GHOSH Rep #: [id number] : 1940 78 From: Darrel Bean MD PCP: Anabella Núñez MD Status: REG ER - ER Visit Summary Date of Service: 10/16/18 Chief Complaint: Cough and generalized weakn ess. History of Present Illness: The patient is a [address] of cardiomyopathy, V. tach, defibrillator, noncemented diabetes, renal insufficiency, CAD with prior double bypass. Recent ablation at [facility]. Prior intracranial bleed with surgical drainage. [...] significant concern he was discharged twice from [facility] and had to be readmitted. She [...] and CABG and cardiomyopa thy History of tcc-dnhcems-emormbyws diabetes History of renal insufficiency This note was generated with Otelic dictation software. It may contain incorrect words, [...] Emergency Room. Call 911 if necessary. 10/16/18 1867 <Electronically signed by Darrel Bean MD> Date Star Bean MD Cosigner Signature (If Indicated): Date CC: Anabella Núñez MD 16-Oct-2018 Chest 1 View (Portable) Result: Comments: See Note; NOTES: [facility] Imaging Services [address] [place] [address] Chest 1 View (Portable) MR#: [id number] Acct: [id number] Name: MIRELAMAYRA Екатерина Rep #: [id number] : 1940 M 78 From: Gene Jayshree BARFIELD PCP: Anabella Núñez MD Status: REG ER Study: Chest 1 View (Portable) Date of Exam: 10/16/18 Exam# [id number] Ordering Dr: Darrel Bean MD STUDY: X-RAY [...] CC: Anabella Núñez MD; Darrel Bean MD Asphalt Mixing Machine Operator: Signed 30-Sep-2018 Chest 1 View (Portable) Result: Comments: See Note; NOTES: [facility] Imaging Services [address] [place] [address] Chest 1 View (Portable) MR#: [id number] Acct: [id number] Name: MAYRA GHOSH Rep #: [id number] : 1940 78 From: Nereyda Barr MD PCP: Anabella Núñez MD Status: REG ER Study: Chest 1 View (Portable) Date of Exam: 09/30/18 Exam# [id number] Ordering Dr: Jennifer Sibley MD STUDY: X-RAY [...] unchanged since the previous study. Electronically Signed: Neryeda Barr MD at 8:11 EST , Service support , CC: MD Zelalem palma; Anabella Núñez MD Asphalt Mixing Machine Operator: Signed 22-Sep-2018 History and Physical Exam Result: Comments: See Note; NOTES: [facility] Medical Records Department [address] [place] [address] History and Physical 09/22/18 0602 MR#: [id number] Acct: [id number] Name: JETHRO GHOSH Rep #: [id number] : 1940 78 From: Etta Grey PCP: [...] Qualifiers: Coronary Disease-Associated Artery/Lesion type: bypass graft [place] vs. transplanted he art: [place] heart Associated angina: angina presence unspecified Qualified Code(s): I25.810 - Atherosclerosis of coronary artery bypass graft(s) without angina pectoris (6) XOCHITL (obstructive sleep apnea ) Status: Chronic (7) Diabetes mellitus type 2, noninsulin dependent Status: Chronic (8) Atherosclerotic heart disease of [place] coronary artery without angina pectoris Status: Chronic Qualifiers: [place] vs. transplanted heart: [place] heart Qualified Code(s): I25.10 - Atherosclerotic heart disease of [place] coronary artery without angina pectoris Comment: CABG [...] type II, XOCHITL who presents to the [facility] ED on 09/22/18 with history of nausea, [...] (Chronic) Hypokalemia (Chronic) Atherosclerotic heart disease of [place] coronary artery without angina pectoris (Chronic) CABG 1988; Reoperation CABG x3 SVG to LAD, SVG to Rt PDA, Radial artery to OM-2 10/08/02; [place] ablation [facility] 01[facility]17 [facility] 03/10/2016 Ventricular tachycardia (paroxysmal) (Chronic) ICD (implantable cardioverter-defibrillator) in place (Chronic 11/2001) Implant 12/10/2001 ICD replacement 06/10/2009, 06/05/2014, Systolic CHF, chronic (Chronic) Cardiomyopathy, ischemic (Chronic) CKD (chronic kidney disease), stage II (Chronic) Type I I diabetes mellitus, uncontrolled (Chronic) Esophageal reflux (Chronic) HLD (hyperlipidemia) (Chronic) HTN (hypertension) (Chronic) Hypothyroidism (Chronic) Sleep apnea (Chronic) Medical History: [facility] History (Last Reviewed 08/30/18 @ 13:48 [...] Hypokalemia (Chronic) E87.6 Atherosclerotic heart disease of [place] coronary artery without angina pectoris (Chronic) I25.10 CABG 1988; Reoperation CABG x3 SVG to LAD, SVG to Rt PDA, R adial artery to OM-2 10/08/02; VT ablation @[facility] 01/03/17 [facility] 03/10/2016 Ventricular tachycardia (paroxysmal) (Chronic) I47.2 [...] HEENT: Denies: Head Aches, Sinus Congestion, Sinus Tayrn inage Cardiovascular: Denies: Chest Pain, Palpitations Respiratory: [...] II, XOCHITL who present s to the [facility] ED on 09/22/18 with history of nausea, [...] heparin. Code Visit OBSV E AND M: 87594 Initial observation care L3 09/22/18 0634 <Electronically signed by Etta Grey > Date Etta Grey Cosign er Signature: Date (if applicable) CC: Etta Grey; Anabella Núñez MD Signed 22-Sep-2018 Emergency Department Summary Result: Comments: See Note; NOTES: [facility] Medical Records Department [address] [place] [address] Emergency Department Summary 09/22/18 0619 MR#: [id number] Acct: [id number] Name: MAYRA GHOSH Rep #: [id number] : 1940 78 From: Juan C Winston [...] Epiploic appendagitis This note was generated with Otelic dictation software. It may contain incorrect words, spelling, and punctuation that were not noted in review of the [facility] rt prior to signing ED Disposition - Plan for ED Patient: Chief Complaint: Nausea/Vomiting Referrals: Anabella Núñez MD [Primary Care Provider] - What to do if you have Problems For any increased pain, shortness of breath, bleeding, nausea or vomiting, chest pain, or any unexpected problems, contact your Primary Care Provider. Call [facility] ([phone]) or report to the closest Emergen cy Room. Call 911 if necessary. 09/22/18 0621 <Electronically signed by Juan C Winston MD> Date Juan C Bethigner Signpauletteur e (If Indicated): Date CC: Anabella Núñez MD 22-Sep-2018 Abdomen/Pelvis without Cont Result: Comments: See Note; NOTES: [facility] Imaging Services [address] [place] [address] Abdomen/Pelvis without Cont MR#: [id number] Acct: [id number] Name: MAYRA GHOSH Rep #: [id number] : 1940 M 78 From: Vernon Coronel MD PCP: Anabella Núñez MD Status: REG ER Study: Abdomen/Pelvis without Cont Date of Exam: 09/22/18 Exam# [id number] Ordering Dr: Juan C Winston MD STUDY: [...] Anabella Núñez MD; Juan C Winston MD Asphalt Mixing Machine Operator: Signed 30-Aug-2018 Cardiology Visit Report Result: Comments: See Note; NOTES: [facility] [address] [place] [address]. [address] [place] [address] OFFICE VISIT Date of Service: 08/30/18 MR#: [id number] Acct: [id number] Name: MAYRA GHOSH Re p #: [id number] : 1940 Provider: Amando Hu MD Age/Sex: 78/M Location: [facility] Status: Signed HPI HPI Details: MAYRA [...] PO .COMPLEX tab 08/30/18 [History Confirmed 08/30/18] [facility] Medical History HLD (hyperlipidemia) (Chronic) Non -ST [...] (Chronic) Hypokalemia (Chronic) Atherosclerotic heart disease of [place] coronary artery without angina pectoris (Chronic) Ventricular [...] Negative for rash Cardiology Exam Const Appearance: site coordinator perative, healthy appearing, comfortable, no acute [...] study was technically difficult. Contrast injection was [id number]. Mildly dilated left ventricle. Moderately severe segmental [...] peak blood pressure of 116/66 mmHg. The [facility] ECG demonstrated normal sinus rhythm with [...] an LVEF of 26%. Cardiac cath: 016: [place], [place] II. SELECTIVE CORONARY ANGIOGRAPHY: A. The [...] The circumflex system is not visualized on [place] left coronary inj ection, but rather faint [...] add ramipril - lCD programmed ON ICD Auto Service Writer: Grouply Name: Powerphotonica S CRTD Model #: DTBB 1D1 Serial #: [id number] Date Implanted: 06/05/2014 Device Characteristics Device: Biventricular Type: Implantable defibrillator Remote:[facility] Assessment AND Plan 1. CAD in [place] artery I25.10 Plan At the present time [...] is on dual antiarrhythmic therapy per his apple picking supervisor. He appears to be tolerating the medications [...] Code Off vis,est,level 4 Diagnoses CAD in [place] artery I25.10 Postsurgical aortocoronary bypass status Z95.1 [...] Code Off vis,est,level 4 Diagnoses CAD in [place] artery I25.10 Postsurgical aortocoronary bypass status Z95.1 [...] M.D. 30-Aug-2018 12 Lead EKG performed by [facility] Result: Comments: See Note; NOTES: [facility] [address] [place] [address] 12 Lead EKG performed by [facility] 08/30/18 1425 MR#: [id number] Acct: [id number] Name: MAYRA GHOSH Rep #: [id number] : 1940 78 From: Amando Hu MD Attending Dr: Amando Hu MD Status: DEP AMB Ordering Dr: Amando Hu MD Date: 08/30/18 Location: [facility] Sex: M C Admitted: O RDER #: [id number] [facility]/12 Lead EKG performed by [facility] ECG Report Interpretation Electronic ventricular pacemaker Pacemaker ECG, No further analysis Electronically signed on 2017 at 15:23 by Amando Hu Software Version 8610 08/30/18 1524 Date Amando Hu MD CC: Anabella Núñez MD Date Dictated: 08/30/18 Date Transcribed: 08/30/181424 Asphalt Mixing Machine Operator: PM Signed 14-Aug-2018 Pacemaker Check Result: Comments: See Note; NOTES: [facility] [address] [place] [address] Pacemaker Check Date of Service: 08/14/18 162 MR#: [id number] Acct: [id number] Name: CLARE GHOSH W Rep #: [id number] : 1940 From: Kristie Perry Age/Sex: 78/M Location: [facility] Status: Signed Billing Codes ICD Device Billing: ICD Dev Interrogate (Rmt) 08/14/18 1623 <Electroni jacque signed by Kristie Perry > Date Kristie Perry 08/14/18 164<Electronically signed by Amando Hu MD> Wei Rodney e: Date (if applicable) Amando Hu MD CC: 30-Jul-2018 Pacemaker Check Result: Comments: See Note; NOTES: [facility] [address] [place] [address] Pacemaker Check Date of Service: 07/30/18 0949 MR#: [id number] Acct: [id number] Name: CLARE GHOSH W Rep #: [id number] : 1940 From: Kristie Perry Age/Sex: 78/M Location: [facility] Status: Signed Billing Codes ICD Device Billing: ICD Dev Interrogate (Rmt) 07/30/18 0951 <Electroni jacque signed by Kristie Perry > Date Kristie Perry 07/30/18 1047<Electronically signed by Amando Hu MD> Wei Signsanaz e: Date (if applicable) Amando Hu MD CC: 07-May-2018 Pacemaker Check Result: Comments: See Note; NOTES: [facility] [address] [place] [address] Ave[address] [place] [address] Pacemaker Check Date of Service: 05/07/181649 MR#: [id number] Acct: [id number] Name: CLARE GHOSH Rep #: [id number] : 1940 From: Kristie Perry Age/Sex: 78/M Location: [facility] Status: Signed Billing Codes ICD Device Billing: ICD Dev Interrogate ([facility]) 05/07/18 1654 <Electroni jacque signed by Kristie Perry > Date Kristie Perry 05/07/18 175<Electronically signed by Amando Hu MD> Wei Signsanaz e: Date (if applicable) Amando Hu MD CC: 22-Feb-2018 Cardiology Visit Report Result: Comments: See Note; NOTES: [facility] [place] [address] OFFICE VISIT Date of Service: 02/22/18 MR#: [id number] Acct: [id number] Name: MAYRA GHOSH Re p #: [id number] : 1940 Provider: Amando Hu MD Age/Sex: 77/M Location: [facility] Status: Signed HPI HPI Details: MAYRA GHOSH, is a 77 M who presents to the office today for for outpatient card iovascular follow-up. He has been hospitalized at [facility] in December of this year for [...] mg PO QWEEK PRN tab 02/22/18 [History] [facility] Medical His tory HLD (hyperlipidemia) (Chronic) Non-ST [...] (Chronic) Hypokalemia (Chronic) Atherosclerotic heart disease of [place] coronary artery witho ut angina pectoris (Chronic) [...] Negative for hematuria Musc Musc: Positive for debora ce problems (occasional); negative for muscle aches/ [...] his underlying renal status. 2. Atherosclerosis of [place] coronary artery of [place] heart without angina pectoris I25.10 CABG 1988; Reoperation CABG x3 SVG to LAD, SVG to Rt PDA, Radial artery to OM-2 10/08/02; VT ablation [facility] 01/03/17 [facility] 03/10/2016 Plan He does have a [...] Systolic CHF, chronic I50.22 Atherosc lerosis of [place] coronary artery of [place] heart without angina pectoris I25.10 [place] vs. transplanted heart: [place] heart Postsurgical aortocoronary bypass status Z95.1 Cardiomyopathy, [...] Diagnoses Systolic CHF, chronic I50.22 Atherosclerosis of [place] coronary artery of [place] heart without angina pectoris I25.10 [place] vs. transpla nted heart: [place] heart Postsurgical aortocoronary bypass status Z95.1 Cardiomyopathy, [...] Pacemaker Check Result: Comments: See Note; NOTES: [facility] [address] [place] [address] Pacemaker Check Date of Service: 02/11/181907 MR#: [id number] Acct: [id number] Name: CLARE GHOSH Rep #: [id number] : 1940 From: Kristie Perry Age/Sex: 77/M Location: [facility] Status: Signed Comments Summary Comments: Remote [...] Location: remote Interview Reason: scheduled follow up Auto Service Writer: Medtronic Name: Viva S MAIL PROCESSING EQUIPMENT MECHANIC-D Model: [id number] Serial #: [id number] Implant Date: 06/05/14 Year(s): 3 Implant Physician: Dr. Saturnino Oquendo/[facility] Patient Characteristics Ventricular Indication: Nonsustained VT, Sustaned VT Patient Substrate: Ischemic cardiomyopathy Ejection fraction %: 35 to 39 ( 02/2017) By: Echo Pacemaker Dependent: No Device Characteristics Device: Biventricular Type: Implantable defibrillator Remote Follow-Up: [facility] Leads Lead #1 Auto Service Writer Lead 1: [place] Model Lead 1: 2088TC Serial# Lead 1: [id number] Date Implanted Lead 1: 06/05/14 Position Lead 1: RA Lead #2 Auto Service Writer Lead 2: Medtronic Model Lead 2: 6947 Serial# Lead 2: [id number] Date Implanted Lead 2: 11/09 Lead #3 Auto Service Writer Lead 3: [place] Model Lead 3: 1258T Serial# Lead 3: [id number] Date Implanted Lead 3: 06/05/14 Position Lead [...] View (Portable) Result: Comments: See Note; NOTES: [facility] Imaging Services [address] [place] [address] Chest 1 View (Portable) MR#: [id number] Acct: [id number] Name: MAYRA GHOSH Rep #: [id number] : 1940 77 From: Renae Coleman MD PCP: Anabella Núñez MD Status: [facility] ER Study: Chest 1 View (Portable) Date of Exam: 01/18/18 Exam# [id number] Ordering Dr: Bennie Hernandez MD STUDY: X-RAY [facility] REASON FOR EXAM: Male, 77 [...] CC: Anabella Núñez MD; Bennie Hernandez MD Asphalt Mixing Machine Operator: Signed 09-Jan-2018 Chest PA and Lateral Result: Comments: See Note; NOTES: [facility] Imaging Services [address] [place] [address] Chest PA and Lateral MR#: [id number] Acct: [id number] Name: MAYRA GHOSH Rep #: [id number] : [address] [facility] From: Louis Sue MD PCP: Anabella Núñez MD Status: REG CLI Study: Chest PA and Lateral Date of Exam: 01/09/18 Exam# [id number] Ordering Dr: Delisa Gordon DO STUDY: X-RAY [...] Louis Sue MD at 12:59 EDT Tel [phone], Service support , CC: Anabella Núñez MD; Delisa Gordon DO Asphalt Mixing Machine Operator: Signed 07-Jan-2018 Inital Evaluation (1) - PT Result: Comments: See Note; NOTES: [facility] Physical [facility] [facility] [place], [place] [address] Fax REHABILITATION SERVICES INITIAL EVALUATION MR#: [id number] Acct: [id number] Name: MAYRA GHOSH Rep #: [id number] : 1940 77 From: Polo Bedolla DPT, OCS, CSCS Referring Dr.: CLARI Smith Status: REG RCR Insurance: [facility] SELF PAY INSURANCE Patient's Visit Information MAYRA GHOSH is a 77 year old M referred to Physical Therapy by Krystal Smith NP-C SCHOOL AGE PROGRAM TEACHER.ODY with a diagnosis of unsteady. Date of Evaluation: 01/03/18 P hysical Therapist: Polo Bedolla DPT, OC - Visit Plan Plan: Pt doesn not want to undergo further balance or strength at this time as he can and will continue on his own as planned. He has no falls nor does he feel unsteady. 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 He understands doctors offic e has written a script for that and is awaiting their referral phone call. Otherwise he will continue ex as planned in previous discharge summary. - Subjective Subjective: Dizzyness and balance the jagdish e as last week. Not sure why he is here. Saw both doctors last week and said he was fine. Will workout at [facility] I adn continue HEP of balance ex as taught to him. Does nto wish to have balance PT. Thought he was having cement truck driver evaluation. No other major changes since d/c [...] to be FAXED BACK to us at [phone] for Medicare purposes. Please let me know if there are questions or concerns regarding this plan of care. Physician Signature: Date:____ <Electronically signed by Polo Bedolla DPT, JEREMI, CSCS> 01/07/18 0643 CC: CLARI Smith; Anabella Núñez MD EBG Signed For Medicare only, by signing this I certify the plan of care. Physicians Signature Date 25-Dec-2017 PT D/C Summary (1) Result: Comments: See Note; NOTES: [facility] [address] [place] [address] Fax REHABILITATION SERVICES RICARDO CONTRERAS SUMMARY MR#: [id number] Acct: [id number] Name: MAYRA GHOSH Rep #: [id number] : 1940 77 From: Polo Bedolla DPT, OCS, CSCS Referring Dr.: Anabella Núñez MD Status: REG RCR Insurance: [facility] SELF PAY INSURANCE HP - PT [...] please feel free to call me at [phone]. Thank you for the referral of this patient. Sincerely, Polo Jewell am, DPT, OC <Electronically signed by Polo Bedolla DPT, OCS, CSCS> 12/25/17 0906 CC: Anabella Núñez MD EBG Signed 10-Dec-2017 Office Visit Report Result: Comments: See Note; NOTES: [facility] Services [address] [address] OFFICE VISIT Date of Service: 10/25/17 MR#: [id number] Acct: [id number] Patient: MAYRA GHOSH Rep #: [id number] : 1940 Provider: Kristie Perry Age/Sex: 77/M Location: [facility] Status: Signed Device Device Date Interviewed: 10/25/17 Follow-up Location: remote Interview Reason: scheduled follow up Man ufacturer: Medtronic Name: Viva S MAIL PROCESSING EQUIPMENT MECHANIC-D Model: IRYP6P2 Serial #: [id number] Implant Date: 06/05/14 Year(s): 3 Implant Physician: Dr. Saturnino Oquendo/[facility] Patient Characteristics Ventricular Indication: Nonsu stained VT, Sustaned VT Patient Substrate: Ischemic cardiomyopathy Ejection fraction %: 35 to 39 (02/2017) By: Echo Underlying rhythm: Sinus rhythm (1st degree AVB and frequent PVC's) Pacemaker Dependen t: No Device Characteristics Device: Biventricular Type: Implantable defibrillator Remote Follow-Up: Carelink Leads Lead #1 Auto Service Writer Lead 1: [place] Model Lead 1: 2088TC Serial# Lead 1: [id number] Date Implanted Lead 1: 06/05/14 Position Lead 1: RA Lead #2 Auto Service Writer Lead 2: Medtronic Model Lead 2: 6947 Serial# Lead 2: [id number] Date Implanted Lead 2: 11/09/01 Lead #3 Auto Service Writer Lead 3: [place] Model Lead 3: 1258T Serial# Lead 3: [id number] Date Implanted Lead 3: 06/05/14 Position Lead [...] - PT Result: Comments: See Note; NOTES: [facility] [address] [place] [address]. [address] [place], [place] [address] Fax REHABILITATION SERVICES INITIAL EVALUATION MR#: [id number] Acct: [id number] Name: MAYRA GHOSH Rep #: [id number] : 1940 77 From: Polo Bedolla DPT, OCS, CSCS Referring Dr.: Anabella Núñez MD Status: REG R [facility] Patient's Visit [...] wear him out to get to the [employer] Normally works out at [employer] with balance ex. Feels like vik jane [...] to be FAXED BACK to us at [phone] for Medicare purposes. Please let me know if there are questions or concerns regarding this plan of care. Physician Signature: Date: <Electronically sig favian by Polo Bedolla DPT, OCS, CSCS> 12/03/17 0942 CC: Anabella Núñez MD EBG Signed For Medicare only, by signing this I certify the plan of care. Physicians Signature Date 14-Nov-2017 Cardiology Visit Report Result: Comments: See Note; NOTES: [facility] [address] [place] [address] OFFICE VISIT Date of Service: 11/14/17 MR#: [id number] Acct: [id number] Name: MAYRA GHOSH Varsha p #: [id number] : 1940 Provider: Amando Hu MD Age/Sex: 77/M Location: 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 At that time he [...] last diagnostic cardiac catheterization was performed at [facility] in [place], [place] on 03/08/2016. At that ti me [...] CABG was performed on 10/08/2002 at the [facility]. 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 transplanted heart: justin mary heart Postsurgical [...] and Lateral Result: Comments: See Note; NOTES: [facility] Imaging Services [address] [place] [address] Chest PA and Lateral MR#: [id number] Acct: [id number] Name: MIRELAMAYRA Willams Rep #: [id number] : 1940 77 From: Nereyda Barr MD PCP: Anabella Núñez MD Status: REG CLI Study: Chest PA and Lateral Date of Exam: 11/11/17 Exam# [id number] Ordering Dr: Anabella Núñez MD STUDY: X-RAY [...] Service support , CC: Anabella Núñez MD Asphalt Mixing Machine Operator: Signed 30-Oct-2017 Office Visit Report Result: Comments: See Note; NOTES: [facility] Services [address] [place] [address] [place] [address] OFFICE VISIT Date of Service: 10/25/17 MR#: [id number] Acct: [id number] Patient: MAYRA GHOSH Rep #: [id number] : 1940 Provider: Kristie Perry Age/Sex: 77/M Location: [facility] Status: Signed Device Device Date Interviewed: 10/25/17 Follow-up Location: remote Interview Reason: scheduled follow up Man ufacturer: Medtronic Name: Viva S MAIL PROCESSING EQUIPMENT MECHANIC-D Model: FAME9E2 Serial #: [id number] Implant Date: 06/05/14 Year(s): 3 Implant Physician: Dr. Saturnino Oquendo/[facility] Patient Characteristics Ventricular Indication: Nonsu stained VT, Sustaned VT Patient Substrate: Ischemic cardiomyopathy Ejection fraction %: 35 to 39 (02/2017) By: Echo Underlying rhythm: Sinus rhythm (1st degree AVB and frequent PVC's) Pacemaker Dependen t: No Device Characteristics Device: Biventricular Type: Implantable defibrillator Remote Follow-Up: Carelink Leads Lead #1 Auto Service Writer Lead 1: [place] Model Lead 1: 2088TC Serial# Lead 1: [id number] Date Implanted Lead 1: 06/05/14 Position Lead 1: RA Lead #2 Auto Service Writer Lead 2: [employer] Model Lead 2: 6947 Serial# Lead 2: [id number] Date Implanted Lead 2: 11/09/01 Lead #3 Auto Service Writer Lead 3: [place] Model Lead 3: 1258T Serial# Lead 3: [id number] Date Implanted Lead 3: 06/05/14 Position Lead [...] Summary (1) Result: Comments: See Note; NOTES: [facility] [address] [place] [address]. [address] [place] [address] Fax REHABILITATION SERVICES DISCHAR SUMMARY MR#: [id number] Acct: [id number] Name: MAYRA GHOSH Rep #: [id number] : 1940 77 From: Polo Bedolla DPT, OCS, CSCS Referring DrDusty: CLARI Smith Status: REG RCR [facility] PT D/C Summary It has been my pleasure to treat MAYRA GHOSH under orders from Krystal Smith, SCHOOL AGE PROGRAM TEACHER-C, for the diagnosis of debility, intracranial hemmorhage [...] please feel free to call me at [phone]. Thank you for the referral of this patient. Sincerely, Polo Bedolla, DPT, OC <Electronically signed by Polo WILSONT, OCS, CSCS> 10/15/17 0645 CC: CLARI Smith; Anabella Núñez MD EBG Signed 24-Sep-2017 D/C Summary- SP Result: Comments: See Note; NOTES: [facility] Speech [facility]ology [facility] [address] [place] [address] Rd. [address] [place] [address] Fax REHABILITATION SERVICES DISCHAR GE SUMMARY MR#: [id number] Acct: [id number] Name: MAYRA GHOSH Rep #: [id number] : 1940 77 From: Darlin Wilson M.S., CCC-PAINT MIXER HAND Referring DrDusty: CLARI Smith Status: REG RCR Insurance: AET NA [facility] Discharge Summary - Discharged: Discharge: Mayra [...] CI <Electronically signed by Darlin Wilson M.S., CCC-PAINT MIXER HAND&#6 2; 09/24/17 1428 CC: CLARI Smith; Anabella Núñez MD [place] Signed 21-Sep-2017 OT D/C Summary Result: Comments: See Note; NOTES: [facility] Occupational [facility] [address]. [address] [place], [place] [address] Fax REHABILITATION SERVICES DIS CHARGE SUMMARY MR#: [id number] Acct: [id number] Name: MAYRA GHOSH Rep #: [id number] : 1940 77 From: Ev Rahman Referring [...] MMT. Additional strength assessments are as follows: intellectual property counsel R 85, L 75; lateral R 15, [...] Resume Hobbies Goal:: Pt. to increase R intellectual property counsel strength by 15 -20 lbs to promote [...] please fell free to call me at [phone]. Thank you for the referral of this patient. Sincerely, Ev Rahman <Electronically signed by Ev Rahman > 09/21/17 1203 CC: CLARI Smith; Anabella Núñez MD KMB Signed 18-Sep-2017 Re-Evaluation - PT (1) Result: Comments: See Note; NOTES: [facility] [address] [place] [address]. [address] [place] [address] Fax REEVALUATION / MEDICARE RECERTI [facility] PHYSICAL THERAPY MR#: [id number] Acct: [id number] Name: MAYRA GHOSH Rep #: [id number] : 1940 77 From: Polo Bedolla DPT, OCS, CSCS Referring DrDusty: CLARI Smith Status: REG RCR Insura nce: [facility] Krystal Smith, SCHOOL AGE PROGRAM TEACHER-C, It has been my pleasure to treat [...] not hesitat e to contact me at [phone] by phone or if you have questions or concerns regarding this new plan of care! Sincerely, Polo Bedolla, DPT, OC <Electronically signed by Pk Bedolla DPT, OCS, CSCS> 09/18/17 0922 CC: CLARI Smith; Anabella Núñez MD EBG Signed For Medicare only, by signing this I certify the plan of care. Physicians Signature Date 03-Sep-2017 OT General Evaluation Result: Comments: See Note; NOTES: [facility] [place] [address] Fax REHABILITATION SERVICES IN TIA EVALUATION MR#: [id number] Acct: [id number] Name: MAYRA GHOSH Rep #: [id number] : 1940 77 From: Ev Rahman Referring Dr.: CLARI Smith Status: REG [facility] Date: Patient's Visit Information MAYRA GHOSH is a 77 year old M, referred to Occupational Therapy by Krystal Smith NP-C,, with a diagnosis of fall-related intracranial hemorrhage s/pcraniotomy. D ate of Evaluation: 08/27/17 Occupational Therapist: Ev Rahman - Subjective Subjective: Pt., Mayra, had fall july 03 and he was admitted into [facility]. present for evaluation and no johnathan that while in hospital he has multiple seizures. HE was transferred up to [facility] in which craniotomy was preformed to help decrease pressure on brain as is was continuing to swell. While in [facility] after surgery he was intubated due to [...] L 4/5 Wrist: R 3+/5, L 4/5 Project Manager Finance: R 75, L 79 Lateral Pinch: R [...] - Goals Goal:: Pt. to increase R intellectual property counsel strength by 15-20 lbs to promote increased [...] services to promote increasing B UE strength, intellectual property counsel and FMC strength, finger dexterity, B hand [...] to be FAXED BACK to us at [phone] for Medicare purposes. Please let me know if there are questions or concerns regarding this plan of care. Physician Signature: Date: <Electronically signed by Ev Rahman > 09/03/17 1032 CC: CLARI Smith; Anabella Núñez MD KMWoody Signed For Medicare only, by signing this I certify the plan of care. Physicians Signature Date 29-Aug-2017 Inital Evaluation (1) - PT Result: Comments: See Note; NOTES: [facility] [address] [place] [address] Fax REHABILITATION SERVICES INITIAL EVALUATION MR#: [id number] Acct: [id number] Name: MAYRA GHOSH Rep #: [id number] : 1940 77 From: Polo Bedolla DPT, OCS, CSCS Referring Dr.: CLARI Smith Status: REG R Insurance: [facility] Patient's Visit Information MAYRA GHOSH is a 77 year old M referred to Physical Therapy by Krystal Smith NP-Vandana with a diagnosis of debility, intracranial hemmorhage. Date of Evaluation: 08/27/17 [facility] sical Therapist: Polo Bedolla, LINUS, OC [...] to be FAXED BACK to us at [phone] for Medicare purposes. Please let me know [...] - SP Result: Comments: See Note; NOTES: [facility] [address] [place] [address] Fax REHABILITATION SERVICES INITIAL EVALUATION MR#: [id number] Acct: [id number] Name: MAYRA GHOSH Rep #: [id number] : 1940 77 From: Tracy Hartman Referring DrDusty: CLARI Smith Status: REG R Insurance: [employer] Histo ry - History Date of Eval: 08/27/17 Medical Diagnosis (from RX): debility s/p craniotomy Previous speech therapy: Yes Results: Pt received ST services in [facility] for primarily word finding deficits. Oth er Relevant Medical History/Diagnoses/Surgery: Pt had a fall which resulted in a craniectomy relieve pressure. Pt was at [facility], then [facility], back to [facility], and back to [facility]. Medications related to this diagno sis: [place], [...] Lead Electrocardiogram Result: Comments: See Note; NOTES: [facility] Cardiovascular Services [address] [place] [address] 12 Lead EKG 07/04/171649 MR#: [id number] Acct: [id number] Name: MAYRA GHOSH Rep # : [id number] : 1940 77 From: Bennie Ray MD [...] Abnormal ECG Confirmed by BENNIE RAY ([id number]), film editor supervisor YANG BARR ([id number]) on 07/06/2017 10:58:37 AM Referred By: ADONAY Confirmed By:BENNIE RAY 07/06/17 1058 Date Bennie Ray MD CC: Anabella Núñez MD Date Dictated: 07/04/171649 Date Transcribed: 07/04/171649 Asphalt Mixing Machine Operator: Signed 04-Jul-2017 Emergency Department Summary Result: Comments: See Note; NOTES: [facility] Medical Records Department [address] [place] [address] Emergency Department Summary 07/04/171655 MR#: [id number] Acct: [id number] Name: MAYRA GHOSH Rep #: [id number] : 1940 77 From: Juan C Winston [...] answer some questions after arrival here to [facility] emergency department. notes that he did fall [...] transfer. Patient will be transf erred to [facility] and was accepted by the emergency [...] helicopter. Treatment Plan: [] Disposition: [facility] Impression: Subdural hemorrhage with midline shift Seizures ED Disposition - Plan for ED Patient: Chief Complaint: i taryn Referrals: Anabella Núñez MD [Primary Care Provider] - What to do if you have Problems For any increased pain, shortness of breath, bleeding, nausea or vomiting, chest pain, or any unexpected pr oblems, contact your Primary Care Provider. Call [facility] ([phone]) or report to the closest Emergency Room. Call 911 if necessary. 07/04/17 1700 <Electronically signed by Juan C Winston MD> Date Juan C Winston MD Cosigner Signature (If Indicated): Date CC: Anabella Núñez MD 04-Jul-2017 Brain/Head without Contrast Result: Comments: See Note; NOTES: [facility] Imaging Services [address] [place] [address] Brain/Head without Contrast MR#: [id number] Acct: [id number] Name: MAYRA GHOSH Rep #: [id number] : [address] [facility] From: Darrel Lopez MD PCP: Anabella Núñez MD Status: DEP ER Study: Brain/Head without Contrast Date of Exam: 07/04/17 Exam# [id number] Ordering Dr: Juan C Winston MD STUDY [...] Anabella Núñez MD; Juan C Winston MD Asphalt Mixing Machine Operator: Signed 04-Jul-2017 Chest 1 View (Portable) Result: Comments: See Note; NOTES: [facility] Imaging Services [address] [place] [address] Chest 1 View (Portable) MR#: [id number] Acct: [id number] Name: MAYRA GHOSH Rep #: [id number] : 1940 77 From: Nadira Pedersen MD PCP: Anabella Núñez MD Status: REG ER Study: Chest 1 View (Portable) Date of Exam: 07/04/17 Exam# [id number] Ordering Dr: Juan C Winston MD STUDY: [...] Nadira Pedersen MD at 17:14 EDT Tel [phone], Service support , Fax CC: Anabella Núñez MD; Juan C Winston MD Asphalt Mixing Machine Operator: Signed 04-Jul-2017 Spine Cervical without Contras Result: Comments: See Note; NOTES: [facility] Imaging Services [address] [place] [address] Spine Cervical without Contras MR#: [id number] Acct: [id number] Name: MAYRA GHOSH Rep #: [id number] : [address] [facility] From: Nadira Pedersen MD PCP: Anabella Núñez MD Status: REG ER Study: Spine Cervical without Contras Date of Exam: 07/04/17 Exam# [id number] Ordering Dr: Juan C Winston MD STUDY: [...] Nadira Pedersen MD at 17:19 EDT Tel [phone], Service support , Fa x [phone] CC: Anabella Núñez MD; Juan C Winston MD Asphalt Mixing Machine Operator: Signed 12-Jun-2017 Operative Report Result: Comments: See Note; NOTES: [facility] Medical Records Department [address] [place] [address] Operative Report 06/12/17 0804 MR#: [id number] Acct: [id number] Name: MAYRA GHOSH Rep #: [id number] : 1940 77 From: Pool Chávez MD PCP: Anabella Núñez MD Status: REG CLI Y Location: [place] [address] Report of Operation Date of Procedure: 06/12/17 [...] and Lateral Result: Comments: See Note; NOTES: [facility] Imaging Services [address] [place] [address] Chest PA and Lateral MR#: [id number] Acct: [id number] Name: MAYRA GHOSH Rep #: [id number] : 1940 M 77 From: Louis Sue MD PCP: Anabella Núñez MD Status: REG CLI Study: Chest PA and Lateral Date of Exam: 06/06/17 Exam# [id number] Ordering Dr: Delisa Gordon DO STUDY: X-RAY [...] Louis Sue MD at 13:58 EDT Tel [phone], Service support , CC: Anabella Núñez MD; Delisa Gordon DO Asphalt Mixing Machine Operator: Signed 14-Mar-2017 CTA Head W/WO Contrast Result: Comments: See Note; NOTES: [facility] Imaging Services [address] [place] [address] [address] CTA Head W/WO Contrast MR#: [id number] Acct: [id number] Name: MAYRA GHOSH Rep #: [id number] : [address] [facility] From: Kalli Lowery MD PCP: Anabella Núñez MD Status: REG ER Study: CTA Head W/WO Contrast Date of Exam: 03/14/17 Exam# [id number] Ordering Dr: Gal Glasgow MD [facility] DY: CTA OF THE BRAIN REASON FOR EXAM: Male, 77 years old. DIZZINESS SINCE 8AM HX-HTN,MA,PACER,CABG,CHF RADIATION DOSAGE (If Supplied By Facility): CTDIvol [...] There is no demonstrated aneurysm of the [place]. There is no demonstrated abnormality of the visuali zed brain. CT/CTA Head W/WO Contrast IMPRESSION: No evidence of significant stenosis or occlusion of the intracranial arteries. See above. Elect ronically Signed: Kalli Lowery MD at 17:56 EDT Tel , Service support , CC: Anabella Núñez MD; Gal Glasgow MD Asphalt Mixing Machine Operator: Signed 14-Mar-2017 CTA Neck W/WO Contrast Result: Comments: See Note; NOTES: [facility] Imaging Services [address] [place] [address] Verdana 4d CTA Neck W/WO Contrast MR#: [id number] Acct: [id number] Name: MAYRA GHOSH Rep #: [id number] : 1940 M 77 From: Kalli Lowery MD PCP: Anabella Núñez MD Status: REG ER Study: CTA Neck W/WO Contrast Date of Exam: 03/14/17 Exam# [id number] Ordering Dr: Gal Glasgow MD DH[facility] DY: CTA NECK WITH CONTRAST REASON FOR EXAM: Male, 77 years old. DIZZINESS SINCE 8AM HX-HTN,MA,PACER,CABG,CHF RADIATION DOSAGE (If Supplied By Facility): CTDIvol [...] CC: Anabella Núñez MD; Gal Glasgow MD Asphalt Mixing Machine Operator: Signed 14-Mar-2017 Chest PA and Lateral Result: Comments: See Note; NOTES: [facility] Imaging Services [address] [place] [address] [address] 4d Chest PA and Lateral MR#: [id number] Acct: [id number] Name: MAYRA GHOSH Екатерина Rep #: [id number] : 1940 77 From: Kalli Lowery MD PCP: Anabella Núñez MD Status: REG ER Study: Chest PA and Lateral Date of Exam: 03/14/17 Exam# [id number] Ordering Dr: Gal Glasgow MD STUDY: X-RAY [...] CC: Anabella Núñez MD; Gal Glasgow MD Asphalt Mixing Machine Operator: Signed 02-Nov-2016 Chest PA and Lateral Result: Comments: See Note; NOTES: [facility] Imaging Services [address] [place] [address] Ver[address]ana 4d Chest PA and Lateral MR#: [id number] Acct: [id number] Name: MAYRA GHOSH Rep #: [id number] : 1940 M 76 From: Tyshawn Gayle DO PCP: Anabella Núñez MD Status: REG CLI Study: Chest PA and Lateral Date of Exam: 11/02/16 Exam# [id number] Ordering Dr: Amando Hu MD STUDY: X-R [...] Tyshawn Gayle DO at 12:16 EST Tel [phone], Service support [phone], CC: Anabella Núñez MD; Aamndo Hu MD Asphalt Mixing Machine Operator: Signed 08-Sep-2016 Kidney and Bladder Result: Comments: See Note; NOTES: [facility] Imaging Services [address] [place] [address] Verdana 4d Kidney and Bladder MR#: [id number] Acct: [id number] Name: MAYRA GHOSH Rep #: [id number] : 1940 76 From: Louis Sue MD PCP: Anabella Núñez MD Status: REG CLI Study: Kidney and Bladder Date of Exam: 09/08/16 Exam# [id number] Ordering Dr: Anabella Núñez MD STUDY: RENAL [...] Louis Sue MD at 15:05 EST Tel [phone], Service support [phone], CC: Anabella Núñez MD Asphalt Mixing Machine Operator: Signed 13-Sep-2015 Chest PA and Lateral Result: Comments: See Note; NOTES: [facility] Imaging Services [address] [place] [address] Verdana 4d Chest PA and Lateral MR#: [id number] Acct: [id number] Name: Lula GHOSH Rep #: [id number] : 1940 M 75 From: Louis Sue MD PCP: Anabella Núñez MD Status: REG CLI Study: Chest PA and Lateral Date of Exam: 09/13/15 Exam# [id number] Ordering Dr: Daria Lowe STUDY: X-RAY CHEST [...] Louis Sue MD at 12:55 EST Tel [phone], Service support [phone], RAD/Chest PA and Lateral IMPRESSION: No acute abnorma lity is seen. Cardiomegaly. Electronically Signed: Louis Sue MD at 12:55 EST Tel [phone], Service support [phone], CC: Daria Lowe; Anabella Núñez MD Asphalt Mixing Machine Operator: Signed 13-Sep-2015 Spirometry (27794) Comments: normal Result: 23-Apr-2014 Echocardiogram Complete Result: Comments: See Note; NOTES: [facility] Cardiovascular Services [address] [place] [address] Echo Complete 04/23/14 0954 MR#: [id number] Acct: [id number] Name: CORNELIA GHOSH Rep #: [id number] : 1940 74 From: Amando Hu MD Attending Dr: Amando Hu MD Status: REG CLI Ordering Dr: Amando Hu MD Date: 04/23/14 Location: [facility] Sex: M C Admitted: Procedure This was [...] Mid- inferoseptal : Akinetic. Mid-anteroseptal : Akinetic. [place] : Hypokinetic. Right Ventricle Normal RV size. [...] max P.7 mmHg TR max P.4 m [facility] E/E' med: 36.0 Interpretation Summary The study [...] MD Date Dictated: 04/23/1454 Date Transcribed: 04/23/142135 Asphalt Mixing Machine Operator: Signed 21-Jan-2014 Chest PA and Lateral Result: Comments: See Note; NOTES: [facility] Imaging Services [address] [place] [address] Radiology Report MR#: [id number] Acct: [id number] Name: MAYRA GHOSH Rep #: [id number] : 1940 M 73 From: Louis Sue MD PCP: Anabella Núñez MD Status: REG CLI Study: Chest PA and Lateral Date of Exam: 01/21/14 Exam# [id number] Ordering Dr: Anabella Núñez MD STUDY: X [...] M.D. 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 Comments: 50 years ago Status: Active Tobacco use: Former smoker. Status: Inactive Smoking Status Name Dates Details Former smoker Vital Signs Date Test Result Details 60-Fpw-538540:45 Temperature 97.6 f Comments: Method: Temporal Pulse [...] 0.00 cm Results Date Description Value Details 78-Jcu-834680:00 Basic Metabolic Profile (BMP) Comments: REDRAW. PREVIOUS SPECIMEN REJECTED DUE TOHEMOLYSIS. 10/16/181430 Cinthia Mcneal.'TROP' Serial specimen #1, #2, #3, or #4: 1[facility] [address] [place], [place], [address] GAP 10 (Normal) Range: 5-15 CO2 26.0 [...] A.D.A. criteria.Please note revised GLUCOSE reference range xbjalymki46/02/2018. 15-Ewp-430508:00 Magnesium Comments: REDRAW. PREVIOUS SPECIMEN REJECTED DUE TOHEMOLYSIS. 10/16/181430 Cinthia Mcneal.'TROP' Serial specimen #1, #2, #3, or #4: [address] [place] [address] [place], [place], [id number](669) MG 2.1 mg/dL (Normal) Range: 1.6-2.6 37-Jwh-261236:00 Troponin-I Comments: REDRAW. PREVIOUS SPECIMEN REJECTED DUE TOHEMOLYSIS. 10/16/18 1431 Cinthia Mcneal.'TROP' Serial specimen #1, #2, #3, or #4: [address] [place] [address] [place], [place], [address] TROPONIN-I 0.022 ng/mL (Normal) Comments: TROPONIN-I EXPECTED VALUES <0.045 Negative 0.045 - 0.590 Consistent with Cardiac Damage > OR = 0.600 Critical Value Not every elevated troponin is indicative of MA. T hesevalues should be used with clinical judgement in examiningthe patient's clinical picture for diagnosis. To establisha diagnosis of MA versus myocardial injury, there must be ademonstrated rise and/ or fall in the troponin values, inaddition to ischemic symptoms, EKG changes, new regionalwall motion abnormality, and/or angiographical evidence. PLEASE NOTE: REFERENCE RANGES EDITED 03/11/1816-Oct-201829-Xuq-158580:00 CBC W/Diff, Automated Comments: [facility] Tskiugkziq[address] [place], [place], [id number](089) Absolute Lymph 1.37 {X10_3/ul} (Normal) Range: 0.83-4.51 [...] 4.6-6.2 WBC 9.4 K/mm3 (Normal) Range: 4.4-11.0 30-Sep-20187:13 Basic Metabolic Profile (BMP) Comments: [facility] Ilnsdxkifq6[address] [place], [address] GAP 12 (Normal) Range: 5-15 CO2 22.0 [...] A.D.A. criteria.Please note revised GLUCOSE reference range elqhsqiwp50/02/2018. 30-Sep-20187:13 CBC W/Diff, Automated Comments: [facility] Bzyokynkmf2424 [place], [address] Absolute Lymph 1.40 {X10_3/ul} (Normal) [...] K/mm3 (Normal) Range: 4.4-11.0 :13 Troponin-I Comments: [facility] Grnnbgxtea13[address] [place], [address] TROPONIN-I 0.030 ng/mL (Normal) Comments: TROPONIN-I EXPECTED VALUES <0.045 Negative 0.045 - 0.590 Consistent with Cardiac Damage > OR = 0.600 Critical Value Not every elevated troponin is indicative of MA. T hesevalues should be used with clinical judgement in examiningthe patient's clinical picture for diagnosis. To establisha diagnosis of MA versus myocardial injury, there must be ademonstrated rise and/ or fall in the troponin values, inaddition to ischemic symptoms, EKG changes, new regionalwall motion abnormality, and/or angiographical evidence. PLEASE NOTE: REFERENCE RANGES EDITED 03/11/1830-Sep-20187:00 Urinalysis, Complete Comments: Order Date: 09/30/18Has pt arrived? YHow was Urine Obtained? SALVAGE ENGINEERING TECHNICIAN TO SPECIFYGal[facility] Mbxykskdna5[address] [place], [place], [id number] MUCUS, URINE 0 SEEN {/hpf} (Normal) BACTERIA [...] (Normal) CLARITY Clear (Normal) COLOR Yellow (Normal) :40 CBC W/Diff, Automated Comments: [facility] Gmahdjzuqy6360 [facility] Marlyn. [place], [place], [address] Absolute Lymph 1.74 {X10_3/ul} (Normal) Range: 0.83-4.51 [...] 4.6-6.2 WBC 7.6 K/mm3 (Normal) Range: 4.4-11.0 50-Ixa-06318:40 Comprehensive Metabolic Profil Comments: [facility] Awatpsyful[address] [place], [place], [address] GAP 13 (Normal) Range: 5-15 CO2 27.0 [...] A.D.A. criteria.Please note revised GLUCOSE reference range lbwoijbcg13/02/2018. 36-Gta-57151:40 Lipase Comments: [facility] Jtudfagwpp6633 [facility] Gabriel. [place], [place], [address] LIPASE 114 U/L (Normal) Range: 73-393 57-Zhf-591936:18 BNP,B-Type NATRIURETIC PEPTIDE Comments: [facility] Kmvesrzdhn1986 [facility] [address]. [place], [place], [address] B-TYPE JUSTIN PEP 734.1 pg/mL (Abnormal) Range: 0-100 77-Mmy-357148:18 CBC-Complete Blood Cnt No Diff Comments: [facility] Fvbfubojar4326 [facility] [address]. [place], [place], [address] MPV 10.4 fL (Normal) Range: 6.2-12.0 PLT [...] 4.6-6.2 WBC 7.2 K/mm3 (Normal) Range: 4.4-11.0 31-Twu-736972:18 Comprehensive Metabolic Profil Comments: 'TROP' Serial specimen #1, #2, #3, or #4: 1[facility] Zhcopbzcbx0607 [place], [address] GAP 10 (Normal) Range: 5-15 CO2 29.0 [...] A.D.A. criteria.Please note revised GLUCOSE reference range uhhsefzxe26/02/2018. 27-Kgs-596199:18 KEPPRA (LEVETIRACETAM) Comments: [facility] (refer to report for specific site)refer to report for address and phone number TANNER Comments: TEST RESULT LIMITSLevetiracetam (Keppra), SLevetiracetam, S 29.6 ug/mL 10.0 - 40.0 TESTING PERFO (Normal) [facility] AT [facility]. ORIGINAL REPORT ON FILE IN LAB CONTAINS ADDITIONAL TEST SITE INFORMATION. 83-Znf-280922:18 Thyroid Stim Hormone (TSH) Comments: 'TROP' Serial specimen #1, #2, #3, or #4: [address] [place] [address] Gmhlujxyhg5693 [facility] [place], [address] TSH 2.73 {uIU/mL} (Normal) Range: 0.358-3.74 37-Qka-917581:18 Troponin-I Comments: 'TROP' Serial specimen #1, #2, #3, or #4: [address] [place] [address] Bwpkhsdvfq1014 [facility]. [place], [place], [address] TROPONIN-I 0.027 ng/mL (Normal) Comments: TROPONIN-I EXPECTED VALUES <0.045 Negative 0.045 - 0.590 Consistent with Cardiac Damage > OR = 0.600 Critical Value Not every elevated troponin is indicative of MA. T hesevalues should be used with clinical judgement in examiningthe patient's clinical picture for diagnosis. To establisha diagnosis of MA versus myocardial injury, there must be ademonstrated rise and/ or fall in the troponin values, inaddition to ischemic symptoms, EKG changes, new regionalwall motion abnormality, and/or angiographical evidence. PLEASE NOTE: REFERENCE RANGES EDITED 03/11/1810-Sep-201853-Ebo-801331:59 Metabolic Panel, Basic Comments: PATIENT NOT FASTINGPERFORMED BY: [facility] Khjqex9289 [address] [place] [id number] (67400) Calcium 9.0 mg/dL (Normal) Range: 8.6-10.2 Carbon [...] 8-27 Glucose 177 mg/dL (Abnormal) Range: 65-99 89-Kao-283157:06 Lipid Profile Comments: [facility] [address]xn[address] [place], [place], [address] VLDL 20 mg/dL (Normal) Range: 5-40 LDL [...] 200-240 mg/dL Borderline >240 mg/dL High Risk 80-Wih-776668:06 Liver Profile Comments: [facility] Zeqt[address]og[address] [place], [place], [address] D BILI 0.35 mg/dL (Abnormal) Range: 0.00-0.30 T BILI 0.90 mg/dL (Normal) Range: 0.20-1.00 ALT 26 U/L (Normal) Range: 16-61 ALK P 158 U/L (Abnormal) Range: 45-117 AST 27 U/L (Normal) Range: 15-37 GLOB 4.8 g/dL (Abnormal) Range: 2.2-4.2 ALB 3.4 g/dL (Normal) Range: 3.2-5.0 T PROT 8.2 g/dL (Normal) Range: 6.4-8.2 :25 Tanner (62067) Comments: PATIENT WAS FASTINGPERFORMED BY: [facility]Mlmoxc[address] [place] [address] [id number] BY: [employer] [id number] Levetiracetam, S 41.3 ug/mL (Abnormal) Range: 10.0-40.0 :25 METABOLIC PANEL, BASIC Comments: PATIENT WAS FASTINGPERFORMED BY: [employer] [place] [address] [id number] BY: [employer] [id number] (86706) Calcium 9.0 mg/dL (Normal) Range: 8.6-10.2 Carbon [...] Count, Citrated Comments: PATIENT WAS FASTINGPERFORMED BY: [facility]6370 [facility] [id number] BY: [address] [id number] ([address]) Plt Count, Citrated Bld 119 {X10E3/uL} (Abnormal) Range: 150-379 80-Piy-690422:54 HGB A1C (84449) Comments: PATIENT NOT FASTINGPERFORMED BY: [place] 7783570 [facility] [id number] Hemoglobin A1c 9.0 % (Abnormal) Range: 4.8-5.6 Comments: . Prediabetes: 5.7 - 6.4 Diabetes: >6.4 Glycemic control for adults with diabetes: <7.0 :54 T4, FREE (THYROXINE) (67035) Comments: PATIENT NOT FASTINGPERFORMED BY: [place] 7783570 [facility] [id number] T4,Free(Direct) 1.15 ng/dL (Normal) Range: 0.82-1.77 25-Gtn-496289:54 TSH (93577) Comments: PATIENT NOT FASTINGPERFORMED BY: [place] 7783570 [facility] [id number]; appt 08/19 TSH 2.130 {uIU/mL} (Normal) Range: 0.450-4.500 02-Ywo-925127:20 Rapid Strep Test, Office (68768) Rapid Strep Test, Office Negative (Normal) 64-Xko-354649:46 Metabolic Panel, Basic Comments: PATIENT NOT FASTINGPERFORMED BY: [place] 7783570 [facility] [id number]; fu today DB (91207) Calcium 9.1 mg/dL (Normal) Range: 8.6-10.2 Carbon [...] 8-27 Glucose 227 mg/dL (Abnormal) Range: 65-99 9-Rwe-683874:53 Basic Metabolic Profile (BMP) Comments: [facility] Bgxbyzdcjk13[address]. [place], [address](014) GAP 12 (Normal) Range: 5-15 CO2 27.0 [...] A.D.A. criteria.Please note revised GLUCOSE reference range soagrbxjh23/02/2018. 5-Otn-372440:53 Magnesium Comments: [facility] Uwzmviepsb4[address] [place], [place], [address](706) MG 1.8 mg/dL (Normal) Range: 1.6-2.6 75-Jzj-352457:10 Basic Metabolic Panel (8) Comments: PATIENT NOT FASTINGPERFORMED BY: CB [facility] Hhfkke4563 [facility] [id number] BY: BN [facility] [address] [id number] Calcium 9.3 mg/dL (Normal) Range: 8.6-10.2 Carbon [...] 8-27 Glucose 325 mg/dL (Abnormal) Range: 65-99 52-Syk-947455:10 Levetiracetam (Keppra), S Comments: PATIENT NOT FASTINGPERFORMED BY: [employer] [facility] [id number] BY: CIDCO[address] [id number] Levetiracetam, S 66.3 ug/mL (Abnormal) Range: 10.0-40.0 70-Gvv-867427:10 Platelet Count on Comments: PATIENT NOT FASTINGPERFORMED BY: [employer] [facility] [id number] BY: [employer] [id number] Citrated Bld Plt Count, Citrated 85 {X10E3/uL} Range: 150-379 Bld (Abnormal) Comments: Platelet count verified by examination of peripheral blood smear. FDP, Plasma 5 ug/mL (Abnormal) Comments: PATIENT NOT FASTINGPERFORMED BY: [employer] [facility] [id number] BY: [address] [id number] :49 LDH 220 [iU]/L (Normal) Comments: PATIENT NOT FASTINGPERFORMED BY: [employer] Linweq8798 [facility] [id number] BY: [address] [id number] :49 Range: 121-224 4-Par-047072:49 Methylmalonic Acid, Serum Comments: PATIENT NOT FASTINGPERFORMED BY: [place] 7783570 [facility] [id number] BY: [address] [id number] Disclaimer: [facility] (Normal) Comments: This test was developed and its performance characteristicsdetermined by [employer]. It has not been cleared or approvedby the Food and Drug Administration. Methylmalonic Acid, Serum 195 nmol/L (Normal) Range: 0-378 2-Vrj-524189:49 Platelet Count on Comments: PATIENT NOT FASTINGPERFORMED BY: [facility] SystemHostel RocketDonald V[place] 3241270 [facility] [id number] BY: [address] [id number] Citrated Bld Plt Count, Citrated 108 {X10E3/uL} Range: 150-379 Bld (Abnormal) Vitamin B12 780 pg/mL (Normal) Comments: PATIENT NOT FASTINGPERFORMED BY: Arno TherapeuticsDonald [place] 3241270 [facility] [id number] BY: [address] [id number] :49 Range: 232-1245 4-Pqd-377286:49 Renal function Panel Comments: standing order q 3 months; PATIENT NOT FASTINGPERFORMED BY: Arno TherapeuticsDonald [place] 3241270 [facility] [id number] BY: [address] [id number] (14004) Albumin 4.3 g/dL (Normal) Range: 3.5-4.8 Phosphorus [...] 8-27 Glucose 244 mg/dL (Abnormal) Range: 65-99 09-Uzg-077239:48 Urinalysis, Office (26801) UA - LEUKOCYTE ESTERASE Trace (Normal) UA - NITRITE Negative (Normal) URINE UROBILINGN CASPER TIMED 2 mg/dL (Normal) UA - PROTEIN Trace mg/dL (Normal) UA - PH 6 (Abnormal) UA - BLOOD Negative (Normal) UA - SPECIFIC GRAVITY 1.020 (Normal) UA - KETONES Negative mg/dL (Normal) UA - BILIRUBIN Negative (Normal) UA - GLUCOSE Negative (Normal) 81-Bjs-006979:47 CBC W/Diff, Automated Comments: Order Date: 04/25/18Order Info: [id number] - CBCDWMarietta [facility]opathic Clinic Kprdpoarwe7520 [address] [place], [place], [address] Absolute Lymph 1.07 {X10_3/ul} (Normal) Range: 0.83-4.51 [...] 4.6-6.2 WBC 7.9 K/mm3 (Normal) Range: 4.4-11.0 08-Uao-123940:47 Renal Profile Comments: Order Date: 04/25/18Order Info: 0790- 1 - RENALOrder Info: [id number] - TROPOrder Info: [id number] - MGOrder Info: 3016-3 - TSHOrder Info: 3024-7 - T4F'TROP' Serial specimen #1, #2, #3, or #4: [address] [place] [address] Talfedlwur8401 [place], [place], [address] CO2 27.0 mmol/L (Normal) Range: 21.0-32.0 CL [...] A.D.A. criteria.Please note revised GLUCOSE reference range ygjmyocrl74/02/2018. 21-Zji-704450:47 Thyroid Stim Hormone (TSH) Comments: Order Date: 04/25/18Order Info: [id number] - RENALOrder Info: [id number] - TROPOrder Info: [id number] - MGOrder Info: 3016-3 - TSHOrder Info: 3024-7 - T4F'TROP' Serial specimen #1, #2, #3, or #4: [address] [place] [address] Brlam[address]ieql[address]. [place], [place], [address] TSH 2.08 {uIU/mL} (Normal) Range: 0.358-3.74 :47 Troponin-I Comments: Order Date: 04/25/18Order Info: [id number] - RENALOrder Info: [id number] - TROPOrder Info: 14739-1 - MGOrder Info: 3016-3 - TSHOrder Info: 3024-7 - T4F'TROP' Serial specimen #1, #2, #3, or #4: [address] [place] [address] [place], [place], [address] TROPONIN-I < 0.015 ng/mL (Normal) Comments: TROPONIN-I EXPECTED VALUES <0.045 Negative 0.045 - 0.590 Consistent with Cardiac Damage > OR = 0.600 Critical Value Not every elevated troponin is indicative of MA. T hesevalues should be used with clinical judgement in examiningthe patient's clinical picture for diagnosis. To establisha diagnosis of MA versus myocardial injury, there must be ademonstrated rise and/ or fall in the troponin values, inaddition to ischemic symptoms, EKG changes, new regionalwall motion abnormality, and/or angiographical evidence. PLEASE NOTE: REFERENCE RANGES EDITED 03/11/1825-Apr-201803-Aej-220153:47 T4, FREE (THYROXINE) (83436) Comments: Order Date: 04/25/18Order Info: 0790-1 - RENALOrder Info: [id number] - TROPOrder Info: 32079-0 - MGOrder Info: 301-3 - TSHOrder Info: 302-7 - T4F'TROP' Serial specimen #1, #2, #3, or #4: [address] [address] [place], [address] T4 FREE DIRECT 1.08 ng/dL (Normal) Range: 0.76-1.46 83-Tmc-651285:47 Magnesium (75483) Comments: Order Date: 04/25/18Order Info: 0790- 1 - RENALOrder Info: [id number] - TROPOrder Info: [id number] - MGOrder Info: 3 - TSHOrder Info: 7 - T4F'TROP' Serial specimen #1, #2, #3, or #4: [address] [facility] Z[address]veknjtjx90[address] [place], [address] MG 1.9 mg/dL (Normal) Range: 1.6-2.6 87-Aza-703950:00 CBC WITH MANUAL DIFF (80214) Comments: standing order q 3 months; PATIENT NOT FASTINGPERFORMED BY: [facility] Fvoeqm0008 Patel [facility] [id number] Immature Grans (Abs) 0.0 {x10E3/uL} (Normal) Range: [...] 4.14-5.80 WBC 9.0 {x10E3/uL} (Normal) Range: 3.4-10.8 04-Loi-435047:00 MAGNESIUM (68176) Comments: standing order q 3 months; PATIENT NOT FASTINGPERFORMED BY: Codekko6370 Automatic Agencyin [place] [id number] Magnesium 1.7 mg/dL (Normal) Range: 1.6-2.3 69-Mnr-783046:00 PARATHORMONE (23117) Comments: standing order q 3 months; PATIENT NOT FASTINGPERFORMED BY: Codekko6370 [facility] AgencyBlue [facility] [id number] PTH, Intact 73 pg/mL (Abnormal) Range: 15-65 41-Pjs-433467:00 Renal function Panel (17789) Comments: standing order q 3 months; PATIENT NOT FASTINGPERFORMED BY: Codekko6370 [employer] FinancialCount Includes [facility]in [place] [id number] Albumin 4.1 g/dL (Normal) Range: 3.5-4.8 Phosphorus [...] 8-27 Glucose 276 mg/dL (Abnormal) Range: 65-99 28-Gcd-663736:29 Renal function Panel (54450) Comments: PATIENT WAS FASTINGPERFORMED BY: [facility] Npvzvp4208 [facility] [id number]; fu - Albumin 4.4 g/dL (Normal) Range: 3.5-4.8 Phosphorus [...] 8-27 Glucose 198 mg/dL (Abnormal) Range: 65-99 4-Wns-118713:18 HgA1C , Office (16505) HgA1C , Office 7.0 % (Normal) Range: 4.6 - 7.1 25-Zgv-09519:46 Basic Metabolic Profile Comments: Comments: Renal InsufficiencyComments: Renal InsufficiencyWMarietta Osteopathic Clinic Jmdwmpjcmr6[address] [place], [address] (FDL) GAP 13 (Normal) Range: 5-15 CO2 24.0 [...] A.D.A. criteria.Please note revised GLUCOSE reference range mjqzlcjxy86/02/2018. 41-Opm-58758:46 Lipid Profile Comments: Comments: Renal InsufficiencyComments: [facility] InsufficiencyGal[facility] Hospital Qkognuanfe4362 [facility]. [place], [place], [address] VLDL 41 mg/dL (Abnormal) Range: 5-40 LDL [...] Liver Profile Comments: Comments: Renal InsufficiencyComments: Renal InsufficiencyGalion Hospital Yeuptennmq18[address]. [place], [place], [address] D BILI 0.16 mg/dL (Normal) Range: 0.00-0.30 T BILI 0.50 mg/dL (Normal) Range: 0.20-1.00 ALT 25 U/L (Normal) Range: 16-61 ALK P 104 U/L (Normal) Range: 45-117 AST 29 U/L (Normal) Range: 15-37 GLOB 4.0 g/dL (Normal) Range: 2.2-4.2 ALB 3.5 g/dL (Normal) Range: 3.2-5.0 T PROT 7.5 g/dL (Normal) Range: 6.4-8.2 9-Aex-489831:37 Magnesium (85454) Comments: PATIENT NOT FASTINGPERFORMED BY: [facility]Co[facility])Fzvwcs3306 [facility] [id number] Magnesium 2.1 mg/dL (Normal) Range: 1.6-2.3 0-Ewi-130186:37 Metabolic Panel, Basic (52371) Comments: PATIENT NOT FASTINGPERFORMED BY: [facility])Evftrf6529 [facility] [id number] Calcium 9.0 mg/dL (Normal) Range: 8.6-10.2 Carbon [...] 8-27 Glucose 284 mg/dL (Abnormal) Range: 65-99 85-Txs-228372:57 Bedside Glucose Comments: [facility] LaboratoryPoint of Qaxj7836 [place] [address] BEDSIDE GLU 381 mg/dL (Abnormal) Range: 70-110 Comments: MANAGEMENT OF PATIENT CARE PER NURSING PROTOCOL 41-Tmk-855504:50 Acetone Serum Comments: [facility] Phdkhvkfxc0[address] [place], [address] ACETONE SERUM NEGATIVE (Normal) 08-Ovg-980249:50 Basic Metabolic Profile (BMP) Comments: 'TROP' Serial specimen #1, #2, #3, or #4: 1WMarietta Osteopathic [facility] Kzbnxddbgf4252 [address] [place], [address] GAP 9 (Normal) Range: 5-15 CO2 30.0 [...] A.D.A. criteria.Please note revised GLUCOSE reference range ocbbsdcua17/02/2018. 11-Qmc-686675:50 BNP,B-Type NATRIURETIC PEPTIDE Comments: [facility] Kxtcpsvmce84[address] [place], [place], [address] B-TYPE JUSTIN PEP 386.1 pg/mL (Abnormal) Range: 0-100 80-Elf-924072:50 CBC W/Diff, Automated Comments: [facility] Qrbcmvnjce48[address] [place], [address] Absolute Lymph 1.11 {X10_3/ul} (Normal) Range: 0.83-4.51 [...] 4.6-6.2 WBC 9.7 K/mm3 (Normal) Range: 4.4-11.0 94-Gzc-634873:50 Troponin-I Comments: 'TROP' Serial specimen #1, #2, #3, or #4: [address] [place] [address] Ktwyxbvcso5000 [facility]. [place], [place], [address] TROPONIN-I 0.03 ng/mL (Normal) Comments: TROPONIN-I EXPECTED VALUES <0.05 NEGATIVE 0.06 - 0.59 AT RISK OF MA > OR = 0.60 SUGGEST MA 34-Gik-313926:51 Renal Profile Comments: Order Date: 01/18/18Order Info: 0790- 1 - RENALOrder Info: [id number] - TROP'TROP' Serial specimen #1, #2, #3, or #4: [address] [place] [address] Tcsaezdteg0920 [facility] [place], [phone] CO2 29.0 mmol/L (Normal) Range: 21.0-32.0 CL [...] A.D.A. criteria.Please note revised GLUCOSE reference range uobzgnwgt90/02/2018. 90-Oqu-134982:51 Troponin-I Comments: Order Date: 01/18/18Order Info: [id number] - RENALOrder Info: [id number] - TROP'TROP' Serial specimen #1, #2, #3, or #4: 1[facility] Fgfrniiyiu09[address] [place], [phone] TROPONIN-I 0.02 ng/mL (Normal) Comments: TROPONIN-I EXPECTED VALUES <0.05 NEGATIVE 0.06 - 0.59 AT RISK OF MA > OR = 0.60 SUGGEST MA 35-Lso-519027:16 HgA1C , Office (25471) HgA1C , Office 7.7 % (Abnormal) Range: 4.6 - 7.1 87-Qjl-097332:47 Basic Metabolic Profile (BMP) Comments: CALL RESULTS TO [phone] Hospital Ovjpyelpav0994 [place], [address] GAP 8 (Normal) Range: 5-15 [...] 200 mg/dLsuggests DIABETES MELLITUS per A.D.A. criteria. 66-Gmw-933698:47 BNP,B-Type NATRIURETIC PEPTIDE Comments: CALL RESULTS TO [phone] Hospital Nmmqklsbpl[address] [place] [address], [address] B-TYPE JUSTIN PEP 580.2 pg/mL (Abnormal) Range: 0-100 61-Xwu-066167:47 CBC W/Diff, Automated Comments: CALL RESULTS TO [phone] Hospital Jckxrelunp4353 [place], [address] Absolute Lymph 0.67 {X10_3/ul} (Abnormal) [...] 4.6-6.2 WBC 5.6 K/mm3 (Normal) Range: 4.4-11.0 39-Eyc-759753:47 Thyroid Stim Hormone (TSH) Comments: CALL RESULTS TO [phone] Hospital Ftpglxuyhs119[address] [place] [address], [id number] TSH 2.08 {uIU/mL} (Normal) Range: 0.358-3.74 58-Dxi-32281:51 CBC, Platelets & Auto Diff Comments: PATIENT WAS FASTINGPERFORMED BY: [facility] Bzcttd5124 [facility] [id number] (05960) Immature Grans (Abs) 0.0 {x10E3/uL} (Normal) Range: [...] 4.14-5.80 WBC 8.6 {x10E3/uL} (Normal) Range: 3.4-10.8 96-Gyo-87726:51 Metabolic Panel, Comprehensive Comments: PATIENT WAS FASTINGPERFORMED BY: [facility]CoJeff[facility])Bixiqj3308 [facility] [id number] (60659) ALT (SGPT) 16 [iU]/L (Normal) Range: 0-44 [...] 8-27 Glucose 122 mg/dL (Abnormal) Range: 65-99 35-Klz-10854:51 TSH (62887) Comments: PATIENT WAS FASTINGPERFORMED BY: [facility]CoJeff[facility])Ssbzzg9131 [facility] [id number] TSH 5.070 {uIU/mL} (Abnormal) Range: 0.450-4.500 51-Tji-85058:51 CALCIFIDIOL (23653) VIT D 25 Comments: PATIENT WAS FASTINGPERFORMED BY: [facility] Ttonsb0679 [facility] [id number] Vitamin D, 25-Hydroxy 27.8 ng/mL (Abnormal) Range: 30.0-100.0 Comments: Vitamin D deficiency has been defined by the [place] [facility] and an Endocrine Society practice guideline as alevel of serum 25-OH vitamin D less than 20 ng/mL (1,2).The Endocrine Society went on to further define vitamin Dinsufficiency as a level between 21 and 29 ng/mL (2).1. IOM ([place] of [employer]). 2010. Dietary reference intakes for calcium and D. [place]: The National Academies Press.2. Yanna MF, Maral [place], Xander EDGAR, et al. Evaluation, treatment, and prevention of vitamin D deficiency: an Endocrine Society clinical practice guideline. JCEM. 2010; 96(7):1911-30. :51 Magnesium (06498) Comments: PATIENT WAS FASTINGPERFORMED BY: [facility] Uusnnm5126 [facility] [place] [id number] Magnesium 1.9 mg/dL (Normal) Range: 1.6-2.3 8-Mwb-969818:43 HgA1C , Office (24894) HgA1C , Office 7.3 % (Abnormal) Range: 4.6 - 7.1 :27 MICROALBUMIN: CREATININE Comments: PATIENT NOT FASTINGPERFORMED BY: LabCo Ilslrk2552 [facility] [id number] Information: NURSE DRAW RATIO (49985) AND (05042) Microalb/Creat Ratio 89.4 {mg/g_creat} (Abnormal) Range: 0.0-30.0 Microalbumin, Urine 142.2 ug/mL (Normal) Creatinine, Urine 159.1 mg/dL (Normal) :27 PARATHORMONE (22018) Comments: PATIENT NOT FASTINGPERFORMED BY: [facility] Gqmscr6796 [facility] [id number] PTH, Intact 53 pg/mL (Normal) Range: 15-65 01-Smq-169822:15 TSH (65411) Comments: PATIENT NOT FASTINGPERFORMED BY: [facility] Aytiwv0318 [facility] [id number] TSH 4.310 {uIU/mL} (Normal) Range: 0.450-4.500 53-Gui-547608:15 METABOLIC PANEL, COMPREHENSIVE Comments: PATIENT NOT FASTINGPERFORMED BY: [facility] [id number] [facility] [id number] ([id number]) ALT (SGPT) 17 [iU]/L (Normal) Range: 0-44 [...] Glucose, Serum 231 mg/dL (Abnormal) Range: 65-99 63-Izg-715759:15 CBC with auto diff (19515) Comments: PATIENT NOT FASTINGPERFORMED BY: [facility] [id number] [facility] [id number] Immature Grans (Abs) 0.0 {x10E3/uL} (Normal) Range: [...] 4.14-5.80 WBC 7.7 {x10E3/uL} (Normal) Range: 3.4-10.8 75-Ecp-228660:15 CALCIFIDIOL (94954) VIT D 25 Comments: PATIENT NOT FASTINGPERFORMED BY: [facility] [id number] [facility] [id number] Vitamin D, 25-Hydroxy 28.8 ng/mL (Abnormal) Range: 30.0-100.0 Comments: Vitamin D deficiency has been defined by the [place] of[employer] and an Endocrine Society practice guideline as alevel of serum 25-OH vitamin D less than 20 ng/mL (1,2).The Endocrine Society went on to further define vitamin Dinsufficiency as a level between 21 and 29 ng/mL (2).1. IOM ([place] [employer]). 2010. Dietary reference intakes for calcium and D. [place]: The National Academies Press.2. Yanna MF, Maral NC, Xander EDGAR, et al. Evaluation, treatment, and prevention of vitamin D deficiency: an Endocrine Society clinical practice guideline. JCEM. 2010; 96(7):1911-30. [id number]-Fcx-[id number]:34 Blood Glucose , Office (63382) Blood Glucose , Office 221 (Normal) 66-Sbm-360706:34 HgA1C , Office (38335) HgA1C , Office 6.3 % (Normal) Range: 4.6 - 7.1 0-Qpm-498175:10 CBC W/Diff, Automated Comments: [facility] [address] [place], [place], [address] Absolute Lymph 1.60 {X10_3/ul} (Normal) Range: 0.83-4.51 [...] 4.6-6.2 WBC 7.5 K/mm3 (Normal) Range: 4.4-11.0 6-Hnj-206018:10 Comprehensive Metabolic Profil Comments: [facility] [address]uz[address]aksbw[address] [place], [place], [address] GAP 8 (Normal) Range: 5-15 CO2 29.0 [...] 200 mg/dLsuggests DIABETES MELLITUS per A.D.A. criteria. 4-Dwe-483139:10 Prothrombin Time w/INR Comments: [facility] Lokgzjlzub[address] [place], [address] INR 1.0 (Normal) PROTIME 13.1 s (Normal) Range: 11.7-14.9 9-Wiu-982443:09 Bedside Glucose Comments: [facility] LaboratoryPoint of [address]. [place], [place] [address] BEDSIDE GLU 249 mg/dL (Abnormal) Range: 70-110 Comments: MANAGEMENT OF PATIENT CARE PER NURSING PROTOCOL 20-Bkq-81960:55 Magnesium (81914) Comments: PATIENT WAS FASTINGPERFORMED BY: LabCo[address] [id number] BY: CB LabCoJefferson [facility])Tzslpc6063 [facility] [id number] Magnesium, Serum 2.1 mg/dL (Normal) Range: 1.6-2.3 :55 METABOLIC PANEL, Comments: PATIENT WAS FASTINGPERFORMED BY: [employer] [address] [id number] BY: Arno TherapeuticsJefferson Stratford Hospital ([facility])Plqdia0716 [facility] [id number] COMPREHENSIVE (35528) ALT (SGPT) 13 [iU]/L (Normal) Range: 0-44 [...] BY NMR Comments: PATIENT WAS FASTINGPERFORMED BY: [employer] [id number] BY: [facility]6370 [facility] [id number] (65288) LP-IR Score <25 (Normal) Comments: INSULIN RESISTANCE MARKER <--Insulin Sensitive Insulin Resistant--> Percentile in Reference PopulationInsulin Resistance ScoreLP-IR Score Low 25th 50th 75th High <27 27 45 63 >63LP-IR Score is inaccurate if patient is non-fasting. .The LP-IR score is a laboratory developed i [facility] that has beenassociated with insulin resistance and [...] 1600 - 2000 Very High > 2000 88-Hkv-33517:55 CALCIFIDIOL (19456) VIT D Comments: PATIENT WAS FASTINGPERFORMED BY: [place] 965677 [facility] [id number] BY: [facility]6370 [facility] [id number] 25 Vitamin D, 25-Hydroxy 35.2 ng/mL (Normal) Range: 30.0-100.0 Comments: Vitamin D deficiency has been defined by the [place] ofMedicine and an Endocrine Society practice guideline as alevel of serum 25-OH vitamin D less than 20 ng/mL (1,2).The Endocrine Society went on to further define vitamin Dinsufficiency as a level between 21 and 29 ng/mL (2).1. IOM ([place] of [employer]). 2010. Dietary reference intakes for calcium and D. [place]: The National Academies Press.2. Yanna MF, Marla NC, Xander EDGAR, et al. Evaluation, treatment, and prevention of vitamin D deficiency: an Endocrine Society clinical practice guideline. JCEM. 2010; 96(7):1911-30. 46-Nsb-34135:55 PSA (Prostate Specific Comments: PATIENT WAS FASTINGPERFORMED BY: [employer] [id number] BY: [employer] Wpxevz0695 [facility] [id number] Antigen), Screening (38179) Prostate Specific Ag, 1.2 ng/mL (Normal) Range: 0.0-4.0 Serum Comments: [employer] ECLIA methodology. .According to the [place] Urological Association, Serum PSA shoulddecrease and remain at undetectable levels after radicalprostatectomy. The AUA defines biochemical recurrence as an initialPSA value 0.2 ng/mL or greater followed by a subsequent confirmatoryPSA value 0.2 ng/mL or greater.Values obtained with d ifferent assay methods or kits cannot be usedinterchangeably. Results cannot be interpreted as absolute evidenceof the presence or absence of malignant disease. 50-Knr-527196:38 Blood Glucose , Office (80320) Blood Glucose , Office 160 (Normal) 35-Mfb-353489:00 CBC WITH MANUAL DIFF Comments: PATIENT NOT FASTINGPERFORMED BY: Arno TherapeuticsJefferson Stratford Hospital [facility])Nqfoib9976 [facility] [id number] BY: CIDCO[address] [id number] Inf ormation: NURSE DRAW (81019) Immature Grans (Abs) 0.0 {x10E3/uL} (Normal) Range: [...] 4.14-5.80 WBC 5.9 {x10E3/uL} (Normal) Range: 3.4-10.8 05-Fek-144540:00 Vitamin B-12 Comments: PATIENT NOT FASTINGPERFORMED BY: [employer] [facility] [id number] BY: [employer] [id number] (cyanocobalamin) (35613) Vitamin B12 529 pg/mL (Normal) Range: 211-946 73-Sry-518569:00 Methymalonic Acid, Serum Comments: PATIENT NOT FASTINGPERFORMED BY: BeanJockeyDonald [place] 3241270 [facility] [id number] BY: [employer] [id number] (86108) Methylmalonic Acid, Serum 284 nmol/L (Normal) Range: 0-378 78-Dow-276152:59 ANCA-C (ANTI NEUTROPHIL Comments: copy to Dr. [phone] all these now; PATIENT WAS FASTINGPERFORMED BY: [employer] [id number] BY: LabHostel RocketJefferson Stratford Hospital [facility])Ypmlza4003 [place] [facility] [id number] CYTOPLASMIC ANTIBODY) Atypical pANCA <1:20 {titer} Comments: [...] follow up testing ofpositive sera with both DE-3 and MPO-ANCA enzyme immunoassays. Asmany as 5% serum samp les are positive only by EIA.Ref. AM J Clin Pathol 1999;111:507-513. Cytoplasmic (C-ANCA) <1:20 {titer} (Normal) Antiproteinase 3 (DE-3) Abs <3.5 U/mL (Normal) Range: 0.0-3.5 Antimyeloperoxidase (MPO) Abs <9.0 U/mL (Normal) Range: 0.0-9.0 86-Ern-035076:59 Renal function Panel Comments: now; PATIENT WAS FASTINGPERFORMED BY: LabHostel RocketKindred Hospital at RahwayTpcltxntwp4202 [facility] [id number] BY: LabHostel RocketJefferson Stratford Hospital [facility])Sferpy2755 [facility] [id number] (89573) Albumin, Serum 4.1 g/dL (Normal) Range: 3.5-4.8 [...] Glucose, Serum 166 mg/dL (Abnormal) Range: 65-99 89-Ana-526425:59 LIPOPROTEIN, BLD, BY NMR Comments: now; PATIENT WAS FASTINGPERFORMED BY: BN [facility] Xofussoeze4647 [facility] [id number] BY: CB [facility] Emccsx4759 [facility] [id number] (39781) LP-IR Score 39 (Normal) Comments: INSULIN RESISTANCE MARKER <--Insulin Sensitive Insulin Resistant--> Percentile in Reference PopulationInsulin Resistance ScoreLP-IR Score Low 25th 50th 75th High <27 27 45 63 >63LP-IR Score is inaccurate if patient is non-fasting. .The LP-IR score is a laboratory developed i [facility] that has beenassociated with insulin resistance and [...] were developed and their performance characteristicsdetermined by [employer]. These assays have not been cleared by [...] 1600 - 2000 Very High > 2000 37-Hru-896128:59 TSH (11266) Comments: PATIENT WAS FASTINGPERFORMED BY: Quandorarp Fesfpylhme6375 [facility] [id number] BY: [employer] Bywyqs9999 [facility] [id number] TSH 2.960 {uIU/mL} (Normal) Range: 0.450-4.500 27-Rft-948802:59 COMPLEMENT C4 (65145) Comments: PATIENT WAS FASTINGPERFORMED BY: [employer] [id number] BY: [employer] Communications Tawqjs0537 [address] [facility]in [place] [id number] Complement C4, Serum 32 mg/dL (Normal) Range: 14-44 60-Mrx-103735:59 COMPLEMENT C3 (87780) Comments: PATIENT WAS FASTINGPERFORMED BY: Effector Therapeuticston1447 [facility] [id number] BY: [employer] LabA[employer] Communications Qiynrz2872 [facility] [id number] Complement C3, Serum 137 mg/dL (Normal) Range: 82-167 17-Hfg-237006:59 MICROALBUMIN: CREATININE Comments: PATIENT WAS FASTINGPERFORMED BY: [employer] [id number] BY: Arno TherapeuticsJefferson Stratford Hospital ([facility])Lxtnjl4627 [facility] [id number] RATIO (52681) AND (24963) Microalb/Creat Ratio 118.3 {mg/g_creat} (Abnormal) Range: 0.0-30.0 Microalbumin, Urine 52.3 ug/mL (Normal) Creatinine, Urine 44.2 mg/dL (Normal) 60-Mkc-786997:59 SPEP (07746) Comments: PATIENT WAS FASTINGPERFORMED BY: [employer] [id number] BY: Arno TherapeuticsJefferson Stratford Hospital ([facility])Ivjyng1236 [facility] [id number] Please note: SPRCS (Normal) Comments: Protein electrophoresis scan will follow via computer, mail, orcourier delivery. A/G Ratio 1.2 (Normal) Range: 0.7-1.7 Globulin, Total 3.1 g/dL (Normal) Range: 2.2-3.9 M-Maxime Not Observed g/dL (Normal) Gamma Globulin 0.9 g/dL (Normal) Range: 0.4-1.8 Beta Globulin 1.1 g/dL (Normal) Range: 0.7-1.3 Ztipq-1-Jhcaweyw 0.9 g/dL (Normal) Range: 0.4-1.0 Vkjkc-6-Kxldhyqn 0.2 g/dL (Normal) Range: 0.0-0.4 Albumin 3.7 g/dL (Normal) Range: 2.9-4.4 Protein, Total, Serum 6.8 g/dL (Normal) Range: 6.0-8.5 03-Awx-254216:59 DNA ANTIBODY-NATV/DBL ST Comments: PATIENT WAS FASTINGPERFORMED BY: [employer] [id number] BY: Arno TherapeuticsDonald [place] 3241270 [facility] [id number] (55988) test code 299771 Anti-DNA (DS) Ab Qn <1 {IU/mL} (Normal) Range: 0-9 Comments: Negative <5 Equivocal 5 - 9 Positive >9 05-Nkr-759037:28 Alcohol, Blood (Medical)-Serum Comments: [facility] [address] [place], [address] SERUM ETOH < 3.0 mg/dL (Normal) Comments: The serum:whole blood ethanol ratio is approximately 1.14and varies slightly with hematocrit.Medical Alcohol reference interval and critical value innon-tolerant individuals; 50 - 100 Impairment 100 Intoxication 100 - 250 Severe Poisoning 250 - 400 Deep/possible fatal coma 79-Ngg-094543:28 CBC W/Diff, Automated Comments: [facility] [address] [place], [place], [address] Absolute Lymph 1.85 {X10_3/ul} (Normal) Range: 0.83-4.51 [...] 4.6-6.2 WBC 7.1 K/mm3 (Normal) Range: 4.4-11.0 91-Ixf-424589:28 Comprehensive Metabolic Profil Comments: [facility] Ttgqfvmnld[address] [place], [place], [address] GAP 10 (Normal) Range: 5-15 CO2 29.0 [...] 126 mg/dLsuggests DIABETES MELLITUS per A.D.A. criteria. 26-Mdi-382366:28 Troponin-I Comments: 'TROP' Serial specimen #1, #2, #3, or #4: 1[facility] [address]obv[address] [place], [address] TROPONIN-I 0.03 ng/mL (Normal) Comments: TROPONIN-I EXPECTED VALUES <0.05 NEGATIVE 0.06 - 0.59 AT RISK OF MA > OR = 0.60 SUGGEST MA 51-Jtl-869954:08 HgA1C , Office (58547) HgA1C , Office 6.8 % (Normal) Range: 4.6 - 7.1 :59 Metabolic Panel, Basic (82602) Comments: recheck in one week; PATIENT WAS FASTINGPERFORMED BY: [facility]zzBlue [facility] [id number] Calcium, Serum 8.5 mg/dL (Abnormal) Range: 8.6-10.2 [...] Glucose, Serum 136 mg/dL (Abnormal) Range: 65-99 07-Uah-488946:20 CBC (Auto) (41635) Comments: PATIENT NOT FASTINGPERFORMED BY: [employer] LabCoHot PotatoBlue Ridge Regional Hospital [id number] Platelets 183 {x10E3/uL} (Normal) Range: 150-379 RDW 13.6 % (Normal) Range: 12.3-15.4 MCHC 34.8 g/dL (Normal) Range: 31.5-35.7 MCH 34.1 pg (Abnormal) Range: 26.6-33.0 MCV 98 fL (Abnormal) Range: 79-97 Hematocrit 40.5 % (Normal) Range: 37.5-51.0 Hemoglobin 14.1 g/dL (Normal) Range: 12.6-17.7 RBC 4.13 {x10E6/uL} (Abnormal) Range: 4.14-5.80 WBC 7.9 {x10E3/uL} (Normal) Range: 3.4-10.8 28-Wfd-700448:20 Magnesium (13352) Comments: PATIENT NOT FASTINGPERFORMED BY: LabCoJefferson [facility])Wroryr6180 [facility] [id number] Magnesium, Serum 2.2 mg/dL (Normal) Range: 1.6-2.3 48-Aqn-879944:20 Renal function Panel (64811) Comments: PATIENT NOT FASTINGPERFORMED BY: LabCoJefferson [facility])Ueprgl8048 [facility] [id number] Albumin, Serum 4.2 g/dL (Normal) Range: 3.5-4.8 [...] Glucose, Serum 266 mg/dL (Abnormal) Range: 65-99 51-Zuj-863470:54 Basic Metabolic Profile (BMP) Comments: Order Date: 12/25/16Order Info: 0667-1 - *BMPOrder Info: 51653-3 - *MagnesiumOrder Date: 12/25/16Order Info: - *MagnesiumComments: Reason:[facility] Cxiorfoeum[address] [place], [address] GAP 11 (Normal) Range: 5-15 CO2 30.0 [...] 200 mg/dLsuggests DIABETES MELLITUS per A.D.A. criteria. 43-Ymz-904175:54 Magnesium Comments: Order Date: 12/25/16Order Info: 0667-1 - *BMPOrder Info: - *MagnesiumOrder Date: 12/25/16Order Info: - *MagnesiumComments: Reason:[facility] [address] [place], [address] MG 2.0 mg/dL (Normal) Range: 1.8-2.4 11-Nqw-951093:35 Basic Metabolic Profile (BMP) Comments: Order Date: 12/18/16Order Info: 0667-1 - *BMPOrder Info: - *MagnesiumComments: For [place] episodeOrder Info: 3026-2 - *T4 (Total)Comments: Reason: For [place] episoeOrder Info: 3016-3 - *TSHComments: [place] son: For [place] episodeOrder Date: 02/20/17Order Info: 3016-3 - *TSHComments: Reason: For [facility] [address]rx[address] [place], [address] GAP 12 (Normal) Range: 5-15 [...] 200 mg/dLsuggests DIABETES MELLITUS per A.D.A. criteria. 27-Rbg-864628:35 CBC-Complete Blood Cnt No Diff Comments: Order Date: 12/18/16Order Info: 3016-3 - *TSHComments: Reason: For [facility] [address]uqefnv[address] [place], [place], [address] MPV 10.7 fL (Normal) Range: 6.2-12.0 PLT [...] 4.6-6.2 WBC 8.1 K/mm3 (Normal) Range: 4.4-11.0 15-Nfh-031882:35 Magnesium Comments: Order Date: 12/18/16Order Info: 666-1 - *BMPOrder Info: - *MagnesiumComments: For [place] episodeOrder Info: 3026-2 - *T4 (Total)Comments: Reason: For [place] episoeOrder Info: 301-3 - *TSHComments: [place] son: For [place] episodeOrder Date: 12/18/16Order Info: 3015-3 - *TSHComments: Reason: [facility] [place] episode[facility] [address]fkcpief[address] [place], [place], [address](866) MG 2.0 mg/dL (Normal) Range: 1.8-2.4 93-Szl-716781:35 T4 Total, Thyroxin Comments: Order Date: 12/18/16Order Info: 666- - *BMPOrder Info: - *MagnesiumComments: For [place] episodeOrder Info: 3026-2 - *T4 (Total)Comments: Reason: For [place] episoeOrder Info: 3015-3 - *TSHC omments: [place] son: For [place] episodeOrder Date: 12/18/16Order Info: 3016-3 - *TSHComments: Reason: For [place] episodeWMari[facility] [address]xipstg[address] [place], [place], [address] T4 THYROXIN 11.3 ug/dL (Normal) Range: 4.5-12.1 37-Cgr-653946:35 Thyroid Stim Hormone (TSH) Comments: Order Date: 12/18/16Order Info: 666-1 - *BMPOrder Info: - *MagnesiumComments: For [place] episodeOrder Info: 3026-2 - *T4 (Total)Comments: Reason: For [place] episoeOrder Info: 3016-3 - *TSHComments: [place] son: For [place] episodeOrder Date: 12/18/16Order Info: 3015-3 - *TSHComments: Reason: For [place] episodeWMarietta Oste[facility] [address] [place], [address] TSH 0.86 {uIU/mL} (Normal) Range: 0.358-3.74 6-Hww-611403:05 PSA (Prostate Specific Comments: PATIENT NOT FASTINGPERFORMED BY: LabCoDonald Ville 3241270 [facility] [id number] Information: [id number] NURSE DRAW Antigen), Screening (01748) Prostate Specific Ag, 1.0 ng/mL (Normal) Range: 0.0-4.0 Serum Comments: [employer] ECLIA methodology. .According to the [place] Urological Association, Serum PSA shoulddecrease and remain at undetectable levels after radicalprostatectomy. The AUA defines biochemical recurrence as an initialPSA value 0.2 ng/mL or greater followed by a subsequent confirmatoryPSA value 0.2 ng/mL or greater.Values obtained with d ifferent assay methods or kits cannot be usedinterchangeably. Results cannot be interpreted as absolute evidenceof the presence or absence of malignant disease. 98-Hyl-086354:01 Metabolic Panel, Basic Comments: copy to Dr. hu; PATIENT NOT FASTINGPERFORMED BY: LabHillsdale Hospital6370 [facility] [id number] Information: [id number] (41623) Calcium, Serum 9.3 mg/dL (Normal) Range: 8.6-10.2 [...] Glucose, Serum 192 mg/dL (Abnormal) Range: 65-99 31-Vun-395539:49 BNTP (24359) Comments: PATIENT NOT FASTINGPERFORMED BY: LabCoJefferson [facility])Zzyuoh6829 [facility] [id number] Information: [id number] B-Type Natriuretic Peptide 273.9 pg/mL (Abnormal) Range: 0.0-100.0 8-Nhr-002353:01 HgA1C , Office (38536) HgA1C , Office 6.1 % (Normal) Range: 4.6 - 7.1 11-Kud-624203:02 Basic Metabolic Profile (BMP) Comments: [facility] [address] [place], [address] GAP 6 (Normal) Range: 5-15 CO2 26.0 [...] 126 mg/dLsuggests DIABETES MELLITUS per A.D.A. criteria. :02 BNP,B-Type NATRIURETIC PEPTIDE Comments: [facility] [address] [place], [address] B-TYPE JUSTIN PEP 261.3 pg/mL (Abnormal) Range: 0-100 26-Mil-600240:22 TSH (65180) Comments: PATIENT NOT FASTINGPERFORMED BY: [facility] Dullrz1943 [facility] [id number] TSH 3.740 {uIU/mL} (Normal) Range: 0.450-4.500 06-Ebh-338034:22 METABOLIC PANEL, COMPREHENSIVE Comments: PATIENT NOT FASTINGPERFORMED BY: [facility]6370 [facility] [id number] (78445) ALT (SGPT) 19 [iU]/L (Normal) Range: 0-44 [...] Glucose, Serum 155 mg/dL (Abnormal) Range: 65-99 52-Hqf-654043:22 CBC W/AUTO DIFF WBC Comments: PATIENT NOT FASTINGPERFORMED BY: [facility]6370 [facility] [id number] Information: [id number]; [address] (01893) Immature Grans (Abs) 0.0 {x10E3/uL} (Normal) Range: [...] 4.14-5.80 WBC 7.6 {x10E3/uL} (Normal) Range: 3.4-10.8 14-Duy-974353:57 HgA1C , Office (49908) HgA1C , Office 7.1 % (Normal) Range: 4.6 - 7.1 :13 Lipid Profile Comments: [facility] [address] [place], [place], [address](437) VLDL 78 mg/dL (Abnormal) Range: 5-40 LDL [...] mg/dL High Risk :13 Liver Profile Comments: [facility] [address]sw[address] [place], [address] D BILI 0.10 mg/dL (Normal) Range: 0.00-0.30 T BILI 0.40 mg/dL (Normal) Range: 0.20-1.00 ALT 30 U/L (Normal) Range: 12-78 ALK P 99 U/L (Normal) Range: 50-136 AST 23 U/L (Normal) Range: 15-37 GLOB 3.6 g/dL (Abnormal) Range: 2.3-3.5 ALB 3.3 g/dL (Abnormal) Range: 3.4-5.0 T PROT 6.9 g/dL (Normal) Range: 6.4-8.2 03-Iuo-976279:33 Blood Glucose , Office (75265) Blood Glucose , Office 184 (Normal) Comments: told to stop juices and tighten diet 55-Mgc-75368:25 METABOLIC PANEL, BASIC Comments: PATIENT NOT FASTINGPERFORMED BY: [facility] Covcdw9321 [facility] [id number] Information: [id number]; apt. 10-26-15 creat stayed same (35746) Calcium, Serum 9.0 mg/dL (Normal) Range: 8.6-10.2 [...] Glucose, Serum 127 mg/dL (Abnormal) Range: 65-99 00-Hna-697906:26 Metabolic Panel, Basic Comments: standing order; PATIENT NOT FASTINGPERFORMED BY: [employer]70 [facility] [id number] Information: [id number] (36226) Calcium, Serum 9.1 mg/dL (Normal) Range: 8.6-10.2 [...] Glucose, Serum 338 mg/dL (Abnormal) Range: 65-99 78-Xkd-497030:36 CULTURE, SPUTUM (91423) Comments: PATIENT NOT FASTINGPERFORMED BY: Sava Transmedialin6370 [facility] [id number] Information: SRC:[facility] [id number] Result 1 RRF (Normal) Comments: Routine respiratory liu Lower Respiratory Culture Final report (Normal) :31 HgA1C , Office (07936) HgA1C , Office 6.4 % (Normal) Range: 4.6 - 7.1 :31 Blood Glucose , Office (26090) Blood Glucose , Office 282 (Normal) :38 PSA (PROSTATE SPECIFIC Comments: PATIENT NOT FASTINGPERFORMED BY: Sava Transmedialin6370 [facility] [id number] ANTIGEN) (V76.44) Prostate Specific Ag, 1.0 ng/mL (Normal) Range: 0.0-4.0 Serum Comments: Erik ECLIA methodology. .According to the [place] U[employer] Association, Serum PSA shoulddecrease and remain at undetectable levels after radicalprostatectomy. The AUA defines biochemical recurrence as an initialPSA value 0.2 ng/mL or greater followed by a subsequent confirmatoryPSA value 0.2 ng/mL or greater.Values obtained with d ifferent assay methods or kits cannot be usedinterchangeably. Results cannot be interpreted as absolute evidenceof the presence or absence of malignant disease. :38 TSH (50405) Comments: PATIENT NOT FASTINGPERFORMED BY: [employer] [facility] Blmwri9188 [address] [facility]blin [place] [id number] TSH 4.310 {uIU/mL} (Normal) Range: 0.450-4.500 :38 Magnesium (15295) Comments: PATIENT NOT FASTINGPERFORMED BY: [facility] Bmbapz6037 [address] [facility] HospitalD[facility] [place] [id number] Magnesium, Serum 1.9 mg/dL (Normal) Range: 1.6-2.6 :38 Metabolic Panel, Comments: PATIENT NOT FASTINGPERFORMED BY: [facility] Xqbffc4147 [address] [facility] [place] [id number] Information: [id number]; [address] 07-[address]-15 [facility] (65314) ALT (SGPT) 28 [iU]/L (Normal) Range: 0-44 [...] (Abnormal) Range: 65-99 :08 HgA1C , Office (03705) HgA1C , Office 6.5 % (Normal) Range: 4.6 - 7.1 :08 Blood Glucose , Office (06854) Blood Glucose , Office 277 (Normal) :52 CBC, Platelet, No Differential Comments: PATIENT WAS FASTINGPERFORMED BY: Sava Transmedialin6370 [facility] [id number] Platelets 184 {x10E3/uL} (Normal) Range: 150-379 RDW 14.1 % (Normal) Range: 12.3-15.4 MCHC 34.2 g/dL (Normal) Range: 31.5-35.7 MCH 33.7 pg (Abnormal) Range: 26.6-33.0 MCV 99 fL (Abnormal) Range: 79-97 Hematocrit 40.3 % (Normal) Range: 37.5-51.0 Hemoglobin 13.8 g/dL (Normal) Range: 12.6-17.7 RBC 4.09 {x10E6/uL} (Abnormal) Range: 4.14-5.80 WBC 8.2 {x10E3/uL} (Normal) Range: 3.4-10.8 :52 Renal Panel (10) Comments: PATIENT WAS FASTINGPERFORMED BY: BeanJockeyJefferson [facility])Lwdova8063 [facility] [id number] Information: [id number] Albumin, Serum 4.1 g/dL (Normal) Range: 3.5-4.8 [...] 65-99 :05 Lipid Profile Comments: Test performed at:[facility] [address] [place] [address] [id number] VLDL 35 mg/dL (Normal) Range: 5-40 LDL [...] Risk :05 Liver Profile Comments: Test performed at:[facility] Xqgxiusygf9894 [place], [place] 34[address] D BILI 0.20 mg/dL (Normal) Range: 0.00-0.30 T BILI 0.70 mg/dL (Normal) Range: 0.00-4.00 ALT 27 U/L (Normal) Range: 12-78 ALK P 80 U/L (Normal) Range: 50-136 AST 26 U/L (Normal) Range: 15-37 GLOB 3.4 g/dL (Normal) Range: 2.7-4.2 ALB 3.7 g/dL (Normal) Range: 3.4-5.0 T PROT 7.1 g/dL (Normal) Range: 6.4-8.2 34-Ojn-033186:47 Vitamin B-12 Comments: these today; PATIENT NOT FASTINGPERFORMED BY: [employer] Pmxidl2708 [address] [facility] [id number] BY: [employer] [id number] (cyanocobalamin) (64825) Vitamin B12 526 pg/mL (Normal) Range: 211-946 36-Lxp-973527:47 RETICULOCYTE COUNT (56667) Comments: PATIENT NOT FASTINGPERFORMED BY: R-Squared70 [facility] [id number] BY: [employer] [id number] Reticulocyte Count 2.1 % (Normal) Range: 0.6-2.6 60-Vcy-281608:47 Folic Acid Serum (58455) Comments: PATIENT NOT FASTINGPERFORMED BY: R-Squared70 [facility] [id number] BY: [employer] [id number] Information: [id number] Folate (Folic Acid), Serum >20.0 ng/mL (Normal) Comments: A serum folate concentration of less than 3.1 ng/mL isconsidered to represent clinical deficiency. 74-Zcf-102425:47 Methymalonic Acid, Serum Comments: PATIENT NOT FASTINGPERFORMED BY: [employer] Nkhilx4232 [facility] [id number] BY: [employer] [id number] ([id number]) Methylmalonic Acid, Serum 219 nmol/L (Normal) Range: 0-378 56-Cke-49135:42 HgA1C , Office (01980) HgA1C , Office 6.5 % (Normal) Range: 4.6 - 7.1 :42 Blood Glucose , Office (75003) Blood Glucose , Office 194 (Normal) :13 Basic Metabolic Profile (BMP) Comments: Test performed at:[facility] [id number] [facility] [place] [address] GAP 8 (Normal) Range: 5-15 CO2 28.0 [...] 126 mg/dLsuggests DIABETES MELLITUS per A.D.A. criteria. :22 Basic Metabolic Profile (BMP) Comments: Test performed at:[facility] [id number] [facility]. [place], [place] [address] GAP 6 (Normal) Range: 5-15 CO2 29.0 [...] 126 mg/dLsuggests DIABETES MELLITUS per A.D.A. criteria. :22 BNP,B-Type NATRIURETIC PEPTIDE Comments: Test performed at:[facility] [address] [place] [address] B-TYPE JUSITN PEP 337.5 pg/mL (Abnormal) Range: 0-100 62-Ymj-686774:19 Magnesium (94949) Comments: 2 weeks and in three months (approximately); PATIENT WAS FASTINGPERFORMED BY: [facility] Ocetst5099 [facility] [id number] Magnesium, Serum 1.9 mg/dL (Normal) Range: 1.6-2.6 10-Joa-973870:19 Renal function Panel (94896) Comments: 2 weeks; PATIENT WAS FASTINGPERFORMED BY: [facility] Cqypja3302 [facility] [id number] Phosphorus, Serum 3.2 mg/dL (Normal) Range: 2.5-4.5 60-Dkz-760460:19 TSH (04027) Comments: PATIENT WAS FASTINGPERFORMED BY: [facility] Ohxhrw1480 [facility] [id number] TSH 2.460 {uIU/mL} (Normal) Range: 0.450-4.500 33-Axy-140631:19 METABOLIC PANEL, COMPREHENSIVE Comments: PATIENT WAS FASTINGPERFORMED BY: [facility] Vuykrr4310 [facility] [id number] (66233) ALT (SGPT) 21 [iU]/L (Normal) Range: 0-44 [...] Glucose, Serum 131 mg/dL (Abnormal) Range: 65-99 95-Tho-085131:19 LIPID PANEL (76259) Comments: PATIENT WAS FASTINGPERFORMED BY: [employer] [facility] [id number] LDL/HDL Ratio 0.7 {ratio_units} (Normal) Range: 0.0-3.6 [...] Cholesterol, Total 118 mg/dL (Normal) Range: 100-199 13-Bza-596164:19 CBC W/AUTO DIFF WBC Comments: PATIENT WAS FASTINGPERFORMED BY: R-Squared70 [facility] [id number] Information: [id number] (34396) Immature Grans (Abs) 0.0 {x10E3/uL} (Normal) Range: [...] Range: 3.4-10.8 :38 Blood Glucose , Office (12681) Blood Glucose , Office 229 (Normal) :38 HgA1C , Office (74424) HgA1C , Office 6.7 % (Normal) Range: 4.6 - 7.1 :23 Basic Metabolic Profile (BMP) Comments: Test performed at:[facility] [address]vgw[address]ze[address] [place], [place] [id number] GAP 6 (Normal) Range: 5-15 CO2 28.0 [...] 126 mg/dLsuggests DIABETES MELLITUS per A.D.A. criteria. 79-Qky-689297:23 BNP,B-Type NATRIURETIC PEPTIDE Comments: Test performed at:[facility] [address]abqmlcal[address] [place], [place] [address] B-TYPE JUSTIN PEP 348.7 pg/mL (Abnormal) Range: [...] :58 BTNP 261.6 pg/mL (Abnormal) Range: 0-100 68-Nxb-176946:47 CBC (Auto) (34300) Comments: PATIENT NOT FASTINGPERFORMED BY: [facility] Wutzro9932 [facility] [id number] Platelets 165 {x10E3/uL} (Normal) Range: 150-379 RDW 13.9 % (Normal) Range: 12.3-15.4 MCHC 34.3 g/dL (Normal) Range: 31.5-35.7 MCH 33.8 pg (Abnormal) Range: 26.6-33.0 MCV 99 fL (Abnormal) Range: 79-97 Hematocrit 38.5 % (Normal) Range: 37.5-51.0 Hemoglobin 13.2 g/dL (Normal) Range: 12.6-17.7 RBC 3.91 {x10E6/uL} (Abnormal) Range: 4.14-5.80 WBC 6.7 {x10E3/uL} (Normal) Range: 3.4-10.8 71-Iml-803992:47 Renal function Panel Comments: PATIENT NOT FASTINGPERFORMED BY: [facility]Yktfty3809 [facility] [id number] Information: [id number] (92826) Albumin, Serum 4.0 g/dL (Normal) Range: 3.5-4.8 [...] Glucose, Serum 144 mg/dL (Abnormal) Range: 65-99 28-Vxy-517868:47 MAGNESIUM (66771) Comments: PATIENT NOT FASTINGPERFORMED BY: [facility]Ziypsq5587 [facility] [id number] Magnesium, Serum 1.7 mg/dL (Normal) Range: 1.6-2.6 94-Oea-81213:28 HgA1C , Office (43288) HgA1C , Office 6.6 % (Normal) Range: 4.6 - 7.1 :28 Blood Glucose , Office (29857) Blood Glucose , Office 148 (Normal) :54 [...] CHOL 130 mg/dL (Normal) Comments: <200 mg/dL Lgybdfejn379-175 mg/dL Borderline>240 mg/dL High Risk HDL 62 [...] performed using the TPSA assay method for [employer] chemistry system. Values obtained with differentassay methods [...] CMP MIAMAG ADDED PER REQUEST Range: 0.358-3.74 58-Chu-048565:13 BMP GAP 7 (Normal) Range: 5-15 CO2 [...] 126 mg/dLsuggests DIABETES MELLITUS per A.D.A. criteria. 33-Klq-84453:37 Metabolic Panel, Basic Comments: recheck in 1-2 weeks; PATIENT NOT FASTINGPERFORMED BY: [place] 7783570 [facility] [id number] Information: [id number] (18236) Calcium, Serum 8.7 mg/dL (Normal) Range: 8.6-10.2 [...] Glucose, Serum 161 mg/dL (Abnormal) Range: 65-99 66-Juo-823538:00 BNTP (23335) Comments: PATIENT NOT FASTINGPERFORMED BY: [address] [id number] Information: [id number] ORDER NO DRAW F EE B-Type Natriuretic Peptide 899.8 pg/mL (Abnormal) Range: 0.0-100.0 52-Yfb-337086:14 CULTURE, SPUTUM (61877) Comments: PATIENT NOT FASTINGPERFORMED BY: [address] [id number] Result 1 RRF (Normal) Comments: Routine respiratory liu Lower Respiratory Culture Final report (Normal) 21-Qqy-732396:00 Metabolic Panel, Basic Comments: PATIENT NOT FASTINGPERFORMED BY: [address] [id number] Information: [id number] (97111) Calcium, Serum 8.6 mg/dL (Normal) Range: 8.6-10.2 [...] Glucose, Serum 129 mg/dL (Abnormal) Range: 65-99 15-Pcj-094551:22 CBC WITH MANUAL DIFF Comments: all copies of labs to Dr. hu; PATIENT WAS FASTINGPERFORMED BY: [facility] Zircvz0709 [facility] [id number] Information: [id number] (75314) Immature Grans (Abs) 0.0 {x10E3/uL} (Normal) Range: [...] 4.14-5.80 WBC 7.7 {x10E3/uL} (Normal) Range: 3.4-10.8 99-Bdg-778171:22 MICROALBUMIN: CREATININE RATIO Comments: PATIENT WAS FASTINGPERFORMED BY: [facility] TherapeuticsJeff[facility])Dlntxn2009 [facility] [id number] (00431) AND (23316) Microalb/Creat Ratio 135.4 {mg/g_creat} (Abnormal) Range: 0.0-30.0 Creatinine, Urine 126.0 mg/dL (Normal) Range: 22.0-328.0 Microalbumin, Urine 170.6 ug/mL (Abnormal) Range: 0.0-17.0 16-Qwf-058683:22 METABOLIC PANEL, COMPREHENSIVE Comments: PATIENT WAS FASTINGPERFORMED BY: [facility]Jeff[facility])Dkcgyu5882 [facility] [id number] (24313) ALT (SGPT) 14 [iU]/L (Normal) Range: 0-44 [...] mg/dL (Abnormal) Range: 65-99 :22 LIPID PANEL (11780) Comments: PATIENT WAS FASTINGPERFORMED BY: [employer] [facility] [id number] LDL/HDL Ratio 0.8 {ratio_units} (Normal) Range: 0.0-3.6 LDL Cholesterol Calc 40 mg/dL (Normal) Range: 0-99 VLDL Cholesterol Mike 27 mg/dL (Normal) Range: 5-40 HDL Cholesterol 53 mg/dL (Normal) Comments: According to ATP-III Guidelines, HDL-C >59 mg/dL is considered anegative risk factor for CHD. Triglycerides 134 mg/dL (Normal) Range: 0-149 Cholesterol, Total 120 mg/dL (Normal) Range: 100-199 :22 TSH (14142) Comments: PATIENT WAS FASTINGPERFORMED BY: R-Squared70 [facility] [id number] TSH 3.630 {uIU/mL} (Normal) Range: 0.450-4.500 :34 Blood Glucose , Office (07539) Blood Glucose , Office 164 (Normal) :34 HgA1C , Office (79544) HgA1C , Office 6.4 % (Normal) Range: 4.6 - 7.1 :31 LIPID PANEL (25902) Comments: copy all labs to [facility]; PATIENT WAS FASTINGPERFORMED BY: [employer] Ciefts8905 [facility] [id number] LDL/HDL Ratio 0.9 {ratio_units} (Normal) Range: 0.0-3.6 [...] (PROSTATE SPECIFIC Comments: PATIENT WAS FASTINGPERFORMED BY: R-Squared70 [facility] [id number] ANTIGEN) (V76.44) Prostate Specific Ag, 1.3 ng/mL (Normal) Range: 0.0-4.0 Serum Comments: ShipuIA methodology. .According to the [place] [employer], Serum PSA shoulddecrease and remain at undetectable levels after radicalprostatectomy. The AUA defines biochemical recurrence as an initialPSA value 0.2 ng/mL or greater followed by a subsequent confirmatoryPSA value 0.2 ng/mL or greater.Values obtained with d ifferent assay methods or kits cannot be usedinterchangeably. Results cannot be interpreted as absolute evidenceof the presence or absence of malignant disease. :31 TSH (70006) Comments: PATIENT WAS FASTINGPERFORMED BY: [employer] Dksrus8156 [facility] [id number] TSH 3.240 {uIU/mL} (Normal) Range: 0.450-4.500 :31 MICROALBUMIN: CREATININE RATIO Comments: PATIENT WAS FASTINGPERFORMED BY: [employer] Sxqgsr5467 [facility] [id number] (69092) AND (68685) Microalb/Creat Ratio 51.5 {mg/g_creat} (Abnormal) Range: 0.0-30.0 Microalbumin, Urine 104.3 ug/mL (Abnormal) Range: 0.0-17.0 Creatinine, Urine 202.4 mg/dL (Normal) Range: 22.0-328.0 :31 METABOLIC PANEL, COMPREHENSIVE Comments: PATIENT WAS FASTINGPERFORMED BY: SLAVA [employer] Srjhay2283 [facility] [id number] (67708) ALT (SGPT) 13 [iU]/L (Normal) Range: 0-44 [...] MANUAL DIFF Comments: PATIENT WAS FASTINGPERFORMED BY: [employer] Zrillo5963 [facility] [id number] Information: ADD [id number] AND DRAW FEE 99 6730 (89413) Immature Grans (Abs) 0.0 {x10E3/uL} (Normal) Range: [...] interval change :42 Blood Glucose , Office (40155) Blood Glucose , Office 171 (Normal) 15-Bdh-564426:41 HgA1C , Office (82245) HgA1C , Office 6.1 % (Normal) Range: 4.6 - 7.1 80-Iro-521824:36 CHEST, PA AND LATERAL Radiology Report See [...] Sue M.D.December 11, 2012 at 4:00:01 PM [id number] Signed GP/GP If you are the referring physician and would like to consult with theradiologist who provided this interpretation, please contact James Trejo at . If this radiologist is unavailable, youwill be directed to another radiologist to assist. If you are a patient with a question regarding this report, pleasecontactyour referring physician directly. Professional Interpretation Provided By: [employer], Phone , These documents contain legally protected [...] documents. Dictated on 12/11/12 1533 by Tosin ROGERS,GabrieleTranscribed on 12/11/12 1604 by ITS IMPORTSign by Tosin ROGERS,Louis on 12/11/12 1605 Sign by: Louis Sue MD 24-Hje-85451:56 CBC, Platelets & Auto Diff Comments: PATIENT NOT FASTINGPERFORMED BY: [facility]Ashrfv0971 [facility] [id number] Information: [id number] (55250) Immature Grans (Abs) 0.0 {x10E3/uL} (Normal) Range: [...] (Normal) Range: 4.0-10.5 :56 Metabolic Panel, Basic (59056) Comments: PATIENT NOT FASTINGPERFORMED BY: [facility]6370 [facility] [id number] Calcium, Serum 9.5 mg/dL (Normal) Range: 8.6-10.2 [...] Range: 65-99 :03 Blood Glucose , Office (79594) Blood Glucose , Office 185 (Normal) :03 HgA1C , Office (99483) HgA1C , Office 5.6 % (Normal) Range: 4.6 - 7.1 0-Svq-871993:36 CBC WITH MANUAL DIFF Comments: send cardiology Dr. hu; PATIENT WAS FASTINGPERFORMED BY: [facility])Ymqtzo0698 [facility] [id number] Information: [id number] (78886) Immature Grans (Abs) 0.0 {x10E3/uL} (Normal) Range: [...] 4.14-5.80 WBC 10.9 {x10E3/uL} (Abnormal) Range: 4.0-10.5 4-Gjv-636604:36 MICROALBUMIN: CREATININE RATIO Comments: PATIENT WAS FASTINGPERFORMED BY: [facility])Cescol9092 [facility] [id number] (24749) AND (43863) Microalb/Creat Ratio 37.8 {mg/g_creat} (Abnormal) Range: 0.0-30.0 Creatinine, Urine 138.0 mg/dL (Normal) Range: 22.0-328.0 Microalbumin, Urine 52.1 ug/mL (Abnormal) Range: 0.0-17.0 5-Jhg-749969:36 METABOLIC PANEL, COMPREHENSIVE Comments: PATIENT WAS FASTINGPERFORMED BY: [facility])Zcxjij3112 [facility] [id number] (99990) ALT (SGPT) 17 [iU]/L (Normal) Range: 0-44 [...] Glucose, Serum 109 mg/dL (Abnormal) Range: 65-99 7-Gvr-644943:36 LIPID PANEL (75113) Comments: PATIENT WAS FASTINGPERFORMED BY: [facility]Mvaxkm9846 [facility] [id number] LDL Cholesterol Calc 52 mg/dL (Normal) Range: 0-99 LDL/HDL Ratio 0.9 {ratio_units} (Normal) Range: 0.0-3.6 HDL Cholesterol 58 mg/dL (Normal) Comments: According to ATP-III Guidelines, HDL-C >59 mg/dL is considered anegative risk factor for CHD. VLDL Cholesterol Mike 21 mg/dL (Normal) Range: 5-40 Cholesterol, Total 131 mg/dL (Normal) Range: 100-199 Triglycerides 103 mg/dL (Normal) Range: 0-149 0-Aaq-190503:14 Blood Glucose , Office (94796) Blood Glucose , Office 171 (Normal) Comments: had toast for breakfast :07 HgA1C , Office (20206) HgA1C , Office 6.0 % (Normal) Range: 4.6 - 7.1 4-Iqm-733081:07 Blood Glucose , Office (65057) Blood Glucose , Office 192 (Normal) 7-Uwv-953137:45 MICROALBUMIN: CREATININE RATIO Comments: PATIENT WAS FASTINGPERFORMED BY: R-Squared70 [facility] [id number] (26261) AND (25106) Microalb/Creat Ratio 218.7 {mg/g_creat} (Abnormal) Range: 0.0-30.0 Microalbumin, Urine 359.3 ug/mL (Abnormal) Range: 0.0-17.0 Creatinine, Urine 164.3 mg/dL (Normal) Range: 22.0-328.0 :45 METABOLIC PANEL, COMPREHENSIVE Comments: PATIENT WAS FASTINGPERFORMED BY: R-Squared70 [facility] [id number] (73478) ALT (SGPT) 11 [iU]/L (Normal) Range: 0-55 [...] Glucose, Serum 125 mg/dL (Abnormal) Range: 65-99 6-Yxi-194581:45 LIPID PANEL (44736) Comments: PATIENT WAS FASTINGPERFORMED BY: [employer] Trmqvg6634 [facility] [id number] LDL/HDL Ratio 0.6 {ratio_units} (Normal) Range: 0.0-3.6 LDL Cholesterol Calc 40 mg/dL (Normal) Range: 0-99 VLDL Cholesterol Mike 12 mg/dL (Normal) Range: 5-40 HDL Cholesterol 62 mg/dL (Normal) Comments: According to ATP-III Guidelines, HDL-C >59 mg/dL is considered anegative risk factor for CHD. Triglycerides 58 mg/dL (Normal) Range: 0-149 Cholesterol, Total 114 mg/dL (Normal) Range: 100-199 :45 CBC WITH MANUAL DIFF Comments: PATIENT WAS FASTINGPERFORMED BY: [facility]JockeyJeff[facility])Otwbxf3556 [facility] [id number] Information: [id number] (27187) Immature Grans (Abs) 0.0 {x10E3/uL} (Normal) Range: [...] (Normal) Range: 4.0-10.5 :41 HgA1C , Office (15553) HgA1C , Office 5.5 % (Normal) Range: 4.6 - 7.1 :41 Blood Glucose , Office (48616) Blood Glucose , Office 148 (Normal) 98-Plu-82852:00 CBC (Auto) (15171) Comments: PATIENT NOT FASTINGPERFORMED BY: [facility])Gexhph9126 [facility] [id number] Information: [id number] Platelets 215 {x10E3/uL} (Normal) Range: 140-415 RDW 15.4 % (Abnormal) Range: 11.7-15.0 MCHC 32.3 g/dL (Normal) Range: 32.0-36.0 MCH 30.5 pg (Normal) Range: 27.0-34.0 MCV 94 fL (Normal) Range: 80-98 Hematocrit 39.0 % (Normal) Range: 36.0-50.0 Hemoglobin 12.6 g/dL (Normal) Range: 12.5-17.0 RBC 4.13 {x10E6/uL} (Normal) Range: 4.10-5.60 WBC 7.2 {x10E3/uL} (Normal) Range: 4.0-10.5 :13 HgA1C , Office (60903) HgA1C , Office 5.3 % (Normal) Range: 4.6 - 7.1 :13 Blood Glucose , Office (58794) Blood Glucose , Office 146 (Normal) :12 Microscopic Examination Comments: PATIENT WAS FASTINGPERFORMED BY: Codekko6370 [facility] [id number] Bacteria None seen (Normal) Mucus Threads Present (Normal) Epithelial Cells (non renal) 0-10 {/hpf} (Normal) Range: 0 - 10 RBC 0-3 {/hpf} (Normal) Range: 0 - 3 WBC 0-5 {/hpf} (Normal) Range: 0 - 5 :12 PSA (PROSTATE SPECIFIC Comments: PATIENT WAS FASTINGPERFORMED BY: [facility]zzBlue [facility] [id number] ANTIGEN) (V76.44) Prostate Specific Ag, 1.0 ng/mL (Normal) Range: 0.0-4.0 Serum Comments: Erik ECLIA methodology. .According to the [place] U[employer] Association, Serum PSA shoulddecrease and remain [...] of malignant disease. :12 URINALYSIS, W/ MICRO (17710) Comments: PATIENT WAS FASTINGPERFORMED BY: Codekko6370 [facility] [id number] Microscopic Examination See below: (Normal) Microscopic Examination MICRON (Normal) Comments: Microscopic follows if indicated. Nitrite, Urine Negative (Normal) Urobilinogen,Semi-Qn 0.2 mg/dL (Normal) Range: 0.0-1.9 Bilirubin Negative (Normal) Ketones Negative (Normal) Occult Blood Negative (Normal) Glucose Negative (Normal) Protein Negative (Normal) WBC Esterase Negative (Normal) Appearance Clear (Normal) pH 7.5 (Normal) Range: 5.0-7.5 Urine-Color Yellow (Normal) Specific [place] 1.013 (Normal) Range: 1.005-1.030 31-Oct-20119:12 METABOLIC PANEL, COMPREHENSIVE Comments: PATIENT WAS FASTINGPERFORMED BY: [facility]Uzaxcr1094 [facility] [id number] (88657) ALT (SGPT) 13 [iU]/L (Normal) Range: 0-55 [...] MANUAL DIFF Comments: PATIENT WAS FASTINGPERFORMED BY: [facility] TherapeuticsJeff[facility])Uypdoc1925 [facility] [id number] Information: [id number] (33656) Immature Grans (Abs) 0.0 {x10E3/uL} (Normal) Range: [...] {x10E3/uL} (Normal) Range: 4.0-10.5 :12 LIPID PANEL (72439) Comments: PATIENT WAS FASTINGPERFORMED BY: [facility] TherapeuticsJeff[facility])Hlasta9097 [facility] [id number] LDL/HDL Ratio 0.9 {ratio_units} (Normal) Range: 0.0-3.6 LDL Cholesterol Calc 52 mg/dL (Normal) Range: 0-99 VLDL Cholesterol Mike 18 mg/dL (Normal) Range: 5-40 HDL Cholesterol 60 mg/dL (Normal) Comments: According to ATP-III Guidelines, HDL-C >59 mg/dL is considered anegative risk factor for CHD. Cholesterol, Total 130 mg/dL (Normal) Range: 100-199 Triglycerides 92 mg/dL (Normal) Range: 0-149 :32 HgA1C , Office (78131) HgA1C , Office 6.0 % (Normal) Range: 4.6 - 7.1 :32 Blood Glucose , Office (75102) Blood Glucose , Office 128 (Normal) :24 LIPID PANEL (96662) Comments: PATIENT NOT FASTINGPERFORMED BY: [facility] TherapeuticsJeff[facility])Adcwby6584 [facility] [id number] Information: [id number] LDL Cholesterol Calc 33 mg/dL (Normal) Range: [...] Panel, Basic Comments: PATIENT NOT FASTINGPERFORMED BY: [facility])Xzxocd7737 [facility] [id number] Information: [id number] (48131) Calcium, Serum 9.0 mg/dL (Normal) Range: 8.6-10.2 [...] Glucose, Serum 149 mg/dL (Abnormal) Range: 65-99 39-Mma-76930:56 Ferritin (89125) Comments: PATIENT NOT FASTINGPERFORMED BY: [facility] Lpxxia3818 [facility] [id number] Ferritin, Serum 221 ng/mL (Normal) Range: 30-400 68-Vdz-87232:19 Blood Glucose , Office (22565) Blood Glucose , Office 134 (Normal) 1-Fyb-936844:00 LIPID HDL 61 mg/dL (Normal) Comments: Reference [...] 200-240 mg/dL Borderline >240 mg/dL High Risk 2-Hzv-867341:00 LIVER D BILI 0.13 mg/dL (Normal) Range: 0.00-0.30 T BILI 0.40 mg/dL (Normal) Range: 0.00-1.00 ALT 29 U/L (Normal) Range: 12-78 ALK P 43 U/L (Abnormal) Range: 50-136 ALB 4.1 g/dL (Normal) Range: 3.4-5.0 AST 12 U/L (Abnormal) Range: 15-37 T PROT 7.4 g/dL (Normal) Range: 6.4-8.2 3-Osk-246717:00 BMP CL 102 mmol/L (Normal) Range: 98-107 CO2 25.0 mmol/L (Normal) Range: 21.0-32.0 GAP 10 (Normal) Range: 5-15 K 4.8 mmol/L (Normal) Range: 3.5-5.1 NA 137 mmol/L (Normal) Range: 136-145 BUN/CRE 14.4 {RATIO} (Normal) Range: 10-20 CA 9.5 mg/dL (Normal) Range: 8.5-10.1 BUN 23 mg/dL (Abnormal) Range: 7-18 CREAT,SERUM 1.6 mg/dL (Abnormal) Range: 0.8-1.3 GLU 67 mg/dL (Abnormal) Range: 70-110 57-Fez-977058:29 HIP, MIN 2 VIEWS Radiology Report See [...] by Serge Calderónranscribed on 10/13/10 1038 by TALIA COOPERSONSign by King Calderón on 10/14/10 1005 Sign by: King Calderón 12-Ouh-068514:28 HIP, MIN 2 VIEWS Radiology Report See [...] noted above. Dictated on 10/13/10 1028 by Isabel Nguyenscribed on 10/13/10 1028 by Mark COOPER by King Calderón on 10/14/10 1005 Sign by: King Calderón :01 HgA1C , Office (52397) HgA1C , Office 6.7 % (Normal) Range: 4.6 - 7.1 :01 Blood Glucose , Office (40575) Blood Glucose , Office 163 (Normal) :39 [...] mg/dL High Risk :57 HgA1C , Office (83934) HgA1C , Office 6.5 % (Normal) Range: 4.6 - 7.1 :57 Blood Glucose , Office (27878) Blood Glucose , Office 155 (Normal) :58 CREAT CLR 24H U Comments: STARTED URINE @8AM 9/8ENDED URINE @8AM 07/07 CREAT CLEARANCE 62 ml/min [...] 136-145 GLU 88 mg/dL (Normal) Range: 70-110 62-Zyp-360130:32 TESTICULAR (HP) Radiology Report See Note (Normal) Comments: Exam Number: [id number] CLINICAL:This is a 70-year-old male patient with [...] testicles are unremarkable. Reported By: LOUIS SUE 31-Xxl-490112:00 Urinalysis, Office (02320) UA - LEUKOCYTE ESTERASE Negative (Normal) UA - NITRITE Negative (Normal) URINE UROBILINGN CASPER TIMED Normal mg/dL (Normal) UA - PROTEIN 30 mg/dL (Normal) UA - PH 6.0 (Normal) Comments: 5.5 UA - BLOOD Negative (Normal) UA - SPECIFIC GRAVITY 1.025 (Normal) UA - KETONES Negative mg/dL (Normal) UA - BILIRUBIN Negative (Normal) UA - GLUCOSE Negative (Normal) 67-Qjm-30912:10 HgA1C , Office (27565) HgA1C , Office 5.5 % (Normal) Range: 4.6 - 7.1 15-Zkw-18709:10 Blood Glucose , Office (98419) Blood Glucose , Office 176 (Normal) 93-Tnr-659931:38 ABDOMEN/PELVIS WITH CONTRAST Radiology Report See Note (Normal) Comments: Exam Number: [id number] CLINICAL:70-year-old male with abdominal pain CT ABDOMEN [...] adrenal gland. Reported By: KING CALDERÓN M.D. 13-Vpx-254252:00 CBCD ABSOLUTE NEUT 7.8 3/uL (Abnormal) Range: [...] 4.6-6.2 WBC 10.9 K/mm3 (Normal) Range: 4.4-11.0 00-Kze-580720:00 COMP METABOLIC ALK P 57 U/L (Normal) [...] T PROT 8.1 g/dL (Normal) Range: 6.4-8.2 06-Tgn-821607:0 VITAMIN B12 541 pg/mL (Normal) Range: 254-1320 [...] CHOL 141 mg/dL (Normal) Comments: <200 mg/dL Dlzvdbsgc064-204 mg/dL Borderline>240 mg/dL High Risk :33 LIVER ALK P 53 U/L (Normal) Range: 50-136 ALT 25 U/L (Normal) Range: 12-78 D BILI 0.09 mg/dL (Normal) Range: 0.00-0.30 T BILI 0.30 mg/dL (Normal) Range: 0.00-1.00 ALB 3.9 g/dL (Normal) Range: 3.4-5.0 AST 23 U/L (Normal) Range: 15-37 T PROT 7.8 g/dL (Normal) Range: 6.4-8.2 :09 HgA1C , Office (24193) HgA1C , Office 6.6 % (Normal) Range: 4.6 - 7.1 :09 Blood Glucose , Office (38033) Blood Glucose , Office 243 (Normal) :38 [...] CHOL 132 mg/dL (Normal) Comments: <200 mg/dL Knzahcpnv642-444 mg/dL Borderline>240 mg/dL High Risk :38 LIVER [...] PSA Range: 0.0-4.0 :10 HgA1C , Office (35412) HgA1C , Office 6.1 % (Normal) Range: 4.6 - 7.1 :10 Blood Glucose , Office (14528) Blood Glucose , Office 172 (Normal) 04-Wsl-684437:00 LIPID CHOL 150 mg/dL (Normal) Comments: <200 [...] mg/dL VLDL 58 mg/dL (Abnormal) Range: 5-40 71-Uvu-961532:00 LIVER ALB 4.0 g/dL (Normal) Range: 3.4-5.0 ALK P 50 U/L (Normal) Range: 50-136 ALT 25 U/L (Normal) Range: 12-78 Comments: Please Note: Revised Reference Range effective 09 AST 19 U/L (Normal) Range: 15-37 D BILI 0.12 mg/dL (Normal) Range: 0.00-0.30 T BILI 0.50 mg/dL (Normal) Range: 0.00-1.00 T PROT 7.7 g/dL (Normal) Range: 6.4-8.2 [id number] CBCD,SMEAR DIFF Comments: ORDERED CBCMD LIPID CMP [...] mg/L (Normal) UR CREAT 219.8 mg/dL (Normal) :38 Blood Glucose , Office (84940) Blood Glucose , Office 163 (Normal) :38 HgA1C , Office (55395) HgA1C , Office 6.0 % (Normal) Range: [...] (Normal) Range: 0.0-4.0 :06 HgA1C , Office (25931) HgA1C , Office 5.9 % (Normal) Range: 4.6 - 7.1 :06 Blood Glucose , Office (43798) Blood Glucose , Office 157 (Normal) :50 METABOLIC PANEL, COMPREHENSIVE Comments: PATIENT NOT FASTINGPERFORMED BY: [facility] [id number] [id number] ([id number]) A/G Ratio 1.6 (Normal) Range: 1.1-2.5 Albumin, [...] Serum 102 mg/dL (Abnormal) Range: 65-99 If -Prydeinig >59 mL/min/1.73 Comments: Note: Persistent reduction for [...] Sodium, Serum 143 mmol/L (Normal) Range: 135-145 [id number]:50 CBC WITH MANUAL DIFF (54011) Comments: PATIENT NOT FASTINGClinical Information: ADD DRAW FEE [id number] ADD J [id number] PERFORMED BY: [facility] [id number] Baso (Absolute) 0.0 {x10E3/uL} (Normal) Range: 0.0-0.2 [...] (Normal) Range: 4.0-10.5 :11 HgA1C , Office (12523) HgA1C , Office 5.6 % (Normal) Range: 4.6 - 7.1 :11 Blood Glucose , Office (45419) Blood Glucose , Office 101 (Normal) :55 HgA1C , Office (59797) HgA1C , Office 5.9 % (Normal) Range: 4.6 - 7.1 :55 Blood Glucose , Office (14697) Blood Glucose , Office 104 (Normal) [id number] Billing Information Required Comments: TEST(S) ORDERED: [id number] Ag, SerumPATIENT NOT FASTINGClinical Information: ADD DRAW FEE 204000 ADD J 86843 PERFORMED BY: [facility] [id number] [facility] (Normal) Comments: To enable [facility] to file an insurance claim on behalf of yourpatient, please provide or update as indicated the required billinginformation listed below. The HIPAA Privacy regulation at 45 ISZ401.506 (c) (3) provides that a covered entity (Physician's Office/Referring Provider) may disclose PHI to another covered entity([facility]) for purposes of payment without patient authorization. .Please provide requested information and return via your servicerepresentative or fax to [phone] within 3 days. 3-Wgo-[id number]:23 Billing Information Required Comments: TEST(S) ORDERED: [id number]-Rxfukfoo-Yzjfbggk Ag, SerumPATIENT NOT FASTINGPERFORMED BY: [facility] [facility] [id number] Highest Level of SPRCS Comments: Information Submitted: NOT GIVENPlease Provide: Diagnosis Code, Signs or Symptoms in ICD9 format at the highest level of specificity.Updated/Corrected Information: Specificity (Normal) __Physician/Designee Signature: Date: 9-Bvo-077744:23 PSA (PROSTATE SPECIFIC Comments: PATIENT NOT FASTINGClinical Information: ADD DRAW FEE [id number] ADD J 47006 PERFORMED BY: [facility] [id number] ANTIGEN) (V76.44) Prostate Specific Ag, Serum 1.1 ng/mL (Normal) Range: 0.0-4.0 Comments: [employer] (formerly [employer]) ICMA methodology. .EFFECTIVE March 30, 2008, PSA will be changing to the Erik ECLIA methodology. R ebaselining will be offered for 90 days using panel [id number]. The second result, provided by the [employer] ICMA methodology will be provided at no charge. 0-Dsr-354576:19 HgA1C , Office (87913) HgA1C , Office 6.1 % (Normal) Range: 4.6 - 7.1 :19 Blood Glucose , Office (04132) Blood Glucose , Office 248 (Normal) :23 [...] 4.6-6.2 WBC 10.9 K/mm3 (Normal) Range: 4.4-11.0 :50 COMP METABOLIC A/G 1.0 {RATIO} (Normal) Range: [...] 228.3 mg/dL (Normal) :51 HgA1C , Office (93244) HgA1C , Office 5.7 % (Normal) Range: 4.6 - 7.1 Comments: aw :51 Blood Glucose , Office (15977) Blood Glucose , Office 197 (Normal) Comments: aw :41 TROPONIN-I 0.04 ng/mL (Normal) Comments: TROPONIN-I EXPECTED VALUES < 0.50 NEGATIVE 0.50 - 1.49 INDETERMINANT > OR = 1.50 SUGGEST MA :40 BMP Comments: COMMENTS: BONEZZIINDICATE CK '1', [...] 1.49 INDETERMINANT > OR = 1.50 SUGGEST MA :41 BMP BUN 19 mg/dL (Abnormal) Range: [...] 1.49 INDETERMINANT > OR = 1.50 SUGGEST MA :30 PROTEIN,UR.RAN. 22.8 mg/dL (Abnormal) Comments: HOLD [...] AMI > 5 > 4 :10 SPE [id number] A/G RATIO 1.2 (Normal) Range: 0.7-2.0 ALBUMIN [...] Evidenceof monoclonal protein is not apparent.Performed At: [facility], [place] [id number] M-SPIKE SeeNote g/dL (Normal) Comments: Result: Not Observed NOTE: Comment (Normal) Comments: Protein electrophoresis scan will follow via mail orcourier. PROTEIN,TOTAL 6.9 g/dL (Normal) Range: 6.0-8.5 :10 TROPONIN-I < 0.04 ng/mL (Normal) Comments: INDICATE CK '1', '2', '3', OR 'R' FOR RANDOM: 2 Comments: TROPONIN-I EXPECTED VALUES < 0.50 NEGATIVE 0.50 - 1.49 INDETERMINANT > OR = 1.50 SUGGEST MA :50 PRO TIME INR 1.0 (Normal) PROTIME 12.2 s (Normal) Range: 10.6-13.2 :50 TROPONIN-I < 0.04 ng/mL (Normal) Comments: TROPONIN-I EXPECTED VALUES < 0.50 NEGATIVE 0.50 - 1.49 INDETERMINANT > OR = 1.50 SUGGEST MA :08 SHONDA 38 U/L (Normal) Comments: COMMENTS: [...] Range: 4.4-11.0 :08 COMP METABOLIC Comments: COMMENTS: RM 6 DR NÚÑEZ A/G 1.0 {RATIO} (Normal) [...] 1.49 INDETERMINANT > OR = 1.50 SUGGEST MA :30 CHEST WITHOUT CONTRAST Radiology Report See Note (Normal) Comments: Exam Number: [id number] CT HIGH RESOLUTION OF CHEST WITHOUT CONTRAST [...] DENISSE URIAS M.D. :13 HgA1C , Office (92067) HgA1C , Office 6.5 % (Normal) Range: 4.6 - 7.1 :13 Blood Glucose , Office (38662) Blood Glucose , Office 124 (Normal) :59 [...] Report See Note (Normal) Comments: Exam Number: [id number] PA AND LATERAL CHEST HISTORY Being done for cough. FINDINGSCardiac configuration is normal. No acute infiltrate, effusion, orpneumothorax is identified. There is a pacema ker noted in the leftanterior chest. No abnormality is noted in the leads as demonstrated. IMPRESSION1. No acute change noted in the lungs. 2. Little if any change from 09/04/06. Reported By: AMANDO NANCE M.D. 7-Brl-669784:00 C DIF See Note (Normal) Comments: C. [...] (Normal) Range: 5-40 :35 HgA1C , Office (98847) HgA1C , Office 5.6 % (Normal) Range: [...] - 1.0 :39 Blood Glucose , Office (92279) Blood Glucose , Office 161 (Normal) :39 HgA1C , Office (77232) HgA1C , Office 5.7 % (Normal) Range: [...] swelling : Follow up 3 days with [facility] Indication: Leg swelling RLS (restless legs syndrome) [...] Wheezing Planned Observations CBC WITH MANUAL DIFF (92214)Indication: CKD (chronic kidney disease), stage 3 (moderate) On: 02-Jan-2021 Request Comments: standing order q 3 months MAGNESIUM (28767)Indication: CKD (chronic kidney disease), stage 3 (moderate) On: 02-Jan-2021 Request Comments: standing order q 3 months PARATHORMONE (82376)Indication: CKD (chronic kidney disease), stage 3 (moderate) On: 02-Jan-2021 Request Comments: standing order q 3 months PHOSPHORUS ([id number])Indication: CKD (chronic kidney disease), stage 3 (moderate) On: 02-Jan-2021 Request Comments: standing order q 3 months Renal function Panel (38527)Indication: CKD (chronic kidney disease), stage 3 (moderate) On: 02-Jan-2021 Request Comments: standing order q 3 months CBC WITH MANUAL DIFF ([id number])Indication: CKD (chronic kidney disease), stage 3 (moderate) On: 04-Oct-2020 Request Comments: standing order q 3 months MAGNESIUM ([id number])Indication: CKD (chronic kidney disease), stage 3 (moderate) On: 04-Oct-2020 Request Comments: standing order q 3 months PARATHORMONE ([id number])Indication: CKD (chronic kidney disease), stage 3 (moderate) On: 04-Oct-2020 Request Comments: standing order q 3 months PHOSPHORUS ([id number])Indication: CKD (chronic kidney disease), stage 3 (moderate) On: 04-Oct-2020 Request Comments: standing order q 3 months Renal function Panel ([id number])Indication: CKD (chronic kidney disease), stage 3 (moderate) On: 04-Oct-2020 Request Comments: standing order q 3 months CBC WITH MANUAL DIFF ([id number])Indication: CKD (chronic kidney disease), stage 3 (moderate) On: 06-Jul-2020 Request Comments: standing order q 3 months MAGNESIUM ([id number])Indication: CKD (chronic kidney disease), stage 3 (moderate) On: 06-Jul-2020 Request Comments: standing order q 3 months PARATHORMONE ([id number])Indication: CKD (chronic kidney disease), stage 3 (moderate) On: 06-Jul-2020 Request Comments: standing order q 3 months PHOSPHORUS (52838)Indication: CKD (chronic kidney disease), stage 3 (moderate) On: 06-Jul-2020 Request Comments: standing order q 3 months Renal function Panel (56172)Indication: CKD (chronic kidney disease), stage 3 (moderate) On: 06-Jul-2020 Request Comments: standing order q 3 months CBC WITH MANUAL DIFF ([id number])Indication: CKD (chronic kidney disease), stage 3 (moderate) On: 07-Apr-2020 Request Comments: standing order q 3 months MAGNESIUM (55408)Indication: CKD (chronic kidney disease), stage 3 (moderate) On: 07-Apr-2020 Request Comments: standing order q 3 months PARATHORMONE ([id number])Indication: CKD (chronic kidney disease), stage 3 (moderate) On: 07-Apr-2020 Request Comments: standing order q 3 months PHOSPHORUS ([id number])Indication: CKD (chronic kidney disease), stage 3 (moderate) On: 07-Apr-2020 Request Comments: standing order q 3 months Renal function Panel (60732)Indication: CKD (chronic kidney disease), stage 3 (moderate) On: 07-Apr-2020 Request Comments: standing order q 3 months CBC WITH MANUAL DIFF ([id number])Indication: CKD (chronic kidney disease), stage 3 (moderate) On: 08-Jan-2020 Request Comments: standing order q 3 months MAGNESIUM (81807)Indication: CKD (chronic kidney disease), stage 3 (moderate) On: 08-Jan-2020 Request Comments: standing order q 3 months PARATHORMONE ([id number])Indication: CKD (chronic kidney disease), stage 3 (moderate) On: 08-Jan-2020 Request Comments: standing order q 3 months PHOSPHORUS ([id number])Indication: CKD (chronic kidney disease), stage 3 (moderate) On: 08-Jan-2020 Request Comments: standing order q 3 months Renal function Panel (59758)Indication: CKD (chronic kidney disease), stage 3 (moderate) On: 08-Jan-2020 Request Comments: standing order q 3 months CBC WITH MANUAL DIFF ([id number])Indication: CKD (chronic kidney disease), stage 3 (moderate) On: 10-Oct-2019 Request Comments: standing order q 3 months MAGNESIUM ([id number])Indication: CKD (chronic kidney disease), stage 3 (moderate) On: 10-Oct-2019 Request Comments: standing order q 3 months PARATHORMONE ([id number])Indication: CKD (chronic kidney disease), stage 3 (moderate) On: 10-Oct-2019 Request Comments: standing order q 3 months PHOSPHORUS ([id number])Indication: CKD (chronic kidney disease), stage 3 (moderate) On: 10-Oct-2019 Request Comments: standing order q 3 months Renal function Panel ([id number])Indication: CKD (chronic kidney disease), stage 3 (moderate) On: 10-Oct-2019 Request Comments: standing order q 3 months CBC WITH MANUAL DIFF ([id number])Indication: CKD (chronic kidney disease), stage 3 (moderate) On: 12-Jul-2019 Request Comments: standing order q 3 months MAGNESIUM ([id number])Indication: CKD (chronic kidney disease), stage 3 (moderate) On: 12-Jul-2019 Request Comments: standing order q 3 months PARATHORMONE ([id number])Indication: CKD (chronic kidney disease), stage 3 (moderate) On: 12-Jul-2019 Request Comments: standing order q 3 months PHOSPHORUS ([id number])Indication: CKD (chronic kidney disease), stage 3 (moderate) On: 12-Jul-2019 Request Comments: standing order q 3 months Renal function Panel ([id number])Indication: CKD (chronic kidney disease), stage 3 (moderate) On: 12-Jul-2019 Request Comments: standing order q 3 months CBC WITH MANUAL DIFF ([id number])Indication: CKD (chronic kidney disease), stage 3 (moderate) On: 13-Apr-2019 Request Comments: standing order q 3 months MAGNESIUM ([id number])Indication: CKD (chronic kidney disease), stage 3 (moderate) On: 13-Apr-2019 Request Comments: standing order q 3 months PARATHORMONE ([id number])Indication: CKD (chronic kidney disease), stage 3 (moderate) On: 13-Apr-2019 Request Comments: standing order q 3 months PHOSPHORUS ([id number])Indication: CKD (chronic kidney disease), stage 3 (moderate) On: 13-Apr-2019 Request Comments: standing order q 3 months Renal function Panel ([id number])Indication: CKD (chronic kidney disease), stage 3 (moderate) On: 13-Apr-2019 Request Comments: standing order q 3 months CBC WITH MANUAL DIFF ([id number])Indication: CKD (chronic kidney disease), stage 3 (moderate) On: 13-Jan-2019 Request Comments: standing order q 3 months MAGNESIUM (07652)Indication: CKD (chronic kidney disease), stage 3 (moderate) On: 13-Jan-2019 Request Comments: standing order q 3 months PARATHORMONE (84094)Indication: CKD (chronic kidney disease), stage 3 (moderate) On: 13-Jan-2019 Request Comments: standing order q 3 months PHOSPHORUS (08939)Indication: CKD (chronic kidney disease), stage 3 (moderate) On: 13-Jan-2019 Request Comments: standing order q 3 months HEPATIC FUNCTION PANEL (80943)Indication: Diabetes mellitus with chronic kidney disease On: :40 Request HgA1C , Office (84521)Indication: Diabetes mellitus with chronic kidney disease On: 50-Qmj-242570:37 Request CBC WITH MANUAL DIFF ([id number])Indication: CKD (chronic kidney disease), stage 3 (moderate) On: :36 Request Comments: standing order q 3 months PHOSPHORUS (41220)Indication: CKD (chronic kidney disease), stage 3 (moderate) On: 90-Kym-370681:36 Request Comments: standing order q 3 months MAGNESIUM (44562)Indication: CKD (chronic kidney disease), stage 3 (moderate) On: 42-Juk-802829:36 Request Comments: standing order q 3 months Renal function Panel (77388)Indication: CKD (chronic kidney disease), stage 3 (moderate) On: 25-Eks-050714:36 Request Comments: standing order q 3 months PREALBUMIN (07152)Indication: Anorexia On: 80-Cps-775881:36 Request MAGNESIUM (04548)Indication: CKD (chronic kidney disease), stage 3 (moderate) On: 15-Oct-2018 Request Comments: standing order q 3 months PARATHORMONE ([id number])Indication: CKD (chronic kidney disease), stage 3 (moderate) On: 15-Oct-2018 Request Comments: standing order q 3 months Keppra (77187)Indication: Seizure On: 61-Igr-434093:02 Request Comments: send all labs stat TSH (87112)Indication: Cardiac dysrhythmia On: 82-Alb-36788:40 Request Troponin I (68053)Indication: Episode of syncope On: 30-Iuj-84761:39 Request BNTP (25252)Indication: Episode of syncope On: 86-Cvj-72799:39 Request CBC (Auto) (95811)Indication: Episode of syncope On: 07-Acg-93257:38 Request Metabolic Panel, Comprehensive (87875)Indication: Episode of syncope On: 76-Bri-60576:38 Request Keppra (84550)Indication: Seizure On: 69-Doi-614582:57 Request Comments: all copies to Dr. jung CBC WITH MANUAL DIFF (02968)Indication: CKD (chronic kidney disease), stage 3 (moderate) On: :57 Request Comments: standing order q 3 months PHOSPHORUS (09816)Indication: CKD (chronic kidney disease), stage 3 (moderate) On: 52-Zjb-778025:57 Request Comments: standing order q 3 months PARATHORMONE (79195)Indication: CKD (chronic kidney disease), stage 3 (moderate) On: 34-Lnb-224830:57 Request Comments: standing order q 3 months Renal function Panel (28605)Indication: CKD (chronic kidney disease), stage 3 (moderate) On: :57 Request Comments: standing order q 3 months Metabolic Panel, Basic (32574)Indication: Hypertension On: 53-Ort-562551:34 Request Platelet 96317 (citrate, nonclumping tube)Indication: Thrombocytopenia On: 79-Zhi-974561:25 Request Keppra (89770)Indication: Generally unsteady On: 37-Fyf-580640:20 Request Comments: Dr. Jung copy to him Methymalonic Acid, Serum (60525)Indication: CKD (chronic kidney disease), stage 3 (moderate) On: 33-Zzx-59453:35 Request Vitamin B-12 (cyanocobalamin) (07314)Indication: CKD (chronic kidney disease), stage 3 (moderate) On: :35 Request FIBRIN DEGRAD SLIDE AGGL (87574)Indication: Abnormal platelet aggregation On: :19 Request LDH (LD) (LACTATE DEHYDROGENASE) (21477)Indication: Abnormal platelet aggregation On: :13 Request Platelet Count (00209)Indication: Abnormal platelet aggregation On: :12 Request Comments: PLEASE DRAW IN CITRATE TUBE Renal function Panel (21232)Indication: Hypotension, postural On: :46 Request CBC, Platelets & Auto Diff (84193)Indication: Hypotension, postural On: 94-Gmo-381897:45 Request Troponin I (01643)Indication: Hypotension, postural On: 07-Uev-010121:45 Request TSH (45538)Indication: Hypotension, postural On: 59-Ybu-210725:43 Request PHOSPHORUS (27270)Indication: CKD (chronic kidney disease), stage 3 (moderate) On: 73-Aux-042913:23 Request Comments: standing order q 3 months Troponin I (88483)Indication: History of CHF (congestive heart failure) On: 65-Brt-640241:54 Request Renal function Panel (55217)Indication: History of CHF (congestive heart failure) On: 20-Zrz-337838:54 Request TSH (86204)Indication: Hypothyroid On: 78-Whl-744888:50 Request METABOLIC PANEL, COMPREHENSIVE (60608)Indication: Diabetes mellitus with chronic kidney disease On: 19-Cbe-090407:50 Request MICROALBUMIN: CREATININE RATIO (21077) AND (59086)Indication: CKD (chronic kidney disease), stage 3 (moderate) On: 0-Kuc-367422:41 Request Comments: copy to Dr. Murcia [phone] Parathyroid Hormone-related Peptide (PTH-rP) (61652)Indication: CKD (chronic kidney disease), stage 3 (moderate) On: :41 Request Comments: copy to Dr. Murcia [phone] URINALYSIS, W/ MICRO (73903)Indication: Diabetes mellitus with chronic kidney disease On: :47 Request Comments: 07-15 METABOLIC PANEL, COMPREHENSIVE (01256)Indication: Diabetes mellitus with chronic kidney disease On: :47 Request Comments: 07-15 LIPOPROTEIN, BLD, BY NMR (92610)Indication: Diabetes mellitus with chronic kidney disease On: :46 Request Comments: 07-15 CBC with auto diff (41445)Indication: Diabetes mellitus with chronic kidney disease On: :46 Request Comments: 07-15 ANCA-P (ANTI NEUTROPHIL CYTOPLASMIC ANTIBODY)Indication: CKD (chronic kidney disease), stage 3 (moderate) On: :38 Request PSA (PROSTATE SPECIFIC ANTIGEN) (V76.44)Indication: Screening for prostate cancer On: 98-Cgl-181816:13 Request Comments: 06-14 PARATHORMONE (63550)Indication: CKD (chronic kidney disease), stage 3 (moderate) On: :51 Request Magnesium (98730)Indication: CKD (chronic kidney disease), stage 3 (moderate) On: :51 Request CALCIFIDIOL (70132) VIT D 25Indication: CKD (chronic kidney disease), stage 3 (moderate) On: :51 Request Total Protein,24 Hour Urine (86492)Indication: CKD (chronic kidney disease), stage 3 (moderate) On: :50 Request CREATININE CLEARANCE (59475)Indication: CKD (chronic kidney disease), stage 3 (moderate) On: :50 Request Metabolic Panel, Basic (32356)Indication: Cardiomyopathy On: :30 Request Comments: 2 weeks METABOLIC PANEL, COMPREHENSIVE (59155)Indication: Hypertension On: : Request Comments: in three months (approximately) CBC with auto diff (79774)Indication: Hypertension On: :29 Request Comments: in three months (approximately) METABOLIC PANEL, BASIC (53355)Indication: Diabetes mellitus with chronic kidney disease On: 19-Mwl-529907:05 Request Comments: recheck in 2 wks HGB A1C (28673)Indication: Diabetes mellitus with chronic kidney disease On: 26-Mrk-511208:01 Request MAGNESIUM (21641)Indication: Hypomagnesemia On: :53 Request LIPID PANEL (21189)Indication: Hypertension On: :53 Request Comments: copy to Dr. harmon TSH (61994)Indication: Hypothyroid On: :53 Request METABOLIC PANEL, COMPREHENSIVE (64960)Indication: Hypertension On: :53 Request CBC with auto diff (93156)Indication: Hypertension On: :52 Request CBC (Auto) (54975)Indication: Hypertension On: 79-Mky-008550:44 Request Comments: in three months (approximately) Renal function Panel (09546)Indication: Hypertension On: :44 Request Comments: in three months (approximately) Metabolic Panel, Basic (52797)Indication: Hypertension On: :30 Request METABOLIC PANEL, BASIC (20346)Indication: Hypertension On: :37 Request Comments: Forward to Val Almeida at [facility] at fax [phone] also PSA (PROSTATE SPECIFIC ANTIGEN) (V76.44)Indication: Encounter for health maintenance examination with abnormal findings On: 44-Nnl-478063:11 Request Comments: due 07-12 MICROALBUMIN: CREATININE RATIO (90411) AND (65583)Indication: Diabetic nephropathy On: :39 Request METABOLIC PANEL, COMPREHENSIVE (12556)Indication: Diabetes mellitus type II, controlled On: 7-Npe-054272:39 Request URINALYSIS, W/ MICRO (94624)Indication: Diabetes mellitus type II, controlled On: 81-Mre-01583:56 Request METABOLIC PANEL, COMPREHENSIVE (89630)Indication: Diabetes mellitus type II, controlled On: :56 Request CBC WITH MANUAL DIFF (64232)Indication: Diabetes mellitus type II, controlled On: :56 Request HgA1C , Office (97210)Indication: Diabetes mellitus type II, controlled On: :19 Request Metabolic Panel, Basic (82606)Indication: Cardiomyopathy On: :01 Request LIPID PANEL (57516)Indication: Diabetes mellitus with chronic kidney disease On: :30 Request METABOLIC PANEL, COMPREHENSIVE (43858)Indication: Diabetes mellitus with chronic kidney disease On: :30 Request CBC WITH MANUAL DIFF (56074)Indication: Diabetes mellitus with chronic kidney disease On: :30 Request Comments: copy Dr. hu CREATININE CLEARANCE (59119)Indication: Renal insufficiency On: :06 Request 24 hour urine for Protein (98556)Indication: Renal insufficiency On: :06 Request Metabolic Panel, Basic (25576)Indication: Renal insufficiency On: :05 Request Metabolic Panel, Basic (31940)Indication: Renal insufficiency On: 42-Web-356603:03 Request Urinalysis, Office (57823)Indication: Cystitis, acute On: 66-Otm-111988:37 Request URINE LIBORIO CULTURE-CASPER COL COUNT (46464)Indication: Cystitis, acute On: :37 Request CBC, Platelets & Auto Diff (78515)Indication: Cramp in limb On: :44 Request Vitamin B-12 (cyanocobalamin) (61917)Indication: Cramp in limb On: :44 Request Metabolic Panel, Comprehensive (70170)Indication: Cramp in limb On: :44 Request METABOLIC PANEL, COMPREHENSIVE (52041)Indication: Diabetes mellitus type II, controlled On: 8-Xve-161946:50 Request LIPID PANEL (52322)Indication: Diabetes mellitus type II, controlled On: 7-Awn-850476:50 Request Comments: in three months (approximately) PSA (PROSTATE SPECIFIC ANTIGEN) (V76.44)Indication: Diabetes mellitus type II, controlled On: :30 Request CBC WITH MANUAL DIFF (11224)Indication: Diabetes mellitus type II, controlled On: : Request MICROALBUMIN: CREATININE RATIO (05596) AND (06500)Indication: Diabetes mellitus type II, controlled On: : Request Metabolic Panel, Basic (67751)Indication: Diabetes mellitus type II, controlled On: :29 Request MICROALBUMIN: CREATININE RATIO (27897) AND (14935)Indication: Diabetes mellitus type II, controlled On: 48-Dmf-715690:53 Request METABOLIC PANEL, COMPREHENSIVE (14680)Indication: Diabetes mellitus type II, controlled On: 58-Dce-746809:53 Request LIPID PANEL (36912)Indication: Diabetes mellitus type II, controlled On: 64-Vsl-350273:53 Request CBC WITH MANUAL DIFF (11821)Indication: Diabetes mellitus type II, controlled On: 81-Equ-641197:53 Request Comments: in three months (approximately) PSA (PROSTATE SPECIFIC ANTIGEN) (V76.44)Indication: Well Male On: :32 Request MICROALBUMIN: CREATININE RATIO (40750) AND (21591)Indication: Diabetes mellitus type II, controlled On: :32 Request METABOLIC PANEL, COMPREHENSIVE (37655)Indication: Diabetes mellitus type II, controlled On: :32 Request CBC WITH MANUAL DIFF (75687)Indication: Diabetes mellitus type II, controlled On: :32 Request LIPID PANEL (20764)Indication: Diabetes mellitus type II, controlled On: 20-Tyf-936874:32 Request URINALYSIS W/O MICRO (22046)Indication: Cardiomyopathy On: :22 Request Metabolic Panel, Basic (95780)Indication: Hypertension On: 24-Wkd-752672:12 Request Comments: sept CBC (Auto) (13535)Indication: Diabetes mellitus type II, controlled On: 5-Jiw-168069:10 Request Metabolic Panel, Comprehensive (79106)Indication: Diabetes mellitus type II, controlled On: 4-Ybw-401498:10 Request MICROALBUMIN: CREATININE RATIO (67278) AND (86579)Indication: Diabetes mellitus type II, controlled On: :12 Request CBC WITH MANUAL DIFF (30648)Indication: Diabetes mellitus type II, controlled On: :12 Request Comments: in three months (approximately) METABOLIC PANEL, COMPREHENSIVE (80631)Indication: Diabetes mellitus type II, controlled On: 6-Fij-958084:12 Request LIPID PANEL (46499)Indication: Hypertension On: :08 Request METABOLIC PANEL, COMPREHENSIVE (32861)Indication: Hypertension On: 3-Ikg-635260:08 Request METABOLIC PANEL, BASIC (12168)Indication: Acute renal failure, unspecified acute renal failure type On: :01 Request Comments: with next blood draw PSA (PROSTATE SPECIFIC ANTIGEN) (88951)Indication: Encounter for health maintenance examination with abnormal findings On: 2-Hhp-507800:55 Request Comments: after 09-20-06 MICROALBUMIN 24 HOUR OR RANDOM (68062)Indication: DIABETIC NEPHROPATHY On: :49 Request CREATININE CLEARANCE (25660)Indication: DIABETIC NEPHROPATHY On: 1-Yes-991402:49 Request Planned Encounters Medical; MICHAEL 2 Week FU - On: 27-Nov-2018 10:00 [facility] Dami ROGERS, Anabella Turcios MD Planned Procedures ELECTROCARDIOGRAM, COMPLETE (ECG) On: 17-Sep-2018 Intent (33197)By: Anabella Núñez MD Comments: see scanned document of test done to see results reviewed today with patient Anabella ROGERS INFUSION OF 0.9% SODIUM CHLORIDE On: 25-Apr-2018 Intent SOLUTION (64730)By: Anabella Núñez MD Comments: lot:[id number]:rte:IV right anticub dose:250ccgiven by:aaliyah FRASER signedERASAD MD, Dana M ELECTROCARDIOGRAM, COMPLETE (ECG) On: 25-Apr-2018 Intent (51770)By: Anabella Núñez MD Comments: see scanned document of test done to see results reviewed today with patient Anabella ROGERS INFUSION, NORMAL SALINE SOLUTION , On: 18-Jan-2018 Intent 1000 CC (Special Coverage Instructions Comments: lot:[id number]:01/15rte:IV dose: 500ml sodium chloride given by: aaliyah left fore arm 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 See MCM: 2048) (J7030)By: Anbaella Núñez MD, MD, Dana M Radiology - Chest- PA and LatBy: Fast On: 09-Jan-2018 Intent Delisa BARFIELD Comments: stat call results Spirometry (06784)By: Delisa Gordon DO On: 06-Jun-2017 Intent A Comments: good effort and curve with decrease in small airways Radiology - Chest- PA and LatBy: Fast On: 06-Jun-2017 Delisa Pittman DO Comments: stat call rsutls Ultrasound - RenalBy: Anabella Núñez MD On: 06-Sep-2016 Intent Anabella Tirado MD Aerosol Treatment ([id number])By: Mynor On: 15-Feb-2016 Intent Daria LION Radiology - ChestBy: Daria Lowe CNP On: 13-Sep-2015 Intent Solu -Medrol Injection, 125 mg On: 13-Sep-2015 Intent ([id number])By: Daria Lowe CNP Comments: lot:[id number]:12/2017route:IMdose:125mgsite:SMA Nahomy Aerosol Treatment ([id number])By: Mynor On: 13-Sep-2015 Intent Daria LION Comments: patient tolerated well Aerosol Treatment ([id number])By: Dami On: 07-Sep-2015 Intent Anabella ROGERS MD, Dana M Prevnar 13 ([id number])By: Dami ROGERS, On: 16-Oct-2014 Intent Anabella Turcios MD ADMINISTRATION OF INFLUENZA VIRUS On: 04-Aug-2014 Intent VACCINE (G0008)By: Visit, Nurse Comments: Lot #[id number]-L dltd, IMDose prefilled syringegiven by:Madelaine and ABN signed FLU VAC, SPLIT, >3 YEARS, INTRAMUSC On: 04-Aug-2014 Intent ([id number])By: Visit, Nurse Radiology - ChestBy: Anabella Núñez MD On: 20-Jan-2014 Intent Anabella Tirado MD Aerosol Treatment ([id number])By: Dami On: 20-Jan-2014 Intent Anabella ROGERS MD, Dana M Eprescribed prescriptions ([id number])By: On: 20-Jan-2014 Intent Anabella Núñez MD, MD, Dana M FLU VAC, SPLIT, >3 YEARS, INTRAMUSC On: 10-Jul-2013 Intent ([id number])By: MATILDA Hernandez Comments: Lot #:[id number] date:6.14Amount given:0.5mlRoute: IMSite given:L DltdGiven by: NAS and ABN signed ADMINISTRATION OF INFLUENZA VIRUS On: 10-Jul-2013 Intent VACCINE (G0008)By: MATILDA Hernandez Eprescribed prescriptions ([id number])By: On: 11-Dec-2012 Intent Delisa Gordon DO Pulse Oximetry ([id number])By: Evan BARFIELD, On: 11-Dec-2012 Intent Delisa Monte Comments: 98 Spirometry ([id number])By: Delisa Gordon DO On: 11-Dec-2012 Intent A Comments: good effort and curve normal Radiology - Chest- PA and LatBy: Fast On: 11-Dec-2012 Delisa Pittman DO Comments: call wet read Eprescribed prescriptions ([id number])By: On: 18-Nov-2012 Intent La Nena Nicole DO TDAP VACCINE >7 IM ([id number])By: David On: 20-Feb-2012 Intent MATILDA Comments: Lot #:[id number] date:54-73-42Ufykyz given:0.5mlRoute: IMSite given:right deltoid Given by: aaliyah mallory Pulse Oximetry ([id number])By: Mynor LION, On: 17-Oct-2011 Intent Simona Aerosol Treatment ([id number])By: Mynor On: 17-Oct-2011 Intent Daria LION FLU VAC, SPLIT, >3 YEARS, INTRAMUSC On: 08-Aug-2011 Intent ([id number])By: Diana Caballero RN Comments: Lot #: [id number] date: 04/09Amount given: 0.5 mlRoute: IMSite given: left deltoidGiven by: BEKA Dc ADMINISTRATION OF INFLUENZA VIRUS On: 08-Aug-2011 Intent VACCINE (G0008)By: Diana Caballero RN Radiology - Hip - BilateralBy: Daim On: 13-Oct-2010 Intent Anabella ROGERS MD, Dana M Spirometry ([id number])By: Dami ROGERS, On: 13-Oct-2010 Intent Anabella Turcios MD Pulse Oximetry ([id number])By: Dami ROGERS, On: 13-Oct-2010 Intent Anabella Turcios MD FLU VAC, SPLIT, >3 YEARS, INTRAMUSC On: 05-Sep-2010 Intent ([id number])By: Dasha Ramirez LPN Comments: Lot #[id number]-right deltoidgiven by:[facility] ADMINISTRATION OF INFLUENZA VIRUS On: 05-Sep-2010 Intent VACCINE (G0008)By: Dasha Ramirez LPN Renal DopplerBy: Anabella Núñez MD On: 23-May-2010 Intent Anabella Núñez MD Ultrasound - TesticularBy: Mynor LION, On: 10-May-[address] - Abdomen & Pelvis (IV Contrast On: 09-May-2010 Intent Needed)By: Daria Lowe CNP Comments: today call wet read to [facility] ADMINISTRATION OF INFLUENZA VIRUS On: 26-Jul-2009 Intent VACCINE (G0008)By: Anabella Núñez MD Comments: lot # [id number]- [id number]- 0.5ML Tolerated well Chenderson MA Bonezzi MD, Anabella M FLU VAC, SPLIT, >3 YEARS, INTRAMUSC On: 26-Jul-2009 Intent ([id number])By: Anabella Núñez MD, MD, Dana M EKG ([id number])By: Gabriela Douglas On: 19-Jun-2008 Intent EsophagramBy: Anabella Núñez MD On: 20-Nov-2007 Intent Anabella Núñez MD Inhaler Demonstration ([id number])By: On: 02-Oct-2007 Intent Daria Lowe CNP Pulse Oximetry ([id number])By: Mynor LION, On: 02-Oct-2007 Intent Daria Otto Aerosol Treatment ([id number])By: Mynor On: 02-Oct-2007 Daria Pittman CNP Six Minute Walk Assessment ([id number])By: On: 27-Feb-2007 Intent Dhara Oquendo LPN Comments: ABN signed Inhaler Demo ([id number])By: Delisa Gordon DO On: 18-Feb-2007 Intent A Pulse Oximetry ([id number])By: DILSHAD LION, On: 31-Jan-2007 Intent MARIO Comments: 96% Aerosol Treatment ([id number])By: DILSHAD On: 31-Jan-2007 Intent MARIO LION Solu- Medrol Injection, 125mg On: 31-Jan-2007 Intent ([id number])By: MARIO YUNG CNP Aerosol Treatment ([id number])By: Evan BARFIELD, On: 28-Jan-2007 Intent Delisa Monte Inhaler Demo ([id number])By: Delisa Gordon DO On: 28-Jan-2007 Intent A Radiology - Chest- PA and LatBy: Evan On: 28-Jan-2007 Delisa Pittman DO Spirometry ([id number])By: Delisa Gordon DO On: 28-Jan-2007 Intent A Comments: good effort and curve- mild obstruction Pulse Oximetry ([id number])By: Gene, On: 28-Jan-2007 Intent Rolanda Comments: ins waiver initially - after tx was 95 Planned Medications INFUSION, NORMAL SALINE SOLUTION , 1000 CC Ordered: 18-Jan-2018 Pending Anabella Núñez MD, MD, Dana M INJECTION, METHYLPREDNISOLONE SODIUM SUCCINATE, UP TO 125 [...] for health maintenance examination with abnormal findings MA (myocardial infarction) : How to access health information online Indication: MA (myocardial infarction) MA (myocardial infarction) : How to access health information online - Detail Indication: MA (myocardial infarction) MA (myocardial infarction) : Patient Instructions Indication: MA (myocardial infarction) Allergic rhinitis : Patient Instructions [...] Patient Instructions Indication: Acute sinusitis, unspecified Encounters Review On: 11-Nov-2018 12:45 Encounter Reason: Follow up hospital - Reason for ER visit: note: (cardiac issues). The patient feels well with minor complaints and has decreased energy level. Patient has been compliant with instructions. Current medic ation use: no side effects and compliant [...] CHF (congestive heart failure), Abnormal laboratory test, MA (myocardial infarction) , Sensorineural hearing loss (SNHL) [...] Erectile dysfunction, Memory loss, Subdural hemorrhage, Nonsmoker, MA (myocardial infarction), Peripheral vascular disease, CKD (chronic [...] both ears, Memory loss, Abnormal laboratory test, MA (myocardial infarction), Erectile dysfunction, Peripheral vascular disease, [...] alcohol, Diabetes mellitus with chronic kidney disease, MA (myocardial infarction), Uncoordinated movements, Memory loss, Obesity, [...] side effects and compliant with dosing regimen. Raymond florez sleeps 8 hours per night. The medical issues the patient is following up for include All identified problems below and URI. Note for Follow up acute care visit: did improve cough still there- occ ju nk cough- but often white not sob- can feel still something right lower not tight up- no fever - weak and fatigue supposed to have colonosocpy tueEncounter Diagnosis: Right lower lobe pneumonia, BMI 29.0-29.9,adult, [...] breathing- wheezing though- cxr noted ok in februaryEncounter Diagnosis: BMI 29.0-29.9,adult , History of tobacco abuse, Right lower lobe pneumonia [facility] Historical Summary On: 18-Apr-2017 9:33 Encounter Diagnosis: MA (myocardial infarction) End: 18-Apr-2017 9:36 [facility] [...] syndrome), Uncoordinated movements, Hyperplasia, prostate, Macrocytosis, Hypertension, MA (myocardial infarction), Hypothyroid, Erectile dysfunction, Allergic rhinitis, [...] patient does h ave durable power of patent prosecution attorney and living will. The patient has noticed thinking most people are better off than them (due to heart concerns) and nothing from the geriatic depression scale. 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 Encounter Diagnosis: BMI 30.0-30.9,adult, Hyperplasia, prostate, MA (myocardial infarction), Allergic rhinitis, Macrocytosis, Cardiomyopathy, Obstructive [...] Testicular hypofunction, Hypothyroid, Erectile dysfunction, Allergic rhinitis, MA (myocardial infarction), Hyperplasia, prostate, Macrocytosis, Gum hyperplasia, [...] failure), Obesity, RLS (restless legs syndrome) , MA (myocardial infarction), Testicular hypofunction, Gum hyperplasia, BMI [...] - Reason for ER visit: note: (had MA in [place] ). The patient feels well with no complaints and has good energy level. Patient has been compliant with instructions. Current medicati End: 17-Mar-2016 13:29 on use: no side effects, compliant with dosing regimen and considered effective by patient. Patient sleeps 7 hours per night. Impact of disease: emotional impact-mild. Nutrition: balanced diet and suppl emental vitamins. Hospital procedures performed were heart catherization.Encounter Diagnosis: MA (myocardial infarction), History of tobacco abuse, Cardiac [...] The patient does have durable power of patent prosecution attorney and living will. The patient has noticed lack of energy. Other providers contributing to the patient's care are asphalt still operator (Fritz), gastrologist (Dr. Small ) and other: (Opthalm: Dr. Luna ).Encounter Diagnosis: BMI 31.0-31.9,adult, Diabetes typeII,controlled, renal [...] Nutrition: balanced diet and supplemental vitamins. The ri dical issues the patient is following up [...] night. Impact of disease: emotional impact-mild. Nutrition: sydnee lanced diet. Note for Follow up hospital: [...] in [facility] adjust meds, stress negative. saw melvi yesteray--depending on test iodine uptake if will [...] feels well with minor complaints (related to manish). Patient has been compliant with instructions. Current [...] [facility] End: 03-Jul-2006 11:43 Payers sIaac Pereira/MedicareJAMES KAPP; jose guarantor
--- OUTSIDE RECORDS SUMMARY | 2019-01-20 05:59 | XMS RPT_ITS | Continuity of Care Document ---
:1940 Author Organization [facility] Address [address] [place] [address] Phone Care Team Providers Name Role Phone [...] literature about in medical journals. look like ghanaian study that it did help. no side [...] M Start : 17-Aug-2017 Active Comments:changed from [facility] dc summary MagOx 400 400 (241.3 Mg) [...] : 13-Oct-2010 End : 07-Apr-2011 Inactive NYSTATIN, [id number] (External Powder) 1 Powder bid for 0 [...] : 09-Mar-2011 End : 15-Aug-2011 Inactive ZOSTAVAX, [id number]/0.65ML (Subcutaneous Solution Reconstituted) 1 For Solution once [...] Daily for 0 days Refills: 0 Ordered:18-Feb-2007 Shonad Tello Start : 18-Feb-2007 End : 03-Sep-2007 [...] (M79.89, 729.81) Status: Resolved as of 25-Dec-2017 OR (myocardial infarction) (I21.9, 410.90) Comments: talk about get records. see what cath showed talk about fish oil await doing biomarker sn inflammatory markers ? VT related since cath [facility] blockage. [facility] [place] had rafa [facility] pain radiated down arm, and squad took him to hospital, told had OR, took off lasix, and put on bumex. [...] Dates Details CABG, USING 3 VENOUS GRAFTS (51447) Completed Comments: 1988, 10-08-02 (SVG to to LAD, SVG to right PDA, radial artery to OM-2) CARDIAC ABLATION (91304) Completed Comments: [facility] , [facility] 10-04-18 cholecytectomy 10-04 Completed CRANIOTOMY, EMERGENT, FOR SUBDURAL Completed HEMATOMA EVACUATION (22110) Comments: [facility] Completed Comments: stent 10-04 Left heart cath Completed Comments: [facility] Right and left coronary angiography, Saphenous vein with angiography hemostatsis with Mynx Dr. [id number] Left Heart Cath [facility] DX: moderate to severe elevated LVEDP pacemaker Completed Comments: 2001, ICD, replaced 06-11 Total right hip replacement Completed Comments: [facility] 11-07-11 rec. 3 units PRBC's Date Value Details 04-Nov-2018 Cardiology Visit Report Result: Comments: See Note; NOTES: [facility] [address] [place] [address] OFFICE VISIT Date of Service: 11/04/18 MR#: [id number] Acct: [id number] Name: MAYRA GHOSH Rep #: [id number] : 1940 Provider: Amando Hu MD Age/Sex: 78/M [place] [facility] Status: Signed HPI HPI Details: MAYRA GHOSH, is a 78 M who presents to the office today for outpatient cardiovascular follow-up. He has recently been at [facility] as well as subsequently at [facility]. He [...] at the time. He then returned to [facility] because of weakness. 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) Ventricular [...] (Examined in the wheelchair) Nutritional Appearance: overweight Sabin ation: alert, awake and oriented x3 Head [...] disease involving eva nary bypass graft of nikolski heart, angina presence unspecified I25.10 Plan He [...] 3 Months (with PFM) 11/04/18 (copy of [facility] labs) Coding Level of Care Code Off vis,est,level 4 Diagnoses Atrial fibrillation I48.91 History of cardiac radiofrequency ablation (RFA) Z98.890 A utomatic implantable cardiac defibrillator in situ Z95.810 Coronary artery disease involving coronary bypass graft of nikolski heart, angina presence unspecified I25.10 Postsurgical aortocoronary [...] artery disease involving coronary bypass graft of nikolski heart, angina presence unspecified I25.10 Postsurgical aortocoronary [...] MD 04-Nov-2018 12 Lead EKG performed by [facility] Result: Comments: See Note; NOTES: [facility] [address] [place] [address] 12 Lead EKG performed by [facility] 11/04/18 1605 MR#: [id number] Acct: [id number] Name: MAYRA GHOSH Екатерина Rep #: [id number] : 1940 78 From: Amando Hu MD Attending Dr: Amando Hu MD Status: DEP [facility] Ordering Dr: Amando Hu MD Date: 11/04/18 Location: [facility] Sex: M C Admitted: O RDER #: [id number] [facility] [place]12 Lead EKG performed by [facility] ECG Report Interpretation Somatic / motion artifactElectronic ventricular pacemakerPacemaker ECG, No further analysis Electro nically signed on 11/04/2018 at 17:50 by Amando Hu Software Version 8610 11/04/18 1755 Date Amando Hu MD CC: Anabella Núñez MD Da te Dictated: 11/04/18 1605 Date Transcribed: 11/04/181604 Sanding Machine Tender: PM Signed 16-Oct-2018 Emergency Department Summary Result: Comments: See Note; NOTES: [facility] Medical Records Department [address] [place] [address] Emergency Department Summary 10/16/18 1348 MR#: [id number] Acct: [id number] Name: MAYRA GHOSH Rep #: [id number] : 1940 78 From: Darrel Bean MD PCP: Anabella Núñez MD Status: [facility] ER - ER Visit Summary Date of Service: 10/16/18 Chief Complaint: Cough and generalized weakn ess. History of Present Illness: The patient is a [address] of cardiomyopathy, V. tach, defibrillator, noncemented diabetes, renal insufficiency, CAD with prior double bypass. Recent ablation at [facility]. Prior intracranial bleed with surgical drainage. [...] significant concern he was discharged twice from [facility] and had to be readmitted. She [...] and CABG and cardiomyopa thy History of yzx-erozesf-ctsyvjuxt diabetes History of renal insufficiency This note was generated with [employer] dictation software. It may contain incorrect words, [...] Emergency Room. Call 911 if necessary. 10/16/18 3377 <Electronically signed by Darrel Bean MD> Date Star Bean MD Cosigner Signature (If Indicated): Date CC: Anabella Núñez MD 16-Oct-2018 Chest 1 View (Portable) Result: Comments: See Note; NOTES: [facility] Imaging Services [address] [place] [address] Chest 1 View (Portable) MR#: [id number] Acct: [id number] Name: MIRELAMAYRA Екатерина Rep #: [id number] : 1940 M 78 From: Gene Jayshree BARFIELD PCP: Anabella Núñez MD Status: REG ER Study: Chest 1 View (Portable) Date of Exam: 10/16/18 Exam# [id number] Ordering Dr: Darrel Bean MD STUDY: X-RAY [...] CC: Anabella Núñez MD; Darrel Bean MD Sanding Machine Tender: Signed 30-Sep-2018 Chest 1 View (Portable) Result: Comments: See Note; NOTES: [facility] Imaging Services [address] [place] [address] Chest 1 View (Portable) MR#: [id number] Acct: [id number] Name: MAYRA GHOSH Rep #: [id number] : 1940 78 From: Nereyda Barr MD PCP: Anabella Núñez MD Status: REG ER Study: Chest 1 View (Portable) Date of Exam: 09/30/18 Exam# [id number] Ordering Dr: Jennifer Sibley MD STUDY: X-RAY [...] CC: MD Zelalem palma; Anabella Núñez MD Sanding Machine Tender: Signed 22-Sep-2018 History and Physical Exam Result: Comments: See Note; NOTES: [facility] Medical Records Department [address] [place] [address] History and Physical 09/22/18 0602 MR#: [id number] Acct: [id number] Name: JETHRO GHOSH Rep #: [id number] : 1940 78 From: Etta Grey PCP: [...] Qualifiers: Coronary Disease-Associated Artery/Lesion type: bypass graft [place] vs. 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) CABG 1988; Reoperation CABG x3 SVG to LAD, SVG to Rt PDA, Radial artery to OM-2 10/08/02; [facility] 03/10/2016 Ventricular tachycardia (paroxysmal) (Chronic) ICD (implantable cardioverter-defibrillator) in place (Chronic 11/2001) Implant 12/10/2001 ICD replacement 06/10/2009, 06/05/2014, Systolic CHF, chronic (Chronic) Cardiomyopathy, ischemic (Chronic) CKD (chronic kidney disease), stage II (Chronic) Type I I diabetes mellitus, uncontrolled (Chronic) Esophageal reflux (Chronic) HLD (hyperlipidemia) (Chronic) HTN (hypertension) (Chronic) Hypothyroidism (Chronic) Sleep apnea (Chronic) Medical History: [facility] History (Last Reviewed 08/30/18 @ 13:48 [...] Hypokalemia (Chronic) E87.6 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 Code Visit OBSV E AND M: 60501 Initial observation care L3 09/22/18 0634 <Electronically signed by Etta Grey > Date Etta Grey Cosign er Signature: Date (if applicable) CC: Etta Grey; Anabella Núñez MD Signed 22-Sep-2018 Emergency Department Summary Result: Comments: See Note; NOTES: [facility] Medical Records Department [address] [place] [address] Emergency Department Summary 09/22/18 0619 MR#: [id number] Acct: [id number] Name: MAYRA GHOSH Rep #: [id number] : 1940 78 From: Juan C Winston [...] Epiploic appendagitis This note was generated with Pric[employer] Engine dictation software. It may contain incorrect words, spelling, and punctuation that were not noted in review of the [facility] rt prior to signing ED Disposition - Plan for ED Patient: Chief Complaint: Nausea/Vomiting Referrals: Anabella Núñez MD [Primary Care Provider] - What to do if you have Problems For any increased pain, shortness of breath, bleeding, nausea or vomiting, chest pain, or any unexpected problems, contact your Primary Care Provider. Call [facility] ([phone]) or report to the closest Emergen cy Room. Call 911 if necessary. 09/22/18 0621 <Electronically signed by Juan C Winston MD> Date Juan C Bethigner Signpauletteur e (If Indicated): Date CC: Anabella Núñez MD 22-Sep-2018 Abdomen/Pelvis without Cont Result: Comments: See Note; NOTES: [facility] Imaging Services [address] [place] [address] Abdomen/Pelvis without Cont MR#: [id number] Acct: [id number] Name: MAYRA GHOSH Rep #: [id number] : 1940 M 78 From: Vernon Coronel MD PCP: Anabella Núñez MD Status: REG ER Study: Abdomen/Pelvis without Cont Date of Exam: 09/22/18 Exam# [id number] Ordering Dr: Juan C Winston MD STUDY: [...] Anabella Núñez MD; Juan C Winston MD Sanding Machine Tender: Signed 30-Aug-2018 Cardiology Visit Report Result: Comments: See Note; NOTES: [facility] [address] [place] [address]. [address] [place] [address] OFFICE VISIT Date of Service: 08/30/18 MR#: [id number] Acct: [id number] Name: MAYRA GHOSH Re p #: [id number] : 1940 Provider: Amando Hu MD Age/Sex: 78/M [place] [facility] 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 Contrast injection was metcnr0tu. Mildly dilated left ventricle. Moderately severe segmental [...] peak blood pressure of 116/66 mmHg. The [facility] ECG demonstrated normal sinus rhythm with a [...] an LVEF of 26%. Cardiac cath: 016: [place], [place] II. SELECTIVE CORONARY ANGIOGRAPHY: A. The [...] The circumflex system is not visualized on nikolski left coronary inj ection, but rather faint [...] add ramipril - lCD programmed ON ICD [employer] Principal: [employer] Name: Agilis Systemsa S CRTD Model #: DTBB 1D1 Serial #: [id number] Date Implanted: 06/05/2014 Device Characteristics Device: Biventricular Type: Implantable defibrillator Remote:[facility] Assessment AND Plan 1. CAD in nikolski artery I25.10 Plan At the present time [...] is on dual antiarrhythmic therapy per his maturity checker. He appears to be tolerating the medications [...] Code Off vis,est,level 4 Diagnoses CAD in nikolski artery I25.10 Postsurgical aortocoronary bypass status Z95.1 [...] Code Off vis,est,level 4 Diagnoses CAD in nikolski artery I25.10 Postsurgical aortocoronary bypass status Z95.1 [...] M.D. 30-Aug-2018 12 Lead EKG performed by [facility] Result: Comments: See Note; NOTES: [facility] [address] [place] [address] 12 Lead EKG performed by [facility] 08/30/18 1425 MR#: [id number] Acct: [id number] Name: MAYRA GHOSH Rep #: [id number] : 1940 78 From: Amando Hu MD Attending Dr: Amando Hu MD Status: DEP AMB Ordering Dr: Amando Hu MD Date: 08/30/18 Location: [facility] Sex: M C Admitted: O RDER #: [id number] [facility]12 Lead EKG performed by [facility] ECG Report Interpretation Electronic ventricular pacemaker Pacemaker ECG, No further analysis Electronically signed on 2017 at 15:23 by Amando Hu Software Version 8610 08/30/18 1524 Date Amando Hu MD CC: Anabella Núñez MD Date Dictated: 08/30/18 Date Transcribed: 08/30/181424 Sanding Machine Tender: PM Signed 14-Aug-2018 Pacemaker Check Result: Comments: See Note; NOTES: [facility] [address] [place] [address] Pacemaker Check Date of Service: 08/14/18 162 MR#: [id number] Acct: [id number] Name: CLARE GHOSH W Rep #: [id number] : 1940 From: Kristie Perry Age/Sex: 78/M Location[place] [facility] [place] Status: Signed Billing Codes ICD Device Billing: ICD Dev Interrogate (Rmt) 08/14/18 1623 <Electroni jacque signed by Kristie Perry > Date Kristie Perry 08/14/18 164<Electronically signed by Amando Hu MD> Wei Rodney e: Date (if applicable) Amando Hu MD CC: 30-Jul-2018 Pacemaker Check Result: Comments: See Note; NOTES: [facility] [address] [place] [address] Pacemaker Check Date of Service: 07/30/18 0949 MR#: [id number] Acct: [id number] Name: CLARE GHOSH W Rep #: [id number] : 1940 From: Kristie Perry Age/Sex: 78/M [place] [facility] [place] Status: Signed Billing Codes ICD Device Billing: ICD Dev Interrogate (Rmt) 07/30/18 0951 <Electroni jacque signed by Kristie Perry > Date Kristie Perry 07/30/18 1047<Electronically signed by Amando Hu MD> Wei Signsanaz e: Date (if applicable) Amando Hu MD CC: 07-May-2018 Pacemaker Check Result: Comments: See Note; NOTES: [facility] [address] [place] [address] [address] [place] [address] Pacemaker Check Date of Service: 05/07/181649 MR#: [id number] Acct: [id number] Name: CLARE GHOSH Rep #: [id number] : 1940 From: Kristie Perry Age/Sex: 78/M [place] [facility] [place] Status: Signed Billing Codes ICD Device Billing: ICD Dev Interrogate ([facility]) 05/07/18 1654 <Electroni jacque signed by Kristie Perry > Date Kristie Perry 05/07/18 175<Electronically signed by Amando Hu MD> Wei Signsanaz e: Date (if applicable) Amando Hu MD CC: 22-Feb-2018 Cardiology Visit Report Result: Comments: See Note; NOTES: [facility] [place] [address] OFFICE VISIT Date of Service: 02/22/18 MR#: [id number] Acct: [id number] Name: MAYRA GHOSH Re p #: [id number] : 1940 Provider: Amando Hu MD Age/Sex: 77/M Location[place] [facility] Status: Signed HPI HPI Details: MAYRA GHOSH, is a 77 M who presents to the office today for for outpatient card iovascular follow-up. He has been hospitalized at [facility] in December of this year for concerns [...] mg PO QWEEK PRN tab 02/22/18 [History] [facility] Medical His tory HLD (hyperlipidemia) (Chronic) [...] (Chronic) Hypokalemia (Chronic) Atherosclerotic heart disease of nikolski coronary artery witho ut angina pectoris (Chronic) [...] his underlying renal status. 2. Atherosclerosis of nikolski coronary artery of nikolski heart without angina pectoris I25.10 CABG 1988; Reoperation CABG x3 SVG to LAD, SVG to Rt PDA, Radial artery to OM-2 10/08/02; VT ablation [facility] 01[facility] 03/10/2016 Plan He does have a [...] Systolic CHF, chronic I50.22 Atherosc lerosis of nikolski coronary artery of nikolski heart without angina pectoris I25.10 [place] vs. transplanted heart: nikolski heart Postsurgical aortocoronary bypass status Z95.1 Cardiomyopathy, [...] Diagnoses Systolic CHF, chronic I50.22 Atherosclerosis of nikolski coronary artery of nikolski heart without angina pectoris I25.10 [place] vs. transpla nted heart: nikolski heart Postsurgical aortocoronary bypass status Z95.1 Cardiomyopathy, [...] Pacemaker Check Result: Comments: See Note; NOTES: [facility] [address] [place] [address] Pacemaker Check Date of Service: 02/11/181907 MR#: [id number] Acct: [id number] Name: CLARE GHOSH Rep #: [id number] : 1940 From: Kristie Perry Age/Sex: 77/M [place] [facility] [place] Status: Signed Comments Summary Comments: Remote Bi-VICD [...] Location: remote Interview Reason: scheduled follow up [employer] Principal: [employer] Name: Viva S GLOST KILN PLACER-D Model: UQPO4A6 Serial #: [id number] Implant Date: 06/05/14 Year(s): 3 Implant Physician: Dr. Saturnino Oquendo/[facility] Patient Characteristics Ventricular Indication: Nonsustained VT, Sustaned VT Patient Substrate: Ischemic cardiomyopathy Ejection fraction %: 35 to 39 ( 02/2017) By: Echo Pacemaker Dependent: No Device Characteristics Device: Biventricular Type: Implantable defibrillator Remote Follow-Up: [employer] Leads Lead #1 [employer] Principal Lead 1: [place] Model Lead 1: 2088TC Serial# Lead 1: [id number] Date Implanted Lead 1: 06/05/14 Position Lead 1: RA Lead #2 [employer] Principal Lead 2: [employer] Model Lead 2: 6947 Serial# Lead 2: [id number] Date Implanted Lead 2: 11/09 Lead #3 [employer] Principal Lead 3: [place] Model Lead 3: 1258T Serial# Lead 3: [id number] Date Implanted Lead 3: 06/05/14 Position Lead [...] View (Portable) Result: Comments: See Note; NOTES: [facility] Imaging Services [address] [place] [address] Chest 1 View (Portable) MR#: [id number] Acct: [id number] Name: MAYRA GHOSH Rep #: [id number] : 1940 77 From: Renae Coleman MD PCP: Anabella Núñez MD Status: [facility] ER Study: Chest 1 View (Portable) Date of Exam: 01/18/18 Exam# [id number] Ordering Dr: Bennie Hernandez MD STUDY: X-RAY [facility] REASON FOR EXAM: Male, 77 [...] CC: Anabella Núñez MD; Bennie Hernandez MD Sanding Machine Tender: Signed 09-Jan-2018 Chest PA and Lateral Result: Comments: See Note; NOTES: [facility] Imaging Services [address] [place] [address] Chest PA and Lateral MR#: [id number] Acct: [id number] Name: MAYRA GHOSH Rep #: [id number] : 1940 [facility] From: Louis Sue MD PCP: Anabella Núñez MD Status: REG CLI Study: Chest PA and Lateral Date of Exam: 01/09/18 Exam# [id number] Ordering Dr: Delisa Gordon DO STUDY: X-RAY [...] Louis Sue MD at 12:59 EDT Tel [phone], Service support , CC: Anabella Núñez MD; Delisa Gordon DO Sanding Machine Tender: Signed 07-Jan-2018 Inital Evaluation (1) - PT Result: Comments: See Note; NOTES: [facility] [facility] [place], [place] [address] Fax REHABILITATION SERVICES INITIAL EVALUATION MR#: [id number] Acct: [id number] Name: MAYRA GHOSH Rep #: [id number] : 1940 77 From: Polo Bedolla DPT, OCS, CSCS Referring Dr.: CLARI Smith Status: REG RCR Insurance: [facility] SELF PAY INSURANCE Patient's Visit Information MAYRA GHOSH is a 77 year old M referred to Physical Therapy by Krystal Smith NP-C WOOD FURNITURE ASSEMBLER.ODY with a diagnosis of unsteady. Date of Evaluation: 01/03/18 P hysical Therapist: Polo Bedolla DPT, OC - Visit Plan Plan: Pt doesn not want to undergo further balance or strength at this time as he can and will continue on his own as planned. He has no falls nor does he feel unsteady. He does wihs to undergo short haul driver evaluation and he understands that we do not do that at [facility] and the closest place to my knowledge is in [place]. He understands doctors offic e has written a script for that and is awaiting their referral phone call. Otherwise he will continue ex as planned in previous discharge summary. - Subjective Subjective: Dizzyness and balance the jagdish e as last week. Not sure why he is here. Saw both doctors last week and said he was fine. Will workout at [facility] I adn continue HEP of balance ex as taught to him. Does nto wish to have balance PT. Thought he was having short haul driver evaluation. No other major changes since [...] to be FAXED BACK to us at [phone] for Medicare purposes. Please let me know [...] Summary (1) Result: Comments: See Note; NOTES: [facility] [address] [place] [address] Fax REHABILITATION SERVICES RICARDO CONTRERAS SUMMARY MR#: [id number] Acct: [id number] Name: MAYRA GHOSH Rep #: [id number] : 1940 77 From: Polo Bedolla DPT, OCS, CSCS Referring Dr.: Anabella Núñez MD Status: REG RCR Insurance: [facility] SELF PAY INSURANCE HP - PT [...] please feel free to call me at [phone]. Thank you for the referral of this patient. Sincerely, Polo Jewell am, DPT, OC <Electronically signed by Polo Bedolla DPT, OCS, CSCS> 12/25/17 0906 CC: Anabella Núñez MD EBG Signed 10-Dec-2017 Office Visit Report Result: Comments: See Note; NOTES: [facility] [address] [place] [address] OFFICE VISIT Date of Service: 10/25/17 MR#: [id number] Acct: [id number] Patient: MAYRA GHOSH Rep #: [id number] : 1940 Provider: Kristie Perry Age/Sex: 77/M [place] [facility] [place] Status: Signed Device Device Date Interviewed: 10/25/17 Follow-up Location: remote Interview Reason: scheduled follow up Man ufacturer: Medtronic Name: Viva S GLOST KILN PLACER-D Model: [id number] Serial #: [id number] Implant Date: 06/05/14 Year(s): 3 Implant Physician: Dr. Saturnino Oquendo/[facility] Patient Characteristics Ventricular Indication: Nonsu stained VT, Sustaned VT Patient Substrate: Ischemic cardiomyopathy Ejection fraction %: 35 to 39 (02/2017) By: Echo Underlying rhythm: Sinus rhythm (1st degree AVB and frequent PVC's) Pacemaker Dependen t: No Device Characteristics Device: Biventricular Type: Implantable defibrillator Remote Follow-Up: [employer] Leads Lead #1 [employer] Principal Lead 1: [employer] Model Lead 1: 2088TC Serial# Lead 1: [id number] Date Implanted Lead 1: 06/05/14 Position Lead 1: RA Lead #2 [employer] Principal Lead 2: Medtronic Model Lead 2: 6947 Serial# Lead 2: [id number] Date Implanted Lead 2: 11/09/01 Lead #3 [employer] Principal Lead 3: [employer] Model Lead 3: 1258T Serial# Lead 3: [id number] Date Implanted Lead 3: 06/05/14 Position Lead [...] - PT Result: Comments: See Note; NOTES: [facility] [address] [place] [address]. [address] [place], [place] [address] Fax REHABILITATION SERVICES INITIAL EVALUATION MR#: [id number] Acct: [id number] Name: MAYRA GHOSH Rep #: [id number] : 1940 77 From: Polo Bedolla DPT, OCS, CSCS Referring Dr.: Anabella Núñez MD Status: REG R [facility] Patient's Visit Information MAYRA [...] wear him out to get to the [employer]. Normally works out at [employer] with balance ex. Feels like vik jane [...] to be FAXED BACK to us at [phone] for Medicare purposes. Please let me know if there are questions or concerns regarding this plan of care. Physician Signature: Date: <Electronically sig favian by Polo Bedolla DPT, OCS, CSCS> 12/03/17 0942 CC: Anabella Núñez MD EBG Signed For Medicare only, by signing this I certify the plan of care. Physicians Signature Date 14-Nov-2017 Cardiology Visit Report Result: Comments: See Note; NOTES: [facility] [place] [address] OFFICE VISIT Date of Service: 11/14/17 MR#: [id number] Acct: [id number] Name: MAYRA GHOSH Varsha p #: [id number] : 1940 Provider: Amando Hu MD Age/Sex: 77/M [place] [facility] 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 At that time he had [...] last diagnostic cardiac catheterization was performed at [facility] in [place], [place] on 03/08/2016. At that ti me [...] CABG was performed on 10/08/2002 at the [facility]. 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 transplanted heart: justin mary heart Postsurgical [...] and Lateral Result: Comments: See Note; NOTES: [facility] Imaging Services [address] [place] [address] Chest PA and Lateral MR#: [id number] Acct: [id number] Name: MIRELAMAYRA Willams Rep #: [id number] : 1940 77 From: Nereyda Barr MD PCP: Anabella Núñez MD Status: REG CLI Study: Chest PA and Lateral Date of Exam: 11/11/17 Exam# [id number] Ordering Dr: Anabella Núñez MD STUDY: X-RAY [...] Service support , CC: Anabella Núñez MD Sanding Machine Tender: Signed 30-Oct-2017 Office Visit Report Result: Comments: See Note; NOTES: [facility] Services [address] [place] [address] [place] [address] OFFICE VISIT Date of Service: 10/25/17 MR#: [id number] Acct: [id number] Patient: MAYRA GHOSH Rep #: [id number] : 1940 Provider: Kristie Perry Age/Sex: 77/M Location: [facility] [place] Status: Signed Device Device Date Interviewed: 10/25/17 Follow-up Location: remote Interview Reason: scheduled follow up Man ufacturer: Medtronic Name: Viva S GLOST KILN PLACER-D Model: [id number] Serial #: [id number] Implant Date: 06/05/14 Year(s): 3 Implant Physician: Dr. Saturnino Oquendo/[facility] Patient Characteristics Ventricular Indication: Nonsu stained VT, Sustaned VT Patient Substrate: Ischemic cardiomyopathy Ejection fraction %: 35 to 39 (02/2017) By: Echo Underlying rhythm: Sinus rhythm (1st degree AVB and frequent PVC's) Pacemaker Dependen t: No Device Characteristics Device: Biventricular Type: Implantable defibrillator Remote Follow-Up: [employer] Lead #1 [employer] Principal Lead 1: [employer] Model Lead 1: 2088TC Serial# Lead 1: [id number] Date Implanted Lead 1: 06/05/14 Position Lead 1: RA Lead #2 [employer] Principal Lead 2: [employer] Model Lead 2: 6947 Serial# Lead 2: [id number] Date Implanted Lead 2: 11/09/01 Lead #3 [employer] Principal Lead 3: [employer] Model Lead 3: 1258T Serial# Lead 3: [id number] Date Implanted Lead 3: 06/05/14 Position Lead [...] Summary (1) Result: Comments: See Note; NOTES: [facility] [address] [place] [address]. [address] [place] [address] Fax REHABILITATION SERVICES DISCHAR SUMMARY MR#: [id number] Acct: [id number] Name: MAYRA GHOSH Rep #: [id number] : 1940 77 From: Polo Bedolla DPT, OCS, CSCS Referring DrDusty: CLARI Smith Status: REG RCR [facility] PT D/C Summary It has been my pleasure to treat MAYRA GHOSH under orders from Krystal Smith, WOOD FURNITURE ASSEMBLER-C, for the diagnosis of debility, intracranial hemmorhage [...] please feel free to call me at [phone]. Thank you for the referral of this patient. Sincerely, Polo Bedolla, DPT, OC <Electronically signed by Polo WILSONT, OCS, CSCS> 10/15/17 0645 CC: CLARI Smith; Anabella Núñez MD EBG Signed 24-Sep-2017 D/C Summary- SP Result: Comments: See Note; NOTES: [facility] [address] [place] [address] Rd. [address] [place] [address] Fax REHABILITATION SERVICES DISCHAR GE SUMMARY MR#: [id number] Acct: [id number] Name: MAYRA GHOSH Rep #: [id number] : 1940 77 From: Darlin Wilson M.S., CCC-SUPERVISOR HOT STRIP MILL Referring DrDusty: CLARI Smith Status: REG RCR Insurance: AET NA [facility] Discharge Summary - Discharged: Discharge: Mayra [...] CI <Electronically signed by Darlin Wilson M.S., CCC-SUPERVISOR HOT STRIP MILL&#6 2; 09/24/17 1428 CC: CLARI Smith; Anabella Núñez MD MO Signed 21-Sep-2017 OT D/C Summary Result: Comments: See Note; NOTES: [facility] [address] [facility] [place], [place] [address] Fax REHABILITATION SERVICES DIS CHARGE SUMMARY MR#: [id number] Acct: [id number] Name: MAYRA GHOSH Rep #: [id number] : 1940 77 From: Ev Rahman Referring [...] MMT. Additional strength assessments are as follows: probate paralegal R 85, L 75; lateral R 15, [...] Resume Hobbies Goal:: Pt. to increase R probate paralegal strength by 15 -20 lbs to promote [...] please fell free to call me at [phone]. Thank you for the referral of this patient. Sincerely, Ev Rahman <Electronically signed by Ev Rahman > 09/21/17 1203 CC: CLRAI Smith; Anabella Núñez MD KMB Signed 18-Sep-2017 Re-Evaluation - PT (1) Result: Comments: See Note; NOTES: [facility] [address] [place] [address]. [address] [place] [address] Fax REEVALUATION / MEDICARE RECERTI [facility] PHYSICAL THERAPY MR#: [id number] Acct: [id number] Name: MAYRA GHOSH Rep #: [id number] : 1940 77 From: Polo Bedolla DPT, OCS, CSCS Referring DrDusty: CLARI Smith Status: REG RCR Insura nce: [facility] Krystal Smith, WOOD FURNITURE ASSEMBLER-C, It has been my pleasure to treat [...] not hesitat e to contact me at [phone] by phone or if you have questions or concerns regarding this new plan of care! Sincerely, Polo Bedolla, DPT, OC <Electronically signed by Pk Bedolla DPT, OCS, CSCS> 09/18/17 0922 CC: CLARI Smith; Anabella Núñez MD EBG Signed For Medicare only, by signing this I certify the plan of care. Physicians Signature Date 03-Sep-2017 OT General Evaluation Result: Comments: See Note; NOTES: [facility] [place] [address] Fax REHABILITATION SERVICES IN TIA EVALUATION MR#: [id number] Acct: [id number] Name: MAYRA GHOSH Rep #: [id number] : 1940 77 From: Ev Rahman Referring Dr.: CLARI Smith Status: REG [facility] Date: Patient's Visit Information MAYRA GHOSH is a 77 year old M, referred to Occupational Therapy by Krystal Smith NP-C,, with a diagnosis of fall-related intracranial hemorrhage s/pcraniotomy. D ate of Evaluation: 08/27/17 Occupational Therapist: Ev Rahman - Subjective Subjective: Pt., Mayra, had fall july 03 and he was admitted into [facility]. present for evaluation and no johnathan that while in hospital he has multiple seizures. HE was transferred up to [place] in which craniotomy was preformed to help decrease pressure on brain as is was continuing to swell. While in [facility] after surgery he was intubated due [...] L 4/5 Wrist: R 3+/5, L 4/5 Glue Spreading Machine Operator: R 75, L 79 Lateral Pinch: R [...] - Goals Goal:: Pt. to increase R probate paralegal strength by 15-20 lbs to promote increased [...] services to promote increasing B UE strength, probate paralegal and FMC strength, finger dexterity, B hand [...] to be FAXED BACK to us at [phone] for Medicare purposes. Please let me know if there are questions or concerns regarding this plan of care. Physician Signature: Date: <Electronically signed by Ev Rahman > 09/03/17 1032 CC: CLARI Smith; Anabella Núñez MD KMWoody Signed For Medicare only, by signing this I certify the plan of care. Physicians Signature Date 29-Aug-2017 Inital Evaluation (1) - PT Result: Comments: See Note; NOTES: [facility] [address] [place] [address] Fax REHABILITATION SERVICES INITIAL EVALUATION MR#: [id number] Acct: [id number] Name: MAYRA GHOSH Rep #: [id number] : 1940 77 From: Polo Bedolla DPT, OCS, CSCS Referring Dr.: CLARI Smith Status: REG R Insurance: [facility] Patient's Visit Information MAYRA GHOSH is a 77 year old M referred to Physical Therapy by Krystal Smith NP-Vandana with a diagnosis of debility, intracranial hemmorhage. Date of Evaluation: 08/27/17 [facility] sical Therapist: Polo Bedolla, LINUS, OC - [...] to be FAXED BACK to us at [phone] for Medicare purposes. Please let me know [...] - SP Result: Comments: See Note; NOTES: [facility] [address] [place] [address] Fax REHABILITATION SERVICES INITIAL EVALUATION MR#: [id number] Acct: [id number] Name: MAYRA GHOSH Rep #: [id number] : 1940 77 From: Tracy Hartman Referring DrDusty: CLARI Smith Status: REG R Insurance: [employer] - History Date of Eval: 08/27/17 Medical Diagnosis (from RX): debility s/p craniotomy Previous speech therapy: Yes Results: Pt received ST services in [facility] for primarily word finding deficits. Oth er Relevant Medical History/Diagnoses/Surgery: Pt had a fall which resulted in a craniectomy relieve pressure. Pt was at [facility], then [facility], back to [facility], and back to [facility]. Medications related to this diagno sis: [place], [...] Lead Electrocardiogram Result: Comments: See Note; NOTES: [facility] Cardiovascular Services [address] [place] [address] 12 Lead EKG 07/04/171649 MR#: [id number] Acct: [id number] Name: MAYRA GHOSH Rep # : [id number] : 1940 77 From: Bennie Ray MD [...] Abnormal ECG Confirmed by BENNIE RAY ([id number]), web content editor YANG BARR ([id number]) on 07/06/2017 10:58:37 AM Referred By: ADONAY Confirmed By:BENNIE RAY 07/06/17 1058 Date Bennie Ray MD CC: Anabella Núñez MD Date Dictated: 07/04/171649 Date Transcribed: 07/04/171649 Sanding Machine Tender: Signed 04-Jul-2017 Emergency Department Summary Result: Comments: See Note; NOTES: [facility] Medical Records Department [address] [place] [address] Emergency Department Summary 07/04/171655 MR#: [id number] Acct: [id number] Name: MAYRA GHOSH Rep #: [id number] : 1940 77 From: Juan C Winston [...] answer some questions after arrival here to [facility] emergency department. notes that he did [...] transfer. Patient will be transf erred to [facility] and was accepted by the emergency [...] via helicopter. Treatment Plan: [] Disposition: Transfer [facility] Impression: Subdural hemorrhage with midline shift Seizures ED Disposition - Plan for ED Patient: Chief Complaint: i taryn Referrals: Anabella Núñez MD [Primary Care Provider] - What to do if you have Problems For any increased pain, shortness of breath, bleeding, nausea or vomiting, chest pain, or any unexpected pr oblems, contact your Primary Care Provider. Call [facility] ([phone]) or report to the closest Emergency Room. Call 911 if necessary. 07/04/17 1700 <Electronically signed by Juan C Winston MD> Date Juan C Winston MD Cosigner Signature (If Indicated): Date CC: Anabella Núñez MD 04-Jul-2017 Brain/Head without Contrast Result: Comments: See Note; NOTES: [facility] Imaging Services [address] [place] [address] Brain/Head without Contrast MR#: [id number] Acct: [id number] Name: MAYRA GHOSH Rep #: [id number] : 1940 [facility] From: Darrel Lopez MD PCP: Anabella Núñez MD Status: DEP ER Study: Brain/Head without Contrast Date of Exam: 07/04/17 Exam# [id number] Ordering Dr: Juan C Winston MD STUDY [...] Anabella Núñez MD; Juan C Winston MD Sanding Machine Tender: Signed 04-Jul-2017 Chest 1 View (Portable) Result: Comments: See Note; NOTES: [facility] Imaging Services [address] [place] [address] Chest 1 View (Portable) MR#: [id number] Acct: [id number] Name: MAYRA GHOSH Rep #: [id number] : 1940 77 From: Nadira Pedersen MD PCP: Anabella Núñez MD Status: REG ER Study: Chest 1 View (Portable) Date of Exam: 07/04/17 Exam# [id number] Ordering Dr: Juan C Winston MD STUDY: [...] Nadira Pedersen MD at 17:14 EDT Tel [phone], Service support , Fax CC: Anabella Núñez MD; Juan C Winston MD Sanding Machine Tender: Signed 04-Jul-2017 Spine Cervical without Contras Result: Comments: See Note; NOTES: [facility] Imaging Services [address] [place] [address] Spine Cervical without Contras MR#: [id number] Acct: [id number] Name: MAYRA GHOSH Rep #: [id number] : 1940 [facility] From: Nadira Pedersen MD PCP: Anabella Núñez MD Status: REG ER Study: Spine Cervical without Contras Date of Exam: 07/04/17 Exam# [id number] Ordering Dr: Juan C Winston MD STUDY: [...] Nadira Pedersen MD at 17:19 EDT Tel [phone], Service support , Fa x [phone] CC: Anabella Núñez MD; Juan C Winston MD Sanding Machine Tender: Signed 12-Jun-2017 Operative Report Result: Comments: See Note; NOTES: [facility] Medical Records Department [address] [place] [address] Operative Report 06/12/17 0804 MR#: [id number] Acct: [id number] Name: MAYRA GHOSH Rep #: [id number] : 1940 77 From: Pool Chávez MD PCP: Anabella Núñez MD Status: REG CLI Y Location: [place] [address] Report of Operation Date of Procedure: 06/12/17 [...] and Lateral Result: Comments: See Note; NOTES: [facility] Imaging Services [address] [place] [address] Chest PA and Lateral MR#: [id number] Acct: [id number] Name: MAYRA GHOSH Rep #: [id number] : 1940 M 77 From: Louis Sue MD PCP: Anabella Núñez MD Status: REG CLI Study: Chest PA and Lateral Date of Exam: 06/06/17 Exam# [id number] Ordering Dr: Delisa Gordon DO STUDY: X-RAY [...] Louis Sue MD at 13:58 EDT Tel [phone], Service support , CC: Anabella Núñez MD; Delisa Gordon DO Sanding Machine Tender: Signed 14-Mar-2017 CTA Head W/WO Contrast Result: Comments: See Note; NOTES: [facility] Imaging Services [address] [place] [address] Ver[place] 4d CTA Head W/WO Contrast MR#: [id number] Acct: [id number] Name: MAYRA GHOSH Rep #: [id number] : 1940 [facility] From: Kalli Lowery MD PCP: Anabella Núñez MD Status: REG ER Study: CTA Head W/WO Contrast Date of Exam: 03/14/17 Exam# [id number] Ordering Dr: Gal Glasgow MD [facility] DY: CTA OF THE BRAIN REASON FOR EXAM: Male, 77 years old. DIZZINESS SINCE 8AM HX-HTN,OR,PACER,CABG,CHF RADIATION DOSAGE (If Supplied By Facility): CTDIvol [...] There is no demonstrated aneurysm of the pilot station of [place]. There is no demonstrated abnormality of the visuali zed brain. CT/CTA Head W/WO Contrast IMPRESSION: No evidence of significant stenosis or occlusion of the intracranial arteries. See above. Elect ronically Signed: Kalli Lowery MD at 17:56 EDT Tel , Service support , CC: Anabella Núñez MD; Gal Glasgow MD Sanding Machine Tender: Signed 14-Mar-2017 CTA Neck W/WO Contrast Result: Comments: See Note; NOTES: [facility] Imaging Services [address] [place] [address] Verdana 4d CTA Neck W/WO Contrast MR#: [id number] Acct: [id number] Name: MAYRA GHOSH Rep #: [id number] : 1940 M 77 From: Kalli Lowery MD PCP: Anabella Núñez MD Status: REG ER Study: CTA Neck W/WO Contrast Date of Exam: 03/14/17 Exam# [id number] Ordering Dr: Gal Glasgow MD DHAVAL DY: CTA NECK WITH CONTRAST REASON FOR EXAM: Male, 77 years old. DIZZINESS SINCE 8AM HX-HTN,OR,PACER,CABG,CHF RADIATION DOSAGE (If Supplied By Facility): CTDIvol [...] CC: Anabella Núñez MD; Gal Glasgow MD Sanding Machine Tender: Signed 14-Mar-2017 Chest PA and Lateral Result: Comments: See Note; NOTES: [facility] Imaging Services [address] [place] [address] Verdana 4d Chest PA and Lateral MR#: [id number] Acct: [id number] Name: MAYRA GHOSH Екатерина Rep #: [id number] : 1940 77 From: Kalli Lowery MD PCP: Anabella Núñez MD Status: REG ER Study: Chest PA and Lateral Date of Exam: 03/14/17 Exam# [id number] Ordering Dr: Gal Glasgow MD STUDY: X-RAY [...] CC: Anabella Núñez MD; Gal Glasgow MD Sanding Machine Tender: Signed 02-Nov-2016 Chest PA and Lateral Result: Comments: See Note; NOTES: [facility] Imaging Services [address] [place] [address] Verdana 4d Chest PA and Lateral MR#: [id number] Acct: [id number] Name: MAYRA GHOSH Rep #: [id number] : 1940 M 76 From: Tyshawn Gayle DO PCP: Anabella Núñez MD Status: REG CLI Study: Chest PA and Lateral Date of Exam: 11/02/16 Exam# [id number] Ordering Dr: Amando Hu MD STUDY: X-R [...] Tyshawn Gayle DO at 12:16 EST Tel [phone], Service support [phone], CC: Anabella Núñez MD; Amando Hu MD Sanding Machine Tender: Signed 08-Sep-2016 Kidney and Bladder Result: Comments: See Note; NOTES: [facility] Imaging Services [address] [place] [address] Verdana 4d Kidney and Bladder MR#: [id number] Acct: [id number] Name: MAYRA GHOSH Rep #: [id number] : 1940 76 From: Louis Sue MD PCP: Anabella Núñez MD Status: REG CLI Study: Kidney and Bladder Date of Exam: 09/08/16 Exam# [id number] Ordering Dr: Anabella Núñez MD STUDY: RENAL [...] Louis Sue MD at 15:05 EST Tel [phone], Service support [phone], CC: Anabella Núñez MD Sanding Machine Tender: Signed 13-Sep-2015 Chest PA and Lateral Result: Comments: See Note; NOTES: [facility] Imaging Services [address] [place] [address] Verdana 4d Chest PA and Lateral MR#: [id number] Acct: [id number] Name: Lula GHOSH Rep #: [id number] : 1940 M 75 From: Louis Sue MD PCP: Anabella Núñez MD Status: REG CLI Study: Chest PA and Lateral Date of Exam: 09/13/15 Exam# [id number] Ordering Dr: Daria Lowe STUDY: X-RAY CHEST [...] Louis Sue MD at 12:55 EST Tel [phone], Service support [phone], RAD/Chest PA and Lateral IMPRESSION: No acute abnorma lity is seen. Cardiomegaly. Electronically Signed: Louis Sue MD at 12:55 EST Tel [phone], Service support [phone], CC: Daria Lowe; Anabella Núñez MD Sanding Machine Tender: Signed 13-Sep-2015 Spirometry (94695) Comments: normal Result: 23-Apr-2014 Echocardiogram Complete Result: Comments: See Note; NOTES: [facility] Cardiovascular Services [address] [place] [address] Echo Complete 04/23/14 0954 MR#: [id number] Acct: [id number] Name: CORNELIA GHOSH Rep #: [id number] : 1940 74 From: Amando Hu MD Attending Dr: Amando Hu MD Status: REG CLI Ordering Dr: Amando Hu MD Date: 04/23/14 Location: [facility] Sex: M C Admitted: Procedure [...] Mid- inferoseptal : Akinetic. Mid-anteroseptal : Akinetic. Mills : Hypokinetic. Right Ventricle Normal RV size. [...] max P.7 mmHg TR max P.4 m [facility] E/E' med: 36.0 Interpretation Summary The study [...] MD Date Dictated: 04/23/1454 Date Transcribed: 04/23/142135 Sanding Machine Tender: Signed 21-Jan-2014 Chest PA and Lateral Result: Comments: See Note; NOTES: [facility] Imaging Services [address] [place] [address] Radiology Report MR#: [id number] Acct: [id number] Name: MAYRA GHOSH Rep #: [id number] : 1940 M 73 From: Louis Sue MD PCP: Anabella Núñez MD Status: REG CLI Study: Chest PA and Lateral Date of Exam: 01/21/14 Exam# [id number] Ordering Dr: Anabella Núñez MD STUDY: X [...] M.D. 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 Comments: 50 years ago Status: Active Tobacco use: Former smoker. Status: Inactive Smoking Status Name Dates Details Former smoker Vital Signs Date Test Result Details 13-Fsh-917980:45 Temperature 97.6 f Comments: Method: Temporal Pulse [...] 0.00 cm Results Date Description Value Details 91-Ekb-651352:00 Basic Metabolic Profile (BMP) Comments: REDRAW. PREVIOUS SPECIMEN REJECTED DUE TOHEMOLYSIS. 10/16/181430 Cinthia Mcneal.'TROP' Serial specimen #1, #2, #3, or #4: [facility] [id number] [place], [place], [address] GAP 10 (Normal) Range: 5-15 CO2 26.0 [...] A.D.A. criteria.Please note revised GLUCOSE reference range zzimpncys98/02/2018. 55-Tsp-211456:00 Magnesium Comments: REDRAW. PREVIOUS SPECIMEN REJECTED DUE TOHEMOLYSIS. 10/16/181430 Cinthia Mcneal.'TROP' Serial specimen #1, #2, #3, or #4: [address] [place] [address] [id number] [address] [place], [place], [id number](739) MG 2.1 mg/dL (Normal) Range: 1.6-2.6 23-Dye-883373:00 Troponin-I Comments: REDRAW. PREVIOUS SPECIMEN REJECTED DUE TOHEMOLYSIS. 10/16/18 1431 Cinthia Mcneal.'TROP' Serial specimen #1, #2, #3, or #4: [address] [place] [address] [place], [place], [address] TROPONIN-I 0.022 ng/mL (Normal) Comments: TROPONIN-I EXPECTED VALUES <0.045 Negative 0.045 - 0.590 Consistent with Cardiac Damage > OR = 0.600 Critical Value Not every elevated troponin is indicative of OR. T hesevalues should be used with clinical judgement in examiningthe patient's clinical picture for diagnosis. To establisha diagnosis of OR versus myocardial injury, there must be ademonstrated rise and/ or fall in the troponin values, inaddition to ischemic symptoms, EKG changes, new regionalwall motion abnormality, and/or angiographical evidence. PLEASE NOTE: REFERENCE RANGES EDITED 03/11/1816-Oct-201832-Wtg-876940:00 CBC W/Diff, Automated Comments: [facility] Frwifupbyh9154 [address] [place], [place], [phone](699) Absolute Lymph 1.37 {X10_3/ul} (Normal) Range: 0.83-4.51 [...] 4.4-11.0 30-Sep-20187:13 Basic Metabolic Profile (BMP) Comments: [facility] Biqberkaql1529 [place], [address] GAP 12 (Normal) Range: 5-15 CO2 22.0 [...] criteria.Please note revised GLUCOSE reference range /02/2018. 30-Sep-20187:13 CBC W/Diff, Automated Comments: [facility] Ryptujqvyb5545 [place], [address] Absolute Lymph 1.40 {X10_3/ul} (Normal) [...] K/mm3 (Normal) Range: 4.4-11.0 :13 Troponin-I Comments: [facility] Lqmmpihifm4070 [place], [address] TROPONIN-I 0.030 ng/mL (Normal) Comments: TROPONIN-I EXPECTED VALUES <0.045 Negative 0.045 - 0.590 Consistent with Cardiac Damage > OR = 0.600 Critical Value Not every elevated troponin is indicative of OR. T hesevalues should be used with clinical judgement in examiningthe patient's clinical picture for diagnosis. To establisha diagnosis of OR versus myocardial injury, there must be ademonstrated rise and/ or fall in the troponin values, inaddition to ischemic symptoms, EKG changes, new regionalwall motion abnormality, and/or angiographical evidence. PLEASE NOTE: REFERENCE RANGES EDITED 03/11/1830-Sep-20187:00 Urinalysis, Complete Comments: Order Date: 09/30/18Has pt arrived? YHow was Urine Obtained? [facility] Ivzxdvokyq4[address] [place], [place], [phone] MUCUS, URINE 0 SEEN {/hpf} (Normal) BACTERIA [...] Yellow (Normal) :40 CBC W/Diff, Automated Comments: [facility] Fuplnccdoe7463 [facility] [address]. [place], [place], [address] Absolute Lymph 1.74 {X10_3/ul} (Normal) Range: 0.83-4.51 [...] 4.6-6.2 WBC 7.6 K/mm3 (Normal) Range: 4.4-11.0 84-Gjp-59699:40 Comprehensive Metabolic Profil Comments: [facility] Vyrtkphshx9645 [address] [place], [place], [address] GAP 13 (Normal) Range: 5-15 CO2 27.0 [...] A.D.A. criteria.Please note revised GLUCOSE reference range aqvkpnakt16/02/2018. 44-Csc-77713:40 Lipase Comments: [facility] Bfyjelndln5075 [facility] [address] [place], [place], [address] LIPASE 114 U/L (Normal) Range: 73-393 29-Qfi-689725:18 BNP,B-Type NATRIURETIC PEPTIDE Comments: [facility] Usudfcoyqj9121 [facility] [address] [place], [place], [address]708[address] B-TYPE JUSTIN PEP 734.1 pg/mL (Abnormal) Range: 0-100 47-Gbr-548719:18 CBC-Complete Blood Cnt No Diff Comments: [facility] Qqkixdzylz4611 [facility] [address] [place], [place], [address] MPV 10.4 fL (Normal) Range: 6.2-12.0 PLT [...] 4.6-6.2 WBC 7.2 K/mm3 (Normal) Range: 4.4-11.0 80-Mwz-352350:18 Comprehensive Metabolic Profil Comments: 'TROP' Serial specimen #1, #2, #3, or #4: 1[facility] Wjbpovotwi9947 [place], [address] GAP 10 (Normal) Range: 5-15 CO2 29.0 [...] A.D.A. criteria.Please note revised GLUCOSE reference range fhwsaiigi84/02/2018. 66-Qls-637762:18 KEPPRA (LEVETIRACETAM) Comments: [facility] (refer to report for specific site)refer to report for address and phone number TANNER Comments: TEST RESULT LIMITSLevetiracetam (Keppra), SLevetiracetam, S 29.6 ug/mL 10.0 - 40.0 TESTING PERFO (Normal) [facility] AT [facility]. ORIGINAL REPORT ON FILE IN LAB CONTAINS ADDITIONAL TEST SITE INFORMATION. 58-Vey-027951:18 Thyroid Stim Hormone (TSH) Comments: 'TROP' Serial specimen #1, #2, #3, or #4: [address] [place] [address] Gvkmsqmkad2341 [facility] [place], [address] TSH 2.73 {uIU/mL} (Normal) Range: 0.358-3.74 50-Hdj-566225:18 Troponin-I Comments: 'TROP' Serial specimen #1, #2, #3, or #4: [address] [place] [address] Teoqhsamtm2497 [facility]. [place], [place], [address] TROPONIN-I 0.027 ng/mL (Normal) Comments: TROPONIN-I EXPECTED VALUES <0.045 Negative 0.045 - 0.590 Consistent with Cardiac Damage > OR = 0.600 Critical Value Not every elevated troponin is indicative of OR. T hesevalues should be used with clinical judgement in examiningthe patient's clinical picture for diagnosis. To establisha diagnosis of OR versus myocardial injury, there must be ademonstrated rise and/ or fall in the troponin values, inaddition to ischemic symptoms, EKG changes, new regionalwall motion abnormality, and/or angiographical evidence. PLEASE NOTE: REFERENCE RANGES EDITED 03/11/1810-Sep-201848-Dfm-253995:59 Metabolic Panel, Basic Comments: PATIENT NOT FASTINGPERFORMED BY: [facility] Vehrlo4541 [address] [place] [id number] (08619) Calcium 9.0 mg/dL (Normal) Range: 8.6-10.2 Carbon [...] 8-27 Glucose 177 mg/dL (Abnormal) Range: 65-99 50-Iyv-367614:06 Lipid Profile Comments: [facility] T[address]egfjgqb[address] [place], [place], [address] VLDL 20 mg/dL (Normal) Range: 5-40 LDL [...] 200-240 mg/dL Borderline >240 mg/dL High Risk 93-Xtn-435074:06 Liver Profile Comments: [facility] Ncdeorfope[address] [place], [place], [address] D BILI 0.35 mg/dL (Abnormal) Range: 0.00-0.30 T BILI 0.90 mg/dL (Normal) Range: 0.20-1.00 ALT 26 U/L (Normal) Range: 16-61 ALK P 158 U/L (Abnormal) Range: 45-117 AST 27 U/L (Normal) Range: 15-37 GLOB 4.8 g/dL (Abnormal) Range: 2.2-4.2 ALB 3.4 g/dL (Normal) Range: 3.2-5.0 T PROT 8.2 g/dL (Normal) Range: 6.4-8.2 :25 Tanner (89772) Comments: PATIENT WAS FASTINGPERFORMED BY: PlayFitnessBacharach Institute for RehabilitationXtumfz[address] [place] [address] [id number] BY: Sambazon[address] [id number] Levetiracetam, S 41.3 ug/mL (Abnormal) Range: 10.0-40.0 :25 METABOLIC PANEL, BASIC Comments: PATIENT WAS FASTINGPERFORMED BY: Talkray[address] [place] [address] [id number] BY: Sambazon[address] [id number] (20397) Calcium 9.0 mg/dL (Normal) Range: 8.6-10.2 Carbon [...] Count, Citrated Comments: PATIENT WAS FASTINGPERFORMED BY: [facility]6370 [facility] [id number] BY: [address] [id number] (93331) Plt Count, Citrated Bld 119 {X10E3/uL} (Abnormal) Range: 150-379 28-Qxy-003686:54 HGB A1C (19364) Comments: PATIENT NOT FASTINGPERFORMED BY: [place] [address]20170 [facility] [id number] Hemoglobin A1c 9.0 % (Abnormal) Range: 4.8-5.6 Comments: . Prediabetes: 5.7 - 6.4 Diabetes: >6.4 Glycemic control for adults with diabetes: <7.0 :54 T4, FREE (THYROXINE) (36599) Comments: PATIENT NOT FASTINGPERFORMED BY: [place] 4520170 [facility] [id number] T4,Free(Direct) 1.15 ng/dL (Normal) Range: 0.82-1.77 68-Qlh-653193:54 TSH (10832) Comments: PATIENT NOT FASTINGPERFORMED BY: [place] 4520170 [facility] [id number]; appt 08/19 TSH 2.130 {uIU/mL} (Normal) Range: 0.450-4.500 10-Dhx-009669:20 Rapid Strep Test, Office (65501) Rapid Strep Test, Office Negative (Normal) 58-Fox-166785:46 Metabolic Panel, Basic Comments: PATIENT NOT FASTINGPERFORMED BY: [place] 4520170 [facility] [id number]; fu today DB (43929) Calcium 9.1 mg/dL (Normal) Range: 8.6-10.2 Carbon [...] 8-27 Glucose 227 mg/dL (Abnormal) Range: 65-99 1-Iul-288514:53 Basic Metabolic Profile (BMP) Comments: [facility] Oeasfovxqv5465 [address] [place], [address](541) GAP 12 (Normal) Range: 5-15 CO2 27.0 [...] A.D.A. criteria.Please note revised GLUCOSE reference range sjodxaomn91/02/2018. 8-How-978594:53 Magnesium Comments: [facility] Dbispbjfac2190 [address] [place], [place], [address](715) MG 1.8 mg/dL (Normal) Range: 1.6-2.6 42-Dja-210946:10 Basic Metabolic Panel (8) Comments: PATIENT NOT FASTINGPERFORMED BY: CB [facility] Ujvipl1397 [facility] [id number] BY: BN [facility] [address] [id number] Calcium 9.3 mg/dL (Normal) Range: 8.6-10.2 Carbon [...] 8-27 Glucose 325 mg/dL (Abnormal) Range: 65-99 96-Etk-309749:10 Levetiracetam (Keppra), S Comments: PATIENT NOT FASTINGPERFORMED BY: [employer]s [facility] [id number] BY: [employer] [id number] Levetiracetam, S 66.3 ug/mL (Abnormal) Range: 10.0-40.0 31-Qly-898673:10 Platelet Count on Comments: PATIENT NOT FASTINGPERFORMED BY: [employer] [facility] [id number] BY: Sambazon[address] [id number] Citrated Bld Plt Count, Citrated 85 {X10E3/uL} Range: 150-379 Bld (Abnormal) Comments: Platelet count verified by examination of peripheral blood smear. FDP, Plasma 5 ug/mL (Abnormal) Comments: PATIENT NOT FASTINGPERFORMED BY: [employer] [facility] [id number] BY: [address] [id number] :49 LDH 220 [iU]/L (Normal) Comments: PATIENT NOT FASTINGPERFORMED BY: [employer] Jwctcz6276 [facility] [id number] BY: [address] [id number] :49 Range: 121-224 4-Zwb-507566:49 Methylmalonic Acid, Serum Comments: PATIENT NOT FASTINGPERFORMED BY: [place] 4520170 [facility] [id number] BY: [address] [id number] Disclaimer: [facility] (Normal) Comments: This test was developed and its performance characteristicsdetermined by [employer]. It has not been cleared or approvedby the Food and Drug Administration. Methylmalonic Acid, Serum 195 nmol/L (Normal) Range: 0-378 2-Wlu-523083:49 Platelet Count on Comments: PATIENT NOT FASTINGPERFORMED BY: [facility] AndersonPongrJessica [place] 0740270 [facility] [id number] BY: [address] [id number] Citrated Bld Plt Count, Citrated 108 {X10E3/uL} Range: 150-379 Bld (Abnormal) Vitamin B12 780 pg/mL (Normal) Comments: PATIENT NOT FASTINGPERFORMED BY: [place]Jess[place] 0740270 [facility] [id number] BY: [address] [id number] :49 Range: 232-1245 3-Rlm-492615:49 Renal function Panel Comments: standing order q 3 months; PATIENT NOT FASTINGPERFORMED BY: [place]onJess[place] 0740270 [facility] [id number] BY: [address] [id number] (39920) Albumin 4.3 g/dL (Normal) Range: 3.5-4.8 Phosphorus [...] 8-27 Glucose 244 mg/dL (Abnormal) Range: 65-99 96-Eya-003653:48 Urinalysis, Office (45319) UA - LEUKOCYTE ESTERASE Trace (Normal) UA - NITRITE Negative (Normal) URINE UROBILINGN CASPER TIMED 2 mg/dL (Normal) UA - PROTEIN Trace mg/dL (Normal) UA - PH 6 (Abnormal) UA - BLOOD Negative (Normal) UA - SPECIFIC GRAVITY 1.020 (Normal) UA - KETONES Negative mg/dL (Normal) UA - BILIRUBIN Negative (Normal) UA - GLUCOSE Negative (Normal) 66-Obs-388869:47 CBC W/Diff, Automated Comments: Order Date: 04/25/18Order Info: [id number] - CBCDWAdena [facility] Nkkgpkdbkm2539 [address] [place], [place], [address] Absolute Lymph 1.07 {X10_3/ul} (Normal) Range: 0.83-4.51 [...] 4.6-6.2 WBC 7.9 K/mm3 (Normal) Range: 4.4-11.0 47-Clv-612286:47 Renal Profile Comments: Order Date: 04/25/18Order Info: 0790- 1 - RENALOrder Info: [id number] - TROPOrder Info: [id number] - MGOrder Info: 3016-3 - TSHOrder Info: 3024-7 - T4F'TROP' Serial specimen #1, #2, #3, or #4: [address] [place] [address] Xthbpapelk3181 [place], [place], [address] CO2 27.0 mmol/L (Normal) Range: 21.0-32.0 CL [...] A.D.A. criteria.Please note revised GLUCOSE reference range rztvrmkfe25/02/2018. 36-Fzp-068920:47 Thyroid Stim Hormone (TSH) Comments: Order Date: 04/25/18Order Info: 0790-1 - RENALOrder Info: [id number] - TROPOrder Info: [id number] - MGOrder Info: 3016-3 - TSHOrder Info: 3024-7 - T4F'TROP' Serial specimen #1, #2, #3, or #4: [address] [place] [address] [address] [place], [place], [address] TSH 2.08 {uIU/mL} (Normal) Range: 0.358-3.74 :47 Troponin-I Comments: Order Date: 04/25/18Order Info: 0790-1 - RENALOrder Info: [id number] - TROPOrder Info: [id number] - MGOrder Info: 3016-3 - TSHOrder Info: 3024-7 - T4F'TROP' Serial specimen #1, #2, #3, or #4: [address] [place] [address] [place], [place], [address] TROPONIN-I < 0.015 ng/mL (Normal) Comments: TROPONIN-I EXPECTED VALUES <0.045 Negative 0.045 - 0.590 Consistent with Cardiac Damage > OR = 0.600 Critical Value Not every elevated troponin is indicative of OR. T hesevalues should be used with clinical judgement in examiningthe patient's clinical picture for diagnosis. To establisha diagnosis of OR versus myocardial injury, there must be ademonstrated rise and/ or fall in the troponin values, inaddition to ischemic symptoms, EKG changes, new regionalwall motion abnormality, and/or angiographical evidence. PLEASE NOTE: REFERENCE RANGES EDITED 03/11/1825-Apr-201810-Iph-455443:47 T4, FREE (THYROXINE) (78794) Comments: Order Date: 04/25/18Order Info: 0790-1 - RENALOrder Info: [id number] - TROPOrder Info: [id number] - MGOrder Info: 301-3 - TSHOrder Info: 302-7 - T4F'TROP' Serial specimen #1, #2, #3, or #4: [facility] Afxymtgqcd7682 [place], [address] T4 FREE DIRECT 1.08 ng/dL (Normal) Range: 0.76-1.46 67-Gkg-913072:47 Magnesium (00951) Comments: Order Date: 04/25/18Order Info: 0790- 1 - RENALOrder Info: [id number] - TROPOrder Info: 21205-5 - MGOrder Info: 3 - TSHOrder Info: 7 - T4F'TROP' Serial specimen #1, #2, #3, or #4: [facility] Zmkfvuighv1638 [place], [address] MG 1.9 mg/dL (Normal) Range: 1.6-2.6 53-Ocn-156696:00 CBC WITH MANUAL DIFF (82286) Comments: standing order q 3 months; PATIENT NOT FASTINGPERFORMED BY: [facility] Ioeoog5028 [address] [facility] [id number] Immature Grans (Abs) 0.0 {x10E3/uL} (Normal) Range: [...] 4.14-5.80 WBC 9.0 {x10E3/uL} (Normal) Range: 3.4-10.8 21-Myt-625166:00 MAGNESIUM (62286) Comments: standing order q 3 months; PATIENT NOT FASTINGPERFORMED BY: [employer]6370 [facility] Servicesin [place] [id number] Magnesium 1.7 mg/dL (Normal) Range: 1.6-2.3 12-Dwg-806280:00 PARATHORMONE (68180) Comments: standing order q 3 months; PATIENT NOT FASTINGPERFORMED BY: [employer]6370 [facility] [id number] PTH, Intact 73 pg/mL (Abnormal) Range: 15-65 63-Ywq-061652:00 Renal function Panel (36397) Comments: standing order q 3 months; PATIENT NOT FASTINGPERFORMED BY: [employer]6370 Ceed[facility] TechnologiesUnc Health Johnston Claytonin [place] [id number] Albumin 4.1 g/dL (Normal) Range: 3.5-4.8 Phosphorus [...] 8-27 Glucose 276 mg/dL (Abnormal) Range: 65-99 46-Jye-648253:29 Renal function Panel (49399) Comments: PATIENT WAS FASTINGPERFORMED BY: [facility] Encgoa4703 [facility] [id number]; fu - Albumin 4.4 g/dL (Normal) Range: [...] 8-27 Glucose 198 mg/dL (Abnormal) Range: 65-99 1-Qic-928339:18 HgA1C , Office (38831) HgA1C , Office 7.0 % (Normal) Range: 4.6 - 7.1 77-Oza-99378:46 Basic Metabolic Profile Comments: Comments: Renal InsufficiencyComments: [facility] InsufficiencyWAdena [facility] Dsrryefyyr4663 [address] [place], [address] (SWS) GAP 13 (Normal) Range: 5-15 CO2 24.0 [...] criteria.Please note revised GLUCOSE reference range /02/2018. 06-Kcr-37591:46 Lipid Profile Comments: Comments: Renal InsufficiencyComments: [facility] InsufficiencyReg[facility] Medical Center Dgrvjgtluu6785 [facility]. [place], [place], [address] VLDL 41 mg/dL (Abnormal) Range: 5-40 LDL [...] Liver Profile Comments: Comments: Renal InsufficiencyComments: Ren[facility] InsufficiencyRegional Medical Center Vzfnqsiviq9437 [address] [place], [place], [address] D BILI 0.16 mg/dL (Normal) Range: 0.00-0.30 T BILI 0.50 mg/dL (Normal) Range: 0.20-1.00 ALT 25 U/L (Normal) Range: 16-61 ALK P 104 U/L (Normal) Range: 45-117 AST 29 U/L (Normal) Range: 15-37 GLOB 4.0 g/dL (Normal) Range: 2.2-4.2 ALB 3.5 g/dL (Normal) Range: 3.2-5.0 T PROT 7.5 g/dL (Normal) Range: 6.4-8.2 1-Yez-667876:37 Magnesium (06729) Comments: PATIENT NOT FASTINGPERFORMED BY: LabCoBacharach Institute for RehabilitationOazyvy8063 [facility] [id number] Magnesium 2.1 mg/dL (Normal) Range: 1.6-2.3 8-Dnx-333384:37 Metabolic Panel, Basic (52210) Comments: PATIENT NOT FASTINGPERFORMED BY: LabCoBacharach Institute for RehabilitationZwkqwr9178 [facility] [id number] Calcium 9.0 mg/dL (Normal) Range: 8.6-10.2 Carbon [...] 8-27 Glucose 284 mg/dL (Abnormal) Range: 65-99 56-Cwe-183692:57 Bedside Glucose Comments: [facility] LaboratoryPoint of Bqgc8760 [place] [address] BEDSIDE GLU 381 mg/dL (Abnormal) Range: 70-110 Comments: MANAGEMENT OF PATIENT CARE PER NURSING PROTOCOL 33-Gjn-117485:50 Acetone Serum Comments: [facility] [address]hybqpobrg[address] [place], [address] ACETONE SERUM NEGATIVE (Normal) 42-Ovo-407247:50 Basic Metabolic Profile (BMP) Comments: 'TROP' Serial specimen #1, #2, #3, or #4: 1WAdena [facility] Akhyqzlusx5024 [address], [address] GAP 9 (Normal) Range: 5-15 [...] A.D.A. criteria.Please note revised GLUCOSE reference range lbjwsfluq63/02/2018. 88-Trg-417802:50 BNP,B-Type NATRIURETIC PEPTIDE Comments: [facility] Nxrancolen4745 [address] [place], [place], [address] B-TYPE JUSTIN PEP 386.1 pg/mL (Abnormal) Range: 0-100 18-Ige-840764:50 CBC W/Diff, Automated Comments: [facility] Jkvdmycvlo9205 [place], [address] Absolute Lymph 1.11 {X10_3/ul} (Normal) [...] 4.6-6.2 WBC 9.7 K/mm3 (Normal) Range: 4.4-11.0 19-Wel-272835:50 Troponin-I Comments: 'TROP' Serial specimen #1, #2, #3, or #4: [address] [place] [address] Elegnppldt5557 [facility]. [place], [place], [address] TROPONIN-I 0.03 ng/mL (Normal) Comments: TROPONIN-I EXPECTED VALUES <0.05 NEGATIVE 0.06 - 0.59 AT RISK OF OR > OR = 0.60 SUGGEST OR 59-Vui-655311:51 Renal Profile Comments: Order Date: 01/18/18Order Info: 0790- 1 - RENALOrder Info: [id number] - TROP'TROP' Serial specimen #1, #2, #3, or #4: [address] [place] [address] Rptszspvjc7706 [facility] [place], [phone] CO2 29.0 mmol/L (Normal) Range: 21.0-32.0 [...] A.D.A. criteria.Please note revised GLUCOSE reference range gnbhieybt27/02/2018. 15-Kkc-192046:51 Troponin-I Comments: Order Date: 01/18/18Order Info: [id number] - RENALOrder Info: [id number] - TROP'TROP' Serial specimen #1, #2, #3, or #4: [facility] Pkeaggfghp5638 [place], [phone] TROPONIN-I 0.02 ng/mL (Normal) Comments: TROPONIN-I EXPECTED VALUES <0.05 NEGATIVE 0.06 - 0.59 AT RISK OF OR > OR = 0.60 SUGGEST OR 47-Rsa-070762:16 HgA1C , Office (32167) HgA1C , Office 7.7 % (Abnormal) Range: 4.6 - 7.1 05-Xau-405091:47 Basic Metabolic Profile (BMP) Comments: CALL RESULTS TO [phone] Medical Center Mzygugrlok7414 [place], [address] GAP 8 (Normal) [...] 200 mg/dLsuggests DIABETES MELLITUS per A.D.A. criteria. 25-Laf-461646:47 BNP,B-Type NATRIURETIC PEPTIDE Comments: CALL RESULTS TO [phone] Medical Center Wjimhoraqr7[address] [place] [address], [address] B-TYPE JUSTIN PEP 580.2 pg/mL (Abnormal) Range: 0-100 71-Zgo-391386:47 CBC W/Diff, Automated Comments: CALL RESULTS TO [phone] Medical Center Etyyozckcu9390 [place], [address] Absolute Lymph 0.67 {X10_3/ul} (Abnormal) [...] 4.6-6.2 WBC 5.6 K/mm3 (Normal) Range: 4.4-11.0 67-Owa-718848:47 Thyroid Stim Hormone (TSH) Comments: CALL RESULTS TO [phone] Medical Center Tqxgkkxxaq019[address] [place] [address], [phone] TSH 2.08 {uIU/mL} (Normal) Range: 0.358-3.74 03-Ppo-99417:51 CBC, Platelets & Auto Diff Comments: PATIENT WAS FASTINGPERFORMED BY: [facility] Diucly4179 [facility] [id number] (51612) Immature Grans (Abs) 0.0 {x10E3/uL} (Normal) Range: [...] 4.14-5.80 WBC 8.6 {x10E3/uL} (Normal) Range: 3.4-10.8 39-Khr-01172:51 Metabolic Panel, Comprehensive Comments: PATIENT WAS FASTINGPERFORMED BY: LabCoBacharach Institute for RehabilitationRpzaca0983 [facility] [id number] (48729) ALT (SGPT) 16 [iU]/L (Normal) Range: 0-44 [...] 8-27 Glucose 122 mg/dL (Abnormal) Range: 65-99 76-Nfp-15577:51 TSH (30492) Comments: PATIENT WAS FASTINGPERFORMED BY: LabCoBacharach Institute for RehabilitationUnbazt8288 [facility] [id number] TSH 5.070 {uIU/mL} (Abnormal) Range: 0.450-4.500 29-Bov-79130:51 CALCIFIDIOL (65136) VIT D 25 Comments: PATIENT WAS FASTINGPERFORMED BY: [facility] Owbpwz2381 [facility] [id number] Vitamin D, 25-Hydroxy 27.8 ng/mL (Abnormal) Range: 30.0-100.0 Comments: Vitamin D deficiency has been defined by the [place] of[facility] [place] and an Endocrine Society practice guideline as alevel of serum 25-OH vitamin D less than 20 ng/mL (1,2).The Endocrine Society went on to further define vitamin Dinsufficiency as a level between 21 and 29 ng/mL (2).1. IOM ([place] of Medicine). 2010. Dietary reference intakes for calcium and D. [place]: The National Academies Press.2. Yanna MF, Maral [place], Xander EDGAR, et al. Evaluation, treatment, and prevention of vitamin D deficiency: an Endocrine Society clinical practice guideline. JCEM. 2010; 96(7):1911-30. :51 Magnesium (40139) Comments: PATIENT WAS FASTINGPERFORMED BY: [facility] Mvafvl[address] [facility] [place] [id number] Magnesium 1.9 mg/dL (Normal) Range: 1.6-2.3 8-Lzr-732484:43 HgA1C , Office (69982) HgA1C , Office 7.3 % (Abnormal) Range: 4.6 - 7.1 :27 MICROALBUMIN: CREATININE Comments: PATIENT NOT FASTINGPERFORMED BY: [facility] Mtevai0507 [facility] [id number] Information: NURSE DRAW RATIO (47623) AND (50278) Microalb/Creat Ratio 89.4 {mg/g_creat} (Abnormal) Range: 0.0-30.0 Microalbumin, Urine 142.2 ug/mL (Normal) Creatinine, Urine 159.1 mg/dL (Normal) :27 PARATHORMONE (49385) Comments: PATIENT NOT FASTINGPERFORMED BY: [facility] [id number] [facility] [id number] PTH, Intact 53 pg/mL (Normal) Range: 15-65 52-Oaq-472396:15 TSH (52892) Comments: PATIENT NOT FASTINGPERFORMED BY: [facility] [id number] [facility] [id number] TSH 4.310 {uIU/mL} (Normal) Range: 0.450-4.500 18-Pxh-874054:15 METABOLIC PANEL, COMPREHENSIVE Comments: PATIENT NOT FASTINGPERFORMED BY: [facility] [id number] [facility] [id number] (46498) ALT (SGPT) 17 [iU]/L (Normal) Range: 0-44 [...] Glucose, Serum 231 mg/dL (Abnormal) Range: 65-99 50-Cxf-151319:15 CBC with auto diff (67722) Comments: PATIENT NOT FASTINGPERFORMED BY: [facility] [id number] [facility] [id number] Immature Grans (Abs) 0.0 {x10E3/uL} (Normal) Range: [...] 4.14-5.80 WBC 7.7 {x10E3/uL} (Normal) Range: 3.4-10.8 01-Hem-398280:15 CALCIFIDIOL (12042) VIT D 25 Comments: PATIENT NOT FASTINGPERFORMED BY: [facility] [id number] [facility] [id number] Vitamin D, 25-Hydroxy 28.8 ng/mL (Abnormal) Range: 30.0-100.0 Comments: Vitamin D deficiency has been defined by the [place] of[place]icine and an Endocrine Society practice guideline as alevel of serum 25-OH vitamin D less than 20 ng/mL (1,2).The Endocrine Society went on to further define vitamin Dinsufficiency as a level between 21 and 29 ng/mL (2).1. IOM ([place] of Medicine). 2010. Dietary reference intakes for calcium and D. [place]: The National Academies Press.2. Yanna MF, Maral NC, Xander EDGAR, et al. Evaluation, treatment, and prevention of vitamin D deficiency: an Endocrine Society clinical practice guideline. JCEM. 2010; 96(7):1911-30. 54-Hhh-537292:34 Blood Glucose , Office (12312) Blood Glucose , Office 221 (Normal) 49-Yfm-631291:34 HgA1C , Office (28928) HgA1C , Office 6.3 % (Normal) Range: 4.6 - 7.1 7-Plz-591599:10 CBC W/Diff, Automated Comments: [facility] [address] [place], [place], [address] Absolute Lymph 1.60 {X10_3/ul} (Normal) Range: 0.83-4.51 [...] 4.6-6.2 WBC 7.5 K/mm3 (Normal) Range: 4.4-11.0 6-Wke-636605:10 Comprehensive Metabolic Profil Comments: [facility] [address] [place], [place], [address] GAP 8 (Normal) Range: 5-15 CO2 29.0 [...] 200 mg/dLsuggests DIABETES MELLITUS per A.D.A. criteria. 4-Tos-829159:10 Prothrombin Time w/INR Comments: [facility] Kyjahdjfpm[address] [place], [address] INR 1.0 (Normal) PROTIME 13.1 s (Normal) Range: 11.7-14.9 7-Wcl-309897:09 Bedside Glucose Comments: [facility] LaboratoryPoint of [address]sxq[address]. [place], [place] [address] BEDSIDE GLU 249 mg/dL (Abnormal) Range: 70-110 Comments: MANAGEMENT OF PATIENT CARE PER NURSING PROTOCOL 21-Cax-87328:55 Magnesium (95310) Comments: PATIENT WAS FASTINGPERFORMED BY: LabCo[address] [id number] BY: CB LabCoBacharach Institute for RehabilitationKstbxl5712 [facility] [id number] Magnesium, Serum 2.1 mg/dL (Normal) Range: 1.6-2.3 :55 METABOLIC PANEL, Comments: PATIENT WAS FASTINGPERFORMED BY: Zhihu [address] [id number] BY: SambazonBacharach Institute for RehabilitationYjdqea5843 [facility] [id number] COMPREHENSIVE (68577) ALT (SGPT) 13 [iU]/L (Normal) Range: 0-44 [...] BY NMR Comments: PATIENT WAS FASTINGPERFORMED BY: Sambazon[address] [id number] BY: [facility]6370 [facility] [id number] (62421) LP-IR Score <25 (Normal) Comments: INSULIN RESISTANCE MARKER <--Insulin Sensitive Insulin Resistant--> Percentile in Reference PopulationInsulin Resistance ScoreLP-IR Score Low 25th 50th 75th High <27 27 45 63 >63LP-IR Score is inaccurate if patient is non-fasting. .The LP-IR score is a laboratory developed i [facility] that has beenassociated with insulin resistance [...] 1600 - 2000 Very High > 2000 62-Ujm-98878:55 CALCIFIDIOL (20660) VIT D Comments: PATIENT WAS FASTINGPERFORMED BY: [place] 410757 [facility] [id number] BY: [facility]6370 [facility] [id number] 25 Vitamin D, 25-Hydroxy 35.2 ng/mL (Normal) Range: 30.0-100.0 Comments: Vitamin D deficiency has been defined by the [place] of[place] and an Endocrine Society practice guideline as alevel of serum 25-OH vitamin D less than 20 ng/mL (1,2).The Endocrine Society went on to further define vitamin Dinsufficiency as a level between 21 and 29 ng/mL (2).1. IOM ([place] of [place]). 2010. Dietary reference intakes for calcium and D. [place]: The National Academies Press.2. Yanna MF, Maral NC, Xander EDGAR, et al. Evaluation, treatment, and prevention of vitamin D deficiency: an Endocrine Society clinical practice guideline. JCEM. 2010; 96(7):1911-30. 80-Mfr-50362:55 PSA (Prostate Specific Comments: PATIENT WAS FASTINGPERFORMED BY: Sambazon[address] [id number] BY: Sambazon Opannb2387 [facility] [id number] Antigen), Screening (92492) Prostate Specific Ag, 1.2 ng/mL (Normal) Range: 0.0-4.0 Serum Comments: ProtAb ECLIA methodology. .According to the [place] [employer], Serum PSA shoulddecrease and remain at undetectable levels after radicalprostatectomy. The AUA defines biochemical recurrence as an initialPSA value 0.2 ng/mL or greater followed by a subsequent confirmatoryPSA value 0.2 ng/mL or greater.Values obtained with d ifferent assay methods or kits cannot be usedinterchangeably. Results cannot be interpreted as absolute evidenceof the presence or absence of malignant disease. 38-Eic-534414:38 Blood Glucose , Office (39535) Blood Glucose , Office 160 (Normal) 96-Qqb-322297:00 CBC WITH MANUAL DIFF Comments: PATIENT NOT FASTINGPERFORMED BY: SambazonBacharach Institute for RehabilitationPtawqa9358 [facility] [id number] BY: Celoxica[address] [id number] Inf ormation: NURSE DRAW (92357) Immature Grans (Abs) 0.0 {x10E3/uL} (Normal) Range: [...] 4.14-5.80 WBC 5.9 {x10E3/uL} (Normal) Range: 3.4-10.8 31-Evi-632100:00 Vitamin B-12 Comments: PATIENT NOT FASTINGPERFORMED BY: [employer] ikaSystems [facility] [id number] BY: Sambazon[address] [id number] (cyanocobalamin) (19436) Vitamin B12 529 pg/mL (Normal) Range: 211-946 87-Upb-130317:00 Methymalonic Acid, Serum Comments: PATIENT NOT FASTINGPERFORMED BY: PlayFitnessJessica V[place] 0740270 [facility] [id number] BY: Sambazon[address] [id number] (49130) Methylmalonic Acid, Serum 284 nmol/L (Normal) Range: 0-378 41-Tzy-978692:59 ANCA-C (ANTI NEUTROPHIL Comments: copy to Dr. [phone] all these now; PATIENT WAS FASTINGPERFORMED BY: Sambazon[address] [id number] BY: LabPongrBacharach Institute for RehabilitationFftwkj1800 [place] [address] [facility] [id number] CYTOPLASMIC ANTIBODY) Atypical pANCA <1:20 {titer} Comments: [...] follow up testing ofpositive sera with both MA-3 and MPO-ANCA enzyme immunoassays. Asmany as 5% serum samp les are positive only by EIA.Ref. AM J Clin Pathol 1999;111:507-513. Cytoplasmic (C-ANCA) <1:20 {titer} (Normal) Antiproteinase 3 (MA-3) Abs <3.5 U/mL (Normal) Range: 0.0-3.5 Antimyeloperoxidase (MPO) Abs <9.0 U/mL (Normal) Range: 0.0-9.0 42-Xgc-102034:59 Renal function Panel Comments: now; PATIENT WAS FASTINGPERFORMED BY: LabPongrEssex County HospitalVmfbwlpoma4009 [facility] [id number] BY: LabPongrBacharach Institute for RehabilitationRftgdc5994 [facility] [id number] (55110) Albumin, Serum 4.1 g/dL (Normal) Range: 3.5-4.8 [...] Glucose, Serum 166 mg/dL (Abnormal) Range: 65-99 56-Kzh-436921:59 LIPOPROTEIN, BLD, BY NMR Comments: now; PATIENT WAS FASTINGPERFORMED BY: BN [facility] Dszgymfwtr2499 [facility] [id number] BY: CB [facility] Lkehiv4635 [facility] [id number] (67839) LP-IR Score 39 (Normal) Comments: INSULIN RESISTANCE MARKER <--Insulin Sensitive Insulin Resistant--> Percentile in Reference PopulationInsulin Resistance ScoreLP-IR Score Low 25th 50th 75th High <27 27 45 63 >63LP-IR Score is inaccurate if patient is non-fasting. .The LP-IR score is a laboratory developed i [facility] that has beenassociated with insulin resistance [...] 1600 - 2000 Very High > 2000 24-Yur-804788:59 TSH (69257) Comments: PATIENT WAS FASTINGPERFORMED BY: Jobydurp Hzranqktbx8481 [facility] [id number] BY: Pathgather Bmwgux7981 [facility] [id number] TSH 2.960 {uIU/mL} (Normal) Range: 0.450-4.500 68-Cio-294643:59 COMPLEMENT C4 (49355) Comments: PATIENT WAS FASTINGPERFORMED BY: Sysomos[address] [id number] BY: [employer] LabSynthelis Kymauu6999 [facility]in [place] [id number] Complement C4, Serum 32 mg/dL (Normal) Range: 14-44 26-Swr-851150:59 COMPLEMENT C3 (98444) Comments: PATIENT WAS FASTINGPERFORMED BY: Sysomoston1447 [facility] [id number] BY: [employer] LabSynthelis Wpbiiy3502 [facility] [id number] Complement C3, Serum 137 mg/dL (Normal) Range: 82-167 82-Ogr-978313:59 MICROALBUMIN: CREATININE Comments: PATIENT WAS FASTINGPERFORMED BY: Sambazon[address] [id number] BY: SambazonBacharach Institute for RehabilitationEjhuhg1608 [facility] [id number] RATIO (42735) AND (71273) Microalb/Creat Ratio 118.3 {mg/g_creat} (Abnormal) Range: 0.0-30.0 Microalbumin, Urine 52.3 ug/mL (Normal) Creatinine, Urine 44.2 mg/dL (Normal) 31-Dyb-572005:59 SPEP (88194) Comments: PATIENT WAS FASTINGPERFORMED BY: Sambazon[address] [id number] BY: SambazonBacharach Institute for RehabilitationGjxauu8615 [facility] [id number] Please note: SPRCS (Normal) Comments: Protein electrophoresis scan will follow via computer, mail, orcourier delivery. A/G Ratio 1.2 (Normal) Range: 0.7-1.7 Globulin, Total 3.1 g/dL (Normal) Range: 2.2-3.9 M-Maxime Not Observed g/dL (Normal) Gamma Globulin 0.9 g/dL (Normal) Range: 0.4-1.8 Beta Globulin 1.1 g/dL (Normal) Range: 0.7-1.3 Qbsws-7-Ylbgsevn 0.9 g/dL (Normal) Range: 0.4-1.0 Oppem-4-Wkdzjdrg 0.2 g/dL (Normal) Range: 0.0-0.4 Albumin 3.7 g/dL (Normal) Range: 2.9-4.4 Protein, Total, Serum 6.8 g/dL (Normal) Range: 6.0-8.5 32-Bjr-825392:59 DNA ANTIBODY-NATV/DBL ST Comments: PATIENT WAS FASTINGPERFORMED BY: Sambazon[address] [id number] BY: SambazonJessica V[place] 0740270 [facility] [id number] (06018) test code 594542 Anti-DNA (DS) Ab Qn <1 {IU/mL} (Normal) Range: 0-9 Comments: Negative <5 Equivocal 5 - 9 Positive >9 98-Wci-550164:28 Alcohol, Blood (Medical)-Serum Comments: [facility] [address] [place], [address] SERUM ETOH < 3.0 mg/dL (Normal) Comments: The serum:whole blood ethanol ratio is approximately 1.14and varies slightly with hematocrit.Medical Alcohol reference interval and critical value innon-tolerant individuals; 50 - 100 Impairment 100 Intoxication 100 - 250 Severe Poisoning 250 - 400 Deep/possible fatal coma 84-Oyk-721396:28 CBC W/Diff, Automated Comments: [facility] [address] [place], [place], [id number] Absolute Lymph 1.85 {X10_3/ul} (Normal) Range: 0.83-4.51 [...] 4.6-6.2 WBC 7.1 K/mm3 (Normal) Range: 4.4-11.0 39-Ozu-991568:28 Comprehensive Metabolic Profil Comments: [facility] Rytxhewfus[address] [place], [place], [address] GAP 10 (Normal) Range: 5-15 CO2 29.0 [...] 126 mg/dLsuggests DIABETES MELLITUS per A.D.A. criteria. 74-Iec-907076:28 Troponin-I Comments: 'TROP' Serial specimen #1, #2, #3, or #4: 1[facility] [address]jv[address] [place], [address] TROPONIN-I 0.03 ng/mL (Normal) Comments: TROPONIN-I EXPECTED VALUES <0.05 NEGATIVE 0.06 - 0.59 AT RISK OF OR > OR = 0.60 SUGGEST OR 27-Uru-570238:08 HgA1C , Office (23454) HgA1C , Office 6.8 % (Normal) Range: 4.6 - 7.1 :59 Metabolic Panel, Basic (10713) Comments: recheck in one week; PATIENT WAS FASTINGPERFORMED BY: [employer] InternationalDosher Memorial Hospital [id number] Calcium, Serum 8.5 mg/dL (Abnormal) Range: 8.6-10.2 [...] Glucose, Serum 136 mg/dL (Abnormal) Range: 65-99 76-Txk-591474:20 CBC (Auto) (57599) Comments: PATIENT NOT FASTINGPERFORMED BY: [employer] LabCoMobikon AsiaDosher Memorial Hospital [id number] Platelets 183 {x10E3/uL} (Normal) Range: 150-379 RDW 13.6 % (Normal) Range: 12.3-15.4 MCHC 34.8 g/dL (Normal) Range: 31.5-35.7 MCH 34.1 pg (Abnormal) Range: 26.6-33.0 MCV 98 fL (Abnormal) Range: 79-97 Hematocrit 40.5 % (Normal) Range: 37.5-51.0 Hemoglobin 14.1 g/dL (Normal) Range: 12.6-17.7 RBC 4.13 {x10E6/uL} (Abnormal) Range: 4.14-5.80 WBC 7.9 {x10E3/uL} (Normal) Range: 3.4-10.8 19-Det-621446:20 Magnesium (06557) Comments: PATIENT NOT FASTINGPERFORMED BY: LabCoBacharach Institute for RehabilitationZrslmj6759 [facility] [id number] Magnesium, Serum 2.2 mg/dL (Normal) Range: 1.6-2.3 96-Wdu-530988:20 Renal function Panel (26935) Comments: PATIENT NOT FASTINGPERFORMED BY: LabCoBacharach Institute for RehabilitationBtisli3064 [facility] [id number] Albumin, Serum 4.2 g/dL (Normal) Range: 3.5-4.8 [...] Glucose, Serum 266 mg/dL (Abnormal) Range: 65-99 51-Nem-532789:54 Basic Metabolic Profile (BMP) Comments: Order Date: 12/25/16Order Info: 0667-1 - *BMPOrder Info: 70869-6 - *MagnesiumOrder Date: 12/25/16Order Info: - *MagnesiumComments: Reason:[facility] [address]woigth[address] [place], [address] GAP 11 (Normal) Range: 5-15 CO2 30.0 [...] 200 mg/dLsuggests DIABETES MELLITUS per A.D.A. criteria. 46-Hcd-563149:54 Magnesium Comments: Order Date: 12/25/16Order Info: 0667-1 - *BMPOrder Info: - *MagnesiumOrder Date: 12/25/16Order Info: - *MagnesiumComments: Reason:[facility] [address] [place], [address] MG 2.0 mg/dL (Normal) Range: 1.8-2.4 69-Tzm-056876:35 Basic Metabolic Profile (BMP) Comments: Order Date: 12/18/16Order Info: 0667-1 - *BMPOrder Info: - *MagnesiumComments: For [place] episodeOrder Info: 3026-2 - *T4 (Total)Comments: Reason: For [place] episoeOrder Info: 3016-3 - *TSHComments: Alicia son: For [place] episodeOrder Date: 02/20/17Order Info: 3016-3 - *TSHComments: Reason: For [facility] [address]jcdk[address] [place], [address] GAP 12 (Normal) Range: 5-15 [...] 200 mg/dLsuggests DIABETES MELLITUS per A.D.A. criteria. 86-Tuv-657474:35 CBC-Complete Blood Cnt No Diff Comments: Order Date: 12/18/16Order Info: 3016-3 - *TSHComments: Reason: For [facility] [address]ks[address]hakb[address] [place], [place], [address] MPV 10.7 fL (Normal) Range: 6.2-12.0 PLT [...] 4.6-6.2 WBC 8.1 K/mm3 (Normal) Range: 4.4-11.0 15-Taa-282625:35 Magnesium Comments: Order Date: 12/18/16Order Info: 666-1 - *BMPOrder Info: - *MagnesiumComments: For [place] episodeOrder Info: 3026-2 - *T4 (Total)Comments: Reason: For [place] episoeOrder Info: 301-3 - *TSHComments: Burson son: For [place] episodeOrder Date: 12/18/16Order Info: 3015-3 - *TSHComments: Reason: [facility] [address]vyo[address] [place], [place], [address](269) MG 2.0 mg/dL (Normal) Range: 1.8-2.4 00-Yeg-758394:35 T4 Total, Thyroxin Comments: Order Date: 12/18/16Order Info: 666- - *BMPOrder Info: - *MagnesiumComments: For [place] episodeOrder Info: 3026-2 - *T4 (Total)Comments: Reason: For [place] episoeOrder Info: 3015-3 - *TSHC omments: Alicia son: For [place] episodeOrder Date: 12/18/16Order Info: 3016-3 - *TSHComments: Reason: For [place] episodeWAdena [facility] Vsfncggpec[address] [place], [place], [address] T4 THYROXIN 11.3 ug/dL (Normal) Range: 4.5-12.1 62-Rpg-790917:35 Thyroid Stim Hormone (TSH) Comments: Order Date: 12/18/16Order Info: 666-1 - *BMPOrder Info: - *MagnesiumComments: For [place] episodeOrder Info: 3026-2 - *T4 (Total)Comments: Reason: For [place] episoeOrder Info: 3016-3 - *TSHComments: Burson son: For [place] episodeOrder Date: 12/18/16Order Info: 3015-3 - *TSHComments: Reason: For [place] episodeWAdena [facility] [address]buvxep[address] [place], [address] TSH 0.86 {uIU/mL} (Normal) Range: 0.358-3.74 6-Eml-766865:05 PSA (Prostate Specific Comments: PATIENT NOT FASTINGPERFORMED BY: LabCoJessica Ville 0740270 [facility] [id number] Information: [id number] NURSE DRAW Antigen), Screening (54839) Prostate Specific Ag, 1.0 ng/mL (Normal) Range: 0.0-4.0 Serum Comments: ProtAb ECLIA methodology. .According to the [place] [employer], Serum PSA shoulddecrease and remain at undetectable levels after radicalprostatectomy. The AUA defines biochemical recurrence as an initialPSA value 0.2 ng/mL or greater followed by a subsequent confirmatoryPSA value 0.2 ng/mL or greater.Values obtained with d ifferent assay methods or kits cannot be usedinterchangeably. Results cannot be interpreted as absolute evidenceof the presence or absence of malignant disease. 97-Qpl-475397:01 Metabolic Panel, Basic Comments: copy to Dr. hu; PATIENT NOT FASTINGPERFORMED BY: LabFres[facility]6370 [facility] [id number] Information: [id number] (28809) Calcium, Serum 9.3 mg/dL (Normal) Range: 8.6-10.2 [...] Glucose, Serum 192 mg/dL (Abnormal) Range: 65-99 66-Nds-567004:49 BNTP (89160) Comments: PATIENT NOT FASTINGPERFORMED BY: LabCoBacharach Institute for RehabilitationFvraqe5878 [facility] [id number] Information: [id number],P21627 B-Type Natriuretic Peptide 273.9 pg/mL (Abnormal) Range: 0.0-100.0 4-Prx-379920:01 HgA1C , Office (94312) HgA1C , Office 6.1 % (Normal) Range: 4.6 - 7.1 39-Xtf-103477:02 Basic Metabolic Profile (BMP) Comments: [facility] [address] [place], [address] GAP 6 (Normal) Range: 5-15 [...] A.D.A. criteria. :02 BNP,B-Type NATRIURETIC PEPTIDE Comments: [facility] [address] [place], [address] B-TYPE JUSTIN PEP 261.3 pg/mL (Abnormal) Range: 0-100 83-Lox-850685:22 TSH (87298) Comments: PATIENT NOT FASTINGPERFORMED BY: [facility] Ercous1868 [facility] [id number] TSH 3.740 {uIU/mL} (Normal) Range: 0.450-4.500 09-Bmi-980720:22 METABOLIC PANEL, COMPREHENSIVE Comments: PATIENT NOT FASTINGPERFORMED BY: [facility]6370 [facility] [id number] (91371) ALT (SGPT) 19 [iU]/L (Normal) Range: 0-44 [...] Glucose, Serum 155 mg/dL (Abnormal) Range: 65-99 60-Lfz-110522:22 CBC W/AUTO DIFF WBC Comments: PATIENT NOT FASTINGPERFORMED BY: [facility]6370 [facility] [id number] Information: [id number]; [address] (30717) Immature Grans (Abs) 0.0 {x10E3/uL} (Normal) Range: [...] 4.14-5.80 WBC 7.6 {x10E3/uL} (Normal) Range: 3.4-10.8 95-Cww-204271:57 HgA1C , Office (40959) HgA1C , Office 7.1 % (Normal) Range: 4.6 - 7.1 :13 Lipid Profile Comments: [facility] [address] [place], [place], [id number](895) VLDL 78 mg/dL (Abnormal) Range: 5-40 LDL [...] mg/dL High Risk :13 Liver Profile Comments: [facility] [address]zzp[address] [place], [address] D BILI 0.10 mg/dL (Normal) Range: 0.00-0.30 T BILI 0.40 mg/dL (Normal) Range: 0.20-1.00 ALT 30 U/L (Normal) Range: 12-78 ALK P 99 U/L (Normal) Range: 50-136 AST 23 U/L (Normal) Range: 15-37 GLOB 3.6 g/dL (Abnormal) Range: 2.3-3.5 ALB 3.3 g/dL (Abnormal) Range: 3.4-5.0 T PROT 6.9 g/dL (Normal) Range: 6.4-8.2 90-Ftb-434453:33 Blood Glucose , Office (09252) Blood Glucose , Office 184 (Normal) Comments: told to stop juices and tighten diet 66-Qgv-02595:25 METABOLIC PANEL, BASIC Comments: PATIENT NOT FASTINGPERFORMED BY: [facility] Nwypcq2306 [facility] [id number] Information: [id number],[id number]; [address]. 10-26-15 creat stayed same (67436) Calcium, Serum 9.0 mg/dL (Normal) Range: 8.6-10.2 [...] Glucose, Serum 127 mg/dL (Abnormal) Range: 65-99 60-Pdn-956953:26 Metabolic Panel, Basic Comments: standing order; PATIENT NOT FASTINGPERFORMED BY: Talkray70 [facility] [id number] Information: [id number] (50296) Calcium, Serum 9.1 mg/dL (Normal) Range: 8.6-10.2 [...] Glucose, Serum 338 mg/dL (Abnormal) Range: 65-99 89-Urv-582439:36 CULTURE, SPUTUM (92782) Comments: PATIENT NOT FASTINGPERFORMED BY: SolarReservelin6370 [facility] [id number] Information: SRC:[facility] [id number] Result 1 RRF (Normal) Comments: Routine respiratory liu Lower Respiratory Culture Final report (Normal) :31 HgA1C , Office (58063) HgA1C , Office 6.4 % (Normal) Range: 4.6 - 7.1 :31 Blood Glucose , Office (09627) Blood Glucose , Office 282 (Normal) :38 PSA (PROSTATE SPECIFIC Comments: PATIENT NOT FASTINGPERFORMED BY: SolarReservelin6370 [facility] [id number] ANTIGEN) (V76.44) Prostate Specific Ag, 1.0 ng/mL (Normal) Range: 0.0-4.0 Serum Comments: Erik ECLIA methodology. .According to the [place] [employer], Serum PSA shoulddecrease and remain at undetectable levels after radicalprostatectomy. The AUA defines biochemical recurrence as an initialPSA value 0.2 ng/mL or greater followed by a subsequent confirmatoryPSA value 0.2 ng/mL or greater.Values obtained with d ifferent assay methods or kits cannot be usedinterchangeably. Results cannot be interpreted as absolute evidenceof the presence or absence of malignant disease. :38 TSH (92306) Comments: PATIENT NOT FASTINGPERFORMED BY: [employer] [facility] Inmpkl6745 [facility] [place] [id number] TSH 4.310 {uIU/mL} (Normal) Range: 0.450-4.500 :38 Magnesium (36349) Comments: PATIENT NOT FASTINGPERFORMED BY: [facility] Etrttz9570 [address] [facility] HospitalD[place] [id number] Magnesium, Serum 1.9 mg/dL (Normal) Range: 1.6-2.6 :38 Metabolic Panel, Comments: PATIENT NOT FASTINGPERFORMED BY: [facility] Brszhz4311 [facility] Hospitalin [place] [id number] Information: [id number]; [address] [facility] (14919) ALT (SGPT) 28 [iU]/L (Normal) Range: 0-44 [...] (Abnormal) Range: 65-99 :08 HgA1C , Office (37082) HgA1C , Office 6.5 % (Normal) Range: 4.6 - 7.1 :08 Blood Glucose , Office (35830) Blood Glucose , Office 277 (Normal) :52 CBC, Platelet, No Differential Comments: PATIENT WAS FASTINGPERFORMED BY: SolarReservelin6370 [facility] [id number] Platelets 184 {x10E3/uL} (Normal) Range: 150-379 RDW 14.1 % (Normal) Range: 12.3-15.4 MCHC 34.2 g/dL (Normal) Range: 31.5-35.7 MCH 33.7 pg (Abnormal) Range: 26.6-33.0 MCV 99 fL (Abnormal) Range: 79-97 Hematocrit 40.3 % (Normal) Range: 37.5-51.0 Hemoglobin 13.8 g/dL (Normal) Range: 12.6-17.7 RBC 4.09 {x10E6/uL} (Abnormal) Range: 4.14-5.80 WBC 8.2 {x10E3/uL} (Normal) Range: 3.4-10.8 :52 Renal Panel (10) Comments: PATIENT WAS FASTINGPERFORMED BY: PlayFitnessBacharach Institute for RehabilitationBhgzpn8263 [facility] [id number] Information: [id number] Albumin, Serum 4.1 g/dL (Normal) Range: 3.5-4.8 [...] 65-99 :05 Lipid Profile Comments: Test performed at:[facility] Exv[address] [place] [address] [id number] VLDL 35 mg/dL (Normal) Range: 5-40 LDL [...] Risk :05 Liver Profile Comments: Test performed at:[facility] Heshiifvpv7536 [place], [place] [address] D BILI 0.20 mg/dL (Normal) Range: 0.00-0.30 T BILI 0.70 mg/dL (Normal) Range: 0.00-4.00 ALT 27 U/L (Normal) Range: 12-78 ALK P 80 U/L (Normal) Range: 50-136 AST 26 U/L (Normal) Range: 15-37 GLOB 3.4 g/dL (Normal) Range: 2.7-4.2 ALB 3.7 g/dL (Normal) Range: 3.4-5.0 T PROT 7.1 g/dL (Normal) Range: 6.4-8.2 85-Pfp-458176:47 Vitamin B-12 Comments: these today; PATIENT NOT FASTINGPERFORMED BY: [employer] Nqedfa6236 [address] [facility] [id number] BY: Sambazon[address] [id number] (cyanocobalamin) (00405) Vitamin B12 526 pg/mL (Normal) Range: 211-946 [id number]-Erz-[id number]:47 RETICULOCYTE COUNT (90737) Comments: PATIENT NOT FASTINGPERFORMED BY: [email or web address] [id number] BY: [address] [id number] Reticulocyte Count 2.1 % (Normal) Range: 0.6-2.6 25-Yeq-614699:47 Folic Acid Serum (95732) Comments: PATIENT NOT FASTINGPERFORMED BY: [email or web address] [facility] [id number] BY: [address] [id number] Information: [id number] Folate (Folic Acid), Serum >20.0 ng/mL (Normal) Comments: A serum folate concentration of less than 3.1 ng/mL isconsidered to represent clinical deficiency. 88-Hba-[id number]:47 Methymalonic Acid, Serum Comments: PATIENT NOT FASTINGPERFORMED BY: [employer] [id number] [facility] [id number] BY: [address] [id number] (20516) Methylmalonic Acid, Serum 219 nmol/L (Normal) Range: 0-378 52-Vlh-48065:42 HgA1C , Office (96118) HgA1C , Office 6.5 % (Normal) Range: 4.6 - 7.1 :42 Blood Glucose , Office (31174) Blood Glucose , Office 194 (Normal) :13 Basic Metabolic Profile (BMP) Comments: Test performed at:[facility] Jtcsyywbzg2709 [facility] [place] [address] GAP 8 (Normal) Range: 5-15 CO2 28.0 [...] Basic Metabolic Profile (BMP) Comments: Test performed at:[facility] Svskbrayys5676 [facility]. [place], [place] [address] GAP 6 (Normal) Range: 5-15 CO2 29.0 [...] :22 BNP,B-Type NATRIURETIC PEPTIDE Comments: Test performed at:[facility] Rsjyyukwoh85[address] [place] [address] B-TYPE JUSTIN PEP 337.5 pg/mL (Abnormal) Range: 0-100 89-Snb-397134:19 Magnesium (34288) Comments: 2 weeks and in three months (approximately); PATIENT WAS FASTINGPERFORMED BY: [facility] Nmodrj7614 [facility] [id number] Magnesium, Serum 1.9 mg/dL (Normal) Range: 1.6-2.6 32-Dyd-009117:19 Renal function Panel (87324) Comments: 2 weeks; PATIENT WAS FASTINGPERFORMED BY: [facility] Pcotzc2552 [facility] [id number] Phosphorus, Serum 3.2 mg/dL (Normal) Range: 2.5-4.5 25-Wjp-432209:19 TSH (69456) Comments: PATIENT WAS FASTINGPERFORMED BY: [facility] Wmirsj8935 [facility] [id number] TSH 2.460 {uIU/mL} (Normal) Range: 0.450-4.500 87-Zyy-817952:19 METABOLIC PANEL, COMPREHENSIVE Comments: PATIENT WAS FASTINGPERFORMED BY: [facility] Bchoza2114 [facility] [id number] (05389) ALT (SGPT) 21 [iU]/L (Normal) Range: 0-44 [...] Glucose, Serum 131 mg/dL (Abnormal) Range: 65-99 61-Soz-954326:19 LIPID PANEL (88504) Comments: PATIENT WAS FASTINGPERFORMED BY: [place] [facility] [id number] LDL/HDL Ratio 0.7 {ratio_units} (Normal) Range: 0.0-3.6 [...] Cholesterol, Total 118 mg/dL (Normal) Range: 100-199 28-Hno-200372:19 CBC W/AUTO DIFF WBC Comments: PATIENT WAS FASTINGPERFORMED BY: Talkray70 [facility] [id number] Information: [id number] (98163) Immature Grans (Abs) 0.0 {x10E3/uL} (Normal) Range: [...] Range: 3.4-10.8 :38 Blood Glucose , Office (59438) Blood Glucose , Office 229 (Normal) :38 HgA1C , Office (26494) HgA1C , Office 6.7 % (Normal) Range: 4.6 - 7.1 :23 Basic Metabolic Profile (BMP) Comments: Test performed at:[facility] Bxthoopfbs54[address] [place], [place] [id number] GAP 6 (Normal) Range: 5-15 CO2 28.0 [...] 126 mg/dLsuggests DIABETES MELLITUS per A.D.A. criteria. 62-Dxt-051908:23 BNP,B-Type NATRIURETIC PEPTIDE Comments: Test performed at:[facility] Nwwexgcumv7409 [address]oyal[address] [place], [place] [address] B-TYPE JUSTIN PEP 348.7 pg/mL (Abnormal) Range: [...] :58 BTNP 261.6 pg/mL (Abnormal) Range: 0-100 49-Qdh-761477:47 CBC (Auto) (36387) Comments: PATIENT NOT FASTINGPERFORMED BY: [facility] Ygutlv8807 [facility] [id number] Platelets 165 {x10E3/uL} (Normal) Range: 150-379 RDW 13.9 % (Normal) Range: 12.3-15.4 MCHC 34.3 g/dL (Normal) Range: 31.5-35.7 MCH 33.8 pg (Abnormal) Range: 26.6-33.0 MCV 99 fL (Abnormal) Range: 79-97 Hematocrit 38.5 % (Normal) Range: 37.5-51.0 Hemoglobin 13.2 g/dL (Normal) Range: 12.6-17.7 RBC 3.91 {x10E6/uL} (Abnormal) Range: 4.14-5.80 WBC 6.7 {x10E3/uL} (Normal) Range: 3.4-10.8 86-Mqw-648839:47 Renal function Panel Comments: PATIENT NOT FASTINGPERFORMED BY: LabPongrBacharach Institute for RehabilitationScrkff4796 [facility] [id number] Information: [id number] (77479) Albumin, Serum 4.0 g/dL (Normal) Range: 3.5-4.8 [...] Glucose, Serum 144 mg/dL (Abnormal) Range: 65-99 11-Lrg-982756:47 MAGNESIUM (62373) Comments: PATIENT NOT FASTINGPERFORMED BY: [facility]CoBacharach Institute for RehabilitationJnjrjc9221 [facility] [id number] Magnesium, Serum 1.7 mg/dL (Normal) Range: 1.6-2.6 53-Xrj-78124:28 HgA1C , Office (95817) HgA1C , Office 6.6 % (Normal) Range: 4.6 - 7.1 :28 Blood Glucose , Office (67023) Blood Glucose , Office 148 (Normal) :54 [...] CHOL 130 mg/dL (Normal) Comments: <200 mg/dL Smcvtjqbo039-341 mg/dL Borderline>240 mg/dL High Risk HDL 62 [...] performed using the TPSA assay method for [place] chemistry system. Values obtained with differentassay methods cannot be used interchangably.When changing PSA assays in the course of monitoring apatient, additional sequential testing should be carriedout to confirm baseline values. :54 T4 8.3 ug/dL (Normal) Comments: DR HU ORDERED SHAYY ANRDEW ORDERED CBCD TSH T4DR BONEZZI ORDERED PSA TSH CBCD LIPID CMP MIAMAG ADDED PER REQUEST Range: 4.5-12.1 :54 TSH 2.50 {uIU/mL} (Normal) Comments: DR HU ORDERED SHAYY ANDREW ORDERED CBCD TSH T4DR BONEZZI ORDERED PSA TSH CBCD LIPID CMP MIAMAG ADDED PER REQUEST Range: 0.358-3.74 06-Tjb-782683:13 BMP GAP 7 (Normal) Range: 5-15 CO2 [...] 126 mg/dLsuggests DIABETES MELLITUS per A.D.A. criteria. 96-Kat-53039:37 Metabolic Panel, Basic Comments: recheck in 1-2 weeks; PATIENT NOT FASTINGPERFORMED BY: [place] [id number] [facility] [id number] Information: [id number] (75789) Calcium, Serum 8.7 mg/dL (Normal) Range: 8.6-10.2 [...] Glucose, Serum 161 mg/dL (Abnormal) Range: 65-99 18-Bwt-710881:00 BNTP (11734) Comments: PATIENT NOT FASTINGPERFORMED BY: [address] [id number] Information: [id number] ORDER NO DRAW F EE B-Type Natriuretic Peptide 899.8 pg/mL (Abnormal) Range: 0.0-100.0 65-Hmb-724653:14 CULTURE, SPUTUM (94848) Comments: PATIENT NOT FASTINGPERFORMED BY: [address] [id number] Result 1 RRF (Normal) Comments: Routine respiratory liu Lower Respiratory Culture Final report (Normal) 84-Axx-151118:00 Metabolic Panel, Basic Comments: PATIENT NOT FASTINGPERFORMED BY: [address] [id number] Information: [id number] (70351) Calcium, Serum 8.6 mg/dL (Normal) Range: 8.6-10.2 [...] Glucose, Serum 129 mg/dL (Abnormal) Range: 65-99 97-Doa-422329:22 CBC WITH MANUAL DIFF Comments: all copies of labs to Dr. hu; PATIENT WAS FASTINGPERFORMED BY: [facility] Eobmox5811 [facility] [id number] Information: [id number] (41469) Immature Grans (Abs) 0.0 {x10E3/uL} (Normal) Range: [...] 4.14-5.80 WBC 7.7 {x10E3/uL} (Normal) Range: 3.4-10.8 94-Kjk-717475:22 MICROALBUMIN: CREATININE RATIO Comments: PATIENT WAS FASTINGPERFORMED BY: SambazonBacharach Institute for RehabilitationIyiira1330 [facility] [id number] (09554) AND (60384) Microalb/Creat Ratio 135.4 {mg/g_creat} (Abnormal) Range: 0.0-30.0 Creatinine, Urine 126.0 mg/dL (Normal) Range: 22.0-328.0 Microalbumin, Urine 170.6 ug/mL (Abnormal) Range: 0.0-17.0 80-Vgw-020861:22 METABOLIC PANEL, COMPREHENSIVE Comments: PATIENT WAS FASTINGPERFORMED BY: SambazonBacharach Institute for RehabilitationDxmcbf6785 [facility] [id number] (81514) ALT (SGPT) 14 [iU]/L (Normal) Range: 0-44 [...] mg/dL (Abnormal) Range: 65-99 :22 LIPID PANEL (55535) Comments: PATIENT WAS FASTINGPERFORMED BY: [place] [facility] [id number] LDL/HDL Ratio 0.8 {ratio_units} (Normal) Range: 0.0-3.6 LDL Cholesterol Calc 40 mg/dL (Normal) Range: 0-99 VLDL Cholesterol Mike 27 mg/dL (Normal) Range: 5-40 HDL Cholesterol 53 mg/dL (Normal) Comments: According to ATP-III Guidelines, HDL-C >59 mg/dL is considered anegative risk factor for CHD. Triglycerides 134 mg/dL (Normal) Range: 0-149 Cholesterol, Total 120 mg/dL (Normal) Range: 100-199 :22 TSH (51298) Comments: PATIENT WAS FASTINGPERFORMED BY: Talkray70 [facility] [id number] TSH 3.630 {uIU/mL} (Normal) Range: 0.450-4.500 :34 Blood Glucose , Office (34878) Blood Glucose , Office 164 (Normal) :34 HgA1C , Office (12970) HgA1C , Office 6.4 % (Normal) Range: 4.6 - 7.1 :31 LIPID PANEL (24110) Comments: copy all labs to [facility]; PATIENT WAS FASTINGPERFORMED BY: [employer] Xlfkne9446 [facility] [id number] LDL/HDL Ratio 0.9 {ratio_units} (Normal) Range: 0.0-3.6 [...] (PROSTATE SPECIFIC Comments: PATIENT WAS FASTINGPERFORMED BY: Talkray70 [facility] [id number] ANTIGEN) (V76.44) Prostate Specific Ag, 1.3 ng/mL (Normal) Range: 0.0-4.0 Serum Comments: Shop pirateIA methodology. .According to the [place] [employer], Serum PSA shoulddecrease and remain at undetectable levels after radicalprostatectomy. The AUA defines biochemical recurrence as an initialPSA value 0.2 ng/mL or greater followed by a subsequent confirmatoryPSA value 0.2 ng/mL or greater.Values obtained with d ifferent assay methods or kits cannot be usedinterchangeably. Results cannot be interpreted as absolute evidenceof the presence or absence of malignant disease. :31 TSH (99040) Comments: PATIENT WAS FASTINGPERFORMED BY: [facility] Iqzuip5616 [facility] [id number] TSH 3.240 {uIU/mL} (Normal) Range: 0.450-4.500 :31 MICROALBUMIN: CREATININE RATIO Comments: PATIENT WAS FASTINGPERFORMED BY: [employer] Mtckok8820 [facility] [id number] (74870) AND (50824) Microalb/Creat Ratio 51.5 {mg/g_creat} (Abnormal) Range: 0.0-30.0 Microalbumin, Urine 104.3 ug/mL (Abnormal) Range: 0.0-17.0 Creatinine, Urine 202.4 mg/dL (Normal) Range: 22.0-328.0 :31 METABOLIC PANEL, COMPREHENSIVE Comments: PATIENT WAS FASTINGPERFORMED BY: SLAVA Samb[facility]on Zndzgr6053 [facility] [id number] (68113) ALT (SGPT) 13 [iU]/L (Normal) Range: 0-44 [...] MANUAL DIFF Comments: PATIENT WAS FASTINGPERFORMED BY: [facility] Zfxltn6375 [facility] [id number] Information: ADD [id number] AND DRAW FEE [id number] (98609) Immature Grans (Abs) 0.0 {x10E3/uL} (Normal) Range: [...] interval change :42 Blood Glucose , Office (71057) Blood Glucose , Office 171 (Normal) 45-Jgg-821136:41 HgA1C , Office (14710) HgA1C , Office 6.1 % (Normal) Range: 4.6 - 7.1 43-Boo-172794:36 CHEST, PA AND LATERAL Radiology Report See [...] Sue M.D.December 11, 2012 at 4:00:01 PM [id number] Signed GP/GP If you are the referring physician and would like to consult with theradiologist who provided this interpretation, please contact James Trejo at . If this radiologist is unavailable, youwill be directed to another radiologist to assist. If you are a patient with a question regarding this report, pleasecontactyour referring physician directly. Professional Interpretation Provided By: [employer] Phone , These documents contain legally protected [...] 12/11/12 1605 Sign by: Louis Sue MD 32-Ync-10428:56 CBC, Platelets & Auto Diff Comments: PATIENT NOT FASTINGPERFORMED BY: LabCoBacharach Institute for RehabilitationYotfyk8561 [facility] [id number] Information: [id number] (50650) Immature Grans (Abs) 0.0 {x10E3/uL} (Normal) Range: [...] (Normal) Range: 4.0-10.5 :56 Metabolic Panel, Basic (68809) Comments: PATIENT NOT FASTINGPERFORMED BY: [facility]6370 [facility] [id number] Calcium, Serum 9.5 mg/dL (Normal) Range: 8.6-10.2 [...] Range: 65-99 :03 Blood Glucose , Office (96067) Blood Glucose , Office 185 (Normal) :03 HgA1C , Office (17876) HgA1C , Office 5.6 % (Normal) Range: 4.6 - 7.1 7-Kud-796067:36 CBC WITH MANUAL DIFF Comments: send cardiology Dr. hu; PATIENT WAS FASTINGPERFORMED BY: LabCoBacharach Institute for RehabilitationRwohbv9750 [facility] [id number] Information: [id number] (13906) Immature Grans (Abs) 0.0 {x10E3/uL} (Normal) Range: [...] 4.14-5.80 WBC 10.9 {x10E3/uL} (Abnormal) Range: 4.0-10.5 2-Xrm-323856:36 MICROALBUMIN: CREATININE RATIO Comments: PATIENT WAS FASTINGPERFORMED BY: LabCoBacharach Institute for RehabilitationYjsxlo4322 [facility] [id number] (18403) AND (11494) Microalb/Creat Ratio 37.8 {mg/g_creat} (Abnormal) Range: 0.0-30.0 Creatinine, Urine 138.0 mg/dL (Normal) Range: 22.0-328.0 Microalbumin, Urine 52.1 ug/mL (Abnormal) Range: 0.0-17.0 6-Gjd-574653:36 METABOLIC PANEL, COMPREHENSIVE Comments: PATIENT WAS FASTINGPERFORMED BY: LabCoBacharach Institute for RehabilitationZchpwp8616 [facility] [id number] (28760) ALT (SGPT) 17 [iU]/L (Normal) Range: 0-44 [...] Glucose, Serum 109 mg/dL (Abnormal) Range: 65-99 8-Wxv-073904:36 LIPID PANEL (60862) Comments: PATIENT WAS FASTINGPERFORMED BY: LabCoBacharach Institute for RehabilitationVnmjrp5479 [facility] [id number] LDL Cholesterol Calc 52 mg/dL (Normal) Range: 0-99 LDL/HDL Ratio 0.9 {ratio_units} (Normal) Range: 0.0-3.6 HDL Cholesterol 58 mg/dL (Normal) Comments: According to ATP-III Guidelines, HDL-C >59 mg/dL is considered anegative risk factor for CHD. VLDL Cholesterol Mike 21 mg/dL (Normal) Range: 5-40 Cholesterol, Total 131 mg/dL (Normal) Range: 100-199 Triglycerides 103 mg/dL (Normal) Range: 0-149 9-Ina-125365:14 Blood Glucose , Office (34350) Blood Glucose , Office 171 (Normal) Comments: had toast for breakfast :07 HgA1C , Office (59091) HgA1C , Office 6.0 % (Normal) Range: 4.6 - 7.1 6-Wdp-373718:07 Blood Glucose , Office (70342) Blood Glucose , Office 192 (Normal) 5-Bhj-677785:45 MICROALBUMIN: CREATININE RATIO Comments: PATIENT WAS FASTINGPERFORMED BY: Talkray70 [facility] [id number] (99239) AND (91688) Microalb/Creat Ratio 218.7 {mg/g_creat} (Abnormal) Range: 0.0-30.0 Microalbumin, Urine 359.3 ug/mL (Abnormal) Range: 0.0-17.0 Creatinine, Urine 164.3 mg/dL (Normal) Range: 22.0-328.0 :45 METABOLIC PANEL, COMPREHENSIVE Comments: PATIENT WAS FASTINGPERFORMED BY: Talkray70 [facility] [id number] (89712) ALT (SGPT) 11 [iU]/L (Normal) Range: 0-55 [...] Glucose, Serum 125 mg/dL (Abnormal) Range: 65-99 2-Nik-331981:45 LIPID PANEL (02484) Comments: PATIENT WAS FASTINGPERFORMED BY: [employer] Zbccoz8477 [facility] [id number] LDL/HDL Ratio 0.6 {ratio_units} (Normal) Range: 0.0-3.6 [...] MANUAL DIFF Comments: PATIENT WAS FASTINGPERFORMED BY: PlayFitnessBacharach Institute for RehabilitationHlrzox3989 [facility] [id number] Information: [id number] (36129) Immature Grans (Abs) 0.0 {x10E3/uL} (Normal) Range: [...] (Normal) Range: 4.0-10.5 :41 HgA1C , Office (92461) HgA1C , Office 5.5 % (Normal) Range: 4.6 - 7.1 :41 Blood Glucose , Office (57134) Blood Glucose , Office 148 (Normal) 45-Fzp-25372:00 CBC (Auto) (94477) Comments: PATIENT NOT FASTINGPERFORMED BY: LabCoBacharach Institute for RehabilitationIbqrvf8871 [facility] [id number] Information: [id number] Platelets 215 {x10E3/uL} (Normal) Range: 140-415 RDW 15.4 % (Abnormal) Range: 11.7-15.0 MCHC 32.3 g/dL (Normal) Range: 32.0-36.0 MCH 30.5 pg (Normal) Range: 27.0-34.0 MCV 94 fL (Normal) Range: 80-98 Hematocrit 39.0 % (Normal) Range: 36.0-50.0 Hemoglobin 12.6 g/dL (Normal) Range: 12.5-17.0 RBC 4.13 {x10E6/uL} (Normal) Range: 4.10-5.60 WBC 7.2 {x10E3/uL} (Normal) Range: 4.0-10.5 :13 HgA1C , Office (75411) HgA1C , Office 5.3 % (Normal) Range: 4.6 - 7.1 :13 Blood Glucose , Office (57474) Blood Glucose , Office 146 (Normal) :12 Microscopic Examination Comments: PATIENT WAS FASTINGPERFORMED BY: [employer]6370 [facility] [id number] Bacteria None seen (Normal) Mucus Threads Present (Normal) Epithelial Cells (non renal) 0-10 {/hpf} (Normal) Range: 0 - 10 RBC 0-3 {/hpf} (Normal) Range: 0 - 3 WBC 0-5 {/hpf} (Normal) Range: 0 - 5 :12 PSA (PROSTATE SPECIFIC Comments: PATIENT WAS FASTINGPERFORMED BY: [employer]y[facility] Seafood InternationalDosher Memorial Hospital [id number] ANTIGEN) (V76.44) Prostate Specific Ag, 1.0 ng/mL (Normal) Range: 0.0-4.0 Serum Comments: Erik ECLIA methodology. .According to the [place] [employer], Serum PSA shoulddecrease and remain [...] of malignant disease. :12 URINALYSIS, W/ MICRO (47567) Comments: PATIENT WAS FASTINGPERFORMED BY: [employer]6370 [facility] [id number] Microscopic Examination See below: (Normal) Microscopic Examination MICRON (Normal) Comments: Microscopic follows if indicated. Nitrite, Urine Negative (Normal) Urobilinogen,Semi-Qn 0.2 mg/dL (Normal) Range: 0.0-1.9 Bilirubin Negative (Normal) Ketones Negative (Normal) Occult Blood Negative (Normal) Glucose Negative (Normal) Protein Negative (Normal) WBC Esterase Negative (Normal) Appearance Clear (Normal) pH 7.5 (Normal) Range: 5.0-7.5 Urine-Color Yellow (Normal) Specific [place] 1.013 (Normal) Range: 1.005-1.030 31-Oct-20119:12 METABOLIC PANEL, COMPREHENSIVE Comments: PATIENT WAS FASTINGPERFORMED BY: LabCoBacharach Institute for RehabilitationFgqylx7547 [facility] [id number] (71946) ALT (SGPT) 13 [iU]/L (Normal) Range: 0-55 [...] MANUAL DIFF Comments: PATIENT WAS FASTINGPERFORMED BY: SambazonBacharach Institute for RehabilitationInacry0265 [facility] [id number] Information: [id number] (28216) Immature Grans (Abs) 0.0 {x10E3/uL} (Normal) Range: [...] {x10E3/uL} (Normal) Range: 4.0-10.5 :12 LIPID PANEL (99039) Comments: PATIENT WAS FASTINGPERFORMED BY: SambazonBacharach Institute for RehabilitationEusler1415 [facility] [id number] LDL/HDL Ratio 0.9 {ratio_units} (Normal) Range: 0.0-3.6 LDL Cholesterol Calc 52 mg/dL (Normal) Range: 0-99 VLDL Cholesterol Mike 18 mg/dL (Normal) Range: 5-40 HDL Cholesterol 60 mg/dL (Normal) Comments: According to ATP-III Guidelines, HDL-C >59 mg/dL is considered anegative risk factor for CHD. Cholesterol, Total 130 mg/dL (Normal) Range: 100-199 Triglycerides 92 mg/dL (Normal) Range: 0-149 :32 HgA1C , Office (17176) HgA1C , Office 6.0 % (Normal) Range: 4.6 - 7.1 :32 Blood Glucose , Office (10417) Blood Glucose , Office 128 (Normal) :24 LIPID PANEL (89091) Comments: PATIENT NOT FASTINGPERFORMED BY: SambazonBacharach Institute for RehabilitationTysmvp4673 [facility] [id number] Information: [id number] LDL Cholesterol Calc 33 mg/dL (Normal) Range: [...] Panel, Basic Comments: PATIENT NOT FASTINGPERFORMED BY: LabCoBacharach Institute for RehabilitationZclslh0878 [facility] [id number] Information: [id number] (84798) Calcium, Serum 9.0 mg/dL (Normal) Range: 8.6-10.2 [...] Glucose, Serum 149 mg/dL (Abnormal) Range: 65-99 33-Ysy-03972:56 Ferritin (93982) Comments: PATIENT NOT FASTINGPERFORMED BY: [facility] Afvwhk0289 [facility] [id number] Ferritin, Serum 221 ng/mL (Normal) Range: 30-400 69-Ddj-79897:19 Blood Glucose , Office (49668) Blood Glucose , Office 134 (Normal) 8-Dcs-440794:00 LIPID HDL 61 mg/dL (Normal) Comments: Reference [...] 200-240 mg/dL Borderline >240 mg/dL High Risk 9-Noq-102925:00 LIVER D BILI 0.13 mg/dL (Normal) Range: 0.00-0.30 T BILI 0.40 mg/dL (Normal) Range: 0.00-1.00 ALT 29 U/L (Normal) Range: 12-78 ALK P 43 U/L (Abnormal) Range: 50-136 ALB 4.1 g/dL (Normal) Range: 3.4-5.0 AST 12 U/L (Abnormal) Range: 15-37 T PROT 7.4 g/dL (Normal) Range: 6.4-8.2 2-Pwk-927574:00 BMP CL 102 mmol/L (Normal) Range: 98-107 CO2 25.0 mmol/L (Normal) Range: 21.0-32.0 GAP 10 (Normal) Range: 5-15 K 4.8 mmol/L (Normal) Range: 3.5-5.1 NA 137 mmol/L (Normal) Range: 136-145 BUN/CRE 14.4 {RATIO} (Normal) Range: 10-20 CA 9.5 mg/dL (Normal) Range: 8.5-10.1 BUN 23 mg/dL (Abnormal) Range: 7-18 CREAT,SERUM 1.6 mg/dL (Abnormal) Range: 0.8-1.3 GLU 67 mg/dL (Abnormal) Range: 70-110 51-Gya-398620:29 HIP, MIN 2 VIEWS Radiology Report See [...] on 10/14/10 1005 Sign by: King Calderón 90-Kiq-218250:28 HIP, MIN 2 VIEWS Radiology Report See [...] by: King Calderón :01 HgA1C , Office (05332) HgA1C , Office 6.7 % (Normal) Range: 4.6 - 7.1 :01 Blood Glucose , Office (97150) Blood Glucose , Office 163 (Normal) :39 [...] mg/dL High Risk :57 HgA1C , Office (13155) HgA1C , Office 6.5 % (Normal) Range: 4.6 - 7.1 :57 Blood Glucose , Office (97884) Blood Glucose , Office 155 (Normal) :58 [...] 136-145 GLU 88 mg/dL (Normal) Range: 70-110 34-Agb-331543:32 TESTICULAR (HP) Radiology Report See Note (Normal) Comments: Exam Number: [id number] CLINICAL:This is a 70-year-old male patient with [...] testicles are unremarkable. Reported By: LOUIS SUE 66-Zoj-879497:00 Urinalysis, Office (40145) UA - LEUKOCYTE ESTERASE Negative (Normal) UA - NITRITE Negative (Normal) URINE UROBILINGN CASPER TIMED Normal mg/dL (Normal) UA - PROTEIN 30 mg/dL (Normal) UA - PH 6.0 (Normal) Comments: 5.5 UA - BLOOD Negative (Normal) UA - SPECIFIC GRAVITY 1.025 (Normal) UA - KETONES Negative mg/dL (Normal) UA - BILIRUBIN Negative (Normal) UA - GLUCOSE Negative (Normal) 34-Sou-38687:10 HgA1C , Office (33391) HgA1C , Office 5.5 % (Normal) Range: 4.6 - 7.1 67-Bae-60564:10 Blood Glucose , Office (26775) Blood Glucose , Office 176 (Normal) 54-Aqs-529971:38 ABDOMEN/PELVIS WITH CONTRAST Radiology Report See Note (Normal) Comments: Exam Number: [id number] CLINICAL:70-year-old male with abdominal pain CT ABDOMEN [...] adrenal gland. Reported By: KING CALDERÓN M.D. 64-Mun-773789:00 CBCD ABSOLUTE NEUT 7.8 3/uL (Abnormal) Range: [...] 4.6-6.2 WBC 10.9 K/mm3 (Normal) Range: 4.4-11.0 74-Xeq-234935:00 COMP METABOLIC ALK P 57 U/L (Normal) [...] T PROT 8.1 g/dL (Normal) Range: 6.4-8.2 95-Qvc-216236:0 VITAMIN B12 541 pg/mL (Normal) Range: 254-1320 [...] CHOL 141 mg/dL (Normal) Comments: <200 mg/dL Oiucxlqtn908-614 mg/dL Borderline>240 mg/dL High Risk :33 LIVER ALK P 53 U/L (Normal) Range: 50-136 ALT 25 U/L (Normal) Range: 12-78 D BILI 0.09 mg/dL (Normal) Range: 0.00-0.30 T BILI 0.30 mg/dL (Normal) Range: 0.00-1.00 ALB 3.9 g/dL (Normal) Range: 3.4-5.0 AST 23 U/L (Normal) Range: 15-37 T PROT 7.8 g/dL (Normal) Range: 6.4-8.2 :09 HgA1C , Office (22528) HgA1C , Office 6.6 % (Normal) Range: 4.6 - 7.1 :09 Blood Glucose , Office (31841) Blood Glucose , Office 243 (Normal) :38 [...] CHOL 132 mg/dL (Normal) Comments: <200 mg/dL Bqdpxezna678-415 mg/dL Borderline>240 mg/dL High Risk :38 LIVER [...] PSA Range: 0.0-4.0 :10 HgA1C , Office (93800) HgA1C , Office 6.1 % (Normal) Range: 4.6 - 7.1 :10 Blood Glucose , Office (40823) Blood Glucose , Office 172 (Normal) 30-Rxc-238204:00 LIPID CHOL 150 mg/dL (Normal) Comments: <200 [...] mg/dL VLDL 58 mg/dL (Abnormal) Range: 5-40 18-Lnz-760099:00 LIVER ALB 4.0 g/dL (Normal) Range: 3.4-5.0 ALK P 50 U/L (Normal) Range: 50-136 ALT 25 U/L (Normal) Range: 12-78 Comments: Please Note: Revised Reference Range effective 09 AST 19 U/L (Normal) Range: 15-37 D BILI 0.12 mg/dL (Normal) Range: 0.00-0.30 T BILI 0.50 mg/dL (Normal) Range: 0.00-1.00 T PROT 7.7 g/dL (Normal) Range: 6.4-8.2 [id number] CBCD,SMEAR DIFF Comments: ORDERED CBCMD LIPID CMP [...] mg/dL (Normal) :38 Blood Glucose , Office (72742) Blood Glucose , Office 163 (Normal) :38 HgA1C , Office (56131) HgA1C , Office 6.0 % (Normal) Range: [...] (Normal) Range: 0.0-4.0 :06 HgA1C , Office (50079) HgA1C , Office 5.9 % (Normal) Range: 4.6 - 7.1 :06 Blood Glucose , Office (01526) Blood Glucose , Office 157 (Normal) :50 METABOLIC PANEL, COMPREHENSIVE Comments: PATIENT NOT FASTINGPERFORMED BY: [id number] [id number] ([id number]) A/G Ratio 1.6 (Normal) Range: 1.1-2.5 Albumin, [...] Serum 102 mg/dL (Abnormal) Range: 65-99 If -[place] >59 mL/min/1.73 Comments: Note: Persistent reduction for [...] Sodium, Serum 143 mmol/L (Normal) Range: 135-145 [id number]:50 CBC WITH MANUAL DIFF ([id number]) Comments: PATIENT NOT FASTINGClinical Information: ADD DRAW FEE [id number] ADD J [id number] PERFORMED BY: [facility] [id number] Baso (Absolute) 0.0 {x10E3/uL} (Normal) Range: 0.0-0.2 [...] (Normal) Range: 4.0-10.5 :11 HgA1C , Office (05155) HgA1C , Office 5.6 % (Normal) Range: 4.6 - 7.1 :11 Blood Glucose , Office (00967) Blood Glucose , Office 101 (Normal) :55 HgA1C , Office (86888) HgA1C , Office 5.9 % (Normal) Range: 4.6 - 7.1 :55 Blood Glucose , Office (26927) Blood Glucose , Office 104 (Normal) 2-Roa-918863:23 Billing Information Required Comments: TEST(S) ORDERED: [id number]-Rsjzaggl-Zyyivwqz Ag, SerumPATIENT NOT FASTINGClinical Information: ADD DRAW FEE [id number] ADD J 83601 PERFORMED BY: [facility] [id number] [facility] (Normal) Comments: To enable [facility] to file an insurance claim on behalf of yourpatient, please provide or update as indicated the required billinginformation listed below. The HIPAA Privacy regulation at 45 ZNV412.506 (c) (3) provides that a covered entity (Physician's Office/Referring Provider) may disclose PHI to another covered entity([facility]) for purposes of payment without patient authorization. .Please provide requested information and return via your servicerepresentative or fax to [phone] within 3 days. 5-Ojo-795691:23 Billing Information Required Comments: TEST(S) ORDERED: [id number]-Seeqbwbs-Zkuisvnd Ag, SerumPATIENT NOT FASTINGPERFORMED BY: [facility] [facility] [id number] Highest Level of SPRCS Comments: Information Submitted: NOT GIVENPlease Provide: Diagnosis Code, Signs or Symptoms in ICD9 format at the highest level of specificity.Updated/Corrected Information: Specificity (Normal) __Physician/Designee Signature: Date: 8-Hjv-971731:23 PSA (PROSTATE SPECIFIC Comments: PATIENT NOT FASTINGClinical Information: ADD DRAW FEE 330136 ADD J 21903 [facility]FORMED BY: [facility] [id number] ANTIGEN) (V76.44) Prostate Specific Ag, Serum 1.1 ng/mL (Normal) Range: 0.0-4.0 Comments: [employer] ([employer] ICMA methodology. .EFFECTIVE March 30, 2008, PSA will be changing to the Erik ECLIA methodology. R ebaselining will be offered for 90 days using panel 318723. The second result, provided by the [employer] ICMA methodology will be provided at no charge. 6-Dnj-308687:19 HgA1C , Office (55209) HgA1C , Office 6.1 % (Normal) Range: 4.6 - 7.1 :19 Blood Glucose , Office (87298) Blood Glucose , Office 248 (Normal) :23 [...] 228.3 mg/dL (Normal) :51 HgA1C , Office (85387) HgA1C , Office 5.7 % (Normal) Range: 4.6 - 7.1 Comments: aw :51 Blood Glucose , Office (56930) Blood Glucose , Office 197 (Normal) Comments: aw :41 TROPONIN-I 0.04 ng/mL (Normal) Comments: TROPONIN-I EXPECTED VALUES < 0.50 NEGATIVE 0.50 - 1.49 INDETERMINANT > OR = 1.50 SUGGEST OR :40 BMP Comments: COMMENTS: BONEZZIINDICATE CK '1', [...] 1.49 INDETERMINANT > OR = 1.50 SUGGEST OR :41 BMP BUN 19 mg/dL (Abnormal) Range: [...] 1.49 INDETERMINANT > OR = 1.50 SUGGEST OR :30 PROTEIN,UR.RAN. 22.8 mg/dL (Abnormal) Comments: HOLD [...] AMI > 5 > 4 :10 SPE [id number] A/G RATIO 1.2 (Normal) Range: 0.7-2.0 ALBUMIN [...] Evidenceof monoclonal protein is not apparent.Performed At: [facility] [place], [place] [id number] M-SPIKE SeeNote g/dL (Normal) Comments: Result: Not Observed NOTE: Comment (Normal) Comments: Protein electrophoresis scan will follow via mail orcourier. PROTEIN,TOTAL 6.9 g/dL (Normal) Range: 6.0-8.5 :10 TROPONIN-I < 0.04 ng/mL (Normal) Comments: INDICATE CK '1', '2', '3', OR 'R' FOR RANDOM: 2 Comments: TROPONIN-I EXPECTED VALUES < 0.50 NEGATIVE 0.50 - 1.49 INDETERMINANT > OR = 1.50 SUGGEST OR :50 PRO TIME INR 1.0 (Normal) PROTIME 12.2 s (Normal) Range: 10.6-13.2 :50 TROPONIN-I < 0.04 ng/mL (Normal) Comments: TROPONIN-I EXPECTED VALUES < 0.50 NEGATIVE 0.50 - 1.49 INDETERMINANT > OR = 1.50 SUGGEST OR :08 SHONDA 38 U/L (Normal) Comments: COMMENTS: [...] 1.49 INDETERMINANT > OR = 1.50 SUGGEST OR :30 CHEST WITHOUT CONTRAST Radiology Report See Note (Normal) Comments: Exam Number: [id number] CT HIGH RESOLUTION OF CHEST WITHOUT CONTRAST [...] DENISSE URIAS M.D. :13 HgA1C , Office (49255) HgA1C , Office 6.5 % (Normal) Range: 4.6 - 7.1 :13 Blood Glucose , Office (67826) Blood Glucose , Office 124 (Normal) :59 [...] Report See Note (Normal) Comments: Exam Number: [id number] PA AND LATERAL CHEST HISTORY Being done for cough. FINDINGSCardiac configuration is normal. No acute infiltrate, effusion, orpneumothorax is identified. There is a pacema ker noted in the leftanterior chest. No abnormality is noted in the leads as demonstrated. IMPRESSION1. No acute change noted in the lungs. 2. Little if any change from 09/04/06. Reported By: AMANDO NANCE M.D. 8-Iyv-349632:00 C DIF See Note (Normal) Comments: C. [...] (Normal) Range: 5-40 :35 HgA1C , Office (37219) HgA1C , Office 5.6 % (Normal) Range: [...] - 1.0 :39 Blood Glucose , Office (17630) Blood Glucose , Office 161 (Normal) :39 HgA1C , Office (49200) HgA1C , Office 5.7 % (Normal) Range: [...] swelling : Follow up 3 days with [facility] Indication: Leg swelling RLS (restless legs syndrome) [...] Wheezing Planned Observations CBC WITH MANUAL DIFF (29430)Indication: CKD (chronic kidney disease), stage 3 (moderate) On: 02-Jan-2021 Request Comments: standing order q 3 months MAGNESIUM (35508)Indication: CKD (chronic kidney disease), stage 3 (moderate) On: 02-Jan-2021 Request Comments: standing order q 3 months PARATHORMONE (31231)Indication: CKD (chronic kidney disease), stage 3 (moderate) On: 02-Jan-2021 Request Comments: standing order q 3 months PHOSPHORUS (71557)Indication: CKD (chronic kidney disease), stage 3 (moderate) On: 02-Jan-2021 Request Comments: standing order q 3 months Renal function Panel (24209)Indication: CKD (chronic kidney disease), stage 3 (moderate) On: 02-Jan-2021 Request Comments: standing order q 3 months CBC WITH MANUAL DIFF ([id number])Indication: CKD (chronic kidney disease), stage 3 (moderate) On: 04-Oct-2020 Request Comments: standing order q 3 months MAGNESIUM (52063)Indication: CKD (chronic kidney disease), stage 3 (moderate) On: 04-Oct-2020 Request Comments: standing order q 3 months PARATHORMONE ([id number])Indication: CKD (chronic kidney disease), stage 3 (moderate) On: 04-Oct-2020 Request Comments: standing order q 3 months PHOSPHORUS ([id number])Indication: CKD (chronic kidney disease), stage 3 (moderate) On: 04-Oct-2020 Request Comments: standing order q 3 months Renal function Panel (99502)Indication: CKD (chronic kidney disease), stage 3 (moderate) On: 04-Oct-2020 Request Comments: standing order q 3 months CBC WITH MANUAL DIFF ([id number])Indication: CKD (chronic kidney disease), stage 3 (moderate) On: 06-Jul-2020 Request Comments: standing order q 3 months MAGNESIUM (72606)Indication: CKD (chronic kidney disease), stage 3 (moderate) On: 06-Jul-2020 Request Comments: standing order q 3 months PARATHORMONE ([id number])Indication: CKD (chronic kidney disease), stage 3 (moderate) On: 06-Jul-2020 Request Comments: standing order q 3 months PHOSPHORUS ([id number])Indication: CKD (chronic kidney disease), stage 3 (moderate) On: 06-Jul-2020 Request Comments: standing order q 3 months Renal function Panel (31331)Indication: CKD (chronic kidney disease), stage 3 (moderate) On: 06-Jul-2020 Request Comments: standing order q 3 months CBC WITH MANUAL DIFF (45121)Indication: CKD (chronic kidney disease), stage 3 (moderate) On: 07-Apr-2020 Request Comments: standing order q 3 months MAGNESIUM (88918)Indication: CKD (chronic kidney disease), stage 3 (moderate) On: 07-Apr-2020 Request Comments: standing order q 3 months PARATHORMONE (43805)Indication: CKD (chronic kidney disease), stage 3 (moderate) On: 07-Apr-2020 Request Comments: standing order q 3 months PHOSPHORUS ([id number])Indication: CKD (chronic kidney disease), stage 3 (moderate) On: 07-Apr-2020 Request Comments: standing order q 3 months Renal function Panel ([id number])Indication: CKD (chronic kidney disease), stage 3 (moderate) On: 07-Apr-2020 Request Comments: standing order q 3 months CBC WITH MANUAL DIFF ([id number])Indication: CKD (chronic kidney disease), stage 3 (moderate) On: 08-Jan-2020 Request Comments: standing order q 3 months MAGNESIUM ([id number])Indication: CKD (chronic kidney disease), stage 3 (moderate) On: 08-Jan-2020 Request Comments: standing order q 3 months PARATHORMONE ([id number])Indication: CKD (chronic kidney disease), stage 3 (moderate) On: 08-Jan-2020 Request Comments: standing order q 3 months PHOSPHORUS ([id number])Indication: CKD (chronic kidney disease), stage 3 (moderate) On: 08-Jan-2020 Request Comments: standing order q 3 months Renal function Panel (72098)Indication: CKD (chronic kidney disease), stage 3 (moderate) On: 08-Jan-2020 Request Comments: standing order q 3 months CBC WITH MANUAL DIFF ([id number])Indication: CKD (chronic kidney disease), stage 3 (moderate) On: 10-Oct-2019 Request Comments: standing order q 3 months MAGNESIUM (88474)Indication: CKD (chronic kidney disease), stage 3 (moderate) On: 10-Oct-2019 Request Comments: standing order q 3 months PARATHORMONE ([id number])Indication: CKD (chronic kidney disease), stage 3 (moderate) On: 10-Oct-2019 Request Comments: standing order q 3 months PHOSPHORUS ([id number])Indication: CKD (chronic kidney disease), stage 3 (moderate) On: 10-Oct-2019 Request Comments: standing order q 3 months Renal function Panel ([id number])Indication: CKD (chronic kidney disease), stage 3 (moderate) On: 10-Oct-2019 Request Comments: standing order q 3 months CBC WITH MANUAL DIFF ([id number])Indication: CKD (chronic kidney disease), stage 3 (moderate) On: 12-Jul-2019 Request Comments: standing order q 3 months MAGNESIUM ([id number])Indication: CKD (chronic kidney disease), stage 3 (moderate) On: 12-Jul-2019 Request Comments: standing order q 3 months PARATHORMONE ([id number])Indication: CKD (chronic kidney disease), stage 3 (moderate) On: 12-Jul-2019 Request Comments: standing order q 3 months PHOSPHORUS ([id number])Indication: CKD (chronic kidney disease), stage 3 (moderate) On: 12-Jul-2019 Request Comments: standing order q 3 months Renal function Panel ([id number])Indication: CKD (chronic kidney disease), stage 3 (moderate) On: 12-Jul-2019 Request Comments: standing order q 3 months CBC WITH MANUAL DIFF ([id number])Indication: CKD (chronic kidney disease), stage 3 (moderate) On: 13-Apr-2019 Request Comments: standing order q 3 months MAGNESIUM (34821)Indication: CKD (chronic kidney disease), stage 3 (moderate) On: 13-Apr-2019 Request Comments: standing order q 3 months PARATHORMONE ([id number])Indication: CKD (chronic kidney disease), stage 3 (moderate) On: 13-Apr-2019 Request Comments: standing order q 3 months PHOSPHORUS ([id number])Indication: CKD (chronic kidney disease), stage 3 (moderate) On: 13-Apr-2019 Request Comments: standing order q 3 months Renal function Panel ([id number])Indication: CKD (chronic kidney disease), stage 3 (moderate) On: 13-Apr-2019 Request Comments: standing order q 3 months CBC WITH MANUAL DIFF ([id number])Indication: CKD (chronic kidney disease), stage 3 (moderate) On: 13-Jan-2019 Request Comments: standing order q 3 months MAGNESIUM ([id number])Indication: CKD (chronic kidney disease), stage 3 (moderate) On: 13-Jan-2019 Request Comments: standing order q 3 months PARATHORMONE ([id number])Indication: CKD (chronic kidney disease), stage 3 (moderate) On: 13-Jan-2019 Request Comments: standing order q 3 months PHOSPHORUS ([id number])Indication: CKD (chronic kidney disease), stage 3 (moderate) On: 13-Jan-2019 Request Comments: standing order q 3 months HEPATIC FUNCTION PANEL (98502)Indication: Diabetes mellitus with chronic kidney disease On: :40 Request HgA1C , Office (20360)Indication: Diabetes mellitus with chronic kidney disease On: 11-Pqy-715019:37 Request CBC WITH MANUAL DIFF (40913)Indication: CKD (chronic kidney disease), stage 3 (moderate) On: :36 Request Comments: standing order q 3 months PHOSPHORUS ([id number])Indication: CKD (chronic kidney disease), stage 3 (moderate) On: 55-Kcx-598134:36 Request Comments: standing order q 3 months MAGNESIUM ([id number])Indication: CKD (chronic kidney disease), stage 3 (moderate) On: 68-Kwk-487823:36 Request Comments: standing order q 3 months Renal function Panel (52962)Indication: CKD (chronic kidney disease), stage 3 (moderate) On: 13-Ebu-229028:36 Request Comments: standing order q 3 months PREALBUMIN (05926)Indication: Anorexia On: 01-Mxm-869489:36 Request MAGNESIUM (02272)Indication: CKD (chronic kidney disease), stage 3 (moderate) On: 15-Oct-2018 Request Comments: standing order q 3 months PARATHORMONE ([id number])Indication: CKD (chronic kidney disease), stage 3 (moderate) On: 15-Oct-2018 Request Comments: standing order q 3 months Keppra ([id number])Indication: Seizure On: 23-Rdw-351981:02 Request Comments: send all labs stat TSH ([id number])Indication: Cardiac dysrhythmia On: 20-Jla-05127:40 Request Troponin I (88361)Indication: Episode of syncope On: 49-Jfi-00687:39 Request BNTP (09171)Indication: Episode of syncope On: 94-Ala-90214:39 Request CBC (Auto) (60674)Indication: Episode of syncope On: 91-Ljk-71308:38 Request Metabolic Panel, Comprehensive (34935)Indication: Episode of syncope On: 14-Xvq-15294:38 Request Keppra (32320)Indication: Seizure On: 33-Dbw-038363:57 Request Comments: all copies to Dr. jung CBC WITH MANUAL DIFF (60221)Indication: CKD (chronic kidney disease), stage 3 (moderate) On: :57 Request Comments: standing order q 3 months PHOSPHORUS (15643)Indication: CKD (chronic kidney disease), stage 3 (moderate) On: 06-Xmo-715311:57 Request Comments: standing order q 3 months PARATHORMONE (61942)Indication: CKD (chronic kidney disease), stage 3 (moderate) On: 88-Bph-055611:57 Request Comments: standing order q 3 months Renal function Panel (72250)Indication: CKD (chronic kidney disease), stage 3 (moderate) On: :57 Request Comments: standing order q 3 months Metabolic Panel, Basic (93829)Indication: Hypertension On: 50-Naj-549643:34 Request Platelet 23806 (citrate, nonclumping tube)Indication: Thrombocytopenia On: 59-Lfh-000099:25 Request Keppra (57629)Indication: Generally unsteady On: 89-Fqe-728108:20 Request Comments: Dr. Jung copy to him Methymalonic Acid, Serum (22683)Indication: CKD (chronic kidney disease), stage 3 (moderate) On: 16-Prt-93240:35 Request Vitamin B-12 (cyanocobalamin) (34675)Indication: CKD (chronic kidney disease), stage 3 (moderate) On: :35 Request FIBRIN DEGRAD SLIDE AGGL (56504)Indication: Abnormal platelet aggregation On: :19 Request LDH (LD) (LACTATE DEHYDROGENASE) (36760)Indication: Abnormal platelet aggregation On: :13 Request Platelet Count (02697)Indication: Abnormal platelet aggregation On: :12 Request Comments: PLEASE DRAW IN CITRATE TUBE Renal function Panel (96767)Indication: Hypotension, postural On: :46 Request CBC, Platelets & Auto Diff (42658)Indication: Hypotension, postural On: 85-Hdj-420413:45 Request Troponin I (51146)Indication: Hypotension, postural On: 72-Mhg-882446:45 Request TSH (29724)Indication: Hypotension, postural On: 38-Pxx-093315:43 Request PHOSPHORUS (61964)Indication: CKD (chronic kidney disease), stage 3 (moderate) On: 32-Reg-081592:23 Request Comments: standing order q 3 months Troponin I (16233)Indication: History of CHF (congestive heart failure) On: 31-Kye-799879:54 Request Renal function Panel (58460)Indication: History of CHF (congestive heart failure) On: 86-Fxy-832891:54 Request TSH (30634)Indication: Hypothyroid On: 01-Hwr-956176:50 Request METABOLIC PANEL, COMPREHENSIVE (71817)Indication: Diabetes mellitus with chronic kidney disease On: 18-Nfq-363275:50 Request MICROALBUMIN: CREATININE RATIO (83537) AND (33380)Indication: CKD (chronic kidney disease), stage 3 (moderate) On: 4-Yyb-482088:41 Request Comments: copy to Dr. Murcia [phone] Parathyroid Hormone-related Peptide (PTH-rP) (61234)Indication: CKD (chronic kidney disease), stage 3 (moderate) On: :41 Request Comments: copy to Dr. Murcia [phone] URINALYSIS, W/ MICRO (15174)Indication: Diabetes mellitus with chronic kidney disease On: :47 Request Comments: 07-15 METABOLIC PANEL, COMPREHENSIVE (99472)Indication: Diabetes mellitus with chronic kidney disease On: :47 Request Comments: 07-15 LIPOPROTEIN, BLD, BY NMR (51250)Indication: Diabetes mellitus with chronic kidney disease On: :46 Request Comments: 07-15 CBC with auto diff (12404)Indication: Diabetes mellitus with chronic kidney disease On: :46 Request Comments: 07-15 ANCA-P (ANTI NEUTROPHIL CYTOPLASMIC ANTIBODY)Indication: CKD (chronic kidney disease), stage 3 (moderate) On: :38 Request PSA (PROSTATE SPECIFIC ANTIGEN) (V76.44)Indication: Screening for prostate cancer On: 41-Rzw-492800:13 Request Comments: 06-14 PARATHORMONE (80769)Indication: CKD (chronic kidney disease), stage 3 (moderate) On: :51 Request Magnesium (16577)Indication: CKD (chronic kidney disease), stage 3 (moderate) On: :51 Request CALCIFIDIOL (70077) VIT D 25Indication: CKD (chronic kidney disease), stage 3 (moderate) On: :51 Request Total Protein,24 Hour Urine (11492)Indication: CKD (chronic kidney disease), stage 3 (moderate) On: :50 Request CREATININE CLEARANCE (86486)Indication: CKD (chronic kidney disease), stage 3 (moderate) On: :50 Request Metabolic Panel, Basic (84261)Indication: Cardiomyopathy On: :30 Request Comments: 2 weeks METABOLIC PANEL, COMPREHENSIVE (89857)Indication: Hypertension On: : Request Comments: in three months (approximately) CBC with auto diff (87431)Indication: Hypertension On: :29 Request Comments: in three months (approximately) METABOLIC PANEL, BASIC (31494)Indication: Diabetes mellitus with chronic kidney disease On: 91-Qud-003989:05 Request Comments: recheck in 2 wks HGB A1C (10250)Indication: Diabetes mellitus with chronic kidney disease On: 04-Dyf-497312:01 Request MAGNESIUM (45139)Indication: Hypomagnesemia On: :53 Request LIPID PANEL (07095)Indication: Hypertension On: :53 Request Comments: copy to Dr. harmon TSH (28647)Indication: Hypothyroid On: :53 Request METABOLIC PANEL, COMPREHENSIVE (01862)Indication: Hypertension On: :53 Request CBC with auto diff (95111)Indication: Hypertension On: :52 Request CBC (Auto) (61354)Indication: Hypertension On: 17-Tnd-783169:44 Request Comments: in three months (approximately) Renal function Panel (77568)Indication: Hypertension On: :44 Request Comments: in three months (approximately) Metabolic Panel, Basic (44420)Indication: Hypertension On: :30 Request METABOLIC PANEL, BASIC (46568)Indication: Hypertension On: :37 Request Comments: Forward to Val Almeida at [facility] at fax [phone] also PSA (PROSTATE SPECIFIC ANTIGEN) (V76.44)Indication: Encounter for health maintenance examination with abnormal findings On: 32-Edg-665592:11 Request Comments: due 07-12 MICROALBUMIN: CREATININE RATIO (45709) AND (25478)Indication: Diabetic nephropathy On: :39 Request METABOLIC PANEL, COMPREHENSIVE (50134)Indication: Diabetes mellitus type II, controlled On: 5-Yqw-083498:39 Request URINALYSIS, W/ MICRO (97618)Indication: Diabetes mellitus type II, controlled On: 30-Ebx-71048:56 Request METABOLIC PANEL, COMPREHENSIVE (30214)Indication: Diabetes mellitus type II, controlled On: :56 Request CBC WITH MANUAL DIFF (73978)Indication: Diabetes mellitus type II, controlled On: :56 Request HgA1C , Office (19210)Indication: Diabetes mellitus type II, controlled On: :19 Request Metabolic Panel, Basic (03528)Indication: Cardiomyopathy On: :01 Request LIPID PANEL (83735)Indication: Diabetes mellitus with chronic kidney disease On: :30 Request METABOLIC PANEL, COMPREHENSIVE (56430)Indication: Diabetes mellitus with chronic kidney disease On: :30 Request CBC WITH MANUAL DIFF (63442)Indication: Diabetes mellitus with chronic kidney disease On: :30 Request Comments: copy Dr. hu CREATININE CLEARANCE (26969)Indication: Renal insufficiency On: :06 Request 24 hour urine for Protein (74526)Indication: Renal insufficiency On: :06 Request Metabolic Panel, Basic (93950)Indication: Renal insufficiency On: :05 Request Metabolic Panel, Basic (21617)Indication: Renal insufficiency On: 41-Eeo-090189:03 Request Urinalysis, Office (09924)Indication: Cystitis, acute On: 00-Qkj-243881:37 Request URINE LIBORIO CULTURE-CASPER COL COUNT (07153)Indication: Cystitis, acute On: :37 Request CBC, Platelets & Auto Diff (06397)Indication: Cramp in limb On: :44 Request Vitamin B-12 (cyanocobalamin) (11974)Indication: Cramp in limb On: :44 Request Metabolic Panel, Comprehensive (37386)Indication: Cramp in limb On: :44 Request METABOLIC PANEL, COMPREHENSIVE (34985)Indication: Diabetes mellitus type II, controlled On: 0-Dje-182888:50 Request LIPID PANEL (72306)Indication: Diabetes mellitus type II, controlled On: 6-Qdu-550186:50 Request Comments: in three months (approximately) PSA (PROSTATE SPECIFIC ANTIGEN) (V76.44)Indication: Diabetes mellitus type II, controlled On: :30 Request CBC WITH MANUAL DIFF (01654)Indication: Diabetes mellitus type II, controlled On: : Request MICROALBUMIN: CREATININE RATIO (36454) AND (40041)Indication: Diabetes mellitus type II, controlled On: : Request Metabolic Panel, Basic (87011)Indication: Diabetes mellitus type II, controlled On: :29 Request MICROALBUMIN: CREATININE RATIO (58653) AND (73983)Indication: Diabetes mellitus type II, controlled On: 76-Hnr-289308:53 Request METABOLIC PANEL, COMPREHENSIVE (04629)Indication: Diabetes mellitus type II, controlled On: 52-Ilu-896482:53 Request LIPID PANEL (18778)Indication: Diabetes mellitus type II, controlled On: 10-Lhn-450466:53 Request CBC WITH MANUAL DIFF (78959)Indication: Diabetes mellitus type II, controlled On: 13-Hpe-082440:53 Request Comments: in three months (approximately) PSA (PROSTATE SPECIFIC ANTIGEN) (V76.44)Indication: Well Male On: :32 Request MICROALBUMIN: CREATININE RATIO (96659) AND (32490)Indication: Diabetes mellitus type II, controlled On: :32 Request METABOLIC PANEL, COMPREHENSIVE (88545)Indication: Diabetes mellitus type II, controlled On: :32 Request CBC WITH MANUAL DIFF (54497)Indication: Diabetes mellitus type II, controlled On: :32 Request LIPID PANEL (36550)Indication: Diabetes mellitus type II, controlled On: 74-Xda-503918:32 Request URINALYSIS W/O MICRO (36227)Indication: Cardiomyopathy On: :22 Request Metabolic Panel, Basic (61294)Indication: Hypertension On: 88-Vql-195044:12 Request Comments: sept CBC (Auto) (11751)Indication: Diabetes mellitus type II, controlled On: 3-Hwg-700172:10 Request Metabolic Panel, Comprehensive (86853)Indication: Diabetes mellitus type II, controlled On: 1-Oaa-725655:10 Request MICROALBUMIN: CREATININE RATIO (05091) AND (04692)Indication: Diabetes mellitus type II, controlled On: :12 Request CBC WITH MANUAL DIFF (91391)Indication: Diabetes mellitus type II, controlled On: :12 Request Comments: in three months (approximately) METABOLIC PANEL, COMPREHENSIVE (48537)Indication: Diabetes mellitus type II, controlled On: 7-Ojm-262218:12 Request LIPID PANEL (50594)Indication: Hypertension On: :08 Request METABOLIC PANEL, COMPREHENSIVE (24936)Indication: Hypertension On: 4-Pyq-353029:08 Request METABOLIC PANEL, BASIC (71255)Indication: Acute renal failure, unspecified acute renal failure type On: :01 Request Comments: with next blood draw PSA (PROSTATE SPECIFIC ANTIGEN) (47258)Indication: Encounter for health maintenance examination with abnormal findings On: 2-Nlc-175079:55 Request Comments: after 09-20-06 MICROALBUMIN 24 HOUR OR RANDOM (20450)Indication: DIABETIC NEPHROPATHY On: :49 Request CREATININE CLEARANCE (33396)Indication: DIABETIC NEPHROPATHY On: 6-Pgm-681574:49 Request Planned Encounters Medical; MICHAEL 2 Week FU - On: 27-Nov-2018 10:00 [facility] D[facility] ROGERS, Anabella Turcios MD Planned Procedures ELECTROCARDIOGRAM, COMPLETE (ECG) On: 17-Sep-2018 Intent (77767)By: Anabella Núñez MD Comments: see scanned document of test done to see results reviewed today with patient Anabella ROGERS INFUSION OF 0.9% SODIUM CHLORIDE On: 25-Apr-2018 Intent SOLUTION (90123)By: Anabella Núñez MD Comments: lot:[id number]:rte:IV right anticub dose:250ccgiven by:aaliyah FRASER signedERASAD MD, Dana M ELECTROCARDIOGRAM, COMPLETE (ECG) On: 25-Apr-2018 Intent (57533)By: Anabella Núñez MD Comments: see scanned document of test done to see results reviewed today with patient Anabella ROGERS INFUSION, NORMAL SALINE SOLUTION , On: 18-Jan-2018 Intent 1000 CC (Special Coverage Instructions Comments: lot:[id number]:01/15rte:IV dose: 500ml sodium chloride given by: aaliyah left fore arm ABN signedER, POLYTECH[employer]IC REGISTRAR Apply. See MCM: 2048) ([id number])By: Anabella Núñez MD, MD, Dana M Radiology - Chest- PA and LatBy: Fast On: 09-Jan-2018 Intent Delisa BARFIELD Comments: stat call results Spirometry ([id number])By: Delisa Gordon DO On: 06-Jun-2017 Intent A Comments: good effort and curve with decrease in small airways Radiology - Chest- PA and LatBy: Fast On: 06-Jun-2017 Delisa Pittman DO Comments: stat call rsutls Ultrasound - RenalBy: Anabella Núñez MD On: 06-Sep-2016 Intent Anabella Tirado MD Aerosol Treatment ([id number])By: Mynor On: 15-Feb-2016 Intent Daria LION Radiology - ChestBy: Daria Lowe CNP On: 13-Sep-2015 Intent Solu -Medrol Injection, 125 mg On: 13-Sep-2015 Intent ([id number])By: Daria Lowe CNP Comments: lot:[id number]:12/2017route:IMdose:125mgsite:SMA Nahomy Aerosol Treatment ([id number])By: Mynor On: 13-Sep-2015 Intent Daria LION Comments: patient tolerated well Aerosol Treatment ([id number])By: Dami On: 07-Sep-2015 Intent Anabella ROGERS MD, Dana M Prevnar 13 ([id number])By: Dami ROGERS, On: 16-Oct-2014 Intent Anabella Turcios MD ADMINISTRATION OF INFLUENZA VIRUS On: 04-Aug-2014 Intent VACCINE (G0008)By: Visit, Nurse Comments: Lot #[id number]-L dltd, IMDose prefilled syringegiven by:Madelaine and ABN signed FLU VAC, SPLIT, >3 YEARS, INTRAMUSC On: 04-Aug-2014 Intent ([id number])By: Visit, Nurse Radiology - ChestBy: Anabella Núñez MD On: 20-Jan-2014 Intent Anabella Tirado MD Aerosol Treatment ([id number])By: Dami On: 20-Jan-2014 Intent Anabella ROGERS MD, Dana M Eprescribed prescriptions ([id number])By: On: 20-Jan-2014 Intent Anabella Núñez MD, MD, Dana M FLU VAC, SPLIT, >3 YEARS, INTRAMUSC On: 10-Jul-2013 Intent ([id number])By: MATILDA Hernandez Comments: Lot #:[id number] date:6.14Amount given:0.5mlRoute: IMSite given:L DltdGiven by: NAS and ABN signed ADMINISTRATION OF INFLUENZA VIRUS On: 10-Jul-2013 Intent VACCINE (G0008)By: MATILDA Hernandez Eprescribed prescriptions ([id number])By: On: 11-Dec-2012 Intent Delisa Gordon DO Pulse Oximetry ([id number])By: Evan BARFIELD, On: 11-Dec-2012 Intent Delisa Monte Comments: 98 Spirometry ([id number])By: Delisa Gordon DO On: 11-Dec-2012 Intent A Comments: good effort and curve normal Radiology - Chest- PA and LatBy: Fast On: 11-Dec-2012 Delisa Pittman DO Comments: call wet read Eprescribed prescriptions ([id number])By: On: 18-Nov-2012 Intent La Nena Nicole DO TDAP VACCINE >7 IM ([id number])By: David On: 20-Feb-2012 Intent MATILDA Comments: Lot #:[id number] date:84-53-40Vzapkv given:0.5mlRoute: IMSite given:right deltoid Given by: aaliyah mallory Pulse Oximetry ([id number])By: Mynor LION, On: 17-Oct-2011 Intent Simona Aerosol Treatment ([id number])By: Mynor On: 17-Oct-2011 Intent Daria LION FLU VAC, SPLIT, >3 YEARS, INTRAMUSC On: 08-Aug-2011 Intent ([id number])By: Diana Caballero RN Comments: Lot #: [id number] date: 04/09Amount given: 0.5 mlRoute: IMSite given: left deltoidGiven by: BEKA Dc ADMINISTRATION OF INFLUENZA VIRUS On: 08-Aug-2011 Intent VACCINE (G0008)By: Diana Caballero RN Radiology - Hip - BilateralBy: Dami On: 13-Oct-2010 Intent Anabella ROGERS MD, Dana M Spirometry ([id number])By: Dami ROGERS, On: 13-Oct-2010 Intent Anabella Turcios MD Pulse Oximetry ([id number])By: Dami ROGERS, On: 13-Oct-2010 Intent Anabella Turcios MD FLU VAC, SPLIT, >3 YEARS, INTRAMUSC On: 05-Sep-2010 Intent ([id number])By: Dasha Ramirez LPN Comments: Lot #[id number]/11site-right deltoidgiven by:[facility] ADMINISTRATION OF INFLUENZA VIRUS On: 05-Sep-2010 Intent VACCINE (G0008)By: Dasha Ramirez LPN Renal DopplerBy: Anabella Núñez MD On: 23-May-2010 Intent Anabella Núñez MD Ultrasound - TesticularBy: Mynor LION, On: 10-May-[address] - Abdomen & Pelvis (IV Contrast On: 09-May-2010 Intent Needed)By: Daria Lowe CNP Comments: today call wet read to [facility] ADMINISTRATION OF INFLUENZA VIRUS On: 26-Jul-2009 Intent VACCINE (G0008)By: Anabella Núñez MD Comments: lot # [id number]- 0.5ML Tolerated well Chenderson MA Bonezzi MD, Anabella M FLU VAC, SPLIT, >3 YEARS, INTRAMUSC On: 26-Jul-2009 Intent ([id number])By: Anabella Núñez MD, MD, Dana M EKG ([id number])By: Gabriela Douglas On: 19-Jun-2008 Intent EsophagramBy: Anabella Núñez MD On: 20-Nov-2007 Intent Anabella Núñez MD Inhaler Demonstration ([id number])By: On: 02-Oct-2007 Intent Daria Lowe CNP Pulse Oximetry ([id number])By: Mynor LION, On: 02-Oct-2007 Intent Daria Otto Aerosol Treatment ([id number])By: Mynor On: 02-Oct-2007 Daria Pittman CNP Six Minute Walk Assessment ([id number])By: On: 27-Feb-2007 Intent Dhara Oquendo LPN Comments: ABN signed Inhaler Demo ([id number])By: Delisa Gordon DO On: 18-Feb-2007 Intent A Pulse Oximetry ([id number])By: DILSHAD LION, On: 31-Jan-2007 Intent MARIO Comments: 96% Aerosol Treatment ([id number])By: DILSHAD On: 31-Jan-2007 Intent MARIO LION Solu- Medrol Injection, 125mg On: 31-Jan-2007 Intent ([id number])By: MARIO YUNG CNP Aerosol Treatment ([id number])By: Evan BARFIELD, On: 28-Jan-2007 Intent Delisa Monte Inhaler Demo ([id number])By: Delisa Gordon DO On: 28-Jan-2007 Intent A Radiology - Chest- PA and LatBy: Evan On: 28-Jan-2007 Delisa Pittman DO Spirometry ([id number])By: Delisa Gordon DO On: 28-Jan-2007 Intent A Comments: good effort and curve- mild obstruction Pulse Oximetry ([id number])By: Gene, On: 28-Jan-2007 Intent Rolanda Comments: ins [...] for health maintenance examination with abnormal findings OR (myocardial infarction) : How to access health information online Indication: OR (myocardial infarction) OR (myocardial infarction) : How to access health information online - Detail Indication: OR (myocardial infarction) OR (myocardial infarction) : Patient Instructions Indication: OR (myocardial infarction) Allergic rhinitis : Patient Instructions [...] CHF (congestive heart failure), Abnormal laboratory test, OR (myocardial infarction) , Sensorineural hearing loss (SNHL) [...] Erectile dysfunction, Memory loss, Subdural hemorrhage, Nonsmoker, OR (myocardial infarction), Peripheral vascular disease, CKD (chronic [...] both ears, Memory loss, Abnormal laboratory test, OR (myocardial infarction), Erectile dysfunction, Peripheral vascular disease, [...] alcohol, Diabetes mellitus with chronic kidney disease, OR (myocardial infarction), Uncoordinated movements, Memory loss, Obesity, [...] Historical Summary On: 18-Apr-2017 9:33 Encounter Diagnosis: OR (myocardial infarction) End: 18-Apr-2017 9:36 Comprehensive Internal [...] syndrome), Uncoordinated movements, Hyperplasia, prostate, Macrocytosis, Hypertension, OR (myocardial infarction), Hypothyroid, Erectile dysfunction, Allergic rhinitis, [...] patient does h ave durable power of hand welt butter and living will. The patient has noticed thinking most people are better off than them (due to heart concerns) and nothing from the geriatic depression scale. Other provide rs contributing to the patient's care are logistics team leader (fritz) and other: (Divina, kidney). Encounter Diagnosis: BMI 30.0-30.9,adult, Hyperplasia, prostate, OR (myocardial infarction), Allergic rhinitis, Macrocytosis, Cardiomyopathy, Obstructive [...] Testicular hypofunction, Hypothyroid, Erectile dysfunction, Allergic rhinitis, OR (myocardial infarction), Hyperplasia, prostate, Macrocytosis, Gum hyperplasia, [...] failure), Obesity, RLS (restless legs syndrome) , OR (myocardial infarction), Testicular hypofunction, Gum hyperplasia, BMI [...] - Reason for ER visit: note: (had OR in [place] ). The patient feels well with no complaints and has good energy level. Patient has been compliant with instructions. Current medicati End: 17-Mar-2016 13:29 on use: no side effects, compliant with dosing regimen and considered effective by patient. Patient sleeps 7 hours per night. Impact of disease: emotional impact-mild. Nutrition: balanced diet and suppl emental vitamins. Hospital procedures performed were heart catherization.Encounter Diagnosis: OR (myocardial infarction), History of tobacco abuse, Cardiac [...] The patient does have durable power of hand welt butter and living will. The patient has noticed lack of energy. Other providers contributing to the patient's care are logistics team leader (Fritz), gastrologist (Dr. Small ) and other: [...] Nutrition: balanced diet and supplemental vitamins. The in dical issues the patient is following up [...] Comprehensive Internal Medicine End: 03-Jul-2006 11:43 Payers Isaac Pereira/MedicareJAMES KAPP; jose guarantor
--- OUTSIDE RECORDS SUMMARY | 2019-01-20 06:03 | XMS RPT_ITS | Continuity of Care Document ---
:1940 Author Organization [facility] Address [address] [facility] [facility] [address] [place] [address] Phone Care Team Providers Name Role Phone Anabella Núñez MD Unavailable Sameer Curiel DPM Unavailable Anny BARFIELD Christian Unavailable Olesya Mcelroy Unavailable Unavailable MATILDA Hernandez Unavailable Unavailable Unavailable Unavailable Problems Name Dates Details Abnormal platelet aggregation (D69.1, 287.1) Status: Active Acute bacterial bronchitis (J20.8, 466.0) Comments: was in hospital and better quickly with atb, steriods and aerosols. he was given zithromax for 5 days in hospital therefore not dc on any atb. 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 ornelas [facility]. VT is pace terminated. some atrial arrthymias. they put him on max tikosyn and are watching his rhythym and signs and symptoms doing well not need to deal with amio and thryioecto my. will follow up with fritz reviewed with patient specialist's note Status: Active Cardiomyopathy (I42.9, 425.4) Comments: MAGDALENA 07-14 30% 3-18 30% Status: Active CKD (chronic kidney disease), stage 3 (moderate) (N18.3, 585.3) Comments: crcl 62 at 1.4 on 02-11 had cath 03-13 up to 1.9 now trend down 1.8 [...] Coronary artery disease (I25.10, 414.00) Comments: cath 05-11, 03-13. see cardio Status: Active Current drinker of [...] 5 days a week 20 min, BMI=30.0, 6CIT=16/28, PHQ-9=1 (minimal depression) dentist and eye exm yearly Status: Active Episode of syncope (R55, 780.2) Comments: this episode sound like seizure. willcheck labs. interigate the pacer. fliud vvolume status looks good. will talk to cardiology now. Status: Active Erectile dysfunction (N52.9, 607.84) Comments: not able to take viagra ask about l arginine. look up literature about in medical journals. look like hebrew study that it did help. no side [...] up some need tighten sugars. Status: Active Obesity (E66.9, 278.00) Comments: starting [...] CT scan of head 10-15 no change Status: Active Sensorineural hearing loss (SNHL) of both ears (H90.3, 389.18) Comments: use hearing aides as need not like irritation Status: Active Shortness of breath (R06.02, 786.05) Comments: more now ? extra fluid. ? related to weakness in legs and overall exercise intolerance. rhythm and ischemic heart good Status: Active Sore throat (J02.9, 462) Comments: with yellow sputumand tooth infection will treat with atb. 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: Active Thrombocytopenia (D69.6, 287.5) Status: Active Vitamin D insufficiency (E55.9, 268.9) Status: Active Medications Name Dates Details Aspirin EC 81 MG Oral Tablet Delayed Release [address] daily for 0 days Quantity: 30 {Tablet} Refills: 0 Ordered:08-Jan-2017 Niya ROGERS, Anabella Bowie MD, Anabella Miller Start : 08-Jan-2017 Active Atorvastatin Calcium 10 MG Oral Tablet 1 (one) Tablet qd for 0 days Quantity: 30 {Tablet} Refills: 6 Ordered:08-Feb-2018 Anabella Núñez MD, MD, Dana M Start : 08-Feb-2018 Active Basaglar KwikPen 100 UNIT/ML Subcutaneous Solution Pen-injector 10 units daily (100 UNIT/ML) Active Bumex 1 MG Oral Tablet 1 (one) Tablet bid for 0 days Quantity: 180 {Tablet} Refills: 3 Ordered:14-Jan-2018 Anabella Núñez MD, MD, Dana M Start : 14-Jan-2018 Active Coreg 12.5 MG Oral Tablet 1 1/2 Tablet bid for 0 days Quantity: 270 {Tablet} Refills: 3 Ordered:31-May-2018 Anabella Núñez MD, MD, Dana M Start : 31-May-2018 Active HumaLOG 100 UNIT/ML Subcutaneous Solution start 150 BS before meals SS (100 UNIT/ML) Active HydrALAZINE HCl 25 MG Oral Tablet [...] M Start : 17-Aug-2017 Active Comments:changed from [facility] dc summary MagOx 400 400 (241.3 Mg) MG Oral Tablet 1 (one) Tablet qd for 0 days Quantity: 90 {Tablet} Refills: 3 Ordered:19-Aug-2018 Niya ROGERS, Anabella Carmichael MD Start : 19-Aug-2018 Active Metoprolol Succinate ER 25 MG Oral Tablet Extended Release 24 Hour in am (25 MG) Active Mexiletine HCl 150 MG Oral Capsule 1 (one) Capsule tid for 0 days Quantity: 90 {Capsule} Refills: 6 Ordered:01-Aug-2018 Anabella Núñez MD, MD, Dana M Start : 01-Aug-2018 Active MiraLax Oral Powder 1 (one) Gram i capful in am for 0 days Quantity: 1 {Bottle} Refills: 0 Ordered:02-May-2018 Anabella Núñez MD, MD, Dana M Start : 02-May-2018 Active NITROSTAT, 0.4MG (Sublingual Tablet Sublingual) 1 (one) Tab Sublingual tid/prn for 0 days Quantity: 30 {Tab_Sublingual} Refills: 4 Ordered:15-Nov-2015 Anabella Núñez MD, MD, Dana M Start : 15-Nov-2015 Active Ranexa 1000 MG Oral Tablet Extended Release 12 Hour 1 Tablet bid for 0 days Quantity: 180 {Tablet} Refills: 3 Ordered:29-May-2018 Anabella Núñez MD, MD, Dana M Start : 29-May-2018 Active Requip 1 MG Oral Tablet uad Tablet 2 a day for 0 days Quantity: 90 {Tablet} Refills: 3 Ordered:16-Sep-2018 Anabella Núñez MD, MD, Dana M Start : 16-Sep-2018 Active Triamcinolone Acetonide 0.5 % External Cream 1 (one) Application Application daily on inner lower legs for 0 days Quantity: 1 {Tube} Refills: 0 Ordered:16-Sep-2018 MATILDA Hernandez Start : 16-Sep-2018 Active Comments:mix with Sarna Vitamin D3 High Potency 1000 UNIT Oral Capsule 1 (one) Capsule Capsule in am for 0 days Quantity: 30 {Capsule} Refills: 0 Ordered:24-Aug-2017 Olesya Mcelroy Start : 25-Jun-2017 Active ACIPHEX, 20MG (Oral Tablet Delayed Release) 1 [...] days Quantity: 28 {Tablet} Refills: 0 Ordered:13-Aug-2018 Niya ROGERS, Anabella Bowie MD, Anabella Miller Start : 13-Aug-2018 End : 27-Aug-2018 Inactive BIAXIN XL, 500MG (Oral Tablet Extended [...] Start : 13-Sep-2015 End : 16-Sep-2015 Inactive CRESTOR, 5MG (Oral Tablet) 1 qd [...] Start : 09-Jan-2017 End : 11-Jun-2017 Inactive Ipratropium-Albuterol 0.5-2.5 (3) MG/3ML Inhalation Solution [...] days Quantity: 10 {Tablet} Refills: 0 Ordered:10-Oct-2016 Niya ROGERS, Anabella Bowie MD, Anabella Miller Start [...] : 13-Oct-2010 End : 07-Apr-2011 Inactive NYSTATIN, [id number]/GM (External Powder) 1 Powder bid for 0 [...] : 10-Jan-2018 End : 14-Jan-2018 Inactive Comments:natalie ein am PredniSONE 20 MG Oral Tablet 1 Tablet uad for 9 days Refills: 0 Ordered:29-Aug-2016 Niya ROGERS, Anabella Bowie MD, Anabella Miller Start [...] Ordered:17-Apr-2011 MATILDA Hernandez End : 17-Apr-2011 Inactive TRILIPIX, 135MG (Oral Capsule Delayed Release) [address] qd for 0 days Quantity: 30 {Capsule_DR} Refills: 0 Ordered:08-Jan-2014 MATILDA Hernandez Start : 15-Aug-2011 End : 08-Jan-2014 Inactive VICODIN ES, 7.5-750MG (Oral Tablet) 1 (one) Tablet 4-6 hrs prn pain for 0 days Quantity: 30 {Tablet} Refills: 0 Ordered:13-Oct-2010 MATILDA Hernandez Start : 09-May-2010 End : 13-Oct-2010 Inactive VICODIN, 5-500MG (Oral Tablet) 1-2 Tablet every 6 hours prn for 0 days Quantity: 30 {Tablet} Refills: 1 Ordered:15-Aug-2011 MATILDA Hernandez Start : 09-Mar-2011 End : 15-Aug-2011 Inactive ZOSTAVAX, 58625XMN/0.65ML (Subcutaneous Solution Reconstituted) 1 For Solution once [...] Start : 06-Jul-2006 End : 20-Nov-2007 Discontinued Potassium Chloride Oksana ER 20 MEQ Oral Tablet Extended Release 1 (one) Tablet ER qd for 0 days Quantity: 30 {Tablet} Refills: 6 Ordered:01-Aug-2018 Anabella Núñez MD, MD, Dana M Start : 01-Aug-2018 End : 28-Oct-2018 Discontinued PREDNISONE, 10MG (Oral Tablet) 1 Tablet [...] Start : 24-Aug-2017 End : 24-Aug-2017 Discontinued ZOCOR, 40MG (Oral Tablet) 1 Tablet Daily [...] labs first Status: Inactive as of 08-Jan-2014 Abnormal laboratory test (R89.9, 796.4) Comments: TMAO is eleated with his hx of HF this denotes increase in mortality so we need to start probiotic Status: Resolved as of 19-Aug-2018 Acute back pain, unspecified back location, unspecified back pain laterality (M54.9, 724.5) Comments: acute related to unload soil. tylenol rest gentle strecthing add muscle rleaxnat Status: Resolved as of 25-Dec-2017 Acute CHF (I50.9, 428.0) Comments: 8[facility]14 [facility] chf and pacemaker discharge [...] Inactive as of 21-Nov-2012 Cough (R05, 786.2) 13-Oct-2010 Comments: had bronchitis treated over the phone treated better than was warned may take weeks to get stamina back. Status: Resolved as of 25-Dec-2017 Cough (R05, 786.2) Comments: wheezing still yellow on cefdininr and prednisone Status: Resolved as of 25-May-2018 Cramp in limb (R25.2, 729.82) Status: Resolved [...] 787.2) 06-Aug-2012 Status: Inactive as of 06-Aug-2012 GERD (gastroesophageal reflux disease) (K21.9, 530.81) Comments: [...] (M79.89, 729.81) Status: Resolved as of 25-Dec-2017 LA (myocardial infarction) (I21.9, 410.90) Comments: talk about get records. see what cath showed talk about fish oil await doing biomarker sn inflammatory markers ? VT related since cath [facility] [place] had sonja st pain radiated down arm, and squad took him to hospital, told had LA, took off lasix, and put on bumex. did cardiac cath, cardio spoke with Dr. Hu via phone, no stent needed Status: Resolved as of 25-May-2018 Need for prophylactic vaccination and inoculation against influenza (Z23, V04.81) Status: Inactive as of 16-Oct-2014 Need for vaccination against Streptococcus pneumoniae (Z23, V03.82) Status: Inactive as of 22-Jan-2015 Nonsmoker (Z78.9, V49.89) Status: Resolved as of 17-Sep-2018 Other testicular dysfunction (E29.8, 257.8) Status: Inactive [...] to daily Status: Inactive as of 17-Mar-2016 Subdural hemorrhage (I62.00, 432.1) Status: Resolved as [...] as of 21-Nov-2012 Procedures Procedure Dates Details CARDIAC ABLATION (31557) Completed Comments: [facility] cholecytectomy 10-04 Completed CRANIOTOMY, EMERGENT, FOR SUBDURAL Completed HEMATOMA EVACUATION (14977) Comments: [facility] Completed Comments: stent 10-04 Left heart cath Completed Comments: [facility] Right and left coronary angiography, Saphenous vein with angiography hemostatsis with Mynx Dr. [id number] Left Heart Cath [facility] DX: moderate to severe elevated LVEDP pacemaker Completed Comments: 2001, ICD, replaced 06-11 Total right hip replacement Completed Comments: [facility] 11-07-11 rec. 3 units PRBC's Date Value Details 16-Oct-2018 Emergency Department Summary Result: Comments: See Note; NOTES: [facility] Medical Records Department [address] [place] [address] Emergency Department Summary 10/16/18 1348 MR#: [id number] Acct: [id number] Name: MAYRA GHOSH Rep #: [id number] : 1940 78 From: Darrel Bean MD PCP: Anabella Núñez MD Status: REG ER - ER Visit Summary Date of Service: 10/16/18 Chief Complaint: Cough and generalized weakn ess. History of Present Illness: The patient is a [address] of cardiomyopathy, V. tach, defibrillator, noncemented diabetes, renal insufficiency, CAD with prior double bypass. Recent ablation at [facility]. Prior intracranial bleed with surgical drainage. Patient [...] significant concern he was discharged twice from [facility] and had to be readmitted. She is [...] and CABG and cardiomyopa thy History of vqd-cccmbdw-cuimrtzsc diabetes History of renal insufficiency This note was generated with Adimabation software. It may contain incorrect words, spelling, [...] Emergency Room. Call 911 if necessary. 10/16/18 4967 <Electronically signed by Darrel Bean MD> Date Star Bean MD Cosigner Signature (If Indicated): Date CC: Anabella Núñez MD 16-Oct-2018 Chest 1 View (Portable) Result: Comments: See Note; NOTES: [facility] Imaging Services [address] [place] [address] Chest 1 View (Portable) MR#: [id number] Acct: [id number] Name: MAYRA GHOSH Rep #: [id number] : 1940 78 From: Gene Martell DO PCP: Anabella Núñez MD Status: REG ER Study: Chest 1 View (Portable) Date of Exam: 10/16/18 Exam# [id number] Ordering Dr: Darrel Bean MD STUDY: X-RAY [...] w hich are clear. Electronically Signed: Gene MartellDO at 14:35 EST Tel , Service support , CC: Anabella Núñez MD; Darrel Bean MD Credit Resolution Representative: Signed 30-Sep-2018 Chest 1 View (Portable) Result: Comments: See Note; NOTES: [facility] Imaging Services [address] [place] [address] Chest 1 View (Portable) MR#: [id number] Acct: [id number] Name: MAYRA GHOSH Rep #: [id number] : 1940 [facility] From: Nereyda Barr MD PCP: Anabella Núñez MD Status: REG ER Study: Chest 1 View (Portable) Date of Exam: 09/30/18 Exam# [id number] Ordering Dr: Jennifer Sibley MD STUDY: X-RAY [...] CC: MD Zelalem palma; Anabella Núñez MD Credit Resolution Representative: Signed 22-Sep-2018 History and Physical Exam Result: Comments: See Note; NOTES: [facility] Medical Records Department [address] [place] [address] History and Physical 09/22/18 0602 MR#: [id number] Acct: [id number] Name: JETHRO GHOSH Rep #: [id number] : 1940 78 From: Etta Grey PCP: [...] Qualifiers: Coronary Disease-Associated Artery/Lesion type: bypass graft [place] vs. transplanted he art: [place] heart Associated angina: angina presence unspecified Qualified Code(s): I25.810 - Atherosclerosis of coronary artery bypass graft(s) without angina pectoris (6) XOCHITL (obstructive sleep apnea ) Status: Chronic (7) Diabetes mellitus type 2, noninsulin dependent Status: Chronic (8) Atherosclerotic heart disease of [place] coronary artery without angina pectoris Status: Chronic Qualifiers: [place] vs. transplanted heart: [place] heart Qualified Code(s): I25.10 - Atherosclerotic heart disease of [place] coronary artery without angina pectoris Comment: CABG 1988; Reoperation CABG x3 SVG to LAD, S VG to Rt PDA, Radial artery to OM-2 10/08/02; [place] ablation @[facility] 01/03/17 [facility] 03/10/2016 (9) Ventricular tachycardia (paroxysmal) Status: Chronic [...] type II, XOCHITL who presents to the [facility] ED on 09/22/18 with history of nausea, [...] (Chronic) Hypokalemia (Chronic) Atherosclerotic heart disease of [place] coronary artery without angina pectoris (Chronic) CABG 1988; Reoperation CABG x3 SVG to LAD, SVG to Rt PDA, Radial artery to OM-2 10/08/02; VT ablation @[facility] 01/03/17 [facility] 03/10/2016 Ventricular tachycardia (paroxysmal) (Chronic) ICD (implantable cardioverter-defibrillator) in place (Chronic 11/2001) Implant 12/10/2001 ICD replacement 06/10/2009, 06/05/2014, Systolic CHF, chronic (Chronic) Cardiomyopathy, ischemic (Chronic) CKD (chronic kidney disease), stage II (Chronic) Type I I diabetes mellitus, uncontrolled (Chronic) Esophageal reflux (Chronic) HLD (hyperlipidemia) (Chronic) HTN (hypertension) (Chronic) Hypothyroidism (Chronic) Sleep apnea (Chronic) Medical History: [facility] History (Last Reviewed 08/30/18 @ 13:48 by Olile Cobos) HLD (hyperlipidemia) (Chronic) E78.5 Non-ST elevation [...] Hypokalemia (Chronic) E87.6 Atherosclerotic heart disease of [place] coronary artery without angina pectoris (Chronic) I25.10 CABG 1988; Reoperation CABG x3 SVG to LAD, SVG to Rt PDA, R adial artery to OM-2 10/08/02; VT ablation @[facility] 01/03/17 [facility] 03/10/2016 Ventricular tachycardia (paroxysmal) (Chronic) I47.2 ICD [...] II, XOCHITL who present s to the [facility] ED on 09/22/18 with history of nausea, [...] DVT Prophylaxis: SCDs, heparin. Code Visit OBSV Clarita AND Angela: [id number] Initial observation care L3 09/22/18 0634 <Electronically signed by Etta Grey > Date Etta Grey Cosign er Signature: Date (if applicable) CC: Etta Grey; Anabella Núñez MD Signed 22-Sep-2018 Emergency Department Summary Result: Comments: See Note; NOTES: [facility] Medical Records Department [address] [place] [address] Emergency Department Summary 09/22/18 0619 MR#: [id number] Acct: [id number] Name: MAYRA GHOSH Rep #: [id number] : 1940 78 From: Juan C Winston [...] Epiploic appendagitis This note was generated with Nambii dictation software. It may contain incorrect words, spelling, and punctuation that were not noted in review of the [facility] rt prior to signing ED Disposition - Plan for ED Patient: Chief Complaint: Nausea/Vomiting Referrals: Anabella Núñez MD [Primary Care Provider] - What to do if you have Problems For any increased pain, shortness of breath, bleeding, nausea or vomiting, chest pain, or any unexpected problems, contact your Primary Care Provider. Call [facility] ([phone]) or report to the closest Emergen cy Room. Call 911 if necessary. 09/22/18 0621 <Electronically signed by Juan C Winston MD> Date Juan C Winston MD Cosigner Signatur e (If Indicated): Date CC: Anabella Núñez MD 22-Sep-2018 Abdomen/Pelvis without Cont Result: Comments: See Note; NOTES: [facility] Imaging Services [address] [place] [address] Abdomen/Pelvis without Cont MR#: [id number] Acct: [id number] Name: MAYRA GHOSH Joyce Rep #: [id number] : 1940 M 78 From: Vernon Coronel MD PCP: Anabella Núñez MD Status: REG ER Study: Abdomen/Pelvis without Cont Date of Exam: 09/22/18 Exam# [id number] Ordering Dr: Juan C Winston MD STUDY: [...] Anabella Núñez MD; Juan C Winston MD Credit Resolution Representative: Signed 30-Aug-2018 Cardiology Visit Report Result: Comments: See Note; NOTES: [facility] [address] [place] [address] OFFICE VISIT Date of Service: 08/30/18 MR#: [id number] Acct: [id number] Name: MAYRA GHOSH Re p #: [id number] : 1940 Provider: Amando Hu MD Age/Sex: 78/M Location: [facility] Status: Signed HPI HPI Details: MAYRA GHOSH, [...] Intake Visit Reasons: f/up (pt r/s from 9-24) Allergies amiodarone Allergy (Verified 08/30/18 13:42) Other [...] PO .COMPLEX tab 08/30/18 [History Confirmed 08/30/18] ON LICENSE OF [facility] Medical History HLD (hyperlipidemia) (Chronic) [...] (Chronic) Hypokalemia (Chronic) Atherosclerotic heart disease of [place] coronary artery without angina pectoris (Chronic) Ventricular [...] Negative for rash Cardiology Exam Const Appearance: 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 Contrast injection was [id number]. Mildly dilated left ventricle. Moderately severe segmental [...] peak blood pressure of 116/66 mmHg. [facility] ECG demonstrated normal sinus rhythm with a [...] an LVEF of 26%. Cardiac cath: 016: [place], [place] II. SELECTIVE CORONARY ANGIOGRAPHY: A. 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 CAD in [place] artery I25.10 Plan At the present time [...] is on dual antiarrhythmic therapy per his jig worker. He appears to be tolerating the medications [...] prior to saving. Follow Up 6 Mo nt ([facility]) 08/30/18 (Copy of BMP from PCP and Nephrology) Coding Level of Care Code Off vis,est,level 4 Diagnoses CAD in [place] artery I25.10 Postsurgical aortocoronary bypass status Z95.1 [...] Code Off vis,est,level 4 Diagnoses CAD in [place] artery I25.10 Postsurgical aortocoronary bypass status Z95.1 [...] M.D. 30-Aug-2018 12 Lead EKG performed by [facility] Result: Comments: See Note; NOTES: [facility] [address] [place] [address] 12 Lead EKG performed by [facility] 08/30/18 1425 MR#: [id number] Acct: [id number] Name: MAYRA GHOSH Rep #: [id number] : 1940 78 From: Amando Hu MD Attending Dr: Amando Hu MD Status: DEP AMB Ordering Dr: Amando Hu MD Date: 08/30/18 Location: [facility] Sex: M C Admitted: O RDER #: [id number] [facility]/12 Lead EKG performed by [facility] ECG Report Interpretation Electronic ventricular pacemaker Pacemaker ECG, No further analysis Electronically signed on 2017 at 15:23 by Amando Hu Software Version [id number] 08/30/18 1524 Date Amando Hu MD CC: Anabella Núñez MD Date Dictated: 08/30/18 Date Transcribed: 08/30/18 1425 Credit Resolution Representative: PM Signed 14-Aug-2018 Pacemaker Check Result: Comments: See Note; NOTES: [facility] [address] [place] [address] Pacemaker Check Date of Service: 08/14/18 1620 MR#: [id number] Acct: [id number] Name: CLARE GHOSH W Rep #: [id number] : 1940 From: Kristie Perry Age/Sex: 78/M Location: [facility] Status: Signed Billing Codes ICD Device Billing: ICD Dev Interrogate (Rmt) 08/14/18 1623 <Electroni jacque signed by Kristie Perry > Date Kristie Perry 08/14/18 1646<Electronically signed by Amando Hu MD> Wei Signatstephanie e: Date (if applicable) Amando Hu MD CC: 30-Jul-2018 Pacemaker Check Result: Comments: See Note; NOTES: [facility] [address] [place] [address] Pacemaker Check Date of Service: 07/30/18 0949 MR#: [id number] Acct: [id number] Name: CLARE GHOSH Rep #: [id number] : 1940 From: Kristie Perry Age/Sex: 78/M Location: [facility] Status: Signed Billing Codes ICD Device Billing: ICD Dev Interrogate (Rmt) 07/30/18 0951 <Electroni jacque signed by Kristie Perry > Date Kristie Perry 07/30/18 1047<Electronically signed by Amando Hu MD> Cosigner Signatur e: Date (if applicable) Amando Hu MD CC: 07-May-2018 Pacemaker Check Result: Comments: See Note; NOTES: [facility] [address] [place] [address] Pacemaker Check Date of Service: 05/07/181649 MR#: [id number] Acct: [id number] Name: MIRELACLARE Willams Rep #: [id number] : 1940 From: Kristie Perry Age/Sex: 78/M Location: [facility] Status: Signed Billing Codes ICD Device Billing: ICD Dev Interrogate (Rmt) 05/07/181653 <Electroni jacque signed by Kristie Perry > Date Kristie Perry 05/07/181756<Electronically signed by Amando Hu MD> Wei Signatur e: Date (if applicable) Amando Hu MD CC: 22-Feb-2018 Cardiology Visit Report Result: Comments: See Note; NOTES: [facility] [address] [place] [address] OFFICE VISIT Date of Service: 02/22/18 MR#: [id number] Acct: [id number] Name: MAYRA GHOSH p #: [id number] : 1940 Provider: Amando Hu MD Age/Sex: 77/M Location: [facility] Status: Signed HPI HPI Details: MAYRA MIRELA, is a 77 M who presents to the office today for for outpatient card iovascular follow-up. He has been hospitalized at [facility] in December of this year for [...] mg PO QWEEK PRN tab 02/22/18 [History] ON LICENSE OF [facility] Medical His tory HLD (hyperlipidemia) [...] (Chronic) Hypokalemia (Chronic) Atherosclerotic heart disease of [place] coronary artery witho ut angina pectoris (Chronic) [...] his underlying renal status. 2. Atherosclerosis of [place] coronary artery of [place] heart without angina pectoris I25.10 CABG 1988; Reoperation CABG x3 SVG to LAD, SVG to Rt PDA, Radial artery to OM-2 10/08/02; VT ablation @[facility] 01/03/17 [facility] 03/10/2016 Plan He does have a long-standing [...] Systolic CHF, chronic I50.22 Atherosc lerosis of [place] coronary artery of [place] heart without angina pectoris I25.10 [place] vs. transplanted heart: [place] heart Postsurgical aortocoronary bypass status Z95.1 Cardiomyopathy, [...] Diagnoses Systolic CHF, chronic I50.22 Atherosclerosis of [place] coronary artery of [place] heart without angina pectoris I25.10 Inupiat vs. transpla nted heart: [place] heart Postsurgical aortocoronary bypass status Z95.1 Cardiomyopathy, [...] Pacemaker Check Result: Comments: See Note; NOTES: [facility] 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 Saturnino Oquendo/[facility] Patient Characteristics Ventricular Indication: Nonsustained VT, Sustaned VT Patient Substrate: Ischemic cardiomyopathy Ejection fraction %: 35 to 39 ( 02/2017) By: Echo Pacemaker Dependent: No Device Characteristics Device: Biventricular Type: Implantable defibrillator Remote Follow-Up: [employer] Leads Lead #1 Trash Collector Truck Driver Lead 1: [place] Model Lead 1: 2088TC Serial# Lead 1: [id number] Date Implanted Lead 1: 06/05/14 Position Lead 1: RA Lead #2 Trash Collector Truck Driver Lead 2: Medtronic Model Lead 2: 6947 Serial# Lead 2: [id number] Date Implanted Lead 2: 11/09 Lead #3 Trash Collector Truck Driver Lead 3: [employer] Model Lead 3: 1258T Serial# Lead 3: [id number] Date Implanted Lead 3: 06/05/14 Position Lead [...] 02/12/18 0933<Electronically signed by Amando Hu MD> Wei Signature: Date (if applicable) Amando Hu MD CC: 18-Jan-2018 Chest 1 View (Portable) Result: Comments: See Note; NOTES: [facility] Imaging Services [address] [place] [address] Chest 1 View (Portable) MR#: [id number] Acct: [id number] Name: MAYRA GHOSH Rep #: [id number] : 1940 M 77 From: Renae Coleman MD PCP: Anabella Núñez MD Status: REG ER Study: Chest 1 View (Portable) Date of Exam: 01/18/18 Exam# [id number] Ordering Dr: Bennie Hernandez MD STUDY: X-RAY SONJA REASON FOR EXAM: Male, 77 years old. [...] CC: Anabella Núñez MD; Bennie Hernandez MD Credit Resolution Representative: Signed 09-Jan-2018 Chest PA and Lateral Result: Comments: See Note; NOTES: [facility] Imaging Services [address] [place] [address] Chest PA and Lateral MR#: [id number] Acct: [id number] Name: MAYRA GHOSH Rep #: [id number] : 1940 M 77 From: Louis Leahy MD PCP: Anabella Núñez MD Status: REG CLI Study: Chest PA and Lateral Date of Exam: 01/09/18 Exam# [id number] Ordering Dr: Delisa Gordon DO STUDY: X-RAY [...] acute abnormality is seen. Electronically Signed: Louis Leahy MD at 12:59 EDT Tel [phone], Service support , CC: Anabella Núñez MD; Delisa Gordon DO Credit Resolution Representative: Signed 07-Jan-2018 Inital Evaluation (1) - PT Result: Comments: See Note; NOTES: [facility] Physical Therapy [facility] [address] [place] [address] Fax REHABILITATION SERVICES INITIAL EVALUATION MR#: [id number] Acct: [id number] Name: MAYRA GHOSH Rep #: [id number] : 1940 77 From: Polo Bedolla DPT, OCS, CSCS Referring Dr.: CLARI Smith Status: REG RCR Insurance: [facility] SELF PAY INSURANCE Patient's Visit Information MAYRA GHOSH is a 77 year old M referred to Physical Therapy by Krystal Smith NP-C RAILWAYS ASSISTANT.LCODY with a diagnosis of unsteady. Date of Evaluation: 01/03/18 P hysical Therapist: Polo Bedolla, DPMaricruz, OC - Visit Plan Plan: Pt doesn not want to undergo further balance or strength at this time as he can and will continue on his own as planned. He has no falls nor does he feel unsteady. 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 He understands doctors offic e has written a script for that and is awaiting their referral phone call. Otherwise he will continue ex as planned in previous discharge summary. - Subjective Subjective: Dizzyness and balance the jagdish e as last week. Not sure why he is here. Saw both doctors last week and said he was fine. Will workout at [facility] I adn continue HEP of balance ex as taught to him. Does nto wish to have balance PT. 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 No other major changes [...] to be FAXED BACK to us at [phone] for Medicare purposes. Please let me know if there are questions or concerns regarding this plan of care. Physician Signature: Date:____ <Electronically signed by Polo Bedolla DPT, OCS, CSCS> 01/07/18 0643 CC: CLARI Smith; Anabella Núñez MD EBG Signed For Medicare only, by signing this I certify the plan of care. Physicians Signature Date 25-Dec-2017 PT D/C Summary (1) Result: Comments: See Note; NOTES: [facility] [address] [place] [address]. [address] [place] [address] Fax REHABILITATION SERVICES DISCHAR GE SUMMARY MR#: [id number] Acct: [id number] Name: MAYRA GHOSH Rep #: [id number] : 1940 77 From: Polo Bedolla DPT, OCS, CSCS Referring Dr.: Anabella Núñez MD Status: REG RCR Insurance: [employer] R SELF PAY INSURANCE HP - PT D/C Summary It has been my pleasure to treat MAYRA GHOSH under orders from DR.DBONEZ Cassi for the diagnosis of h/o subdural hematoma [...] please feel free to call me at [phone]. Thank you for the referral of this patient. Sincerely, Polo Jewell am, DPT, OC <Electronically signed by Polo Bedolla DPT, OCS, CSCS> 12/25/17 0906 CC: Anabella Núñez MD EBG Signed 10-Dec-2017 Office Visit Report Result: Comments: See Note; NOTES: [facility] [address] [place] [address] OFFICE VISIT Date of Service: 10/25/17 MR#: [id number] Acct: [id number] Patient: MAYRA GHOSH Rep #: [id number] : 1940 Provider: Kristie Perry Age/Sex: 77/M Location: [facility] Status: Signed Device Device Date Interviewed: 10/25/17 Follow-up Location: remote Interview Reason: scheduled follow up Man ufacturer: Medtronic Name: Viva S MACHINE TRACER-D Model: [id number] Serial #: [id number] Implant Date: 06/05/14 Year(s): 3 Implant Physician: Dr. Saturnino Oquendo/[facility] Patient Characteristics Ventricular Indication: Nonsu stained VT, Sustaned VT Patient Substrate: Ischemic cardiomyopathy Ejection fraction %: 35 to 39 (02/2017) By: Echo Underlying rhythm: Sinus rhythm (1st degree AVB and frequent PVC's) Pacemaker Dependen t: No Device Characteristics Device: Biventricular Type: Implantable defibrillator Remote Follow-Up: [employer] Leads Lead #1 Trash Collector Truck Driver Lead 1: [employer] [place] Model Lead 1: 2088TC Serial# Lead 1: [id number] Date Implanted Lead 1: 06/05/14 Position Lead 1: RA Lead #2 Trash Collector Truck Driver Lead 2: Medtronic Model Lead 2: 6947 Serial# Lead 2: [id number] Date Implanted Lead 2: 11/09/01 Lead #3 Trash Collector Truck Driver Lead 3: [employer] Model Lead 3: 1258T Serial# Lead 3: [id number] Date Implanted Lead 3: 06/05/14 Position Lead [...] ppt scheduled for in 3 mos. 12/10/17 1186 <Electronically signed by Ollie HERNANDEZ> Date Kristie Bethigner Signature : Date (if applicable) CC: 03-Dec-2017 Inital Evaluation (1) - PT Result: Comments: See Note; NOTES: [facility] [address] [place] [address]. [address] [place], [place] [address] Fax REHABILITATION SERVICES INITIAL EVALUATION MR#: [id number] Acct: [id number] Name: MAYRA GHOSH Rep #: [id number] : 1940 77 From: Polo Bedolla DPT, OCS, CSCS Referring Dr.: Anabella Núñez MD Status: REG R Insurance: [facility] SELF PAY INSURANCE Patient's Visit Information MAYRA [...] wear him out to get to the Rule.. Normally works out at [employer] with balance ex. Feels like vik jane [...] to be FAXED BACK to us at [phone] for Medicare purposes. Please let me know if there are questions or concerns regarding this plan of care. Physician Signature: Date: <Electronically sig favian by Polo Bedolla DPT, OCS, CSCS> 12/03/17 0942 CC: Anabella Núñez MD EBG Signed For Medicare only, by signing this I certify the plan of care. Physicians Signature Date 14-Nov-2017 Cardiology Visit Report Result: Comments: See Note; NOTES: [facility] 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 At that time he [...] last diagnostic cardiac catheterization was performed at [facility] in [place], [place] on 03/08/2016. At that ti me [...] CABG was performed on 10/08/2002 at the [facility]. At that time he had an S to the LAD, and SVG to the RCA, and a radial artery to OM 2. He did have an EP study performed at [facility] on 01/04/20 17. 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 transplanted heart: just[place]ary heart Postsurgical [...] and Lateral Result: Comments: See Note; NOTES: [facility] Imaging Services [address] [place] [address] Chest PA and Lateral MR#: [id number] Acct: [id number] Name: MAYRA GHOSH Rep #: [id number] : 1940 M 77 From: Nereyda Barr MD PCP: Anabella Núñez MD Status: REG CLI Study: Chest PA and Lateral Date of Exam: 11/11/17 Exam# [id number] Ordering Dr: Anabella Núñez MD STUDY: X-RAY [...] Service support , CC: Anabella Núñez MD Credit Resolution Representative: Signed 30-Oct-2017 Office Visit Report Result: Comments: See Note; NOTES: [place] [id number] [facility] [place] [address] OFFICE VISIT Date of Service: 10/25/17 MR#: [id number] Acct: [id number] Patient: MAYRA GHOSH Rep #: [id number] : 1940 Provider: Kristie Perry Age/Sex: 77/M Location: [facility] Status: Signed Device Device Date Interviewed: 10/25/17 Follow-up Location: remote Interview Reason: scheduled follow up Man ufacturer: [employer]tronic Name: Viva S MACHINE TRACER-D Model: [id number] Serial #: [id number] Implant Date: 06/05/14 Year(s): 3 Implant Physician: Dr. Saturnino Oquendo/[facility] Patient Characteristics Ventricular Indication: Nonsu stained VT, Sustaned VT Patient Substrate: Ischemic cardiomyopathy Ejection fraction %: 35 to 39 (02/2017) By: Echo Underlying rhythm: Sinus rhythm (1st degree AVB and frequent PVC's) Pacemaker Dependen t: No Device Characteristics Device: Biventricular Type: Implantable defibrillator Remote Follow-Up: [employer] Leads Lead #1 Trash Collector Truck Driver Lead 1: [employer] [place] Model Lead 1: 2088TC Serial# Lead 1: [id number] Date Implanted Lead 1: 06/05/14 Position Lead 1: RA Lead #2 Trash Collector Truck Driver Lead 2: Medtronic Model Lead 2: 6947 Serial# Lead 2: [id number] Date Implanted Lead 2: 11/09/01 Lead #3 Trash Collector Truck Driver Lead 3: [employer] [place] Model Lead 3: 1258T Serial# Lead 3: [id number] Date Implanted Lead 3: 06/05/14 Position Lead [...] Perry 10/30/17 0925<Electr onically signed by Ollie Sanchez PA> Cosigner Signature: Date (if applicable) Ollie Sanchez CC: 15-Oct-2017 PT D/C Summary (1) Result: Comments: See Note; NOTES: [facility] Physical [facility] [address] [place] [address]. [address] [place] [address] Fax REHABILITATION SERVICES DISCHAR GE SUMMARY MR#: [id number] Acct: [id number] Name: MAYRA GHOSH Rep #: [id number] : 1940 77 From: Polo Bedolla DPT, OCS, CSCS Referring Dr.: CLARI Smith Status: REG R Insurance: [facility] - PT D/C Summary It has been my pleasure to treat MAYRA GHOSH under orders from Krystal Smith, CLARI-C, for the diagnosis of debility, intracranial hemmorhage [...] please feel free to call me at [phone]. Thank you for the referral of this patient. Sincerely, Polo Bedolla, DPT, OC <Electronically signed by Polo Bedolla DPT, OCS, CSCS> 10/15/17 0645 CC: CLARI Smith; Anabella Núñez MD EBG Signed 24-Sep-2017 D/C Summary- SP Result: Comments: See Note; NOTES: [facility] Speech Pathology [facility] [address] [place] [address] Fax REHABILITATION SERVICES DISCHAR SUMMARY MR#: [id number] Acct: [id number] Name: MAYRA GHOSH Rep #: [id number] : 1940 77 From: Darlin Wilson M.S., CCC-SITE TECHNICIAN Referring Dr.: CLARI Smith Status: REG RCR Insurance: [facility] Discharge Summary - Discharged: Discharge: Mayra Ghosh [...] CI <Electronically signed by Darlin Wilson M.S., KEN-SITE TECHNICIAN&#6 2; 09/24/17 3898 CC: CLARI Smith; Anabella Núñez MD MO Signed 21-Sep-2017 OT D/C Summary Result: Comments: See Note; NOTES: [facility] Occupational Therapy [facility] [address] [place] [address] Fax REHABILITATION SERVICES DIS CHARGE SUMMARY MR#: [id number] Acct: [id number] Name: MAYRA GHOSH Rep #: [id number] : 1940 77 From: Ev Rahman Referring Dr.: CLARI Smith Status: REG RCR Eval Date: Discharge Date : HP - OT D/C Summary It has been my pleasure to treat MAYRA GHOSH under orders from Krystal Smith, LORENZO, for the diagnosis of fall-related intracranial hemorrhage [...] MMT. Additional strength assessments are as follows: dye winch operator R 85, L 75; lateral R 15, [...] Resume Hobbies Goal:: Pt. to increase R dye winch operator strength by 15 -20 lbs to promote [...] please fell free to call me at [phone]. Thank you for the referral of this patient. Sincerely, Ev Rahman <Electronically signed by Ev Rahman > 09/21/17 1203 CC: CLARI Smith; Anabella Núñez MD KMB Signed 18-Sep-2017 Re-Evaluation - PT (1) Result: Comments: See Note; NOTES: [facility] Physical Therapy [facility] [address] [place] [address]. [address] [place], [place] [address] Fax REEVALUATION / MEDICARE RECERTI FICATION PHYSICAL THERAPY MR#: [id number] Acct: [id number] Name: MAYRA GHOSH Rep #: [id number] : 1940 77 From: Polo Bedolla DPT, OCS, CSCS Referring DrDusty: CLARI Smith Status: REG RCR Insura nce: [employer] TIM Smith, RAILWAYS ASSISTANT-C, It has been my pleasure to treat MAYRA GHOSH over the last 10 visits for debility, intracranial hemmorhage. Please see the progress note below for an update on th e physical therapy plan of care! Subjective: [...] not hesitat e to contact me at [phone] by phone or if you have questions or concerns regarding this new plan of care! Sincerely, Polo Bedolla, DPT, OC <Electronically signed by Pk Bedolla DPT, OCS, CSCS> 09/18/17 0922 CC: CLARI Smith; Anabella Núñez MD EBG Signed For Medicare only, by signing this I certify the plan of care. Physicians Signature Date 03-Sep-2017 OT General Evaluation Result: Comments: See Note; NOTES: [facility] Occupational Therapy [facility] [address] [place] [address] Fax REHABILITATION SERVICES INI TIAL EVALUATION MR#: [id number] Acct: [id number] Name: MAYRA GHOSH Rep #: [id number] : 1940 77 From: Ev Rahman Referring Dr.: CLARI Smith Status: REG R Insurance: [employer] [facility] [employer] Date: Patient's Visit Information MAYRA GHOSH is a 77 year old M, referred to Occupational Therapy by Krystal Smith, RAILWAYS ASSISTANT-C,, with a diagnosis of fall-related intracranial hemorrhage s/pcraniotomy. D ate of Evaluation: 08/27/17 Occupational Therapist: Ev Rahman - Subjective Subjective: Pt., Mayra, had fall july 03 and he was admitted into [facility]. present for evaluation and no johnathan that while in hospital he has multiple seizures. HE was transferred up to [place] in which craniotomy was preformed to help decrease pressure on brain as is was continuing to swell. While in [facility] after surgery he was intubated due [...] L 4/5 Wrist: R 3+/5, L 4/5 Marketing Operations Specialist: R 75, L 79 Lateral Pinch: R [...] - Goals Goal:: Pt. to increase R dye winch operator strength by 15-20 lbs to promote increased [...] d/c. - Rehabilitation General Assessment: Pt., Mayra Walsh, presents with R UE weakness. He is R hand dominant and notes using R hand for most all tasks. He will recieve OT services to promote increasing B UE strength, dye winch operator and FMC strength, finger dexterity, B hand [...] to be FAXED BACK to us at [phone] for Medicare purposes. Please let me know if there are questions or concerns regarding this plan of care. Physician Signature: Date: <Electronically signed by Ev Rahman > 09/03/17 1032 CC: CLARI Smith; Anabella Núñez MD KMB Signed For Medicare only, by signing this I certify the plan of care. Physicians Signature Date 29-Aug-2017 Inital Evaluation (1) - PT Result: Comments: See Note; NOTES: [facility] Physical Therapy [facility] [address] [place] [address]. [address] [place] [address] Fax REHABILITATION SERVICES INITIAL EVALUATION MR#: [id number] Acct: [id number] Name: MAYRA GHOSH Rep #: [id number] : 1940 77 From: Polo Bedolla DPT, OCS, CSCS Referring DrDusty: CLARI Smith Status: REG RCR Insurance: [facility] Patient's Visit Information MAYRA GHOSH is a 77 year old M referred to Physical Therapy by Krystal Smith NP-C with a diagnosis of debility, intracranial hemmorhage. Date of Evaluation: 08/27/17 [facility] Therapist: Polo Bedolla DPT, OC - Visit [...] June. Out of hospital 3 weeks ago stevan gibson to rehab in hospital and out one [...] to be FAXED BACK to us at [phone] for Medicare purposes. Please let me know [...] - SP Result: Comments: See Note; NOTES: [facility] Speech Pathology [facility] [address] [place] [address] Fax REHABILITATION SERVICES INITIAL EVALUATION MR#: [id number] Acct: [id number] Name: MAYRA GHOSH Rep #: [id number] : 1940 77 From: Tracy Hartman Referring DrDusty: CLARI Smith Status: REG R Insurance: [employer] Singh ry - History Date of Eval: 08/27/17 Medical Diagnosis (from RX): debility s/p craniotomy Previous speech therapy: Yes Results: Pt received ST services in [facility] for primarily word finding deficits. Oth er Relevant Medical History/Diagnoses/Surgery: Pt had a fall which resulted in a craniectomy relieve pressure. Pt was at [facility], then [facility], back to [facility], and back to [facility]. Medications related to this diagno sis: [place], [...] Impaired - Patient Instruction Patient Education: Hansa dominick Plan, Goals Person Taught: Patient, Significant Other Teaching Method: Discussion, Demonstration Response to teaching: Verbalize understanding, Has Prior Knowledge <Electronically signed by Tracy Hartman > 08/28/17 1316 CC: CLARI Smith; Anabella Núñez MD ELZBIETA Signed For Medicare only, by signing this I certify the plan of care. Physicians Signature Date 06-Jul-2017 12 Lead Electrocardiogram Result: Comments: See Note; NOTES: [facility] Cardiovascular Services [address] [place] [address] 12 Lead EKG 07/04/17 1650 MR#: [id number] Acct: [id number] Name: MAYRA GHOSH Rep # : [id number] : 1940 77 From: Bennie Ray MD [...] Abnormal ECG Confirmed by BENNIE RAY ([id number]), continuity editor YANG BARR ([id number]) on 07/06/2017 10:58:37 AM Referred By: ADONAY Confirmed By:BENNIE RAY 07/06/17 1058 Date Bennie Ray MD CC: Anabella Núñez MD Date Dictated: 07/04/171649 Date Transcribed: 07/04/171649 Credit Resolution Representative: Signed 04-Jul-2017 Emergency Department Summary Result: Comments: See Note; NOTES: [facility] Medical Records Department [address] [place] [address] Emergency Department Summary 07/04/171655 MR#: [id number] Acct: [id number] Name: MAYRA GHOSH Rep #: [id number] : 1940 77 From: Juan C Winston [...] a left subdural hemorrhage with midline shift. Laborat ory studies CT C-spine chest x-ray all pending. [...] transfer. Patient will be transf erred to [facility] and was accepted by the emergency [...] via helicopter. Treatment Plan: [] Disposition: Transfer [facility] Impression: Subdural hemorrhage with midline shift Seizures ED Disposition - Plan for ED Patient: Chief Complaint: i taryn Referrals: Anabella Núñez MD [Primary Care Provider] - What to do if you have Problems For any increased pain, shortness of breath, bleeding, nausea or vomiting, chest pain, or any unexpected pr oblems, contact your Primary Care Provider. Call [facility] ([phone]) or report to the closest Emergency Room. Call 911 if necessary. 07/04/17 1700 <Electronically signed by Juan C Winston MD> Date Juan C Winston MD Cosigner Signature (If Indicated): Date CC: Anabella Núñez MD 04-Jul-2017 Brain/Head without Contrast Result: Comments: See Note; NOTES: [facility] Imaging Services [address] [place] [address] Brain/Head without Contrast MR#: [id number] Acct: [id number] Name: MAYRA GHOSH Rep #: [id number] : 1940 M 77 From: Darrel Lopez MD PCP: Anabella Núñez MD Status: DEP ER Study: Brain/Head without Contrast Date of Exam: 07/04/17 Exam# [id number] Ordering Dr: Juan C Winston MD STUDY [...] Anabella Núñez MD; Juan C Winston MD Credit Resolution Representative: Signed 04-Jul-2017 Chest 1 View (Portable) Result: Comments: See Note; NOTES: [facility] Imaging Services [address] [place] [address] Chest 1 View (Portable) MR#: [id number] Acct: [id number] Name: MAYRA GHOSH Rep #: [id number] : 1940 M 77 From: Nadira Pedersen MD PCP: Anabella Núñez MD Status: REG ER Study: Chest 1 View (Portable) Date of Exam: 07/04/17 Exam# [id number] Ordering Dr: Juan C Winston MD STUDY: [...] Nadira Pedersen MD at 17:14 EDT Tel [phone], Service support , Fax CC: Anabella Núñez MD; Juan C Winston MD Credit Resolution Representative: Signed 04-Jul-2017 Spine Cervical without Contras Result: Comments: See Note; NOTES: [facility] Imaging Services [address] [place] [address] Spine Cervical without Contras MR#: [id number] Acct: [id number] Name: AMYRA GHOSH Rep #: [id number] : 1940 M 77 From: Nadira Pedersen MD PCP: Anabella Núñez MD Status: REG ER Study: Spine Cervical without Contras Date of Exam: 07/04/17 Exam# [id number] Ordering Dr: Juan C Winston MD STUDY: [...] Nadira Pedersen MD at 17:19 EDT Tel [phone], Service support , Fa x [phone] CC: Anabella Núñez MD; Juan C Winston MD Credit Resolution Representative: Signed 12-Jun-2017 Operative Report Result: Comments: See Note; NOTES: [facility] Medical Records Department [address] [place] [address] Operative Report 06/12/17 0804 MR#: [id number] Acct: [id number] Name: MAYRA GHOSH Rep #: [id number] : 1940 77 From: Pool Chávez MD PCP: Anabella Núñez MD Status: REG CLI Y Location: [place] [address] Report of Operation Date of Procedure: 06/12/17 [...] and Lateral Result: Comments: See Note; NOTES: [facility] Imaging Services [address] [place] [address] Chest PA and Lateral MR#: [id number] Acct: [id number] Name: MAYRA GHOSH Rep #: [id number] : 1940 [facility] From: Louis Leahy MD PCP: Anabella Núñez MD Status: REG CLI Study: Chest PA and Lateral Date of Exam: 06/06/17 Exam# [id number] Ordering Dr: Delisa Gordon DO STUDY: X-RAY [...] acute abnormality is seen. Electronically Signed: Louis Leahy MD at 13:58 EDT Tel [phone], Service support , CC: Anabella Núñez MD; Delisa Gordon DO Credit Resolution Representative: Signed 14-Mar-2017 CTA Head W/WO Contrast Result: Comments: See Note; NOTES: [facility] Imaging Services [address] [place] [address] Verdana 4d CTA Head W/WO Contrast MR#: [id number] Acct: [id number] Name: MAYRA GHOSH Rep #: [id number] : 1940 [facility] From: Kalli Lowery MD PCP: Anabella Núñez MD Status: REG ER Study: CTA Head W/WO Contrast Date of Exam: 03/14/17 Exam# [id number] Ordering Dr: Gal Glasgow MD [facility] DY: CTA OF THE BRAIN REASON FOR EXAM: Male, 77 years old. DIZZINESS SINCE 8AM HX-HTN,LA,PACER,CABG,CHF RADIATION DOSAGE (If Supplied By Facility): CTDIvol [...] There is no demonstrated aneurysm of the inupiat of Don[place]. There is no demonstrated abnormality of the visuali zed brain. CT/CTA Head W/WO Contrast IMPRESSION: No evidence of significant stenosis or occlusion of the intracranial arteries. See above. Elect ronically Signed: Kalli Lowery MD at 17:56 EDT Tel , Service support , CC: Anabella Núñez MD; Gal Glasgow MD Credit Resolution Representative: Signed 14-Mar-2017 CTA Neck W/WO Contrast Result: Comments: See Note; NOTES: [facility] Imaging Services [address] [place] [address] Verdana 4d CTA Neck W/WO Contrast MR#: [id number] Acct: [id number] Name: MAYRA GHOSH Rep #: [id number] : 1940 M 77 From: Kalli Lowery MD PCP: Anabella Núñez MD Status: REG ER Study: CTA Neck W/WO Contrast Date of Exam: 03/14/17 Exam# [id number] Ordering Dr: Gal Glasgow MD [facility] DY: CTA NECK WITH CONTRAST REASON FOR EXAM: Male, 77 years old. DIZZINESS SINCE 8AM HX-HTN,LA,PACER,CABG,CHF RADIATION DOSAGE (If Supplied By Facility): CTDIvol [...] CC: Anabella Núñez MD; Gal Glasgow MD Credit Resolution Representative: Signed 14-Mar-2017 Chest PA and Lateral Result: Comments: See Note; NOTES: [facility] Imaging Services [address] [place] [address] Verdana 4d Chest PA and Lateral MR#: [id number] Acct: [id number] Name: MAYRA GHOSH Rep #: [id number] : 1940 M 77 From: Kalli Lowery MD PCP: Anabella Núñez MD Status: REG ER Study: Chest PA and Lateral Date of Exam: 03/14/17 Exam# [id number] Ordering Dr: Gal Glasgow MD STUDY: X-RAY [...] CC: Anabella Núñez MD; Gal Glasgow MD Credit Resolution Representative: Signed 02-Nov-2016 Chest PA and Lateral Result: Comments: See Note; NOTES: [facility] Imaging Services [address] [place] [address] Verdana 4d Chest PA and Lateral MR#: [id number] Acct: [id number] Name: MAYRA GHOSH Rep #: [id number] : 1940 M 76 From: Tyshawn Gayle DO PCP: Anabella Núñez MD Status: REG CLI Study: Chest PA and Lateral Date of Exam: 11/02/16 Exam# [id number] Ordering Dr: Amando Hu MD STUDY: X-R [...] or interval change. Electronica lly Signed: Tyshawn RodríguezonDO at 12:16 EST Tel [phone], Service support [phone], CC: Anabella Núñez MD; Amando Hu MD Credit Resolution Representative: Signed 08-Sep-2016 Kidney and Bladder Result: Comments: See Note; NOTES: [facility] Imaging Services [address] [place] [address] Verdana 4d Kidney and Bladder MR#: [id number] Acct: [id number] Name: MAYRA GHOSH Rep #: [id number] : 1940 M 76 From: Louis Leahy MD PCP: Anabella Núñez MD Status: REG CLI Study: Kidney and Bladder Date of Exam: 09/08/16 Exam# [id number] Ordering Dr: Anabella Núñez MD STUDY: RENAL [...] ys and urinary bladder. Electronically Signed: Louis Leahy MD at 15:05 EST Tel [phone], Service support [phone], CC: Anabella Núñez MD Credit Resolution Representative: Signed 13-Sep-2015 Chest PA and Lateral Result: Comments: See Note; NOTES: [facility] Imaging Services [address] [place] [address] Verda 4d Chest PA and Lateral MR#: [id number] Acct: [id number] Name: Lula GHOSH Rep #: [id number] : 1940 M 75 From: Louis Leahy MD PCP: Anabella Núñez MD Status: REG CLI Study: Chest PA and Lateral Date of Exam: 09/13/15 Exam# [id number] Ordering Dr: Daria Lowe STUDY: X-RAY CHEST [...] is seen. Cardiomegaly. Electronical ly Signed: Louis Leahy MD at 12:55 EST Tel [phone], Service support [phone], RAD/Chest PA and Lateral IMPRESSION: No acute abnorma lity is seen. Cardiomegaly. Electronically Signed: Louis Leahy MD at 12:55 EST Tel [phone], Service support [phone], CC: Daria Lowe; Anabella Núñez MD Credit Resolution Representative: Signed 13-Sep-2015 Spirometry (61802) Comments: normal Result: 23-Apr-2014 Echocardiogram Complete Result: Comments: See Note; NOTES: [facility] Cardiovascular Services [address] [place] [address] Echo Complete 04/23/14 0954 MR#: [id number] Acct: [id number] Name: CORNELIA GHOSH Rep #: [id number] : 1940 74 From: Amando Hu MD Attending Dr: Amando Hu MD Status: REG CLI Ordering Dr: Amando Hu MD Date: 04/23/14 Location: [facility] Sex: M C Admitted: Procedure This [...] Mid- inferoseptal : Akinetic. Mid-anteroseptal : Akinetic. [place] : Hypokinetic. Right Ventricle Normal RV size. [...] max P.7 mmHg TR max P.4 m [facility] E/E' med: 36.0 Interpretation Summary The study [...] Physician: Anabella Núñez M.D. Performed By: Rajwinder Aleman RDCS : Anabella Núñez MD; Molly Hu MD Date Dictated: 04/23/1454 Date Transcribed: 04/23/142135 Credit Resolution Representative: Signed 21-Jan-2014 Chest PA and Lateral Result: Comments: See Note; NOTES: [facility] Imaging Services [address] [place] [address] Radiology Report MR#: [id number] Acct: [id number] Name: MAYRA GHOSH Rep #: [id number] : 1940 M 73 From: Louis Leahy MD PCP: Anabella Núñez MD Status: REG CLI Study: Chest PA and Lateral Date of Exam: 01/21/14 Exam# [id number] Ordering Dr: Anabella Núñez MD STUDY: X [...] costophrenic angles posteriorly. Hyperinflation. Electronically Signed: Daniella Leahy M.D. 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 Comments: 50 years ago Status: Active Tobacco use: Former smoker. Status: Inactive Smoking Status Name Dates Details Former smoker Vital Signs Date Test Result Details :12 Comments: BS 136 this am Temperature [...] Cuff Location: Left Arm; Cuff Size: Standard : Temperature 97.2 f Comments: Method: Oral Pulse [...] 0.00 cm Results Date Description Value Details 46-Mvf-220610:00 Basic Metabolic Profile (BMP) Comments: REDRAW. PREVIOUS SPECIMEN REJECTED DUE TOHEMOLYSIS. 10/16/18 Sonja Mcneal.'TROP' Serial specimen #1, #2, #3, or #4: [address] [place] [address] Tykprqupbd[address]50 [address] [place], [place], [address] GAP 10 (Normal) Range: 5-15 CO2 26.0 [...] A.D.A. criteria.Please note revised GLUCOSE reference range tcsatygrb06/02/2018. 08-Lzv-551491:00 Magnesium Comments: REDRAW. PREVIOUS SPECIMEN REJECTED DUE TOHEMOLYSIS. 10/16/18 1431 Cinthia Mcneal.'TROP' Serial specimen #1, #2, #3, or #4: [address] [place] [address] Kkilbdkwuf8499 [address] [place], [place], [id number](299) MG 2.1 mg/dL (Normal) Range: 1.6-2.6 30-Fjj-596191:00 Troponin-I Comments: REDRAW. PREVIOUS SPECIMEN REJECTED DUE TOHEMOLYSIS. 10/16/18 1431 Cinthia Mcneal.'TROP' Serial specimen #1, #2, #3, or #4: [address] [place] [address] Vydxmfybdg9470 [address] [place], [place], [address](443) TROPONIN-I 0.022 ng/mL (Normal) Comments: TROPONIN-I EXPECTED VALUES <0.045 Negative 0.045 - 0.590 Consistent with Cardiac Damage > OR = 0.600 Critical Value Not every elevated troponin is indicative of LA. T hesevalues should be used with clinical judgement in examiningthe patient's clinical picture for diagnosis. To establisha diagnosis of LA versus myocardial injury, there must be ademonstrated rise and/ or fall in the troponin values, inaddition to ischemic symptoms, EKG changes, new regionalwall motion abnormality, and/or angiographical evidence. PLEASE NOTE: REFERENCE RANGES EDITED 03/11/1816-Oct-201877-Jdq-070301:00 CBC W/Diff, Automated Comments: [facility] Rcojhtaumv3459 [address] [place], [place], [id number] Absolute Lymph 1.37 {X10_3/ul} (Normal) Range: 0.83-4.51 [...] 4.4-11.0 30-Sep-20187:13 Basic Metabolic Profile (BMP) Comments: [facility] Tknrjomioi6899 [address] [place], [place], [address] GAP 12 (Normal) Range: 5-15 CO2 22.0 [...] A.D.A. criteria.Please note revised GLUCOSE reference range iorjjlmbw77/02/2018. 30-Sep-20187:13 CBC W/Diff, Automated Comments: [facility] Oqxcfzgfig5913 [facility] Gabriel. [place], [place], [address] Absolute Lymph 1.40 {X10_3/ul} (Normal) Range: 0.83-4.51 [...] K/mm3 (Normal) Range: 4.4-11.0 :13 Troponin-I Comments: [address] [place], [place], [id number] TROPONIN-I 0.030 ng/mL (Normal) Comments: TROPONIN-I EXPECTED VALUES <0.045 Negative 0.045 - 0.590 Consistent with Cardiac Damage > OR = 0.600 Critical Value Not every elevated troponin is indicative of LA. T hesevalues should be used with clinical judgement in examiningthe patient's clinical picture for diagnosis. To establisha diagnosis of LA versus myocardial injury, there must be ademonstrated rise and/ or fall in the troponin values, inaddition to ischemic symptoms, EKG changes, new regionalwall motion abnormality, and/or angiographical evidence. PLEASE NOTE: REFERENCE RANGES EDITED 18:00 Urinalysis, Complete Comments: Order Date: 09/30/18Has pt arrived? YHow was Urine Obtained? EQUIPMENT MAINTENANCE TECHNICIAN TO SPECIFYMer[facility] Vbqoyycmsy5206 [place], [address] MUCUS, URINE 0 SEEN {/hpf} (Normal) BACTERIA [...] (Normal) CLARITY Clear (Normal) COLOR Yellow (Normal) 90-Rxs-00374:40 CBC W/Diff, Automated Comments: [facility] Cfmuacnvxi4359 [address] [place], [place], [address] Absolute Lymph 1.74 {X10_3/ul} (Normal) Range: 0.83-4.51 [...] 4.6-6.2 WBC 7.6 K/mm3 (Normal) Range: 4.4-11.0 :40 Comprehensive Metabolic Profil Comments: [facility] Ujybbuhjaa7[address] [place], [address] GAP 13 (Normal) Range: 5-15 CO2 27.0 [...] A.D.A. criteria.Please note revised GLUCOSE reference range ibhomldct88/02/2018. 03-Nzu-48502:40 Lipase Comments: [facility] Kqxebawcll3[address] [place], [place], [address] LIPASE 114 U/L (Normal) Range: 73-393 20-Hoc-195728:18 BNP,B-Type NATRIURETIC PEPTIDE Comments: [facility] Ntxdc[address] [facility] [address] [place], [place], [phone] B-TYPE JUSTIN PEP 734.1 pg/mL (Abnormal) Range: 0-100 64-Zmy-530429:18 CBC-Complete Blood Cnt No Diff Comments: [facility] Jiqovjebud4676 [facility] [address]rie[address]. [place], [place], [address] MPV 10.4 fL (Normal) Range: 6.2-12.0 PLT [...] 4.6-6.2 WBC 7.2 K/mm3 (Normal) Range: 4.4-11.0 19-Exi-410325:18 Comprehensive Metabolic Profil Comments: 'TROP' Serial specimen #1, #2, #3, or #4: [facility] Krteuntdao16[address] [place], [place], [address] GAP 10 (Normal) Range: 5-15 CO2 29.0 [...] A.D.A. criteria.Please note revised GLUCOSE reference range ywohtlpwf85/02/2018. 51-Aat-902378:18 KEPPRA (LEVETIRACETAM) Comments: [facility] (refer to report for specific site)refer to report for address and phone number TANNER Comments: TEST RESULT LIMITSLevetiracetam (Keppra), SLevetiracetam, S 29.6 ug/mL 10.0 - 40.0 TESTING PERFO (Normal) [facility]MED AT [facility]. ORIGINAL REPORT ON FILE IN LAB CONTAINS ADDITIONAL TEST SITE INFORMATION. 48-Rwe-188431:18 Thyroid Stim Hormone (TSH) Comments: 'TROP' Serial specimen #1, #2, #3, or #4: [address] [place] [address] Errpgwcfcb8996 [address] [place], [place], [address] TSH 2.73 {uIU/mL} (Normal) Range: 0.358-3.74 97-Sbq-445217:18 Troponin-I Comments: 'TROP' Serial specimen #1, #2, #3, or #4: [address] [place] [address] Cjjkiijuyu0601 [address]. [place], [place], [address] TROPONIN-I 0.027 ng/mL (Normal) Comments: TROPONIN-I EXPECTED VALUES <0.045 Negative 0.045 - 0.590 Consistent with Cardiac Damage > OR = 0.600 Critical Value Not every elevated troponin is indicative of LA. T hesevalues should be used with clinical judgement in examiningthe patient's clinical picture for diagnosis. To establisha diagnosis of LA versus myocardial injury, there must be ademonstrated rise and/ or fall in the troponin values, inaddition to ischemic symptoms, EKG changes, new regionalwall motion abnormality, and/or angiographical evidence. PLEASE NOTE: REFERENCE RANGES EDITED 03/11/1810-Sep-201869-Jge-999800:59 Metabolic Panel, Basic Comments: PATIENT NOT FASTINGPERFORMED BY: [facility]CoCentraState Healthcare SystemGsythf1051 [facility] [id number] (31412) Calcium 9.0 mg/dL (Normal) Range: 8.6-10.2 Carbon [...] 8-27 Glucose 177 mg/dL (Abnormal) Range: 65-99 26-Yqw-229656:06 Lipid Profile Comments: [facility] Fmstnrkslt4[address] [place], [place], [address] VLDL 20 mg/dL (Normal) Range: 5-40 LDL [...] 200-240 mg/dL Borderline >240 mg/dL High Risk 30-Uic-667533:06 Liver Profile Comments: [facility] Rlmcwwjpob55[address] [place], [address] D BILI 0.35 mg/dL (Abnormal) Range: 0.00-0.30 T BILI 0.90 mg/dL (Normal) Range: 0.20-1.00 ALT 26 U/L (Normal) Range: 16-61 ALK P 158 U/L (Abnormal) Range: 45-117 AST 27 U/L (Normal) Range: 15-37 GLOB 4.8 g/dL (Abnormal) Range: 2.2-4.2 ALB 3.4 g/dL (Normal) Range: 3.2-5.0 T PROT 8.2 g/dL (Normal) Range: 6.4-8.2 09-Ypx-15595:25 Tanner (31404) Comments: PATIENT WAS FASTINGPERFORMED BY: CB [facility] Iazwaa4873 [facility] [id number] BY: [facility] [address] [id number] Levetiracetam, S 41.3 ug/mL (Abnormal) Range: 10.0-40.0 31-Xdu-97450:25 METABOLIC PANEL, BASIC Comments: PATIENT WAS FASTINGPERFORMED BY: [place] 2304870 [facility] [id number] BY: [facility]bird[facility]1447 [facility] [id number] (50258) Calcium 9.0 mg/dL (Normal) Range: 8.6-10.2 Carbon [...] 8-27 Glucose 171 mg/dL (Abnormal) Range: 65-99 81-Mud-21547:25 Platelet Count, Citrated Comments: PATIENT WAS FASTINGPERFORMED BY: [facility] [id number] BY: [facility]bird[facility]1447 [facility] [id number] (05722) Plt Count, Citrated Bld 119 {X10E3/uL} (Abnormal) Range: 150-379 02-Ada-412203:54 HGB A1C (44149) Comments: PATIENT NOT FASTINGPERFORMED BY: [facility] [id number] Hemoglobin A1c 9.0 % (Abnormal) Range: 4.8-5.6 Comments: . Prediabetes: 5.7 - 6.4 Diabetes: >6.4 Glycemic control for adults with diabetes: <7.0 46-Rtb-960256:54 T4, FREE (THYROXINE) (22743) Comments: PATIENT NOT FASTINGPERFORMED BY: [facility] [id number] T4,Free(Direct) 1.15 ng/dL (Normal) Range: 0.82-1.77 99-Txw-072864:54 TSH (64822) Comments: PATIENT NOT FASTINGPERFORMED BY: [facility] Ivibhx3003 [facility] [id number]; appt 08/19 TSH 2.130 {uIU/mL} (Normal) Range: 0.450-4.500 14-Wwo-399879:20 Rapid Strep Test, Office (98151) Rapid Strep Test, Office Negative (Normal) 86-Ktx-884310:46 Metabolic Panel, Basic Comments: PATIENT NOT FASTINGPERFORMED BY: [facility] Gokxhm0957 [facility] [id number]; fu today DB (31501) Calcium 9.1 mg/dL (Normal) Range: 8.6-10.2 Carbon [...] 8-27 Glucose 227 mg/dL (Abnormal) Range: 65-99 4-Mog-357484:53 Basic Metabolic Profile (BMP) Comments: [facility] Ucqgjsxsmt5337 [place], [address] GAP 12 (Normal) Range: 5-15 CO2 27.0 [...] A.D.A. criteria.Please note revised GLUCOSE reference range teayipjif69/02/2018. 9-Fht-049576:53 Magnesium Comments: [facility] Emyzopgdgn4634 [place], [address] MG 1.8 mg/dL (Normal) Range: 1.6-2.6 63-Jld-854643:10 Basic Metabolic Panel (8) Comments: PATIENT NOT FASTINGPERFORMED BY: Secure-2470 [facility] [id number] BY: LabLiveRamp[address] [id number] Calcium 9.3 mg/dL (Normal) Range: 8.6-10.2 Carbon [...] 8-27 Glucose 325 mg/dL (Abnormal) Range: 65-99 50-Gfv-843564:10 Levetiracetam (Keppra), S Comments: PATIENT NOT FASTINGPERFORMED BY: [employer] [facility] [id number] BY: [address] [id number] Levetiracetam, S 66.3 ug/mL (Abnormal) Range: 10.0-40.0 :10 Platelet Count on Comments: PATIENT NOT FASTINGPERFORMED BY: [address] [id number] BY: [address] [id number] Citrated Bld Plt Count, Citrated 85 {X10E3/uL} Range: 150-379 Bld (Abnormal) Comments: Platelet count verified by examination of peripheral blood smear. FDP, Plasma 5 ug/mL (Abnormal) Comments: PATIENT NOT FASTINGPERFORMED BY: [place] [id number] [facility] [id number] BY: [address] [id number] :49 LDH 220 [iU]/L (Normal) Comments: PATIENT NOT FASTINGPERFORMED BY: [place] 3672570 [facility] [id number] BY: [address] [id number] :49 Range: 121-224 :49 Methylmalonic Acid, Serum Comments: PATIENT NOT FASTINGPERFORMED BY: [address] [id number] BY: [address] [id number] Disclaimer: SPR (Normal) Comments: This test was developed and its performance characteristicsdetermined by [facility]. It has not been cleared or approvedby the Food and Drug Administration. Methylmalonic Acid, Serum 195 nmol/L (Normal) Range: 0-378 :49 Platelet Count on Comments: PATIENT NOT FASTINGPERFORMED BY: [address] [id number] BY: [facility] [id number] Citrated Bld Plt Count, Citrated 108 {X10E3/uL} Range: 150-379 Bld (Abnormal) Vitamin B12 780 pg/mL (Normal) Comments: PATIENT NOT FASTINGPERFORMED BY: [facility] Bozite2663 [facility] [id number] BY: [facility] MedicalRachel [place] 668077 [facility] [id number] :49 Range: 232-1245 9-Ebp-710101:49 Renal function Panel Comments: standing order q 3 months; PATIENT NOT FASTINGPERFORMED BY: Secure-2470 [facility] [id number] BY: [facility] [id number] (59319) Albumin 4.3 g/dL (Normal) Range: 3.5-4.8 Phosphorus [...] 8-27 Glucose 244 mg/dL (Abnormal) Range: 65-99 06-Egl-420103:48 Urinalysis, Office (21277) UA - LEUKOCYTE ESTERASE Trace (Normal) UA - NITRITE Negative (Normal) URINE UROBILINGN CASPER TIMED 2 mg/dL (Normal) UA - PROTEIN Trace mg/dL (Normal) UA - PH 6 (Abnormal) UA - BLOOD Negative (Normal) UA - SPECIFIC GRAVITY 1.020 (Normal) UA - KETONES Negative mg/dL (Normal) UA - BILIRUBIN Negative (Normal) UA - GLUCOSE Negative (Normal) :47 CBC W/Diff, Automated Comments: Order Date: 04/25/18Order Info: 0184-1 - [facility] Iforqgqdbr8[address] [place], [place], [address] Absolute Lymph 1.07 {X10_3/ul} (Normal) Range: 0.83-4.51 [...] 4.6-6.2 WBC 7.9 K/mm3 (Normal) Range: 4.4-11.0 14-Sja-241207:47 Renal Profile Comments: Order Date: 04/25/18Order Info: 0790- 1 - RENALOrder Info: 51090-8 - TROPOrder Info: - MGOrder Info: 3015-12 - TSHOrder Info: 3024-04 - T4F'TROP' Serial specimen #1, #2, #3, or #4: [address] [place] [address] [address] [place], [place], [address] CO2 27.0 mmol/L (Normal) Range: 21.0-32.0 CL [...] A.D.A. criteria.Please note revised GLUCOSE reference range okwlifnfg22/02/2018. 23-Azg-572647:47 Thyroid Stim Hormone (TSH) Comments: Order Date: 04/25/18Order Info: 0790-1 - RENALOrder Info: 85081-0 - TROPOrder Info: - MGOrder Info: 3015-12 - TSHOrder Info: 3024-04 - T4F'TROP' Serial specimen #1, #2, #3, or #4: [address] [place] [address] [address] [place], [place], [address] TSH 2.08 {uIU/mL} (Normal) Range: 0.358-3.74 45-Rru-125608:47 Troponin-I Comments: Order Date: 04/25/18Order Info: 0790-1 - RENALOrder Info: 59420-4 - TROPOrder Info: 63153-8 - MGOrder Info: 3 - TSHOrder Info: 3024-7 - T4F'TROP' Serial specimen #1, #2, #3, or #4: [address] [place] [address] O[address]hw02[address] [place], [place], 1969[address](169) TROPONIN-I < 0.015 ng/mL (Normal) Comments: TROPONIN-I EXPECTED VALUES <0.045 Negative 0.045 - 0.590 Consistent with Cardiac Damage > OR = 0.600 Critical Value Not every elevated troponin is indicative of LA. T hesevalues should be used with clinical judgement in examiningthe patient's clinical picture for diagnosis. To establisha diagnosis of LA versus myocardial injury, there must be ademonstrated rise and/ or fall in the troponin values, inaddition to ischemic symptoms, EKG changes, new regionalwall motion abnormality, and/or angiographical evidence. PLEASE NOTE: REFERENCE RANGES EDITED 03/11/1825-Apr-201844-Zxa-869942:47 T4, FREE (THYROXINE) (94984) Comments: Order Date: 04/25/18Order Info: 90 - RENALOrder Info: 65873-6 - TROPOrder Info: 10544-0 - MGOrder Info: 3 - TSHOrder Info: 3024-7 - T4F'TROP' Serial specimen #1, #2, #3, or #4: [address] [place] [address] [place], [place], [address] T4 FREE DIRECT 1.08 ng/dL (Normal) Range: 0.76-1.46 :47 Magnesium (24395) Comments: Order Date: 04/25/18Order Info: 0790- 1 - RENALOrder Info: 64230-1 - TROPOrder Info: 55633-6 - MGOrder Info: 63 - TSHOrder Info: 3024-7 - T4F'TROP' Serial specimen #1, #2, #3, or #4: [address] [place] [address] [address]vvzsq[address]bf2898 [place], [address] MG 1.9 mg/dL (Normal) Range: 1.6-2.6 13-Nsg-595360:00 CBC WITH MANUAL DIFF (52670) Comments: standing order q 3 months; PATIENT NOT FASTINGPERFORMED BY: [facility] Hospitalalex [place] [id number] Immature Grans (Abs) 0.0 {x10E3/uL} (Normal) Range: [...] 4.14-5.80 WBC 9.0 {x10E3/uL} (Normal) Range: 3.4-10.8 29-Zno-100047:00 MAGNESIUM (32165) Comments: standing order q 3 months; PATIENT NOT FASTINGPERFORMED BY: [employer] CoresonicCarepartners Rehabilitation Hospitalin [place] [id number] Magnesium 1.7 mg/dL (Normal) Range: 1.6-2.3 44-Wvi-839429:00 PARATHORMONE (99026) Comments: standing order q 3 months; PATIENT NOT FASTINGPERFORMED BY: [facility] Afxufo9894 Sweeney RoadDublin [place] [id number] PTH, Intact 73 pg/mL (Abnormal) Range: 15-65 64-Rtt-263881:00 Renal function Panel (00239) Comments: standing order q 3 months; PATIENT NOT FASTINGPERFORMED BY: [facility] Xsbzgb4548 [address] [facility] Center[facility] [place] [id number] Albumin 4.1 g/dL (Normal) Range: 3.5-4.8 Phosphorus [...] 8-27 Glucose 276 mg/dL (Abnormal) Range: 65-99 96-Wyn-761377:29 Renal function Panel (34209) Comments: PATIENT WAS FASTINGPERFORMED BY: [facility] Wivkgn0692 [address] [facility]in [place] [id number]; fu 6-28 Albumin 4.4 g/dL (Normal) Range: 3.5-4.8 Phosphorus [...] 8-27 Glucose 198 mg/dL (Abnormal) Range: 65-99 :18 HgA1C , Office (35684) HgA1C , Office 7.0 % (Normal) Range: 4.6 - 7.1 :46 Basic Metabolic Profile Comments: Comments: Renal InsufficiencyComments: [facility]Gen[facility] Abkyyfbtlo5761 [place], [place], [address] (EJL) GAP 13 (Normal) Range: 5-15 CO2 24.0 [...] A.D.A. criteria.Please note revised GLUCOSE reference range mpjwmdsdy74/02/2018. :46 Lipid Profile Comments: Comments: Renal InsufficiencyComments: [facility] Pgdfhawqpn9[address] [place], [place], [address] VLDL 41 mg/dL (Abnormal) Range: 5-40 LDL [...] Liver Profile Comments: Comments: Renal InsufficiencyComments: Renal InsufficiencyMercy Health [facility] [address] [place], [place], [address] D BILI 0.16 mg/dL (Normal) Range: 0.00-0.30 T BILI 0.50 mg/dL (Normal) Range: 0.20-1.00 ALT 25 U/L (Normal) Range: 16-61 ALK P 104 U/L (Normal) Range: 45-117 AST 29 U/L (Normal) Range: 15-37 GLOB 4.0 g/dL (Normal) Range: 2.2-4.2 ALB 3.5 g/dL (Normal) Range: 3.2-5.0 T PROT 7.5 g/dL (Normal) Range: 6.4-8.2 7-Dhs-095993:37 Magnesium (80960) Comments: PATIENT NOT FASTINGPERFORMED BY: SLAVA [employer] Aureliant [facility] [id number] Magnesium 2.1 mg/dL (Normal) Range: 1.6-2.3 6-Aag-465613:37 Metabolic Panel, Basic (47880) Comments: PATIENT NOT FASTINGPERFORMED BY: SLAVA SurfingbirdCorp [facility]izoomCarepartners Rehabilitation Hospitalin [place] [id number] Calcium 9.0 mg/dL (Normal) Range: 8.6-10.2 Carbon [...] 8-27 Glucose 284 mg/dL (Abnormal) Range: 65-99 91-Hgi-331718:57 Bedside Glucose Comments: [facility] LaboratoryPoint of Vzlt[address] [place] [address] BEDSIDE GLU 381 mg/dL (Abnormal) Range: 70-110 Comments: MANAGEMENT OF PATIENT CARE PER NURSING PROTOCOL 81-Uff-953310:50 Acetone Serum Comments: [facility] [address] [place], [address] ACETONE SERUM NEGATIVE (Normal) 41-Oqj-581027:50 Basic Metabolic Profile (BMP) Comments: 'TROP' Serial specimen #1, #2, #3, or #4: [facility] W[address]kmkhvaak[address] [place], [address] GAP 9 (Normal) Range: 5-15 [...] A.D.A. criteria.Please note revised GLUCOSE reference range kmaxjtyxq32/02/2018. 86-Xwl-821965:50 BNP,B-Type NATRIURETIC PEPTIDE Comments: [facility] [address] [place], [place], [address] B-TYPE JUSTIN PEP 386.1 pg/mL (Abnormal) Range: 0-100 60-Vqy-013295:50 CBC W/Diff, Automated Comments: [facility] [address] [place], [place], [address] Absolute Lymph 1.11 {X10_3/ul} (Normal) Range: 0.83-4.51 [...] 4.6-6.2 WBC 9.7 K/mm3 (Normal) Range: 4.4-11.0 42-Lmv-262462:50 Troponin-I Comments: 'TROP' Serial specimen #1, #2, #3, or #4: [address] [place] [address] [address] [place], [address] TROPONIN-I 0.03 ng/mL (Normal) Comments: TROPONIN-I EXPECTED VALUES <0.05 NEGATIVE 0.06 - 0.59 AT RISK OF LA > OR = 0.60 SUGGEST LA 34-Irf-844856:51 Renal Profile Comments: Order Date: 01/18/18Order Info: [id number] - RENALOrder Info: [id number] - TROP'TROP' Serial specimen #1, #2, #3, or #4: [address] [place] [address] Wwoqkknkim3767 [facility] [place], [place], [phone] CO2 29.0 mmol/L (Normal) Range: 21.0-32.0 CL [...] A.D.A. criteria.Please note revised GLUCOSE reference range znxncpjop43/02/2018. 54-Ryv-562677:51 Troponin-I Comments: Order Date: 01/18/18Order Info: [id number] - RENALOrder Info: [id number] - TROP'TROP' Serial specimen #1, #2, #3, or #4: [facility] Arghjjiotf[address] [place], [place], [phone] TROPONIN-I 0.02 ng/mL (Normal) Comments: TROPONIN-I EXPECTED VALUES <0.05 NEGATIVE 0.06 - 0.59 AT RISK OF LA > OR = 0.60 SUGGEST LA 12-Pna-968165:16 HgA1C , Office (90944) HgA1C , Office 7.7 % (Abnormal) Range: 4.6 - 7.1 97-Exp-110412:47 Basic Metabolic Profile (BMP) Comments: CALL RESULTS TO [phone] Health [facility] [address]lp[address] [place], [place], [address] GAP 8 (Normal) Range: 5-15 CO2 30.0 [...] 200 mg/dLsuggests DIABETES MELLITUS per A.D.A. criteria. 09-Nkh-229657:47 BNP,B-Type NATRIURETIC PEPTIDE Comments: CALL RESULTS TO [phone] [address]emglxn[address] [place], [address] B-TYPE JUSTIN PEP 580.2 pg/mL (Abnormal) Range: 0-100 22-Nbx-799988:47 CBC W/Diff, Automated Comments: CALL RESULTS TO [phone] Health [facility] [address]xgusf[address] [place], [address] Absolute Lymph 0.67 {X10_3/ul} (Abnormal) [...] 4.6-6.2 WBC 5.6 K/mm3 (Normal) Range: 4.4-11.0 94-Jqq-509229:47 Thyroid Stim Hormone (TSH) Comments: CALL RESULTS TO [phone] Health [facility] [address]jgdicmdc[address] [place], [place], [address] TSH 2.08 {uIU/mL} (Normal) Range: 0.358-3.74 72-Cxy-10406:51 CBC, Platelets & Auto Diff Comments: PATIENT WAS FASTINGPERFORMED BY: [facility] Iuepdc2951 [facility] [id number] (77665) Immature Grans (Abs) 0.0 {x10E3/uL} (Normal) Range: [...] 4.14-5.80 WBC 8.6 {x10E3/uL} (Normal) Range: 3.4-10.8 68-Ahw-90482:51 Metabolic Panel, Comprehensive Comments: PATIENT WAS FASTINGPERFORMED BY: LabCoCentraState Healthcare SystemItepfe5964 [facility] [id number] (53890) ALT (SGPT) 16 [iU]/L (Normal) Range: 0-44 [...] 8-27 Glucose 122 mg/dL (Abnormal) Range: 65-99 :51 TSH (18311) Comments: PATIENT WAS FASTINGPERFORMED BY: [facility] Wfcrvl1104 [facility] HospitalDublin [place] [id number] TSH 5.070 {uIU/mL} (Abnormal) Range: 0.450-4.500 :51 CALCIFIDIOL (23126) VIT D 25 Comments: PATIENT WAS FASTINGPERFORMED BY: [facility] Utavrl1830 [facility] Centerblin [place] [id number] Vitamin D, 25-Hydroxy 27.8 ng/mL (Abnormal) Range: 30.0-100.0 Comments: Vitamin D deficiency has been defined by the [place] of[facility] Medical Centercine and an Endocrine Society practice guideline as alevel of serum 25-OH vitamin D less than 20 ng/mL (1,2).The Endocrine Society went on to further define vitamin Dinsufficiency as a level between 21 and 29 ng/mL (2).1. IOM ([place] of Medicine). 2010. Dietary reference intakes for calcium and D. [place]: The National Academies Press.2. Yanna MF, Maral NC, Xander EDGAR, et al. Evaluation, treatment, and prevention of vitamin D deficiency: an Endocrine Society clinical practice guideline. JCEM. 2010; 96(7):1911-30. :51 Magnesium (21707) Comments: PATIENT WAS FASTINGPERFORMED BY: [facility] Yktmfy8914 [facility]in [place] [id number] Magnesium 1.9 mg/dL (Normal) Range: 1.6-2.3 6-Nac-749317:43 HgA1C , Office (79421) HgA1C , Office 7.3 % (Abnormal) Range: 4.6 - 7.1 :27 MICROALBUMIN: CREATININE Comments: PATIENT NOT FASTINGPERFORMED BY: [facility] Wrvjkd0099 [facility] Centerbl[facility] [place] [id number] Information: NURSE DRAW RATIO (53851) AND (26345) Microalb/Creat Ratio 89.4 {mg/g_creat} (Abnormal) Range: 0.0-30.0 Microalbumin, Urine 142.2 ug/mL (Normal) Creatinine, Urine 159.1 mg/dL (Normal) :27 PARATHORMONE (23803) Comments: PATIENT NOT FASTINGPERFORMED BY: [employer]6370 [facility] [id number] PTH, Intact 53 pg/mL (Normal) Range: 15-65 31-Rvn-706203:15 TSH (55705) Comments: PATIENT NOT FASTINGPERFORMED BY: Six36370 [facility] [id number] TSH 4.310 {uIU/mL} (Normal) Range: 0.450-4.500 99-Xqj-826587:15 METABOLIC PANEL, COMPREHENSIVE Comments: PATIENT NOT FASTINGPERFORMED BY: Secure-2470 [facility] [id number] (89641) ALT (SGPT) 17 [iU]/L (Normal) Range: 0-44 [...] Glucose, Serum 231 mg/dL (Abnormal) Range: 65-99 08-Ndg-148773:15 CBC with auto diff (44828) Comments: PATIENT NOT FASTINGPERFORMED BY: [facility] Yymynb2886 [facility] [id number] Immature Grans (Abs) 0.0 {x10E3/uL} (Normal) Range: [...] 4.14-5.80 WBC 7.7 {x10E3/uL} (Normal) Range: 3.4-10.8 42-Pth-152476:15 CALCIFIDIOL (24404) VIT D 25 Comments: PATIENT NOT FASTINGPERFORMED BY: Sur[facility]birdHenry [facility] Hospital[address] [place] [address] [id number] Vitamin D, 25-Hydroxy 28.8 ng/mL (Abnormal) Range: 30.0-100.0 Comments: Vitamin D deficiency has been defined by the [place] ofMedicine and an Endocrine Society practice guideline as alevel of serum 25-OH vitamin D less than 20 ng/mL (1,2).The Endocrine Society went on to further define vitamin Dinsufficiency as a level between 21 and 29 ng/mL (2).1. IOM ([place] of Medicine). 2010. Dietary reference intakes for calcium and D. [place]: The National AcademIframe Apps Press.2. Yanna MF, Maral CALDERON, Xander EDGAR, et al. Evaluation, treatment, and prevention of vitamin D deficiency: an Endocrine Society clinical practice guideline. JCEM. 2010; 96(7):1911-30. :34 Blood Glucose , Office (35433) Blood Glucose , Office 221 (Normal) :34 HgA1C , Office (82167) HgA1C , Office 6.3 % (Normal) Range: 4.6 - 7.1 :10 CBC W/Diff, Automated Comments: [facility] [address] [place], [place], [address] Absolute Lymph 1.60 {X10_3/ul} (Normal) Range: 0.83-4.51 [...] 4.6-6.2 WBC 7.5 K/mm3 (Normal) Range: 4.4-11.0 0-Xsb-248388:10 Comprehensive Metabolic Profil Comments: [facility] [address]efs[address] [place], [place], [address] GAP 8 (Normal) Range: 5-15 CO2 29.0 [...] 200 mg/dLsuggests DIABETES MELLITUS per A.D.A. criteria. 2-Eao-863332:10 Prothrombin Time w/INR Comments: [facility] [address] [place], [address] INR 1.0 (Normal) PROTIME 13.1 s (Normal) Range: 11.7-14.9 :09 Bedside Glucose Comments: [facility] LaboratoryPoint of Loay[address] [place], [place] [address] BEDSIDE GLU 249 mg/dL (Abnormal) Range: 70-110 Comments: MANAGEMENT OF PATIENT CARE PER NURSING PROTOCOL :55 Magnesium (11236) Comments: PATIENT WAS FASTINGPERFORMED BY: Imperator [facility] [id number] BY: MICMALI Xrlbwa1709 [facility] [id number] Magnesium, Serum 2.1 mg/dL (Normal) Range: 1.6-2.3 61-Tqp-28879:55 METABOLIC PANEL, Comments: PATIENT WAS FASTINGPERFORMED BY: Imperator [facility] [id number] BY: Ravgenlin6370 [facility] [id number] COMPREHENSIVE (93198) ALT (SGPT) 13 [iU]/L (Normal) Range: 0-44 [...] Glucose, Serum 120 mg/dL (Abnormal) Range: 65-99 54-Rrg-91859:55 LIPOPROTEIN, BLD, BY NMR Comments: PATIENT WAS FASTINGPERFORMED BY: BN [facility] [address] [id number] BY: CB [facility] Crqgcw3322 [facility] [id number] (30478) LP-IR Score <25 (Normal) Comments: INSULIN RESISTANCE MARKER <--Insulin Sensitive Insulin Resistant--> Percentile in Reference PopulationInsulin Resistance ScoreLP-IR Score Low 25th 50th 75th High <27 27 45 63 >63LP-IR Score is inaccurate if patient is non-fasting. .The LP-IR score is a laboratory developed i [facility] that has beenassociated with insulin resistance [...] 1600 - 2000 Very High > 2000 62-Kic-06378:55 CALCIFIDIOL (49928) VIT D Comments: PATIENT WAS FASTINGPERFORMED BY: Argyle Social[address] [id number] BY: Secure-2470 [facility]eyC[facility] County Memorial HospitalBiotie TherapiesCritical access hospital [id number] Vitamin D, 25-Hydroxy 35.2 ng/mL (Normal) Range: 30.0-100.0 Comments: Vitamin D deficiency has been defined by the [place] of[facility] Medical Centercine and an Endocrine Society practice guideline as alevel of serum 25-OH vitamin D less than 20 ng/mL (1,2).The Endocrine Society went on to further define vitamin Dinsufficiency as a level between 21 and 29 ng/mL (2).1. IOM ([place] of Medicine). 2010. Dietary reference intakes for calcium and D. [place]: The National Academies Press.2. Yanna MF, Maral CALDERON, Xander EDGAR, et al. Evaluation, treatment, and prevention of vitamin D deficiency: an Endocrine Society clinical practice guideline. JCEM. 2010; 96(7):1911-30. 85-Xez-10028:55 PSA (Prostate Specific Comments: PATIENT WAS FASTINGPERFORMED BY: Argyle Socialton1447 [facility] [id number] BY: [employer]6370 [facility] [id number] Antigen), Screening (23443) Prostate Specific Ag, 1.2 ng/mL (Normal) Range: 0.0-4.0 Serum Comments: Erik ECLIA methodology. .According to the [place] U[employer] Association, Serum PSA shoulddecrease and remain at undetectable levels after radicalprostatectomy. The AUA defines biochemical recurrence as an initialPSA value 0.2 ng/mL or greater followed by a subsequent confirmatoryPSA value 0.2 ng/mL or greater.Values obtained with d ifferent assay methods or kits cannot be usedinterchangeably. Results cannot be interpreted as absolute evidenceof the presence or absence of malignant disease. 35-May-586213:38 Blood Glucose , Office (10191) Blood Glucose , Office 160 (Normal) 35-Yyp-499666:00 CBC WITH MANUAL DIFF Comments: PATIENT NOT FASTINGPERFORMED BY: CB [facility] Dujrfz2110 [facility] [id number] BY: BN [facility] Gbbgrsmvjg3905 [facility] [id number] Inf ormation: NURSE DRAW (81030) Immature Grans (Abs) 0.0 {x10E3/uL} (Normal) Range: [...] 4.14-5.80 WBC 5.9 {x10E3/uL} (Normal) Range: 3.4-10.8 08-Vcn-638354:00 Vitamin B-12 Comments: PATIENT NOT FASTINGPERFORMED BY: [employer] Ienlwn9216 [facility] [id number] BY: [facility] [id number] (cyanocobalamin) (04312) Vitamin B12 529 pg/mL (Normal) Range: 211-946 52-Jyo-250588:00 Methymalonic Acid, Serum Comments: PATIENT NOT FASTINGPERFORMED BY: Secure-2470 [facility] [id number] BY: Netzoptiker Homiznbjnf[address] [id number] (97573) Methylmalonic Acid, Serum 284 nmol/L (Normal) Range: 0-378 99-Hgo-082299:59 ANCA-C (ANTI NEUTROPHIL Comments: copy to Dr. [phone] all these now; PATIENT WAS FASTINGPERFORMED BY: Xintu Shuju [address] [id number] BY: Ravgenlin6370 [facility] [id number] CYTOPLASMIC ANTIBODY) Atypical pANCA <1:20 {titer} Comments: [...] follow up testing ofpositive sera with both MD-3 and MPO-ANCA enzyme immunoassays. Asmany as 5% serum samp les are positive only by EIA.Ref. AM J Clin Pathol 1999;111:507-513. Cytoplasmic (C-ANCA) <1:20 {titer} (Normal) Antiproteinase 3 (MD-3) Abs <3.5 U/mL (Normal) Range: 0.0-3.5 Antimyeloperoxidase (MPO) Abs <9.0 U/mL (Normal) Range: 0.0-9.0 45-Xvd-294422:59 Renal function Panel Comments: now; PATIENT WAS FASTINGPERFORMED BY: Imperator [facility] [id number] BY: [employer] [facility] [id number] (24649) Albumin, Serum 4.1 g/dL (Normal) Range: 3.5-4.8 [...] Glucose, Serum 166 mg/dL (Abnormal) Range: 65-99 63-Rzc-989774:59 LIPOPROTEIN, BLD, BY NMR Comments: now; PATIENT WAS FASTINGPERFORMED BY: Netzoptiker Mznvvhpfmh3710 [facility] [id number] BY: Hire SpaceCentraState Healthcare SystemWdgbcr2333 [facility] [id number] (12936) LP-IR Score 39 (Normal) Comments: INSULIN RESISTANCE MARKER <--Insulin Sensitive Insulin Resistant--> Percentile in Reference PopulationInsulin Resistance ScoreLP-IR Score Low 25th 50th 75th High <27 27 45 63 >63LP-IR Score is inaccurate if patient is non-fasting. .The LP-IR score is a laboratory developed i [facility] that has beenassociated with insulin resistance [...] 1600 - 2000 Very High > 2000 55-Euj-359417:59 TSH (01023) Comments: PATIENT WAS FASTINGPERFORMED BY: [facility] [id number] BY: [facility] MedicalPresbyterian Española HospitalJpfexd6304 [facility] [id number] TSH 2.960 {uIU/mL} (Normal) Range: 0.450-4.500 74-Rwz-080377:59 COMPLEMENT C4 (36711) Comments: PATIENT WAS FASTINGPERFORMED BY: [facility] [id number] BY: [facility] MedicalPresbyterian Española HospitalOkzcbo9409 [facility] [id number] Complement C4, Serum 32 mg/dL (Normal) Range: 14-44 61-Qno-278602:59 COMPLEMENT C3 (42798) Comments: PATIENT WAS FASTINGPERFORMED BY: [facility] [id number] BY: [facility] MedicalPresbyterian Española HospitalSpizmc5481 [facility] [id number] Complement C3, Serum 137 mg/dL (Normal) Range: 82-167 44-Bqj-824252:59 MICROALBUMIN: CREATININE Comments: PATIENT WAS FASTINGPERFORMED BY: [facility] [id number] BY: [facility] MedicalPresbyterian Española HospitalObrwtk0728 [facility] [id number] RATIO (57049) AND (72386) Microalb/Creat Ratio 118.3 {mg/g_creat} (Abnormal) Range: 0.0-30.0 Microalbumin, Urine 52.3 ug/mL (Normal) Creatinine, Urine 44.2 mg/dL (Normal) 98-Rdm-461512:59 SPEP (19361) Comments: PATIENT WAS FASTINGPERFORMED BY: [facility] [id number] BY: [facility] MedicalCentraState Healthcare SystemIlqaiq1860 [facility] [id number] Please note: SPRCS (Normal) Comments: Protein electrophoresis scan will follow via computer, mail, orcourier delivery. A/G Ratio 1.2 (Normal) Range: 0.7-1.7 Globulin, Total 3.1 g/dL (Normal) Range: 2.2-3.9 M-Maxime Not Observed g/dL (Normal) Gamma Globulin 0.9 g/dL (Normal) Range: 0.4-1.8 Beta Globulin 1.1 g/dL (Normal) Range: 0.7-1.3 Obtrr-8-Ugmfbdwh 0.9 g/dL (Normal) Range: 0.4-1.0 Tkkhl-2-Kjhfcnxw 0.2 g/dL (Normal) Range: 0.0-0.4 Albumin 3.7 g/dL (Normal) Range: 2.9-4.4 Protein, Total, Serum 6.8 g/dL (Normal) Range: 6.0-8.5 97-Zsy-691897:59 DNA ANTIBODY-NATV/DBL ST Comments: PATIENT WAS FASTINGPERFORMED BY: [facility] [id number] BY: [facility] MedicalCentraState Healthcare SystemVzhirc9577 [facility] [id number] (95887) test code 333551 Anti-DNA (DS) Ab Qn <1 {IU/mL} (Normal) Range: 0-9 Comments: Negative <5 Equivocal 5 - 9 Positive >9 22-Nvw-778324:28 Alcohol, Blood (Medical)-Serum Comments: [facility] [address]wlo[address] [place], [place], [address] SERUM ETOH < 3.0 mg/dL (Normal) Comments: The serum:whole blood ethanol ratio is approximately 1.14and varies slightly with hematocrit.Medical Alcohol reference interval and critical value innon-tolerant individuals; 50 - 100 Impairment 100 Intoxication 100 - 250 Severe Poisoning 250 - 400 Deep/possible fatal coma 23-Izy-982485:28 CBC W/Diff, Automated Comments: [facility] [address]qwsulju[address] [place], [address] Absolute Lymph 1.85 {X10_3/ul} (Normal) Range: 0.83-4.51 [...] 4.6-6.2 WBC 7.1 K/mm3 (Normal) Range: 4.4-11.0 97-Wqr-504732:28 Comprehensive Metabolic Profil Comments: [facility] [address]ftmvtok[address] [place], [place], [address] GAP 10 (Normal) Range: 5-15 CO2 29.0 [...] 126 mg/dLsuggests DIABETES MELLITUS per A.D.A. criteria. 15-Syj-125316:28 Troponin-I Comments: 'TROP' Serial specimen #1, #2, #3, or #4: 1[facility] [address]mjfilgmag[address] [place], [place], [address] TROPONIN-I 0.03 ng/mL (Normal) Comments: TROPONIN-I EXPECTED VALUES <0.05 NEGATIVE 0.06 - 0.59 AT RISK OF LA > OR = 0.60 SUGGEST LA 71-Com-624236:08 HgA1C , Office (63705) HgA1C , Office 6.8 % (Normal) Range: 4.6 - 7.1 36-Pud-90240:59 Metabolic Panel, Basic (52760) Comments: recheck in one week; PATIENT WAS FASTINGPERFORMED BY: [facility] Bjlooc0133 [facility] [id number] Calcium, Serum 8.5 mg/dL (Abnormal) Range: 8.6-10.2 [...] Glucose, Serum 136 mg/dL (Abnormal) Range: 65-99 57-Zpe-470912:20 CBC (Auto) (83552) Comments: PATIENT NOT FASTINGPERFORMED BY: [employer] [facility] [id number] Platelets 183 {x10E3/uL} (Normal) Range: 150-379 RDW 13.6 % (Normal) Range: 12.3-15.4 MCHC 34.8 g/dL (Normal) Range: 31.5-35.7 MCH 34.1 pg (Abnormal) Range: 26.6-33.0 MCV 98 fL (Abnormal) Range: 79-97 Hematocrit 40.5 % (Normal) Range: 37.5-51.0 Hemoglobin 14.1 g/dL (Normal) Range: 12.6-17.7 RBC 4.13 {x10E6/uL} (Abnormal) Range: 4.14-5.80 WBC 7.9 {x10E3/uL} (Normal) Range: 3.4-10.8 98-Zbn-076176:20 Magnesium (83944) Comments: PATIENT NOT FASTINGPERFORMED BY: [employer] [facility] [id number] Magnesium, Serum 2.2 mg/dL (Normal) Range: 1.6-2.3 32-Hxn-515250:20 Renal function Panel (57627) Comments: PATIENT NOT FASTINGPERFORMED BY: [employer] [facility] [id number] Albumin, Serum 4.2 g/dL (Normal) Range: 3.5-4.8 [...] Glucose, Serum 266 mg/dL (Abnormal) Range: 65-99 55-Mmk-262839:54 Basic Metabolic Profile (BMP) Comments: Order Date: 12/25/16Order Info: 0667-1 - *BMPOrder Info: 48879-9 - *MagnesiumOrder Date: 12/25/16Order Info: 06859-2 - *MagnesiumComments: Reason:[facility] [address]okqpf[address] [place], [address] GAP 11 (Normal) Range: 5-15 CO2 30.0 [...] 200 mg/dLsuggests DIABETES MELLITUS per A.D.A. criteria. 73-Geh-025577:54 Magnesium Comments: Order Date: 12/25/16Order Info: 0667-1 - *BMPOrder Info: - *MagnesiumOrder Date: 12/25/16Order Info: - *MagnesiumComments: Reason:[facility] [address]ugzpt[address] [place], [place], [address](939) MG 2.0 mg/dL (Normal) Range: 1.8-2.4 17-Fsu-460204:35 Basic Metabolic Profile (BMP) Comments: Order Date: 12/18/16Order Info: 0667-1 - *BMPOrder Info: - *MagnesiumComments: For [place] episodeOrder Info: 3026-2 - *T4 (Total)Comments: Reason: For [place] episoeOrder Info: 3016-3 - *TSHComments: Alicia son: For [place] episodeOrder Date: 12/18/16Order Info: 3016-3 - *TSHComments: Reason: For [place] episodeWGenesis Hospital [address]zguxwovc[address] [place], [place], [address](842) GAP 12 (Normal) Range: 5-15 CO2 31.0 [...] 200 mg/dLsuggests DIABETES MELLITUS per A.D.A. criteria. 84-Tel-374229:35 CBC-Complete Blood Cnt No Diff Comments: Order Date: 12/18/16Order Info: 3016-3 - *TSHComments: Reason: For [place] episodeMer[facility] [address]zxjexl[address] [place], [address](919) MPV 10.7 fL (Normal) Range: 6.2-12.0 PLT [...] 4.6-6.2 WBC 8.1 K/mm3 (Normal) Range: 4.4-11.0 26-Jsp-438409:35 Magnesium Comments: Order Date: 12/18/16Order Info: 0667-1 - *BMPOrder Info: 64578-1 - *MagnesiumComments: For [place] episodeOrder Info: 3026-2 - *T4 (Total)Comments: Reason: For [place] episoeOrder Info: 3016-3 - *TSHComments: Alicia son: For [place] episodeOrder Date: 12/18/16Order Info: 3016-3 - *TSHComments: Reason: For [place] episodeMer[facility] Edfdvgookl[address] [place], [address](355) MG 2.0 mg/dL (Normal) Range: 1.8-2.4 39-Ttp-296581:35 T4 Total, Thyroxin Comments: Order Date: 12/18/16Order Info: 666-1 - *BMPOrder Info: - *MagnesiumComments: For [place] episodeOrder Info: 3026-2 - *T4 (Total)Comments: Reason: For [place] episoeOrder Info: 3016-3 - *TSHC omments: Alicia son: For [place] episodeOrder Date: 12/18/16Order Info: 3016-3 - *TSHComments: Reason: For [place] episodeWGenesis Hospital Jxpbynnqan[address] [place], [place], [phone] T4 THYROXIN 11.3 ug/dL (Normal) Range: 4.5-12.1 82-Kpo-429241:35 Thyroid Stim Hormone (TSH) Comments: Order Date: 12/18/16Order Info: 666-1 - *BMPOrder Info: - *MagnesiumComments: For [place] episodeOrder Info: 3026-2 - *T4 (Total)Comments: Reason: For [place] episoeOrder Info: 3016-3 - *TSHComments: Alicia son: For [place] episodeOrder Date: 12/18/16Order Info: 3016-3 - *TSHComments: Reason: For [place] episodeWGenesis Hospital [address]jbtjofdcz[address] [place], [place], [address] TSH 0.86 {uIU/mL} (Normal) Range: 0.358-3.74 9-Sra-323558:05 PSA (Prostate Specific Comments: PATIENT NOT FASTINGPERFORMED BY: LabCoCent[facility] [id number] [facility] [id number] Information: [id number] NURSE DRAW Antigen), Screening (02239) Prostate Specific Ag, 1.0 ng/mL (Normal) Range: 0.0-4.0 Serum Comments: Milk Mantra ECLIA methodology. .According to the [employer], Serum PSA shoulddecrease and remain at undetectable levels after radicalprostatectomy. The AUA defines biochemical recurrence as an initialPSA value 0.2 ng/mL or greater followed by a subsequent confirmatoryPSA value 0.2 ng/mL or greater.Values obtained with d ifferent assay methods or kits cannot be usedinterchangeably. Results cannot be interpreted as absolute evidenceof the presence or absence of malignant disease. [id number] Metabolic Panel, Basic Comments: copy to Dr. hu; PATIENT NOT FASTINGPERFORMED BY: [facility] Ouzhxc9175 [facility] [id number] Information: [id number] ([id number]) Calcium, Serum 9.3 mg/dL (Normal) Range: 8.6-10.2 [...] Glucose, Serum 192 mg/dL (Abnormal) Range: 65-99 [id number] BNTP (73182) Comments: PATIENT NOT FASTINGPERFORMED BY: [facility] Yfigcu0369 [facility] [id number] Information: [id number] B-Type Natriuretic Peptide 273.9 pg/mL (Abnormal) Range: 0.0-100.0 3-Gvx-686101:01 HgA1C , Office (63591) HgA1C , Office 6.1 % (Normal) Range: 4.6 - 7.1 20-Wov-643546:02 Basic Metabolic Profile (BMP) Comments: [facility] [address] [place], [place], [address] GAP 6 (Normal) Range: 5-15 CO2 26.0 [...] 126 mg/dLsuggests DIABETES MELLITUS per A.D.A. criteria. 53-Uam-504804:02 BNP,B-Type NATRIURETIC PEPTIDE Comments: [facility] [address] [place], [place], [address] B-TYPE JUSTIN PEP 261.3 pg/mL (Abnormal) Range: 0-100 67-Zgm-631295:22 TSH (00390) Comments: PATIENT NOT FASTINGPERFORMED BY: [facility] Jllmyw8090 [facility] [id number] TSH 3.740 {uIU/mL} (Normal) Range: 0.450-4.500 71-Aaq-711249:22 METABOLIC PANEL, COMPREHENSIVE Comments: PATIENT NOT FASTINGPERFORMED BY: [facility] Xdvhmb7237 [facility] [id number] (97995) ALT (SGPT) 19 [iU]/L (Normal) Range: 0-44 [...] Glucose, Serum 155 mg/dL (Abnormal) Range: 65-99 35-Dqw-666064:22 CBC W/AUTO DIFF WBC Comments: PATIENT NOT FASTINGPERFORMED BY: [facility] Uxoeof8851 [facility] [id number] Information: [id number]; [address] (53332) Immature Grans (Abs) 0.0 {x10E3/uL} (Normal) Range: [...] (Normal) Range: 3.4-10.8 :57 HgA1C , Office (91541) HgA1C , Office 7.1 % (Normal) Range: 4.6 - 7.1 :13 Lipid Profile Comments: [facility] [address] [place], [place], [id number] VLDL 78 mg/dL (Abnormal) Range: 5-40 LDL [...] mg/dL High Risk :13 Liver Profile Comments: [facility] Slalwtaeed7266 [facility]. [place], [place], [id number] D BILI 0.10 mg/dL (Normal) Range: 0.00-0.30 T BILI 0.40 mg/dL (Normal) Range: 0.20-1.00 ALT 30 U/L (Normal) Range: 12-78 ALK P 99 U/L (Normal) Range: 50-136 AST 23 U/L (Normal) Range: 15-37 GLOB 3.6 g/dL (Abnormal) Range: 2.3-3.5 ALB 3.3 g/dL (Abnormal) Range: 3.4-5.0 T PROT 6.9 g/dL (Normal) Range: 6.4-8.2 82-Rfh-740034:33 Blood Glucose , Office (60911) Blood Glucose , Office 184 (Normal) Comments: told to stop juices and tighten diet 72-Dlh-38301:25 METABOLIC PANEL, BASIC Comments: PATIENT NOT FASTINGPERFORMED BY: [place] 3672570 [facility] [id number] Information: [id number]; [address]. [address] creat stayed same (42985) Calcium, Serum 9.0 mg/dL (Normal) Range: 8.6-10.2 [...] Glucose, Serum 127 mg/dL (Abnormal) Range: 65-99 24-Obz-769947:26 Metabolic Panel, Basic Comments: standing order; PATIENT NOT FASTINGPERFORMED BY: [facility]6370 [facility] [id number] Information: [id number] (46010) Calcium, Serum 9.1 mg/dL (Normal) Range: 8.6-10.2 [...] mg/dL (Abnormal) Range: 65-99 :36 CULTURE, SPUTUM (96543) Comments: PATIENT NOT FASTINGPERFORMED BY: MedMark ServicesCritical access hospital [id number] Information: SRC:[facility] [id number] Result 1 RRF (Normal) Comments: Routine respiratory liu Lower Respiratory Culture Final report (Normal) :31 HgA1C , Office (37025) HgA1C , Office 6.4 % (Normal) Range: 4.6 - 7.1 :31 Blood Glucose , Office (05324) Blood Glucose , Office 282 (Normal) :38 PSA (PROSTATE SPECIFIC Comments: PATIENT NOT FASTINGPERFORMED BY: [employer]6370 [facility] Cloud CameraAtrium Health Cleveland [id number] ANTIGEN) (V76.44) Prostate Specific Ag, 1.0 ng/mL (Normal) Range: 0.0-4.0 Serum Comments: Erik ECLIA methodology. .According to the [place] [employer], Serum PSA shoulddecrease and remain at undetectable levels after radicalprostatectomy. The AUA defines biochemical recurrence as an initialPSA value 0.2 ng/mL or greater followed by a subsequent confirmatoryPSA value 0.2 ng/mL or greater.Values obtained with d ifferent assay methods or kits cannot be usedinterchangeably. Results cannot be interpreted as absolute evidenceof the presence or absence of malignant disease. :38 TSH (56427) Comments: PATIENT NOT FASTINGPERFORMED BY: [employer]6370 [facility] InstituteCritical access hospital [id number] TSH 4.310 {uIU/mL} (Normal) Range: 0.450-4.500 :38 Magnesium (79079) Comments: PATIENT NOT FASTINGPERFORMED BY: Secure-2470 [facility] [id number] Magnesium, Serum 1.9 mg/dL (Normal) Range: 1.6-2.6 :38 Metabolic Panel, Comments: PATIENT NOT FASTINGPERFORMED BY: SLAVA [facility] Bdvkbx9290 [facility] [id number] Information: [id number]; [address] Comprehensive (99376) ALT (SGPT) 28 [iU]/L (Normal) Range: 0-44 [...] Glucose, Serum 163 mg/dL (Abnormal) Range: 65-99 19-Ayf-350590:08 HgA1C , Office (25156) HgA1C , Office 6.5 % (Normal) Range: 4.6 - 7.1 :08 Blood Glucose , Office (10090) Blood Glucose , Office 277 (Normal) :52 CBC, Platelet, No Differential Comments: PATIENT WAS FASTINGPERFORMED BY: LabLiveRampCentraState Healthcare SystemLjnpdz0417 [facility] [id number] Platelets 184 {x10E3/uL} (Normal) Range: 150-379 RDW 14.1 % (Normal) Range: 12.3-15.4 MCHC 34.2 g/dL (Normal) Range: 31.5-35.7 MCH 33.7 pg (Abnormal) Range: 26.6-33.0 MCV 99 fL (Abnormal) Range: 79-97 Hematocrit 40.3 % (Normal) Range: 37.5-51.0 Hemoglobin 13.8 g/dL (Normal) Range: 12.6-17.7 RBC 4.09 {x10E6/uL} (Abnormal) Range: 4.14-5.80 WBC 8.2 {x10E3/uL} (Normal) Range: 3.4-10.8 :52 Renal Panel (10) Comments: PATIENT WAS FASTINGPERFORMED BY: LabCoCentraState Healthcare SystemYnplrx0294 [facility] [id number] Information: [id number] Albumin, Serum 4.1 g/dL (Normal) Range: 3.5-4.8 [...] 65-99 :05 Lipid Profile Comments: Test performed at:[facility] Dfqhrzhbom3256 [facility] [place] [address] VLDL 35 mg/dL (Normal) Range: 5-40 LDL [...] Risk :05 Liver Profile Comments: Test performed at:[facility] [address] [place], [place] [id number] D BILI 0.20 mg/dL (Normal) Range: 0.00-0.30 T BILI 0.70 mg/dL (Normal) Range: 0.00-4.00 ALT 27 U/L (Normal) Range: 12-78 ALK P 80 U/L (Normal) Range: 50-136 AST 26 U/L (Normal) Range: 15-37 GLOB 3.4 g/dL (Normal) Range: 2.7-4.2 ALB 3.7 g/dL (Normal) Range: 3.4-5.0 T PROT 7.1 g/dL (Normal) Range: 6.4-8.2 79-Vbj-598147:47 Vitamin B-12 Comments: these today; PATIENT NOT FASTINGPERFORMED BY: [facility] Osrlja5501 SweeneyUp My GameAtrium Health Cleveland [id number] BY: LabCo[address] [id number] (cyanocobalamin) (27621) Vitamin B12 526 pg/mL (Normal) Range: 211-946 81-Nzk-308434:47 RETICULOCYTE COUNT (72331) Comments: PATIENT NOT FASTINGPERFORMED BY: [facility] Lpamux6736 [facility] [id number] BY: [place] 819327 [facility] [id number] Reticulocyte Count 2.1 % (Normal) Range: 0.6-2.6 67-Uib-513470:47 Folic Acid Serum (46811) Comments: PATIENT NOT FASTINGPERFORMED BY: [place] MedicalScott Ville 9178770 [facility] [id number] BY: [address] [id number] Information: [id number] Folate (Folic Acid), Serum >20.0 ng/mL (Normal) Comments: A serum folate concentration of less than 3.1 ng/mL isconsidered to represent clinical deficiency. 31-Mxb-473263:47 Methymalonic Acid, Serum Comments: PATIENT NOT FASTINGPERFORMED BY: [facility] MedicalScott V[place] 9178770 [facility] [id number] BY: [facility] [id number] (57238) Methylmalonic Acid, Serum 219 nmol/L (Normal) Range: 0-378 :42 HgA1C , Office (85181) HgA1C , Office 6.5 % (Normal) Range: 4.6 - 7.1 :42 Blood Glucose , Office (73933) Blood Glucose , Office 194 (Normal) 84-Onc-313786:13 Basic Metabolic Profile (BMP) Comments: Test performed at:[facility] [address] [place] [address] GAP 8 (Normal) Range: 5-15 CO2 28.0 [...] Basic Metabolic Profile (BMP) Comments: Test performed at:[facility] [address] [place] [address] GAP 6 (Normal) Range: 5-15 CO2 29.0 [...] :22 BNP,B-Type NATRIURETIC PEPTIDE Comments: Test performed at:[facility] [address] [place] [address] B-TYPE JUSTIN PEP 337.5 pg/mL (Abnormal) Range: 0-100 61-Vor-988923:19 Magnesium (46800) Comments: 2 weeks and in three months (approximately); PATIENT WAS FASTINGPERFORMED BY: [facility] Rxdvwi5704 [facility] [id number] Magnesium, Serum 1.9 mg/dL (Normal) Range: 1.6-2.6 08-Rfs-204358:19 Renal function Panel (87939) Comments: 2 weeks; PATIENT WAS FASTINGPERFORMED BY: [facility] Gnknym1508 [facility] [id number] Phosphorus, Serum 3.2 mg/dL (Normal) Range: 2.5-4.5 :19 TSH (35152) Comments: PATIENT WAS FASTINGPERFORMED BY: MICMALI Xklita2210 [facility] [id number] TSH 2.460 {uIU/mL} (Normal) Range: 0.450-4.500 :19 METABOLIC PANEL, COMPREHENSIVE Comments: PATIENT WAS FASTINGPERFORMED BY: MICMALI Rjhbhn5203 [facility] [id number] (43489) ALT (SGPT) 21 [iU]/L (Normal) Range: 0-44 [...] Glucose, Serum 131 mg/dL (Abnormal) Range: 65-99 94-Gys-085301:19 LIPID PANEL (65764) Comments: PATIENT WAS FASTINGPERFORMED BY: MICMALI Expefx7505 [facility] [id number] LDL/HDL Ratio 0.7 {ratio_units} (Normal) Range: 0.0-3.6 [...] Cholesterol, Total 118 mg/dL (Normal) Range: 100-199 47-Kfc-412861:19 CBC W/AUTO DIFF WBC Comments: PATIENT WAS FASTINGPERFORMED BY: [facility] MedicalCentraState Healthcare SystemXdhkdo5420 [facility] [id number] Information: [id number] (87172) Immature Grans (Abs) 0.0 {x10E3/uL} (Normal) Range: [...] Range: 3.4-10.8 :38 Blood Glucose , Office (82880) Blood Glucose , Office 229 (Normal) :38 HgA1C , Office (58064) HgA1C , Office 6.7 % (Normal) Range: 4.6 - 7.1 82-Vpl-378740:23 Basic Metabolic Profile (BMP) Comments: Test performed at:[facility] [address] [place] [address] GAP 6 (Normal) Range: 5-15 CO2 28.0 [...] 126 mg/dLsuggests DIABETES MELLITUS per A.D.A. criteria. :23 BNP,B-Type NATRIURETIC PEPTIDE Comments: Test performed at:[facility] Uwzhmosxfc0029 [place] [address] B-TYPE JUSTIN PEP 348.7 pg/mL (Abnormal) Range: [...] :58 BTNP 261.6 pg/mL (Abnormal) Range: 0-100 :47 CBC (Auto) (74762) Comments: PATIENT NOT FASTINGPERFORMED BY: [employer]70 [facility]ind[facility] [id number] Platelets 165 {x10E3/uL} (Normal) Range: 150-379 RDW 13.9 % (Normal) Range: 12.3-15.4 MCHC 34.3 g/dL (Normal) Range: 31.5-35.7 MCH 33.8 pg (Abnormal) Range: 26.6-33.0 MCV 99 fL (Abnormal) Range: 79-97 Hematocrit 38.5 % (Normal) Range: 37.5-51.0 Hemoglobin 13.2 g/dL (Normal) Range: 12.6-17.7 RBC 3.91 {x10E6/uL} (Abnormal) Range: 4.14-5.80 WBC 6.7 {x10E3/uL} (Normal) Range: 3.4-10.8 :47 Renal function Panel Comments: PATIENT NOT FASTINGPERFORMED BY: [employer]6370 [facility] [id number] Information: [id number] (66384) Albumin, Serum 4.0 g/dL (Normal) Range: 3.5-4.8 [...] Glucose, Serum 144 mg/dL (Abnormal) Range: 65-99 :47 MAGNESIUM (01646) Comments: PATIENT NOT FASTINGPERFORMED BY: LabCoCentraState Healthcare SystemWefcaw6673 [facility] [id number] Magnesium, Serum 1.7 mg/dL (Normal) Range: 1.6-2.6 :28 HgA1C , Office (75241) HgA1C , Office 6.6 % (Normal) Range: 4.6 - 7.1 :28 Blood Glucose , Office (60041) Blood Glucose , Office 148 (Normal) :54 CBCD Comments: OLLIE ANDREW ORDERED CBCD TSH T4DR BONEZZShun ORDERED PSA TSH CBCD LIPID CMP KATELYN [...] 4.6-6.2 WBC 6.6 K/mm3 (Normal) Range: 4.4-11.0 86-Csu-13651:54 CMP Comments: DR HU ORDERED BMPMICHELLE ANDREW ORDERED CBCD TSH T4DR BONEZZI ORDERED [...] ORDERED SHAYY ANDREW ORDERED CBCD TSH T4DR BONEIMELDA ORDERED PSA TSH CBCD LIPID CMP MIAMAG ADDED PER REQUEST LDL 43 mg/dL (Normal) Range: 0-130 VLDL 25 mg/dL (Normal) Range: 5-40 CHOL 130 mg/dL (Normal) Comments: <200 mg/dL Zamhojedv693-485 mg/dL Borderline>240 mg/dL High Risk HDL 62 [...] ORDERED SHAYY ANDREW ORDERED CBCD TSH T4DR BONEIMELDA ORDERED PSA TSH CBCD LIPID CMP MIAMAG ADDED PER REQUEST Range: 1.8-2.4 :54 MIACRE MIALB 34.3 mg/L (Normal) tMICROCREAT 17.5 {mg/g_CRE} (Normal) CREU 195.6 mg/dL (Normal) :54 PSA 1.30 ng/mL (Normal) Comments: DR HU ORDERED SHAYY ANDREW ORDERED CBCD TSH T4DR BONEIMELDA ORDERED PSA TSH CBCD LIPID CMP MIAMAG ADDED PER REQUEST Range: 0.00-4.00 Comments: This test was performed using the TPSA assay method for the[employer] chemistry system. Values obtained with differentassay methods cannot be used interchangably.When changing PSA assays in the course of monitoring apatient, additional sequential testing should be carriedout to confirm baseline values. :54 T4 8.3 ug/dL (Normal) Comments: DR HU ORDERED RAÚLMICKADI ANDREW ORDERED CBCD TSH T4DR BONEZZI ORDERED PSA TSH CBCD LIPID CMP MIAMAG ADDED PER REQUEST Range: 4.5-12.1 :54 TSH 2.50 {uIU/mL} (Normal) Comments: DR HU ORDERED SHAYY ANDREW ORDERED CBCD TSH T4DR BONEZZI ORDERED PSA TSH CBCD LIPID CMP MIAMAG ADDED PER REQUEST Range: 0.358-3.74 :13 BMP GAP 7 (Normal) Range: 5-15 CO2 [...] 126 mg/dLsuggests DIABETES MELLITUS per A.D.A. criteria. :37 Metabolic Panel, Basic Comments: recheck in 1-2 weeks; PATIENT NOT FASTINGPERFORMED BY: LabCoCentraState Healthcare SystemOmhfjf5508 [facility] [id number] Information: [id number] (04352) Calcium, Serum 8.7 mg/dL (Normal) Range: 8.6-10.2 [...] Glucose, Serum 161 mg/dL (Abnormal) Range: 65-99 74-Ezo-406391:00 BNTP (84526) Comments: PATIENT NOT FASTINGPERFORMED BY: [facility] U[address]jfc[address] [place] [address] [id number] Information: [id number] ORDER NO DRAW F EE B-Type Natriuretic Peptide 899.8 pg/mL (Abnormal) Range: 0.0-100.0 71-Efz-557794:14 CULTURE, SPUTUM (20920) Comments: PATIENT NOT FASTINGPERFORMED BY: [facility] Azcdll[address] [place] [address] [id number] Result 1 RRF (Normal) Comments: Routine respiratory liu Lower Respiratory Culture Final report (Normal) 26-Ing-316690:00 Metabolic Panel, Basic Comments: PATIENT NOT FASTINGPERFORMED BY: [facility] MedicalCentraState Healthcare SystemUypcvb659[address] [place] [address] [id number] Information: [id number] (63292) Calcium, Serum 8.6 mg/dL (Normal) Range: 8.6-10.2 [...] Glucose, Serum 129 mg/dL (Abnormal) Range: 65-99 51-Dom-680080:22 CBC WITH MANUAL DIFF Comments: all copies of labs to Dr. hu; PATIENT WAS FASTINGPERFORMED BY: LabCoCentraState Healthcare SystemWaascg6313 [facility] [id number] Information: [id number] (38692) Immature Grans (Abs) 0.0 {x10E3/uL} (Normal) Range: [...] 4.14-5.80 WBC 7.7 {x10E3/uL} (Normal) Range: 3.4-10.8 22-Xyt-248612:22 MICROALBUMIN: CREATININE RATIO Comments: PATIENT WAS FASTINGPERFORMED BY: [facility] Jloxoi6530 [facility] [id number] (01618) AND (15454) Microalb/Creat Ratio 135.4 {mg/g_creat} (Abnormal) Range: 0.0-30.0 Creatinine, Urine 126.0 mg/dL (Normal) Range: 22.0-328.0 Microalbumin, Urine 170.6 ug/mL (Abnormal) Range: 0.0-17.0 :22 METABOLIC PANEL, COMPREHENSIVE Comments: PATIENT WAS FASTINGPERFORMED BY: [employer]70 [facility] [id number] (30314) ALT (SGPT) 14 [iU]/L (Normal) Range: 0-44 [...] Glucose, Serum 140 mg/dL (Abnormal) Range: 65-99 06-Lho-709491:22 LIPID PANEL (86385) Comments: PATIENT WAS FASTINGPERFORMED BY: [employer]6370 [facility] [id number] LDL/HDL Ratio 0.8 {ratio_units} (Normal) Range: 0.0-3.6 LDL Cholesterol Calc 40 mg/dL (Normal) Range: 0-99 VLDL Cholesterol Mike 27 mg/dL (Normal) Range: 5-40 HDL Cholesterol 53 mg/dL (Normal) Comments: According to ATP-III Guidelines, HDL-C >59 mg/dL is considered anegative risk factor for CHD. Triglycerides 134 mg/dL (Normal) Range: 0-149 Cholesterol, Total 120 mg/dL (Normal) Range: 100-199 56-Zgf-955036:22 TSH (97784) Comments: PATIENT WAS FASTINGPERFORMED BY: [employer] [facility] [id number] TSH 3.630 {uIU/mL} (Normal) Range: 0.450-4.500 :34 Blood Glucose , Office (09113) Blood Glucose , Office 164 (Normal) :34 HgA1C , Office (79302) HgA1C , Office 6.4 % (Normal) Range: 4.6 - 7.1 :31 LIPID PANEL (64974) Comments: copy all labs to [email or web address]; PATIENT WAS FASTINGPERFORMED BY: Secure-2470 [facility] [id number] LDL/HDL Ratio 0.9 {ratio_units} (Normal) Range: 0.0-3.6 [...] (PROSTATE SPECIFIC Comments: PATIENT WAS FASTINGPERFORMED BY: Ravgenlin6370 [facility] [id number] ANTIGEN) (V76.44) Prostate Specific Ag, 1.3 ng/mL (Normal) Range: 0.0-4.0 Serum Comments: Erik ECLIA methodology. .According to the [place] [employer], Serum PSA shoulddecrease and remain at undetectable levels after radicalprostatectomy. The AUA defines biochemical recurrence as an initialPSA value 0.2 ng/mL or greater followed by a subsequent confirmatoryPSA value 0.2 ng/mL or greater.Values obtained with d ifferent assay methods or kits cannot be usedinterchangeably. Results cannot be interpreted as absolute evidenceof the presence or absence of malignant disease. :31 TSH (76553) Comments: PATIENT WAS FASTINGPERFORMED BY: [employer] Mrolme4311 [facility] Cloud CameraAtrium Health Cleveland [id number] TSH 3.240 {uIU/mL} (Normal) Range: 0.450-4.500 : MICROALBUMIN: CREATININE RATIO Comments: PATIENT WAS FASTINGPERFORMED BY: [employer] Aureliant [facility] [id number] (53142) AND (25488) Microalb/Creat Ratio 51.5 {mg/g_creat} (Abnormal) Range: 0.0-30.0 Microalbumin, Urine 104.3 ug/mL (Abnormal) Range: 0.0-17.0 Creatinine, Urine 202.4 mg/dL (Normal) Range: 22.0-328.0 : METABOLIC PANEL, COMPREHENSIVE Comments: PATIENT WAS FASTINGPERFORMED BY: Hire SpacePresbyterian Española HospitalOupfuc8502 [facility] [id number] (44112) ALT (SGPT) 13 [iU]/L (Normal) Range: 0-44 [...] Glucose, Serum 122 mg/dL (Abnormal) Range: 65-99 02-Nch-26398:31 CBC WITH MANUAL DIFF Comments: PATIENT WAS FASTINGPERFORMED BY: LabHenry Ford Hospital6370 [facility] [id number] Information: ADD [id number] AND DRAW FEE [id number] (85583) Immature Grans (Abs) 0.0 {x10E3/uL} (Normal) Range: [...] interval change :42 Blood Glucose , Office (93743) Blood Glucose , Office 171 (Normal) :41 HgA1C , Office (26248) HgA1C , Office 6.1 % (Normal) Range: 4.6 - 7.1 :36 CHEST, PA AND LATERAL Radiology Report See [...] tissuestructures of the upper abdomen. IMPRESSION:Cardiomegaly. Signed:Louis Leahy M.D.December 11, 2012 at 4:00:01 PM [id number] Signed GP/GP If you are the referring physician and would like to consult with theradiologist who provided this interpretation, please contact James Trejo at . If this radiologist is unavailable, youwill be directed to another radiologist to assist. If you are a patient with a question regarding this report, pleasecontactyour referring physician directly. Professional Interpretation Provided By: [employer], Phone , These documents contain legally protected [...] destructionofthese documents. Dictated on 12/11/12 1533 by Rafy Leahy MDranscribed on 12/11/12 1604 by ITS IMPORTSign by Louis Leahy MD on 12/11/12 1605 Sign by: Louis Leahy MD 24-Btq-93400:56 CBC, Platelets & Auto Diff Comments: PATIENT NOT FASTINGPERFORMED BY: LabCoCentraState Healthcare SystemFaxiuf8491 [facility] [id number] Information: [id number] (01541) Immature Grans (Abs) 0.0 {x10E3/uL} (Normal) Range: [...] (Normal) Range: 4.0-10.5 :56 Metabolic Panel, Basic (45114) Comments: PATIENT NOT FASTINGPERFORMED BY: LabCoCentraState Healthcare SystemTbyldm4550 [facility] [id number] Calcium, Serum 9.5 mg/dL (Normal) Range: 8.6-10.2 [...] Range: 65-99 :03 Blood Glucose , Office (64423) Blood Glucose , Office 185 (Normal) :03 HgA1C , Office (74329) HgA1C , Office 5.6 % (Normal) Range: 4.6 - 7.1 :36 CBC WITH MANUAL DIFF Comments: send cardiology Dr. hu; PATIENT WAS FASTINGPERFORMED BY: LabCoCentraState Healthcare SystemTcgfgg4496 [facility] [id number] Information: [id number] (54875) Immature Grans (Abs) 0.0 {x10E3/uL} (Normal) Range: [...] 4.14-5.80 WBC 10.9 {x10E3/uL} (Abnormal) Range: 4.0-10.5 8-Wei-539364:36 MICROALBUMIN: CREATININE RATIO Comments: PATIENT WAS FASTINGPERFORMED BY: [employer] Xspbdl8986 [facility] [id number] (01552) AND (34727) Microalb/Creat Ratio 37.8 {mg/g_creat} (Abnormal) Range: 0.0-30.0 Creatinine, Urine 138.0 mg/dL (Normal) Range: 22.0-328.0 Microalbumin, Urine 52.1 ug/mL (Abnormal) Range: 0.0-17.0 7-Hse-753037:36 METABOLIC PANEL, COMPREHENSIVE Comments: PATIENT WAS FASTINGPERFORMED BY: [employer]6370 [facility] [id number] (68466) ALT (SGPT) 17 [iU]/L (Normal) Range: 0-44 [...] Glucose, Serum 109 mg/dL (Abnormal) Range: 65-99 0-Mot-067230:36 LIPID PANEL (99895) Comments: PATIENT WAS FASTINGPERFORMED BY: Secure-2470 [place] [facility] HospitalBiotie TherapiesCritical access hospital [id number] LDL Cholesterol Calc 52 mg/dL (Normal) Range: 0-99 LDL/HDL Ratio 0.9 {ratio_units} (Normal) Range: 0.0-3.6 HDL Cholesterol 58 mg/dL (Normal) Comments: According to ATP-III Guidelines, HDL-C >59 mg/dL is considered anegative risk factor for CHD. VLDL Cholesterol Mike 21 mg/dL (Normal) Range: 5-40 Cholesterol, Total 131 mg/dL (Normal) Range: 100-199 Triglycerides 103 mg/dL (Normal) Range: 0-149 8-Hdf-552456:14 Blood Glucose , Office (75550) Blood Glucose , Office 171 (Normal) Comments: had toast for breakfast 6-Rum-213289:07 HgA1C , Office (12662) HgA1C , Office 6.0 % (Normal) Range: 4.6 - 7.1 1-Yqv-628465:07 Blood Glucose , Office (79494) Blood Glucose , Office 192 (Normal) 8-Tbv-945076:45 MICROALBUMIN: CREATININE RATIO Comments: PATIENT WAS FASTINGPERFORMED BY: [employer] Bwuoaw0931 [facility] [id number] (19652) AND (68312) Microalb/Creat Ratio 218.7 {mg/g_creat} (Abnormal) Range: 0.0-30.0 Microalbumin, Urine 359.3 ug/mL (Abnormal) Range: 0.0-17.0 Creatinine, Urine 164.3 mg/dL (Normal) Range: 22.0-328.0 9-Alr-156174:45 METABOLIC PANEL, COMPREHENSIVE Comments: PATIENT WAS FASTINGPERFORMED BY: [facility] Vyzbjs5452 [facility] [id number] (43210) ALT (SGPT) 11 [iU]/L (Normal) Range: 0-55 [...] Glucose, Serum 125 mg/dL (Abnormal) Range: 65-99 :45 LIPID PANEL (24934) Comments: PATIENT WAS FASTINGPERFORMED BY: [facility] Mldfsk0116 [facility] [id number] LDL/HDL Ratio 0.6 {ratio_units} (Normal) Range: 0.0-3.6 LDL Cholesterol Calc 40 mg/dL (Normal) Range: 0-99 VLDL Cholesterol Mike 12 mg/dL (Normal) Range: 5-40 HDL Cholesterol 62 mg/dL (Normal) Comments: According to ATP-III Guidelines, HDL-C >59 mg/dL is considered anegative risk factor for CHD. Triglycerides 58 mg/dL (Normal) Range: 0-149 Cholesterol, Total 114 mg/dL (Normal) Range: 100-199 9-Mew-655846:45 CBC WITH MANUAL DIFF Comments: PATIENT WAS FASTINGPERFORMED BY: LabCoCentraState Healthcare [id number] [id number] Information: [id number] ([id number]) Immature Grans (Abs) 0.0 {x10E3/uL} (Normal) Range: [...] 4.14-5.80 WBC 6.1 {x10E3/uL} (Normal) Range: 4.0-10.5 [id number]:41 HgA1C , Office (94236) HgA1C , Office 5.5 % (Normal) Range: 4.6 - 7.1 :41 Blood Glucose , Office (33578) Blood Glucose , Office 148 (Normal) :00 CBC (Auto) (20793) Comments: PATIENT NOT FASTINGPERFORMED BY: [facility]pcxys1891 [facility] [id number] Information: [id number] Platelets 215 {x10E3/uL} (Normal) Range: 140-415 RDW 15.4 % (Abnormal) Range: 11.7-15.0 MCHC 32.3 g/dL (Normal) Range: 32.0-36.0 MCH 30.5 pg (Normal) Range: 27.0-34.0 MCV 94 fL (Normal) Range: 80-98 Hematocrit 39.0 % (Normal) Range: 36.0-50.0 Hemoglobin 12.6 g/dL (Normal) Range: 12.5-17.0 RBC 4.13 {x10E6/uL} (Normal) Range: 4.10-5.60 WBC 7.2 {x10E3/uL} (Normal) Range: 4.0-10.5 :13 HgA1C , Office (98167) HgA1C , Office 5.3 % (Normal) Range: 4.6 - 7.1 :13 Blood Glucose , Office (24887) Blood Glucose , Office 146 (Normal) :12 Microscopic Examination Comments: PATIENT WAS FASTINGPERFORMED BY: [facility] Rbafle9323 [facility] [id number] Bacteria None seen (Normal) Mucus Threads Present (Normal) Epithelial Cells (non renal) 0-10 {/hpf} (Normal) Range: 0 - 10 RBC 0-3 {/hpf} (Normal) Range: 0 - 3 WBC 0-5 {/hpf} (Normal) Range: 0 - 5 :12 PSA (PROSTATE SPECIFIC Comments: PATIENT WAS FASTINGPERFORMED BY: [facility] MedicalPresbyterian Española HospitalZeggkc1499 [facility] [id number] ANTIGEN) (V76.44) Prostate Specific Ag, 1.0 ng/mL (Normal) Range: 0.0-4.0 Serum Comments: Kneo[employer]IA methodology. .According to the [employer], Serum PSA shoulddecrease and remain [...] of malignant disease. :12 URINALYSIS, W/ MICRO (45510) Comments: PATIENT WAS FASTINGPERFORMED BY: [id number] [facility] [id number] Microscopic Examination See below: (Normal) Microscopic Examination MICRON (Normal) Comments: Microscopic follows if indicated. Nitrite, Urine Negative (Normal) Urobilinogen,Semi-Qn 0.2 mg/dL (Normal) Range: 0.0-1.9 Bilirubin Negative (Normal) Ketones Negative (Normal) Occult Blood Negative (Normal) Glucose Negative (Normal) Protein Negative (Normal) WBC Esterase Negative (Normal) Appearance Clear (Normal) pH 7.5 (Normal) Range: 5.0-7.5 Urine-Color Yellow (Normal) Specific [place] 1.013 (Normal) Range: 1.005-1.030 :12 METABOLIC PANEL, COMPREHENSIVE Comments: PATIENT WAS FASTINGPERFORMED BY: [employer]6370 [facility] [id number] (32261) ALT (SGPT) 13 [iU]/L (Normal) Range: 0-55 [...] Glucose, Serum 102 mg/dL (Abnormal) Range: 65-99 31-Oct-20119:12 CBC WITH MANUAL DIFF Comments: PATIENT WAS FASTINGPERFORMED BY: [facility]Henry [facility] Hospital6370 [facility] [id number] Information: [id number] (04077) Immature Grans (Abs) 0.0 {x10E3/uL} (Normal) Range: [...] {x10E3/uL} (Normal) Range: 4.0-10.5 :12 LIPID PANEL (48548) Comments: PATIENT WAS FASTINGPERFORMED BY: [employer] Zisfbe2744 [facility] [id number] LDL/HDL Ratio 0.9 {ratio_units} (Normal) Range: 0.0-3.6 LDL Cholesterol Calc 52 mg/dL (Normal) Range: 0-99 VLDL Cholesterol Mike 18 mg/dL (Normal) Range: 5-40 HDL Cholesterol 60 mg/dL (Normal) Comments: According to ATP-III Guidelines, HDL-C >59 mg/dL is considered anegative risk factor for CHD. Cholesterol, Total 130 mg/dL (Normal) Range: 100-199 Triglycerides 92 mg/dL (Normal) Range: 0-149 :32 HgA1C , Office (01740) HgA1C , Office 6.0 % (Normal) Range: 4.6 - 7.1 :32 Blood Glucose , Office (13163) Blood Glucose , Office 128 (Normal) :24 LIPID PANEL (96014) Comments: PATIENT NOT FASTINGPERFORMED BY: SurfingbirdHenry Ford Hospital6370 [facility] [id number] Information: [id number] LDL Cholesterol Calc 33 mg/dL (Normal) Range: [...] Panel, Basic Comments: PATIENT NOT FASTINGPERFORMED BY: [facility] MedicalPresbyterian Española HospitalNhydgp7228 [facility] [id number] Information: [id number] (02049) Calcium, Serum 9.0 mg/dL (Normal) Range: 8.6-10.2 [...] 149 mg/dL (Abnormal) Range: 65-99 :56 Ferritin (77717) Comments: PATIENT NOT FASTINGPERFORMED BY: SurfingbirdHenry Ford Hospital6370 [facility] [id number] Ferritin, Serum 221 ng/mL (Normal) Range: 30-400 :19 Blood Glucose , Office (10011) Blood Glucose , Office 134 (Normal) :00 LIPID HDL 61 mg/dL (Normal) Comments: Reference [...] 200-240 mg/dL Borderline >240 mg/dL High Risk :00 LIVER D BILI 0.13 mg/dL (Normal) Range: 0.00-0.30 T BILI 0.40 mg/dL (Normal) Range: 0.00-1.00 ALT 29 U/L (Normal) Range: 12-78 ALK P 43 U/L (Abnormal) Range: 50-136 ALB 4.1 g/dL (Normal) Range: 3.4-5.0 AST 12 U/L (Abnormal) Range: 15-37 T PROT 7.4 g/dL (Normal) Range: 6.4-8.2 :00 BMP CL 102 mmol/L (Normal) Range: 98-107 CO2 25.0 mmol/L (Normal) Range: 21.0-32.0 GAP 10 (Normal) Range: 5-15 K 4.8 mmol/L (Normal) Range: 3.5-5.1 NA 137 mmol/L (Normal) Range: 136-145 BUN/CRE 14.4 {RATIO} (Normal) Range: 10-20 CA 9.5 mg/dL (Normal) Range: 8.5-10.1 BUN 23 mg/dL (Abnormal) Range: 7-18 CREAT,SERUM 1.6 mg/dL (Abnormal) Range: 0.8-1.3 GLU 67 mg/dL (Abnormal) Range: 70-110 67-Pii-187002:29 HIP, MIN 2 VIEWS Radiology Report See [...] noted above. Dictated on 10/13/10 1038 by Isabel Calderónscribed on 10/13/10 1038 by ROC COOPERSign by King Calderón on 10/14/10 1005 Sign by: King Calderón 38-Bog-193367:28 HIP, MIN 2 VIEWS Radiology Report See [...] by Isabel Nguyenscribed on 10/13/10 1028 by Halima COOPERg n by King Calderón on 10/14/10 1005 Sign by: King Calderón :01 HgA1C , Office (34130) HgA1C , Office 6.7 % (Normal) Range: 4.6 - 7.1 :01 Blood Glucose , Office (07551) Blood Glucose , Office 163 (Normal) 22-Cfv-007247:39 CBCD,SMEAR DIFF RED CELL MORPH SeeNote {NORMAL} [...] 4.6-6.2 WBC 8.4 K/mm3 (Normal) Range: 4.4-11.0 45-Ywd-584074:39 COMP METABOLIC CL 102 mmol/L (Normal) Range: [...] mg/dL High Risk :57 HgA1C , Office (33362) HgA1C , Office 6.5 % (Normal) Range: 4.6 - 7.1 :57 Blood Glucose , Office (27987) Blood Glucose , Office 155 (Normal) :58 CREAT CLR 24H U Comments: STARTED URINE @8AM 8ENDED URINE @8AM 07/07 CREAT CLEARANCE 62 ml/min (Abnormal) Range: 100-200 EST GFR 46 mL/min (Abnormal) SERUM CREAT 1.6 mg/dL (Abnormal) Range: 0.8-1.3 URINE CREAT 98.2 mg/dL (Normal) UR TOTAL VOLUME 1475 mL (Normal) UR COLLECT TIME 24.0 {HOURS} (Normal) :58 PROU 24HR Comments: STARTED URINE @8AM /8ENDED URINE @8AM 07/07 24hr UR PROTEIN 177 [...] 136-145 GLU 107 mg/dL (Normal) Range: 70-110 28-Ple-36017:27 BMP CL 97 mmol/L (Abnormal) Range: 98-107 [...] 136-145 GLU 88 mg/dL (Normal) Range: 70-110 88-Bwi-913080:32 TESTICULAR (HP) Radiology Report See Note (Normal) Comments: Exam Number: [id number] CLINICAL:This is a 70-year-old male patient with [...] hydrocele. The testicles are unremarkable. Reported By: PEDICELLI,LOUIS 87-Hpg-944376:00 Urinalysis, Office (31455) UA - LEUKOCYTE ESTERASE Negative (Normal) UA - NITRITE Negative (Normal) URINE UROBILINGN CASPER TIMED Normal mg/dL (Normal) UA - PROTEIN 30 mg/dL (Normal) UA - PH 6.0 (Normal) Comments: 5.5 UA - BLOOD Negative (Normal) UA - SPECIFIC GRAVITY 1.025 (Normal) UA - KETONES Negative mg/dL (Normal) UA - BILIRUBIN Negative (Normal) UA - GLUCOSE Negative (Normal) 77-Wqw-57140:10 HgA1C , Office (37559) HgA1C , Office 5.5 % (Normal) Range: 4.6 - 7.1 :10 Blood Glucose , Office (47815) Blood Glucose , Office 176 (Normal) 37-Jhq-201510:38 ABDOMEN/PELVIS WITH CONTRAST Radiology Report See Note (Normal) Comments: Exam Number: [id number] CLINICAL:70-year-old male with abdominal pain CT ABDOMEN [...] adrenal gland. Reported By: KING CALDERÓN M.D. 56-Dgy-602515:00 CBCD ABSOLUTE NEUT 7.8 3/uL (Abnormal) Range: [...] 4.6-6.2 WBC 10.9 K/mm3 (Normal) Range: 4.4-11.0 37-Pnn-903023:00 COMP METABOLIC ALK P 57 U/L (Normal) [...] T PROT 8.1 g/dL (Normal) Range: 6.4-8.2 :0 VITAMIN B12 541 pg/mL (Normal) Range: 254-1320 [...] CHOL 141 mg/dL (Normal) Comments: <200 mg/dL Gtyjuvspn378-061 mg/dL Borderline>240 mg/dL High Risk :33 LIVER ALK P 53 U/L (Normal) Range: 50-136 ALT 25 U/L (Normal) Range: 12-78 D BILI 0.09 mg/dL (Normal) Range: 0.00-0.30 T BILI 0.30 mg/dL (Normal) Range: 0.00-1.00 ALB 3.9 g/dL (Normal) Range: 3.4-5.0 AST 23 U/L (Normal) Range: 15-37 T PROT 7.8 g/dL (Normal) Range: 6.4-8.2 :09 HgA1C , Office (60036) HgA1C , Office 6.6 % (Normal) Range: 4.6 - 7.1 :09 Blood Glucose , Office (43283) Blood Glucose , Office 243 (Normal) :38 [...] (Normal) Range: 4.4-11.0 :38 LIPID Comments: DR [facility] ORDERED LIPID LIVERDR BONEZZI ORDERED BMP MICROALB [...] CHOL 132 mg/dL (Normal) Comments: <200 mg/dL Bkqhbglbc181-871 mg/dL Borderline>240 mg/dL High Risk :38 LIVER [...] PSA Range: 0.0-4.0 :10 HgA1C , Office (36299) HgA1C , Office 6.1 % (Normal) Range: 4.6 - 7.1 :10 Blood Glucose , Office (98510) Blood Glucose , Office 172 (Normal) 88-Gut-119210:00 LIPID CHOL 150 mg/dL (Normal) Comments: <200 [...] mg/dL VLDL 58 mg/dL (Abnormal) Range: 5-40 28-Xzv-661216:00 LIVER ALB 4.0 g/dL (Normal) Range: 3.4-5.0 [...] mg/dL (Normal) :38 Blood Glucose , Office (66509) Blood Glucose , Office 163 (Normal) :38 HgA1C , Office (04918) HgA1C , Office 6.0 % (Normal) Range: [...] (Normal) Range: 0.0-4.0 :06 HgA1C , Office (45655) HgA1C , Office 5.9 % (Normal) Range: 4.6 - 7.1 :06 Blood Glucose , Office (67563) Blood Glucose , Office 157 (Normal) 76-Sfe-825223:50 METABOLIC PANEL, COMPREHENSIVE Comments: PATIENT NOT FASTINGPERFORMED BY: LabCoCentraState Healthcare SystemEnjwys3881 [facility] [id number] (11137) A/G Ratio 1.6 (Normal) Range: 1.1-2.5 Albumin, [...] Serum 102 mg/dL (Abnormal) Range: 65-99 If -Polish >59 mL/min/1.73 Comments: Note: Persistent reduction for [...] Sodium, Serum 143 mmol/L (Normal) Range: 135-145 :50 CBC WITH MANUAL DIFF (75034) Comments: PATIENT NOT FASTINGClinical Information: ADD DRAW FEE 538806 ADD J [id number] PERFORMED BY: SLAVA LabCoCentraState Healthcare SystemJvqcxw9333 [facility] [id number] Baso (Absolute) 0.0 {x10E3/uL} (Normal) Range: 0.0-0.2 [...] (Normal) Range: 4.0-10.5 :11 HgA1C , Office (97585) HgA1C , Office 5.6 % (Normal) Range: 4.6 - 7.1 :11 Blood Glucose , Office (27714) Blood Glucose , Office 101 (Normal) :55 HgA1C , Office (18216) HgA1C , Office 5.9 % (Normal) Range: 4.6 - 7.1 :55 Blood Glucose , Office (40215) Blood Glucose , Office 104 (Normal) 4-Gcw-998259:23 Billing Information Required Comments: TEST(S) ORDERED: 727781-Kcrubmna-Fepvodrb Ag, SerumPATIENT NOT FASTINGPERFORMED BY: SLAVA Carvalho6370 [facility] [id number] Highest Level of SPRCS Comments: Information Submitted: NOT GIVENPlease Provide: Diagnosis Code, Signs or Symptoms in ICD9 format at the highest level of specificity.Updated/Corrected Information: Specificity (Normal) __Physician/Designee Signature: Date: 5-Kfn-307485:23 Billing Information Required Comments: TEST(S) ORDERED: 051540-Qvarlkpe-Rtuvbuwk Ag, SerumPATIENT NOT FASTINGClinical Information: ADD DRAW FEE [id number] ADD J [id number] PERFORMED BY: SLAVA Carvalho6 370 [facility] [id number] SPRCS SPRCS (Normal) Comments: To enable [facility] to file an insurance claim on behalf of yourpatient, please provide or update as indicated the required billinginformation listed below. The HIPAA Privacy regulation at 45 UGI069.506 (c) (3) provides that a covered entity (Physician's Office/Referring Provider) may disclose PHI to another covered entity([facility]) for purposes of payment without patient authorization. .Please provide requested information and return via your servicerepresentative or fax to [phone] within 3 days. 8-Cwy-942009:23 PSA (PROSTATE SPECIFIC Comments: PATIENT NOT FASTINGClinical Information: ADD DRAW FEE [id number] ADD J [id number] PERFORMED BY: SLAVA LabCoCentraState Healthcare SystemRodoaq1624 [facility] [id number] ANTIGEN) (V76.44) Prostate Specific Ag, Serum 1.1 ng/mL (Normal) Range: 0.0-4.0 Comments: [employer] ([employer] ICMA methodology. .EFFECTIVE March 30, 2008, PSA will be changing to the Erik ECLIA methodology. R ebaselining will be offered for 90 days using panel 884281. The second result, provided by the [employer]ail ICMA methodology will be provided at no charge. 2-Lib-790971:19 HgA1C , Office (49896) HgA1C , Office 6.1 % (Normal) Range: 4.6 - 7.1 :19 Blood Glucose , Office (73890) Blood Glucose , Office 248 (Normal) :23 [...] 228.3 mg/dL (Normal) :51 HgA1C , Office (53635) HgA1C , Office 5.7 % (Normal) Range: 4.6 - 7.1 Comments: :51 Blood Glucose , Office (71556) Blood Glucose , Office 197 (Normal) Comments: eriberto :41 TROPONIN-I 0.04 ng/mL (Normal) Comments: TROPONIN-I EXPECTED VALUES < 0.50 NEGATIVE 0.50 - 1.49 INDETERMINANT > OR = 1.50 SUGGEST LA :40 BMP Comments: COMMENTS: BONEZZIINDICATE CK '1', [...] 1.49 INDETERMINANT > OR = 1.50 SUGGEST LA :41 BMP BUN 19 mg/dL (Abnormal) Range: [...] 1.49 INDETERMINANT > OR = 1.50 SUGGEST LA :30 PROTEIN,UR.RAN. 22.8 mg/dL (Abnormal) Comments: HOLD [...] AMI > 5 > 4 :10 SPE [id number] A/G RATIO 1.2 (Normal) Range: 0.7-2.0 ALBUMIN [...] Evidenceof monoclonal protein is not apparent.Performed At: [address] [id number] M-SPIKE SeeNote g/dL (Normal) Comments: Result: Not Observed NOTE: Comment (Normal) Comments: Protein electrophoresis scan will follow via mail orcourier. PROTEIN,TOTAL 6.9 g/dL (Normal) Range: 6.0-8.5 :10 TROPONIN-I < 0.04 ng/mL (Normal) Comments: INDICATE CK '1', '2', '3', OR 'R' FOR RANDOM: 2 Comments: TROPONIN-I EXPECTED VALUES < 0.50 NEGATIVE 0.50 - 1.49 INDETERMINANT > OR = 1.50 SUGGEST LA :50 PRO TIME INR 1.0 (Normal) PROTIME 12.2 s (Normal) Range: 10.6-13.2 :50 TROPONIN-I < 0.04 ng/mL (Normal) Comments: TROPONIN-I EXPECTED VALUES < 0.50 NEGATIVE 0.50 - 1.49 INDETERMINANT > OR = 1.50 SUGGEST LA :08 SHONDA 38 U/L (Normal) Comments: COMMENTS: 6 DR NÚÑEZ Range: 25-115 :08 B-TYPE JUSTIN PEP 143.0 pg/mL (Abnormal) Comments: COMMENTS: 6 DR NÚÑEZ :08 CBCD Comments: COMMENTS: RM Marley CAMPOS NIYA BASO% 0.4 % (Normal) Range: 0-1 EO% [...] :08 COMP METABOLIC Comments: COMMENTS: RM 6 NIYA A/G 1.0 {RATIO} (Normal) Range: 0.9-2.4 ALB [...] D BILI 0.10 mg/dL (Normal) Comments: COMMENTS: Marley DR NÚÑEZ Range: 0.00-0.30 :08 LIPASE 205 U/L (Normal) Comments: COMMENTS: Marley DR NÚÑEZ Range: 114-286 :08 TROPONIN-I < 0.04 ng/mL (Normal) Comments: COMMENTS: Marley DR NÚÑEZ Comments: TROPONIN-I EXPECTED VALUES < 0.50 NEGATIVE 0.50 - 1.49 INDETERMINANT > OR = 1.50 SUGGEST LA :30 CHEST WITHOUT CONTRAST Radiology Report See Note (Normal) Comments: Exam Number: [id number] CT HIGH RESOLUTION OF CHEST WITHOUT CONTRAST [...] DENISSE URIAS M.D. :13 HgA1C , Office (96623) HgA1C , Office 6.5 % (Normal) Range: 4.6 - 7.1 :13 Blood Glucose , Office (91050) Blood Glucose , Office 124 (Normal) :59 [...] Report See Note (Normal) Comments: Exam Number: [id number] PA AND LATERAL CHEST HISTORY Being done for cough. FINDINGSCardiac configuration is normal. No acute infiltrate, effusion, orpneumothorax is identified. There is a pacema ker noted in the leftanterior chest. No abnormality is noted in the leads as demonstrated. IMPRESSION1. No acute change noted in the lungs. 2. Little if any change from 09/04/06. Reported By: AMANDO NANCE M.D. 2-Ufe-595634:00 C DIF See Note (Normal) Comments: C. [...] (Normal) Range: 5-40 :35 HgA1C , Office (67833) HgA1C , Office 5.6 % (Normal) Range: [...] - 1.0 :39 Blood Glucose , Office (69399) Blood Glucose , Office 161 (Normal) :39 HgA1C , Office (13863) HgA1C , Office 5.7 % (Normal) Range: [...] swelling : Follow [facility] with [facility] Indication: Leg swelling RLS (restless legs [...] : Follow up in 2 weeks with [facility] or [facility] Indication: Diabetes mellitus type II, [...] Wheezing Planned Observations CBC WITH MANUAL DIFF (82892)Indication: CKD (chronic kidney disease), stage 3 (moderate) On: 02-Jan-2021 Request Comments: standing order q 3 months MAGNESIUM (78810)Indication: CKD (chronic kidney disease), stage 3 (moderate) On: 02-Jan-2021 Request Comments: standing order q 3 months PARATHORMONE (03826)Indication: CKD (chronic kidney disease), stage 3 (moderate) On: 02-Jan-2021 Request Comments: standing order q 3 months PHOSPHORUS (50279)Indication: CKD (chronic kidney disease), stage 3 (moderate) On: 02-Jan-2021 Request Comments: standing order q 3 months Renal function Panel (27321)Indication: CKD (chronic kidney disease), stage 3 (moderate) On: 02-Jan-2021 Request Comments: standing order q 3 months CBC WITH MANUAL DIFF (39192)Indication: CKD (chronic kidney disease), stage 3 (moderate) On: 04-Oct-2020 Request Comments: standing order q 3 months MAGNESIUM (50131)Indication: CKD (chronic kidney disease), stage 3 (moderate) On: 04-Oct-2020 Request Comments: standing order q 3 months PARATHORMONE (14453)Indication: CKD (chronic kidney disease), stage 3 (moderate) On: 04-Oct-2020 Request Comments: standing order q 3 months PHOSPHORUS (37138)Indication: CKD (chronic kidney disease), stage 3 (moderate) On: 04-Oct-2020 Request Comments: standing order q 3 months Renal function Panel (53832)Indication: CKD (chronic kidney disease), stage 3 (moderate) On: 04-Oct-2020 Request Comments: standing order q 3 months CBC WITH MANUAL DIFF (36257)Indication: CKD (chronic kidney disease), stage 3 (moderate) On: 06-Jul-2020 Request Comments: standing order q 3 months MAGNESIUM (91438)Indication: CKD (chronic kidney disease), stage 3 (moderate) On: 06-Jul-2020 Request Comments: standing order q 3 months PARATHORMONE (10833)Indication: CKD (chronic kidney disease), stage 3 (moderate) On: 06-Jul-2020 Request Comments: standing order q 3 months PHOSPHORUS ([id number])Indication: CKD (chronic kidney disease), stage 3 (moderate) On: 06-Jul-2020 Request Comments: standing order q 3 months Renal function Panel (05650)Indication: CKD (chronic kidney disease), stage 3 (moderate) On: 06-Jul-2020 Request Comments: standing order q 3 months CBC WITH MANUAL DIFF (72164)Indication: CKD (chronic kidney disease), stage 3 (moderate) On: 07-Apr-2020 Request Comments: standing order q 3 months MAGNESIUM (10606)Indication: CKD (chronic kidney disease), stage 3 (moderate) On: 07-Apr-2020 Request Comments: standing order q 3 months PARATHORMONE (51345)Indication: CKD (chronic kidney disease), stage 3 (moderate) On: 07-Apr-2020 Request Comments: standing order q 3 months PHOSPHORUS ([id number])Indication: CKD (chronic kidney disease), stage 3 (moderate) On: 07-Apr-2020 Request Comments: standing order q 3 months Renal function Panel ([id number])Indication: CKD (chronic kidney disease), stage 3 (moderate) On: 07-Apr-2020 Request Comments: standing order q 3 months CBC WITH MANUAL DIFF (29905)Indication: CKD (chronic kidney disease), stage 3 (moderate) On: 08-Jan-2020 Request Comments: standing order q 3 months MAGNESIUM (78704)Indication: CKD (chronic kidney disease), stage 3 (moderate) On: 08-Jan-2020 Request Comments: standing order q 3 months PARATHORMONE (54746)Indication: CKD (chronic kidney disease), stage 3 (moderate) On: 08-Jan-2020 Request Comments: standing order q 3 months PHOSPHORUS ([id number])Indication: CKD (chronic kidney disease), stage 3 (moderate) On: 08-Jan-2020 Request Comments: standing order q 3 months Renal function Panel (70392)Indication: CKD (chronic kidney disease), stage 3 (moderate) On: 08-Jan-2020 Request Comments: standing order q 3 months CBC WITH MANUAL DIFF ([id number])Indication: CKD (chronic kidney disease), stage 3 (moderate) On: 10-Oct-2019 Request Comments: standing order q 3 months MAGNESIUM ([id number])Indication: CKD (chronic kidney disease), stage 3 (moderate) On: 10-Oct-2019 Request Comments: standing order q 3 months PARATHORMONE ([id number])Indication: CKD (chronic kidney disease), stage 3 (moderate) On: 10-Oct-2019 Request Comments: standing order q 3 months PHOSPHORUS ([id number])Indication: CKD (chronic kidney disease), stage 3 (moderate) On: 10-Oct-2019 Request Comments: standing order q 3 months Renal function Panel ([id number])Indication: CKD (chronic kidney disease), stage 3 (moderate) On: 10-Oct-2019 Request Comments: standing order q 3 months CBC WITH MANUAL DIFF ([id number])Indication: CKD (chronic kidney disease), stage 3 (moderate) On: 12-Jul-2019 Request Comments: standing order q 3 months MAGNESIUM ([id number])Indication: CKD (chronic kidney disease), stage 3 (moderate) On: 12-Jul-2019 Request Comments: standing order q 3 months PARATHORMONE (03625)Indication: CKD (chronic kidney disease), stage 3 (moderate) On: 12-Jul-2019 Request Comments: standing order q 3 months PHOSPHORUS (38410)Indication: CKD (chronic kidney disease), stage 3 (moderate) On: 12-Jul-2019 Request Comments: standing order q 3 months Renal function Panel ([id number])Indication: CKD (chronic kidney disease), stage 3 (moderate) On: 12-Jul-2019 Request Comments: standing order q 3 months CBC WITH MANUAL DIFF ([id number])Indication: CKD (chronic kidney disease), stage 3 (moderate) On: 13-Apr-2019 Request Comments: standing order q 3 months MAGNESIUM ([id number])Indication: CKD (chronic kidney disease), stage 3 (moderate) On: 13-Apr-2019 Request Comments: standing order q 3 months PARATHORMONE ([id number])Indication: CKD (chronic kidney disease), stage 3 (moderate) On: 13-Apr-2019 Request Comments: standing order q 3 months PHOSPHORUS ([id number])Indication: CKD (chronic kidney disease), stage 3 (moderate) On: 13-Apr-2019 Request Comments: standing order q 3 months Renal function Panel ([id number])Indication: CKD (chronic kidney disease), stage 3 (moderate) On: 13-Apr-2019 Request Comments: standing order q 3 months CBC WITH MANUAL DIFF ([id number])Indication: CKD (chronic kidney disease), stage 3 (moderate) On: 13-Jan-2019 Request Comments: standing order q 3 months MAGNESIUM ([id number])Indication: CKD (chronic kidney disease), stage 3 (moderate) On: 13-Jan-2019 Request Comments: standing order q 3 months PARATHORMONE ([id number])Indication: CKD (chronic kidney disease), stage 3 (moderate) On: 13-Jan-2019 Request Comments: standing order q 3 months PHOSPHORUS ([id number])Indication: CKD (chronic kidney disease), stage 3 (moderate) On: 13-Jan-2019 Request Comments: standing order q 3 months Renal function Panel ([id number])Indication: CKD (chronic kidney disease), stage 3 (moderate) On: 13-Jan-2019 Request Comments: standing order q 3 months CBC WITH MANUAL DIFF ([id number])Indication: CKD (chronic kidney disease), stage 3 (moderate) On: 15-Oct-2018 Request Comments: standing order q 3 months MAGNESIUM ([id number])Indication: CKD (chronic kidney disease), stage 3 (moderate) On: 15-Oct-2018 Request Comments: standing order q 3 months PARATHORMONE ([id number])Indication: CKD (chronic kidney disease), stage 3 (moderate) On: 15-Oct-2018 Request Comments: standing order q 3 months PHOSPHORUS ([id number])Indication: CKD (chronic kidney disease), stage 3 (moderate) On: 15-Oct-2018 Request Comments: standing order q 3 months Keppra ([id number])Indication: Seizure On: 93-Lug-122124:02 Request Comments: send all labs stat TSH ([id number])Indication: Cardiac dysrhythmia On: 45-Pik-43674:40 Request Troponin I (39311)Indication: Episode of syncope On: 45-Cyb-44161:39 Request BNTP (16617)Indication: Episode of syncope On: 13-Fhg-37082:39 Request CBC (Auto) (03922)Indication: Episode of syncope On: :38 Request Metabolic Panel, Comprehensive (69157)Indication: Episode of syncope On: :38 Request Keppra (46519)Indication: Seizure On: 52-Jdl-591036:57 Request Comments: all copies to Dr. jung CBC WITH MANUAL DIFF ([id number])Indication: CKD (chronic kidney disease), stage 3 (moderate) On: 60-Ril-390025:57 Request Comments: standing order q 3 months PHOSPHORUS (85531)Indication: CKD (chronic kidney disease), stage 3 (moderate) On: 45-Jys-618392:57 Request Comments: standing order q 3 months PARATHORMONE (51910)Indication: CKD (chronic kidney disease), stage 3 (moderate) On: 47-Hiw-901443:57 Request Comments: standing order q 3 months Renal function Panel (44909)Indication: CKD (chronic kidney disease), stage 3 (moderate) On: 01-Cbb-904953:57 Request Comments: standing order q 3 months MAGNESIUM (40131)Indication: CKD (chronic kidney disease), stage 3 (moderate) On: 17-Jul-2018 Request Comments: standing order q 3 months Metabolic Panel, Basic (22599)Indication: Hypertension On: 13-Won-409376:34 Request Platelet 41916 (citrate, nonclumping tube)Indication: Thrombocytopenia On: 45-Zmm-464071:25 Request Keppra (69608)Indication: Generally unsteady On: 67-Ypb-044312:20 Request Comments: Dr. Jung copy to him Methymalonic Acid, Serum (31790)Indication: CKD (chronic kidney disease), stage 3 (moderate) On: 54-Dst-33388:35 Request Vitamin B-12 (cyanocobalamin) (32993)Indication: CKD (chronic kidney disease), stage 3 (moderate) On: :35 Request FIBRIN DEGRAD SLIDE AGGL (42498)Indication: Abnormal platelet aggregation On: :19 Request LDH (LD) (LACTATE DEHYDROGENASE) ([id number])Indication: Abnormal platelet aggregation On: :13 Request Platelet Count (55453)Indication: Abnormal platelet aggregation On: :12 Request Comments: PLEASE DRAW IN CITRATE TUBE Renal function Panel (44408)Indication: Hypotension, postural On: :46 Request CBC, Platelets & Auto Diff (99374)Indication: Hypotension, postural On: :45 Request Troponin I (60812)Indication: Hypotension, postural On: :45 Request TSH (60781)Indication: Hypotension, postural On: :43 Request PHOSPHORUS ([id number])Indication: CKD (chronic kidney disease), stage 3 (moderate) On: 63-Cku-904796:23 Request Comments: standing order q 3 months Troponin I (77147)Indication: History of CHF (congestive heart failure) On: 91-Tlg-931326:54 Request Renal function Panel (96912)Indication: History of CHF (congestive heart failure) On: 00-Okb-399515:54 Request TSH ([id number])Indication: Hypothyroid On: 21-Bee-632375:50 Request METABOLIC PANEL, COMPREHENSIVE (89044)Indication: Diabetes mellitus with chronic kidney disease On: 68-Qbv-906275:50 Request MICROALBUMIN: CREATININE RATIO (70559) AND ([id number])Indication: CKD (chronic kidney disease), stage 3 (moderate) On: :41 Request Comments: copy to Dr. Murcia [phone] Parathyroid Hormone-related Peptide (PTH-rP) (60291)Indication: CKD (chronic kidney disease), stage 3 (moderate) On: :41 Request Comments: copy to Dr. Murcia [phone] URINALYSIS, W/ MICRO ([id number])Indication: Diabetes mellitus with chronic kidney disease On: :47 Request Comments: 07-15 METABOLIC PANEL, COMPREHENSIVE (81207)Indication: Diabetes mellitus with chronic kidney disease On: :47 Request Comments: 07-15 LIPOPROTEIN, BLD, BY NMR ([id number])Indication: Diabetes mellitus with chronic kidney disease On: :46 Request Comments: 07-15 CBC with auto diff (57242)Indication: Diabetes mellitus with chronic kidney disease On: :46 Request Comments: 07-15 ANCA-P (ANTI NEUTROPHIL CYTOPLASMIC ANTIBODY)Indication: CKD (chronic kidney disease), stage 3 (moderate) On: :38 Request PSA (PROSTATE SPECIFIC ANTIGEN) (V76.44)Indication: Screening for prostate cancer On: 19-Yrx-996068:13 Request Comments: 06-14 PARATHORMONE (79894)Indication: CKD (chronic kidney disease), stage 3 (moderate) On: :51 Request Magnesium (35501)Indication: CKD (chronic kidney disease), stage 3 (moderate) On: :51 Request CALCIFIDIOL (66793) VIT D 25Indication: CKD (chronic kidney disease), stage 3 (moderate) On: :51 Request Total Protein,24 Hour Urine (85668)Indication: CKD (chronic kidney disease), stage 3 (moderate) On: :50 Request CREATININE CLEARANCE ([id number])Indication: CKD (chronic kidney disease), stage 3 (moderate) On: :50 Request Metabolic Panel, Basic (33391)Indication: Cardiomyopathy On: :30 Request Comments: 2 weeks METABOLIC PANEL, COMPREHENSIVE (63536)Indication: Hypertension On: :30 Request Comments: in three months (approximately) CBC with auto diff (72932)Indication: Hypertension On: :29 Request Comments: in three months (approximately) METABOLIC PANEL, BASIC (37833)Indication: Diabetes mellitus with chronic kidney disease On: :05 Request Comments: recheck in 2 wks HGB A1C (85636)Indication: Diabetes mellitus with chronic kidney disease On: :01 Request MAGNESIUM (84180)Indication: Hypomagnesemia On: 55-Qdc-72903:53 Request LIPID PANEL (74292)Indication: Hypertension On: :53 Request Comments: copy to Dr. harmon TSH ([id number])Indication: Hypothyroid On: :53 Request METABOLIC PANEL, COMPREHENSIVE ([id number])Indication: Hypertension On: :53 Request CBC with auto diff (58687)Indication: Hypertension On: :52 Request CBC (Auto) ([id number])Indication: Hypertension On: 24-Bxg-712711:44 Request Comments: in three months (approximately) Renal function Panel ([id number])Indication: Hypertension On: 80-Tbm-197224:44 Request Comments: in three months (approximately) Metabolic Panel, Basic (02323)Indication: Hypertension On: 98-Jlz-108262:30 Request METABOLIC PANEL, BASIC (97804)Indication: Hypertension On: 30-Yjv-41756:37 Request Comments: Forward to Val Almeiad at [facility] at fax [phone] also PSA (PROSTATE SPECIFIC ANTIGEN) (V76.44)Indication: Encounter for health maintenance examination with abnormal findings On: 85-Qal-500940:11 Request Comments: due 07-12 MICROALBUMIN: CREATININE RATIO (33203) AND ([id number])Indication: Diabetic nephropathy On: 6-Opn-934893:39 Request METABOLIC PANEL, COMPREHENSIVE ([id number])Indication: Diabetes mellitus type II, controlled On: 9-Ler-250931:39 Request URINALYSIS, W/ MICRO ([id number])Indication: Diabetes mellitus type II, controlled On: :56 Request METABOLIC PANEL, COMPREHENSIVE ([id number])Indication: Diabetes mellitus type II, controlled On: :56 Request CBC WITH MANUAL DIFF ([id number])Indication: Diabetes mellitus type II, controlled On: :56 Request HgA1C , Office ([id number])Indication: Diabetes mellitus type II, controlled On: :19 Request Metabolic Panel, Basic ([id number])Indication: Cardiomyopathy On: :01 Request LIPID PANEL ([id number])Indication: Diabetes mellitus with chronic kidney disease On: :30 Request METABOLIC PANEL, COMPREHENSIVE ([id number])Indication: Diabetes mellitus with chronic kidney disease On: :30 Request CBC WITH MANUAL DIFF (41563)Indication: Diabetes mellitus with chronic kidney disease On: :30 Request Comments: copy Dr. hu CREATININE CLEARANCE (43401)Indication: Renal insufficiency On: :06 Request 24 hour urine for Protein ([id number])Indication: Renal insufficiency On: :06 Request Metabolic Panel, Basic (64098)Indication: Renal insufficiency On: :05 Request Metabolic Panel, Basic ([id number])Indication: Renal insufficiency On: 38-Ghh-826702:03 Request Urinalysis, Office (14137)Indication: Cystitis, acute On: 09-Pdg-193977:37 Request URINE LIBORIO CULTURE-CASPER COL COUNT (66005)Indication: Cystitis, acute On: :37 Request CBC, Platelets & Auto Diff ([id number])Indication: Cramp in limb On: :44 Request Vitamin B-12 (cyanocobalamin) (10598)Indication: Cramp in limb On: :44 Request Metabolic Panel, Comprehensive (13401)Indication: Cramp in limb On: 26-Yun-465290:44 Request METABOLIC PANEL, COMPREHENSIVE ([id number])Indication: Diabetes mellitus type II, controlled On: 0-Lpb-649247:50 Request LIPID PANEL ([id number])Indication: Diabetes mellitus type II, controlled On: 2-Wnq-389666:50 Request Comments: in three months (approximately) PSA (PROSTATE SPECIFIC ANTIGEN) (V76.44)Indication: Diabetes mellitus type II, controlled On: :30 Request CBC WITH MANUAL DIFF ([id number])Indication: Diabetes mellitus type II, controlled On: :29 Request MICROALBUMIN: CREATININE RATIO (63921) AND ([id number])Indication: Diabetes mellitus type II, controlled On: :29 Request Metabolic Panel, Basic ([id number])Indication: Diabetes mellitus type II, controlled On: :29 Request MICROALBUMIN: CREATININE RATIO ([id number]) AND ([id number])Indication: Diabetes mellitus type II, controlled On: 73-Vgo-904687:53 Request METABOLIC PANEL, COMPREHENSIVE (65773)Indication: Diabetes mellitus type II, controlled On: 84-Yje-371671:53 Request LIPID PANEL ([id number])Indication: Diabetes mellitus type II, controlled On: 84-Nhy-396613:53 Request CBC WITH MANUAL DIFF ([id number])Indication: Diabetes mellitus type II, controlled On: 95-Aij-958287:53 Request Comments: in three months (approximately) PSA (PROSTATE SPECIFIC ANTIGEN) (V76.44)Indication: Well Male On: :32 Request MICROALBUMIN: CREATININE RATIO (63740) AND (65174)Indication: Diabetes mellitus type II, controlled On: :32 Request METABOLIC PANEL, COMPREHENSIVE (97887)Indication: Diabetes mellitus type II, controlled On: : Request CBC WITH MANUAL DIFF ([id number])Indication: Diabetes mellitus type II, controlled On: : Request LIPID PANEL ([id number])Indication: Diabetes mellitus type II, controlled On: :32 Request URINALYSIS W/O MICRO ([id number])Indication: Cardiomyopathy On: :22 Request Metabolic Panel, Basic ([id number])Indication: Hypertension On: 04-Fir-427806:12 Request Comments: sept CBC (Auto) ([id number])Indication: Diabetes mellitus type II, controlled On: 1-Lkr-340066:10 Request Metabolic Panel, Comprehensive ([id number])Indication: Diabetes mellitus type II, controlled On: 2-Pgd-835360:10 Request MICROALBUMIN: CREATININE RATIO ([id number]) AND ([id number])Indication: Diabetes mellitus type II, controlled On: :12 Request CBC WITH MANUAL DIFF ([id number])Indication: Diabetes mellitus type II, controlled On: 9-Laq-083262:12 Request Comments: in three months (approximately) METABOLIC PANEL, COMPREHENSIVE (49634)Indication: Diabetes mellitus type II, controlled On: 6-Oep-115086:12 Request LIPID PANEL (91514)Indication: Hypertension On: :08 Request METABOLIC PANEL, COMPREHENSIVE (38339)Indication: Hypertension On: :08 Request METABOLIC PANEL, BASIC (10453)Indication: Acute renal failure, unspecified acute renal failure type On: :01 Request Comments: with next blood draw PSA (PROSTATE SPECIFIC ANTIGEN) (94108)Indication: Encounter for health maintenance examination with abnormal findings On: :55 Request Comments: after 09-20-06 MICROALBUMIN 24 HOUR OR RANDOM ([id number])Indication: DIABETIC NEPHROPATHY On: :49 Request CREATININE CLEARANCE ([id number])Indication: DIABETIC NEPHROPATHY On: :49 Request Planned Encounters Medical; VIJack assisted visit - On: 07-Nov-2018 15:30 [facility] Anabella Núñez MD, MD, Dana M Planned Procedures ELECTROCARDIOGRAM, COMPLETE (ECG) On: 17-Sep-2018 Intent (54345)By: Anabella Núñez MD Comments: see scanned document of test done to see results reviewed today with patient Anabella ROGERS INFUSION OF 0.9% SODIUM CHLORIDE On: 25-Apr-2018 Intent SOLUTION (55886)By: Anabella Núñez MD Comments: lot:[id number]:IV right anticub dose:250ccgiven by:aaliyah KAMARA ABN signedER, METAL WEATHER STRIPPER Anabella Núñez MD ELECTROCARDIOGRAM, COMPLETE (ECG) On: 25-Apr-2018 Intent (62093)By: Anabella Núñez MD Comments: see scanned document of test done to see results reviewed today with patient Anabella ROGERS INFUSION, NORMAL SALINE SOLUTION , On: 18-Jan-2018 Intent 1000 CC (Special Coverage Instructions Comments: lot:[id number]/15rte:IV dose: 500ml sodium chloride given by: aaliyah left fore arm ABN signedER, METAL WEATHER STRIPPER Apply. See [facility]: 2048) (J7030)By: Anabella Núñez MD, MD, Dana M Radiology - Chest- PA and LatBy: Fast On: 09-Jan-2018 Intent Delisa BARFIELD Comments: stat call results Spirometry ([id number])By: Delisa Gordon DO On: 06-Jun-2017 Intent A Comments: good effort and curve with decrease in small airways Radiology - Chest- PA and LatBy: Fast On: 06-Jun-2017 Intent Delisa BARFIELD Comments: stat call rsutls Ultrasound - RenalBy: Anabella Núñez MD On: 06-Sep-2016 Intent Anabella Tirado MD Aerosol Treatment ([id number])By: Mynor On: 15-Feb-2016 Intent AYAD Simona Radiology - ChestBy: Daria Lowe CNP On: 13-Sep-2015 Intent Solu -Medrol Injection, 125 mg On: 13-Sep-2015 Intent (J2930)By: Mynor LION Simona Comments: lot:[id number]:12/2017route:IMdose:125mgsite:R realDSMA Carmela Aerosol Treatment (54658)By: Mynor On: 13-Sep-2015 Intent AYAD Simona Comments: patient tolerated well Aerosol Treatment (29052)By: Niya On: 07-Sep-2015 Intent Anabella ROGERS MD, Dana M Prevnar 13 (35961)By: Niya ROGERS, On: 16-Oct-2014 Intent Anabella Turcios MD ADMINISTRATION OF INFLUENZA VIRUS On: 04-Aug-2014 Intent VACCINE (G0008)By: Visit, Nurse Comments: Lot #[id number]-L dltd, IMDose prefilled syringegiven by:jmVIS and ABN signed FLU VAC, SPLIT, >3 YEARS, INTRAMUSC On: 04-Aug-2014 Intent (79506)By: Visit, Nurse Radiology - ChestBy: Anabella Núñez MD On: 20-Jan-2014 Intent Anabella Tirado MD Aerosol Treatment (04590)By: Niya On: 20-Jan-2014 Intent Anabella ROGERS MD, Dana M Eprescribed prescriptions (G8553)By: On: 20-Jan-2014 Intent Anabella Núñez MD, MD, Dana M FLU VAC, SPLIT, >3 YEARS, INTRAMUSC On: 10-Jul-2013 Intent (26379)By: MATILDA Hernandez Comments: Lot #:[id number] date:04.11Amount given:0.5mlRoute: IMSite given:L DltdGiven by: VIS and ABN signed ADMINISTRATION OF INFLUENZA VIRUS On: 10-Jul-2013 Intent VACCINE (G0008)By: MATILDA Hernandez Eprescribed prescriptions (G8553)By: On: 11-Dec-2012 Intent Delisa Gordon DO Pulse Oximetry (53275)By: Evan BARFIELD, On: 11-Dec-2012 Intent Delisa Monte Comments: 98 Spirometry (67920)By: Delisa Gordon DO On: 11-Dec-2012 Intent Lavell Comments: good effort and curve normal Radiology - Chest- PA and LatBy: Fast On: 11-Dec-2012 Delisa Pittman DO Comments: call wet read Eprescribed prescriptions (G8553)By: On: 18-Nov-2012 Intent La Nena Nicole DO TDAP VACCINE >7 IM (39708)By: David On: 20-Feb-2012 Intent MATILDA Comments: Lot #:[id number] date:72-42-24Iuibtu given:0.5mlRoute: IMSite given:right deltoid Given by: aaliyah kamara Pulse Oximetry (32249)By: Mynor LION, On: 17-Oct-2011 Intent Simona Aerosol Treatment (88560)By: Mynor On: 17-Oct-2011 Intent 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 YARD WORKER Simona FLU VAC, SPLIT, >3 YEARS, INTRAMUSC On: 08-Aug-2011 Intent (44688)By: Diana Caballero RN Comments: Lot #: [id number] date: 04/09Amount given: 0.5 mlRoute: IMSite given: left deltoidGiven by: BEKA Dc ADMINISTRATION OF INFLUENZA VIRUS On: 08-Aug-2011 Intent VACCINE (G0008)By: Diana Caballero RN Radiology - Hip - BilateralBy: Niya On: 13-Oct-2010 Intent Anabella ROGERS MD, Anabella Miller Spirometry (07970)By: Niya ROGERS, On: 13-Oct-2010 Intent Anabella Turcios MD Pulse Oximetry (39958)By: Niya ROGERS, On: 13-Oct-2010 Intent Anabella Turcios MD FLU VAC, SPLIT, >3 YEARS, INTRAMUSC On: 05-Sep-2010 Intent (56247)By: Dasha Ramirez LPN Comments: Lot #[id number]/11site-right deltoidgiven by:[facility] ADMINISTRATION OF INFLUENZA VIRUS On: 05-Sep-2010 Intent VACCINE (G0008)By: Dasha Ramirez LPN Renal DopplerBy: Anabella Núñez MD On: 23-May-2010 Intent Anabella Núñez MD Ultrasound - TesticularBy: Mynor LION, On: 10-May-[address] - Abdomen & Pelvis (IV Contrast On: 09-May-2010 Intent Needed)By: Daria Lowe CNP Comments: today call wet read to [facility] ADMINISTRATION OF INFLUENZA VIRUS On: 26-Jul-2009 Intent VACCINE (G0008)By: Anabella Núñez MD Comments: lot # [id number]- [id number]- 0.5ML Tolerated well Marybalbina Anabella Herndon MD FLU VAC, SPLIT, >3 YEARS, INTRAMUSC On: 26-Jul-2009 Intent (95273)By: Anabella Núñez MD, MD, Dana M EKG (47057)By: Gabriela Douglas On: 19-Jun-2008 Intent EsophagramBy: Anabella Núñez MD On: 20-Nov-2007 Intent Anabella Núñez MD Inhaler Demonstration (83022)By: On: 02-Oct-2007 Intent Daria Lowe CNP Pulse Oximetry (88419)By: Mynor LION, On: 02-Oct-2007 Intent Daria Otto Aerosol Treatment (82510)By: Mynor On: 02-Oct-2007 Intent Daria LION Six Minute Walk Assessment (66441)By: On: 27-Feb-2007 Intent Dhara Oquendo LPN Comments: ABN signed Inhaler Demo (15548)By: Delisa Gordon DO On: 18-Feb-2007 Intent A Pulse Oximetry (74669)By: DILSHAD LION, On: 31-Jan-2007 Intent MARIO Comments: 96% Aerosol Treatment (43059)By: DILSHAD On: 31-Jan-2007 Intent MARIO LION Solu- Medrol Injection, 125mg On: 31-Jan-2007 Intent (J2930)By: MARIO YUNG CNP Aerosol Treatment (63196)By: Evan BARFIELD, On: 28-Jan-2007 Intent Delisa Monte Inhaler Demo (84159)By: Delisa Gordon DO On: 28-Jan-2007 Intent A Radiology - Chest- PA and LatBy: Evan On: 28-Jan-2007 Intent Delisa BARFIELD Spirometry (09444)By: Delisa Gordon DO On: 28-Jan-2007 Intent Lavell Comments: good effort and curve- mild obstruction Pulse Oximetry (87171)By: Gene, On: 28-Jan-2007 Intent Rolanda Comments: ins waiver [id number] initially - after tx was 95 Planned Medications INFUSION, NORMAL SALINE SOLUTION , 1000 CC Ordered: 18-Jan-2018 Pending Niya ROGERS, Anabella Núñez MD, Anabella Miller INJECTION, METHYLPREDNISOLONE SODIUM SUCCINATE, UP TO 125 MG Ordered: 13-Sep-2015 Pending Daria Lowe CNP Instructions Name Dates Details BMI 30.0-30.9,adult : How to access health [...] for health maintenance examination with abnormal findings LA (myocardial infarction) : How to access health information online Indication: LA (myocardial infarction) LA (myocardial infarction) : How to access health information online - Detail Indication: LA (myocardial infarction) LA (myocardial infarction) : Patient Instructions Indication: LA (myocardial infarction) Allergic rhinitis : Patient Instructions [...] Acute sinusitis, unspecified Encounters Office Visit On: 23-Oct-2018 8:09 Encounter Diagnosis: [...] CHF (congestive heart failure), Abnormal laboratory test, LA (myocardial infarction) , Sensorineural hearing loss (SNHL) [...] Erectile dysfunction, Memory loss, Subdural hemorrhage, Nonsmoker, LA (myocardial infarction), Peripheral vascular disease, CKD (chronic [...] both ears, Memory loss, Abnormal laboratory test, LA (myocardial infarction), Erectile dysfunction, Peripheral vascular disease, [...] alcohol, Diabetes mellitus with chronic kidney disease, LA (myocardial infarction), Uncoordinated movements, Memory loss, Obesity, [...] Historical Summary On: 18-Apr-2017 9:33 Encounter Diagnosis: LA (myocardial infarction) End: 18-Apr-2017 9:36 Comprehensive Internal [...] syndrome), Uncoordinated movements, Hyperplasia, prostate, Macrocytosis, Hypertension, LA (myocardial infarction), Hypothyroid, Erectile dysfunction, Allergic rhinitis, [...] patient does h ave 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 The patient has noticed thinking most people are better off than them (due to heart concerns) and nothing from the geriatic depression scale. Other provide rs contributing to the patient's care are metal worker (moodispajoyce) and other: (Divina, kidney). Encounter Diagnosis: BMI 30.0-30.9,adult, Hyperplasia, prostate, LA (myocardial infarction), Allergic rhinitis, Macrocytosis, Cardiomyopathy, Obstructive [...] Testicular hypofunction, Hypothyroid, Erectile dysfunction, Allergic rhinitis, LA (myocardial infarction), Hyperplasia, prostate, Macrocytosis, Gum hyperplasia, [...] failure), Obesity, RLS (restless legs syndrome) , LA (myocardial infarction), Testicular hypofunction, Gum hyperplasia, BMI [...] - Reason for ER visit: note: (had LA in [place] ). The patient feels well with no complaints and has good energy level. Patient has been compliant with instructions. Current medicati End: 17-Mar-2016 13:29 on use: no side effects, compliant with dosing regimen and considered effective by patient. Patient sleeps 7 hours per night. Impact of disease: emotional impact-mild. Nutrition: balanced diet and suppl emental vitamins. 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 The patient has noticed lack of energy. Other providers contributing to the patient's care are metal worker (Fritz), gastrologist (Dr. Small ) and other: [...] Nutrition: balanced diet and supplemental vitamins. The wy dical issues the patient is following up [...] End: 03-Jul-2006 11:43 Payers [employer]/MedicareMAYRA GHOSH; lavell guarantor
--- OUTSIDE RECORDS SUMMARY | 2019-01-20 06:13 | XMS RPT_ITS | Continuity of Care Document ---
:1940 Author Organization [facility] Address [address] [place] [address] Phone Care Team Providers Name Role Phone [...] literature about in medical journals. look like burundian study that it did help. no side [...] M Start : 17-Aug-2017 Active Comments:changed from [facility] dc summary MagOx 400 400 (241.3 [...] : 13-Oct-2010 End : 07-Apr-2011 Inactive NYSTATIN, [id number]/GM (External Powder) 1 Powder bid for 0 [...] : 09-Mar-2011 End : 15-Aug-2011 Inactive ZOSTAVAX, 32079NUM/0.65ML (Subcutaneous Solution Reconstituted) 1 For Solution once [...] Quantity: 180 {Tablet} Refills: 3 Ordered:06-May-2007 MATILDA Hernnadez Start : 06-May-2007 End : 05-Dec-2007 Discontinued [...] for 0 days Refills: 0 Ordered:07-Feb-2007 Shonda eTllo Start : 07-Feb-2007 End : 07-Feb-2007 Discontinued [...] (M79.89, 729.81) Status: Resolved as of 25-Dec-2017 MS (myocardial infarction) (I21.9, 410.90) Comments: talk about get records. see what cath showed talk about fish oil await doing biomarker sn inflammatory markers ? VT related since cath [facility] blockage[facility] [place] had rafa st pain radiated down arm, and squad took him to hospital, told had MS, took off lasix, and put on bumex. [...] Dates Details CABG, USING 3 VENOUS GRAFTS (78728) Completed Comments: 1988, 10-08-02 (SVG to to LAD, SVG to right PDA, radial artery to OM-2) CARDIAC ABLATION (62738) Completed Comments: [facility] , [facility] 10-04-18 cholecytectomy 10-04 Completed CRANIOTOMY, EMERGENT, FOR SUBDURAL Completed HEMATOMA EVACUATION (96808) Comments: [facility] Completed Comments: stent 10-04 Left heart cath Completed Comments: [facility] Right and left coronary angiography, Saphenous vein with angiography hemostatsis with Mynx Dr. EstevesAclfakelmu28-0-64 Left Heart Cath [facility] DX: moderate to severe elevated LVEDP pacemaker Completed Comments: 2001, ICD, replaced 06-11 Total right hip replacement Completed Comments: [facility] 11-07-11 rec. 3 units PRBC's Date Value Details 04-Nov-2018 Cardiology Visit Report Result: Comments: See Note; NOTES: [facility] [address] [place] [address] OFFICE VISIT Date of Service: 11/04/18 MR#: [id number] Acct: [id number] Name: MAYRA GHOSH Rep #: [id number] : 1940 Provider: Amando Hu MD Age/Sex: 78/M Location: [facility] Status: Signed HPI HPI Details: MAYRA GHOSH, is a 78 M who presents to the office today for outpatient cardiovascular follow-up. He has recently been at [facility] as well as subsequently at [facility]. [...] at the time. He then returned to [facility] because of weakness. There were concerns [...] meq PO BID 11/04/18 [History Confirmed 11/04/18] [facility] Medical History HLD (hyperlipidemia) (Chronic) Non-ST e [...] (Chronic) Hypokalemia (Chronic) Atherosclerotic heart disease of [place] coronary artery without angina pectoris (Chronic) Ventricular [...] (Examined in the wheelchair) Nutritional Appearance: overweight Amonate ation: alert, awake and oriented x3 Head [...] disease involving eva nary bypass graft of [place] heart, angina presence unspecified I25.10 Plan He [...] (with PFM) 11/04/18 (copy of [facility] labs) Coding Level of Care Code Off vis,est,level 4 Diagnoses Atrial fibrillation I48.91 History of cardiac radiofrequency ablation (RFA) Z98.890 A utomatic implantable cardiac defibrillator in situ Z95.810 Coronary artery disease involving coronary bypass graft of [place] heart, angina presence unspecified I25.10 Postsurgical aortocoronary [...] artery disease involving coronary bypass graft of [place] heart, angina presence unspecified I25.10 Postsurgical aortocoronary [...] MD 04-Nov-2018 12 Lead EKG performed by [facility] Result: Comments: See Note; NOTES: [facility] [address] [place] [address] 12 Lead EKG performed by [facility] 11/04/18 1605 MR#: [id number] Acct: [id number] Name: MAYRA GHOSH Екатерина Rep #: [id number] : 1940 78 From: Amando Hu MD Attending Dr: Amando Hu MD Status: DEP [facility] Ordering Dr: Amando Hu MD Date: 11/04/18 Location: [facility] Sex: M C Admitted: O RDER #: [id number] [facility]/12 Lead EKG performed by [facility] ECG Report Interpretation Somatic / motion artifactElectronic ventricular pacemakerPacemaker ECG, No further analysis Electro nically signed on 11/04/2018 at 17:50 by Amando Hu Software Version 8610 11/04/18 1755 Date Amando Hu MD CC: Anabella Núñez MD Da te Dictated: 11/04/18 1605 Date Transcribed: 11/04/181604 Case Preparer And Liner: PM Signed 16-Oct-2018 Emergency Department Summary Result: Comments: See Note; NOTES: [facility] Medical Records Department [address] [place] [address] Emergency Department Summary 10/16/18 1348 MR#: [id number] Acct: [id number] Name: MAYRA GHOSH Rep #: [id number] : 1940 78 From: Darrel Bean MD PCP: Anabella Núñez MD Status: REG ER - ER Visit Summary Date of Service: 10/16/18 Chief Complaint: Cough and generalized weakn ess. History of Present Illness: The patient is a [address] of cardiomyopathy, V. tach, defibrillator, noncemented diabetes, renal insufficiency, CAD with prior double bypass. Recent ablation at [facility]. Prior intracranial bleed with surgical drainage. [...] significant concern he was discharged twice from [facility] and had to be readmitted. She [...] and CABG and cardiomyopa thy History of all-nunzrdb-oijjiladb diabetes History of renal insufficiency This note was generated with UPR-Online dictation software. It may contain incorrect words, [...] your Primary Care Provider. Call [facility] ([phone]) or report to the closest Emergency Room. Call 911 if necessary. 10/16/18 6577 <Electronically signed by Darrel Bean MD> Date Star Bean MD Cosigner Signature (If Indicated): Date CC: Anabella Núñez MD 16-Oct-2018 Chest 1 View (Portable) Result: Comments: See Note; NOTES: [facility] Imaging Services [address] [place] [address] Chest 1 View (Portable) MR#: [id number] Acct: [id number] Name: MIRELAMAYRA Екатерина Rep #: [id number] : 1940 M 78 From: Gene Jayshree BARFIELD PCP: Anabella Núñez MD Status: REG ER Study: Chest 1 View (Portable) Date of Exam: 10/16/18 Exam# [id number] Ordering Dr: Darrel Bean MD STUDY: X-RAY [...] CC: Anabella Núñez MD; Darrel Bean MD Case Preparer And Liner: Signed 30-Sep-2018 Chest 1 View (Portable) Result: Comments: See Note; NOTES: [facility] Imaging Services [address] [place] [address] Chest 1 View (Portable) MR#: [id number] Acct: [id number] Name: MAYRA GHOSH Rep #: [id number] : 1940 78 From: Nereyda Barr MD PCP: Anabella Núñez MD Status: REG ER Study: Chest 1 View (Portable) Date of Exam: 09/30/18 Exam# [id number] Ordering Dr: Jennifer Sibley MD STUDY: X-RAY [...] CC: MD Zelalem palma; Anabella Núñez MD Case Preparer And Liner: Signed 22-Sep-2018 History and Physical Exam Result: Comments: See Note; NOTES: [facility] Medical Records Department [address] [place] [address] History and Physical 09/22/18 0602 MR#: [id number] Acct: [id number] Name: JETHRO GHOSH Rep #: [id number] : 1940 78 From: Etta Grey PCP: [...] Qualifiers: Coronary Disease-Associated Artery/Lesion type: bypass graft Resighini vs. transplanted he art: win[place] heart Associated angina: angina presence unspecified Qualified Code(s): I25.810 - Atherosclerosis of coronary artery bypass graft(s) without angina pectoris (6) XOCHITL (obstructive sleep apnea ) Status: Chronic (7) Diabetes mellitus type 2, noninsulin dependent Status: Chronic (8) Atherosclerotic heart disease of [place] coronary artery without angina pectoris Status: Chronic Qualifiers: Justin mary vs. transplanted heart: [place]nebago heart Qualified Code(s): I25.10 - Atherosclerotic heart disease of [place] coronary artery without angina pectoris Comment: CABG [...] type II, XOCHITL who presents to the [facility] ED on 09/22/18 with history of [...] (Chronic) Hypokalemia (Chronic) Atherosclerotic heart disease of [place] coronary artery without angina pectoris (Chronic) CABG 1988; Reoperation CABG x3 SVG to LAD, SVG to Rt PDA, Radial artery to OM-2 10/08/02; VT ablation @[facility] 01/[facility]/17 [facility] 03/10/2016 Ventricular tachycardia (paroxysmal) (Chronic) ICD (implantable cardioverter-defibrillator) in place (Chronic 11/2001) Implant 12/10/2001 ICD replacement 06/10/2009, 06/05/2014, Systolic CHF, chronic (Chronic) Cardiomyopathy, ischemic (Chronic) CKD (chronic kidney disease), stage II (Chronic) Type I I diabetes mellitus, uncontrolled (Chronic) Esophageal reflux (Chronic) HLD (hyperlipidemia) (Chronic) HTN (hypertension) (Chronic) Hypothyroidism (Chronic) Sleep apnea (Chronic) Medical History: [facility] History (Last Reviewed 08/30/18 @ 13:48 [...] Hypokalemia (Chronic) E87.6 Atherosclerotic heart disease of [place] coronary artery without angina pectoris (Chronic) I25.10 CABG 1988; Reoperation CABG x3 SVG to LAD, SVG to Rt PDA, R adial artery to OM-2 10/08/02; VT ablation @[facility] 01/03/17 [facility] 03/10/2016 Ventricular tachycardia (paroxysmal) (Chronic) I47.2 ICD (implantable cardioverter- defibrillator) in place (Chronic) Onset Date: 0 11/2001 Z95.810 Implant 12/10/2001 ICD replacement 06/10/2009, 06/05/2014, Systolic CHF, chronic (Chronic) I50.22 Cardiomyopathy, ischemic (Chronic) I25.5 Subdural hematoma (Resolved) I62.00 CAD (coronary ar seabstian disease) (Inactive) I25.10 CHF (congestive heart failure) [...] II, XOCHITL who present s to the [facility] ED on 09/22/18 with history of [...] heparin. Code Visit OBSV E AND M: 69329 Initial observation care L3 09/22/18 0634 <Electronically signed by Etta Grey > Date Etta Grey Cosign er Signature: Date (if applicable) CC: Etta Grey; Anabella Núñez MD Signed 22-Sep-2018 Emergency Department Summary Result: Comments: See Note; NOTES: [facility] Medical Records Department [address] [place] [address] Emergency Department Summary 09/22/18 0619 MR#: [id number] Acct: [id number] Name: MAYRA GHOSH Rep #: [id number] : 1940 78 From: Juan C Winston [...] Epiploic appendagitis This note was generated with UPR-Online dictation software. It may contain incorrect words, spelling, and punctuation that were not noted in review of the [facility] rt prior to signing ED Disposition - Plan for ED Patient: Chief Complaint: Nausea/Vomiting Referrals: Anabella Núñez MD [Primary Care Provider] - What to do if you have Problems For any increased pain, shortness of breath, bleeding, nausea or vomiting, chest pain, or any unexpected problems, contact your Primary Care Provider. Call [facility] ([phone]) or report to the closest Emergen cy Room. Call 911 if necessary. 09/22/18 0621 <Electronically signed by Juan C Winston MD> Date Juan C Bethigner Signpauletteur e (If Indicated): Date CC: Anabella Núñez MD 22-Sep-2018 Abdomen/Pelvis without Cont Result: Comments: See Note; NOTES: [facility] Imaging Services [address] [place] [address] Abdomen/Pelvis without Cont MR#: [id number] Acct: [id number] Name: MAYRA GHOSH Rep #: [id number] : 1940 M 78 From: Vernon Coronel MD PCP: Anabella Núñez MD Status: REG ER Study: Abdomen/Pelvis without Cont Date of Exam: 09/22/18 Exam# [id number] Ordering Dr: Juan C Winston MD STUDY: [...] Anabella Núñez MD; Juan C Winston MD Case Preparer And Liner: Signed 30-Aug-2018 Cardiology Visit Report Result: Comments: See Note; NOTES: [facility] [address] [place] [address]. [address] [place] [address] OFFICE VISIT Date of Service: 08/30/18 MR#: [id number] Acct: [id number] Name: MAYRA GHOSH Re p #: [id number] : 1940 Provider: Amando Hu MD Age/Sex: 78/M Location: [facility] Status: Signed HPI HPI Details: [...] PO .COMPLEX tab 08/30/18 [History Confirmed 08/30/18] [facility] Medical History HLD (hyperlipidemia) (Chronic) Non -ST [...] (Chronic) Hypokalemia (Chronic) Atherosclerotic heart disease of [place] coronary artery without angina pectoris (Chronic) Ventricular [...] Negative for rash Cardiology Exam Const Appearance: 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 Contrast injection was [id number]. Mildly dilated left ventricle. Moderately severe segmental [...] peak blood pressure of 116/66 mmHg. The [facility] ECG demonstrated normal sinus rhythm with [...] an LVEF of 26%. Cardiac cath: 016: [place], [place] II. SELECTIVE CORONARY ANGIOGRAPHY: A. The [...] The circumflex system is not visualized on [place] left coronary inj ection, but rather faint [...] add ramipril - lCD programmed ON ICD Senior Marketing Analyst: [employer] Name: [employer] S CRTD Model #: DTBB 1D1 Serial #: [id number] Date Implanted: 06/05/2014 Device Characteristics Device: Biventricular Type: Implantable defibrillator Remote:[facility] Assessment AND Plan 1. CAD in [place] artery I25.10 Plan At the present time [...] is on dual antiarrhythmic therapy per his circuit manager. He appears to be tolerating the medications [...] Code Off vis,est,level 4 Diagnoses CAD in [place] artery I25.10 Postsurgical aortocoronary bypass status Z95.1 [...] Code Off vis,est,level 4 Diagnoses CAD in [place] artery I25.10 Postsurgical aortocoronary bypass status Z95.1 [...] M.D. 30-Aug-2018 12 Lead EKG performed by [facility] Result: Comments: See Note; NOTES: [facility] [address] [place] [address] 12 Lead EKG performed by [facility] 08/30/18 1425 MR#: [id number] Acct: [id number] Name: MAYRA GHOSH Rep #: [id number] : 1940 78 From: Amando Hu MD Attending Dr: Amando Hu MD Status: DEP AMB Ordering Dr: Amando Hu MD Date: 08/30/18 Location: [facility] Sex: M C Admitted: O RDER #: [id number] [facility]/12 Lead EKG performed by [facility] ECG Report Interpretation Electronic ventricular pacemaker Pacemaker ECG, No further analysis Electronically signed on 2017 at 15:23 by Amando Hu Software Version 8610 08/30/18 1524 Date Amando Hu MD CC: Anabella Núñez MD Date Dictated: 08/30/18 Date Transcribed: 08/30/181424 Case Preparer And Liner: PM Signed 14-Aug-2018 Pacemaker Check Result: Comments: See Note; NOTES: [facility] [address] [place] [address] Pacemaker Check Date of Service: 08/14/18 162 MR#: [id number] Acct: [id number] Name: CLARE GHOSH W Rep #: [id number] : 1940 From: Kristie Perry Age/Sex: 78/M Location: [facility] Status: Signed Billing Codes ICD Device Billing: ICD Dev Interrogate (Rmt) 08/14/18 1623 <Electroni jacque signed by Kristie Perry > Date Kristie Perry 08/14/18 164<Electronically signed by Amando Hu MD> Wei Rodney e: Date (if applicable) Amando Hu MD CC: 30-Jul-2018 Pacemaker Check Result: Comments: See Note; NOTES: [facility] [address] [place] [address] Pacemaker Check Date of Service: 07/30/18 0949 MR#: [id number] Acct: [id number] Name: CLARE GHOSH W Rep #: [id number] : 1940 From: Kristie Perry Age/Sex: 78/M Location: [facility] Status: Signed Billing Codes ICD Device Billing: ICD Dev Interrogate (Rmt) 07/30/18 0951 <Electroni jacque signed by Kristie Perry > Date Kristie Perry 07/30/18 1047<Electronically signed by Amando Hu MD> Wei Signsanaz e: Date (if applicable) Amando Hu MD CC: 07-May-2018 Pacemaker Check Result: Comments: See Note; NOTES: [facility] [address] [place] [address] Ave. [address] [place] [address] Pacemaker Check Date of Service: 05/07/181649 MR#: [id number] Acct: [id number] Name: CLARE GHOSH Rep #: [id number] : 1940 From: Kristie Perry Age/Sex: 78/M Location: [facility] Status: Signed Billing Codes ICD Device Billing: ICD Dev Interrogate ([facility]) 05/07/18 1654 <Electroni jacque signed by Kristie Perry > Date Kristie Perry 05/07/18 175<Electronically signed by Amando Hu MD> Wei Signsanaz e: Date (if applicable) Amando Hu MD CC: 22-Feb-2018 Cardiology Visit Report Result: Comments: See Note; NOTES: [facility] [place] [address] OFFICE VISIT Date of Service: 02/22/18 MR#: [id number] Acct: [id number] Name: MAYRA GHOSH Re p #: [id number] : 1940 Provider: Amando Hu MD Age/Sex: 77/M Location: [facility] Status: Signed HPI HPI Details: MAYRA GHOSH, is a 77 M who presents to the office today for for outpatient card iovascular follow-up. He has been hospitalized at [facility] in December of this year for [...] mg PO QWEEK PRN tab 02/22/18 [History] [facility] Medical His tory HLD (hyperlipidemia) (Chronic) Non-ST [...] (Chronic) Hypokalemia (Chronic) Atherosclerotic heart disease of [place] coronary artery witho ut angina pectoris (Chronic) [...] his underlying renal status. 2. Atherosclerosis of [place] coronary artery of [place] heart without angina pectoris I25.10 CABG 1988; Reoperation CABG x3 SVG to LAD, SVG to Rt PDA, Radial artery to OM-2 10/08/02; VT ablation @[facility] 01/03/17 [facility] 03/10/2016 Plan He does have a long-standing [...] Systolic CHF, chronic I50.22 Atherosc lerosis of [place] coronary artery of [place] heart without angina pectoris I25.10 Resighini vs. transplanted heart: [place] heart Postsurgical aortocoronary bypass status Z95.1 Cardiomyopathy, [...] Diagnoses Systolic CHF, chronic I50.22 Atherosclerosis of [place] coronary artery of [place] heart without angina pectoris I25.10 Resighini vs. transpla nted heart: [place] heart Postsurgical aortocoronary bypass status Z95.1 Cardiomyopathy, [...] Pacemaker Check Result: Comments: See Note; NOTES: [facility] [address] [place] [address] Pacemaker Check Date of Service: 02/11/181907 MR#: [id number] Acct: [id number] Name: CLARE GHOSH Rep #: [id number] : 1940 From: Kristie Perry Age/Sex: 77/M Location: [facility] Status: Signed Comments Summary Comments: [...] Location: remote Interview Reason: scheduled follow up Senior Marketing Analyst: [employer] Name: Viva S ALMOND PASTE MOLDER-D Model: AVGM3M7 Serial #: [id number] Implant Date: 06/05/14 Year(s): 3 Implant Physician: Dr. Saturnino Oquendo/[facility] Patient Characteristics Ventricular Indication: Nonsustained VT, Sustaned VT Patient Substrate: Ischemic cardiomyopathy Ejection fraction %: 35 to 39 ( 02/2017) By: Echo Pacemaker Dependent: No Device Characteristics Device: Biventricular Type: Implantable defibrillator Remote Follow-Up: [employer] Leads Lead #1 Senior Marketing Analyst Lead 1: [place] Model Lead 1: 2088TC Serial# Lead 1: [id number] Date Implanted Lead 1: 06/05/14 Position Lead 1: RA Lead #2 Senior Marketing Analyst Lead 2: [employer] Model Lead 2: 6947 Serial# Lead 2: [id number] Date Implanted Lead 2: 11/09 Lead #3 Senior Marketing Analyst Lead 3: [place] Model Lead 3: 1258T Serial# Lead 3: [id number] Date Implanted Lead 3: 06/05/14 Position Lead [...] See Note; NOTES: [facility] Imaging Services [address] [place] [address] Chest 1 View (Portable) MR#: [id number] Acct: [id number] Name: MAYRA GHOSH Rep #: [id number] : 1940 77 From: Renae Coleman MD PCP: Anabella Núñez MD Status: [facility] ER Study: Chest 1 View (Portable) Date of Exam: 01/18/18 Exam# [id number] Ordering Dr: Bennie Hernandez MD STUDY: X-RAY [facility] REASON FOR EXAM: Male, 77 [...] CC: Anabella Núñez MD; Bennie Hernandez MD Case Preparer And Liner: Signed 09-Jan-2018 Chest PA and Lateral Result: Comments: See Note; NOTES: [facility] Imaging Services [address] [place] [address] Chest PA and Lateral MR#: [id number] Acct: [id number] Name: MAYRA GHOSH Rep #: [id number] : 1940 [facility] From: Louis Sue MD PCP: Anabella Núñez MD Status: REG CLI Study: Chest PA and Lateral Date of Exam: 01/09/18 Exam# [id number] Ordering Dr: Delisa Gordon DO STUDY: X-RAY [...] Louis Sue MD at 12:59 EDT Tel [phone], Service support , CC: Anabella Núñez MD; Delisa Gordon DO Case Preparer And Liner: Signed 07-Jan-2018 Inital Evaluation (1) - PT Result: Comments: See Note; NOTES: [facility] Physical Therapy [facility] [facility] [place], [place] [address] Fax REHABILITATION SERVICES INITIAL EVALUATION MR#: [id number] Acct: [id number] Name: MAYRA GHOSH Rep #: [id number] : 1940 77 From: Polo Bedolla DPT, OCS, CSCS Referring Dr.: CLARI Smith Status: REG RCR Insurance: [facility] [employer] SELF PAY INSURANCE Patient's Visit Information MAYRA GHOSH is a 77 year old M referred to Physical Therapy by Krystal Smith NP-C FACILITY ATTENDANT.ODY with a diagnosis of unsteady. Date of Evaluation: 01/03/18 P hysical Therapist: Polo Bedolla DPT, OC - Visit Plan Plan: Pt doesn not want to undergo further balance or strength at this time as he can and will continue on his own as planned. He has no falls nor does he feel unsteady. 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 He understands doctors offic e has written a script for that and is awaiting their referral phone call. Otherwise he will continue ex as planned in previous discharge summary. - Subjective Subjective: Dizzyness and balance the jagdish e as last week. Not sure why he is here. Saw both doctors last week and said he was fine. Will workout at [facility] I adn continue HEP of balance ex as taught to him. Does nto wish to have balance PT. 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 No other major changes since d/c [...] to be FAXED BACK to us at [phone] for Medicare purposes. Please let me know [...] Summary (1) Result: Comments: See Note; NOTES: [facility] Physical Therapy [facility] [address] [place] [address] Fax REHABILITATION SERVICES RICARDO CONTRERAS SUMMARY MR#: [id number] Acct: [id number] Name: MAYRA GHOSH Rep #: [id number] : 1940 77 From: Polo Bedolla DPT, OCS, CSCS Referring Dr.: Anabella Núñez MD Status: REG RCR Insurance: [facility] SELF PAY INSURANCE HP [...] please feel free to call me at [phone]. Thank you for the referral of this patient. Sincerely, Polo Jewell am, DPT, OC <Electronically signed by Polo Bedolla DPT, OCS, CSCS> 12/25/17 0906 CC: Anabella Núñez MD EBG Signed 10-Dec-2017 Office Visit Report Result: Comments: See Note; NOTES: [facility] [address] [place] [address] OFFICE VISIT Date of Service: 10/25/17 MR#: [id number] Acct: [id number] Patient: MAYRA GHOSH Rep #: [id number] : 1940 Provider: Kristie Perry Age/Sex: 77/M Location: [facility] Status: Signed Device Device Date Interviewed: 10/25/17 Follow-up Location: remote Interview Reason: scheduled follow up Man ufacturer: [employer] Name: Viva S ALMOND PASTE MOLDER-D Model: [id number] Serial #: [id number] Implant Date: 06/05/14 Year(s): 3 Implant Physician: Dr. Saturnino Oquendo/[facility] Patient Characteristics Ventricular Indication: Nonsu stained VT, Sustaned VT Patient Substrate: Ischemic cardiomyopathy Ejection fraction %: 35 to 39 (02/2017) By: Echo Underlying rhythm: Sinus rhythm (1st degree AVB and frequent PVC's) Pacemaker Dependen t: No Device Characteristics Device: Biventricular Type: Implantable defibrillator Remote Follow-Up: [employer] Leads Lead #1 Senior Marketing Analyst Lead 1: [employer] [place] Model Lead 1: 2088TC Serial# Lead 1: [id number] Date Implanted Lead 1: 06/05/14 Position Lead 1: RA Lead #2 Senior Marketing Analyst Lead 2: Medtronic Model Lead 2: 6947 Serial# Lead 2: [id number] Date Implanted Lead 2: 11/09/01 Lead #3 Senior Marketing Analyst Lead 3: [employer] [place] Model Lead 3: 1258T Serial# Lead 3: [id number] Date Implanted Lead 3: 06/05/14 Position Lead [...] - PT Result: Comments: See Note; NOTES: [facility] [address] [place] [address]. [address] [place], [place] [address] Fax REHABILITATION SERVICES INITIAL EVALUATION MR#: [id number] Acct: [id number] Name: MAYRA GHOSH Rep #: [id number] : 1940 77 From: Polo Bedolla DPT, OCS, CSCS Referring Dr.: Anabella Núñez MD Status: REG R [facility] Patient's Visit Information MAYRA [...] wear him out to get to the [employer]. Normally works out at [employer] with balance ex. Feels like vik jane [...] to be FAXED BACK to us at [phone] for Medicare purposes. Please let me know if there are questions or concerns regarding this plan of care. Physician Signature: Date: <Electronically sig favian by Polo Bedolla DPT, OCS, CSCS> 12/03/17 0942 CC: Anabella Núñez MD EBG Signed For Medicare only, by signing this I certify the plan of care. Physicians Signature Date 14-Nov-2017 Cardiology Visit Report Result: Comments: See Note; NOTES: [facility] 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 At that time he [...] last diagnostic cardiac catheterization was performed at [facility] in [place], [place] on 03/08/2016. At that ti me [...] performed on 10/08/2002 at the [facility]. 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 transplanted heart: justin mary heart Postsurgical [...] NOTES: [facility] Imaging Services [address] [place] [address] Chest PA and Lateral MR#: [id number] Acct: [id number] Name: MIRELAMAYRA Willams Rep #: [id number] : 1940 77 From: Nereyda Barr MD PCP: Anabella Núñez MD Status: REG CLI Study: Chest PA and Lateral Date of Exam: 11/11/17 Exam# [id number] Ordering Dr: Anabella Núñez MD STUDY: X-RAY [...] Service support , CC: Anabella Núñez MD Case Preparer And Liner: Signed 30-Oct-2017 Office Visit Report Result: Comments: See Note; NOTES: [facility] [address] [place] [address] [place] [address] OFFICE VISIT Date of Service: 10/25/17 MR#: [id number] Acct: [id number] Patient: MAYRA GHOSH Rep #: [id number] : 1940 Provider: Kristie Perry Age/Sex: 77/M Location: [facility] Status: Signed Device Device Date Interviewed: 10/25/17 Follow-up Location: remote Interview Reason: scheduled follow up Man ufacturer: Medtronic Name: Viva S ALMOND PASTE MOLDER-D Model: [id number] Serial #: [id number] Implant Date: 06/05/14 Year(s): 3 Implant Physician: Dr. Saturnino Oquendo/OSBrayan Patient Characteristics Ventricular Indication: Nonsu stained VT, Sustaned VT Patient Substrate: Ischemic cardiomyopathy Ejection fraction %: 35 to 39 (02/2017) By: Echo Underlying rhythm: Sinus rhythm (1st degree AVB and frequent PVC's) Pacemaker Dependen t: No Device Characteristics Device: Biventricular Type: Implantable defibrillator Remote Follow-Up: [employer] Leads Lead #1 Senior Marketing Analyst Lead 1: [employer] Model Lead 1: 2088TC Serial# Lead 1: [id number] Date Implanted Lead 1: 06/05/14 Position Lead 1: RA Lead #2 Senior Marketing Analyst Lead 2: [facility] Model Lead 2: 6947 Serial# Lead 2: [id number] Date Implanted Lead 2: 11/09/01 Lead #3 Senior Marketing Analyst Lead 3: [employer] [place] Model Lead 3: 1258T Serial# Lead 3: [id number] Date Implanted Lead 3: 06/05/14 Position Lead [...] Summary (1) Result: Comments: See Note; NOTES: [facility] [address] [place] [address]. [address] [place] [address] Fax REHABILITATION SERVICES DISCHAR SUMMARY MR#: [id number] Acct: [id number] Name: MAYRA GHOSH Rep #: [id number] : 1940 77 From: Polo Bedolla DPT, OCS, CSCS Referring DrDusty: CLARI Smith Status: REG RCR [facility] D/C Summary It has been my pleasure to treat MAYRA GHOSH under orders from Krystal Smith, FACILITY ATTENDANT-C, for the diagnosis of debility, intracranial hemmorhage [...] please feel free to call me at [phone]. Thank you for the referral of this patient. Sincerely, Polo Bedolla, DPT, OC <Electronically signed by Polo WILSONT, OCS, CSCS> 10/15/17 0645 CC: CLARI Smith; Anabella Núñez MD EBG Signed 24-Sep-2017 D/C Summary- SP Result: Comments: See Note; NOTES: [facility] Speech Pathology [facility] [address] [place] [address] Rd. [address] [place] [address] Fax REHABILITATION SERVICES DISCHAR GE SUMMARY MR#: [id number] Acct: [id number] Name: MAYRA GHOSH Rep #: [id number] : 1940 77 From: Darlin Wilson M.S., CCC-TITLE ABSTRACTOR Referring DrDusty: CLARI Smith Status: REG RCR Insurance: AET NA [facility] Discharge Summary - Discharged: Discharge: [...] CI <Electronically signed by Darlin Wilson M.S., CCC-TITLE ABSTRACTOR&#6 2; 09/24/17 1428 CC: CLARI Smith; Anabella Núñez MD MO Signed 21-Sep-2017 OT D/C Summary Result: Comments: See Note; NOTES: [facility] Occupational Therapy [facility] [address] [facility]. [address] [place], [place] [address] Fax REHABILITATION SERVICES DIS CHARGE SUMMARY MR#: [id number] Acct: [id number] Name: MAYRA GHOSH Rep #: [id number] : 1940 77 From: Ev Rahman Referring [...] MMT. Additional strength assessments are as follows: tower climber R 85, L 75; lateral R 15, [...] Resume Hobbies Goal:: Pt. to increase R tower climber strength by 15 -20 lbs to promote [...] please fell free to call me at [phone]. Thank you for the referral of this patient. Sincerely, Ev Rahman <Electronically signed by Ev Rahman > 09/21/17 1203 CC: CLARI Smith; Anabella Núñez MD KMB Signed 18-Sep-2017 Re-Evaluation - PT (1) Result: Comments: See Note; NOTES: [facility] [address] [place] [address]. [address] [place] [address] Fax REEVALUATION / MEDICARE RECERTI [facility] PHYSICAL [facility] MR#: [id number] Acct: [id number] Name: MAYRA GHOSH Rep #: [id number] : 1940 77 From: Polo Bedolla DPT, OCS, CSCS Referring DrDusty: CLARI Smith Status: REG RCR Insura nce: [facility] Krystal Smith, FACILITY ATTENDANT-C, It has been my pleasure to treat [...] not hesitat e to contact me at [phone] by phone or if you have questions or concerns regarding this new plan of care! Sincerely, Polo Bedolla, DPT, OC <Electronically signed by Pk Bedolla DPT, OCS, CSCS> 09/18/17 0922 CC: CLARI Smith; Anabella Núñez MD EBG Signed For Medicare only, by signing this I certify the plan of care. Physicians Signature Date 03-Sep-2017 OT General Evaluation Result: Comments: See Note; NOTES: [facility] Occupational [facility] [place] [address] Fax REHABILITATION SERVICES IN TIA EVALUATION MR#: [id number] Acct: [id number] Name: MAYRA GHOSH Rep #: [id number] : 1940 77 From: Ev Rahman Referring Dr.: CLARI Smith Status: REG [facility] Date: Patient's Visit Information MAYRA GHOSH is a 77 year old M, referred to Occupational Therapy by Krystal Smith NP-C,, with a diagnosis of fall-related intracranial hemorrhage s/pcraniotomy. D ate of Evaluation: 08/27/17 Occupational Therapist: Ev Rahman - Subjective Subjective: Pt., Mayra, had fall july 03 and he was admitted into [facility]. present for evaluation and no johnathan that while in hospital he has multiple seizures. HE was transferred up to [place] in which craniotomy was preformed to help decrease pressure on brain as is was continuing to swell. While in [facility] after surgery he was intubated due [...] L 4/5 Wrist: R 3+/5, L 4/5 Leather Stitcher: R 75, L 79 Lateral Pinch: R [...] - Goals Goal:: Pt. to increase R tower climber strength by 15-20 lbs to promote increased [...] services to promote increasing B UE strength, tower climber and FMC strength, finger dexterity, B hand [...] to be FAXED BACK to us at [phone] for Medicare purposes. Please let me know if there are questions or concerns regarding this plan of care. Physician Signature: Date: <Electronically signed by Ev Rahman > 09/03/17 1032 CC: CLARI Smith; Anabella Núñez MD KMWoody Signed For Medicare only, by signing this I certify the plan of care. Physicians Signature Date 29-Aug-2017 Inital Evaluation (1) - PT Result: Comments: See Note; NOTES: [facility] [address] [facility] [place] [address] Fax REHABILITATION SERVICES INITIAL EVALUATION MR#: [id number] Acct: [id number] Name: MAYRA GHOSH Rep #: [id number] : 1940 77 From: Polo Bedolla DPT, OCS, CSCS Referring Dr.: CLARI Smith Status: REG R Insurance: [facility] Patient's Visit Information MAYRA GHOSH is a 77 year old M referred to Physical Therapy by Krystal Smith NP-Vandana with a diagnosis of debility, intracranial hemmorhage. Date of Evaluation: 08/27/17 [facility] sical Therapist: Polo Bedolla, LINUS, OC - [...] to be FAXED BACK to us at [phone] for Medicare purposes. Please let me know [...] - SP Result: Comments: See Note; NOTES: [facility] Speech Pathology [facility] [address] [place] [address] Fax REHABILITATION SERVICES INITIAL EVALUATION MR#: [id number] Acct: [id number] Name: MAYRA GHOSH Rep #: [id number] : 1940 77 From: Tracy Hartman Referring DrDusty: CLARI Smith Status: REG R Insurance: [employer] - History Date of Eval: 08/27/17 Medical Diagnosis (from RX): debility s/p craniotomy Previous speech therapy: Yes Results: Pt received ST services in [facility] for primarily word finding deficits. Oth er Relevant Medical History/Diagnoses/Surgery: Pt had a fall which resulted in a craniectomy relieve pressure. Pt was at [facility], then [facility], back to [facility], and back to [facility]. Medications related to this diagno sis: [...] NOTES: [facility] Cardiovascular Services [address] [place] [address] 12 Lead EKG 07/04/171649 MR#: [id number] Acct: [id number] Name: MAYRA GHOSH Rep # : [id number] : 1940 77 From: Bennie Ray MD [...] Abnormal ECG Confirmed by BENNIE RAY ([id number]), newspaper managing editor YANG BARR ([id number]) on 07/06/2017 10:58:37 AM Referred By: ADONAY Confirmed By:BENNIE RAY 07/06/17 1058 Date Bennie Ray MD CC: Anabella Núñez MD Date Dictated: 07/04/171649 Date Transcribed: 07/04/171649 Case Preparer And Liner: Signed 04-Jul-2017 Emergency Department Summary Result: Comments: See Note; NOTES: [facility] Medical Records Department [address] [place] [address] Emergency Department Summary 07/04/171655 MR#: [id number] Acct: [id number] Name: MAYRA GHOSH Rep #: [id number] : 1940 77 From: Juan C Winston [...] answer some questions after arrival here to [facility] emergency department. notes that he did [...] transfer. Patient will be transf erred to [facility] and was accepted by the [...] via helicopter. Treatment Plan: [] Disposition: Transfer [facility] Impression: Subdural hemorrhage with midline shift Seizures ED Disposition - Plan for ED Patient: Chief Complaint: i taryn Referrals: Anabella Núñez MD [Primary Care Provider] - What to do if you have Problems For any increased pain, shortness of breath, bleeding, nausea or vomiting, chest pain, or any unexpected pr oblems, contact your Primary Care Provider. Call [facility] ([phone]) or report to the closest Emergency Room. Call 911 if necessary. 07/04/17 1700 <Electronically signed by Juan C Winston MD> Date Juan C Winston MD Cosigner Signature (If Indicated): Date CC: Anabella Núñez MD 04-Jul-2017 Brain/Head without Contrast Result: Comments: See Note; NOTES: [facility] Imaging Services [address] [place] [address] Brain/Head without Contrast MR#: [id number] Acct: [id number] Name: MAYRA GHOSH Rep #: [id number] : 1940 [facility] From: Darrel Lopez MD PCP: Anabella Núñez MD Status: DEP ER Study: Brain/Head without Contrast Date of Exam: 07/04/17 Exam# [id number] Ordering Dr: Juan C Winston MD STUDY [...] Anabella Núñez MD; Juan C Winston MD Case Preparer And Liner: Signed 04-Jul-2017 Chest 1 View (Portable) Result: Comments: See Note; NOTES: [facility] Imaging Services [address] [place] [address] Chest 1 View (Portable) MR#: [id number] Acct: [id number] Name: MAYRA GHOSH Rep #: [id number] : 1940 77 From: Nadira Pedersen MD PCP: Anabella Núñez MD Status: REG ER Study: Chest 1 View (Portable) Date of Exam: 07/04/17 Exam# [id number] Ordering Dr: Juan C Winston MD STUDY: [...] Nadira Pedersen MD at 17:14 EDT Tel [phone], Service support , Fax CC: Anabella Núñez MD; Juan C Winston MD Case Preparer And Liner: Signed 04-Jul-2017 Spine Cervical without Contras Result: Comments: See Note; NOTES: [facility] Imaging Services [address] [place] [address] Spine Cervical without Contras MR#: [id number] Acct: [id number] Name: MAYRA GHOSH Rep #: [id number] : 1940 [facility] From: Nadira Pedersen MD PCP: Anabella Núñez MD Status: REG ER Study: Spine Cervical without Contras Date of Exam: 07/04/17 Exam# [id number] Ordering Dr: Juan C Winston MD STUDY: [...] Nadira Pedersen MD at 17:19 EDT Tel [phone], Service support , Fa x [phone] CC: Anabella Núñez MD; Juan C Winston MD Case Preparer And Liner: Signed 12-Jun-2017 Operative Report Result: Comments: See Note; NOTES: [facility] Medical Records Department [address] [place] [address] Operative Report 06/12/17 0804 MR#: [id number] Acct: [id number] Name: MAYRA GHOSH Rep #: [id number] : 1940 77 From: Pool Chávez MD PCP: Anabella Núñez MD Status: REG CLI Y Location: [place] [address] Report of Operation Date of Procedure: 06/12/17 [...] See Note; NOTES: [facility] Imaging Services [address] [place] [address] Chest PA and Lateral MR#: [id number] Acct: [id number] Name: MAYRA GHOSH Rep #: [id number] : 1940 M 77 From: Louis Sue MD PCP: Anabella Núñez MD Status: REG CLI Study: Chest PA and Lateral Date of Exam: 06/06/17 Exam# [id number] Ordering Dr: Delisa Gordon DO STUDY: X-RAY [...] Louis Sue MD at 13:58 EDT Tel [phone], Service support , CC: Anabella Núñez MD; Delisa Gordon DO Case Preparer And Liner: Signed 14-Mar-2017 CTA Head W/WO Contrast Result: Comments: See Note; NOTES: [facility] Imaging Services [address] [place] [address] Verda 4d CTA Head W/WO Contrast MR#: [id number] Acct: [id number] Name: MAYRA GHOSH Rep #: [id number] : 1940 [facility] From: Kalli Lowery MD PCP: Anabella Núñez MD Status: REG ER Study: CTA Head W/WO Contrast Date of Exam: 03/14/17 Exam# [id number] Ordering Dr: Gal Glasgow MD [facility] DY: CTA OF THE BRAIN REASON FOR EXAM: Male, 77 years old. DIZZINESS SINCE 8AM HX-HTN,MS,PACER,CABG,CHF RADIATION DOSAGE (If Supplied By Facility): CTDIvol [...] There is no demonstrated aneurysm of the [place] of [place]. There is no demonstrated abnormality of the visuali zed brain. CT/CTA Head W/WO Contrast IMPRESSION: No evidence of significant stenosis or occlusion of the intracranial arteries. See above. Elect ronically Signed: Kalli Lowery MD at 17:56 EDT Tel , Service support , CC: Anabella Núñez MD; Gal Glasgow MD Case Preparer And Liner: Signed 14-Mar-2017 CTA Neck W/WO Contrast Result: Comments: See Note; NOTES: [facility] Imaging Services [address] [place] [address] Verdana 4d CTA Neck W/WO Contrast MR#: [id number] Acct: [id number] Name: MAYRA GHOSH Rep #: [id number] : 1940 M 77 From: Kalli Lowery MD PCP: Anabella Núñez MD Status: REG ER Study: CTA Neck W/WO Contrast Date of Exam: 03/14/17 Exam# [id number] Ordering Dr: Gal Glasgow MD [facility] DY: CTA NECK WITH CONTRAST REASON FOR EXAM: Male, 77 years old. DIZZINESS SINCE 8AM HX-HTN,MS,PACER,CABG,CHF RADIATION DOSAGE (If Supplied By Facility): CTDIvol [...] CC: Anabella Núñez MD; Gal Glasgow MD Case Preparer And Liner: Signed 14-Mar-2017 Chest PA and Lateral Result: Comments: See Note; NOTES: [facility] Imaging Services [address] [place] [address] Verdana 4d Chest PA and Lateral MR#: [id number] Acct: [id number] Name: MAYRA GHOSH Екатерина Rep #: [id number] : 1940 77 From: Kalli Lowery MD PCP: Anabella Núñez MD Status: REG ER Study: Chest PA and Lateral Date of Exam: 03/14/17 Exam# [id number] Ordering Dr: Gal Glasgow MD STUDY: X-RAY [...] CC: Anabella Núñez MD; Gal Glasgow MD Case Preparer And Liner: Signed 02-Nov-2016 Chest PA and Lateral Result: Comments: See Note; NOTES: [facility] Imaging Services [address] [place] [address] Verdana 4d Chest PA and Lateral MR#: [id number] Acct: [id number] Name: MAYRA GHOSH Rep #: [id number] : 1940 M 76 From: Tyshawn Gayle DO PCP: Anabella Núñez MD Status: REG CLI Study: Chest PA and Lateral Date of Exam: 11/02/16 Exam# [id number] Ordering Dr: Amando Hu MD STUDY: X-R [...] Tyshawn Gayle DO at 12:16 EST Tel [phone], Service support [phone], CC: Anabella Núñez MD; Amando Hu MD Case Preparer And Liner: Signed 08-Sep-2016 Kidney and Bladder Result: Comments: See Note; NOTES: [facility] Imaging Services [address] [place] [address] Verdana 4d Kidney and Bladder MR#: [id number] Acct: [id number] Name: MAYRA GHOSH Rep #: [id number] : 1940 76 From: Louis Sue MD PCP: Anabella Núñez MD Status: REG CLI Study: Kidney and Bladder Date of Exam: 09/08/16 Exam# [id number] Ordering Dr: Anabella Núñez MD STUDY: RENAL [...] Louis Sue MD at 15:05 EST Tel [phone], Service support [phone], CC: Anabella Núñez MD Case Preparer And Liner: Signed 13-Sep-2015 Chest PA and Lateral Result: Comments: See Note; NOTES: [facility] Imaging Services [address] [place] [address] Verdana 4d Chest PA and Lateral MR#: [id number] Acct: [id number] Name: Lula GHOSH Rep #: [id number] : 1940 M 75 From: Louis Sue MD PCP: Anabella Núñez MD Status: REG CLI Study: Chest PA and Lateral Date of Exam: 09/13/15 Exam# [id number] Ordering Dr: Daria Lowe STUDY: X-RAY CHEST [...] Louis Sue MD at 12:55 EST Tel [phone], Service support [phone], RAD/Chest PA and Lateral IMPRESSION: No acute abnorma lity is seen. Cardiomegaly. Electronically Signed: Louis Sue MD at 12:55 EST Tel [phone], Service support [phone], CC: Daria Lowe; Anabella Núñez MD Case Preparer And Liner: Signed 13-Sep-2015 Spirometry (07585) Comments: normal Result: 23-Apr-2014 Echocardiogram Complete Result: Comments: See Note; NOTES: [facility] Cardiovascular Services [address] [place] [address] Echo Complete 04/23/14 0954 MR#: [id number] Acct: [id number] Name: CORNELIA GHOSH Rep #: [id number] : 1940 74 From: Amando Hu MD Attending Dr: Amando Hu MD Status: REG CLI Ordering Dr: Amando Hu MD Date: 04/23/14 [facility]: [facility] Sex: M C Admitted: Procedure This [...] Mid- inferoseptal : Akinetic. Mid-anteroseptal : Akinetic. [place] : Hypokinetic. Right Ventricle Normal RV size. [...] max P.7 mmHg TR max P.4 m [place] E/E' med: 36.0 Interpretation Summary The study [...] MD Date Dictated: 04/23/1454 Date Transcribed: 04/23/142135 Case Preparer And Liner: Signed 21-Jan-2014 Chest PA and Lateral Result: Comments: See Note; NOTES: [facility] Imaging Services [address] [place] [address] Radiology Report MR#: [id number] Acct: [id number] Name: MAYRA GHOSH Rep #: [id number] : 1940 M 73 From: Louis Sue MD PCP: Anabella Núñez MD Status: REG CLI Study: Chest PA and Lateral Date of Exam: 01/21/14 Exam# [id number] Ordering Dr: Anabella Núñez MD STUDY: X [...] M.D. 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 Comments: 50 years ago Status: Active Tobacco use: Former smoker. Status: Inactive Smoking Status Name Dates Details Former smoker Vital Signs Date Test Result Details 45-Pyi-154789:45 Temperature 97.6 f Comments: Method: Temporal Pulse [...] 0.00 cm Results Date Description Value Details 98-Bqk-746883:00 Basic Metabolic Profile (BMP) Comments: REDRAW. PREVIOUS SPECIMEN REJECTED DUE TOHEMOLYSIS. 10/16/181430 Cinthia Mcneal.'TROP' Serial specimen #1, #2, #3, or #4: 1[facility] [address] [place], [place], [address] GAP 10 (Normal) Range: 5-15 CO2 26.0 [...] A.D.A. criteria.Please note revised GLUCOSE reference range fxfohnwya87/02/2018. 51-Stx-699565:00 Magnesium Comments: REDRAW. PREVIOUS SPECIMEN REJECTED DUE TOHEMOLYSIS. 10/16/181430 Cinthia Mcneal.'TROP' Serial specimen #1, #2, #3, or #4: [address] [place] [address] [place], [place], [id number](449) MG 2.1 mg/dL (Normal) Range: 1.6-2.6 14-Tbe-414839:00 Troponin-I Comments: REDRAW. PREVIOUS SPECIMEN REJECTED DUE TOHEMOLYSIS. 10/16/18 1431 Cinthia Mcneal.'TROP' Serial specimen #1, #2, #3, or #4: [address] [place] [address] [place], [place], [phone] TROPONIN-I 0.022 ng/mL (Normal) Comments: TROPONIN-I EXPECTED VALUES <0.045 Negative 0.045 - 0.590 Consistent with Cardiac Damage > OR = 0.600 Critical Value Not every elevated troponin is indicative of MS. T hesevalues should be used with clinical judgement in examiningthe patient's clinical picture for diagnosis. To establisha diagnosis of MS versus myocardial injury, there must be ademonstrated rise and/ or fall in the troponin values, inaddition to ischemic symptoms, EKG changes, new regionalwall motion abnormality, and/or angiographical evidence. PLEASE NOTE: REFERENCE RANGES EDITED 03/11/1816-Oct-201869-Nel-765461:00 CBC W/Diff, Automated Comments: [facility] [address] [address]. [place], [place], [phone](868) Absolute Lymph 1.37 {X10_3/ul} (Normal) Range: 0.83-4.51 [...] 4.4-11.0 30-Sep-20187:13 Basic Metabolic Profile (BMP) Comments: [facility] Wlbsmdjprg7242 [place], [address] GAP 12 (Normal) Range: 5-15 CO2 22.0 [...] A.D.A. criteria.Please note revised GLUCOSE reference range mafxlagnl33/02/2018. 30-Sep-20187:13 CBC W/Diff, Automated Comments: [facility] Yxctzchaci9590 [place], [address] Absolute Lymph 1.40 {X10_3/ul} (Normal) [...] K/mm3 (Normal) Range: 4.4-11.0 :13 Troponin-I Comments: [facility] Fnaqhuyrdj0702 [place], [address] TROPONIN-I 0.030 ng/mL (Normal) Comments: TROPONIN-I EXPECTED VALUES <0.045 Negative 0.045 - 0.590 Consistent with Cardiac Damage > OR = 0.600 Critical Value Not every elevated troponin is indicative of MS. T hesevalues should be used with clinical judgement in examiningthe patient's clinical picture for diagnosis. To establisha diagnosis of MS versus myocardial injury, there must be ademonstrated rise and/ or fall in the troponin values, inaddition to ischemic symptoms, EKG changes, new regionalwall motion abnormality, and/or angiographical evidence. PLEASE NOTE: REFERENCE RANGES EDITED 03/11/1830-Sep-20187:00 Urinalysis, Complete Comments: Order Date: 09/30/18Has pt arrived? YHow was Urine Obtained? EXTRACTOR FILLER TO [facility] Wwxwcpakkt6318 [address] [place], [place], [id number] MUCUS, URINE 0 SEEN {/hpf} (Normal) BACTERIA [...] Yellow (Normal) :40 CBC W/Diff, Automated Comments: [facility] Qknbpsfpcf2262 [facility] Marlyn. [place], [place], [address] Absolute Lymph 1.74 {X10_3/ul} (Normal) Range: 0.83-4.51 [...] 4.6-6.2 WBC 7.6 K/mm3 (Normal) Range: 4.4-11.0 11-Wmp-88567:40 Comprehensive Metabolic Profil Comments: [facility] Ryyvrcrpnb8857 [address] [place], [place], [address] GAP 13 (Normal) Range: 5-15 CO2 27.0 [...] A.D.A. criteria.Please note revised GLUCOSE reference range beyhyofbj10/02/2018. 63-Prd-80979:40 Lipase Comments: [facility] Jhtoakhokq4667 [facility] [address]. [place], [place], [address] LIPASE 114 U/L (Normal) Range: 73-393 34-Dac-593136:18 BNP,B-Type NATRIURETIC PEPTIDE Comments: [facility] Tekmsafsrb0773 [facility] [address]. [place], [place], [address] B-TYPE JUSTIN PEP 734.1 pg/mL (Abnormal) Range: 0-100 40-Hws-532399:18 CBC-Complete Blood Cnt No Diff Comments: [facility] Fjakwflkci6249 [facility] [address]. [place], [place], [address] MPV 10.4 fL (Normal) Range: 6.2-12.0 PLT [...] 4.6-6.2 WBC 7.2 K/mm3 (Normal) Range: 4.4-11.0 86-Pkb-253614:18 Comprehensive Metabolic Profil Comments: 'TROP' Serial specimen #1, #2, #3, or #4: 1[facility] Mjmgxwnrel5185 [place], [address] GAP 10 (Normal) Range: 5-15 CO2 29.0 [...] criteria.Please note revised GLUCOSE reference range /02/2018. 20-Ism-129210:18 KEPPRA (LEVETIRACETAM) Comments: [facility] (refer to report for specific site)refer to report for address and phone number TANNER Comments: TEST RESULT LIMITSLevetiracetam (Keppra), SLevetiracetam, S 29.6 ug/mL 10.0 - 40.0 TESTING PERFO (Normal) [facility]MED AT [facility]. ORIGINAL REPORT ON FILE IN LAB CONTAINS ADDITIONAL TEST SITE INFORMATION. 83-Zzo-132941:18 Thyroid Stim Hormone (TSH) Comments: 'TROP' Serial specimen #1, #2, #3, or #4: [address] [place] [address] Ptcsvllqen2254 [facility] [place], [address] TSH 2.73 {uIU/mL} (Normal) Range: 0.358-3.74 01-Wpo-542614:18 Troponin-I Comments: 'TROP' Serial specimen #1, #2, #3, or #4: [address] [place] [address] Arxbnyqbhg6820 [facility]. [place], [place], [address] TROPONIN-I 0.027 ng/mL (Normal) Comments: TROPONIN-I EXPECTED VALUES <0.045 Negative 0.045 - 0.590 Consistent with Cardiac Damage > OR = 0.600 Critical Value Not every elevated troponin is indicative of MS. T hesevalues should be used with clinical judgement in examiningthe patient's clinical picture for diagnosis. To establisha diagnosis of MS versus myocardial injury, there must be ademonstrated rise and/ or fall in the troponin values, inaddition to ischemic symptoms, EKG changes, new regionalwall motion abnormality, and/or angiographical evidence. PLEASE NOTE: REFERENCE RANGES EDITED 03/11/1810-Sep-201898-Nqp-036856:59 Metabolic Panel, Basic Comments: PATIENT NOT FASTINGPERFORMED BY: [facility] Vskesb8195 Patel Bow[place] [id number] (11596) Calcium 9.0 mg/dL (Normal) Range: 8.6-10.2 Carbon [...] 8-27 Glucose 177 mg/dL (Abnormal) Range: 65-99 24-Lug-987341:06 Lipid Profile Comments: [facility] Sfcvq[address]uvn[address] [place], [place], [address] VLDL 20 mg/dL (Normal) Range: 5-40 LDL [...] 200-240 mg/dL Borderline >240 mg/dL High Risk 37-Bme-613033:06 Liver Profile Comments: [facility] Gwvxj[address] [place], [place], [address] D BILI 0.35 mg/dL (Abnormal) Range: 0.00-0.30 T BILI 0.90 mg/dL (Normal) Range: 0.20-1.00 ALT 26 U/L (Normal) Range: 16-61 ALK P 158 U/L (Abnormal) Range: 45-117 AST 27 U/L (Normal) Range: 15-37 GLOB 4.8 g/dL (Abnormal) Range: 2.2-4.2 ALB 3.4 g/dL (Normal) Range: 3.2-5.0 T PROT 8.2 g/dL (Normal) Range: 6.4-8.2 :25 Tanner (10329) Comments: PATIENT WAS FASTINGPERFORMED BY: [facility] VinelandMxhrle[address] [place] [address] [id number] BY: ItrybeforeIbuy[address] [id number] Levetiracetam, S 41.3 ug/mL (Abnormal) Range: 10.0-40.0 :25 METABOLIC PANEL, BASIC Comments: PATIENT WAS FASTINGPERFORMED BY: zkipster[address] [place] [address] [id number] BY: ItrybeforeIbuy[address] [id number] (28770) Calcium 9.0 mg/dL (Normal) Range: 8.6-10.2 Carbon [...] Count, Citrated Comments: PATIENT WAS FASTINGPERFORMED BY: [facility]6370 [facility] [id number] BY: [address] [id number] (27524) Plt Count, Citrated Bld 119 {X10E3/uL} (Abnormal) Range: 150-379 25-Bzo-532419:54 HGB A1C (78093) Comments: PATIENT NOT FASTINGPERFORMED BY: [place] 3851470 [facility] [id number] Hemoglobin A1c 9.0 % (Abnormal) Range: 4.8-5.6 Comments: . Prediabetes: 5.7 - 6.4 Diabetes: >6.4 Glycemic control for adults with diabetes: <7.0 :54 T4, FREE (THYROXINE) (09531) Comments: PATIENT NOT FASTINGPERFORMED BY: [place] 3851470 [facility] [id number] T4,Free(Direct) 1.15 ng/dL (Normal) Range: 0.82-1.77 89-Mpf-247476:54 TSH (92614) Comments: PATIENT NOT FASTINGPERFORMED BY: [place] 3851470 [facility] [id number]; appt 08/19 TSH 2.130 {uIU/mL} (Normal) Range: 0.450-4.500 38-Wup-430880:20 Rapid Strep Test, Office (54019) Rapid Strep Test, Office Negative (Normal) 41-Wof-226464:46 Metabolic Panel, Basic Comments: PATIENT NOT FASTINGPERFORMED BY: [place] 3851470 [facility] [id number]; fu today DB (27166) Calcium 9.1 mg/dL (Normal) Range: 8.6-10.2 Carbon [...] 8-27 Glucose 227 mg/dL (Abnormal) Range: 65-99 3-Zbj-222985:53 Basic Metabolic Profile (BMP) Comments: [facility] Doswehcoxy3660 [address] [place], [address](144) GAP 12 (Normal) Range: 5-15 CO2 27.0 [...] A.D.A. criteria.Please note revised GLUCOSE reference range salipzito51/02/2018. 7-Ocu-185628:53 Magnesium Comments: [facility] Qxlkwstftn8086 [address] [place], [place], [address](241) MG 1.8 mg/dL (Normal) Range: 1.6-2.6 17-Wya-633279:10 Basic Metabolic Panel (8) Comments: PATIENT NOT FASTINGPERFORMED BY: CB [facility] Lwnykc2249 [facility] [id number] BY: BN [facility] [address] [id number] Calcium 9.3 mg/dL (Normal) Range: 8.6-10.2 Carbon [...] 8-27 Glucose 325 mg/dL (Abnormal) Range: 65-99 38-Unv-132920:10 Levetiracetam (Keppra), S Comments: PATIENT NOT FASTINGPERFORMED BY: [employer] [facility] [id number] BY: Ininal[address] [id number] Levetiracetam, S 66.3 ug/mL (Abnormal) Range: 10.0-40.0 68-Xow-328947:10 Platelet Count on Comments: PATIENT NOT FASTINGPERFORMED BY: [employer] [facility] [id number] BY: ItrybeforeIbuy[address] [id number] Citrated Bld Plt Count, Citrated 85 {X10E3/uL} Range: 150-379 Bld (Abnormal) Comments: Platelet count verified by examination of peripheral blood smear. FDP, Plasma 5 ug/mL (Abnormal) Comments: PATIENT NOT FASTINGPERFORMED BY: [employer] [facility] [id number] BY: [address] [id number] :49 LDH 220 [iU]/L (Normal) Comments: PATIENT NOT FASTINGPERFORMED BY: Hubbub Xsrufh4895 [facility] [id number] BY: [address] [id number] :49 Range: 121-224 8-Nvs-942247:49 Methylmalonic Acid, Serum Comments: PATIENT NOT FASTINGPERFORMED BY: [place] 3851470 [facility] [id number] BY: [address] [id number] Disclaimer: [facility] (Normal) Comments: This test was developed and its performance characteristicsdetermined by [employer]. It has not been cleared or approvedby the Food and Drug Administration. Methylmalonic Acid, Serum 195 nmol/L (Normal) Range: 0-378 6-Qne-817405:49 Platelet Count on Comments: PATIENT NOT FASTINGPERFORMED BY: [facility] HospitalThetaRayTina Ville 9986270 [facility] [id number] BY: [address] [id number] Citrated Bld Plt Count, Citrated 108 {X10E3/uL} Range: 150-379 Bld (Abnormal) Vitamin B12 780 pg/mL (Normal) Comments: PATIENT NOT FASTINGPERFORMED BY: ItrybeforeIbuyTina [place] 9986270 [facility] [id number] BY: [address] [id number] :49 Range: 232-1245 1-Kcn-701756:49 Renal function Panel Comments: standing order q 3 months; PATIENT NOT FASTINGPERFORMED BY: ItrybeforeIbuyTina [place] 9986270 [facility] [id number] BY: [address] [id number] (62040) Albumin 4.3 g/dL (Normal) Range: 3.5-4.8 Phosphorus [...] 8-27 Glucose 244 mg/dL (Abnormal) Range: 65-99 21-Ffc-746955:48 Urinalysis, Office (59647) UA - LEUKOCYTE ESTERASE Trace (Normal) UA - NITRITE Negative (Normal) URINE UROBILINGN CASPER TIMED 2 mg/dL (Normal) UA - PROTEIN Trace mg/dL (Normal) UA - PH 6 (Abnormal) UA - BLOOD Negative (Normal) UA - SPECIFIC GRAVITY 1.020 (Normal) UA - KETONES Negative mg/dL (Normal) UA - BILIRUBIN Negative (Normal) UA - GLUCOSE Negative (Normal) 51-Ujt-260767:47 CBC W/Diff, Automated Comments: Order Date: 04/25/18Order Info: 0184-1 - [facility]CDWMercy [facility] Sarrwotvah9465 [address] [place], [place], [address] Absolute Lymph 1.07 {X10_3/ul} (Normal) Range: 0.83-4.51 [...] 4.6-6.2 WBC 7.9 K/mm3 (Normal) Range: 4.4-11.0 51-Qeb-016284:47 Renal Profile Comments: Order Date: 04/25/18Order Info: 0790- 1 - RENALOrder Info: [id number] - TROPOrder Info: 10702-2 - MGOrder Info: 3016-3 - TSHOrder Info: 3024-7 - T4F'TROP' Serial specimen #1, #2, #3, or #4: [address] [place] [address] Qmkuquhmqi0313 [place], [place], [address] CO2 27.0 mmol/L (Normal) Range: 21.0-32.0 CL [...] A.D.A. criteria.Please note revised GLUCOSE reference range brobjwanp10/02/2018. 78-Lro-318892:47 Thyroid Stim Hormone (TSH) Comments: Order Date: 04/25/18Order Info: 0790-1 - RENALOrder Info: 38062-2 - TROPOrder Info: 58782-8 - MGOrder Info: 3016-3 - TSHOrder Info: 3024-7 - T4F'TROP' Serial specimen #1, #2, #3, or #4: [address] [place] [address] Nsrhpyaiih4940 [address]. [place], [place], [address] TSH 2.08 {uIU/mL} (Normal) Range: 0.358-3.74 :47 Troponin-I Comments: Order Date: 04/25/18Order Info: 0790-1 - RENALOrder Info: 56292-5 - TROPOrder Info: 25746-1 - MGOrder Info: 3016-3 - TSHOrder Info: 3024-7 - T4F'TROP' Serial specimen #1, #2, #3, or #4: [address] [place] [address] [place], [place], [address] TROPONIN-I < 0.015 ng/mL (Normal) Comments: TROPONIN-I EXPECTED VALUES <0.045 Negative 0.045 - 0.590 Consistent with Cardiac Damage > OR = 0.600 Critical Value Not every elevated troponin is indicative of MS. T hesevalues should be used with clinical judgement in examiningthe patient's clinical picture for diagnosis. To establisha diagnosis of MS versus myocardial injury, there must be ademonstrated rise and/ or fall in the troponin values, inaddition to ischemic symptoms, EKG changes, new regionalwall motion abnormality, and/or angiographical evidence. PLEASE NOTE: REFERENCE RANGES EDITED 03/11/1825-Apr-201830-Iee-634103:47 T4, FREE (THYROXINE) (03921) Comments: Order Date: 04/25/18Order Info: 0790-1 - RENALOrder Info: 24655-2 - TROPOrder Info: 16520-1 - MGOrder Info: 301-3 - TSHOrder Info: 302-7 - T4F'TROP' Serial specimen #1, #2, #3, or #4: [facility] Jpgvdhvbob5903 [place], [address] T4 FREE DIRECT 1.08 ng/dL (Normal) Range: 0.76-1.46 16-Ohk-997199:47 Magnesium (84185) Comments: Order Date: 04/25/18Order Info: 0790- 1 - RENALOrder Info: [id number] - TROPOrder Info: 01076-0 - MGOrder Info: 3 - TSHOrder Info: 7 - T4F'TROP' Serial specimen #1, #2, #3, or #4: 1[facility] Kskgtupauc2300 [place], [address] MG 1.9 mg/dL (Normal) Range: 1.6-2.6 63-Cwp-053502:00 CBC WITH MANUAL DIFF (05924) Comments: standing order q 3 months; PATIENT NOT FASTINGPERFORMED BY: [facility] Lzsmmd2210 Patel [facility] [id number] Immature Grans (Abs) 0.0 {x10E3/uL} (Normal) Range: [...] 4.14-5.80 WBC 9.0 {x10E3/uL} (Normal) Range: 3.4-10.8 57-Pdg-644859:00 MAGNESIUM (40466) Comments: standing order q 3 months; PATIENT NOT FASTINGPERFORMED BY: [facility]ets [facility] family too6370 PharmAthenein [place] [id number] Magnesium 1.7 mg/dL (Normal) Range: 1.6-2.3 67-Goj-908260:00 PARATHORMONE (83783) Comments: standing order q 3 months; PATIENT NOT FASTINGPERFORMED BY: [facility]ets [facility] family too6370 PharmAtheneFormerly [facility] [id number] PTH, Intact 73 pg/mL (Abnormal) Range: 15-65 66-Smo-964034:00 Renal function Panel (14307) Comments: standing order q 3 months; PATIENT NOT FASTINGPERFORMED BY: [facility]ets [facility] family too6370 SMATOOSNovant Health [facility] Medical Centerin [place] [id number] Albumin 4.1 g/dL (Normal) Range: 3.5-4.8 Phosphorus [...] 8-27 Glucose 276 mg/dL (Abnormal) Range: 65-99 63-Moh-700442:29 Renal function Panel (78541) Comments: PATIENT WAS FASTINGPERFORMED BY: [facility] Cjrnva9553 [facility] [id number]; fu - Albumin 4.4 g/dL (Normal) Range: [...] 8-27 Glucose 198 mg/dL (Abnormal) Range: 65-99 9-Qzq-528598:18 HgA1C , Office (15068) HgA1C , Office 7.0 % (Normal) Range: 4.6 - 7.1 38-Rvb-49293:46 Basic Metabolic Profile Comments: Comments: Renal InsufficiencyComments: Renal InsufficiencyWMercy Health [facility] Ytmnpbfsxl4096 [address] [place], [address] (FOC) GAP 13 (Normal) Range: 5-15 CO2 24.0 [...] A.D.A. criteria.Please note revised GLUCOSE reference range jetwjnmxr44/02/2018. 76-Nwe-25398:46 Lipid Profile Comments: Comments: Renal InsufficiencyComments: Ren[facility] InsufficiencyC[facility] Ohwnnmhhzf5592 [facility]. [place], [place], [address] VLDL 41 mg/dL (Abnormal) Range: 5-40 LDL [...] Liver Profile Comments: Comments: Renal InsufficiencyComments: Renal InsufficiencyCincinnati Shriners Hospital Cuzajsqgyf4057 [address]. [place], [place], [address] D BILI 0.16 mg/dL (Normal) Range: 0.00-0.30 T BILI 0.50 mg/dL (Normal) Range: 0.20-1.00 ALT 25 U/L (Normal) Range: 16-61 ALK P 104 U/L (Normal) Range: 45-117 AST 29 U/L (Normal) Range: 15-37 GLOB 4.0 g/dL (Normal) Range: 2.2-4.2 ALB 3.5 g/dL (Normal) Range: 3.2-5.0 T PROT 7.5 g/dL (Normal) Range: 6.4-8.2 2-Tee-037542:37 Magnesium (27141) Comments: PATIENT NOT FASTINGPERFORMED BY: LabCoInsp[facility] Medical Center VinelandUsnakg5262 [facility] [id number] Magnesium 2.1 mg/dL (Normal) Range: 1.6-2.3 3-Fus-861571:37 Metabolic Panel, Basic (02358) Comments: PATIENT NOT FASTINGPERFORMED BY: LabCoInsp[facility] Medical Center VinelandQhirjv0952 [facility] [id number] Calcium 9.0 mg/dL (Normal) Range: 8.6-10.2 Carbon [...] 8-27 Glucose 284 mg/dL (Abnormal) Range: 65-99 95-Xdz-005833:57 Bedside Glucose Comments: [facility] LaboratoryPoint of Ytak9304 [place] [address] BEDSIDE GLU 381 mg/dL (Abnormal) Range: 70-110 Comments: MANAGEMENT OF PATIENT CARE PER NURSING PROTOCOL 77-Hcp-436801:50 Acetone Serum Comments: [facility] Cxnbcmejfz7228 [place], [address] ACETONE SERUM NEGATIVE (Normal) 11-Gwc-050165:50 Basic Metabolic Profile (BMP) Comments: 'TROP' Serial specimen #1, #2, #3, or #4: 1WMer[facility] Ybxrleusxz1259 [address] [place], [address] GAP 9 (Normal) Range: 5-15 [...] criteria.Please note revised GLUCOSE reference range /02/2018. 45-Gjs-998241:50 BNP,B-Type NATRIURETIC PEPTIDE Comments: [facility] Qenqrgphsi5926 [address] [place], [place], [address] B-TYPE JUSTIN PEP 386.1 pg/mL (Abnormal) Range: 0-100 93-Vnu-583096:50 CBC W/Diff, Automated Comments: [facility] Ifkexydxeq9546 [place], [address] Absolute Lymph 1.11 {X10_3/ul} (Normal) [...] 4.6-6.2 WBC 9.7 K/mm3 (Normal) Range: 4.4-11.0 43-Yam-165157:50 Troponin-I Comments: 'TROP' Serial specimen #1, #2, #3, or #4: [address] [place] [address] Wkrijbkgdn4108 [facility]. [place], [place], [address] TROPONIN-I 0.03 ng/mL (Normal) Comments: TROPONIN-I EXPECTED VALUES <0.05 NEGATIVE 0.06 - 0.59 AT RISK OF MS > OR = 0.60 SUGGEST MS 81-Zrd-966180:51 Renal Profile Comments: Order Date: 01/18/18Order Info: 0790- 1 - RENALOrder Info: [id number] - TROP'TROP' Serial specimen #1, #2, #3, or #4: [address] [place] [address] Cyssmfxglx6272 [facility] [place], [phone] CO2 29.0 mmol/L (Normal) Range: 21.0-32.0 [...] A.D.A. criteria.Please note revised GLUCOSE reference range ovqypoqhx78/02/2018. 78-Kcp-477614:51 Troponin-I Comments: Order Date: 01/18/18Order Info: 0790-1 - RENALOrder Info: [id number] - TROP'TROP' Serial specimen #1, #2, #3, or #4: 1[facility] Mhloiotpur0759 [place], [phone] TROPONIN-I 0.02 ng/mL (Normal) Comments: TROPONIN-I EXPECTED VALUES <0.05 NEGATIVE 0.06 - 0.59 AT RISK OF MS > OR = 0.60 SUGGEST MS 30-Zva-099766:16 HgA1C , Office (94861) HgA1C , Office 7.7 % (Abnormal) Range: 4.6 - 7.1 20-Dlz-459509:47 Basic Metabolic Profile (BMP) Comments: CALL RESULTS TO [phone] Shriners Hospital Osjmwbxyvr2963 [place], [address] GAP 8 (Normal) [...] 200 mg/dLsuggests DIABETES MELLITUS per A.D.A. criteria. 51-Ynp-279757:47 BNP,B-Type NATRIURETIC PEPTIDE Comments: CALL RESULTS TO [phone] Shriners Hospital Dizjvkomtt[address] [place] [address], [address] B-TYPE JUSTIN PEP 580.2 pg/mL (Abnormal) Range: 0-100 99-Tli-150866:47 CBC W/Diff, Automated Comments: CALL RESULTS TO [phone] Shriners Hospital Nxdfccodpv2834 [place], [address] Absolute Lymph 0.67 {X10_3/ul} (Abnormal) [...] 4.6-6.2 WBC 5.6 K/mm3 (Normal) Range: 4.4-11.0 65-Tga-261555:47 Thyroid Stim Hormone (TSH) Comments: CALL RESULTS TO [phone] Shriners Hospital Ofcmiydbxd3948[address] [place] [address], [phone] TSH 2.08 {uIU/mL} (Normal) Range: 0.358-3.74 45-Ppl-07029:51 CBC, Platelets & Auto Diff Comments: PATIENT WAS FASTINGPERFORMED BY: [facility] Fhqslu1225 [facility] [id number] (64806) Immature Grans (Abs) 0.0 {x10E3/uL} (Normal) Range: [...] 4.14-5.80 WBC 8.6 {x10E3/uL} (Normal) Range: 3.4-10.8 31-Znb-79336:51 Metabolic Panel, Comprehensive Comments: PATIENT WAS FASTINGPERFORMED BY: LabCoInsp[facility] Medical Center VinelandWmptbk4761 [facility] [id number] (61678) ALT (SGPT) 16 [iU]/L (Normal) Range: 0-44 [...] 8-27 Glucose 122 mg/dL (Abnormal) Range: 65-99 04-Pbo-83911:51 TSH (69474) Comments: PATIENT WAS FASTINGPERFORMED BY: LabCoInspira Medical Center VinelandUioqde9418 [facility] [id number] TSH 5.070 {uIU/mL} (Abnormal) Range: 0.450-4.500 40-Dka-79425:51 CALCIFIDIOL (84264) VIT D 25 Comments: PATIENT WAS FASTINGPERFORMED BY: [facility] Ypqmwp7802 [facility] [id number] Vitamin D, 25-Hydroxy 27.8 ng/mL (Abnormal) Range: 30.0-100.0 Comments: Vitamin D deficiency has been defined by the [place] ofUniversity Hospitals Conneaut Medical Centercine and an Endocrine Society practice guideline as alevel of serum 25-OH vitamin D less than 20 ng/mL (1,2).The Endocrine Society went on to further define vitamin Dinsufficiency as a level between 21 and 29 ng/mL (2).1. IOM ([place] of Medicine). 2010. Dietary reference intakes for calcium and D. [place]: The National Academies Press.2. Yanna MF, Maral NC, Xander EDGAR, et al. Evaluation, treatment, and prevention of vitamin D deficiency: an Endocrine Society clinical practice guideline. JCEM. 2010; 96(7):1911-30. :51 Magnesium (20447) Comments: PATIENT WAS FASTINGPERFORMED BY: [facility] Bqwtwe8680 [facility] [place] [id number] Magnesium 1.9 mg/dL (Normal) Range: 1.6-2.3 8-Heg-052632:43 HgA1C , Office (22595) HgA1C , Office 7.3 % (Abnormal) Range: 4.6 - 7.1 :27 MICROALBUMIN: CREATININE Comments: PATIENT NOT FASTINGPERFORMED BY: [facility] Tvapmd3773 [facility] [id number] Information: NURSE DRAW RATIO (39616) AND (50126) Microalb/Creat Ratio 89.4 {mg/g_creat} (Abnormal) Range: 0.0-30.0 Microalbumin, Urine 142.2 ug/mL (Normal) Creatinine, Urine 159.1 mg/dL (Normal) :27 PARATHORMONE (73494) Comments: PATIENT NOT FASTINGPERFORMED BY: [facility] Ehrsmk9660 [facility] [id number] PTH, Intact 53 pg/mL (Normal) Range: 15-65 92-Ekq-495790:15 TSH (29271) Comments: PATIENT NOT FASTINGPERFORMED BY: [facility] Flzcsi5189 [facility] [id number] TSH 4.310 {uIU/mL} (Normal) Range: 0.450-4.500 51-Ahe-845080:15 METABOLIC PANEL, COMPREHENSIVE Comments: PATIENT NOT FASTINGPERFORMED BY: [facility] Wdxfxf3020 [facility] [id number] (07680) ALT (SGPT) 17 [iU]/L (Normal) Range: 0-44 [...] Glucose, Serum 231 mg/dL (Abnormal) Range: 65-99 10-Kmi-236129:15 CBC with auto diff (76696) Comments: PATIENT NOT FASTINGPERFORMED BY: [facility] [id number] [facility] [id number] Immature Grans (Abs) 0.0 {x10E3/uL} (Normal) Range: [...] 4.14-5.80 WBC 7.7 {x10E3/uL} (Normal) Range: 3.4-10.8 26-Qhk-[id number]:15 CALCIFIDIOL (04031) VIT D 25 Comments: PATIENT NOT FASTINGPERFORMED BY: [facility] [id number] [facility] [id number] Vitamin D, 25-Hydroxy 28.8 ng/mL (Abnormal) Range: 30.0-100.0 Comments: Vitamin D deficiency has been defined by the [place] [employer] and an Endocrine Society practice guideline as alevel of serum 25-OH vitamin D less than 20 ng/mL (1,2).The Endocrine Society went on to further define vitamin Dinsufficiency as a level between 21 and 29 ng/mL (2).1. IOM ([place] [employer]). 2010. Dietary reference intakes for calcium and D. [place]: The National Academies Press.2. Yanna MF, Maral NC, Xander EDGAR, et al. Evaluation, treatment, and prevention of vitamin D deficiency: an Endocrine Society clinical practice guideline. JCEM. 2010; 96(7):1911-30. 12-Cee-316430:34 Blood Glucose , Office (25341) Blood Glucose , Office 221 (Normal) 06-Kye-374289:34 HgA1C , Office (40373) HgA1C , Office 6.3 % (Normal) Range: 4.6 - 7.1 1-Yzg-054828:10 CBC W/Diff, Automated Comments: [facility] Eqbrrzstwu[address] [place], [place], [address] Absolute Lymph 1.60 {X10_3/ul} (Normal) Range: 0.83-4.51 [...] 4.6-6.2 WBC 7.5 K/mm3 (Normal) Range: 4.4-11.0 5-Gmg-077429:10 Comprehensive Metabolic Profil Comments: [facility] Aoxwxhlcqj60[address] [place], [place], [address] GAP 8 (Normal) Range: 5-15 CO2 29.0 [...] 200 mg/dLsuggests DIABETES MELLITUS per A.D.A. criteria. 8-Myt-559046:10 Prothrombin Time w/INR Comments: [facility] Ksmgxhyubh5345 [place], [address] INR 1.0 (Normal) PROTIME 13.1 s (Normal) Range: 11.7-14.9 6-Htf-056265:09 Bedside Glucose Comments: [facility] LaboratoryPoint of Rcrb[address]. [place], [place] [address] BEDSIDE GLU 249 mg/dL (Abnormal) Range: 70-110 Comments: MANAGEMENT OF PATIENT CARE PER NURSING PROTOCOL 75-Kqo-25564:55 Magnesium (85582) Comments: PATIENT WAS FASTINGPERFORMED BY: LabCo[address] [id number] BY: CB LabCoInspira Medical Center VinelandXnnrbt5240 [facility] [id number] Magnesium, Serum 2.1 mg/dL (Normal) Range: 1.6-2.3 :55 METABOLIC PANEL, Comments: PATIENT WAS FASTINGPERFORMED BY: [employer] [address] [id number] BY: ItrybeforeIbuyInspira Medical Center VinelandHibvtl4913 [facility] [id number] COMPREHENSIVE (46079) ALT (SGPT) 13 [iU]/L (Normal) Range: 0-44 [...] BY NMR Comments: PATIENT WAS FASTINGPERFORMED BY: ItrybeforeIbuy[address] [id number] BY: [facility]370 [facility] [id number] (17718) LP-IR Score <25 (Normal) Comments: INSULIN RESISTANCE MARKER <--Insulin Sensitive Insulin Resistant--> Percentile in Reference PopulationInsulin Resistance ScoreLP-IR Score Low 25th 50th 75th High <27 27 45 63 >63LP-IR Score is inaccurate if patient is non-fasting. .The LP-IR score is a laboratory developed [facility] that has beenassociated with insulin resistance [...] 1600 - 2000 Very High > 2000 75-Weq-90599:55 CALCIFIDIOL (85424) VIT D Comments: PATIENT WAS FASTINGPERFORMED BY: [place] 253117 [facility] [id number] BY: [facility]6370 [facility] [id number] 25 Vitamin D, 25-Hydroxy 35.2 ng/mL (Normal) Range: 30.0-100.0 Comments: Vitamin D deficiency has been defined by the [place] ofMedicine and an Endocrine Society practice guideline as alevel of serum 25-OH vitamin D less than 20 ng/mL (1,2).The Endocrine Society went on to further define vitamin Dinsufficiency as a level between 21 and 29 ng/mL (2).1. IOM ([place] of Medicine). 2010. Dietary reference intakes for calcium and D. [place]: The National Academies Press.2. Yanna MF, Maral NC, Xander EDGAR, et al. Evaluation, treatment, and prevention of vitamin D deficiency: an Endocrine Society clinical practice guideline. JCEM. 2010; 96(7):1911-30. 52-Kvd-76687:55 PSA (Prostate Specific Comments: PATIENT WAS FASTINGPERFORMED BY: ItrybeforeIbuy[address] [id number] BY: ItrybeforeIbuy Bpmpdz6152 [facility] [id number] Antigen), Screening (23030) Prostate Specific Ag, 1.2 ng/mL (Normal) Range: 0.0-4.0 Serum Comments: ZOCKO ECLIA methodology. .According to the [place] [employer], Serum PSA shoulddecrease and remain at undetectable levels after radicalprostatectomy. The AUA defines biochemical recurrence as an initialPSA value 0.2 ng/mL or greater followed by a subsequent confirmatoryPSA value 0.2 ng/mL or greater.Values obtained with d ifferent assay methods or kits cannot be usedinterchangeably. Results cannot be interpreted as absolute evidenceof the presence or absence of malignant disease. 87-Uvu-345229:38 Blood Glucose , Office (57512) Blood Glucose , Office 160 (Normal) 03-Ake-594391:00 CBC WITH MANUAL DIFF Comments: PATIENT NOT FASTINGPERFORMED BY: ItrybeforeIbuyInspira Medical Center VinelandEkabox6619 [facility] [id number] BY: Ininal[address] [id number] Inf ormation: NURSE DRAW (02540) Immature Grans (Abs) 0.0 {x10E3/uL} (Normal) Range: [...] 4.14-5.80 WBC 5.9 {x10E3/uL} (Normal) Range: 3.4-10.8 23-Ahl-804332:00 Vitamin B-12 Comments: PATIENT NOT FASTINGPERFORMED BY: [employer] [facility] [id number] BY: ItrybeforeIbuy[address] [id number] (cyanocobalamin) (72386) Vitamin B12 529 pg/mL (Normal) Range: 211-946 25-Kdj-230643:00 Methymalonic Acid, Serum Comments: PATIENT NOT FASTINGPERFORMED BY: HubbubTina [place] 9986270 [facility] [id number] BY: ItrybeforeIbuy[address] [id number] (32782) Methylmalonic Acid, Serum 284 nmol/L (Normal) Range: 0-378 31-Tgn-078123:59 ANCA-C (ANTI NEUTROPHIL Comments: copy to Dr. [phone] all these now; PATIENT WAS FASTINGPERFORMED BY: ItrybeforeIbuy[address] [id number] BY: LabThetaRayInspira Medical Center VinelandGdgciy5994 [place] [facility] [id number] CYTOPLASMIC ANTIBODY) Atypical pANCA <1:20 {titer} Comments: [...] follow up testing ofpositive sera with both AR-3 and MPO-ANCA enzyme immunoassays. Asmany as 5% serum samp les are positive only by EIA.Ref. AM J Clin Pathol 1999;111:507-513. Cytoplasmic (C-ANCA) <1:20 {titer} (Normal) Antiproteinase 3 (AR-3) Abs <3.5 U/mL (Normal) Range: 0.0-3.5 Antimyeloperoxidase (MPO) Abs <9.0 U/mL (Normal) Range: 0.0-9.0 21-Cqc-505595:59 Renal function Panel Comments: now; PATIENT WAS FASTINGPERFORMED BY: LabThetaRayMonmouth Medical CenterMznrfseutp8918 [facility] [id number] BY: LabThetaRayInspira Medical Center VinelandRqkjxz2967 [facility] [id number] (89355) Albumin, Serum 4.1 g/dL (Normal) Range: 3.5-4.8 [...] Glucose, Serum 166 mg/dL (Abnormal) Range: 65-99 14-Ypt-304844:59 LIPOPROTEIN, BLD, BY NMR Comments: now; PATIENT WAS FASTINGPERFORMED BY: BN [facility] Wpcebteuwm3502 [facility] [id number] BY: CB [facility] Whhqgg5833 [facility] [id number] (28338) LP-IR Score 39 (Normal) Comments: INSULIN RESISTANCE MARKER <--Insulin Sensitive Insulin Resistant--> Percentile in Reference PopulationInsulin Resistance ScoreLP-IR Score Low 25th 50th 75th High <27 27 45 63 >63LP-IR Score is inaccurate if patient is non-fasting. .The LP-IR score is a laboratory developed [facility] that has beenassociated with insulin resistance [...] 1600 - 2000 Very High > 2000 34-Uuw-214951:59 TSH (36795) Comments: PATIENT WAS FASTINGPERFORMED BY: [employer] Ckljhstyou4874 [facility] [id number] BY: [employer] Vyebee6065 [facility] [id number] TSH 2.960 {uIU/mL} (Normal) Range: 0.450-4.500 67-Sdd-690070:59 COMPLEMENT C4 (95906) Comments: PATIENT WAS FASTINGPERFORMED BY: Nacuii[address] [id number] BY: P[employer] LabAustin [employer]istics Incorporated Zkswnu[address] [facility] Centerin [place] [id number] Complement C4, Serum 32 mg/dL (Normal) Range: 14-44 99-Qbx-986245:59 COMPLEMENT C3 (30856) Comments: PATIENT WAS FASTINGPERFORMED BY: Nacuiiton1447 [facility] [id number] BY: [employer] LabAustin [employer] Incorporated Tairaj1419 [facility] [id number] Complement C3, Serum 137 mg/dL (Normal) Range: 82-167 48-Lwo-555940:59 MICROALBUMIN: CREATININE Comments: PATIENT WAS FASTINGPERFORMED BY: ItrybeforeIbuy[address] [id number] BY: ItrybeforeIbuyInspira Medical Center VinelandBbgykn5624 [facility] [id number] RATIO (26954) AND (71182) Microalb/Creat Ratio 118.3 {mg/g_creat} (Abnormal) Range: 0.0-30.0 Microalbumin, Urine 52.3 ug/mL (Normal) Creatinine, Urine 44.2 mg/dL (Normal) 31-Dbw-329245:59 SPEP (37455) Comments: PATIENT WAS FASTINGPERFORMED BY: ItrybeforeIbuy[address] [id number] BY: ItrybeforeIbuyInspira Medical Center VinelandXjqdgy6525 [facility] [id number] Please note: SPRCS (Normal) Comments: Protein electrophoresis scan will follow via computer, mail, orcourier delivery. A/G Ratio 1.2 (Normal) Range: 0.7-1.7 Globulin, Total 3.1 g/dL (Normal) Range: 2.2-3.9 M-Maxime Not Observed g/dL (Normal) Gamma Globulin 0.9 g/dL (Normal) Range: 0.4-1.8 Beta Globulin 1.1 g/dL (Normal) Range: 0.7-1.3 Pzobl-0-Wqqqnyxh 0.9 g/dL (Normal) Range: 0.4-1.0 Afjmc-1-Fnqkxbeb 0.2 g/dL (Normal) Range: 0.0-0.4 Albumin 3.7 g/dL (Normal) Range: 2.9-4.4 Protein, Total, Serum 6.8 g/dL (Normal) Range: 6.0-8.5 28-Fsz-403409:59 DNA ANTIBODY-NATV/DBL ST Comments: PATIENT WAS FASTINGPERFORMED BY: ItrybeforeIbuy[address] [id number] BY: ItrybeforeIbuyTina V[place] 9986270 [facility] [id number] (28364) test code 976525 Anti-DNA (DS) Ab Qn <1 {IU/mL} (Normal) Range: 0-9 Comments: Negative <5 Equivocal 5 - 9 Positive >9 36-Fby-778497:28 Alcohol, Blood (Medical)-Serum Comments: [facility] [address] [place], [address] SERUM ETOH < 3.0 mg/dL (Normal) Comments: The serum:whole blood ethanol ratio is approximately 1.14and varies slightly with hematocrit.Medical Alcohol reference interval and critical value innon-tolerant individuals; 50 - 100 Impairment 100 Intoxication 100 - 250 Severe Poisoning 250 - 400 Deep/possible fatal coma 39-Jns-665081:28 CBC W/Diff, Automated Comments: [facility] [address] [place], [place], [address] Absolute Lymph 1.85 {X10_3/ul} (Normal) Range: 0.83-4.51 [...] 4.6-6.2 WBC 7.1 K/mm3 (Normal) Range: 4.4-11.0 27-Wjt-047370:28 Comprehensive Metabolic Profil Comments: [facility] Yev[address]cywvzr[address] [place], [place], [address] GAP 10 (Normal) Range: 5-15 CO2 29.0 [...] 126 mg/dLsuggests DIABETES MELLITUS per A.D.A. criteria. 35-Rla-103111:28 Troponin-I Comments: 'TROP' Serial specimen #1, #2, #3, or #4: 1[facility] Z[address]ktmkmrte[address] [place], [address] TROPONIN-I 0.03 ng/mL (Normal) Comments: TROPONIN-I EXPECTED VALUES <0.05 NEGATIVE 0.06 - 0.59 AT RISK OF MS > OR = 0.60 SUGGEST MS 79-Qke-715268:08 HgA1C , Office (66032) HgA1C , Office 6.8 % (Normal) Range: 4.6 - 7.1 :59 Metabolic Panel, Basic (18229) Comments: recheck in one week; PATIENT WAS FASTINGPERFORMED BY: saperatecFormerly [facility] [id number] Calcium, Serum 8.5 mg/dL (Abnormal) Range: 8.6-10.2 [...] Glucose, Serum 136 mg/dL (Abnormal) Range: 65-99 17-Jkt-078258:20 CBC (Auto) (82534) Comments: PATIENT NOT FASTINGPERFORMED BY: PulseOn LabCoLatinCoinFormerly [facility] [id number] Platelets 183 {x10E3/uL} (Normal) Range: 150-379 RDW 13.6 % (Normal) Range: 12.3-15.4 MCHC 34.8 g/dL (Normal) Range: 31.5-35.7 MCH 34.1 pg (Abnormal) Range: 26.6-33.0 MCV 98 fL (Abnormal) Range: 79-97 Hematocrit 40.5 % (Normal) Range: 37.5-51.0 Hemoglobin 14.1 g/dL (Normal) Range: 12.6-17.7 RBC 4.13 {x10E6/uL} (Abnormal) Range: 4.14-5.80 WBC 7.9 {x10E3/uL} (Normal) Range: 3.4-10.8 63-Qhg-861066:20 Magnesium (34984) Comments: PATIENT NOT FASTINGPERFORMED BY: LabCoInspira Medical Center VinelandYxlmbv7108 [facility] [id number] Magnesium, Serum 2.2 mg/dL (Normal) Range: 1.6-2.3 40-Cdk-754211:20 Renal function Panel (85287) Comments: PATIENT NOT FASTINGPERFORMED BY: LabCoInspira Medical Center VinelandJnocny9541 [facility] [id number] Albumin, Serum 4.2 g/dL (Normal) Range: 3.5-4.8 [...] Glucose, Serum 266 mg/dL (Abnormal) Range: 65-99 42-Eip-878718:54 Basic Metabolic Profile (BMP) Comments: Order Date: 12/25/16Order Info: 0667-1 - *BMPOrder Info: 69604-1 - *MagnesiumOrder Date: 12/25/16Order Info: - *MagnesiumComments: Reason:[facility] Vyyocxpkpd[address] [place], [address] GAP 11 (Normal) Range: 5-15 CO2 30.0 [...] 200 mg/dLsuggests DIABETES MELLITUS per A.D.A. criteria. 79-Eia-722552:54 Magnesium Comments: Order Date: 12/25/16Order Info: 0667-1 - *BMPOrder Info: - *MagnesiumOrder Date: 12/25/16Order Info: - *MagnesiumComments: Reason:[facility] Yiwuurdbkj[address] [place], [address] MG 2.0 mg/dL (Normal) Range: 1.8-2.4 71-Quc-996329:35 Basic Metabolic Profile (BMP) Comments: Order Date: 12/18/16Order Info: 0667-1 - *BMPOrder Info: - *MagnesiumComments: For [place] episodeOrder Info: 3026-2 - *T4 (Total)Comments: Reason: For [place] episoeOrder Info: 3016-3 - *TSHComments: Alicia son: For [place] episodeOrder Date: 02/20/17Order Info: 3016-3 - *TSHComments: Reason: For [facility] [address]ksmzdzk[address] [place], [address] GAP 12 (Normal) Range: 5-15 [...] 200 mg/dLsuggests DIABETES MELLITUS per A.D.A. criteria. 93-Rie-251334:35 CBC-Complete Blood Cnt No Diff Comments: Order Date: 12/18/16Order Info: 3016-3 - *TSHComments: Reason: For [facility] Pdtgjvowhn[address] [place], [place], [address] MPV 10.7 fL (Normal) Range: 6.2-12.0 PLT [...] 4.6-6.2 WBC 8.1 K/mm3 (Normal) Range: 4.4-11.0 66-Ygl-743577:35 Magnesium Comments: Order Date: 12/18/16Order Info: 666-1 - *BMPOrder Info: - *MagnesiumComments: For [place] episodeOrder Info: 3026-2 - *T4 (Total)Comments: Reason: For [place] episoeOrder Info: 301-3 - *TSHComments: [place] son: For [place] episodeOrder Date: 12/18/16Order Info: 3015-3 - *TSHComments: Reason: For [place] episodeC[facility] Qquujgermf7[address] [place], [place], [phone](550) MG 2.0 mg/dL (Normal) Range: 1.8-2.4 79-Zdg-791559:35 T4 Total, Thyroxin Comments: Order Date: 12/18/16Order Info: 666- - *BMPOrder Info: - *MagnesiumComments: For [place] episodeOrder Info: 3026-2 - *T4 (Total)Comments: Reason: For [place] episoeOrder Info: 3015-3 - *TSHC omments: Alicia son: For [place] episodeOrder Date: 12/18/16Order Info: 3016-3 - *TSHComments: Reason: For [place] [facility]WM[facility] Axbctysrbm5[address] [place], [place], [address] T4 THYROXIN 11.3 ug/dL (Normal) Range: 4.5-12.1 98-Ufk-373008:35 Thyroid Stim Hormone (TSH) Comments: Order Date: 12/18/16Order Info: 666-1 - *BMPOrder Info: - *MagnesiumComments: For [place] episodeOrder Info: 3026-2 - *T4 (Total)Comments: Reason: For [place] episoeOrder Info: 3016-3 - *TSHComments: [place] son: For [place] episodeOrder Date: 12/18/16Order Info: 3015-3 - *TSHComments: Reason: For [place] [facility]WM[facility] Zmvprlaxzt64[address] [place], [address] TSH 0.86 {uIU/mL} (Normal) Range: 0.358-3.74 8-Jkc-462063:05 PSA (Prostate Specific Comments: PATIENT NOT FASTINGPERFORMED BY: LabCoTina [place] 9986270 [facility] [id number] Information: [id number] NURSE DRAW Antigen), Screening (07610) Prostate Specific Ag, 1.0 ng/mL (Normal) Range: 0.0-4.0 Serum Comments: ZOCKO ECLIA methodology. .According to the [place] [employer], Serum PSA shoulddecrease and remain at undetectable levels after radicalprostatectomy. The AUA defines biochemical recurrence as an initialPSA value 0.2 ng/mL or greater followed by a subsequent confirmatoryPSA value 0.2 ng/mL or greater.Values obtained with d ifferent assay methods or kits cannot be usedinterchangeably. Results cannot be interpreted as absolute evidenceof the presence or absence of malignant disease. 61-Pla-264840:01 Metabolic Panel, Basic Comments: copy to Dr. hu; PATIENT NOT FASTINGPERFORMED BY: LabMclaren [facility]ape[facility] Region6370 [facility] [id number] Information: [id number] (19566) Calcium, Serum 9.3 mg/dL (Normal) Range: 8.6-10.2 [...] Glucose, Serum 192 mg/dL (Abnormal) Range: 65-99 19-Qim-294105:49 BNTP (15869) Comments: PATIENT NOT FASTINGPERFORMED BY: LabCoInspira Medical Center VinelandJvccfz8463 [facility] [id number] Information: [id number],[id number] B-Type Natriuretic Peptide 273.9 pg/mL (Abnormal) Range: 0.0-100.0 8-Ool-486950:01 HgA1C , Office (06185) HgA1C , Office 6.1 % (Normal) Range: 4.6 - 7.1 92-Rsl-352868:02 Basic Metabolic Profile (BMP) Comments: [facility] [address] [place], [address] GAP 6 (Normal) Range: 5-15 [...] A.D.A. criteria. :02 BNP,B-Type NATRIURETIC PEPTIDE Comments: [facility] [address] [place], [address] B-TYPE JUSTIN PEP 261.3 pg/mL (Abnormal) Range: 0-100 42-Sfn-152545:22 TSH (72362) Comments: PATIENT NOT FASTINGPERFORMED BY: [facility] Ypnlge3606 [facility] [id number] TSH 3.740 {uIU/mL} (Normal) Range: 0.450-4.500 87-Iza-257322:22 METABOLIC PANEL, COMPREHENSIVE Comments: PATIENT NOT FASTINGPERFORMED BY: [facility]6370 [facility] [id number] (16479) ALT (SGPT) 19 [iU]/L (Normal) Range: 0-44 [...] Glucose, Serum 155 mg/dL (Abnormal) Range: 65-99 99-Ggy-295670:22 CBC W/AUTO DIFF WBC Comments: PATIENT NOT FASTINGPERFORMED BY: [facility]6370 [facility] [id number] Information: [id number]; apt. 4--16 (99045) Immature Grans (Abs) 0.0 {x10E3/uL} (Normal) Range: [...] 4.14-5.80 WBC 7.6 {x10E3/uL} (Normal) Range: 3.4-10.8 00-Zrx-888539:57 HgA1C , Office (26268) HgA1C , Office 7.1 % (Normal) Range: 4.6 - 7.1 :13 Lipid Profile Comments: [facility] Spnqhactok[address] [place], [place], [address](698) VLDL 78 mg/dL (Abnormal) Range: 5-40 LDL [...] mg/dL High Risk :13 Liver Profile Comments: [facility] Kwbmfvyect[address] [place], [address] D BILI 0.10 mg/dL (Normal) Range: 0.00-0.30 T BILI 0.40 mg/dL (Normal) Range: 0.20-1.00 ALT 30 U/L (Normal) Range: 12-78 ALK P 99 U/L (Normal) Range: 50-136 AST 23 U/L (Normal) Range: 15-37 GLOB 3.6 g/dL (Abnormal) Range: 2.3-3.5 ALB 3.3 g/dL (Abnormal) Range: 3.4-5.0 T PROT 6.9 g/dL (Normal) Range: 6.4-8.2 39-Idw-337131:33 Blood Glucose , Office (92330) Blood Glucose , Office 184 (Normal) Comments: told to stop juices and tighten diet 98-Odu-23248:25 METABOLIC PANEL, BASIC Comments: PATIENT NOT FASTINGPERFORMED BY: [facility] Blzsof9157 [facility] [id number] Information: [id number]; apt. 10-26-15 creat stayed same (93099) Calcium, Serum 9.0 mg/dL (Normal) Range: 8.6-10.2 [...] Glucose, Serum 127 mg/dL (Abnormal) Range: 65-99 44-Div-256897:26 Metabolic Panel, Basic Comments: standing order; PATIENT NOT FASTINGPERFORMED BY: zkipster70 [facility] [id number] Information: [id number] (14797) Calcium, Serum 9.1 mg/dL (Normal) Range: 8.6-10.2 [...] Glucose, Serum 338 mg/dL (Abnormal) Range: 65-99 18-Rzn-064253:36 CULTURE, SPUTUM (97563) Comments: PATIENT NOT FASTINGPERFORMED BY: ProNervelin6370 [facility] [id number] Information: SRC:[facility] [[email or web address]] [id number] Result 1 RRF (Normal) Comments: Routine respiratory liu Lower Respiratory Culture Final report (Normal) :31 HgA1C , Office (52075) HgA1C , Office 6.4 % (Normal) Range: 4.6 - 7.1 :31 Blood Glucose , Office (49000) Blood Glucose , Office 282 (Normal) :38 PSA (PROSTATE SPECIFIC Comments: PATIENT NOT FASTINGPERFORMED BY: ProNervelin6370 [facility] [id number] ANTIGEN) (V76.44) Prostate Specific Ag, 1.0 ng/mL (Normal) Range: 0.0-4.0 Serum Comments: Erik ECLIA methodology. .According to the [place] [employer], Serum PSA shoulddecrease and remain at undetectable levels after radicalprostatectomy. The AUA defines biochemical recurrence as an initialPSA value 0.2 ng/mL or greater followed by a subsequent confirmatoryPSA value 0.2 ng/mL or greater.Values obtained with d ifferent assay methods or kits cannot be usedinterchangeably. Results cannot be interpreted as absolute evidenceof the presence or absence of malignant disease. :38 TSH (42244) Comments: PATIENT NOT FASTINGPERFORMED BY: PulseOn [facility] Ajhdbl5730 [address] [facility] Hospitalbl[facility] [place] [id number] TSH 4.310 {uIU/mL} (Normal) Range: 0.450-4.500 :38 Magnesium (67511) Comments: PATIENT NOT FASTINGPERFORMED BY: [facility] Bplgjg5704 [facility] [facility] HospitalDublin [place] [id number] Magnesium, Serum 1.9 mg/dL (Normal) Range: 1.6-2.6 :38 Metabolic Panel, Comments: PATIENT NOT FASTINGPERFORMED BY: [facility] Xumtki[address] [facility]in [place] [id number] Information: [id number]; [address] 07-[address]-15 [facility] (82760) ALT (SGPT) 28 [iU]/L (Normal) Range: 0-44 [...] (Abnormal) Range: 65-99 :08 HgA1C , Office (29902) HgA1C , Office 6.5 % (Normal) Range: 4.6 - 7.1 :08 Blood Glucose , Office (38653) Blood Glucose , Office 277 (Normal) :52 CBC, Platelet, No Differential Comments: PATIENT WAS FASTINGPERFORMED BY: ProNervelin6370 [facility] [id number] Platelets 184 {x10E3/uL} (Normal) Range: 150-379 RDW 14.1 % (Normal) Range: 12.3-15.4 MCHC 34.2 g/dL (Normal) Range: 31.5-35.7 MCH 33.7 pg (Abnormal) Range: 26.6-33.0 MCV 99 fL (Abnormal) Range: 79-97 Hematocrit 40.3 % (Normal) Range: 37.5-51.0 Hemoglobin 13.8 g/dL (Normal) Range: 12.6-17.7 RBC 4.09 {x10E6/uL} (Abnormal) Range: 4.14-5.80 WBC 8.2 {x10E3/uL} (Normal) Range: 3.4-10.8 :52 Renal Panel (10) Comments: PATIENT WAS FASTINGPERFORMED BY: HubbubInspira Medical Center VinelandJlduut9915 [facility] [id number] Information: [id number] Albumin, Serum 4.1 g/dL (Normal) Range: 3.5-4.8 [...] 65-99 :05 Lipid Profile Comments: Test performed at:[facility] Eroicuejcr[address] [place] [address] [id number] VLDL 35 mg/dL (Normal) Range: 5-40 LDL [...] Risk :05 Liver Profile Comments: Test performed at:[facility] Qsxbisotnn3823 [place], [place] [address] D BILI 0.20 mg/dL (Normal) Range: 0.00-0.30 T BILI 0.70 mg/dL (Normal) Range: 0.00-4.00 ALT 27 U/L (Normal) Range: 12-78 ALK P 80 U/L (Normal) Range: 50-136 AST 26 U/L (Normal) Range: 15-37 GLOB 3.4 g/dL (Normal) Range: 2.7-4.2 ALB 3.7 g/dL (Normal) Range: 3.4-5.0 T PROT 7.1 g/dL (Normal) Range: 6.4-8.2 70-Xli-870100:47 Vitamin B-12 Comments: these today; PATIENT NOT FASTINGPERFORMED BY: Hubbub Zmzkta4540 [facility] [id number] BY: ItrybeforeIbuy[address] [id number] (cyanocobalamin) (24580) Vitamin B12 526 pg/mL (Normal) Range: 211-946 11-Rww-422151:47 RETICULOCYTE COUNT (67222) Comments: PATIENT NOT FASTINGPERFORMED BY: zkipster70 [facility] [id number] BY: ItrybeforeIbuy[address] [id number] Reticulocyte Count 2.1 % (Normal) Range: 0.6-2.6 07-Yyw-676423:47 Folic Acid Serum (35317) Comments: PATIENT NOT FASTINGPERFORMED BY: [email or web address] [facility] [id number] BY: ItrybeforeIbuy[address] [id number] Information: [id number] Folate (Folic Acid), Serum >20.0 ng/mL (Normal) Comments: A serum folate concentration of less than 3.1 ng/mL isconsidered to represent clinical deficiency. 86-Sdc-202156:47 Methymalonic Acid, Serum Comments: PATIENT NOT FASTINGPERFORMED BY: Hubbub [id number] [facility] [id number] BY: Ininal[address] [id number] (56657) Methylmalonic Acid, Serum 219 nmol/L (Normal) Range: 0-378 85-Cod-16847:42 HgA1C , Office (31637) HgA1C , Office 6.5 % (Normal) Range: 4.6 - 7.1 :42 Blood Glucose , Office (40136) Blood Glucose , Office 194 (Normal) :13 Basic Metabolic Profile (BMP) Comments: Test performed at:[facility] Wquzpromsd1177 [facility] [place] [address] GAP 8 (Normal) Range: 5-15 CO2 28.0 [...] Basic Metabolic Profile (BMP) Comments: Test performed at:[facility] Cqqcymiqqy4889 [facility]. [place], [place] [address] GAP 6 (Normal) Range: 5-15 CO2 29.0 [...] :22 BNP,B-Type NATRIURETIC PEPTIDE Comments: Test performed at:[facility] [address]mcd[address] [place] [address] B-TYPE JUSTIN PEP 337.5 pg/mL (Abnormal) Range: 0-100 22-Mtx-433393:19 Magnesium (28831) Comments: 2 weeks and in three months (approximately); PATIENT WAS FASTINGPERFORMED BY: [facility] Dhaqco6091 [facility] [id number] Magnesium, Serum 1.9 mg/dL (Normal) Range: 1.6-2.6 38-Oaq-389625:19 Renal function Panel (36197) Comments: 2 weeks; PATIENT WAS FASTINGPERFORMED BY: [facility] Njaqtc5493 [facility] [id number] Phosphorus, Serum 3.2 mg/dL (Normal) Range: 2.5-4.5 79-Stb-665515:19 TSH (75537) Comments: PATIENT WAS FASTINGPERFORMED BY: [facility] Pyrnjj7778 [facility] [id number] TSH 2.460 {uIU/mL} (Normal) Range: 0.450-4.500 91-Wws-344640:19 METABOLIC PANEL, COMPREHENSIVE Comments: PATIENT WAS FASTINGPERFORMED BY: [facility] Pmfkgs2567 [facility] [id number] (44698) ALT (SGPT) 21 [iU]/L (Normal) Range: 0-44 [...] Glucose, Serum 131 mg/dL (Abnormal) Range: 65-99 86-Gmu-573528:19 LIPID PANEL (78738) Comments: PATIENT WAS FASTINGPERFORMED BY: Ohloh [facility] [id number] LDL/HDL Ratio 0.7 {ratio_units} (Normal) Range: 0.0-3.6 [...] Cholesterol, Total 118 mg/dL (Normal) Range: 100-199 01-Wmy-028238:19 CBC W/AUTO DIFF WBC Comments: PATIENT WAS FASTINGPERFORMED BY: zkipster70 [facility] [id number] Information: [id number] (73394) Immature Grans (Abs) 0.0 {x10E3/uL} (Normal) Range: [...] Range: 3.4-10.8 :38 Blood Glucose , Office (73404) Blood Glucose , Office 229 (Normal) :38 HgA1C , Office (55440) HgA1C , Office 6.7 % (Normal) Range: 4.6 - 7.1 :23 Basic Metabolic Profile (BMP) Comments: Test performed at:[facility] Fdshwnrtke[address] [place], [place] [id number] GAP 6 (Normal) Range: 5-15 CO2 28.0 [...] 126 mg/dLsuggests DIABETES MELLITUS per A.D.A. criteria. 91-Zvp-414075:23 BNP,B-Type NATRIURETIC PEPTIDE Comments: Test performed at:[facility] Tgtfglhpul1180 [address] GoyalDusty [place], [place] [address] B-TYPE JUSTIN PEP 348.7 pg/mL (Abnormal) Range: [...] :58 BTNP 261.6 pg/mL (Abnormal) Range: 0-100 64-Woj-360225:47 CBC (Auto) (68072) Comments: PATIENT NOT FASTINGPERFORMED BY: [facility] Djqcqg6556 [facility] [id number] Platelets 165 {x10E3/uL} (Normal) Range: 150-379 RDW 13.9 % (Normal) Range: 12.3-15.4 MCHC 34.3 g/dL (Normal) Range: 31.5-35.7 MCH 33.8 pg (Abnormal) Range: 26.6-33.0 MCV 99 fL (Abnormal) Range: 79-97 Hematocrit 38.5 % (Normal) Range: 37.5-51.0 Hemoglobin 13.2 g/dL (Normal) Range: 12.6-17.7 RBC 3.91 {x10E6/uL} (Abnormal) Range: 4.14-5.80 WBC 6.7 {x10E3/uL} (Normal) Range: 3.4-10.8 21-Quo-387872:47 Renal function Panel Comments: PATIENT NOT FASTINGPERFORMED BY: [facility]ThetaRayIn[facility] VinelandXehibd7181 [facility] [id number] Information: [id number] (60737) Albumin, Serum 4.0 g/dL (Normal) Range: 3.5-4.8 [...] Glucose, Serum 144 mg/dL (Abnormal) Range: 65-99 27-Edg-986477:47 MAGNESIUM (17828) Comments: PATIENT NOT FASTINGPERFORMED BY: [facility]Co[facility] VinelandFtglbg6218 [facility] [id number] Magnesium, Serum 1.7 mg/dL (Normal) Range: 1.6-2.6 88-Ado-20090:28 HgA1C , Office (01874) HgA1C , Office 6.6 % (Normal) Range: 4.6 - 7.1 :28 Blood Glucose , Office (17833) Blood Glucose , Office 148 (Normal) :54 [...] CHOL 130 mg/dL (Normal) Comments: <200 mg/dL Uzsqgoszc464-307 mg/dL Borderline>240 mg/dL High Risk HDL 62 [...] performed using the TPSA assay method for [employer] chemistry system. Values obtained with differentassay methods [...] CMP MIAMAG ADDED PER REQUEST Range: 0.358-3.74 72-Mzv-874318:13 BMP GAP 7 (Normal) Range: 5-15 CO2 [...] 126 mg/dLsuggests DIABETES MELLITUS per A.D.A. criteria. 38-Vpx-56983:37 Metabolic Panel, Basic Comments: recheck in 1-2 weeks; PATIENT NOT FASTINGPERFORMED BY: [place] [id number] [facility] [id number] Information: [id number] (71570) Calcium, Serum 8.7 mg/dL (Normal) Range: 8.6-10.2 [...] Glucose, Serum 161 mg/dL (Abnormal) Range: 65-99 72-Dsh-132521:00 BNTP (34552) Comments: PATIENT NOT FASTINGPERFORMED BY: [address] [id number] Information: [id number] ORDER NO DRAW F EE B-Type Natriuretic Peptide 899.8 pg/mL (Abnormal) Range: 0.0-100.0 72-Amh-768116:14 CULTURE, SPUTUM (15625) Comments: PATIENT NOT FASTINGPERFORMED BY: [address] [id number] Result 1 RRF (Normal) Comments: Routine respiratory liu Lower Respiratory Culture Final report (Normal) 39-Ocn-525746:00 Metabolic Panel, Basic Comments: PATIENT NOT FASTINGPERFORMED BY: [address] [id number] Information: [id number] (45171) Calcium, Serum 8.6 mg/dL (Normal) Range: 8.6-10.2 [...] Glucose, Serum 129 mg/dL (Abnormal) Range: 65-99 30-Eih-573659:22 CBC WITH MANUAL DIFF Comments: all copies of labs to Dr. hu; PATIENT WAS FASTINGPERFORMED BY: [facility] Svxmzj3611 [facility] [id number] Information: [id number] (41003) Immature Grans (Abs) 0.0 {x10E3/uL} (Normal) Range: [...] 4.14-5.80 WBC 7.7 {x10E3/uL} (Normal) Range: 3.4-10.8 95-Oty-541801:22 MICROALBUMIN: CREATININE RATIO Comments: PATIENT WAS FASTINGPERFORMED BY: ItrybeforeIbuyInspira Medical Center VinelandLfskwb9184 [facility] [id number] (16240) AND (80064) Microalb/Creat Ratio 135.4 {mg/g_creat} (Abnormal) Range: 0.0-30.0 Creatinine, Urine 126.0 mg/dL (Normal) Range: 22.0-328.0 Microalbumin, Urine 170.6 ug/mL (Abnormal) Range: 0.0-17.0 07-Eyx-158915:22 METABOLIC PANEL, COMPREHENSIVE Comments: PATIENT WAS FASTINGPERFORMED BY: ItrybeforeIbuyInspira Medical Center VinelandGyqygf5990 [facility] [id number] (68822) ALT (SGPT) 14 [iU]/L (Normal) Range: 0-44 [...] mg/dL (Abnormal) Range: 65-99 :22 LIPID PANEL (18435) Comments: PATIENT WAS FASTINGPERFORMED BY: Ohloh [facility] [id number] LDL/HDL Ratio 0.8 {ratio_units} (Normal) Range: 0.0-3.6 LDL Cholesterol Calc 40 mg/dL (Normal) Range: 0-99 VLDL Cholesterol Mike 27 mg/dL (Normal) Range: 5-40 HDL Cholesterol 53 mg/dL (Normal) Comments: According to ATP-III Guidelines, HDL-C >59 mg/dL is considered anegative risk factor for CHD. Triglycerides 134 mg/dL (Normal) Range: 0-149 Cholesterol, Total 120 mg/dL (Normal) Range: 100-199 :22 TSH (09438) Comments: PATIENT WAS FASTINGPERFORMED BY: [email or web address] [facility] [id number] TSH 3.630 {uIU/mL} (Normal) Range: 0.450-4.500 :34 Blood Glucose , Office (06820) Blood Glucose , Office 164 (Normal) :34 HgA1C , Office (70643) HgA1C , Office 6.4 % (Normal) Range: 4.6 - 7.1 :31 LIPID PANEL (31383) Comments: copy all labs to [facility]; PATIENT WAS FASTINGPERFORMED BY: [employer] Fcwdmg6707 [facility] [id number] LDL/HDL Ratio 0.9 {ratio_units} (Normal) Range: 0.0-3.6 [...] (PROSTATE SPECIFIC Comments: PATIENT WAS FASTINGPERFORMED BY: zkipster70 [facility] [id number] ANTIGEN) (V76.44) Prostate Specific Ag, 1.3 ng/mL (Normal) Range: 0.0-4.0 Serum Comments: JAZZ TECHNOLOGIESIA methodology. .According to the [place] [employer], Serum PSA shoulddecrease and remain at undetectable levels after radicalprostatectomy. The AUA defines biochemical recurrence as an initialPSA value 0.2 ng/mL or greater followed by a subsequent confirmatoryPSA value 0.2 ng/mL or greater.Values obtained with d ifferent assay methods or kits cannot be usedinterchangeably. Results cannot be interpreted as absolute evidenceof the presence or absence of malignant disease. :31 TSH (45994) Comments: PATIENT WAS FASTINGPERFORMED BY: ItrybeforeIbuy Oxnbjl1385 [facility] [id number] TSH 3.240 {uIU/mL} (Normal) Range: 0.450-4.500 :31 MICROALBUMIN: CREATININE RATIO Comments: PATIENT WAS FASTINGPERFORMED BY: Hubbub Fajalm4749 [facility] [id number] (64516) AND (83161) Microalb/Creat Ratio 51.5 {mg/g_creat} (Abnormal) Range: 0.0-30.0 Microalbumin, Urine 104.3 ug/mL (Abnormal) Range: 0.0-17.0 Creatinine, Urine 202.4 mg/dL (Normal) Range: 22.0-328.0 :31 METABOLIC PANEL, COMPREHENSIVE Comments: PATIENT WAS FASTINGPERFORMED BY: SLAVA ItrybeforeIbuy Opddbw7778 [facility] [id number] (42447) ALT (SGPT) 13 [iU]/L (Normal) Range: 0-44 [...] MANUAL DIFF Comments: PATIENT WAS FASTINGPERFORMED BY: ItrybeforeIbuy Xknfzn0345 [facility] [id number] Information: ADD [id number] AND DRAW FEE 99 9418 (27622) Immature Grans (Abs) 0.0 {x10E3/uL} (Normal) Range: [...] interval change :42 Blood Glucose , Office (46760) Blood Glucose , Office 171 (Normal) 11-Cpq-415168:41 HgA1C , Office (62777) HgA1C , Office 6.1 % (Normal) Range: 4.6 - 7.1 59-Wxw-860495:36 CHEST, PA AND LATERAL Radiology Report See [...] Sue M.D.December 11, 2012 at 4:00:01 PM [id number] Signed GP/GP If you are the referring physician and would like to consult with theradiologist who provided this interpretation, please contact James Trejo at . If this radiologist is unavailable, youwill be directed to another radiologist to assist. If you are a patient with a question regarding this report, pleasecontactyour referring physician directly. Professional Interpretation Provided By: [employer], Phone , These documents contain legally protected [...] 12/11/12 1605 Sign by: Louis Sue MD 20-Vas-76103:56 CBC, Platelets & Auto Diff Comments: PATIENT NOT FASTINGPERFORMED BY: LabCoInsp[facility] VinelandYspgwv0576 [facility] [id number] Information: [id number] (34139) Immature Grans (Abs) 0.0 {x10E3/uL} (Normal) Range: [...] (Normal) Range: 4.0-10.5 :56 Metabolic Panel, Basic (88989) Comments: PATIENT NOT FASTINGPERFORMED BY: [facility] [id number] Calcium, Serum 9.5 mg/dL (Normal) Range: 8.6-10.2 [...] Range: 65-99 :03 Blood Glucose , Office (30928) Blood Glucose , Office 185 (Normal) :03 HgA1C , Office (72637) HgA1C , Office 5.6 % (Normal) Range: 4.6 - 7.1 4-Mjt-910429:36 CBC WITH MANUAL DIFF Comments: send cardiology Dr. hu; PATIENT WAS FASTINGPERFORMED BY: LabCoInspira Medical Center VinelandVordad7064 [facility] [id number] Information: [id number] (94754) Immature Grans (Abs) 0.0 {x10E3/uL} (Normal) Range: [...] 4.14-5.80 WBC 10.9 {x10E3/uL} (Abnormal) Range: 4.0-10.5 0-Nly-524953:36 MICROALBUMIN: CREATININE RATIO Comments: PATIENT WAS FASTINGPERFORMED BY: [facility]CoInsp[facility] Center VinelandNpcqnp7232 [facility] [id number] (01461) AND (42571) Microalb/Creat Ratio 37.8 {mg/g_creat} (Abnormal) Range: 0.0-30.0 Creatinine, Urine 138.0 mg/dL (Normal) Range: 22.0-328.0 Microalbumin, Urine 52.1 ug/mL (Abnormal) Range: 0.0-17.0 5-Yly-684899:36 METABOLIC PANEL, COMPREHENSIVE Comments: PATIENT WAS FASTINGPERFORMED BY: [facility]CoInsp[facility] VinelandQrwggu9395 [facility] [id number] (60955) ALT (SGPT) 17 [iU]/L (Normal) Range: 0-44 [...] Glucose, Serum 109 mg/dL (Abnormal) Range: 65-99 9-Rst-994235:36 LIPID PANEL (78484) Comments: PATIENT WAS FASTINGPERFORMED BY: [facility]CoInsp[facility] VinelandGcccsv8669 [facility] [id number] LDL Cholesterol Calc 52 mg/dL (Normal) Range: 0-99 LDL/HDL Ratio 0.9 {ratio_units} (Normal) Range: 0.0-3.6 HDL Cholesterol 58 mg/dL (Normal) Comments: According to ATP-III Guidelines, HDL-C >59 mg/dL is considered anegative risk factor for CHD. VLDL Cholesterol Mike 21 mg/dL (Normal) Range: 5-40 Cholesterol, Total 131 mg/dL (Normal) Range: 100-199 Triglycerides 103 mg/dL (Normal) Range: 0-149 3-Bcy-827816:14 Blood Glucose , Office (64949) Blood Glucose , Office 171 (Normal) Comments: had toast for breakfast :07 HgA1C , Office (46266) HgA1C , Office 6.0 % (Normal) Range: 4.6 - 7.1 0-Sij-140529:07 Blood Glucose , Office (23969) Blood Glucose , Office 192 (Normal) 2-Gsb-490999:45 MICROALBUMIN: CREATININE RATIO Comments: PATIENT WAS FASTINGPERFORMED BY: [email or web address] [facility] [id number] (96545) AND (56139) Microalb/Creat Ratio 218.7 {mg/g_creat} (Abnormal) Range: 0.0-30.0 Microalbumin, Urine 359.3 ug/mL (Abnormal) Range: 0.0-17.0 Creatinine, Urine 164.3 mg/dL (Normal) Range: 22.0-328.0 :45 METABOLIC PANEL, COMPREHENSIVE Comments: PATIENT WAS FASTINGPERFORMED BY: [email or web address] [facility] [id number] (27951) ALT (SGPT) 11 [iU]/L (Normal) Range: 0-55 [...] Glucose, Serum 125 mg/dL (Abnormal) Range: 65-99 6-Zeo-992370:45 LIPID PANEL (49480) Comments: PATIENT WAS FASTINGPERFORMED BY: [employer] Zyfbpp9545 [facility] [id number] LDL/HDL Ratio 0.6 {ratio_units} (Normal) Range: 0.0-3.6 [...] MANUAL DIFF Comments: PATIENT WAS FASTINGPERFORMED BY: HubbubInspira Medical Center VinelandXtotex7824 [facility] [id number] Information: [id number] (01044) Immature Grans (Abs) 0.0 {x10E3/uL} (Normal) Range: [...] (Normal) Range: 4.0-10.5 :41 HgA1C , Office (10065) HgA1C , Office 5.5 % (Normal) Range: 4.6 - 7.1 :41 Blood Glucose , Office (66921) Blood Glucose , Office 148 (Normal) 93-Phr-18788:00 CBC (Auto) (44917) Comments: PATIENT NOT FASTINGPERFORMED BY: LabCoInsp[facility] VinelandDhxkqj4200 [facility] [id number] Information: [id number] Platelets 215 {x10E3/uL} (Normal) Range: 140-415 RDW 15.4 % (Abnormal) Range: 11.7-15.0 MCHC 32.3 g/dL (Normal) Range: 32.0-36.0 MCH 30.5 pg (Normal) Range: 27.0-34.0 MCV 94 fL (Normal) Range: 80-98 Hematocrit 39.0 % (Normal) Range: 36.0-50.0 Hemoglobin 12.6 g/dL (Normal) Range: 12.5-17.0 RBC 4.13 {x10E6/uL} (Normal) Range: 4.10-5.60 WBC 7.2 {x10E3/uL} (Normal) Range: 4.0-10.5 :13 HgA1C , Office (96267) HgA1C , Office 5.3 % (Normal) Range: 4.6 - 7.1 :13 Blood Glucose , Office (98932) Blood Glucose , Office 146 (Normal) :12 Microscopic Examination Comments: PATIENT WAS FASTINGPERFORMED BY: Pets are family too6370 PharmAtheneFormerly [facility] [id number] Bacteria None seen (Normal) Mucus Threads Present (Normal) Epithelial Cells (non renal) 0-10 {/hpf} (Normal) Range: 0 - 10 RBC 0-3 {/hpf} (Normal) Range: 0 - 3 WBC 0-5 {/hpf} (Normal) Range: 0 - 5 :12 PSA (PROSTATE SPECIFIC Comments: PATIENT WAS FASTINGPERFORMED BY: saperatecFormerly [facility] [id number] ANTIGEN) (V76.44) Prostate Specific Ag, 1.0 ng/mL (Normal) Range: 0.0-4.0 Serum Comments: Erik ECLIA methodology. .According to the [place] [employer], Serum PSA shoulddecrease and remain [...] of malignant disease. :12 URINALYSIS, W/ MICRO (79739) Comments: PATIENT WAS FASTINGPERFORMED BY: Pets are family too6370 PharmAtheneFormer[facility] [id number] Microscopic Examination See below: (Normal) Microscopic Examination MICRON (Normal) Comments: Microscopic follows if indicated. Nitrite, Urine Negative (Normal) Urobilinogen,Semi-Qn 0.2 mg/dL (Normal) Range: 0.0-1.9 Bilirubin Negative (Normal) Ketones Negative (Normal) Occult Blood Negative (Normal) Glucose Negative (Normal) Protein Negative (Normal) WBC Esterase Negative (Normal) Appearance Clear (Normal) pH 7.5 (Normal) Range: 5.0-7.5 Urine-Color Yellow (Normal) Specific [place] 1.013 (Normal) Range: 1.005-1.030 31-Oct-20119:12 METABOLIC PANEL, COMPREHENSIVE Comments: PATIENT WAS FASTINGPERFORMED BY: LabCoInsp[facility] VinelandQjnqkh8310 [facility] [id number] (60249) ALT (SGPT) 13 [iU]/L (Normal) Range: 0-55 [...] MANUAL DIFF Comments: PATIENT WAS FASTINGPERFORMED BY: ItrybeforeIbuyInspira Medical Center VinelandYchocy0545 [facility] [id number] Information: [id number] (82336) Immature Grans (Abs) 0.0 {x10E3/uL} (Normal) Range: [...] {x10E3/uL} (Normal) Range: 4.0-10.5 :12 LIPID PANEL (59963) Comments: PATIENT WAS FASTINGPERFORMED BY: ItrybeforeIbuyInspira Medical Center VinelandQlojid9057 [facility] [id number] LDL/HDL Ratio 0.9 {ratio_units} (Normal) Range: 0.0-3.6 LDL Cholesterol Calc 52 mg/dL (Normal) Range: 0-99 VLDL Cholesterol Mike 18 mg/dL (Normal) Range: 5-40 HDL Cholesterol 60 mg/dL (Normal) Comments: According to ATP-III Guidelines, HDL-C >59 mg/dL is considered anegative risk factor for CHD. Cholesterol, Total 130 mg/dL (Normal) Range: 100-199 Triglycerides 92 mg/dL (Normal) Range: 0-149 :32 HgA1C , Office (73486) HgA1C , Office 6.0 % (Normal) Range: 4.6 - 7.1 :32 Blood Glucose , Office (21031) Blood Glucose , Office 128 (Normal) :24 LIPID PANEL (82179) Comments: PATIENT NOT FASTINGPERFORMED BY: ItrybeforeIbuyInspira Medical Center VinelandVymhmv9884 [facility] [id number] Information: [id number] LDL Cholesterol Calc 33 mg/dL (Normal) Range: [...] Panel, Basic Comments: PATIENT NOT FASTINGPERFORMED BY: LabCoInspira Medical Center VinelandTcehjx2950 [facility] [id number] Information: [id number] (96789) Calcium, Serum 9.0 mg/dL (Normal) Range: 8.6-10.2 [...] Glucose, Serum 149 mg/dL (Abnormal) Range: 65-99 43-Eha-46361:56 Ferritin (55490) Comments: PATIENT NOT FASTINGPERFORMED BY: [facility] Yqdolw9868 [facility] [id number] Ferritin, Serum 221 ng/mL (Normal) Range: 30-400 16-Vlu-95614:19 Blood Glucose , Office (38890) Blood Glucose , Office 134 (Normal) 5-Bkf-728767:00 LIPID HDL 61 mg/dL (Normal) Comments: Reference [...] 200-240 mg/dL Borderline >240 mg/dL High Risk 2-Zvz-301134:00 LIVER D BILI 0.13 mg/dL (Normal) Range: 0.00-0.30 T BILI 0.40 mg/dL (Normal) Range: 0.00-1.00 ALT 29 U/L (Normal) Range: 12-78 ALK P 43 U/L (Abnormal) Range: 50-136 ALB 4.1 g/dL (Normal) Range: 3.4-5.0 AST 12 U/L (Abnormal) Range: 15-37 T PROT 7.4 g/dL (Normal) Range: 6.4-8.2 1-Ygk-545781:00 BMP CL 102 mmol/L (Normal) Range: 98-107 CO2 25.0 mmol/L (Normal) Range: 21.0-32.0 GAP 10 (Normal) Range: 5-15 K 4.8 mmol/L (Normal) Range: 3.5-5.1 NA 137 mmol/L (Normal) Range: 136-145 BUN/CRE 14.4 {RATIO} (Normal) Range: 10-20 CA 9.5 mg/dL (Normal) Range: 8.5-10.1 BUN 23 mg/dL (Abnormal) Range: 7-18 CREAT,SERUM 1.6 mg/dL (Abnormal) Range: 0.8-1.3 GLU 67 mg/dL (Abnormal) Range: 70-110 30-Qnf-659970:29 HIP, MIN 2 VIEWS Radiology Report See [...] on 10/14/10 1005 Sign by: King Calderón 87-Qro-628945:28 HIP, MIN 2 VIEWS Radiology Report See [...] 10/13/10 1028 by Mark COOPER by King Caldeórn on 10/14/10 1005 Sign by: King Calderón :01 HgA1C , Office (86438) HgA1C , Office 6.7 % (Normal) Range: 4.6 - 7.1 :01 Blood Glucose , Office (26407) Blood Glucose , Office 163 (Normal) :39 [...] mg/dL High Risk :57 HgA1C , Office (80223) HgA1C , Office 6.5 % (Normal) Range: 4.6 - 7.1 :57 Blood Glucose , Office (47553) Blood Glucose , Office 155 (Normal) :58 [...] 136-145 GLU 88 mg/dL (Normal) Range: 70-110 12-Icd-753618:32 TESTICULAR (HP) Radiology Report See Note (Normal) Comments: Exam Number: [id number] CLINICAL:This is a 70-year-old male patient with [...] testicles are unremarkable. Reported By: LOUIS SUE 05-Gra-787991:00 Urinalysis, Office (64515) UA - LEUKOCYTE ESTERASE Negative (Normal) UA - NITRITE Negative (Normal) URINE UROBILINGN CASPER TIMED Normal mg/dL (Normal) UA - PROTEIN 30 mg/dL (Normal) UA - PH 6.0 (Normal) Comments: 5.5 UA - BLOOD Negative (Normal) UA - SPECIFIC GRAVITY 1.025 (Normal) UA - KETONES Negative mg/dL (Normal) UA - BILIRUBIN Negative (Normal) UA - GLUCOSE Negative (Normal) 08-Vej-33731:10 HgA1C , Office (01656) HgA1C , Office 5.5 % (Normal) Range: 4.6 - 7.1 67-Bse-79378:10 Blood Glucose , Office (19380) Blood Glucose , Office 176 (Normal) 27-Auy-034900:38 ABDOMEN/PELVIS WITH CONTRAST Radiology Report See Note (Normal) Comments: Exam Number: [id number] CLINICAL:70-year-old male with abdominal pain CT ABDOMEN [...] adrenal gland. Reported By: KING CALDERÓN M.D. 07-Zae-855872:00 CBCD ABSOLUTE NEUT 7.8 3/uL (Abnormal) Range: [...] 4.6-6.2 WBC 10.9 K/mm3 (Normal) Range: 4.4-11.0 42-Ilk-382472:00 COMP METABOLIC ALK P 57 U/L (Normal) [...] T PROT 8.1 g/dL (Normal) Range: 6.4-8.2 89-Xiy-365676:0 VITAMIN B12 541 pg/mL (Normal) Range: 254-1320 [...] CHOL 141 mg/dL (Normal) Comments: <200 mg/dL Whedosvnz449-196 mg/dL Borderline>240 mg/dL High Risk :33 LIVER ALK P 53 U/L (Normal) Range: 50-136 ALT 25 U/L (Normal) Range: 12-78 D BILI 0.09 mg/dL (Normal) Range: 0.00-0.30 T BILI 0.30 mg/dL (Normal) Range: 0.00-1.00 ALB 3.9 g/dL (Normal) Range: 3.4-5.0 AST 23 U/L (Normal) Range: 15-37 T PROT 7.8 g/dL (Normal) Range: 6.4-8.2 :09 HgA1C , Office (65071) HgA1C , Office 6.6 % (Normal) Range: 4.6 - 7.1 :09 Blood Glucose , Office (44681) Blood Glucose , Office 243 (Normal) :38 [...] CHOL 132 mg/dL (Normal) Comments: <200 mg/dL Piyxvtxjc235-408 mg/dL Borderline>240 mg/dL High Risk :38 LIVER Comments: DR [facility] ORDERED LIPID LIVERDR BONEZZI [...] PSA Range: 0.0-4.0 :10 HgA1C , Office (53160) HgA1C , Office 6.1 % (Normal) Range: 4.6 - 7.1 :10 Blood Glucose , Office (33753) Blood Glucose , Office 172 (Normal) 41-Ywb-565671:00 LIPID CHOL 150 mg/dL (Normal) Comments: <200 [...] mg/dL VLDL 58 mg/dL (Abnormal) Range: 5-40 12-Lyl-849251:00 LIVER ALB 4.0 g/dL (Normal) Range: 3.4-5.0 ALK P 50 U/L (Normal) Range: 50-136 ALT 25 U/L (Normal) Range: 12-78 Comments: Please Note: Revised Reference Range effective 09 AST 19 U/L (Normal) Range: 15-37 D BILI 0.12 mg/dL (Normal) Range: 0.00-0.30 T BILI 0.50 mg/dL (Normal) Range: 0.00-1.00 T PROT 7.7 g/dL (Normal) Range: 6.4-8.2 [id number] CBCD,SMEAR DIFF Comments: ORDERED CBCMD LIPID CMP [...] mg/dL (Normal) :38 Blood Glucose , Office (41107) Blood Glucose , Office 163 (Normal) :38 HgA1C , Office (28846) HgA1C , Office 6.0 % (Normal) Range: [...] (Normal) Range: 0.0-4.0 :06 HgA1C , Office (04845) HgA1C , Office 5.9 % (Normal) Range: 4.6 - 7.1 :06 Blood Glucose , Office (67692) Blood Glucose , Office 157 (Normal) :50 METABOLIC PANEL, COMPREHENSIVE Comments: PATIENT NOT FASTINGPERFORMED BY: [id number] [id number] ([id number]) A/G Ratio 1.6 (Normal) Range: 1.1-2.5 Albumin, [...] Serum 102 mg/dL (Abnormal) Range: 65-99 If -Turkish >59 mL/min/1.73 Comments: Note: Persistent reduction for [...] Sodium, Serum 143 mmol/L (Normal) Range: 135-145 [id number] CBC WITH MANUAL DIFF (70876) Comments: PATIENT NOT FASTINGClinical Information: ADD DRAW FEE [id number] ADD J [id number] PERFORMED BY: [facility] [id number] Baso (Absolute) 0.0 {x10E3/uL} (Normal) Range: 0.0-0.2 [...] (Normal) Range: 4.0-10.5 :11 HgA1C , Office (47957) HgA1C , Office 5.6 % (Normal) Range: 4.6 - 7.1 :11 Blood Glucose , Office (90937) Blood Glucose , Office 101 (Normal) :55 HgA1C , Office (81244) HgA1C , Office 5.9 % (Normal) Range: 4.6 - 7.1 :55 Blood Glucose , Office (49590) Blood Glucose , Office 104 (Normal) [id number] Billing Information Required Comments: TEST(S) ORDERED: [id number] Ag, SerumPATIENT NOT FASTINGClinical Information: ADD DRAW FEE [id number] ADD J [id number] PERFORMED BY: [id number] [facility] (Normal) Comments: To enable [facility] to file an insurance claim on behalf of yourpatient, please provide or update as indicated the required billinginformation listed below. The HIPAA Privacy regulation at 45 HEI852.506 (c) (3) provides that a covered entity (Physician's Office/Referring Provider) may disclose PHI to another covered entity([facility]) for purposes of payment without patient authorization. .Please provide requested information and return via your servicerepresentative or fax to [phone] within 3 days. 9-Ahh-946415:23 Billing Information Required Comments: TEST(S) ORDERED: 619990-Orirewxd-Ttuxvalk Ag, SerumPATIENT NOT FASTINGPERFORMED BY: [facility] [id number] Highest Level of SPRCS Comments: Information Submitted: NOT GIVENPlease Provide: Diagnosis Code, Signs or Symptoms in ICD9 format at the highest level of specificity.Updated/Corrected Information: Specificity (Normal) __Physician/Designee Signature: Date: 7-Isv-391510:23 PSA (PROSTATE SPECIFIC Comments: PATIENT NOT FASTINGClinical Information: ADD DRAW FEE 100492 ADD J 47952 [facility]FORMED BY: [facility] [id number] ANTIGEN) (V76.44) Prostate Specific Ag, Serum 1.1 ng/mL (Normal) Range: 0.0-4.0 Comments: [employer] (formerly [employer] ICMA methodology. .EFFECTIVE March 30, 2008, PSA will be changing to the Erik ECLIA methodology. R ebaselining will be offered for 90 days using panel 672139. The second result, provided by the [employer] ICMA methodology will be provided at no charge. 3-Lvo-725809:19 HgA1C , Office (08743) HgA1C , Office 6.1 % (Normal) Range: 4.6 - 7.1 :19 Blood Glucose , Office (50008) Blood Glucose , Office 248 (Normal) :23 [...] 228.3 mg/dL (Normal) :51 HgA1C , Office (58576) HgA1C , Office 5.7 % (Normal) Range: 4.6 - 7.1 Comments: aw :51 Blood Glucose , Office (24450) Blood Glucose , Office 197 (Normal) Comments: aw :41 TROPONIN-I 0.04 ng/mL (Normal) Comments: TROPONIN-I EXPECTED VALUES < 0.50 NEGATIVE 0.50 - 1.49 INDETERMINANT > OR = 1.50 SUGGEST MS :40 BMP Comments: COMMENTS: BONEZZIINDICATE CK '1', [...] 1.49 INDETERMINANT > OR = 1.50 SUGGEST MS :41 BMP BUN 19 mg/dL (Abnormal) Range: [...] 1.49 INDETERMINANT > OR = 1.50 SUGGEST MS :30 PROTEIN,UR.RAN. 22.8 mg/dL (Abnormal) Comments: HOLD [...] AMI > 5 > 4 :10 SPE [id number] A/G RATIO 1.2 (Normal) Range: 0.7-2.0 ALBUMIN [...] Evidenceof monoclonal protein is not apparent.Performed At: [facility] [place], [place] [id number] M-SPIKE SeeNote g/dL (Normal) Comments: Result: Not Observed NOTE: Comment (Normal) Comments: Protein electrophoresis scan will follow via mail orcourier. PROTEIN,TOTAL 6.9 g/dL (Normal) Range: 6.0-8.5 :10 TROPONIN-I < 0.04 ng/mL (Normal) Comments: INDICATE CK '1', '2', '3', OR 'R' FOR RANDOM: 2 Comments: TROPONIN-I EXPECTED VALUES < 0.50 NEGATIVE 0.50 - 1.49 INDETERMINANT > OR = 1.50 SUGGEST MS :50 PRO TIME INR 1.0 (Normal) PROTIME 12.2 s (Normal) Range: 10.6-13.2 :50 TROPONIN-I < 0.04 ng/mL (Normal) Comments: TROPONIN-I EXPECTED VALUES < 0.50 NEGATIVE 0.50 - 1.49 INDETERMINANT > OR = 1.50 SUGGEST MS :08 SHONDA 38 U/L (Normal) Comments: COMMENTS: [...] 1.49 INDETERMINANT > OR = 1.50 SUGGEST MS :30 CHEST WITHOUT CONTRAST Radiology Report See Note (Normal) Comments: Exam Number: [id number] CT HIGH RESOLUTION OF CHEST WITHOUT CONTRAST [...] DENISSE URIAS M.D. :13 HgA1C , Office (07247) HgA1C , Office 6.5 % (Normal) Range: 4.6 - 7.1 :13 Blood Glucose , Office (06310) Blood Glucose , Office 124 (Normal) :59 [...] Report See Note (Normal) Comments: Exam Number: [id number] PA AND LATERAL CHEST HISTORY Being done for cough. FINDINGSCardiac configuration is normal. No acute infiltrate, effusion, orpneumothorax is identified. There is a pacema ker noted in the leftanterior chest. No abnormality is noted in the leads as demonstrated. IMPRESSION1. No acute change noted in the lungs. 2. Little if any change from 09/04/06. Reported By: AMANDO NANCE M.D. 9-Pcr-048624:00 C DIF See Note (Normal) Comments: C. [...] (Normal) Range: 5-40 :35 HgA1C , Office (86068) HgA1C , Office 5.6 % (Normal) Range: [...] - 1.0 :39 Blood Glucose , Office (24564) Blood Glucose , Office 161 (Normal) :39 HgA1C , Office (54706) HgA1C , Office 5.7 % (Normal) Range: [...] swelling : Follow up 3 days with [facility] Indication: Leg swelling RLS (restless legs syndrome) [...] Wheezing Planned Observations CBC WITH MANUAL DIFF (90176)Indication: CKD (chronic kidney disease), stage 3 (moderate) On: 02-Jan-2021 Request Comments: standing order q 3 months MAGNESIUM (44928)Indication: CKD (chronic kidney disease), stage 3 (moderate) On: 02-Jan-2021 Request Comments: standing order q 3 months PARATHORMONE (96302)Indication: CKD (chronic kidney disease), stage 3 (moderate) On: 02-Jan-2021 Request Comments: standing order q 3 months PHOSPHORUS ([id number])Indication: CKD (chronic kidney disease), stage 3 (moderate) On: 02-Jan-2021 Request Comments: standing order q 3 months Renal function Panel (11957)Indication: CKD (chronic kidney disease), stage 3 (moderate) On: 02-Jan-2021 Request Comments: standing order q 3 months CBC WITH MANUAL DIFF ([id number])Indication: CKD (chronic kidney disease), stage 3 (moderate) On: 04-Oct-2020 Request Comments: standing order q 3 months MAGNESIUM (97692)Indication: CKD (chronic kidney disease), stage 3 (moderate) On: 04-Oct-2020 Request Comments: standing order q 3 months PARATHORMONE ([id number])Indication: CKD (chronic kidney disease), stage 3 (moderate) On: 04-Oct-2020 Request Comments: standing order q 3 months PHOSPHORUS ([id number])Indication: CKD (chronic kidney disease), stage 3 (moderate) On: 04-Oct-2020 Request Comments: standing order q 3 months Renal function Panel (39735)Indication: CKD (chronic kidney disease), stage 3 (moderate) On: 04-Oct-2020 Request Comments: standing order q 3 months CBC WITH MANUAL DIFF ([id number])Indication: CKD (chronic kidney disease), stage 3 (moderate) On: 06-Jul-2020 Request Comments: standing order q 3 months MAGNESIUM ([id number])Indication: CKD (chronic kidney disease), stage 3 (moderate) On: 06-Jul-2020 Request Comments: standing order q 3 months PARATHORMONE ([id number])Indication: CKD (chronic kidney disease), stage 3 (moderate) On: 06-Jul-2020 Request Comments: standing order q 3 months PHOSPHORUS ([id number])Indication: CKD (chronic kidney disease), stage 3 (moderate) On: 06-Jul-2020 Request Comments: standing order q 3 months Renal function Panel ([id number])Indication: CKD (chronic kidney disease), stage 3 (moderate) On: 06-Jul-2020 Request Comments: standing order q 3 months CBC WITH MANUAL DIFF (59462)Indication: CKD (chronic kidney disease), stage 3 (moderate) On: 07-Apr-2020 Request Comments: standing order q 3 months MAGNESIUM ([id number])Indication: CKD (chronic kidney disease), stage 3 (moderate) On: 07-Apr-2020 Request Comments: standing order q 3 months PARATHORMONE ([id number])Indication: CKD (chronic kidney disease), stage 3 (moderate) On: 07-Apr-2020 Request Comments: standing order q 3 months PHOSPHORUS ([id number])Indication: CKD (chronic kidney disease), stage 3 (moderate) On: 07-Apr-2020 Request Comments: standing order q 3 months Renal function Panel (37042)Indication: CKD (chronic kidney disease), stage 3 (moderate) On: 07-Apr-2020 Request Comments: standing order q 3 months CBC WITH MANUAL DIFF ([id number])Indication: CKD (chronic kidney disease), stage 3 (moderate) On: 08-Jan-2020 Request Comments: standing order q 3 months MAGNESIUM ([id number])Indication: CKD (chronic kidney disease), stage 3 (moderate) On: 08-Jan-2020 Request Comments: standing order q 3 months PARATHORMONE (73276)Indication: CKD (chronic kidney disease), stage 3 (moderate) On: 08-Jan-2020 Request Comments: standing order q 3 months PHOSPHORUS ([id number])Indication: CKD (chronic kidney disease), stage 3 (moderate) On: 08-Jan-2020 Request Comments: standing order q 3 months Renal function Panel ([id number])Indication: CKD (chronic kidney disease), stage 3 (moderate) On: 08-Jan-2020 Request Comments: standing order q 3 months CBC WITH MANUAL DIFF (40111)Indication: CKD (chronic kidney disease), stage 3 (moderate) On: 10-Oct-2019 Request Comments: standing order q 3 months MAGNESIUM ([id number])Indication: CKD (chronic kidney disease), stage 3 (moderate) On: 10-Oct-2019 Request Comments: standing order q 3 months PARATHORMONE ([id number])Indication: CKD (chronic kidney disease), stage 3 (moderate) On: 10-Oct-2019 Request Comments: standing order q 3 months PHOSPHORUS ([id number])Indication: CKD (chronic kidney disease), stage 3 (moderate) On: 10-Oct-2019 Request Comments: standing order q 3 months Renal function Panel ([id number])Indication: CKD (chronic kidney disease), stage 3 (moderate) On: 10-Oct-2019 Request Comments: standing order q 3 months CBC WITH MANUAL DIFF ([id number])Indication: CKD (chronic kidney disease), stage 3 (moderate) On: 12-Jul-2019 Request Comments: standing order q 3 months MAGNESIUM ([id number])Indication: CKD (chronic kidney disease), stage 3 (moderate) On: 12-Jul-2019 Request Comments: standing order q 3 months PARATHORMONE ([id number])Indication: CKD (chronic kidney disease), stage 3 (moderate) On: 12-Jul-2019 Request Comments: standing order q 3 months PHOSPHORUS ([id number])Indication: CKD (chronic kidney disease), stage 3 (moderate) On: 12-Jul-2019 Request Comments: standing order q 3 months Renal function Panel ([id number])Indication: CKD (chronic kidney disease), stage 3 (moderate) On: 12-Jul-2019 Request Comments: standing order q 3 months CBC WITH MANUAL DIFF ([id number])Indication: CKD (chronic kidney disease), stage 3 (moderate) On: 13-Apr-2019 Request Comments: standing order q 3 months MAGNESIUM (71613)Indication: CKD (chronic kidney disease), stage 3 (moderate) On: 13-Apr-2019 Request Comments: standing order q 3 months PARATHORMONE ([id number])Indication: CKD (chronic kidney disease), stage 3 (moderate) On: 13-Apr-2019 Request Comments: standing order q 3 months PHOSPHORUS ([id number])Indication: CKD (chronic kidney disease), stage 3 (moderate) On: 13-Apr-2019 Request Comments: standing order q 3 months Renal function Panel ([id number])Indication: CKD (chronic kidney disease), stage 3 (moderate) On: 13-Apr-2019 Request Comments: standing order q 3 months CBC WITH MANUAL DIFF ([id number])Indication: CKD (chronic kidney disease), stage 3 (moderate) On: 13-Jan-2019 Request Comments: standing order q 3 months MAGNESIUM ([id number])Indication: CKD (chronic kidney disease), stage 3 (moderate) On: 13-Jan-2019 Request Comments: standing order q 3 months PARATHORMONE ([id number])Indication: CKD (chronic kidney disease), stage 3 (moderate) On: 13-Jan-2019 Request Comments: standing order q 3 months PHOSPHORUS ([id number])Indication: CKD (chronic kidney disease), stage 3 (moderate) On: 13-Jan-2019 Request Comments: standing order q 3 months HEPATIC FUNCTION PANEL (66570)Indication: Diabetes mellitus with chronic kidney disease On: :40 Request HgA1C , Office (95021)Indication: Diabetes mellitus with chronic kidney disease On: 45-Uyw-733298:37 Request CBC WITH MANUAL DIFF ([id number])Indication: CKD (chronic kidney disease), stage 3 (moderate) On: :36 Request Comments: standing order q 3 months PHOSPHORUS (90662)Indication: CKD (chronic kidney disease), stage 3 (moderate) On: 47-Osm-615361:36 Request Comments: standing order q 3 months MAGNESIUM (67586)Indication: CKD (chronic kidney disease), stage 3 (moderate) On: 99-Hhh-300566:36 Request Comments: standing order q 3 months Renal function Panel (08267)Indication: CKD (chronic kidney disease), stage 3 (moderate) On: 06-Iqy-820104:36 Request Comments: standing order q 3 months PREALBUMIN (89932)Indication: Anorexia On: 16-Mtf-839261:36 Request MAGNESIUM (75834)Indication: CKD (chronic kidney disease), stage 3 (moderate) On: 15-Oct-2018 Request Comments: standing order q 3 months PARATHORMONE (95989)Indication: CKD (chronic kidney disease), stage 3 (moderate) On: 15-Oct-2018 Request Comments: standing order q 3 months Keppra ([id number])Indication: Seizure On: 63-Nws-106843:02 Request Comments: send all labs stat TSH (15704)Indication: Cardiac dysrhythmia On: 44-Nwx-33862:40 Request Troponin I (84662)Indication: Episode of syncope On: 63-Tvb-79260:39 Request BNTP (54440)Indication: Episode of syncope On: 41-Ebe-02735:39 Request CBC (Auto) (08285)Indication: Episode of syncope On: 80-Nyt-00932:38 Request Metabolic Panel, Comprehensive (29193)Indication: Episode of syncope On: 42-Swa-27213:38 Request Keppra (79588)Indication: Seizure On: 66-Kpj-618271:57 Request Comments: all copies to Dr. jung CBC WITH MANUAL DIFF (99539)Indication: CKD (chronic kidney disease), stage 3 (moderate) On: :57 Request Comments: standing order q 3 months PHOSPHORUS (45092)Indication: CKD (chronic kidney disease), stage 3 (moderate) On: 98-Irs-980783:57 Request Comments: standing order q 3 months PARATHORMONE (62452)Indication: CKD (chronic kidney disease), stage 3 (moderate) On: 08-Wka-273755:57 Request Comments: standing order q 3 months Renal function Panel (36017)Indication: CKD (chronic kidney disease), stage 3 (moderate) On: :57 Request Comments: standing order q 3 months Metabolic Panel, Basic (09755)Indication: Hypertension On: 01-Kfd-207349:34 Request Platelet 68366 (citrate, nonclumping tube)Indication: Thrombocytopenia On: 08-Hrh-959344:25 Request Keppra (24484)Indication: Generally unsteady On: 82-Ews-834922:20 Request Comments: Dr. Jung copy to him Methymalonic Acid, Serum (95860)Indication: CKD (chronic kidney disease), stage 3 (moderate) On: 04-Opz-62394:35 Request Vitamin B-12 (cyanocobalamin) (14307)Indication: CKD (chronic kidney disease), stage 3 (moderate) On: :35 Request FIBRIN DEGRAD SLIDE AGGL (83037)Indication: Abnormal platelet aggregation On: :19 Request LDH (LD) (LACTATE DEHYDROGENASE) (25450)Indication: Abnormal platelet aggregation On: :13 Request Platelet Count (41418)Indication: Abnormal platelet aggregation On: :12 Request Comments: PLEASE DRAW IN CITRATE TUBE Renal function Panel (57100)Indication: Hypotension, postural On: :46 Request CBC, Platelets & Auto Diff (47669)Indication: Hypotension, postural On: 37-Pcl-988284:45 Request Troponin I (87936)Indication: Hypotension, postural On: 59-Llr-233675:45 Request TSH (53993)Indication: Hypotension, postural On: 99-Req-943061:43 Request PHOSPHORUS (25991)Indication: CKD (chronic kidney disease), stage 3 (moderate) On: 73-Uhl-845862:23 Request Comments: standing order q 3 months Troponin I (95769)Indication: History of CHF (congestive heart failure) On: 50-Ala-370902:54 Request Renal function Panel (14594)Indication: History of CHF (congestive heart failure) On: 67-Yzv-581757:54 Request TSH (36259)Indication: Hypothyroid On: 09-Ntc-247316:50 Request METABOLIC PANEL, COMPREHENSIVE (61621)Indication: Diabetes mellitus with chronic kidney disease On: 98-Tgk-187187:50 Request MICROALBUMIN: CREATININE RATIO (45159) AND (55505)Indication: CKD (chronic kidney disease), stage 3 (moderate) On: 4-Zzt-866835:41 Request Comments: copy to Dr. Murcia [phone] Parathyroid Hormone-related Peptide (PTH-rP) (63338)Indication: CKD (chronic kidney disease), stage 3 (moderate) On: :41 Request Comments: copy to Dr. Murcia [phone] URINALYSIS, W/ MICRO (88491)Indication: Diabetes mellitus with chronic kidney disease On: :47 Request Comments: 07-15 METABOLIC PANEL, COMPREHENSIVE (86767)Indication: Diabetes mellitus with chronic kidney disease On: :47 Request Comments: 07-15 LIPOPROTEIN, BLD, BY NMR (03340)Indication: Diabetes mellitus with chronic kidney disease On: :46 Request Comments: 07-15 CBC with auto diff (99522)Indication: Diabetes mellitus with chronic kidney disease On: :46 Request Comments: 07-15 ANCA-P (ANTI NEUTROPHIL CYTOPLASMIC ANTIBODY)Indication: CKD (chronic kidney disease), stage 3 (moderate) On: :38 Request PSA (PROSTATE SPECIFIC ANTIGEN) (V76.44)Indication: Screening for prostate cancer On: 39-Zgb-681698:13 Request Comments: 06-14 PARATHORMONE (84249)Indication: CKD (chronic kidney disease), stage 3 (moderate) On: :51 Request Magnesium (51941)Indication: CKD (chronic kidney disease), stage 3 (moderate) On: :51 Request CALCIFIDIOL (01838) VIT D 25Indication: CKD (chronic kidney disease), stage 3 (moderate) On: :51 Request Total Protein,24 Hour Urine (87819)Indication: CKD (chronic kidney disease), stage 3 (moderate) On: :50 Request CREATININE CLEARANCE (30386)Indication: CKD (chronic kidney disease), stage 3 (moderate) On: :50 Request Metabolic Panel, Basic (97808)Indication: Cardiomyopathy On: :30 Request Comments: 2 weeks METABOLIC PANEL, COMPREHENSIVE (05879)Indication: Hypertension On: : Request Comments: in three months (approximately) CBC with auto diff (33543)Indication: Hypertension On: :29 Request Comments: in three months (approximately) METABOLIC PANEL, BASIC (35521)Indication: Diabetes mellitus with chronic kidney disease On: 40-Hlv-548592:05 Request Comments: recheck in 2 wks HGB A1C (63267)Indication: Diabetes mellitus with chronic kidney disease On: 10-Imm-172077:01 Request MAGNESIUM (98909)Indication: Hypomagnesemia On: :53 Request LIPID PANEL (52588)Indication: Hypertension On: :53 Request Comments: copy to Dr. harmon TSH (04329)Indication: Hypothyroid On: :53 Request METABOLIC PANEL, COMPREHENSIVE (14795)Indication: Hypertension On: :53 Request CBC with auto diff (44013)Indication: Hypertension On: :52 Request CBC (Auto) (78763)Indication: Hypertension On: 91-Yzm-090719:44 Request Comments: in three months (approximately) Renal function Panel (81247)Indication: Hypertension On: :44 Request Comments: in three months (approximately) Metabolic Panel, Basic (34119)Indication: Hypertension On: :30 Request METABOLIC PANEL, BASIC (94155)Indication: Hypertension On: :37 Request Comments: Forward to Val Almeida at [facility] at fax [phone] also PSA (PROSTATE SPECIFIC ANTIGEN) (V76.44)Indication: Encounter for health maintenance examination with abnormal findings On: 72-Wuk-090803:11 Request Comments: due 07-12 MICROALBUMIN: CREATININE RATIO (03483) AND (04400)Indication: Diabetic nephropathy On: :39 Request METABOLIC PANEL, COMPREHENSIVE (71056)Indication: Diabetes mellitus type II, controlled On: 6-Fke-304384:39 Request URINALYSIS, W/ MICRO (78951)Indication: Diabetes mellitus type II, controlled On: 57-Rwt-27618:56 Request METABOLIC PANEL, COMPREHENSIVE (42741)Indication: Diabetes mellitus type II, controlled On: :56 Request CBC WITH MANUAL DIFF (43644)Indication: Diabetes mellitus type II, controlled On: :56 Request HgA1C , Office (55600)Indication: Diabetes mellitus type II, controlled On: :19 Request Metabolic Panel, Basic (36386)Indication: Cardiomyopathy On: :01 Request LIPID PANEL (41221)Indication: Diabetes mellitus with chronic kidney disease On: :30 Request METABOLIC PANEL, COMPREHENSIVE (88961)Indication: Diabetes mellitus with chronic kidney disease On: :30 Request CBC WITH MANUAL DIFF (19621)Indication: Diabetes mellitus with chronic kidney disease On: :30 Request Comments: copy Dr. hu CREATININE CLEARANCE (03717)Indication: Renal insufficiency On: :06 Request 24 hour urine for Protein (41833)Indication: Renal insufficiency On: :06 Request Metabolic Panel, Basic (28487)Indication: Renal insufficiency On: :05 Request Metabolic Panel, Basic (75101)Indication: Renal insufficiency On: 15-Han-545821:03 Request Urinalysis, Office (35243)Indication: Cystitis, acute On: 90-Yah-755592:37 Request URINE LIBORIO CULTURE-CASPER COL COUNT (19603)Indication: Cystitis, acute On: :37 Request CBC, Platelets & Auto Diff (44519)Indication: Cramp in limb On: :44 Request Vitamin B-12 (cyanocobalamin) (08752)Indication: Cramp in limb On: :44 Request Metabolic Panel, Comprehensive (14461)Indication: Cramp in limb On: :44 Request METABOLIC PANEL, COMPREHENSIVE (80137)Indication: Diabetes mellitus type II, controlled On: 2-Lvv-234721:50 Request LIPID PANEL (74043)Indication: Diabetes mellitus type II, controlled On: 6-Wnq-604331:50 Request Comments: in three months (approximately) PSA (PROSTATE SPECIFIC ANTIGEN) (V76.44)Indication: Diabetes mellitus type II, controlled On: :30 Request CBC WITH MANUAL DIFF (94507)Indication: Diabetes mellitus type II, controlled On: : Request MICROALBUMIN: CREATININE RATIO (96376) AND (29243)Indication: Diabetes mellitus type II, controlled On: : Request Metabolic Panel, Basic (93605)Indication: Diabetes mellitus type II, controlled On: :29 Request MICROALBUMIN: CREATININE RATIO (24304) AND (73699)Indication: Diabetes mellitus type II, controlled On: 92-Dqg-543131:53 Request METABOLIC PANEL, COMPREHENSIVE (29392)Indication: Diabetes mellitus type II, controlled On: 81-Iuc-332100:53 Request LIPID PANEL (72418)Indication: Diabetes mellitus type II, controlled On: 02-Fbn-390764:53 Request CBC WITH MANUAL DIFF (16158)Indication: Diabetes mellitus type II, controlled On: 04-Qmt-789504:53 Request Comments: in three months (approximately) PSA (PROSTATE SPECIFIC ANTIGEN) (V76.44)Indication: Well Male On: :32 Request MICROALBUMIN: CREATININE RATIO (98583) AND (65237)Indication: Diabetes mellitus type II, controlled On: :32 Request METABOLIC PANEL, COMPREHENSIVE (16098)Indication: Diabetes mellitus type II, controlled On: :32 Request CBC WITH MANUAL DIFF (64561)Indication: Diabetes mellitus type II, controlled On: :32 Request LIPID PANEL (49616)Indication: Diabetes mellitus type II, controlled On: 88-Tas-677043:32 Request URINALYSIS W/O MICRO (77516)Indication: Cardiomyopathy On: :22 Request Metabolic Panel, Basic (13662)Indication: Hypertension On: 84-Wga-950487:12 Request Comments: sept CBC (Auto) (60316)Indication: Diabetes mellitus type II, controlled On: 3-Mqg-988730:10 Request Metabolic Panel, Comprehensive (20686)Indication: Diabetes mellitus type II, controlled On: 8-Ojl-870780:10 Request MICROALBUMIN: CREATININE RATIO (13621) AND (55919)Indication: Diabetes mellitus type II, controlled On: :12 Request CBC WITH MANUAL DIFF (83983)Indication: Diabetes mellitus type II, controlled On: :12 Request Comments: in three months (approximately) METABOLIC PANEL, COMPREHENSIVE (47228)Indication: Diabetes mellitus type II, controlled On: 6-Iif-751526:12 Request LIPID PANEL (84062)Indication: Hypertension On: :08 Request METABOLIC PANEL, COMPREHENSIVE (83732)Indication: Hypertension On: 1-Ysz-905570:08 Request METABOLIC PANEL, BASIC (04857)Indication: Acute renal failure, unspecified acute renal failure type On: :01 Request Comments: with next blood draw PSA (PROSTATE SPECIFIC ANTIGEN) (12924)Indication: Encounter for health maintenance examination with abnormal findings On: 8-Stw-773551:55 Request Comments: after 09-20-06 MICROALBUMIN 24 HOUR OR RANDOM (91831)Indication: DIABETIC NEPHROPATHY On: :49 Request CREATININE CLEARANCE (67865)Indication: DIABETIC NEPHROPATHY On: 8-Jxg-380035:49 Request Planned Encounters Medical; MICHAEL 2 Week FU - On: 27-Nov-2018 10:00 [facility] ROGERS, Anabella Turcios MD Planned Procedures ELECTROCARDIOGRAM, COMPLETE (ECG) On: 17-Sep-2018 Intent (45460)By: Anabella Núñez MD Comments: see scanned document of test done to see results reviewed today with patient Anabella ROGERS INFUSION OF 0.9% SODIUM CHLORIDE On: 25-Apr-2018 Intent SOLUTION (51760)By: Anabella Núñez MD Comments: lot:[id number]:rte:IV right anticub dose:250ccgiven by:aaliyah FRASER signedERASAD MD, Dana M ELECTROCARDIOGRAM, COMPLETE (ECG) On: 25-Apr-2018 Intent (04061)By: Anabella Núñez MD Comments: see scanned document of test done to see results reviewed today with patient Anabella ROGERS INFUSION, NORMAL SALINE SOLUTION , On: 18-Jan-2018 Intent 1000 CC (Special Coverage Instructions Comments: lot:[id number]:01/15rte:IV dose: 500ml sodium chloride given by: aaliyah left fore arm ABN signedER, PLASTERER SPOT Apply. See MCM: 2048) (J7030)By: Anabella Núñez MD, MD, Dana M Radiology - Chest- PA and LatBy: Fast On: 09-Jan-2018 Intent Delisa BARFIELD Comments: stat call results Spirometry (12662)By: Delisa Gordon DO On: 06-Jun-2017 Intent A Comments: good effort and curve with decrease in small airways Radiology - Chest- PA and LatBy: Fast On: 06-Jun-2017 Delisa Pittman DO Comments: stat call rsutls Ultrasound - RenalBy: Anabella Núñez MD On: 06-Sep-2016 Intent Anabella Tirado MD Aerosol Treatment ([id number])By: Mynor On: 15-Feb-2016 Intent Daria LION Radiology - ChestBy: Daria Lowe CNP On: 13-Sep-2015 Intent Solu -Medrol Injection, 125 mg On: 13-Sep-2015 Intent ([id number])By: Daria Lowe CNP Comments: lot:[id number]:12/2017route:IMdose:125mgsite:SMA Nahomy Aerosol Treatment ([id number])By: Mynor On: 13-Sep-2015 Intent Daria LION Comments: patient tolerated well Aerosol Treatment ([id number])By: Dami On: 07-Sep-2015 Intent Anabella ROGERS MD, Dana M Prevnar 13 ([id number])By: Dami ROGERS, On: 16-Oct-2014 Intent Anabella Turicos MD ADMINISTRATION OF INFLUENZA VIRUS On: 04-Aug-2014 Intent VACCINE (G0008)By: Visit, Nurse Comments: Lot #[id number]-L dltd, IMDose prefilled syringegiven by:Madelaine and ABN signed FLU VAC, SPLIT, >3 YEARS, INTRAMUSC On: 04-Aug-2014 Intent ([id number])By: Visit, Nurse Radiology - ChestBy: Anabella Núñez MD On: 20-Jan-2014 Intent Anabella Tirado MD Aerosol Treatment ([id number])By: Dami On: 20-Jan-2014 Intent Anabella ROGERS MD, Dana M Eprescribed prescriptions ([id number])By: On: 20-Jan-2014 Intent Anabella Núñez MD, MD, Dana M FLU VAC, SPLIT, >3 YEARS, INTRAMUSC On: 10-Jul-2013 Intent ([id number])By: MATILDA Hernandez Comments: Lot #:[id number] date:6.14Amount given:0.5mlRoute: IMSite given:L DltdGiven by: NAS and ABN signed ADMINISTRATION OF INFLUENZA VIRUS On: 10-Jul-2013 Intent VACCINE (G0008)By: MATILDA Hernandez Eprescribed prescriptions ([id number])By: On: 11-Dec-2012 Intent Delisa Gordon DO Pulse Oximetry ([id number])By: Evan BARFIELD, On: 11-Dec-2012 Intent Delisa Monte Comments: 98 Spirometry ([id number])By: Delisa Gordon DO On: 11-Dec-2012 Intent A Comments: good effort and curve normal Radiology - Chest- PA and LatBy: Fast On: 11-Dec-2012 Delisa Pittman DO Comments: call wet read Eprescribed prescriptions ([id number])By: On: 18-Nov-2012 Intent La Nena Nicole DO TDAP VACCINE >7 IM ([id number])By: David On: 20-Feb-2012 Intent MATILDA Comments: Lot #:[id number] date:65-44-49Fxjanr given:0.5mlRoute: IMSite given:right deltoid Given by: aaliyah mallory Pulse Oximetry ([id number])By: Mynor LION, On: 17-Oct-2011 Intent Simona Aerosol Treatment ([id number])By: Mynor On: 17-Oct-2011 Intent Daria LION FLU VAC, SPLIT, >3 YEARS, INTRAMUSC On: 08-Aug-2011 Intent ([id number])By: Diana Caballero RN Comments: Lot #: [id number] date: 04/09Amount given: 0.5 mlRoute: IMSite given: left deltoidGiven by: BEKA Dc ADMINISTRATION OF INFLUENZA VIRUS On: 08-Aug-2011 Intent VACCINE (G0008)By: Diana Caballero RN Radiology - Hip - BilateralBy: Dami On: 13-Oct-2010 Intent Anabella ROGERS MD, Dana M Spirometry ([id number])By: Dami ROGERS, On: 13-Oct-2010 Intent Anabella Turcios MD Pulse Oximetry ([id number])By: Dami ROGERS, On: 13-Oct-2010 Intent Anabella Turcios MD FLU VAC, SPLIT, >3 YEARS, INTRAMUSC On: 05-Sep-2010 Intent ([id number])By: Dasha Ramirez LPN Comments: Lot #[id number]/11site-right deltoidgiven by:[facility] ADMINISTRATION OF INFLUENZA VIRUS On: 05-Sep-2010 Intent VACCINE (G0008)By: Dasha Ramirez LPN Renal DopplerBy: Anabella Núñez MD On: 23-May-2010 Intent Anabella Núñez MD Ultrasound - TesticularBy: Mynor LION, On: 10-May-[address] - Abdomen & Pelvis (IV Contrast On: 09-May-2010 Intent Needed)By: Daria Lowe CNP Comments: today call wet read to [facility] ADMINISTRATION OF INFLUENZA VIRUS On: 26-Jul-2009 Intent VACCINE (G0008)By: Anabella Núñez MD Comments: lot # [id number]- [id number]- 0.5ML Tolerated well Chenderson MA Bonezzi MD, Anabella M FLU VAC, SPLIT, >3 YEARS, INTRAMUSC On: 26-Jul-2009 Intent ([id number])By: Anabella Núñez MD, MD, Dana M EKG ([id number])By: Gabriela Douglas On: 19-Jun-2008 Intent EsophagramBy: Anabella Núñez MD On: 20-Nov-2007 Intent Anabella Núñez MD Inhaler Demonstration ([id number])By: On: 02-Oct-2007 Intent Daria Lowe CNP Pulse Oximetry ([id number])By: Mynor LION, On: 02-Oct-2007 Intent Daria Otto Aerosol Treatment ([id number])By: Mynor On: 02-Oct-2007 Daria Pittman CNP Six Minute Walk Assessment ([id number])By: On: 27-Feb-2007 Intent Dhara Oquendo LPN Comments: ABN signed Inhaler Demo ([id number])By: Delisa Gordon DO On: 18-Feb-2007 Intent A Pulse Oximetry ([id number])By: DILSHAD LION, On: 31-Jan-2007 Intent MARIO Comments: 96% Aerosol Treatment ([id number])By: DILSHAD On: 31-Jan-2007 Intent MARIO LION Solu- Medrol Injection, 125mg On: 31-Jan-2007 Intent ([id number])By: MARIO YUNG CNP Aerosol Treatment ([id number])By: Evan BARFIELD, On: 28-Jan-2007 Intent Delisa Monte Inhaler Demo ([id number])By: Delisa Gordon DO On: 28-Jan-2007 Intent A Radiology - Chest- PA and LatBy: Evan On: 28-Jan-2007 Delisa Pittman DO Spirometry ([id number])By: Delisa Gordon DO On: 28-Jan-2007 Intent A Comments: good effort and curve- mild obstruction Pulse Oximetry ([id number])By: Gene, On: 28-Jan-2007 Intent Rolanda Comments: ins waiver [id number] initially - after tx was 95 Planned [...] for health maintenance examination with abnormal findings MS (myocardial infarction) : How to access health information online Indication: MS (myocardial infarction) MS (myocardial infarction) : How to access health information online - Detail Indication: MS (myocardial infarction) MS (myocardial infarction) : Patient Instructions Indication: MS (myocardial infarction) Allergic rhinitis : Patient Instructions [...] CHF (congestive heart failure), Abnormal laboratory test, MS (myocardial infarction) , Sensorineural hearing loss (SNHL) [...] Erectile dysfunction, Memory loss, Subdural hemorrhage, Nonsmoker, MS (myocardial infarction), Peripheral vascular disease, CKD (chronic [...] both ears, Memory loss, Abnormal laboratory test, MS (myocardial infarction), Erectile dysfunction, Peripheral vascular disease, [...] alcohol, Diabetes mellitus with chronic kidney disease, MS (myocardial infarction), Uncoordinated movements, Memory loss, Obesity, [...] Historical Summary On: 18-Apr-2017 9:33 Encounter Diagnosis: MS (myocardial infarction) End: 18-Apr-2017 9:36 Comprehensive Internal [...] syndrome), Uncoordinated movements, Hyperplasia, prostate, Macrocytosis, Hypertension, MS (myocardial infarction), Hypothyroid, Erectile dysfunction, Allergic rhinitis, [...] patient does h ave durable power of assistant district attorney and living will. The patient has noticed thinking most people are better off than them (due to heart concerns) and nothing from the geriatic depression scale. Other provide rs contributing to the patient's care are apparel pattern maker (fritz) and other: (Divina, kidney). Encounter Diagnosis: BMI 30.0-30.9,adult, Hyperplasia, prostate, MS (myocardial infarction), Allergic rhinitis, Macrocytosis, Cardiomyopathy, Obstructive [...] Testicular hypofunction, Hypothyroid, Erectile dysfunction, Allergic rhinitis, MS (myocardial infarction), Hyperplasia, prostate, Macrocytosis, Gum hyperplasia, [...] failure), Obesity, RLS (restless legs syndrome) , MS (myocardial infarction), Testicular hypofunction, Gum hyperplasia, BMI [...] - Reason for ER visit: note: (had MS in [place] ). The patient feels well with no complaints and has good energy level. Patient has been compliant with instructions. Current medicati End: 17-Mar-2016 13:29 on use: no side effects, compliant with dosing regimen and considered effective by patient. Patient sleeps 7 hours per night. Impact of disease: emotional impact-mild. Nutrition: balanced diet and suppl emental vitamins. Hospital procedures performed were heart catherization.Encounter Diagnosis: MS (myocardial infarction), History of tobacco abuse, Cardiac [...] The patient does have durable power of assistant district attorney and living will. The patient has noticed lack of energy. Other providers contributing to the patient's care are apparel pattern maker (Fritz), gastrologist (Dr. Small ) and other: [...] Nutrition: balanced diet and supplemental vitamins. The tx dical issues the patient is following up [...] compliant with instructions. Current medication use: no arlnee End: 03-Sep-2007 14:14 e effects and compliant [...]
--- OUTSIDE RECORDS SUMMARY | 2019-01-20 06:17 | XMS RPT_ITS | Continuity of Care Document ---
:1940 Author Organization [facility] Address [address] [facility] [address] [place] [address] Phone Care Team Providers Name Role Phone [...] literature about in medical journals. look like [place] ir[place] study that it did help. no side [...] M Start : 17-Aug-2017 Active Comments:changed from [facility] dc summary MagOx 400 400 (241.3 [...] MD, Dana M Start : 11-Nov-2018 Active ACIPHEX, 20MG (Oral Tablet Delayed Release) [...] 0 days Quantity: 360 {Tablet} Refills: 3 Ordered:5-Henry-2012 MATILDA Hernandez Start : 15-Aug-2011 End : [...] : 13-Oct-2010 End : 07-Apr-2011 Inactive NYSTATIN, [id number] (External Powder) 1 Powder bid for 0 days Quantity: 1 {Powder} Refills: 0 Ordered:05-Feb-2012 MATILDA Hernandez Start : 24-Nov-2011 End : 05-Feb-2012 Inactive OneTouch Ultra Blue In Vitro Strip 1 (one) Strip test qid for 30 days Quantity: 150 {Strip} Refills: 11 Ordered:28-May-2018 MATILDA Hernandez Start : 03-Apr-2018 End : 28-May-2018 Inactive Comments:E11.22 OneTouch UltraSoft Lancets Miscellaneous 1 (one) [facility] Misc test qid for 30 days Quantity: [...] for 9 days Refills: 0 Ordered:29-Aug-2016 Dami RGOERS, Anabella Bowie MD, Anabella Miller Start : [...] days Quantity: 20 {Tablet} Refills: 0 Ordered:10-Jul-2016 MTAILDA Hernandez Start : 16-Jun-2016 End : 10-Jul-2016 Inactive TRAMADOL HCL, 50MG (Oral Tablet) 1 Tablet qd/prn for 0 days Quantity: 30 {Tablet} Refills: 2 Ordered:21-Nov-2012 MATILDA Hernandez Start : 26-Jun-2011 End : 21-Nov-2012 Inactive Triamcinolone Acetonide 0.5 % External Cream 1 (one) Application Application daily on inner lower legs for 0 days Quantity: 1 {Tube} Refills: 0 Ordered:05-Nov-2018 MATILDA Hernandez Start : 16-Sep-2018 End : 05-Nov-2018 Inactive Comments:mix with Sarna TRILIPIX, 135MG (Oral Capsule Delayed Release) 1 [...] : 09-Mar-2011 End : 15-Aug-2011 Inactive ZOSTAVAX, 47307IIZ/0.65ML (Subcutaneous Solution Reconstituted) 1 For Solution once [...] days Quantity: 180 {Capsule} Refills: 3 Ordered:24-Aug-2017 Dami ROGERS, Anabella Carmichael MD Start : 24-Aug-2017 End : 24-Aug-2017 Discontinued Vitamin D3 High Potency 1000 UNIT Oral Capsule 1 (one) Capsule Capsule in am for 0 days Quantity: 30 {Capsule} Refills: 0 Ordered:11-Nov-2018 MATILDA Hernandez Start : 25-Jun-2017 End : 11-Nov-2018 Discontinued Comments:This order discontinued per [facility]. ZOCOR, 40MG (Oral Tablet) 1 Tablet Daily for 0 days Quantity: 30 {Tablet} Refills: 5 Ordered:26-Jul-2009 Dami ROGERS, Anabella Bowie MD, Anabella Miller Start : 26-Jul-2009 End : 26-Jul-2009 Discontinued [...] MDVIP portial stretches Status: Resolved as of 1-Dec-2017 Leg swelling (M79.89, 729.81) Status: Resolved as of 25-Dec-2017 RI (myocardial infarction) (I21.9, 410.90) Comments: talk about get records. see what cath showed talk about fish oil await doing biomarker sn inflammatory markers ? VT related since cath [facility] [place] had rafa st pain radiated down arm, and squad took him to hospital, told had RI, took off lasix, and put on bumex. [...] Dates Details CABG, USING 3 VENOUS GRAFTS (68137) Completed Comments: 1988, 10-08-02 (SVG to to LAD, SVG to right PDA, radial artery to OM-2) CARDIAC ABLATION (06955) Completed Comments: [facility] , [facility] 10-04-18 cholecytectomy 10-04 Completed CRANIOTOMY, EMERGENT, FOR SUBDURAL Completed HEMATOMA EVACUATION (34611) Comments: [facility] Completed Comments: stent 10-04 Left heart cath Completed Comments: [facility] Right and left coronary angiography, Saphenous vein with angiography hemostatsis with Mynx Dr. [id number] Left Heart Cath [facility] DX: moderate to severe elevated LVEDP pacemaker Completed Comments: 2001, ICD, replaced 06-11 Total right hip replacement Completed Comments: [facility] 11-07-11 rec. 3 units PRBC's Date Value Details 04-Nov-2018 Cardiology Visit Report Result: Comments: See Note; NOTES: [facility] [address] [place] [address] OFFICE VISIT Date of Service: 11/04/18 MR#: [id number] Acct: [id number] Name: MAYRA GHOSH Rep #: [id number] : 1940 Provider: Amando Hu MD Age/Sex: 78/M Location: [facility] Status: Signed HPI HPI Details: MAYRA GHOSH, is a 78 M who presents to the office today for outpatient cardiovascular follow-up. He has recently been at [facility] as well as subsequently at [facility]. [...] at the time. He then returned to [facility] because of weakness. There were concerns [...] BID 11/04/18 [History Confirmed 11/04/18] [facility] Medical History HLD (hyperlipidemia) (Chronic) Non-ST e [...] (Chronic) Hypokalemia (Chronic) Atherosclerotic heart disease of [place] coronary artery without angina pectoris (Chronic) Ventricular [...] (Examined in the wheelchair) Nutritional Appearance: overweight [place] ation: alert, awake and oriented x3 Head [...] disease involving eva nary bypass graft of [place] heart, angina presence unspecified I25.10 Plan He [...] 3 Months (with PFM) 11/04/18 (copy of F labs) Coding Level of Care Code Off vis,est,level 4 Diagnoses Atrial fibrillation I48.91 History of cardiac radiofrequency ablation (RFA) Z98.890 A utomatic implantable cardiac defibrillator in situ Z95.810 Coronary artery disease involving coronary bypass graft of [place] heart, angina presence unspecified I25.10 Postsurgical aortocoronary [...] artery disease involving coronary bypass graft of [place] heart, angina presence unspecified I25.10 Postsurgical aortocoronary [...] MD 04-Nov-2018 12 Lead EKG performed by [facility] Result: Comments: See Note; NOTES: [facility] [address] [place] [address] 12 Lead EKG performed by [facility] 11/04/18 1605 MR#: [id number] Acct: [id number] Name: MAYRA GHOSH Rep #: [id number] : 1940 78 From: Amando Hu MD Attending Dr: Amando Hu MD Status: DEP AMB Ordering Dr: Amando Hu MD Date: 11/04/18 [place]: [facility] Sex: M C Admitted: O RDER #: [id number] [facility]/12 Lead EKG performed by [facility] ECG Report Interpretation Somatic / motion artifactElectronic ventricular pacemakerPacemaker ECG, No further analysis Electro nically signed on 11/04/2018 at 17:50 by Amando Hu Software Version 8610 11/04/18 1755 Date Amando Hu MD CC: Anabella Núñez MD Da te Dictated: 11/04/18 1605 Date Transcribed: 11/04/181604 Field Crop Farmer: PM Signed 19-Dec-2018 Emergency Department Summary Result: Comments: See Note; NOTES: [facility] Medical Records Department [address] [place] [address] Emergency Department Summary 10/16/18 1348 MR#: [id number] Acct: [id number] Name: MAYRA GHOSH Rep #: [id number] : 1940 78 From: Darrel Bean MD PCP: Anabella Núñez MD Status: REG ER - ER Visit Summary Date of Service: 10/16/18 Chief Complaint: Cough and generalized weakn ess. History of Present Illness: The patient is a [address] of cardiomyopathy, V. tach, defibrillator, noncemented diabetes, renal insufficiency, CAD with prior double bypass. Recent ablation at [facility]. Prior intracranial bleed with surgical drainage. Patient [...] significant concern he was discharged twice from [facility] and had to be readmitted. She is [...] and CABG and cardiomyopa thy History of hcd-wwsqdsf-tcvfqinlp diabetes History of renal insufficiency This note was generated with [employer] dictation software. It may contain incorrect words, [...] Emergency Room. Call 911 if necessary. 10/16/18 1647 <Electronically signed by Darrel Bean MD> Date Star Bean MD Cosigner Signature (If Indicated): Date CC: Anabella Núñez MD 16-Oct-2018 Chest 1 View (Portable) Result: Comments: See Note; NOTES: [facility] Imaging Services [address] [place] [address] Chest 1 View (Portable) MR#: [id number] Acct: [id number] Name: MAYRA GHOSH Rep #: [id number] : 1940 M 78 From: Gene Martell DO PCP: Anabella Núñez MD Status: REG ER Study: Chest 1 View (Portable) Date of Exam: 10/16/18 Exam# [id number] Ordering Dr: Darrel Bean MD STUDY: X-RAY [...] CC: Anabella Núñez MD; Darrel Bean MD Field Crop Farmer: Signed 30-Sep-2018 Chest 1 View (Portable) Result: Comments: See Note; NOTES: [facility] Imaging Services [address] [place] [address] Chest 1 View (Portable) MR#: [id number] Acct: [id number] Name: MAYRA GHOSH Rep #: [id number] : 1940 M 78 From: Nereyda Barr MD PCP: Anabella Núñez MD Status: REG ER Study: Chest 1 View (Portable) Date of Exam: 09/30/18 Exam# [id number] Ordering Dr: Jennifer Sibley MD STUDY: X-RAY [...] CC: MD Zelalem palma; Anabella Núñez MD Field Crop Farmer: Signed 22-Sep-2018 History and Physical Exam Result: Comments: See Note; NOTES: [facility] Medical Records Department [address] [place] [address] History and Physical 09/22/18 0602 MR#: [id number] Acct: [id number] Name: JETHRO GHOSH Rep #: [id number] : 1940 78 From: Etta Grey PCP: [...] Qualifiers: Coronary Disease-Associated Artery/Lesion type: bypass graft [place] vs. transplanted he art: [place] heart Associated angina: angina presence unspecified Qualified Code(s): I25.810 - Atherosclerosis of coronary artery bypass graft(s) without angina pectoris (6) XOCHITL (obstructive sleep apnea ) Status: Chronic (7) Diabetes mellitus type 2, noninsulin dependent Status: Chronic (8) Atherosclerotic heart disease of [place] coronary artery without angina pectoris Status: Chronic Qualifiers: [place] vs. transplanted heart: [place] heart Qualified Code(s): I25.10 - Atherosclerotic heart disease of [place] coronary artery without angina pectoris Comment: CABG [...] type II, XOCHITL who presents to the [facility] ED on 09/22/18 with history of [...] (Chronic) Hypokalemia (Chronic) Atherosclerotic heart disease of [place] coronary artery without angina pectoris (Chronic) CABG 1988; Reoperation CABG x3 SVG to LAD, SVG to Rt PDA, Radial artery to OM-2 10/08/02; VT ablation @[facility] 01[facility] 03/10/2016 Ventricular tachycardia (paroxysmal) (Chronic) ICD (implantable cardioverter-defibrillator) in place (Chronic 11/2001) Implant 12/10/2001 ICD replacement 06/10/2009, 06/05/2014, Systolic CHF, chronic (Chronic) Cardiomyopathy, ischemic (Chronic) CKD (chronic kidney disease), stage II (Chronic) Type I I diabetes mellitus, uncontrolled (Chronic) Esophageal reflux (Chronic) HLD (hyperlipidemia) (Chronic) HTN (hypertension) (Chronic) Hypothyroidism (Chronic) Sleep apnea (Chronic) Medical History: [facility] History (Last Reviewed 08/30/18 @ 13:48 [...] Hypokalemia (Chronic) E87.6 Atherosclerotic heart disease of [place] coronary artery without angina pectoris (Chronic) I25.10 CABG 1988; Reoperation CABG x3 SVG to LAD, SVG to Rt PDA, R adial artery to OM-2 10/08/02; VT ablation @[facility] 01[facility] 03/10/2016 Ventricular tachycardia (paroxysmal) (Chronic) I47.2 [...] II, XOCHITL who present s to the [facility] ED on 09/22/18 with history of [...] heparin. Code Visit OBSV E AND M: 91217 Initial observation care L3 09/22/18 0634 <Electronically signed by Etta Grey > Date Etta Grey Cosign er Signature: Date (if applicable) CC: Etta Grey; Anabella Núñez MD Signed 22-Sep-2018 Emergency Department Summary Result: Comments: See Note; NOTES: [facility] Medical Records Department [address] [place] [address] Emergency Department Summary 09/22/18 0619 MR#: [id number] Acct: [id number] Name: MAYRA GHOSH Rep #: [id number] : 1940 78 From: Juan C Winston [...] Epiploic appendagitis This note was generated with [employer] dictation software. It may contain incorrect words, spelling, and punctuation that were not noted in review of the [facility] rt prior to signing ED Disposition - Plan for ED Patient: Chief Complaint: Nausea/Vomiting Referrals: Anabella Núñez MD [Primary Care Provider] - What to do if you have Problems For any increased pain, shortness of breath, bleeding, nausea or vomiting, chest pain, or any unexpected problems, contact your Primary Care Provider. Call [facility] ([phone]) or report to the closest Emergen cy Room. Call 911 if necessary. 09/22/18 0621 <Electronically signed by Juan C Winston MD> Date Juan C Winston MD Cosigner Signatur e (If Indicated): Date CC: Anabella Núñez MD 22-Sep-2018 Abdomen/Pelvis without Cont Result: Comments: See Note; NOTES: [facility] Imaging Services [address] [place] [address] Abdomen/Pelvis without Cont MR#: [id number] Acct: [id number] Name: MAYRA GHOSH Rep #: [id number] : 1940 M 78 From: Vernon Coronel MD PCP: Anabella Núñez MD Status: REG ER Study: Abdomen/Pelvis without Cont Date of Exam: 09/22/18 Exam# [id number] Ordering Dr: Juan C Winston MD STUDY: [...] Anabella Núñez MD; Juan C Winston MD Field Crop Farmer: Signed 30-Aug-2018 Cardiology Visit Report Result: Comments: See Note; NOTES: [facility] [address] [place] [address]. [address] [place] [address] OFFICE VISIT Date of Service: 08/30/18 MR#: [id number] Acct: [id number] Name: MAYRA GHOSH Re p #: [id number] : 1940 Provider: Amando Hu MD Age/Sex: 78/M Location: [facility] Status: Signed HPI HPI Details: MAYRA [...] tab 08/30/18 [History Confirmed 08/30/18] [facility] Medical History HLD (hyperlipidemia) (Chronic) Non -ST [...] (Chronic) Hypokalemia (Chronic) Atherosclerotic heart disease of [place] coronary artery without angina pectoris (Chronic) Ventricular [...] Negative for rash Cardiology Exam Const Appearance: gis coordinator perative, healthy appearing, comfortable, no acute [...] study was technically difficult. Contrast injection was [id number]. Mildly dilated left ventricle. Moderately severe segmental [...] peak blood pressure of 116/66 mmHg. The [facility] ECG demonstrated normal sinus rhythm [...] an LVEF of 26%. Cardiac cath: 016: [place], [place] II. SELECTIVE CORONARY ANGIOGRAPHY: A. The [...] The circumflex system is not visualized on [place] left coronary inj ection, but rather faint [...] add ramipril - lCD programmed ON ICD Road Oiling Truck Driver: [employer]ad[employer] Name: Josianea S CRTD Model #: DTBB 1D1 Serial #: [id number] Date Implanted: 06/05/2014 Device Characteristics Device: Biventricular Type: Implantable defibrillator Remote:[facility] Assessment AND Plan 1. 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 He appears to be tolerating the medications [...] to saving. Follow Up 6 Mo nt ([facility]) 08/30/18 (Copy of BMP from PCP and Nephrology) Coding Level of Care Code Off vis,est,level 4 Diagnoses CAD in [place] artery I25.10 Postsurgical aortocoronary bypass status Z95.1 [...] Code Off vis,est,level 4 Diagnoses CAD in [place] artery I25.10 Postsurgical aortocoronary bypass status Z95.1 [...] M.D. 30-Aug-2018 12 Lead EKG performed by [facility] Result: Comments: See Note; NOTES: [facility] [address] [place] [address] 12 Lead EKG performed by [facility] 08/30/18 1425 MR#: [id number] Acct: [id number] Name: MAYRA GHOSH Rep #: [id number] : 1940 78 From: Amando Hu MD Attending Dr: Amando Hu MD Status: DEP AMB Ordering Dr: Amando Hu MD Date: 08/30/18 Location: [facility] Sex: M C Admitted: O RDER #: [id number] BMS/12 Lead EKG performed by [facility] ECG Report Interpretation Electronic ventricular pacemaker Pacemaker ECG, No further analysis Electronically signed on 2017 at 15:23 by Amando Hu Software Version 8610 08/30/18 1524 Date Amando Hu MD CC: Anabella Núñez MD Date Dictated: 08/30/18 Date Transcribed: 08/30/181424 Field Crop Farmer: PM Signed 14-Aug-2018 Pacemaker Check Result: Comments: See Note; NOTES: [facility] [address] [place] [address] Pacemaker Check Date of Service: 08/14/181619 MR#: [id number] Acct: [id number] Name: CLARE GHOSH W Rep #: [id number] : 1940 From: Kristie Perry Age/Sex: 78/M Location: [facility] Status: Signed Billing Codes ICD Device Billing: ICD Dev Interrogate (Rmt) 08/14/18 1623 <Electroni jacque signed by Kristie Perry > Date Kristie Perry 08/14/18 164<Electronically signed by Amando Hu MD> Wei Signsanaz e: Date (if applicable) Amando Hu MD CC: 30-Jul-2018 Pacemaker Check Result: Comments: See Note; NOTES: [facility] [address] [place] [address] Pacemaker Check Date of Service: 07/30/18 0949 MR#: [id number] Acct: [id number] Name: CLARE GHOSH W Rep #: [id number] : 1940 From: Kristie Perry Age/Sex: 78/M Location: [facility] Status: Signed Billing Codes ICD Device Billing: ICD Dev Interrogate (Rmt) 07/30/18 0951 <Electroni jacque signed by Kristie Perry > Date Kristie Perry 07/30/18 1047<Electronically signed by Amando Hu MD> Wei Signatstephanie e: Date (if applicable) Amando Hu MD CC: 07-May-2018 Pacemaker Check Result: Comments: See Note; NOTES: [facility] [place] [address] Pacemaker Check Date of Service: 05/07/181649 MR#: [id number] Acct: [id number] Name: CLARE GHOSH Rep #: [id number] : 1940 From: Kristie Perry Age/Sex: 78/M Location: [facility] Status: Signed Billing Codes ICD Device Billing: ICD Dev Interrogate (t) 05/07/181653 <Electroni jacque signed by Kristie Perry > Date Kristie Perry 05/07/181756<Electronically signed by Amando Hu MD> Wei Signsanaz e: Date (if applicable) Amando Hu MD CC: 22-Feb-2018 Cardiology Visit Report Result: Comments: See Note; NOTES: [facility] [address] [place] [address] OFFICE VISIT Date of Service: 02/22/18 MR#: [id number] Acct: [id number] Name: MAYRA GHOSH Re p #: [id number] : 1940 Provider: Amando Hu MD Age/Sex: 77/M Location: [facility] Status: Signed HPI HPI Details: MAYRA GHOSH, is a 77 M who presents to the office today for for outpatient card iovascular follow-up. He has been hospitalized at [facility] in December of this year for [...] QWEEK PRN tab 02/22/18 [History] [facility] Medical His tory HLD (hyperlipidemia) (Chronic) Non-ST [...] (Chronic) Hypokalemia (Chronic) Atherosclerotic heart disease of [place] coronary artery witho ut angina pectoris (Chronic) [...] his underlying renal status. 2. Atherosclerosis of [place] coronary artery of [place] heart without angina pectoris I25.10 CABG 1988; Reoperation CABG x3 SVG to LAD, SVG to Rt PDA, Radial artery to OM-2 10/08/02; VT ablation @[facility] 01/03/17 [facility] 03/10/2016 Plan He does have a [...] Systolic CHF, chronic I50.22 Atherosc lerosis of [place] coronary artery of [place] heart without angina pectoris I25.10 [place] vs. transplanted heart: [place] heart Postsurgical aortocoronary bypass status Z95.1 Cardiomyopathy, [...] Diagnoses Systolic CHF, chronic I50.22 Atherosclerosis of [place] coronary artery of [place] heart without angina pectoris I25.10 [place] vs. transpla nted heart: [place] heart Postsurgical aortocoronary bypass status Z95.1 Cardiomyopathy, [...] Pacemaker Check Result: Comments: See Note; NOTES: [facility] [place] [address] Pacemaker Check Date of Service: 02/11/181907 MR#: [id number] Acct: [id number] Name: CLARE GHOSH Rep #: [id number] : 1940 From: Kristie Perry Age/Sex: 77/M Location: [facility] Status: Signed Comments Summary Comments: Remote [...] Location: remote Interview Reason: scheduled follow up Road Oiling Truck Driver: [employer]tr[employer] Name: Viva S HOSPITALITY HOUSEKEEPER-D Model: [id number] Serial #: [id number] Implant Date: 06/05/14 Year(s): 3 Implant Physician: Dr. Saturnino Oquendo/[facility] Patient Characteristics Ventricular Indication: Nonsustained VT, Sustaned VT Patient Substrate: Ischemic cardiomyopathy Ejection fraction %: 35 to 39 ( 02/2017) By: Echo Pacemaker Dependent: No Device Characteristics Device: Biventricular Type: Implantable defibrillator Remote Follow-Up: [facility] [employer] Lead #1 Road Oiling Truck Driver Lead 1: [place] Model Lead 1: 2088TC Serial# Lead 1: [id number] Date Implanted Lead 1: 06/05/14 Position Lead 1: RA Lead #2 Road Oiling Truck Driver Lead 2: Medtronic Model Lead 2: 6947 Serial# Lead 2: [id number] Date Implanted Lead 2: 11/[address] Oiling Truck Driver Lead 3: [place] Model Lead 3: 1258T Serial# Lead 3: [id number] Date Implanted Lead 3: 06/05/14 Position Lead [...] I25.5 3. Ventricular tachycardia (paroxysmal) I47.2 02/11/18 194 & amp;#60;Electronically signed by Kristie Perry > Date Kristie Perry 02/12/18 0933<Electronically signed by Amando Hu MD> Cosigner Signature: Date (if applicable) Amando Hu MD CC: 18-Jan-2018 Chest 1 View (Portable) Result: Comments: See Note; NOTES: [facility] Imaging Services [address] [place] [address] Chest 1 View (Portable) MR#: [id number] Acct: [id number] Name: MAYRA GHOSH Rep #: [id number] : 1940 77 From: Renae Coleman MD PCP: Anabella Núñez MD Status: REG ER Study: Chest 1 View (Portable) Date of Exam: 01/18/18 Exam# [id number] Ordering Dr: Bennie Hernandez MD STUDY: X-RAY [facility] REASON FOR EXAM: Male, 77 [...] CC: Anabella Núñez MD; Bennie Hernandez MD Field Crop Farmer: Signed 09-Jan-2018 Chest PA and Lateral Result: Comments: See Note; NOTES: [facility] Imaging Services [address] [place] [address] Chest PA and Lateral MR#: [id number] Acct: [id number] Name: MAYRA GHOSH Rep #: [id number] : 1940 [facility] From: Louis Sue MD PCP: Anabella Núñez MD Status: REG CLI Study: Chest PA and Lateral Date of Exam: 01/09/18 Exam# [id number] Ordering Dr: Delisa Gordon DO STUDY: X-RAY [...] Louis Sue MD at 12:59 EDT Tel [phone], Service support , CC: Anabella Núñez MD; Delisa Gordon DO Field Crop Farmer: Signed 07-Jan-2018 Inital Evaluation (1) - PT Result: Comments: See Note; NOTES: [facility] Physical Therapy [facility] [place] [address] Fax REHABILITATION SERVICES INITIAL EVALUATION MR#: [id number] Acct: [id number] Name: MAYRA GHOSH Rep #: [id number] : 1940 77 From: Polo Bedolla DPT, OCS, CSCS Referring Dr.: CLARI Smith Status: REG RCR Insurance: [facility] SELF PAY INSURANCE Patient's Visit Information MAYRA GHOSH is a 77 year old M referred to Physical Therapy by Krystal Smith NP-C JOB TRAINER.APOLINAR with a diagnosis of unsteady. Date of Evaluation: 01/03/18 P hysical Therapist: Polo Bedolla DPT, OC - Visit Plan Plan: Pt doesn not want to undergo further balance or strength at this time as he can and will continue on his own as planned. He has no falls nor does he feel unsteady. He does wihs to undergo patrol driver evaluation and he understands that we do not do that at [facility] and the closest place to my knowledge is in [place]. He understands doctors offic e has written a script for that and is awaiting their referral phone call. Otherwise he will continue ex as planned in previous discharge summary. - Subjective Subjective: Dizzyness and balance the jagdish e as last week. Not sure why he is here. Saw both doctors last week and said he was fine. Will workout at [facility] I adn continue HEP of balance ex as taught to him. Does nto wish to have balance PT. Thought he was having patrol driver evaluation. No other major changes since [...] to be FAXED BACK to us at [phone] for Medicare purposes. Please let me know [...] Summary (1) Result: Comments: See Note; NOTES: [facility] Physical Therapy Health[address] [place] [address] Fax REHABILITATION SERVICES DISCHAR GE SUMMARY MR#: [id number] Acct: [id number] Name: MAYRA GHOSH Rep #: [id number] : 1940 77 From: Polo Bedolla DPT, OCS, CSCS Referring Dr.: Anabella Núñez MD Status: REG RCR [facility] HP - [...] please feel free to call me at [phone]. Thank you for the referral of this patient. Sincerely, Polo Jewell am, DPT, OC <Electronically signed by Polo Bedolla DPT, OCS, CSCS> 12/25/17 0906 CC: Anabella Núñez MD EBG Signed 10-Dec-2017 Office Visit Report Result: Comments: See Note; NOTES: [facility] [address] [facility] [place] [address] OFFICE VISIT Date of Service: 10/25/17 MR#: [id number] Acct: [id number] Patient: MAYRA GHOSH Rep #: [id number] : 1940 Provider: Kristie Perry Age/Sex: 77/M [place] [facility] Status: Signed Device Device Date Interviewed: 10/25/17 Follow-up Location: remote Interview Reason: scheduled follow up Man ufacturer: Medtronic Name: Viva S HOSPITALITY HOUSEKEEPER-D Model: [id number] Serial #: [id number] Implant Date: 06/05/14 Year(s): 3 Implant Physician: Dr. Saturnino Oqu[facility] Patient Characteristics Ventricular Indication: Nonsu stained VT, Sustaned VT Patient Substrate: Ischemic cardiomyopathy Ejection fraction %: 35 to 39 (02/2017) By: Echo Underlying rhythm: Sinus rhythm (1st degree AVB and frequent PVC's) Pacemaker Dependen t: No Device Characteristics Device: Biventricular Type: Implantable defibrillator Remote Follow-Up: [employer] Lead[employer] Lead #1 Road Oiling Truck Driver Lead 1: [place] Model Lead 1: 2088TC Serial# Lead 1: [id number] Date Implanted Lead 1: 06/05/14 Position Lead 1: RA Lead #2 Road Oiling Truck Driver Lead 2: Coradiant Model Lead 2: 6947 Serial# Lead 2: [id number] Date Implanted Lead 2: 11/09/[address] Oiling Truck Driver Lead 3: [place]. [place] Model Lead 3: 1258T Serial# Lead 3: [id number] Date Implanted Lead 3: 06/05/14 Position Lead [...] <Electronically signed by Ollie HERNANDEZ> Date Kristie Perry Cosigner Signature : Date (if applicable) CC: 03-Dec-2017 Inital Evaluation (1) - PT Result: Comments: See Note; NOTES: [facility] [address] [place] [address]. [address] [place] [address] Fax REHABILITATION SERVICES INITIAL EVALUATION MR#: [id number] Acct: [id number] Name: MAYRA GHOSH Rep #: [id number] : 1940 77 From: Polo Bedolla DPT, OCS, CSCS Referring Dr.: Anabella Núñez MD Status: REG RCR Insurance: [employer] SELF PAY INSURANCE Patient's Visit Information MAYRA [...] wear him out to get to the [employer]. Normally works out at [employer] with balance ex. Feels like vik jane [...] to be FAXED BACK to us at [phone] for Medicare purposes. Please let me know if there are questions or concerns regarding this plan of care. Physician Signature: Date: <Electronically sig favian by Polo Bedolla DPT, OCS, CSCS> 12/03/17 0942 CC: Anabella Núñez MD EBG Signed For Medicare only, by signing this I certify the plan of care. Physicians Signature Date 14-Nov-2017 Cardiology Visit Report Result: Comments: See Note; NOTES: [facility] [address] [place] [address]. [address] [place] [address] OFFICE VISIT Date of Service: 11/14/17 MR#: [id number] Acct: [id number] Name: MAYRA GHOSH Re p #: [id number] : 1940 Provider: Amando Hu MD Age/Sex: 77/M Location: [facility] Status: Signed HPI 3 M FU: [...] nsufficiency, and more recently concerns of his TOXICOLOGIST related issues with respect to subdural hematoma [...] pharmacologic stress nuclear imaging study performed at [facility] on 09/02/2013. At that time he [...] last diagnostic cardiac catheterization was performed at [facility] in [place], [place] on 03/08/2016. At that ti me [...] CABG was performed on 10/08/2002 at the [facility]. 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 Follow Up 4 Mo nths (PF) Coding Level of Care Code Off vis,est,level 4 Diagnoses CAD (coronary artery disease) I25.10 Coronary Disease-Associated Artery/Lesion type: bypass graft [place] vs. transplanted heart: justin mary heart Postsurgical [...] and Lateral Result: Comments: See Note; NOTES: [facility] Imaging Services [address] [place] [address] Chest PA and Lateral MR#: [id number] Acct: [id number] Name: MAYRA GHOSH Rep #: [id number] : 1940 77 From: Nereyda Barr MD PCP: Anabella Núñez MD Status: REG CLI Study: Chest PA and Lateral Date of Exam: 11/11/17 Exam# [id number] Ordering Dr: Anabella Núñez MD STUDY: X-RAY [...] Service support , CC: Anabella Núñez MD Field Crop Farmer: Signed 30-Oct-2017 Office Visit Report Result: Comments: See Note; NOTES: [facility] [address] [place], [place] [address] [address] OFFICE VISIT Date of Service: 10/25/17 MR#: [id number] Acct: [id number] Patient: MAYRA GHOSH Rep #: [id number] : 1940 Provider: Kristie Perry Age/Sex: 77/M Location[place] [facility] Status: Signed Device Device Date Interviewed: 10/25/17 Follow-up Location: remote Interview Reason: scheduled follow up Man ufacturer: Medtronic Name: Viva S HOSPITALITY HOUSEKEEPER-D Model: [id number] Serial #: [id number] Implant Date: 06/05/14 Year(s): 3 Implant Physician: Dr. Saturnino O[facility] Patient Characteristics Ventricular Indication: Nonsu stained VT, Sustaned VT Patient Substrate: Ischemic cardiomyopathy Ejection fraction %: 35 to 39 (02/2017) By: Echo Underlying rhythm: Sinus rhythm (1st degree AVB and frequent PVC's) Pacemaker Dependen t: No Device Characteristics Device: Biventricular Type: Implantable defibrillator Remote Follow-Up: [employer] Lead #1 Road Oiling Truck Driver Lead 1: [place] Model Lead 1: 2088TC Serial# Lead 1: [id number] Date Implanted Lead 1: 06/05/14 Position Lead 1: RA Lead #2 Road Oiling Truck Driver Lead 2: Amuratronic Model Lead 2: 6947 Serial# Lead 2: [id number] Date Implanted Lead 2: 11/09/[address] Oiling Truck Driver Lead 3: [place]. [place] Model Lead 3: 1258T Serial# Lead 3: [id number] Date Implanted Lead 3: 06/05/14 Position Lead [...] Summary (1) Result: Comments: See Note; NOTES: [facility] Physical Therapy [facility] [place], [place] [address] Fax REHABILITATION SERVICES DISCHAR GE SUMMARY MR#: [id number] Acct: [id number] Name: MAYRA GHOSH Rep #: [id number] : 1940 77 From: Polo Bedolla DPT, OCS, CSCS Referring DrDusty: CLARI Smith Status: REG RCR Insurance: [facility]NA [facility] - PT D/C Summary It has been my pleasure to treat MAYRA GHOSH under orders from Krystal Smith, JOB TRAINER-C, for the diagnosis of debility, intracranial hemmorhage for a total of 19 visit(s). Discharge Da te: 12/15/17 Please see the following information for a [...] please feel free to call me at [phone]. Thank you for the referral of this patient. Sincerely, Polo Bedolla, DPT, OC <Electronically signed by Polo WILSONT, OCS, CSCS> 10/15/17 0645 CC: CLARI Smith; Anabella Núñez MD EBG Signed 24-Sep-2017 D/C Summary- SP Result: Comments: See Note; NOTES: [facility]ology [facility] [address] [place] [address] Fax REHABILITATION SERVICES DISCHAR GE SUMMARY MR#: [id number] Acct: [id number] Name: MAYRA GHOSH Rep #: [id number] : 1940 77 From: Darlin Wilson M.S., [facility]-BALANCE WHEEL HAND FILER Referring DrDusty: CLARI Smith Status: REG RCR Insurance: AET NA [facility] Discharge Summary - Discharged: Discharge: [...] CI <Electronically signed by Darlin Wilson M.S., CCC-BALANCE WHEEL HAND FILER&#6 2; 09/24/17 1428 CC: CLARI Smith; Anabella Núñez MD MO Signed 21-Sep-2017 OT D/C Summary Result: Comments: See Note; NOTES: [facility] Occupational Therapy [facility] [address] [place], [place] [address] Fax REHABILITATION SERVICES DIS CHARGE SUMMARY MR#: [id number] Acct: [id number] Name: MAYRA GHOSH Rep #: [id number] : 1940 77 From: Ev Rahman Referring Dr.: CLARI Smith Status: REG RCR Eval Date: Discharge Date : - OT D/C Summary It has been [...] MMT. Additional strength assessments are as follows: plating inspector R 85, L 75; lateral R 15, [...] Resume Hobbies Goal:: Pt. to increase R plating inspector strength by 15 -20 lbs to promote [...] please fell free to call me at [phone]. Thank you for the referral of this patient. Sincerely, Ev Rahman <Electronically signed by Ev Rahman > 09/21/17 1203 CC: CLARI Smith; Anabella Núñez MD KMB Signed 18-Sep-2017 Re-Evaluation - PT (1) Result: Comments: See Note; NOTES: [facility] [address] [place] [address]. [address] [place] [address] Fax REEVALUATION / MEDICARE RECERTI [facility] PHYSICAL THERAPY MR#: [id number] Acct: [id number] Name: MAYRA GHOSH Rep #: [id number] : 1940 77 From: Polo Bedolla DPT, OCS, CSCS Referring DrDusty: CLARI Smith Status: REG RCR Insura nce: [facility]ETNA [facility] Krystal Smith, JOB TRAINER-C, It has been my pleasure to treat [...] not hesitat e to contact me at [phone] by phone or if you have questions or concerns regarding this new plan of care! Sincerely, Polo Bedolla, DPT, OC <Electronically signed by Pk Bedolla DPT, OCS, CSCS> 09/18/17 0922 CC: CLARI Smith; Anabella Núñez MD EBG Signed For Medicare only, by signing this I certify the plan of care. Physicians Signature Date 03-Sep-2017 OT General Evaluation Result: Comments: See Note; NOTES: [facility] [address] [place] [address]. [address] [place] [address] Fax REHABILITATION SERVICES IN TIA EVALUATION MR#: [id number] Acct: [id number] Name: MAYRA GHOSH Rep #: [id number] : 1940 77 From: Ev Rahman Referring Dr.: CLARI Smith Status: REG R Insurance: [facility] l Date: Patient's Visit Information MAYRA GHOSH is a 77 year old M, referred to Occupational Therapy by LORENZO Guthrie,, with a diagnosis of fall-related intracranial hemorrhage s/pcraniotomy. D ate of Evaluation: 08/27/17 Occupational Therapist: Ev Rahman - Subjective Subjective: Pt., Mayra, had fall july 03 and he was admitted into [facility]. present for evaluation and no johnathan that while in hospital he has multiple seizures. HE was transferred up to [place] in which craniotomy was preformed to help decrease pressure on brain as is was continuing to swell. While in [facility] after surgery he was intubated due [...] L 4/5 Wrist: R 3+/5, L 4/5 Firmware Software Verification Engineer: R 75, L 79 Lateral Pinch: R [...] - Goals Goal:: Pt. to increase R plating inspector strength by 15-20 lbs to promote increased [...] d/c. - Rehabilitation General Assessment: Pt., Mayra cammy Walsh, presents with R UE weakness. He is R hand dominant and notes using R hand for most all tasks. He will recieve OT services to promote increasing B UE strength, plating inspector and FMC strength, finger dexterity, B hand [...] to be FAXED BACK to us at [phone] for Medicare purposes. Please let me know if there are questions or concerns regarding this plan of care. Physician Signature: Date: <Electronically signed by Ev Rahman > 09/03/17 1032 CC: CLARI Smith; Anabella Núñez MD KMB Signed For Medicare only, by signing this I certify the plan of care. Physicians Signature Date 29-Aug-2017 Inital Evaluation (1) - PT Result: Comments: See Note; NOTES: [facility] [address] [place] [address]. [address] [place] [address] Fax REHABILITATION SERVICES INITIAL EVALUATION MR#: [id number] Acct: [id number] Name: MAYRA GHOSH Rep #: [id number] : 1940 77 From: Polo Bedolla DPT, OCS, CSCS Referring Dr.: CLARI Smith Status: REG R Insurance: [facility] Patient's Visit Information MAYRA GHOSH is a 77 year old M referred to Physical Therapy by Krystal Smith, CLARI-C with a diagnosis of debility, intracranial hemmorhage. Date of Evaluation: 08/27/17 [facility] Therapist: Polo Bedolla, LINUS, OC - Visit [...] to be FAXED BACK to us at [phone] for Medicare purposes. Please let me know if there are questions or concerns regarding this plan of care. Physician Signature: Date: <Electronically signed by Polo Bedolla DPT , OCS, CSCS> 08/29/17 0735 CC: CLARI Smith; Anabella Núñez MD EBDon Signed For Medicare only, by signing this I certify the plan of care. ___ Physicians Signature Date 28-Aug-2017 Adult Evaluation - SP Result: Comments: See Note; NOTES: [facility]ology [facility] [address] [place], [place] [address] Fax REHABILITATION SERVICES INITIAL EVALUATION MR#: [id number] Acct: [id number] Name: MAYRA GHOSH Rep #: [id number] : 1940 77 From: Tracy Hartman Referring DrDusty: CLARI Smith Status: REG R Insurance: [employer] Histo ry - History Date of Eval: 08/27/17 Medical Diagnosis (from RX): debility s/p craniotomy Previous speech therapy: Yes Results: Pt [facility] for primarily word finding deficits. Oth er Relevant Medical History/Diagnoses/Surgery: Pt had a fall which resulted in a craniectomy relieve pressure. Pt was at [facility], then [facility], back to [facility], and back to [facility]. Medications related to this diagno sis: [...] Lead Electrocardiogram Result: Comments: See Note; NOTES: [facility] Cardiovascular Services [address] [place] [address] 12 Lead EKG 07/04/171649 MR#: [id number] Acct: [id number] Name: MAYRA GHOSH Rep # : [id number] : 1940 77 From: Bennie Ray MD [...] Abnormal ECG Confirmed by BENNIE RAY ([id number]), television news video editor YANG BARR ([id number]) on 07/06/2017 10:58:37 AM Referred By: ADONAY Confirmed By:BENNIE RAY 07/06/17 1058 Date Bennie Ray MD CC: Anabella Núñez MD Date Dictated: 07/04/171649 Date Transcribed: 07/04/171649 Field Crop Farmer: Signed 04-Jul-2017 Emergency Department Summary Result: Comments: See Note; NOTES: [facility] Medical Records Department [address] [place] [address] Emergency Department Summary 07/04/171655 MR#: [id number] Acct: [id number] Name: MAYRA GHOSH Rep #: [id number] : 1940 77 From: Juan C Winston [...] answer some questions after arrival [facility] emergency department. notes that he did [...] left subdural hemorrhage with midline shift. Laborat orbilly studies CT C-spine chest x-ray all pending. [...] transfer. Patient will be transf erred to [facility] and was accepted by the emergency physician. [...] via helicopter. Treatment Plan: [] Disposition: Transfer [facility] Impression: Subdural hemorrhage with midline shift Seizures ED Disposition - Plan for ED Patient: Chief Complaint: i taryn Referrals: Anabella Núñez MD [Primary Care Provider] - What to do if you have Problems For any increased pain, shortness of breath, bleeding, nausea or vomiting, chest pain, or any unexpected pr oblems, contact your Primary Care Provider. Call [employer] [facility] ([phone]) or report to the closest Emergency Room. Call 911 if necessary. 07/04/17 1700 <Electronically signed by Juan C Winston MD> Date Juan C Winston MD Cosigner Signature (If Indicated): Date CC: Anabella Núñez MD 04-Jul-2017 Brain/Head without Contrast Result: Comments: See Note; NOTES: [facility] Imaging Services [address] [place] [address] Brain/Head without Contrast MR#: [id number] Acct: [id number] Name: MAYRA GHOSH Rep #: [id number] : 1940 [facility] From: Darrel Lopez MD PCP: Anablela Núñez MD Status: DEP ER Study: Brain/Head without Contrast Date of Exam: 07/04/17 Exam# [id number] Ordering Dr: Juan C Winston MD STUDY [...] Anabella Núñez MD; Juan C Winston MD Field Crop Farmer: Signed 04-Jul-2017 Chest 1 View (Portable) Result: Comments: See Note; NOTES: [facility] Imaging Services [address] [place] [address] Chest 1 View (Portable) MR#: [id number] Acct: [id number] Name: MAYRA GHOSH Rep #: [id number] : 1940 [facility] From: Nadira Pedersen MD PCP: Anabella Núñez MD Status: REG ER Study: Chest 1 View (Portable) Date of Exam: 07/04/17 Exam# [id number] Ordering Dr: Juan C Winston MD STUDY: [...] Nadira Pedersen MD at 17:14 EDT Tel [phone], Service support , Fax CC: Anabella Núñez MD; Juan C Winston MD Field Crop Farmer: Signed 04-Jul-2017 Spine Cervical without Contras Result: Comments: See Note; NOTES: [facility] Imaging Services [address] [facility] [facility] [place] [address] Spine Cervical without Contras MR#: [id number] Acct: [id number] Name: MAYRA GHOSH Rep #: [id number] : 1940 [facility] From: Nadira Pedersen MD PCP: Anabella Núñez MD Status: REG ER Study: Spine Cervical without Contras Date of Exam: 07/04/17 Exam# [id number] Ordering Dr: Juan C Winston MD STUDY: [...] Nadira Pedersen MD at 17:19 EDT Tel [phone], Service support , Fa x [phone] CC: Anabella Núñez MD; Juan C Winston MD Field Crop Farmer: Signed 12-Jun-2017 Operative Report Result: Comments: See Note; NOTES: [facility] Medical Records Department [address] [place] [address] Operative Report 06/12/17 0804 MR#: [id number] Acct: [id number] Name: MAYRA GHOSH Rep #: [id number] : 1940 77 From: Pool Chávez MD PCP: Anabella Núñez MD Status: REG CLI Y Location: [place] [address] Report of Operation Date of Procedure: 06/12/17 [...] and Lateral Result: Comments: See Note; NOTES: [facility] Imaging Services [address] [place] [address] Chest PA and Lateral MR#: [id number] Acct: [id number] Name: MAYRA GHOSH Rep #: [id number] : 1940 M 77 From: Louis Sue MD PCP: Anabella Núñez MD Status: REG CLI Study: Chest PA and Lateral Date of Exam: 06/06/17 Exam# [id number] Ordering Dr: Delisa Gordon DO STUDY: X-RAY [...] Louis Sue MD at 13:58 EDT Tel [phone], Service support , CC: Anabella Núñez MD; Delisa Gordon DO Field Crop Farmer: Signed 14-Mar-2017 CTA Head W/WO Contrast Result: Comments: See Note; NOTES: [facility] Imaging Services [address] [place] [address] [address] CTA Head W/WO Contrast MR#: [id number] Acct: [id number] Name: MAYRA GHOSH Rep #: [id number] : 1940 M 77 From: Kalli Lowery MD PCP: Anabella Núñez MD Status: REG ER Study: CTA Head W/WO Contrast Date of Exam: 03/14/17 Exam# [id number] Ordering Dr: Gal Glasgow MD DHAVAL DY: CTA OF THE BRAIN REASON FOR EXAM: Male, 77 years old. DIZZINESS SINCE 8AM HX-HTN,RI,PACER,CABG,CHF RADIATION DOSAGE (If Supplied By Facility): CTDIvol [...] There is no demonstrated aneurysm of the jena of [place]. There is no demonstrated abnormality of the visuali zed brain. CT/CTA Head W/WO Contrast IMPRESSION: No evidence of significant stenosis or occlusion of the intracranial arteries. See above. Elect ronically Signed: Kalli Lowery MD at 17:56 EDT Tel , Service support , CC: Anabella Núñez MD; Gal Glasgow MD Field Crop Farmer: Signed 14-Mar-2017 CTA Neck W/WO Contrast Result: Comments: See Note; NOTES: [facility] Imaging Services [address] [place] [address] Verdana 4d CTA Neck W/WO Contrast MR#: [id number] Acct: [id number] Name: MAYRA GHOSH Rep #: [id number] : 1940 M 77 From: Kalli Lowery MD PCP: Anabella Núñez MD Status: REG ER Study: CTA Neck W/WO Contrast Date of Exam: 03/14/17 Exam# [id number] Ordering Dr: Gal Glasgow MD [facility] DY: CTA NECK WITH CONTRAST REASON FOR EXAM: Male, 77 years old. DIZZINESS SINCE 8AM HX-HTN,RI,PACER,CABG,CHF RADIATION DOSAGE (If Supplied By Facility): CTDIvol [...] CC: Anabella Núñez MD; Gal Glasgow MD Field Crop Farmer: Signed 14-Mar-2017 Chest PA and Lateral Result: Comments: See Note; NOTES: [facility] Imaging Services [address] [place] [address] [place] 4d Chest PA and Lateral MR#: [id number] Acct: [id number] Name: MAYRA GHOSH Rep #: [id number] : 1940 77 From: Kalli Lowery MD PCP: Anabella Núñez MD Status: REG ER Study: Chest PA and Lateral Date of Exam: 03/14/17 Exam# [id number] Ordering Dr: Gal Glasgow MD STUDY: X-RAY [...] EDT Tel , Service support , CC: Aanbella Núñez MD; Gal Glasgow MD Field Crop Farmer: Signed 02-Nov-2016 Chest PA and Lateral Result: Comments: See Note; NOTES: [facility] Imaging Services [address] [place] [address] Verdana 4d Chest PA and Lateral MR#: [id number] Acct: [id number] Name: MAYRA GHOSH Rep #: [id number] : 1940 M 76 From: Tyshawn Gayle DO PCP: Anabella Núñez MD Status: REG CLI Study: Chest PA and Lateral Date of Exam: 11/02/16 Exam# [id number] Ordering Dr: Amando Hu MD STUDY: X-R [...] Tyshawn Gayle DO at 12:16 EST Tel [phone], Service support [phone], CC: Anabella Núñez MD; Amando Hu MD Field Crop Farmer: Signed 08-Sep-2016 Kidney and Bladder Result: Comments: See Note; NOTES: [facility] Imaging Services [address] [place] [address] Verdana 4d Kidney and Bladder MR#: [id number] Acct: [id number] Name: MAYRA GHOSH Rep #: [id number] : 1940 76 From: Louis Sue MD PCP: Anabella Núñez MD Status: REG CLI Study: Kidney and Bladder Date of Exam: 09/08/16 Exam# [id number] Ordering Dr: Anabella Núñez MD STUDY: RENAL [...] Louis Sue MD at 15:05 EST Tel [phone], Service support [phone], CC: Anabella Núñez MD Field Crop Farmer: Signed 13-Sep-2015 Chest PA and Lateral Result: Comments: See Note; NOTES: [facility] Imaging Services [address] [place] [address] [address] 4d Chest PA and Lateral MR#: [id number] Acct: [id number] Name: Lula GHOSH Rep #: [id number] : 1940 M 75 From: Louis Sue MD PCP: Anabella Núñez MD Status: REG CLI Study: Chest PA and Lateral Date of Exam: 09/13/15 Exam# [id number] Ordering Dr: Daria Lowe STUDY: X-RAY CHEST [...] Louis Sue MD at 12:55 EST Tel [phone], Service support [phone], RAD/Chest PA and Lateral IMPRESSION: No acute abnorma lity is seen. Cardiomegaly. Electronically Signed: Louis Sue MD at 12:55 EST Tel [phone], Service support [phone], CC: Daria Lowe; Anabella Núñez MD Field Crop Farmer: Signed 13-Sep-2015 Spirometry (01523) Comments: normal Result: 23-Apr-2014 Echocardiogram Complete Result: Comments: See Note; NOTES: [facility] Cardiovascular Services [address] [place] [address] Echo Complete 04/23/14 0954 MR#: [id number] Acct: [id number] Name: CORNELIA GHOSH Екатерина Rep #: [id number] : 1940 74 From: Amando Hu MD Attending Dr: Amando uH MD Status: REG CLI Ordering Dr: Amando Hu MD Date: 04/23/14 Location: [facility] Sex: M C Admitted: Procedure This [...] Mid- inferoseptal : Akinetic. Mid-anteroseptal : Akinetic. [place] : Hypokinetic. Right Ventricle Normal RV size. [...] max P.7 mmHg TR max P.4 m mHg E/E' med: 36.0 Interpretation Summary The study [...] insufficiency. Aortic sclerosis, no stenosis. Trivial pulmonic erji ve insufficiency. Right ventricular systolic pressure estimated to be 52 mmHg. Transmitral diastolic flow velocities suggest diastolic dysfunction ( pseudonormal pattern). ICD or pacer leads identifi ed within the right atrium ICD or pacer leads identified within the right ventricle. Ordering Physician: Amando Hu Referring Physician: Anabella Núñez M.D. Performed By: Rajwinder Aleman, FAWN : Anabella Núñez MD; Molly Hu MD Date Dictated: 04/23/1454 Date Transcribed: 04/23/142135 Field Crop Farmer: Signed 21-Jan-2014 Chest PA and Lateral Result: Comments: See Note; NOTES: [facility] Imaging Services [address] [place] [address] 12068 Radiology Report MR#: [id number] Acct: [id number] Name: MAYRA GHOSH Rep #: [id number] : 1940 M 73 From: Louis Sue MD PCP: Anabella Núñez MD Status: REG CLI Study: Chest PA and Lateral Date of Exam: 01/21/14 Exam# [id number] Ordering Dr: Anabella Núñez MD STUDY: X [...] M.D. 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 Comments: 50 years ago Status: Active Tobacco use: Former smoker. Status: Inactive Smoking Status Name Dates Details Former smoker Vital Signs Date Test Result Details 21-Nna-619211:45 Temperature 97.6 f Comments: Method: Temporal Pulse [...] 0.00 cm Results Date Description Value Details 29-Dlo-777184:00 Basic Metabolic Profile (BMP) Comments: REDRAW. PREVIOUS SPECIMEN REJECTED DUE TOHEMOLYSIS. 10/16/181430 Cinthia Mcneal.'TROP' Serial specimen #1, #2, #3, or #4: 1[facility] Mfmtldxpdd8376 [place] [place], [place], [address] GAP 10 (Normal) Range: 5-15 CO2 26.0 [...] A.D.A. criteria.Please note revised GLUCOSE reference range yvqbnkcoj53/02/2018. 06-Gjd-633301:00 Magnesium Comments: REDRAW. PREVIOUS SPECIMEN REJECTED DUE TOHEMOLYSIS. 10/16/181430 Cinthia Miller'TROP' Serial specimen #1, #2, #3, or #4: [address] [place] [address] [address]am[address]kl[address] [place], [place], [address](424) MG 2.1 mg/dL (Normal) Range: 1.6-2.6 52-Kce-634670:00 Troponin-I Comments: REDRAW. PREVIOUS SPECIMEN REJECTED DUE TOHEMOLYSIS. 10/16/18 1431 Cinthia Mcneal.'TROP' Serial specimen #1, #2, #3, or #4: [address] [place] [address] Ouloyazosg4527 [address] [place], [place], [address](291) TROPONIN-I 0.022 ng/mL (Normal) Comments: TROPONIN-I EXPECTED VALUES <0.045 Negative 0.045 - 0.590 Consistent with Cardiac Damage > OR = 0.600 Critical Value Not every elevated troponin is indicative of RI. T hesevalues should be used with clinical judgement in examiningthe patient's clinical picture for diagnosis. To establisha diagnosis of RI versus myocardial injury, there must be ademonstrated rise and/ or fall in the troponin values, inaddition to ischemic symptoms, EKG changes, new regionalwall motion abnormality, and/or angiographical evidence. PLEASE NOTE: REFERENCE RANGES EDITED 03/11/1816-Oct-201802-Lqi-072365:00 CBC W/Diff, Automated Comments: [facility] Zyiksmndks[address] [place], [place], [address](273) Absolute Lymph 1.37 {X10_3/ul} (Normal) Range: 0.83-4.51 [...] 4.4-11.0 :13 Basic Metabolic Profile (BMP) Comments: [facility] Elzkpidoas80[address] [facility]. [place], [place], [address] GAP 12 (Normal) Range: 5-15 CO2 22.0 [...] A.D.A. criteria.Please note revised GLUCOSE reference range vrcycbfmm91/02/2018. 30-Sep-20187:13 CBC W/Diff, Automated Comments: [facility] Ipahusabes[address] [place], [address] Absolute Lymph 1.40 {X10_3/ul} (Normal) [...] K/mm3 (Normal) Range: 4.4-11.0 :13 Troponin-I Comments: [facility] Ympszzjskx67[address] [place], [address] TROPONIN-I 0.030 ng/mL (Normal) Comments: TROPONIN-I EXPECTED VALUES <0.045 Negative 0.045 - 0.590 Consistent with Cardiac Damage > OR = 0.600 Critical Value Not every elevated troponin is indicative of RI. T hesevalues should be used with clinical judgement in examiningthe patient's clinical picture for diagnosis. To establisha diagnosis of RI versus myocardial injury, there must be ademonstrated rise and/ or fall in the troponin values, inaddition to ischemic symptoms, EKG changes, new regionalwall motion abnormality, and/or angiographical evidence. PLEASE NOTE: REFERENCE RANGES EDITED 03/11/1830-Sep-20187:00 Urinalysis, Complete Comments: Order Date: 09/30/18Has pt arrived? YHow was Urine Obtained? ROUTE SALESPERSON TO SPECIFYWOhio[facility] Qpqxdyavbl9244 [facility] [address]. [place], [place], [address] MUCUS, URINE 0 SEEN {/hpf} (Normal) BACTERIA [...] (Normal) CLARITY Clear (Normal) COLOR Yellow (Normal) 08-Vug-45494:40 CBC W/Diff, Automated Comments: [facility] Qbtvvakqdp7705 [facility] [address]. [place], [place], [address] Absolute Lymph 1.74 {X10_3/ul} (Normal) Range: 0.83-4.51 [...] 4.6-6.2 WBC 7.6 K/mm3 (Normal) Range: 4.4-11.0 58-Xws-91081:40 Comprehensive Metabolic Profil Comments: [facility] Fwiuafvoul3832 [place], [place], [address] GAP 13 (Normal) Range: 5-15 CO2 27.0 [...] A.D.A. criteria.Please note revised GLUCOSE reference range irdwykbrq47/02/2018. 55-Tms-13479:40 Lipase Comments: [facility] [address] [place], [place], [address] LIPASE 114 U/L (Normal) Range: 73-393 98-Mir-995881:18 BNP,B-Type NATRIURETIC PEPTIDE Comments: [facility] [address] [place], [place], [address] B-TYPE JUSTIN PEP 734.1 pg/mL (Abnormal) Range: 0-100 42-Tmq-242773:18 CBC-Complete Blood Cnt No Diff Comments: [facility] [address] [place], [place], [address] MPV 10.4 fL (Normal) Range: 6.2-12.0 PLT [...] 4.6-6.2 WBC 7.2 K/mm3 (Normal) Range: 4.4-11.0 91-Kwu-086595:18 Comprehensive Metabolic Profil Comments: 'TROP' Serial specimen #1, #2, #3, or #4: [address] [place] [address] [address]kxple[address] [place], [address] GAP 10 (Normal) Range: 5-15 CO2 29.0 [...] A.D.A. criteria.Please note revised GLUCOSE reference range srsnswext96/11/2017. 89-Xmn-993971:18 KEPPRA (LEVETIRACETAM) Comments: [facility] (refer to report for specific site)refer to report for address and phone number TANNER Comments: TEST RESULT LIMITSLevetiracetam (Keppra), Nishitiracetam, S 29.6 ug/mL 10.0 - 40.0 TESTING PERFO (Normal) [facility] AT [facility]. ORIGINAL REPORT ON FILE IN LAB CONTAINS ADDITIONAL TEST SITE INFORMATION. 08-Oza-367088:18 Thyroid Stim Hormone (TSH) Comments: 'TROP' Serial specimen #1, #2, #3, or #4: [address] [place] [address] [place], [address] TSH 2.73 {uIU/mL} (Normal) Range: 0.358-3.74 18-Pld-950224:18 Troponin-I Comments: 'TROP' Serial specimen #1, #2, #3, or #4: [address] [place] [address] [place], [place], [address] TROPONIN-I 0.027 ng/mL (Normal) Comments: TROPONIN-I EXPECTED VALUES <0.045 Negative 0.045 - 0.590 Consistent with Cardiac Damage > OR = 0.600 Critical Value Not every elevated troponin is indicative of RI. T hesevalues should be used with clinical judgement in examiningthe patient's clinical picture for diagnosis. To establisha diagnosis of RI versus myocardial injury, there must be ademonstrated rise and/ or fall in the troponin values, inaddition to ischemic symptoms, EKG changes, new regionalwall motion abnormality, and/or angiographical evidence. PLEASE NOTE: REFERENCE RANGES EDITED 03/11/1810-Sep-201806-Yoq-016855:59 Metabolic Panel, Basic Comments: PATIENT NOT FASTINGPERFORMED BY: [facility] Gqkmva7523 [place] [place] [id number] (72512) Calcium 9.0 mg/dL (Normal) Range: 8.6-10.2 Carbon [...] 8-27 Glucose 177 mg/dL (Abnormal) Range: 65-99 17-Eoh-417041:06 Lipid Profile Comments: [facility] Lgkmmauayx25[address] [facility] [address] [place], [place], [address] VLDL 20 mg/dL (Normal) Range: 5-40 LDL [...] 200-240 mg/dL Borderline >240 mg/dL High Risk 86-Puy-865548:06 Liver Profile Comments: [facility] [address] [place], [place], [address] D BILI 0.35 mg/dL (Abnormal) Range: 0.00-0.30 T BILI 0.90 mg/dL (Normal) Range: 0.20-1.00 ALT 26 U/L (Normal) Range: 16-61 ALK P 158 U/L (Abnormal) Range: 45-117 AST 27 U/L (Normal) Range: 15-37 GLOB 4.8 g/dL (Abnormal) Range: 2.2-4.2 ALB 3.4 g/dL (Normal) Range: 3.2-5.0 T PROT 8.2 g/dL (Normal) Range: 6.4-8.2 :25 Tanner (53350) Comments: PATIENT WAS FASTINGPERFORMED BY: Traveler | VIP [facility] [id number] BY: [employer] [id number] Levetiracetam, S 41.3 ug/mL (Abnormal) Range: 10.0-40.0 :25 METABOLIC PANEL, BASIC Comments: PATIENT WAS FASTINGPERFORMED BY: ELIKE70 [facility] [id number] BY: [employer] [id number] (72440) Calcium 9.0 mg/dL (Normal) Range: 8.6-10.2 Carbon [...] Count, Citrated Comments: PATIENT WAS FASTINGPERFORMED BY: Traveler | VIP [facility] [id number] BY: [place] [address] [facility] [id number] (08099) Plt Count, Citrated Bld 119 {X10E3/uL} (Abnormal) Range: 150-379 :54 HGB A1C (57596) Comments: PATIENT NOT FASTINGPERFORMED BY: [place] [id number] [facility] [id number] Hemoglobin A1c 9.0 % (Abnormal) Range: 4.8-5.6 Comments: . Prediabetes: 5.7 - 6.4 Diabetes: >6.4 Glycemic control for adults with diabetes: <7.0 :54 T4, FREE (THYROXINE) (99871) Comments: PATIENT NOT FASTINGPERFORMED BY: [place] 8432370 [facility] [id number] T4,Free(Direct) 1.15 ng/dL (Normal) Range: 0.82-1.77 41-Ymb-765801:54 TSH (98406) Comments: PATIENT NOT FASTINGPERFORMED BY: [place] 8432370 [facility] [id number]; appt 08/19 TSH 2.130 {uIU/mL} (Normal) Range: 0.450-4.500 11-Hii-666899:20 Rapid Strep Test, Office (93142) Rapid Strep Test, Office Negative (Normal) 39-Rnv-646772:46 Metabolic Panel, Basic Comments: PATIENT NOT FASTINGPERFORMED BY: LabBrianna Ville 4257470 [facility] [id number]; fu today DB (37096) Calcium 9.1 mg/dL (Normal) Range: 8.6-10.2 Carbon [...] 8-27 Glucose 227 mg/dL (Abnormal) Range: 65-99 8-Rux-352728:53 Basic Metabolic Profile (BMP) Comments: [facility] Ibpdafqrku[address] [place], [place], [address] GAP 12 (Normal) Range: 5-15 CO2 27.0 [...] A.D.A. criteria.Please note revised GLUCOSE reference range lbotfmdfs86/02/2018. 4-Zdn-874868:53 Magnesium Comments: [facility] [address]qmmtjgwg6[address] [place], [place], [address] MG 1.8 mg/dL (Normal) Range: 1.6-2.6 27-Ihq-423767:10 Basic Metabolic Panel (8) Comments: PATIENT NOT FASTINGPERFORMED BY: CB [facility] Jbufdz3166 [facility] [id number] BY: [facility] [address] [id number] Calcium 9.3 mg/dL (Normal) Range: 8.6-10.2 Carbon [...] 8-27 Glucose 325 mg/dL (Abnormal) Range: 65-99 73-Tlq-953312:10 Levetiracetam (Keppra), S Comments: PATIENT NOT FASTINGPERFORMED BY: Traveler | VIP [facility] [id number] BY: [employer] [id number] Levetiracetam, S 66.3 ug/mL (Abnormal) Range: 10.0-40.0 :10 Platelet Count on Comments: PATIENT NOT FASTINGPERFORMED BY: Traveler | VIP [facility] [id number] BY: [employer] [id number] Citrated Bld Plt Count, Citrated 85 {X10E3/uL} Range: 150-379 Bld (Abnormal) Comments: Platelet count verified by examination of peripheral blood smear. FDP, Plasma 5 ug/mL (Abnormal) Comments: PATIENT NOT FASTINGPERFORMED BY: [employer] Inlzyu5047 [facility] [id number] BY: [employer] [id number] :49 LDH 220 [iU]/L (Normal) Comments: PATIENT NOT FASTINGPERFORMED BY: [employer] Yciudh7606 [facility] [id number] BY: [address] [id number] :49 Range: 121-224 5-Elw-177858:49 Methylmalonic Acid, Serum Comments: PATIENT NOT FASTINGPERFORMED BY: [place] 8432370 [facility] [id number] BY: [address] [id number] Disclaimer: SPRCS (Normal) Comments: This test was developed and its performance characteristicsdetermined by [employer]. It has not been cleared or approvedby the Food and Drug Administration. Methylmalonic Acid, Serum 195 nmol/L (Normal) Range: 0-378 2-Cyt-714193:49 Platelet Count on Comments: PATIENT NOT FASTINGPERFORMED BY: [place] 8432370 [facility] [id number] BY: [address] [id number] Citrated Bld Plt Count, Citrated 108 {X10E3/uL} Range: 150-379 Bld (Abnormal) Vitamin B12 780 pg/mL (Normal) Comments: PATIENT NOT FASTINGPERFORMED BY: [address] [id number] BY: [address] [id number] :49 Range: 232-1245 6-Kph-101697:49 Renal function Panel Comments: standing order q 3 months; PATIENT NOT FASTINGPERFORMED BY: [place] 8432370 [facility] [id number] BY: [address] [id number] (13547) Albumin 4.3 g/dL (Normal) Range: 3.5-4.8 Phosphorus [...] 8-27 Glucose 244 mg/dL (Abnormal) Range: 65-99 43-Uwo-922766:48 Urinalysis, Office (70753) UA - LEUKOCYTE ESTERASE Trace (Normal) UA - NITRITE Negative (Normal) URINE UROBILINGN CASPER TIMED 2 mg/dL (Normal) UA - PROTEIN Trace mg/dL (Normal) UA - PH 6 (Abnormal) UA - BLOOD Negative (Normal) UA - SPECIFIC GRAVITY 1.020 (Normal) UA - KETONES Negative mg/dL (Normal) UA - BILIRUBIN Negative (Normal) UA - GLUCOSE Negative (Normal) 05-Bom-754887:47 CBC W/Diff, Automated Comments: Order Date: 04/25/18Order Info: [id number] - CBCDWOhioHealth [facility]in [facility] Xzxjqgkouo3588 [place], [address] Absolute Lymph 1.07 {X10_3/ul} (Normal) [...] 4.6-6.2 WBC 7.9 K/mm3 (Normal) Range: 4.4-11.0 97-Lqr-345221:47 Renal Profile Comments: Order Date: 04/25/18Order Info: 0790- 1 - RENALOrder Info: [id number] - TROPOrder Info: [id number] - MGOrder Info: 3016-3 - TSHOrder Info: 3024-7 - T4F'TROP' Serial specimen #1, #2, #3, or #4: [facility] Ybtcwumsgl9029 [place], [place], [address] CO2 27.0 mmol/L (Normal) Range: 21.0-32.0 CL [...] A.D.A. criteria.Please note revised GLUCOSE reference range czzqnaerc65/02/2018. 30-Ovd-513834:47 Thyroid Stim Hormone (TSH) Comments: Order Date: 04/25/18Order Info: [id number] - RENALOrder Info: [id number] - TROPOrder Info: [id number] - MGOrder Info: 6-3 - TSHOrder Info: 3024-7 - T4F'TROP' Serial specimen #1, #2, #3, or #4: [address] [place] [address] Gpklsmtlpz3527 [facility]. [place], [place], [address] TSH 2.08 {uIU/mL} (Normal) Range: 0.358-3.74 :47 Troponin-I Comments: Order Date: 04/25/18Order Info: 0790- - RENALOrder Info: [id number] - TROPOrder Info: [id number] - MGOrder Info: 6-3 - TSHOrder Info: 3023-7 - T4F'TROP' Serial specimen #1, #2, #3, or #4: [address] [place] [address] [place], [place], [address] TROPONIN-I < 0.015 ng/mL (Normal) Comments: TROPONIN-I EXPECTED VALUES <0.045 Negative 0.045 - 0.590 Consistent with Cardiac Damage > OR = 0.600 Critical Value Not every elevated troponin is indicative of RI. T hesevalues should be used with clinical judgement in examiningthe patient's clinical picture for diagnosis. To establisha diagnosis of RI versus myocardial injury, there must be ademonstrated rise and/ or fall in the troponin values, inaddition to ischemic symptoms, EKG changes, new regionalwall motion abnormality, and/or angiographical evidence. PLEASE NOTE: REFERENCE RANGES EDITED 18:47 T4, FREE (THYROXINE) (72580) Comments: Order Date: 04/25/18Order Info: 0790-1 - RENALOrder Info: 41228-0 - TROPOrder Info: [id number] - MGOrder Info: 301-3 - TSHOrder Info: 302-7 - T4F'TROP' Serial specimen #1, #2, #3, or #4: [address] [place] [address] [address] [place], [address] T4 FREE DIRECT 1.08 ng/dL (Normal) Range: 0.76-1.46 38-Hjg-071889:47 Magnesium (31107) Comments: Order Date: 04/25/18Order Info: 0790- - RENALOrder Info: [id number] - TROPOrder Info: [id number] - MGOrder Info: 30103-31 - TSHOrder Info: 3027 - T4F'TROP' Serial specimen #1, #2, #3, or #4: [address] [place] [address] [address] [place], [address] MG 1.9 mg/dL (Normal) Range: 1.6-2.6 27-Olf-645265:00 CBC WITH MANUAL DIFF (89440) Comments: standing order q 3 months; PATIENT NOT FASTINGPERFORMED BY: [facility] Bgkhjt5127 [facility] [id number] Immature Grans (Abs) 0.0 {x10E3/uL} (Normal) Range: [...] 4.14-5.80 WBC 9.0 {x10E3/uL} (Normal) Range: 3.4-10.8 02-Pvm-029086:00 MAGNESIUM (35156) Comments: standing order q 3 months; PATIENT NOT FASTINGPERFORMED BY: Meddik6370 [place] [id number] Magnesium 1.7 mg/dL (Normal) Range: 1.6-2.3 76-Lnw-692681:00 PARATHORMONE (51102) Comments: standing order q 3 months; PATIENT NOT FASTINGPERFORMED BY: Meddik[address] [place] [id number] PTH, Intact 73 pg/mL (Abnormal) Range: 15-65 46-Wtk-176057:00 Renal function Panel (15850) Comments: standing order q 3 months; PATIENT NOT FASTINGPERFORMED BY: Meddik6[address] [place] [id number] Albumin 4.1 g/dL (Normal) Range: 3.5-4.8 Phosphorus [...] 8-27 Glucose 276 mg/dL (Abnormal) Range: 65-99 74-Mvc-554295:29 Renal function Panel (24992) Comments: PATIENT WAS FASTINGPERFORMED BY: [facility] Szprxa6168 [facility] [id number]; fu 04-25 Albumin 4.4 g/dL (Normal) Range: [...] 8-27 Glucose 198 mg/dL (Abnormal) Range: 65-99 4-Hkf-298768:18 HgA1C , Office (39722) HgA1C , Office 7.0 % (Normal) Range: 4.6 - 7.1 04-Hwp-58849:46 Basic Metabolic Profile Comments: Comments: Renal InsufficiencyComments: [facility] InsufficiencyWOhioHealth [facility]in [facility] Srmjcwunts55[address] [place], [address] (MPF) GAP 13 (Normal) Range: 5-15 CO2 24.0 [...] A.D.A. criteria.Please note revised GLUCOSE reference range hdchhbgop15/02/2018. 66-Hlk-59877:46 Lipid Profile Comments: Comments: Renal InsufficiencyComments: Renal InsufficiencySt. [facility] Yfzoimaxja70[address] [place], [place], [address] VLDL 41 mg/dL (Abnormal) Range: 5-40 LDL [...] Liver Profile Comments: Comments: Renal InsufficiencyComments: Renal InsufficiencySt. [facility]'S Hospital [address]jjzjrwwz75[address] [place], [place], [address] D BILI 0.16 mg/dL (Normal) Range: 0.00-0.30 T BILI 0.50 mg/dL (Normal) Range: 0.20-1.00 ALT 25 U/L (Normal) Range: 16-61 ALK P 104 U/L (Normal) Range: 45-117 AST 29 U/L (Normal) Range: 15-37 GLOB 4.0 g/dL (Normal) Range: 2.2-4.2 ALB 3.5 g/dL (Normal) Range: 3.2-5.0 T PROT 7.5 g/dL (Normal) Range: 6.4-8.2 1-Eas-165102:37 Magnesium (74527) Comments: PATIENT NOT FASTINGPERFORMED BY: LabCoSt. Lawrence Rehabilitation CenterKnknhg4472 [facility] [id number] Magnesium 2.1 mg/dL (Normal) Range: 1.6-2.3 1-Ogg-419645:37 Metabolic Panel, Basic (15608) Comments: PATIENT NOT FASTINGPERFORMED BY: LabCoSt. Lawrence Rehabilitation CenterOfubar0499 [facility] [id number] Calcium 9.0 mg/dL (Normal) Range: 8.6-10.2 Carbon [...] 8-27 Glucose 284 mg/dL (Abnormal) Range: 65-99 07-Wls-187942:57 Bedside Glucose Comments: [facility] LaboratoryPoint of Arry[address] [place] [address] BEDSIDE GLU 381 mg/dL (Abnormal) Range: 70-110 Comments: MANAGEMENT OF PATIENT CARE PER NURSING PROTOCOL 31-Zzi-920426:50 Acetone Serum Comments: [facility] [address]whfdflxzn[address] [place], [address] ACETONE SERUM NEGATIVE (Normal) 85-Ioj-049525:50 Basic Metabolic Profile (BMP) Comments: 'TROP' Serial specimen #1, #2, #3, or #4: 1WOhioHealth [facility]in [facility] [address]xzoyqwr[address] [place], [address] GAP 9 (Normal) Range: 5-15 CO2 30.0 [...] A.D.A. criteria.Please note revised GLUCOSE reference range hrdhcrxir36/02/2018. 20-Xcj-648925:50 BNP,B-Type NATRIURETIC PEPTIDE Comments: [facility] F[address]cfkvjra[address] [place], [place], [address] B-TYPE JUSTIN PEP 386.1 pg/mL (Abnormal) Range: 0-100 61-Syq-445136:50 CBC W/Diff, Automated Comments: [facility] [address]wzjqf[address] [place], [place], [address] Absolute Lymph 1.11 {X10_3/ul} (Normal) Range: 0.83-4.51 [...] 4.6-6.2 WBC 9.7 K/mm3 (Normal) Range: 4.4-11.0 47-Ulo-859757:50 Troponin-I Comments: 'TROP' Serial specimen #1, #2, #3, or #4: [address] [place] [address] Sfgtghiwwr4051 [facility] [place], [address] TROPONIN-I 0.03 ng/mL (Normal) Comments: TROPONIN-I EXPECTED VALUES <0.05 NEGATIVE 0.06 - 0.59 AT RISK OF RI > OR = 0.60 SUGGEST RI 62-Cwt-738128:51 Renal Profile Comments: Order Date: 01/18/18Order Info: 0790- 1 - RENALOrder Info: [id number] - TROP'TROP' Serial specimen #1, #2, #3, or #4: [address] [place] [address] Pkckmrpjdj8707 [facility]. [place], [place], [address]33 [phone] CO2 29.0 mmol/L (Normal) Range: 21.0-32.0 CL [...] A.D.A. criteria.Please note revised GLUCOSE reference range sxajvflur99/02/2018. 61-Dtl-499529:51 Troponin-I Comments: Order Date: 01/18/18Order Info: [id number] - RENALOrder Info: [id number] - TROP'TROP' Serial specimen #1, #2, #3, or #4: 1WOhio[facility] Lpxmyukzax5392 [facility] [place], [phone] TROPONIN-I 0.02 ng/mL (Normal) Comments: TROPONIN-I EXPECTED VALUES <0.05 NEGATIVE 0.06 - 0.59 AT RISK OF RI > OR = 0.60 SUGGEST RI 95-Ftr-734603:16 HgA1C , Office (22741) HgA1C , Office 7.7 % (Abnormal) Range: 4.6 - 7.1 09-Jxk-080821:47 Basic Metabolic Profile (BMP) Comments: CALL RESULTS TO [phone]. Rita'S Hospital Gvrdtracwo[address] [place], [address] GAP 8 (Normal) Range: 5-15 [...] 200 mg/dLsuggests DIABETES MELLITUS per A.D.A. criteria. 45-Iuj-132019:47 BNP,B-Type NATRIURETIC PEPTIDE Comments: CALL RESULTS TO [phone]. Rita'S Hospital [address]faqslkxkp[address] [place], [address] B-TYPE JUSTIN PEP 580.2 pg/mL (Abnormal) Range: 0-100 10-Wrj-968660:47 CBC W/Diff, Automated Comments: CALL RESULTS TO [phone]. Rita'S Hospital Rffuzplzog7[address] [place], [address] Absolute Lymph 0.67 {X10_3/ul} (Abnormal) [...] 4.6-6.2 WBC 5.6 K/mm3 (Normal) Range: 4.4-11.0 66-Ebt-755784:47 Thyroid Stim Hormone (TSH) Comments: CALL RESULTS TO [phone]. Rita'S Hospital Uuvqzdazue4058 [facility] [place], [place], [address] TSH 2.08 {uIU/mL} (Normal) Range: 0.358-3.74 72-Sxb-14246:51 CBC, Platelets & Auto Diff Comments: PATIENT WAS FASTINGPERFORMED BY: [facility] Zqrxlm2001 [facility] [id number] (45297) Immature Grans (Abs) 0.0 {x10E3/uL} (Normal) Range: [...] 4.14-5.80 WBC 8.6 {x10E3/uL} (Normal) Range: 3.4-10.8 78-Uwj-87106:51 Metabolic Panel, Comprehensive Comments: PATIENT WAS FASTINGPERFORMED BY: LabCoSt. Lawrence Rehabilitation CenterPyxffh2461 [facility] [id number] (59921) ALT (SGPT) 16 [iU]/L (Normal) Range: 0-44 [...] 8-27 Glucose 122 mg/dL (Abnormal) Range: 65-99 58-Lsq-14815:51 TSH (69232) Comments: PATIENT WAS FASTINGPERFORMED BY: [facility] Parallel TechnologiesSt. [facility] [id number] [facility] [id number] TSH 5.070 {uIU/mL} (Abnormal) Range: 0.450-4.500 58-Com-11618:51 CALCIFIDIOL (97629) VIT D 25 Comments: PATIENT WAS FASTINGPERFORMED BY: [facility] [id number] [facility] [id number] Vitamin D, 25-Hydroxy 27.8 ng/mL (Abnormal) Range: 30.0-100.0 Comments: Vitamin D deficiency has been defined by the [place] of[employer] and an Endocrine Society practice guideline as alevel of serum 25-OH vitamin D less than 20 ng/mL (1,2).The Endocrine Society went on to further define vitamin Dinsufficiency as a level between 21 and 29 ng/mL (2).1. IOM ([place] [employer]). 2010. Dietary reference intakes for calcium and D. [place]: The National Academies Press.2. Yanna MF, Maral CALDERON, Xander EDGAR, et al. Evaluation, treatment, and prevention of vitamin D deficiency: an Endocrine Society clinical practice guideline. JCEM. 2010; 96(7):1911-30. 21-Vev-48652:51 Magnesium (37893) Comments: PATIENT WAS FASTINGPERFORMED BY: [facility]CoUN[facility] HospitalCoaxip7502 [facility] [id number] Magnesium 1.9 mg/dL (Normal) Range: 1.6-2.3 4-Vug-088756:43 HgA1C , Office (89858) HgA1C , Office 7.3 % (Abnormal) Range: 4.6 - 7.1 :27 MICROALBUMIN: CREATININE Comments: PATIENT NOT FASTINGPERFORMED BY: [facility] [id number] Information: NURSE DRAW RATIO (20319) AND (54858) Microalb/Creat Ratio 89.4 {mg/g_creat} (Abnormal) Range: 0.0-30.0 Microalbumin, Urine 142.2 ug/mL (Normal) Creatinine, Urine 159.1 mg/dL (Normal) :27 PARATHORMONE (76379) Comments: PATIENT NOT FASTINGPERFORMED BY: [facility]John [facility] [facility] [id number] PTH, Intact 53 pg/mL (Normal) Range: 15-65 87-Lbk-022807:15 TSH (36543) Comments: PATIENT NOT FASTINGPERFORMED BY: [facility]John [facility]6[address] [facility] [id number] TSH 4.310 {uIU/mL} (Normal) Range: 0.450-4.500 13-Gmm-640889:15 METABOLIC PANEL, COMPREHENSIVE Comments: PATIENT NOT FASTINGPERFORMED BY: [facility]John [facility] [id number] (86261) ALT (SGPT) 17 [iU]/L (Normal) Range: 0-44 [...] Glucose, Serum 231 mg/dL (Abnormal) Range: 65-99 05-Dhg-644247:15 CBC with auto diff (47631) Comments: PATIENT NOT FASTINGPERFORMED BY: LabCoSt. Lawrence Rehabilitation CenterEhsvca8615 [facility] [id number] Immature Grans (Abs) 0.0 {x10E3/uL} (Normal) Range: [...] 4.14-5.80 WBC 7.7 {x10E3/uL} (Normal) Range: 3.4-10.8 88-Bzm-290105:15 CALCIFIDIOL (29219) VIT D 25 Comments: PATIENT NOT FASTINGPERFORMED BY: [facility] Rggtpl5366 [facility] [id number] Vitamin D, 25-Hydroxy 28.8 ng/mL (Abnormal) Range: 30.0-100.0 Comments: Vitamin D deficiency has been defined by the Webster ofMedicine and an Endocrine Society practice guideline as alevel of serum 25-OH vitamin D less than 20 ng/mL (1,2).The Endocrine Society went on to further define vitamin Dinsufficiency as a level between 21 and 29 ng/mL (2).1. IOM (Webster of Medicine). 2010. Dietary reference intakes for calcium and D. [place]: The National Academies Press.2. Yanna MF, Maral NC, Xander EDGAR, et al. Evaluation, treatment, and prevention of vitamin D deficiency: an Endocrine Society clinical practice guideline. JCEM. 2010; 96(7):1911-30. 11-Xtk-832222:34 Blood Glucose , Office (46899) Blood Glucose , Office 221 (Normal) 14-Gwy-363130:34 HgA1C , Office (23040) HgA1C , Office 6.3 % (Normal) Range: 4.6 - 7.1 8-Ciw-350040:10 CBC W/Diff, Automated Comments: [facility] Civdzcsmbm[address] [place], [address] Absolute Lymph 1.60 {X10_3/ul} (Normal) Range: 0.83-4.51 [...] 4.6-6.2 WBC 7.5 K/mm3 (Normal) Range: 4.4-11.0 0-Jtl-230609:10 Comprehensive Metabolic Profil Comments: [facility] Negfixmtgn[address] [place], [address] GAP 8 (Normal) Range: 5-15 CO2 29.0 [...] 200 mg/dLsuggests DIABETES MELLITUS per A.D.A. criteria. 5-Yav-653955:10 Prothrombin Time w/INR Comments: [facility] Qceuqjttem[address] [place], [address] INR 1.0 (Normal) PROTIME 13.1 s (Normal) Range: 11.7-14.9 7-Baw-340031:09 Bedside Glucose Comments: [facility] LaboratoryPoint of Qxoo[address] [place], [place] [address] BEDSIDE GLU 249 mg/dL (Abnormal) Range: 70-110 Comments: MANAGEMENT OF PATIENT CARE PER NURSING PROTOCOL 84-Vtq-83524:55 Magnesium (32791) Comments: PATIENT WAS FASTINGPERFORMED BY: BN [facility] [address] [id number] BY: CB [facility] Ivktkh4599 [facility] [id number] Magnesium, Serum 2.1 mg/dL (Normal) Range: 1.6-2.3 :55 METABOLIC PANEL, Comments: PATIENT WAS FASTINGPERFORMED BY: [employer] [id number] BY: [facility]6[address] [facility] [id number] COMPREHENSIVE (37340) ALT (SGPT) 13 [iU]/L (Normal) Range: 0-44 [...] BY NMR Comments: PATIENT WAS FASTINGPERFORMED BY: [employer] [id number] BY: [facility]6[address] [facility] [id number] (53095) LP-IR Score <25 (Normal) Comments: INSULIN RESISTANCE MARKER <--Insulin Sensitive Insulin Resistant--> Percentile in Reference PopulationInsulin Resistance ScoreLP-IR Score Low 25th 50th 75th High <27 27 45 63 >63LP-IR Score is inaccurate if patient is non-fasting. .The LP-IR score is a laboratory developed i [facility] that has beenassociated with insulin resistance and [...] 1600 - 2000 Very High > 2000 54-Atj-20794:55 CALCIFIDIOL (66402) VIT D Comments: PATIENT WAS FASTINGPERFORMED BY: [facility]14[address] [facility] [id number] BY: [facility]6[address] [facility] [id number] 25 Vitamin D, 25-Hydroxy 35.2 ng/mL (Normal) Range: 30.0-100.0 Comments: Vitamin D deficiency has been defined by the Webster ofMedicine and an Endocrine Society practice guideline as alevel of serum 25-OH vitamin D less than 20 ng/mL (1,2).The Endocrine Society went on to further define vitamin Dinsufficiency as a level between 21 and 29 ng/mL (2).1. IOM (Webster of Medicine). 2010. Dietary reference intakes for calcium and D. [place]: The National Academies Press.2. Yanna MF, Maral NC, Xander EDGAR, et al. Evaluation, treatment, and prevention of vitamin D deficiency: an Endocrine Society clinical practice guideline. JCEM. 2010; 96(7):1911-30. 98-Tik-14910:55 PSA (Prostate Specific Comments: PATIENT WAS FASTINGPERFORMED BY: [employer] [id number] BY: [employer] Cspnrf9954 [facility] [id number] Antigen), Screening (01120) Prostate Specific Ag, 1.2 ng/mL (Normal) Range: 0.0-4.0 Serum Comments: [employer]IA methodology. .According to the Micronesian Urological Association, Serum PSA shoulddecrease and remain at undetectable levels after radicalprostatectomy. The AUA defines biochemical recurrence as an initialPSA value 0.2 ng/mL or greater followed by a subsequent confirmatoryPSA value 0.2 ng/mL or greater.Values obtained with d ifferent assay methods or kits cannot be usedinterchangeably. Results cannot be interpreted as absolute evidenceof the presence or absence of malignant disease. 24-Snp-944070:38 Blood Glucose , Office (99240) Blood Glucose , Office 160 (Normal) 31-Fsn-885630:00 CBC WITH MANUAL DIFF Comments: PATIENT NOT FASTINGPERFORMED BY: Mass[employer] TechnologiesSt. Lawrence Rehabilitation CenterYyzpch7957 [facility] [id number] BY: [employer] [id number] Inf ormation: NURSE DRAW (99596) Immature Grans (Abs) 0.0 {x10E3/uL} (Normal) Range: [...] 4.14-5.80 WBC 5.9 {x10E3/uL} (Normal) Range: 3.4-10.8 78-Itj-011940:00 Vitamin B-12 Comments: PATIENT NOT FASTINGPERFORMED BY: Traveler | VIP [facility] [id number] BY: [employer] [address] [id number] (cyanocobalamin) (14363) Vitamin B12 529 pg/mL (Normal) Range: 211-946 09-Kqn-267326:00 Methymalonic Acid, Serum Comments: PATIENT NOT FASTINGPERFORMED BY: EyeEm[address] [id number] BY: [employer] Mghffssfio11[address] [id number] (70975) Methylmalonic Acid, Serum 284 nmol/L (Normal) Range: 0-378 09-Xpa-253474:59 ANCA-C (ANTI NEUTROPHIL Comments: copy to Dr. [phone] all these now; PATIENT WAS FASTINGPERFORMED BY: [employer] Jtipjysmcu[address] [id number] BY: Mass[employer] Par[employer] TechnologiesSt. Lawrence Rehabilitation CenterSwdtjn1555 [place] [facility] [id number] CYTOPLASMIC ANTIBODY) Atypical pANCA <1:20 {titer} Comments: [...] follow up testing ofpositive sera with both MT-3 and MPO-ANCA enzyme immunoassays. Asmany as 5% serum samp les are positive only by EIA.Ref. AM J Clin Pathol 1999;111:507-513. Cytoplasmic (C-ANCA) <1:20 {titer} (Normal) Antiproteinase 3 (MT-3) Abs <3.5 U/mL (Normal) Range: 0.0-3.5 Antimyeloperoxidase (MPO) Abs <9.0 U/mL (Normal) Range: 0.0-9.0 29-Rrd-698662:59 Renal function Panel Comments: now; PATIENT WAS FASTINGPERFORMED BY: LabCompliance InnovationsDawn [place]ille 519677 [facility] [id number] BY: [facility]6[address] [facility] [id number] (26258) Albumin, Serum 4.1 g/dL (Normal) Range: 3.5-4.8 [...] Glucose, Serum 166 mg/dL (Abnormal) Range: 65-99 47-Gms-934252:59 LIPOPROTEIN, BLD, BY NMR Comments: now; PATIENT WAS FASTINGPERFORMED BY: BN [facility] Mzobucwsji9901 [facility] [id number] BY: CB [facility] Nfqvpb6756 [facility] [id number] (34553) LP-IR Score 39 (Normal) Comments: INSULIN RESISTANCE MARKER <--Insulin Sensitive Insulin Resistant--> Percentile in Reference PopulationInsulin Resistance ScoreLP-IR Score Low 25th 50th 75th High <27 27 45 63 >63LP-IR Score is inaccurate if patient is non-fasting. .The LP-IR score is a laboratory developed i [facility] that has beenassociated with insulin resistance and [...] were developed and their performance characteristicsdetermined by [employer]. These assays have not been cleared by [...] 1600 - 2000 Very High > 2000 03-Pvv-027307:59 TSH (12577) Comments: PATIENT WAS FASTINGPERFORMED BY: [employer] [id number] BY: [employer] Bitxhl9659 [facility] [id number] TSH 2.960 {uIU/mL} (Normal) Range: 0.450-4.500 62-Ffp-278873:59 COMPLEMENT C4 (59394) Comments: PATIENT WAS FASTINGPERFORMED BY: Telos Entertainmentrp Urpjydfrgo[address] [id number] BY: Help/Systems LabY[employer] Mobile Gqqxfk7622 [address] [facility] [id number] Complement C4, Serum 32 mg/dL (Normal) Range: 14-44 43-Scc-639004:59 COMPLEMENT C3 (15329) Comments: PATIENT WAS FASTINGPERFORMED BY: [employer] [facility] [address] [id number] BY: [employer] Epuzbo6309 [address] [facility] [id number] Complement C3, Serum 137 mg/dL (Normal) Range: 82-167 25-Bdi-380734:59 MICROALBUMIN: CREATININE Comments: PATIENT WAS FASTINGPERFORMED BY: [employer] [id number] BY: Mass[employer] Parallel TechnologiesSt. Lawrence Rehabilitation CenterMlnxpp2949 [facility] [id number] RATIO (95077) AND (77328) Microalb/Creat Ratio 118.3 {mg/g_creat} (Abnormal) Range: 0.0-30.0 Microalbumin, Urine 52.3 ug/mL (Normal) Creatinine, Urine 44.2 mg/dL (Normal) :59 SPEP (36723) Comments: PATIENT WAS FASTINGPERFORMED BY: [employer] [id number] BY: EyeEmSt. Lawrence Rehabilitation CenterOdymec2342 [facility] [id number] Please note: SPRCS (Normal) Comments: Protein electrophoresis scan will follow via computer, mail, orcourier delivery. A/G Ratio 1.2 (Normal) Range: 0.7-1.7 Globulin, Total 3.1 g/dL (Normal) Range: 2.2-3.9 M-Maxime Not Observed g/dL (Normal) Gamma Globulin 0.9 g/dL (Normal) Range: 0.4-1.8 Beta Globulin 1.1 g/dL (Normal) Range: 0.7-1.3 Dfnyd-6-Vuqevjqn 0.9 g/dL (Normal) Range: 0.4-1.0 Eefqp-2-Bdvqdwps 0.2 g/dL (Normal) Range: 0.0-0.4 Albumin 3.7 g/dL (Normal) Range: 2.9-4.4 Protein, Total, Serum 6.8 g/dL (Normal) Range: 6.0-8.5 16-Rht-352773:59 DNA ANTIBODY-NATV/DBL ST Comments: PATIENT WAS FASTINGPERFORMED BY: [employer] [id number] BY: [employer] TechnologiesKelly [place]ille 6806770 [facility] [id number] (27540) test code 399370 Anti-DNA (DS) Ab Qn <1 {IU/mL} (Normal) Range: 0-9 Comments: Negative <5 Equivocal 5 - 9 Positive >9 84-Ixq-246045:28 Alcohol, Blood (Medical)-Serum Comments: [facility] Wnmdqtmeaz[address] [place], [address] SERUM ETOH < 3.0 mg/dL (Normal) Comments: The serum:whole blood ethanol ratio is approximately 1.14and varies slightly with hematocrit.Medical Alcohol reference interval and critical value innon-tolerant individuals; 50 - 100 Impairment 100 Intoxication 100 - 250 Severe Poisoning 250 - 400 Deep/possible fatal coma 81-Zkd-813168:28 CBC W/Diff, Automated Comments: [facility] Teqncdbqom7235 [facility] [address] [place], [place], [address] Absolute Lymph 1.85 {X10_3/ul} (Normal) Range: 0.83-4.51 [...] 4.6-6.2 WBC 7.1 K/mm3 (Normal) Range: 4.4-11.0 49-Kmk-537132:28 Comprehensive Metabolic Profil Comments: [facility] Eptqmqbzhr[address] [place], [place], [address] GAP 10 (Normal) Range: 5-15 CO2 29.0 [...] 126 mg/dLsuggests DIABETES MELLITUS per A.D.A. criteria. 09-Voy-824169:28 Troponin-I Comments: 'TROP' Serial specimen #1, #2, #3, or #4: 1[facility] Gakjfolbvj[address] [place], [address] TROPONIN-I 0.03 ng/mL (Normal) Comments: TROPONIN-I EXPECTED VALUES <0.05 NEGATIVE 0.06 - 0.59 AT RISK OF RI > OR = 0.60 SUGGEST RI 23-Fob-837217:08 HgA1C , Office (82586) HgA1C , Office 6.8 % (Normal) Range: 4.6 - 7.1 :59 Metabolic Panel, Basic (94582) Comments: recheck in one week; PATIENT WAS FASTINGPERFORMED BY: Help/Systems LabCoAltheosCjhrod4007 [facility] [id number] Calcium, Serum 8.5 mg/dL (Abnormal) Range: 8.6-10.2 [...] Glucose, Serum 136 mg/dL (Abnormal) Range: 65-99 78-Agf-927793:20 CBC (Auto) (19396) Comments: PATIENT NOT FASTINGPERFORMED BY: Help/Systems [facility] Rdelhk6029 [facility] [id number] Platelets 183 {x10E3/uL} (Normal) Range: 150-379 RDW 13.6 % (Normal) Range: 12.3-15.4 MCHC 34.8 g/dL (Normal) Range: 31.5-35.7 MCH 34.1 pg (Abnormal) Range: 26.6-33.0 MCV 98 fL (Abnormal) Range: 79-97 Hematocrit 40.5 % (Normal) Range: 37.5-51.0 Hemoglobin 14.1 g/dL (Normal) Range: 12.6-17.7 RBC 4.13 {x10E6/uL} (Abnormal) Range: 4.14-5.80 WBC 7.9 {x10E3/uL} (Normal) Range: 3.4-10.8 :20 Magnesium (04594) Comments: PATIENT NOT FASTINGPERFORMED BY: LabCompliance InnovationsSt. Lawrence Rehabilitation CenterDmwbjq8620 [facility] [id number] Magnesium, Serum 2.2 mg/dL (Normal) Range: 1.6-2.3 :20 Renal function Panel (20663) Comments: PATIENT NOT FASTINGPERFORMED BY: LabCoSt. Lawrence Rehabilitation CenterGbryen1016 [facility] [id number] Albumin, Serum 4.2 g/dL (Normal) Range: 3.5-4.8 [...] Glucose, Serum 266 mg/dL (Abnormal) Range: 65-99 16-Njx-288351:54 Basic Metabolic Profile (BMP) Comments: Order Date: 12/25/16Order Info: 0667-1 - *BMPOrder Info: 65147-2 - *MagnesiumOrder Date: 12/25/16Order Info: - *MagnesiumComments: Reason:[facility] [address]sqmiqnw[address] [place], [place], [address] GAP 11 (Normal) Range: 5-15 CO2 30.0 [...] 200 mg/dLsuggests DIABETES MELLITUS per A.D.A. criteria. 12-Yah-035420:54 Magnesium Comments: Order Date: 12/25/16Order Info: 0667-1 - *BMPOrder Info: - *MagnesiumOrder Date: 12/25/16Order Info: - *MagnesiumComments: Reason:[facility] Sraitewhbw[address] [place], [address] MG 2.0 mg/dL (Normal) Range: 1.8-2.4 94-Gqe-018464:35 Basic Metabolic Profile (BMP) Comments: Order Date: 12/18/16Order Info: 0667-1 - *BMPOrder Info: - *MagnesiumComments: For VT episodeOrder Info: 3026-2 - *T4 (Total)Comments: Reason: For [place] episoeOrder Info: 3016-3 - *TSHComments: Alicia son: For [place] episodeOrder Date: 12/18/16Order Info: 3016-3 - *TSHComments: Reason: For [facility] [address] [place], [address] GAP 12 (Normal) Range: 5-15 [...] 200 mg/dLsuggests DIABETES MELLITUS per A.D.A. criteria. 47-Ffo-074618:35 CBC-Complete Blood Cnt No Diff Comments: Order Date: 12/18/16Order Info: 3016-3 - *TSHComments: Reason: For [facility] Rlwzprussq[address] [place], [address] MPV 10.7 fL (Normal) Range: [...] 4.6-6.2 WBC 8.1 K/mm3 (Normal) Range: 4.4-11.0 10-Xzi-499260:35 Magnesium Comments: Order Date: 12/18/16Order Info: 666-1 - *BMPOrder Info: - *MagnesiumComments: For VT episodeOrder Info: 3026-2 - *T4 (Total)Comments: Reason: For [place] episoeOrder Info: 3015-3 - *TSHComments: Alicia son: For [place] episodeOrder Date: 12/18/16Order Info: 3015-3 - *TSHComments: Reason: For [place] episodeWOhioHealth [facility] Mvknergshh[address] [place], [place], [phone](423) MG 2.0 mg/dL (Normal) Range: 1.8-2.4 33-Pfb-586324:35 T4 Total, Thyroxin Comments: Order Date: 12/18/16Order Info: 666-10 - *BMPOrder Info: - *MagnesiumComments: For [place] episodeOrder Info: 3026-2 - *T4 (Total)Comments: Reason: For [place] episoeOrder Info: 3015-3 - *TSHC omments: Alicia son: For [place] episodeOrder Date: 12/18/16Order Info: 301-3 - *TSHComments: Reason: For [place] episodeWOhioHealth [facility]in [facility] Hospital Cijxplnbnc[address] [place], [place], [id number] T4 THYROXIN 11.3 ug/dL (Normal) Range: 4.5-12.1 85-Zed-255070:35 Thyroid Stim Hormone (TSH) Comments: Order Date: 12/18/16Order Info: 666-1 - *BMPOrder Info: - *MagnesiumComments: For [place] episodeOrder Info: 3026-2 - *T4 (Total)Comments: Reason: For [place] episoeOrder Info: 3016-3 - *TSHComments: Elizabeth son: For [place] episodeOrder Date: 12/18/16Order Info: 3 - *TSHComments: Reason: For [place] episodeWOhioHealth [facility]in [facility] Hospital Fpriwxhvhv[address] [place], [address] TSH 0.86 {uIU/mL} (Normal) Range: 0.358-3.74 9-Pim-383184:05 PSA (Prostate Specific Comments: PATIENT NOT FASTINGPERFORMED BY: LabCoSt. Lawrence Rehabilitation CenterWebkxy5171 [facility] [id number] Information: [id number] NURSE DRAW Antigen), Screening (13203) Prostate Specific Ag, 1.0 ng/mL (Normal) Range: 0.0-4.0 Serum Comments: [employer] ECLIA methodology. .According to the Micronesian Urological Association, Serum PSA shoulddecrease and remain at undetectable levels after radicalprostatectomy. The AUA defines biochemical recurrence as an initialPSA value 0.2 ng/mL or greater followed by a subsequent confirmatoryPSA value 0.2 ng/mL or greater.Values obtained with d ifferent assay methods or kits cannot be usedinterchangeably. Results cannot be interpreted as absolute evidenceof the presence or absence of malignant disease. 63-Jje-916919:01 Metabolic Panel, Basic Comments: copy to Dr. hu; PATIENT NOT FASTINGPERFORMED BY: LabCoSt. Lawrence Rehabilitation CenterMyhooa0694 [facility] [id number] Information: [id number] (41730) Calcium, Serum 9.3 mg/dL (Normal) Range: 8.6-10.2 [...] Glucose, Serum 192 mg/dL (Abnormal) Range: 65-99 55-Cdk-607690:49 BNTP (95031) Comments: PATIENT NOT FASTINGPERFORMED BY: [facility] Opqolq9773 [facility] [id number] Information: [id number] B-Type Natriuretic Peptide 273.9 pg/mL (Abnormal) Range: 0.0-100.0 4-Qgw-212450:01 HgA1C , Office (44218) HgA1C , Office 6.1 % (Normal) Range: 4.6 - 7.1 54-Yct-619727:02 Basic Metabolic Profile (BMP) Comments: [facility] [address] [place], [place], [address] GAP 6 (Normal) Range: 5-15 CO2 26.0 [...] A.D.A. criteria. :02 BNP,B-Type NATRIURETIC PEPTIDE Comments: [facility] [address]zjd[address] [place], [place], [address] B-TYPE JUSTIN PEP 261.3 pg/mL (Abnormal) Range: 0-100 54-Aqo-629231:22 TSH (49507) Comments: PATIENT NOT FASTINGPERFORMED BY: [facility] Fvdfng6160 [facility] [id number] TSH 3.740 {uIU/mL} (Normal) Range: 0.450-4.500 57-Bdy-219724:22 METABOLIC PANEL, COMPREHENSIVE Comments: PATIENT NOT FASTINGPERFORMED BY: Massively Parallel TechnologiesSt. Lawrence Rehabilitation CenterMgzgop2946 [facility] [id number] (06663) ALT (SGPT) 19 [iU]/L (Normal) Range: 0-44 [...] Glucose, Serum 155 mg/dL (Abnormal) Range: 65-99 02-Vjf-857537:22 CBC W/AUTO DIFF WBC Comments: PATIENT NOT FASTINGPERFORMED BY: [facility]6370 [facility] [id number] Information: [id number]; apt. 4--16 (67205) Immature Grans (Abs) 0.0 {x10E3/uL} (Normal) Range: [...] (Normal) Range: 3.4-10.8 :57 HgA1C , Office (58972) HgA1C , Office 7.1 % (Normal) Range: 4.6 - 7.1 :13 Lipid Profile Comments: [facility] Hysgvcgone[address] [place], [place], [address] VLDL 78 mg/dL (Abnormal) Range: 5-40 LDL [...] mg/dL High Risk :13 Liver Profile Comments: [facility] [address]kdegzvb[address] [place], [address] D BILI 0.10 mg/dL (Normal) Range: 0.00-0.30 T BILI 0.40 mg/dL (Normal) Range: 0.20-1.00 ALT 30 U/L (Normal) Range: 12-78 ALK P 99 U/L (Normal) Range: 50-136 AST 23 U/L (Normal) Range: 15-37 GLOB 3.6 g/dL (Abnormal) Range: 2.3-3.5 ALB 3.3 g/dL (Abnormal) Range: 3.4-5.0 T PROT 6.9 g/dL (Normal) Range: 6.4-8.2 21-Map-880239:33 Blood Glucose , Office (10091) Blood Glucose , Office 184 (Normal) Comments: told to stop juices and tighten diet 38-Rto-85095:25 METABOLIC PANEL, BASIC Comments: PATIENT NOT FASTINGPERFORMED BY: [facility] Xvkkfn7602 [facility] [id number] Information: [id number]; apt. 10-26-15 creat stayed same (25137) Calcium, Serum 9.0 mg/dL (Normal) Range: 8.6-10.2 [...] Glucose, Serum 127 mg/dL (Abnormal) Range: 65-99 35-Tep-202437:26 Metabolic Panel, Basic Comments: standing order; PATIENT NOT FASTINGPERFORMED BY: Domee Vsyulw0516 [facility] [id number] Information: [id number] (99299) Calcium, Serum 9.1 mg/dL (Normal) Range: 8.6-10.2 [...] mg/dL (Abnormal) Range: 65-99 :36 CULTURE, SPUTUM (30141) Comments: PATIENT NOT FASTINGPERFORMED BY: Domee Okeais0557 [facility] [id number] Information: SRC:[facility] [id number] Result 1 RRF (Normal) Comments: Routine respiratory liu Lower Respiratory Culture Final report (Normal) :31 HgA1C , Office (57915) HgA1C , Office 6.4 % (Normal) Range: 4.6 - 7.1 :31 Blood Glucose , Office (66905) Blood Glucose , Office 282 (Normal) :38 PSA (PROSTATE SPECIFIC Comments: PATIENT NOT FASTINGPERFORMED BY: [employer] [id number] ANTIGEN) (V76.44) Prostate Specific Ag, 1.0 ng/mL (Normal) Range: 0.0-4.0 Serum Comments: Erik ECLIA methodology. .According to the [place]ron[place] Urological Association, Serum PSA shoulddecrease and remain at undetectable levels after radicalprostatectomy. The AUA defines biochemical recurrence as an initialPSA value 0.2 ng/mL or greater followed by a subsequent confirmatoryPSA value 0.2 ng/mL or greater.Values obtained with d ifferent assay methods or kits cannot be usedinterchangeably. Results cannot be interpreted as absolute evidenceof the presence or absence of malignant disease. :38 TSH (37350) Comments: PATIENT NOT FASTINGPERFORMED BY: Help/Systems [facility] Bqjuyx3122 Sweeney RoadDublin [place] [id number] TSH 4.310 {uIU/mL} (Normal) Range: 0.450-4.500 :38 Magnesium (54098) Comments: PATIENT NOT FASTINGPERFORMED BY: [facility] Bjjnuk6060 [address]weeney RoadDublin [place] [id number] Magnesium, Serum 1.9 mg/dL (Normal) Range: 1.6-2.6 :38 Metabolic Panel, Comments: PATIENT NOT FASTINGPERFORMED BY: [facility] Ziwche8543 [address] [facility] Hospitalin [place] [id number] Information: [id number]; apt. 07-23-15 Comprehensive (32763) ALT (SGPT) 28 [iU]/L (Normal) Range: 0-44 [...] (Abnormal) Range: 65-99 :08 HgA1C , Office (17596) HgA1C , Office 6.5 % (Normal) Range: 4.6 - 7.1 :08 Blood Glucose , Office (03222) Blood Glucose , Office 277 (Normal) :52 CBC, Platelet, No Differential Comments: PATIENT WAS FASTINGPERFORMED BY: [employer]er [employer] VIP [facility] [id number] Platelets 184 {x10E3/uL} (Normal) Range: 150-379 RDW 14.1 % (Normal) Range: 12.3-15.4 MCHC 34.2 g/dL (Normal) Range: 31.5-35.7 MCH 33.7 pg (Abnormal) Range: 26.6-33.0 MCV 99 fL (Abnormal) Range: 79-97 Hematocrit 40.3 % (Normal) Range: 37.5-51.0 Hemoglobin 13.8 g/dL (Normal) Range: 12.6-17.7 RBC 4.09 {x10E6/uL} (Abnormal) Range: 4.14-5.80 WBC 8.2 {x10E3/uL} (Normal) Range: 3.4-10.8 :52 Renal Panel (10) Comments: PATIENT WAS FASTINGPERFORMED BY: [id number] [id number] Information: [id number] Albumin, Serum 4.1 g/dL (Normal) Range: 3.5-4.8 [...] 65-99 :05 Lipid Profile Comments: Test performed at:[facility] [id number] [place] [address] [id number] VLDL 35 mg/dL (Normal) Range: 5-40 LDL [...] Risk :05 Liver Profile Comments: Test performed at:[facility] [address] [place], [place] [id number] D BILI 0.20 mg/dL (Normal) Range: 0.00-0.30 T BILI 0.70 mg/dL (Normal) Range: 0.00-4.00 ALT 27 U/L (Normal) Range: 12-78 ALK P 80 U/L (Normal) Range: 50-136 AST 26 U/L (Normal) Range: 15-37 GLOB 3.4 g/dL (Normal) Range: 2.7-4.2 ALB 3.7 g/dL (Normal) Range: 3.4-5.0 T PROT 7.1 g/dL (Normal) Range: 6.4-8.2 12-Tnk-357772:47 Vitamin B-12 Comments: these today; PATIENT NOT FASTINGPERFORMED BY: EyeEm Guclmm1663 [facility] [id number] BY: [employer] [id number] (cyanocobalamin) (79803) Vitamin B12 526 pg/mL (Normal) Range: 211-946 54-Sgu-735446:47 RETICULOCYTE COUNT (88813) Comments: PATIENT NOT FASTINGPERFORMED BY: [employer]Em Mpjcui6407 [facility] [id number] BY: [employer] [id number] Reticulocyte Count 2.1 % (Normal) Range: 0.6-2.6 82-Umb-316837:47 Folic Acid Serum (47105) Comments: PATIENT NOT FASTINGPERFORMED BY: ELIKE70 [facility] [id number] BY: [employer] [id number] Information: [id number] Folate (Folic Acid), Serum >20.0 ng/mL (Normal) Comments: A serum folate concentration of less than 3.1 ng/mL isconsidered to represent clinical deficiency. 12-Rom-910014:47 Methymalonic Acid, Serum Comments: PATIENT NOT FASTINGPERFORMED BY: [employer]Em Skfpww0535 [facility] [id number] BY: [employer] [id number] (39373) Methylmalonic Acid, Serum 219 nmol/L (Normal) Range: 0-378 79-Hmo-99122:42 HgA1C , Office (58149) HgA1C , Office 6.5 % (Normal) Range: 4.6 - 7.1 15-Hqh-88145:42 Blood Glucose , Office (08539) Blood Glucose , Office 194 (Normal) 55-Zfc-251549:13 Basic Metabolic Profile (BMP) Comments: Test performed at:[facility] Pbeqfhxyga9563 [facility] [place] [address] GAP 8 (Normal) Range: 5-15 CO2 28.0 [...] 126 mg/dLsuggests DIABETES MELLITUS per A.D.A. criteria. 70-Rqe-93000:22 Basic Metabolic Profile (BMP) Comments: Test performed at:[facility] Bvbhqsdovw8082 [facility] [place] [address] GAP 6 (Normal) Range: 5-15 CO2 29.0 [...] 126 mg/dLsuggests DIABETES MELLITUS per A.D.A. criteria. 59-Ghe-75575:22 BNP,B-Type NATRIURETIC PEPTIDE Comments: Test performed at:[facility] Qolcdkikdq69[address] [place], [place] [address] B-TYPE JUSTIN PEP 337.5 pg/mL (Abnormal) Range: 0-100 50-Brz-566883:19 Magnesium (86048) Comments: 2 weeks and in three months (approximately); PATIENT WAS FASTINGPERFORMED BY: [employer] Ypofbv4701 [facility] [id number] Magnesium, Serum 1.9 mg/dL (Normal) Range: 1.6-2.6 96-Mlp-689483:19 Renal function Panel (61735) Comments: 2 weeks; PATIENT WAS FASTINGPERFORMED BY: LabCoUNM HospitalTydptu6172 [facility] [id number] Phosphorus, Serum 3.2 mg/dL (Normal) Range: 2.5-4.5 :19 TSH (53264) Comments: PATIENT WAS FASTINGPERFORMED BY: [facility] Vstmqi0033 [facility] [id number] TSH 2.460 {uIU/mL} (Normal) Range: 0.450-4.500 64-Syj-959007:19 METABOLIC PANEL, COMPREHENSIVE Comments: PATIENT WAS FASTINGPERFORMED BY: [facility] Xsicjc8629 [facility] [id number] (34290) ALT (SGPT) 21 [iU]/L (Normal) Range: 0-44 [...] Glucose, Serum 131 mg/dL (Abnormal) Range: 65-99 77-Bnu-189092:19 LIPID PANEL (51891) Comments: PATIENT WAS FASTINGPERFORMED BY: ELIKE70 [facility] [id number] LDL/HDL Ratio 0.7 {ratio_units} (Normal) Range: 0.0-3.6 [...] Cholesterol, Total 118 mg/dL (Normal) Range: 100-199 08-Hrp-401059:19 CBC W/AUTO DIFF WBC Comments: PATIENT WAS FASTINGPERFORMED BY: ELIKE70 [facility] [id number] Information: [id number] (44856) Immature Grans (Abs) 0.0 {x10E3/uL} (Normal) Range: [...] Range: 3.4-10.8 :38 Blood Glucose , Office (46679) Blood Glucose , Office 229 (Normal) :38 HgA1C , Office (79060) HgA1C , Office 6.7 % (Normal) Range: 4.6 - 7.1 :23 Basic Metabolic Profile (BMP) Comments: Test performed at:[facility] Ykiytyautt4738 [place] [address] GAP 6 (Normal) Range: 5-15 CO2 28.0 [...] 126 mg/dLsuggests DIABETES MELLITUS per A.D.A. criteria. 41-Imd-174181:23 BNP,B-Type NATRIURETIC PEPTIDE Comments: Test performed at:[facility] Vkzecrugkt9591 [address] [place], [place] [id number] B-TYPE JUSTIN PEP 348.7 pg/mL (Abnormal) Range: [...] :58 BTNP 261.6 pg/mL (Abnormal) Range: 0-100 01-Yfc-760653:47 CBC (Auto) (07431) Comments: PATIENT NOT FASTINGPERFORMED BY: [facility] Gqxqzb4640 [facility] [id number] Platelets 165 {x10E3/uL} (Normal) Range: 150-379 RDW 13.9 % (Normal) Range: 12.3-15.4 MCHC 34.3 g/dL (Normal) Range: 31.5-35.7 MCH 33.8 pg (Abnormal) Range: 26.6-33.0 MCV 99 fL (Abnormal) Range: 79-97 Hematocrit 38.5 % (Normal) Range: 37.5-51.0 Hemoglobin 13.2 g/dL (Normal) Range: 12.6-17.7 RBC 3.91 {x10E6/uL} (Abnormal) Range: 4.14-5.80 WBC 6.7 {x10E3/uL} (Normal) Range: 3.4-10.8 66-Lma-640429:47 Renal function Panel Comments: PATIENT NOT FASTINGPERFORMED BY: LabCoSt. Lawrence Rehabilitation CenterPjcbna1620 [facility] [id number] Information: [id number] (91712) Albumin, Serum 4.0 g/dL (Normal) Range: 3.5-4.8 [...] Glucose, Serum 144 mg/dL (Abnormal) Range: 65-99 16-Cda-116666:47 MAGNESIUM (57091) Comments: PATIENT NOT FASTINGPERFORMED BY: LabCoSt. Lawrence Rehabilitation CenterFafomv2938 [facility] [id number] Magnesium, Serum 1.7 mg/dL (Normal) Range: 1.6-2.6 :28 HgA1C , Office (05350) HgA1C , Office 6.6 % (Normal) Range: 4.6 - 7.1 :28 Blood Glucose , Office (02991) Blood Glucose , Office 148 (Normal) :54 [...] CHOL 130 mg/dL (Normal) Comments: <200 mg/dL Iygwpcuee878-127 mg/dL Borderline>240 mg/dL High Risk HDL 62 [...] performed using the TPSA assay method for [employer] chemistry system. Values obtained with differentassay methods [...] CMP MIAMAG ADDED PER REQUEST Range: 0.358-3.74 05-Qlk-062623:13 BMP GAP 7 (Normal) Range: 5-15 CO2 [...] 126 mg/dLsuggests DIABETES MELLITUS per A.D.A. criteria. 97-Clm-59330:37 Metabolic Panel, Basic Comments: recheck in 1-2 weeks; PATIENT NOT FASTINGPERFORMED BY: [address] [id number] Information: [id number] (59488) Calcium, Serum 8.7 mg/dL (Normal) Range: 8.6-10.2 [...] Glucose, Serum 161 mg/dL (Abnormal) Range: 65-99 19-Gxo-086530:00 BNTP (59660) Comments: PATIENT NOT FASTINGPERFORMED BY: [address] [id number] Information: [id number] ORDER NO DRAW F EE B-Type Natriuretic Peptide 899.8 pg/mL (Abnormal) Range: 0.0-100.0 45-Pib-663835:14 CULTURE, SPUTUM (51060) Comments: PATIENT NOT FASTINGPERFORMED BY: [address] [id number] Result 1 RRF (Normal) Comments: Routine respiratory liu Lower Respiratory Culture Final report (Normal) 33-Csn-465738:00 Metabolic Panel, Basic Comments: PATIENT NOT FASTINGPERFORMED BY: [address] [id number] Information: [id number] (95148) Calcium, Serum 8.6 mg/dL (Normal) Range: 8.6-10.2 [...] Glucose, Serum 129 mg/dL (Abnormal) Range: 65-99 88-Icu-180068:22 CBC WITH MANUAL DIFF Comments: all copies of labs to Dr. hu; PATIENT WAS FASTINGPERFORMED BY: [facility]6370 [facility] [id number] Information: [id number] (00042) Immature Grans (Abs) 0.0 {x10E3/uL} (Normal) Range: [...] 4.14-5.80 WBC 7.7 {x10E3/uL} (Normal) Range: 3.4-10.8 01-Qir-225650:22 MICROALBUMIN: CREATININE RATIO Comments: PATIENT WAS FASTINGPERFORMED BY: EyeEmSt. Lawrence Rehabilitation CenterLdplsc2956 [facility] [id number] (30328) AND (32275) Microalb/Creat Ratio 135.4 {mg/g_creat} (Abnormal) Range: 0.0-30.0 Creatinine, Urine 126.0 mg/dL (Normal) Range: 22.0-328.0 Microalbumin, Urine 170.6 ug/mL (Abnormal) Range: 0.0-17.0 78-Lnu-170376:22 METABOLIC PANEL, COMPREHENSIVE Comments: PATIENT WAS FASTINGPERFORMED BY: Mass[employer] Parallel TechnologiesSt. Lawrence Rehabilitation CenterAivaqq1245 [facility] [id number] (39933) ALT (SGPT) 14 [iU]/L (Normal) Range: 0-44 [...] mg/dL (Abnormal) Range: 65-99 :22 LIPID PANEL (97646) Comments: PATIENT WAS FASTINGPERFORMED BY: [employer] [facility] [id number] LDL/HDL Ratio 0.8 {ratio_units} (Normal) Range: 0.0-3.6 LDL Cholesterol Calc 40 mg/dL (Normal) Range: 0-99 VLDL Cholesterol Mike 27 mg/dL (Normal) Range: 5-40 HDL Cholesterol 53 mg/dL (Normal) Comments: According to ATP-III Guidelines, HDL-C >59 mg/dL is considered anegative risk factor for CHD. Triglycerides 134 mg/dL (Normal) Range: 0-149 Cholesterol, Total 120 mg/dL (Normal) Range: 100-199 :22 TSH (04996) Comments: PATIENT WAS FASTINGPERFORMED BY: [employer] VIP [facility] [id number] TSH 3.630 {uIU/mL} (Normal) Range: 0.450-4.500 :34 Blood Glucose , Office (02522) Blood Glucose , Office 164 (Normal) :34 HgA1C , Office (21189) HgA1C , Office 6.4 % (Normal) Range: 4.6 - 7.1 :31 LIPID PANEL (39285) Comments: copy all labs to [email or web address]; PATIENT WAS FASTINGPERFORMED BY: [employer] [facility] [id number] LDL/HDL Ratio 0.9 {ratio_units} (Normal) Range: 0.0-3.6 [...] (PROSTATE SPECIFIC Comments: PATIENT WAS FASTINGPERFORMED BY: ELIKE70 [facility] [id number] ANTIGEN) (V76.44) Prostate Specific Ag, 1.3 ng/mL (Normal) Range: 0.0-4.0 Serum Comments: [employer] ECLIA methodology. .According to the [employer], Serum PSA shoulddecrease and remain at undetectable levels after radicalprostatectomy. The AUA defines biochemical recurrence as an initialPSA value 0.2 ng/mL or greater followed by a subsequent confirmatoryPSA value 0.2 ng/mL or greater.Values obtained with d ifferent assay methods or kits cannot be usedinterchangeably. Results cannot be interpreted as absolute evidenceof the presence or absence of malignant disease. :31 TSH (44495) Comments: PATIENT WAS FASTINGPERFORMED BY: [employer]dik6370 [facility] [id number] TSH 3.240 {uIU/mL} (Normal) Range: 0.450-4.500 :31 MICROALBUMIN: CREATININE RATIO Comments: PATIENT WAS FASTINGPERFORMED BY: [employer]Em Hrrzgx3272 [facility] [id number] (06226) AND (67717) Microalb/Creat Ratio 51.5 {mg/g_creat} (Abnormal) Range: 0.0-30.0 Microalbumin, Urine 104.3 ug/mL (Abnormal) Range: 0.0-17.0 Creatinine, Urine 202.4 mg/dL (Normal) Range: 22.0-328.0 :31 METABOLIC PANEL, COMPREHENSIVE Comments: PATIENT WAS FASTINGPERFORMED BY: [employer] Mwhngr1603 [facility] [id number] (06416) ALT (SGPT) 13 [iU]/L (Normal) Range: 0-44 [...] MANUAL DIFF Comments: PATIENT WAS FASTINGPERFORMED BY: Massively Parallel TechnologiesSt. Lawrence Rehabilitation CenterYhybsr3487 [facility] [id number] Information: ADD [id number] AND DRAW FEE [id number] (56284) Immature Grans (Abs) 0.0 {x10E3/uL} (Normal) Range: [...] interval change :42 Blood Glucose , Office (44676) Blood Glucose , Office 171 (Normal) :41 HgA1C , Office (71380) HgA1C , Office 6.1 % (Normal) Range: 4.6 - 7.1 19-Wsr-175674:36 CHEST, PA AND LATERAL Radiology Report See [...] Sue M.D.December 11, 2012 at 4:00:01 PM [id number] Signed GP/GP If you are the referring physician and would like to consult with theradiologist who provided this interpretation, please contact James Trejo at . If this radiologist is unavailable, youwill be directed to another radiologist to assist. If you are a patient with a question regarding this report, pleasecontactyour referring physician directly. Professional Interpretation Provided By: [facility], Phone , These documents contain legally protected [...] 12/11/12 1605 Sign by: Louis Sue MD 39-Sux-87638:56 CBC, Platelets & Auto Diff Comments: PATIENT NOT FASTINGPERFORMED BY: LabJohn [facility]. [facility]6370 [facility] [id number] Information: [id number] (45709) Immature Grans (Abs) 0.0 {x10E3/uL} (Normal) Range: [...] (Normal) Range: 4.0-10.5 :56 Metabolic Panel, Basic (69865) Comments: PATIENT NOT FASTINGPERFORMED BY: [facility]6370 [facility] [id number] Calcium, Serum 9.5 mg/dL (Normal) Range: 8.6-10.2 [...] Range: 65-99 :03 Blood Glucose , Office (59815) Blood Glucose , Office 185 (Normal) :03 HgA1C , Office (66988) HgA1C , Office 5.6 % (Normal) Range: 4.6 - 7.1 4-Ybd-596664:36 CBC WITH MANUAL DIFF Comments: send cardiology Dr. hu; PATIENT WAS FASTINGPERFORMED BY: [facility]6370 [facility] [id number] Information: [id number] (89780) Immature Grans (Abs) 0.0 {x10E3/uL} (Normal) Range: [...] 4.14-5.80 WBC 10.9 {x10E3/uL} (Abnormal) Range: 4.0-10.5 9-Loe-580176:36 MICROALBUMIN: CREATININE RATIO Comments: PATIENT WAS FASTINGPERFORMED BY: [facility] HospitalCoSt. [facility] Rehabilitation CenterKdokgs1055 [facility] [id number] (74098) AND (24238) Microalb/Creat Ratio 37.8 {mg/g_creat} (Abnormal) Range: 0.0-30.0 Creatinine, Urine 138.0 mg/dL (Normal) Range: 22.0-328.0 Microalbumin, Urine 52.1 ug/mL (Abnormal) Range: 0.0-17.0 :36 METABOLIC PANEL, COMPREHENSIVE Comments: PATIENT WAS FASTINGPERFORMED BY: [facility]6370 [facility] [id number] (51794) ALT (SGPT) 17 [iU]/L (Normal) Range: 0-44 [...] Glucose, Serum 109 mg/dL (Abnormal) Range: 65-99 4-Gqj-017958:36 LIPID PANEL (60412) Comments: PATIENT WAS FASTINGPERFORMED BY: LabCoSt. Lawrence Rehabilitation CenterJtygyq5312 [facility] [id number] LDL Cholesterol Calc 52 mg/dL (Normal) Range: 0-99 LDL/HDL Ratio 0.9 {ratio_units} (Normal) Range: 0.0-3.6 HDL Cholesterol 58 mg/dL (Normal) Comments: According to ATP-III Guidelines, HDL-C >59 mg/dL is considered anegative risk factor for CHD. VLDL Cholesterol Mike 21 mg/dL (Normal) Range: 5-40 Cholesterol, Total 131 mg/dL (Normal) Range: 100-199 Triglycerides 103 mg/dL (Normal) Range: 0-149 9-Seo-681372:14 Blood Glucose , Office (53293) Blood Glucose , Office 171 (Normal) Comments: had toast for breakfast :07 HgA1C , Office (03599) HgA1C , Office 6.0 % (Normal) Range: 4.6 - 7.1 :07 Blood Glucose , Office (84983) Blood Glucose , Office 192 (Normal) :45 MICROALBUMIN: CREATININE RATIO Comments: PATIENT WAS FASTINGPERFORMED BY: Mass[employer] Parallel TechnologiesSt. Lawrence Rehabilitation CenterGjlyiy6432 [facility] [id number] (86156) AND (28467) Microalb/Creat Ratio 218.7 {mg/g_creat} (Abnormal) Range: 0.0-30.0 Microalbumin, Urine 359.3 ug/mL (Abnormal) Range: 0.0-17.0 Creatinine, Urine 164.3 mg/dL (Normal) Range: 22.0-328.0 :45 METABOLIC PANEL, COMPREHENSIVE Comments: PATIENT WAS FASTINGPERFORMED BY: [employer]ik6370 [facility] [id number] (81535) ALT (SGPT) 11 [iU]/L (Normal) Range: 0-55 [...] Glucose, Serum 125 mg/dL (Abnormal) Range: 65-99 2-Ocs-002213:45 LIPID PANEL (98307) Comments: PATIENT WAS FASTINGPERFORMED BY: ELIKE70 [facility] [id number] LDL/HDL Ratio 0.6 {ratio_units} (Normal) Range: 0.0-3.6 LDL Cholesterol Calc 40 mg/dL (Normal) Range: 0-99 VLDL Cholesterol Mike 12 mg/dL (Normal) Range: 5-40 HDL Cholesterol 62 mg/dL (Normal) Comments: According to ATP-III Guidelines, HDL-C >59 mg/dL is considered anegative risk factor for CHD. Triglycerides 58 mg/dL (Normal) Range: 0-149 Cholesterol, Total 114 mg/dL (Normal) Range: 100-199 1-Vkw-340952:45 CBC WITH MANUAL DIFF Comments: PATIENT WAS FASTINGPERFORMED BY: ELIKE70 [facility] [id number] Information: [id number] (24905) Immature Grans (Abs) 0.0 {x10E3/uL} (Normal) Range: [...] (Normal) Range: 4.0-10.5 :41 HgA1C , Office (24512) HgA1C , Office 5.5 % (Normal) Range: 4.6 - 7.1 :41 Blood Glucose , Office (67523) Blood Glucose , Office 148 (Normal) :00 CBC (Auto) (35310) Comments: PATIENT NOT FASTINGPERFORMED BY: LabCoSt. Lawrence Rehabilitation CenterSdsjpy6839 [facility] [id number] Information: [id number] Platelets 215 {x10E3/uL} (Normal) Range: 140-415 RDW 15.4 % (Abnormal) Range: 11.7-15.0 MCHC 32.3 g/dL (Normal) Range: 32.0-36.0 MCH 30.5 pg (Normal) Range: 27.0-34.0 MCV 94 fL (Normal) Range: 80-98 Hematocrit 39.0 % (Normal) Range: 36.0-50.0 Hemoglobin 12.6 g/dL (Normal) Range: 12.5-17.0 RBC 4.13 {x10E6/uL} (Normal) Range: 4.10-5.60 WBC 7.2 {x10E3/uL} (Normal) Range: 4.0-10.5 :13 HgA1C , Office (98599) HgA1C , Office 5.3 % (Normal) Range: 4.6 - 7.1 :13 Blood Glucose , Office (41705) Blood Glucose , Office 146 (Normal) :12 Microscopic Examination Comments: PATIENT WAS FASTINGPERFORMED BY: Meddik6370 [facility] [id number] Bacteria None seen (Normal) Mucus Threads Present (Normal) Epithelial Cells (non renal) 0-10 {/hpf} (Normal) Range: 0 - 10 RBC 0-3 {/hpf} (Normal) Range: 0 - 3 WBC 0-5 {/hpf} (Normal) Range: 0 - 5 :12 PSA (PROSTATE SPECIFIC Comments: PATIENT WAS FASTINGPERFORMED BY: Meddik6370 [facility] [id number] ANTIGEN) (V76.44) Prostate Specific Ag, 1.0 ng/mL (Normal) Range: 0.0-4.0 Serum Comments: [employer]IA methodology. .According to the [employer] U[employer] Association, Serum PSA shoulddecrease and remain [...] of malignant disease. :12 URINALYSIS, W/ MICRO (84162) Comments: PATIENT WAS FASTINGPERFORMED BY: Meddik6370 [facility] [id number] Microscopic Examination See below: (Normal) Microscopic Examination MICRON (Normal) Comments: Microscopic follows if indicated. Nitrite, Urine Negative (Normal) Urobilinogen,Semi-Qn 0.2 mg/dL (Normal) Range: 0.0-1.9 Bilirubin Negative (Normal) Ketones Negative (Normal) Occult Blood Negative (Normal) Glucose Negative (Normal) Protein Negative (Normal) WBC Esterase Negative (Normal) Appearance Clear (Normal) pH 7.5 (Normal) Range: 5.0-7.5 Urine-Color Yellow (Normal) Specific [place] 1.013 (Normal) Range: 1.005-1.030 31-Oct-20119:12 METABOLIC PANEL, COMPREHENSIVE Comments: PATIENT WAS FASTINGPERFORMED BY: LabCoSt. Lawrence Rehabilitation CenterKembjp3512 [facility] [id number] (56487) ALT (SGPT) 13 [iU]/L (Normal) Range: 0-55 [...] Glucose, Serum 102 mg/dL (Abnormal) Range: 65-99 3-Henry-22677:12 CBC WITH MANUAL DIFF Comments: PATIENT WAS FASTINGPERFORMED BY: Mass[employer] Parallel TechnologiesSt. Lawrence Rehabilitation CenterNctzny6962 [facility] [id number] Information: [id number] (75058) Immature Grans (Abs) 0.0 {x10E3/uL} (Normal) Range: [...] {x10E3/uL} (Normal) Range: 4.0-10.5 :12 LIPID PANEL (66416) Comments: PATIENT WAS FASTINGPERFORMED BY: Mass[employer] Parallel TechnologiesSt. Lawrence Rehabilitation CenterNddbun3936 [facility] [id number] LDL/HDL Ratio 0.9 {ratio_units} (Normal) Range: 0.0-3.6 LDL Cholesterol Calc 52 mg/dL (Normal) Range: 0-99 VLDL Cholesterol Mike 18 mg/dL (Normal) Range: 5-40 HDL Cholesterol 60 mg/dL (Normal) Comments: According to ATP-III Guidelines, HDL-C >59 mg/dL is considered anegative risk factor for CHD. Cholesterol, Total 130 mg/dL (Normal) Range: 100-199 Triglycerides 92 mg/dL (Normal) Range: 0-149 :32 HgA1C , Office (52500) HgA1C , Office 6.0 % (Normal) Range: 4.6 - 7.1 :32 Blood Glucose , Office (91152) Blood Glucose , Office 128 (Normal) :24 LIPID PANEL (67522) Comments: PATIENT NOT FASTINGPERFORMED BY: Mass[employer] Parallel TechnologiesSt. Lawrence Rehabilitation CenterJifkuk2773 [facility] [id number] Information: [id number] LDL Cholesterol Calc 33 mg/dL (Normal) Range: [...] Panel, Basic Comments: PATIENT NOT FASTINGPERFORMED BY: LabCoSt. Lawrence Rehabilitation CenterGzueqn8594 [facility] [id number] Information: [id number] (06814) Calcium, Serum 9.0 mg/dL (Normal) Range: 8.6-10.2 [...] 149 mg/dL (Abnormal) Range: 65-99 :56 Ferritin (18109) Comments: PATIENT NOT FASTINGPERFORMED BY: [facility] Wxydcd4602 [facility] [id number] Ferritin, Serum 221 ng/mL (Normal) Range: 30-400 19-Dgj-27355:19 Blood Glucose , Office (11575) Blood Glucose , Office 134 (Normal) 3-Wkz-976664:00 LIPID HDL 61 mg/dL (Normal) Comments: Reference [...] 200-240 mg/dL Borderline >240 mg/dL High Risk 4-Dot-451258:00 LIVER D BILI 0.13 mg/dL (Normal) Range: 0.00-0.30 T BILI 0.40 mg/dL (Normal) Range: 0.00-1.00 ALT 29 U/L (Normal) Range: 12-78 ALK P 43 U/L (Abnormal) Range: 50-136 ALB 4.1 g/dL (Normal) Range: 3.4-5.0 AST 12 U/L (Abnormal) Range: 15-37 T PROT 7.4 g/dL (Normal) Range: 6.4-8.2 4-Yuk-249645:00 BMP CL 102 mmol/L (Normal) Range: 98-107 CO2 25.0 mmol/L (Normal) Range: 21.0-32.0 GAP 10 (Normal) Range: 5-15 K 4.8 mmol/L (Normal) Range: 3.5-5.1 NA 137 mmol/L (Normal) Range: 136-145 BUN/CRE 14.4 {RATIO} (Normal) Range: 10-20 CA 9.5 mg/dL (Normal) Range: 8.5-10.1 BUN 23 mg/dL (Abnormal) Range: 7-18 CREAT,SERUM 1.6 mg/dL (Abnormal) Range: 0.8-1.3 GLU 67 mg/dL (Abnormal) Range: 70-110 24-Nrz-659407:29 HIP, MIN 2 VIEWS Radiology Report See [...] on 10/14/10 1005 Sign by: King Calderón 69-Qlh-440495:28 HIP, MIN 2 VIEWS Radiology Report See [...] by: King Calderón :01 HgA1C , Office (15273) HgA1C , Office 6.7 % (Normal) Range: 4.6 - 7.1 :01 Blood Glucose , Office (03096) Blood Glucose , Office 163 (Normal) :39 [...] mg/dL High Risk :57 HgA1C , Office (04495) HgA1C , Office 6.5 % (Normal) Range: 4.6 - 7.1 :57 Blood Glucose , Office (30881) Blood Glucose , Office 155 (Normal) :58 [...] 136-145 GLU 88 mg/dL (Normal) Range: 70-110 62-Nes-544054:32 TESTICULAR (HP) Radiology Report See Note (Normal) Comments: Exam Number: [id number] CLINICAL:This is a 70-year-old male patient with [...] testicles are unremarkable. Reported By: LOUIS SUE 98-Vme-882410:00 Urinalysis, Office (62756) UA - LEUKOCYTE ESTERASE Negative (Normal) UA - NITRITE Negative (Normal) URINE UROBILINGN CASPER TIMED Normal mg/dL (Normal) UA - PROTEIN 30 mg/dL (Normal) UA - PH 6.0 (Normal) Comments: 5.5 UA - BLOOD Negative (Normal) UA - SPECIFIC GRAVITY 1.025 (Normal) UA - KETONES Negative mg/dL (Normal) UA - BILIRUBIN Negative (Normal) UA - GLUCOSE Negative (Normal) 10-Bjv-75239:10 HgA1C , Office (67153) HgA1C , Office 5.5 % (Normal) Range: 4.6 - 7.1 46-Ufh-87674:10 Blood Glucose , Office (05169) Blood Glucose , Office 176 (Normal) 71-Wju-758810:38 ABDOMEN/PELVIS WITH CONTRAST Radiology Report See Note (Normal) Comments: Exam Number: [id number] CLINICAL:70-year-old male with abdominal pain CT ABDOMEN [...] adrenal gland. Reported By: KING CALDERÓN M.D. 72-Xcg-277024:00 CBCD ABSOLUTE NEUT 7.8 3/uL (Abnormal) Range: [...] 4.6-6.2 WBC 10.9 K/mm3 (Normal) Range: 4.4-11.0 65-Sih-173979:00 COMP METABOLIC ALK P 57 U/L (Normal) [...] CHOL 141 mg/dL (Normal) Comments: <200 mg/dL Ekopnpyyk246-032 mg/dL Borderline>240 mg/dL High Risk :33 LIVER ALK P 53 U/L (Normal) Range: 50-136 ALT 25 U/L (Normal) Range: 12-78 D BILI 0.09 mg/dL (Normal) Range: 0.00-0.30 T BILI 0.30 mg/dL (Normal) Range: 0.00-1.00 ALB 3.9 g/dL (Normal) Range: 3.4-5.0 AST 23 U/L (Normal) Range: 15-37 T PROT 7.8 g/dL (Normal) Range: 6.4-8.2 :09 HgA1C , Office ([id number]) HgA1C , Office 6.6 % (Normal) Range: 4.6 - 7.1 :09 Blood Glucose , Office ([id number]) Blood Glucose , Office 243 (Normal) :38 [...] CHOL 132 mg/dL (Normal) Comments: <200 mg/dL [id number] mg/dL Borderline>240 mg/dL High Risk :38 LIVER [...] PSA Range: 0.0-4.0 :10 HgA1C , Office ([id number]) HgA1C , Office 6.1 % (Normal) Range: 4.6 - 7.1 :10 Blood Glucose , Office ([id number]) Blood Glucose , Office 172 (Normal) [id number] LIPID CHOL 150 mg/dL (Normal) Comments: <200 [...] mg/dL VLDL 58 mg/dL (Abnormal) Range: 5-40 [id number]:00 LIVER ALB 4.0 g/dL (Normal) Range: 3.4-5.0 ALK P 50 U/L (Normal) Range: 50-136 ALT 25 U/L (Normal) Range: 12-78 Comments: Please Note: Revised Reference Range effective 09 AST 19 U/L (Normal) Range: 15-37 D BILI 0.12 mg/dL (Normal) Range: 0.00-0.30 T BILI 0.50 mg/dL (Normal) Range: 0.00-1.00 T PROT 7.7 g/dL (Normal) Range: 6.4-8.2 13-Ram-[id number]:33 CBCD,SMEAR DIFF Comments: ORDERED CBCMD LIPID CMP [...] mg/L (Normal) UR CREAT 219.8 mg/dL (Normal) [id number] Blood Glucose , Office ([id number]) Blood Glucose , Office 163 (Normal) [id number]:38 HgA1C , Office (54468) HgA1C , Office 6.0 % (Normal) Range: [...] (Normal) Range: 0.0-4.0 :06 HgA1C , Office (88392) HgA1C , Office 5.9 % (Normal) Range: 4.6 - 7.1 :06 Blood Glucose , Office (25287) Blood Glucose , Office 157 (Normal) :50 METABOLIC PANEL, COMPREHENSIVE Comments: PATIENT NOT FASTINGPERFORMED BY: [id number] [facility] [id number] ([id number]) A/G Ratio 1.6 (Normal) Range: 1.1-2.5 Albumin, [...] Serum 102 mg/dL (Abnormal) Range: 65-99 If -Micronesian >59 mL/min/1.73 Comments: Note: Persistent reduction for [...] Sodium, Serum 143 mmol/L (Normal) Range: 135-145 69-Dsy-699861:50 CBC WITH MANUAL DIFF (52334) Comments: PATIENT NOT FASTINGClinical Information: ADD DRAW FEE [id number] ADD J [id number] PERFORMED BY: [facility] [id number] Baso (Absolute) 0.0 {x10E3/uL} (Normal) Range: 0.0-0.2 [...] (Normal) Range: 4.0-10.5 :11 HgA1C , Office (32279) HgA1C , Office 5.6 % (Normal) Range: 4.6 - 7.1 :11 Blood Glucose , Office (94703) Blood Glucose , Office 101 (Normal) :55 HgA1C , Office (52626) HgA1C , Office 5.9 % (Normal) Range: 4.6 - 7.1 :55 Blood Glucose , Office (47528) Blood Glucose , Office 104 (Normal) :23 Billing Information Required Comments: TEST(S) ORDERED: [id number]-Wfudikpo-Giflvgvq Ag, SerumPATIENT NOT FASTINGClinical Information: ADD DRAW FEE [id number] ADD J [id number] PERFORMED BY: [facility] [id number] [facility] (Normal) Comments: To enable [facility] to file an insurance claim on behalf of yourpatient, please provide or update as indicated the required billinginformation listed below. The HIPAA Privacy regulation at 45 DJQ356.506 (c) (3) provides that a covered entity (Physician's Office/Referring Provider) may disclose PHI to another covered entity([facility]) for purposes of payment without patient authorization. .Please provide requested information and return via your servicerepresentative or fax to [phone] within 3 days. :23 Billing Information Required Comments: TEST(S) ORDERED: [id number]-Dhrlrvtc-Jtdtqbei Ag, SerumPATIENT NOT FASTINGPERFORMED BY: [facility] [id number] Highest Level of SPRCS Comments: Information Submitted: NOT GIVENPlease Provide: Diagnosis Code, Signs or Symptoms in ICD9 format at the highest level of specificity.Updated/Corrected Information: Specificity (Normal) __Physician/Designee Signature: Date: 6-Czi-717733:23 PSA (PROSTATE SPECIFIC Comments: PATIENT NOT FASTINGClinical Information: ADD DRAW FEE [id number] ADD J 65228 [facility]FORMED [facility]: [facility] [id number] ANTIGEN) (V76.44) Prostate Specific Ag, Serum 1.1 ng/mL (Normal) Range: 0.0-4.0 Comments: Mahindra REVA (formerly REPP) ICMA methodology. .EFFECTIVE March 30, 2008, PSA will be changing to the Erik ECLIA methodology. R ebaselining will be offered for 90 days using panel 072665. The second result, provided by the Mahindra REVA ICMA methodology will be provided at no charge. 2-Utb-579321:19 HgA1C , Office (87144) HgA1C , Office 6.1 % (Normal) Range: 4.6 - 7.1 :19 Blood Glucose , Office (86672) Blood Glucose , Office 248 (Normal) :23 [...] T PROT 6.9 g/dL (Normal) Range: 6.4-8.2 9-Apr-14385:50 CBCD,SMEAR DIFF CELLS COUNTED 100 (Normal) EOS [...] 228.3 mg/dL (Normal) :51 HgA1C , Office (59378) HgA1C , Office 5.7 % (Normal) Range: 4.6 - 7.1 Comments: :51 Blood Glucose , Office (54944) Blood Glucose , Office 197 (Normal) Comments: aw :41 TROPONIN-I 0.04 ng/mL (Normal) Comments: TROPONIN-I EXPECTED VALUES < 0.50 NEGATIVE 0.50 - 1.49 INDETERMINANT > OR = 1.50 SUGGEST RI :40 BMP Comments: COMMENTS: BONEZZIINDICATE CK '1', [...] 1.49 INDETERMINANT > OR = 1.50 SUGGEST RI :41 BMP BUN 19 mg/dL (Abnormal) Range: [...] 1.49 INDETERMINANT > OR = 1.50 SUGGEST RI :30 PROTEIN,UR.RAN. 22.8 mg/dL (Abnormal) Comments: HOLD [...] AMI > 5 > 4 :10 SPE [id number] A/G RATIO 1.2 (Normal) Range: 0.7-2.0 ALBUMIN [...] Evidenceof monoclonal protein is not apparent.Performed At: [facility] [place], [place] [id number] M-SPIKE SeeNote g/dL (Normal) Comments: Result: Not Observed NOTE: Comment (Normal) Comments: Protein electrophoresis scan will follow via mail orcourier. PROTEIN,TOTAL 6.9 g/dL (Normal) Range: 6.0-8.5 :10 TROPONIN-I < 0.04 ng/mL (Normal) Comments: INDICATE CK '1', '2', '3', OR 'R' FOR RANDOM: 2 Comments: TROPONIN-I EXPECTED VALUES < 0.50 NEGATIVE 0.50 - 1.49 INDETERMINANT > OR = 1.50 SUGGEST RI :50 PRO TIME INR 1.0 (Normal) PROTIME 12.2 s (Normal) Range: 10.6-13.2 :50 TROPONIN-I < 0.04 ng/mL (Normal) Comments: TROPONIN-I EXPECTED VALUES < 0.50 NEGATIVE 0.50 - 1.49 INDETERMINANT > OR = 1.50 SUGGEST RI :08 SHONDA 38 U/L (Normal) Comments: COMMENTS: 6 DR ÚNÑEZ Range: 25-115 :08 B-TYPE JUSTIN PEP 143.0 [...] 1.49 INDETERMINANT > OR = 1.50 SUGGEST RI :30 CHEST WITHOUT CONTRAST Radiology Report See Note (Normal) Comments: Exam Number: [id number] CT HIGH RESOLUTION OF CHEST WITHOUT CONTRAST [...] DENISSE URIAS M.D. :13 HgA1C , Office (92505) HgA1C , Office 6.5 % (Normal) Range: 4.6 - 7.1 :13 Blood Glucose , Office (92523) Blood Glucose , Office 124 (Normal) :59 [...] Report See Note (Normal) Comments: Exam Number: [id number] PA AND LATERAL CHEST HISTORY Being done for cough. FINDINGSCardiac configuration is normal. No acute infiltrate, effusion, orpneumothorax is identified. There is a pacema ker noted in the leftanterior chest. No abnormality is noted in the leads as demonstrated. IMPRESSION1. No acute change noted in the lungs. 2. Little if any change from 09/04/06. Reported By: AMANDO NANCE M.D. 2-Vwm-750363:00 C DIF See Note (Normal) Comments: C. [...] (Normal) Range: 5-40 :35 HgA1C , Office (04410) HgA1C , Office 5.6 % (Normal) Range: [...] - 1.0 :39 Blood Glucose , Office (28512) Blood Glucose , Office 161 (Normal) :39 HgA1C , Office (98157) HgA1C , Office 5.7 % (Normal) Range: [...] swelling : Follow up 3 days with [facility] Indication: Leg swelling RLS (restless legs [...] Wheezing Planned Observations CBC WITH MANUAL DIFF (19587)Indication: CKD (chronic kidney disease), stage 3 (moderate) On: 02-Jan-2021 Request Comments: standing order q 3 months MAGNESIUM (81212)Indication: CKD (chronic kidney disease), stage 3 (moderate) On: 02-Jan-2021 Request Comments: standing order q 3 months PARATHORMONE (44571)Indication: CKD (chronic kidney disease), stage 3 (moderate) On: 02-Jan-2021 Request Comments: standing order q 3 months PHOSPHORUS ([id number])Indication: CKD (chronic kidney disease), stage 3 (moderate) On: 02-Jan-2021 Request Comments: standing order q 3 months Renal function Panel (30870)Indication: CKD (chronic kidney disease), stage 3 (moderate) On: 02-Jan-2021 Request Comments: standing order q 3 months CBC WITH MANUAL DIFF (55198)Indication: CKD (chronic kidney disease), stage 3 (moderate) On: 04-Oct-2020 Request Comments: standing order q 3 months MAGNESIUM ([id number])Indication: CKD (chronic kidney disease), stage 3 (moderate) On: 04-Oct-2020 Request Comments: standing order q 3 months PARATHORMONE ([id number])Indication: CKD (chronic kidney disease), stage 3 (moderate) On: 04-Oct-2020 Request Comments: standing order q 3 months PHOSPHORUS ([id number])Indication: CKD (chronic kidney disease), stage 3 (moderate) On: 04-Oct-2020 Request Comments: standing order q 3 months Renal function Panel (61872)Indication: CKD (chronic kidney disease), stage 3 (moderate) On: 04-Oct-2020 Request Comments: standing order q 3 months CBC WITH MANUAL DIFF ([id number])Indication: CKD (chronic kidney disease), stage 3 (moderate) On: 06-Jul-2020 Request Comments: standing order q 3 months MAGNESIUM ([id number])Indication: CKD (chronic kidney disease), stage 3 (moderate) On: 06-Jul-2020 Request Comments: standing order q 3 months PARATHORMONE ([id number])Indication: CKD (chronic kidney disease), stage 3 (moderate) On: 06-Jul-2020 Request Comments: standing order q 3 months PHOSPHORUS ([id number])Indication: CKD (chronic kidney disease), stage 3 (moderate) On: 06-Jul-2020 Request Comments: standing order q 3 months Renal function Panel ([id number])Indication: CKD (chronic kidney disease), stage 3 (moderate) On: 06-Jul-2020 Request Comments: standing order q 3 months CBC WITH MANUAL DIFF ([id number])Indication: CKD (chronic kidney disease), stage 3 (moderate) On: 07-Apr-2020 Request Comments: standing order q 3 months MAGNESIUM ([id number])Indication: CKD (chronic kidney disease), stage 3 (moderate) On: 07-Apr-2020 Request Comments: standing order q 3 months PARATHORMONE ([id number])Indication: CKD (chronic kidney disease), stage 3 (moderate) On: 07-Apr-2020 Request Comments: standing order q 3 months PHOSPHORUS ([id number])Indication: CKD (chronic kidney disease), stage 3 (moderate) On: 07-Apr-2020 Request Comments: standing order q 3 months Renal function Panel ([id number])Indication: CKD (chronic kidney disease), stage 3 (moderate) On: 07-Apr-2020 Request Comments: standing order q 3 months CBC WITH MANUAL DIFF ([id number])Indication: CKD (chronic kidney disease), stage 3 (moderate) On: 08-Jan-2020 Request Comments: standing order q 3 months MAGNESIUM ([id number])Indication: CKD (chronic kidney disease), stage 3 (moderate) On: 08-Jan-2020 Request Comments: standing order q 3 months PARATHORMONE ([id number])Indication: CKD (chronic kidney disease), stage 3 (moderate) On: 08-Jan-2020 Request Comments: standing order q 3 months PHOSPHORUS ([id number])Indication: CKD (chronic kidney disease), stage 3 (moderate) On: 08-Jan-2020 Request Comments: standing order q 3 months Renal function Panel ([id number])Indication: CKD (chronic kidney disease), stage 3 (moderate) On: 08-Jan-2020 Request Comments: standing order q 3 months CBC WITH MANUAL DIFF ([id number])Indication: CKD (chronic kidney disease), stage 3 (moderate) On: 10-Oct-2019 Request Comments: standing order q 3 months MAGNESIUM ([id number])Indication: CKD (chronic kidney disease), stage 3 (moderate) On: 10-Oct-2019 Request Comments: standing order q 3 months PARATHORMONE ([id number])Indication: CKD (chronic kidney disease), stage 3 (moderate) On: 10-Oct-2019 Request Comments: standing order q 3 months PHOSPHORUS ([id number])Indication: CKD (chronic kidney disease), stage 3 (moderate) On: 10-Oct-2019 Request Comments: standing order q 3 months Renal function Panel ([id number])Indication: CKD (chronic kidney disease), stage 3 (moderate) On: 10-Oct-2019 Request Comments: standing order q 3 months CBC WITH MANUAL DIFF ([id number])Indication: CKD (chronic kidney disease), stage 3 (moderate) On: 12-Jul-2019 Request Comments: standing order q 3 months MAGNESIUM ([id number])Indication: CKD (chronic kidney disease), stage 3 (moderate) On: 12-Jul-2019 Request Comments: standing order q 3 months PARATHORMONE ([id number])Indication: CKD (chronic kidney disease), stage 3 (moderate) On: 12-Jul-2019 Request Comments: standing order q 3 months PHOSPHORUS ([id number])Indication: CKD (chronic kidney disease), stage 3 (moderate) On: 12-Jul-2019 Request Comments: standing order q 3 months Renal function Panel ([id number])Indication: CKD (chronic kidney disease), stage 3 (moderate) On: 12-Jul-2019 Request Comments: standing order q 3 months CBC WITH MANUAL DIFF ([id number])Indication: CKD (chronic kidney disease), stage 3 (moderate) On: 13-Apr-2019 Request Comments: standing order q 3 months MAGNESIUM ([id number])Indication: CKD (chronic kidney disease), stage 3 (moderate) On: 13-Apr-2019 Request Comments: standing order q 3 months PARATHORMONE ([id number])Indication: CKD (chronic kidney disease), stage 3 (moderate) On: 13-Apr-2019 Request Comments: standing order q 3 months PHOSPHORUS ([id number])Indication: CKD (chronic kidney disease), stage 3 (moderate) On: 13-Apr-2019 Request Comments: standing order q 3 months Renal function Panel ([id number])Indication: CKD (chronic kidney disease), stage 3 (moderate) On: 13-Apr-2019 Request Comments: standing order q 3 months CBC WITH MANUAL DIFF ([id number])Indication: CKD (chronic kidney disease), stage 3 (moderate) On: 13-Jan-2019 Request Comments: standing order q 3 months MAGNESIUM ([id number])Indication: CKD (chronic kidney disease), stage 3 (moderate) On: 13-Jan-2019 Request Comments: standing order q 3 months PARATHORMONE ([id number])Indication: CKD (chronic kidney disease), stage 3 (moderate) On: 13-Jan-2019 Request Comments: standing order q 3 months PHOSPHORUS ([id number])Indication: CKD (chronic kidney disease), stage 3 (moderate) On: 13-Jan-2019 Request Comments: standing order q 3 months HEPATIC FUNCTION PANEL ([id number])Indication: Diabetes mellitus with chronic kidney disease On: :40 Request HgA1C , Office (05349)Indication: Diabetes mellitus with chronic kidney disease On: 50-Qbt-612821:37 Request CBC WITH MANUAL DIFF ([id number])Indication: CKD (chronic kidney disease), stage 3 (moderate) On: :36 Request Comments: standing order q 3 months PHOSPHORUS ([id number])Indication: CKD (chronic kidney disease), stage 3 (moderate) On: 30-Uns-660835:36 Request Comments: standing order q 3 months MAGNESIUM ([id number])Indication: CKD (chronic kidney disease), stage 3 (moderate) On: :36 Request Comments: standing order q 3 months Renal function Panel ([id number])Indication: CKD (chronic kidney disease), stage 3 (moderate) On: 66-Zbf-971448:36 Request Comments: standing order q 3 months PREALBUMIN ([id number])Indication: Anorexia On: :36 Request MAGNESIUM (36254)Indication: CKD (chronic kidney disease), stage 3 (moderate) On: 15-Oct-2018 Request Comments: standing order q 3 months PARATHORMONE ([id number])Indication: CKD (chronic kidney disease), stage 3 (moderate) On: 15-Oct-2018 Request Comments: standing order q 3 months Keppra ([id number])Indication: Seizure On: 07-Deq-718022:02 Request Comments: send all labs stat TSH ([id number])Indication: Cardiac dysrhythmia On: 06-Fgj-78219:40 Request Troponin I (74119)Indication: Episode of syncope On: 88-Fku-07197:39 Request BNTP (07484)Indication: Episode of syncope On: 07-Snw-09044:39 Request CBC (Auto) ([id number])Indication: Episode of syncope On: 87-Zap-68824:38 Request Metabolic Panel, Comprehensive (77541)Indication: Episode of syncope On: 53-Epb-30517:38 Request Keppra ([id number])Indication: Seizure On: 53-Ouz-899533:57 Request Comments: all copies to Dr. jung CBC WITH MANUAL DIFF ([id number])Indication: CKD (chronic kidney disease), stage 3 (moderate) On: :57 Request Comments: standing order q 3 months PHOSPHORUS ([id number])Indication: CKD (chronic kidney disease), stage 3 (moderate) On: :57 Request Comments: standing order q 3 months PARATHORMONE ([id number])Indication: CKD (chronic kidney disease), stage 3 (moderate) On: :57 Request Comments: standing order q 3 months Renal function Panel (14406)Indication: CKD (chronic kidney disease), stage 3 (moderate) On: :57 Request Comments: standing order q 3 months Metabolic Panel, Basic (54210)Indication: Hypertension On: :34 Request Platelet 99940 (citrate, nonclumping tube)Indication: Thrombocytopenia On: 43-Wjt-607637:25 Request Keppra (00630)Indication: Generally unsteady On: 16-Rgb-463031:20 Request Comments: Dr. Jung copy to him Methymalonic Acid, Serum (48538)Indication: CKD (chronic kidney disease), stage 3 (moderate) On: :35 Request Vitamin B-12 (cyanocobalamin) (77356)Indication: CKD (chronic kidney disease), stage 3 (moderate) On: :35 Request FIBRIN DEGRAD SLIDE AGGL (69364)Indication: Abnormal platelet aggregation On: :19 Request LDH (LD) (LACTATE DEHYDROGENASE) (48561)Indication: Abnormal platelet aggregation On: :13 Request Platelet Count (72413)Indication: Abnormal platelet aggregation On: :12 Request Comments: PLEASE DRAW IN CITRATE TUBE Renal function Panel (44953)Indication: Hypotension, postural On: :46 Request CBC, Platelets & Auto Diff (80237)Indication: Hypotension, postural On: :45 Request Troponin I (59339)Indication: Hypotension, postural On: :45 Request TSH (38588)Indication: Hypotension, postural On: :43 Request PHOSPHORUS (86267)Indication: CKD (chronic kidney disease), stage 3 (moderate) On: 99-Ltw-299180:23 Request Comments: standing order q 3 months Troponin I (03377)Indication: History of CHF (congestive heart failure) On: 37-Isi-935158:54 Request Renal function Panel (03424)Indication: History of CHF (congestive heart failure) On: 32-Vhw-666882:54 Request TSH (36613)Indication: Hypothyroid On: 05-Yts-477606:50 Request METABOLIC PANEL, COMPREHENSIVE (55945)Indication: Diabetes mellitus with chronic kidney disease On: 36-Hnq-801918:50 Request MICROALBUMIN: CREATININE RATIO (04469) AND (62801)Indication: CKD (chronic kidney disease), stage 3 (moderate) On: :41 Request Comments: copy to Dr. Murcia [phone] Parathyroid Hormone-related Peptide (PTH-rP) (67849)Indication: CKD (chronic kidney disease), stage 3 (moderate) On: :41 Request Comments: copy to Dr. Murcia [phone] URINALYSIS, W/ MICRO (47123)Indication: Diabetes mellitus with chronic kidney disease On: :47 Request Comments: 07-15 METABOLIC PANEL, COMPREHENSIVE (55620)Indication: Diabetes mellitus with chronic kidney disease On: :47 Request Comments: 07-15 LIPOPROTEIN, BLD, BY NMR (92911)Indication: Diabetes mellitus with chronic kidney disease On: :46 Request Comments: 07-15 CBC with auto diff (82623)Indication: Diabetes mellitus with chronic kidney disease On: :46 Request Comments: 07-15 ANCA-P (ANTI NEUTROPHIL CYTOPLASMIC ANTIBODY)Indication: CKD (chronic kidney disease), stage 3 (moderate) On: :38 Request PSA (PROSTATE SPECIFIC ANTIGEN) (V76.44)Indication: Screening for prostate cancer On: 41-Wya-286185:13 Request Comments: 06-14 PARATHORMONE (72887)Indication: CKD (chronic kidney disease), stage 3 (moderate) On: 10-Mfj-52644:51 Request Magnesium (04587)Indication: CKD (chronic kidney disease), stage 3 (moderate) On: :51 Request CALCIFIDIOL (80122) VIT D 25Indication: CKD (chronic kidney disease), stage 3 (moderate) On: :51 Request Total Protein,24 Hour Urine (63116)Indication: CKD (chronic kidney disease), stage 3 (moderate) On: :50 Request CREATININE CLEARANCE (91518)Indication: CKD (chronic kidney disease), stage 3 (moderate) On: :50 Request Metabolic Panel, Basic (70973)Indication: Cardiomyopathy On: :30 Request Comments: 2 weeks METABOLIC PANEL, COMPREHENSIVE (80225)Indication: Hypertension On: :30 Request Comments: in three months (approximately) CBC with auto diff (34467)Indication: Hypertension On: :29 Request Comments: in three months (approximately) METABOLIC PANEL, BASIC (53788)Indication: Diabetes mellitus with chronic kidney disease On: 94-Mgd-917183:05 Request Comments: recheck in 2 wks HGB A1C (38395)Indication: Diabetes mellitus with chronic kidney disease On: 56-Ypo-296695:01 Request MAGNESIUM (34851)Indication: Hypomagnesemia On: :53 Request LIPID PANEL (82175)Indication: Hypertension On: :53 Request Comments: copy to Dr. harmon TSH (88930)Indication: Hypothyroid On: :53 Request METABOLIC PANEL, COMPREHENSIVE (96347)Indication: Hypertension On: :53 Request CBC with auto diff (81753)Indication: Hypertension On: :52 Request CBC (Auto) (85892)Indication: Hypertension On: 87-Dwe-109559:44 Request Comments: in three months (approximately) Renal function Panel (74184)Indication: Hypertension On: :44 Request Comments: in three months (approximately) Metabolic Panel, Basic (78328)Indication: Hypertension On: :30 Request METABOLIC PANEL, BASIC (92536)Indication: Hypertension On: :37 Request Comments: Forward to Val Almeida at [facility] at fax [phone] also PSA (PROSTATE SPECIFIC ANTIGEN) (V76.44)Indication: Encounter for health maintenance examination with abnormal findings On: 17-Yhj-248765:11 Request Comments: due 07-12 MICROALBUMIN: CREATININE RATIO (78168) AND (89030)Indication: Diabetic nephropathy On: :39 Request METABOLIC PANEL, COMPREHENSIVE (81828)Indication: Diabetes mellitus type II, controlled On: 7-Nbd-402678:39 Request URINALYSIS, W/ MICRO (09086)Indication: Diabetes mellitus type II, controlled On: 80-Jro-44604:56 Request METABOLIC PANEL, COMPREHENSIVE (57401)Indication: Diabetes mellitus type II, controlled On: :56 Request CBC WITH MANUAL DIFF (39183)Indication: Diabetes mellitus type II, controlled On: :56 Request HgA1C , Office (81023)Indication: Diabetes mellitus type II, controlled On: :19 Request Metabolic Panel, Basic (21874)Indication: Cardiomyopathy On: :01 Request LIPID PANEL (37138)Indication: Diabetes mellitus with chronic kidney disease On: :30 Request METABOLIC PANEL, COMPREHENSIVE (40698)Indication: Diabetes mellitus with chronic kidney disease On: :30 Request CBC WITH MANUAL DIFF (91003)Indication: Diabetes mellitus with chronic kidney disease On: :30 Request Comments: copy Dr. hu CREATININE CLEARANCE (54863)Indication: Renal insufficiency On: :06 Request 24 hour urine for Protein (88775)Indication: Renal insufficiency On: :06 Request Metabolic Panel, Basic (21013)Indication: Renal insufficiency On: :05 Request Metabolic Panel, Basic (06741)Indication: Renal insufficiency On: 60-Eje-478892:03 Request Urinalysis, Office (54404)Indication: Cystitis, acute On: 44-Wdn-868609:37 Request URINE LIBORIO CULTURE-CASPER COL COUNT (05219)Indication: Cystitis, acute On: :37 Request CBC, Platelets & Auto Diff (53345)Indication: Cramp in limb On: :44 Request Vitamin B-12 (cyanocobalamin) (45733)Indication: Cramp in limb On: :44 Request Metabolic Panel, Comprehensive (79701)Indication: Cramp in limb On: :44 Request METABOLIC PANEL, COMPREHENSIVE (40243)Indication: Diabetes mellitus type II, controlled On: 9-Ltz-805834:50 Request LIPID PANEL (92410)Indication: Diabetes mellitus type II, controlled On: 5-Nqe-496043:50 Request Comments: in three months (approximately) PSA (PROSTATE SPECIFIC ANTIGEN) (V76.44)Indication: Diabetes mellitus type II, controlled On: :30 Request CBC WITH MANUAL DIFF (20322)Indication: Diabetes mellitus type II, controlled On: :29 Request MICROALBUMIN: CREATININE RATIO (23414) AND (12793)Indication: Diabetes mellitus type II, controlled On: :29 Request Metabolic Panel, Basic (19907)Indication: Diabetes mellitus type II, controlled On: :29 Request MICROALBUMIN: CREATININE RATIO (82997) AND (43567)Indication: Diabetes mellitus type II, controlled On: 58-Qvs-268502:53 Request METABOLIC PANEL, COMPREHENSIVE (39531)Indication: Diabetes mellitus type II, controlled On: 50-Izb-273902:53 Request LIPID PANEL (96221)Indication: Diabetes mellitus type II, controlled On: 19-Zye-077937:53 Request CBC WITH MANUAL DIFF (02101)Indication: Diabetes mellitus type II, controlled On: 54-Iyw-521049:53 Request Comments: in three months (approximately) PSA (PROSTATE SPECIFIC ANTIGEN) (V76.44)Indication: Well Male On: :32 Request MICROALBUMIN: CREATININE RATIO (64752) AND (08438)Indication: Diabetes mellitus type II, controlled On: :32 Request METABOLIC PANEL, COMPREHENSIVE (66416)Indication: Diabetes mellitus type II, controlled On: :32 Request CBC WITH MANUAL DIFF (89658)Indication: Diabetes mellitus type II, controlled On: :32 Request LIPID PANEL (00032)Indication: Diabetes mellitus type II, controlled On: 57-Ryn-527421:32 Request URINALYSIS W/O MICRO (94524)Indication: Cardiomyopathy On: :22 Request Metabolic Panel, Basic (77149)Indication: Hypertension On: :12 Request Comments: sept CBC (Auto) (51358)Indication: Diabetes mellitus type II, controlled On: 0-Sig-537993:10 Request Metabolic Panel, Comprehensive (27770)Indication: Diabetes mellitus type II, controlled On: 1-Oqk-938741:10 Request MICROALBUMIN: CREATININE RATIO (35282) AND (47208)Indication: Diabetes mellitus type II, controlled On: :12 Request CBC WITH MANUAL DIFF (77247)Indication: Diabetes mellitus type II, controlled On: :12 Request Comments: in three months (approximately) METABOLIC PANEL, COMPREHENSIVE (53646)Indication: Diabetes mellitus type II, controlled On: :12 Request LIPID PANEL (00985)Indication: Hypertension On: :08 Request METABOLIC PANEL, COMPREHENSIVE (24031)Indication: Hypertension On: :08 Request METABOLIC PANEL, BASIC (14928)Indication: Acute renal failure, unspecified acute renal failure type On: :01 Request Comments: with next blood draw PSA (PROSTATE SPECIFIC ANTIGEN) (66829)Indication: Encounter for health maintenance examination with abnormal findings On: 8-Kwh-160798:55 Request Comments: after 09-20-06 MICROALBUMIN 24 HOUR OR RANDOM (62960)Indication: DIABETIC NEPHROPATHY On: :49 Request CREATININE CLEARANCE (89790)Indication: DIABETIC NEPHROPATHY On: 1-Hgd-620075:49 Request Planned Procedures ELECTROCARDIOGRAM, COMPLETE (ECG) On: 17-Sep-2018 Intent (44628)By: Anabella Núñez MD Comments: see scanned document of test done to see results reviewed today with patient Anabella ROGERS INFUSION OF 0.9% SODIUM CHLORIDE On: 25-Apr-2018 Intent SOLUTION (80702)By: Anabella Núñez MD Comments: lot:[id number]:rte:IV right anticub dose:250ccgiven by:aaliyah KAMARA ABN signedER, Anabella Ibanez MD ELECTROCARDIOGRAM, COMPLETE (ECG) On: 25-Apr-2018 Intent ([id number])By: Anabella Núñez MD Comments: see scanned document of test done to see results reviewed today with patient Anabella ROGERS INFUSION, NORMAL SALINE SOLUTION , On: 18-Jan-2018 Intent 1000 CC (Special Coverage Instructions Comments: lot:[id number]:01/15rte:IV dose: 500ml sodium chloride given by: wandersssusana left fore arm ABN signedER, GASOLINE CATALYST OPERATOR Apply. See MCM: 2048) ([id number])By: Anabella Núñez MD, MD, Dana M Radiology - Chest- PA and LatBy: Fast On: 09-Jan-2018 Delisa Pittman DO Comments: stat call results Spirometry ([id number])By: Delisa Gordon DO On: 06-Jun-2017 Intent A Comments: good effort and curve with decrease in small airways Radiology - Chest- PA and LatBy: Fast On: 06-Jun-2017 Delisa Pittman DO Comments: stat call rsutls Ultrasound - RenalBy: Anabella Núñez MD On: 06-Sep-2016 Intent Anabella Tirado MD Aerosol Treatment ([id number])By: Mynor On: 15-Feb-2016 Intent Daria LION Radiology - ChestBy: Daria Lowe CNP On: 13-Sep-2015 Intent Solu -Medrol Injection, 125 mg On: 13-Sep-2015 Intent ([id number])By: Daria Lowe CNP Comments: lot:[id number]:12/2017route:IMdose:125mgsite:Blaine nobleDSMA Carmela Aerosol Treatment ([id number])By: Mynor On: 13-Sep-2015 Intent Daria LION Comments: patient tolerated well Aerosol Treatment ([id number])By: Dami On: 07-Sep-2015 Intent Anabella ROGERS MD, Dana M Prevnar 13 ([id number])By: Dami ROGERS, On: 16-Oct-2014 Intent Anabella Turcios MD ADMINISTRATION OF INFLUENZA VIRUS On: 04-Aug-2014 Intent VACCINE (G0008)By: Visit, Nurse Comments: Lot #[id number]-L dltd, IMDose prefilled syringegiven by:Madelaine and ABN signed FLU VAC, SPLIT, >3 YEARS, INTRAMUSC On: 04-Aug-2014 Intent ([id number])By: Elizabeth, Nurse Radiology - ChestBy: Anabella Núñez MD On: 20-Jan-2014 Intent Anabella Tirado MD Aerosol Treatment ([id number])By: Dami On: 20-Jan-2014 Intent Anabella ROGERS MD, Dana M Eprescribed prescriptions ([id number])By: On: 20-Jan-2014 Intent Anabella Núñez MD, MD, Dana M FLU VAC, SPLIT, >3 YEARS, INTRAMUSC On: 10-Jul-2013 Intent (52765)By: MATILDA Hernandez Comments: Lot #:[id number] date:6.14Amount given:0.5mlRoute: IMSite given:L DltdGiven by: NAS and ABN signed ADMINISTRATION OF INFLUENZA VIRUS On: 10-Jul-2013 Intent VACCINE (G0008)By: MATILDA Hernandez Eprescribed prescriptions ([id number])By: On: 11-Dec-2012 Intent Delisa Gordon DO Pulse Oximetry ([id number])By: Evan BARFIELD, On: 11-Dec-2012 Intent Delisa Monte Comments: 98 Spirometry ([id number])By: Delisa Gordon DO On: 11-Dec-2012 Intent A Comments: good effort and curve normal Radiology - Chest- PA and LatBy: Fast On: 11-Dec-2012 Delisa Pittman DO Comments: call wet read Eprescribed prescriptions ([id number])By: On: 18-Nov-2012 Intent La Nena Nicole DO TDAP VACCINE >7 IM ([id number])By: David, On: 20-Feb-2012 Intent MATILDA Comments: Lot #:[id number] date:75-18-13Bknayz given:0.5mlRoute: IMSite given:right deltoid Given by: aaliyah kamara Pulse Oximetry ([id number])By: Mynor LION On: 17-Oct-2011 Intent Simona Aerosol Treatment ([id number])By: Mynor On: 17-Oct-2011 Intent Daria LION FLU VAC, SPLIT, >3 YEARS, INTRAMUSC On: 08-Aug-2011 Intent ([id number])By: Diana Caballero RN Comments: Lot #: [id number] date: 04/09Amount given: 0.5 mlRoute: IMSite given: left deltoidGiven by: BEKA Dc ADMINISTRATION OF INFLUENZA VIRUS On: 08-Aug-2011 Intent VACCINE (G0008)By: Diana Caballero RN Radiology - Hip - BilateralBy: Dami On: 13-Oct-2010 Intent Anabella ROGERS MD, Dana M Spirometry ([id number])By: Dami ROGERS, On: 13-Oct-2010 Intent Anabella Turcios MD Pulse Oximetry ([id number])By: Dami ROGERS, On: 13-Oct-2010 Intent Anabella Turcios MD FLU VAC, SPLIT, >3 YEARS, INTRAMUSC On: 05-Sep-2010 Intent ([id number])By: Dasha Ramirez LPN Comments: Lot #[id number]-right deltoidgiven by:[facility] ADMINISTRATION OF INFLUENZA VIRUS On: 05-Sep-2010 Intent VACCINE (G0008)By: Dasha Ramirez LPN Renal DopplerBy: Anabella Núñez MD On: 23-May-2010 Intent Anabella Núñez MD Ultrasound - TesticularBy: Mynor LION, On: 10-May-[address] - Abdomen & Pelvis (IV Contrast On: 09-May-2010 Intent Needed)By: Daria Lowe CNP Comments: today call wet read to [facility] ADMINISTRATION OF INFLUENZA VIRUS On: 26-Jul-2009 Intent VACCINE (G0008)By: Anabella Núñez MD Comments: lot # [id number]- [id number]-[id number]- 0.5ML Tolerated well Anabella Da Silva MA, MD FLU VAC, SPLIT, >3 YEARS, INTRAMUSC On: 26-Jul-2009 Intent ([id number])By: Anabella Núñez MD, MD, Dana M EKG ([id number])By: Gabriela Douglas On: 19-Jun-2008 Intent EsophagramBy: Anabella Núñez MD On: 20-Nov-2007 Intent Anabella Núñez MD Inhaler Demonstration ([id number])By: On: 02-Oct-2007 Intent Daria Lowe CNP Pulse Oximetry ([id number])By: Mynor LION, On: 02-Oct-2007 Intent Daria Otto Aerosol Treatment ([id number])By: Mynor On: 02-Oct-2007 Intent Daria LION Six Minute Walk Assessment (18869)By: On: 27-Feb-2007 Intent Dhara Oquendo LPN Comments: ABN signed Inhaler Demo ([id number])By: Delisa Gordon DO On: 18-Feb-2007 Intent A Pulse Oximetry ([id number])By: DILSHAD LION, On: 31-Jan-2007 Intent MARIO Comments: 96% Aerosol Treatment ([id number])By: DILSHAD On: 31-Jan-2007 Intent MARIO LION Solu- Medrol Injection, 125mg On: 31-Jan-2007 Intent ([id number])By: MARIO YUNG CNP Aerosol Treatment ([id number])By: Evan BARFIELD, On: 28-Jan-2007 Toya Monte Inhaler Demo (07283)By: Delisa Gordon DO On: 28-Jan-2007 Intent [facility] Radiology - Chest- PA and LatBy: Evan On: 28-Jan-2007 Delisa Pittman DO Spirometry ([id number])By: Delisa Gordon DO On: 28-Jan-2007 Intent Lavell Comments: good effort and curve- mild obstruction Pulse Oximetry ([id number])By: Gene, On: 28-Jan-2007 Intent Rolanda Comments: ins waiver [id number] initially - after tx was 95 Planned [...] for health maintenance examination with abnormal findings RI (myocardial infarction) : How to access health information online Indication: RI (myocardial infarction) RI (myocardial infarction) : How to access health information online - Detail Indication: RI (myocardial infarction) RI (myocardial infarction) : Patient Instructions Indication: RI (myocardial infarction) Allergic rhinitis : Patient Instructions [...] CHF (congestive heart failure), Abnormal laboratory test, RI (myocardial infarction) , Sensorineural hearing loss (SNHL) [...] Erectile dysfunction, Memory loss, Subdural hemorrhage, Nonsmoker, RI (myocardial infarction), Peripheral vascular disease, CKD (chronic [...] both ears, Memory loss, Abnormal laboratory test, RI (myocardial infarction), Erectile dysfunction, Peripheral vascular disease, [...] alcohol, Diabetes mellitus with chronic kidney disease, RI (myocardial infarction), Uncoordinated movements, Memory loss, Obesity, [...] breathing- wheezing though- cxr noted ok in februaryEncount Diagnosis: BMI 29.0-29.9,adult , History of tobacco abuse, Right lower lobe pneumonia [facility] Historical Summary On: 18-Apr-2017 9:33 Encounter Diagnosis: RI (myocardial infarction) End: 18-Apr-2017 9:36 [facility] [...] syndrome), Uncoordinated movements, Hyperplasia, prostate, Macrocytosis, Hypertension, RI (myocardial infarction), Hypothyroid, Erectile dysfunction, Allergic rhinitis, [...] patient does h ave durable power of district attorney and living will. The patient has noticed thinking most people are better off than them (due to heart concerns) and nothing from the geriatic depression scale. Other provide rs contributing to the patient's care are passenger car upholsterer apprentice (fritz) and other: (iDvina, kidney). Encounter Diagnosis: BMI 30.0-30.9,adult, Hyperplasia, prostate, RI (myocardial infarction), Allergic rhinitis, Macrocytosis, Cardiomyopathy, Obstructive [...] Testicular hypofunction, Hypothyroid, Erectile dysfunction, Allergic rhinitis, RI (myocardial infarction), Hyperplasia, prostate, Macrocytosis, Gum hyperplasia, [...] failure), Obesity, RLS (restless legs syndrome) , RI (myocardial infarction), Testicular hypofunction, Gum hyperplasia, BMI [...] - Reason for ER visit: note: (had RI in [place] ). The patient feels well with no complaints and has good energy level. Patient has been compliant with instructions. Current medicati End: 17-Mar-2016 13:29 on use: no side effects, compliant with dosing regimen and considered effective by patient. Patient sleeps 7 hours per night. Impact of disease: emotional impact-mild. Nutrition: balanced diet and suppl emental vitamins. Hospital procedures performed were heart catherization.Encounter Diagnosis: RI (myocardial infarction), History of tobacco abuse, Cardiac [...] The patient does have durable power of district attorney and living will. The patient has noticed lack of energy. Other providers contributing to the patient's care are passenger car upholsterer apprentice (Fritz), gastrologist (Dr. Small ) and other: [...] Nutrition: balanced diet and supplemental vitamins. The ia dical issues the patient is following up [...] End: 03-Jul-2006 11:43 Payers Isaac Pereira/MedicareJAMES KAPP; [facility] guarantor"
--- OUTSIDE RECORDS SUMMARY | 2019-01-20 06:21 | XMS RPT_ITS | Continuity of Care Document ---
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 Date of Evaluation: 01/03/18 P hysical Therapist: Polo Bedolla, DPMaricruz, OC - Visit Plan Plan: Pt doesn not want to undergo further balance or strength at this time as he can and will continue on his own as planned. He has no falls nor does he feel unsteady. 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 He understands doctors offic e has written a script for that and is awaiting their referral phone call. Otherwise he will continue ex as planned in previous discharge summary. - Subjective Subjective: Dizzyness and balance the jagdish e as last week. Not sure why he is here. Saw both doctors last week and said he was fine. Will workout at [facility] I adn continue HEP of balance ex as taught to him. Does nto wish to have balance PT. 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 No other major changes since [...] to be FAXED BACK to us at [phone] for Medicare purposes. Please let me know [...] (1) Result: Comments: See Note; NOTES: [facility] Physical Therapy [facility] [place], [place] [address] Fax [facility] MR#: [id number] Acct: [id number] Name: MAYRA GHOSH Rep #: [id number] : 1940 77 From: Polo Bedolla DPT, OCS, CSCS Referring Dr.: Anabella Núñez MD Status: REG RCR Insurance: [facility] R SELF PAY INSURANCE HP - [...] please feel free to call me at [phone]. Thank you for the referral of this patient. Sincerely, Polo Jewell am, DPT, OC <Electronically signed by Polo Bedolla DPT, OCS, CSCS> 12/25/17 0906 CC: Anabella Núñez MD EBG Signed 10-Dec-2017 Office Visit Report Result: Comments: See Note; NOTES: [facility] Services [address] [place] [address] OFFICE VISIT Date of Service: 10/25/17 MR#: [id number] Acct: [id number] Patient: MAYRA GHOSH Rep #: [id number] : 1940 Provider: Kristie Perry Age/Sex: 77/M Location: [facility] Status: Signed Device Device Date Interviewed: 10/25/17 Follow-up Location: remote Interview Reason: scheduled follow up Man ufacturer: Medtronic Name: Viva S BED PLACEMENT COORDINATOR-D Model: [id number] Serial #: [id number] Implant Date: 06/05/14 Year(s): 3 Implant Physician: Dr. Saturnino Oquendo/[facility] Patient Characteristics Ventricular Indication: Nonsu stained VT, Sustaned VT Patient Substrate: Ischemic cardiomyopathy Ejection fraction %: 35 to 39 (02/2017) By: Echo Underlying rhythm: Sinus rhythm (1st degree AVB and frequent PVC's) Pacemaker Dependen t: No Device Characteristics Device: Biventricular Type: Implantable defibrillator Remote Follow-Up: [employer] Leads Lead #1 Corporate Aircraft Mechanic Lead 1: [place] Model Lead 1: 2088TC Serial# Lead 1: [id number] Date Implanted Lead 1: 06/05/14 Position Lead 1: RA Lead #2 Corporate Aircraft Mechanic Lead 2: My Digital Lifetronic Model Lead 2: 6947 Serial# Lead 2: [id number] Date Implanted Lead 2: 11/09/01 Lead #3 Corporate Aircraft Mechanic Lead 3: [place] Model Lead 3: 1258T Serial# Lead 3: [id number] Date Implanted Lead 3: 06/05/14 Position Lead [...] On On On On Comments: Laz Settings Lza Settings Pacemaker Mode DDDR Output/Sensing V/PW (ms) [...] <Electronically signed by Ollie HERNANDEZ> Date Kristie Carvajal Signature : Date (if applicable) CC: 03-Dec-2017 Inital Evaluation (1) - PT Result: Comments: See Note; NOTES: [facility] Physical Therapy [address] [place] [address] Fax REHABILITATION SERVICES INITIAL EVALUATION MR#: [id number] Acct: [id number] Name: MAYRA GHOSH Rep #: [id number] : 1940 77 From: Polo Bedolla DPT, OCS, CSCS Referring Dr.: Anabella Núñez MD Status: REG R [facility] SELF [facility]Y INSURANCE Patient's Visit [...] wear him out to get to the man cave. Normally works out at [employer] with balance ex. Feels like vik nce is worse now. Standing in place and [...] to be FAXED BACK to us at [phone] for Medicare purposes. Please let me know if there are questions or concerns regarding this plan of care. Physician Signature: Date: <Electronically sig favian by Polo Bedolla DPT, OCS, CSCS> 12/03/17 0942 CC: Anabella Núñez MD EBG Signed For Medicare only, by signing this I certify the plan of care. Physicians Signature Date 14-Nov-2017 Cardiology Visit Report Result: Comments: See Note; NOTES: [facility] 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 At that time he [...] last diagnostic cardiac catheterization was performed at [facility] in [place], [place] on 03/08/2016. At that ti me [...] CABG was [facility] 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 transplanted heart: justin hernandez heart Postsurgical aortocoronary bypass status Z95.1 Cardiomyopathy, [...] and Lateral Result: Comments: See Note; NOTES: [facility] Imaging Services [address] [place] [address] Chest PA and Lateral MR#: [id number] Acct: [id number] Name: MIRELAMAYRA Rep #: [id number] : 1940 M 77 From: Nereyda Barr MD PCP: Anabella Núñez MD Status: REG CLI Study: Chest PA and Lateral Date of Exam: 11/11/17 Exam# [id number] Ordering Dr: Anabella Núñez MD STUDY: X-RAY [...] Service support , CC: Anabella Núñez MD Interactive Media Marketing Strategist: Signed 30-Oct-2017 Office Visit Report Result: Comments: See Note; NOTES: [facility] [address] [place] [address] OFFICE VISIT Date of Service: 10/25/17 MR#: [id number] Acct: [id number] Patient: MAYRA GHOSH Rep #: [id number] : 1940 Provider: Kristie Perry Age/Sex: 77/M Location: [facility] Status: Signed Device Device Date Interviewed: 10/25/17 Follow-up Location: remote Interview Reason: scheduled follow up Man ufacturer: Medtronic Name: Viva S BED PLACEMENT COORDINATOR-D Model: [id number] Serial #: [id number] Implant Date: 06/05/14 Year(s): 3 Implant Physician: Dr. Saturnino Oquendo/[facility] Patient Characteristics Ventricular Indication: Nonsu stained VT, Sustaned VT Patient Substrate: Ischemic cardiomyopathy Ejection fraction %: 35 to 39 (02/2017) By: Echo Underlying rhythm: Sinus rhythm (1st degree AVB and frequent PVC's) Pacemaker Dependen t: No Device Characteristics Device: Biventricular Type: Implantable defibrillator Remote Follow-Up: [employer] Leads Lead #1 Corporate Aircraft Mechanic Lead 1: [place] Model Lead 1: 2088TC Serial# Lead 1: [id number] Date Implanted Lead 1: 06/05/14 Position Lead 1: RA Lead #2 Corporate Aircraft Mechanic Lead 2: Medtronic Model Lead 2: 6947 Serial# Lead 2: [id number] Date Implanted Lead 2: 11/09/01 Lead #3 Corporate Aircraft Mechanic Lead 3: [place] Model Lead 3: 1258T Serial# Lead 3: [id number] Date Implanted Lead 3: 06/05/14 Position Lead [...] (1) Result: Comments: See Note; NOTES: [facility] Physical Therapy [facility] [address] [place] [address]. [address] [place] [address] Fax REHABILITATION SERVICES DISCHAR SUMMARY MR#: [id number] Acct: [id number] Name: MAYRA GHOSH Rep #: [id number] : 1940 77 From: Polo Bedolla DPT, OCS, CSCS Referring Dr.: CLARI Smith Status: REG R Insurance: [facility] - PT D/C Summary It has been my pleasure to treat MAYRA GHOSH under orders from LORENZO Guthrie, for the diagnosis of debility, intracranial hemmorhage [...] please feel free to call me at [phone]. Thank you for the referral of this patient. Sincerely, Polo Bedolla, KATIET, OC <Electronically signed by Polo WILSONT, OCS, CSCS> 10/15/17 0645 CC: CALRI Smith; Anabella Núñez MD EBG Signed 24-Sep-2017 D/C Summary- SP Result: Comments: See Note; NOTES: [facility] Speech Pathology [facility] [address] [place] [address] Fax REHABILITATION SERVICES DISCHAR SUMMARY MR#: [id number] Acct: [id number] Name: MAYRA GHOSH Rep #: [id number] : 1940 77 From: Darlin Wilson M.S., KEN-COMBAT SYSTEMS ENGINEER Referring Dr.: CLARI Smith Status: REG R Insurance: [facility]ET [facility] Discharge Summary - Discharged: Discharge: Mayra [...] CI <Electronically signed by Darlin Wilson M.S., KEN-COMBAT SYSTEMS ENGINEER&#6 2; 09/24/17 1428 CC: CLARI Smith; Anabella Núñez MD MO Signed 21-Sep-2017 OT D/C Summary Result: Comments: See Note; NOTES: [facility] Occupational Therapy [facility] [address] [place] [address] Fax REHABILITATION SERVICES DIS CHARGE SUMMARY MR#: [id number] Acct: [id number] Name: MAYRA GHOSH Rep #: [id number] : 1940 77 From: vE Rahman Referring Dr.: CLARI Smith Status: REG RCR Eval Date: Discharge Date : HP - OT D/C Summary It has been my pleasure to treat MAYRA GHOSH under orders from Krystal Smith, CLARI-Vandana, for the diagnosis of fall-related intracranial hemorrhage [...] MMT. Additional strength assessments are as follows: bingo usher R 85, L 75; lateral R 15, [...] Resume Hobbies Goal:: Pt. to increase R bingo usher strength by 15 -20 lbs to promote [...] please fell free to call me at [phone]. Thank you for the referral of this patient. Sincerely, Ev Rahman <Electronically signed by Ev Rahman > 09/21/17 1203 CC: CLARI Smith; Anabella Núñez MD KMB Signed 18-Sep-2017 Re-Evaluation - PT (1) Result: Comments: See Note; NOTES: [facility] Physical Therapy [facility] [address] [place] [address]. [address] [place] [address] Fax REEVALUATION / MEDICARE RECERTI FICATION PHYSICAL THERAPY MR#: [id number] Acct: [id number] Name: MAYRA GHOSH Rep #: [id number] : 1940 77 From: Polo Bedolla DPT, OCS, CSCS Referring DrDusty: CLARI Smith Status: REG RCR Insura nce: [facility] TIM Smith, COATING MACHINE HELPER-C, It has been my pleasure to treat MAYRA GHOSH over the last 10 visits for debility, intracranial hemmorhage. Please see the progress note below for an update on physical therapy plan of care! Subjective: A [...] not hesitat e to contact me at [phone] by phone or if you have questions or concerns regarding this new plan of care! Sincerely, KATIE FarrarT, OC <Electronically signed by Pk WILSONT, OCS, CSCS> 09/18/17 1948 CC: CLARI Smith; Anabella Núñez MD EBG Signed For Medicare only, by signing this I certify the plan of care. Physicians Signature Date 03-Sep-2017 OT General Evaluation Result: Comments: See Note; NOTES: [facility] Occupational Therapy [facility] [address] [place] [address] Fax REHABILITATION SERVICES INI TIAL EVALUATION MR#: [id number] Acct: [id number] Name: MAYRA GHOSH Rep #: [id number] : 1940 77 From: Ev Rahman Referring Dr.: CLARI Smith Status: REG R Insurance: [facility] Graze Date: Patient's Visit Information MAYRA GHOSH is a 77 year old M, referred to Occupational Therapy by Krystal Smith, COATING MACHINE HELPER-C,, with a diagnosis of fall-related intracranial hemorrhage s/pcraniotomy. D ate of Evaluation: 08/27/17 Occupational Therapist: Ev Rahman - Subjective Subjective: Pt., Mayra, had fall july 03 and he was admitted into [facility]. present for evaluation and no johnathan that while in hospital he has multiple seizures. HE was transferred up to [place] in which craniotomy was preformed to help decrease pressure on brain as is was continuing to swell. While in [facility] after surgery he was intubated due [...] L 4/5 Wrist: R 3+/5, L 4/5 Refinery Pipeline Operator: R 75, L 79 Lateral Pinch: [...] - Goals Goal:: Pt. to increase R bingo usher strength by 15-20 lbs to promote increased [...] services to promote increasing B UE strength, bingo usher and FMC strength, finger dexterity, B hand [...] to be FAXED BACK to us at [phone] for Medicare purposes. Please let me know [...] PT Result: Comments: See Note; NOTES: [facility] Physical Therapy [address] [place] [address] Fax REHABILITATION SERVICES INITIAL EVALUATION MR#: [id number] Acct: [id number] Name: MAYRA GHOSH Rep #: [id number] : 1940 77 From: Polo Bedolla DPT, OCS, CSCS Referring DrDusty: CLARI Smith Status: REG RCR Insurance: [facility] Patient's Visit Information MAYRA GHOSH is a 77 year old M referred to Physical Therapy by Krystal Smith NP-C with a diagnosis of debility, intracranial hemmorhage. Date of Evaluation: 08/27/17 [facility] Therapist: Polo Bedolla, LINUS, OC - [...] to be FAXED BACK to us at [phone] for Medicare purposes. Please let me know if there are questions or concerns regarding this plan of care. Physician Signature: Date: <Electronically signed by Polo WILSONT , OCS, CSCS> 08/29/17 0735 CC: CLARI Smith; Anabella Núñez MD EBG Signed For Medicare only, by signing this I certify the plan of care. ___ Physicians Signature Date 28-Aug-2017 Adult Evaluation - SP Result: Comments: See Note; NOTES: [facility] Speech Pathology [facility] [address] [place] [address] Fax REHABILITATION SERVICES INITIAL EVALUATION MR#: [id number] Acct: [id number] Name: MAYRA GHOSH Rep #: [id number] : 1940 77 From: Tracy Hartman Referring DrDusty: CLARI Rice Luis Status: REG R [facility] - History Date of Eval: 08/27/17 Medical Diagnosis (from RX): debility s/p craniotomy Previous speech therapy: Yes Results: Pt received ST services in [facility] for primarily word finding deficits. Oth er Relevant Medical History/Diagnoses/Surgery: Pt had a fall which resulted in a craniectomy relieve pressure. Pt was at [facility], then [facility], back to [facility], and back to [facility]. Medications related to this diagno [...] 1316 CC: CLARI Smith; Anabella Núñez MD AAK Signed For Medicare only, by signing this I certify the plan of care. Physicians Signature Date 06-Jul-2017 12 Lead Electrocardiogram Result: Comments: See Note; NOTES: [facility] Cardiovascular Services [address] [place] [address] 12 Lead EKG 07/04/17 1650 MR#: [id number] Acct: [id number] Name: MAYRA GHOSH Rep # : [id number] : 1940 77 From: Bennie Ray MD [...] Abnormal ECG Confirmed by BENNIE RAY ([id number]), photo editor YANG BARR ([id number]) on 07/06/2017 10:58:37 AM Referred By: ADONAY Confirmed By:BENNIE RAY 07/06/17 1058 Date Bennie Ray MD CC: Anabella Núñez MD Date Dictated: 07/04/171649 Date Transcribed: 07/04/171649 Interactive Media Marketing Strategist: Signed 04-Jul-2017 Emergency Department Summary Result: Comments: See Note; NOTES: [facility] Medical Records Department [address] [place] [address] Emergency Department Summary 07/04/171655 MR#: [id number] Acct: [id number] Name: MAYRA GHOSH Rep #: [id number] : 1940 77 From: Juan C Winston [...] answer some questions after arrival here to [facility] emergency department. notes that he did [...] a left subdural hemorrhage with midline shift. [facility] or studies CT C-spine chest x-ray all pending. [...] transfer. Patient will be transf erred to [facility] and was accepted by the emergency [...] via helicopter. Treatment Plan: [] Disposition: Transfer [facility] Impression: Subdural hemorrhage with midline shift Seizures ED Disposition - Plan for ED Patient: Chief Complaint: Sei lge Referrals: Anabella Núñez MD [Primary Care Provider] - What to do if you have Problems For any increased pain, shortness of breath, bleeding, nausea or vomiting, chest pain, or any unexpected pr oblems, contact your Primary Care Provider. Call [facility] ([phone]) or report to the closest Emergency Room. Call 911 if necessary. 07/04/17 1700 <Electronically signed by Juan C Winston MD> Date Juan C Winston MD Cosigner Signature (If Indicated): Date CC: Anabella Núñez MD 04-Jul-2017 Brain/Head without Contrast Result: Comments: See Note; NOTES: [facility] Imaging Services [address] [place] [address] Brain/Head without Contrast MR#: [id number] Acct: [id number] Name: MAYRA GHOSH Rep #: [id number] : 1940 [facility] From: Darrel Lopez MD PCP: Anabella Núñez MD Status: DEP ER Study: Brain/Head without Contrast Date of Exam: 07/04/17 Exam# [id number] Ordering Dr: Juan C Winston MD STUDY [...] Anabella Núñez MD; Juan C Winston MD Interactive Media Marketing Strategist: Signed 04-Jul-2017 Chest 1 View (Portable) Result: Comments: See Note; NOTES: [facility] Imaging Services [address] [place] [address] Chest 1 View (Portable) MR#: [id number] Acct: [id number] Name: MAYRA GHOSH Rep #: [id number] : 1940 M 77 From: Nadira Pedersen MD PCP: Anabella Núñez MD Status: REG ER Study: Chest 1 View (Portable) Date of Exam: 07/04/17 Exam# [id number] Ordering Dr: Juan C Winston MD STUDY: [...] Nadira Pedersen MD at 17:14 EDT Tel [phone], Service support , Fax CC: Anabella Núñez MD; Juan C Winston MD Interactive Media Marketing Strategist: Signed 04-Jul-2017 Spine Cervical without Contras Result: Comments: See Note; NOTES: [facility] Imaging Services [address] [place] [address] Spine Cervical without Contras MR#: [id number] Acct: [id number] Name: MAYRA GHOSH Rep #: [id number] : 1940 M 77 From: Nadira Pedersen MD PCP: Anabella Núñez MD Status: REG ER Study: Spine Cervical without Contras Date of Exam: 07/04/17 Exam# [id number] Ordering Dr: Juan C Winston MD STUDY: [...] Nadira Pedersen MD at 17:19 EDT Tel [phone], Service support , Fa x [phone] CC: Anabella Núñez MD; Juan C Winston MD Interactive Media Marketing Strategist: Signed 12-Jun-2017 Operative Report Result: Comments: See Note; NOTES: [facility] Medical Records Department [address] [place] [address] Operative Report 06/12/17 0804 MR#: [id number] Acct: [id number] Name: MAYRA GHOSH Rep #: [id number] : 1940 77 From: Polo Chávez MD PCP: Anabella Núñez MD Status: REG CLI Y Location: [place] [address] Report of Operation Date of Procedure: 06/12/17 [...] and Lateral Result: Comments: See Note; NOTES: [facility] Imaging Services [address] [place] [address] Chest PA and Lateral MR#: [id number] Acct: [id number] Name: MAYRA GHOSH Rep #: [id number] : 1940 M 77 From: Louis Sue MD PCP: Anabella Núñez MD Status: REG CLI Study: Chest PA and Lateral Date of Exam: 06/06/17 Exam# [id number] Ordering Dr: Delisa Gordon DO STUDY: X-RAY [...] Louis Sue MD at 13:58 EDT Tel [phone], Service support , CC: Anabella Núñez MD; Delisa Gordon DO Interactive Media Marketing Strategist: Signed 14-Mar-2017 CTA Head W/WO Contrast Result: Comments: See Note; NOTES: [facility] Imaging Services [address] [place] [address] Verdana 4d CTA Head W/WO Contrast MR#: [id number] Acct: [id number] Name: MAYRA GHOSH Rep #: [id number] : 1940 [facility] From: Kalli Lowery MD PCP: Anabella Núñez MD Status: REG ER Study: CTA Head W/WO Contrast Date of Exam: 03/14/17 Exam# [id number] Ordering Dr: Gal Glasgow MD [facility] DY: CTA OF THE BRAIN REASON FOR EXAM: Male, 77 years old. DIZZINESS SINCE 8AM HX-HTN,HI,PACER,CABG,CHF RADIATION DOSAGE (If Supplied By Facility): CTDIvol [...] There is no demonstrated aneurysm of the lummi of Donis. There is no demonstrated abnormality of the visuali zed brain. CT/CTA Head W/WO Contrast IMPRESSION: No evidence of significant stenosis or occlusion of the intracranial arteries. See above. Elect ronically Signed: Kalli Lowery MD at 17:56 EDT Tel , Service support , CC: Anabella Núñez MD; Gal Glasgow MD Interactive Media Marketing Strategist: Signed 14-Mar-2017 CTA Neck W/WO Contrast Result: Comments: See Note; NOTES: [facility] Imaging Services [address] [place] [address] Verdana 4d CTA Neck W/WO Contrast MR#: [id number] Acct: [id number] Name: MAYRA GHOSH Rep #: [id number] : 1940 M 77 From: Kalli Lowery MD PCP: Anabella Núñez MD Status: REG ER Study: CTA Neck W/WO Contrast Date of Exam: 03/14/17 Exam# [id number] Ordering Dr: Gal Glasgow MD [facility] DY: CTA NECK WITH CONTRAST REASON FOR EXAM: Male, 77 years old. DIZZINESS SINCE 8AM HX-HTN,HI,PACER,CABG,CHF RADIATION DOSAGE (If Supplied By Facility): CTDIvol [...] CC: Anabella Núñez MD; Gal Glasgow MD Interactive Media Marketing Strategist: Signed 14-Mar-2017 Chest PA and Lateral Result: Comments: See Note; NOTES: [facility] Imaging Services [address] [place] [address] Verdana 4d Chest PA and Lateral MR#: [id number] Acct: [id number] Name: MAYRA GHOSH Rep #: [id number] : 1940 M 77 From: Kalli Lowery MD PCP: Anabella Núñez MD Status: REG ER Study: Chest PA and Lateral Date of Exam: 03/14/17 Exam# [id number] Ordering Dr: Gal Glasgow MD STUDY: X-RAY [...] CC: Anabella Núñez MD; Gal Glasgow MD Interactive Media Marketing Strategist: Signed 02-Nov-2016 Chest PA and Lateral Result: Comments: See Note; NOTES: [facility] Imaging Services [address] [place] [address] Verdana 4d Chest PA and Lateral MR#: [id number] Acct: [id number] Name: MAYRA GHOSH Rep #: [id number] : 1940 76 From: Tyshawn Gayle DO PCP: Anabella Núñez MD Status: REG CLI Study: Chest PA and Lateral Date of Exam: 11/02/16 Exam# [id number] Ordering Dr: Amando Hu MD STUDY: X-R [...] Tyshawn Gayle DO at 12:16 EST Tel [phone], Service support [phone], CC: Anabella Núñez MD; Amando Hu MD Interactive Media Marketing Strategist: Signed 08-Sep-2016 Kidney and Bladder Result: Comments: See Note; NOTES: [facility] Imaging Services [address] [place] [address] Verdana 4d Kidney and Bladder MR#: [id number] Acct: [id number] Name: MAYRA GHOSH Rep #: [id number] : 1940 M 76 From: Louis Sue MD PCP: Anabella Núñez MD Status: REG CLI Study: Kidney and Bladder Date of Exam: 09/08/16 Exam# [id number] Ordering Dr: Anabella Núñez MD STUDY: RENAL [...] Louis Sue MD at 15:05 EST Tel [phone], Service support [phone], CC: Anabella Núñez MD Interactive Media Marketing Strategist: Signed 13-Sep-2015 Chest PA and Lateral Result: Comments: See Note; NOTES: [facility] Imaging Services [address] [place] [address] Verlepanto 4d Chest PA and Lateral MR#: [id number] Acct: [id number] Name: Lula GHOSH Rep #: [id number] : 1940 75 From: Louis Sue MD PCP: Anabella Núñez MD Status: REG CLI Study: Chest PA and Lateral Date of Exam: 09/13/15 Exam# [id number] Ordering Dr: Daria Lowe STUDY: X-RAY CHEST [...] Louis Sue MD at 12:55 EST Tel [phone], Service support [phone], RAD/Chest PA and Lateral IMPRESSION: No acute abnorma lity is seen. Cardiomegaly. Electronically Signed: Louis Sue MD at 12:55 EST Tel [phone], Service support [phone], CC: Daria Lowe; Anabella Núñez MD Interactive Media Marketing Strategist: Signed 13-Sep-2015 Spirometry (30565) Comments: normal Result: 23-Apr-2014 Echocardiogram Complete Result: Comments: See Note; NOTES: [facility] Cardiovascular Services [address] [place] [address] Echo Complete 04/23/14 0954 MR#: [id number] Acct: [id number] Name: CORNELIA GHOSH Екатерина Rep #: [id number] : 1940 74 From: Amando Hu MD Attending Dr: Amando Hu MD Status: REG CLI Ordering Dr: Amando Hu MD Date: 04/23/14 Location: [facility] Sex: M C Admitted: Procedure This [...] Mid- inferoseptal : Akinetic. Mid-anteroseptal : Akinetic. Soddy Daisy : Hypokinetic. Right Ventricle Normal RV size. [...] max P.7 mmHg TR max P.4 m [facility] E/E' med: 36.0 Interpretation Summary The study [...] identified within the right ventricle. Ordering Physician: Amnado Hu Referring Physician: Anabella Núñez M.D. Performed By: Rajwinder Aleman, ROMERO : Anabella Núñez MD; Molly Hu MD Date Dictated: 04/23/14953 Date Transcribed: 04/23/142135 Interactive Media Marketing Strategist: Signed 21-Jan-2014 Chest PA and Lateral Result: Comments: See Note; NOTES: [facility] Imaging Services [address] [place] [address] Radiology Report MR#: [id number] Acct: [id number] Name: MAYRA GHOSH Rep #: [id number] : 1940 73 From: Louis Sue MD PCP: Anabella Núñez MD Status: REG CLI Study: Chest PA and Lateral Date of Exam: 01/21/14 Exam# [id number] Ordering Dr: Anabella Núñez MD STUDY: X [...] M.D. 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 PREVIOUS SPECIMEN REJECTED DUE TOHEMOLYSIS. 10/16/18 Anabelle1 Cinthia Mcneal.'TROP' Serial specimen #1, #2, #3, or #4: [address] [place] [address] [address] [place], [address] GAP 10 (Normal) Range: 5-15 CO2 26.0 [...] A.D.A. criteria.Please note revised GLUCOSE reference range niprjpgct22/02/2018. 75-Sxp-611232:00 Magnesium Comments: REDRAW. PREVIOUS SPECIMEN REJECTED DUE TOHEMOLYSIS. 10/16/18 1431 Cinthia Mcneal.'TROP' Serial specimen #1, #2, #3, or #4: [address] [place] [address] [address] [place], [place], [id number](066) MG 2.1 mg/dL (Normal) Range: 1.6-2.6 68-Ehq-548578:00 Troponin-I Comments: REDRAW. PREVIOUS SPECIMEN REJECTED DUE TOHEMOLYSIS. 10/16/18 1431 Cinthia Mcneal.'TROP' Serial specimen #1, #2, #3, or #4: [address] [place] [address] Bjuv[address] [place], [place], [address](476) TROPONIN-I 0.022 ng/mL (Normal) Comments: TROPONIN-I EXPECTED VALUES <0.045 Negative 0.045 - 0.590 Consistent with Cardiac Damage > OR = 0.600 Critical Value Not every elevated troponin is indicative of HI. T hesevalues should be used with clinical judgement in examiningthe patient's clinical picture for diagnosis. To establisha diagnosis of HI versus myocardial injury, there must be ademonstrated rise and/ or fall in the troponin values, inaddition to ischemic symptoms, EKG changes, new regionalwall motion abnormality, and/or angiographical evidence. PLEASE NOTE: REFERENCE RANGES EDITED 03/11/1816-Oct-201812-Ngz-623145:00 CBC W/Diff, Automated Comments: [facility] [address] [place], [place], [address] Absolute Lymph 1.37 {X10_3/ul} (Normal) Range: 0.83-4.51 [...] :13 Basic Metabolic Profile (BMP) Comments: [facility] [address] [place], [place], [address] GAP 12 (Normal) Range: 5-15 CO2 22.0 [...] A.D.A. criteria.Please note revised GLUCOSE reference range kqmptydyz48/02/2018. 30-Sep-20187:13 CBC W/Diff, Automated Comments: [facility] [address]wwt[address]cyd[address] [place], [place], [address] Absolute Lymph 1.40 {X10_3/ul} (Normal) Range: 0.83-4.51 [...] (Normal) Range: 4.4-11.0 :13 Troponin-I Comments: [facility] [address] [place], [address] TROPONIN-I 0.030 ng/mL (Normal) Comments: TROPONIN-I EXPECTED VALUES <0.045 Negative 0.045 - 0.590 Consistent with Cardiac Damage > OR = 0.600 Critical Value Not every elevated troponin is indicative of HI. T hesevalues should be used with clinical judgement in examiningthe patient's clinical picture for diagnosis. To establisha diagnosis of HI versus myocardial injury, there must be ademonstrated rise and/ or fall in the troponin values, inaddition to ischemic symptoms, EKG changes, new regionalwall motion abnormality, and/or angiographical evidence. PLEASE NOTE: REFERENCE RANGES EDITED 03/11/1830-Sep-20187:00 Urinalysis, Complete Comments: Order Date: 09/30/18Has pt arrived? YHow was Urine Obtained? 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, [address] MUCUS, URINE 0 SEEN {/hpf} [...] (Normal) CLARITY Clear (Normal) COLOR Yellow (Normal) 07-Xfh-57324:40 CBC W/Diff, Automated Comments: [facility] Maeziibdcx[address] [place], [place], [address] Absolute Lymph 1.74 {X10_3/ul} (Normal) Range: 0.83-4.51 [...] Range: 4.4-11.0 :40 Comprehensive Metabolic Profil Comments: [facility] [address] [place], [place], [address] GAP 13 (Normal) Range: 5-15 CO2 27.0 [...] A.D.A. criteria.Please note revised GLUCOSE reference range hvmfvfawq15/02/2018. 36-Ohb-47773:40 Lipase Comments: [facility] R[address]omdfpixv[address] [place], [place], [address] LIPASE 114 U/L (Normal) Range: 73-393 59-Tjx-589656:18 BNP,B-Type NATRIURETIC PEPTIDE Comments: [facility] Yailimcaio1269 [facility] [address] [place], [place], [address] B-TYPE JUSTIN PEP 734.1 pg/mL (Abnormal) Range: 0-100 51-Vws-406148:18 CBC-Complete Blood Cnt No Diff Comments: [facility] [address] [place], [place], [address] MPV 10.4 fL (Normal) Range: 6.2-12.0 PLT [...] 4.6-6.2 WBC 7.2 K/mm3 (Normal) Range: 4.4-11.0 00-Uho-836190:18 Comprehensive Metabolic Profil Comments: 'TROP' Serial specimen #1, #2, #3, or #4: [facility] [address]oykfgxv[address] [place], [place], [address] GAP 10 (Normal) Range: 5-15 CO2 29.0 [...] A.D.A. criteria.Please note revised GLUCOSE reference range ntvrpxdny77/02/2018. 83-Tup-327322:18 KEPPRA (LEVETIRACETAM) Comments: [facility] (refer to report for specific site)refer to report for address and phone number TANNER Comments: TEST RESULT LIMITSLevetiracetam (Keppra), SLevetiracetam, S 29.6 ug/mL 10.0 - 40.0 TESTING PERFO (Normal) [facility]MED AT [facility]. ORIGINAL REPORT ON FILE IN LAB CONTAINS ADDITIONAL TEST SITE INFORMATION. 67-Fvq-299772:18 Thyroid Stim Hormone (TSH) Comments: 'TROP' Serial specimen #1, #2, #3, or #4: [address] [place] [address] [address] [place], [place], [address] TSH 2.73 {uIU/mL} (Normal) Range: 0.358-3.74 47-Ojb-562809:18 Troponin-I Comments: 'TROP' Serial specimen #1, #2, #3, or #4: [address] [place] [address] [address] [place], [place], [address] TROPONIN-I 0.027 ng/mL (Normal) Comments: TROPONIN-I EXPECTED VALUES <0.045 Negative 0.045 - 0.590 Consistent with Cardiac Damage > OR = 0.600 Critical Value Not every elevated troponin is indicative of HI. T hesevalues should be used with clinical judgement in examiningthe patient's clinical picture for diagnosis. To establisha diagnosis of HI versus myocardial injury, there must be ademonstrated rise and/ or fall in the troponin values, inaddition to ischemic symptoms, EKG changes, new regionalwall motion abnormality, and/or angiographical evidence. PLEASE NOTE: REFERENCE RANGES EDITED 18:59 Metabolic Panel, Basic Comments: PATIENT NOT FASTINGPERFORMED BY: LabCoRobert Wood Johnson University HospitalDfbogr2755 [facility] [id number] (520[address]) Calcium 9.0 mg/dL (Normal) Range: 8.6-10.2 Carbon [...] 8-27 Glucose 177 mg/dL (Abnormal) Range: 65-99 29-Tcg-936479:06 Lipid Profile Comments: [facility] [address]feis[address] [place], [place], [address] VLDL 20 mg/dL (Normal) Range: 5-40 LDL [...] 200-240 mg/dL Borderline >240 mg/dL High Risk 59-Slx-445364:06 Liver Profile Comments: [facility] Un[address] [place], [place], [address] D BILI 0.35 mg/dL (Abnormal) Range: 0.00-0.30 T BILI 0.90 mg/dL (Normal) Range: 0.20-1.00 ALT 26 U/L (Normal) Range: 16-61 ALK P 158 U/L (Abnormal) Range: 45-117 AST 27 U/L (Normal) Range: 15-37 GLOB 4.8 g/dL (Abnormal) Range: 2.2-4.2 ALB 3.4 g/dL (Normal) Range: 3.2-5.0 T PROT 8.2 g/dL (Normal) Range: 6.4-8.2 71-Uly-33379:25 Tanner (43120) Comments: PATIENT WAS FASTINGPERFORMED BY: CB [facility] Jmgjps6913 [facility] [id number] BY: [facility] [address] [id number] Levetiracetam, S 41.3 ug/mL (Abnormal) Range: 10.0-40.0 38-Ftt-80073:25 METABOLIC PANEL, BASIC Comments: PATIENT WAS FASTINGPERFORMED BY: MobilitieChristopher [place] 4835470 [facility] [id number] BY: MobilitieRachael [place] 837337 [facility] [id number] (696[address]) Calcium 9.0 mg/dL (Normal) Range: 8.6-10.2 Carbon [...] 8-27 Glucose 171 mg/dL (Abnormal) Range: 65-99 83-Imi-87099:25 Platelet Count, Citrated Comments: PATIENT WAS FASTINGPERFORMED BY: Mobilitie[address] [id number] BY: MobilitieBarnes-Jewish Saint [facility] Hospital1447 [facility] [id number] (30277) Plt Count, Citrated Bld 119 {X10E3/uL} (Abnormal) Range: 150-379 24-Zzp-689849:54 HGB A1C (32893) Comments: PATIENT NOT FASTINGPERFORMED BY: MarketoRobert [place] 2184770 [facility] [id number] Hemoglobin A1c 9.0 % (Abnormal) Range: 4.8-5.6 Comments: . Prediabetes: 5.7 - 6.4 Diabetes: >6.4 Glycemic control for adults with diabetes: <7.0 08-Woh-738663:54 T4, FREE (THYROXINE) (22779) Comments: PATIENT NOT FASTINGPERFORMED BY: [facility], IncFreeLunchedRobert Ville 2184770 [facility] [id number] T4,Free(Direct) 1.15 ng/dL (Normal) Range: 0.82-1.77 41-Iqw-100635:54 TSH (61247) Comments: PATIENT NOT FASTINGPERFORMED BY: [facility] Fpiwbz6217 [facility] [id number]; appt 08/19 TSH 2.130 {uIU/mL} (Normal) Range: 0.450-4.500 54-Vke-852168:20 Rapid Strep Test, Office (93362) Rapid Strep Test, Office Negative (Normal) 92-Zfa-484404:46 Metabolic Panel, Basic Comments: PATIENT NOT FASTINGPERFORMED BY: CB [facility] Fdlour7891 [facility] [id number]; fu today DB (65600) Calcium 9.1 mg/dL (Normal) Range: 8.6-10.2 Carbon [...] 8-27 Glucose 227 mg/dL (Abnormal) Range: 65-99 1-Djj-665724:53 Basic Metabolic Profile (BMP) Comments: [facility] Netfbcjsgj[address] [place], [address] GAP 12 (Normal) Range: 5-15 CO2 27.0 [...] A.D.A. criteria.Please note revised GLUCOSE reference range rxsefrhtq78/02/2018. 2-Rvz-155207:53 Magnesium Comments: [facility] Ipueaqppgu5[address] [place], [address] MG 1.8 mg/dL (Normal) Range: 1.6-2.6 78-Yrl-520684:10 Basic Metabolic Panel (8) Comments: PATIENT NOT FASTINGPERFORMED BY: [employer] [facility] [id number] BY: [place]flyLaura [place] 469267 [facility] [id number] Calcium 9.3 mg/dL (Normal) Range: 8.6-10.2 Carbon [...] 8-27 Glucose 325 mg/dL (Abnormal) Range: 65-99 42-Woq-619795:10 Levetiracetam (Keppra), S Comments: PATIENT NOT FASTINGPERFORMED BY: [employer] [facility] [id number] BY: [address] [id number] Levetiracetam, S 66.3 ug/mL (Abnormal) Range: 10.0-40.0 :10 Platelet Count on Comments: PATIENT NOT FASTINGPERFORMED BY: [address] [id number] BY: [address] [id number] Citrated Bld Plt Count, Citrated 85 {X10E3/uL} Range: 150-379 Bld (Abnormal) Comments: Platelet count verified by examination of peripheral blood smear. FDP, Plasma 5 ug/mL (Abnormal) Comments: PATIENT NOT FASTINGPERFORMED BY: [place] 4078970 [facility] [id number] BY: [address] [id number] :49 LDH 220 [iU]/L (Normal) Comments: PATIENT NOT FASTINGPERFORMED BY: [place] 4078970 [facility] [id number] BY: [address] [id number] :49 Range: 121-224 :49 Methylmalonic Acid, Serum Comments: PATIENT NOT FASTINGPERFORMED BY: [address] [id number] BY: [address] [id number] Disclaimer: SPRCS (Normal) Comments: This test was developed and its performance characteristicsdetermined by [employer]. It has not been cleared or approvedby the Food and Drug Administration. Methylmalonic Acid, Serum 195 nmol/L (Normal) Range: 0-378 :49 Platelet Count on Comments: PATIENT NOT FASTINGPERFORMED BY: [place] 4078970 [facility] [id number] BY: [address] [id number] Citrated Bld Plt Count, Citrated 108 {X10E3/uL} Range: 150-379 Bld (Abnormal) Vitamin B12 780 pg/mL (Normal) Comments: PATIENT NOT FASTINGPERFORMED BY: MarketoRobert [place] 2184770 [facility] [id number] BY: [address] [id number] :49 Range: 232-1245 2-Cvw-712614:49 Renal function Panel Comments: standing order q 3 months; PATIENT NOT FASTINGPERFORMED BY: [employer] Tzbvag5051 [facility] [id number] BY: [employer] [id number] (28894) Albumin 4.3 g/dL (Normal) Range: 3.5-4.8 Phosphorus [...] 8-27 Glucose 244 mg/dL (Abnormal) Range: 65-99 57-Wgk-981328:48 Urinalysis, Office (72988) UA - LEUKOCYTE ESTERASE Trace (Normal) UA - NITRITE Negative (Normal) URINE UROBILINGN CASPER TIMED 2 mg/dL (Normal) UA - PROTEIN Trace mg/dL (Normal) UA - PH 6 (Abnormal) UA - BLOOD Negative (Normal) UA - SPECIFIC GRAVITY 1.020 (Normal) UA - KETONES Negative mg/dL (Normal) UA - BILIRUBIN Negative (Normal) UA - GLUCOSE Negative (Normal) 21-Bhm-941581:47 CBC W/Diff, Automated Comments: Order Date: 04/25/18Order Info: 0184-1 - CBCDWGe[facility]al Hospital [address]akemkg[address] [place], [address] Absolute Lymph 1.07 {X10_3/ul} (Normal) Range: 0.83-4.51 [...] 4.6-6.2 WBC 7.9 K/mm3 (Normal) Range: 4.4-11.0 95-Tbe-669157:47 Renal Profile Comments: Order Date: 04/25/18Order Info: 0790- 1 - RENALOrder Info: 02180-8 - TROPOrder Info: 34882-9 - MGOrder Info: 3016-3 - TSHOrder Info: 3024-7 - T4F'TROP' Serial specimen #1, #2, #3, or #4: [address] [place] [address] [address] [place], [place], [address] CO2 27.0 mmol/L (Normal) Range: 21.0-32.0 CL [...] A.D.A. criteria.Please note revised GLUCOSE reference range lxlydebxv25/02/2018. 52-Iyo-811769:47 Thyroid Stim Hormone (TSH) Comments: Order Date: 04/25/18Order Info: 0790-1 - RENALOrder Info: 54577-8 - TROPOrder Info: 69219-2 - MGOrder Info: 3016-3 - TSHOrder Info: 3024-7 - T4F'TROP' Serial specimen #1, #2, #3, or #4: [address] [place] [address] Pznscj[address]adw5640 [address] [place], [place], [address] TSH 2.08 {uIU/mL} (Normal) Range: 0.358-3.74 95-Qni-386169:47 Troponin-I Comments: Order Date: 04/25/18Order Info: 0790-1 - RENALOrder Info: 89434-2 - TROPOrder Info: 53456-3 - MGOrder Info: 6-3 - TSHOrder Info: 3024-7 - T4F'TROP' Serial specimen #1, #2, #3, or #4: [address] [place] [address] [address] [place], [place], [address] TROPONIN-I < 0.015 ng/mL (Normal) Comments: TROPONIN-I EXPECTED VALUES <0.045 Negative 0.045 - 0.590 Consistent with Cardiac Damage > OR = 0.600 Critical Value Not every elevated troponin is indicative of HI. T hesevalues should be used with clinical judgement in examiningthe patient's clinical picture for diagnosis. To establisha diagnosis of HI versus myocardial injury, there must be ademonstrated rise and/ or fall in the troponin values, inaddition to ischemic symptoms, EKG changes, new regionalwall motion abnormality, and/or angiographical evidence. PLEASE NOTE: REFERENCE RANGES EDITED 03/11/1825-Apr-201829-Faa-968508:47 T4, FREE (THYROXINE) (16981) Comments: Order Date: 04/25/18Order Info: 90- - RENALOrder Info: 99743-4 - TROPOrder Info: 14372-5 - MGOrder Info: 6-3 - TSHOrder Info: 3024-7 - T4F'TROP' Serial specimen #1, #2, #3, or #4: [address] [place] [address] [address] [place], [place], [address] T4 FREE DIRECT 1.08 ng/dL (Normal) Range: 0.76-1.46 :47 Magnesium (30818) Comments: Order Date: 04/25/18Order Info: 0790- 1 - RENALOrder Info: 42779-0 - TROPOrder Info: 49792-6 - MGOrder Info: 6-3 - TSHOrder Info: 3024-7 - T4F'TROP' Serial specimen #1, #2, #3, or #4: [address] [place] [address] [address] [place], [address] MG 1.9 mg/dL (Normal) Range: 1.6-2.6 76-Xjl-602107:00 CBC WITH MANUAL DIFF (69849) Comments: standing order q 3 months; PATIENT NOT FASTINGPERFORMED BY: Tweet Category6370 [facility] [id number] Immature Grans (Abs) 0.0 {x10E3/uL} (Normal) Range: [...] 4.14-5.80 WBC 9.0 {x10E3/uL} (Normal) Range: 3.4-10.8 39-Ngd-940322:00 MAGNESIUM (58321) Comments: standing order q 3 months; PATIENT NOT FASTINGPERFORMED BY: [employer] Tlzzwt9866 [facility] [id number] Magnesium 1.7 mg/dL (Normal) Range: 1.6-2.3 14-Hnf-268120:00 PARATHORMONE (94829) Comments: standing order q 3 months; PATIENT NOT FASTINGPERFORMED BY: [employer] Lxtnye26[address] [place] [id number] PTH, Intact 73 pg/mL (Abnormal) Range: 15-65 90-Fsm-873476:00 Renal function Panel (24422) Comments: standing order q 3 months; PATIENT NOT FASTINGPERFORMED BY: Xyleme6370 [address] [place] [id number] Albumin 4.1 g/dL (Normal) Range: 3.5-4.8 Phosphorus [...] 8-27 Glucose 276 mg/dL (Abnormal) Range: 65-99 38-Kga-292047:29 Renal function Panel (32792) Comments: PATIENT WAS FASTINGPERFORMED BY: [employer] Mpgrtc0638 [facility] [place] [id number]; fu 6-28 Albumin 4.4 g/dL (Normal) Range: [...] 8-27 Glucose 198 mg/dL (Abnormal) Range: 65-99 6-Tih-306381:18 HgA1C , Office (48038) HgA1C , Office 7.0 % (Normal) Range: 4.6 - 7.1 :46 Basic Metabolic Profile Comments: Comments: Renal InsufficiencyComments: [facility] InsufficiencyWGe[facility]al Hospital Mzbnfjrakg7788 [facility] [place], [place], [address] (GBA) GAP 13 (Normal) Range: 5-15 CO2 24.0 [...] A.D.A. criteria.Please note revised GLUCOSE reference range dugbzikcp40/02/2018. :46 Lipid Profile Comments: Comments: Renal InsufficiencyComments: Renal InsufficiencyWlovelace rehabilitation hospital[facility] Nbctumpcac8[address] [place], [place], [address] VLDL 41 mg/dL (Abnormal) Range: 5-40 LDL [...] Liver Profile Comments: Comments: Renal InsufficiencyComments: Renal InsufficiencyWGeorgetown Behavioral Hospital Qqrdpxkzor17[address] [place], [place], [address] D BILI 0.16 mg/dL (Normal) Range: 0.00-0.30 T BILI 0.50 mg/dL (Normal) Range: 0.20-1.00 ALT 25 U/L (Normal) Range: 16-61 ALK P 104 U/L (Normal) Range: 45-117 AST 29 U/L (Normal) Range: 15-37 GLOB 4.0 g/dL (Normal) Range: 2.2-4.2 ALB 3.5 g/dL (Normal) Range: 3.2-5.0 T PROT 7.5 g/dL (Normal) Range: 6.4-8.2 7-Yzd-863601:37 Magnesium (98485) Comments: PATIENT NOT FASTINGPERFORMED BY: CB [facility] Zrqsol3827 [facility] [id number] Magnesium 2.1 mg/dL (Normal) Range: 1.6-2.3 5-Ppe-682164:37 Metabolic Panel, Basic (94289) Comments: PATIENT NOT FASTINGPERFORMED BY: CB [facility] Alzrbq2070 [facility] [id number] Calcium 9.0 mg/dL (Normal) Range: 8.6-10.2 Carbon [...] 8-27 Glucose 284 mg/dL (Abnormal) Range: 65-99 12-Enm-725450:57 Bedside Glucose Comments: [facility] LaboratoryPoint of Qnga[address] [place], [place] [address] BEDSIDE GLU 381 mg/dL (Abnormal) Range: 70-110 Comments: MANAGEMENT OF PATIENT CARE PER NURSING PROTOCOL 75-Qwb-243762:50 Acetone Serum Comments: [facility] Wxcvptxlvv[address] [place], [place], [address] ACETONE SERUM NEGATIVE (Normal) 03-Yyv-229584:50 Basic Metabolic Profile (BMP) Comments: 'TROP' Serial specimen #1, #2, #3, or #4: 1WGe[facility] Rornobinpk77[address] [place], [place], [address] GAP 9 (Normal) Range: 5-15 CO2 30.0 [...] A.D.A. criteria.Please note revised GLUCOSE reference range zzoupxwbk19/02/2018. 19-Idl-446888:50 BNP,B-Type NATRIURETIC PEPTIDE Comments: [facility] [address] [place], [place], [address] B-TYPE JUSTIN PEP 386.1 pg/mL (Abnormal) Range: 0-100 58-Xql-232317:50 CBC W/Diff, Automated Comments: [facility] Z[address]xmp[address]ux[address] [place], [place], [address] Absolute Lymph 1.11 {X10_3/ul} (Normal) Range: 0.83-4.51 [...] 4.6-6.2 WBC 9.7 K/mm3 (Normal) Range: 4.4-11.0 99-Ncm-354812:50 Troponin-I Comments: 'TROP' Serial specimen #1, #2, #3, or #4: [address] [place] [address] [address]ud[address] [place], [address] TROPONIN-I 0.03 ng/mL (Normal) Comments: TROPONIN-I EXPECTED VALUES <0.05 NEGATIVE 0.06 - 0.59 AT RISK OF HI > OR = 0.60 SUGGEST HI 56-Odt-[id number]:51 Renal Profile Comments: Order Date: 01/18/18Order Info: [id number] - RENALOrder Info: [id number] - TROP'TROP' Serial specimen #1, #2, #3, or #4: [address] [place] [address] [id number] [facility] [place], [phone] CO2 29.0 mmol/L (Normal) Range: 21.0-32.0 CL [...] A.D.A. criteria.Please note revised GLUCOSE reference range abbgtbhtq32/02/2018. [id number]-Del-[id number]:51 Troponin-I Comments: Order Date: 01/18/18Order Info: [id number] - RENALOrder Info: [id number] - TROP'TROP' Serial specimen #1, #2, #3, or #4: 1[facility] [address]fflfoxiqv[address] [place], [place], [phone] TROPONIN-I 0.02 ng/mL (Normal) Comments: TROPONIN-I EXPECTED VALUES <0.05 NEGATIVE 0.06 - 0.59 AT RISK OF HI > OR = 0.60 SUGGEST HI 56-Lfp-236034:16 HgA1C , Office (05065) HgA1C , Office 7.7 % (Abnormal) Range: 4.6 - 7.1 13-Usi-991669:47 Basic Metabolic Profile (BMP) Comments: CALL RESULTS TO [phone] Van Wert Hospital [address]jhxf[address] [place], [place], [phone] GAP 8 (Normal) Range: 5-15 CO2 30.0 [...] 200 mg/dLsuggests DIABETES MELLITUS per A.D.A. criteria. 93-Mns-121535:47 BNP,B-Type NATRIURETIC PEPTIDE Comments: CALL RESULTS TO [phone] Van Wert Hospital Davcuxiuud[address] [place], [address] B-TYPE JUSTIN PEP 580.2 pg/mL (Abnormal) Range: 0-100 38-Ewr-923049:47 CBC W/Diff, Automated Comments: CALL RESULTS TO [phone] Van Wert Hospital Nptlhfnvqc15[address] [place], [address] Absolute Lymph 0.67 {X10_3/ul} (Abnormal) [...] 4.6-6.2 WBC 5.6 K/mm3 (Normal) Range: 4.4-11.0 23-Rrk-786248:47 Thyroid Stim Hormone (TSH) Comments: CALL RESULTS TO [phone] Van Wert Hospital R[address]flp[address] [place], [address] TSH 2.08 {uIU/mL} (Normal) Range: 0.358-3.74 14-Cig-99096:51 CBC, Platelets & Auto Diff Comments: PATIENT WAS FASTINGPERFORMED BY: LabCoRobert Wood Johnson University HospitalRqmbpq8024 [facility] [id number] (23416) Immature Grans (Abs) 0.0 {x10E3/uL} (Normal) Range: [...] 4.14-5.80 WBC 8.6 {x10E3/uL} (Normal) Range: 3.4-10.8 23-Dan-14701:51 Metabolic Panel, Comprehensive Comments: PATIENT WAS FASTINGPERFORMED BY: LabCoRobert Wood Johnson University HospitalHsaiox7917 [facility] [id number] (57406) ALT (SGPT) 16 [iU]/L (Normal) Range: 0-44 [...] 8-27 Glucose 122 mg/dL (Abnormal) Range: 65-99 10-Jqo-32639:51 TSH (27751) Comments: PATIENT WAS FASTINGPERFORMED BY: LabCo Irzpsh8075 [facility] [place] [id number] TSH 5.070 {uIU/mL} (Abnormal) Range: 0.450-4.500 46-Xbg-31911:51 CALCIFIDIOL (97640) VIT D 25 Comments: PATIENT WAS FASTINGPERFORMED BY: LabGeneral [facility] Slxuwr9675 [facility] [place] [id number] Vitamin D, 25-Hydroxy 27.8 ng/mL (Abnormal) Range: 30.0-100.0 Comments: Vitamin D deficiency has been defined by the [place] ofCosho[facility] Regional Medical Centercine and an Endocrine Society practice guideline as alevel of serum 25-OH vitamin D less than 20 ng/mL (1,2).The Endocrine Society went on to further define vitamin Dinsufficiency as a level between 21 and 29 ng/mL (2).1. IOM (Tenmile of Medicine). 2010. Dietary reference intakes for calcium and D. [place]: The National Academies Press.2. Yanna MF, Maral NC, Xander EDGAR, et al. Evaluation, treatment, and prevention of vitamin D deficiency: an Endocrine Society clinical practice guideline. JCEM. 2010; 96(7):1911-30. :51 Magnesium (80000) Comments: PATIENT WAS FASTINGPERFORMED BY: [employer] Wxqhkw4841 [facility] [place] [id number] Magnesium 1.9 mg/dL (Normal) Range: 1.6-2.3 0-Roy-232061:43 HgA1C , Office (36140) HgA1C , Office 7.3 % (Abnormal) Range: 4.6 - 7.1 :27 MICROALBUMIN: CREATININE Comments: PATIENT NOT FASTINGPERFORMED BY: LabGeneral [facility] Qxnfkw5354 [facility] [id number] Information: NURSE DRAW RATIO (52111) AND (31726) Microalb/Creat Ratio 89.4 {mg/g_creat} (Abnormal) Range: 0.0-30.0 Microalbumin, Urine 142.2 ug/mL (Normal) Creatinine, Urine 159.1 mg/dL (Normal) 31-Aug-20178:27 PARATHORMONE (17361) Comments: PATIENT NOT FASTINGPERFORMED BY: MobilitieCo Ddjuad1796 [facility] [id number] PTH, Intact 53 pg/mL (Normal) Range: 15-65 47-Snc-714633:15 TSH (01472) Comments: PATIENT NOT FASTINGPERFORMED BY: MobilitieCo Btlrcj5973 [facility] [id number] TSH 4.310 {uIU/mL} (Normal) Range: 0.450-4.500 44-Bpf-255828:15 METABOLIC PANEL, COMPREHENSIVE Comments: PATIENT NOT FASTINGPERFORMED BY: [employer] Zmtjxs4289 [facility] [id number] (13503) ALT (SGPT) 17 [iU]/L (Normal) Range: 0-44 [...] Glucose, Serum 231 mg/dL (Abnormal) Range: 65-99 80-Vrd-509998:15 CBC with auto diff (82319) Comments: PATIENT NOT FASTINGPERFORMED BY: [employer]Co Xcvzjc1037 [facility] [id number] Immature Grans (Abs) 0.0 {x10E3/uL} (Normal) Range: [...] 4.14-5.80 WBC 7.7 {x10E3/uL} (Normal) Range: 3.4-10.8 60-Mga-222776:15 CALCIFIDIOL (43244) VIT D 25 Comments: PATIENT NOT FASTINGPERFORMED BY: LabCo Ppqeok0494 [facility] [id number] Vitamin D, 25-Hydroxy 28.8 ng/mL (Abnormal) Range: 30.0-100.0 Comments: Vitamin D deficiency has been defined by the [place] ofMedicine and an Endocrine Society practice guideline as alevel of serum 25-OH vitamin D less than 20 ng/mL (1,2).The Endocrine Society went on to further define vitamin Dinsufficiency as a level between 21 and 29 ng/mL (2).1. IOM (Tenmile of Medicine). 2010. Dietary reference intakes for calcium and D. [place]: The National Academies Press.2. Yanna MF, Maral CALDERON, Xander EDGAR, et al. Evaluation, treatment, and prevention of vitamin D deficiency: an Endocrine Society clinical practice guideline. JCEM. 2010; 96(7):1911-30. :34 Blood Glucose , Office (13091) Blood Glucose , Office 221 (Normal) :34 HgA1C , Office (00630) HgA1C , Office 6.3 % (Normal) Range: 4.6 - 7.1 :10 CBC W/Diff, Automated Comments: [facility] T[address]phzpll[address] [place], [address] Absolute Lymph 1.60 {X10_3/ul} (Normal) Range: 0.83-4.51 [...] 4.6-6.2 WBC 7.5 K/mm3 (Normal) Range: 4.4-11.0 4-Rlu-983252:10 Comprehensive Metabolic Profil Comments: [facility] Zmvlahvrbo64[address] [place], [address] GAP 8 (Normal) Range: 5-15 CO2 29.0 [...] 200 mg/dLsuggests DIABETES MELLITUS per A.D.A. criteria. 8-Xij-630576:10 Prothrombin Time w/INR Comments: [facility] [address] [place], [place], [phone] INR 1.0 (Normal) PROTIME 13.1 s (Normal) Range: 11.7-14.9 :09 Bedside Glucose Comments: [facility] LaboratoryPoint of Nmkj[address] [place] [address] BEDSIDE GLU 249 mg/dL (Abnormal) Range: 70-110 Comments: MANAGEMENT OF PATIENT CARE PER NURSING PROTOCOL 86-Ycz-97214:55 Magnesium (75075) Comments: PATIENT WAS FASTINGPERFORMED BY: [employer] [place] [address] [id number] BY: QuantumSphere70 [facility] [id number] Magnesium, Serum 2.1 mg/dL (Normal) Range: 1.6-2.3 70-Lmz-45615:55 METABOLIC PANEL, Comments: PATIENT WAS FASTINGPERFORMED BY: [employer] LabJournallyMeFwmxwubgof4197 [facility] [id number] BY: [employer] LabEdgar Enjtzg7717 [facility] [id number] COMPREHENSIVE (28357) ALT (SGPT) 13 [iU]/L (Normal) Range: 0-44 [...] Glucose, Serum 120 mg/dL (Abnormal) Range: 65-99 64-Icl-54704:55 LIPOPROTEIN, BLD, BY NMR Comments: PATIENT WAS FASTINGPERFORMED BY: BN [facility] [address] [id number] BY: CB [facility] Iocvyq9262 [facility] [id number] (53332) LP-IR Score <25 (Normal) Comments: INSULIN RESISTANCE MARKER <--Insulin Sensitive Insulin Resistant--> Percentile in Reference PopulationInsulin Resistance ScoreLP-IR Score Low 25th 50th 75th High <27 27 45 63 >63LP-IR Score is inaccurate if patient is non-fasting. .The LP-IR score is a laboratory developed i [facility] that has beenassociated with insulin resistance and [...] 1600 - 2000 Very High > 2000 31-Qzb-61327:55 CALCIFIDIOL (42038) VIT D Comments: PATIENT WAS FASTINGPERFORMED BY: [employer] Rigxrnhrut5484 [facility] [id number] BY: Xyleme6370 [facility] [place] [id number] Vitamin D, 25-Hydroxy 35.2 ng/mL (Normal) Range: 30.0-100.0 Comments: Vitamin D deficiency has been defined by the [place] ofCosho[facility] Regional Medical Centercine and an Endocrine Society practice guideline as alevel of serum 25-OH vitamin D less than 20 ng/mL (1,2).The Endocrine Society went on to further define vitamin Dinsufficiency as a level between 21 and 29 ng/mL (2).1. IOM (Tenmile of Medicine). 2010. Dietary reference intakes for calcium and D. [place]: The National Academies Press.2. Yanna MF, Maral CALDERON, Xander EDGAR, et al. Evaluation, treatment, and prevention of vitamin D deficiency: an Endocrine Society clinical practice guideline. JCEM. 2010; 96(7):1911-30. 67-Dal-53182:55 PSA (Prostate Specific Comments: PATIENT WAS FASTINGPERFORMED BY: [place] 469267 [facility] [id number] BY: [employer] Inclin6370 [facility] [id number] Antigen), Screening (15071) Prostate Specific Ag, 1.2 ng/mL (Normal) Range: 0.0-4.0 Serum Comments: Erik ECLIA methodology. .According to the [place] Urological Association, Serum PSA shoulddecrease and remain at undetectable levels after radicalprostatectomy. The AUA defines biochemical recurrence as an initialPSA value 0.2 ng/mL or greater followed by a subsequent confirmatoryPSA value 0.2 ng/mL or greater.Values obtained with d ifferent assay methods or kits cannot be usedinterchangeably. Results cannot be interpreted as absolute evidenceof the presence or absence of malignant disease. 23-Hxq-585128:38 Blood Glucose , Office (81032) Blood Glucose , Office 160 (Normal) 09-Art-105250:00 CBC WITH MANUAL DIFF Comments: PATIENT NOT FASTINGPERFORMED BY: CB [facility] Vyaxnh3935 [facility] [id number] BY: BN [facility] Pmznwwopvb1688 [facility] [id number] Inf ormation: NURSE DRAW (48987) Immature Grans (Abs) 0.0 {x10E3/uL} (Normal) Range: [...] 4.14-5.80 WBC 5.9 {x10E3/uL} (Normal) Range: 3.4-10.8 14-Wne-168652:00 Vitamin B-12 Comments: PATIENT NOT FASTINGPERFORMED BY: [employer] [facility] Lznddk6459 [facility] [id number] BY: [employer] [id number] (cyanocobalamin) (23855) Vitamin B12 529 pg/mL (Normal) Range: 211-946 24-Qys-799192:00 Methymalonic Acid, Serum Comments: PATIENT NOT FASTINGPERFORMED BY: [employer] LabAppLift6[address] [facility] [id number] BY: [employer] [id number] (09020) Methylmalonic Acid, Serum 284 nmol/L (Normal) Range: 0-378 74-Kmo-520240:59 ANCA-C (ANTI NEUTROPHIL Comments: copy to Dr. [phone] all these now; PATIENT WAS FASTINGPERFORMED BY: Blueflyrp [address] [id number] BY: [employer] Lzihlc8388 [facility] Centero x [facility] [id number] CYTOPLASMIC ANTIBODY) Atypical pANCA <1:20 {titer} Comments: [...] follow up testing ofpositive sera with both OR-3 and MPO-ANCA enzyme immunoassays. Asmany as 5% serum samp les are positive only by EIA.Ref. AM J Clin Pathol 1999;111:507-513. Cytoplasmic (C-ANCA) <1:20 {titer} (Normal) Antiproteinase 3 (OR-3) Abs <3.5 U/mL (Normal) Range: 0.0-3.5 Antimyeloperoxidase (MPO) Abs <9.0 U/mL (Normal) Range: 0.0-9.0 63-Lsg-522614:59 Renal function Panel Comments: now; PATIENT WAS FASTINGPERFORMED BY: [employer] [place] [address] [id number] BY: [employer] [facility] [id number] (81454) Albumin, Serum 4.1 g/dL (Normal) Range: 3.5-4.8 [...] Glucose, Serum 166 mg/dL (Abnormal) Range: 65-99 20-Xjl-406229:59 LIPOPROTEIN, BLD, BY NMR Comments: now; PATIENT WAS FASTINGPERFORMED BY: MarketoInspira Medical Center Mullica HillInavaeabit86[address] [place] [address] [id number] BY: BinWiseRobert Wood Johnson University HospitalBjzejj0521 [facility] [id number] (69177) LP-IR Score 39 (Normal) Comments: INSULIN RESISTANCE MARKER <--Insulin Sensitive Insulin Resistant--> Percentile in Reference PopulationInsulin Resistance ScoreLP-IR Score Low 25th 50th 75th High <27 27 45 63 >63LP-IR Score is inaccurate if patient is non-fasting. .The LP-IR score is a laboratory developed i [facility] that has beenassociated with insulin resistance and [...] 1600 - 2000 Very High > 2000 80-Lna-074142:59 TSH (13724) Comments: PATIENT WAS FASTINGPERFORMED BY: Mobilitie[address] [id number] BY: LabCoFour Corners Regional Health CenterZadzdu5682 Sweeney RoadDublin [place] [id number] TSH 2.960 {uIU/mL} (Normal) Range: 0.450-4.500 38-Qzm-069467:59 COMPLEMENT C4 (30921) Comments: PATIENT WAS FASTINGPERFORMED BY: Mobilitie[address] [id number] BY: MarketoRobert Wood Johnson University HospitalCiyvdz0103 Sweeney RoadDublin [place] [id number] Complement C4, Serum 32 mg/dL (Normal) Range: 14-44 68-Cqt-421553:59 COMPLEMENT C3 (51754) Comments: PATIENT WAS FASTINGPERFORMED BY: Marketo[address] [id number] BY: MarketoRobert Wood Johnson University HospitalMjrgck3596 Sweeney RoadDublin [place] [id number] Complement C3, Serum 137 mg/dL (Normal) Range: 82-167 92-Iws-894050:59 MICROALBUMIN: CREATININE Comments: PATIENT WAS FASTINGPERFORMED BY: Mobilitie[address] [id number] BY: MarketoRobert Wood Johnson University HospitalUbxnzm8248 Sweeney RoadDublin [place] [id number] RATIO (86489) AND (10719) Microalb/Creat Ratio 118.3 {mg/g_creat} (Abnormal) Range: 0.0-30.0 Microalbumin, Urine 52.3 ug/mL (Normal) Creatinine, Urine 44.2 mg/dL (Normal) 65-Zpr-696599:59 SPEP (36873) Comments: PATIENT WAS FASTINGPERFORMED BY: Marketo[address] [id number] BY: MarketoRobert Wood Johnson University HospitalWibfjv9707 Sweeney RoadDublin [place] [id number] Please note: SPRCS (Normal) Comments: Protein electrophoresis scan will follow via computer, mail, orcourier delivery. A/G Ratio 1.2 (Normal) Range: 0.7-1.7 Globulin, Total 3.1 g/dL (Normal) Range: 2.2-3.9 M-Maxime Not Observed g/dL (Normal) Gamma Globulin 0.9 g/dL (Normal) Range: 0.4-1.8 Beta Globulin 1.1 g/dL (Normal) Range: 0.7-1.3 Dyxrl-9-Txqvvfve 0.9 g/dL (Normal) Range: 0.4-1.0 Qyjlj-6-Flpfstux 0.2 g/dL (Normal) Range: 0.0-0.4 Albumin 3.7 g/dL (Normal) Range: 2.9-4.4 Protein, Total, Serum 6.8 g/dL (Normal) Range: 6.0-8.5 59-Jkk-666235:59 DNA ANTIBODY-NATV/DBL ST Comments: PATIENT WAS FASTINGPERFORMED BY: [facility] [address] [id number] BY: [facility] Lmshio4948 [facility] [id number] (15579) test code 509621 Anti-DNA (DS) Ab Qn <1 {IU/mL} (Normal) Range: 0-9 Comments: Negative <5 Equivocal 5 - 9 Positive >9 03-Agk-193507:28 Alcohol, Blood (Medical)-Serum Comments: [facility] [address] [place], [address] SERUM ETOH < 3.0 mg/dL (Normal) Comments: The serum:whole blood ethanol ratio is approximately 1.14and varies slightly with hematocrit.Medical Alcohol reference interval and critical value innon-tolerant individuals; 50 - 100 Impairment 100 Intoxication 100 - 250 Severe Poisoning 250 - 400 Deep/possible fatal coma 30-Rni-843606:28 CBC W/Diff, Automated Comments: [facility] Vas[address]vmgdw[address] [place], [address] Absolute Lymph 1.85 {X10_3/ul} (Normal) [...] 4.6-6.2 WBC 7.1 K/mm3 (Normal) Range: 4.4-11.0 22-Yrq-351804:28 Comprehensive Metabolic Profil Comments: [facility] Anpjigbcli5[address] [place], [place], [address] GAP 10 (Normal) Range: 5-15 CO2 29.0 [...] 126 mg/dLsuggests DIABETES MELLITUS per A.D.A. criteria. 82-Zag-327450:28 Troponin-I Comments: 'TROP' Serial specimen #1, #2, #3, or #4: 1[facility] Ggucwenonv7635 [place], [place], [phone] TROPONIN-I 0.03 ng/mL (Normal) Comments: TROPONIN-I EXPECTED VALUES <0.05 NEGATIVE 0.06 - 0.59 AT RISK OF HI > OR = 0.60 SUGGEST HI 71-Ier-164369:08 HgA1C , Office (69322) HgA1C , Office 6.8 % (Normal) Range: 4.6 - 7.1 45-Yxu-78537:59 Metabolic Panel, Basic (34418) Comments: recheck in one week; PATIENT WAS FASTINGPERFORMED BY: LabCo Odhyij8134 [facility] [id number] Calcium, Serum 8.5 mg/dL (Abnormal) Range: 8.6-10.2 [...] Glucose, Serum 136 mg/dL (Abnormal) Range: 65-99 80-Gwi-114600:20 CBC (Auto) (70658) Comments: PATIENT NOT FASTINGPERFORMED BY: [employer] Axpnnd9048 [facility] [id number] Platelets 183 {x10E3/uL} (Normal) Range: 150-379 RDW 13.6 % (Normal) Range: 12.3-15.4 MCHC 34.8 g/dL (Normal) Range: 31.5-35.7 MCH 34.1 pg (Abnormal) Range: 26.6-33.0 MCV 98 fL (Abnormal) Range: 79-97 Hematocrit 40.5 % (Normal) Range: 37.5-51.0 Hemoglobin 14.1 g/dL (Normal) Range: 12.6-17.7 RBC 4.13 {x10E6/uL} (Abnormal) Range: 4.14-5.80 WBC 7.9 {x10E3/uL} (Normal) Range: 3.4-10.8 00-Gwt-876842:20 Magnesium (31004) Comments: PATIENT NOT FASTINGPERFORMED BY: LabCo Qfisfh9979 [facility] [id number] Magnesium, Serum 2.2 mg/dL (Normal) Range: 1.6-2.3 93-Mzo-784585:20 Renal function Panel (56166) Comments: PATIENT NOT FASTINGPERFORMED BY: [facility]Co Suzjvv5669 [facility] [id number] Albumin, Serum 4.2 g/dL (Normal) Range: 3.5-4.8 [...] Glucose, Serum 266 mg/dL (Abnormal) Range: 65-99 94-Egh-334880:54 Basic Metabolic Profile (BMP) Comments: Order Date: 12/25/16Order Info: 0667-1 - *BMPOrder Info: 23020-1 - *MagnesiumOrder Date: 12/25/16Order Info: 21375-6 - *MagnesiumComments: Reason:[facility] [address]izabbqoy[address] [place], [address] GAP 11 (Normal) Range: 5-15 CO2 30.0 [...] 200 mg/dLsuggests DIABETES MELLITUS per A.D.A. criteria. 39-Eor-547895:54 Magnesium Comments: Order Date: 12/25/16Order Info: 0667-1 - *BMPOrder Info: - *MagnesiumOrder Date: 12/25/16Order Info: - *MagnesiumComments: Reason:[facility] [address]ibgtq[address] [place], [place], [address](747) MG 2.0 mg/dL (Normal) Range: 1.8-2.4 72-Kra-079346:35 Basic Metabolic Profile (BMP) Comments: Order Date: 12/18/16Order Info: 0667-1 - *BMPOrder Info: - *MagnesiumComments: For [place] episodeOrder Info: 3026-2 - *T4 (Total)Comments: Reason: For [place] episoeOrder Info: 3016-3 - *TSHComments: [place] son: For [place] episodeOrder Date: 12/18/16Order Info: 3016-3 - *TSHComments: Reason: For [place] episodeWGeorgetown Behavioral Hospital Nubdecqxre[address] [place], [place], [address] GAP 12 (Normal) Range: 5-15 CO2 31.0 [...] 200 mg/dLsuggests DIABETES MELLITUS per A.D.A. criteria. 97-Wuf-734784:35 CBC-Complete Blood Cnt No Diff Comments: Order Date: 12/18/16Order Info: 3016-3 - *TSHComments: Reason: For [place] episodeOhiohealth Van Wert Hospital Uuvsrelvnl[address] [place], [place], [phone] MPV 10.7 fL (Normal) Range: 6.2-12.0 PLT [...] 4.6-6.2 WBC 8.1 K/mm3 (Normal) Range: 4.4-11.0 72-Wje-842366:35 Magnesium Comments: Order Date: 12/18/16Order Info: 0667-1 - *BMPOrder Info: 12905-9 - *MagnesiumComments: For [place] episodeOrder Info: 3026-2 - *T4 (Total)Comments: Reason: For [place] episoeOrder Info: 3016-3 - *TSHComments: [place] son: For [place] episodeOrder Date: 12/18/16Order Info: 3016-3 - *TSHComments: Reason: For [place] episodeOhiohealth [facility] Wert Hospital Feugnxuzaf[address] [place], [phone](154) MG 2.0 mg/dL (Normal) Range: 1.8-2.4 77-Qgk-993201:35 T4 Total, Thyroxin Comments: Order Date: 12/18/16Order Info: 0667-1 - *BMPOrder Info: 27559-0 - *MagnesiumComments: For [place] episodeOrder Info: 3026-2 - *T4 (Total)Comments: Reason: For [place] episoeOrder Info: 3016-3 - *TSHC omments: [place] son: For [place] episodeOrder Date: 12/18/16Order Info: 3016-3 - *TSHComments: Reason: For [place] episodeWGeorgetown Behavioral Hospital [address]ytiylwsbj[address] [place], [place], [address] T4 THYROXIN 11.3 ug/dL (Normal) Range: 4.5-12.1 96-Swd-419528:35 Thyroid Stim Hormone (TSH) Comments: Order Date: 12/18/16Order Info: 67-1 - *BMPOrder Info: 31527-0 - *MagnesiumComments: For [place] episodeOrder Info: 3026-2 - *T4 (Total)Comments: Reason: For [place] episoeOrder Info: 3016-3 - *TSHComments: [place] son: For [place] episodeOrder Date: 12/18/16Order Info: 3016-3 - *TSHComments: Reason: For [place] episodeWGeorgetown Behavioral Hospital [address]qdjhysr[address] [place], [place], [address] TSH 0.86 {uIU/mL} (Normal) Range: 0.358-3.74 7-Cmt-806917:05 PSA (Prostate Specific Comments: PATIENT NOT FASTINGPERFORMED BY: [facility]6370 [facility] [id number] Information: [id number] NURSE DRAW Antigen), Screening (80987) Prostate Specific Ag, 1.0 ng/mL (Normal) Range: 0.0-4.0 Serum Comments: Erik ECLIA methodology. .According to the [place] Urological Association, Serum PSA shoulddecrease and remain at undetectable levels after radicalprostatectomy. The AUA defines biochemical recurrence as an initialPSA value 0.2 ng/mL or greater followed by a subsequent confirmatoryPSA value 0.2 ng/mL or greater.Values obtained with d ifferent assay methods or kits cannot be usedinterchangeably. Results cannot be interpreted as absolute evidenceof the presence or absence of malignant disease. 51-Yvk-786167:01 Metabolic Panel, Basic Comments: copy to Dr. hu; PATIENT NOT FASTINGPERFORMED BY: LabCoRobert Wood Johnson University HospitalKjgwny9854 [facility] [id number] Information: [id number] (93333) Calcium, Serum 9.3 mg/dL (Normal) Range: 8.6-10.2 [...] Glucose, Serum 192 mg/dL (Abnormal) Range: 65-99 19-Apr-365531:49 BNTP (63276) Comments: PATIENT NOT FASTINGPERFORMED BY: LabCoTaking Point Qwdavu7372 [facility] [id number] Information: [id number] B-Type Natriuretic Peptide 273.9 pg/mL (Abnormal) Range: 0.0-100.0 8-Cuw-220241:01 HgA1C , Office (25843) HgA1C , Office 6.1 % (Normal) Range: 4.6 - 7.1 63-Mcx-328583:02 Basic Metabolic Profile (BMP) Comments: [facility] [address]roqoccue[address] [place], [place], [address] GAP 6 (Normal) Range: 5-15 CO2 26.0 [...] 126 mg/dLsuggests DIABETES MELLITUS per A.D.A. criteria. 28-Vrx-514455:02 BNP,B-Type NATRIURETIC PEPTIDE Comments: [facility] [address]gdzssc[address] [place], [place], [address] B-TYPE JUSTIN PEP 261.3 pg/mL (Abnormal) Range: 0-100 76-Udx-438002:22 TSH (71429) Comments: PATIENT NOT FASTINGPERFORMED BY: [facility] Jnqeag0242 [facility] [id number] TSH 3.740 {uIU/mL} (Normal) Range: 0.450-4.500 12-Xmn-274898:22 METABOLIC PANEL, COMPREHENSIVE Comments: PATIENT NOT FASTINGPERFORMED BY: [facility] Ovwcko4415 [facility] [id number] (66687) ALT (SGPT) 19 [iU]/L (Normal) Range: 0-44 [...] Glucose, Serum 155 mg/dL (Abnormal) Range: 65-99 61-Crk-388211:22 CBC W/AUTO DIFF WBC Comments: PATIENT NOT FASTINGPERFORMED BY: LabCoRobert Wood Johnson University HospitalUhkwjz1127 [facility] [id number] Information: [id number]; [address] (56998) Immature Grans (Abs) 0.0 {x10E3/uL} (Normal) Range: [...] (Normal) Range: 3.4-10.8 :57 HgA1C , Office (78557) HgA1C , Office 7.1 % (Normal) Range: 4.6 - 7.1 :13 Lipid Profile Comments: [facility] Oecjbnbxls3346 [facility] [place], [place], [address] VLDL 78 mg/dL (Abnormal) Range: 5-40 LDL [...] High Risk :13 Liver Profile Comments: [facility] [id number] [place], [place], [address] D BILI 0.10 mg/dL (Normal) Range: 0.00-0.30 T BILI 0.40 mg/dL (Normal) Range: 0.20-1.00 ALT 30 U/L (Normal) Range: 12-78 ALK P 99 U/L (Normal) Range: 50-136 AST 23 U/L (Normal) Range: 15-37 GLOB 3.6 g/dL (Abnormal) Range: 2.3-3.5 ALB 3.3 g/dL (Abnormal) Range: 3.4-5.0 T PROT 6.9 g/dL (Normal) Range: 6.4-8.2 [id number]:33 Blood Glucose , Office (92744) Blood Glucose , Office 184 (Normal) Comments: told to stop juices and tighten diet [id number]-[id number]:25 METABOLIC PANEL, BASIC Comments: PATIENT NOT FASTINGPERFORMED BY: [id number] [id number] Information: [id number]; [address]. [birth year][address][birth year] creat stayed same (07592) Calcium, Serum 9.0 mg/dL (Normal) Range: 8.6-10.2 [...] Glucose, Serum 127 mg/dL (Abnormal) Range: 65-99 21-Gst-224381:26 Metabolic Panel, Basic Comments: standing order; PATIENT NOT FASTINGPERFORMED BY: [facility]ilitieBr[facility] Hospital6370 [facility] [id number] Information: [id number] (79707) Calcium, Serum 9.1 mg/dL (Normal) Range: 8.6-10.2 [...] mg/dL (Abnormal) Range: 65-99 :36 CULTURE, SPUTUM (46694) Comments: PATIENT NOT FASTINGPERFORMED BY: Migoa70 [facility] [id number] Information: SRC:[facility] [id number] Result 1 RRF (Normal) Comments: Routine respiratory liu Lower Respiratory Culture Final report (Normal) :31 HgA1C , Office (12864) HgA1C , Office 6.4 % (Normal) Range: 4.6 - 7.1 :31 Blood Glucose , Office (22096) Blood Glucose , Office 282 (Normal) :38 PSA (PROSTATE SPECIFIC Comments: PATIENT NOT FASTINGPERFORMED BY: Migoa70 [facility] [id number] ANTIGEN) (V76.44) Prostate Specific Ag, 1.0 ng/mL (Normal) Range: 0.0-4.0 Serum Comments: [employer] ECLIA methodology. .According to the [employer] Association, Serum PSA shoulddecrease and remain at undetectable levels after radicalprostatectomy. The AUA defines biochemical recurrence as an initialPSA value 0.2 ng/mL or greater followed by a subsequent confirmatoryPSA value 0.2 ng/mL or greater.Values obtained with d ifferent assay methods or kits cannot be usedinterchangeably. Results cannot be interpreted as absolute evidenceof the presence or absence of malignant disease. :38 TSH (74706) Comments: PATIENT NOT FASTINGPERFORMED BY: Marketorp Sqrihe7880 [facility] [id number] TSH 4.310 {uIU/mL} (Normal) Range: 0.450-4.500 :38 Magnesium (89861) Comments: PATIENT NOT FASTINGPERFORMED BY: Marketo Oaokps0271 [facility] [id number] Magnesium, Serum 1.9 mg/dL (Normal) Range: 1.6-2.6 :38 Metabolic Panel, Comments: PATIENT NOT FASTINGPERFORMED BY: LabCoRobert Wood Johnson University HospitalEbzwwh2137 [facility] [id number] Information: [id number]; apt. [birth year] Comprehensive (09173) ALT (SGPT) 28 [iU]/L (Normal) Range: 0-44 [...] (Abnormal) Range: 65-99 :08 HgA1C , Office (59176) HgA1C , Office 6.5 % (Normal) Range: 4.6 - 7.1 :08 Blood Glucose , Office (26500) Blood Glucose , Office 277 (Normal) :52 CBC, Platelet, No Differential Comments: PATIENT WAS FASTINGPERFORMED BY: MarketoRobert Wood Johnson University HospitalSwszll8547 [facility] [id number] Platelets 184 {x10E3/uL} (Normal) Range: 150-379 RDW 14.1 % (Normal) Range: 12.3-15.4 MCHC 34.2 g/dL (Normal) Range: 31.5-35.7 MCH 33.7 pg (Abnormal) Range: 26.6-33.0 MCV 99 fL (Abnormal) Range: 79-97 Hematocrit 40.3 % (Normal) Range: 37.5-51.0 Hemoglobin 13.8 g/dL (Normal) Range: 12.6-17.7 RBC 4.09 {x10E6/uL} (Abnormal) Range: 4.14-5.80 WBC 8.2 {x10E3/uL} (Normal) Range: 3.4-10.8 :52 Renal Panel (10) Comments: PATIENT WAS FASTINGPERFORMED BY: MarketoRobert Wood Johnson University HospitalLwvauk0334 [facility] [id number] Information: [id number] Albumin, Serum 4.1 g/dL (Normal) Range: 3.5-4.8 [...] :05 Lipid Profile Comments: Test performed at:[facility] [address] [place] [address] VLDL 35 mg/dL (Normal) Range: [...] 200-240 mg/dL Borderline >240 mg/dL High Risk 03-Mar-20159:05 Liver Profile Comments: Test performed at:[facility] Hrwpugdovy[address] [place], [place] [id number] D BILI 0.20 mg/dL (Normal) Range: 0.00-0.30 T BILI 0.70 mg/dL (Normal) Range: 0.00-4.00 ALT 27 U/L (Normal) Range: 12-78 ALK P 80 U/L (Normal) Range: 50-136 AST 26 U/L (Normal) Range: 15-37 GLOB 3.4 g/dL (Normal) Range: 2.7-4.2 ALB 3.7 g/dL (Normal) Range: 3.4-5.0 T PROT 7.1 g/dL (Normal) Range: 6.4-8.2 48-Ahp-445699:47 Vitamin B-12 Comments: these today; PATIENT NOT FASTINGPERFORMED BY: Xyleme6370 SweeneyConstellation Pharmaceuticalsholy [facility] [place] [id number] BY: Lab[address] [id number] (cyanocobalamin) (21630) Vitamin B12 526 pg/mL (Normal) Range: 211-946 62-Xep-394900:47 RETICULOCYTE COUNT (56984) Comments: PATIENT NOT FASTINGPERFORMED BY: LabFreeLunched Xwxyas7674 [address] MalibuIQblin [place] [id number] BY: Marketo[address] [id number] Reticulocyte Count 2.1 % (Normal) Range: 0.6-2.6 02-Ckl-363727:47 Folic Acid Serum (42388) Comments: PATIENT NOT FASTINGPERFORMED BY: MarketoRobert [place]ille 2184770 [facility] [id number] BY: [address] [id number] Information: [id number] Folate (Folic Acid), Serum >20.0 ng/mL (Normal) Comments: A serum folate concentration of less than 3.1 ng/mL isconsidered to represent clinical deficiency. 50-Ryi-756642:47 Methymalonic Acid, Serum Comments: PATIENT NOT FASTINGPERFORMED BY: MarketoRobert Ville 2184770 [facility] [id number] BY: Marketo[address] [id number] (81792) Methylmalonic Acid, Serum 219 nmol/L (Normal) Range: 0-378 :42 HgA1C , Office (74832) HgA1C , Office 6.5 % (Normal) Range: 4.6 - 7.1 :42 Blood Glucose , Office (14264) Blood Glucose , Office 194 (Normal) 79-Vei-884335:13 Basic Metabolic Profile (BMP) Comments: Test performed at:[facility] [address]flppkzwj[address] [place] [address] GAP 8 (Normal) Range: 5-15 CO2 28.0 [...] 126 mg/dLsuggests DIABETES MELLITUS per A.D.A. criteria. 95-Njg-21729:22 Basic Metabolic Profile (BMP) Comments: Test performed at:[facility] Eakllnewyd0404 [facility] [place] [address] GAP 6 (Normal) Range: 5-15 [...] :22 BNP,B-Type NATRIURETIC PEPTIDE Comments: Test performed at:[facility] Crclmirref7160 [facility] [place] [address] B-TYPE JUSTIN PEP 337.5 pg/mL (Abnormal) Range: 0-100 39-Qoy-646123:19 Magnesium (96281) Comments: 2 weeks and in three months (approximately); PATIENT WAS FASTINGPERFORMED BY: [facility] Trusyq3984 [facility] [id number] Magnesium, Serum 1.9 mg/dL (Normal) Range: 1.6-2.6 96-Khx-731851:19 Renal function Panel (54714) Comments: 2 weeks; PATIENT WAS FASTINGPERFORMED BY: [facility] Zwxllv1859 [facility] [id number] Phosphorus, Serum 3.2 mg/dL (Normal) Range: 2.5-4.5 45-Xkh-138595:19 TSH (53653) Comments: PATIENT WAS FASTINGPERFORMED BY: SLAVA MarketoFour Corners Regional Health CenterXxlghv9630 [facility] [id number] TSH 2.460 {uIU/mL} (Normal) Range: 0.450-4.500 41-Bgf-858567:19 METABOLIC PANEL, COMPREHENSIVE Comments: PATIENT WAS FASTINGPERFORMED BY: MarketoFour Corners Regional Health CenterRudrjj3411 [facility] [id number] (50818) ALT (SGPT) 21 [iU]/L (Normal) Range: 0-44 [...] Glucose, Serum 131 mg/dL (Abnormal) Range: 65-99 21-Dyn-875548:19 LIPID PANEL (76517) Comments: PATIENT WAS FASTINGPERFORMED BY: MarketoFour Corners Regional Health CenterHhvqco6867 [facility] [id number] LDL/HDL Ratio 0.7 {ratio_units} (Normal) Range: 0.0-3.6 [...] Cholesterol, Total 118 mg/dL (Normal) Range: 100-199 41-Ize-387721:19 CBC W/AUTO DIFF WBC Comments: PATIENT WAS FASTINGPERFORMED BY: [facility] Mxextp9027 [facility] [id number] Information: [id number] (33327) Immature Grans (Abs) 0.0 {x10E3/uL} (Normal) Range: [...] Range: 3.4-10.8 :38 Blood Glucose , Office (58597) Blood Glucose , Office 229 (Normal) :38 HgA1C , Office (89633) HgA1C , Office 6.7 % (Normal) Range: 4.6 - 7.1 82-Arq-196297:23 Basic Metabolic Profile (BMP) Comments: Test performed at:[facility] Ygsdlmjtki4388 [place], [place] [address] GAP 6 (Normal) Range: 5-15 CO2 28.0 [...] 126 mg/dLsuggests DIABETES MELLITUS per A.D.A. criteria. 47-Car-225948:23 BNP,B-Type NATRIURETIC PEPTIDE Comments: Test performed at:[facility] Mcejrdjypl5027 [place] [address] B-TYPE JUSTIN PEP 348.7 pg/mL [...] pg/mL (Abnormal) Range: 0-100 :47 CBC (Auto) (66848) Comments: PATIENT NOT FASTINGPERFORMED BY: MarketoRobert Wood Johnson University HospitalNtjwjd3558 [facility] [id number] Platelets 165 {x10E3/uL} (Normal) Range: 150-379 RDW 13.9 % (Normal) Range: 12.3-15.4 MCHC 34.3 g/dL (Normal) Range: 31.5-35.7 MCH 33.8 pg (Abnormal) Range: 26.6-33.0 MCV 99 fL (Abnormal) Range: 79-97 Hematocrit 38.5 % (Normal) Range: 37.5-51.0 Hemoglobin 13.2 g/dL (Normal) Range: 12.6-17.7 RBC 3.91 {x10E6/uL} (Abnormal) Range: 4.14-5.80 WBC 6.7 {x10E3/uL} (Normal) Range: 3.4-10.8 :47 Renal function Panel Comments: PATIENT NOT FASTINGPERFORMED BY: MarketoRobert Wood Johnson University HospitalWdutqz4469 [facility] [id number] Information: [id number] (91987) Albumin, Serum 4.0 g/dL (Normal) Range: 3.5-4.8 [...] 144 mg/dL (Abnormal) Range: 65-99 :47 MAGNESIUM (16051) Comments: PATIENT NOT FASTINGPERFORMED BY: LabCoRobert Wood Johnson University HospitalGymwmi9876 [facility] [id number] Magnesium, Serum 1.7 mg/dL (Normal) Range: 1.6-2.6 :28 HgA1C , Office (80032) HgA1C , Office 6.6 % (Normal) Range: 4.6 - 7.1 :28 Blood Glucose , Office (26200) Blood Glucose , Office 148 (Normal) :54 [...] 4.4-11.0 :54 CMP Comments: DR HU ORDERED BMPMICHELLE ANDREW [...] CHOL 130 mg/dL (Normal) Comments: <200 mg/dL Pvfnlewua657-948 mg/dL Borderline>240 mg/dL High Risk HDL 62 [...] ORDERED SHAYY ANDREW ORDERED CBCD TSH T4DR BONEZZShun ORDERED PSA TSH CBCD LIPID CMP MIAMAG ADDED PER REQUEST Range: 0.00-4.00 Comments: This test was performed using the TPSA assay method for theSierra Vista Regional Medical CenterGeogoer chemistry system. Values obtained with differentassay methods cannot be used interchangably.When changing PSA assays in the course of monitoring apatient, additional sequential testing should be carriedout to confirm baseline values. :54 T4 8.3 ug/dL (Normal) Comments: DR HU ORDERED BMPMICKADI ANDREW ORDERED CBCD TSH T4DR BONEZZI ORDERED PSA TSH CBCD LIPID CMP MIAMAG ADDED PER REQUEST Range: 4.5-12.1 :54 TSH 2.50 {uIU/mL} (Normal) Comments: DR HU ORDERED BMPDEBORAHKADI ANDREW ORDERED CBCD TSH T4DR BONEZZI ORDERED PSA TSH CBCD LIPID CMP MIAMAG ADDED PER REQUEST Range: 0.358-3.74 25-Und-830447:13 BMP GAP 7 (Normal) Range: 5-15 CO2 [...] in 1-2 weeks; PATIENT NOT FASTINGPERFORMED BY: LabCoRobert Wood Johnson University HospitalNhuniv3674 [facility] [id number] Information: [id number] (55419) Calcium, Serum 8.7 mg/dL (Normal) Range: 8.6-10.2 [...] Glucose, Serum 161 mg/dL (Abnormal) Range: 65-99 58-Rjh-291264:00 BNTP (04332) Comments: PATIENT NOT FASTINGPERFORMED BY: [employer] [facility] [id number] Information: [id number] ORDER NO DRAW F EE B-Type Natriuretic Peptide 899.8 pg/mL (Abnormal) Range: 0.0-100.0 16-Awv-228446:14 CULTURE, SPUTUM (49645) Comments: PATIENT NOT FASTINGPERFORMED BY: [employer] [facility] [id number] Result 1 RRF (Normal) Comments: Routine respiratory liu Lower Respiratory Culture Final report (Normal) 78-Tst-890636:00 Metabolic Panel, Basic Comments: PATIENT NOT FASTINGPERFORMED BY: Marketo Fqzlwt8563 [facility] [id number] Information: [id number] (92926) Calcium, Serum 8.6 mg/dL (Normal) Range: 8.6-10.2 [...] Glucose, Serum 129 mg/dL (Abnormal) Range: 65-99 20-Daa-591758:22 CBC WITH MANUAL DIFF Comments: all copies of labs to Dr. hu; PATIENT WAS FASTINGPERFORMED BY: BinWise [facility] [id number] Information: [id number] (07350) Immature Grans (Abs) 0.0 {x10E3/uL} (Normal) Range: [...] 4.14-5.80 WBC 7.7 {x10E3/uL} (Normal) Range: 3.4-10.8 00-Ung-513090:22 MICROALBUMIN: CREATININE RATIO Comments: PATIENT WAS FASTINGPERFORMED BY: LabCoRobert Wood Johnson University HospitalPiueby1969 [facility] [id number] (00828) AND (92597) Microalb/Creat Ratio 135.4 {mg/g_creat} (Abnormal) Range: 0.0-30.0 Creatinine, Urine 126.0 mg/dL (Normal) Range: 22.0-328.0 Microalbumin, Urine 170.6 ug/mL (Abnormal) Range: 0.0-17.0 :22 METABOLIC PANEL, COMPREHENSIVE Comments: PATIENT WAS FASTINGPERFORMED BY: Marketo Kvrjbe0342 [facility] [id number] (99954) ALT (SGPT) 14 [iU]/L (Normal) Range: 0-44 [...] mg/dL (Abnormal) Range: 65-99 :22 LIPID PANEL (19956) Comments: PATIENT WAS FASTINGPERFORMED BY: Marketo Enfaiz6922 [facility] [id number] LDL/HDL Ratio 0.8 {ratio_units} (Normal) Range: 0.0-3.6 LDL Cholesterol Calc 40 mg/dL (Normal) Range: 0-99 VLDL Cholesterol Mike 27 mg/dL (Normal) Range: 5-40 HDL Cholesterol 53 mg/dL (Normal) Comments: According to ATP-III Guidelines, HDL-C >59 mg/dL is considered anegative risk factor for CHD. Triglycerides 134 mg/dL (Normal) Range: 0-149 Cholesterol, Total 120 mg/dL (Normal) Range: 100-199 53-Rgq-997632:22 TSH (63607) Comments: PATIENT WAS FASTINGPERFORMED BY: QuantumSphere70 [facility] [id number] TSH 3.630 {uIU/mL} (Normal) Range: 0.450-4.500 :34 Blood Glucose , Office (59172) Blood Glucose , Office 164 (Normal) :34 HgA1C , Office (09714) HgA1C , Office 6.4 % (Normal) Range: 4.6 - 7.1 :31 LIPID PANEL (57478) Comments: copy all labs to [employer]; PATIENT WAS FASTINGPERFORMED BY: MarketoRobert Wood Johnson University HospitalCsjyys9017 [facility] [id number] LDL/HDL Ratio 0.9 {ratio_units} (Normal) Range: 0.0-3.6 [...] (PROSTATE SPECIFIC Comments: PATIENT WAS FASTINGPERFORMED BY: [employer] Heyxlw6033 [facility] [id number] ANTIGEN) (V76.44) Prostate Specific Ag, 1.3 ng/mL (Normal) Range: 0.0-4.0 Serum Comments: MozyIA methodology. .According to the [employer] U[employer] Association, Serum PSA shoulddecrease and remain at undetectable levels after radicalprostatectomy. The AUA defines biochemical recurrence as an initialPSA value 0.2 ng/mL or greater followed by a subsequent confirmatoryPSA value 0.2 ng/mL or greater.Values obtained with d ifferent assay methods or kits cannot be usedinterchangeably. Results cannot be interpreted as absolute evidenceof the presence or absence of malignant disease. : TSH (23730) Comments: PATIENT WAS FASTINGPERFORMED BY: [employer]o Rbtjuj8833 [facility] [id number] TSH 3.240 {uIU/mL} (Normal) Range: 0.450-4.500 :31 MICROALBUMIN: CREATININE RATIO Comments: PATIENT WAS FASTINGPERFORMED BY: BinWise Cnrrek6293 [facility] [id number] (86817) AND (12355) Microalb/Creat Ratio 51.5 {mg/g_creat} (Abnormal) Range: 0.0-30.0 Microalbumin, Urine 104.3 ug/mL (Abnormal) Range: 0.0-17.0 Creatinine, Urine 202.4 mg/dL (Normal) Range: 22.0-328.0 :31 METABOLIC PANEL, COMPREHENSIVE Comments: PATIENT WAS FASTINGPERFORMED BY: BinWiseRobert Wood Johnson University HospitalRuhzmd8876 [facility] [id number] (03379) ALT (SGPT) 13 [iU]/L (Normal) Range: 0-44 [...] Glucose, Serum 122 mg/dL (Abnormal) Range: 65-99 83-Rgj-12517:31 CBC WITH MANUAL DIFF Comments: PATIENT WAS FASTINGPERFORMED BY: LabCoRobert Wood Johnson University HospitalTfgfqn3507 [facility] [id number] Information: ADD [id number] AND DRAW FEE 99 0640 (75735) Immature Grans (Abs) 0.0 {x10E3/uL} (Normal) Range: [...] interval change :42 Blood Glucose , Office (72288) Blood Glucose , Office 171 (Normal) :41 HgA1C , Office (23899) HgA1C , Office 6.1 % (Normal) Range: [...] Sue M.D.December 11, 2012 at 4:00:01 PM [id number] Signed GP/GP If you are the referring physician and would like to consult with theradiologist who provided this interpretation, please contact James Trejo at . If this radiologist is unavailable, youwill be directed to another radiologist to assist. If you are a patient with a question regarding this report, pleasecontactyour referring physician directly. Professional Interpretation Provided By: BlogCN, Phone , These documents contain legally protected [...] documents. Dictated on 12/11/12 1533 by Rafy Sue MDranscribed on 12/11/12 1604 by ITS IMPORTSign by Louis Sue MD on 12/11/12 1605 Sign by: Louis Sue MD 51-Uzm-83373:56 CBC, Platelets & Auto Diff Comments: PATIENT NOT FASTINGPERFORMED BY: [facility] Ucijih2881 [facility] [id number] Information: [id number] (44384) Immature Grans (Abs) 0.0 {x10E3/uL} (Normal) Range: [...] (Normal) Range: 4.0-10.5 :56 Metabolic Panel, Basic (92749) Comments: PATIENT NOT FASTINGPERFORMED BY: LabCoRobert Wood Johnson University HospitalDbjoko0600 [facility] [id number] Calcium, Serum 9.5 mg/dL (Normal) Range: 8.6-10.2 [...] Range: 65-99 :03 Blood Glucose , Office (74303) Blood Glucose , Office 185 (Normal) :03 HgA1C , Office (90041) HgA1C , Office 5.6 % (Normal) Range: 4.6 - 7.1 7-Nvr-384974:36 CBC WITH MANUAL DIFF Comments: send cardiology Dr. hu; PATIENT WAS FASTINGPERFORMED BY: LabCoRobert Wood Johnson University HospitalQskktw6844 [facility] [id number] Information: [id number] (85368) Immature Grans (Abs) 0.0 {x10E3/uL} (Normal) Range: [...] 4.14-5.80 WBC 10.9 {x10E3/uL} (Abnormal) Range: 4.0-10.5 3-Ujw-613588:36 MICROALBUMIN: CREATININE RATIO Comments: PATIENT WAS FASTINGPERFORMED BY: QuantumSphere70 [facility] [id number] (52917) AND (77477) Microalb/Creat Ratio 37.8 {mg/g_creat} (Abnormal) Range: 0.0-30.0 Creatinine, Urine 138.0 mg/dL (Normal) Range: 22.0-328.0 Microalbumin, Urine 52.1 ug/mL (Abnormal) Range: 0.0-17.0 5-Feg-975580:36 METABOLIC PANEL, COMPREHENSIVE Comments: PATIENT WAS FASTINGPERFORMED BY: Xyleme6370 [facility] Surgerycloud.IQUNC Health Blue Ridge [id number] (71340) ALT (SGPT) 17 [iU]/L (Normal) Range: 0-44 [...] Glucose, Serum 109 mg/dL (Abnormal) Range: 65-99 7-Mvm-292616:36 LIPID PANEL (83143) Comments: PATIENT WAS FASTINGPERFORMED BY: MarketoFour Corners Regional Health CenterNvvdzl1286 [facility] [id number] LDL Cholesterol Calc 52 mg/dL (Normal) Range: 0-99 LDL/HDL Ratio 0.9 {ratio_units} (Normal) Range: 0.0-3.6 HDL Cholesterol 58 mg/dL (Normal) Comments: According to ATP-III Guidelines, HDL-C >59 mg/dL is considered anegative risk factor for CHD. VLDL Cholesterol Mike 21 mg/dL (Normal) Range: 5-40 Cholesterol, Total 131 mg/dL (Normal) Range: 100-199 Triglycerides 103 mg/dL (Normal) Range: 0-149 5-Gxb-738826:14 Blood Glucose , Office (78410) Blood Glucose , Office 171 (Normal) Comments: had toast for breakfast 4-Onj-024450:07 HgA1C , Office (76676) HgA1C , Office 6.0 % (Normal) Range: 4.6 - 7.1 3-Aqr-457383:07 Blood Glucose , Office (72144) Blood Glucose , Office 192 (Normal) 4-Wvx-632958:45 MICROALBUMIN: CREATININE RATIO Comments: PATIENT WAS FASTINGPERFORMED BY: MarketoRobert Wood Johnson University HospitalCidvfv1402 [facility] [id number] (55841) AND (70589) Microalb/Creat Ratio 218.7 {mg/g_creat} (Abnormal) Range: 0.0-30.0 Microalbumin, Urine 359.3 ug/mL (Abnormal) Range: 0.0-17.0 Creatinine, Urine 164.3 mg/dL (Normal) Range: 22.0-328.0 1-Csn-708320:45 METABOLIC PANEL, COMPREHENSIVE Comments: PATIENT WAS FASTINGPERFORMED BY: LabCoRobert Wood Johnson University HospitalTlxndv8916 [facility] [id number] (25210) ALT (SGPT) 11 [iU]/L (Normal) Range: 0-55 [...] Glucose, Serum 125 mg/dL (Abnormal) Range: 65-99 7-Kkm-917877:45 LIPID PANEL (37847) Comments: PATIENT WAS FASTINGPERFORMED BY: LabCoRobert Wood Johnson University HospitalKszfgp6626 [facility] [id number] LDL/HDL Ratio 0.6 {ratio_units} (Normal) Range: 0.0-3.6 [...] MANUAL DIFF Comments: PATIENT WAS FASTINGPERFORMED BY: LabCoFour Corners Regional Health CenterNvijqb0987 [facility] [id number] Information: [id number] (82062) Immature Grans (Abs) 0.0 {x10E3/uL} (Normal) Range: [...] 4.14-5.80 WBC 6.1 {x10E3/uL} (Normal) Range: 4.0-10.5 0-Jpm-511898:41 HgA1C , Office (75308) HgA1C , Office 5.5 % (Normal) Range: 4.6 - 7.1 :41 Blood Glucose , Office (56726) Blood Glucose , Office 148 (Normal) :00 CBC (Auto) (73662) Comments: PATIENT NOT FASTINGPERFORMED BY: MarketoFour Corners Regional Health CenterSbeesp6986 [facility] [id number] Information: [id number] Platelets 215 {x10E3/uL} (Normal) Range: 140-415 RDW 15.4 % (Abnormal) Range: 11.7-15.0 MCHC 32.3 g/dL (Normal) Range: 32.0-36.0 MCH 30.5 pg (Normal) Range: 27.0-34.0 MCV 94 fL (Normal) Range: 80-98 Hematocrit 39.0 % (Normal) Range: 36.0-50.0 Hemoglobin 12.6 g/dL (Normal) Range: 12.5-17.0 RBC 4.13 {x10E6/uL} (Normal) Range: 4.10-5.60 WBC 7.2 {x10E3/uL} (Normal) Range: 4.0-10.5 :13 HgA1C , Office (54545) HgA1C , Office 5.3 % (Normal) Range: 4.6 - 7.1 :13 Blood Glucose , Office (96724) Blood Glucose , Office 146 (Normal) :12 Microscopic Examination Comments: PATIENT WAS FASTINGPERFORMED BY: LabFreeLunchedRobert Wood Johnson University HospitalRmpkly1693 [facility] [id number] Bacteria None seen (Normal) Mucus Threads Present (Normal) Epithelial Cells (non renal) 0-10 {/hpf} (Normal) Range: 0 - 10 RBC 0-3 {/hpf} (Normal) Range: 0 - 3 WBC 0-5 {/hpf} (Normal) Range: 0 - 5 :12 PSA (PROSTATE SPECIFIC Comments: PATIENT WAS FASTINGPERFORMED BY: MarketoFour Corners Regional Health CenterIfqsvq5165 [facility] [id number] ANTIGEN) (V76.44) Prostate Specific Ag, 1.0 ng/mL (Normal) Range: 0.0-4.0 Serum Comments: Erik ECLIA methodology. .According to the [employer] U[employer] Association, Serum PSA shoulddecrease and remain [...] of malignant disease. :12 URINALYSIS, W/ MICRO (41308) Comments: PATIENT WAS FASTINGPERFORMED BY: Mensia TechnologiesUniversity of Kentucky Children[facility] Hospital [id number] Microscopic Examination See below: (Normal) Microscopic Examination MICRON (Normal) Comments: Microscopic follows if indicated. Nitrite, Urine Negative (Normal) Urobilinogen,Semi-Qn 0.2 mg/dL (Normal) Range: 0.0-1.9 Bilirubin Negative (Normal) Ketones Negative (Normal) Occult Blood Negative (Normal) Glucose Negative (Normal) Protein Negative (Normal) WBC Esterase Negative (Normal) Appearance Clear (Normal) pH 7.5 (Normal) Range: 5.0-7.5 Urine-Color Yellow (Normal) Specific Oketo 1.013 (Normal) Range: 1.005-1.030 :12 METABOLIC PANEL, COMPREHENSIVE Comments: PATIENT WAS FASTINGPERFORMED BY: Xyleme6370 [facility] AllograftsUNC Health Blue Ridge [id number] (44025) ALT (SGPT) 13 [iU]/L (Normal) Range: 0-55 [...] MANUAL DIFF Comments: PATIENT WAS FASTINGPERFORMED BY: LabCoRobert Wood Johnson University HospitalVkumcn4268 [facility] [id number] Information: [id number] (53704) Immature Grans (Abs) 0.0 {x10E3/uL} (Normal) Range: [...] {x10E3/uL} (Normal) Range: 4.0-10.5 :12 LIPID PANEL (05474) Comments: PATIENT WAS FASTINGPERFORMED BY: Appiness Inclin6370 [facility] [id number] LDL/HDL Ratio 0.9 {ratio_units} (Normal) Range: 0.0-3.6 LDL Cholesterol Calc 52 mg/dL (Normal) Range: 0-99 VLDL Cholesterol Mike 18 mg/dL (Normal) Range: 5-40 HDL Cholesterol 60 mg/dL (Normal) Comments: According to ATP-III Guidelines, HDL-C >59 mg/dL is considered anegative risk factor for CHD. Cholesterol, Total 130 mg/dL (Normal) Range: 100-199 Triglycerides 92 mg/dL (Normal) Range: 0-149 :32 HgA1C , Office (32187) HgA1C , Office 6.0 % (Normal) Range: 4.6 - 7.1 :32 Blood Glucose , Office (23688) Blood Glucose , Office 128 (Normal) :24 LIPID PANEL (55175) Comments: PATIENT NOT FASTINGPERFORMED BY: BinWiseRobert Wood Johnson University HospitalPkwsfo7641 [facility] [id number] Information: [id number] LDL Cholesterol Calc 33 mg/dL (Normal) Range: [...] Panel, Basic Comments: PATIENT NOT FASTINGPERFORMED BY: [id number] [facility] [id number] Information: [id number] (30078) Calcium, Serum 9.0 mg/dL (Normal) Range: 8.6-10.2 [...] 149 mg/dL (Abnormal) Range: 65-99 :56 Ferritin (41771) Comments: PATIENT NOT FASTINGPERFORMED BY: [employer] [id number] [facility] [id number] Ferritin, Serum 221 ng/mL (Normal) Range: 30-400 :19 Blood Glucose , Office (37292) Blood Glucose , Office 134 (Normal) :00 [...] 0.8-1.3 GLU 67 mg/dL (Abnormal) Range: 70-110 90-Jvn-416594:29 HIP, MIN 2 VIEWS Radiology Report See [...] by Isabel Calderónscribed on 10/13/10 1038 by Halima COOPERgn by King Calderón on 10/14/10 1005 Sign by: King Calderón 29-Keu-231135:28 HIP, MIN 2 VIEWS Radiology Report See [...] noted above. Dictated on 10/13/10 1028 by Haroldo Nguyenribed on 10/13/10 1028 by Mark COOPER n by King Calderón on 10/14/10 1005 Sign by: King Calderón :01 HgA1C , Office (13331) HgA1C , Office 6.7 % (Normal) Range: 4.6 - 7.1 :01 Blood Glucose , Office (94297) Blood Glucose , Office 163 (Normal) 99-Zkj-168281:39 CBCD,SMEAR DIFF RED CELL MORPH SeeNote {NORMAL} [...] 4.6-6.2 WBC 8.4 K/mm3 (Normal) Range: 4.4-11.0 82-Aay-724051:39 COMP METABOLIC CL 102 mmol/L (Normal) Range: [...] mg/dL High Risk :57 HgA1C , Office (40020) HgA1C , Office 6.5 % (Normal) Range: 4.6 - 7.1 :57 Blood Glucose , Office (81275) Blood Glucose , Office 155 (Normal) :58 CREAT CLR 24H U Comments: STARTED URINE @8AM /8ENDED URINE @8AM 07/07 CREAT CLEARANCE 62 ml/min (Abnormal) Range: 100-200 EST GFR 46 mL/min (Abnormal) SERUM CREAT 1.6 mg/dL (Abnormal) Range: 0.8-1.3 URINE CREAT 98.2 mg/dL (Normal) UR TOTAL VOLUME 1475 mL (Normal) UR COLLECT TIME 24.0 {HOURS} (Normal) :58 PROU 24HR Comments: STARTED URINE @8AM /8ENDED URINE @8AM /9 24hr UR PROTEIN 177 {MG/24HR} (Abnormal) UR [...] 136-145 GLU 107 mg/dL (Normal) Range: 70-110 04-Xwl-48841:27 BMP CL 97 mmol/L (Abnormal) Range: 98-107 [...] 136-145 GLU 88 mg/dL (Normal) Range: 70-110 60-Zhw-377367:32 TESTICULAR (HP) Radiology Report See Note (Normal) Comments: Exam Number: [id number] CLINICAL:This is a 70-year-old male patient with [...] testicles are unremarkable. Reported By: LOUIS SUE 10-Wyf-959593:00 Urinalysis, Office (10365) UA - LEUKOCYTE ESTERASE Negative (Normal) UA - NITRITE Negative (Normal) URINE UROBILINGN CASPER TIMED Normal mg/dL (Normal) UA - PROTEIN 30 mg/dL (Normal) UA - PH 6.0 (Normal) Comments: 5.5 UA - BLOOD Negative (Normal) UA - SPECIFIC GRAVITY 1.025 (Normal) UA - KETONES Negative mg/dL (Normal) UA - BILIRUBIN Negative (Normal) UA - GLUCOSE Negative (Normal) 51-Atl-20708:10 HgA1C , Office (68179) HgA1C , Office 5.5 % (Normal) Range: 4.6 - 7.1 35-Snb-50960:10 Blood Glucose , Office (10496) Blood Glucose , Office 176 (Normal) 65-Bzl-754479:38 ABDOMEN/PELVIS WITH CONTRAST Radiology Report See Note (Normal) Comments: Exam Number: [id number] CLINICAL:70-year-old male with abdominal pain CT ABDOMEN [...] adrenal gland. Reported By: KING CALDERÓN M.D. 79-Upd-798074:00 CBCD ABSOLUTE NEUT 7.8 3/uL (Abnormal) Range: [...] 4.6-6.2 WBC 10.9 K/mm3 (Normal) Range: 4.4-11.0 61-Tbm-773477:00 COMP METABOLIC ALK P 57 U/L (Normal) [...] CHOL 141 mg/dL (Normal) Comments: <200 mg/dL Tesenrdta101-698 mg/dL Borderline>240 mg/dL High Risk :33 LIVER ALK P 53 U/L (Normal) Range: 50-136 ALT 25 U/L (Normal) Range: 12-78 D BILI 0.09 mg/dL (Normal) Range: 0.00-0.30 T BILI 0.30 mg/dL (Normal) Range: 0.00-1.00 ALB 3.9 g/dL (Normal) Range: 3.4-5.0 AST 23 U/L (Normal) Range: 15-37 T PROT 7.8 g/dL (Normal) Range: 6.4-8.2 :09 HgA1C , Office (63702) HgA1C , Office 6.6 % (Normal) Range: 4.6 - 7.1 :09 Blood Glucose , Office (93969) Blood Glucose , Office 243 (Normal) :38 [...] CHOL 132 mg/dL (Normal) Comments: <200 mg/dL Ouifkhjdl954-182 mg/dL Borderline>240 mg/dL High Risk :38 LIVER [...] PSA Range: 0.0-4.0 :10 HgA1C , Office (38863) HgA1C , Office 6.1 % (Normal) Range: 4.6 - 7.1 :10 Blood Glucose , Office (27748) Blood Glucose , Office 172 (Normal) 93-Psv-359126:00 LIPID CHOL 150 mg/dL (Normal) Comments: <200 [...] mg/dL VLDL 58 mg/dL (Abnormal) Range: 5-40 90-Xfc-506443:00 LIVER ALB 4.0 g/dL (Normal) Range: 3.4-5.0 [...] mg/dL (Normal) :38 Blood Glucose , Office (28415) Blood Glucose , Office 163 (Normal) :38 HgA1C , Office (11432) HgA1C , Office 6.0 % (Normal) Range: [...] (Normal) Range: 0.0-4.0 :06 HgA1C , Office (08673) HgA1C , Office 5.9 % (Normal) Range: 4.6 - 7.1 :06 Blood Glucose , Office (43836) Blood Glucose , Office 157 (Normal) :50 METABOLIC PANEL, COMPREHENSIVE Comments: PATIENT NOT FASTINGPERFORMED BY: LabCoRobert Wood Johnson University HospitalUfiptd6634 [facility] [id number] (64658) A/G Ratio 1.6 (Normal) Range: 1.1-2.5 Albumin, [...] Serum 102 mg/dL (Abnormal) Range: 65-99 If -Japanese >59 mL/min/1.73 Comments: Note: Persistent reduction for [...] Sodium, Serum 143 mmol/L (Normal) Range: 135-145 49-Txc-621858:50 CBC WITH MANUAL DIFF (39508) Comments: PATIENT NOT FASTINGClinical Information: ADD DRAW FEE [id number] ADD J 25871 PERFORMED BY: SLAVA [facility] Reedsq2968 [facility] [id number] Baso (Absolute) 0.0 {x10E3/uL} (Normal) Range: 0.0-0.2 [...] 11.7-15.0 WBC 9.9 {x10E3/uL} (Normal) Range: 4.0-10.5 35-Ndw-675606:11 HgA1C , Office (67394) HgA1C , Office 5.6 % (Normal) Range: 4.6 - 7.1 27-Bio-495115:11 Blood Glucose , Office (36867) Blood Glucose , Office 101 (Normal) :55 HgA1C , Office (96592) HgA1C , Office 5.9 % (Normal) Range: 4.6 - 7.1 :55 Blood Glucose , Office (14934) Blood Glucose , Office 104 (Normal) 8-Kjr-904692:23 Billing Information Required Comments: TEST(S) ORDERED: [id number]-Iwbimhks-Xvpmfqje Ag, SerumPATIENT NOT FASTINGClinical Information: ADD DRAW FEE 146863 ADD J 81127 PERFORMED BY: SLAVA Carvalho6 370 [facility] [id number] SPRCS SPRCS (Normal) Comments: To enable [facility] to file an insurance claim on behalf of yourpatient, please provide or update as indicated the required billinginformation listed below. The HIPAA Privacy regulation at 45 BQG837.506 (c) (3) provides that a covered entity (Physician's Office/Referring Provider) may disclose PHI to another covered entity([facility]) for purposes of payment without patient authorization. .Please provide requested information and return via your servicerepresentative or fax to [phone] within 3 days. 9-Qzk-260055:23 Billing Information Required Comments: TEST(S) ORDERED: [id number]-Qtybwqsg-Gtevpoyi Ag, SerumPATIENT NOT FASTINGPERFORMED BY: SLAVA Carvalho6370 [facility] [id number] Highest Level of SPRCS Comments: Information Submitted: NOT GIVENPlease Provide: Diagnosis Code, Signs or Symptoms in ICD9 format at the highest level of specificity.Updated/Corrected Information: Specificity (Normal) __Physician/Designee Signature: Date: :23 PSA (PROSTATE SPECIFIC Comments: PATIENT NOT FASTINGClinical Information: ADD DRAW FEE [id number] ADD J 30239 PERFORMED BY: LabCoRobert Wood Johnson University HospitalMlzqcs2041 [facility] SurgeryFlorinalex [place] [id number] ANTIGEN) (V76.44) Prostate Specific Ag, Serum 1.1 ng/mL (Normal) Range: 0.0-4.0 Comments: Gail (formerly ibeatyou) ICMA methodology. .EFFECTIVE March 30, 2008, PSA will be changing to the Erik ECLIA methodology. R ebaselining will be offered for 90 days using panel 904741. The second result, provided by the Gail ICMA methodology will be provided at no charge. :19 HgA1C , Office (29721) HgA1C , Office 6.1 % (Normal) Range: 4.6 - 7.1 :19 Blood Glucose , Office (14502) Blood Glucose , Office 248 (Normal) :23 [...] 228.3 mg/dL (Normal) :51 HgA1C , Office (44676) HgA1C , Office 5.7 % (Normal) Range: 4.6 - 7.1 Comments: :51 Blood Glucose , Office (70283) Blood Glucose , Office 197 (Normal) Comments: :41 TROPONIN-I 0.04 ng/mL (Normal) Comments: TROPONIN-I EXPECTED VALUES < 0.50 NEGATIVE 0.50 - 1.49 INDETERMINANT > OR = 1.50 SUGGEST HI 2-Oct-38478:40 BMP Comments: COMMENTS: BONEZZIINDICATE CK '1', '2', [...] 1.49 INDETERMINANT > OR = 1.50 SUGGEST HI :41 BMP BUN 19 mg/dL (Abnormal) Range: [...] 1.49 INDETERMINANT > OR = 1.50 SUGGEST HI :30 PROTEIN,UR.RAN. 22.8 mg/dL (Abnormal) Comments: HOLD [...] AMI > 5 > 4 :10 SPE [id number] A/G RATIO 1.2 (Normal) Range: 0.7-2.0 ALBUMIN [...] Evidenceof monoclonal protein is not apparent.Performed At: [facility] [id number] [place], [place] [id number] M-SPIKE SeeNote g/dL (Normal) Comments: Result: Not Observed NOTE: Comment (Normal) Comments: Protein electrophoresis scan will follow via mail orcourier. PROTEIN,TOTAL 6.9 g/dL (Normal) Range: 6.0-8.5 :10 TROPONIN-I < 0.04 ng/mL (Normal) Comments: INDICATE CK '1', '2', '3', OR 'R' FOR RANDOM: 2 Comments: TROPONIN-I EXPECTED VALUES < 0.50 NEGATIVE 0.50 - 1.49 INDETERMINANT > OR = 1.50 SUGGEST HI :50 PRO TIME INR 1.0 (Normal) PROTIME 12.2 s (Normal) Range: 10.6-13.2 :50 TROPONIN-I < 0.04 ng/mL (Normal) Comments: TROPONIN-I EXPECTED VALUES < 0.50 NEGATIVE 0.50 - 1.49 INDETERMINANT > OR = 1.50 SUGGEST HI :08 SHONDA 38 U/L (Normal) Comments: COMMENTS: [...] 1.49 INDETERMINANT > OR = 1.50 SUGGEST HI :30 CHEST WITHOUT CONTRAST Radiology Report See Note (Normal) Comments: Exam Number: [id number] CT HIGH RESOLUTION OF CHEST WITHOUT CONTRAST [...] DENISSE URIAS M.D. :13 HgA1C , Office (27632) HgA1C , Office 6.5 % (Normal) Range: 4.6 - 7.1 :13 Blood Glucose , Office (70904) Blood Glucose , Office 124 (Normal) :59 [...] Report See Note (Normal) Comments: Exam Number: [id number] PA AND LATERAL CHEST HISTORY Being done for cough. FINDINGSCardiac configuration is normal. No acute infiltrate, effusion, orpneumothorax is identified. There is a pacema ker noted in the leftanterior chest. No abnormality is noted in the leads as demonstrated. IMPRESSION1. No acute change noted in the lungs. 2. Little if any change from 09/04/06. Reported By: AMANDO NANCE M.D. 8-Amz-986897:00 C DIF See Note (Normal) Comments: C. [...] (Normal) Range: 5-40 :35 HgA1C , Office (47689) HgA1C , Office 5.6 % (Normal) Range: [...] - 1.0 :39 Blood Glucose , Office (54548) Blood Glucose , Office 161 (Normal) :39 HgA1C , Office (96822) HgA1C , Office 5.7 % (Normal) Range: [...] swelling : Follow up 3 days with [facility] Indication: Leg swelling RLS (restless legs [...] Wheezing Planned Observations CBC WITH MANUAL DIFF (21494)Indication: CKD (chronic kidney disease), stage 3 (moderate) On: 02-Jan-2021 Request Comments: standing order q 3 months MAGNESIUM (21130)Indication: CKD (chronic kidney disease), stage 3 (moderate) On: 02-Jan-2021 Request Comments: standing order q 3 months PARATHORMONE (60307)Indication: CKD (chronic kidney disease), stage 3 (moderate) On: 02-Jan-2021 Request Comments: standing order q 3 months PHOSPHORUS (05929)Indication: CKD (chronic kidney disease), stage 3 (moderate) On: 02-Jan-2021 Request Comments: standing order q 3 months Renal function Panel (28470)Indication: CKD (chronic kidney disease), stage 3 (moderate) On: 02-Jan-2021 Request Comments: standing order q 3 months CBC WITH MANUAL DIFF (33957)Indication: CKD (chronic kidney disease), stage 3 (moderate) On: 04-Oct-2020 Request Comments: standing order q 3 months MAGNESIUM (73231)Indication: CKD (chronic kidney disease), stage 3 (moderate) On: 04-Oct-2020 Request Comments: standing order q 3 months PARATHORMONE (62416)Indication: CKD (chronic kidney disease), stage 3 (moderate) On: 04-Oct-2020 Request Comments: standing order q 3 months PHOSPHORUS (24115)Indication: CKD (chronic kidney disease), stage 3 (moderate) On: 04-Oct-2020 Request Comments: standing order q 3 months Renal function Panel (50580)Indication: CKD (chronic kidney disease), stage 3 (moderate) On: 04-Oct-2020 Request Comments: standing order q 3 months CBC WITH MANUAL DIFF (20644)Indication: CKD (chronic kidney disease), stage 3 (moderate) On: 06-Jul-2020 Request Comments: standing order q 3 months MAGNESIUM (26652)Indication: CKD (chronic kidney disease), stage 3 (moderate) On: 06-Jul-2020 Request Comments: standing order q 3 months PARATHORMONE (22367)Indication: CKD (chronic kidney disease), stage 3 (moderate) On: 06-Jul-2020 Request Comments: standing order q 3 months PHOSPHORUS (59320)Indication: CKD (chronic kidney disease), stage 3 (moderate) On: 06-Jul-2020 Request Comments: standing order q 3 months Renal function Panel (80146)Indication: CKD (chronic kidney disease), stage 3 (moderate) On: 06-Jul-2020 Request Comments: standing order q 3 months CBC WITH MANUAL DIFF (90715)Indication: CKD (chronic kidney disease), stage 3 (moderate) On: 07-Apr-2020 Request Comments: standing order q 3 months MAGNESIUM (90411)Indication: CKD (chronic kidney disease), stage 3 (moderate) On: 07-Apr-2020 Request Comments: standing order q 3 months PARATHORMONE (92159)Indication: CKD (chronic kidney disease), stage 3 (moderate) On: 07-Apr-2020 Request Comments: standing order q 3 months PHOSPHORUS ([id number])Indication: CKD (chronic kidney disease), stage 3 (moderate) On: 07-Apr-2020 Request Comments: standing order q 3 months Renal function Panel (59923)Indication: CKD (chronic kidney disease), stage 3 (moderate) On: 07-Apr-2020 Request Comments: standing order q 3 months CBC WITH MANUAL DIFF (42040)Indication: CKD (chronic kidney disease), stage 3 (moderate) On: 08-Jan-2020 Request Comments: standing order q 3 months MAGNESIUM ([id number])Indication: CKD (chronic kidney disease), stage 3 (moderate) On: 08-Jan-2020 Request Comments: standing order q 3 months PARATHORMONE (61842)Indication: CKD (chronic kidney disease), stage 3 (moderate) On: 08-Jan-2020 Request Comments: standing order q 3 months PHOSPHORUS (16864)Indication: CKD (chronic kidney disease), stage 3 (moderate) On: 08-Jan-2020 Request Comments: standing order q 3 months Renal function Panel (64582)Indication: CKD (chronic kidney disease), stage 3 (moderate) On: 08-Jan-2020 Request Comments: standing order q 3 months CBC WITH MANUAL DIFF (23489)Indication: CKD (chronic kidney disease), stage 3 (moderate) On: 10-Oct-2019 Request Comments: standing order q 3 months MAGNESIUM (06076)Indication: CKD (chronic kidney disease), stage 3 (moderate) On: 10-Oct-2019 Request Comments: standing order q 3 months PARATHORMONE (46018)Indication: CKD (chronic kidney disease), stage 3 (moderate) On: 10-Oct-2019 Request Comments: standing order q 3 months PHOSPHORUS (58702)Indication: CKD (chronic kidney disease), stage 3 (moderate) On: 10-Oct-2019 Request Comments: standing order q 3 months Renal function Panel (12872)Indication: CKD (chronic kidney disease), stage 3 (moderate) On: 10-Oct-2019 Request Comments: standing order q 3 months CBC WITH MANUAL DIFF ([id number])Indication: CKD (chronic kidney disease), stage 3 (moderate) On: 12-Jul-2019 Request Comments: standing order q 3 months MAGNESIUM (05836)Indication: CKD (chronic kidney disease), stage 3 (moderate) On: 12-Jul-2019 Request Comments: standing order q 3 months PARATHORMONE ([id number])Indication: CKD (chronic kidney disease), stage 3 (moderate) On: 12-Jul-2019 Request Comments: standing order q 3 months PHOSPHORUS ([id number])Indication: CKD (chronic kidney disease), stage 3 (moderate) On: 12-Jul-2019 Request Comments: standing order q 3 months Renal function Panel (31420)Indication: CKD (chronic kidney disease), stage 3 (moderate) On: 12-Jul-2019 Request Comments: standing order q 3 months CBC WITH MANUAL DIFF ([id number])Indication: CKD (chronic kidney disease), stage 3 (moderate) On: 13-Apr-2019 Request Comments: standing order q 3 months MAGNESIUM (05671)Indication: CKD (chronic kidney disease), stage 3 (moderate) On: 13-Apr-2019 Request Comments: standing order q 3 months PARATHORMONE ([id number])Indication: CKD (chronic kidney disease), stage 3 (moderate) On: 13-Apr-2019 Request Comments: standing order q 3 months PHOSPHORUS ([id number])Indication: CKD (chronic kidney disease), stage 3 (moderate) On: 13-Apr-2019 Request Comments: standing order q 3 months Renal function Panel ([id number])Indication: CKD (chronic kidney disease), stage 3 (moderate) On: 13-Apr-2019 Request Comments: standing order q 3 months CBC WITH MANUAL DIFF ([id number])Indication: CKD (chronic kidney disease), stage 3 (moderate) On: 13-Jan-2019 Request Comments: standing order q 3 months MAGNESIUM ([id number])Indication: CKD (chronic kidney disease), stage 3 (moderate) On: 13-Jan-2019 Request Comments: standing order q 3 months PARATHORMONE ([id number])Indication: CKD (chronic kidney disease), stage 3 (moderate) On: 13-Jan-2019 Request Comments: standing order q 3 months PHOSPHORUS ([id number])Indication: CKD (chronic kidney disease), stage 3 (moderate) On: 13-Jan-2019 Request Comments: standing order q 3 months Renal function Panel ([id number])Indication: CKD (chronic kidney disease), stage 3 (moderate) On: 13-Jan-2019 Request Comments: standing order q 3 months CBC WITH MANUAL DIFF (48170)Indication: CKD (chronic kidney disease), stage 3 (moderate) On: 15-Oct-2018 Request Comments: standing order q 3 months MAGNESIUM ([id number])Indication: CKD (chronic kidney disease), stage 3 (moderate) On: 15-Oct-2018 Request Comments: standing order q 3 months PARATHORMONE (57446)Indication: CKD (chronic kidney disease), stage 3 (moderate) On: 15-Oct-2018 Request Comments: standing order q 3 months PHOSPHORUS (59501)Indication: CKD (chronic kidney disease), stage 3 (moderate) On: 15-Oct-2018 Request Comments: standing order q 3 months Keppra (93840)Indication: Seizure On: 09-Krf-175634:02 Request Comments: send all labs stat TSH (69141)Indication: Cardiac dysrhythmia On: 57-Nvw-34290:40 Request Troponin I (63567)Indication: Episode of syncope On: 25-Nog-50872:39 Request BNTP (80851)Indication: Episode of syncope On: 01-Pig-91001:39 Request CBC (Auto) (74897)Indication: Episode of syncope On: :38 Request Metabolic Panel, Comprehensive (96155)Indication: Episode of syncope On: :38 Request Keppra (35579)Indication: Seizure On: 38-Aac-292309:57 Request Comments: all copies to Dr. jung CBC WITH MANUAL DIFF ([id number])Indication: CKD (chronic kidney disease), stage 3 (moderate) On: 06-Rfk-161512:57 Request Comments: standing order q 3 months PHOSPHORUS (16451)Indication: CKD (chronic kidney disease), stage 3 (moderate) On: 61-Mbz-248780:57 Request Comments: standing order q 3 months PARATHORMONE (78869)Indication: CKD (chronic kidney disease), stage 3 (moderate) On: 40-Jcc-907894:57 Request Comments: standing order q 3 months Renal function Panel (50084)Indication: CKD (chronic kidney disease), stage 3 (moderate) On: 09-Hrh-219001:57 Request Comments: standing order q 3 months MAGNESIUM (28423)Indication: CKD (chronic kidney disease), stage 3 (moderate) On: 17-Jul-2018 Request Comments: standing order q 3 months Metabolic Panel, Basic (28878)Indication: Hypertension On: 38-Iie-633982:34 Request Platelet 12040 (citrate, nonclumping tube)Indication: Thrombocytopenia On: 87-Gop-824460:25 Request Keppra (57642)Indication: Generally unsteady On: 77-Iqe-188536:20 Request Comments: Dr. Jung copy to him Methymalonic Acid, Serum (99543)Indication: CKD (chronic kidney disease), stage 3 (moderate) On: :35 Request Vitamin B-12 (cyanocobalamin) (99446)Indication: CKD (chronic kidney disease), stage 3 (moderate) On: :35 Request FIBRIN DEGRAD SLIDE AGGL (00712)Indication: Abnormal platelet aggregation On: :19 Request LDH (LD) (LACTATE DEHYDROGENASE) (43946)Indication: Abnormal platelet aggregation On: :13 Request Platelet Count (38752)Indication: Abnormal platelet aggregation On: :12 Request Comments: PLEASE DRAW IN CITRATE TUBE Renal function Panel (25352)Indication: Hypotension, postural On: :46 Request CBC, Platelets & Auto Diff (58970)Indication: Hypotension, postural On: :45 Request Troponin I (50791)Indication: Hypotension, postural On: :45 Request TSH (22712)Indication: Hypotension, postural On: :43 Request PHOSPHORUS (62706)Indication: CKD (chronic kidney disease), stage 3 (moderate) On: 08-Zoo-033520:23 Request Comments: standing order q 3 months Troponin I (94225)Indication: History of CHF (congestive heart failure) On: 57-Hiz-740345:54 Request Renal function Panel (72423)Indication: History of CHF (congestive heart failure) On: 50-Pws-972885:54 Request TSH (70534)Indication: Hypothyroid On: :50 Request METABOLIC PANEL, COMPREHENSIVE (32177)Indication: Diabetes mellitus with chronic kidney disease On: 73-Ame-507496:50 Request MICROALBUMIN: CREATININE RATIO (56927) AND (22934)Indication: CKD (chronic kidney disease), stage 3 (moderate) On: :41 Request Comments: copy to Dr. Murcia [phone] Parathyroid Hormone-related Peptide (PTH-rP) (62972)Indication: CKD (chronic kidney disease), stage 3 (moderate) On: :41 Request Comments: copy to Dr. Murcia [phone] URINALYSIS, W/ MICRO (60243)Indication: Diabetes mellitus with chronic kidney disease On: :47 Request Comments: 07-15 METABOLIC PANEL, COMPREHENSIVE (78718)Indication: Diabetes mellitus with chronic kidney disease On: :47 Request Comments: 07-15 LIPOPROTEIN, BLD, BY NMR (92355)Indication: Diabetes mellitus with chronic kidney disease On: :46 Request Comments: 07-15 CBC with auto diff (91599)Indication: Diabetes mellitus with chronic kidney disease On: :46 Request Comments: 07-15 ANCA-P (ANTI NEUTROPHIL CYTOPLASMIC ANTIBODY)Indication: CKD (chronic kidney disease), stage 3 (moderate) On: :38 Request PSA (PROSTATE SPECIFIC ANTIGEN) (V76.44)Indication: Screening for prostate cancer On: 36-Hwa-147031:13 Request Comments: 06-14 PARATHORMONE (48027)Indication: CKD (chronic kidney disease), stage 3 (moderate) On: :51 Request Magnesium (34917)Indication: CKD (chronic kidney disease), stage 3 (moderate) On: :51 Request CALCIFIDIOL (89437) VIT D 25Indication: CKD (chronic kidney disease), stage 3 (moderate) On: :51 Request Total Protein,24 Hour Urine (01645)Indication: CKD (chronic kidney disease), stage 3 (moderate) On: :50 Request CREATININE CLEARANCE (56991)Indication: CKD (chronic kidney disease), stage 3 (moderate) On: :50 Request Metabolic Panel, Basic (49819)Indication: Cardiomyopathy On: :30 Request Comments: 2 weeks METABOLIC PANEL, COMPREHENSIVE (57402)Indication: Hypertension On: :30 Request Comments: in three months (approximately) CBC with auto diff (72900)Indication: Hypertension On: :29 Request Comments: in three months (approximately) METABOLIC PANEL, BASIC (14179)Indication: Diabetes mellitus with chronic kidney disease On: :05 Request Comments: recheck in 2 wks HGB A1C (52183)Indication: Diabetes mellitus with chronic kidney disease On: :01 Request MAGNESIUM (63651)Indication: Hypomagnesemia On: :53 Request LIPID PANEL (60221)Indication: Hypertension On: :53 Request Comments: copy to Dr. harmon TSH (24391)Indication: Hypothyroid On: :53 Request METABOLIC PANEL, COMPREHENSIVE (86504)Indication: Hypertension On: :53 Request CBC with auto diff (99676)Indication: Hypertension On: :52 Request CBC (Auto) (29726)Indication: Hypertension On: 35-Won-273289:44 Request Comments: in three months (approximately) Renal function Panel (26670)Indication: Hypertension On: 01-Gkt-142922:44 Request Comments: in three months (approximately) Metabolic Panel, Basic (83862)Indication: Hypertension On: 79-Vux-418607:30 Request METABOLIC PANEL, BASIC (99835)Indication: Hypertension On: 76-Sao-94936:37 Request Comments: Forward to Val Almeida at [facility] at fax [phone] also PSA (PROSTATE SPECIFIC ANTIGEN) (V76.44)Indication: Encounter for health maintenance examination with abnormal findings On: 96-Kcv-598976:11 Request Comments: due 07-12 MICROALBUMIN: CREATININE RATIO (87105) AND (65661)Indication: Diabetic nephropathy On: 8-Yqe-181942:39 Request METABOLIC PANEL, COMPREHENSIVE (47844)Indication: Diabetes mellitus type II, controlled On: 8-Dky-417350:39 Request URINALYSIS, W/ MICRO (35192)Indication: Diabetes mellitus type II, controlled On: :56 Request METABOLIC PANEL, COMPREHENSIVE (86032)Indication: Diabetes mellitus type II, controlled On: :56 Request CBC WITH MANUAL DIFF (48401)Indication: Diabetes mellitus type II, controlled On: :56 Request HgA1C , Office (37987)Indication: Diabetes mellitus type II, controlled On: :19 Request Metabolic Panel, Basic ([id number])Indication: Cardiomyopathy On: :01 Request LIPID PANEL ([id number])Indication: Diabetes mellitus with chronic kidney disease On: :30 Request METABOLIC PANEL, COMPREHENSIVE ([id number])Indication: Diabetes mellitus with chronic kidney disease On: :30 Request CBC WITH MANUAL DIFF ([id number])Indication: Diabetes mellitus with chronic kidney disease On: :30 Request Comments: copy Dr. hu CREATININE CLEARANCE ([id number])Indication: Renal insufficiency On: :06 Request 24 hour urine for Protein ([id number])Indication: Renal insufficiency On: 02-Cxl-71878:06 Request Metabolic Panel, Basic (10974)Indication: Renal insufficiency On: :05 Request Metabolic Panel, Basic (52967)Indication: Renal insufficiency On: 78-Ezr-757295:03 Request Urinalysis, Office (44286)Indication: Cystitis, acute On: 45-Jdo-149383:37 Request URINE LIBORIO CULTURE-CASPER COL COUNT ([id number])Indication: Cystitis, acute On: :37 Request CBC, Platelets & Auto Diff (08147)Indication: Cramp in limb On: 90-Xrp-645012:44 Request Vitamin B-12 (cyanocobalamin) (94326)Indication: Cramp in limb On: :44 Request Metabolic Panel, Comprehensive (16972)Indication: Cramp in limb On: :44 Request METABOLIC PANEL, COMPREHENSIVE ([id number])Indication: Diabetes mellitus type II, controlled On: 4-Ksn-595797:50 Request LIPID PANEL ([id number])Indication: Diabetes mellitus type II, controlled On: 4-Eov-151546:50 Request Comments: in three months (approximately) PSA (PROSTATE SPECIFIC ANTIGEN) (V76.44)Indication: Diabetes mellitus type II, controlled On: :30 Request CBC WITH MANUAL DIFF ([id number])Indication: Diabetes mellitus type II, controlled On: :29 Request MICROALBUMIN: CREATININE RATIO (38049) AND (04766)Indication: Diabetes mellitus type II, controlled On: :29 Request Metabolic Panel, Basic (69133)Indication: Diabetes mellitus type II, controlled On: :29 Request MICROALBUMIN: CREATININE RATIO ([id number]) AND ([id number])Indication: Diabetes mellitus type II, controlled On: 60-Fvu-411585:53 Request METABOLIC PANEL, COMPREHENSIVE ([id number])Indication: Diabetes mellitus type II, controlled On: 09-Hvj-641324:53 Request LIPID PANEL (31330)Indication: Diabetes mellitus type II, controlled On: 65-Wyn-023181:53 Request CBC WITH MANUAL DIFF ([id number])Indication: Diabetes mellitus type II, controlled On: :53 Request Comments: in three months (approximately) PSA (PROSTATE SPECIFIC ANTIGEN) (V76.44)Indication: Well Male On: :32 Request MICROALBUMIN: CREATININE RATIO (43403) AND ([id number])Indication: Diabetes mellitus type II, controlled On: :32 Request METABOLIC PANEL, COMPREHENSIVE (63060)Indication: Diabetes mellitus type II, controlled On: :32 Request CBC WITH MANUAL DIFF ([id number])Indication: Diabetes mellitus type II, controlled On: :32 Request LIPID PANEL ([id number])Indication: Diabetes mellitus type II, controlled On: :32 Request URINALYSIS W/O MICRO ([id number])Indication: Cardiomyopathy On: :22 Request Metabolic Panel, Basic ([id number])Indication: Hypertension On: 17-Wkn-545301:12 Request Comments: sept CBC (Auto) ([id number])Indication: Diabetes mellitus type II, controlled On: 6-Myl-697346:10 Request Metabolic Panel, Comprehensive ([id number])Indication: Diabetes mellitus type II, controlled On: 2-Wxo-284773:10 Request MICROALBUMIN: CREATININE RATIO ([id number]) AND ([id number])Indication: Diabetes mellitus type II, controlled On: :12 Request CBC WITH MANUAL DIFF ([id number])Indication: Diabetes mellitus type II, controlled On: 2-Qmd-962724:12 Request Comments: in three months (approximately) METABOLIC PANEL, COMPREHENSIVE ([id number])Indication: Diabetes mellitus type II, controlled On: 2-Epz-179543:12 Request LIPID PANEL (34302)Indication: Hypertension On: :08 Request METABOLIC PANEL, COMPREHENSIVE ([id number])Indication: Hypertension On: :08 Request METABOLIC PANEL, BASIC (87780)Indication: Acute renal failure, unspecified acute renal failure type On: 8-Jjn-973143:01 Request Comments: with next blood draw PSA (PROSTATE SPECIFIC ANTIGEN) (32437)Indication: Encounter for health maintenance examination with abnormal findings On: 0-Jfk-159137:55 Request Comments: after 09-20-06 MICROALBUMIN 24 HOUR OR RANDOM ([id number])Indication: DIABETIC NEPHROPATHY On: :49 Request CREATININE CLEARANCE ([id number])Indication: DIABETIC NEPHROPATHY On: :49 Request Planned Encounters Medical; MICHAEL ch[facility] visit - On: 07-Nov-2018 15:30 [facility] Anabella Núñez MD, MD, Dana M Planned Procedures ELECTROCARDIOGRAM, COMPLETE (ECG) On: 17-Sep-2018 Intent ([id number])By: Anabella Núñez MD Comments: see scanned document of test done to see results reviewed today with patient Anabella ROGERS INFUSION OF 0.9% SODIUM CHLORIDE On: 25-Apr-2018 Intent SOLUTION ([id number])By: Anabella Núñez MD Comments: lot:[id number]:IV right anticub dose:250ccgiven by:aaliyah GUTIERREZN ABN signedER, Anabella Ibanez MD ELECTROCARDIOGRAM, COMPLETE (ECG) On: 25-Apr-2018 Intent ([id number])By: Anabella Núñez MD Comments: see scanned document of test done to see results reviewed today with patient Anabella ROGERS INFUSION, NORMAL SALINE SOLUTION , On: 18-Jan-2018 Intent 1000 CC (Special Coverage Instructions Comments: lot:[id number]/15rte:IV dose: 500ml sodium chloride given by: aaliyah left fore arm ABN signedER, HOME APPRAISER Apply. See MCM: 204) ([id number])By: Anabella Núñez MD, MD, Dana M Radiology - Chest- PA and LatBy: Fast On: 09-Jan-2018 Intent DO Delisa A Comments: stat call results Spirometry ([id number])By: Delisa Gordon DO On: 06-Jun-2017 Intent A Comments: good effort and curve with decrease in small airways Radiology - Chest- PA and LatBy: Fast On: 06-Jun-2017 Intent Delisa BARFIELD Comments: stat call rsutls Ultrasound - RenalBy: Anabella Núñez MD On: 06-Sep-2016 Intent Anabella Tirado MD Aerosol Treatment ([id number])By: Mynor On: 15-Feb-2016 Intent Daria LION Radiology - ChestBy: Daria Lowe CNP On: 13-Sep-2015 Intent Solu -Medrol Injection, 125 mg On: 13-Sep-2015 Intent ([id number])By: Daria Lowe CNP Comments: lot:[id number]:12/2017route:IMdose:125mgsite:R realDSMA Carmela Aerosol Treatment (64377)By: Mynor On: 13-Sep-2015 Intent AYAD Simona Comments: patient tolerated well Aerosol Treatment (18513)By: Dami On: 07-Sep-2015 Intent Anabella ROGERS MD, Dana M Prevnar 13 (40062)By: Dami ROGERS, On: 16-Oct-2014 Intent Anabella Turcios MD ADMINISTRATION OF INFLUENZA VIRUS On: 04-Aug-2014 Intent VACCINE (G0008)By: Visit, Nurse Comments: Lot #[id number]-L dltd, IMDose prefilled syringegiven by:Madelaine and ABN signed FLU VAC, SPLIT, >3 YEARS, INTRAMUSC On: 04-Aug-2014 Intent (16662)By: Visit, Nurse Radiology - ChestBy: Anabella Núñez MD On: 20-Jan-2014 Anabella Nation MD Aerosol Treatment ([id number])By: Dami On: 20-Jan-2014 Intent Anabella ROGERS MD, Dana M Eprescribed prescriptions ([id number])By: On: 20-Jan-2014 Intent Anabella Núñez MD, MD, Dana M FLU VAC, SPLIT, >3 YEARS, INTRAMUSC On: 10-Jul-2013 Intent (89169)By: MATILDA Hernandez Comments: Lot #:[id number] date:04.11Amount given:0.5mlRoute: IMSite given:L DltdGiven by: NAS and ABN signed ADMINISTRATION OF INFLUENZA VIRUS On: 10-Jul-2013 Intent VACCINE (G0008)By: MATILDA Hernandez Eprescribed prescriptions ([id number])By: On: 11-Dec-2012 Intent Delisa Gordon DO Pulse Oximetry ([id number])By: Evan BARFIELD, On: 11-Dec-2012 Intent Delisa Monte Comments: 98 Spirometry (07105)By: Delisa Gordon DO On: 11-Dec-2012 Intent Lavell Comments: good effort and curve normal Radiology - Chest- PA and LatBy: Fast On: 11-Dec-2012 Intent Delisa BARFIELD Comments: call wet read Eprescribed prescriptions ([id number])By: On: 18-Nov-2012 Intent Bonnie DO [place] TDAP VACCINE >7 IM (32697)By: David On: 20-Feb-2012 Intent MATILDA Comments: Lot #:[id number] date:56-08-30Mkfhfe given:0.5mlRoute: IMSite given:right deltoid Given by: aaliyah mallory Pulse Oximetry (18731)By: Mynor LION, On: 17-Oct-2011 Intent Simona Aerosol Treatment (28729)By: Mynor On: 17-Oct-2011 Intent RN CLINICAL TRIALS Simona FLU VAC, SPLIT, >3 YEARS, INTRAMUSC On: 08-Aug-2011 Intent (23712)By: Diana Caballero RN Comments: Lot #: [id number] date: ount given: 0.5 mlRoute: IMSite given: left deltoidGiven by: BEKA Dc ADMINISTRATION OF INFLUENZA VIRUS On: 08-Aug-2011 Intent VACCINE (G0008)By: Diana Caballero RN Radiology - Hip - BilateralBy: Dami On: 13-Oct-2010 Intent Anabella ROGERS MD, Dana M Spirometry ([id number])By: Dami ROGERS, On: 13-Oct-2010 Intent Anabella Turcios MD Pulse Oximetry (70984)By: Dami ROGERS, On: 13-Oct-2010 Intent Anabella Turcios MD FLU VAC, SPLIT, >3 YEARS, INTRAMUSC On: 05-Sep-2010 Intent (14206)By: Dasha Ramirez LPN Comments: Lot #[id number]/11site-right deltoidgiven by:[facility] ADMINISTRATION OF INFLUENZA VIRUS On: 05-Sep-2010 Intent VACCINE (G0008)By: Dasha Ramirez LPN Renal DopplerBy: Anabella Núñez MD On: 23-May-2010 Intent Anabella Núñez MD Ultrasound - TesticularBy: Mynor LION, On: 10-May-[address] - Abdomen & Pelvis (IV Contrast On: 09-May-2010 Intent Needed)By: Daria Lowe CNP Comments: today call wet read to [facility] ADMINISTRATION OF INFLUENZA VIRUS On: 26-Jul-2009 Intent VACCINE (G0008)By: Anabella Núñez MD Comments: lot # [id number]- [id number]-XChmmj- 0.5ML Tolerated well Anabella Da Silva MA, MD FLU VAC, SPLIT, >3 YEARS, INTRAMUSC On: 26-Jul-2009 Intent ([id number])By: Anabella Núñez MD, MD, Dana M EKG (01742)By: Gabriela Douglas On: 19-Jun-2008 Intent EsophagramBy: Anabella Núñez MD On: 20-Nov-2007 Intent Anabella Núñez MD Inhaler Demonstration (74072)By: On: 02-Oct-2007 Intent Daria Lowe CNP Pulse Oximetry (41730)By: Mynor LION, On: 02-Oct-2007 Intent Daria Otto Aerosol Treatment (31593)By: Mynor On: 02-Oct-2007 Intent Daria LION Six Minute Walk Assessment (75718)By: On: 27-Feb-2007 Intent Dhara Oquendo LPN Comments: ABN signed Inhaler Demo (65584)By: Delisa Gordon DO On: 18-Feb-2007 Intent A Pulse Oximetry (50553)By: DILSHAD LION On: 31-Jan-2007 Intent MARIO Comments: 96% Aerosol Treatment ([id number])By: DILSHAD On: 31-Jan-2007 Intent MARIO LION Solu- Medrol Injection, 125mg On: 31-Jan-2007 Intent (J2930)By: MARIO YUNG CNP Aerosol Treatment (71157)By: Evan BARFIELD, On: 28-Jan-2007 Intent Delisa Monte Inhaler Demo (16053)By: Delisa Gordon DO On: 28-Jan-2007 Intent A Radiology - Chest- PA and LatBy: Evan On: 28-Jan-2007 Intent Delisa BARFIELD Spirometry (37966)By: Delisa Gordon DO On: 28-Jan-2007 Intent A Comments: good effort and curve- mild obstruction Pulse Oximetry (03360)By: Gene, On: 28-Jan-2007 Intent Rolanda Comments: ins waiver [email or web address] initially - after tx was 95 Planned [...] for health maintenance examination with abnormal findings HI (myocardial infarction) : How to access health information online Indication: HI (myocardial infarction) HI (myocardial infarction) : How to access health information online - Detail Indication: HI (myocardial infarction) HI (myocardial infarction) : Patient Instructions Indication: HI (myocardial infarction) Allergic rhinitis : Patient Instructions [...] Patient Instructions Indication: Acute sinusitis, unspecified Encounters Phone Encounter On: 05-Nov-2018 17:07 [facility] [...] CHF (congestive heart failure), Abnormal laboratory test, HI (myocardial infarction) , Sensorineural hearing loss (SNHL) [...] Erectile dysfunction, Memory loss, Subdural hemorrhage, Nonsmoker, HI (myocardial infarction), Peripheral vascular disease, CKD (chronic [...] both ears, Memory loss, Abnormal laboratory test, HI (myocardial infarction), Erectile dysfunction, Peripheral vascular disease, [...] alcohol, Diabetes mellitus with chronic kidney disease, HI (myocardial infarction), Uncoordinated movements, Memory loss, Obesity, [...] weak and fatigue supposed to have colonosocpy Marylin Diagnosis: Right lower lobe pneumonia, BMI 29.0-29.9,adult, [...] Historical Summary On: 18-Apr-2017 9:33 Encounter Diagnosis: HI (myocardial infarction) End: 18-Apr-2017 9:36 [facility] [...] syndrome), Uncoordinated movements, Hyperplasia, prostate, Macrocytosis, Hypertension, HI (myocardial infarction), Hypothyroid, Erectile dysfunction, Allergic rhinitis, [...] patient does h ave durable power of attorney recruiter and living will. The patient has noticed thinking most people are better off than them (due to heart concerns) and nothing from the geriatic depression scale. Other provide rs contributing to the patient's care are intake assessor (fritz) and other: (Divina, kidney). Encounter Diagnosis: BMI 30.0-30.9,adult, Hyperplasia, prostate, HI (myocardial infarction), Allergic rhinitis, Macrocytosis, Cardiomyopathy, Obstructive [...] Testicular hypofunction, Hypothyroid, Erectile dysfunction, Allergic rhinitis, HI (myocardial infarction), Hyperplasia, prostate, Macrocytosis, Gum hyperplasia, [...] failure), Obesity, RLS (restless legs syndrome) , HI (myocardial infarction), Testicular hypofunction, Gum hyperplasia, BMI [...] - Reason for ER visit: note: (had HI in [place] ). The patient feels well with no complaints and has good energy level. Patient has been compliant with instructions. Current medicati End: 17-Mar-2016 13:29 on use: no side effects, compliant with dosing regimen and considered effective by patient. Patient sleeps 7 hours per night. Impact of disease: emotional impact-mild. Nutrition: balanced diet and suppl emental vitamins. Hospital procedures performed were heart catherization.Encounter Diagnosis: HI (myocardial infarction), History of tobacco abuse, Cardiac [...] The patient does have durable power of attorney recruiter and living will. The patient has noticed lack of energy. Other providers contributing to the patient's care are intake assessor (Fritz), gastrologist (Dr. Small ) and other: [...] Nutrition: balanced diet and supplemental vitamins. The nc dical issues the patient is following up [...] Internal Medicine End: 03-Jul-2006 11:43 Payers [employer] [place] Ins/MedicareJAMES KAPP; a guarantor
--- OUTSIDE RECORDS SUMMARY | 2019-01-20 06:24 | XMS RPT_ITS | Continuity of Care Document ---
:1940 Author Organization [facility] Address [address] [facility] [address] [place] [address] Phone Care Team Providers Name Role Phone [...] literature about in medical journals. look like maori study that it did help. no side [...] M Start : 17-Aug-2017 Active Comments:changed from [facility] dc summary MagOx 400 400 (241.3 Mg) [...] : 13-Oct-2010 End : 07-Apr-2011 Inactive NYSTATIN, [id number]/GM (External Powder) 1 Powder bid for 0 [...] : 09-Mar-2011 End : 15-Aug-2011 Inactive ZOSTAVAX, 40798GCH/0.65ML (Subcutaneous Solution Reconstituted) 1 For Solution once [...] Quantity: 1 {Container} Refills: 1 Ordered:15-Feb-2016 MATILDA eHrnandez Start : 15-Feb-2016 End : 17-Mar-2016 Discontinued [...] days Quantity: 180 {Capsule} Refills: 3 Ordered:24-Aug-2017 Niya ROGERS, Anabella Carmichael MD Start : 24-Aug-2017 End : 24-Aug-2017 Discontinued ZOCOR, 40MG (Oral Tablet) 1 Tablet Daily for 0 days Quantity: 30 {Tablet} Refills: 5 Ordered:26-Jul-2009 Anabella Núñez MD, MD, Anabella Miller Start : 26-Jul-2009 End [...] of 25-Dec-2017 Acute CHF (I50.9, 428.0) Comments: 8- [facility] for [facility] chf and pacemaker discharge [...] (M79.89, 729.81) Status: Resolved as of 25-Dec-2017 IA (myocardial infarction) (I21.9, 410.90) Comments: talk about get records. see what cath showed talk about fish oil await doing biomarker sn inflammatory markers ? VT related since cath no blockage. [facility] [place] had rafa st pain radiated down arm, and squad took him to hospital, told had IA, took off lasix, and put on bumex. [...] 21-Nov-2012 Procedures Procedure Dates Details CARDIAC ABLATION (73548) Completed Comments: [facility] cholecytectomy 10-04 Completed CRANIOTOMY, EMERGENT, FOR SUBDURAL Completed HEMATOMA EVACUATION (54983) Comments: [facility] Completed Comments: stent 10-04 Left heart cath Completed Comments: [facility] Right and left coronary angiography, Saphenous vein with angiography hemostatsis with Mynx Dr. EstevesCmujlupdkh50-2-53 Left Heart Cath [facility] DX: moderate to severe elevated LVEDP pacemaker Completed Comments: 2001, ICD, replaced 06-11 Total right hip replacement Completed Comments: [facility] 11-07-11 rec. 3 units PRBC's Date Value Details 16-Oct-2018 Emergency Department Summary Result: Comments: See Note; NOTES: [facility] Medical Records Department [address] [place] [address] Emergency Department Summary 10/16/18 1348 MR#: [id number] Acct: [id number] Name: MAYRA GHOSH Rep #: [id number] : 1940 78 From: Darrel Bean MD PCP: Anabella Núñez MD Status: REG ER - ER Visit Summary Date of Service: 10/16/18 Chief Complaint: Cough and generalized weakn ess. History of Present Illness: The patient is a [address] of cardiomyopathy, V. tach, defibrillator, noncemented diabetes, renal insufficiency, CAD with prior double bypass. Recent ablation at [facility]. Prior intracranial bleed with surgical drainage. Patient [...] significant concern he was discharged twice from [facility] and had to be readmitted. She is [...] and CABG and cardiomyopa thy History of ayk-xhslwds-viwmgtfyg diabetes History of renal insufficiency This note was generated with Chef Surfing dictation software. It may contain incorrect words, [...] Emergency Room. Call 911 if necessary. 10/16/18 8349 <Electronically signed by Darrel Bean MD> Date Star Bean MD Cosigner Signature (If Indicated): Date CC: Anabella Núñez MD 16-Oct-2018 Chest 1 View (Portable) Result: Comments: See Note; NOTES: [facility] Imaging Services [address] [place] [address] Chest 1 View (Portable) MR#: [id number] Acct: [id number] Name: MAYRA GHOSH Rep #: [id number] : 1940 M 78 From: Gene Martell DO PCP: Anabella Núñez MD Status: REG ER Study: Chest 1 View (Portable) Date of Exam: 10/16/18 Exam# [id number] Ordering Dr: Darrel Bean MD STUDY: X-RAY [...] CC: Anabella Núñez MD; Darrel Bean MD Propeller Mechanic: Signed 30-Sep-2018 Chest 1 View (Portable) Result: Comments: See Note; NOTES: [facility] Imaging Services [address] [place] [address] Chest 1 View (Portable) MR#: [id number] Acct: [id number] Name: MAYRA GHOSH Rep #: [id number] : 1940 [facility] From: Nereyda Barr MD PCP: Anabella Núñez MD Status: REG ER Study: Chest 1 View (Portable) Date of Exam: 09/30/18 Exam# [id number] Ordering Dr: Jennifer Sibley MD STUDY: X-RAY [...] CC: MD Zelalem palma; Anabella Núñez MD Propeller Mechanic: Signed 22-Sep-2018 History and Physical Exam Result: Comments: See Note; NOTES: [facility] Medical Records Department [address] [place] [address] History and Physical 09/22/18 0602 MR#: [id number] Acct: [id number] Name: JETHRO GHOSH Rep #: [id number] : 1940 78 From: Etta Grey PCP: [...] Qualifiers: Coronary Disease-Associated Artery/Lesion type: bypass graft Venetie Ira vs. transplanted he art: ramona heart Associated angina: angina presence unspecified Qualified Code(s): I25.810 - Atherosclerosis of coronary artery bypass graft(s) without angina pectoris (6) XOCHITL (obstructive sleep apnea ) Status: Chronic (7) Diabetes mellitus type 2, noninsulin dependent Status: Chronic (8) Atherosclerotic heart disease of ramona coronary artery without angina pectoris Status: Chronic Qualifiers: Justin mary vs. transplanted heart: ramona heart Qualified Code(s): I25.10 - Atherosclerotic heart disease of ramona coronary artery without angina pectoris Comment: CABG 1988; Reoperation CABG x3 SVG to LAD, S VG to Rt PDA, Radial artery to OM-2 10/08/02; [facility] ablation @[facility] 01/[facility]/17 [facility] 03/10/2016 (9) Ventricular tachycardia (paroxysmal) Status: Chronic [...] type II, XOCHITL who presents to the [facility] ED on 09/22/18 with history of nausea, [...] (Chronic) Hypokalemia (Chronic) Atherosclerotic heart disease of ramona coronary artery without angina pectoris (Chronic) CABG 1988; Reoperation CABG x3 SVG to LAD, SVG to Rt PDA, Radial artery to OM-2 10/08/02; VT ablation @[facility] 01/03/17 [facility] 03/10/2016 Ventricular tachycardia (paroxysmal) (Chronic) ICD (implantable cardioverter-defibrillator) in place (Chronic 11/2001) Implant 12/10/2001 ICD replacement 06/10/2009, 06/05/2014, Systolic CHF, chronic (Chronic) Cardiomyopathy, ischemic (Chronic) CKD (chronic kidney disease), stage II (Chronic) Type I I diabetes mellitus, uncontrolled (Chronic) Esophageal reflux (Chronic) HLD (hyperlipidemia) (Chronic) HTN (hypertension) (Chronic) Hypothyroidism (Chronic) Sleep apnea (Chronic) Medical History: [facility] History (Last Reviewed 08/30/18 @ [...] Hypokalemia (Chronic) E87.6 Atherosclerotic heart disease of ramona coronary artery without angina pectoris (Chronic) I25.10 CABG 1988; Reoperation CABG x3 SVG to LAD, SVG to Rt PDA, R adial artery to OM-2 10/08/02; VT ablation @[facility] 01/03/17 [facility] 03/10/2016 Ventricular tachycardia (paroxysmal) (Chronic) I47.2 [...] II, XOCHITL who present s to the [facility] ED on 09/22/18 with history of nausea, [...] Prophylaxis: SCDs, heparin. Code Visit OBSV JONH: 10875 Initial observation care L3 09/22/18 0634 <Electronically signed by Etta Grey > Date Etta Grey Cosign er Signature: Date (if applicable) CC: Etta Grey; Anabella Núñez MD Signed 22-Sep-2018 Emergency Department Summary Result: Comments: See Note; NOTES: [facility] Medical Records Department [address] [place] [address] Emergency Department Summary 09/22/18 0619 MR#: [id number] Acct: [id number] Name: MAYRA GHOSH Rep #: [id number] : 1940 78 From: Juan C Winston [...] Epiploic appendagitis This note was generated with Chef Surfing dictation software. It may contain incorrect words, spelling, and punctuation that were not noted in review of the [facility] rt prior to signing ED Disposition - Plan for ED Patient: Chief Complaint: Nausea/Vomiting Referrals: Anabella Núñez MD [Primary Care Provider] - What to do if you have Problems For any increased pain, shortness of breath, bleeding, nausea or vomiting, chest pain, or any unexpected problems, contact your Primary Care Provider. Call [facility] ([phone]) or report to the closest Emergen cy Room. Call 911 if necessary. 09/22/18 0621 <Electronically signed by Juan C Winston MD> Date Juan C Winston MD Cosigner Signatur e (If Indicated): Date CC: Anabella Núñez MD 22-Sep-2018 Abdomen/Pelvis without Cont Result: Comments: See Note; NOTES: [facility] Imaging Services [address] [place] [address] Abdomen/Pelvis without Cont MR#: [id number] Acct: [id number] Name: MAYRA GHOSH Rep #: [id number] : 1940 M 78 From: Vernon Coronel MD PCP: Anabella Núñez MD Status: REG ER Study: Abdomen/Pelvis without Cont Date of Exam: 09/22/18 Exam# [id number] Ordering Dr: Juan C Winston MD STUDY: [...] Anabella Núñez MD; Juan C Winston MD Propeller Mechanic: Signed 30-Aug-2018 Cardiology Visit Report Result: Comments: See Note; NOTES: [facility] [address] [place] [address] OFFICE VISIT Date of Service: 08/30/18 MR#: [id number] Acct: [id number] Name: MAYRA GHOSH Re p #: [id number] : 1940 Provider: Amando Hu MD Age/Sex: 78/M [place] [facility] Status: Signed HPI HPI Details: MAYRA GHOSH, [...] tab 08/30/18 [History Confirmed 08/30/18] [facility] Medical History HLD (hyperlipidemia) (Chronic) Non -ST [...] (Chronic) Hypokalemia (Chronic) Atherosclerotic heart disease of ramona coronary artery without angina pectoris (Chronic) Ventricular [...] Negative for rash Cardiology Exam Const Appearance: volunteer services coordinator perative, healthy appearing, comfortable, no acute [...] study was technically difficult. Contrast injection was eababh8sw. Mildly dilated left ventricle. Moderately severe segmental [...] peak blood pressure of 116/66 mmHg. [facility] ECG demonstrated normal sinus rhythm with a [...] an LVEF of 26%. Cardiac cath: 016: [place], [place] II. SELECTIVE CORONARY ANGIOGRAPHY: A. The [...] The circumflex system is not visualized on ramona left coronary inj ection, but rather faint [...] add ramipril - lCD programmed ON ICD Photogrammetric Stereo Compiler: Medtronic Name: Melia Gonzales CRTD Model #: DTBB 1D1 Serial #: [id number] Date Implanted: 06/05/2014 Device Characteristics Device: Biventricular Type: Implantable defibrillator Remote:[facility]link Assessment AND Plan 1. CAD in ramona artery I25.10 Plan At the present time [...] is on dual antiarrhythmic therapy per his director erp. He appears to be tolerating the medications [...] Code Off vis,est,level 4 Diagnoses CAD in ramona artery I25.10 Postsurgical aortocoronary bypass status Z95.1 [...] Code Off vis,est,level 4 Diagnoses CAD in ramona artery I25.10 Postsurgical aortocoronary bypass status Z95.1 Cardiomyopathy, ischemic I25.5 Chronic systolic CHF (congestive heart failure) I 50.22 Paroxysmal ventricular tachycardia I47.2 Automatic implantable cardiac defibrillator in situ Z95.810 Hyperlipidemia, unspecified hyperlipidemia type E78.5 Hyperlipidemia type: unspecified [facility] hypertension I10 Hypertension type: essential hypertension Dyspnea R06.00 Localized edema R60.0 Edema type: localized 11/02/18 1513 <Electronically signed by Amando Hu MD> Date Amando Hu MD Cosigner Signature: Date (if applicable) CC: Anabella Núñez MD; Alpesh Murcia M.D. 30-Aug-2018 12 Lead [place] [facility] Result: Comments: See Note; NOTES: [facility] [address] [place] [address] 12 Lead EKG performed [place] [facility] 08/30/18 1425 MR#: [id number] Acct: [id number] Name: MAYRA GHOSH Rep #: [id number] : 1940 78 From: Amando Hu MD Attending Dr: Amando Hu MD Status: DEP [facility] Ordering Dr: Amando Hu MD Date: 08/30/18 [place] [facility] Sex: M C Admitted: O RDER #: [id number] [facility]12 Lead EKG performed [place] [facility] ECG Report Interpretation Electronic ventricular pacemaker Pacemaker ECG, No further analysis Electronically signed on 2017 at 15:23 by Amando Hu Software Version 8610 08/30/18 1524 Date Amando Hu MD CC: Anabella Núñez MD Date Dictated: 08/30/18 14 Date Transcribed: 08/30/18 1425 Propeller Mechanic: PM Signed 14-Aug-2018 Pacemaker Check Result: Comments: See Note; NOTES: [facility] [address] [place] [address] Pacemaker Check Date of Service: 08/14/18 1620 MR#: [id number] Acct: [id number] Name: CLARE GHOSH W Rep #: [id number] : 1940 From: Kristie Perry Age/Sex: 78/M [place] [facility] Status: Signed Billing Codes ICD Device Billing: ICD Dev Interrogate (Rmt) 08/14/18 1623 <Electroni jacque signed by Kristie Perry > Date Kristie Perry 08/14/18 1646<Electronically signed by Amando Hu MD> Cosherminioer Signatur e: Date (if applicable) Amando Hu MD CC: 30-Jul-2018 Pacemaker Check Result: Comments: See Note; NOTES: [facility] [place] [address] Pacemaker Check Date of Service: 07/30/18 0949 MR#: [id number] Acct: [id number] Name: CLARE GHOSH W Rep #: [id number] : 1940 From: Kristie Perry Age/Sex: 78/M [place] [facility] Status: Signed Billing Codes ICD Device Billing: ICD Dev Interrogate (Rmt) 07/30/18 0951 <Electroni jacque signed by Kristie Perry > Date Kristie Perry 07/30/18 1047<Electronically signed by Amando Hu MD> Cosigner Signatur e: Date (if applicable) Amando Hu MD CC: 07-May-2018 Pacemaker Check Result: Comments: See Note; NOTES: [facility] [address] [place] [address] Pacemaker Check Date of Service: 05/07/181649 MR#: [id number] Acct: [id number] Name: CLARE GHOSH Rep #: [id number] : 1940 From: Kristie Perry Age/Sex: 78/M [place] [facility] Status: Signed Billing Codes ICD Device Billing: ICD Dev Interrogate (t) 05/07/181653 <Electroni jacque signed by Kristie Perry > Date Kristie Perry 05/07/181756<Electronically signed by Amando Hu MD> Wei Rodney e: Date (if applicable) Amando Hu MD CC: 22-Feb-2018 Cardiology Visit Report Result: Comments: See Note; NOTES: [facility] [address] [place] [address] OFFICE VISIT Date of Service: 02/22/18 MR#: [id number] Acct: [id number] Name: MAYRA GHOSH p #: [id number] : 1940 Provider: Amando Hu MD Age/Sex: 77/M [place] [facility] Status: Signed HPI HPI Details: MAYRA MIRELA, is a 77 M who presents to the office today for for outpatient card iovascular follow-up. He has been hospitalized at [facility] in December of this [...] tablet 2.5 mg PO QWEEK PRN tab 04/27/18 [History] [facility] Medical His tory HLD (hyperlipidemia) (Chronic) Non-ST [...] (Chronic) Hypokalemia (Chronic) Atherosclerotic heart disease of ramona coronary artery witho ut angina pectoris (Chronic) [...] current medical management. He will continue with al s metolazone therapy on a as needed basis. He is rates he does use this approximately every 3 days. He recently had a BMP. His BUN and creatinine were somewhat elevated however not necessarily unexpect ed for his cardiovascular condition. He states he will be following up with nephrology to assist in monitoring his underlying renal status. 2. Atherosclerosis of ramona coronary artery of ramona heart without angina pectoris I25.10 CABG 1988; Reoperation CABG x3 SVG to LAD, SVG to Rt PDA, Radial artery to OM-2 10/08/02; VT ablation [facility] 01[facility]/17 [facility] 03/10/2016 Plan He does have a [...] Systolic CHF, chronic I50.22 Atherosc lerosis of ramona coronary artery of ramona heart without angina pectoris I25.10 Venetie Ira vs. transplanted heart: ramona heart Postsurgical aortocoronary bypass status Z95.1 Cardiomyopathy, [...] Diagnoses Systolic CHF, chronic I50.22 Atherosclerosis of ramona coronary artery of ramona heart without angina pectoris I25.10 Venetie Ira vs. transpla nted heart: ramona heart Postsurgical aortocoronary bypass status Z95.1 Cardiomyopathy, [...] Pacemaker Check Result: Comments: See Note; NOTES: [facility] [address] [place] [address] Pacemaker Check Date of Service: 02/11/181907 MR#: [id number] Acct: [id number] Name: CLARE GHOSH W Rep #: [id number] : 1940 From: Kristie Perry Age/Sex: 77/M [place] [facility] Status: Signed Comments Summary Comments: Remote Bi-VICD [...] Location: remote Interview Reason: scheduled follow up Photogrammetric Stereo Compiler: Medtronic Name: Viva S ENGLISH LANGUAGE LEARNER TEACHER-D Model: [id number] Serial #: [id number] Implant Date: 06/05/14 Year(s): 3 Implant Physician: Dr. Saturnino Oquendo/[facility] Patient Characteristics Ventricular Indication: Nonsustained VT, Sustaned VT Patient Substrate: Ischemic cardiomyopathy Ejection fraction %: 35 to 39 ( 02/2017) By: Echo Pacemaker Dependent: No Device Characteristics Device: Biventricular Type: Implantable defibrillator Remote Follow-Up: [facility] Leads Lead #1 Photogrammetric Stereo Compiler Lead 1: [place] Model Lead 1: 2088TC Serial# Lead 1: [id number] Date Implanted Lead 1: 06/05/14 Position Lead 1: RA Lead #2 Photogrammetric Stereo Compiler Lead 2: Medtronic Model Lead 2: 6947 Serial# Lead 2: [id number] Date Implanted Lead 2: 11/09 Lead #3 Photogrammetric Stereo Compiler Lead 3: [place] Model Lead 3: 1258T Serial# Lead 3: [id number] Date Implanted Lead 3: 06/05/14 Position Lead [...] View (Portable) Result: Comments: See Note; NOTES: [facility] Imaging Services [address] [place] [address] Chest 1 View (Portable) MR#: [id number] Acct: [id number] Name: MAYRA GHOSH Rep #: [id number] : 1940 M 77 From: Renae Coleman MD PCP: Anabella Núñez MD Status: REG ER Study: Chest 1 View (Portable) Date of Exam: 01/18/18 Exam# [id number] Ordering Dr: Bennie Hernandez MD STUDY: X-RAY [facility] REASON FOR EXAM: Male, 77 [...] CC: Anabella Núñez MD; Bennie Hernandez MD Propeller Mechanic: Signed 09-Jan-2018 Chest PA and Lateral Result: Comments: See Note; NOTES: [facility] Imaging Services [address] [place] [address] Chest PA and Lateral MR#: [id number] Acct: [id number] Name: MAYRA GHOSH Rep #: [id number] : 1940 M 77 From: Louis Sue MD PCP: Anabella Núñez MD Status: REG CLI Study: Chest PA and Lateral Date of Exam: 01/09/18 Exam# [id number] Ordering Dr: Delisa Gordon DO STUDY: X-RAY [...] Louis Sue MD at 12:59 EDT Tel [phone], Service support , CC: Anabella Núñez MD; Delisa Gordon DO Propeller Mechanic: Signed 07-Jan-2018 Inital Evaluation (1) - PT Result: Comments: See Note; NOTES: [facility] Physical Therapy [facility] [address] [place] [address] Fax REHABILITATION SERVICES INITIAL EVALUATION MR#: [id number] Acct: [id number] Name: MAYRA GHOSH Rep #: [id number] : 1940 77 From: Polo Bedolla DPT, OCS, CSCS Referring Dr.: CLARI Smith Status: REG RCR Insurance: [facility] Patient's Visit Information MAYRA GHOSH is a 77 year old M referred to Physical Therapy by Krystal Smith, CLARI-C TOY PACKER.LCODY with a diagnosis of unsteady. Date of Evaluation: 01/03/18 P hysical Therapist: Polo Bedolla, DPT, OC - Visit Plan Plan: Pt doesn not want to undergo further balance or strength at this time as he can and will continue on his own as planned. He has no falls nor does he feel unsteady. 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 He understands doctors offic e has written a script for that and is awaiting their referral phone call. Otherwise he will continue ex as planned in previous discharge summary. - Subjective Subjective: Dizzyness and balance the jagdish e as last week. Not sure why he is here. Saw both doctors last week and said he was fine. Will workout at [facility] I adn continue HEP of balance ex as taught to him. Does nto wish to have balance PT. Thought he was having regional dedicated truck driver evaluation. No other major changes [...] to be FAXED BACK to us at [phone] for Medicare purposes. Please let me know [...] Summary (1) Result: Comments: See Note; NOTES: [facility] Physical Therapy [facility] [address] [place] [address]. [address] [place] [address] Fax REHABILITATION SERVICES DISCHAR SUMMARY MR#: [id number] Acct: [id number] Name: MAYRA GHOSH Rep #: [id number] : 1940 77 From: Polo Bedolla DPT, JEREMI, CSCS Referring Dr.: Anabella Núñez MD Status: REG RCR [facility] HP - [...] please feel free to call me at [phone]. Thank you for the referral of this patient. Sincerely, Polo Jewell am, DPT, OC <Electronically signed by Polo Bedolla DPT, OCS, CSCS> 12/25/17 0906 CC: Anabella Núñez MD EBG Signed 10-Dec-2017 Office Visit Report Result: Comments: See Note; NOTES: [facility] [address] [facility] [place] [address] OFFICE VISIT Date of Service: 10/25/17 MR#: [id number] Acct: [id number] Patient: MAYRA GHOSH Rep #: [id number] : 1940 Provider: Kristie Perry Age/Sex: 77/M [place] [facility]: Signed Device Device Date Interviewed: 10/25/17 Follow-up Location: remote Interview Reason: scheduled follow up Man ufacturer: Medtronic Name: Viva S ENGLISH LANGUAGE LEARNER TEACHER-D Model: [id number] Serial #: [id number] Implant Date: 06/05/14 Year(s): 3 Implant Physician: Dr. Saturnino Oquendo/[facility] Patient Characteristics Ventricular Indication: Nonsu stained VT, Sustaned VT Patient Substrate: Ischemic cardiomyopathy Ejection fraction %: 35 to 39 (02/2017) By: Echo Underlying rhythm: Sinus rhythm (1st degree AVB and frequent PVC's) Pacemaker Dependen t: No Device Characteristics Device: Biventricular Type: Implantable defibrillator Remote Follow-Up: [facility] Lead #1 Photogrammetric Stereo Compiler Lead 1: [place] Model Lead 1: 2088TC Serial# Lead 1: [id number] Date Implanted Lead 1: 06/05/14 Position Lead 1: RA Lead #2 Photogrammetric Stereo Compiler Lead 2: Medtronic Model Lead 2: 6947 Serial# Lead 2: [id number] Date Implanted Lead 2: 11/09/01 Lead #3 Photogrammetric Stereo Compiler Lead 3: [place] Model Lead 3: 1258T Serial# Lead 3: [id number] Date Implanted Lead 3: 06/05/14 Position Lead [...] - PT Result: Comments: See Note; NOTES: [facility] Physical Therapy [facility] [address] [place] [address]. [address] [place] [address] Fax REHABILITATION SERVICES INITIAL EVALUATION MR#: [id number] Acct: [id number] Name: MAYRA GHOSH Rep #: [id number] : 1940 77 From: Polo WILSONT, OCS, CSCS Referring Dr.: Anabella Núñez MD Status: REG R Insurance: [facility] SELF PAY INSURANCE Patient's Visit Information MAYRA [...] wear him out to get to the [employer]. Normally works out at [employer] with balance ex. Feels like vik nce [...] 2-4 Weeks Goal 2:: Balance back to to minimize fall risk Goal Time Frame: [...] to be FAXED BACK to us at [phone] for Medicare purposes. Please let me know if there are questions or concerns regarding this plan of care. Physician Signature: Date: <Electronically sig favian by Polo Bedolla DPT, OCS, CSCS> 12/03/17 0942 CC: Anabella Núñez MD EBG Signed For Medicare only, by signing this I certify the plan of care. Physicians Signature Date 14-Nov-2017 Cardiology Visit Report Result: Comments: See Note; NOTES: [facility] [address] [place] [address] OFFICE VISIT Date of Service: 11/14/17 MR#: [id number] Acct: [id number] Name: MAYRA GHOSH p #: [id number] : 1940 Provider: Amando Hu MD Age/Sex: 77/M [place] [facility] 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 At that [...] last diagnostic cardiac catheterization was performed at [facility] in [place], [place] on 03/08/2016. At that ti me [...] CABG was performed on 10/08/2002 at the [facility]. At that time he had an [...] Hypokalemia (Chronic) Ather osclerotic heart disease of ramona coronary artery without angina pectoris (Chronic) Ventricular [...] Flexpen) Discontinued Reasliding scale SC QDAY Ollie Coobs son: Pt no longer taking Additional Comments Otherwise she will continue to follow with his [facility] physician especially with respect to [...] I25.10 Coronary Disease-Associated Artery/Lesion type: bypass graft Venetie Ira vs. transplanted heart: justin hernandez heart Postsurgical [...] and Lateral Result: Comments: See Note; NOTES: [facility] Imaging Services [address] [place] [address] Chest PA and Lateral MR#: [id number] Acct: [id number] Name: MAYRA GHOSH Екатерина Rep #: [id number] : 1940 M 77 From: Nereyda Barr MD PCP: Anabella Núñez MD Status: REG CLI Study: Chest PA and Lateral Date of Exam: 11/11/17 Exam# [id number] Ordering Dr: Anabella Núñez MD STUDY: X-RAY [...] Service support , CC: Anabella Núñez MD Propeller Mechanic: Signed 30-Oct-2017 Office Visit Report Result: Comments: See Note; NOTES: [facility] [address] [place] [address] OFFICE VISIT Date of Service: 10/25/17 MR#: [id number] Acct: [id number] Patient: MAYRA GHOSH Rep #: [id number] : 1940 Provider: Kristie Perry Age/Sex: 77/M [place] [facility] [place]: Signed Device Device Date Interviewed: 10/25/17 Follow-up Location: remote Interview Reason: scheduled follow up Man ufacturer: Medtronic Name: Viva S ENGLISH LANGUAGE LEARNER TEACHER-D Model: ANIG3T5 Serial #: [id number] Implant Date: 06/05/14 Year(s): 3 Implant Physician: Dr. Saturnino Oquendo/[facility] Patient Characteristics Ventricular Indication: Nonsu stained VT, Sustaned VT Patient Substrate: Ischemic cardiomyopathy Ejection fraction %: 35 to 39 (02/2017) By: Echo Underlying rhythm: Sinus rhythm (1st degree AVB and frequent PVC's) Pacemaker Dependen t: No Device Characteristics Device: Biventricular Type: Implantable defibrillator Remote Follow-Up: [facility] Leads Lead #1 Photogrammetric Stereo Compiler Lead 1: [place] Model Lead 1: 2088TC Serial# Lead 1: [id number] Date Implanted Lead 1: 06/05/14 Position Lead 1: RA Lead #2 Photogrammetric Stereo Compiler Lead 2: Medtronic Model Lead 2: 6947 Serial# Lead 2: [id number] Date Implanted Lead 2: 11/09/01 Lead #3 Photogrammetric Stereo Compiler Lead 3: [place] Model Lead 3: 1258T Serial# Lead 3: [id number] Date Implanted Lead 3: 06/05/14 Position Lead [...] Summary (1) Result: Comments: See Note; NOTES: [facility] Physical Therapy [facility] [address] [place] [address]. [address] [place] [address] Fax REHABILITATION SERVICES DISCHAR SUMMARY MR#: [id number] Acct: [id number] Name: MAYRA GHOSH Rep #: [id number] : 1940 77 From: Polo Bedolla DPT, OCS, CSCS Referring Dr.: CLARI Smith Status: REG R [facility] PT D/C Summary It has [...] please feel free to call me at [phone]. Thank you for the referral of this patient. Sincerely, Polo Bedolla, DPT, OC <Electronically signed by Polo WILSONT, OCS, CSCS> 10/15/17 0645 CC: CLARI Smith; Anabella Núñez MD EBG Signed 24-Sep-2017 D/C Summary- SP Result: Comments: See Note; NOTES: [facility] Speech Pathology [facility] [address] [place] [address] Fax REHABILITATION SERVICES DISCHAR SUMMARY MR#: [id number] Acct: [id number] Name: MAYRA GHOSH Rep #: [id number] : 1940 77 From: Darlin Wilson M.S., KEN-MOTION PICTURE PROJECTIONIST Referring Dr.: CLARI Smith Status: REG R Insurance: AET [facility] Discharge Summary - Discharged: Discharge: [...] CI <Electronically signed by Darlin Wilson M.S., KEN-MOTION PICTURE PROJECTIONIST&#6 2; 09/24/17 1428 CC: CLARI Smith; Anabella Núñez MD MO Signed 21-Sep-2017 OT D/C Summary Result: Comments: See Note; NOTES: [facility] Occupational Therapy [facility] [address] [place] [address] Fax REHABILITATION SERVICES DIS CHARGE SUMMARY MR#: [id number] Acct: [id number] Name: MAYRA GHOSH Rep #: [id number] : 1940 77 From: Ev Rahman Referring [...] MMT. Additional strength assessments are as follows: cinder pitman R 85, L 75; lateral R 15, [...] Resume Hobbies Goal:: Pt. to increase R cinder pitman strength by 15 -20 lbs to promote [...] please fell free to call me at [phone]. Thank you for the referral of this patient. Sincerely, Ev Ramhan <Electronically signed by Ev Rahman > 09/21/17 1203 CC: CLRAI Smith; Anabella Núñez MD KMB Signed 18-Sep-2017 Re-Evaluation - PT (1) Result: Comments: See Note; NOTES: [facility] Physical Therapy [facility] [address] [place] [address]. [address] [place], [place] [address] Fax REEVALUATION / MEDICARE RECERTI FICATION PHYSICAL THERAPY MR#: [id number] Acct: [id number] Name: MAYRA GHOSH Rep #: [id number] : 1940 77 From: Polo Bedolla DPT, OCS, CSCS Referring DrDusty: CLARI Smith Status: REG RCR Insura nce: [facility]ET[facility] TIM Smith, TOY PACKER-C, It has been my pleasure to treat [...] not hesitat e to contact me at [phone] by phone or if you have questions or concerns regarding this new plan of care! Sincerely, KATIE FarrarT, OC <Electronically signed by Pk WILSONT, OCS, CSCS> 09/18/17 0922 CC: CLARI Smith; Anabella Núñez MD EBG Signed For Medicare only, by signing this I certify the plan of care. Physicians Signature Date 03-Sep-2017 OT General Evaluation Result: Comments: See Note; NOTES: [facility] Occupational Therapy [facility] [address] [place] [address] Fax REHABILITATION SERVICES IN TIA EVALUATION MR#: [id number] Acct: [id number] Name: MAYRA GHOSH Rep #: [id number] : 1940 77 From: Ev Rahman Referring Dr.: CLARI Smith Status: REG R [facility] Joshua Soundstache Date: Patient's Visit Information MAYRA GHOSH is a 77 year old M, referred to Occupational Therapy by Krystal Smith, CLARI-C,, with a diagnosis of fall-related intracranial hemorrhage s/pcraniotomy. D ate of Evaluation: 08/27/17 Occupational Therapist: Ev Rahman - Subjective Subjective: Pt., Mayra, had fall july 03 and [facility] present for evaluation and no johnathan that while in hospital he has multiple seizures. HE was transferred up to [place] in which craniotomy was preformed to help decrease pressure on brain as is was continuing to swell. While in [facility] after surgery he was intubated due [...] L 4/5 Wrist: R 3+/5, L 4/5 Studio Operations Engineer In Charge: R 75, L 79 Lateral Pinch: R [...] - Goals Goal:: Pt. to increase R cinder pitman strength by 15-20 lbs to promote increased [...] services to promote increasing B UE strength, cinder pitman and FMC strength, finger dexterity, B hand [...] to be FAXED BACK to us at [phone] for Medicare purposes. Please let me know if there are questions or concerns regarding this plan of care. Physician Signature: Date: <Electronically signed by Ev Rahman > 09/03/17 1032 CC: CLARI Smith; Anabella Núñez MD KMWoody Signed For Medicare only, by signing this I certify the plan of care. Physicians Signature Date 29-Aug-2017 Inital Evaluation (1) - PT Result: Comments: See Note; NOTES: [facility] Physical Therapy [facility] [address] [place] [address]. [address] [place] [address] Fax REHABILITATION SERVICES INITIAL EVALUATION MR#: [id number] Acct: [id number] Name: MAYRA GHOSH Rep #: [id number] : 1940 77 From: Polo Bedolla DPT, OCS, CSCS Referring Dr.: CLARI Smith Status: REG RCR Insurance: [facility] Patient's Visit Information MAYRA GHOSH is a 77 year old M referred to Physical Therapy by Krystal Smith NP-C with a diagnosis of debility, intracranial hemmorhage. [facility] Polo Bedolla, KATIET, OC - Visit Plan Frequency: 3x /Week [...] to be FAXED BACK to us at [phone] for Medicare purposes. Please let me know [...] - SP Result: Comments: See Note; NOTES: [facility] Speech Pathology [facility] [address] [place] [address] Fax REHABILITATION SERVICES INITIAL EVALUATION MR#: [id number] Acct: [id number] Name: MAYRA GHOSH Rep #: [id number] : 1940 77 From: Tarcy Hartman Referring DrDusty: CLARI Rice Luis Status: REG R Insurance: [facility] ry - History Date of Eval: 08/27/17 Medical Diagnosis (from RX): debility s/p craniotomy Previous speech therapy: Yes Results: Pt received ST services in [facility] for primarily word finding deficits. Oth er Relevant Medical History/Diagnoses/Surgery: Pt had a fall which resulted in a craniectomy relieve pressure. Pt was at [facility], then [facility], back to [facility], and back to [facility]. Medications related to this diagno sis: [place], [...] Lead Electrocardiogram Result: Comments: See Note; NOTES: [facility] Cardiovascular Services [address] [place] [address] 12 Lead EKG 07/04/17 1650 MR#: [id number] Acct: [id number] Name: MAYRA GHOSH Rep # : [id number] : 1940 77 From: Bennie Ray MD [...] MD Date Dictated: 07/04/171649 Date Transcribed: 07/04/171649 Propeller Mechanic: Signed 04-Jul-2017 Emergency Department Summary Result: Comments: See Note; NOTES: [facility] Medical Records Department [address] [place] [address] Emergency Department Summary 07/04/171655 MR#: [id number] Acct: [id number] Name: MAYRA GHOSH Rep #: [id number] : 1940 77 From: Juan C Winston [...] answer some questions after arrival here to [facility] emergency department. notes that he did [...] transfer. Patient will be transf erred to [facility] and was accepted by the emergency [...] via helicopter. Treatment Plan: [] Disposition: Transfer [facility] Impression: Subdural hemorrhage with midline shift Seizures ED Disposition - Plan for ED Patient: Chief Complaint: Sei lge Referrals: Anabella Núñez MD [Primary Care Provider] - What to do if you have Problems For any increased pain, shortness of breath, bleeding, nausea or vomiting, chest pain, or any unexpected pr oblems, contact your Primary Care Provider. Call [facility] ([phone]) or report to the closest Emergency Room. Call 911 if necessary. 07/04/17 1700 <Electronically signed by Juan C Winston MD> Date Juan C Winston MD Cosigner Signature (If Indicated): Date CC: Anabella Núñez MD 04-Jul-2017 Brain/Head without Contrast Result: Comments: See Note; NOTES: [facility] Imaging Services [address] [place] [address] Brain/Head without Contrast MR#: [id number] Acct: [id number] Name: MAYRA GHOSH Rep #: [id number] : 1940 M 77 From: Darrel Lopez MD PCP: Anabella Núñez MD Status: DEP ER Study: Brain/Head without Contrast Date of Exam: 07/04/17 Exam# [id number] Ordering Dr: Juan C Winston MD STUDY [...] Anabella Núñez MD; Juan C Winston MD Propeller Mechanic: Signed 04-Jul-2017 Chest 1 View (Portable) Result: Comments: See Note; NOTES: [facility] Imaging Services [address] [place] [address] Chest 1 View (Portable) MR#: [id number] Acct: [id number] Name: MAYRA GHOSH Rep #: [id number] : 1940 M 77 From: Nadira Pedersen MD PCP: Anabella Núñez MD Status: REG ER Study: Chest 1 View (Portable) Date of Exam: 07/04/17 Exam# [id number] Ordering Dr: Juan C Winston MD STUDY: [...] Nadira Pedersen MD at 17:14 EDT Tel [phone], Service support , Fax CC: Anabella Núñez MD; Juan C Winston MD Propeller Mechanic: Signed 04-Jul-2017 Spine Cervical without Contras Result: Comments: See Note; NOTES: [facility] Imaging Services [address] [place] [address] Spine Cervical without Contras MR#: [id number] Acct: [id number] Name: MAYRA GHOSH Rep #: [id number] : 1940 M 77 From: Nadira Pedersen MD PCP: Anabella Núñez MD Status: REG ER Study: Spine Cervical without Contras Date of Exam: 07/04/17 Exam# [id number] Ordering Dr: Juan C Winston MD STUDY: [...] Nadira Pedersen MD at 17:19 EDT Tel [phone], Service support , Fa x [phone] CC: Anabella Núñez MD; Juan C Winston MD Propeller Mechanic: Signed 12-Jun-2017 Operative Report Result: Comments: See Note; NOTES: [facility] Medical Records Department [address] [place] [address] Operative Report 06/12/17 0804 MR#: [id number] Acct: [id number] Name: MAYRA GHOSH Rep #: [id number] : 1940 77 From: Pool Chávez MD PCP: Anabella Núñez MD Status: REG CLI Y Location: [place] [address] Report of Operation Date of Procedure: 06/12/17 [...] and Lateral Result: Comments: See Note; NOTES: [facility] Imaging Services [address] [place] [address] Chest PA and Lateral MR#: [id number] Acct: [id number] Name: MAYRA GHOSH Rep #: [id number] : 1940 M 77 From: Louis Sue MD PCP: Anabella Núñez MD Status: REG CLI Study: Chest PA and Lateral Date of Exam: 06/06/17 Exam# [id number] Ordering Dr: Delisa Gordon DO STUDY: X-RAY [...] Louis Sue MD at 13:58 EDT Tel [phone], Service support , CC: Anabella Núñez MD; Delisa Gordon DO Propeller Mechanic: Signed 14-Mar-2017 CTA Head W/WO Contrast Result: Comments: See Note; NOTES: [facility] Imaging Services [address] [place] [address] Verdana 4d CTA Head W/WO Contrast MR#: [id number] Acct: [id number] Name: MAYRA GHOSH Rep #: [id number] : 1940 [facility] From: Kalli Lowery MD PCP: Anabella Núñez MD Status: REG ER Study: CTA Head W/WO Contrast Date of Exam: 03/14/17 Exam# [id number] Ordering Dr: Gal Glasgow MD [facility] DY: CTA OF THE BRAIN REASON FOR EXAM: Male, 77 years old. DIZZINESS SINCE 8AM HX-HTN,IA,PACER,CABG,CHF RADIATION DOSAGE (If Supplied By Facility): CTDIvol [...] There is no demonstrated aneurysm of the chuloon[place] of Don[place]. There is no demonstrated abnormality of the visuali zed brain. CT/CTA Head W/WO Contrast IMPRESSION: No evidence of significant stenosis or occlusion of the intracranial arteries. See above. Elect ronically Signed: Kalli Lowery MD at 17:56 EDT Tel , Service support , CC: Anabella Núñez MD; Gal Glasgow MD Propeller Mechanic: Signed 14-Mar-2017 CTA Neck W/WO Contrast Result: Comments: See Note; NOTES: [facility] Imaging Services [facility] [place] [address] [facility] W/WO Contrast MR#: [id number] Acct: [id number] Name: MAYRA GHOSH Rep #: [id number] : 1940 M 77 From: Kalli Lowery MD PCP: Anabella Núñez MD Status: REG ER Study: CTA Neck W/WO Contrast Date of Exam: 03/14/17 Exam# [id number] Ordering Dr: Gal Glasgow MD [facility] DY: CTA NECK WITH CONTRAST REASON FOR EXAM: Male, 77 years old. DIZZINESS SINCE 8AM HX-HTN,IA,PACER,CABG,CHF RADIATION DOSAGE (If Supplied By Facility): CTDIvol [...] CC: Anabella Núñez MD; Gal Glasgow MD Propeller Mechanic: Signed 14-Mar-2017 Chest PA and Lateral Result: Comments: See Note; NOTES: [facility] Imaging Services [address] [place] [address] Verdana 4d Chest PA and Lateral MR#: [id number] Acct: [id number] Name: MAYRA GHOSH Rep #: [id number] : 1940 M 77 From: Kalli Lowery MD PCP: Anabella Núñez MD Status: REG ER Study: Chest PA and Lateral Date of Exam: 03/14/17 Exam# [id number] Ordering Dr: Gal Glasgow MD STUDY: X-RAY [...] CC: Anabella Núñez MD; Gal Glasgow MD Propeller Mechanic: Signed 02-Nov-2016 Chest PA and Lateral Result: Comments: See Note; NOTES: [facility] Imaging Services [address] [place] [address] Verdana 4d Chest PA and Lateral MR#: [id number] Acct: [id number] Name: MAYRA GHOSH Rep #: [id number] : 1940 M 76 From: Tyshawn Gayle DO PCP: Anabella Núñez MD Status: REG CLI Study: Chest PA and Lateral Date of Exam: 11/02/16 Exam# [id number] Ordering Dr: Amando Hu MD STUDY: X-R [...] interval change. Electronica lly Signed: Tyshawn Gayle at 12:16 EST Tel [phone], Service support [phone], CC: Anabella Núñez MD; Amando Hu MD Propeller Mechanic: Signed 08-Sep-2016 Kidney and Bladder Result: Comments: See Note; NOTES: [facility] Imaging Services [address] [place] [address] Verdana 4d Kidney and Bladder MR#: [id number] Acct: [id number] Name: MAYRA GHOSH Rep #: [id number] : 1940 M 76 From: Louis Sue MD PCP: Anabella Núñez MD Status: REG CLI Study: Kidney and Bladder Date of Exam: 09/08/16 Exam# [id number] Ordering Dr: Anabella Núñez MD STUDY: RENAL [...] Louis Sue MD at 15:05 EST Tel [phone], Service support [phone], CC: Anabella Núñez MD Propeller Mechanic: Signed 13-Sep-2015 Chest PA and Lateral Result: Comments: See Note; NOTES: [facility] Imaging Services [address] [place] [address] Verda 4d Chest PA and Lateral MR#: [id number] Acct: [id number] Name: Lula GHOSH Rep #: [id number] : 1940 M 75 From: Louis Sue MD PCP: Anabella Núñez MD Status: REG CLI Study: Chest PA and Lateral Date of Exam: 09/13/15 Exam# [id number] Ordering Dr: Daria Lowe STUDY: X-RAY CHEST [...] Louis Sue MD at 12:55 EST Tel [phone], Service support [phone], RAD/Chest PA and Lateral IMPRESSION: No acute abnorma lity is seen. Cardiomegaly. Electronically Signed: Louis Sue MD at 12:55 EST Tel [phone], Service support [phone], CC: Daria Lowe; Anabella Núñez MD Propeller Mechanic: Signed 13-Sep-2015 Spirometry (95771) Comments: normal Result: 23-Apr-2014 Echocardiogram Complete Result: Comments: See Note; NOTES: [facility] Cardiovascular Services [address] [place] [address] Echo Complete 04/23/14 0954 MR#: [id number] Acct: [id number] Name: CORNELIA GHOSH Rep #: [id number] : 1940 74 From: Amando Hu MD Attending Dr: Amando Hu MD Status: REG CLI Ordering Dr: Amando Hu MD Date: 04/23/14 Location: [facility] Sex: M C Admitted: Procedure [...] Mid- inferoseptal : Akinetic. Mid-anteroseptal : Akinetic. [facility] : Hypokinetic. Right Ventricle Normal RV size. [...] max P.7 mmHg TR max P.4 m [facility] E/E' med: 36.0 Interpretation Summary The study [...] MD Date Dictated: 04/23/14953 Date Transcribed: 04/23/142135 Propeller Mechanic: Signed 21-Jan-2014 Chest PA and Lateral Result: Comments: See Note; NOTES: [facility] Imaging Services [address] [place] [address] Radiology Report MR#: [id number] Acct: [id number] Name: MAYRA GHOSH Rep #: [id number] : 1940 73 From: Louis Sue MD PCP: Anabella Núñez MD Status: REG CLI Study: Chest PA and Lateral Date of Exam: 01/21/14 Exam# [id number] Ordering Dr: Anabella Núñez MD STUDY: X [...] M.D. 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 PREVIOUS SPECIMEN REJECTED DUE TOHEMOLYSIS. 10/16/18 Anabelle1 Cinthia Mcneal.'TROP' Serial specimen #1, #2, #3, or #4: [address] [place] [address] [address] [place], [place], [address] GAP 10 (Normal) Range: 5-15 CO2 26.0 [...] A.D.A. criteria.Please note revised GLUCOSE reference range ldfyehgte42/02/2018. 10-Zkx-868067:00 Magnesium Comments: REDRAW. PREVIOUS SPECIMEN REJECTED DUE TOHEMOLYSIS. 10/16/18 143 Cinthia Mcneal.'TROP' Serial specimen #1, #2, #3, or #4: [address] [place] [address] [address] [place], [place], [phone](099 MG 2.1 mg/dL (Normal) Range: 1.6-2.6 31-Scj-825996:00 Troponin-I Comments: REDRAW. PREVIOUS SPECIMEN REJECTED DUE TOHEMOLYSIS. 10/16/18 1431 Cinthia Mcneal.'TROP' Serial specimen #1, #2, #3, or #4: [address] [place] [address] [address] [place], [place], [address](590 TROPONIN-I 0.022 ng/mL (Normal) Comments: TROPONIN-I EXPECTED VALUES <0.045 Negative 0.045 - 0.590 Consistent with Cardiac Damage > OR = 0.600 Critical Value Not every elevated troponin is indicative of IA. T hesevalues should be used with clinical judgement in examiningthe patient's clinical picture for diagnosis. To establisha diagnosis of IA versus myocardial injury, there must be ademonstrated rise and/ or fall in the troponin values, inaddition to ischemic symptoms, EKG changes, new regionalwall motion abnormality, and/or angiographical evidence. PLEASE NOTE: REFERENCE RANGES EDITED 03/11/1816-Oct-201848-Xbo-652999:00 CBC W/Diff, Automated Comments: [facility] [address] [place], [place], [id number] Absolute Lymph 1.37 {X10_3/ul} (Normal) Range: 0.83-4.51 [...] 4.4-11.0 :13 Basic Metabolic Profile (BMP) Comments: [facility] [address] [place], [address] GAP 12 (Normal) Range: 5-15 CO2 22.0 [...] A.D.A. criteria.Please note revised GLUCOSE reference range mwtrewlce93/02/2018. 30-Sep-20187:13 CBC W/Diff, Automated Comments: [facility] [address] [place], [address] Absolute Lymph 1.40 {X10_3/ul} (Normal) [...] K/mm3 (Normal) Range: 4.4-11.0 :13 Troponin-I Comments: [address] [place], [address] TROPONIN-I 0.030 ng/mL (Normal) Comments: TROPONIN-I EXPECTED VALUES <0.045 Negative 0.045 - 0.590 Consistent with Cardiac Damage > OR = 0.600 Critical Value Not every elevated troponin is indicative of IA. T hesevalues should be used with clinical judgement in examiningthe patient's clinical picture for diagnosis. To establisha diagnosis of IA versus myocardial injury, there must be ademonstrated rise and/ or fall in the troponin values, inaddition to ischemic symptoms, EKG changes, new regionalwall motion abnormality, and/or angiographical evidence. PLEASE NOTE: REFERENCE RANGES EDITED 03/11/1830-Sep-20187:00 Urinalysis, Complete Comments: Order Date: 09/30/18Has pt arrived? YHow was Urine Obtained? SEAMING INSPECTOR TO SPECIFYAd[facility] [address] [place], [address] MUCUS, URINE 0 SEEN {/hpf} [...] (Normal) CLARITY Clear (Normal) COLOR Yellow (Normal) 99-Wuk-24583:40 CBC W/Diff, Automated Comments: [facility] [address] [place], [place], [address] Absolute Lymph 1.74 {X10_3/ul} (Normal) Range: 0.83-4.51 [...] Range: 4.4-11.0 :40 Comprehensive Metabolic Profil Comments: [facility] [address] [place], [address] GAP 13 (Normal) Range: 5-15 CO2 27.0 [...] A.D.A. criteria.Please note revised GLUCOSE reference range vengwtiuz15/02/2018. 50-Qzd-84023:40 Lipase Comments: [facility] Rvoxxjgjgv6096 [address]. [place], [place], [address] LIPASE 114 U/L (Normal) Range: 73-393 88-Yim-618827:18 BNP,B-Type NATRIURETIC PEPTIDE Comments: [facility] Hbxwgucbva6101 [facility] [place], [place], [address] B-TYPE JUSTIN PEP 734.1 pg/mL (Abnormal) Range: 0-100 45-Clz-589974:18 CBC-Complete Blood Cnt No Diff Comments: [facility] Cxqhedbmjz7717 [facility] [place], [place], [address] MPV 10.4 fL (Normal) Range: 6.2-12.0 PLT [...] 4.6-6.2 WBC 7.2 K/mm3 (Normal) Range: 4.4-11.0 93-Okm-476311:18 Comprehensive Metabolic Profil Comments: 'TROP' Serial specimen #1, #2, #3, or #4: [facility] Llfspkjgja1445 [facility]. [place], [place], [address] GAP 10 (Normal) Range: 5-15 CO2 29.0 [...] A.D.A. criteria.Please note revised GLUCOSE reference range jwrnxulav53/02/2018. 65-Hxi-812716:18 KEPPRA (LEVETIRACETAM) Comments: [facility] (refer to report for specific site)refer to report for address and phone number TANNER Comments: TEST RESULT LIMITSLevetiracetam (Keppra), SLevetiracetam, S 29.6 ug/mL 10.0 - 40.0 TESTING PERFO (Normal) RMED AT [facility]. ORIGINAL REPORT ON FILE IN LAB CONTAINS ADDITIONAL TEST SITE INFORMATION. 98-Mpj-758190:18 Thyroid Stim Hormone (TSH) Comments: 'TROP' Serial specimen #1, #2, #3, or #4: [address] [place] [address] Vkvsqmmgth8659 [address]. [place], [place], [address] TSH 2.73 {uIU/mL} (Normal) Range: 0.358-3.74 36-Kwv-990514:18 Troponin-I Comments: 'TROP' Serial specimen #1, #2, #3, or #4: [address] [place] [address] Yclabryvwh0697 [address] [place], [place], [address] TROPONIN-I 0.027 ng/mL (Normal) Comments: TROPONIN-I EXPECTED VALUES <0.045 Negative 0.045 - 0.590 Consistent with Cardiac Damage > OR = 0.600 Critical Value Not every elevated troponin is indicative of IA. T hesevalues should be used with clinical judgement in examiningthe patient's clinical picture for diagnosis. To establisha diagnosis of IA versus myocardial injury, there must be ademonstrated rise and/ or fall in the troponin values, inaddition to ischemic symptoms, EKG changes, new regionalwall motion abnormality, and/or angiographical evidence. PLEASE NOTE: REFERENCE RANGES EDITED 03/11/1810-Sep-201877-Ewp-563226:59 Metabolic Panel, Basic Comments: PATIENT NOT FASTINGPERFORMED BY: [facility]CoHealth[facility] RiverRjtfhb7431 [facility] [id number] (68271) Calcium 9.0 mg/dL (Normal) Range: 8.6-10.2 Carbon [...] 8-27 Glucose 177 mg/dL (Abnormal) Range: 65-99 03-Iib-817921:06 Lipid Profile Comments: [facility] Ifyuxsiefh3625 [place], [address] VLDL 20 mg/dL (Normal) Range: 5-40 LDL [...] 200-240 mg/dL Borderline >240 mg/dL High Risk 18-Xjy-934185:06 Liver Profile Comments: [facility] Lzzzjhiuty8408 [address]. [place], [place], [address] D BILI 0.35 mg/dL (Abnormal) Range: 0.00-0.30 T BILI 0.90 mg/dL (Normal) Range: 0.20-1.00 ALT 26 U/L (Normal) Range: 16-61 ALK P 158 U/L (Abnormal) Range: 45-117 AST 27 U/L (Normal) Range: 15-37 GLOB 4.8 g/dL (Abnormal) Range: 2.2-4.2 ALB 3.4 g/dL (Normal) Range: 3.2-5.0 T PROT 8.2 g/dL (Normal) Range: 6.4-8.2 09-Bub-02582:25 Tanner (16130) Comments: PATIENT WAS FASTINGPERFORMED BY: CB [facility] Airnop5493 [facility] [id number] BY: BN [facility] [address] [id number] Levetiracetam, S 41.3 ug/mL (Abnormal) Range: 10.0-40.0 44-Fnj-85962:25 METABOLIC PANEL, BASIC Comments: PATIENT WAS FASTINGPERFORMED BY: [place] 3110870 [facility] [id number] BY: [facility]1447 [facility] [id number] (73306) Calcium 9.0 mg/dL (Normal) Range: 8.6-10.2 Carbon [...] 8-27 Glucose 171 mg/dL (Abnormal) Range: 65-99 93-Hwl-21444:25 Platelet Count, Citrated Comments: PATIENT WAS FASTINGPERFORMED BY: MingglDouglas Ville 6841570 [facility] [id number] BY: [facility]1447 [facility] [id number] (15290) Plt Count, Citrated Bld 119 {X10E3/uL} (Abnormal) Range: 150-379 51-Izt-929019:54 HGB A1C (38722) Comments: PATIENT NOT FASTINGPERFORMED BY: [place] 3110870 [facility] [id number] Hemoglobin A1c 9.0 % (Abnormal) Range: 4.8-5.6 Comments: . Prediabetes: 5.7 - 6.4 Diabetes: >6.4 Glycemic control for adults with diabetes: <7.0 43-Gwc-332922:54 T4, FREE (THYROXINE) (83670) Comments: PATIENT NOT FASTINGPERFORMED BY: [address] [id number] T4,Free(Direct) 1.15 ng/dL (Normal) Range: 0.82-1.77 23-Hhv-349835:54 TSH (47091) Comments: PATIENT NOT FASTINGPERFORMED BY: [facility] Nwsmey5847 [facility] [id number]; appt 08/19 TSH 2.130 {uIU/mL} (Normal) Range: 0.450-4.500 22-Drs-573342:20 Rapid Strep Test, Office (50342) Rapid Strep Test, Office Negative (Normal) 27-Pff-496798:46 Metabolic Panel, Basic Comments: PATIENT NOT FASTINGPERFORMED BY: CB [facility] Yjwxzd7433 [facility] [id number]; fu today DB (00377) Calcium 9.1 mg/dL (Normal) Range: 8.6-10.2 Carbon [...] 8-27 Glucose 227 mg/dL (Abnormal) Range: 65-99 9-Yqw-313204:53 Basic Metabolic Profile (BMP) Comments: [facility] Motwsvksmn7932 [place], [address] GAP 12 (Normal) Range: 5-15 CO2 27.0 [...] A.D.A. criteria.Please note revised GLUCOSE reference range zmexmuzdw63/02/2018. 5-Nsy-270398:53 Magnesium Comments: [facility] Bpuoascyna1712 [place], [address] MG 1.8 mg/dL (Normal) Range: 1.6-2.6 12-Oxa-568618:10 Basic Metabolic Panel (8) Comments: PATIENT NOT FASTINGPERFORMED BY: [employer] [facility] [id number] BY: [employer] [id number] Calcium 9.3 mg/dL (Normal) Range: 8.6-10.2 Carbon [...] 8-27 Glucose 325 mg/dL (Abnormal) Range: 65-99 96-Rgk-165554:10 Levetiracetam (Keppra), S Comments: PATIENT NOT FASTINGPERFORMED BY: [employer] [facility] [id number] BY: [address] [id number] Levetiracetam, S 66.3 ug/mL (Abnormal) Range: 10.0-40.0 90-Kqv-116996:10 Platelet Count on Comments: PATIENT NOT FASTINGPERFORMED BY: [address] [id number] BY: [address] [id number] Citrated Bld Plt Count, Citrated 85 {X10E3/uL} Range: 150-379 Bld (Abnormal) Comments: Platelet count verified by examination of peripheral blood smear. FDP, Plasma 5 ug/mL (Abnormal) Comments: PATIENT NOT FASTINGPERFORMED BY: [place] 3110870 [facility] [id number] BY: [address] [id number] :49 LDH 220 [iU]/L (Normal) Comments: PATIENT NOT FASTINGPERFORMED BY: [address] [id number] BY: [address] [id number] :49 Range: 121-224 :49 Methylmalonic Acid, Serum Comments: PATIENT NOT FASTINGPERFORMED BY: [address] [id number] BY: [address] [id number] Disclaimer: SPRCS (Normal) Comments: This test was developed and its performance characteristicsdetermined by [employer]. It has not been cleared or approvedby the Food and Drug Administration. Methylmalonic Acid, Serum 195 nmol/L (Normal) Range: 0-378 :49 Platelet Count on Comments: PATIENT NOT FASTINGPERFORMED BY: [address] [id number] BY: BN [facility] [id number] Citrated Bld Plt Count, Citrated 108 {X10E3/uL} Range: 150-379 Bld (Abnormal) Vitamin B12 780 pg/mL (Normal) Comments: PATIENT NOT FASTINGPERFORMED BY: MingglCoHealthSouth - [facility] Toms RiverTyuswo5092 [facility] [id number] BY: [employer] [id number] :49 Range: 232-1245 0-Nsj-677658:49 Renal function Panel Comments: standing order q 3 months; PATIENT NOT FASTINGPERFORMED BY: [employer]70 [facility] [id number] BY: [employer] [id number] (48738) Albumin 4.3 g/dL (Normal) Range: 3.5-4.8 Phosphorus [...] 8-27 Glucose 244 mg/dL (Abnormal) Range: 65-99 26-Ryk-007514:48 Urinalysis, Office (72171) UA - LEUKOCYTE ESTERASE Trace (Normal) UA - NITRITE Negative (Normal) URINE UROBILINGN CASPER TIMED 2 mg/dL (Normal) UA - PROTEIN Trace mg/dL (Normal) UA - PH 6 (Abnormal) UA - BLOOD Negative (Normal) UA - SPECIFIC GRAVITY 1.020 (Normal) UA - KETONES Negative mg/dL (Normal) UA - BILIRUBIN Negative (Normal) UA - GLUCOSE Negative (Normal) 47-Obm-768522:47 CBC W/Diff, Automated Comments: Order Date: 04/25/18Order Info: [id number] - CBCDWACMC [facility] System Xxgzhgmjvx1029 [address] [place], [place], [address] Absolute Lymph 1.07 {X10_3/ul} (Normal) Range: 0.83-4.51 [...] 4.6-6.2 WBC 7.9 K/mm3 (Normal) Range: 4.4-11.0 52-Oje-438921:47 Renal Profile Comments: Order Date: 04/25/18Order Info: 0790- 1 - RENALOrder Info: [id number] - TROPOrder Info: [id number] - MGOrder Info: 3016-3 - TSHOrder Info: 3024-7 - T4F'TROP' Serial specimen #1, #2, #3, or #4: [address] [place] [address] Nv[address]ra6458 [address]oyal. [place], [place], [address] CO2 27.0 mmol/L (Normal) Range: 21.0-32.0 CL [...] A.D.A. criteria.Please note revised GLUCOSE reference range gkhjjfyzh57/02/2018. 98-Ygi-574170:47 Thyroid Stim Hormone (TSH) Comments: Order Date: 04/25/18Order Info: 0790-1 - RENALOrder Info: [id number] - TROPOrder Info: 36425-9 - MGOrder Info: 3016-3 - TSHOrder Info: 3024-7 - T4F'TROP' Serial specimen #1, #2, #3, or #4: [address] [place] [address] Rqvrcrjkrx9545 [address] [place], [place], [address] TSH 2.08 {uIU/mL} (Normal) Range: 0.358-3.74 76-Adv-641781:47 Troponin-I Comments: Order Date: 04/25/18Order Info: 0790-1 - RENALOrder Info: [id number] - TROPOrder Info: [id number] - MGOrder Info: 3 - TSHOrder Info: 3024-7 - T4F'TROP' Serial specimen #1, #2, #3, or #4: [address] [place] [address] Bpkvvnvyuu3417 [address]. [place], [place], [address] TROPONIN-I < 0.015 ng/mL (Normal) Comments: TROPONIN-I EXPECTED VALUES <0.045 Negative 0.045 - 0.590 Consistent with Cardiac Damage > OR = 0.600 Critical Value Not every elevated troponin is indicative of IA. T hesevalues should be used with clinical judgement in examiningthe patient's clinical picture for diagnosis. To establisha diagnosis of IA versus myocardial injury, there must be ademonstrated rise and/ or fall in the troponin values, inaddition to ischemic symptoms, EKG changes, new regionalwall motion abnormality, and/or angiographical evidence. PLEASE NOTE: REFERENCE RANGES EDITED 03/11/1825-Apr-201842-Tlj-049027:47 T4, FREE (THYROXINE) (98123) Comments: Order Date: 04/25/18Order Info: 0790 - RENALOrder Info: [id number] - TROPOrder Info: 31398-1 - MGOrder Info: 3 - TSHOrder Info: 3024-7 - T4F'TROP' Serial specimen #1, #2, #3, or #4: [address] [place] [address] [place], [place], [address] T4 FREE DIRECT 1.08 ng/dL (Normal) Range: 0.76-1.46 93-Gco-606267:47 Magnesium (29085) Comments: Order Date: 04/25/18Order Info: 0790- 1 - RENALOrder Info: [id number] - TROPOrder Info: [id number] - MGOrder Info: 63 - TSHOrder Info: 3024-7 - T4F'TROP' Serial specimen #1, #2, #3, or #4: [address] [place] [address] Bizewyeais2820 [place], [address] MG 1.9 mg/dL (Normal) Range: 1.6-2.6 34-Rrd-738698:00 CBC WITH MANUAL DIFF (24550) Comments: standing order q 3 months; PATIENT NOT FASTINGPERFORMED BY: SLAVA [employer]70 [facility] [id number] Immature Grans (Abs) 0.0 {x10E3/uL} (Normal) Range: [...] 4.14-5.80 WBC 9.0 {x10E3/uL} (Normal) Range: 3.4-10.8 56-Pzc-198707:00 MAGNESIUM (48729) Comments: standing order q 3 months; PATIENT NOT FASTINGPERFORMED BY: [employer] Jaqqqp8763 [facility] [id number] Magnesium 1.7 mg/dL (Normal) Range: 1.6-2.3 01-Igs-009978:00 PARATHORMONE (58637) Comments: standing order q 3 months; PATIENT NOT FASTINGPERFORMED BY: MingglEaton Rapids Medical Center6[address] EffRx Pharmaceuticalsblin [place] [id number] PTH, Intact 73 pg/mL (Abnormal) Range: 15-65 31-Blk-958265:00 Renal function Panel (66026) Comments: standing order q 3 months; PATIENT NOT FASTINGPERFORMED BY: MingglEaton Rapids Medical Center6370 [facility] [id number] Albumin 4.1 g/dL (Normal) Range: 3.5-4.8 Phosphorus [...] 8-27 Glucose 276 mg/dL (Abnormal) Range: 65-99 57-Nbc-823637:29 Renal function Panel (91249) Comments: PATIENT WAS FASTINGPERFORMED BY: [facility] Rgcwmn9623 [facility] [place] [id number]; fu 6-28 Albumin 4.4 g/dL (Normal) Range: [...] 8-27 Glucose 198 mg/dL (Abnormal) Range: 65-99 5-Lnj-556451:18 HgA1C , Office (61317) HgA1C , Office 7.0 % (Normal) Range: 4.6 - 7.1 :46 Basic Metabolic Profile Comments: Comments: Renal InsufficiencyComments: Renal InsufficiencyWACMC Healthcare System Dbgbcpmxkf3507 [place], [place], [address] (VWE) GAP 13 (Normal) Range: 5-15 CO2 24.0 [...] A.D.A. criteria.Please note revised GLUCOSE reference range omqcoagjk95/02/2018. :46 Lipid Profile Comments: Comments: Renal InsufficiencyComments: Ren[facility] InsufficiencyAd[facility] Rvaiuvnyfp9403 [address] [place], [place], [address] VLDL 41 mg/dL (Abnormal) Range: 5-40 LDL [...] Liver Profile Comments: Comments: Renal InsufficiencyComments: Renal InsufficiencyWACMC Healthcare System Ygkrecgpcm4478 [place], [address] D BILI 0.16 mg/dL (Normal) Range: 0.00-0.30 T BILI 0.50 mg/dL (Normal) Range: 0.20-1.00 ALT 25 U/L (Normal) Range: 16-61 ALK P 104 U/L (Normal) Range: 45-117 AST 29 U/L (Normal) Range: 15-37 GLOB 4.0 g/dL (Normal) Range: 2.2-4.2 ALB 3.5 g/dL (Normal) Range: 3.2-5.0 T PROT 7.5 g/dL (Normal) Range: 6.4-8.2 1-Wvu-118855:37 Magnesium (25824) Comments: PATIENT NOT FASTINGPERFORMED BY: MingglCo Lrvndd9060 [facility] [id number] Magnesium 2.1 mg/dL (Normal) Range: 1.6-2.3 3-Mlm-076772:37 Metabolic Panel, Basic (99522) Comments: PATIENT NOT FASTINGPERFORMED BY: [facility] [employer]Up [facility] [id number] Calcium 9.0 mg/dL (Normal) Range: 8.6-10.2 Carbon [...] 8-27 Glucose 284 mg/dL (Abnormal) Range: 65-99 84-Lli-296917:57 Bedside Glucose Comments: [facility] LaboratoryPoint [facility]ook[address] [place], [place] [address] BEDSIDE GLU 381 mg/dL (Abnormal) Range: 70-110 Comments: MANAGEMENT OF PATIENT CARE PER NURSING PROTOCOL 81-Vba-930853:50 Acetone Serum Comments: [facility] Sslvwkkpww0955 [place], [address] ACETONE SERUM NEGATIVE (Normal) 07-Xjg-954003:50 Basic Metabolic Profile (BMP) Comments: 'TROP' Serial specimen #1, #2, #3, or #4: 1WAC[facility] Eokhiafsbb9326 [address] GoyalDusty [place], [place], [address] GAP 9 (Normal) Range: 5-15 CO2 30.0 [...] A.D.A. criteria.Please note revised GLUCOSE reference range mulrwhkku49/02/2018. 37-Egh-023872:50 BNP,B-Type NATRIURETIC PEPTIDE Comments: [facility] Em[address] [place], [place], [address] B-TYPE JUSTIN PEP 386.1 pg/mL (Abnormal) Range: 0-100 48-Sbz-608428:50 CBC W/Diff, Automated Comments: [facility] Itolwcehdl[address] [place], [place], [address] Absolute Lymph 1.11 {X10_3/ul} (Normal) Range: 0.83-4.51 [...] 4.6-6.2 WBC 9.7 K/mm3 (Normal) Range: 4.4-11.0 26-Jvc-567399:50 Troponin-I Comments: 'TROP' Serial specimen #1, #2, #3, or #4: [address] [place] [address] Suvvjeczax1683 [place], [address] TROPONIN-I 0.03 ng/mL (Normal) Comments: TROPONIN-I EXPECTED VALUES <0.05 NEGATIVE 0.06 - 0.59 AT RISK OF IA > OR = 0.60 SUGGEST IA 43-Cxz-344124:51 Renal Profile Comments: Order Date: 01/18/18Order Info: 0790- 1 - RENALOrder Info: [id number] - TROP'TROP' Serial specimen #1, #2, #3, or #4: [address] [place] [address] Rvifmsixva7935 [place], [phone] CO2 29.0 mmol/L (Normal) Range: 21.0-32.0 CL [...] A.D.A. criteria.Please note revised GLUCOSE reference range bpxxtoisk02/02/2018. 10-Ylx-385212:51 Troponin-I Comments: Order Date: 01/18/18Order Info: 0790-1 - RENALOrder Info: [id number] - TROP'TROP' Serial specimen #1, #2, #3, or #4: 1W[facility] Hhlcicxqbk6175 [address] [place], [place], [phone] TROPONIN-I 0.02 ng/mL (Normal) Comments: TROPONIN-I EXPECTED VALUES <0.05 NEGATIVE 0.06 - 0.59 AT RISK OF IA > OR = 0.60 SUGGEST IA 65-Xvj-160392:16 HgA1C , Office (78677) HgA1C , Office 7.7 % (Abnormal) Range: 4.6 - 7.1 61-Zuf-343026:47 Basic Metabolic Profile (BMP) Comments: CALL RESULTS TO [phone] County Regional Medical Center Rpgpsiyjce8950 [address] [place], [place], [address] GAP 8 (Normal) Range: 5-15 CO2 30.0 [...] 200 mg/dLsuggests DIABETES MELLITUS per A.D.A. criteria. 06-Mot-573927:47 BNP,B-Type NATRIURETIC PEPTIDE Comments: CALL RESULTS TO [phone] County Regional Medical Center Rtxfkqbugp9046 [place], [address] B-TYPE JUSTIN PEP 580.2 pg/mL (Abnormal) Range: 0-100 50-Gmc-272428:47 CBC W/Diff, Automated Comments: CALL RESULTS TO [phone] County Regional Medical Center Iegmmeappp8233 [place], [address] Absolute Lymph 0.67 {X10_3/ul} (Abnormal) [...] 4.6-6.2 WBC 5.6 K/mm3 (Normal) Range: 4.4-11.0 43-Ygy-451879:47 Thyroid Stim Hormone (TSH) Comments: CALL RESULTS TO [phone] County Regional Medical Center Tnfzcahdox3966 [address] [place], [place], [address] TSH 2.08 {uIU/mL} (Normal) Range: 0.358-3.74 45-Onn-85367:51 CBC, Platelets & Auto Diff Comments: PATIENT WAS FASTINGPERFORMED BY: [facility] Rsyics9159 [facility] [id number] (53172) Immature Grans (Abs) 0.0 {x10E3/uL} (Normal) Range: [...] 4.14-5.80 WBC 8.6 {x10E3/uL} (Normal) Range: 3.4-10.8 62-Pdu-81060:51 Metabolic Panel, Comprehensive Comments: PATIENT WAS FASTINGPERFORMED BY: LabCoHealthSouth - [facility] Toms RiverOgffhk4778 [facility] [id number] (64667) ALT (SGPT) 16 [iU]/L (Normal) Range: 0-44 [...] 8-27 Glucose 122 mg/dL (Abnormal) Range: 65-99 80-Wfe-90399:51 TSH (28200) Comments: PATIENT WAS FASTINGPERFORMED BY: [facility] [address]peac[address] [facility] Hospitalbl[facility] [place] [id number] TSH 5.070 {uIU/mL} (Abnormal) Range: 0.450-4.500 :51 CALCIFIDIOL (97946) VIT D 25 Comments: PATIENT WAS FASTINGPERFORMED BY: LabSsm [facility] Rrjkld6775 [facility] [place] [id number] Vitamin D, 25-Hydroxy 27.8 ng/mL (Abnormal) Range: 30.0-100.0 Comments: Vitamin D deficiency has been defined by the Ruffin ofGuernsey Memorial Hospitalcine and an Endocrine Society practice guideline as alevel of serum 25-OH vitamin D less than 20 ng/mL (1,2).The Endocrine Society went on to further define vitamin Dinsufficiency as a level between 21 and 29 ng/mL (2).1. IOM (Ruffin of Medicine). 2010. Dietary reference intakes for calcium and D. [place]: The National Academies Press.2. Yanna MF, Maral NC, Xander EDGAR, et al. Evaluation, treatment, and prevention of vitamin D deficiency: an Endocrine Society clinical practice guideline. JCEM. 2010; 96(7):1911-30. :51 Magnesium (86594) Comments: PATIENT WAS FASTINGPERFORMED BY: MingglCo Uostki6259 [facility] [place] [id number] Magnesium 1.9 mg/dL (Normal) Range: 1.6-2.3 :43 HgA1C , Office (47151) HgA1C , Office 7.3 % (Abnormal) Range: 4.6 - 7.1 :27 MICROALBUMIN: CREATININE Comments: PATIENT NOT FASTINGPERFORMED BY: [facility] Pqucqb4783 [facility] [id number] Information: NURSE DRAW RATIO (97216) AND (86496) Microalb/Creat Ratio 89.4 {mg/g_creat} (Abnormal) Range: 0.0-30.0 Microalbumin, Urine 142.2 ug/mL (Normal) Creatinine, Urine 159.1 mg/dL (Normal) 31-Aug-20178:27 PARATHORMONE (68896) Comments: PATIENT NOT FASTINGPERFORMED BY: [employer] Gaobom2614 [facility] [id number] PTH, Intact 53 pg/mL (Normal) Range: 15-65 02-Rdb-534296:15 TSH (64707) Comments: PATIENT NOT FASTINGPERFORMED BY: MingglCorp Tkgobe9967 [facility] [id number] TSH 4.310 {uIU/mL} (Normal) Range: 0.450-4.500 99-Nkz-943313:15 METABOLIC PANEL, COMPREHENSIVE Comments: PATIENT NOT FASTINGPERFORMED BY: [employer]70 [facility] [id number] (43197) ALT (SGPT) 17 [iU]/L (Normal) Range: 0-44 [...] Glucose, Serum 231 mg/dL (Abnormal) Range: 65-99 95-Uwr-318974:15 CBC with auto diff (51728) Comments: PATIENT NOT FASTINGPERFORMED BY: [employer] Qasrow6440 [address] [facility] [id number] Immature Grans (Abs) 0.0 {x10E3/uL} (Normal) Range: [...] 4.14-5.80 WBC 7.7 {x10E3/uL} (Normal) Range: 3.4-10.8 84-Lph-590043:15 CALCIFIDIOL (36926) VIT D 25 Comments: PATIENT NOT FASTINGPERFORMED BY: LabCoHealthSouth - [facility] Toms RiverVfqeco2817 [facility] [id number] Vitamin D, 25-Hydroxy 28.8 ng/mL (Abnormal) Range: 30.0-100.0 Comments: Vitamin D deficiency has been defined by the Ruffin ofMedicine and an Endocrine Society practice guideline as alevel of serum 25-OH vitamin D less than 20 ng/mL (1,2).The Endocrine Society went on to further define vitamin Dinsufficiency as a level between 21 and 29 ng/mL (2).1. IOM (Ruffin of Medicine). 2010. Dietary reference intakes for calcium and D. [place]: The National Academies Press.2. Yanna MF, Maral CALDERON, Xander EDGAR, et al. Evaluation, treatment, and prevention of vitamin D deficiency: an Endocrine Society clinical practice guideline. JCEM. 2010; 96(7):1911-30. 79-Hvq-932811:34 Blood Glucose , Office (39074) Blood Glucose , Office 221 (Normal) :34 HgA1C , Office (21304) HgA1C , Office 6.3 % (Normal) Range: 4.6 - 7.1 :10 CBC W/Diff, Automated Comments: [facility] [address]drjvurjzo[address] [place], [place], [address] Absolute Lymph 1.60 {X10_3/ul} (Normal) Range: 0.83-4.51 [...] 4.6-6.2 WBC 7.5 K/mm3 (Normal) Range: 4.4-11.0 7-Myi-059758:10 Comprehensive Metabolic Profil Comments: [facility] Usvtjpfurm[address] [place], [place], [address] GAP 8 (Normal) Range: 5-15 CO2 29.0 [...] 200 mg/dLsuggests DIABETES MELLITUS per A.D.A. criteria. 3-Ban-569272:10 Prothrombin Time w/INR Comments: [facility] [address] [place], [place], [address] INR 1.0 (Normal) PROTIME 13.1 s (Normal) Range: 11.7-14.9 :09 Bedside Glucose Comments: [facility] LaboratoryPoint of Hlhp[address] [place], [place] [address] BEDSIDE GLU 249 mg/dL (Abnormal) Range: 70-110 Comments: MANAGEMENT OF PATIENT CARE PER NURSING PROTOCOL 29-Odk-99171:55 Magnesium (38479) Comments: PATIENT WAS FASTINGPERFORMED BY: Tatango7 [facility] [id number] BY: [employer] [facility] [id number] Magnesium, Serum 2.1 mg/dL (Normal) Range: 1.6-2.3 82-Ufq-94490:55 METABOLIC PANEL, Comments: PATIENT WAS FASTINGPERFORMED BY: [employer]ibby [facility] [id number] BY: [employer]5709 [facility] [id number] COMPREHENSIVE (69860) ALT (SGPT) 13 [iU]/L (Normal) Range: 0-44 [...] Glucose, Serum 120 mg/dL (Abnormal) Range: 65-99 17-Ruv-03941:55 LIPOPROTEIN, BLD, BY NMR Comments: PATIENT WAS FASTINGPERFORMED BY: BN [facility] [address] [id number] BY: CB [facility] [id number] [facility] [id number] ([id number]) LP-IR Score <25 (Normal) Comments: INSULIN RESISTANCE MARKER <--Insulin Sensitive Insulin Resistant--> Percentile in Reference PopulationInsulin Resistance ScoreLP-IR Score Low 25th 50th 75th High <27 27 45 63 >63LP-IR Score is inaccurate if patient is non-fasting. .The LP-IR score is a laboratory developed i [facility] that has beenassociated with insulin [...] 1600 - 2000 Very High > 2000 80-Uwg-04664:55 CALCIFIDIOL (05174) VIT D Comments: PATIENT WAS FASTINGPERFORMED BY: [employer] [id number] BY: Oree [employer]70 [facility] [id number] Vitamin D, 25-Hydroxy 35.2 ng/mL (Normal) Range: 30.0-100.0 Comments: Vitamin D deficiency has been defined by the Ruffin ofGu[facility] Hospitalcine and an Endocrine Society practice guideline as alevel of serum 25-OH vitamin D less than 20 ng/mL (1,2).The Endocrine Society went on to further define vitamin Dinsufficiency as a level between 21 and 29 ng/mL (2).1. IOM ([place]uffin of Medicine). 2010. Dietary reference intakes for calcium and D. [place]: The National Academies Press.2. Yanna MF, Maral CALDERON, Xander EDGAR, et al. Evaluation, treatment, and prevention of vitamin D deficiency: an Endocrine Society clinical practice guideline. JCEM. 2010; 96(7):1911-30. 93-Ojb-39548:55 PSA (Prostate Specific Comments: PATIENT WAS FASTINGPERFORMED BY: hurleypalmerflatt Yardhmbjmu1690 [facility] [id number] BY: Nortislin6370 [facility] [id number] Antigen), Screening (85720) Prostate Specific Ag, 1.2 ng/mL (Normal) Range: 0.0-4.0 Serum Comments: Erik ECLIA methodology. .According to the [place] [employer], Serum PSA shoulddecrease and remain at undetectable levels after radicalprostatectomy. The AUA defines biochemical recurrence as an initialPSA value 0.2 ng/mL or greater followed by a subsequent confirmatoryPSA value 0.2 ng/mL or greater.Values obtained with d ifferent assay methods or kits cannot be usedinterchangeably. Results cannot be interpreted as absolute evidenceof the presence or absence of malignant disease. 39-Lea-334136:38 Blood Glucose , Office (82925) Blood Glucose , Office 160 (Normal) 76-Wpz-228323:00 CBC WITH MANUAL DIFF Comments: PATIENT NOT FASTINGPERFORMED BY: CB [facility] Myewrk3001 [facility] [id number] BY: BN [facility] Pbesjizefg2435 [facility] [id number] Inf ormation: NURSE DRAW (62439) Immature Grans (Abs) 0.0 {x10E3/uL} (Normal) Range: [...] 4.14-5.80 WBC 5.9 {x10E3/uL} (Normal) Range: 3.4-10.8 28-Fto-915569:00 Vitamin B-12 Comments: PATIENT NOT FASTINGPERFORMED BY: EndoDex Hbywvi3573 [facility] [id number] BY: [employer] [id number] (cyanocobalamin) (59087) Vitamin B12 529 pg/mL (Normal) Range: 211-946 88-Dqe-293056:00 Methymalonic Acid, Serum Comments: PATIENT NOT FASTINGPERFORMED BY: [employer] [facility] [id number] BY: CoDa Therapeuticston1447 [facility] [id number] (41974) Methylmalonic Acid, Serum 284 nmol/L (Normal) Range: 0-378 19-Cph-884249:59 ANCA-C (ANTI NEUTROPHIL Comments: copy to Dr. [phone] all these now; PATIENT WAS FASTINGPERFORMED BY: [employer] [id number] BY: EndoDex Isjgmb9278 [facility] x [facility] [id number] CYTOPLASMIC ANTIBODY) Atypical pANCA <1:20 {titer} Comments: [...] follow up testing ofpositive sera with both NM-3 and MPO-ANCA enzyme immunoassays. Asmany as 5% serum samp les are positive only by EIA.Ref. AM J Clin Pathol 1999;111:507-513. Cytoplasmic (C-ANCA) <1:20 {titer} (Normal) Antiproteinase 3 (NM-3) Abs <3.5 U/mL (Normal) Range: 0.0-3.5 Antimyeloperoxidase (MPO) Abs <9.0 U/mL (Normal) Range: 0.0-9.0 80-Paf-855052:59 Renal function Panel Comments: now; PATIENT WAS FASTINGPERFORMED BY: Zibby [facility] [id number] BY: Equinext [facility] [id number] (67204) Albumin, Serum 4.1 g/dL (Normal) Range: 3.5-4.8 [...] Glucose, Serum 166 mg/dL (Abnormal) Range: 65-99 94-Hbj-224033:59 LIPOPROTEIN, BLD, BY NMR Comments: now; PATIENT WAS FASTINGPERFORMED BY: [employer] Fhhzocvtji4973 [facility] [id number] BY: Oracle Youth LevelUp [facility] [id number] (54164) LP-IR Score 39 (Normal) Comments: INSULIN RESISTANCE MARKER <--Insulin Sensitive Insulin Resistant--> Percentile in Reference PopulationInsulin Resistance ScoreLP-IR Score Low 25th 50th 75th High <27 27 45 63 >63LP-IR Score is inaccurate if patient is non-fasting. .The LP-IR score is a laboratory developed i [facility] that has beenassociated with insulin [...] were developed and their performance characteristicsdetermined by [employer]. These assays have not been cleared by [...] 1600 - 2000 Very High > 2000 05-Vcx-685906:59 TSH (79053) Comments: PATIENT WAS FASTINGPERFORMED BY: [employer]IS Group[address] [id number] BY: KIS GroupCrownpoint Healthcare FacilityJhbjba8498 Sweeney RoadDublin [place] [id number] TSH 2.960 {uIU/mL} (Normal) Range: 0.450-4.500 72-Ceq-357907:59 COMPLEMENT C4 (51754) Comments: PATIENT WAS FASTINGPERFORMED BY: [employer] Group[address] [id number] BY: KIS GroupCrownpoint Healthcare FacilityEgzgro1608 Sweeney RoadDuin [place] [id number] Complement C4, Serum 32 mg/dL (Normal) Range: 14-44 18-Rre-012414:59 COMPLEMENT C3 (05652) Comments: PATIENT WAS FASTINGPERFORMED BY: [employer] Group[address] [id number] BY: KIS GroupCrownpoint Healthcare FacilityYvzegm[address] [facility] Centerin [place] [id number] Complement C3, Serum 137 mg/dL (Normal) Range: 82-167 50-Sdh-298666:59 MICROALBUMIN: CREATININE Comments: PATIENT WAS FASTINGPERFORMED BY: [employer] Group[address] [id number] BY: KIS GroupHealthSouth - Rehabilitation Hospital of Toms RiverOlihpd[address] [facility] Centerin [place] [id number] RATIO (58011) AND (36935) Microalb/Creat Ratio 118.3 {mg/g_creat} (Abnormal) Range: 0.0-30.0 Microalbumin, Urine 52.3 ug/mL (Normal) Creatinine, Urine 44.2 mg/dL (Normal) 23-Eax-793792:59 SPEP (93113) Comments: PATIENT WAS FASTINGPERFORMED BY: [employer] Group[address] [id number] BY: LabEaton Rapids Medical Center6370 [facility] [id number] Please note: SPRCS (Normal) Comments: Protein electrophoresis scan will follow via computer, mail, orcourier delivery. A/G Ratio 1.2 (Normal) Range: 0.7-1.7 Globulin, Total 3.1 g/dL (Normal) Range: 2.2-3.9 M-Maxime Not Observed g/dL (Normal) Gamma Globulin 0.9 g/dL (Normal) Range: 0.4-1.8 Beta Globulin 1.1 g/dL (Normal) Range: 0.7-1.3 Gdkyt-9-Ualknwja 0.9 g/dL (Normal) Range: 0.4-1.0 Bewuf-6-Nuorzywm 0.2 g/dL (Normal) Range: 0.0-0.4 Albumin 3.7 g/dL (Normal) Range: 2.9-4.4 Protein, Total, Serum 6.8 g/dL (Normal) Range: 6.0-8.5 98-Vae-156557:59 DNA ANTIBODY-NATV/DBL ST Comments: PATIENT WAS FASTINGPERFORMED BY: LabCo[address] [id number] BY: LabCoHealthSouth - Rehabilitation Hospital of Toms RiverQzcmqe5067 [facility] [id number] (76268) test code 651675 Anti-DNA (DS) Ab Qn <1 {IU/mL} (Normal) Range: 0-9 Comments: Negative <5 Equivocal 5 - 9 Positive >9 94-Zdc-364070:28 Alcohol, Blood (Medical)-Serum Comments: [facility] [address] [place], [place], [address] SERUM ETOH < 3.0 mg/dL (Normal) Comments: The serum:whole blood ethanol ratio is approximately 1.14and varies slightly with hematocrit.Medical Alcohol reference interval and critical value innon-tolerant individuals; 50 - 100 Impairment 100 Intoxication 100 - 250 Severe Poisoning 250 - 400 Deep/possible fatal coma 86-Nxi-982414:28 CBC W/Diff, Automated Comments: [facility] [address]pie[address]bd[address] [place], [address] Absolute Lymph 1.85 {X10_3/ul} (Normal) [...] 4.6-6.2 WBC 7.1 K/mm3 (Normal) Range: 4.4-11.0 41-Nca-294374:28 Comprehensive Metabolic Profil Comments: [facility] Z[address]iasoqbu[address] G[address] [place], [place], [address] GAP 10 (Normal) Range: 5-15 CO2 29.0 [...] 126 mg/dLsuggests DIABETES MELLITUS per A.D.A. criteria. 23-Zac-711084:28 Troponin-I Comments: 'TROP' Serial specimen #1, #2, #3, or #4: [address] [place] [address] Iittdusead8957 [place], [place], [address] TROPONIN-I 0.03 ng/mL (Normal) Comments: TROPONIN-I EXPECTED VALUES <0.05 NEGATIVE 0.06 - 0.59 AT RISK OF IA > OR = 0.60 SUGGEST IA 31-Vnv-504082:08 HgA1C , Office (64558) HgA1C , Office 6.8 % (Normal) Range: 4.6 - 7.1 :59 Metabolic Panel, Basic (05218) Comments: recheck in one week; PATIENT WAS FASTINGPERFORMED BY: LabCo Uimkbk9216 [facility] [id number] Calcium, Serum 8.5 mg/dL (Abnormal) Range: 8.6-10.2 [...] Glucose, Serum 136 mg/dL (Abnormal) Range: 65-99 50-Zxv-006833:20 CBC (Auto) (18825) Comments: PATIENT NOT FASTINGPERFORMED BY: Oohly [facility] [id number] Platelets 183 {x10E3/uL} (Normal) Range: 150-379 RDW 13.6 % (Normal) Range: 12.3-15.4 MCHC 34.8 g/dL (Normal) Range: 31.5-35.7 MCH 34.1 pg (Abnormal) Range: 26.6-33.0 MCV 98 fL (Abnormal) Range: 79-97 Hematocrit 40.5 % (Normal) Range: 37.5-51.0 Hemoglobin 14.1 g/dL (Normal) Range: 12.6-17.7 RBC 4.13 {x10E6/uL} (Abnormal) Range: 4.14-5.80 WBC 7.9 {x10E3/uL} (Normal) Range: 3.4-10.8 60-Uen-448247:20 Magnesium (37480) Comments: PATIENT NOT FASTINGPERFORMED BY: Oracle Youthrp Uyllcg8371 [facility] [id number] Magnesium, Serum 2.2 mg/dL (Normal) Range: 1.6-2.3 91-Kui-855022:20 Renal function Panel (47046) Comments: PATIENT NOT FASTINGPERFORMED BY: Forgame LabSellAnyCar.rurp Xpvdwv6563 [facility] [id number] Albumin, Serum 4.2 g/dL (Normal) Range: 3.5-4.8 [...] Glucose, Serum 266 mg/dL (Abnormal) Range: 65-99 93-Qym-762116:54 Basic Metabolic Profile (BMP) Comments: Order Date: 12/25/16Order Info: 0667-1 - *BMPOrder Info: 85327-2 - *MagnesiumOrder Date: 12/25/16Order Info: 10474-4 - *MagnesiumComments: Reason:[facility] [address] [place], [address] GAP 11 (Normal) Range: 5-15 CO2 30.0 [...] 200 mg/dLsuggests DIABETES MELLITUS per A.D.A. criteria. 18-Gus-312474:54 Magnesium Comments: Order Date: 12/25/16Order Info: 0667-1 - *BMPOrder Info: - *MagnesiumOrder Date: 12/25/16Order Info: - *MagnesiumComments: Reason:[facility] [address] [place], [place], [address](352) MG 2.0 mg/dL (Normal) Range: 1.8-2.4 81-Xnm-707336:35 Basic Metabolic Profile (BMP) Comments: Order Date: 12/18/16Order Info: 0667-1 - *BMPOrder Info: - *MagnesiumComments: For [place] episodeOrder Info: 3026-2 - *T4 (Total)Comments: Reason: For [place] episoeOrder Info: 3016-3 - *TSHComments: [place] son: For [place] episodeOrder Date: 12/18/16Order Info: 3016-3 - *TSHComments: Reason: For [place] episodeWACMC Healthcare System [address]umkcoonb[address] [place], [place], [address] GAP 12 (Normal) Range: 5-15 CO2 31.0 [...] 200 mg/dLsuggests DIABETES MELLITUS per A.D.A. criteria. 71-Mvq-247575:35 CBC-Complete Blood Cnt No Diff Comments: Order Date: 12/18/16Order Info: 3016-3 - *TSHComments: Reason: For [place] episodeAdams County Regional Medical Center [address]zglm[address] [place], [address] MPV 10.7 fL (Normal) Range: 6.2-12.0 PLT [...] 4.6-6.2 WBC 8.1 K/mm3 (Normal) Range: 4.4-11.0 49-Wfp-529652:35 Magnesium Comments: Order Date: 12/18/16Order Info: 0667-1 - *BMPOrder Info: 89733-1 - *MagnesiumComments: For [place] episodeOrder Info: 3026-2 - *T4 (Total)Comments: Reason: For [place] episoeOrder Info: 3016-3 - *TSHComments: [place] son: For [place] episodeOrder Date: 12/18/16Order Info: 3016-3 - *TSHComments: Reason: For [place] episodeAd[facility] County Regional Medical Center Y[address]kwkmlhg[address] [place], [address](265 MG 2.0 mg/dL (Normal) Range: 1.8-2.4 25-Kpu-792810:35 T4 Total, Thyroxin Comments: Order Date: 12/18/16Order Info: 06-1 - *BMPOrder Info: - *MagnesiumComments: For [place] episodeOrder Info: 3026-2 - *T4 (Total)Comments: Reason: For [place] episoeOrder Info: 3016-3 - *TSHC omments: Alicia son: For [place] episodeOrder Date: 12/18/16Order Info: 3016-3 - *TSHComments: Reason: For [place] episodeWACMC Healthcare System [address]verj[address] [place], [place], [address] T4 THYROXIN 11.3 ug/dL (Normal) Range: 4.5-12.1 16-Mxu-905736:35 Thyroid Stim Hormone (TSH) Comments: Order Date: 12/18/16Order Info: 67-1 - *BMPOrder Info: - *MagnesiumComments: For [place] episodeOrder Info: 3026-2 - *T4 (Total)Comments: Reason: For [place] episoeOrder Info: 3016-3 - *TSHComments: [place] son: For [place] episodeOrder Date: 12/18/16Order Info: 3016-3 - *TSHComments: Reason: For [place] episodeWACMC Healthcare System [address]vsgyyn[address] [place], [place], [address] TSH 0.86 {uIU/mL} (Normal) Range: 0.358-3.74 8-Qeo-741574:05 PSA (Prostate Specific Comments: PATIENT NOT FASTINGPERFORMED BY: [facility]6370 [facility] [id number] Information: [id number] NURSE DRAW Antigen), Screening (93598) Prostate Specific Ag, 1.0 ng/mL (Normal) Range: 0.0-4.0 Serum Comments: [employer] ECLIA methodology. .According to the [place] [employer], Serum PSA shoulddecrease and remain at undetectable levels after radicalprostatectomy. The AUA defines biochemical recurrence as an initialPSA value 0.2 ng/mL or greater followed by a subsequent confirmatoryPSA value 0.2 ng/mL or greater.Values obtained with d ifferent assay methods or kits cannot be usedinterchangeably. Results cannot be interpreted as absolute evidenceof the presence or absence of malignant disease. 47-Ana-089257:01 Metabolic Panel, Basic Comments: copy to Dr. hu; PATIENT NOT FASTINGPERFORMED BY: LabCoHealthSouth - Rehabilitation Hospital of Toms RiverDymkci5570 [facility] [id number] Information: [id number] (99422) Calcium, Serum 9.3 mg/dL (Normal) Range: 8.6-10.2 [...] Glucose, Serum 192 mg/dL (Abnormal) Range: 65-99 37-Lhx-617445:49 BNTP (69602) Comments: PATIENT NOT FASTINGPERFORMED BY: [facility] Tcdrhv5512 [facility] [id number] Information: [id number],[id number] B-Type Natriuretic Peptide 273.9 pg/mL (Abnormal) Range: 0.0-100.0 4-Ooa-737669:01 HgA1C , Office (07224) HgA1C , Office 6.1 % (Normal) Range: 4.6 - 7.1 09-Ryr-449310:02 Basic Metabolic Profile (BMP) Comments: [facility] [address] [place], [place], [address] GAP 6 (Normal) Range: 5-15 CO2 26.0 [...] 126 mg/dLsuggests DIABETES MELLITUS per A.D.A. criteria. 56-Wks-377111:02 BNP,B-Type NATRIURETIC PEPTIDE Comments: [facility] Jakfxuufsi[address] [facility] [place], [place], [address] B-TYPE JUSTIN PEP 261.3 pg/mL (Abnormal) Range: 0-100 20-Mrg-872103:22 TSH (04577) Comments: PATIENT NOT FASTINGPERFORMED BY: LabCoHealthSouth - Rehabilitation Hospital of Toms RiverVyjsct3711 [facility] [id number] TSH 3.740 {uIU/mL} (Normal) Range: 0.450-4.500 13-Mwd-614198:22 METABOLIC PANEL, COMPREHENSIVE Comments: PATIENT NOT FASTINGPERFORMED BY: LabCoHealthSouth - Rehabilitation Hospital of Toms RiverIxnnel0962 [facility] [id number] (57473) ALT (SGPT) 19 [iU]/L (Normal) Range: 0-44 [...] Glucose, Serum 155 mg/dL (Abnormal) Range: 65-99 91-Vwa-045615:22 CBC W/AUTO DIFF WBC Comments: PATIENT NOT FASTINGPERFORMED BY: LabCoHealthSouth - [facility] Hospital of Toms RiverXkyahm4526 [facility] [id number] Information: 135957,G25903; [address] 4[address] (43827) Immature Grans (Abs) 0.0 {x10E3/uL} (Normal) Range: [...] (Normal) Range: 3.4-10.8 :57 HgA1C , Office (21302) HgA1C , Office 7.1 % (Normal) Range: 4.6 - 7.1 :13 Lipid Profile Comments: [facility] [address] [place], [place], [address] VLDL 78 mg/dL (Abnormal) Range: 5-40 LDL [...] mg/dL High Risk :13 Liver Profile Comments: [facility] Wagpxkxobj2542 [facility]. [place], [place], [address] D BILI 0.10 mg/dL (Normal) Range: 0.00-0.30 T BILI 0.40 mg/dL (Normal) Range: 0.20-1.00 ALT 30 U/L (Normal) Range: 12-78 ALK P 99 U/L (Normal) Range: 50-136 AST 23 U/L (Normal) Range: 15-37 GLOB 3.6 g/dL (Abnormal) Range: 2.3-3.5 ALB 3.3 g/dL (Abnormal) Range: 3.4-5.0 T PROT 6.9 g/dL (Normal) Range: 6.4-8.2 76-Uoo-314270:33 Blood Glucose , Office (74701) Blood Glucose , Office 184 (Normal) Comments: told to stop juices and tighten diet 19-Eve-41221:25 METABOLIC PANEL, BASIC Comments: PATIENT NOT FASTINGPERFORMED BY: [place] 3110870 [facility] [id number] Information: 736146,[id number]; apt. 10-26-15 creat stayed same (64274) Calcium, Serum 9.0 mg/dL (Normal) Range: 8.6-10.2 [...] Glucose, Serum 127 mg/dL (Abnormal) Range: 65-99 82-Qiw-295413:26 Metabolic Panel, Basic Comments: standing order; PATIENT NOT FASTINGPERFORMED BY: [facility]6370 [facility] [id number] Information: [id number] (79661) Calcium, Serum 9.1 mg/dL (Normal) Range: 8.6-10.2 [...] mg/dL (Abnormal) Range: 65-99 :36 CULTURE, SPUTUM (28661) Comments: PATIENT NOT FASTINGPERFORMED BY: Tequila MobileECU Health [facility] Hospital [id number] Information: SRC:[facility] [id number] Result 1 RRF (Normal) Comments: Routine respiratory liu Lower Respiratory Culture Final report (Normal) :31 HgA1C , Office (49944) HgA1C , Office 6.4 % (Normal) Range: 4.6 - 7.1 :31 Blood Glucose , Office (37466) Blood Glucose , Office 282 (Normal) :38 PSA (PROSTATE SPECIFIC Comments: PATIENT NOT FASTINGPERFORMED BY: [employer]6370 Tumotorizado.comAffinity Health Partners [id number] ANTIGEN) (V76.44) Prostate Specific Ag, 1.0 ng/mL (Normal) Range: 0.0-4.0 Serum Comments: [employer] ECLIA methodology. .According to the [place] [employer], Serum PSA shoulddecrease and remain at undetectable levels after radicalprostatectomy. The AUA defines biochemical recurrence as an initialPSA value 0.2 ng/mL or greater followed by a subsequent confirmatoryPSA value 0.2 ng/mL or greater.Values obtained with d ifferent assay methods or kits cannot be usedinterchangeably. Results cannot be interpreted as absolute evidenceof the presence or absence of malignant disease. :38 TSH (59391) Comments: PATIENT NOT FASTINGPERFORMED BY: [employer] Rormxp8808 PingMeECU [facility] [id number] TSH 4.310 {uIU/mL} (Normal) Range: 0.450-4.500 :38 Magnesium (01358) Comments: PATIENT NOT FASTINGPERFORMED BY: [employer] Kcwtcl1261 Tumotorizado.comAffinity Health Partners [id number] Magnesium, Serum 1.9 mg/dL (Normal) Range: 1.6-2.6 :38 Metabolic Panel, Comments: PATIENT NOT FASTINGPERFORMED BY: [facility] Yuozsd6084 [address] [place] [id number] Information: [id number],G43040; apt. 07-23-15 Comprehensive (74257) ALT (SGPT) 28 [iU]/L (Normal) Range: 0-44 [...] Glucose, Serum 163 mg/dL (Abnormal) Range: 65-99 24-Ski-803414:08 HgA1C , Office (19415) HgA1C , Office 6.5 % (Normal) Range: 4.6 - 7.1 27-Pjy-864501:08 Blood Glucose , Office (23925) Blood Glucose , Office 277 (Normal) :52 CBC, Platelet, No Differential Comments: PATIENT WAS FASTINGPERFORMED BY: MingglEaton Rapids Medical Center6370 [facility] [id number] Platelets 184 {x10E3/uL} (Normal) Range: 150-379 RDW 14.1 % (Normal) Range: 12.3-15.4 MCHC 34.2 g/dL (Normal) Range: 31.5-35.7 MCH 33.7 pg (Abnormal) Range: 26.6-33.0 MCV 99 fL (Abnormal) Range: 79-97 Hematocrit 40.3 % (Normal) Range: 37.5-51.0 Hemoglobin 13.8 g/dL (Normal) Range: 12.6-17.7 RBC 4.09 {x10E6/uL} (Abnormal) Range: 4.14-5.80 WBC 8.2 {x10E3/uL} (Normal) Range: 3.4-10.8 :52 Renal Panel (10) Comments: PATIENT WAS FASTINGPERFORMED BY: KIS GroupHealthSouth - Rehabilitation Hospital of Toms RiverAuhdxt0054 [facility] [id number] Information: [id number] Albumin, Serum 4.1 g/dL (Normal) Range: 3.5-4.8 [...] 65-99 :05 Lipid Profile Comments: Test performed at:[facility] Rqhodcompb7194 [facility] [place] [address] VLDL 35 mg/dL (Normal) Range: [...] Risk :05 Liver Profile Comments: Test performed at:[facility] [address]rj[address] [place], [place] [address] D BILI 0.20 mg/dL (Normal) Range: 0.00-0.30 T BILI 0.70 mg/dL (Normal) Range: 0.00-4.00 ALT 27 U/L (Normal) Range: 12-78 ALK P 80 U/L (Normal) Range: 50-136 AST 26 U/L (Normal) Range: 15-37 GLOB 3.4 g/dL (Normal) Range: 2.7-4.2 ALB 3.7 g/dL (Normal) Range: 3.4-5.0 T PROT 7.1 g/dL (Normal) Range: 6.4-8.2 17-Mqm-481703:47 Vitamin B-12 Comments: these today; PATIENT NOT FASTINGPERFORMED BY: [facility] Llowew1487 S[address]eyPowWow [facility] [place] [id number] BY: LabCo[address] [id number] (cyanocobalamin) (68298) Vitamin B12 526 pg/mL (Normal) Range: 211-946 90-Kul-567443:47 RETICULOCYTE COUNT (39107) Comments: PATIENT NOT FASTINGPERFORMED BY: [facility] Xqkkcz1027 [address] EffRx Pharmaceuticalsblin [place] [id number] BY: KIS GroupCraig Ville 274317 [facility] [id number] Reticulocyte Count 2.1 % (Normal) Range: 0.6-2.6 60-Twi-290135:47 Folic Acid Serum (19823) Comments: PATIENT NOT FASTINGPERFORMED BY: KIS GroupMary Ville 3237870 [facility] [id number] BY: KIS Group[address] [id number] Information: [id number] Folate (Folic Acid), Serum >20.0 ng/mL (Normal) Comments: A serum folate concentration of less than 3.1 ng/mL isconsidered to represent clinical deficiency. 90-Pik-922655:47 Methymalonic Acid, Serum Comments: PATIENT NOT FASTINGPERFORMED BY: KIS GroupMary Ville 3237870 [facility] [id number] BY: [employer] Group[address] [id number] (79654) Methylmalonic Acid, Serum 219 nmol/L (Normal) Range: 0-378 :42 HgA1C , Office (38006) HgA1C , Office 6.5 % (Normal) Range: 4.6 - 7.1 :42 Blood Glucose , Office (04174) Blood Glucose , Office 194 (Normal) 49-Lld-228724:13 Basic Metabolic Profile (BMP) Comments: Test performed at:[facility] [address]xvee[address] [place] [address] GAP 8 (Normal) Range: 5-15 CO2 28.0 [...] 126 mg/dLsuggests DIABETES MELLITUS per A.D.A. criteria. 90-Dvq-37236:22 Basic Metabolic Profile (BMP) Comments: Test performed at:[facility] Wyqqsojdzd6017 [place] [address] GAP 6 (Normal) Range: 5-15 [...] :22 BNP,B-Type NATRIURETIC PEPTIDE Comments: Test performed at:[facility] Bsfweicqme1831 [place] [address] B-TYPE JUSTIN PEP 337.5 pg/mL (Abnormal) Range: 0-100 53-Jyo-492073:19 Magnesium (15366) Comments: 2 weeks and in three months (approximately); PATIENT WAS FASTINGPERFORMED BY: [facility] Fofzbq0516 [facility] [id number] Magnesium, Serum 1.9 mg/dL (Normal) Range: 1.6-2.6 88-Dnt-841397:19 Renal function Panel (84038) Comments: 2 weeks; PATIENT WAS FASTINGPERFORMED BY: [facility] Bjdtpy5327 [facility] [id number] Phosphorus, Serum 3.2 mg/dL (Normal) Range: 2.5-4.5 64-Hyv-762030:19 TSH (03200) Comments: PATIENT WAS FASTINGPERFORMED BY: [employer] LevelUp [facility] [id number] TSH 2.460 {uIU/mL} (Normal) Range: 0.450-4.500 97-Pfc-369217:19 METABOLIC PANEL, COMPREHENSIVE Comments: PATIENT WAS FASTINGPERFORMED BY: Oracle YouthCrownpoint Healthcare FacilityUcevef6126 [facility] [id number] (80458) ALT (SGPT) 21 [iU]/L (Normal) Range: 0-44 [...] Glucose, Serum 131 mg/dL (Abnormal) Range: 65-99 61-Cuc-[id number] LIPID PANEL ([id number]) Comments: PATIENT WAS FASTINGPERFORMED BY: [facility] [facility] [id number] LDL/HDL Ratio 0.7 {ratio_units} (Normal) Range: 0.0-3.6 [...] Cholesterol, Total 118 mg/dL (Normal) Range: 100-199 [id number]-Vgb-[id number]:19 CBC W/AUTO DIFF WBC Comments: PATIENT WAS FASTINGPERFORMED BY: [facility]6[address] [facility] [id number] Information: [id number] (44539) Immature Grans (Abs) 0.0 {x10E3/uL} (Normal) Range: [...] Range: 3.4-10.8 :38 Blood Glucose , Office (16689) Blood Glucose , Office 229 (Normal) :38 HgA1C , Office (65216) HgA1C , Office 6.7 % (Normal) Range: 4.6 - 7.1 51-Rkf-772974:23 Basic Metabolic Profile (BMP) Comments: Test performed at:[facility] [address] [place], [place] [id number] GAP 6 (Normal) Range: 5-15 CO2 28.0 [...] 126 mg/dLsuggests DIABETES MELLITUS per A.D.A. criteria. 74-Yrt-359160:23 BNP,B-Type NATRIURETIC PEPTIDE Comments: Test performed at:[facility] [address] [place] [address] B-TYPE JUSTIN PEP 348.7 pg/mL [...] pg/mL (Abnormal) Range: 0-100 :47 CBC (Auto) (44995) Comments: PATIENT NOT FASTINGPERFORMED BY: SongFlame6370 [place] [facility] [id number] Platelets 165 {x10E3/uL} (Normal) Range: 150-379 RDW 13.9 % (Normal) Range: 12.3-15.4 MCHC 34.3 g/dL (Normal) Range: 31.5-35.7 MCH 33.8 pg (Abnormal) Range: 26.6-33.0 MCV 99 fL (Abnormal) Range: 79-97 Hematocrit 38.5 % (Normal) Range: 37.5-51.0 Hemoglobin 13.2 g/dL (Normal) Range: 12.6-17.7 RBC 3.91 {x10E6/uL} (Abnormal) Range: 4.14-5.80 WBC 6.7 {x10E3/uL} (Normal) Range: 3.4-10.8 :47 Renal function Panel Comments: PATIENT NOT FASTINGPERFORMED BY: KIS GroupHealthSouth - Rehabilitation Hospital of Toms RiverEmucui1833 [facility] [id number] Information: [id number] (97158) Albumin, Serum 4.0 g/dL (Normal) Range: 3.5-4.8 [...] 144 mg/dL (Abnormal) Range: 65-99 :47 MAGNESIUM (51703) Comments: PATIENT NOT FASTINGPERFORMED BY: LabCoHealthSouth [facility] Toms RiverVbkrxk9337 [facility] [id number] Magnesium, Serum 1.7 mg/dL (Normal) Range: 1.6-2.6 :28 HgA1C , Office (68451) HgA1C , Office 6.6 % (Normal) Range: 4.6 - 7.1 :28 Blood Glucose , Office (02596) Blood Glucose , Office 148 (Normal) :54 [...] CHOL 130 mg/dL (Normal) Comments: <200 mg/dL Wgrbhlkwm824-392 mg/dL Borderline>240 mg/dL High Risk HDL 62 [...] performed using the TPSA assay method for theKaiser Permanente Santa Teresa Medical CenterWAFU chemistry system. Values obtained with differentassay methods cannot be used interchangably.When changing PSA assays in the course of monitoring apatient, additional sequential testing should be carriedout to confirm baseline values. :54 T4 8.3 ug/dL (Normal) Comments: DR HU ORDERED RAÚLYOANDYBEAU ANDREW ORDERED CBCD TSH T4DR BONEZZI ORDERED PSA TSH CBCD LIPID CMP MIAMAG ADDED PER REQUEST Range: 4.5-12.1 66-Dpu-06199:54 TSH 2.50 {uIU/mL} (Normal) Comments: DR HU ORDERED BMPYOANYDBEAU ANDREW ORDERED CBCD TSH T4DR BONEZZI ORDERED PSA TSH CBCD LIPID CMP MIAMAG ADDED PER REQUEST Range: 0.358-3.74 53-Vag-076600:13 BMP GAP 7 (Normal) Range: 5-15 CO2 [...] in 1-2 weeks; PATIENT NOT FASTINGPERFORMED BY: LabCoHealthSouth [facility] Toms RiverPhewgx6114 [facility] [id number] Information: [id number] (31146) Calcium, Serum 8.7 mg/dL (Normal) Range: 8.6-10.2 [...] Glucose, Serum 161 mg/dL (Abnormal) Range: 65-99 58-Wpq-192423:00 BNTP (60471) Comments: PATIENT NOT FASTINGPERFORMED BY: KIS GroupCrownpoint Healthcare FacilityTmjyfe1118 [facility] [id number] Information: [id number] ORDER NO DRAW F EE B-Type Natriuretic Peptide 899.8 pg/mL (Abnormal) Range: 0.0-100.0 54-Ybi-543206:14 CULTURE, SPUTUM (82244) Comments: PATIENT NOT FASTINGPERFORMED BY: [employer] Qsxzop2819 [facility] [id number] Result 1 RRF (Normal) Comments: Routine respiratory liu Lower Respiratory Culture Final report (Normal) 20-Dgk-470349:00 Metabolic Panel, Basic Comments: PATIENT NOT FASTINGPERFORMED BY: [employer] Vqtadw6896 [facility] [id number] Information: [id number] (29776) Calcium, Serum 8.6 mg/dL (Normal) Range: 8.6-10.2 [...] Glucose, Serum 129 mg/dL (Abnormal) Range: 65-99 96-Txc-451080:22 CBC WITH MANUAL DIFF Comments: all copies of labs to Dr. hu; PATIENT WAS FASTINGPERFORMED BY: KIS GroupCrownpoint Healthcare FacilityPxryqv2405 [facility] [id number] Information: [id number] (97081) Immature Grans (Abs) 0.0 {x10E3/uL} (Normal) Range: [...] 4.14-5.80 WBC 7.7 {x10E3/uL} (Normal) Range: 3.4-10.8 32-Crq-927033:22 MICROALBUMIN: CREATININE RATIO Comments: PATIENT WAS FASTINGPERFORMED BY: LabCoHealthSouth [facility] Toms RiverGmrhed0871 [facility] [id number] (09103) AND (96348) Microalb/Creat Ratio 135.4 {mg/g_creat} (Abnormal) Range: 0.0-30.0 Creatinine, Urine 126.0 mg/dL (Normal) Range: 22.0-328.0 Microalbumin, Urine 170.6 ug/mL (Abnormal) Range: 0.0-17.0 :22 METABOLIC PANEL, COMPREHENSIVE Comments: PATIENT WAS FASTINGPERFORMED BY: Audible Magic70 [facility] [id number] (44136) ALT (SGPT) 14 [iU]/L (Normal) Range: 0-44 [...] Glucose, Serum 140 mg/dL (Abnormal) Range: 65-99 79-Xmj-802637:22 LIPID PANEL (28013) Comments: PATIENT WAS FASTINGPERFORMED BY: SongFlame6370 [facility] [id number] LDL/HDL Ratio 0.8 {ratio_units} (Normal) Range: 0.0-3.6 LDL Cholesterol Calc 40 mg/dL (Normal) Range: 0-99 VLDL Cholesterol Mike 27 mg/dL (Normal) Range: 5-40 HDL Cholesterol 53 mg/dL (Normal) Comments: According to ATP-III Guidelines, HDL-C >59 mg/dL is considered anegative risk factor for CHD. Triglycerides 134 mg/dL (Normal) Range: 0-149 Cholesterol, Total 120 mg/dL (Normal) Range: 100-199 59-Saj-959332:22 TSH (51677) Comments: PATIENT WAS FASTINGPERFORMED BY: Equinext [facility] [id number] TSH 3.630 {uIU/mL} (Normal) Range: 0.450-4.500 :34 Blood Glucose , Office (63919) Blood Glucose , Office 164 (Normal) :34 HgA1C , Office (54046) HgA1C , Office 6.4 % (Normal) Range: 4.6 - 7.1 :31 LIPID PANEL (87888) Comments: copy all labs to [employer]; PATIENT WAS FASTINGPERFORMED BY: Oree [employer]70 [facility] [id number] LDL/HDL Ratio 0.9 {ratio_units} (Normal) Range: 0.0-3.6 [...] (PROSTATE SPECIFIC Comments: PATIENT WAS FASTINGPERFORMED BY: Nortislin6370 [facility] [id number] ANTIGEN) (V76.44) Prostate Specific Ag, 1.3 ng/mL (Normal) Range: 0.0-4.0 Serum Comments: allGreenupIA methodology. .According to the [place] [employer] Association, Serum PSA shoulddecrease and remain at undetectable levels after radicalprostatectomy. The AUA defines biochemical recurrence as an initialPSA value 0.2 ng/mL or greater followed by a subsequent confirmatoryPSA value 0.2 ng/mL or greater.Values obtained with d ifferent assay methods or kits cannot be usedinterchangeably. Results cannot be interpreted as absolute evidenceof the presence or absence of malignant disease. :31 TSH (52446) Comments: PATIENT WAS FASTINGPERFORMED BY: KIS GroupCrownpoint Healthcare FacilityOidpsi3888 [facility] [id number] TSH 3.240 {uIU/mL} (Normal) Range: 0.450-4.500 :31 MICROALBUMIN: CREATININE RATIO Comments: PATIENT WAS FASTINGPERFORMED BY: [employer] Tcgvqv0739 [facility] [id number] (29771) AND (06837) Microalb/Creat Ratio 51.5 {mg/g_creat} (Abnormal) Range: 0.0-30.0 Microalbumin, Urine 104.3 ug/mL (Abnormal) Range: 0.0-17.0 Creatinine, Urine 202.4 mg/dL (Normal) Range: 22.0-328.0 : METABOLIC PANEL, COMPREHENSIVE Comments: PATIENT WAS FASTINGPERFORMED BY: KIS GroupHealthSouth - [facility] Hospital of Toms RiverQikjxj1644 [facility] [id number] (04639) ALT (SGPT) 13 [iU]/L (Normal) Range: 0-44 [...] Glucose, Serum 122 mg/dL (Abnormal) Range: 65-99 96-Whb-73430:31 CBC WITH MANUAL DIFF Comments: PATIENT WAS FASTINGPERFORMED BY: LabCoHealthSouth [facility] Toms RiverJuhhid7969 [facility] [id number] Information: ADD [id number] AND DRAW FEE [id number] 6468 (98563) Immature Grans (Abs) 0.0 {x10E3/uL} (Normal) Range: [...] interval change :42 Blood Glucose , Office (61571) Blood Glucose , Office 171 (Normal) :41 HgA1C , Office (84867) HgA1C , Office 6.1 % (Normal) Range: [...] Sue M.D.December 11, 2012 at 4:00:01 PM [id number] Signed GP/GP If you are the referring physician and would like to consult with theradiologist who provided this interpretation, please contact James Trejo at . If this radiologist is unavailable, youwill be directed to another radiologist to assist. If you are a patient with a question regarding this report, pleasecontactyour referring physician directly. Professional Interpretation Provided By: [employer], Phone , These documents contain legally protected [...] 12/11/12 1605 Sign by: Louis Sue MD 64-Dyh-07457:56 CBC, Platelets & Auto Diff Comments: PATIENT NOT FASTINGPERFORMED BY: LabCo Mxisuv4410 [facility] [id number] Information: [id number] (55272) Immature Grans (Abs) 0.0 {x10E3/uL} (Normal) Range: [...] (Normal) Range: 4.0-10.5 :56 Metabolic Panel, Basic (85731) Comments: PATIENT NOT FASTINGPERFORMED BY: LabCoHealth[facility] Toms RiverZcrfir9822 [facility] [id number] Calcium, Serum 9.5 mg/dL (Normal) Range: 8.6-10.2 [...] Range: 65-99 :03 Blood Glucose , Office (17225) Blood Glucose , Office 185 (Normal) :03 HgA1C , Office (84056) HgA1C , Office 5.6 % (Normal) Range: 4.6 - 7.1 0-Nme-448101:36 CBC WITH MANUAL DIFF Comments: send cardiology Dr. hu; PATIENT WAS FASTINGPERFORMED BY: LabCoHealthSouth [facility] Toms RiverNiqywi4036 [facility] [id number] Information: [id number] (06963) Immature Grans (Abs) 0.0 {x10E3/uL} (Normal) Range: [...] 4.14-5.80 WBC 10.9 {x10E3/uL} (Abnormal) Range: 4.0-10.5 0-Fvr-215012:36 MICROALBUMIN: CREATININE RATIO Comments: PATIENT WAS FASTINGPERFORMED BY: [employer]ree [employer]70 [facility]EC[facility] [id number] (88787) AND (60645) Microalb/Creat Ratio 37.8 {mg/g_creat} (Abnormal) Range: 0.0-30.0 Creatinine, Urine 138.0 mg/dL (Normal) Range: 22.0-328.0 Microalbumin, Urine 52.1 ug/mL (Abnormal) Range: 0.0-17.0 8-Kno-037153:36 METABOLIC PANEL, COMPREHENSIVE Comments: PATIENT WAS FASTINGPERFORMED BY: [employer]70 [facility]EC[facility] [id number] (14158) ALT (SGPT) 17 [iU]/L (Normal) Range: 0-44 [...] Glucose, Serum 109 mg/dL (Abnormal) Range: 65-99 0-Arg-642257:36 LIPID PANEL (16649) Comments: PATIENT WAS FASTINGPERFORMED BY: EndoDex Acujee3196 [facility] [id number] LDL Cholesterol Calc 52 mg/dL (Normal) Range: 0-99 LDL/HDL Ratio 0.9 {ratio_units} (Normal) Range: 0.0-3.6 HDL Cholesterol 58 mg/dL (Normal) Comments: According to ATP-III Guidelines, HDL-C >59 mg/dL is considered anegative risk factor for CHD. VLDL Cholesterol Mike 21 mg/dL (Normal) Range: 5-40 Cholesterol, Total 131 mg/dL (Normal) Range: 100-199 Triglycerides 103 mg/dL (Normal) Range: 0-149 9-Nny-235288:14 Blood Glucose , Office (09473) Blood Glucose , Office 171 (Normal) Comments: had toast for breakfast 9-Him-413330:07 HgA1C , Office (28755) HgA1C , Office 6.0 % (Normal) Range: 4.6 - 7.1 5-Ygs-439665:07 Blood Glucose , Office (90541) Blood Glucose , Office 192 (Normal) 4-Aub-277042:45 MICROALBUMIN: CREATININE RATIO Comments: PATIENT WAS FASTINGPERFORMED BY: EndoDex Snphjt5484 [facility] [id number] (72933) AND (65619) Microalb/Creat Ratio 218.7 {mg/g_creat} (Abnormal) Range: 0.0-30.0 Microalbumin, Urine 359.3 ug/mL (Abnormal) Range: 0.0-17.0 Creatinine, Urine 164.3 mg/dL (Normal) Range: 22.0-328.0 5-Rll-871438:45 METABOLIC PANEL, COMPREHENSIVE Comments: PATIENT WAS FASTINGPERFORMED BY: MingglCoCrownpoint Healthcare FacilityPdtean2653 [facility] [id number] (84374) ALT (SGPT) 11 [iU]/L (Normal) Range: 0-55 [...] Glucose, Serum 125 mg/dL (Abnormal) Range: 65-99 3-Ytl-413369:45 LIPID PANEL (40601) Comments: PATIENT WAS FASTINGPERFORMED BY: KIS GroupHealthSouth - [facility] Hospital [facility] Toms RiverSbumzh0707 [facility] [id number] LDL/HDL Ratio 0.6 {ratio_units} (Normal) Range: 0.0-3.6 [...] MANUAL DIFF Comments: PATIENT WAS FASTINGPERFORMED BY: LabCoHealth[facility] Toms RiverIgzoze9091 [facility] [id number] Information: [id number] (22350) Immature Grans (Abs) 0.0 {x10E3/uL} (Normal) Range: [...] 4.14-5.80 WBC 6.1 {x10E3/uL} (Normal) Range: 4.0-10.5 5-Lbu-658784:41 HgA1C , Office (94254) HgA1C , Office 5.5 % (Normal) Range: 4.6 - 7.1 :41 Blood Glucose , Office (60883) Blood Glucose , Office 148 (Normal) :00 CBC (Auto) (87137) Comments: PATIENT NOT FASTINGPERFORMED BY: KIS Group LevelUp [facility] [id number] Information: [id number] Platelets 215 {x10E3/uL} (Normal) Range: 140-415 RDW 15.4 % (Abnormal) Range: 11.7-15.0 MCHC 32.3 g/dL (Normal) Range: 32.0-36.0 MCH 30.5 pg (Normal) Range: 27.0-34.0 MCV 94 fL (Normal) Range: 80-98 Hematocrit 39.0 % (Normal) Range: 36.0-50.0 Hemoglobin 12.6 g/dL (Normal) Range: 12.5-17.0 RBC 4.13 {x10E6/uL} (Normal) Range: 4.10-5.60 WBC 7.2 {x10E3/uL} (Normal) Range: 4.0-10.5 :13 HgA1C , Office (72504) HgA1C , Office 5.3 % (Normal) Range: 4.6 - 7.1 :13 Blood Glucose , Office (78248) Blood Glucose , Office 146 (Normal) :12 Microscopic Examination Comments: PATIENT WAS FASTINGPERFORMED BY: K[employer] Group Yifqfk2624 [facility] [id number] Bacteria None seen (Normal) Mucus Threads Present (Normal) Epithelial Cells (non renal) 0-10 {/hpf} (Normal) Range: 0 - 10 RBC 0-3 {/hpf} (Normal) Range: 0 - 3 WBC 0-5 {/hpf} (Normal) Range: 0 - 5 :12 PSA (PROSTATE SPECIFIC Comments: PATIENT WAS FASTINGPERFORMED BY: KIS Group LevelUp [facility] [id number] ANTIGEN) (V76.44) Prostate Specific Ag, 1.0 ng/mL (Normal) Range: 0.0-4.0 Serum Comments: Erik ECLIA methodology. .According to the [place] [employer], Serum PSA shoulddecrease and remain [...] of malignant disease. :12 URINALYSIS, W/ MICRO (06182) Comments: PATIENT WAS FASTINGPERFORMED BY: CBG HoldingsECU [facility] [id number] Microscopic Examination See below: (Normal) Microscopic Examination MICRON (Normal) Comments: Microscopic follows if indicated. Nitrite, Urine Negative (Normal) Urobilinogen,Semi-Qn 0.2 mg/dL (Normal) Range: 0.0-1.9 Bilirubin Negative (Normal) Ketones Negative (Normal) Occult Blood Negative (Normal) Glucose Negative (Normal) Protein Negative (Normal) WBC Esterase Negative (Normal) Appearance Clear (Normal) pH 7.5 (Normal) Range: 5.0-7.5 Urine-Color Yellow (Normal) Specific [place] 1.013 (Normal) Range: 1.005-1.030 :12 METABOLIC PANEL, COMPREHENSIVE Comments: PATIENT WAS FASTINGPERFORMED BY: [employer]6370 [facility]otorizado.comAff[facility] Partners [id number] (51342) ALT (SGPT) 13 [iU]/L (Normal) Range: 0-55 [...] MANUAL DIFF Comments: PATIENT WAS FASTINGPERFORMED BY: LabEaton [facility] Center6370 [facility] [id number] Information: [id number] (99423) Immature Grans (Abs) 0.0 {x10E3/uL} (Normal) Range: [...] {x10E3/uL} (Normal) Range: 4.0-10.5 :12 LIPID PANEL (35835) Comments: PATIENT WAS FASTINGPERFORMED BY: Oohly [facility] [id number] LDL/HDL Ratio 0.9 {ratio_units} (Normal) Range: 0.0-3.6 LDL Cholesterol Calc 52 mg/dL (Normal) Range: 0-99 VLDL Cholesterol Mike 18 mg/dL (Normal) Range: 5-40 HDL Cholesterol 60 mg/dL (Normal) Comments: According to ATP-III Guidelines, HDL-C >59 mg/dL is considered anegative risk factor for CHD. Cholesterol, Total 130 mg/dL (Normal) Range: 100-199 Triglycerides 92 mg/dL (Normal) Range: 0-149 :32 HgA1C , Office (32165) HgA1C , Office 6.0 % (Normal) Range: 4.6 - 7.1 :32 Blood Glucose , Office (13845) Blood Glucose , Office 128 (Normal) :24 LIPID PANEL (20065) Comments: PATIENT NOT FASTINGPERFORMED BY: Kal[employer] Therapeuticsblin [place] [id number] Information: [id number] LDL Cholesterol Calc 33 mg/dL (Normal) Range: [...] Panel, Basic Comments: PATIENT NOT FASTINGPERFORMED BY: Audible Magic70 [facility] [id number] Information: [id number] (35695) Calcium, Serum 9.0 mg/dL (Normal) Range: 8.6-10.2 [...] 149 mg/dL (Abnormal) Range: 65-99 :56 Ferritin (42425) Comments: PATIENT NOT FASTINGPERFORMED BY: KIS GroupHealthSouth - [facility] Hospital of Toms RiverAdqelk9638 [facility] [id number] Ferritin, Serum 221 ng/mL (Normal) Range: 30-400 :19 Blood Glucose , Office (11268) Blood Glucose , Office 134 (Normal) :00 [...] 0.8-1.3 GLU 67 mg/dL (Abnormal) Range: 70-110 70-Foq-245815:29 HIP, MIN 2 VIEWS Radiology Report See [...] by Isabel Calderónscribed on 10/13/10 1038 by Sherwin COOPER by King Calderón on 10/14/10 1005 Sign by: King Calderón :28 HIP, MIN 2 VIEWS Radiology Report See [...] Nguyenscribed on 10/13/10 1028 by Mark COOPER n by King Calderón on 10/14/10 1005 Sign by: King Calderón :01 HgA1C , Office (49432) HgA1C , Office 6.7 % (Normal) Range: 4.6 - 7.1 :01 Blood Glucose , Office (06587) Blood Glucose , Office 163 (Normal) 86-Mxv-484429:39 CBCD,SMEAR DIFF RED CELL MORPH SeeNote {NORMAL} [...] 4.6-6.2 WBC 8.4 K/mm3 (Normal) Range: 4.4-11.0 99-Vys-124200:39 COMP METABOLIC CL 102 mmol/L (Normal) Range: [...] mg/dL High Risk :57 HgA1C , Office (61744) HgA1C , Office 6.5 % (Normal) Range: 4.6 - 7.1 :57 Blood Glucose , Office (97205) Blood Glucose , Office 155 (Normal) :58 [...] 136-145 GLU 107 mg/dL (Normal) Range: 70-110 37-Omt-11319:27 BMP CL 97 mmol/L (Abnormal) Range: 98-107 [...] 136-145 GLU 88 mg/dL (Normal) Range: 70-110 48-Kjp-763065:32 TESTICULAR (HP) Radiology Report See Note (Normal) Comments: Exam Number: [id number] CLINICAL:This is a 70-year-old male patient with [...] testicles are unremarkable. Reported By: LOUIS SUE 93-Sgd-405691:00 Urinalysis, Office (23089) UA - LEUKOCYTE ESTERASE Negative (Normal) UA - NITRITE Negative (Normal) URINE UROBILINGN CASPER TIMED Normal mg/dL (Normal) UA - PROTEIN 30 mg/dL (Normal) UA - PH 6.0 (Normal) Comments: 5.5 UA - BLOOD Negative (Normal) UA - SPECIFIC GRAVITY 1.025 (Normal) UA - KETONES Negative mg/dL (Normal) UA - BILIRUBIN Negative (Normal) UA - GLUCOSE Negative (Normal) 67-Lmm-31161:10 HgA1C , Office (38630) HgA1C , Office 5.5 % (Normal) Range: 4.6 - 7.1 99-Nmg-28518:10 Blood Glucose , Office (56532) Blood Glucose , Office 176 (Normal) 41-Zvn-759612:38 ABDOMEN/PELVIS WITH CONTRAST Radiology Report See Note (Normal) Comments: Exam Number: [id number] CLINICAL:70-year-old male with abdominal pain CT ABDOMEN [...] adrenal gland. Reported By: KING CALDERÓN M.D. 14-Zzp-931446:00 CBCD ABSOLUTE NEUT 7.8 3/uL (Abnormal) Range: [...] 4.6-6.2 WBC 10.9 K/mm3 (Normal) Range: 4.4-11.0 43-Rja-165286:00 COMP METABOLIC ALK P 57 U/L (Normal) [...] CHOL 141 mg/dL (Normal) Comments: <200 mg/dL Dpbpjjedf837-994 mg/dL Borderline>240 mg/dL High Risk :33 LIVER ALK P 53 U/L (Normal) Range: 50-136 ALT 25 U/L (Normal) Range: 12-78 D BILI 0.09 mg/dL (Normal) Range: 0.00-0.30 T BILI 0.30 mg/dL (Normal) Range: 0.00-1.00 ALB 3.9 g/dL (Normal) Range: 3.4-5.0 AST 23 U/L (Normal) Range: 15-37 T PROT 7.8 g/dL (Normal) Range: 6.4-8.2 :09 HgA1C , Office (91236) HgA1C , Office 6.6 % (Normal) Range: 4.6 - 7.1 :09 Blood Glucose , Office (75406) Blood Glucose , Office 243 (Normal) :38 [...] CHOL 132 mg/dL (Normal) Comments: <200 mg/dL Ukdfenzja820-135 mg/dL Borderline>240 mg/dL High Risk :38 LIVER [...] PSA Range: 0.0-4.0 :10 HgA1C , Office (01320) HgA1C , Office 6.1 % (Normal) Range: 4.6 - 7.1 :10 Blood Glucose , Office (29753) Blood Glucose , Office 172 (Normal) 27-Unj-118505:00 LIPID CHOL 150 mg/dL (Normal) Comments: <200 [...] mg/dL VLDL 58 mg/dL (Abnormal) Range: 5-40 02-Svh-519142:00 LIVER ALB 4.0 g/dL (Normal) Range: 3.4-5.0 [...] (Abnormal) Range: 5-40 :33 MICROALB:CRE UR Comments: DR.BONEZZI ORDERED CBCMD LIPID CMP MICROCREATRATIO URINE ORDERED LIPID LIVER MALB:CREAT 421.7 {mg/g_CRE} (Abnormal) MICROALBUMIN,UR 927.0 mg/L (Normal) UR CREAT 219.8 mg/dL (Normal) :38 Blood Glucose , Office (12970) Blood Glucose , Office 163 (Normal) :38 HgA1C , Office (08036) HgA1C , Office 6.0 % (Normal) Range: [...] (Normal) Range: 0.0-4.0 :06 HgA1C , Office (82634) HgA1C , Office 5.9 % (Normal) Range: 4.6 - 7.1 :06 Blood Glucose , Office (48699) Blood Glucose , Office 157 (Normal) :50 METABOLIC PANEL, COMPREHENSIVE Comments: PATIENT NOT FASTINGPERFORMED BY: LabCoHealth[facility] Toms RiverJjkviy4148 [facility] [id number] (46178) A/G Ratio 1.6 (Normal) Range: 1.1-2.5 Albumin, [...] Serum 102 mg/dL (Abnormal) Range: 65-99 If -Monegasque >59 mL/min/1.73 Comments: Note: Persistent reduction for [...] Range: 135-145 :50 CBC WITH MANUAL DIFF (02726) Comments: PATIENT NOT FASTINGClinical Information: ADD DRAW FEE [id number] ADD J [id number] PERFORMED BY: SLAVA LabCoHealth[facility] Toms RiverRucogf9964 [facility] [id number] Baso (Absolute) 0.0 {x10E3/uL} (Normal) Range: 0.0-0.2 [...] 11.7-15.0 WBC 9.9 {x10E3/uL} (Normal) Range: 4.0-10.5 37-Owi-840406:11 HgA1C , Office (76702) HgA1C , Office 5.6 % (Normal) Range: 4.6 - 7.1 :11 Blood Glucose , Office (60200) Blood Glucose , Office 101 (Normal) :55 HgA1C , Office (02502) HgA1C , Office 5.9 % (Normal) Range: 4.6 - 7.1 :55 Blood Glucose , Office (85802) Blood Glucose , Office 104 (Normal) :23 Billing Information Required Comments: TEST(S) ORDERED: 502780-Dumnzimx-Epmyflin Ag, SerumPATIENT NOT FASTINGClinical Information: ADD DRAW FEE [id number] ADD J [id number] PERFORMED BY: SLAVA Lozano [place]6 370 [facility] [id number] SPRCS SPRCS (Normal) Comments: To enable [facility] to file an insurance claim on behalf of yourpatient, please provide or update as indicated the required billinginformation listed below. The HIPAA Privacy regulation at 45 IJB578.506 (c) (3) provides that a covered entity (Physician's Office/Referring Provider) may disclose PHI to another covered entity([facility]) for purposes of payment without patient authorization. .Please provide requested information and return via your servicerepresentative or fax to [phone] within 3 days. :23 Billing Information Required Comments: TEST(S) ORDERED: 720371-Taavuwwu-Hqcpahpq Ag, SerumPATIENT NOT FASTINGPERFORMED BY: SLAVA Lozano Gdxspn9191 [facility] [id number] Highest Level of SPRCS Comments: Information Submitted: NOT GIVENPlease Provide: Diagnosis Code, Signs or Symptoms in ICD9 format at the highest level of specificity.Updated/Corrected Information: Specificity (Normal) __Physician/Designee Signature: Date: 7-Hxv-312734:23 PSA (PROSTATE SPECIFIC Comments: PATIENT NOT FASTINGClinical Information: ADD DRAW FEE [id number] ADD J [id number] PERFORMED BY: LabE[facility] Center[address] [place] [id number] ANTIGEN) (V76.44) Prostate Specific Ag, Serum 1.1 ng/mL (Normal) Range: 0.0-4.0 Comments: Gail (formerly Xcerion) ICMA methodology. .EFFECTIVE March 30, 2008, PSA will be changing to the Erki ECLIA methodology. R ebaselining will be offered for 90 days using panel 618962. The second result, provided by the Gail ICMA methodology will be provided at no charge. 4-Kjn-935626:19 HgA1C , Office (50583) HgA1C , Office 6.1 % (Normal) Range: 4.6 - 7.1 [id number] Blood Glucose , Office (92903) Blood Glucose , Office 248 (Normal) :23 [...] 228.3 mg/dL (Normal) :51 HgA1C , Office (57802) HgA1C , Office 5.7 % (Normal) Range: 4.6 - 7.1 Comments: :51 Blood Glucose , Office (31653) Blood Glucose , Office 197 (Normal) Comments: :41 TROPONIN-I 0.04 ng/mL (Normal) Comments: TROPONIN-I EXPECTED VALUES < 0.50 NEGATIVE 0.50 - 1.49 INDETERMINANT > OR = 1.50 SUGGEST IA :40 BMP Comments: COMMENTS: BONEZZIINDICATE CK '1', [...] 1.49 INDETERMINANT > OR = 1.50 SUGGEST IA :41 BMP BUN 19 mg/dL (Abnormal) Range: [...] 1.49 INDETERMINANT > OR = 1.50 SUGGEST IA :30 PROTEIN,UR.RAN. 22.8 mg/dL (Abnormal) Comments: HOLD [...] AMI > 5 > 4 :10 SPE [id number] A/G RATIO 1.2 (Normal) Range: 0.7-2.0 ALBUMIN [...] Evidenceof monoclonal protein is not apparent.Performed At: [facility], [place] [id number] M-SPIKE SeeNote g/dL (Normal) Comments: Result: Not Observed NOTE: Comment (Normal) Comments: Protein electrophoresis scan will follow via mail orcourier. PROTEIN,TOTAL 6.9 g/dL (Normal) Range: 6.0-8.5 :10 TROPONIN-I < 0.04 ng/mL (Normal) Comments: INDICATE CK '1', '2', '3', OR 'R' FOR RANDOM: 2 Comments: TROPONIN-I EXPECTED VALUES < 0.50 NEGATIVE 0.50 - 1.49 INDETERMINANT > OR = 1.50 SUGGEST IA :50 PRO TIME INR 1.0 (Normal) PROTIME 12.2 s (Normal) Range: 10.6-13.2 :50 TROPONIN-I < 0.04 ng/mL (Normal) Comments: TROPONIN-I EXPECTED VALUES < 0.50 NEGATIVE 0.50 - 1.49 INDETERMINANT > OR = 1.50 SUGGEST IA :08 SHONDA 38 U/L (Normal) Comments: COMMENTS: 6 DR NÚÑEZ Range: 25-115 :08 B-TYPE JUSTIN PEP 143.0 pg/mL (Abnormal) Comments: COMMENTS: 6 DR NÚÑEZ :08 CBCD Comments: COMMENTS: 6 NIYA BASO% 0.4 % (Normal) Range: 0-1 [...] 4.4-11.0 :08 COMP METABOLIC Comments: COMMENTS: 6 NIYA A/G 1.0 {RATIO} (Normal) Range: [...] 1.49 INDETERMINANT > OR = 1.50 SUGGEST IA :30 CHEST WITHOUT CONTRAST Radiology Report See Note (Normal) Comments: Exam Number: [id number] CT HIGH RESOLUTION OF CHEST WITHOUT CONTRAST [...] DENISSE URIAS M.D. :13 HgA1C , Office (81949) HgA1C , Office 6.5 % (Normal) Range: 4.6 - 7.1 :13 Blood Glucose , Office (23071) Blood Glucose , Office 124 (Normal) :59 [...] Report See Note (Normal) Comments: Exam Number: [id number] PA AND LATERAL CHEST HISTORY Being done for cough. FINDINGSCardiac configuration is normal. No acute infiltrate, effusion, orpneumothorax is identified. There is a pacema ker noted in the leftanterior chest. No abnormality is noted in the leads as demonstrated. IMPRESSION1. No acute change noted in the lungs. 2. Little if any change from 09/04/06. Reported By: AMANDO NANCE M.D. 5-Lry-483064:00 C DIF See Note (Normal) Comments: C. [...] (Normal) Range: 5-40 :35 HgA1C , Office (94927) HgA1C , Office 5.6 % (Normal) Range: [...] - 1.0 :39 Blood Glucose , Office (17359) Blood Glucose , Office 161 (Normal) :39 HgA1C , Office (51456) HgA1C , Office 5.7 % (Normal) Range: [...] swelling : Follow up 3 days with [facility] Indication: Leg swelling RLS (restless legs [...] Wheezing Planned Observations CBC WITH MANUAL DIFF ([id number])Indication: CKD (chronic kidney disease), stage 3 (moderate) On: 02-Jan-2021 Request Comments: standing order q 3 months MAGNESIUM ([id number])Indication: CKD (chronic kidney disease), stage 3 (moderate) On: 02-Jan-2021 Request Comments: standing order q 3 months PARATHORMONE ([id number])Indication: CKD (chronic kidney disease), stage 3 (moderate) On: 02-Jan-2021 Request Comments: standing order q 3 months PHOSPHORUS ([id number])Indication: CKD (chronic kidney disease), stage 3 (moderate) On: 02-Jan-2021 Request Comments: standing order q 3 months Renal function Panel ([id number])Indication: CKD (chronic kidney disease), stage 3 (moderate) On: 02-Jan-2021 Request Comments: standing order q 3 months CBC WITH MANUAL DIFF ([id number])Indication: CKD (chronic kidney disease), stage 3 (moderate) On: 04-Oct-2020 Request Comments: standing order q 3 months MAGNESIUM ([id number])Indication: CKD (chronic kidney disease), stage 3 (moderate) On: 04-Oct-2020 Request Comments: standing order q 3 months PARATHORMONE ([id number])Indication: CKD (chronic kidney disease), stage 3 (moderate) On: 04-Oct-2020 Request Comments: standing order q 3 months PHOSPHORUS ([id number])Indication: CKD (chronic kidney disease), stage 3 (moderate) On: 04-Oct-2020 Request Comments: standing order q 3 months Renal function Panel ([id number])Indication: CKD (chronic kidney disease), stage 3 (moderate) On: 04-Oct-2020 Request Comments: standing order q 3 months CBC WITH MANUAL DIFF ([id number])Indication: CKD (chronic kidney disease), stage 3 (moderate) On: 06-Jul-2020 Request Comments: standing order q 3 months MAGNESIUM ([id number])Indication: CKD (chronic kidney disease), stage 3 (moderate) On: 06-Jul-2020 Request Comments: standing order q 3 months PARATHORMONE ([id number])Indication: CKD (chronic kidney disease), stage 3 (moderate) On: 06-Jul-2020 Request Comments: standing order q 3 months PHOSPHORUS ([id number])Indication: CKD (chronic kidney disease), stage 3 (moderate) On: 06-Jul-2020 Request Comments: standing order q 3 months Renal function Panel ([id number])Indication: CKD (chronic kidney disease), stage 3 (moderate) On: 06-Jul-2020 Request Comments: standing order q 3 months CBC WITH MANUAL DIFF ([id number])Indication: CKD (chronic kidney disease), stage 3 (moderate) On: 07-Apr-2020 Request Comments: standing order q 3 months MAGNESIUM ([id number])Indication: CKD (chronic kidney disease), stage 3 (moderate) On: 07-Apr-2020 Request Comments: standing order q 3 months PARATHORMONE ([id number])Indication: CKD (chronic kidney disease), stage 3 (moderate) On: 07-Apr-2020 Request Comments: standing order q 3 months PHOSPHORUS ([id number])Indication: CKD (chronic kidney disease), stage 3 (moderate) On: 07-Apr-2020 Request Comments: standing order q 3 months Renal function Panel ([id number])Indication: CKD (chronic kidney disease), stage 3 (moderate) On: 07-Apr-2020 Request Comments: standing order q 3 months CBC WITH MANUAL DIFF ([id number])Indication: CKD (chronic kidney disease), stage 3 (moderate) On: 08-Jan-2020 Request Comments: standing order q 3 months MAGNESIUM ([id number])Indication: CKD (chronic kidney disease), stage 3 (moderate) On: 08-Jan-2020 Request Comments: standing order q 3 months PARATHORMONE ([id number])Indication: CKD (chronic kidney disease), stage 3 (moderate) On: 08-Jan-2020 Request Comments: standing order q 3 months PHOSPHORUS ([id number])Indication: CKD (chronic kidney disease), stage 3 (moderate) On: 08-Jan-2020 Request Comments: standing order q 3 months Renal function Panel ([id number])Indication: CKD (chronic kidney disease), stage 3 (moderate) On: 08-Jan-2020 Request Comments: standing order q 3 months CBC WITH MANUAL DIFF ([id number])Indication: CKD (chronic kidney disease), stage 3 (moderate) On: 10-Oct-2019 Request Comments: standing order q 3 months MAGNESIUM ([id number])Indication: CKD (chronic kidney disease), stage 3 (moderate) On: 10-Oct-2019 Request Comments: standing order q 3 months PARATHORMONE ([id number])Indication: CKD (chronic kidney disease), stage 3 (moderate) On: 10-Oct-2019 Request Comments: standing order q 3 months PHOSPHORUS ([id number])Indication: CKD (chronic kidney disease), stage 3 (moderate) On: 10-Oct-2019 Request Comments: standing order q 3 months Renal function Panel ([id number])Indication: CKD (chronic kidney disease), stage 3 (moderate) On: 10-Oct-2019 Request Comments: standing order q 3 months CBC WITH MANUAL DIFF ([id number])Indication: CKD (chronic kidney disease), stage 3 (moderate) On: 12-Jul-2019 Request Comments: standing order q 3 months MAGNESIUM ([id number])Indication: CKD (chronic kidney disease), stage 3 (moderate) On: 12-Jul-2019 Request Comments: standing order q 3 months PARATHORMONE ([id number])Indication: CKD (chronic kidney disease), stage 3 (moderate) On: 12-Jul-2019 Request Comments: standing order q 3 months PHOSPHORUS ([id number])Indication: CKD (chronic kidney disease), stage 3 (moderate) On: 12-Jul-2019 Request Comments: standing order q 3 months Renal function Panel ([id number])Indication: CKD (chronic kidney disease), stage 3 (moderate) On: 12-Jul-2019 Request Comments: standing order q 3 months CBC WITH MANUAL DIFF ([id number])Indication: CKD (chronic kidney disease), stage 3 (moderate) On: 13-Apr-2019 Request Comments: standing order q 3 months MAGNESIUM ([id number])Indication: CKD (chronic kidney disease), stage 3 (moderate) On: 13-Apr-2019 Request Comments: standing order q 3 months PARATHORMONE ([id number])Indication: CKD (chronic kidney disease), stage 3 (moderate) On: 13-Apr-2019 Request Comments: standing order q 3 months PHOSPHORUS ([id number])Indication: CKD (chronic kidney disease), stage 3 (moderate) On: 13-Apr-2019 Request Comments: standing order q 3 months Renal function Panel ([id number])Indication: CKD (chronic kidney disease), stage 3 (moderate) On: 13-Apr-2019 Request Comments: standing order q 3 months CBC WITH MANUAL DIFF ([id number])Indication: CKD (chronic kidney disease), stage 3 (moderate) On: 13-Jan-2019 Request Comments: standing order q 3 months MAGNESIUM ([id number])Indication: CKD (chronic kidney disease), stage 3 (moderate) On: 13-Jan-2019 Request Comments: standing order q 3 months PARATHORMONE ([id number])Indication: CKD (chronic kidney disease), stage 3 (moderate) On: 13-Jan-2019 Request Comments: standing order q 3 months PHOSPHORUS ([id number])Indication: CKD (chronic kidney disease), stage 3 (moderate) On: 13-Jan-2019 Request Comments: standing order q 3 months Renal function Panel ([id number])Indication: CKD (chronic kidney disease), stage 3 (moderate) On: 13-Jan-2019 Request Comments: standing order q 3 months CBC WITH MANUAL DIFF ([id number])Indication: CKD (chronic kidney disease), stage 3 (moderate) On: 15-Oct-2018 Request Comments: standing order q 3 months MAGNESIUM ([id number])Indication: CKD (chronic kidney disease), stage 3 (moderate) On: 15-Oct-2018 Request Comments: standing order q 3 months PARATHORMONE ([id number])Indication: CKD (chronic kidney disease), stage 3 (moderate) On: 15-Oct-2018 Request Comments: standing order q 3 months PHOSPHORUS ([id number])Indication: CKD (chronic kidney disease), stage 3 (moderate) On: 15-Oct-2018 Request Comments: standing order q 3 months Keppra ([id number])Indication: Seizure On: 89-Zxl-780880:02 Request Comments: send all labs stat TSH ([id number])Indication: Cardiac dysrhythmia On: 93-Net-80356:40 Request Troponin I (03461)Indication: Episode of syncope On: 11-Jzf-19744:39 Request BNTP ([id number])Indication: Episode of syncope On: 72-Aug-71202:39 Request CBC (Auto) (99021)Indication: Episode of syncope On: :38 Request Metabolic Panel, Comprehensive (80803)Indication: Episode of syncope On: :38 Request Keppra ([id number])Indication: Seizure On: 76-Fbm-536027:57 Request Comments: all copies to Dr. jung CBC WITH MANUAL DIFF ([id number])Indication: CKD (chronic kidney disease), stage 3 (moderate) On: 77-Wbk-716144:57 Request Comments: standing order q 3 months PHOSPHORUS ([id number])Indication: CKD (chronic kidney disease), stage 3 (moderate) On: 86-Ctt-650327:57 Request Comments: standing order q 3 months PARATHORMONE ([id number])Indication: CKD (chronic kidney disease), stage 3 (moderate) On: 97-Yvm-268464:57 Request Comments: standing order q 3 months Renal function Panel ([id number])Indication: CKD (chronic kidney disease), stage 3 (moderate) On: 54-Qnw-272273:57 Request Comments: standing order q 3 months MAGNESIUM ([id number])Indication: CKD (chronic kidney disease), stage 3 (moderate) On: 17-Jul-2018 Request Comments: standing order q 3 months Metabolic Panel, Basic (11695)Indication: Hypertension On: 97-Vjv-189060:34 Request Platelet 68471 (citrate, nonclumping tube)Indication: Thrombocytopenia On: 79-Nfa-767657:25 Request Keppra ([id number])Indication: Generally unsteady On: 94-Mds-992982:20 Request Comments: Dr. Jung copy to him Methymalonic Acid, Serum (17034)Indication: CKD (chronic kidney disease), stage 3 (moderate) On: 57-Eeh-73321:35 Request Vitamin B-12 (cyanocobalamin) (03023)Indication: CKD (chronic kidney disease), stage 3 (moderate) On: :35 Request FIBRIN DEGRAD SLIDE AGGL (74849)Indication: Abnormal platelet aggregation On: :19 Request LDH (LD) (LACTATE DEHYDROGENASE) (89458)Indication: Abnormal platelet aggregation On: :13 Request Platelet Count (42596)Indication: Abnormal platelet aggregation On: :12 Request Comments: PLEASE DRAW IN CITRATE TUBE Renal function Panel (51724)Indication: Hypotension, postural On: :46 Request CBC, Platelets & Auto Diff (66334)Indication: Hypotension, postural On: :45 Request Troponin I (53332)Indication: Hypotension, postural On: :45 Request TSH (56176)Indication: Hypotension, postural On: :43 Request PHOSPHORUS ([id number])Indication: CKD (chronic kidney disease), stage 3 (moderate) On: 21-Aed-772090:23 Request Comments: standing order q 3 months Troponin I (45696)Indication: History of CHF (congestive heart failure) On: 08-Scp-271858:54 Request Renal function Panel (79982)Indication: History of CHF (congestive heart failure) On: 25-Vtl-244597:54 Request TSH (09748)Indication: Hypothyroid On: 00-Kiu-176724:50 Request METABOLIC PANEL, COMPREHENSIVE (78309)Indication: Diabetes mellitus with chronic kidney disease On: 43-Eqn-572391:50 Request MICROALBUMIN: CREATININE RATIO (92558) AND ([id number])Indication: CKD (chronic kidney disease), stage 3 (moderate) On: 9-Mve-906141:41 Request Comments: copy to Dr. Murcia [phone] Parathyroid Hormone-related Peptide (PTH-rP) (61225)Indication: CKD (chronic kidney disease), stage 3 (moderate) On: 5-Rjb-711256:41 Request Comments: copy to Dr. Murcia [phone] URINALYSIS, W/ MICRO ([id number])Indication: Diabetes mellitus with chronic kidney disease On: 75-Uzq-35328:47 Request Comments: 07-15 METABOLIC PANEL, COMPREHENSIVE ([id number])Indication: Diabetes mellitus with chronic kidney disease On: :47 Request Comments: 07-15 LIPOPROTEIN, BLD, BY NMR (58587)Indication: Diabetes mellitus with chronic kidney disease On: :46 Request Comments: 07-15 CBC with auto diff (39929)Indication: Diabetes mellitus with chronic kidney disease On: :46 Request Comments: 07-15 ANCA-P (ANTI NEUTROPHIL CYTOPLASMIC ANTIBODY)Indication: CKD (chronic kidney disease), stage 3 (moderate) On: :38 Request PSA (PROSTATE SPECIFIC ANTIGEN) (V76.44)Indication: Screening for prostate cancer On: 95-Wxc-024716:13 Request Comments: 06-14 PARATHORMONE ([id number])Indication: CKD (chronic kidney disease), stage 3 (moderate) On: :51 Request Magnesium (97254)Indication: CKD (chronic kidney disease), stage 3 (moderate) On: :51 Request CALCIFIDIOL (83245) VIT D 25Indication: CKD (chronic kidney disease), stage 3 (moderate) On: :51 Request Total Protein,24 Hour Urine (16144)Indication: CKD (chronic kidney disease), stage 3 (moderate) On: :50 Request CREATININE CLEARANCE (91821)Indication: CKD (chronic kidney disease), stage 3 (moderate) On: :50 Request Metabolic Panel, Basic (39068)Indication: Cardiomyopathy On: :30 Request Comments: 2 weeks METABOLIC PANEL, COMPREHENSIVE (99201)Indication: Hypertension On: :30 Request Comments: in three months (approximately) CBC with auto diff (20333)Indication: Hypertension On: :29 Request Comments: in three months (approximately) METABOLIC PANEL, BASIC (44461)Indication: Diabetes mellitus with chronic kidney disease On: :05 Request Comments: recheck in 2 wks HGB A1C (30204)Indication: Diabetes mellitus with chronic kidney disease On: :01 Request MAGNESIUM (58942)Indication: Hypomagnesemia On: 81-Jcd-20616:53 Request LIPID PANEL (87677)Indication: Hypertension On: :53 Request Comments: copy to Dr. harmon TSH (53316)Indication: Hypothyroid On: :53 Request METABOLIC PANEL, COMPREHENSIVE (33621)Indication: Hypertension On: :53 Request CBC with auto diff (24651)Indication: Hypertension On: :52 Request CBC (Auto) ([id number])Indication: Hypertension On: :44 Request Comments: in three months (approximately) Renal function Panel (81023)Indication: Hypertension On: 07-Uod-273909:44 Request Comments: in three months (approximately) Metabolic Panel, Basic (80275)Indication: Hypertension On: 78-Oka-981839:30 Request METABOLIC PANEL, BASIC (55761)Indication: Hypertension On: 87-Ohn-89910:37 Request Comments: Forward to Val Almeida at [facility] at fax [phone] also PSA (PROSTATE SPECIFIC ANTIGEN) (V76.44)Indication: Encounter for health maintenance examination with abnormal findings On: 89-Qou-341252:11 Request Comments: due 07-12 MICROALBUMIN: CREATININE RATIO (37282) AND (21234)Indication: Diabetic nephropathy On: 3-Hun-017932:39 Request METABOLIC PANEL, COMPREHENSIVE (41570)Indication: Diabetes mellitus type II, controlled On: 5-Xse-872958:39 Request URINALYSIS, W/ MICRO (21537)Indication: Diabetes mellitus type II, controlled On: :56 Request METABOLIC PANEL, COMPREHENSIVE (88725)Indication: Diabetes mellitus type II, controlled On: :56 Request CBC WITH MANUAL DIFF (90927)Indication: Diabetes mellitus type II, controlled On: :56 Request HgA1C , Office (77882)Indication: Diabetes mellitus type II, controlled On: :19 Request Metabolic Panel, Basic (77301)Indication: Cardiomyopathy On: :01 Request LIPID PANEL (99657)Indication: Diabetes mellitus with chronic kidney disease On: :30 Request METABOLIC PANEL, COMPREHENSIVE (57613)Indication: Diabetes mellitus with chronic kidney disease On: :30 Request CBC WITH MANUAL DIFF (99076)Indication: Diabetes mellitus with chronic kidney disease On: 21-Bwl-32617:30 Request Comments: copy Dr. hu CREATININE CLEARANCE (59962)Indication: Renal insufficiency On: :06 Request 24 hour urine for Protein (93607)Indication: Renal insufficiency On: :06 Request Metabolic Panel, Basic (19061)Indication: Renal insufficiency On: :05 Request Metabolic Panel, Basic (55046)Indication: Renal insufficiency On: 61-Hue-639327:03 Request Urinalysis, Office (32258)Indication: Cystitis, acute On: 71-Yzy-828111:37 Request URINE LIBORIO CULTURE-CASPER COL COUNT (52083)Indication: Cystitis, acute On: :37 Request CBC, Platelets & Auto Diff (44269)Indication: Cramp in limb On: 49-Eda-020631:44 Request Vitamin B-12 (cyanocobalamin) (07188)Indication: Cramp in limb On: :44 Request Metabolic Panel, Comprehensive (19743)Indication: Cramp in limb On: 26-Kvv-911532:44 Request METABOLIC PANEL, COMPREHENSIVE (47891)Indication: Diabetes mellitus type II, controlled On: 5-Puh-562964:50 Request LIPID PANEL (86420)Indication: Diabetes mellitus type II, controlled On: 2-Cbg-676200:50 Request Comments: in three months (approximately) PSA (PROSTATE SPECIFIC ANTIGEN) (V76.44)Indication: Diabetes mellitus type II, controlled On: :30 Request CBC WITH MANUAL DIFF (57848)Indication: Diabetes mellitus type II, controlled On: :29 Request MICROALBUMIN: CREATININE RATIO (16085) AND (96127)Indication: Diabetes mellitus type II, controlled On: :29 Request Metabolic Panel, Basic (82170)Indication: Diabetes mellitus type II, controlled On: :29 Request MICROALBUMIN: CREATININE RATIO (94862) AND (83302)Indication: Diabetes mellitus type II, controlled On: 39-Rju-076626:53 Request METABOLIC PANEL, COMPREHENSIVE (48334)Indication: Diabetes mellitus type II, controlled On: 87-Mzf-811777:53 Request LIPID PANEL (47169)Indication: Diabetes mellitus type II, controlled On: 26-Bnu-084991:53 Request CBC WITH MANUAL DIFF (09757)Indication: Diabetes mellitus type II, controlled On: 62-Hgw-014554:53 Request Comments: in three months (approximately) PSA (PROSTATE SPECIFIC ANTIGEN) (V76.44)Indication: Well Male On: :32 Request MICROALBUMIN: CREATININE RATIO (71569) AND (03220)Indication: Diabetes mellitus type II, controlled On: :32 Request METABOLIC PANEL, COMPREHENSIVE (09581)Indication: Diabetes mellitus type II, controlled On: :32 Request CBC WITH MANUAL DIFF (91930)Indication: Diabetes mellitus type II, controlled On: :32 Request LIPID PANEL (21802)Indication: Diabetes mellitus type II, controlled On: :32 Request URINALYSIS W/O MICRO (69705)Indication: Cardiomyopathy On: :22 Request Metabolic Panel, Basic (46667)Indication: Hypertension On: 55-Nhd-457234:12 Request Comments: sept CBC (Auto) (35839)Indication: Diabetes mellitus type II, controlled On: 0-Giu-429103:10 Request Metabolic Panel, Comprehensive (09968)Indication: Diabetes mellitus type II, controlled On: 9-Jiv-853820:10 Request MICROALBUMIN: CREATININE RATIO (26011) AND (66728)Indication: Diabetes mellitus type II, controlled On: 4-Urw-710255:12 Request CBC WITH MANUAL DIFF (65513)Indication: Diabetes mellitus type II, controlled On: 6-Itm-539494:12 Request Comments: in three months (approximately) METABOLIC PANEL, COMPREHENSIVE (48337)Indication: Diabetes mellitus type II, controlled On: 2-Spk-671877:12 Request LIPID PANEL (37800)Indication: Hypertension On: :08 Request METABOLIC PANEL, COMPREHENSIVE (81056)Indication: Hypertension On: :08 Request METABOLIC PANEL, BASIC (08399)Indication: Acute renal failure, unspecified acute renal failure type On: 2-Bir-615533:01 Request Comments: with next blood draw PSA (PROSTATE SPECIFIC ANTIGEN) (52761)Indication: Encounter for health maintenance examination with abnormal findings On: :55 Request Comments: after 09-20-06 MICROALBUMIN 24 HOUR OR RANDOM (76914)Indication: DIABETIC NEPHROPATHY On: :49 Request CREATININE CLEARANCE (44141)Indication: DIABETIC NEPHROPATHY On: :49 Request Planned Encounters Medical; MICHAEL [facility] visit - On: 07-Nov-2018 15:30 [facility] Anabella Núñez MD, MD, Dana M Planned Procedures ELECTROCARDIOGRAM, COMPLETE (ECG) On: 17-Sep-2018 Intent (65902)By: Anabella Núñez MD Comments: see scanned document of test done to see results reviewed today with patient Anabella ROGERS INFUSION OF 0.9% SODIUM CHLORIDE On: 25-Apr-2018 Intent SOLUTION (20872)By: Anabella Núñez MD Comments: lot:[id number]:rte:IV right anticub dose:250ccgiven by:aaliyah KAMARA ABN signedER, Anabella Ibanez MD ELECTROCARDIOGRAM, COMPLETE (ECG) On: 25-Apr-2018 Intent (58256)By: Anabella Núñez MD Comments: see scanned document of test done to see results reviewed today with patient Anabella ROGERS INFUSION, NORMAL SALINE SOLUTION , On: 18-Jan-2018 Intent 1000 CC (Special Coverage Instructions Comments: lot:[id number]:01/15rte:IV dose: 500ml sodium chloride given by: aaliyah left fore arm ABN signedER, [employer] Apply. See MCM: 2049) (J7030)By: Anabella Núñez MD, MD, Dana M Radiology - Chest- PA and LatBy: Fast On: 09-Jan-2018 Intent Delisa BARFIELD Comments: stat call results Spirometry (96636)By: Delisa Gordon DO On: 06-Jun-2017 Intent A Comments: good effort and curve with decrease in small airways Radiology - Chest- PA and LatBy: Fast On: 06-Jun-2017 Intent Delisa BARFIELD Comments: stat call rsutls Ultrasound - RenalBy: Anabella Núñez MD On: 06-Sep-2016 Intent Anabella Tirado MD Aerosol Treatment (95253)By: Mynor On: 15-Feb-2016 Intent Daria LION Radiology - ChestBy: Daria Lowe CNP On: 13-Sep-2015 Intent Solu -Medrol Injection, 125 mg On: 13-Sep-2015 Intent (J2930)By: aDria Lowe CNP Comments: lot:[id number]:12/2017route:IMdose:125mgsite:SMA Nahomy Aerosol Treatment (68330)By: Mynor On: 13-Sep-2015 Intent AYAD Simona Comments: patient tolerated well Aerosol Treatment (69508)By: Niya On: 07-Sep-2015 Intent Anabella ROGERS MD, Dana M Prevnar 13 (87011)By: Niya ROGERS, On: 16-Oct-2014 Intent Anabella Turcios MD ADMINISTRATION OF INFLUENZA VIRUS On: 04-Aug-2014 Intent VACCINE (G0008)By: Visit, Nurse Comments: Lot #[id number]-L dltd, IMDose prefilled syringegiven by:jmVIS and ABN signed FLU VAC, SPLIT, >3 YEARS, INTRAMUSC On: 04-Aug-2014 Intent (79346)By: Visit, Nurse Radiology - ChestBy: Anabella Núñez MD On: 20-Jan-2014 Intent Anabella Tirado MD Aerosol Treatment (94410)By: Niya On: 20-Jan-2014 Intent Anabella ROGERS MD, Dana M Eprescribed prescriptions (G8553)By: On: 20-Jan-2014 Intent Anabella Núñez MD, MD, Dana M FLU VAC, SPLIT, >3 YEARS, INTRAMUSC On: 10-Jul-2013 Intent (87795)By: MATILDA Hernandez Comments: Lot #:[id number] date:04.11Amount given:0.5mlRoute: IMSite given:L DltdGiven by: VIS and ABN signed ADMINISTRATION OF INFLUENZA VIRUS On: 10-Jul-2013 Intent VACCINE (G0008)By: MATILDA Hernandez Eprescribed prescriptions (G8553)By: On: 11-Dec-2012 Intent Delisa Gordon DO Pulse Oximetry (66030)By: Evan BARFIELD, On: 11-Dec-2012 Intent Delisa Monte Comments: 98 Spirometry (55028)By: Delisa Gordon DO On: 11-Dec-2012 Intent Lavell Comments: good effort and curve normal Radiology - Chest- PA and LatBy: Fast On: 11-Dec-2012 Delisa Pittman DO Comments: call wet read Eprescribed prescriptions (G8553)By: On: 18-Nov-2012 Intent La Nena Nicole DO TDAP VACCINE >7 IM (57313)By: David On: 20-Feb-2012 Intent MATILDA Comments: Lot #:[id number] date:59-76-15Fgaemt given:0.5mlRoute: IMSite given:right deltoid Given by: aaliyah kamara Pulse Oximetry (09204)By: Mynor LION, On: 17-Oct-2011 Intent Simona Aerosol Treatment (22281)By: Mynor On: 17-Oct-2011 Intent CHALKER SOLES, Simona FLU VAC, SPLIT, >3 YEARS, INTRAMUSC On: 08-Aug-2011 Intent ([id number])By: Diana Caballero RN Comments: Lot #: [id number] date: ount given: 0.5 mlRoute: IMSite given: left deltoidGiven by: BEKA Dc ADMINISTRATION OF INFLUENZA VIRUS On: 08-Aug-2011 Intent VACCINE (G0008)By: Diana Caballero RN Radiology - Hip - BilateralBy: Niya On: 13-Oct-2010 Intent Anabella ROGERS MD, Dana M Spirometry ([id number])By: Niya ROGERS, On: 13-Oct-2010 Intent Anabella Turcios MD Pulse Oximetry ([id number])By: Niya ROGERS, On: 13-Oct-2010 Intent Anabella Turcios MD FLU VAC, SPLIT, >3 YEARS, INTRAMUSC On: 05-Sep-2010 Intent ([id number])By: Dasha Ramirez LPN Comments: Lot #[id number]-right deltoidgiven by:[facility] ADMINISTRATION OF INFLUENZA VIRUS On: 05-Sep-2010 Intent VACCINE (G0008)By: Dasha Ramirez LPN Renal DopplerBy: Anabella Núñez MD On: 23-May-2010 Intent Anabella Núñez MD Ultrasound - TesticularBy: Mynor LION, On: 10-May-[address] - Abdomen & Pelvis (IV Contrast On: 09-May-2010 Intent Needed)By: Daria Lowe CNP Comments: today call wet read to [facility] ADMINISTRATION OF INFLUENZA VIRUS On: 26-Jul-2009 Intent VACCINE (G0008)By: Anabella Núñez MD Comments: lot # [id number] 0.5ML Tolerated well Anabella Da Silva MA, MD FLU VAC, SPLIT, >3 YEARS, INTRAMUSC On: 26-Jul-2009 Intent ([id number])By: Anabella Núñez MD, MD, Dana M EKG ([id number])By: Gabriela Douglas On: 19-Jun-2008 Intent EsophagramBy: Anabella Núñez MD On: 20-Nov-2007 Intent Anabella Núñez MD Inhaler Demonstration ([id number])By: On: 02-Oct-2007 Intent Daria Lowe CNP Pulse Oximetry ([id number])By: Mynor LION, On: 02-Oct-2007 Intent Daria Otto Aerosol Treatment ([id number])By: Mynor On: 02-Oct-2007 Intent Daria LION Six Minute Walk Assessment ([id number])By: On: 27-Feb-2007 Intent Dhara Oquendo LPN Comments: ABN signed Inhaler Demo ([id number])By: Delisa Gordon DO On: 18-Feb-2007 Intent A Pulse Oximetry ([id number])By: DILSHAD LION, On: 31-Jan-2007 Intent MARIO Comments: 96% Aerosol Treatment ([id number])By: DILSHAD On: 31-Jan-2007 Intent MARIO LION Solu- Medrol Injection, 125mg On: 31-Jan-2007 Intent ([id number])By: MARIO YUNG CNP Aerosol Treatment ([id number])By: Evan BARFIELD On: 28-Jan-2007 Intent Delisa Monte Inhaler Demo ([id number])By: Delisa Gordon DO On: 28-Jan-2007 Intent A Radiology - Chest- PA and LatBy: Evan On: 28-Jan-2007 Intent Delisa BARFIELD Spirometry ([id number])By: Delisa Gordon DO On: 28-Jan-2007 Intent Lavell Comments: good effort and curve- mild obstruction Pulse Oximetry ([id number])By: Gene, On: 28-Jan-2007 Intent Rolanda Comments: ins waiver [id number] initially - after tx was 95 Planned [...] for health maintenance examination with abnormal findings IA (myocardial infarction) : How to access health information online Indication: IA (myocardial infarction) IA (myocardial infarction) : How to access health information online - Detail Indication: IA (myocardial infarction) IA (myocardial infarction) : Patient Instructions Indication: IA (myocardial infarction) Allergic rhinitis : Patient Instructions [...] CHF (congestive heart failure), Abnormal laboratory test, IA (myocardial infarction) , Sensorineural hearing loss (SNHL) [...] Erectile dysfunction, Memory loss, Subdural hemorrhage, Nonsmoker, IA (myocardial infarction), Peripheral vascular disease, CKD (chronic [...] both ears, Memory loss, Abnormal laboratory test, IA (myocardial infarction), Erectile dysfunction, Peripheral vascular disease, [...] alcohol, Diabetes mellitus with chronic kidney disease, IA (myocardial infarction), Uncoordinated movements, Memory loss, Obesity, [...] Historical Summary On: 18-Apr-2017 9:33 Encounter Diagnosis: IA (myocardial infarction) End: 18-Apr-2017 9:36 Comprehensive Internal [...] syndrome), Uncoordinated movements, Hyperplasia, prostate, Macrocytosis, Hypertension, IA (myocardial infarction), Hypothyroid, Erectile dysfunction, Allergic rhinitis, [...] patient does h ave durable power of trust and estates attorney and living will. The patient has noticed thinking most people are better off than them (due to heart concerns) and nothing from the geriatic depression scale. Other provide rs contributing to the patient's care are court bailiff (fritz) and other: (Divina, kidney). Encounter Diagnosis: BMI 30.0-30.9,adult, Hyperplasia, prostate, IA (myocardial infarction), Allergic rhinitis, Macrocytosis, Cardiomyopathy, Obstructive [...] Testicular hypofunction, Hypothyroid, Erectile dysfunction, Allergic rhinitis, IA (myocardial infarction), Hyperplasia, prostate, Macrocytosis, Gum hyperplasia, [...] failure), Obesity, RLS (restless legs syndrome) , IA (myocardial infarction), Testicular hypofunction, Gum hyperplasia, BMI [...] - Reason for ER visit: note: (had IA in [place] ). The patient feels well [...] Hospital procedures performed were heart catherization.Encounter Diagnosis: IA (myocardial infarction), History of tobacco abuse, Cardiac [...] The patient does have durable power of trust and estates attorney and living will. The patient has noticed lack of energy. Other providers contributing to the patient's care are court bailiff (Fritz), gastrologist (Dr. Small ) and other: [...] Internal Medicine End: 03-Jul-2006 11:43 Payers [employer]/MedicareJAMES KAPP; lavell guarantor
== END 2018-12-01 11:15 | disposition home health service (06) | DRG 948 ==
PROVIDERS: Admitting Provider Family Medicine Geriatric Medicine; Family Provider Internal Medicine; PCP Internal Medicine; Referring Provider Family Medicine Geriatric Medicine; Visit Provider Family Medicine Geriatric Medicine
DX: R53.81 Other malaise (principal); I13.0 Hypertensive heart and chronic kidney disease with heart failure and stage 1 through stage 4 chronic kidney disease, or unspecified chronic kidney disease; I50.22 Chronic systolic (congestive) heart failure; N18.4 Chronic kidney disease, stage 4 (severe); I25.10 Atherosclerotic heart disease of native coronary artery without angina pectoris; E11.22 Type 2 diabetes mellitus with diabetic chronic kidney disease; Z23 Encounter for immunization; I25.2 Old myocardial infarction; G47.33 Obstructive sleep apnea (adult) (pediatric); I48.2 Chronic atrial fibrillation; G40.909 Epilepsy, unspecified, not intractable, without status epilepticus; E78.5 Hyperlipidemia, unspecified; K21.9 Gastro-esophageal reflux disease without esophagitis; E03.9 Hypothyroidism, unspecified; E11.65 Type 2 diabetes mellitus with hyperglycemia; Z87.891 Personal history of nicotine dependence; G25.81 Restless legs syndrome; E87.6 Hypokalemia; Z95.1 Presence of aortocoronary bypass graft; Z95.810 Presence of automatic (implantable) cardiac defibrillator
CPT/HCPCS: 36415; 76705; 80048; 82105; 82140; 82962; 85025; 90732; 94640; 97110; 97116; 97162; 97166; 97530; 97535; 97802; G0009

== ENCOUNTER 2018-12-24 19:44 | Observation (INO) | payer MEDICARE, SELFPAY ==
[2018-11-15 16:11] VITALS: BMI 29.8
[2018-12-24 19:46] VITALS: BP 91/72; PULSE 80; RESP 16; TEMP 36.4; O2SAT 100; BMI 29.2
[2018-12-24 20:13] VITALS: BP 95/75; PULSE 79; RESP 17; O2SAT 99
--- NOTE | 2018-12-24 20:50 | EKG12_ITS ---
Test Reason : WEAKNESS Blood Pressure : / mmHG Vent. Rate : 080 BPM Atrial Rate : 078 BPM P-R Int : 000 ms QRS Dur : 184 ms QT Int : 488 ms P-R-T Axes : 000 -59 116 degrees QTc Int : 562 ms Ventricular-paced rhythm Biventricular pacemaker detected Abnormal ECG Confirmed by AYO ROGERS, CORIRNA ([id number]), video effects editor YVES OLSEN ([id number]) on 12/26/2018 3:44:58 PM Referred By: ERAN Confirmed By:CORRINA ROLLINS MD
--- NOTE | 2018-12-24 20:53 | CT_ITS ---
STUDY: CT BRAIN WITHOUT CONTRAST REASON FOR EXAM: Male, 78 years old. Craniotomy. Seizures RADIATION DOSAGE (If Supplied By Facility): CTDIvol = ( 44.99 ) mGy, DLP = ( 796.11 ) mGycm TECHNIQUE: Transaxial CT imaging of the brain was performed without administration of intravenous contrast material. Individualized dose optimization techniques were used for this CT. COMPARISON: November 12, 2018 FINDINGS: Left frontotemporal craniotomy. Normal calvarium. There is mild cerebral atrophy with widening of the extra-axial spaces and ventricular dilatation. There are areas of decreased attenuation within the white matter tracts of the supratentorial brain, consistent with microvascular disease changes. Normal basal ganglia and thalami. Normal brainstem. There is mild cerebellar atrophy. There is no intracranial hemorrhage. There are no findings of an acute ischemic infarction. There is mucoperiosteal inflammatory disease of the paranasal sinuses consistent with mild chronic sinusitis. CT/Brain/Head without Contrast IMPRESSION: Chronic involutional changes of the brain. Electronically Signed: Gianni Espinal MD at 22:16 EST , Service support ,
--- NOTE | 2018-12-24 21:08 | RAD_ITS ---
STUDY: X-RAY CHEST REASON FOR EXAM: Male, 78 years old. Weakness TECHNIQUE: Single AP portable view of the chest. COMPARISON: November 12, 2018. FINDINGS: Pacemaker device on the left is stable. There are monitoring devices The lungs are clear and expanded. There is no demonstrated pleural abnormality. Sternal cerclage wires are present from a prior sternotomy. There is cardiac enlargement. Normal mediastinum and jessy. Normal visualized pulmonary arteries. Normal visualized aortic arch and descending thoracic aorta. There is demineralization of the osseous structures. Normal visualized ribs, clavicles, and shoulders. There is no demonstrated abnormality of the visualized soft tissue structures of the upper abdomen. RAD/Chest 1 View (Portable) IMPRESSION: Cardiac enlargement. No focal infiltrate. Electronically Signed: Gianni Espinal MD at 21:43 EST , Service support ,
[2018-12-24 21:23] LABS: Absolute Lymphocyte Count 1.01 X10^3/ul (0.83-4.51); Absolute Neutrophil Count 7.6 X10^3/uL (2.0-7.7); Basophil# 0.02 X10^3/uL; Basophil% 0.2 % (0-1); Eosinophil# 0.09 X10^3/uL; Eosinophils% 0.9 % (0-5); Hematocrit 38.5 % (40-54); Hemoglobin 13.4 g/dl (13.0-16.5); Lymphocyte # 1.01 X10^3/ul (4.0); Lymphocyte % 10.5 % (19-41); Mean Corp Hgb Conc 34.8 g/gl (32-36); Mean Corpuscular Hgb 34.4 pg (27.0-32.0); Mean Platelet Vol. 11.6 fl (6.2-12.0); Monocyte# 0.92 X10^3/uL; Monocyte% 9.5 % (0-10); Neutrophil # 7.59 X10^3/uL (2.7-7.7); Neutrophil % 78.7 % (47-70); Platelet Count 132 K/mm3 (150-450); RBC Distribution Width CV 14.5 % (11.6-14.6); RBC Distribution Width SD 51.1 fl (35.1-43.9); Red Blood Count 3.89 M/mm3 (4.6-6.2); White Blood Count 9.7 K/mm3 (4.4-11.0)
[2018-12-24 21:28] LABS: POSITIVE COUNT NO; POSITIVE DIFFERENTIAL NO; POSITIVE MORPHOLOGY NO
[2018-12-24 21:37] LABS: ALB/GLOB Ratio 0.9 RATIO (0.9-2.4); AST(SGOT) 31 U/L (15-37); Alanine Aminotransfer ALT/SGPT 21 U/L (16-61); Albumin, Serum 3.7 g/dL (3.2-5.0); Alkaline Phosphatase 175 U/L (45-117); Anion Gap 10 (5-15); BUN 52 mg/dL (7-18); BUN/Creat Ratio 27.4 RATIO (10-20); Calcium,Total 9.3 mg/dL (8.5-10.1); Chloride 98 mmol/L (98-107); EST Glomerular Filtration Rate 37 mL/min (>60); Est Glom Filt Rate - Afr Amer 44 mL/min (>60); Estimated Creatinine Clearance 29.96 ml/min; Globulin 4.3 g/dL (2.2-4.2); Glucose 115 mg/dL (74-106); Lipase 185 U/L (73-393); Potassium 4.9 mmol/L (3.5-5.1); Sodium Level 130 mmol/L (136-145)
[2018-12-24 22:00] VITALS: BP 103/65; PULSE 80; RESP 14; O2SAT 97
[2018-12-24] MEDS: 0.9% Normal Saline 1,000 ML 1000 ML IV (22:32)
--- NOTE | 2018-12-24 22:32 | ED.DCSUM_ITS ---
- ER Visit Summary Date of Service: 12/24/18 Chief Complaint: Weakness History of Present Illness: The patient is a 78 M who presents with weakness and unsteady gait exam that began yesterday. Family states that his gait has progressively gotten worse. Family states that the patient is has gotten more shortness of breath today. Family states that the patient has a history of tremors but states these are worse today. Family states patient has a history of elevated ammonia levels. Family states patient has had some episodes of confusion today. Patient denies any chest pain. Patient admits to some nausea and vomiting. Physical Examination: Vital signs are stable. Patient is afebrile. Patient is in no acute distress. Pupils are equal, round, reactive to light bilaterally. Extraocular muscles are intact. There is no scleral icterus noted. Oral mucosa is pink and moist. Neck is supple. Trachea is midline. There is no JVD noted. Heart was regular rate and rhythm. Lungs are clear and equal bilaterally. There is adequate respiratory effort noted. Abdomen is soft. Bowel sounds are normal. Cranial nerves II through XII are intact. There are no focal motor or sensory deficits noted. Test Results: EKG showed a paced rhythm with a rate of 80. There is a left bundle branch block pattern noted. PA and lateral chest x-ray shows cardiomegaly but no acute infiltrate. CT scan of the brain was obtained there are chronic changes but no acute process. CBC showed a mild anemia with a hemoglobin of 13.4 and hematocrit 38.5. Platelets were slightly low at 132. Creatinine was 1.9 which is slightly increased from previous result. Ammonia level was also slightly elevated from previous result at 46. Emergency Department Course and Treatment: Patient was given IV fluids here. Patient was given a dose of his normal Requip here. Case was discussed with the hospitalist. Patient will be admitted for observation. Disposition: Admit for observation Impression: 1. Generalized weakness 2. Hepatic encephalopathy This note was generated with [employer] software. It may contain incorrect words, spelling, and punctuation that were not noted in review of the chart prior to signing ED Disposition - Plan for ED Patient: Disposition: Acute Care [facility] Diagnosis: General weakness, Hepatic encephalopathy Referrals: Anabella Lomax MD [Primary Care Provider] -
[2018-12-24] MEDS: Lactulose 20 GM/30 ML UDC PO (22:38)
[2018-12-24 23:25] VITALS: BMI 28.5
[2018-12-24 23:55] VITALS: BP 119/76; PULSE 86; RESP 16; TEMP 36.6; O2SAT 97; BMI 28.5
[2018-12-25] VITALS (9 sets, daily range): BP systolic 83–103; BP diastolic 46–69; PULSE 79–90; RESP 16–18; TEMP 36.3–36.9; O2SAT 95–100
[2018-12-25] MEDS: Levothyroxine 50 MCG Tablet PO (05:14)
[2018-12-25] MEDS: Heparin Injection (Vial) 5,000 UNIT/ML VIAL 5000 UNIT SC ×3 (05:14→21:47)
[2018-12-25] MEDS: Mexiletine 150 MG Capsule PO ×3 (05:14→21:47)
[2018-12-25 06:51] LABS: Bedside Glucose 115 mg/dL (70-110)
[2018-12-25] MEDS: Glucerna Shake 120 ML LIQUID PO ×3 (08:38→17:10)
[2018-12-25] MEDS: Aspirin E.C. 81 MG Tablet PO (08:40)
[2018-12-25] MEDS: Magnesium Oxide 400 MG Tablet PO (10:09)
[2018-12-25] MEDS: Ranolazine 500 MG Tablet 1000 MG PO ×2 (10:09→21:47)
--- NOTE | 2018-12-25 10:09 | CASEMGMT ---
Addendum entered by Aleta Valladares 12/25/18 10:13: SW called Fabiola in TCU and put pt on TCU list. Original Note: Social Work Note SW familiar with pt from recent admissions to [facility]. SW met with pt to confirm discharge plans. SW introduced self and role at [facility]. PT's and son Darrel present in room. Pt gave this worker permission to speak to him in front of his guest. Pt confirms that he was recently at [facility] and was able to walk up until yesterday. Pt confirms that he was set up with [facility]. SW asked pt about discharge plans. Pt asked his son Darrel his opinion on discharge. Darrel states that he would like pt to work with PT/OT to determine how pt is able to move today. Darrel states that if pt is moving well then he would like pt to return home with [facility]. Pt's stated that if pt needs SNF then she would like pt to return to TCU. SW explained that this worker will put pt on TCU list in the event pt needs SNF at discharge. SW to follow up with pt once pt works with PT/OT to determine appropriate discharge. Plan: Home with HHC vs. SNF Aleta Valladares ROAD TEST EXAMINER, RADIO BOARD OPERATOR
[2018-12-25] MEDS: SACUBITRIL/VALSARTAN 97-103 MG TABLET 1 EACH PO (10:10)
[2018-12-25] MEDS: LINAGLIPTIN 5 MG TABLET PO (10:10)
[2018-12-25] MEDS: rifAXIMin 550 MG Tablet PO ×2 (10:12→21:47)
[2018-12-25] MEDS: Menthol/Lanolin/Calamine/Znox 113 GM Tube 1 APPLIC TOPICAL ×2 (10:12→21:48)
[2018-12-25] MEDS: levETIRAcetam 1,000 MG Tablet 1000 MG PO ×2 (10:12→21:47)
--- NOTE | 2018-12-25 10:36 | CASEMGMT ---
Social Work Note Healthcare Living Will on file, General Power of Manager Enrollment on file but no healthcare POA. Aleta Valladares BIBLICAL STUDIES PROFESSOR, PUPIL PERSONNEL WORKER
[2018-12-25 10:56] LABS: Bedside Glucose 137 mg/dL (70-110)
--- NOTE | 2018-12-25 13:41 | PCM.PROGNOTE ---
<Mayito Cha - Last Filed: 12/25/18 13:41> Patient Problems: Active and Suspected Problems (Last Reviewed 11/04/18 @ 15:55 by Ana Cristina Cobos) Hepatic encephalopathy (Acute) Generalized weakness (Acute) Subjective: Pt resting comfortably in chair at bedside. No acute issues. No SOB/cough, nausea/vom/diarrhea. Pt was doing very well with home PT and OT until yesterday he suddenly became weaker and could not stand on his own. Pt thinks he was not drinking enough water at home. He also states he has not really been eating much other than his premier protein drinks. Poor appetite. Discussed with him and his and son the importance of ongoing PT, and the importance of good nutrition. He does not want to start anymore pills currently. Pt stopped taking courtney 2/2 gerd - does not want medication for this as this is the only thing that causes it and he simply switched to a different brand. He walked well with therapy today. - Physical Exam General: Alert, Oriented x3, Cooperative HEENT: Atraumatic, PERRLA, EOMI, Normocephalic Neck: Supple, No JVD, Negative Carotid Bruits Lungs: Clear to auscultation, Normal air movement Cardiovascular: Regular rate, No murmurs Abdomen: Bowel Sounds Present, Soft, Non Tender Extremities: No edema, Capillary Refill Less than 3 Seconds Skin: No rashes, No breakdown Musculoskeletal: No Tenderness to Palpation of Joints or Extremities Neurological: Cranial nerves II-XII grossly intact Psych/Mental Status: Normal Affect, Appropriate, Alert and oriented to time, place, person, mood and affect Vital Signs Temp Pulse Resp BP Pulse Ox 98 F 88 16 87/53 L 97 12/25/18 13:18 12/25/18 13:18 12/25/18 13:18 12/25/18 13:18 12/25/18 13:18 Oxygen Delivery Method Room Air Weight: 181 lb 14.102 oz Body Mass Index (BMI) 28.5 Finger Stick Blood Glucose 249 Orthostatic Vital Signs Start: 12/25/18 10:35 Freq: q24h Status: Active Protocol: Activity Type Activity Date Activity User E-Sign Co-Sign Detail Recorded Client Recorded Date Recorded By Document 12/25/18 10:36 [id number] 12/25/18 10:40 12/25/18 10:36 Orthostatic Vitals Standing -Blood Pressure (90/60-120/80) 83/46 L -Extremity Use Right Arm -Pulse Rate (60-100) 83 Sitting -Blood Pressure (90/60-120/80) 91/54 L -Extremity Use Right Arm -Pulse Rate (60-100) 83 Lying -Blood Pressure (90/60-120/80) 84/53 L -Extremity Use Right Arm -Pulse Rate (60-100) 80 Intake and Output for Last 24 Hours 12/23/18 12/24/18 12/25/18 23:59 23:59 23:59 Intake Total 996 / 996 Output Total 600 / 600 Balance 396 / 396 Laboratory Tests Past 24 Hrs 12/24/18 12/24/18 12/24/18 20:30 20:30 21:36 WBC 9.7 RBC 3.89 L Hgb 13.4 Hct 38.5 L MCV 99.0 H MCH 34.4 H MCHC 34.8 RDW 14.5 RDW Differential 51.1 H Plt Count 132 L MPV 11.6 Immature Gran % (Auto) 0.200 Neut % (Auto) 78.7 H Lymph % (Auto) 10.5 L Lanier % (Auto) 9.5 Eos % (Auto) 0.9 Baso % (Auto) 0.2 Absolute Neuts (auto) 7.6 Absolute Lymphs (auto) 1.01 Total Counted Not Reportable Sodium 130 L Potassium 4.9 Chloride 98 Carbon Dioxide 22.0 Anion Gap 10 BUN 52 H Creatinine 1.90 H Estim Creat Clear Calc 29.96 Est GFR (MDRD) Af Amer 44 L Est GFR (MDRD) Non-Af 37 L BUN/Creatinine Ratio 27.4 H Glucose 115 H Calcium 9.3 Total Bilirubin 0.90 AST 31 ALT 21 Alkaline Phosphatase 175 H Ammonia 46.0 H Total Protein 8.0 Albumin 3.7 Globulin 4.3 H Albumin/Globulin Ratio 0.9 Lipase 185 POC Glucose 12/25/18 12/25/18 10:49 06:44 POC Glucose 137 H 115 H Medical Necessity - Tobacco Use Smoking Status: Former smoker Assessment/Plan All Active Problems (Last Reviewed 11/04/18 @ 15:55 by Ana Cristina Cobos) Acute encephalopathy (Acute) Dehydration (Acute) Acute delirium (Acute) Hepatic encephalopathy (Acute) Acute on chronic kidney failure (Acute) Hyperammonemia (Acute) History of cardiac radiofrequency ablation (Resolved ~10/04/18) Epiploic appendagitis (Acute) Generalized weakness (Acute) Episode of syncope (Acute) Bronchitis (Acute) Aortocoronary bypass status (Resolved) 1. Generalized weakness 2/2 dehydration - continue IV fluids. BUN and Cr somewhat higher than baseline. No SOB and no LE edema. PTOT. Recently DC'd from TCU and by home PT/OT. Decrease entresto to half at DC and PCP to titrate back up. He does have mild hyponatremia, which he has had in the past, possibly 2/2 loop diuretics and poor oral intake. He needs to improve his diet. Grievance And Appeals Specialist to see while here, needs to continue supplements but also improve his intake at normal meals. 2. Hx hepatic encephalopathy 2/2 cirrhosis - ammonia not significantly elevated and pt is not confused. Continue xifaxan. 3. Hx Seizure - keppra 4. CKD IV - on fluids. trend overnight. 5. CAD with prior CABG - continue home meds 6. HTN - stable 7. Hx PAF/ chronic systolic CHF and ischemic CM - has AICD - continue home meds, diuretics held. Appears dry. 8. T2DM - SSI 9. XOCHITL - CPAP 10. Hypothyroid - synthroid DVT ppx: heparin DC planning: PTOT, home tomorrow if stable This patient was seen by Mayito Cha PA-C under the supervision of Doctor Garo. <Sherry Wyman - Last Filed: 12/25/18 14:45> - Physical Exam Vital Signs Temp Pulse Resp BP Pulse Ox 98 F 90 16 87/53 L 97 12/25/18 13:18 12/25/18 13:55 12/25/18 13:18 12/25/18 13:18 12/25/18 13:18 Oxygen Delivery Method Room Air Weight: 181 lb 14.102 oz Body Mass Index (BMI) 28.5 Finger Stick Blood Glucose 249 Orthostatic Vital Signs Start: 12/25/18 10:35 Freq: q24h Status: Active Protocol: Activity Type Activity Date Activity User E-Sign Co-Sign Detail Recorded Client Recorded Date Recorded By Document 12/25/18 10:36 [id number] 12/25/18 10:40 MH 12/25/18 10:36 Orthostatic Vitals Standing -Blood Pressure (90/60-120/80) 83/46 L -Extremity Use Right Arm -Pulse Rate (60-100) 83 Sitting -Blood Pressure (90/60-120/80) 91/54 L -Extremity Use Right Arm -Pulse Rate (60-100) 83 Lying -Blood Pressure (90/60-120/80) 84/53 L -Extremity Use Right Arm -Pulse Rate (60-100) 80 Intake and Output for Last 24 Hours 12/23/18 12/24/18 12/25/18 23:59 23:59 23:59 Intake Total 996 / 996 Output Total 600 / 600 Balance 396 / 396 Laboratory Tests Past 24 Hrs 12/24/18 12/24/18 12/24/18 20:30 20:30 21:36 WBC 9.7 RBC 3.89 L Hgb 13.4 Hct 38.5 L MCV 99.0 H MCH 34.4 H MCHC 34.8 RDW 14.5 RDW Differential 51.1 H Plt Count 132 L MPV 11.6 Immature Gran % (Auto) 0.200 Neut % (Auto) 78.7 H Lymph % (Auto) 10.5 L Lanier % (Auto) 9.5 Eos % (Auto) 0.9 Baso % (Auto) 0.2 Absolute Neuts (auto) 7.6 Absolute Lymphs (auto) 1.01 Total Counted Not Reportable Sodium 130 L Potassium 4.9 Chloride 98 Carbon Dioxide 22.0 Anion Gap 10 BUN 52 H Creatinine 1.90 H Estim Creat Clear Calc 29.96 Est GFR (MDRD) Af Amer 44 L Est GFR (MDRD) Non-Af 37 L BUN/Creatinine Ratio 27.4 H Glucose 115 H Calcium 9.3 Total Bilirubin 0.90 AST 31 ALT 21 Alkaline Phosphatase 175 H Ammonia 46.0 H Total Protein 8.0 Albumin 3.7 Globulin 4.3 H Albumin/Globulin Ratio 0.9 Lipase 185 POC Glucose 12/25/18 12/25/18 10:49 06:44 POC Glucose 137 H 115 H Assessment/Plan Patient seen by Mayito Cah PA-C under my supervision. Was admitted from complaint of generalized weakness. He had recently been discharged from the TCU and had been fairly ambulant at home. Started experiencing severe weakness yesterday and was brought in and is been managed for debility likely worsened by dehydration. Of note, patient also has cirrhosis and his ammonia level was around. Hepatic encephalopathy was therefore thought to be contributing somewhat to the increased weakness. He had been having nausea and vomiting and so his lactulose was not continued at time of admission. Patient seen and examined this morning. He feels better and has no complaints. Review of systems otherwise negative. o/e: Vital Signs Height 5 ft 7 in Weight: 181 lb 14.102 oz Weight in Pounds 181.9 lbs Pulse Ox 97 Temperature 98 F Pulse Rate [Standing] 83 Pulse Rate [Sitting] 83 Pulse Rate [Lying] 80 Pulse Rate 90 Respiratory Rate 16 Blood Pressure [Standing] 83/46 Blood Pressure [Sitting] 91/54 Blood Pressure [Lying] 84/53 Blood Pressure 87/53 Blood Pressure Position Supine General: Alert, Oriented x3, Cooperative HEENT: Atraumatic, PERRLA, EOMI, Normocephalic Neck: Supple, No JVD, Negative Carotid Bruits Lungs: Clear to auscultation, Normal air movement Cardiovascular: Regular rate, No murmurs Abdomen: Bowel Sounds Present, Soft, Non Tender Extremities: No edema, Capillary Refill Less than 3 Seconds Skin: No rashes, No breakdown Musculoskeletal: No Tenderness to Palpation of Joints or Extremities Neurological: Cranial nerves II-XII grossly intact Psych/Mental Status: Normal Affect, Appropriate, Alert and oriented to time, place, person, mood and affect Plan is continue management for debility and dehydration. Of note, patient was noted to be hypotensive with blood pressure going down to the 80s systolic. Patient was put on gentle hydration with IV fluids and blood pressure medications on hold. Of note, I discussed patient with his primary care doctor Dr. Lomax. According to her, she had been titrating patient's dose of Entresto upwards because he had had issues with heart failure and edema. He has had episodes of dehydration and she would have to cut down on his Entresto dose and then titrate back up once again. His dose had recently been increased to the 97-103 mg dose. Plan currently is to hold medications as he is hypotensive and to resume Entresto at half its current dose. He will have to follow-up with his primary care doctor for titration of Entresto as needed. PT OT to see patient to deem his fitness for skilled therapy. Rest of management as per Mayito Cha PA-C's note, which I have reviewed and agree with. Code Visit OBSV E&M: [id number] Subsequent observation care L3
--- NOTE | 2018-12-25 13:56 | CASEMGMT ---
Social Work Note TAYLOR reviewed PT/OT notes. Pt walked 220 ft contact guard, assist of 1. TAYLOR met with pt and pt's present in room. Pt and pt's agreeable to pt returning home at discharge with resumption of HHC. RN RADHA Olson updated. Plan: Home with resumption of HHC Aleta Valladares APPAREL SALES LEADER, ASSISTANT NEWS DIRECTOR
--- NOTE | 2018-12-25 14:34 | NURSING ---
student nurse Xiomara charting reviewed for educational learning purposes by rudy
[2018-12-25 15:41] LABS: Bedside Glucose 157 mg/dL (70-110)
[2018-12-25] MEDS: Insulin Lispro 100 UNIT/ML INSULN.PEN SQ (17:14)
[2018-12-25] MEDS: Pramipexole Di-HCl 1 MG Tablet PO ×2 (19:50→21:53)
[2018-12-25] MEDS: Atorvastatin Calcium 10 MG Tablet PO (21:47)
[2018-12-25 22:01] LABS: Bedside Glucose 162 mg/dL (70-110)
[2018-12-26 03:15] VITALS: BP 96/62; PULSE 76; RESP 18; TEMP 36.6; O2SAT 97
[2018-12-26 05:43] LABS: Absolute Lymphocyte Count 0.99 X10^3/ul (0.83-4.51); Absolute Neutrophil Count 4.6 X10^3/uL (2.0-7.7); Basophil# 0.02 X10^3/uL; Basophil% 0.3 % (0-1); Eosinophil# 0.12 X10^3/uL; Eosinophils% 1.9 % (0-5); Hematocrit 34.6 % (40-54); Hemoglobin 11.5 g/dl (13.0-16.5); Lymphocyte # 0.99 X10^3/ul (4.0); Lymphocyte % 15.5 % (19-41); Mean Corp Hgb Conc 33.2 g/gl (32-36); Mean Corpuscular Volume 99.4 fL (80-94); Monocyte# 0.65 X10^3/uL; Monocyte% 10.2 % (0-10); Neutrophil # 4.58 X10^3/uL (2.7-7.7); Neutrophil % 71.9 % (47-70); Platelet Count 91 K/mm3 (150-450); RBC Distribution Width CV 14.7 % (11.6-14.6); RBC Distribution Width SD 51.9 fl (35.1-43.9); Red Blood Count 3.48 M/mm3 (4.6-6.2); White Blood Count 6.4 K/mm3 (4.4-11.0)
[2018-12-26 05:52] LABS: Anion Gap 11 (5-15); BUN 53 mg/dL (7-18); BUN/Creat Ratio 30.1 RATIO (10-20); Chloride 105 mmol/L (98-107); Creatinine, Serum 1.76 mg/dL (0.70-1.30); EST Glomerular Filtration Rate 40 mL/min (>60); Est Glom Filt Rate - Afr Amer 48 mL/min (>60); Estimated Creatinine Clearance 32.34 ml/min; Glucose 95 mg/dL (74-106); Potassium 4.5 mmol/L (3.5-5.1); Sodium Level 135 mmol/L (136-145)
[2018-12-26 06:00] LABS: POSITIVE COUNT NO; POSITIVE DIFFERENTIAL NO; POSITIVE MORPHOLOGY NO
[2018-12-26] MEDS: Heparin Injection (Vial) 5,000 UNIT/ML VIAL 5000 UNIT SC (06:05)
[2018-12-26] MEDS: Levothyroxine 50 MCG Tablet PO (06:05)
[2018-12-26] MEDS: Mexiletine 150 MG Capsule PO (06:05)
[2018-12-26 06:46] LABS: Bedside Glucose 81 mg/dL (70-110)
[2018-12-26] MEDS: Menthol/Lanolin/Calamine/Znox 113 GM Tube 1 APPLIC TOPICAL (08:36)
[2018-12-26] MEDS: Aspirin E.C. 81 MG Tablet PO (08:36)
[2018-12-26] MEDS: LINAGLIPTIN 5 MG TABLET PO (08:37)
[2018-12-26] MEDS: levETIRAcetam 1,000 MG Tablet 1000 MG PO (08:37)
[2018-12-26] MEDS: Magnesium Oxide 400 MG Tablet PO (08:37)
[2018-12-26] MEDS: rifAXIMin 550 MG Tablet PO (08:37)
[2018-12-26] MEDS: Ranolazine 500 MG Tablet 1000 MG PO (08:37)
[2018-12-26] MEDS: Glucerna Shake 120 ML LIQUID PO ×2 (08:39→11:42)
[2018-12-26 09:15] VITALS: BP 102/68; PULSE 80; RESP 16; TEMP 36.3; O2SAT 100
[2018-12-26 10:35] VITALS: BP 85/56; BP 86/52; BP 87/58; PULSE 82; PULSE 83
[2018-12-26 11:00] LABS: Bedside Glucose 127 mg/dL (70-110)
[2018-12-26 11:12] VITALS: O2SAT 96; O2SAT 97
--- NOTE | 2018-12-26 11:47 | CASEMGMT ---
BORDEN form reviewed with at this time. voiced no concerns at this time. Copy of signed form given to . Original filed in chart.
--- NOTE | 2018-12-26 12:16 | CASEMGMT ---
Social Work Note Pt is likely to discharge today. SW spoke with Juan M at [facility] in regards to Palliative Care and updated her it is likely pt is going to discharge home today. Aleta Valladares INDUSTRIAL TRUCK OPERATOR, WAITER/WAITRESS THIRD CLASS
--- NOTE | 2018-12-26 12:24 | DCINST_ITS ---
- Discharge Diagnoses Current Active Problems: Current Active and Chronic Problems (Last Reviewed 11/04/18 @ 15:55 by Ana Cristina Cobos) Hepatic encephalopathy (Acute) Generalized weakness (Acute) You will use the following diet at home:: Cardiac, Other - 2 gm sodium diet Your food should be the consistency of: Regular Discharge Activity: May Not Drive Call your doctor if you observe: Fever of 101 or Higher, Numbness or Tingling, Inability to have a bowel movement, Shortness of breath, Dizziness, Swelling in the ankles Allergies/Adverse Reactions: Allergies amiodarone Allergy (Verified 11/13/18 01:51) dizziness meperidine [From Demerol] Allergy (Verified 11/12/18 20:50) Low blood pressure spironolactone Allergy (Verified 11/12/18 20:50) Nausea simvastatin Adverse Reaction (Mild, Verified 11/12/18 20:50) Myalgias Medications to take at Discharge Aspirin [Aspir 81] 81 mg PO DAILY 11/12/18 Atorvastatin Calcium [Lipitor] 10 mg PO DAILY 11/12/18 Levetiracetam [Keppra] 1,000 mg PO BID 11/12/18 Levothyroxine [Synthroid] 50 mcg PO DAILY 11/12/18 Magnesium Oxide [Mag-Ox 400] 400 mg PO DAILY 11/12/18 Metoprolol Succinate [Toprol Xl] 25 mg PO DAILY 11/12/18 Mexiletine [Mexitil] 150 mg PO TID 11/12/18 Nitroglycerin [Nitrostat] 0.4 mg SL PRN PRN 11/12/18 Ranolazine [Ranexa] 1,000 mg PO BID 11/12/18 Ropinirole HCl [Requip] 2 mg PO 2000 11/12/18 Sitagliptin Phosphate [Januvia] 50 mg PO DAILY 11/12/18 Lactulose [Chronulac] 20 gm PO DAILY #900 ml 11/26/18 Menthol/Lanolin/Calamine/Znox [Calmoseptine Ointment] 1 applic TOPICAL BID tube 11/26/18 Mineral Oil/Petrolatum,White [Eucerin] 1 applic TOPICAL 0600,2200 jar 11/26/18 Rifaximin [Xifaxan] 550 mg PO BID #60 tab 11/26/18 Ropinirole HCl [Requip] 2 mg PO 2300 02/27/19 Bumetanide [Bumex] 1 mg PO DAILY #0 12/26/18 Sacubitril/Valsartan 97-103 mg [Entresto 97 mg-103 mg Tablet] 0.5 tab PO BID #0 12/26/18 Primary Care Physician: Anabella Lomax MD [Primary Care Provider] - Please follow up with your Primary Care Physician in: [place] 2 week Test Results: Test results from this visit will be discussed in further detail at your follow- up appointment, if applicable. Please Follow Up With: Jamshid Sims MD When: in 3-4 weeks for cirrhosis
--- NOTE | 2018-12-26 12:43 | PCM.DC.SUM ---
Discharge Date and Diagnosis Date of Admission: 12/24/18 Date of Discharge: 12/26/18 - Primary Discharge Diagnosis Active and Suspected Problems (Last Reviewed 11/04/18 @ 15:55 by Ana Cristina Cobos) Hepatic encephalopathy (Acute) Generalized weakness (Acute) - Secondary Discharge Diagnosis Chronic Problems (Last Reviewed 11/04/18 @ 15:55 by Ana Cristina Cobos) Cirrhosis of liver (Chronic) Ventricular tachycardia (Chronic) Diabetes mellitus (Chronic) Seizure disorder (Chronic) Atrial fibrillation (Chronic) CKD (chronic kidney disease) stage 4, GFR 15-29 ml/min (Chronic) Pacemaker (Chronic) HLD (hyperlipidemia) (Chronic) Non-ST elevation (NSTEMI) myocardial infarction (Chronic) Angina pectoris (Chronic) CAD (coronary artery disease) (Chronic) Edema (Chronic) Dyspnea (Chronic) Renal disease (Chronic) Fatigue (Chronic) XOCHITL (obstructive sleep apnea) (Chronic) Diabetes mellitus type 2, noninsulin dependent (Chronic) Old myocardial infarction (Chronic) Long-term use of high-risk medication (Chronic) Chronic renal failure (Chronic) Cardiac murmur (Chronic) Hypokalemia (Chronic) Atherosclerotic heart disease of [place] coronary artery without angina pectoris (Chronic) CABG 1988; Reoperation CABG x3 SVG to LAD, SVG to Rt PDA, Radial artery to OM-2 10/08/02; VT ablation @[facility] 01/03/17 [facility] 03/10/2016 Ventricular tachycardia (paroxysmal) (Chronic) ICD (implantable cardioverter-defibrillator) in place (Chronic ~11/2001) Implant 12/10/2001 ICD replacement 06/10/2009, 06/05/2014, Systolic CHF, chronic (Chronic) Cardiomyopathy, ischemic (Chronic) Subdural hematoma (Chronic) CKD (chronic kidney disease), stage II (Chronic) Type II diabetes mellitus, uncontrolled (Chronic) Esophageal reflux (Chronic) HLD (hyperlipidemia) (Chronic) HTN (hypertension) (Chronic) Hypothyroidism (Chronic) Sleep apnea (Chronic) Hospital Course and Treatment Operations: None Summary of Care Provided: The patient is a 78 year old M with history of end-stage liver disease/cirrhosis decompensated with leg edema, hepatic encephalopathy was admitted with generalized weakness, unsteady gait, unable to stand up and dehydration, confusion and disorientation consistent with hepatic encephalopathy. Patient was also short of breath on the day of admission patient also has severe protein calorie malnutrition. The patient was admitted on regular MedSurg floor and treated with IV fluid normal saline. His baseline BUN stays around 41 and creatinine 2.0. Patient creatinine improved from 1.9-1.76. BUN 53. Patient also has other chronic medical conditions including coronary artery disease, status post CABG in , atrial fibrillation status post radiofrequency ablation, CKD stage IV, chronic heart failure status post AICD. Diuretics was adjusted. patient has recently diagnosed cirrhosis about 4 months ago. Further detailed hospital course and management as follows 1. Generalized weakness 2/2 dehydration - PTOT. Recently DC'd from TCU and by home PT/OT. The dose of Entresto was decreased to half tablet at time of discharge and was advised to follow-up with PCP to adjust the dose. Blood pressure is in 90s to upper 80s. Orthostatic vitals are negative. Mild hyponatremia: Sodium is improved to 135. 2. Hx hepatic encephalopathy 2/2 cirrhosis - ammonia not significantly elevated and pt is not confused. Continue xifaxan. Shunt is on lactulose and was advised to take it as needed for confusion/disorientation and hold when he has more than 2 bowel movements/diarrhea. 3. Hx Seizure - keppra 4. CKD IV - on fluids. trend overnight. 5. CAD with prior CABG - continue home meds 6. HTN - stable 7. Hx PAF/ chronic systolic CHF and ischemic CM - has AICD - continue home meds. Diuretics resumed with lower dose and hold it for systolic blood pressure less than 90 or dizziness. Patient is also on Entresto 8. T2DM - SSI 9. XOCHITL - CPAP 10. Hypothyroid - synthroid DVT ppx: heparin Severe protein calorie malnutrition: Discharge medication reconciliation done. Discharge follow-up instructions completed. Discharge process discussed with the patient and all questions were answered to patient's satisfaction. Discussed with the patient and his . Advised to follow-up with GI/guide Dr. Kuo. Patient is not a candidate for transplant evaluation because of multiple cardiac conditions, advanced age and poor nutritional status. Total time spent, exact 35 minutes on discharge meds reconciliation, examination, review of imaging and blood test and discussion with the patient on follow-up instructions. [] Subjective: Patient is awake alert and oriented x3. Patient is ambulatory and walked to the bathroom. Patient has cirrhosis with leg swelling but currently it is mild. No fever or chills. Orthostatic vitals are negative although blood pressure is in low 90s upper 80s. No orthostatic change in heart rate. Patient wants to go home - Physical Exam General: Alert, Oriented x3, Cooperative HEENT: Atraumatic, PERRLA, EOMI, Normocephalic Neck: Supple, No JVD, Negative Carotid Bruits Lungs: Clear to auscultation, Normal air movement Cardiovascular: Regular rate, Regular Rhythm, Normal S1, Normal S2, No murmurs Abdomen: Bowel Sounds Present, Soft, Non Tender, Non-Distended Extremities: Capillary Refill Less than 3 Seconds, Edema Skin: No rashes, No breakdown Musculoskeletal: No Tenderness to Palpation of Joints or Extremities, Arthritic Changes, Muscle Wasting Neurological: Cranial nerves II-XII grossly intact, Deep Tendon Reflexes 2+/4 and Symmetrical, Neuro grossly intact Psych/Mental Status: Normal Affect, Appropriate Vital Signs Temp Pulse Resp BP Pulse Ox 97.4 F L 82 16 87/58 L 97 12/26/18 09:15 12/26/18 10:35 12/26/18 09:15 12/26/18 10:35 12/26/18 11:12 Oxygen Delivery Method Room Air Weight: 181 lb 14.102 oz Body Mass Index (BMI) 28.5 Finger Stick Blood Glucose 249 Orthostatic Vital Signs Start: 12/25/18 10:35 Freq: q24h Status: Active Protocol: Activity Type Activity Date Activity User E-Sign Co-Sign Detail Recorded Client Recorded Date Recorded By Document 12/26/18 10:35 EKATERINA [id number] 12/26/18 11:11 EKATERINA 12/26/18 10:35 Orthostatic Vitals Standing -Blood Pressure (90/60-120/80 mm Hg) 86/52 L -Extremity Use Right Arm -Pulse Rate (60-100 beats/min) 82 Sitting -Blood Pressure (90/60-120/80 mm Hg) 85/56 L -Extremity Use Right Arm -Pulse Rate (60-100 beats/min) 83 Lying -Blood Pressure (90/60-120/80 mm Hg) 87/58 L -Extremity Use Right Arm -Pulse Rate (60-100 beats/min) 82 Intake and Output for Last 24 Hours 12/24/18 12/25/18 12/26/18 23:59 23:59 23:59 Intake Total 996 / 996 300 / 300 Output Total 600 / 600 500 / 500 Balance 396 / 396 -200 / -200 Laboratory Tests Past 24 Hrs 12/26/18 12/26/18 05:26 05:26 WBC 6.4 RBC 3.48 L Hgb 11.5 L Hct 34.6 L MCV 99.4 H MCH 33.0 H MCHC 33.2 RDW 14.7 H RDW Differential 51.9 H Plt Count 91 L MPV 10.0 Immature Gran % (Auto) 0.200 Neut % (Auto) 71.9 H Lymph % (Auto) 15.5 L [place] % (Auto) 10.2 H Eos % (Auto) 1.9 Baso % (Auto) 0.3 Absolute Neuts (auto) 4.6 Absolute Lymphs (auto) 0.99 Total Counted Not Reportable Sodium 135 L Potassium 4.5 Chloride 105 Carbon Dioxide 19.0 L Anion Gap 11 BUN 53 H Creatinine 1.76 H Estim Creat Clear Calc 32.34 Est GFR (MDRD) Af Amer 48 L Est GFR (MDRD) Non-Af 40 L BUN/Creatinine Ratio 30.1 H Glucose 95 Calcium 8.0 L POC Glucose 12/26/18 12/26/18 12/25/18 10:57 06:41 21:40 POC Glucose 127 H 81 162 H 12/25/18 15:36 POC Glucose 157 H Discharge Activity: May Not Drive Call your doctor if you observe: Fever of 101 or Higher, Numbness or Tingling, Inability to have a bowel movement, Shortness of breath, Dizziness, Swelling in the ankles Home Medications: Medications to take at Discharge Aspirin [Aspir 81] 81 mg PO DAILY 11/12/18 Atorvastatin Calcium [Lipitor] 10 mg PO DAILY 11/12/18 Levetiracetam [Keppra] 1,000 mg PO BID 11/12/18 Levothyroxine [Synthroid] 50 mcg PO DAILY 11/12/18 Magnesium Oxide [Mag-Ox 400] 400 mg PO DAILY 11/12/18 Metoprolol Succinate [Toprol Xl] 25 mg PO DAILY 11/12/18 Mexiletine [Mexitil] 150 mg PO TID 11/12/18 Nitroglycerin [Nitrostat] 0.4 mg SL PRN PRN 11/12/18 Ranolazine [Ranexa] 1,000 mg PO BID 11/12/18 Ropinirole HCl [Requip] 2 mg PO 2000 11/12/18 Sitagliptin Phosphate [Januvia] 50 mg PO DAILY 11/12/18 Lactulose [Chronulac] 20 gm PO DAILY #900 ml 11/26/18 Menthol/Lanolin/Calamine/Znox [Calmoseptine Ointment] 1 applic TOPICAL BID tube 11/26/18 Mineral Oil/Petrolatum,White [Eucerin] 1 applic TOPICAL 0600,2200 jar 11/26/18 Rifaximin [Xifaxan] 550 mg PO BID #60 tab 11/26/18 Ropinirole HCl [Requip] 2 mg PO 2300 12/25/18 Bumetanide [Bumex] 1 mg PO DAILY #0 12/26/18 Sacubitril/Valsartan 97-103 mg [Entresto 97 mg-103 mg Tablet] 0.5 tab PO BID #0 12/26/18 Primary Care Physician: Anabella Lomax MD [Primary Care Provider] - Please follow up with your Primary Care Physician in: [place] 2 week Please Follow Up With: Jamshid Sims MD When: in 3-4 weeks for cirrhosis Medical Necessity - Tobacco Use Smoking Status: Former smoker Meaningful Use Info Meaningful Use Diagnoses (Choose all that apply): None applicable Code Visit Inpatient E&M: 64723 Disch Hosp
== END 2018-12-26 14:07 | disposition home or self-care (01) ==
LOC: ED 22:45 → MS3 23:07
PROVIDERS: Physician Assistant; Student in an Organized Health Care Education/Training Program; Emergency Provider Emergency Medicine; Family Provider Internal Medicine; PCP Internal Medicine; Visit Provider Internal Medicine
DX: K72.90 Hepatic failure, unspecified without coma (principal); R53.1 Weakness; G40.909 Epilepsy, unspecified, not intractable, without status epilepticus; G47.33 Obstructive sleep apnea (adult) (pediatric); I25.10 Atherosclerotic heart disease of native coronary artery without angina pectoris; E78.5 Hyperlipidemia, unspecified; N18.4 Chronic kidney disease, stage 4 (severe); I48.2 Chronic atrial fibrillation; E11.22 Type 2 diabetes mellitus with diabetic chronic kidney disease; I25.2 Old myocardial infarction; E03.9 Hypothyroidism, unspecified; I44.7 Left bundle-branch block, unspecified; E86.0 Dehydration; I48.0 Paroxysmal atrial fibrillation; I13.0 Hypertensive heart and chronic kidney disease with heart failure and stage 1 through stage 4 chronic kidney disease, or unspecified chronic kidney disease; I50.22 Chronic systolic (congestive) heart failure; Z95.1 Presence of aortocoronary bypass graft; Z79.899 Other long term (current) drug therapy; Z79.82 Long term (current) use of aspirin; Z87.891 Personal history of nicotine dependence; Z95.810 Presence of automatic (implantable) cardiac defibrillator; E87.1 Hypo-osmolality and hyponatremia; E43 Unspecified severe protein-calorie malnutrition; Z68.28 Body mass index [BMI] 28.0-28.9, adult
CPT/HCPCS: 36415; 70450; 71045; 80048; 80053; 82140; 82962; 83690; 85025; 93005; 96360; 96361; 96372; 97116; 97162; 97165; 97530; 97802; 99218; 99285; J7030; J7040; J7050; A4216; G0378